=== PATIENT | female | born 1975 | race Caucasian/White ===

== ENCOUNTER 2017-11-05 18:01 | Emergency (ER) | payer MEDICAID, SELFPAY ==
[2017-11-05 18:02] VITALS: BP 150/97; PULSE 70; RESP 18; TEMP 36.5; O2SAT 97; BMI 28.7
--- NOTE | 2017-11-05 18:25 | ED.DCSUM_ITS ---
- ER Visit Summary Date of Service: 11/05/17 Chief Complaint: Postoperative infection History of Present Illness: The patient is a [address] Sheffield. She reports that she had a small cyst removed from her left upper eyelid [address] Leblanc. States that yesterday the area became red and painful. She describes a throbbing, tight pain that is 6 out of 10 in severity. Is relieved by ibuprofen and hot compresses. She has been placing Neosporin on the area. She reports that she has expressed a small amount of pus. She denies any change in her vision. No fever or chills. Physical Examination: Vitals: Stable. Afebrile. General: Well-nourished and well-developed. Head: Normocephalic atraumatic. Left eye: There is a 2 mm scab to the medial side of her upper eyelid with approximately 0.5 cm of surrounding erythema. There is no fluctuance or purulent drainage that I can express. She has no conjunctival injection. Extraocular motions are intact. Neck: Supple, no lymphadenopathy. No JVD. Nontender. Cardiovascular: Regular rate and rhythm. No murmurs. Respiratory: No respiratory distress. Clear to auscultation bilaterally. Abdominal: Soft, nontender, nondistended, normal bowel sounds. No guarding, rebound, or peritoneal signs. Back: Nontender. Extremities: Nontender, no edema. Skin: Normal color, no rash. Neurologic: Alert and oriented ?3. Cranial nerves II through XII are intact. Normal strength and sensation. Psych: Normal affect. Emergency Department Course and Treatment: Patient was given a dose of doxycycline and [place]. At this time I do not think me performing an I&D is in her best interest. Treatment Plan: She will be discharged on doxycycline and 12 [place]. Instructed to use warm compresses. Follow-up with Dr. Leblanc in 1-2 days for another exam. Disposition: To home in improved and stable condition. Impression: 1. 5 days status post left upper eyelid surgery. 2. Cellulitis left upper eyelid. This note was generated with [employer] dictation software. It may contain incorrect words, spelling, and punctuation that were not noted in review of the chart prior to signing ED Disposition - Plan for ED Patient: Disposition: Home or Assisted Living Chief Complaint: Eye Problem Instructions: ED Staph Infec Abx Tx Only Prescriptions: Hydrocodone Bitart/Apap 5-325 [[place] 5/325] 1 - 2 tablet PO Q4H PRN PRN 3 Days # 12 tablet PRN Reason: Pain Doxycycline Monohydrate 100 mg PO BID #20 capsule Additional Instructions: Follow-up with Dr. Leblanc as soon as possible for another exam.
[2017-11-05] MEDS: Doxycycline 100 MG CAPSULE PO (18:38)
[2017-11-05] MEDS: HYDROcodone Bitartrate/Apap 5/325 Tablet PO (18:38)
== END 2017-11-05 18:40 | disposition home or self-care (01) ==
LOC: ED 18:33
PROVIDERS: Emergency Provider Emergency Medicine; Family Provider Family Medicine; PCP Family Medicine
DX: T81.4XXA Infection following a procedure, initial encounter (principal); H00.034 Abscess of left upper eyelid; I10 Essential (primary) hypertension
CPT/HCPCS: 99283

== ENCOUNTER 2018-01-13 22:07 | Emergency (ER) | payer MEDICAID, SELFPAY ==
[2018-01-13 22:09] VITALS: BP 141/102; PULSE 72; RESP 19; TEMP 36.8; O2SAT 96; BMI 28.7
--- NOTE | 2018-01-13 22:13 | EKG12_ITS ---
Test Reason : CP Blood Pressure : / mmHG Vent. Rate : 072 BPM Atrial Rate : 072 BPM P-R Int : 186 ms QRS Dur : 078 ms QT Int : 380 ms P-R-T Axes : 041 006 028 degrees QTc Int : 416 ms Normal sinus rhythm Normal ECG Confirmed by SEAN EUBANKS, ARIANA ([id number]), supervising editor trailer REAGAN LENTZ ([id number]) on 01/15/2018 3:25:19 PM Referred By: MARILU SHER Confirmed By:ARIANA ESTRADA MD
--- NOTE | 2018-01-13 22:31 | ED.RN ---
PT'S BOYFRIEND ALERTED THIS NURSE THAT THE PT WANTED TO TALK.PT STATED THAT SHE WANTED TO LEAVE NOW.PT STATED THAT SINCE SHE HAS HAD THE EKG,SHE FEELS FINE AND DIDN'T WANT TO COME IN THE FIRST PLACE.PT ADAMANT THAT HER IV BE REMOVED AND SHE BE IS GOING HOME.IV DCD AND THEN PT GOT DRESSED AND LEFT WITH FAMILY.
== END 2018-01-13 22:34 | disposition left against medical advice (07) ==
LOC: ED 22:30
PROVIDERS: Emergency Provider Emergency Medicine; Family Provider Family Medicine; PCP Family Medicine
DX: R69 Illness, unspecified (principal)
CPT/HCPCS: 93005; 99283; J7030; A4216

== ENCOUNTER 2018-08-26 17:11 | Emergency (ER) | payer MEDICAID, SELFPAY ==
[2018-08-26 17:14] VITALS: BP 149/103; PULSE 72; RESP 16; TEMP 36.6; O2SAT 100; BMI 27.4
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
[2018-08-26 18:48] VITALS: BP 108/67; PULSE 52; RESP 16; O2SAT 99
[2018-08-26] MEDS: HYDROcodone Bitartrate/Apap 5/325 Tablet PO (18:49)
--- OUTSIDE RECORDS SUMMARY | 2018-10-08 16:37 | XMS RPT_ITS ---
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 BMI 28.17 kg/m? Last 4 Encounter Wt Readings: Date: Wt: 07/26/2018 72.1 kg (159 lb) 07/12/2018 70.9 kg (156 lb 3.2 oz) 04/23/2018 71.2 kg (157 lb) 01/29/2018 74.4 kg (164 lb) PHYSICAL EXAMINATION: General appearance: Well appearing, alert, in no acute distress, well-hydrated, well nourished. Skin: Skin color, texture, turgor normal, no suspicious rashes or lesions Head: Normocephalic, no masses, lesions, tenderness or abnormalities, scalp is tender Eyes: Anicteric sclera. Pupils are equally round and reactive to light. Extraocular movements are intact. Ears: External ears normal, canals clear Nose/Sinuses: Nares normal, septum midline, mucosa normal, no drainage or sinus tenderness Oropharynx: Lips, mucosa, and tongue normal, teeth and gums normal, oropharynx normal Neck: Supple, no adenopathy; thyroid symmetric, normal size, no bruits Back: Normal exam Lungs: Lungs clear to auscultation. No wheezing, rhonchi, rales Heart: RRR without murmur, gallop, or rubs. No ectopy Abdomen: Normal abdominal exam, Abdomen soft, non-tender. Bowel sounds normal. No masses, organomegaly Extremities: No deformities, edema, skin discoloration, clubbing or cyanosis. Good capillary refill. Musculoskeletal: No joint swelling, deformity, or tenderness Peripheral pulses: Normal Neuro: Gait normal. Reflexes normal and symmetric. Sensation grossly intact. PSYCH:Affect normal. Normal speech. Normal eye contact ASSESSMENT/PLAN: 1. Fibromyalgia - ICD9: 729.1, ICD10: M79.7 (primary diagnosis) - check labs. See pain management of her choosing. Avoid opiates. - SED RATE WESTERGREN - C-REACTIVE PROTEIN (CRP) - KELSY BY IFA SCREEN - RHEUMATOID FACTOR BL - CONSULT TO PAIN MGT ANESTHESIA 2. Convulsions, unspecified convulsion type (HCC) - ICD9: 780.39, ICD10: R56.9 - call if recurds. 3. Essential hypertension - ICD9: 401.9, ICD10: I10 - poor control - Recommended regular aerobic exercise. - Recommend home blood pressure monitoring, to bring results in on next visit - Goal of BP <130/80 - CBC + DIFF - BASIC METABOLIC PNL - HYDROCHLOROTHIAZIDE 12.5 MG CAPSULE 4. Hyperlipidemia with target LDL less than 130 - ICD9: 272.4, ICD10: E78.5 - stop statin. - CK CREATINE KINASE 5. Anxiety state - ICD9: 300.00, ICD10: F41.1 - follow progress. 6. Headache, unspecified headache type - ICD9: 784.0, ICD10: R51 - add hctz. Discussed risks and benefits of new medication with the patient. Advised them to call if any side effects or questions. - TIZANIDINE 4 MG TABLET - HYDROCHLOROTHIAZIDE 12.5 MG CAPSULE Guillermo Sheffield MD RTO in one month and prn. Referring Provider: GUILLERMO SHEFFIELD [[id number]] Allergies As of Date: 07/26/2018 (No Known Allergies) Date Reviewed: 07/26/2018 Reviewed by: Lilia Marrero Ma - Fully Assessed Reason for Visit: Headache [52] Primary Visit Diagnosis:Fibromyalgia [M79.7] Other Visit Diagnoses:Convulsions, unspecified convulsion type (HCC) [R56.9] Essential hypertension [I10] Hyperlipidemia with target LDL less than 130 [E78.5] Anxiety state [F41.1] Headache, unspecified headache type [R51] Order(s):CK CREATINE KINASE [SQCK] Order #: [id number] FUTURE SED RATE WESTERGREN [SQWSR] Order #: [id number] FUTURE C-REACTIVE PROTEIN (CRP) [SQCRP] Order #: [id number] FUTURE KELSY BY IFA SCREEN [SQANAIFS] Order #: [id number] FUTURE RHEUMATOID FACTOR BL [SQRF] Order #: [id number] FUTURE CONSULT TO PAIN MGT ANESTHESIA [20000106] Order #: [id number]: 1 CBC + DIFF [SQCBCDIF] Order #: [id number] FUTURE BASIC METABOLIC PNL [SQBMP] Order #: [id number] FUTURE tiZANidine (ZANAFLEX) 4 mg tabletTake 1 tablet by mouth every 8 hours as needed.Disp: 20 tabletRfl: 0 Hydrochlorothiazide 12.5 mg capsuleTake 1 capsule by mouth once daily.Disp: 30 capsuleRfl: 12 Prescriptions as of 07/26/2018 Sig: IBUPROFEN 600 MG TABLET Take 1 tablet by mouth every * METOPROLOL TARTRATE 50 MG TAB* Take 1 tablet by mouth twice * RANITIDINE 150 MG TABLET Take 150 mg by mouth as neede* CHOLECALCIFEROL (VITAMIN D3) * Take 1 capsule by mouth once * TIZANIDINE 4 MG TABLET Take 1 tablet by mouth every * HYDROCHLOROTHIAZIDE 12.5 MG C* Take 1 capsule by mouth once * Problem List As Of Date 07/26/2018 Noted Resolved Anxiety state [F41.1] INVALID FOR* Other acne [L70.8] INVALID FOR* Pain in joint, lower leg [M25.569] INVALID FOR* Backache, unspecified [M54.9] INVALID FOR* More... Hyperlipidemia with target LDL less than 130 [E*INVALID FOR* HTN (hypertension) [I10] INVALID FOR*04/04/2016 Marijuana use [F12.90] INVALID FOR* More... 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 Mostly on the right side. Patient c/o blurry vision, photosensitivity, nausea, vomiting. CHRONIC PAIN: Patient is currently taking: Ibuprofen 600 mg every 6 hours, Flexeril at night to help her sleep. Has previously seen specialist who concurs with diagnosis: Pain manaegment. Discussed abuse potential of medications: Yes. History of diversion or medications abuse: No. Have check oarrs report: Yes. Has signed a controlled substance agreement: No. Has done urine tox screens: No. Pain is rated (on scale of 1-10): off the scale, 15, I feel like I was hit by a truck. Alternatives to narcotic pain meds tried: pain block injections in the past for sciatica HTN: Patient is compliant with meds Yes Monitors bp at home: No. Denies side effects: Yes. Chest pain: No. Dyspnea: No. Edema: sometimes. Palpitations: On occasion. Syncope: No. Headache: Yes. Dizziness: No. BP KO READIN 158/112 54 2. 168/114 57 3. 154/93 54 4. 155/105 57 5. 140/97 66 6. ERROR/143 59 Prescriptions ordered this encounter Disp Refills Start End TIZANIDINE 4 MG TABLET 20 t* 0 07/26/2018 Route: ORAL Sig: Take 1 tablet by mouth every 8 hours as needed. HYDROCHLOROTHIAZIDE 12.5 MG CAPSULE 30 c* 12 07/26/2018 Route: ORAL Sig: Take 1 capsule by mouth once daily. Medications Discontinued During This Encounter COMPOUNDED PRESCRIPTION 1 Ea* 0 11/15/2017 07/26/2018 Class: Print RX Sig: Massage Therapy: Eval and Treat. Dx: Headaches (CT brain and xray cervical spine normal) Disc: Cost of medication escitalopram oxalate (LEXAPRO) 10 mg* 30 t* 2 02/01/2018 07/26/2018 Route: ORAL Sig: Take 1 tablet by mouth once daily. Disc: Side Effects simvastatin (ZOCOR) 10 mg tablet 90 t* 1 05/01/2018 07/26/2018 Cmt: Please consider 90 day supplies to promote better adherence Route: ORAL Sig: TAKE 1 TABLET BY MOUTH ONCE DAILY Disc: Reason for discontinue is not on file. cyclobenzaprine (FLEXERIL) 10 mg tab* 30 t* 0 07/25/2018 07/26/2018 Route: ORAL Sig: Take 1 tablet by mouth twice daily as needed. Disc: Reason for discontinue is not on file. Disposition: Return in about 2 weeks (around 08/09/2018). Follow-up and Disposition History Recorded Encounter Status:Closed by GUILLERMO SHEFFIELD MD on 07/26/18 [facility] Observed: 07/24/2018 Status: COMPLETED Source: [facility] 12:00 AM [facility] REPOSITORY Tele[facility] INDIGO MEIER ([id number]) 1975 F Date Time Provider Department 07/24/18 GUILLERMO SHEFFIELD [facility] During your visit today, we recorded the following information about you: Jeannie Plaza, RN, RN 07/24/2018 4:09 PM Signed Pt called to report that her daughter had head lice and was treated and now the pt has head lice. Pt wanting to know if pcp will call a Rx into [facility]. Guillermo Sheffield MD 07/24/2018 5:08 PM Signed rx called in Allergies As of Date: 07/24/2018 (No Known Allergies) Date Reviewed: 07/12/2018 Reviewed by: Moriah ([facility]) Kianna - Fully Assessed Reason for Visit: head lice [Other] Order(s):Malathion 0.5 % lotionApply 1 application to affected area one time only for 1 dose. As directedDisp: 59 mLRfl: 1 Prescriptions as of 07/24/2018 Sig: MALATHION 0.5 % LOTION Apply 1 application to affect* SIMVASTATIN 10 MG TABLET TAKE 1 TABLET BY MOUTH ONCE D* METOPROLOL TARTRATE 50 MG TAB* Take 1 tablet by mouth twice * ESCITALOPRAM 10 MG TABLET Take 1 tablet by mouth once d* RANITIDINE 150 MG TABLET Take 150 mg by mouth as neede* COMPOUNDED PRESCRIPTION Massage Therapy: Eval and Luis Felipe* CHOLECALCIFEROL (VITAMIN D3) * Take 1 capsule by mouth once * CYCLOBENZAPRINE 10 MG TABLET Take 1 tablet by mouth twice * Problem List As Of Date 07/24/2018 Noted Resolved Anxiety state [F41.1] INVALID FOR* Other acne [L70.8] INVALID FOR* Pain in joint, lower leg [M25.569] INVALID FOR* Backache, unspecified [M54.9] INVALID FOR* More... Hyperlipidemia with target LDL less than 130 [E*INVALID FOR* HTN (hypertension) [I10] INVALID FOR*04/04/2016 Marijuana use [F12.90] INVALID FOR* More... 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 As directed Encounter Status:Closed by GUILLERMO SHEFFIELD MD on 07/24/18 GROUP A STREP BY Collected: 07/12/2018 Status: F Source: PEN ARGYL PCR 4:14 PM [facility] REPOSITORY TYPE CODE TESTS RESULT OUT OF REFERENCE UNITS RANGE LAB GASSRC Throat Swab GAS Specimen Source LAB PCRGAS Negative for Group A Strep Group A PCR Streptococcus by PCR. Result Comment: This test was developed and its performance characteristics determined by [facility] [place] ([facility] It has not been cleared or approved by the FDA. [facility] is regulated under CLIA as qualified to perform high-complexity testing. This test is used for clinical purposes. It should not be regarded as inv estigational or for research. Performed By: #### GASPCR #### [facility] [address] [place], [place] [address] PROGRESS Observed: 07/12/2018 Status: COMPLETED Source: PEN [facility] 3:55 PM [facility] REPOSITORY HNO ID: [id number] Author: Moriah Jarrett) Kianna Service: (none) Author Type: Nurse Practitioner Type: Progress Notes Filed: 07/12/2018 4:16 PM Note Text: Subjective HPI Indigo Meier is a 42 year old female who presents with a sore throat for a week. Sick contacts include a daughter. She has not taken any medication. Review of Systems Constitutional: Negative. Negative for fever. HENT: Positive for sore throat. Negative for congestion. Respiratory: Positive for cough. Gastrointestinal: Positive for diarrhea. Negative for abdominal pain, nausea and vomiting. Skin: Negative for rash. BP 122/88 Pulse 67 Temp 36.8 ?C (98.3 ?F) (Left Tympanic) Resp 16 Wt 70.9 kg (156 lb 3.2 oz) SpO2 99% BMI 27.67 kg/m? PAST MEDICAL HISTORY Diagnosis Date - Anxiety generalized anxiety AND panic disorder (diagnosed by PCP) - Chronic back pain mild scolosis and sciatica AND SI joint locks up; was seeing pain management, now sees PCP - GERD (gastroesophageal reflux disease) - Hyperlipidemia 2011 - Hypertension - Marijuana use - Vertigo PAST SURGICAL HISTORY Procedure Laterality Date - LIGATE FALLOPIAN TUBE Tubal ligation - REMOVAL GALLBLADDER Cholecystectomy ALLERGIES Patient has no known allergies. MEDICATIONS simvastatin (ZOCOR) 10 mg tablet TAKE 1 TABLET BY MOUTH ONCE DAILY metoprolol tartrate, short acting, (LOPRESSOR) 50 mg tablet Take 1 tablet by mouth twice daily. escitalopram oxalate (LEXAPRO) 10 mg tablet Take 1 tablet by mouth once daily. ranitidine (ZANTAC) 150 mg tablet Take 150 mg by mouth as needed. COMPOUNDED PRESCRIPTION Massage Therapy: Eval and Treat. Dx: Headaches(CT brain and xray cervical spine normal) Cholecalciferol, Vitamin D3, 1,000 unit cap Take 1 capsule by mouth once daily. cyclobenzaprine (FLEXERIL) 10 mg tablet Take 1 tablet by mouth twice daily as needed. FAMILY HISTORY Problem Relation Age of Onset - Hypertension Mother - Hyperlipidemia Mother - None Father - Diabetes Brother - Hyperlipidemia Brother - Asthma Son - Allergies Son - Allergies Son - Cancer Sister 41 cervical, ?lymph - Diabetes Sister Social History Substance Use Topics - Smoking status: Never Smoker - Smokeless tobacco: Never Used - Alcohol use No Objective Physical Exam Constitutional: She is well-developed, well-nourished, and in no distress. HENT: Right Ear: Tympanic membrane, external ear and ear canal normal. Left Ear: Tympanic membrane, external ear and ear canal normal. Nose: Nose normal. No rhinorrhea. Mouth/Throat: Uvula is midline, oropharynx is clear and moist and mucous membranes are normal. Mucous membranes are not pale and not dry. No oropharyngeal exudate, posterior oropharyngeal edema or posterior oropharyngeal erythema. Eyes: Conjunctivae are normal. Right eye exhibits no discharge. Left eye exhibits no discharge. Cardiovascular: Normal rate, regular rhythm and normal heart sounds. Pulmonary/Chest: Effort normal and breath sounds normal. No respiratory distress. She has no wheezes. She has no rales. Neurological: She is alert. Skin: Skin is warm and dry. No rash noted. No erythema. Nursing note and vitals reviewed. ASSESSMENT/PLAN: 1. Sore throat - ICD9: 462, ICD10: J02.9 - suspect viral - Rapid Strep negative in the office today and Throat culture pending - Discussed supportive care treatment with fluids, rest and analgesia. - The patient may also use warm salt water gargles, throat lozenges and/or OTC throat spray as needed. - Call back if drooling, increased temperature, symptoms of dehydration and/or still sick in one week - RAPID STREP TEST B/O - GROUP A STREPTOCOCCUS BY PCR - Follow-up with your PCP in 3-5 days if symptoms have not improved or sooner if symptoms worsen - Discussed red flags and need for immediate medical evaluation if any occur. - Discussed supportive care treatment with fluids, rest and analgesia. - Discussed expected course of illness Moriah Hutchison APRN.[employer] OPERATOR CNOV Observed: 07/12/2018 Status: COMPLETED Source: PEN [facility]GYL 3:45 PM [facility] REPOSITORY Office Visit ([facility]) INDIGO MEIER ([id number]) 1975 F Date Time Provider Department 07/12/18 3:45 PM MORIAH HUTCHISON ([facility]) [facility] During your visit today, we recorded the following information about you: Temperature Pulse Respiration Blood pressure 98.3 degrees 67/minute 16/minute 122/88 Weight 70.9 kg Moriah Hutchison APRN.CNP 07/12/2018 4:16 PM Signed Subjective HPI Indigo Meier is a 42 year old female who presents with a sore throat for a week. Sick contacts include a daughter. She has not taken any medication. Review of Systems Constitutional: Negative. Negative for fever. HENT: Positive for sore throat. Negative for congestion. Respiratory: Positive for cough. Gastrointestinal: Positive for diarrhea. Negative for abdominal pain, nausea and vomiting. Skin: Negative for rash. BP 122/88 Pulse 67 Temp 36.8 ?C (98.3 ?F) (Left Tympanic) Resp 16 Wt 70.9 kg (156 lb 3.2 oz) SpO2 99% BMI 27.67 kg/m? PAST MEDICAL HISTORY Diagnosis Date - Anxiety generalized anxiety AND panic disorder (diagnosed by PCP) - Chronic back pain mild scolosis and sciatica AND SI joint locks up; was seeing pain management, now sees PCP - GERD (gastroesophageal reflux disease) - Hyperlipidemia 2011 - Hypertension - Marijuana use - Vertigo PAST SURGICAL HISTORY Procedure Laterality Date - LIGATE FALLOPIAN TUBE Tubal ligation - REMOVAL GALLBLADDER Cholecystectomy ALLERGIES Patient has no known allergies. MEDICATIONS simvastatin (ZOCOR) 10 mg tablet TAKE 1 TABLET BY MOUTH ONCE DAILY metoprolol tartrate, short acting, (LOPRESSOR) 50 mg tablet Take 1 tablet by mouth twice daily. escitalopram oxalate (LEXAPRO) 10 mg tablet Take 1 tablet by mouth once daily. ranitidine (ZANTAC) 150 mg tablet Take 150 mg by mouth as needed. COMPOUNDED PRESCRIPTION Massage Therapy: Eval and Treat. Dx: Headaches(CT brain and xray cervical spine normal) Cholecalciferol, Vitamin D3, 1,000 unit cap Take 1 capsule by mouth once daily. cyclobenzaprine (FLEXERIL) 10 mg tablet Take 1 tablet by mouth twice daily as needed. FAMILY HISTORY Problem Relation Age of Onset - Hypertension Mother - Hyperlipidemia Mother - None Father - Diabetes Brother - Hyperlipidemia Brother - Asthma Son - Allergies Son - Allergies Son - Cancer Sister 41 cervical, ?lymph - Diabetes Sister Social History Substance Use Topics - Smoking status: Never Smoker - Smokeless tobacco: Never Used - Alcohol use No Objective Physical Exam Constitutional: She is well-developed, well-nourished, and in no distress. HENT: Right Ear: Tympanic membrane, external ear and ear canal normal. Left Ear: Tympanic membrane, external ear and ear canal normal. Nose: Nose normal. No rhinorrhea. Mouth/Throat: Uvula is midline, oropharynx is clear and moist and mucous membranes are normal. Mucous membranes are not pale and not dry. No oropharyngeal exudate, posterior oropharyngeal edema or posterior oropharyngeal erythema. Eyes: Conjunctivae are normal. Right eye exhibits no discharge. Left eye exhibits no discharge. Cardiovascular: Normal rate, regular rhythm and normal heart sounds. Pulmonary/Chest: Effort normal and breath sounds normal. No respiratory distress. She has no wheezes. She has no rales. Neurological: She is alert. Skin: Skin is warm and dry. No rash noted. No erythema. Nursing note and vitals reviewed. ASSESSMENT/PLAN: 1. Sore throat - ICD9: 462, ICD10: J02.9 - suspect viral - Rapid Strep negative in the office today and Throat culture pending - Discussed supportive care treatment with fluids, rest and analgesia. - The patient may also use warm salt water gargles, throat lozenges and/or OTC throat spray as needed. - Call back if drooling, increased temperature, symptoms of dehydration and/or still sick in one week - RAPID STREP TEST B/O - GROUP A STREPTOCOCCUS BY PCR - Follow-up with your PCP in 3-5 days if symptoms have not improved or sooner if symptoms worsen - Discussed red flags and need for immediate medical evaluation if any occur. - Discussed supportive care treatment with fluids, rest and analgesia. - Discussed expected course of illness MIGUEL Haq APRN.CNP 07/12/2018 4:09 PM Signed ASSESSMENT/PLAN: 1. Sore throat - ICD9: 462, ICD10: J02.9 - suspect viral - Rapid Strep negative in the office today and Throat culture pending - Discussed supportive care treatment with fluids, rest and analgesia. - The patient may also use warm salt water gargles, throat lozenges and/or OTC throat spray as needed. - Call back if drooling, increased temperature, symptoms of dehydration and/or still sick in one week - RAPID STREP TEST B/O - GROUP A STREPTOCOCCUS BY PCR - Follow-up with your PCP in 3-5 days if symptoms have not improved or sooner if symptoms worsen - Discussed red flags and need for immediate medical evaluation if any occur. - Discussed supportive care treatment with fluids, rest and analgesia. - Discussed expected course of illness Moriah Hutchison APRN.CNP SORE THROAT INSTRUCTIONS SORE THROAT OVERVIEW - Sore throat is a common problem during childhood, and is usually the result of a bacterial or viral infection. Although sore throat usually resolves without complications, it sometimes requires treatment with an antibiotic. There are some less common causes of sore throat that are serious or even life-threatening. This topic will discuss the most common causes and treatments of sore throat in children, as well as the warning signs of more serious conditions. SORE THROAT CAUSES - The most likely cause of a child's sore throat depends upon the child's age, the season, and the geographic area. While viruses are the most common cause of sore throat, bacteria are another common cause. Bacteria and viruses are spread from one person to another through hand contact. Hands get contaminated when the sick individual touches their nose or mouth and then touches another person directly (mqwn-uv-esrd contact) or indirectly (pdda-kg-xvggug, such as doorknob, telephone, toys). It is difficult to determine the cause of sore throat based upon symptoms alone; an examination and laboratory test are recommended in most cases Viruses - There are many viruses that can cause pain and swelling of the throat. The most common include viruses that cause sore throat as part of an upper respiratory infection, such as the common cold. Other viruses that cause sore throat include influenza, adenovirus, and Stevo-Mckeon virus (the cause of mononucleosis). Symptoms - Symptoms that may occur with a viral infection can include a runny nose and congestion, irritation or redness of the eyes, cough, hoarseness, soreness in the roof of the mouth, a skin rash, or diarrhea. In addition, children with viral infections may have a fever and may feel miserable. A high fever does not necessarily mean that the child has a bacterial infection. Group A streptococcus - Group A streptococcus (GAS) is the name of the bacterium that causes strep throat. Although other bacteria can cause a sore throat, GAS is the most common bacterial cause; up to 30 percent of children with a sore throat will have GAS. Strep throat usually occurs during the winter and early spring, and is most common in school-age children and their younger siblings. Symptoms - Symptoms of strep throat in children older than 3 years often develop suddenly and include fever (temperature ?100.4?F or 38?C), headache, abdominal pain, nausea, and vomiting. Other symptoms can include swollen glands in the neck, white patches of pus in the back or sides of the throat, small red spots on the roof of the mouth, and swelling of the uvula. A cough and cold are not commonly seen in children with strep throat. Strep throat is uncommon in children younger than age 2 to 3 years. However, GAS infection can occur in younger children, and may cause a runny nose and congestion that is prolonged, low-grade fever (?101?F or 38.3?C), and tender glands in the neck. Infants younger than 1 year may be fussy and have a decreased appetite and low-grade fever. SORE THROAT TREATMENT - The treatment of sore throat depends upon the cause; strep throat is treated with an antibiotic while viral pharyngitis is treated with rest, pain relievers, and other measures to reduce symptoms. Strep throat - Strep throat is usually treated with an antibiotic, such as penicillin, or an antibiotic similar to penicillin (eg, amoxicillin). Children who are allergic to penicillin will be given an alternate antibiotic. The antibiotic is usually given in pill or liquid form two or three times per day. A one-time injection is also available, and may be recommended if a child is unwilling to take an oral medication. After completing 24 hours of antibiotics, the child is no longer contagious and may return to school. Symptoms usually improve within 1 to 2 days. However, it is important for the child to finish the entire course of treatment (usually 10 days). If a child does not begin to improve or worsens within 3 days, the child should be reevaluated. Throat pain can be treated with a non-prescription pain medication, if needed. (See 'Pain medications' below.) In addition, parents should monitor their child for dehydration, which can develop if the child is not willing to drink or eat due to a sore throat. (See 'Monitor for dehydration' below.) Viral throat pain - Sore throat caused by viral infections usually last 4 to 5 days. During this time, treatments to reduce pain may be helpful but will not help to eliminate the virus. Antibiotics do not improve throat pain caused by a virus and are not recommended. A child with a viral infection is usually allowed to return to school when there has been no fever for 24 hours and the child feels well enough to pay attention. Pain medications - Throat pain can be treated with a mild pain reliever such as acetaminophen (Tylenol?) or a non-steroidal anti-inflammatory agent such as ibuprofen (Motrin?). These medications should be dosed according to weight, not age. Aspirin is not recommended for children <18 years due to the risk of a potentially serious condition known as Christiano syndrome. Monitor for dehydration - Some children with a sore throat are reluctant to drink or eat due to pain. Drinking less fluid can lead to dehydration. To reduce the risk of dehydration, parents can offer warm or cold liquids. (See 'Other interventions' below.) Signs and symptoms of mild dehydration include a slightly dry mouth, increased thirst, and decreased urine output (one wet diaper or void in six hours). Signs of moderate or severe dehydration include decreased urine output (less than one wet diaper or void in six hours), lack of tears when crying, dry mouth, and sunken eyes. A child who is moderately or severely dehydrated should be evaluated by a healthcare provider as soon as possible to determine if treatment is needed. Oral rinses- Salt-water gargles are an old stand-by for relief of throat pain. It is not clear if this treatment is effective, but it is unlikely to be harmful. Most recipes suggest 1/4 to 1/2 teaspoon of salt per cup (8 ounces) of warm water. The water should be gargled and then spit out (not swallowed). Children younger than six to eight years are not able to gargle properly. An oral rinse composed of equal parts of diphenhydramine (Benadryl? liquid) and Maalox? (magnesium hydroxide, aluminum hydroxide, and simethicone) may be helpful for pain caused by a sore mouth or ulcers in the mouth. Children older than six to eight years may swish and spit (not swallow) the mixture. Sprays - Sprays containing topical anesthetics are available to treat sore throat. However, such sprays are no more effective than sucking on hard candy. In addition, a common anesthetic ingredient, benzocaine, can cause allergic reactions. We do not recommend throat sprays for children. Lozenges - A variety of medicated throat lozenges are available to relieve dryness or pain. However, it is not clear that lozenges work any better than hard candy. We do not recommend throat lozenges for children, especially children younger than 3 to 4 years, who can choke. Sucking on hard candy may provide some relief for children older than 3 to 4 years, who are not at risk for choking. Other interventions - Other interventions include sipping warm beverages (eg, honey or lemon tea, chicken soup), cold beverages, or eating cold or frozen desserts (eg, ice cream, popsicles). These treatments are safe for children. Honey should not be given to children younger than 12 months due to the potential risk of botulism poisoning. Alternative therapies - Health food stores, vitamin outlets, and Internet Web sites offer alternative treatments for relief of sore throat pain. We do not recommend these treatments due to the risks of contamination with pesticides/herbicides, inaccurate labeling and dosing information, and a lack of studies showing that these treatments are safe and effective. SORE THROAT PREVENTION - Hand washing is an essential and highly effective way to prevent the spread of infection. Hands should be wet with water and plain soap, and rubbed together for 15 to 30 seconds. Special attention should be paid to the fingernails, between the fingers, and the wrists. Hands should be rinsed thoroughly, and dried with a single use towel. Alcohol-based hand rubs are a good alternative for disinfecting hands if a sink is not available. Hand rubs should be spread over the entire surface of hands, fingers, and wrists until dry, and may be used several times. These rubs can be used repeatedly without skin irritation or loss of effectiveness. Hand rubs are available as a liquid or wipe in small, portable sizes that are easy to carry in a pocket or handbag. When a sink is available, visibly soiled hands should be washed with soap and water. Hands should be washed after coughing, blowing the nose or sneezing. While it is not always possible to limit contact with a person who is sick, avoiding touching the eyes, nose, or mouth after direct contact can help to prevent the spread of infection. In addition, tissues should be used to cover the mouth when sneezing or coughing. These used tissues should be disposed of promptly. Sneezing/coughing into the sleeve of one's clothing (at the inner elbow) is another means of containing sprays of saliva and secretions and has the advantage of not contaminating the hands. WHEN TO SEEK HELP - Parents of a child with throat pain and one or more of the following should contact their healthcare provider immediately: Difficulty swallowing or breathing Excessive drooling in an infant or young child Temperature ?101?F or 38.3?C Swelling of the neck Child is unable or unwilling to drink or eat Voice sounds muffled Child has a stiff neck or difficulty opening the mouth WHERE TO GET MORE INFORMATION - Your child's healthcare provider is the best source of information for questions and concerns related to your child's medical problem. This article will be updated as needed every four months on our web site ([email or web address]). Information below was obtained from Up to date Last literature review version 19.2: January 2011 This topic last updated: May 18, 2010 Referring Provider: SELF [200] Allergies As of Date: 07/12/2018 (No Known Allergies) Date Reviewed: 07/12/2018 Reviewed by: Moriah ([facility]) Kianna - Fully Assessed Reason for Visit: Sore Throat [200] Primary Visit Diagnosis:Sore throat [J02.9] Order(s):RAPID STREP TEST B/O [8763525] Order #: [id number] GROUP A STREPTOCOCCUS BY PCR [SQGASPCR] Order #: [id number] Prescriptions as of 07/12/2018 Sig: SIMVASTATIN 10 MG TABLET TAKE 1 TABLET BY MOUTH ONCE D* METOPROLOL TARTRATE 50 MG TAB* Take 1 tablet by mouth twice * ESCITALOPRAM 10 MG TABLET Take 1 tablet by mouth once d* RANITIDINE 150 MG TABLET Take 150 mg by mouth as neede* COMPOUNDED PRESCRIPTION Massage Therapy: Eval and Luis Felipe* CHOLECALCIFEROL (VITAMIN D3) * Take 1 capsule by mouth once * CYCLOBENZAPRINE 10 MG TABLET Take 1 tablet by mouth twice * Problem List As Of Date 07/12/2018 Noted Resolved Anxiety state [F41.1] INVALID FOR* Other acne [L70.8] INVALID FOR* Pain in joint, lower leg [M25.569] INVALID FOR* Backache, unspecified [M54.9] INVALID FOR* More... Hyperlipidemia with target LDL less than 130 [E*INVALID FOR* HTN (hypertension) [I10] INVALID FOR*04/04/2016 Marijuana use [F12.90] INVALID FOR* More... 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 Sore throat - ICD9: 462, ICD10: J02.9 - suspect viral - Rapid Strep negative in the office today and Throat culture pending - Discussed supportive care treatment with fluids, rest and analgesia. - The patient may also use warm salt water gargles, throat lozenges and/or OTC throat spray as needed. - Call back if drooling, increased temperature, symptoms of dehydration and/or still sick in one week - RAPID STREP TEST B/O - GROUP A STREPTOCOCCUS BY PCR - Follow-up with your PCP in 3-5 days if symptoms have not improved or sooner if symptoms worsen - Discussed red flags and need for immediate medical evaluation if any occur. - Discussed supportive care treatment with fluids, rest and analgesia. - Discussed expected course of illness Moriah Hutchison APRN.[employer] SORE THROAT INSTRUCTIONS SORE THROAT OVERVIEW - Sore throat is a common problem during childhood, and is usually the result of a bacterial or viral infection. Although sore throat usually resolves without complications, it sometimes requires treatment with an antibiotic. There are some less common causes of sore throat that are serious or even life-threatening. This topic will discuss the most common causes and treatments of sore throat in children, as well as the warning signs of more serious conditions. SORE THROAT CAUSES - The most likely cause of a child's sore throat depends upon the child's age, the season, and the geographic area. While viruses are the most common cause of sore throat, bacteria are another common cause. Bacteria and viruses are spread from one person to another through hand contact. Hands get contaminated when the sick individual touches their nose or mouth and then touches another person directly (xuxf-uq-fyuf contact) or indirectly (xskq-bp-vuxjev, such as doorknob, telephone, toys). It is difficult to determine the cause of sore throat based upon symptoms alone; an examination and laboratory test are recommended in most cases Viruses - There are many viruses that can cause pain and swelling of the throat. The most common include viruses that cause sore throat as part of an upper respiratory infection, such as the common cold. Other viruses that cause sore throat include influenza, adenovirus, and Stevo-Mckeon virus (the cause of mononucleosis). Symptoms - Symptoms that may occur with a viral infection can include a runny nose and congestion, irritation or redness of the eyes, cough, hoarseness, soreness in the roof of the mouth, a skin rash, or diarrhea. In addition, children with viral infections may have a fever and may feel miserable. A high fever does not necessarily mean that the child has a bacterial infection. Group A streptococcus - Group A streptococcus (GAS) is the name of the bacterium that causes strep throat. Although other bacteria can cause a sore throat, GAS is the most common bacterial cause; up to 30 percent of children with a sore throat will have GAS. Strep throat usually occurs during the winter and early spring, and is most common in school-age children and their younger siblings. Symptoms - Symptoms of strep throat in children older than 3 years often develop suddenly and include fever (temperature ?100.4?F or 38?C), headache, abdominal pain, nausea, and vomiting. Other symptoms can include swollen glands in the neck, white patches of pus in the back or sides of the throat, small red spots on the roof of the mouth, and swelling of the uvula. A cough and cold are not commonly seen in children with strep throat. Strep throat is uncommon in children younger than age 2 to 3 years. However, GAS infection can occur in younger children, and may cause a runny nose and congestion that is prolonged, low-grade fever (?101?F or 38.3?C), and tender glands in the neck. Infants younger than 1 year may be fussy and have a decreased appetite and low-grade fever. SORE THROAT TREATMENT - The treatment of sore throat depends upon the cause; strep throat is treated with an antibiotic while viral pharyngitis is treated with rest, pain relievers, and other measures to reduce symptoms. Strep throat - Strep throat is usually treated with an antibiotic, such as penicillin, or an antibiotic similar to penicillin (eg, amoxicillin). Children who are allergic to penicillin will be given an alternate antibiotic. The antibiotic is usually given in pill or liquid form two or three times per day. A one-time injection is also available, and may be recommended if a child is unwilling to take an oral medication. After completing 24 hours of antibiotics, the child is no longer contagious and may return to school. Symptoms usually improve within 1 to 2 days. However, it is important for the child to finish the entire course of treatment (usually 10 days). If a child does not begin to improve or worsens within 3 days, the child should be reevaluated. Throat pain can be treated with a non-prescription pain medication, if needed. (See 'Pain medications' below.) In addition, parents should monitor their child for dehydration, which can develop if the child is not willing to drink or eat due to a sore throat. (See 'Monitor for dehydration' below.) Viral throat pain - Sore throat caused by viral infections usually last 4 to 5 days. During this time, treatments to reduce pain may be helpful but will not help to eliminate the virus. Antibiotics do not improve throat pain caused by a virus and are not recommended. A child with a viral infection is usually allowed to return to school when there has been no fever for 24 hours and the child feels well enough to pay attention. Pain medications - Throat pain can be treated with a mild pain reliever such as acetaminophen (Tylenol?) or a non-steroidal anti-inflammatory agent such as ibuprofen (Motrin?). These medications should be dosed according to weight, not age. Aspirin is not recommended for children <18 years due to the risk of a potentially serious condition known as Christiano syndrome. Monitor for dehydration - Some children with a sore throat are reluctant to drink or eat due to pain. Drinking less fluid can lead to dehydration. To reduce the risk of dehydration, parents can offer warm or cold liquids. (See 'Other interventions' below.) Signs and symptoms of mild dehydration include a slightly dry mouth, increased thirst, and decreased urine output (one wet diaper or void in six hours). Signs of moderate or severe dehydration include decreased urine output (less than one wet diaper or void in six hours), lack of tears when crying, dry mouth, and sunken eyes. A child who is moderately or severely dehydrated should be evaluated by a healthcare provider as soon as possible to determine if treatment is needed. Oral rinses- Salt-water gargles are an old stand-by for relief of throat pain. It is not clear if this treatment is effective, but it is unlikely to be harmful. Most recipes suggest 1/4 to 1/2 teaspoon of salt per cup (8 ounces) of warm water. The water should be gargled and then spit out (not swallowed). Children younger than six to eight years are not able to gargle properly. An oral rinse composed of equal parts of diphenhydramine (Benadryl? liquid) and Maalox? (magnesium hydroxide, aluminum hydroxide, and simethicone) may be helpful for pain caused by a sore mouth or ulcers in the mouth. Children older than six to eight years may swish and spit (not swallow) the mixture. Sprays - Sprays containing topical anesthetics are available to treat sore throat. However, such sprays are no more effective than sucking on hard candy. In addition, a common anesthetic ingredient, benzocaine, can cause allergic reactions. We do not recommend throat sprays for children. Lozenges - A variety of medicated throat lozenges are available to relieve dryness or pain. However, it is not clear that lozenges work any better than hard candy. We do not recommend throat lozenges for children, especially children younger than 3 to 4 years, who can choke. Sucking on hard candy may provide some relief for children older than 3 to 4 years, who are not at risk for choking. Other interventions - Other interventions include sipping warm beverages (eg, honey or lemon tea, chicken soup), cold beverages, or eating cold or frozen desserts (eg, ice cream, popsicles). These treatments are safe for children. Honey should not be given to children younger than 12 months due to the potential risk of botulism poisoning. Alternative therapies - Sensor[employer] food stores, vitamin outlets, and Internet Web sites offer alternative treatments for relief of sore throat pain. We do not recommend these treatments due to the risks of contamination with pesticides/herbicides, inaccurate labeling and dosing information, and a lack of studies showing that these treatments are safe and effective. SORE THROAT PREVENTION - Hand washing is an essential and highly effective way to prevent the spread of infection. Hands should be wet with water and plain soap, and rubbed together for 15 to 30 seconds. Special attention should be paid to the fingernails, between the fingers, and the wrists. Hands should be rinsed thoroughly, and dried with a single use towel. Alcohol-based hand rubs are a good alternative for disinfecting hands if a sink is not available. Hand rubs should be spread over the entire surface of hands, fingers, and wrists until dry, and may be used several times. These rubs can be used repeatedly without skin irritation or loss of effectiveness. Hand rubs are available as a liquid or wipe in small, portable sizes that are easy to carry in a pocket or handbag. When a sink is available, visibly soiled hands should be washed with soap and water. Hands should be washed after coughing, blowing the nose or sneezing. While it is not always possible to limit contact with a person who is sick, avoiding touching the eyes, nose, or mouth after direct contact can help to prevent the spread of infection. In addition, tissues should be used to cover the mouth when sneezing or coughing. These used tissues should be disposed of promptly. Sneezing/coughing into the sleeve of one's clothing (at the inner elbow) is another means of containing sprays of saliva and secretions and has the advantage of not contaminating the hands. WHEN TO SEEK HELP - Parents of a child with throat pain and one or more of the following should contact their healthcare provider immediately: Difficulty swallowing or breathing Excessive drooling in an or young child Temperature ?101?F or 38.3?C Swelling of the neck Child is unable or unwilling to drink or eat Voice sounds muffled Child has a stiff neck or difficulty opening the mouth WHERE TO GET MORE INFORMATION - Your child's healthcare provider is the best source of information for questions and concerns related to your child's medical problem. This article will be updated as needed every four months on our web site ([email or web address]). Information below was obtained from Up to date Last literature review version 19.2: January 2011 This topic last updated: May 18, 2010 Encounter Status:Closed by MORIAH HUTCHISON on 07/12/18 PROGRESS Observed: 04/23/2018 Status: COMPLETED Source: PEN ARGYL 6:28 PM [facility] [place] REPOSITORY O ID: [id number] Author: Allie Santiago Service: (none) Author Type: Nurse Practitioner Type: Progress Notes Filed: 04/23/2018 6:53 PM Note Text: Subjective HPI HPI Indigo Meier is a 42 year old female who presents today for CC of sternum tenderness/pain, left clavicle plain/tenderness. This started 1 week ago, started gradually while exercising. Has tried ibuprofen 400 mg sporadically. Symptoms are worsened by rom of arms/chest. Risk factors recently returned to exercising. No direct injury to area. Denies Numbness/tingling of bilateral upper extremities. .Patient presents with: Musculoskeletal Problem: x 1 week sternum pain and possible swelling PAST MEDICAL HISTORY Diagnosis Date - Anxiety generalized anxiety AND panic disorder (diagnosed by PCP) - Chronic back pain mild scolosis and sciatica AND SI joint locks up; was seeing pain management, now sees PCP - GERD (gastroesophageal reflux disease) - Hyperlipidemia 2011 - Hypertension - Marijuana use - Vertigo PAST SURGICAL HISTORY Procedure Laterality Date - LIGATE FALLOPIAN TUBE Tubal ligation - REMOVAL GALLBLADDER Cholecystectomy ALLERGIES Patient has no known allergies. MEDICATIONS simvastatin (ZOCOR) 10 mg tablet Take 1 tablet by mouth once daily. ibuprofen (MOTRIN) 600 mg tablet Take 1 tablet by mouth every 6 hours as needed. escitalopram oxalate (LEXAPRO) 10 mg tablet Take 1 tablet by mouth once daily. ranitidine (ZANTAC) 150 mg tablet Take 150 mg by mouth as needed. COMPOUNDED PRESCRIPTION Massage Therapy: Eval and Treat. Dx: Headaches(CT brain and xray cervical spine normal) metoprolol tartrate, short acting, (LOPRESSOR) 50 mg tablet Take 1 tablet by mouth twice daily. Cholecalciferol, Vitamin D3, 1,000 unit cap Take 1 capsule by mouth once daily. cyclobenzaprine (FLEXERIL) 10 mg tablet Take 1 tablet by mouth twice daily as needed. FAMILY HISTORY Problem Relation Age of Onset - Hypertension Mother - Hyperlipidemia Mother - None Father - Diabetes Brother - Hyperlipidemia Brother - Asthma Son - Allergies Son - Allergies Son - Cancer Sister 41 cervical, ?lymph - Diabetes Sister Social History Substance Use Topics - Smoking status: Never Smoker - Smokeless tobacco: Never Used - Alcohol use No Review of Systems Constitutional: Negative for chills and fever. Respiratory: Negative for cough, shortness of breath and wheezing. Cardiovascular: Negative for chest pain. Skin: Negative for itching and rash. Objective Blood pressure 122/72, pulse 78, temperature 36.3 ?C (97.3 ?F), resp. rate 16, weight 71.2 kg (157 lb). Physical Exam Constitutional: She is oriented to person, place, and time and well-developed, well-nourished, and in no distress. Non-toxic appearance. She does not have a sickly appearance. No distress. HENT: Head: Normocephalic and atraumatic. Cardiovascular: Normal rate, regular rhythm, S1 normal, S2 normal and normal heart sounds. Pulmonary/Chest: Effort normal and breath sounds normal. Neurological: She is alert and oriented to person, place, and time. Gait normal. Skin: She is not diaphoretic. ASSESSMENT/PLAN: 1. Pain of sternum - ICD9: 786.50, ICD10: R07.89 (primary diagnosis) -use medication as prescribed -follow up if symptoms persist, worsen, change -will call results of xray -If you experience chest pain/shortness of breath go to ER - IBUPROFEN 600 MG TABLET - XR STERNUM 2V MARIN/LAT 2. Clavicle pain - ICD9: 733.90, ICD10: M89.8X1 -use medication as prescribed -follow up if symptoms persist, worsen, change -will call results of xray - IBUPROFEN 600 MG TABLET - XR CLAVICLE 2V LT Prescription instructions reviewed with patient as applicable. Patient advised if symptoms do not improve or if symptoms worsen sooner, to contact the office for further evaluation by their primary care physician. Potential red flag symptoms discussed with the patient. Reviewed appropriate action plan to take if red flag symptoms occur. Patient agreeable to treatment plan. Allie Santiago APRN.CNP CNOV Observed: 04/23/2018 Status: COMPLETED Source: PEN ARGYL 6:15 PM [facility] REPOSITORY Office Visit (WSTR) INDIGO MEIER ([id number]) 1975 F Date Time Provider Department 04/23/18 6:15 PM ALLIE SANTIAGO ([facility]) [facility] During your visit today, we recorded the following information about you: Temperature Pulse Respiration Blood pressure 97.3 degrees 78/minute 16/minute 122/72 Weight 71.2 kg Allie Santiago APRN.CNP 04/23/2018 6:53 PM Signed Subjective HPI HPI Indigo Meier is a 42 year old female who presents today for CC of sternum tenderness/pain, left clavicle plain/tenderness. This started 1 week ago, started gradually while exercising. Has tried ibuprofen 400 mg sporadically. Symptoms are worsened by rom of arms/chest. Risk factors recently returned to exercising. No direct injury to area. Denies Numbness/tingling of bilateral upper extremities. .Patient presents with: Musculoskeletal Problem: x 1 week sternum pain and possible swelling PAST MEDICAL HISTORY Diagnosis Date - Anxiety generalized anxiety AND panic disorder (diagnosed by PCP) - Chronic back pain mild scolosis and sciatica AND SI joint locks up; was seeing pain management, now sees PCP - GERD (gastroesophageal reflux disease) - Hyperlipidemia 2011 - Hypertension - Marijuana use - Vertigo PAST SURGICAL HISTORY Procedure Laterality Date - LIGATE FALLOPIAN TUBE Tubal ligation - REMOVAL GALLBLADDER Cholecystectomy ALLERGIES Patient has no known allergies. MEDICATIONS simvastatin (ZOCOR) 10 mg tablet Take 1 tablet by mouth once daily. ibuprofen (MOTRIN) 600 mg tablet Take 1 tablet by mouth every 6 hours as needed. escitalopram oxalate (LEXAPRO) 10 mg tablet Take 1 tablet by mouth once daily. ranitidine (ZANTAC) 150 mg tablet Take 150 mg by mouth as needed. COMPOUNDED PRESCRIPTION Massage Therapy: Eval and Treat. Dx: Headaches(CT brain and xray cervical spine normal) metoprolol tartrate, short acting, (LOPRESSOR) 50 mg tablet Take 1 tablet by mouth twice daily. Cholecalciferol, Vitamin D3, 1,000 unit cap Take 1 capsule by mouth once daily. cyclobenzaprine (FLEXERIL) 10 mg tablet Take 1 tablet by mouth twice daily as needed. FAMILY HISTORY Problem Relation Age of Onset - Hypertension Mother - Hyperlipidemia Mother - None Father - Diabetes Brother - Hyperlipidemia Brother - Asthma Son - Allergies Son - Allergies Son - Cancer Sister 41 cervical, ?lymph - Diabetes Sister Social History Substance Use Topics - Smoking status: Never Smoker - Smokeless tobacco: Never Used - Alcohol use No Review of Systems Constitutional: Negative for chills and fever. Respiratory: Negative for cough, shortness of breath and wheezing. Cardiovascular: Negative for chest pain. Skin: Negative for itching and rash. Objective Blood pressure 122/72, pulse 78, temperature 36.3 ?C (97.3 ?F), resp. rate 16, weight 71.2 kg (157 lb). Physical Exam Constitutional: She is oriented to person, place, and time and well-developed, well-nourished, and in no distress. Non-toxic appearance. She does not have a sickly appearance. No distress. HENT: Head: Normocephalic and atraumatic. Cardiovascular: Normal rate, regular rhythm, S1 normal, S2 normal and normal heart sounds. Pulmonary/Chest: Effort normal and breath sounds normal. Neurological: She is alert and oriented to person, place, and time. Gait normal. Skin: She is not diaphoretic. ASSESSMENT/PLAN: 1. Pain of sternum - ICD9: 786.50, ICD10: R07.89 (primary diagnosis) -use medication as prescribed -follow up if symptoms persist, worsen, change -will call results of xray -If you experience chest pain/shortness of breath go to ER - IBUPROFEN 600 MG TABLET - XR STERNUM 2V MARIN/LAT 2. Clavicle pain - ICD9: 733.90, ICD10: M89.8X1 -use medication as prescribed -follow up if symptoms persist, worsen, change -will call results of xray - IBUPROFEN 600 MG TABLET - XR CLAVICLE 2V LT Prescription instructions reviewed with patient as applicable. Patient advised if symptoms do not improve or if symptoms worsen sooner, to contact the office for further evaluation by their primary care physician. Potential red flag symptoms discussed with the patient. Reviewed appropriate action plan to take if red flag symptoms occur. Patient agreeable to treatment plan. Allie Santiago APRN.SUNSHINE Santiago APRN.CNP 04/23/2018 6:45 PM Addendum ASSESSMENT/PLAN: 1. Pain of sternum - ICD9: 786.50, ICD10: R07.89 (primary diagnosis) -use medication as prescribed -follow up if symptoms persist, worsen, change -will call results of xray - IBUPROFEN 600 MG TABLET - XR STERNUM 2V MARIN/LAT 2. Clavicle pain - ICD9: 733.90, ICD10: M89.8X1 -use medication as prescribed -follow up if symptoms persist, worsen, change -will call results of xray - IBUPROFEN 600 MG TABLET - XR CLAVICLE 2V LT Referring Provider: SELF [[id number]] Allergies As of Date: 04/23/2018 (No Known Allergies) Date Reviewed: 04/23/2018 Reviewed by: Allie (Sunshine) - Fully Assessed Reason for Visit: Musculoskeletal Problem [69] Cmt: x 1 week sternum pain and possible swelling Primary Visit Diagnosis:Pain of sternum [R07.89] Other Visit Diagnosis:Clavicle pain [M89.8X1] Order(s):ibuprofen (MOTRIN) 600 mg tabletTake 1 tablet by mouth every 6 hours as needed for Pain for up to 7 days.Disp: 21 tabletRfl: 0 XR STERNUM 2V MARIN/LAT [[id number]] Order #: [id number] XR CLAVICLE 2V LT [[id number]] Order #: [id number] Prescriptions as of 04/23/2018 Sig: SIMVASTATIN 10 MG TABLET Take 1 tablet by mouth once d* ESCITALOPRAM 10 MG TABLET Take 1 tablet by mouth once d* RANITIDINE 150 MG TABLET Take 150 mg by mouth as neede* COMPOUNDED PRESCRIPTION Massage Therapy: Eval and Luis Felipe* METOPROLOL TARTRATE 50 MG TAB* Take 1 tablet by mouth twice * CHOLECALCIFEROL (VITAMIN D3) * Take 1 capsule by mouth once * CYCLOBENZAPRINE 10 MG TABLET Take 1 tablet by mouth twice * IBUPROFEN 600 MG TABLET Take 1 tablet by mouth every * Problem List As Of Date 04/23/2018 Noted Resolved Anxiety state [F41.1] INVALID FOR* Other acne [L70.8] INVALID FOR* Pain in joint, lower leg [M25.569] INVALID FOR* Backache, unspecified [M54.9] INVALID FOR* More... Hyperlipidemia with target LDL less than 130 [E*INVALID FOR* HTN (hypertension) [I10] INVALID FOR*04/04/2016 Marijuana use [F12.90] INVALID FOR* More... 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 Pain of sternum - ICD9: 786.50, ICD10: R07.89 (primary diagnosis) -use medication as prescribed -follow up if symptoms persist, worsen, change -will call results of xray - IBUPROFEN 600 MG TABLET - XR STERNUM 2V MARIN/LAT 2. Clavicle pain - ICD9: 733.90, ICD10: M89.8X1 -use medication as prescribed -follow up if symptoms persist, worsen, change -will call results of xray - IBUPROFEN 600 MG TABLET - XR CLAVICLE 2V LT Prescriptions ordered this encounter Disp Refills Start End IBUPROFEN 600 MG TABLET 21 t* 0 04/23/2018 04/30/2018 Route: ORAL Sig: Take 1 tablet by mouth every 6 hours as needed for Pain for up to 7 days. Medications Discontinued During This Encounter ibuprofen (MOTRIN) 600 mg tablet 30 t* 5 02/08/2018 04/23/2018 Route: ORAL Sig: Take 1 tablet by mouth every 6 hours as needed. Disc: Discontinued by another Health Care Provider Encounter Status:Closed by ALLIE SANTIAGO CNP on 04/23/18 CNCO Observed: 04/23/2018 Status: COMPLETED Source: P[facility]GY[facility] 12:00 AM [facility] REPOSITORY Letter Text Maikol Cook PA-C [facility] Indigo Meier [address] [facility] [id number] 04/23/2018 Dear Ms. Meier, I have received the results of your recent tests. The results of your Lab tests were either normal or within the acceptable range. We can discuss this at your next visit. Please do not hesitate to contact me with any questions. Sincerely, Maikol Cook PA-C [facility] Medicine Department electronically signed to expedite mailing CBC AND DIFFERENTIAL Collected: 04/22/2018 Status: F Source: [facility]GY[facility] 10:15 AM [facility] REPOSITORY TYPE CODE TESTS RESULT OUT OF REFERENCE UNITS RANGE LAB WBC 3.70-11.00 k/uL WBC 8.84 LAB RBC 3.90-5.20 m/uL RBC 4.43 LAB HGB 11.5-15.5 g/dL Hemoglobin 13.3 LAB HCT 36.0-46.0 % Hematocrit 41.1 LAB MCV 80.0-100.0 fL MCV 92.8 LAB MCH 26.0-34.0 pG MCH 30.0 LAB MCHC 30.5-36.0 g/dL MCHC 32.4 LAB RDWCV 11.5-15.0 % RDW-CV 13.9 LAB PLTCT 150-400 k/uL Platelet Count 271 LAB MPV 9.0-12.7 fL MPV 10.9 LAB ANEUT % Neut% 72.4 LAB AANEUT 1.45-7.50 k/uL Abs Neut 6.40 LAB ALYMP % Lymph% 20.5 LAB AALYMP 1.00-4.00 k/uL Abs Lymph 1.81 LAB AMONO % [place]% 5.2 LAB AAMONO <0.87 k/uL Abs [place] 0.46 LAB AEOS % Eosin% 1.6 LAB AAEOS <0.46 k/uL Abs Eosin 0.14 LAB ABASO % Baso% 0.3 LAB AABASO <0.11 k/uL Abs Baso 0.03 LAB AUNRBC 0 /100 WBC NRBCs 0.0 LAB ABNRBC <0.01 k/uL Absolute nRBC <0.01 LAB DTYP DTYPE Auto Diff Performed By: #### CBCDIF, DHEAS, E2, CMP, LIPB, TSH #### [facility] [address], [place] [address] DHEA-S Collected: 04/22/2018 Status: F Source: [place] [place] 10:15 AM [facility] REPOSITORY TYPE CODE TESTS RESULT OUT OF REFERENCE UNITS RANGE LAB DHEAS 60.9-337.0 ug/dL DHEA-S 221.8 Result Comment: Reference ranges are age and gender specific. For additional information, reference range tables can be found in the laboratory test directory. The normal values are based on the following source: Dehydroepiandrosterone sulfate (DHEA S) [package insert V 17.0 Pan[place]ian]. [facility], [place], [place]: May 2013. Performed By: #### CBCDIF, DHEAS, E2, CMP, LIPB, TSH #### [facility] [address], [place] [address] ESTRADIOL-17B Collected: 04/22/2018 Status: F Source: P[facility]GY[place] 10:15 AM [facility] REPOSITORY TYPE CODE TESTS RESULT OUT OF RANGE REFERENCE UNITS LAB E2 pg/mL 91 Estradiol-17 B Result Comment: This test is not suitable for patients receiving treatment with the drug Fulvestrant (Faslodex). The drug causes an interference leading to falsely elevated estradiol results. Menstrual cycle Estradiol reference ranges: Follicular : < 234 pg/mL Ovulation : 41 to 398 pg/mL Luteal : < 342 pg/mL Estradiol reference ranges vary by gestational period: First trimester : 154 to 3243 pg/mL Second trimester : 1561 TO 64958 pg/mL Third trimester : 8285 to >35248 pg/mL Post-menopausal Estradiol reference range: < 41 pg/mL Reference: 1. Estradiol - E2 (Estradiol III) [package insert V 3.0 [place]ian]. [facility], [place], [place], March 2016. Performed By: #### CBCDIF, DHEAS, E2, CMP, LIPB, TSH #### [facility] [address] [place], [place] [address] COMP METABOLIC PANEL Collected: 04/22/2018 Status: F Source: [facility] 10:15 AM [facility] RE[facility] TYPE CODE TESTS RESULT OUT OF REFERENCE UNITS RANGE LAB TP 6.3-8.0 g/dL Protein, Total 7.0 LAB ALB 3.9-4.9 g/dL Albumin 4.3 LAB CA 8.5-10.2 mg/dL Calcium, Total 9.1 LAB TBIL 0.2-1.3 mg/dL Bilirubin, Total 0.3 LAB ALKP 32-117 U/L Alkaline Phosphatase 72 LAB AST 13-35 U/L AST 22 LAB GLU 74-99 mg/dL Glucose High 116 Result Comment: The [place] Diabetes Association (ADA) provides guidance for cutoff values for fasting glucose and random glucose. The ADA defines fasting as no caloric intake for at least 8 hours. Fas ting plasma glucose results between 100 to 125 mg/dL indicate increased risk for diabetes (prediabetes). Fasting plasma glucose results greater than or equal to 126 mg/dL meet the criteria for diagnosis of diabetes. In the absence of unequivocal hyperglycemia, results should be confirmed by repeat testing. In a patient with classic symptoms of hyperglycemia or hyperglycemic crisis, random plasma glucose results greater than or equal to 200 mg/dL meet the criteria for diagnosis of diabetes. Reference: Standards of Medical Care in Diabetes 2016, [place] Diabetes Association. Diabetes Care. 2016.39(Suppl 1). LAB BUN 7-21 mg/dL BUN 15 LAB CRET 0.58-0.96 mg/dL Creatinine 0.62 LAB NA 136-144 mmol/L Sodium 140 LAB K 3.7-5.1 mmol/L Potassium 4.3 LAB CL 97-105 mmol/L Chloride 104 LAB CO2 22-30 mmol/L CO2 Low 21 LAB AGAP 9-18 mmol/L Anion Gap 15 LAB ALT 7-38 U/L ALT 14 LAB GFRAA eGFR- Amer. >60 LAB GFRNAA . eGFR-All Other Races >60 Result Comment: eGFR (Estimated GFR) Units of measure: mL/min/1.73 meters squared eGFR is derived from the reexpressed MDRD Study equation using the following parameters: serum creatinine, age, gender and race. The creatinine assay has been calibrated to be traceable to IDMS. An eGFR <60 mL/min/1.73m2 for >3 months is consistent with chronic kidney disease. Refer to KDOQI guidelines for clinical interpretation. In patients with unstable renal function, e.g. those with acute kidney injury, the eGFR may not accurately reflect actual GFR. Performed By: #### CBCDIF, DHEAS, E2, CMP, LIPB, TSH #### [facility] [address] [place], [place] [address] LIPID PANEL, BASIC Collected: 04/22/2018 Status: F Source: PEN [facility]GY[facility] 10:15 AM [facility] [place] REPOSITORY TYPE CODE TESTS RESULT OUT OF REFERENCE UNITS RANGE LAB CHOL <200 mg/dL Cholesterol 199 Result Comment: <200 mg/dL, Desirable 200-239 mg/dL, Borderline high >239 mg/dL, High LAB TRIGLY <150 mg/dL Triglyceride High 206 Result Comment: <150 mg/dL, Normal 150-199 mg/dL, Borderline high 200-499 mg/dL, High >499 mg/dL, Very high LAB HDL >39 mg/dL HDL-Cholesterol 48 Result Comment: 40-59 mg/dL, Acceptable >59 mg/dL, High: Negative risk factor for coronary heart disease <40 mg/dL, Low: Positive risk factor for coronary heart disease LAB LDL <100 mg/dL LDL-Cholesterol High 110 Result Comment: <100 mg/dL, Optimal 100-129 mg/dL, Near optimal/above optimal 130-159 mg/dL, Borderline high 160-189 mg/dL, High >189 mg/dL, Very high Secondary prevention optimal LDL Cholesterol levels are recommended to be < 70 mg/dL LAB NONHDL <130 mg/dL Non HDL High Cholesterol 151 Result Comment: <130 mg/dL, Optimal 130-159 mg/dL, Near optimal/above optimal 160-189 mg/dL, Borderline high 190-219 mg/dL, High >219 mg/dL, Very high Secondary prevention optimal non HDL Cholesterol levels are recommended to be < 100 mg/dL LAB FT hrs Fasting Time 10 LAB VLDL <30 mg/dL High VLDL Cholesterol 41 LAB TCHDL <5.10 TC:HDL Ratio 4.15 LAB LDLHDL <2.54 LDL:HDL Ratio 2.29 Result Comment: Reference: 1. National Cholesterol Education Program ATP III Guideline At-A-Glance Quick Desk Reference: National Heart, Lung, and Blood [place]. National Institutes of Health. 2001: NIH Publication No. 01-3305. 2. An International Atherosclerosis Society position paper: global recommendations for the management of dyslipidemia: executive summary, Atherosclerosis. 2014: 232(2):410-413. Performed By: #### CBCDIF, DHEAS, E2, CMP, LIPB, TSH #### [facility] [address] [place], [place] [address] TSH Collected: 04/22/2018 Status: F Source: PEN ARGYL 10:15 AM [facility] REPOSITORY TYPE CODE TESTS RESULT OUT OF RANGE REFERENCE UNITS LAB TSH 0.400-5.500 uU/mL TSH 1.180 Result Comment: If the patient is , TSH reference range varies by gestational period: First Trimester 0.100-2.500 uU/mL Second Trimester 0.200-3.000 uU/mL Third Trimester 0.300-3.000 uU/mL References: 1. Odom L, Shirley M, [place] EK, et al. Management of Thyroid Dysfunction during and : An Endocrine Society Clinical Practice Guideline. J Clin Endocrinol Metab, 2012:97:6581-1651. 2. Sandeep GALDAMEZ. Overview of thyroid disease in . UpToDate. 2016. Accessed on March 17, 2016. Performed By: #### CBCDIF, DHEAS, E2, CMP, LIPB, TSH #### [facility] [address] [place], [place] [address] PROGRESS Observed: 03/27/2018 Status: COMPLETED Source: PEN ARGYL 8:00 AM [facility] REPOSITORY HNO ID: [id number] Author: Rodo Casiano Service: (none) Author Type: Physical Therapist Type: Progress Notes Filed: 03/27/2018 8:00 AM Note Text: [facility] PHYSICAL THERAPY DISCONTINUANCE OF CARE Plan of Care Period: Start of Care Date: 11/21/17 Last Visit Date: 11/21/2017 Therapy Program: Patient did not return for follow up care as planned. Please refer to last visit note for interventions provided for this episode of care. Assessment: Unable to formally assess goal achievement due to non-compliance with therapy plan of care. Reason for Discontinuation of Care: Patient has not returned to therapy or scheduled additional follow-up appointments. YOVANY Arias Observed: 02/11/2018 Status: COMPLETED Source: PEN [facility]GY[facility] 12:00 AM [facility] REPOSITORY Telephone (CDLBME) INDIGO MEIER ([id number]) 1975 F Date Time Provider Department 02/11/18 DEANDRA KAPOOR (RN) CDLE During your visit today, we recorded the following information about you: Deandra Kapoor (Rn), RN 02/11/2018 2:08 PM Signed Left message regarding reminder for stress echo test tomorrow and given instructions Allergies As of Date: 02/11/2018 (No Known Allergies) Date Reviewed: 02/01/2018 Reviewed by: Lilia Marrero Ma - Fully Assessed Reason for Visit: Reminder Call [[id number]] Prescriptions as of 02/11/2018 Sig: IBUPROFEN 600 MG TABLET Take 1 tablet by mouth every * ESCITALOPRAM 10 MG TABLET Take 1 tablet by mouth once d* RANITIDINE 150 MG TABLET Take 150 mg by mouth as neede* COMPOUNDED PRESCRIPTION Massage Therapy: Eval and Luis Felipe* METOPROLOL TARTRATE 50 MG TAB* Take 1 tablet by mouth twice * SIMVASTATIN 10 MG TABLET Take 1 tablet by mouth once d* CHOLECALCIFEROL (VITAMIN D3) * Take 1 capsule by mouth once * CYCLOBENZAPRINE 10 MG TABLET Take 1 tablet by mouth twice * Problem List As Of Date 02/11/2018 Noted Resolved Anxiety state [F41.1] INVALID FOR* Other acne [L70.8] INVALID FOR* Pain in joint, lower leg [M25.569] INVALID FOR* Backache, unspecified [M54.9] INVALID FOR* More... Hyperlipidemia with target LDL less than 130 [E*INVALID FOR* HTN (hypertension) [I10] INVALID FOR*04/04/2016 Marijuana use [F12.90] INVALID FOR* More... 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 Nursing Notes: Lliia Marrero Ma 02/01/2018 11:56 AM Signed CHEST PAIN: Pt c/o left sided chest pressure/pain that radiates into left shoulder and down her arm. It happens about once a week. Mostly when stressed, but can happen at other times. Father of heart attack at age 71 years. Positive for SOB, dizziness, headaches. FACIAL HAIR: Pt c/o hair on her chin for the past 15 years. She went to get it lasered off and was told to have her hormone levels checked. 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 She did not fill. She is not taking it. She had been seeing a family practioner in [place] due to an insurance change. Had to have a squad called. Could not move her arm due to pain. Thought she was having a heart attack. Feels is anxiety related. overthinks things. Sometimes is down. No suicidal ideation. Has had facial hair for years. Want basic hormones tested. MEDICATIONS: Current Outpatient Prescriptions: topiramate (TOPAMAX) 25 mg tablet Take 1 tablet by mouth at bedtime for 1 week. Then increase to 2 tablets by mouth at bedtime. ranitidine (ZANTAC) 150 mg tablet Take 150 mg by mouth as needed. COMPOUNDED PRESCRIPTION Massage Therapy: Eval and Treat. Dx: Headaches(CT brain and xray cervical spine normal) metoprolol tartrate, short acting, (LOPRESSOR) 50 mg tablet Take 1 tablet by mouth twice daily. ibuprofen (MOTRIN) 600 mg tablet Take 1 tablet by mouth every 6 hours as needed. simvastatin (ZOCOR) 10 mg tablet Take 1 tablet by mouth once daily. Cholecalciferol, Vitamin D3, 1,000 unit cap Take 1 capsule by mouth once daily. cyclobenzaprine (FLEXERIL) 10 mg tablet Take 1 tablet by mouth twice daily as needed. No current facility-administered medications for this visit. ALLERGIES: ALLERGIES No Known Allergies PAST MEDICAL HISTORY Diagnosis Date - Anxiety generalized anxiety AND panic disorder (diagnosed by PCP) - Chronic back pain mild scolosis and sciatica AND SI joint locks up; was seeing pain management, now sees PCP - GERD (gastroesophageal reflux disease) - Hyperlipidemia 2011 - Hypertension - Marijuana use - Vertigo PAST SURGICAL HISTORY Procedure Laterality Date - LIGATE FALLOPIAN TUBE Tubal ligation - REMOVAL GALLBLADDER Cholecystectomy FAMILY HISTORY Problem Relation Age of Onset - Hypertension Mother - Hyperlipidemia Mother - None Father - Diabetes Brother - Hyperlipidemia Brother - Asthma Son - Allergies Son - Allergies Son - Cancer Sister 41 cervical, ?lymph - Diabetes Sister Social History Marital status: Spouse name: Years of education: 14 Number of children: 3 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 REVIEW OF SYSTEMS All other reviewed and negative other than HPI. HEALTH MAINTENANCE: Reviewed health maintenance issues today and recommended the following in detail. DTAP,TDAP,TD(1 - Tdap) due on 1996 MAMMOGRAM due on 2017 VITALS: BP 122/74 Pulse 68 Resp 12 LMP 01/24/2018 SpO2 97% Last 4 Encounter Wt Readings: Date: Wt: 01/29/2018 74.4 kg (164 lb) 11/22/2017 78 kg (171 lb 15.3 oz) 10/24/2017 73.5 kg (162 lb) 10/17/2017 73.5 kg (162 lb) PHYSICAL EXAMINATION: General appearance: Well appearing, alert, in no acute distress, well-hydrated, well nourished. Skin: Skin color, texture, turgor normal, no suspicious rashes or lesions Head: Normocephalic, no masses, lesions, tenderness or abnormalities Neck: Supple, no adenopathy; thyroid symmetric, normal size, no bruits Lungs: Lungs clear to auscultation. No wheezing, rhonchi, rales Heart: RRR without murmur, gallop, or rubs. No ectopy Abdomen: Normal abdominal exam, Abdomen soft, non-tender. Bowel sounds normal. No masses, organomegaly Extremities: No deformities, edema, skin discoloration, clubbing or cyanosis. Good capillary refill. Neuro: Gait normal. Reflexes normal and symmetric. Sensation grossly intact. ASSESSMENT/PLAN: 1. Chest pain, unspecified type - ICD9: 786.50, ICD10: R07.9 (primary diagnosis) - to ER if any recurrent symptoms. Red flags for re-assessment reviewed with patient in detail. - ECG COMPLETE W INTERPRETATION - STRESS ECHO TREADMILL 2. Abnormal facial hair - ICD9: 704.1, ICD10: L67.8 - check labs. - CBC + DIFF - TSH BLD - COMP METABOLIC PANEL - TESTOSTERONE TOTAL - ESTRADIOL-17B BLD - DHEA-S BLD 3. Mixed hyperlipidemia - ICD9: 272.2, ICD10: E78.2 - to be determined upon return of lab results - Encouraged following a low fat, low cholesterol diet. - LIPID PANEL BASIC Guillermo Sheffield MD CNOV Observed: 02/01/2018 Status: COMPLETED Source: PEN ARGYL 12:00 PM [facility] REPOSITORY Office Visit (FAMPWS) RENEAINDIGO ([id number]) 1975 F Date Time Provider Department 02/01/18 12:00 PM GUILLERMO SHEFFIELD FAMPWS During your visit today, we recorded the following information about you: Pulse Respiration Blood pressure 68/minute 12/minute 122/74 Lilia Marrero Ma 02/01/2018 11:56 AM Signed CHEST PAIN: Pt c/o left sided chest pressure/pain that radiates into left shoulder and down her arm. It happens about once a week. Mostly when stressed, but can happen at other times. Father of heart attack at age 71 years. Positive for SOB, dizziness, headaches. FACIAL HAIR: Pt c/o hair on her chin for the past 15 years. She went to get it lasered off and was told to have her hormone levels checked. Guillermo Sheffield 02/01/2018 5:16 PM Signed Patient presents with: Facial Hair: wants hormon levels checked HPI: Patient presents today for office visit for follow up. Nursing Notes: Lilia Marrero Ma 02/01/2018 11:56 AM Signed CHEST PAIN: Pt c/o left sided chest pressure/pain that radiates into left shoulder and down her arm. It happens about once a week. Mostly when stressed, but can happen at other times. Father of heart attack at age 71 years. Positive for SOB, dizziness, headaches. FACIAL HAIR: Pt c/o hair on her chin for the past 15 years. She went to get it lasered off and was told to have her hormone levels checked. 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 She did not fill. She is not taking it. She had been seeing a family practioner in [place] due to an insurance change. Had to have a squad called. Could not move her arm due to pain. Thought she was having a heart attack. Feels is anxiety related. overthinks things. Sometimes is down. No suicidal ideation. Has had facial hair for years. Want basic hormones tested. MEDICATIONS: Current Outpatient Prescriptions: topiramate (TOPAMAX) 25 mg tablet Take 1 tablet by mouth at bedtime for 1 week. Then increase to 2 tablets by mouth at bedtime. ranitidine (ZANTAC) 150 mg tablet Take 150 mg by mouth as needed. COMPOUNDED PRESCRIPTION Massage Therapy: Eval and Treat. Dx: Headaches(CT brain and xray cervical spine normal) metoprolol tartrate, short acting, (LOPRESSOR) 50 mg tablet Take 1 tablet by mouth twice daily. ibuprofen (MOTRIN) 600 mg tablet Take 1 tablet by mouth every 6 hours as needed. simvastatin (ZOCOR) 10 mg tablet Take 1 tablet by mouth once daily. Cholecalciferol, Vitamin D3, 1,000 unit cap Take 1 capsule by mouth once daily. cyclobenzaprine (FLEXERIL) 10 mg tablet Take 1 tablet by mouth twice daily as needed. No current facility-administered medications for this visit. ALLERGIES: ALLERGIES No Known Allergies PAST MEDICAL HISTORY Diagnosis Date - Anxiety generalized anxiety AND panic disorder (diagnosed by PCP) - Chronic back pain mild scolosis and sciatica AND SI joint locks up; was seeing pain management, now sees PCP - GERD (gastroesophageal reflux disease) - Hyperlipidemia 2011 - Hypertension - Marijuana use - Vertigo PAST SURGICAL HISTORY Procedure Laterality Date - LIGATE FALLOPIAN TUBE Tubal ligation - REMOVAL GALLBLADDER Cholecystectomy FAMILY HISTORY Problem Relation Age of Onset - Hypertension Mother - Hyperlipidemia Mother - None Father - Diabetes Brother - Hyperlipidemia Brother - Asthma Son - Allergies Son - Allergies Son - Cancer Sister 41 cervical, ?lymph - Diabetes Sister Social History Marital status: Spouse name: Years of education: 14 Number of children: 3 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 REVIEW OF SYSTEMS All other reviewed and negative other than HPI. HEALTH MAINTENANCE: Reviewed health maintenance issues today and recommended the following in detail. DTAP,TDAP,TD(1 - Tdap) due on 1996 MAMMOGRAM due on 2017 VITALS: BP 122/74 Pulse 68 Resp 12 LMP 01/24/2018 SpO2 97% Last 4 Encounter Wt Readings: Date: Wt: 01/29/2018 74.4 kg (164 lb) 11/22/2017 78 kg (171 lb 15.3 oz) 10/24/2017 73.5 kg (162 lb) 10/17/2017 73.5 kg (162 lb) PHYSICAL EXAMINATION: General appearance: Well appearing, alert, in no acute distress, well-hydrated, well nourished. Skin: Skin color, texture, turgor normal, no suspicious rashes or lesions Head: Normocephalic, no masses, lesions, tenderness or abnormalities Neck: Supple, no adenopathy; thyroid symmetric, normal size, no bruits Lungs: Lungs clear to auscultation. No wheezing, rhonchi, rales Heart: RRR without murmur, gallop, or rubs. No ectopy Abdomen: Normal abdominal exam, Abdomen soft, non-tender. Bowel sounds normal. No masses, organomegaly Extremities: No deformities, edema, skin discoloration, clubbing or cyanosis. Good capillary refill. Neuro: Gait normal. Reflexes normal and symmetric. Sensation grossly intact. ASSESSMENT/PLAN: 1. Chest pain, unspecified type - ICD9: 786.50, ICD10: R07.9 (primary diagnosis) - to ER if any recurrent symptoms. Red flags for re-assessment reviewed with patient in detail. - ECG COMPLETE W INTERPRETATION - STRESS ECHO TREADMILL 2. Abnormal facial hair - ICD9: 704.1, ICD10: L67.8 - check labs. - CBC + DIFF - TSH BLD - COMP METABOLIC PANEL - TESTOSTERONE TOTAL - ESTRADIOL-17B BLD - DHEA-S BLD 3. Mixed hyperlipidemia - ICD9: 272.2, ICD10: E78.2 - to be determined upon return of lab results - Encouraged following a low fat, low cholesterol diet. - LIPID PANEL BASIC Guillermo Sheffield MD Referring Provider: SELF [[id number]] Allergies As of Date: 02/01/2018 (No Known Allergies) Date Reviewed: 02/01/2018 Reviewed by: Lilia Marrero Ma - Fully Assessed Reason for Visit: Facial Hair [Other] Cmt: wants hormon levels checked Primary Visit Diagnosis:Chest pain, unspecified type [R07.9] Other Visit Diagnoses:Abnormal facial hair [L67.8] Mixed hyperlipidemia [E78.2] Order(s):ECG COMPLETE W INTERPRETATION [ECG01] Order #: [id number] FUTURE STRESS ECHO TREADMILL [26302779] Order #: [id number]: 1 FUTURE CBC + DIFF [SQCBCDIF] Order #: [id number] FUTURE TSH BLD [SQTSH] Order #: [id number] FUTURE COMP METABOLIC PANEL [SQCMP] Order #: [id number] FUTURE TESTOSTERONE TOTAL [SQTESTO] Order #: [id number] ESTRADIOL-17B BLD [SQE2] Order #: [id number] FUTURE DHEA-S BLD [SQDHEAS] Order #: [id number] FUTURE escitalopram oxalate (LEXAPRO) 10 mg tabletTake 1 tablet by mouth once daily.Disp: 30 tabletRfl: 2 LIPID PANEL BASIC [SQLIPB] Order #: [id number] FUTURE Prescriptions as of 02/01/2018 Sig: RANITIDINE 150 MG TABLET Take 150 mg by mouth as neede* COMPOUNDED PRESCRIPTION Massage Therapy: Eval and Luis Felipe* METOPROLOL TARTRATE 50 MG TAB* Take 1 tablet by mouth twice * IBUPROFEN 600 MG TABLET Take 1 tablet by mouth every * SIMVASTATIN 10 MG TABLET Take 1 tablet by mouth once d* CHOLECALCIFEROL (VITAMIN D3) * Take 1 capsule by mouth once * CYCLOBENZAPRINE 10 MG TABLET Take 1 tablet by mouth twice * ESCITALOPRAM 10 MG TABLET Take 1 tablet by mouth once d* Problem List As Of Date 02/01/2018 Noted Resolved Anxiety state [F41.1] INVALID FOR* Other acne [L70.8] INVALID FOR* Pain in joint, lower leg [M25.569] INVALID FOR* Backache, unspecified [M54.9] INVALID FOR* More... Hyperlipidemia with target LDL less than 130 [E*INVALID FOR* HTN (hypertension) [I10] INVALID FOR*04/04/2016 Marijuana use [F12.90] INVALID FOR* More... 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 It happens about once a week. Mostly when stressed, but can happen at other times. Father of heart attack at age 71 years. Positive for SOB, dizziness, headaches. FACIAL HAIR: Pt c/o hair on her chin for the past 15 years. She went to get it lasered off and was told to have her hormone levels checked. Prescriptions ordered this encounter Disp Refills Start End ESCITALOPRAM 10 MG TABLET 30 t* 2 02/01/2018 Route: ORAL Sig: Take 1 tablet by mouth once daily. Medications Discontinued During This Encounter topiramate (TOPAMAX) 25 mg tablet 60 t* 5 11/23/2017 02/01/2018 Class: Print RX Sig: Take 1 tablet by mouth at bedtime for 1 week. Then increase to 2 tablets by mouth at bedtime. Disc: Reason for discontinue is not on file. Follow-up and Disposition History Recorded Encounter Status:Closed by GUILLERMO SHEFFIELD MD on 02/01/18 CNDERRICK Observed: 01/29/2018 Status: COMPLETED Source: [facility] 2:30 PM [facility] REPOSITORY Office Visit (WOOB) INDIGO MEIER ([id number]) 1975 F Date Time Provider Department 01/29/18 2:30 PM INDIGO MORA (SUNSHINE) WOOB During your visit today, we recorded the following information about you: Blood pressure Weight Last Period 100/60 74.4 kg 01/24/18 Indigo Mora APRN.SUNSHINE 01/29/2018 2:46 PM Signed Indigo Kaykay Meier is a 42 year old female who presents for problem visit Unable to find tampon that she inserted last night. HPI: Inserted tampon last night but has not been able to remove it today. Awoke and went to bathroom at 0500 but does not remember removing it. Denies pain or odor. PAST MEDICAL HISTORY Diagnosis Date - Anxiety generalized anxiety AND panic disorder (diagnosed by PCP) - Chronic back pain mild scolosis and sciatica AND SI joint locks up; was seeing pain management, now sees PCP - GERD (gastroesophageal reflux disease) - Hyperlipidemia 2011 - Hypertension - Marijuana use - Vertigo PAST SURGICAL HISTORY Procedure Laterality Date - LIGATE FALLOPIAN TUBE Tubal ligation - REMOVAL GALLBLADDER Cholecystectomy FAMILY HISTORY Problem Relation Age of Onset - Hypertension Mother - Hyperlipidemia Mother - None Father - Diabetes Brother - Hyperlipidemia Brother - Asthma Son - Allergies Son - Allergies Son - Cancer Sister 41 cervical, ?lymph - Diabetes Sister Social History Marital status: Spouse name: Years of education: 14 Number of children: 3 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 Then increase to 2 tablets by mouth at bedtime. ranitidine (ZANTAC) 150 mg tablet Take 150 mg by mouth as needed. metoprolol tartrate, short acting, (LOPRESSOR) 50 mg tablet Take 1 tablet by mouth twice daily. ibuprofen (MOTRIN) 600 mg tablet Take 1 tablet by mouth every 6 hours as needed. Cholecalciferol, Vitamin D3, 1,000 unit cap Take 1 capsule by mouth once daily. cyclobenzaprine (FLEXERIL) 10 mg tablet Take 1 tablet by mouth twice daily as needed. COMPOUNDED PRESCRIPTION Massage Therapy: Eval and Treat. Dx: Headaches(CT brain and xray cervical spine normal) simvastatin (ZOCOR) 10 mg tablet Take 1 tablet by mouth once daily. No current facility-administered medications for this visit. Allergies As of Date: 01/29/2018 (No Known Allergies) Fully Assessed 01/29/2018 REVIEW OF SYSTEMS Abdomen: No bloating, early satiety, indigestion, or increased flatulence. No abdominal pain, nausea, vomiting, diarrhea, or constipation. Bladder: No dysuria, gross hematuria, urinary frequency, urinary urgency, or incontinence. Allergies and current medication updated:Yes EXAM: BP 100/60 Wt 164 lb (74.4kg) LMP 01/24/2018 GENERAL: pleasant, female in no apparent distress CHEST: Normal inspiratory effort ABDOMEN: soft, non-tender and no masses PELVIC: external genitalia normal, good vaginal support, physiologic discharge present, normal appearing perineal body and perianal region, NO retained tampon BIMANUAL: non-tender ASSESSMENT/PLAN: 1. Retained tampon, initial encounter - ICD9: 939.2, ICD10: T19.2XXA - No retained tampon in vagina Follow-up as needed. Indigo Mora APRN.PELLET MILL OPERATOR Referring Provider: SELF [[id number]] Allergies As of Date: 01/29/2018 (No Known Allergies) Date Reviewed: 01/29/2018 Reviewed by: Indigo (Sunshine) Abby - Fully Assessed Reason for Visit: retained tampon [Other] Primary Visit Diagnosis:Retained tampon, initial encounter [T19.2XXA] Prescriptions as of 01/29/2018 Sig: TOPIRAMATE 25 MG TABLET Take 1 tablet by mouth at bed* RANITIDINE 150 MG TABLET Take 150 mg by mouth as neede* METOPROLOL TARTRATE 50 MG TAB* Take 1 tablet by mouth twice * IBUPROFEN 600 MG TABLET Take 1 tablet by mouth every * CHOLECALCIFEROL (VITAMIN D3) * Take 1 capsule by mouth once * CYCLOBENZAPRINE 10 MG TABLET Take 1 tablet by mouth twice * COMPOUNDED PRESCRIPTION Massage Therapy: Eval and Luis Felipe* SIMVASTATIN 10 MG TABLET Take 1 tablet by mouth once d* Problem List As Of Date 01/29/2018 Noted Resolved Anxiety state [F41.1] INVALID FOR* Other acne [L70.8] INVALID FOR* Pain in joint, lower leg [M25.569] INVALID FOR* Backache, unspecified [M54.9] INVALID FOR* More... Hyperlipidemia with target LDL less than 130 [E*INVALID FOR* HTN (hypertension) [I10] INVALID FOR*04/04/2016 Marijuana use [F12.90] INVALID FOR* More... 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 HPI: Inserted tampon last night but has not been able to remove it today. Awoke and went to bathroom at 0500 but does not remember removing it. Denies pain or odor. PAST MEDICAL HISTORY Diagnosis Date - Anxiety generalized anxiety AND panic disorder (diagnosed by PCP) - Chronic back pain mild scolosis and sciatica AND SI joint locks up; was seeing pain management, now sees PCP - GERD (gastroesophageal reflux disease) - Hyperlipidemia 2011 - Hypertension - Marijuana use - Vertigo PAST SURGICAL HISTORY Procedure Laterality Date - LIGATE FALLOPIAN TUBE Tubal ligation - REMOVAL GALLBLADDER Cholecystectomy FAMILY HISTORY Problem Relation Age of Onset - Hypertension Mother - Hyperlipidemia Mother - None Father - Diabetes Brother - Hyperlipidemia Brother - Asthma Son - Allergies Son - Allergies Son - Cancer Sister 41 cervical, ?lymph - Diabetes Sister Social History Marital status: Spouse name: Years of education: 14 Number of children: 3 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 Then increase to 2 tablets by mouth at bedtime. ranitidine (ZANTAC) 150 mg tablet Take 150 mg by mouth as needed. metoprolol tartrate, short acting, (LOPRESSOR) 50 mg tablet Take 1 tablet by mouth twice daily. ibuprofen (MOTRIN) 600 mg tablet Take 1 tablet by mouth every 6 hours as needed. Cholecalciferol, Vitamin D3, 1,000 unit cap Take 1 capsule by mouth once daily. cyclobenzaprine (FLEXERIL) 10 mg tablet Take 1 tablet by mouth twice daily as needed. COMPOUNDED PRESCRIPTION Massage Therapy: Eval and Treat. Dx: Headaches(CT brain and xray cervical spine normal) simvastatin (ZOCOR) 10 mg tablet Take 1 tablet by mouth once daily. No current facility-administered medications for this visit. Allergies As of Date: 01/29/2018 (No Known Allergies) Fully Assessed 01/29/2018 REVIEW OF SYSTEMS Abdomen: No bloating, early satiety, indigestion, or increased flatulence. No abdominal pain, nausea, vomiting, diarrhea, or constipation. Bladder: No dysuria, gross hematuria, urinary frequency, urinary urgency, or incontinence. Allergies and current medication updated:Yes EXAM: BP 100/60 Wt 164 lb (74.4kg) LMP 01/24/2018 GENERAL: pleasant, female in no apparent distress CHEST: Normal inspiratory effort ABDOMEN: soft, non-tender and no masses PELVIC: external genitalia normal, good vaginal support, physiologic discharge present, normal appearing perineal body and perianal region, NO retained tampon BIMANUAL: non-tender ASSESSMENT/PLAN: 1. Retained tampon, initial encounter - ICD9: 939.2, ICD10: T19.2XXA - No retained tampon in vagina Follow-up as needed. Indigo Mora APRN.PELLET MILL OPERATOR 12 LEAD ELECTROCARDIOGRAM Observed: 01/15/2018 Status: F Source: [facility] 3:25 PM [facility] REPOSITORY [facility] Cardiovascular Services [address] [place] [address] 12 Lead EKG 01/13/18 2213 MR#: [id number] Acct: [id number] Name: ADEMORIAHINDIGO Kaykay Rep #: [id number] : 1975 42 From: Diallo Estrada MD Attending Dr: Status: DEP ER Ordering Dr: Santhosh Gutierres MD Date: 01/13/18 Location: ED Sex: F C Admitted: Test Reason : CP Blood Pressure : / mmHG Vent. Rate : 072 BPM Atrial Rate : 072 BPM P-R Int : 186 ms QRS Dur : 078 ms QT Int : 380 ms P-R-T Axes : 041 006 028 degrees QTc Int : 416 ms Normal sinus rhythm Normal ECG Confirmed by SEAN EUBANKS, DIALLO ([id number]), video tape editor REAGAN LENTZ ([id number]) on 01/15/2018 3:25:19 PM Referred By: MARILU SHER Confirmed By:DIALLO ESTRADA MD 01/15/18 1525 Date Diallo Estrada MD CC: Santhosh Gutierres MD; Guillermo Sheffield MD Signed CR SPINE LUMBOSACRAL 4+ Observed: 12/13/2017 Status: F Source: [facility] 2:01 PM SYSTEM REPOSITORY Patient Name: INDIGO MEIER Diagnostic Radiology Exam Date/Time 12/13/2017 12:08:58 EDT Exam CR Spine Lumbosacral 4+ Views Ordering Physician MIKE LENTZ, ADRY Montesinos Accession Number [id number] CPT4 Codes 70399 () Reason For Exam LBP Report CLINICAL INFORMATION: Low back pain. Frontal, bilateral oblique , L5/S1 spot view and lateral views of the lumbar spine were obtained. There are 5 lumbar type vertebrae. Bone density appears normal. The vertebral heights are within normal limits. No spondylolisthesis or spondylolysis is noted. Disc spaces are maintained. AP view reveals mild curvature, convex to the left. No fracture is noted. IMPRESSION: Mild curvature. No acute bony abnormality or significant arthritic changes. Report Dictated on Final Dictated: 12/13/2017 2:01 pm Dictating Physician: MD THOMPSON LAURA Signed Date and Time: 12/13/2017 2:03 pm Signed by: MD THOMPSON LAURA Transcribed Date and Time: 12/13/2017 2:01 NURSING PROG Observed: 11/23/2017 Status: COMPLETED Source: [facility] 11:20 AM [facility] REPOSITORY HNO ID: [id number] Author: Nitza DejesusRn) JACKSON De Souza Service: Nursing Author Type: Registered Nurse Type: Nursing Progress Note Filed: 11/23/2017 11:33 AM Note Text: Nursing Progress Note Patient Name: Indigo Meier Patient [place] [address] [address] Daily Note:After both MIKE Marino and Dr. Burgos spoke to patient about the benefits of staying, the patient opted to be discharged. IV removed and intact, tele monitor cleaned and placed back. All discharge documents reviewed and time for questions was given. New medication, Topamax reviewed with patient. Nothing further at this time. This note was completed by: Nitza De Souza RN CNDS Observed: 11/23/2017 Status: COMPLETED Source: [facility] 11:04 AM [facility] REPOSITORY HNO ID: [id number] Author: Karina Burgos Service: Neurology Author Type: Physician Type: Discharge Summaries Filed: 11/23/2017 3:45 PM Note Text: DISCHARGE SUMMARY PATIENT NAME: Indigo Meier ADMISSION DATE: 11/22/2017 DISCHARGE DATE: 11/23/2017 DATE OF : 1975 Admitting Service: Epilepsy Attending Physician: Karina Burgos Referring/Secondary Physician: Kulwinder Summers Reason for Hospitalization: Active Problems: Anxiety state Convulsion, non-epileptic (HCC) Resolved Problems: * No resolved hospital problems. * Operations During Hospitalization: None Principal Procedures: EEG Imaging Studies: None Medication on Admission: COMPOUNDED PRESCRIPTION Massage Therapy: Eval and Treat. Dx: Headaches(CT brain and xray cervical spine normal) metoprolol tartrate, short acting, (LOPRESSOR) 50 mg tablet Take 1 tablet by mouth twice daily. ibuprofen (MOTRIN) 600 mg tablet Take 1 tablet by mouth every 6 hours as needed. simvastatin (ZOCOR) 10 mg tablet Take 1 tablet by mouth once daily. Cholecalciferol, Vitamin D3, 1,000 unit cap Take 1 capsule by mouth once daily. Ranitidine (ZANTAC) 150 mg tablet Take 1 tablet by mouth as needed. cyclobenzaprine (FLEXERIL) 10 mg tablet Take 1 tablet by mouth twice daily as needed. Allergies: Review of patient's allergies indicates no known allergies. Hospital Course: This is a 42 year old right-handed female with hypertension, dyslipidemia, chronic back pain, migraine, anxiety, marijuana use, AND vertigo who was admitted for diagnostic video EEG for episodes concerning for possible seizure. Prior EEG with rare left frontal sharp wave. MRI ordered and pending. Risk factors for epilepsy include mild concussions without loss of consciousness. Seizure types: Type A: ?big ones? dizzy feeling, blurred vision, lose control of her body, unresponsive but without clear loss of consciousness (can hear people), limp, twitching/shaking of the hands, feels ?numb all over? with headache, triggered by stress, lasting 5 minutes, occurring monthly Type B: ?anxiety? dizzy, light headed, heart racing, triggered by stressful situation, can last hours, near daily Type C C: Right head pain few minutes in clusters ? The patient was monitored with continuous video-EEG from 11/22/2017 to 11/23/2017. 3 typical events were recorded with no EEG change. 2 events were consistent with her anxiety. One event was a typical 'big one', no EEG or EKG change, suggestive of pseudo nonepileptic seizures (PNES). Please see separate video-EEG report for details. Patient was on no home AED's on admission. The patient requested to leave early on 11/23. The patient was discharged to home with instructions to start Topamax 25 mg qHS for migraines and increase the dose to 50 mg in 1 week and to follow up with Dr. Summers. 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 Miranda for cognitive behavioral therapy (see appointment below) and a PNES book was given to her. Labs and Procedures Pending at Discharge: No pending results. Consulting Teams During Hospitalization: None Patient Condition @ Discharge: Stable Discharge Disposition: Home/Self Care Discharge Physical Exam: VITAL SIGNS: BP 116/81 Pulse 66 Temp 36.6 ?C (97.9 ?F) (Oral) Resp 16 Ht 160 cm (5' 3) Wt 78 kg (171 lb 15.3 oz) SpO2 98% BMI 30.46 kg/m2 GENERAL: Alert, no distress, cooperative EYES: PERRLA, EOMI NEURO: Grossly normal cognition, motor function, and cranial nerves III-XII Information Provided to Patient: Hospital stay and summary Medication instructions Follow UP PNES book DISCHARGE INSTRUCTIONS: Pain Control: Adequate management. Diet: Normal Activity: No Driving. Discharge Medications: Current Discharge Medication List START taking these medications topiramate (TOPAMAX) 25 mg tablet Take 1 tablet by mouth at bedtime for 1 week. Then increase to 2 tablets by mouth at bedtime. Qty: 60 tablet Refills: 5 CONTINUE these medications which have NOT CHANGED ranitidine (ZANTAC) 150 mg Take 150 mg by mouth as needed. COMPOUNDED PRESCRIPTION Massage Therapy: Eval and Treat. Dx: Headaches (CT brain and xray cervical spine normal) Qty: 1 Each Refills: 0 Associated Diagnoses:Chronic nonintractable headache, unspecified headache type metoprolol tartrate (short acting) (LOPRESSOR) 50 mg Take 50 mg by mouth twice daily. Qty: 180 tablet Refills: 1 Comments: Sorry, please use this script Associated Diagnoses:Essential hypertension ibuprofen (MOTRIN) 600 mg Take 600 mg by mouth every 6 hours as needed. Qty: 30 tablet Refills: 0 simvastatin (ZOCOR) 10 mg Take 10 mg by mouth once daily. Qty: 30 tablet Refills: 5 Cholecalciferol (Vitamin D3) 1,000 Units Take 1,000 Units by mouth once daily. Refills: 0 cyclobenzaprine (FLEXERIL) 10 mg Take 10 mg by mouth twice daily as needed. Qty: 30 tablet Refills: 1 Future Appointments: Date Time Provider Department Center 11/26/2017 8:15 AM Rodo (Pt) Oh [facility] 11/30/2017 9:15 AM Sue [facility] 12/04/2017 11:00 AM Rodo (Pt) Oh [facility] 12/07/2017 11:15 AM Rodo (Pt) Oh [facility] 12/11/2017 11:00 AM Rodo (Pt) Oh [facility] MARIA FERNANDA 12/14/2017 11:15 AM Rodo (Pt) Oh [facility] MARIA FERNANDA 12/18/2017 11:00 AM Rodo (Pt) Oh [facility] MARIA FERNANDA 12/21/2017 11:15 AM Rodo (Pt) Oh [facility] FERNANDA 01/30/2018 9:00 AM Elizabeth ALVES [facility] 03/13/2018 1:20 PM Maria Luisa Jorgeesperanza [facility] TIME OF CARE: Discharge Management: I personally spent less than 30 minutes involved in the discharge management of this patient. SIGNATURE: Jamila Najera CNP PAGER: [phone] DATE: November 23, 2017 TIME: 11:23 AM EPILEPSY CENTER ATTENDING NOTE ? Date of Service: November 23, 2017 ? [facility] [place] STAFF PHYSICIAN NOTE OF PERSONAL INVOLVEMENT IN CARE Patient was?seen by me on separate attending?rounds on this date of discharge. I have reviewed the discharge note obtained and documented by the nurse practitioner as above. ? Data reviewed: Continuous video EEG recording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 time if there are questions regarding my patient. HEMOGRAM/DIFF Collected: 11/22/2017 Status: F Source: [facility] 9:45 AM HEALTH SYSTEM REPOSITORY TYPE CODE TESTS RESULT OUT OF REFERENCE UNITS RANGE LAB WBC(LOINC) 3.98-10.04 thou/cmm WBC 5.54 LAB RBC(LOINC) 3.93-5.22 mil/cmm Low RBC 3.51 LAB HGB(LOINC) 11.2-15.7 g/dL Low Hgb 10.5 LAB HCT(LOINC) 34.1-44.9 % Low Hct 32.3 LAB MCV(LOINC) 79.4-94.8 fl MCV 92.0 LAB MCH(LOINC) 25.6-32.2 pg MCH 29.9 LAB MCHC(LOINC 31.6-34.8 % ) MCHC 32.5 LAB RDW(LOINC) 11.7-14.4 % RDW 13.3 LAB RDWSD(LOIN 36.4-46.3 fl C) RDW SD 45.1 LAB PLT(LOINC) 182-369 thou/cmm Platelet 196 LAB MPV(LOINC) 9.4-12.3 fl MPV 10.4 LAB SEG(LOINC) % Seg Neutrophil 62.8 LAB IGRE(LOINC % ) Immature Grans 0.40 LAB LYMPH(LOIN % C) Lymphocyte 28.7 LAB MNO(LOINC) % Monocyte 5.8 LAB EOSIN(LOIN % C) Eosinophil 1.8 LAB BASO(LOINC % ) Basophil 0.5 LAB SEGN(LOINC 1.56-6.13 thou/cmm ) Abs. Neut 3.48 LAB IGAB(LOINC 0.00-0.05 thou/cmm ) Abs Immature Grans 0.02 LAB LYMN(LOINC 1.18-3.74 thou/cmm ) Abs. Lymph 1.59 LAB MONON(LOIN 0.27-0.70 thou/cmm C) Abs. [place] 0.32 LAB EOSN(LOINC 0.00-0.31 thou/cmm ) Abs. Eosin 0.10 LAB BASON(LOIN 0.01-0.08 thou/cmm C) Abs. Baso 0.03 Performed By: #### CBCD1 #### [place] [address] COMPREHENSIVE PANEL Collected: 11/22/2017 Status: F Source: [facility] 9:45 AM HEALTH SYSTEM REPOSITORY TYPE CODE TESTS RESULT OUT OF REFERENCE UNITS RANGE LAB NA(LOINC) 136-145 mEq/L Sodium Blood 137 LAB K(LOINC) 3.5-5.1 mEq/L Potassium Blood 3.9 LAB CL(LOINC) 98-107 mEq/L Chloride Blood 106 LAB CO2(LOINC) 21-32 mEq/L CO2 Blood 24 LAB GLU(LOINC) 70-99 mg/dL Glucose High Blood 108 LAB BUN(LOINC) 7-18 mg/dL BUN Blood 13 LAB CREA(LOINC 0.51-0.95 mg/dL ) Low Creatinine Blood 0.49 LAB CA(LOINC) 8.5-10.1 mg/dL Low Calcium Blood 8.3 LAB ALB(LOINC) 3.4-5.0 g/dL Albumin Blood 3.6 LAB TP(LOINC) 6.4-8.2 g/dL Total Protein 6.8 LAB AST(LOINC) 9-37 U/L AST-SGOT Blood 13 LAB ALT(LOINC) 12-78 U/L ALT-SGPT Blood 14 LAB ALKP(LOINC 46-116 U/L ) Alk Phosphatase 67 LAB BILIT(LOIN 0.2-1.0 mg/dL C) Total Bilirubin 0.3 LAB ANGAP(LOIN 8-16 C) Anion Gap 11 Performed By: #### P14 #### [facility] [address] [place] [address] MAGNESIUM BLOOD Collected: 11/22/2017 Status: F Source: [facility] 9:45 AM HEALTH SYSTEM REPOSITORY TYPE CODE TESTS RESULT OUT OF REFERENCE UNITS RANGE LAB MAG(LOINC) 1.6-2.6 mg/dL Magnesium Blood 2.0 Performed By: #### MAG #### [place] [address] PHOSPHORUS BLOOD Collected: 11/22/2017 Status: F Source: [facility] 9:45 AM HEALTH SYSTEM REPOSITORY TYPE CODE TESTS RESULT OUT OF REFERENCE UNITS RANGE LAB PHOS(LOINC 2.5-4.9 mg/dL ) Phosphorus Blood 2.7 Performed By: #### PHOS #### [place] [address] MDRD GFR Collected: 11/22/2017 Status: F Source: [facility] 9: AM HEALTH SYSTEM REPOSITORY TYPE CODE TESTS RESULT OUT OF RANGE REFERENCE UNITS LAB GFRFN(LOINC >60mL/min/1.73m ) 2 eGFR >60 Result Comment: If the patient is , multiply the result by 1.210. Performed By: #### GFR #### [place] [address] TSH, 3RD GENERATION Collected: 11/22/2017 Status: F Source: [facility] 9:45 AM HEALTH SYSTEM REPOSITORY TYPE CODE TESTS RESULT OUT OF REFERENCE UNITS RANGE LAB TSH3(LOINC 0.358-3.740 uIU/mL ) TSH, 3rd generation 0.476 Performed By: #### TSH3 #### [place] [address] PROTIME Collected: 11/22/2017 Status: F Source: [facility] 9:45 AM HEALTH SYSTEM REPOSITORY TYPE CODE TESTS RESULT OUT OF REFERENCE UNITS RANGE LAB PTI(LOINC) 9.3-11.9 sec Prothrombin Time 9.9 LAB INR(LOINC) INR 0.92 Result Comment: Standard Therapy 2.0-3.0 High Dose 2.5-3.5 Performed By: #### PT #### [facility] [address] [place], [place] [address] ACTIVATED PTT Collected: 11/22/2017 Status: F Source: [facility] 9:45 AM HEALTH SYSTEM REPOSITORY TYPE CODE TESTS RESULT OUT OF REFERENCE UNITS RANGE LAB APTT(LOINC 22.0-34.0 sec ) Activated PTT 24.1 Performed By: #### APTT #### [facility] [address] [place], [place] [address] PROGRESS Observed: 11/21/2017 Status: COMPLETED Source: [place] [place] 12:22 PM [facility] REPOSITORY O ID: [id number] Author: Rodo (Pt) Oh Service: (none) Author Type: Physical Therapist Type: Progress Notes Filed: 11/21/2017 12:37 PM Note Text: Episode Visit Count: 1 Therapist That Will Oversee The Plan Of Care: Rodo Casiano Start of Care Date: 11/21/17 Plan of Care Certification Date: 11/21/17 Patient Identified by Name and Date of : Yes REHABILITATION AND SPORTS THERAPY PHYSICAL THERAPY EVALUATION PLAN OF CARE: Assessment: Indigo Meier presents with the chief complaint of chronic right ankle pain. She presents with impairments of limited dorsiflexion, decreased foot and ankle strength, decreased tolerance for standing, walking, and ADLs. She may benefit from skilled therapy services to improve the above noted deficits to return to prior level of function and decrease pain. Goals for Episode of Care: created on 11/21/17 through 01/19/18 [place] in home exercise program. Patient will decrease pain rating by 2 points to meet minimal clinical important difference for numeric pain rating scale. Patient will decrease pain to 0/10 with functional activities to allow patient to improve ambulation and standing tolerance for ADLs. Patient will increase active ROM of right ankle dorsiflexion by 5 degrees to allow pt to improved performance of ADLs and to normalize gait mechanics / gait pattern . Patient will increase strength of right ankle in all motions to 5/5 to allow for return to prior functional status, normalized gait mechanics, perform ADLs and negotiate stairs. Perform walking and standing with decreased report of symptoms/pain in 4 weeks. Demonstrate improvement on functional score: Patient will increase his/her score on the Lower Extremity Functional Scale by at least 9 points to indicate a Minimal Clinical Important Difference. Planned Interventions, Frequency, and Duration: Current Frequency: 2x/week Duration: 4 weeks Total Number of Visits Planned: 8 Patient to be see for Planned Treatment Interventions: Therapeutic exercise;Neuromuscular re-education;Manual therapy;Self-assisted management;Patient/Family/Caregiver Education PLAN FOR NEXT VISIT: Add BAPS, prostretch, Band resisted strengthening Patient demonstrates good understanding of plan of care and treatment. The above goals and plan of care were discussed and agreed upon by patient/family. SUBJECTIVE: Indigo Meier is a 42 year old female seen today for Pt comes in today for chronic ankle sprains and an old avulsion fraction. Pt has sprained the ankle twince this past year with this second time being the most prominent and painful. Pain is on the inside of her ankle despite bone spur and fracture is on the outside. Pt has difficulty walking long distances, she uses an air cast and ices currently when it is hurting. Swelling is down currently, but it really ballooned up last time she sprained it. Standing on it too long can make it hurt as well. Pain Score: 6/10 Pain Location: Ankle - Right Description: Sharp Frequency: Intermittent OBJECTIVE MEASURES WITH LEVEL OF FUNCTION: Ankle Observations R Ankle Girth - Figure 8 (cm): 22.5 L Ankle Girth - Figure 8 (cm): 21 R Ankle Palpation Tenderness: Posterior tibialis;Anterior talofibular ligament LE AROM R Ankle Dorsiflexion: 7 Degrees R Ankle Plantar Flexion: 60 Degrees R Ankle Inversion: 40 R Ankle Eversion: 18 L Ankle Dorsiflexion: 10 Degrees L Ankle Plantar Flexion: 65 Degrees L Ankle Inversion: 50 L Ankle Eversion: 18 LE Strength R Ankle Dorsiflexion: 4+/5 R Ankle Plantar Flexion: 5/5 R Ankle Inversion: 4+/5 R Ankle Eversion: 4/5 R Great Toes Extension (L5, S1): 5/5 L Ankle Dorsiflexion: 5/5 L Ankle Plantar Flexion: 5/5 L Ankle Inversion: 5/5 L Ankle Eversion: 5/5 L Great Toes Extension (L5, S1): 5/5 Education: Education Learning Preferences: Demonstration;Explanation;Performance;Printed Materials Barriers: None Learning/educational needs: Home exercise program;Plan of Care Education Provided: Yes, see treatment interventions for education provided Education Provided To: Patient Education Mode/Type: Demonstration;Explanation/Discussion;Literature/Printed Materials;Performance;Teach Back Response to Education/Teach Back: States/Identifies;Return Demonstration TREATMENT: Evaluation Therapeutic Exercise: 1: Gastroc stretch 2x30 sec 2: Ankle alphabet 2x 3: Toe towel scrunch 3x fatigue Skilled Intervention: Patient was educated in proper exercise technique and purpose for exercises. Skilled judgment was provided in selection of appropriate interventions. Provided written instruction for home exercise program to facilitate proper performance and compliance. Correct performance of therapeutic exercises was facilitated with verbal, visual and tactile cuing. Manual Therapy: 1: STM to plantar fascia and post tib tendon with tennis ball x5 minutes 2: Active release with tennis ball to post tib tender spot, active dorsi/plantarflexion 3x until pain is gone in multiple spots Skilled Intervention: Manual skills to improve joint mobility, ROM, and decrease pain. Utilized anatomy knowledge of the therapist, and assessment of patient's response to intervention. Billing: [facility]: Evaluation - Low Complexity (43913) Therapeutic Exercise (17094): 1:1 time: 10 minutes (1 unit: 8-22 mins) Manual Therapy (52587): 1:1 time: 13 minutes (1 unit: 8-22 mins) Total time: 45 minutes Rodo Casiano PT CNTHERAPY Observed: 11/21/2017 Status: COMPLETED Source: [place] 11:15 AM [facility] REPOSITORY OT/PT/Speech Visit (PTWS) INDIGO MEIER ([id number]) 1975 F Date Time Provider Department 11/21/17 11:15 AM RODO CASIANOPT) PTWS Date Time Provider Department Center 11/21/2017 11:15 AM [id number], SEAN (PT)PTWS [facility] MARIA FERNANDA Reason for Visit: PT Eval [747] Physical Therapy [503] PT Discharge [752] Reason For Visit History Recorded Primary Visit Diagnosis:Peroneal tendonitis of right lower extremity [M76.71] Allergies As of Date: 11/21/2017 (No Known Allergies) Date Reviewed: 10/24/2017 Reviewed by: Dianne Victor Ma - Fully Assessed Prescriptions as of 11/21/2017 Sig: COMPOUNDED PRESCRIPTION Massage Therapy: Eval and Luis Felipe* METOPROLOL TARTRATE 50 MG TAB* Take 1 tablet by mouth twice * X IBUPROFEN 600 MG TABLET Take 1 tablet by mouth every * SIMVASTATIN 10 MG TABLET Take 1 tablet by mouth once d* CHOLECALCIFEROL (VITAMIN D3) * Take 1 capsule by mouth once * CYCLOBENZAPRINE 10 MG TABLET Take 1 tablet by mouth twice * Progress Notes: Rodo Casiano, PT 11/21/2017 12:37 PM Signed Episode Visit Count: 1 Therapist That Will Oversee The Plan Of Care: Rodo Casiano Start of Care Date: 11/21/17 Plan of Care Certification Date: 11/21/17 Patient Identified by Name and Date of : Yes REHABILITATION AND SPORTS THERAPY PHYSICAL THERAPY EVALUATION PLAN OF CARE: Assessment: Indigo Meier presents with the chief complaint of chronic right ankle pain. She presents with impairments of limited dorsiflexion, decreased foot and ankle strength, decreased tolerance for standing, walking, and ADLs. She may benefit from skilled therapy services to improve the above noted deficits to return to prior level of function and decrease pain. Goals for Episode of Care: created on 11/21/17 through 01/19/18 [place] in home exercise program. Patient will decrease pain rating by 2 points to meet minimal clinical important difference for numeric pain rating scale. Patient will decrease pain to 0/10 with functional activities to allow patient to improve ambulation and standing tolerance for ADLs. Patient will increase active ROM of right ankle dorsiflexion by 5 degrees to allow pt to improved performance of ADLs and to normalize gait mechanics / gait pattern . Patient will increase strength of right ankle in all motions to 5/5 to allow for return to prior functional status, normalized gait mechanics, perform ADLs and negotiate stairs. Perform walking and standing with decreased report of symptoms/pain in 4 weeks. Demonstrate improvement on functional score: Patient will increase his/her score on the Lower Extremity Functional Scale by at least 9 points to indicate a Minimal Clinical Important Difference. Planned Interventions, Frequency, and Duration: Current Frequency: 2x/week Duration: 4 weeks Total Number of Visits Planned: 8 Patient to be see for Planned Treatment Interventions: Therapeutic exercise;Neuromuscular re-education;Manual therapy;Self-assisted management;Patient/Family/Caregiver Education PLAN FOR NEXT VISIT: Add BAPS, prostretch, Band resisted strengthening Patient demonstrates good understanding of plan of care and treatment. The above goals and plan of care were discussed and agreed upon by patient/family. SUBJECTIVE: Indigo Meier is a 42 year old female seen today for Pt comes in today for chronic ankle sprains and an old avulsion fraction. Pt has sprained the ankle twince this past year with this second time being the most prominent and painful. Pain is on the inside of her ankle despite bone spur and fracture is on the outside. Pt has difficulty walking long distances, she uses an air cast and ices currently when it is hurting. Swelling is down currently, but it really ballooned up last time she sprained it. Standing on it too long can make it hurt as well. Pain Score: 6/10 Pain Location: Ankle - Right Description: Sharp Frequency: Intermittent OBJECTIVE MEASURES WITH LEVEL OF FUNCTION: Ankle Observations R Ankle Girth - Figure 8 (cm): 22.5 L Ankle Girth - Figure 8 (cm): 21 R Ankle Palpation Tenderness: Posterior tibialis;Anterior talofibular ligament LE AROM R Ankle Dorsiflexion: 7 Degrees R Ankle Plantar Flexion: 60 Degrees R Ankle Inversion: 40 R Ankle Eversion: 18 L Ankle Dorsiflexion: 10 Degrees L Ankle Plantar Flexion: 65 Degrees L Ankle Inversion: 50 L Ankle Eversion: 18 LE Strength R Ankle Dorsiflexion: 4+/5 R Ankle Plantar Flexion: 5/5 R Ankle Inversion: 4+/5 R Ankle Eversion: 4/5 R Great Toes Extension (L5, S1): 5/5 L Ankle Dorsiflexion: 5/5 L Ankle Plantar Flexion: 5/5 L Ankle Inversion: 5/5 L Ankle Eversion: 5/5 L Great Toes Extension (L5, S1): 5/5 Education: Education Learning Preferences: Demonstration;Explanation;Performance;Printed Materials Barriers: None Learning/educational needs: Home exercise program;Plan of Care Education Provided: Yes, see treatment interventions for education provided Education Provided To: Patient Education Mode/Type: Demonstration;Explanation/Discussion;Literature/Printed Materials;Performance;Teach Back Response to Education/Teach Back: States/Identifies;Return Demonstration TREATMENT: Evaluation Therapeutic Exercise: 1: Gastroc stretch 2x30 sec 2: Ankle alphabet 2x 3: Toe towel scrunch 3x fatigue Skilled Intervention: Patient was educated in proper exercise technique and purpose for exercises. Skilled judgment was provided in selection of appropriate interventions. Provided written instruction for home exercise program to facilitate proper performance and compliance. Correct performance of therapeutic exercises was facilitated with verbal, visual and tactile cuing. Manual Therapy: 1: STM to plantar fascia and post tib tendon with tennis ball x5 minutes 2: Active release with tennis ball to post tib tender spot, active dorsi/plantarflexion 3x until pain is gone in multiple spots Skilled Intervention: Manual skills to improve joint mobility, ROM, and decrease pain. Utilized anatomy knowledge of the therapist, and assessment of patient's response to intervention. Billing: [facility]: Evaluation - Low Complexity (41106) Therapeutic Exercise (16331): 1:1 time: 10 minutes (1 unit: 8-22 mins) Manual Therapy (30985): 1:1 time: 13 minutes (1 unit: 8-22 mins) Total time: 45 minutes YOVANY Arias PT 03/27/2018 8:00 AM Signed [facility] REHABILITATION AND SPORTS THERAPY PHYSICAL THERAPY DISCONTINUANCE OF CARE Plan of Care Period: Start of Care Date: 11/21/17 Last Visit Date: 11/21/2017 Therapy Program: Patient did not return for follow up care as planned. Please refer to last visit note for interventions provided for this episode of care. Assessment: Unable to formally assess goal achievement due to non-compliance with therapy plan of care. Reason for Discontinuation of Care: Patient has not returned to therapy or scheduled additional follow-up appointments. Rodo Casiano PT EMERGENCY DEPARTMENT Observed: 11/05/2017 Status: F Source: [facility] SUMMARY 9:04 PM [facility] REPOSITORY [facility] Medical Records Department [address] [place] [address] Emergency Department Summary 11/05/17 1823 MR#: [id number] Acct: [id number] Name: INDIGO MEIER Rep #: [id number] : 1975 41 From: Sander Rocha MD PCP: Guillermo Sheffield MD Status: DEP ER - ER Visit Summary Date of Service: 11/05/17 Chief Complaint: Postoperative infection History of Present Illness: The patient is a [address] Sheffield. She reports that she had a small cyst removed from her left upper eyelid [address] Leblanc. States that yesterday the area became red and painful. She describes a throbbing, tight pain that is 6 out of 10 in severity. Is relieved by ibuprofen and hot compresses. She has been placing Neosporin on the area. She reports that she has expressed a small amount of pus. She denies any change in her vision. No fever or chills. Physical Examination: Vitals: Stable. Afebrile. General: Well-nourished and well-developed. Head: Normocephalic atraumatic. Left eye: There is a 2 mm scab to the medial side of her upper eyelid with approximately 0.5 cm of surrounding erythema. There is no fluctuance or purulent drainage that I can express. She has no conjunctival injection. Extraocular motions are intact. Neck: Supple, no lymphadenopathy. No JVD. Nontender. Cardiovascular: Regular rate and rhythm. No murmurs. Respiratory: No respiratory distress. Clear to auscultation bilaterally. Abdominal: Soft, nontender, nondistended, normal bowel sounds. No guarding, rebound, or peritoneal signs. Back: Nontender. Extremities: Nontender, no edema. Skin: Normal color, no rash. Neurologic: Alert and oriented 3. Cranial nerves II through XII are intact. Normal strength and sensation. Psych: Normal affect. Emergency Department Course and Treatment: Patient was given a dose of doxycycline and [place]. At this time I do not think me performing an I AND D is in her best interest. Treatment Plan: She will be discharged on doxycycline and 12 [place]. Instructed to use warm compresses. Follow-up with Dr. Leblanc in 1-2 days for another exam. Disposition: To home in improved and stable condition. Impression: 1. 5 days status post left upper eyelid surgery. 2. Cellulitis left upper eyelid. This note was generated with [email or web address] dictation software. It may contain incorrect words, spelling, and punctuation that were not noted in review of the chart prior to signing ED Disposition - Plan for ED Patient: Disposition: Home or Assisted Living Chief Complaint: Eye Problem Instructions: ED Staph Infec Abx Tx Only Prescriptions: Hydrocodone Bitart/Apap 5-325 [Greenup 5/325] 1 - 2 tablet PO Q4H PRN PRN 3 Days #12 tablet PRN Reason: Pain Doxycycline Monohydrate 100 mg PO BID #20 capsule Additional Instructions: Follow-up with Dr. Leblanc as soon as possible for another exam. What to do if you have Problems For any increased pain, shortness of breath, bleeding, nausea or vomiting, chest pain, or any unexpected problems, contact your Primary Care Provider. Call [employer] [facility] ([phone]) or report to the closest Emergency Room. Call 911 if necessary. 11/05/172103 <Electronically signed by Sander Rocha MD> Date Sander Rocha MD Cosigner Signature (If Indicated): Date CC: Guillermo Sheffield MD PROGRESS Observed: 10/24/2017 Status: COMPLETED Source: [place] 8:23 AM [facility] REPOSITORY O ID: [id number] Author: Maria Luisa Summers Service: (none) Author Type: Physician Type: Progress Notes Filed: 10/24/2017 9:11 AM Note Text: [facility] Referral/Primary Care Physician: Guillermo Sheffield MD [address] [facility] [place] [address] CHIEF COMPLAINT: This is a 41 year old right-handed woman who is here for evaluation of seizures. PRESENT ILLNESS: Seizures began 1-2 year ago. 41 year old woman with spells. She thinks about 10 years ago she states she has had dizzy spells. She has now had spells that have evolved. She states she feels dizziness with blurred vision and does not feel stable. When this evolves she is out of it. Her friend, she seems to be hurting and her head hurts. She is then noted to not be able to talk. She herself reports she can hear people but she can not talk and he states she does not respond. She then gets shaking of hands. She also reports she numb all over. She can try to direct and point to what she is trying to communicate. Afterwards she may be tired, fall asleep, be confused. She has a headache afterwards. Duration of the symptoms can last several minutes. The episodes are triggered by stress. She admits to significant anxiety. She tries to control this. Frequency: 1. spells where she feels dizzy; happens every day 2. full blown; 1 per week to 1 per month. Psychiatric diagnosis: 1. anxiety (generalized) with panic disorder 2. conversion disorder? No diagnosis of PTSD, OCD or formal bipolar She previously saw neurologist. She was and Early Development: normal RISK FACTORS FOR SEIZURES: 1. Head Trauma (Yes, 2002, see below) 2. GUN STOCK [employer]ER Infections (No) 3. Family History of Seizures (No) 4. Developmental Delay (No) 5. Febrile Seizures (No) 6. GUN STOCK MAKER Tumors (No) 7. GUN STOCK MAKER Vascular Disease (No) 8. Significant Medical History (No) CURRENT ANTICONVULSANTS: None PAST MEDICAL HISTORY: Diagnosis Date - Chronic back pain - GERD (gastroesophageal reflux disease) - Hemorrhoids - Hyperlipidemia 2011 - Hyperlipidemia LDL goal < 130 05/03/2012 - Hypertension - Marijuana use 2002 She had a history of falling and hitting her head (laceration). She had headaches at that time. Right side top of the head and sometimes more full blown with sensitivity to light and sound. Headaches can be to varying degrees daily. Treated in the past with Midrin. 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 Additional review as follows: CONST: no change in weight; no lightheadedness; no fevers, chills, or night sweats. There have been no headaches. EYES: no double vision; no blurred vision ENT: no change in hearing; no trouble swallowing NEURO: see HPI CARD: no chest pain or palpitations, no leg edema RESP: no shortness of breath or cough : no urinary urgency, frequency, or hematuria GI: no abdominal pain or change in bowel habits MUSC: concern about fibromyalgia HEME: no bruising, bleeding, or swollen glands. PSYCHE: anxious all the time; hard to manage. No currently seeing a counselor. Depression: yes Ariane: no Irritability: no Change sleep patterns: no Anhedonia: no Guilt/Hopelessness: no Passive suicidal ideation: yes at times Active Suicidal Ideation: no KP screen: reviewed PHQ 6, TAMEKA 15 SLEEP: some nights sleeps well, other nights she has some insomnia (can go for a couple of days), she is always tired. All other organ systems are unremarkable. GENERAL EXAMINATION: BP 129/88 (BP Site: Left Arm, BP Position: Sitting, BP Cuff Size: Regular Adult) Pulse 73 Temp 36.7 ?C (98.1 ?F) Resp 20 Ht 157.5 cm (5' 2) Wt 73.5 kg (162 lb) LMP 10/05/2017 SpO2 97% BMI 29.63 kg/m2 Alert, in no acute distress. Skin is normal without neurocutaneous stigmata. HEENT examination is normal. Hair is normal. There is no trauma. Eyes are clear without icterus or injection. Mouth clear. There is no thyromegaly or adenopathy. Chest is clear to auscultation without wheezes rales or rhonchi. Cardiovascular examination is normal without carotid or ocular bruits. Heart is regular without murmur. Neurological: Mental Status: awake alert, no cortical deficits. Cranial Nerves: ? CN 2-12 intact ? UE and LE 5/5 reflexes 2+ no pathological reflexes ? LT, JPS, scratch ? gait is normal DATA: EEG History synopsis ? The patient is a 41 year old female who presents to the [facility] ? EEG Lab with a complaint of a new onset of an episodes of seizure like ? symptoms. She has experienced several over the past 8 months and ? describes a typical episode as occurring during times of stress becomes ? unresponsive and unable to speak but can hear, feels disoriented and ? confused, then has generalized shaking and her eyes roll backward. These ? last anywhere from 5-15 minutes with post-ictal fatigue. Classification ? Abnormal III (Awake, Drowsy, 10-20 Scalp Electrodes, Anterior temporal ? electrodes) ? 1 ? ?Sharp Wave, Regional Left Frontal Impression ? 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 No EEG seizures were ? seen during this recording. Personally reviewed IMPRESSION: 41 year old woman with history of spells. Clinically spells are not typical for a particular diagnosis. The differential considerations including focal seizures in light of recent EEG suggesting left frontal sharp waves, versus non epileptic events or atypical migraine episodes as headache is associated with these episodes. She is having daily episodes to varied intensity and given the history I do think the critical issue is to clarify diagnosis, assess any additional seizure burden given routine EEG findings in order to treat appropriately. PLAN: Specific tests order in the case include: 1. MRI brain 2. video EEG monitoring for diagnostic clarification of spells Following treatment in this case include: 1. defer AED treatment at this time 2. if + seizure; start topiramate with goal of 150 mg bid; if - for seizures, target lower dose of topiramata for migraine (50 mg at night, up to 50 mg bid) + CBT therapy with Dr Harris. 3. okay for her to start cymbalta (discussion she had with Dr Sheffield- no contraindication with our testing and treatment) The following instructions, counseling were provided to the patient: 1. Diagnosis of seizures versus non epileptic events, conversion disorder 2. goals of monitoring for diagnosis and optimization of management Return to clinic is planned for approximately 3 months All questions were answered to the best of my ability and patient verbalized understanding of the plan of care and agreed. Total time spent 45 minutes, >50% of the time spent on support and counseling. A copy of this note was electronically submitted to the referring physician/primary care physician by the same route: Guillermo Sheffield MD [address] [place] [address] Thank you for allowing me to participate in the neurologic care of this patient. Maria Luisa Summers MD, PhD Staff, [facility] and General Neurology Clinical [place] Workerautomobile radiator mechanic, [facility] Board Certified, Epilepsy and Neurology Please route this encounter to the EMU Scheduling Pool (P EMU) or PMU Scheduling Pool (P PMU) through LOS AND Follow up PHASE 1.0 AND 1.5 ORDER SYNOPSIS Patient: Indigo Meier ([id number]) (home) [phone] (cell) Insurance: Pay[facility]: [facility] [place] Plan: [facility] MEDICAID / Product Type: Medicaid / ----- Target Date: when able Number of days requested: 7 Admission Type: Regular Admission Location: > [place] Purpose: Diagnosis Sphenoidal monitoring: No Electrode placement: Standard Urgent admissions only Please answer the following: Diagnosis/Reason Pertinent medical history Mobility Status: ----- Appointments and tests: - non-invasive video-EEG monitoring (EMU/PMU) For Phase 1.0 orders, please answer the following questions: 1. Are seizures of unclear diagnosis and/or nonepileptic? Yes 2. Is epilepsy surgery being considered and requires video- EEG monitoring for the first phase of testing? No 3. Is this an ictal SPECT admission? No 4. Is the video-EEG recommended to assess daily EEG seizure burden, address new and concerning symptom-sign complex, and/or clarify syndromic epilepsy diagnosis? No 5. Is this patient on the ketogenic diet, modified Atkins' diet, or any other special diet for epilepsy? Is this admission to initiate the ketogenic diet? No (If YES to any diet questions, notify Neur Ep Keto Epilepsy Pool (P Neur Ep Keto) via [employer] staff message) Please route this encounter to the EMU Scheduling pool (P EMU) or PMU Scheduling pool (P PMU) through LOS AND Follow up Scheduling coordinators: For all VNS patients being scheduled for ELICIA, please schedule VNS off/on office visits. JODIE Observed: 10/24/2017 Status: COMPLETED Source: [place] 7:40 AM [facility] REPOSITORY Office Visit (NEEPFV) INDIGO MEIER ([id number]) 1975 F Date Time Provider Department 10/24/17 7:40 AM MARIA LUISA SUMMERS During your visit today, we recorded the following information about you: Temperature Pulse Respiration Blood pressure 98.1 degrees 73/minute 20/minute 129/88 Weight Height 73.5 kg 1.575 m Maria Luisa Summers MD PHD 10/24/2017 9:11 AM Signed [facility] Referral/Primary Care Physician: Guillermo Sheffield MD [address] [place] [address] CHIEF COMPLAINT: This is a 41 year old right-handed woman who is here for evaluation of seizures. PRESENT ILLNESS: Seizures began 1-2 year ago. 41 year old woman with spells. She thinks about 10 years ago she states she has had ANDquot;dizzy spellsANDquot;. She has now had spells that have evolved. She states she feels ANDquot;dizzinessANDquot; with blurred vision and does not feel stable. When this evolves she is ANDquot;out of itANDquot;. Her friend, she seems to be hurting and her head hurts. She is then noted to not be able to talk. She herself reports she can hear people but she can not talk and he states she does not respond. She then gets shaking of hands. She also reports she ANDquot;numb all overANDquot;. She can try to direct and point to what she is trying to communicate. Afterwards she may be tired, fall asleep, be confused. She has a headache afterwards. Duration of the symptoms can last several minutes. The episodes are triggered by stress. She admits to significant anxiety. She tries to control this. Frequency: 1. spells where she feels dizzy; happens every day 2. full blown; 1 per week to 1 per month. Psychiatric diagnosis: 1. anxiety (generalized) with panic disorder 2. conversion disorder? No diagnosis of PTSD, OCD or formal bipolar She previously saw neurologist. She was and Early Development: normal RISK FACTORS FOR SEIZURES: 1. Head Trauma (Yes, 2002, see below) 2. GUN STOCK MAKER Infections (No) 3. Family History of Seizures (No) 4. Developmental Delay (No) 5. Febrile Seizures (No) 6. GUN STOCK MAKER Tumors (No) 7. GUN STOCK MAKER Vascular Disease (No) 8. Significant Medical History (No) CURRENT ANTICONVULSANTS: None PAST MEDICAL HISTORY: Diagnosis Date - Chronic back pain - GERD (gastroesophageal reflux disease) - Hemorrhoids - Hyperlipidemia 2011 - Hyperlipidemia LDL goal ANDlt; 130 05/03/2012 - Hypertension - Marijuana use 2002 She had a history of falling and hitting her head (laceration). She had headaches at that time. Right side top of the head and sometimes more full blown with sensitivity to light and sound. Headaches can be to varying degrees daily. Treated in the past with Midrin. 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 Additional review as follows: CONST: no change in weight; no lightheadedness; no fevers, chills, or night sweats. There have been no headaches. EYES: no double vision; no blurred vision ENT: no change in hearing; no trouble swallowing NEURO: see HPI CARD: no chest pain or palpitations, no leg edema RESP: no shortness of breath or cough : no urinary urgency, frequency, or hematuria GI: no abdominal pain or change in bowel habits MUSC: concern about fibromyalgia HEME: no bruising, bleeding, or swollen glands. PSYCHE: anxious all the time; hard to manage. No currently seeing a counselor. Depression: yes Ariane: no Irritability: no Change sleep patterns: no Anhedonia: no Guilt/Hopelessness: no Passive suicidal ideation: yes at times Active Suicidal Ideation: no KP screen: reviewed PHQ 6, TAMEKA 15 SLEEP: some nights sleeps well, other nights she has some insomnia (can go for a couple of days), she is always tired. All other organ systems are unremarkable. GENERAL EXAMINATION: BP 129/88 (BP Site: Left Arm, BP Position: Sitting, BP Cuff Size: Regular Adult) Pulse 73 Temp 36.7 ?C (98.1 ?F) Resp 20 Ht 157.5 cm (5' 2ANDquot;) Wt 73.5 kg (162 lb) LMP 10/05/2017 SpO2 97% BMI 29.63 kg/m2 Alert, in no acute distress. Skin is normal without neurocutaneous stigmata. HEENT examination is normal. Hair is normal. There is no trauma. Eyes are clear without icterus or injection. Mouth clear. There is no thyromegaly or adenopathy. Chest is clear to auscultation without wheezes rales or rhonchi. Cardiovascular examination is normal without carotid or ocular bruits. Heart is regular without murmur. Neurological: Mental Status: awake alert, no cortical deficits. Cranial Nerves: ? CN 2-12 intact ? UE and LE 5/5 reflexes 2+ no pathological reflexes ? LT, JPS, scratch ? gait is normal DATA: EEG History synopsis ? The patient is a 41 year old female who presents to the [facility] ? EEG Lab with a complaint of a new onset of an episodes of seizure like ? symptoms. She has experienced several over the past 8 months and ? describes a typical episode as occurring during times of stress becomes ? unresponsive and unable to speak but can hear, feels disoriented and ? confused, then has generalized shaking and her eyes roll backward. These ? last anywhere from 5-15 minutes with post-ictal fatigue. Classification ? Abnormal III (Awake, Drowsy, 10-20 Scalp Electrodes, Anterior temporal ? electrodes) ? 1 ? ?Sharp Wave, Regional Left Frontal Impression ? 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 No EEG seizures were ? seen during this recording. Personally reviewed IMPRESSION: 41 year old woman with history of spells. Clinically spells are not typical for a particular diagnosis. The differential considerations including focal seizures in light of recent EEG suggesting left frontal sharp waves, versus non epileptic events or atypical migraine episodes as headache is associated with these episodes. She is having daily episodes to varied intensity and given the history I do think the critical issue is to clarify diagnosis, assess any additional seizure burden given routine EEG findings in order to treat appropriately. PLAN: Specific tests order in the case include: 1. MRI brain 2. video EEG monitoring for diagnostic clarification of spells Following treatment in this case include: 1. defer AED treatment at this time 2. if + seizure; start topiramate with goal of 150 mg bid; if - for seizures, target lower dose of topiramata for migraine (50 mg at night, up to 50 mg bid) + CBT therapy with Dr Harris. 3. okay for her to start cymbalta (discussion she had with Dr Sheffield- no contraindication with our testing and treatment) The following instructions, counseling were provided to the patient: 1. Diagnosis of seizures versus non epileptic events, conversion disorder 2. goals of monitoring for diagnosis and optimization of management Return to clinic is planned for approximately 3 months All questions were answered to the best of my ability and patient verbalized understanding of the plan of care and agreed. Total time spent 45 minutes, ANDgt;50% of the time spent on support and counseling. A copy of this note was electronically submitted to the referring physician/primary care physician by the same route: Guillermo Sheffield MD [address] [place] [address] Thank you for allowing me to participate in the neurologic care of this patient. Maria Luisa Summers MD, PhD Staff, [facility] General Neurology Clinical [place] Workerautomobile radiator mechanic, [facility] Board Certified, Epilepsy and Neurology Please route this encounter to the EMU Scheduling Pool (ANDquot;P EMUANDquot;) or PMU Scheduling Pool (ANDquot;P PMUANDquot;) through ANDquot;LOS ANDamp; Follow upANDquot; PHASE 1.0 AND 1.5 ORDER SYNOPSIS Patient: Indigo Meier ([id number]) (home) [phone] (cell) Insurance: Payor: [employer]ICA[employer] / Plan: [employer] / Product Type: Medicaid / Target Date: when able Number of days requested: 7 Admission Type: Regular Admission Location: [place]; [place] Purpose: Diagnosis Sphenoidal monitoring: No Electrode placement: Standard Urgent admissions only Please answer the following: Diagnosis/Reason Pertinent medical history Mobility Status: Appointments and tests: - non-invasive video-EEG monitoring (EMU/PMU) For Phase 1.0 orders, please answer the following questions: 1. Are seizures of unclear diagnosis and/or nonepileptic? Yes 2. Is epilepsy surgery being considered and requires video- EEG monitoring for the first phase of testing? No 3. Is this an ictal SPECT admission? No 4. Is the video-EEG recommended to assess daily EEG seizure burden, address new and concerning symptom-sign complex, and/or clarify syndromic epilepsy diagnosis? No 5. Is this patient on the ketogenic diet, modified Atkins' diet, or any other special diet for epilepsy? Is this admission to initiate the ketogenic diet? No (If YES to any diet questions, notify Neur Ep Keto Epilepsy Pool (ANDquot;P Neur Ep KetoANDquot;) via [employer] staff message) Please route this encounter to the EMU Scheduling pool (ANDquot;P EMUANDquot;) or PMU Scheduling pool (ANDquot;P PMUANDquot;) through ANDquot;LOS ANDamp; Follow upANDquot; Scheduling coordinators: For all VNS patients being scheduled for ELICIA, please schedule VNS off/on office visits. Referring Provider: GUILLERMO SHEFFIELD [[id number]] Allergies As of Date: 10/24/2017 (No Known Allergies) Date Reviewed: 10/24/2017 Reviewed by: Dianne Victor Ma - Fully Assessed Reason for Visit: New Patient [172] Primary Visit Diagnosis:Convulsions, unspecified convulsion type (HCC) [R56.9] Other Visit Diagnosis:Nonspecific abnormal electroencephalogram (EEG) [R94.01] Order(s):EEG MONITORING ADULT EMU (24 HOUR WITH VIDEO) [[id number]] Order #: [id number]: 1 MRI BRAIN WO IVCON [[id number]] Order #: [id number] FUTURE Prescriptions as of 10/24/2017 Sig: METOPROLOL TARTRATE 50 MG TAB* Take 1 tablet by mouth twice * IBUPROFEN 600 MG TABLET Take 1 tablet by mouth every * SIMVASTATIN 10 MG TABLET Take 1 tablet by mouth once d* CHOLECALCIFEROL (VITAMIN D3) * Take 1 capsule by mouth once * CYCLOBENZAPRINE 10 MG TABLET Take 1 tablet by mouth twice * Problem List As Of Date 10/24/2017 Noted Resolved Anxiety state [F41.1] INVALID FOR* Other acne [L70.8] INVALID FOR* Pain in joint, lower leg [M25.569] INVALID FOR* Backache, unspecified [M54.9] INVALID FOR* More... Hyperlipidemia with target LDL less than 130 [E*INVALID FOR* HTN (hypertension) [I10] INVALID FOR*04/04/2016 Marijuana use [F12.90] INVALID FOR* More... 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 Sacroiliac joint pain [M53.3] INVALID FOR* Fibromyalgia [M79.7] INVALID FOR* Disposition: Return in about 3 months (around 01/22/2018). Follow-up and Disposition History Recorded Encounter Status:Closed by THANIA EUBANKS, MARIA LUISA PHD on 10/24/17 CNCO Observed: 10/18/2017 Status: COMPLETED Source: [place] 12:00 AM [facility] [place] REPOSITORY Letter Text Guidelines for low cholesterol, low triglyceride diets FOODS TO USE MEATS/FISH - Choose lean meats (chicken, turkey, veal, and nonfatty cuts of beef with excess fat trimmed; one serving = 3 oz. of cooked meat). Also, fresh or frozen fish, canned fish packed in water, and shellfish (lobster, crab, shrimp, oysters). Limit use to no more than one serving of one of these per week. Shellfish are high in cholesterol but low in saturated fat and should be used sparingly. Meats and fish should be broiled (martin or oven) or baked on a rack. EGGS - Egg substitutes and egg whites (use freely). Egg yolks (limit two per week). FRUITS - Eat three servings of fresh fruit per day (1 serving = 1/2 cup). Be sure to have at least one citrus fruit daily. Frozen or canned fruit with no sugar or syrup added may be used. VEGETABLES - Most vegetables are not limited (see Foods to Avoid). One dark green (string beans, escarole) or one deep yellow (squash) vegetable is recommended daily. Cauliflower, broccoli, and celery, as well as potato skins, are recommended for their fiber content (fiber is associated with cholesterol reduction). It is preferable to steam vegetables, but they may be boiled, strained, or braised with polyunsaturated vegetable oil (see below). BEANS - Dried peas or beans (1 serving = 1/2 cup) may be used as a bread substitute. NUTS - Almonds, walnuts, and peanuts may be used sparingly (1 serving = 1 tablespoon). Use pumpkin, sesame, or sunflower seeds. BREADS/GRAINS - One roll or one slice of whole grain or enriched bread may be used, or three soda crackers or four pieces of wei toast as a substitute. Spaghetti, rice or noodles (1/2 cup) or 1/2 large ear of corn may be used as a bread substitute. In preparing these foods, do not use butter or shortening; use soft margarine. Also use egg and sugar substitutes. Choose high fiber grains, such as oats and whole wheat. CEREALS - Use 1/2 cup of hot cereal or 1/4 cup of cold cereal per day. Add a sugar substitute if desired, with 99% fat-free or skim milk. MILK PRODUCTS - Always use 99% fat-free or skim milk, dairy products such as low-fat cheeses (abdi's, uncreamed diet cottage), low-fat yogurt, and powdered skim milk. FATS/OILS - Use soft (not stick) margarine, vegetable oils that are high in polyunsaturated fats (such as safflower, sunflower, soybean, corn, and cottonseed). Always refrigerate meat drippings to harden the fat and remove it before preparing gravies. DESSERTS/SNACKS - Limit to two servings per day; substitute each serving for a bread/cereal serving; ice milk or water sherbet (1/4 cup); unflavored gelatin or gelatin flavored with sugar substitute (1/2 cup); pudding prepared with skim milk (1/2 cup); egg white souffles; unbuttered popcorn (1 1/2 cups). Substitute carob for chocolate. BEVERAGES - Fresh fruit juices (limit to 4 oz. per day); black coffee; plain or herbal teas; soft drinks with sugar substitutes; club soda, preferably salt-free; cocoa made with skim milk or nonfat dried milk and water (sugar substitute added, if desired); clear broth. Alcohol - limit to two servings per day (see Foods to Avoid). MISCELLANEOUS - You may use the following freely: vinegar; spices; herbs; nonfat bouillon; mustard; Worcestershire sauce; soy sauce; flavoring essence. FOODS TO AVOID MEATS/FISH - Marbled beef, pork, nino, sausage and other pork products; fatty fowl (duck, goose); skin and fat of turkey and chicken; processed meats; luncheon meats (salami, bologna); frankfurters and fast food hambergers (they are loaded with fat); organ meats (kidneys, liver); canned fish packed in oil. EGGS - Limit egg yolks to two per week. FRUITS - Coconuts (rich in saturated fat) VEGETABLES - Avoid avocados. Starchy vegetables (potatoes, corn rae beans, dried peas, beans) may be used only if they are substitutes for a serving of bread or cereal. (Baked potato skin, however, is desirable for its fiber content). BEANS - Commercial baked beans with sugar and/or pork added. NUTS - Avoid nuts. Limit peanuts and walnuts to one tablespoonful per day. BREADS/GRAINS - Any baked goods with shortening and/or sugar. Commercial mixes with dried eggs and whole milk. Avoid sweet rolls, doughnuts, breakfast pastries (Angolan), and sweetened packaged cereals (the added sugar converts readily to triglycerides). MILK PRODUCTS - Whole milk and whole-milk packaged goods; cream; ice cream; whole-milk puddings, yogurt, or cheeses; nondairy cream substitutes. FATS/OILS - Butter, lard, animal fats, nino drippings, gravies, cream sauces, as well as palm and coconut oils. All these are high in saturated fats. Examine labels on cholesterol free products for hydrogenated fats. (These are oils that have been hardened into solids and in the process have become saturated.) DESSERTS/SNACKS - Fried snack foods like potato chips; chocolate; candies in general; jams, jellies, syrups; whole-milk puddings; ice cream and milk sherberts; hydrogenatd peanut butter. BEVERAGES - Sugared fruit juices and soft drinks; cocoa made with whole milk and/or sugar. When using alcohol (1 oz. liquor, 5 oz. beer, or 2 1/2 oz. dry table wine per serving), one serving must be substituted for one bread or cereal serving (limit two servings of alcohol per day). SPECIAL NOTES 1. Remember that even nonlimited foods should be used in moderation. 2. While on a cholesterol-lowering diet, be sure to avoid animal fats and marbled meats. 3. While on a triglyceride-lowering diet, be sure to avoid sweets and to control the amount of carbohydrates you eat (starchy foods such as flower, bread, or potatoes). 4. Buy a good low-fat cookbook, such as the one published by the [place] [employer]. 5. Consult your physician if you have any questions. Letter Text Guillermo Sheffield MD [facility] Indigo Meier [address] [place] [address] Clinic #: [id number] 10/18/2017 Dear Ms. Meier, I have received the results of your recent tests. The results of your Lipids tests were elevated, cholesterol lowering diet attatched. We can discuss this at your next visit. Please do not hesitate to contact me with any questions. Sincerely, Guillermo Sheffield MD [facility] Department electronically signed to expedite mailing CNOV Observed: 10/17/2017 Status: COMPLETED Source: PEN ARGYL 4:30 PM [facility] REPOSITORY Office Visit ([facility]OO[facility]) INDIGO MEIER ([id number]) 1975 F Date Time Provider Department 10/17/17 4:30 PM NOHELIA TAYLOR ([facility]) [facility]OO[facility] During your visit today, we recorded the following information about you: Blood pressure Weight Last Period 128/80 75.1 kg 10/05/17 NOHELIA TAYLOR CNP 10/17/2017 4:46 PM Signed Indigo Meier is a 41 year old female who presents for problem visit Vaginal bump for 1 week(s). HPI: pt states that there is ANDquot;cystANDquot; on the inner right labia. She has one on her eyelid and was concerned that it was the same thing on her labia. Pt denies any pain, burning, itching, or discharge. PAST MEDICAL HISTORY Diagnosis Date - Chronic back pain - GERD (gastroesophageal reflux disease) - Hemorrhoids - Hyperlipidemia 2011 - Hyperlipidemia LDL goal ANDlt; 130 05/03/2012 - Hypertension - Marijuana use PAST SURGICAL HISTORY Procedure Laterality Date - LIGATE FALLOPIAN TUBE Tubal ligation - REMOVAL GALLBLADDER Cholecystectomy FAMILY HISTORY Problem Relation Age of Onset - Hypertension Mother - Hyperlipidemia Mother - None Father - Diabetes Brother - Hyperlipidemia Brother - Asthma Son - Allergies Son - Allergies Son - Cancer Sister 41 cervical, ?lymph - Diabetes Sister Social History Marital status: Spouse name: Years of education: 14 Number of children: 3 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 ibuprofen (MOTRIN) 600 mg tablet Take 1 tablet by mouth every 6 hours as needed. simvastatin (ZOCOR) 10 mg tablet Take 1 tablet by mouth once daily. Cholecalciferol, Vitamin D3, 1,000 unit cap Take 1 capsule by mouth once daily. cyclobenzaprine (FLEXERIL) 10 mg tablet Take 1 tablet by mouth twice daily as needed. No current facility-administered medications for this visit. Allergies As of Date: 10/17/2017 (No Known Allergies) Fully Assessed 09/14/2017 REVIEW OF SYSTEMS Bladder: No dysuria, gross hematuria, urinary frequency, urinary urgency, or incontinence. Expanded ROS: PAIN ASSESSMENT: Negative for pain, history of chronic pain, or current treatment for a chronic pain condition. Allergies and current medication updated:Yes EXAM: There were no vitals taken for this visit. GENERAL: pleasant, female in no apparent distress HEENT: Normocephalic, atraumatic, mucus membranes moist and no lesions CHEST: Normal inspiratory effort PELVIC: external genitalia normal, normal Bartholin's glands, urethra, Partridge's glands, physiologic discharge present, normal appearing perineal body and perianal region, cyst approximately 2mm noted on the right inner labia majora. NEURO: alert and oriented x3,exam grossly non-focal EXTREMITIES: normal ASSESSMENT AND PLAN: No diagnosis found. Labial cyst Recommended warm compresses to the area If any increase in size, pain, or any drainage follow up with the office. NOHELIA TAYLOR CNP Referring Provider: SELF [200] Allergies As of Date: 10/17/2017 (No Known Allergies) Date Reviewed: 10/17/2017 Reviewed by: Nohelia Jarrett) Brandon - Fully Assessed Reason for Visit: Vaginal Problem [117] Primary Visit Diagnosis:Labial cyst [N90.7] Prescriptions as of 10/17/2017 Sig: METOPROLOL TARTRATE 50 MG TAB* Take 1 tablet by mouth twice * IBUPROFEN 600 MG TABLET Take 1 tablet by mouth every * SIMVASTATIN 10 MG TABLET Take 1 tablet by mouth once d* CHOLECALCIFEROL (VITAMIN D3) * Take 1 capsule by mouth once * CYCLOBENZAPRINE 10 MG TABLET Take 1 tablet by mouth twice * Problem List As Of Date 10/17/2017 Noted Resolved Anxiety state [F41.1] INVALID FOR* Other acne [L70.8] INVALID FOR* Pain in joint, lower leg [M25.569] INVALID FOR* Backache, unspecified [M54.9] INVALID FOR* More... Hyperlipidemia with target LDL less than 130 [E*INVALID FOR* HTN (hypertension) [I10] INVALID FOR*04/04/2016 Marijuana use [F12.90] INVALID FOR* More... 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 Sacroiliac joint pain [M53.3] INVALID FOR* Fibromyalgia [M79.7] INVALID FOR* Encounter Status:Closed by NOHELIA TAYLOR on 10/17/17 PROGRESS Observed: 10/17/2017 Status: COMPLETED Source: P[facility]GY[facility] 4:20 PM [facility] [place] REPOSITORY HNO ID: [id number] Author: Nohelia Jarrett) Brandon Service: (none) Author Type: Nurse Practitioner Type: Progress Notes Filed: 10/17/2017 4:46 PM Note Text: Indigo Meier is a 41 year old female who presents for problem visit Vaginal bump for 1 week(s). HPI: pt states that there is cyst on the inner right labia. She has one on her eyelid and was concerned that it was the same thing on her labia. Pt denies any pain, burning, itching, or discharge. PAST MEDICAL HISTORY Diagnosis Date - Chronic back pain - GERD (gastroesophageal reflux disease) - Hemorrhoids - Hyperlipidemia 2011 - Hyperlipidemia LDL goal < 130 05/03/2012 - Hypertension - Marijuana use PAST SURGICAL HISTORY Procedure Laterality Date - LIGATE FALLOPIAN TUBE Tubal ligation - REMOVAL GALLBLADDER Cholecystectomy FAMILY HISTORY Problem Relation Age of Onset - Hypertension Mother - Hyperlipidemia Mother - None Father - Diabetes Brother - Hyperlipidemia Brother - Asthma Son - Allergies Son - Allergies Son - Cancer Sister 41 cervical, ?lymph - Diabetes Sister Social History Marital status: Spouse name: Years of education: 14 Number of children: 3 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 ibuprofen (MOTRIN) 600 mg tablet Take 1 tablet by mouth every 6 hours as needed. simvastatin (ZOCOR) 10 mg tablet Take 1 tablet by mouth once daily. Cholecalciferol, Vitamin D3, 1,000 unit cap Take 1 capsule by mouth once daily. cyclobenzaprine (FLEXERIL) 10 mg tablet Take 1 tablet by mouth twice daily as needed. No current facility-administered medications for this visit. Allergies As of Date: 10/17/2017 (No Known Allergies) Fully Assessed 09/14/2017 REVIEW OF SYSTEMS Bladder: No dysuria, gross hematuria, urinary frequency, urinary urgency, or incontinence. Expanded ROS: PAIN ASSESSMENT: Negative for pain, history of chronic pain, or current treatment for a chronic pain condition. Allergies and current medication updated:Yes EXAM: There were no vitals taken for this visit. GENERAL: pleasant, female in no apparent distress HEENT: Normocephalic, atraumatic, mucus membranes moist and no lesions CHEST: Normal inspiratory effort PELVIC: external genitalia normal, normal Bartholin's glands, urethra, Partridge's glands, physiologic discharge present, normal appearing perineal body and perianal region, cyst approximately 2mm noted on the right inner labia majora. NEURO: alert and oriented x3,exam grossly non-focal EXTREMITIES: normal ASSESSMENT AND PLAN: No diagnosis found. Labial cyst Recommended warm compresses to the area If any increase in size, pain, or any drainage follow up with the office. NOHELIA TAYLOR CNP PROGRESS Observed: 10/17/2017 Status: COMPLETED Source: PEN [facility]GYL 9:48 AM [facility] [place] REPOSITORY [facility] ID: [id number] Author: Guillermo Sheffield Service: (none) Author Type: Physician Type: Progress Notes Filed: 10/17/2017 10:01 AM Note Text: Patient presents with: Derm Problem Headache HPI: Patient presents today for office visit for follow up. DERM:1. Has a bump inside her umbilicus. Has enlarged. Looks like it is filled with blood. 2. Has a spot on her left upper lid. Has been enlarging. No pain. Is sensitive and uncomfortable. Not red or warm. MUSC: requests slade therapy for her chronic neck pain. NEURO:eeg ? Suggests focal seizures. Sees neurology next week. Discussed not driving. Never did start cymbalta because she is anxious about new meds. Advised to not take it. No changes with spells that have gone on for years. Has had a ct in the past. MEDICATIONS: Current Outpatient Prescriptions: metoprolol tartrate, short acting, (LOPRESSOR) 50 mg tablet Take 1 tablet by mouth twice daily. ibuprofen (MOTRIN) 600 mg tablet Take 1 tablet by mouth every 6 hours as needed. simvastatin (ZOCOR) 10 mg tablet Take 1 tablet by mouth once daily. Cholecalciferol, Vitamin D3, 1,000 unit cap Take 1 capsule by mouth once daily. cyclobenzaprine (FLEXERIL) 10 mg tablet Take 1 tablet by mouth twice daily as needed. No current facility-administered medications for this visit. ALLERGIES: ALLERGIES No Known Allergies PAST MEDICAL HISTORY Diagnosis Date - Chronic back pain - GERD (gastroesophageal reflux disease) - Hemorrhoids - Hyperlipidemia 2011 - Hyperlipidemia LDL goal < 130 05/03/2012 - Hypertension - Marijuana use PAST SURGICAL HISTORY Procedure Laterality Date - LIGATE FALLOPIAN TUBE Tubal ligation - REMOVAL GALLBLADDER Cholecystectomy FAMILY HISTORY Problem Relation Age of Onset - Hypertension Mother - Hyperlipidemia Mother - None Father - Diabetes Brother - Hyperlipidemia Brother - Asthma Son - Allergies Son - Allergies Son - Cancer Sister 41 cervical, ?lymph - Diabetes Sister Social History Marital status: Spouse name: Years of education: 14 Number of children: 3 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 REVIEW OF SYSTEMS All other reviewed and negative other than HPI. VITALS: BP 116/62 Pulse 68 Resp 12 Wt 73.5 kg (162 lb) BMI 29.44 kg/m2 Last 4 Encounter Wt Readings: Date: Wt: 10/17/2017 73.5 kg (162 lb) 09/14/2017 73.3 kg (161 lb 9.6 oz) 09/07/2017 73 kg (161 lb) 07/06/2017 71.2 kg (157 lb) PHYSICAL EXAMINATION: General appearance: Well appearing, alert, in no acute distress, well-hydrated, well nourished. Skin: cyst on inner canthus of left upper lid. No signs of infection. Lesion shows a benign lesion in umbilicus. Advised to watch for now. Red flags for re-assessment reviewed with patient in detail. ASSESSMENT/PLAN: 1. Neck pain - ICD9: 723.1, ICD10: M54.2 (primary diagnosis) - MASSAGE THERAPY 2. Headache, unspecified headache type - ICD9: 784.0, ICD10: R51 - MASSAGE THERAPY 3. Abnormal EEG - ICD9: 794.02, ICD10: R94.01 - see neuro 4. Lesion of eyelid - ICD9: 374.9, ICD10: H02.9 - CONSULT TO OPHTHALMOLOGY Guillermo Sheffield MD CNOV Observed: 10/17/2017 Status: COMPLETED Source: PEN ARGYL 9:20 AM [facility] REPOSITORY [facility] INDIGO MEIER ([id number]) 1975 F Date Time Provider Department 10/17/17 9:20 AM [facility]LLERMO SHEFFIELD [facility] During your visit today, we recorded the following information about you: Pulse Respiration Blood pressure Weight 68/minute 12/minute 116/62 73.5 kg Lilia Marrero Ma 10/17/2017 9:18 AM Signed DERM: Patient has a skin tag on her right eyelid that has been there for 2 years. In the last month and a half, it has been growing in size. She also has a skin tag in her belly button. HEADACHE: Patient complains of a knot on her neck that is giving her headaches. It has been there for years. She was seen by Keri Han and was given an order for a compound massage. Patient is wanting to try the massage now. Lilia Sheffield MD 10/17/2017 10:01 AM Signed Patient presents with: Derm Problem Headache HPI: Patient presents today for office visit for follow up. DERM:1. Has a bump inside her umbilicus. Has enlarged. Looks like it is filled with blood. 2. Has a spot on her left upper lid. Has been enlarging. No pain. Is sensitive and uncomfortable. Not red or warm. MUSC: requests slade therapy for her chronic neck pain. NEURO:eeg ? Suggests focal seizures. Sees neurology next week. Discussed not driving. Never did start cymbalta because she is anxious about new meds. Advised to not take it. No changes with spells that have gone on for years. Has had a ct in the past. MEDICATIONS: Current Outpatient Prescriptions: metoprolol tartrate, short acting, (LOPRESSOR) 50 mg tablet Take 1 tablet by mouth twice daily. ibuprofen (MOTRIN) 600 mg tablet Take 1 tablet by mouth every 6 hours as needed. simvastatin (ZOCOR) 10 mg tablet Take 1 tablet by mouth once daily. Cholecalciferol, Vitamin D3, 1,000 unit cap Take 1 capsule by mouth once daily. cyclobenzaprine (FLEXERIL) 10 mg tablet Take 1 tablet by mouth twice daily as needed. No current facility-administered medications for this visit. ALLERGIES: ALLERGIES No Known Allergies PAST MEDICAL HISTORY Diagnosis Date - Chronic back pain - GERD (gastroesophageal reflux disease) - Hemorrhoids - Hyperlipidemia 2011 - Hyperlipidemia LDL goal ANDlt; 130 05/03/2012 - Hypertension - Marijuana use PAST SURGICAL HISTORY Procedure Laterality Date - LIGATE FALLOPIAN TUBE Tubal ligation - REMOVAL GALLBLADDER Cholecystectomy FAMILY HISTORY Problem Relation Age of Onset - Hypertension Mother - Hyperlipidemia Mother - None Father - Diabetes Brother - Hyperlipidemia Brother - Asthma Son - Allergies Son - Allergies Son - Cancer Sister 41 cervical, ?lymph - Diabetes Sister Social History Marital status: Spouse name: Years of education: 14 Number of children: 3 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 REVIEW OF SYSTEMS All other reviewed and negative other than HPI. VITALS: BP 116/62 Pulse 68 Resp 12 Wt 73.5 kg (162 lb) BMI 29.44 kg/m2 Last 4 Encounter Wt Readings: Date: Wt: 10/17/2017 73.5 kg (162 lb) 09/14/2017 73.3 kg (161 lb 9.6 oz) 09/07/2017 73 kg (161 lb) 07/06/2017 71.2 kg (157 lb) PHYSICAL EXAMINATION: General appearance: Well appearing, alert, in no acute distress, well-hydrated, well nourished. Skin: cyst on inner canthus of left upper lid. No signs of infection. Lesion shows a benign lesion in umbilicus. Advised to watch for now. Red flags for re-assessment reviewed with patient in detail. ASSESSMENT/PLAN: 1. Neck pain - ICD9: 723.1, ICD10: M54.2 (primary diagnosis) - MASSAGE THERAPY 2. Headache, unspecified headache type - ICD9: 784.0, ICD10: R51 - MASSAGE THERAPY 3. Abnormal EEG - ICD9: 794.02, ICD10: R94.01 - see neuro 4. Lesion of eyelid - ICD9: 374.9, ICD10: H02.9 - CONSULT TO OPHTHALMOLOGY Guillermo Sheffield MD Referring Provider: SELF [200] Allergies As of Date: 10/17/2017 (No Known Allergies) Date Reviewed: 09/14/2017 Reviewed by: Indigo Mora - Fully Assessed Reason for Visit: Derm Problem [33] Headache [52] Primary Visit Diagnosis:Neck pain [M54.2] Other Visit Diagnoses:Headache, unspecified headache type [R51] Abnormal EEG [R94.01] Lesion of eyelid [H02.9] Order(s):MASSAGE THERAPY [[id number]] Order #: [id number] CONSULT TO OPHTHALMOLOGY [[id number]] Order #: [id number]: 1 Prescriptions as of 10/17/2017 Sig: METOPROLOL TARTRATE 50 MG TAB* Take 1 tablet by mouth twice * IBUPROFEN 600 MG TABLET Take 1 tablet by mouth every * SIMVASTATIN 10 MG TABLET Take 1 tablet by mouth once d* CHOLECALCIFEROL (VITAMIN D3) * Take 1 capsule by mouth once * CYCLOBENZAPRINE 10 MG TABLET Take 1 tablet by mouth twice * Problem List As Of Date 10/17/2017 Noted Resolved Anxiety state [F41.1] INVALID FOR* Other acne [L70.8] INVALID FOR* Pain in joint, lower leg [M25.569] INVALID FOR* Backache, unspecified [M54.9] INVALID FOR* More... Hyperlipidemia with target LDL less than 130 [E*INVALID FOR* HTN (hypertension) [I10] INVALID FOR*04/04/2016 Marijuana use [F12.90] INVALID FOR* More... 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 Sacroiliac joint pain [M53.3] INVALID FOR* Fibromyalgia [M79.7] INVALID FOR* Visit Notes: >> Lilia Marrero Ma SunOct 17, 2017 9:13 AM Status: Signed DERM: Patient has a skin tag on her right eyelid that has been there for 2 years. In the last month and a half, it has been growing in size. She also has a skin tag in her belly button. HEADACHE: Patient complains of a knot on her neck that is giving her headaches. It has been there for years. She was seen by Keri Han and was given an order for a compound massage. Patient is wanting to try the massage now. Lilia Marrero Ma Medications Discontinued During This Encounter DULoxetine (CYMBALTA) 30 mg capsule 30 c* 5 09/07/2017 10/17/2017 Route: ORAL Sig: Take 1 capsule by mouth once daily. Disc: Reason for discontinue is not on file. Encounter Status:Closed by GUILLERMO SHEFFIELD MD on 10/17/17 LIPID PANEL, BASIC Collected: 10/17/2017 Status: F Source: PEN ARGYL 8:23 AM [facility] REPOSITORY TYPE CODE TESTS RESULT OUT OF REFERENCE UNITS RANGE LAB CHOL <200 mg/dL Cholesterol 182 Result Comment: <200 mg/dL, Desirable 200-239 mg/dL, Borderline high >239 mg/dL, High LAB TRIGLY <150 mg/dL Triglyceride High 203 Result Comment: <150 mg/dL, Normal 150-199 mg/dL, Borderline high 200-499 mg/dL, High >499 mg/dL, Very high LAB HDL >39 mg/dL HDL-Cholesterol 46 Result Comment: 40-59 mg/dL, Acceptable >59 mg/dL, High: Negative risk factor for coronary heart disease <40 mg/dL, Low: Positive risk factor for coronary heart disease LAB LDL <100 mg/dL LDL-Cholesterol 95 Result Comment: <100 mg/dL, Optimal 100-129 mg/dL, Near optimal/above optimal 130-159 mg/dL, Borderline high 160-189 mg/dL, High >189 mg/dL, Very high Secondary prevention optimal LDL Cholesterol levels are recommended to be < 70 mg/dL LAB NONHDL <130 mg/dL Non HDL High Cholesterol 136 Result Comment: <130 mg/dL, Optimal 130-159 mg/dL, Near optimal/above optimal 160-189 mg/dL, Borderline high 190-219 mg/dL, High >219 mg/dL, Very high Secondary prevention optimal non HDL Cholesterol levels are recommended to be < 100 mg/dL LAB FT hrs Fasting Time 12 LAB VLDL <30 mg/dL High VLDL Cholesterol 41 LAB TCHDL <5.10 TC:HDL Ratio 3.96 LAB LDLHDL <2.54 LDL:HDL Ratio 2.07 Result Comment: Reference: 1. National Cholesterol Education Program ATP III Guideline At-A-Glance Quick Desk Reference: National Heart, Lung, and Blood [place]. National Institutes of Health. 2001: NIH Publication No. 01-3305. 2. An International Atherosclerosis Society position paper: global recommendations for the management of dyslipidemia: executive summary, Atherosclerosis. 2014: 232(2):410-413. Performed By: #### LIPB #### [facility] [address] [place] [address] OBSOLETE Observed: 10/09/2017 Status: COMPLETED Source: PEN ARGYL 12:00 AM [facility] REPOSITORY Refill ([facility]) INDIGO MEIER ([id number]) 1975 F Date Time Provider Department 10/09/17 GUILLERMO SHEFFIELD During your visit today, we recorded the following information about you: Essie Godwin Psr 10/09/2017 1:53 PM Signed Patient has been identified by name and date of : Yes Pending Prescriptions Disp Refills METOPROLOL TARTRATE 50 MG TABLET 60 tablet 0 Sig: Take 1 tablet by mouth twice daily. YIN: No RX INSTRUCTIONS: Patient aware RX will be sent to pharmacy. No need to notify patient. Patient asking if Dr. Sheffield would call in her Metoprolol Tartrate for a 90 day supply? Essie Landadelroy Psr Allergies As of Date: 10/09/2017 (No Known Allergies) Date Reviewed: 09/14/2017 Reviewed by: Indigo Mora - Fully Assessed Reason for Visit: Refill Request [94] Visit Diagnosis:Essential hypertension [I10] Order(s):metoprolol tartrate, short acting, (LOPRESSOR) 50 mg tabletTake 1 tablet by mouth twice daily.Disp: 60 tabletRfl: 0 Prescriptions as of 10/09/2017 Sig: METOPROLOL TARTRATE 50 MG TAB* Take 1 tablet by mouth twice * IBUPROFEN 600 MG TABLET Take 1 tablet by mouth every * SIMVASTATIN 10 MG TABLET Take 1 tablet by mouth once d* DULOXETINE 30 MG CAPSULE,MATEO* Take 1 capsule by mouth once * CHOLECALCIFEROL (VITAMIN D3) * Take 1 capsule by mouth once * CYCLOBENZAPRINE 10 MG TABLET Take 1 tablet by mouth twice * Problem List As Of Date 10/09/2017 Noted Resolved Anxiety state [F41.1] INVALID FOR* Other acne [L70.8] INVALID FOR* Pain in joint, lower leg [M25.569] INVALID FOR* Backache, unspecified [M54.9] INVALID FOR* More... Hyperlipidemia with target LDL less than 130 [E*INVALID FOR* HTN (hypertension) [I10] INVALID FOR*04/04/2016 Marijuana use [F12.90] INVALID FOR* More... 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 Sacroiliac joint pain [M53.3] INVALID FOR* Fibromyalgia [M79.7] INVALID FOR* Prescriptions ordered this encounter Disp Refills Start End METOPROLOL TARTRATE 50 MG TABLET 60 t* 0 10/09/2017 Cmt: Needs seen. Route: ORAL Sig: Take 1 tablet by mouth twice daily. Medications Discontinued During This Encounter metoprolol tartrate, short acting, (* 60 t* 0 09/07/2017 10/09/2017 Cmt: Needs seen. Route: ORAL Sig: Take 1 tablet by mouth twice daily. Disc: Reason for discontinue is not on file. Encounter Status:Closed by GUILLERMO SHEFFIELD MD on 10/09/17 RODDY Observed: 10/09/2017 Status: COMPLETED Source: PEN ARGYL 12:00 AM [facility] REPOSITORY Telephone (FAMDNA) INDIGO MEIER ([id number]) 1975 F Date Time Provider Department 10/09/17 GUILLERMO SHEFFIELD [facility] During your visit today, we recorded the following information about you: Essie Godwin Pssameera 10/09/2017 1:53 PM Signed Patient has been identified by name and date of : Yes Pending Prescriptions Disp Refills METOPROLOL TARTRATE 50 MG TABLET 60 tablet 0 Sig: Take 1 tablet by mouth twice daily. YIN: No RX INSTRUCTIONS: Patient aware RX will be sent to pharmacy. No need to notify patient. Patient asking if Dr. Sheffield would call in her Metoprolol Tartrate for a 90 day supply? Essie Godwin Psr Guillermo Sheffield MD 10/09/2017 2:21 PM Signed Addended by: GUILLERMO SHEFFIELD MD on: 10/09/2017 02:21 PM Modules accepted: Orders Allergies As of Date: 10/09/2017 (No Known Allergies) Date Reviewed: 09/14/2017 Reviewed by: Indigo Mora - Fully Assessed Reason for Visit: Refill Request [94] Visit Diagnosis:Essential hypertension [I10] Order(s):metoprolol tartrate, short acting, (LOPRESSOR) 50 mg tabletTake 1 tablet by mouth twice daily.Disp: 180 tabletRfl: 1 Prescriptions as of 10/09/2017 Sig: METOPROLOL TARTRATE 50 MG TAB* Take 1 tablet by mouth twice * IBUPROFEN 600 MG TABLET Take 1 tablet by mouth every * SIMVASTATIN 10 MG TABLET Take 1 tablet by mouth once d* DULOXETINE 30 MG CAPSULE,MATEO* Take 1 capsule by mouth once * CHOLECALCIFEROL (VITAMIN D3) * Take 1 capsule by mouth once * CYCLOBENZAPRINE 10 MG TABLET Take 1 tablet by mouth twice * Problem List As Of Date 10/09/2017 Noted Resolved Anxiety state [F41.1] INVALID FOR* Other acne [L70.8] INVALID FOR* Pain in joint, lower leg [M25.569] INVALID FOR* Backache, unspecified [M54.9] INVALID FOR* More... Hyperlipidemia with target LDL less than 130 [E*INVALID FOR* HTN (hypertension) [I10] INVALID FOR*04/04/2016 Marijuana use [F12.90] INVALID FOR* More... 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 Sacroiliac joint pain [M53.3] INVALID FOR* Fibromyalgia [M79.7] INVALID FOR* Prescriptions ordered this encounter Disp Refills Start End METOPROLOL TARTRATE 50 MG TABLET 60 t* 0 10/09/2017 10/09/2017 Cmt: Needs seen. Route: ORAL Sig: Take 1 tablet by mouth twice daily. METOPROLOL TARTRATE 50 MG TABLET 180 * 1 10/09/2017 Cmt: Sorry, please use this script Route: ORAL Sig: Take 1 tablet by mouth twice daily. Medications Discontinued During This Encounter metoprolol tartrate, short acting, (* 60 t* 0 09/07/2017 10/09/2017 Cmt: Needs seen. Route: ORAL Sig: Take 1 tablet by mouth twice daily. Disc: Reason for discontinue is not on file. metoprolol tartrate, short acting, (* 60 t* 0 10/09/2017 10/09/2017 Cmt: Needs seen. Route: ORAL Sig: Take 1 tablet by mouth twice daily. Disc: Reason for discontinue is not on file. Encounter Status:Closed by GUILLERMO SHEFFIELD MD on 10/09/17 OBSOLETE Observed: 09/26/2017 Status: COMPLETED Source: PEN ARGYL 12:00 AM [facility] REPOSITORY Refill (FAMPWS) INDIGO MEIER ([id number]) 1975 F Date Time Provider Department 09/26/17 [facility] During your visit today, we recorded the following information about you: Ana Yoo Psr 09/26/2017 2:11 PM Signed Patient has been identified by name and date of : Yes RX INSTRUCTIONS: Patient aware RX will be sent to pharmacy. No need to notify patient. Ana Yoo Psr Allergies As of Date: 09/26/2017 (No Known Allergies) Date Reviewed: 09/14/2017 Reviewed by: Indigo DejesusWilliams HospitalGarcia Mora - Fully Assessed Reason for Visit: Refill Request [94] Reason For Visit History Recorded Order(s):simvastatin (ZOCOR) 10 mg tabletTake 1 tablet by mouth once daily.Disp: 30 tabletRfl: 5 Prescriptions as of 09/26/2017 Sig: SIMVASTATIN 10 MG TABLET Take 1 tablet by mouth once d* METOPROLOL TARTRATE 50 MG TAB* Take 1 tablet by mouth twice * DULOXETINE 30 MG CAPSULE,MATEO* Take 1 capsule by mouth once * CHOLECALCIFEROL (VITAMIN D3) * Take 1 capsule by mouth once * CYCLOBENZAPRINE 10 MG TABLET Take 1 tablet by mouth twice * Problem List As Of Date 09/26/2017 Noted Resolved Anxiety state [F41.1] INVALID FOR* Other acne [L70.8] INVALID FOR* Pain in joint, lower leg [M25.569] INVALID FOR* Backache, unspecified [M54.9] INVALID FOR* More... Hyperlipidemia with target LDL less than 130 [E*INVALID FOR* HTN (hypertension) [I10] INVALID FOR*04/04/2016 Marijuana use [F12.90] INVALID FOR* More... 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 Sacroiliac joint pain [M53.3] INVALID FOR* Fibromyalgia [M79.7] INVALID FOR* Prescriptions ordered this encounter Disp Refills Start End SIMVASTATIN 10 MG TABLET 30 t* 5 09/26/2017 10/26/2017 Route: ORAL Sig: Take 1 tablet by mouth once daily. Medications Discontinued During This Encounter simvastatin (ZOCOR) 10 mg tablet 07/18/2017 09/26/2017 Class: Historical Med Route: ORAL Sig: Take 1 tablet by mouth once daily. Disc: Reason for discontinue is not on file. Encounter Status:Closed by GUILLERMO SHEFFIELD MD on 09/26/17 ALLERGIES ALLERGIES DATE TYPE / CODE NAME / CODE REACTION SEVERITY SOURCE 08/26/2018 Drug No Known Unknown [facility] Allergy/416 Allergies/E21863 [facility] 579038(SNOM 0388(RXNORM) Repository ED CT) /[id number] NO KNOWN [facility] 6(SNOMED ALLERGIES [facility]) Repository Drug NO KNOWN [facility] Class/53397 ALLERGIES Other [place] 1003(SNOMED Repository CT) ENCOUNTERS ENCOUNTERS ADMIT/DISCHARGE ACCOUNT NUMBER ADMITTING ENCOUNTER LOCATION SOURCE CLASS 08/26/2018/08/26/20 [id number] Emergency [address] ding:ED Repository 08/02/2018/08/02/20 [id number] Ambulatory [address] Repository 07/26/2018/07/29/20 [id number] Ambulatory [address] Repository 07/12/2018/07/15/20 [id number] Ambulatory [address] Repository 04/23/2018/04/24/20 [id number] Ambulatory [address] Repository 04/22/2018/04/22/20 [id number] Ambulatory [address] Repository 02/01/2018/02/02/20 [id number] Ambulatory [address] Repository 02/01/2018/02/05/20 [id number] Ambulatory [address] Repository 01/29/2018/02/01/20 [id number] Ambulatory [address] Repository 01/13/2018/01/14/20 [id number] Emergency [place] [address] ding:ED Repository 12/13/2017 [id number] [facility] Repository 11/22/2017/11/23/19 [id number] [facility], Inpatient [address] Repository 11/22/2017/11/23/19 [id number] [facility], Inpatient [address] MEDICAL Repository [facility] ng:EMURoom: [id number]: 11/21/2017/11/22/19 [id number] Ambulatory [address] Repository 11/05/2017/11/05/19 [id number] Emergency [place] [address] ding:ED Repository 10/24/2017/10/24/19 [id number] Ambulatory [address] Repository 10/17/2017/10/18/19 [id number] Ambulatory [address] Repository 10/17/2017/10/17/19 [id number] Ambulatory [address] Repository 10/17/2017/10/17/19 [id number] Ambulatory [address] Repository 09/18/2017 [id number] Ambulatory [facility] Repository PAYERS PAYERS ENCOUNTER GUARANTOR PAYER SUBSCRIBER SOURCE 08/26/2018 INDIGO [id number] Primary INDIGO HUMPHRIES: [place] Insurance[id number] Number: Hospital [id number]: [phone] [id number] Repository [phone] (HP) Date:2018-08-26[address]ATTN: [place] [address]LS: 08/26/2018 Secondary NOT GIVENUNK [place] Insurance:SELF PAY [facility] Number: Effective Repository Date:2018-08-26 01/13/2018 Indigo S [id number] Primary Indigo S LeesonDOB: [place] [facility] [id number] Number: Hospital [id number]: [id number] Repository [phone] (HP) Date:2018-01-13[address]ATTN: [place] [address]PP: 01/13/2018 Secondary NOT GIVENUNK [place] Insurance:SELF PAY [facility] Number: Effective Repository Date:2018-01-13 12/13/2017 Indigo S LeesonDOB: Primary Indigo S LeesonDOB: [id number] Number: Repository [place], [place] Effective Date: [address]Hrn: () 11/22/2017 INDIGO S LEESONDOB: Primary INDIGO S LEESONDOB: [place] [place] [facility] [id number] [place] [facility] Repository [place], [place] Number: [id number]: [phone] [id number] [phone] (HP) Date: 11/05/2017 Indigo S [id number] Primary Indigo S LeesonDOB: [place] [facility] Insurance[facility] [id number] Number: Hospital [id number]: [phone] [id number] Repository [phone] (HP) Date:2017-11-05[address]ATTN: [place] [address]QY: 11/05/2017 Secondary NOT GIVENUNK [place] Insurance:SELF PAY [facility] Number: Effective Repository Date:2017-11-05
== END 2018-08-26 18:50 | disposition home or self-care (01) ==
LOC: ED 18:15
PROVIDERS: Emergency Provider Emergency Medicine; Family Provider Family Medicine; PCP Family Medicine
DX: S80.01XA Contusion of right knee, initial encounter (principal); V43.52XA Car driver injured in collision with other type car in traffic accident, initial encounter; Y93.89 Activity, other specified; Y92.410 Unspecified street and highway as the place of occurrence of the external cause; I10 Essential (primary) hypertension
CPT/HCPCS: 73564; 99284

== ENCOUNTER 2019-01-21 13:57 | Emergency (ER) | payer MEDICAID, SELFPAY ==
[2019-01-21 14:00] VITALS: BP 132/90; PULSE 70; RESP 16; TEMP 36.6; O2SAT 99; BMI 28.4
[2019-01-21 16:11] VITALS: BP 123/95; PULSE 85; RESP 18; O2SAT 98
--- NOTE | 2019-01-21 16:12 | ED.DCSUM_ITS ---
History of Present Illness Chief Complaint: Head Injury Informant: Patient Onset: Today Context: Sudden Onset Timing: Continuous Quality: Headache status post blunt trauma Location: Global Current Severity: Mild Maximum Severity: Mild Worsened by: Activity Relieved by: Nothing Associated Symptoms: Headache, blurred vision, nausea and not self Narrative: Patient is a 43-year-old woman who presents with headache after blunt trauma. This occurred 2 hours prior to presentation. She had no loss of conscious. She was dazed. She does report headache, nausea, blurred vision and dizziness. Her definition of dizziness is she feels unsteady. She denies trouble with speech or swallowing. She denies paresthesia, anesthesia motor weakness upper or lower extremity presently time of the impact. She denies neck pain. She denies cardiac respiratory symptoms. She is on no anticoagulant. Prior similar symptoms: Yes - Many years ago Recent Illness/Hospitalization: No - Past Medical History (1) Panic attacks Status: Acute (2) Hypertension Status: Chronic Past Medical History - Allergies and Home Meds Allergies/Adverse Reactions: Allergies No Known Allergies Allergy (Verified 01/21/19 13:59) Primary Care Physician: Guillermo Sheffield MD [Primary Care Provider] - Prior records reviewed: Yes Surgical History: cholecystectomy, - - tubal ligation Lives: Spouse/ Significant Other Smoking Status: Never smoker Alcohol: Rare Drugs: None Review of Systems General: Denies: Chills, Fever, Malaise, Subjective, Sweats, Weight loss - Right Eyes: Reports: Visual changes - bilaterally. Denies: Blurred Vision - bilaterally, Diplopia Cardiovascular: Reports: Chest pain, Palpitations Gastrointestinal: Reports: Nausea - sore throat. Denies: Abdominal pain, Vomiting, Diarrhea, Constipation, Melena, Hematochezia, -, - Musculoskeletal: Denies: Myalgias, Arthralgias, Neck pain, Back pain, Swelling, Extremity Pain, -, - - Is Skin: Denies: Rash - Is is is is, Abscess, Abrasions, Wounds, -, - Neurological: Reports: Headache Psych: Reports: Anxiety Hematologic: Denies: Easy bruising, Easy bleeding, Lymphadenopathy, -, - Allergy: Denies: Uticaria Physical Exam Vital Signs/Narrative: Vital Signs Temp Pulse Resp BP Pulse Ox 01/21/19 14:00 97.8 F 70 16 132/90 H 99 Inital Vital Signs reviewed: Yes General: Well nourished, Well developed, No Acute Distress, - - Patient sitting on examination cannot talking to friend and smiling. Head: Normocephalic, Atraumatic Eyes: Perrl, EOMI. Negative for: Pale conjunctiva, Scleral icterus, - ENT: Moist mucous membranes, No rhinorrhea, TM's clear, - - There is no evidence of head trauma. Cardiovascular: Regular rate, Regular rhythm, No murmurs, Normal S1, Normal S2 Respiratory: No distress, CTA bilaterally, Chest nontender Back: Nontender, Normal Inspection Extremities: Nontender, No edema Skin: Normal color, No rash, No Trauma Neurological: Alert, Oriented x3, Cranial nerves II-XII grossly intact, Normal Strength, Normal Sensation, Normal DTR, Normal Gait, - Psychological: Normal affect, Normal Mood Diagnostic/Tx/Re-eval None were obtained nor were any indicated. - Medical Decision Making Patient with history and physical exam consistent with concussion. Since neurologic exam is normal imaging was not obtained. This was based on the [place] CT head rule and [place] role. Patient was informed that 90-95% of patients have resolution of symptoms within 4-6 weeks. She was instructed to avoid activity that causes her symptoms to worsen. ED Disposition - Plan for ED Patient: Disposition: Home or Assisted Living Diagnosis: Concussion without loss of consciousness, initial encounter Instructions: ED Concussion Referrals: Guillermo Sheffield MD [Primary Care Provider] - As Needed
[2019-01-21 16:17] VITALS: BP 113/67; PULSE 52; RESP 16; O2SAT 98
== END 2019-01-21 16:17 | disposition home or self-care (01) ==
PROVIDERS: Emergency Provider Emergency Medicine; Family Provider Family Medicine; PCP Family Medicine
DX: S06.0X0A Concussion without loss of consciousness, initial encounter (principal); X58.XXXA Exposure to other specified factors, initial encounter; Y93.9 Activity, unspecified; Y92.9 Unspecified place or not applicable; I10 Essential (primary) hypertension
CPT/HCPCS: 99282

== ENCOUNTER 2019-03-03 09:40 | Emergency (ER) | payer MEDICAID, SELFPAY ==
[2019-03-03 09:41] VITALS: BP 142/94; PULSE 90; RESP 16; TEMP 36.7; O2SAT 97; BMI 28.3
[2019-03-03] MEDS: 0.9% Normal Saline 1,000 ML 1000 ML IV (10:29)
[2019-03-03] MEDS: proMETHazine 25 MG/ML Syringe 12.5 MG IV (10:29)
[2019-03-03] MEDS: Dicyclomine 20 MG/2 ML Vial IM (10:30)
[2019-03-03 10:32] LABS: Mucous, Urine 0 SEEN /hpf (<or=2+)
[2019-03-03 10:42] LABS: Color, Urine Yellow (Yellow); Glucose, Dipstick Normal (Normal); Ketone-Dipstick 15 mg/dl (Negative); Leukocyte Esterase-Dipstick 25 /ul (Negative); Nitrite-Dipstick Negative (Negative); Occult Blood-Urine 25 /ul (Negative); Protein-Dipstick 100 mg/dl (Negative); Specific Gravity, Urine 1.025 (1.002-1.030); Urine Bilirubin Dipstick Negative (Negative); Urine Clarity Sl. Cloudy (Clear); Urine Urobilinogen Normal (Normal)
[2019-03-03 10:43] LABS: Absolute Lymphocyte Count 0.43 X10^3/ul (0.83-4.51); Absolute Neutrophil Count 11.4 X10^3/uL (2.0-7.7); Basophil# 0.01 X10^3/uL; Basophil% 0.1 % (0-1); Eosinophil# 0.01 X10^3/uL; Eosinophils% 0.1 % (0-5); Hematocrit 42.7 % (37-47); Hemoglobin 14.3 g/dl (12.0-15.0); Lymphocyte # 0.43 X10^3/ul (4.0); Lymphocyte % 3.5 % (19-41); Mean Corp Hgb Conc 33.5 g/gl (32-36); Mean Corpuscular Hgb 29.5 pg (27.0-32.0); Mean Corpuscular Volume 88.2 fL (81-99); Mean Platelet Vol. 10.3 fl (6.2-12.0); Monocyte# 0.43 X10^3/uL; Monocyte% 3.5 % (0-10); Neutrophil # 11.35 X10^3/uL (2.7-7.7); Neutrophil % 92.6 % (47-70); Platelet Count 215 K/mm3 (150-450); RBC Distribution Width CV 13.8 % (11.6-14.6); RBC Distribution Width SD 44.7 fl (35.1-43.9); Red Blood Count 4.84 M/mm3 (4.2-5.4); White Blood Count 12.3 K/mm3 (4.4-11.0)
[2019-03-03 10:45] LABS: Differential Indicated SCAN CRITERIA MET; Internal QC Validated? YES +Cl - CLEAR BKGD; POSITIVE COUNT NO; POSITIVE DIFFERENTIAL YES; POSITIVE MORPHOLOGY NO; Pregnancy, Serum, hCG Quali. NEGATIVE Negative
[2019-03-03 10:49] LABS: Anion Gap 12 (5-15); BUN 19 mg/dL (7-18); BUN/Creat Ratio 26.4 RATIO (10-20); Calcium,Total 8.7 mg/dL (8.5-10.1); Chloride 103 mmol/L (98-107); Creatinine, Serum 0.72 mg/dL (0.55-1.02); EST Glomerular Filtration Rate 95 mL/min (>60); Est Glom Filt Rate - Afr Amer 115 mL/min (>60); Estimated Creatinine Clearance 85.06 ml/min; Glucose 149 mg/dL (74-106); Potassium 3.9 mmol/L (3.5-5.1); Sodium Level 141 mmol/L (136-145)
[2019-03-03 10:50] LABS: Red Blood Cells-Urine 0-5 SEEN /hpf (0-5); White Blood Cells 0-5 SEEN /hpf (0-5)
[2019-03-03 10:51] LABS: Bacteria 4+ /hpf (None Seen); Squamous Epithelial Cells - UA 50-100 SEEN /hpf (5-10)
--- NOTE | 2019-03-03 12:04 | ED.VISSUMM ---
- ER Visit Summary Date of Service: 03/03/19 Chief Complaint: [Nausea, vomiting, diarrhea] History of Present Illness: The patient is a 43 F [Zentz to the emergency department with symptoms that started around 3 AM. Patient's had vomiting and diarrhea acute 10 minutes. She is complaining of watery stool. She denies any blood in her stool. Denies any fever but she is had some chills. She describes some diffuse abdominal cramping but no significant pain. Patient denies urinary symptoms. She does not believe that she is as she had a period last week. Patient has a history of hypertension and high cholesterol. Past surgical history includes cholecystectomy. Denies any sick contacts. She denies recent antibiotic usage.] Physical Examination: [HEENT-PERRLA, EOMI. Cranial nerves II through XII grossly intact. TMs clear. Mucous membranes moist. No adenopathy. Cardiovascular-regular rate and rhythm without murmur or ectopy Lungs-clear to auscultation, chest wall stable without crepitus or subcu emphysema Abdomen-normoactive bowel sounds, soft, nontender, no rebound or rigidity, no peritoneal signs. Extremities-intact ?4, normal range of motion, normal pulses, atraumatic] Test Results: [CBC with differential of a slightly elevated white count of 12.3, hemoglobin 14, hematocrit 43, placed 215. Chemistries unremarkable. Urinalysis unremarkable.] Emergency Department Course and Treatment: [She was given a liter normal same fluid bolus and was medicated with Phenergan 12.5 mg IV patient continued to complain of nausea and was given Reglan 10 mg IV patient also given Imodium 4 mg p.o.] Treatment Plan: [Patient will be discharged home once symptoms have improved. Patient will be given a prescription for Zofran as well as Bentyl.] Disposition: [Discharged home in stable condition] Impression: [Viral gastroenteritis] This note was generated with [employer] dictation software. It may contain incorrect words, spelling, and punctuation that were not noted in review of the chart prior to signing ED Disposition - Plan for ED Patient: Referrals: Guillermo Sheffield MD [Primary Care Provider] -
--- NOTE | 2019-03-03 12:07 | ED.DEP ---
ED Disposition - Plan for ED Patient: Instructions: ED Gastroenteritis Viral Prescriptions: Ondansetron [Zofran Odt] 4 mg PO Q8H PRN PRN #10 tab PRN Reason: Nausea Dicyclomine HCl [Bentyl] 20 mg PO TIDAC #20 cap Referrals: Guillermo Sheffield MD [Primary Care Provider] - 3-5 Days
[2019-03-03] MEDS: Loperamide 2 MG Capsule 4 MG PO (12:17)
[2019-03-03] MEDS: Metoclopramide 10 MG/2 ML Vial IV (12:17)
[2019-03-03 12:40] VITALS: BP 103/91; PULSE 82; RESP 12; O2SAT 96
== END 2019-03-03 12:45 | disposition home or self-care (01) ==
LOC: ED 10:35
PROVIDERS: Emergency Provider Emergency Medicine; Family Provider Family Medicine; PCP Family Medicine
DX: A08.4 Viral intestinal infection, unspecified (principal); I10 Essential (primary) hypertension; E78.00 Pure hypercholesterolemia, unspecified; F12.90 Cannabis use, unspecified, uncomplicated; Z79.899 Other long term (current) drug therapy
CPT/HCPCS: 80048; 81001; 84703; 85025; 96361; 96372; 96374; 96375; 99283; J7030; A4216

== ENCOUNTER 2019-08-20 22:24 | Emergency (ER) | payer MEDICAID, SELFPAY ==
[2019-08-20 22:25] VITALS: BP 128/90; PULSE 67; RESP 18; TEMP 36.7; O2SAT 100; BMI 27.6
[2019-08-20 22:30] VITALS: O2SAT 100
[2019-08-20] MEDS: Morphine 4 MG/ML Syringe IM (23:14)
--- NOTE | 2019-08-20 23:16 | RAD_ITS ---
STUDY: X-RAY - PELVIS AND LEFT HIP REASON FOR EXAM: Female, 43 years old. Fall TECHNIQUE: History views of the pelvis and hip. COMPARISON: None. FINDINGS: There is a non-specific bowel gas pattern. Normal visualized soft tissue structures. Normal bilateral iliac wings, sacroiliac joints and visualized sacrum. Normal bilateral superior and inferior pubic rami. Normal pubic symphysis. Normal bilateral ischial tuberosities. Normal visualized femoral head. Normal acetabulum. Normal hip joint. RAD/HIP, UNI W/ Pelvis 2-3 Views IMPRESSION: Normal x-ray examination of the pelvis and hip. Electronically Signed: Vasu Lugo DO at 23:29 EST Tel [phone], Service support ,
--- NOTE | 2019-08-20 23:46 | ED.DCSUM_ITS ---
History of Present Illness Chief Complaint: Fall Informant: Patient Onset: Today Mechanism/Context: Fall, Trip Quality of Pain: Sharp, Aching Associated Symptoms: Inability to ambulate. Negative for: Parasthesias, Weaknes s, Loss of function Narrative: Patient is a 43-year-old female with no significant past medical history presenting with left hip pain. Patient states she slipped on the bottom 2 steps at her house and her feet went out from under her. She landed on her left hip. She also hit her left elbow. Patient was unable to get up because of the pain. She states she did pass out for a couple seconds because the pain was so severe at one point. She notes she does have history of nonepileptic seizures but this felt different than that. Patient denies any numbness or tingling. She denies any incontinence. She denies any other complaints or concerns at this time. Past Medical History - Allergies and Home Meds Allergies/Adverse Reactions: Allergies No Known Allergies Allergy (Verified 08/20/19 22:25) Primary Care Physician: Guillermo Sheffiedl MD [Primary Care Provider] - Past Medical History: - - Nonepileptic seizures, hypertension, hyperlipidemia Surgical History: cholecystectomy, - - tubal ligation Smoking Status: Never smoker Review of Systems General: Denies: Chills, Fever, Sweats Eyes: Denies: Visual changes - bilaterally, Diplopia ENT: Denies: Rhinorrhea, Sore throat Cardiovascular: Denies: Chest pain, Palpitations Respiratory: Denies: Dyspnea, Cough, Dyspnea on exertion Gastrointestinal: Denies: Abdominal pain, Nausea, Vomiting, Diarrhea Genitourinary: Denies: Dysuria, Hematuria, Frequency Musculoskeletal: Reports: Arthralgias - Left hip pain. Denies: Back pain, Swelling Skin: Reports: Abrasions - Left elbow. Denies: Rash, Wounds Neurological: Denies: Headache, Weakness, Numbness Physical Exam Vital Signs/Narrative: Vital Signs Temp Pulse Resp BP Pulse Ox 08/20/19 22:30 100 08/20/19 22:25 98.0 F 67 18 128/90 H 100 Inital Vital Signs reviewed: Yes General: Well nourished, Well developed, - - Patient laying on her stomach during my initial evaluation Head: Normocephalic, Atraumatic Eyes: Perrl, EOMI ENT: No hemotympanum or drainage, No trauma. Negative for: Otorrhea, Nasal septal hematoma Neck: Nontender, Full ROM. Negative for: Spinal Tenderness, Paraspinal Tenderness Cardiovascular: Regular rate, Regular rhythm, No murmurs Respiratory: No distress, CTA bilaterally, Chest nontender Abdomen: Soft, Nontender, Nondistended, Normal bowel sounds Back: Nontender Extremeties: Equal length bilaterally, equal strength and sensation in all dermatomes. Normal range of motion however patient does have tenderness palpation of the greater trochanter on the left. No obvious deformity. Normal logroll and straight leg test bilaterally. Left upper extremity?normal range of motion, very small 1 mm abrasion over the left elbow but no associated tenderness to palpation Skin: Normal color, No rash Neurological: Alert, Oriented x3, Cranial nerves II-XII grossly intact, Normal Strength, Normal Sensation Psychological: Normal affect - Glascow Coma Scale Eye Opening: Spontaneous Motor: Obeys Commands Verbal: Oriented Coma Scale Total: 15 Diagnostic/Tx/Re-eval Diagnostic Data Hip/Pelvis X-Ray 08/20/19 23:16 IMPRESSION: Normal x-ray examination of the pelvis and hip. Electronically Signed: Vasu Lugo DO at 23:29 EST Tel [phone], Service support , - Medical Decision Making She was evaluated for mechanical fall. She landed on her left hip. She is having a lot of pain in her left hip and was unable to walk because of the pain. She is given a dose of IM morphine in the ER and an x-ray is obtained. It does not show an acute fracture. Patient is normal neurologic exams. She is not have any other significant injuries. She has no obvious deformities. Patient is then given a dose of Motrin for her pain. She is counseled that likely this is a contusion secondary to her fall. Patient did not hit her head and has no neck pain. She does not require head and neck imaging per [facility] and [place] C-spine. Patient is counseled on signs and symptoms requiring return to the emergency room. Patient verbalizes agreement and understand this plan. Patient discharged home in stable and improved condition. ED Disposition - Plan for ED Patient: Disposition: Home or Assisted Living Diagnosis: Fall, Contusion of right hip Instructions: FALL, Mechanical, Hip Contusion Prescriptions: Ibuprofen [Motrin] 600 mg PO Q6H PRN PRN #20 tab PRN Reason: Pain/Inflammation Prescription Printed Referrals: Guillermo Sheffield MD [Primary Care Provider] -
[2019-08-20] MEDS: Ondansetron ODT 4 MG Tablet PO (23:58)
[2019-08-20] MEDS: Ibuprofen 600 MG Tablet PO (23:58)
--- NOTE | 2019-08-21 01:02 | ED.RN ---
RN INTO ROOM TO D/C PATIENT. PATIENT LEFT WITHOUT RECEIVING PAPERWORK. NO IV WAS INSERTED.
== END 2019-08-21 01:03 | disposition home or self-care (01) ==
PROVIDERS: Emergency Provider Emergency Medicine; Family Provider Family Medicine; PCP Family Medicine
DX: S70.01XA Contusion of right hip, initial encounter (principal); W01.0XXA Fall on same level from slipping, tripping and stumbling without subsequent striking against object, initial encounter; Y93.9 Activity, unspecified; Y92.009 Unspecified place in unspecified non-institutional (private) residence as the place of occurrence of the external cause; I10 Essential (primary) hypertension; E78.5 Hyperlipidemia, unspecified; Z79.899 Other long term (current) drug therapy
CPT/HCPCS: 73502; 96372; 99283; A4216

== ENCOUNTER 2020-01-15 17:51 | Emergency (ER) | payer MEDICAID, SELFPAY ==
[2020-01-15 17:52] VITALS: BP 143/99; PULSE 75; RESP 17; TEMP 36.7; O2SAT 99; BMI 28.3
--- NOTE | 2020-01-15 18:09 | ED.VIS.LOWEX ---
History of Present Illness Chief Complaint: Lower Extremity Injury Informant: Patient Occurred: Today Mechanism/Context: Injury - States she stepped off of her bed and accidentally inverted her foot/ankle, injuring at the lateral malleolus of the left ankle. Context: Sudden Onset Timing: Continuous Quality of Pain: Aching Location: lateral left ankle Current Severity: Severe Maximum Severity: Severe Worsened by: movement, palpation, trying to WB LLE Relieved by: nothing Associated Symptoms: Negative for: Parasthesia, Weakness, Loss of Funtion Narrative: Denies any fall or injury anywhere else. No numbness. Patient is crying hysterically asking for something for pain. - Past Medical History (1) Panic attacks Status: Chronic (2) Anxiety Status: Chronic (3) Hypertension Status: Chronic Past Medical History - Allergies and Home Meds Allergies/Adverse Reactions: Allergies No Known Allergies Allergy (Verified 01/15/20 17:51) Primary Care Physician: Guillermo Sheffield MD [Primary Care Provider] - Surgical History: cholecystectomy, - - tubal ligation Smoking Status: Never smoker Review of Systems ROS: Unable to Obtain - except as below, due to crying hysterically Cardiovascular: Denies: Chest pain Respiratory: Denies: Dyspnea Gastrointestinal: Reports: Nausea, Vomiting. Denies: Abdominal pain, Diarrhea Musculoskeletal: Reports: Extremity Pain Skin: Denies: Rash, Wounds Neurological: Denies: Headache, Weakness, Numbness Psych: Reports: Anxiety Physical Exam Vital Signs/Narrative: Vital Signs Temp Pulse Resp BP Pulse Ox 01/15/20 17:52 98.1 F 75 17 143/99 H 99 Inital Vital Signs reviewed: Yes - Extremity Exam Left Ankle: Limited ROM - Due to pain but able to dorsiflex/plantarflex., - - Swelling and tenderness about the left lateral malleolus. Nontender at the medial malleolus, base of the fifth metatarsal, fibular head, and the rest of the fibula. No deformities. No tenderness in the midfoot or the rest of the foot. General: Well nourished, Well developed, Obese, - - Acute painful distress Back: - - FROM Skin: Normal color, No rash, - - Skin intact left lower extremity Neurological: Alert, Oriented x3, Cranial nerves II-XII grossly intact, Normal Strength, Normal Sensation Psychological: Tearful Diagnostic/Tx/Re-eval Clinical Impression(s) from Imaging Studies Ankle X-Ray 01/15/20 18:20 IMPRESSION: Anterior lateral soft tissue injury without underlying fracture or dislocation. Plantar spur of the calcaneus. Electronically Signed: Rosa Zuniga MD at 18:47 EDT , Service support , - Medical Decision Making X-rays are unremarkable. Consistent with a sprain. Patient remarks that the [place] that we immediately gave her did not do anything. She was advised that she has a sprain, I cannot take the pain away which is what she was requesting, happy to give her something additional for pain at a short prescription for analgesics. Her oars report is very benign, she has 1 prescription in the past 2 years and it was over a year ago from a dentist. ED Disposition - Plan for ED Patient: Disposition: Home or Assisted Living Diagnosis: Left ankle sprain Instructions: ED Sprain Ankle W X Ray Prescriptions: Oxycodone HCl/Acetaminophen [Percocet 5/325] 1 tablet PO Q4H PRN PRN 2 Days #10 tablet PRN Reason: Pain Transmission Status: Sent to [facility] Referrals: Guillermo Sheffield MD [Primary Care Provider] - 10-14 Days if not better
[2020-01-15] MEDS: Ondansetron ODT 4 MG Tablet 8 MG PO (18:16)
[2020-01-15] MEDS: HYDROcodone Bitartrate/Apap 5/325 Tablet PO (18:17)
--- NOTE | 2020-01-15 18:20 | RAD_ITS ---
STUDY: X-RAY - LEFT ANKLE REASON FOR EXAM: Female, 44 years old. PAIN LATERALLY WITH SWELLING AND BRUISING S/P TWISTING INJURY TODAY TECHNIQUE: 3 view(s) of the ankle. COMPARISON: None. FINDINGS: Normal visualized distal tibia and fibula. Normal medial and lateral malleoli. Normal tibiotalar articulation and ankle mortise. Normal visualized talus and calcaneus. Plantar spur of the calcaneus. The visualized subtalar, talonavicular, calcaneocuboid and tarsal articulations are normal. Anterior and lateral soft tissue swelling. RAD/Ankle min 3 Views IMPRESSION: Anterior lateral soft tissue injury without underlying fracture or dislocation. Plantar spur of the calcaneus. Electronically Signed: Rosa Zuniga MD at 18:47 EDT , Service support ,
[2020-01-15] MEDS: oxyCODONE 5 MG Tablet PO (19:23)
[2020-01-15 19:25] VITALS: BP 140/78; PULSE 78; RESP 16; O2SAT 98
== END 2020-01-15 19:27 | disposition home or self-care (01) ==
PROVIDERS: Emergency Provider Emergency Medicine; PCP Family Medicine
DX: S93.402A Sprain of unspecified ligament of left ankle, initial encounter (principal); X50.1XXA Overexertion from prolonged static or awkward postures, initial encounter; I10 Essential (primary) hypertension
CPT/HCPCS: 73610; 99285

== ENCOUNTER 2020-05-15 12:50 | Emergency (ER) | payer MEDICAID, SELFPAY ==
[2020-05-15 12:52] VITALS: BP 150/109; PULSE 66; RESP 16; TEMP 36.3; O2SAT 98; BMI 29.0
--- NOTE | 2020-05-15 13:17 | ED.DCSUM_ITS ---
- ER Visit Summary Date of Service: 05/15/20 Chief Complaint: Eye problems History of Present Illness: The patient is a 44 F who was referred to the ED for change in her vision. Over the past month, she has had blurriness in her left eye on and off. It last for minutes and seems to improve after she rubs her eye. Today she is reporting a wavy line to her left lateral visual field. Seems to only affect her left eye. Denies any curtains or black quadrants. She has a left side headache and has a history of headaches, but has not had visual changes with migraines. Denies contact lens use. Denies any trauma, but she does use tanning beds without the protective goggles. No systemic symptoms or other complaints. Physical Examination: Visual acuity documented per nursing. Her vitals were unremarkable. External exam appeared normal. Pupils normal, reactive. No pain with constriction. No consensual pain. Funduscopic exam was limited, but appeared unremarkable. No fluorescein uptake. No foreign bodies. No erythema or injection. No abnormal findings. Test Results: None performed Emergency Department Course and Treatment: Patient had some blurry vision that lasted momentarily and improved with rubbing her eyes over the past month. This sounds like dry eye. She has a history of dry eye. Today, she has a headache with a wavy line in her left visual field. I was concerned that her vision jonelle nges might be migraine related. Patient has to work today and declined migraine meds here. I was also concerned for a retinal pathology. I do not appreciate anything here, but will refer her for outpatient follow-up with ophthalmology. She was advised to return right away if she has any new or worsening issues and do not wait for outpatient evaluation. Treatment Plan: As above Disposition: Discharge Impression: Left eye visual changes This note was generated with [employer] dictation software. It may contain incorrect words, spelling, and punctuation that were not noted in review of the chart prior to signing ED Disposition - Plan for ED Patient: Referrals: Guillermo Sheffield MD [Primary Care Provider] -
--- NOTE | 2020-05-15 13:22 | ED.DEP ---
ED Disposition - Plan for ED Patient: Instructions: Understanding Vision Problems Referrals: Papa Fenton MD [STAFF PHYSICIAN] -
[2020-05-15] MEDS: Tetracaine 0.5% Ophthalmic Bottle 1 DRP LEFT EYE (13:29)
[2020-05-15] MEDS: Fluorescein 1 MG STRIP 1 STRIP LEFT EYE (13:29)
== END 2020-05-15 13:33 | disposition home or self-care (01) ==
LOC: ED 13:10
PROVIDERS: Emergency Provider Emergency Medicine; PCP Family Medicine
DX: H53.8 Other visual disturbances (principal); I10 Essential (primary) hypertension
CPT/HCPCS: 99283

== ENCOUNTER → 2020-11-03 10:31 | Outpatient (CLI) | payer MEDICAID, SELFPAY | PROVIDERS: PCP Physician Assistant; Referring Provider Physician Assistant; Visit Provider Physician Assistant | DX: R00.2 Palpitations (principal) | CPT/HCPCS: 93225; 93226 ==

== ENCOUNTER 2020-11-18 19:11 | Emergency (ER) | payer MEDICAID, SELFPAY ==
[2020-11-18 19:12] VITALS: BP 156/124; PULSE 68; RESP 16; TEMP 36.5; O2SAT 97; BMI 30.1
--- NOTE | 2020-11-18 19:53 | EKG12_ITS ---
Test Reason : CP Blood Pressure : / mmHG Vent. Rate : 063 BPM Atrial Rate : 063 BPM P-R Int : 184 ms QRS Dur : 082 ms QT Int : 412 ms P-R-T Axes : 012 004 026 degrees QTc Int : 421 ms Normal sinus rhythm Moderate voltage criteria for LVH, may be normal variant Borderline ECG Confirmed by SHERRIE EUBANKS, CHAN ([id number]), editor newspaper CRAIG VOGT ([id number]) on 11/22/2020 10:55:33 AM Referred By: NEIL Confirmed By:CHAN BALDERAS MD
--- NOTE | 2020-11-18 20:13 | ED.VIS.GEN ---
History of Present Illness Chief Complaint: Chest Pain Detail of Chief Complaint: Palpitations Informant: Patient Onset: Hours Context: Sudden Onset Timing: Continuous Quality: Palpitations Location: Central chest Current Severity: Mild Maximum Severity: Moderate Worsened by: Nothing Relieved by: Nothing Associated Symptoms: Lasted longer than normal Narrative: Patient is a 45-year-old woman who presents with palpitations. The reason she presents because it lasted for greater than 2 hours. She does complain of tingling perioral with the palpitations. She states she only has 2 caffeinated beverages a day. She is on no [id number] medication. She denies upper respiratory symptoms. Denies fever chills. She denies weight gain or weight loss. She denies symptoms of hyperthyroidism. She denies nausea, vomiting diarrhea. She denies urologic symptoms. She denies problems with balance or motor weakness. She felt her upper extremities were Jell-O when she had perioral numbness. She has seen physician entry level assistant manager Maikol Cook and had a Holter monitor per. She does not know the results. She states she has had no blood test. Prior similar symptoms: Yes Recent Illness/Hospitalization: Yes - Past Medical History (1) Anxiety Status: Chronic (2) Hypertension Status: Chronic (3) Panic attacks Status: Chronic (4) History of hypercholesterolemia Status: Acute Past Medical History - Allergies and Home Meds Allergies/Adverse Reactions: Allergies No Known Allergies Allergy (Verified 05/15/20 12:55) Primary Care Physician: Jaguar Cook PA [Primary Care Provider] - Prior records reviewed: Yes Surgical History: cholecystectomy, - - tubal ligation Lives: Alone Smoking Status: Never smoker Alcohol: None Drugs: Marijuana Review of Systems General: Denies: Chills, Fever, Malaise, Subjective, Sweats Eyes: Denies: Visual changes - bilaterally, Blurred Vision - bilaterally ENT: Denies: Bilateral ear pain, Rhinorrhea, Sore throat Cardiovascular: Reports: Palpitations. Denies: Chest pain, Heart racing, -, - Respiratory: Reports: Dyspnea. Denies: Cough, Sputum, Dyspnea on exertion, Orthopnea, Paroxysmal nocturnal dyspnea, -, - Gastrointestinal: Denies: Abdominal pain, Nausea, Vomiting, Diarrhea, Melena, Hematochezia Musculoskeletal: Denies: Myalgias, Arthralgias, Neck pain, Back pain, Swelling, Extremity Pain, -, - Neurological: Reports: Parasthesia - Oral. Denies: Headache, Weakness Endocrine: Denies: Polyuria, Polydipsia Hematologic: Denies: Easy bruising, Easy bleeding Physical Exam Vital Signs/Narrative: Vital Signs Temp Pulse Resp BP Pulse Ox 11/18/20 19:12 97.7 F L 68 16 156/124 H 97 Inital Vital Signs reviewed: Yes General: Well nourished, Well developed, No Acute Distress Head: Normocephalic, Atraumatic Eyes: Perrl, EOMI ENT: Moist mucous membranes, No rhinorrhea Neck: Supple, Nontender Cardiovascular: Regular rate, Regular rhythm, No murmurs, Normal S1, Normal S2 Respiratory: No distress, CTA bilaterally, Chest nontender Abdomen: Soft, Nontender, Nondistended, Normal bowel sounds Back: Nontender, Normal Inspection Extremities: Nontender, No edema, - - There is no asymmetry, swelling, discoloration, leg vein distention, palpable cords or tenderness along the distribution of the deep venous system. Skin: Normal color, No rash Neurological: Alert, Oriented x3, Cranial nerves II-XII grossly intact, Normal Strength, Normal Sensation Psychological: Normal affect, Normal Mood Diagnostic/Tx/Re-eval Laboratory Results 11/18/20 19:40 Sodium 137 Potassium 4.3 Chloride 106 Carbon Dioxide 25.0 Anion Gap 6 BUN 15 Creatinine 0.98 Estim Creat Clear Calc 61.23 Est GFR (MDRD) Af Amer 79 Est GFR (MDRD) Non-Af 66 BUN/Creatinine Ratio 15.2 Glucose 120 H Calcium 8.8 - EKG Follow-up EKG Interpretation: Sinus Rhythm - Normal sinus rhythm with ventricular rate of 63. NV interval 184 ms. Cures duration 82 ms. QT duration 4 to 12 ms. [place] is normal. EKG is unremarkable. - Medical Decision Making EKG was obtained per nurse protocol. Basic metabolic panel was obtained to assess for electrolyte abnormality as possible cause. No ectopy was noted. Plan is to discharge to home and follow-up with Maikol Cook ED Disposition - Plan for ED Patient: Disposition: Home or Assisted Living Diagnosis: Palpitations Instructions: ED Palpitations Referrals: Jaguar Cook PA [Primary Care Provider] - Keep Harjit appointment
[2020-11-18 20:15] LABS: Anion Gap 6 (5-15); BUN 15 mg/dL (7-18); BUN/Creat Ratio 15.2 RATIO (10-20); Calcium,Total 8.8 mg/dL (8.5-10.1); Chloride 106 mmol/L (98-107); Creatinine, Serum 0.98 mg/dL (0.55-1.02); EST Glomerular Filtration Rate 66 mL/min (>60); Est Glom Filt Rate - Afr Amer 79 mL/min (>60); Estimated Creatinine Clearance 61.23 ml/min; Glucose 120 mg/dL (74-106); Potassium 4.3 mmol/L (3.5-5.1); Sodium Level 137 mmol/L (136-145)
[2020-11-18 20:35] VITALS: PULSE 65; RESP 16
[2020-11-18 22:04] VITALS: PULSE 75; RESP 18; O2SAT 98
== END 2020-11-18 22:05 | disposition home or self-care (01) ==
PROVIDERS: Emergency Provider Emergency Medicine; PCP Physician Assistant
DX: R00.2 Palpitations (principal); E78.00 Pure hypercholesterolemia, unspecified; I10 Essential (primary) hypertension; Z90.49 Acquired absence of other specified parts of digestive tract
CPT/HCPCS: 80048; 93005; 99283; J7030; A4216

== ENCOUNTER 2021-11-25 11:54 | Emergency (ER) | payer MEDICAID, SELFPAY ==
[2021-11-25 11:55] VITALS: BP 209/119; PULSE 85; RESP 16; TEMP 35.7; O2SAT 96; BMI 30.1
--- NOTE | 2021-11-25 12:22 | ED.RN ---
pt decided to leave without being seen
== END 2021-11-25 12:13 | disposition left against medical advice (07) ==
LOC: ED 12:24
PROVIDERS: PCP Physician Assistant
DX: Z53.21 Procedure and treatment not carried out due to patient leaving prior to being seen by health care provider (principal)

== ENCOUNTER 2021-12-12 12:31 | Emergency (ER) | payer MEDICAID, SELFPAY ==
[2021-12-12 12:31] VITALS: BP 162/111; PULSE 72; RESP 17; TEMP 36.6; O2SAT 99; BMI 30.1
--- NOTE | 2021-12-12 12:35 | RAD_ITS ---
INDICATION: chest pain EXAMINATION/TECHNIQUE: X-RAY - XR Chest 1 View COMPARISON: Chest radiograph from 10/23/2014. FINDINGS: Support devices: None No focal consolidations, effusions, or sizable pneumothorax. Cardia mediastinal silhouette is within normal limits. No acute findings in the bones or soft tissues. RAD/Chest 1 View (Portable) IMPRESSION: No acute findings. Electronically Signed: Francesco Harper, at 13:41 EDT ,
--- NOTE | 2021-12-12 12:35 | EKG12_ITS ---
Test Reason : CP Blood Pressure : / mmHG Vent. Rate : 075 BPM Atrial Rate : 075 BPM P-R Int : 178 ms QRS Dur : 078 ms QT Int : 392 ms P-R-T Axes : 062 000 040 degrees QTc Int : 437 ms Normal sinus rhythm Normal ECG Confirmed by SEAN EUBANKS, ARIANA ([id number]), publishing editor CRAIG VOGT ([id number]) on 12/15/2021 9:44:46 AM Referred By: LIBBY/DARI Confirmed By:ARIANA ESTRADA MD
[2021-12-12 12:59] LABS: Absolute Lymphocyte Count 1.76 X10^3/uL (0.83-4.51); Basophil# 0.04 X10^3/uL; Basophil% 0.6 % (0-1); Eosinophil# 0.17 X10^3/uL; Eosinophils% 2.7 % (0-5); Hematocrit 41.9 % (37-47); Hemoglobin 14.3 g/dL (12.0-15.0); Lymphocyte # 1.76 X10^3/ul (0.83-4.51); Lymphocyte % 27.6 % (19-41); Mean Corp Hgb Conc 34.1 g/dL (32-36); Mean Corpuscular Hgb 30.4 pg (27.0-32.0); Mean Platelet Vol. 10.1 fl (6.2-12.0); Monocyte# 0.37 X10^3/uL; Monocyte% 5.8 % (0-10); NRBC Flagged by Analyzer 0 % (0-5); Neutrophil # 4.01 X10^3/uL (2.7-7.7); Neutrophil % 62.8 % (47-70); Platelet Count 265 K/mm3 (150-450); RBC Distribution Width CV 13.2 % (11.6-14.6); RBC Distribution Width SD 42.9 fl (35.1-43.9); Red Blood Count 4.71 M/mm3 (4.2-5.4); White Blood Count 6.4 K/mm3 (4.4-11.0)
[2021-12-12 13:17] VITALS: BP 128/76; PULSE 88; RESP 16; O2SAT 98
[2021-12-12 13:32] LABS: Anion Gap 7 (5-15); BUN 12 mg/dL (7-18); BUN/Creat Ratio 15.6 RATIO (10-20); Calcium,Total 8.5 mg/dL (8.5-10.1); Chloride 104 mmol/L (98-107); Creatinine, Serum 0.77 mg/dL (0.55-1.02); EST Glomerular Filtration Rate 87 mL/min (>60); Est Glom Filt Rate - Afr Amer 105 mL/min (>60); Estimated Creatinine Clearance 77.13 ml/min; Glucose 151 mg/dL (74-106); Potassium 3.7 mmol/L (3.5-5.1); Sodium Level 137 mmol/L (136-145); Troponin-I HS 4 pg/mL (3.0-54.0)
[2021-12-12 14:33] VITALS: BP 134/78; PULSE 78; RESP 16; TEMP 37.1; O2SAT 98
--- NOTE | 2021-12-12 14:37 | EDS_ITS ---
HPI History of Present Illness Chief Complaint: Chest Pain Informant: patient Onset/Context/Timing Onset: Yesterday Activity at onset: gradual Timing: Continuous Quality: Positive for Sharp and - (Squeezing) Location: Left Chest Worsened By: Movement of Torso Relieved By: Remaining Still Associated Symptoms: Positive for Lightheadedness; Negative for Nausea, Vomiting, Diaphoresis, Dyspnea, Cough, Fever, Acid Reflux and Palpitations Narrative Narrative: Patient presents with chest pain that began yesterday. Patient states it has been constant since yesterday evening. Patient states it began kind of gradually. Patient describes her pain as sharp and squeezing. Patient states the pain is over the left upper chest. Patient states it goes into her left shoulder. Patient states it is worse whenever she moves her chest. Patient states it is better with rest. Patient denies any nausea or vomiting. Patient denies any diaphoresis. Patient denies any shortness of breath or cough. Patient does admit to some lightheadedness. CVD Risk Factors: Positive for Hypertension, Hypercholesterolemia and Family History 1' </=55; Negative for Diabetes and Smoking PE Risk Factors: Negative for Recent Travel/Surgery, Recent Immobilization, Prior DVT or PE, Cancer and OCP + Smoking + >/=35 PFSH PFSH Medical History (Updated 12/12/21 @ 14:[address] Jimbo Whittaker DO) Encounter for screening for COVID-19 History of hypercholesterolemia Hypertension Home Medications metoprolol tartrate 50 mg PO BID 09/11/13 [History Last Taken 11/18/20] simvastatin 10 mg PO DAILY 01/21/19 [History Last Taken 11/18/20] albuterol sulfate 2 puff INHALATION Q6H PRN 11/18/20 [History Last Taken 11/18/20] citalopram 40 mg PO DAILY 11/18/20 [History Last Taken 11/18/20] fluticasone propionate 2 spray NASAL DAILY 11/18/20 [History Last Taken 11/18/20] omeprazole 20 mg PO DAILY 11/18/20 [History Last Taken 11/18/20] Allergy/AdvReac Type Severity Reaction Status Date / Time No Known Allergies Allergy Verified 12/12/21 12:31 Family History (Updated 12/12/21 @ 14:[address] Jimbo Whittaker DO) Other CAD (coronary artery disease) Surgical History (Updated 12/12/21 @ 14:[address] Jimbo Whittaker, DO) Hx of cholecystectomy Hx of tubal ligation Social History Smoking Status: Never smoker ROS ROS ED Constitutional Constitutional ED: Denies chills or fever(s) Eyes Eyes: Denies blurry vision or change in vision ENT ENT ED: Denies rhinorrhea or sore throat Cardiovascular Cardiovascular: Reports chest pain; Denies palpitations Respiratory/Chest Respiratory/Chest: Denies cough or dyspnea Gastrointestinal Gastrointestinal: Denies abdominal pain, nausea or vomiting Genitourinary Genitourinary ED: Denies dysuria or hematuria Musculoskeletal Musculoskeletal: Denies back pain or neck pain Integumentary Denies abscess or rash Neurologic Neurologic: Denies headache(s) or weakness Allergic/Immunologic Allergic/Immunologic ED: Denies mouth swelling or urticaria EXAM Physical Exam Const Vital Signs: 12/12/21 12:31 12/12/21 13:17 12/12/21 14:33 Temperature 97.8 F 98.7 F Temperature Source Temporal Temporal Pulse Rate 72 88 78 Respiratory Rate 17 16 16 Blood Pressure 162/111 H 128/76 H 134/78 H Blood Pressure Mean 128 93 96 Pulse Ox 99 98 98 Oxygen Delivery Method Room Air Room Air Room Air Positive well nourished and well developed General Appearance ED: well developed and NAD HEENT normocephalic and atraumatic Eyes PERRL and EOMs intact bilaterally Neck supple and no JVD Chest Wall palpation of chest normal Resp normal respiratory effort and clear to auscultation bilaterally Effort and Inspection: Negative for respiratory distress Cardio regular rate, regular rhythm and no murmurs GI normal to inspection, nondistended, normoactive bowel sounds, soft to palpation, non-tender and non-distended Extremity normal to inspection General Extremety ED: Negative for edema or tenderness General Extremity: Negative for edema Neuro oriented x3, CN's II-XII intact bilaterally and no sensory deficits noted Sensorium / Orientation: awake and alert Motor Exam: strength 5/5 throughout Psych mental status grossly normal Heart Score History: Slightly/Non-Suspicious ECG: Normal Age: </= 45 years Risk Factors: >/= 3 Risk Factors or History of CAD Troponin: </= Normal Limit Score: 2 MDM MDM MDM Narrative Medical decision making narrative: EKG was obtained. On my interpretation, it showed a normal sinus rhythm with a rate of 75. MI interval, QRS interval, and QTc intervals were all normal. [place] was normal. There are no acute ST or T wave changes. Portable 1 view chest x-ray was obtained. On my interpretation, lung [place] are clear. There is normal cardiac silhouette. Bony thorax is normal. There is no acute process noted. Radiologist also interpreted the x- ray and agrees. CBC and basic metabolic profile were obtained were within normal limits. High-sensitivity troponin was normal at 4. Patient has a HEART score of 2. Patient was advised that this is low risk for acute cardiac event. Patient was instructed to follow-up with her primary care physician in 5 to 7 days for further evaluation. Patient understood and was agreeable with the plan. All questions were answered. Lab Data Attestation: I reviewed the patient's lab results. Labs: Laboratory Results - last 24 hr 12/12/21 12/12/21 12:49 12:49 WBC 6.4 RBC 4.71 Hgb 14.3 Hct 41.9 MCV 89.0 MCH 30.4 MCHC 34.1 RDW Std Deviation 42.9 RDW Coeff of Shazia 13.2 Plt Count 265 MPV 10.1 Immature Gran % (Auto) 0.500 Neut % (Auto) 62.8 Lymph % (Auto) 27.6 [place] % (Auto) 5.8 Eos % (Auto) 2.7 Baso % (Auto) 0.6 Absolute Neuts (auto) 4.0 Absolute Lymphs (auto) 1.76 Nucleated RBC % 0 Sodium 137 Potassium 3.7 Chloride 104 Carbon Dioxide 26.0 Anion Gap 7 BUN 12 Creatinine 0.77 Estim Creat Clear Calc 77.13 Est GFR (MDRD) Af Amer 105 Est GFR (MDRD) Non-Af 87 BUN/Creatinine Ratio 15.6 Glucose 151 H Calcium 8.5 Troponin I High Sens 4 Radiography Chest X-Ray - ED: 1 View, Read by ED Physician, Read by Radiologist and Normal Diagnostic Testing: Clinical Impression(s) from Imaging Studies Chest X-Ray 12/12/21 12:35 IMPRESSION: No acute findings. Electronically Signed: Francesco Leroy, at 13:41 EDT , EKG Initial EKG: Attestation: I personally reviewed and interpreted this EKG as follows: Interpretation: Sinus Rhythm (75) and No Acute Injury Pattern Discharge Plan Triage Chief Complaint: Chest Pain ED Provider: Jimbo Whittaker Dx/Rx/DC Orders Clinical Impression: Chest pain Instructions: ED Chest Pain, Uncertain Cause Prescriptions: No Action metoprolol tartrate 50 MG tablet 50 mg PO BID RF: 0 simvastatin 10 tablet 10 mg PO DAILY RF: 0 citalopram 40 MG tablet 40 mg PO DAILY RF: 0 omeprazole 20 MG tablet,delayed release (DR/EC) 20 mg PO DAILY RF: 0 albuterol sulfate 1 PUFF inhaler 2 puff INHALATION Q6H PRN (Reason: Sob &/Or Wheezing) RF: 0 fluticasone propionate 1 SPRAY spray,suspension 2 spray NASAL DAILY RF: 0 Primary Care Provider: Jaguar Cook Referrals: Jaguar Cook, JOE [Primary Care Provider] - 5-7 Days Disposition Disposition: Home, Self Care Discharge Date/Time: 12/12/21 14:43
[2021-12-12 14:42] VITALS: BP 126/78; PULSE 72; RESP 14; TEMP 36.9; O2SAT 98
== END 2021-12-12 14:43 | disposition home or self-care (01) ==
PROVIDERS: Emergency Provider Emergency Medicine; PCP Physician Assistant; Visit Provider Emergency Medicine
DX: R07.9 Chest pain, unspecified (principal)
CPT/HCPCS: 71045; 80048; 84484; 85025; 93005; 99284; A4216

== ENCOUNTER 2022-03-01 11:08 | Emergency (ER) | payer MEDICAID, SELFPAY ==
[2022-03-01 11:09] VITALS: BP 112/99; PULSE 55; RESP 17; TEMP 36.4; O2SAT 100; BMI 31.8
--- NOTE | 2022-03-01 11:55 | ED.VIS.GI ---
HPI HPI - GI History of Present Illness Chief Complaint: Abd Pain Detail of Chief Complaint: Remittent sharp right upper quadrant abdominal pain Informant: patient Abdominal Pain/Flank Pain Onset: Month(s) Context: Sudden Onset Timing: Intermittent Quality: Sharp Location: RUQ Current Severity: Gone Maximum Severity: Severe Worsened by: Nothing Relieved by: Nothing Nausea/Vomiting/Emesis GI Symptom: Positive for Nausea; Negative for Vomiting Diarrhea/Melena/Hematochezia GI Symptom: Negative for Diarrhea, Melena and Hematochezia Associated Symptoms Associated Symptoms: Negative for Dysuria, Frequency and Hematuria Narrative Narrative: Patient is a 46-year-old woman status post cholecystectomy who was seen by Maikol Cook at the [facility]. She has had outpatient work-up which included blood work and ultrasound. Blood work reveals elevated liver enzymes and a liver nodule. She is scheduled for an MRI of her liver 07 March. She went to urgent care because she had 10 episodes of this pain since 2:00 in the morning. Pain woke her from sleep. Duration of the pain was 1 minute. There was associated nausea. There was no radiation or any other symptoms. Patient states she came to the emergency room because she was told to by the urgent care. They informed her that she would need a CAT scan. Prior similar symptoms: Yes Recent Illness/Hospitalization: Yes [facility] Medical History Encounter for screening for COVID-19 History of hypercholesterolemia Hypertension Home Medications metoprolol tartrate 50 mg PO BID 09/11/13 [History Last Taken 11/18/20] simvastatin 10 mg PO DAILY 01/21/19 [History Last Taken 11/18/20] albuterol sulfate 2 puff INHALATION Q6H PRN 11/18/20 [History Last Taken 11/18/20] citalopram 40 mg PO DAILY 11/18/20 [History Last Taken 11/18/20] fluticasone propionate 2 spray NASAL DAILY 11/18/20 [History Last Taken 11/18/20] omeprazole 20 mg PO DAILY 11/18/20 [History Last Taken 11/18/20] Allergy/AdvReac Type Severity Reaction Status Date / Time No Known Allergies Allergy Verified 03/01/22 11:08 Family History Other CAD (coronary artery disease) Surgical History Hx of cholecystectomy Hx of tubal ligation Social History (Updated 03/01/22 @ 11:[address] Zechariah Barrera MD) Smoking Status: Never smoker substance use type: does not use ROS ROS ED Constitutional Constitutional ED: Denies chills, fever(s), subjective, sweats or weight loss ENT ENT ED: Denies ear pain, rhinorrhea or sore throat Cardiovascular Cardiovascular: Denies chest pain or palpitations Respiratory/Chest Respiratory/Chest: Denies cough, dyspnea or dyspnea on exertion Gastrointestinal Gastrointestinal: Reports abdominal pain and nausea; Denies constipation, diarrhea, melena or vomiting Genitourinary Genitourinary ED: Denies dysuria, hematuria or urinary frequency Musculoskeletal Musculoskeletal: Denies arthralgias, back pain, myalgias or neck pain Neurologic Neurologic: Denies headache(s) Endocrine Endocrinology: Denies polydipsia, polyphagia or polyuria EXAM Physical Exam Const Vital Signs: 03/01/22 11:09 Temperature 97.6 F L Temperature Source Temporal Pulse Rate 55 L Respiratory Rate 17 Blood Pressure 112/99 H Blood Pressure Mean 103 Pulse Ox 100 Oxygen Delivery Method Room Air Positive well nourished, well developed and obese General Appearance ED: well developed, NAD and other I entered the room patient was texting on her phone. ; Negative for pallor Nutritional Appearance: obese HEENT Reports moist mucous membranes normocephalic and atraumatic; Negative for tenderness Eyes PERRL and EOMs intact bilaterally General Eye ED: Negative for pale conjunctiva or scleral icterus Neck no lymphadenopathy, supple and no JVD Resp normal respiratory effort and clear to auscultation bilaterally Cardio regular rate, regular rhythm, S1 normal heart sound, S2 normal heart sound and no murmurs GI non-distended and no masses; Negative for non-tender Inspection: Negative for abdominal distention Auscultation: normoactive bowel sounds and hypoactive bowel sounds Palpation: soft and tender RUQ, Reynaga's sign and Rovsing's sign; Negative for guarding or rigid Neuro CN's II-XII intact bilaterally Sensorium / Orientation: alert and oriented to person Psych mental status grossly normal and thought process normal Skin no wounds General Skin Exam: Negative for jaundice or pallor Lesions: no lesions Rashes: no rashes MDM MDM MDM Narrative Medical decision making narrative: Patient with right upper quadrant pain and no nodule. Plan was to obtain blood work to assess if any emergent imaging need to be determined. She states nurse attempted twice and would not allow anyone else to obtain blood. She informed me that if I am not going to order CAT scan that she would like to leave. Patient was informed there is no indication for CAT scan. Her exam is unremarkable and this is a chronic issue and she is scheduled for an outpatient MRI. She is not certain why an MRI was chosen over a CAT scan. Discharge Plan Triage Chief Complaint: Abd Pain ED Provider: Zechariah Barrera Dx/Rx/DC Orders Clinical Impression: Intermittent right upper quadrant abdominal pain, Elevated liver enzymes, Nodule on liver Instructions: ED Abdominal Pain Unkn Cause Fem Prescriptions: No Action metoprolol tartrate 50 MG tablet 50 mg PO BID RF: 0 simvastatin 10 tablet 10 mg PO DAILY RF: 0 citalopram 40 MG tablet 40 mg PO DAILY RF: 0 omeprazole 20 MG tablet,delayed release (DR/EC) 20 mg PO DAILY RF: 0 albuterol sulfate 1 PUFF inhaler 2 puff INHALATION Q6H PRN (Reason: Sob &/Or Wheezing) RF: 0 fluticasone propionate 1 SPRAY spray,suspension 2 spray NASAL DAILY RF: 0 Primary Care Provider: Jaguar Cook Referrals: Jaguar Cook PA [Primary Care Provider] - Keep Harjit appointment Disposition Disposition: Home, Self Care
== END 2022-03-01 12:11 | disposition home or self-care (01) ==
PROVIDERS: Emergency Provider Emergency Medicine; PCP Physician Assistant; Visit Provider Emergency Medicine
DX: R10.11 Right upper quadrant pain (principal); K76.89 Other specified diseases of liver; E66.9 Obesity, unspecified
CPT/HCPCS: 99282; A4216

== ENCOUNTER 2022-03-09 01:53 | Emergency (ER) | payer MEDICAID, SELFPAY ==
[2022-03-09 01:53] VITALS: BP 156/100; PULSE 66; RESP 18; TEMP 36.1; O2SAT 100; BMI 31.6
--- NOTE | 2022-03-09 02:05 | RAD_ITS ---
STUDY: X-RAY - RIGHT SHOULDER REASON FOR EXAM: Female, 46 years old. Injury/Pain TECHNIQUE: 3 view(s) of the shoulder. COMPARISON: None. FINDINGS: Normal glenohumeral articulation. Normal acromioclavicular joint. Normal acromion. Normal humeral head and visualized proximal humerus. The soft tissue structures are unremarkable. Normal visualized pulmonary apex. RAD/Shoulder min 2 Views IMPRESSION: Normal x-ray examination of the shoulder. Electronically Signed: Kyleigh Albarado MD at 2:46 EDT ,
--- NOTE | 2022-03-09 02:06 | EX.ED.UPPERE ---
HPI History of Present Illness Chief Complaint: Upper Extremity Injury Detail of Chief Complaint: Patient presents because of severe right shoulder pain that awoke her from Informant: patient Occured/Mechanism Mechanism/Context: Yes other see comment below Comment: Rolled over in bed onto her right shoulder and had severe pain. Onset/Context/Timing Onset: Hours Context: Sudden Onset Timing: Continuous Quality of Pain: Sharp and Dull Location: Right shoulder region Current Severity: Mild Maximum Severity: Severe Worsened by: Rolling onto it Relieved by: Nothing Associated Symptoms Associated Symptoms: Negative for Parasthesia, Weakness and Loss of Funtion Narrative Narrative: Patient is a 46-year-old [id number]-etjqkeib woman who was seen at urgent care and placed on prednisone for right shoulder pain. She is injured the shoulder in the past. There is no history of subluxation or dislocation. She presents because she developed severe pain when she rolled onto it and awoke her from sleep. She denies paresthesia, anesthesia or motor weakness. She is presently holding her right upper extremity a deducted and internally rotated against her torso. There is no history of gout or pseudogout. There is no history of trauma. Tetanus Immunization: Unknown Prior similar symptoms: No Recent Illness/Hospitalization: Yes [facility] Medical History Encounter for screening for COVID-19 History of hypercholesterolemia Hypertension Home Medications metoprolol tartrate 50 mg PO BID 09/11/13 [History Last Taken 11/18/20] simvastatin 10 mg PO DAILY 01/21/19 [History Last Taken 11/18/20] albuterol sulfate 2 puff INHALATION Q6H PRN 11/18/20 [History Last Taken 11/18/20] fluticasone propionate 2 spray NASAL DAILY 11/18/20 [History Last Taken 11/18/20] omeprazole 20 mg PO DAILY 11/18/20 [History Last Taken 11/18/20] naproxen 500 mg PO BID #14 tab 03/09/22 [Rx Last Taken Unknown] prednisone 40 mg PO 03/09/22 [History Last Taken Unknown] Allergy/AdvReac Type Severity Reaction Status Date / Time No Known Allergies Allergy Verified 03/09/22 01:56 Family History Other CAD (coronary artery disease) Surgical History Hx of cholecystectomy Hx of tubal ligation Social History (Updated 03/09/22 @ 02:[address] Zechariah Barrera MD) household members: none Smoking Status: Never smoker substance use type: does not use ROS ROS ED Constitutional Constitutional ED: Denies chills, fever(s), subjective or sweats Cardiovascular Cardiovascular: Denies chest pain or palpitations Respiratory/Chest Respiratory/Chest: Denies cough, dyspnea or dyspnea on exertion Gastrointestinal Gastrointestinal: Denies nausea or vomiting Musculoskeletal Musculoskeletal: Denies back pain, myalgias or neck pain Neurologic Neurologic: Denies paresthesias or weakness Hematologic/Lymphatic Hematologic/Lymphatic: Denies easy bleeding or easy bruising EXAM Physical Exam Const Vital Signs: 03/09/22 01:53 Temperature 96.9 F L Temperature Source Temporal Pulse Rate 66 Respiratory Rate 18 Blood Pressure 156/100 H Blood Pressure Mean 118 Pulse Ox 100 Oxygen Delivery Method Room Air Positive well nourished, well developed and obese General Appearance ED: well developed; Negative for cyanotic or NAD Nutritional Appearance: obese HEENT Reports moist mucous membranes normocephalic and atraumatic Eyes PERRL Neck full ROM and supple General: tenderness Chest Wall palpation of chest normal Resp normal respiratory effort and clear to auscultation bilaterally Cardio regular rate, regular rhythm, S1 normal heart sound, S2 normal heart sound and no murmurs Extremity normal to inspection; Negative for full ROM Extremity Narrative: Patient complains of pain with palpation of the clavicle, AC joint and proximal humerus. There is no pain the patient over the lateral or medial epicondyle. There is no pain the patient over the lateral process or the radial head. There is no pain ovation with distal radius or ulna. There is no pain ovation of the carpal bones, metacarpal bones or phalanges. Axillary, median, radial and ulnar function intact. Passive AB duction causes pain at 60 to 90 degrees and increased pain past 90 degrees. The glenoid fossa is not empty. Clinically patient does not have a subluxed or dislocated shoulder. Since she has history of prior injuries x-rays obtained to assess for calcification of the supraspinatus tendon. General Extremety ED: Negative for edema General Extremity: Negative for edema Neuro oriented x3, CN's II-XII intact bilaterally and no sensory deficits noted Sensorium / Orientation: alert Motor Exam: strength 5/5 throughout Psych mental status grossly normal Mood & Affect: tearful Skin Lesions: no lesions Rashes: no rashes Trauma: no lacerations or abrasions MDM MDM MDM Narrative Medical decision making narrative: X-ray was obtained to evaluate for arthritic changes, calcification of the supraspinatus tendon. Doubt subluxation or dislocation. Patient was treated with 500 mg of Naprosyn since she has no contraindication. Radiography Diagnostic Testin view x-ray of the right shoulder was independently reviewed and interpreted by me at 0221 as negative. There is no subluxation, dislocation or fracture. There is no calcification of the supraspinatus tendon. The AC joint appears normal. Discharge Plan Triage Chief Complaint: Upper Extremity Injury ED Provider: Zechariah Barrera Dx/Rx/DC Orders Clinical Impression: Acute pain of right shoulder Instructions: ED Shoulder Pain, Uncertain Cause Prescriptions: New naproxen 500 MG tablet 500 mg PO BID Qty: 14 RF: 0 No Action metoprolol tartrate 50 MG tablet 50 mg PO BID RF: 0 simvastatin 10 tablet 10 mg PO DAILY RF: 0 omeprazole 20 MG tablet,delayed release (DR/EC) 20 mg PO DAILY RF: 0 albuterol sulfate 1 PUFF inhaler 2 puff INHALATION Q6H PRN (Reason: Sob &/Or Wheezing) RF: 0 fluticasone propionate 1 SPRAY spray,suspension 2 spray NASAL DAILY RF: 0 prednisone 10 mg tablet 40 mg PO RF: 0 Primary Care Provider: Jaguar Cook Referrals: Jaguar Cook PA [Primary Care Provider] - 3-5 Days if not improving Activity Restrictions/Additional Instructions: 1. Stop taking prednisone 2. Take Naprosyn as directed 3. Apply ice to right shoulder 6-8 times a day 4. You need to move your shoulder otherwise you may develop what is known as a frozen shoulder joint Disposition Disposition: Home, Self Care
[2022-03-09] MEDS: Naproxen 500 MG Tablet PO (02:14)
== END 2022-03-09 02:30 | disposition home or self-care (01) ==
PROVIDERS: Emergency Provider Emergency Medicine; PCP Physician Assistant; Visit Provider Emergency Medicine
DX: M25.511 Pain in right shoulder (principal); E78.00 Pure hypercholesterolemia, unspecified; I10 Essential (primary) hypertension; E66.9 Obesity, unspecified; Z79.899 Other long term (current) drug therapy
CPT/HCPCS: 73030; 99283

== ENCOUNTER → 2022-04-24 | Outpatient (CLI) | payer MEDICAID, SELFPAY ==
--- NOTE | 2022-04-24 12:34 | STE_ITS ---
Reason For Study: Chest Pain; Palpitations; Dyspnea On Exertion Stress Results Protocol: Juan Carlos Protocol Maximum Predicted HR: 176 bpm Target HR: 150 bpm % Maximum Predicted HR: 83 % DurationHeart Rate Stage (mm:ss) (bpm) BP Comment Baseline 68 128/84No Chest Pain; Took Metoprolol Last HS Juan Carlos Protocol Stage I 3:00 103 134/78No Chest Pain Juan Carlos Protocol Stage II 3:00 129 140/86No Chest Pain; Mild Dyspnea Juan Carlos Protocol Stage III 2:11 146 150/90No Chest Pain; Moderate Dyspnea Recovery 83 126/78No Chest Pain Stress Duration: 8:11 mm:ss Maximum Stress HR: 146 bpm METS: 10 Baseline Echocardiogram Findings Stress Echo Wall motion Data Resting WM Intermediate WM Stress WM ECHO/Stress Test Echo w/o Contrast Interpretation Summary Exercise stress echo. 46-year-old male with a history of hypertension. Stress electrocardiogram. Resting EKG demonstrates normal sinus rhythm with a r ate of 68 bpm normal intervals are noted resting blood pressure is 128/84 mmHg. The patient exercise d according to regular Juan Carlos protocol for total duration of 8 minutes and 11 seconds. The maxi mum heart rate attained was 146 bpm which was 82% of max impacted heart rate the maximum workl oad was 10.1 metabolic equivalents. At rest there were no ST or T wave changes noted suggest ischemia and at peak exercise upsloping ST changes were noted with did not meet the criteria for isc hemia. No clinical angina was noted. The peak blood pressure is 150/90 mmHg which was a normal blo od pressure response to exercise. No chest pain was noted mild to moderate dyspnea was present. Stress echocardiogram. The resting echocardiographic evaluation demonstrated ej ection fraction of 55%. No wall motion abnormalities were noted. The patient exercised according t o regular Juan Carlos protocol and at peak exercise stress echocardiographic images were obtained. Th ere was thickening of all mckay and reduction of the ventricular cavity size and peaking of ejection fraction of 65% with no wall motion abnormalities noted. Conclusion: Exercise stress echocardiogram with no EKG criteria for ischemia at a high work load. Resting and stress echocardiographic evaluation demonstrated no evidence of isc hemia. Ordering Physician: LYLE SOMMER Referring Physician: Lyle Sommer Performed By: Ana Mason, ANTHONY, RVT
== END | disposition home or self-care (01) ==
PROVIDERS: PCP Physician Assistant
DX: I25.10 Atherosclerotic heart disease of native coronary artery without angina pectoris (principal); R00.2 Palpitations; E78.5 Hyperlipidemia, unspecified; I10 Essential (primary) hypertension; R07.9 Chest pain, unspecified; R94.31 Abnormal electrocardiogram [ECG] [EKG]
CPT/HCPCS: 93017; 93350

== ENCOUNTER 2022-08-23 12:05 | Emergency (ER) | payer MEDICAID, SELFPAY ==
[2022-08-23 12:05] VITALS: BP 167/125; PULSE 65; RESP 16; TEMP 36.6; O2SAT 99; BMI 31.1
--- NOTE | 2022-08-23 13:05 | CT_ITS ---
EXAM: CT HEAD WITHOUT INTRAVENOUS CONTRAST CLINICAL INDICATION: headache TECHNIQUE: Multiple axial images were obtained of the head without intravenous contrast. This CT exam was performed using one or more of the following dose reduction techniques: automated exposure control, adjustment of the mA and/or kV according to patient size, and/or use of iterative reconstruction technique. This report was created using [employer] report generation technology. COMPARISON: CT Head dated 06/03/2017 FINDINGS: BRAIN AND EXTRA-AXIAL SPACES: Normal. No intra- or extra-axial hemorrhage. No evidence of acute infarct. No intracranial mass or mass effect. There is preservation of the tipton/white matter interface. Posterior fossa structures are unremarkable. Ventricles are appropriate for age. No hydrocephalus. Basal cisterns are patent. BONES/JOINTS: Normal. No discrete lytic or blastic abnormalities. SINUSES: Mucosal thickening of the paranasal sinuses noted. MASTOID AIR CELLS: Normal. Clear. ORBITS: Visualized globes, extraocular muscles, optic nerves and retrobulbar fat appear unremarkable. CT/Brain/Head without Contrast IMPRESSION: No acute intracranial abnormality. Paranasal sinusitis. Electronically Signed: Marv Mcfadden MD at 15:55 EST ,
--- NOTE | 2022-08-23 13:06 | EX.ED.VIS.HA ---
HPI History of Present Illness Chief Complaint: Headache Narrative Narrative: 46-year-old female presenting with headache. She states she does not have a history of migraine headaches. She states that her headache started abruptly about 5 days ago and gradually worsened. She denies any head trauma. She does admit to light sensitivity and sound sensitivity. No nausea or vomiting. She does not have any neck pain. No fever or chills. [facility] Medical History Encounter for screening for COVID-19 History of hypercholesterolemia Hypertension Home Medications metoprolol tartrate 50 mg tablet 50 mg PO BID 09/11/13 [History Last Taken 11/18/20] simvastatin 10 mg tablet 10 mg PO DAILY 01/21/19 [History Last Taken 11/18/20] albuterol sulfate 90 mcg/actuation aerosol inhaler 2 puff inhalation Q6H PRN Sob &/Or Wheezing 11/18/20 [History Last Taken 11/18/20] fluticasone propionate 50 mcg/actuation nasal spray,suspension 2 spray NASAL DAILY ALLERGIES 11/18/20 [History Last Taken 11/18/20] omeprazole 20 mg tablet,delayed release 20 mg PO DAILY 11/18/20 [History Last Taken 11/18/20] Allergy/AdvReac Type Severity Reaction Status Date / Time No Known Allergies Allergy Verified 08/23/22 12:08 Family History Other CAD (coronary artery disease) Surgical History Hx of cholecystectomy Hx of tubal ligation Social History household members: none Smoking Status: Never smoker substance use type: does not use ROS ROS ED Constitutional Constitutional ED: Denies chills or fever(s) Eyes Eyes: Reports other Details: Photophobia ; Denies change in vision or diplopia ENT ENT ED: Reports other Details: Phonophobia ; Denies rhinorrhea or sore throat Cardiovascular Cardiovascular: Denies chest pain or palpitations Respiratory/Chest Respiratory/Chest: Denies cough or dyspnea Gastrointestinal Gastrointestinal: Reports nausea; Denies vomiting Genitourinary Genitourinary ED: Denies dysuria or hematuria Musculoskeletal Musculoskeletal: Denies arthralgias or back pain Integumentary Denies abscess Neurologic Neurologic: Reports headache(s); Denies paresthesias, weakness or other Psychiatric Psychiatric: Denies anxiety or depression EXAM Physical Exam Const Vital Signs: 08/23/22 12:05 08/23/22 13:45 Temperature 97.8 F Temperature Source Temporal Pulse Rate 65 87 Respiratory Rate 16 15 Blood Pressure 167/125 H 142/89 H Blood Pressure Mean 139 106 Pulse Ox 99 99 Oxygen Delivery Method Room Air Room Air Positive well nourished General Appearance ED: NAD HEENT Reports normocephalic atraumatic; Negative for temporal artery tenderness Eyes PERRL Neck no lymphadenopathy, supple and no meningeal signs Resp normal respiratory effort Cardio regular rate and regular rhythm Neuro oriented x3 and CN's II-XII intact bilaterally Sensorium / Orientation: awake and alert Speech: speech normal Motor Exam: strength 5/5 throughout Psych mental status grossly normal Appearance: grossly normal and well kempt Attitude: calm Activity / Motor Behavior: appropriate eye contact Speech: normal speech Mood & Affect: other Smiling and laughing Insight: insight good Judgement: judgement good MDM MDM MDM Narrative Medical decision making narrative: Patient presenting with headache. On examination she has no focal neurologic deficits or lateralizing signs or symptoms. She has appears to be in a good mood and is smiling and laughing. She states that her headache did start abruptly 5 days ago and is worsened slowly. She denies neck pain or stiffness. No fevers or chills. Denies any trauma. Will obtain head CT. Patient medicated with Reglan and Benadryl as well as a liter normal saline. Patient was signed out AMA because she had to leave due to a family emergency and she had head CT pending. She did report she is feeling better. Impression: 1. Headache Lab Data Attestation: I reviewed the patient's lab results. Discharge Plan Triage Chief Complaint: Headache ED Provider: Jose Manuel Mendoza Dx/Rx/DC Orders Prescriptions: No Action metoprolol tartrate 50 MG tablet 50 mg PO BID Label Comments: BP/HEART MEDICATION simvastatin 10 tablet 10 mg PO DAILY omeprazole 20 MG tablet,delayed release (DR/EC) 20 mg PO DAILY albuterol sulfate 1 PUFF inhaler 2 puff INHALATION Q6H PRN (Reason: Sob &/Or Wheezing) Label Comments: Inhale 2 Puffs as instructed every 6 hours as needed. fluticasone propionate 1 SPRAY spray,suspension 2 spray NASAL DAILY Primary Care Provider: Jaguar Cook Referrals: Jaguar Cook, PA [Primary Care Provider] -
[2022-08-23 13:45] VITALS: BP 142/89; PULSE 87; RESP 15; O2SAT 99
[2022-08-23] MEDS: DiphenhydrAMINE 50 MG/ML Syringe 25 MG IV (13:46)
[2022-08-23] MEDS: 0.9% Normal Saline 1,000 ML 999 ML IV (13:46)
[2022-08-23] MEDS: Metoclopramide 10 MG/2 ML Vial IV (13:46)
== END 2022-08-23 14:25 | disposition left against medical advice (07) ==
PROVIDERS: Emergency Provider Student in an Organized Health Care Education/Training Program; PCP Physician Assistant; Visit Provider Student in an Organized Health Care Education/Training Program
DX: R51.9 Headache, unspecified (principal); I10 Essential (primary) hypertension; E78.00 Pure hypercholesterolemia, unspecified; Z79.899 Other long term (current) drug therapy
CPT/HCPCS: 70450; 96374; 96375; J7030; A4216

== ENCOUNTER 2022-09-25 23:34 | Emergency (ER) | payer MEDICAID, SELFPAY ==
[2022-09-25 23:35] VITALS: BP 165/105; PULSE 81; RESP 20; TEMP 37.2; O2SAT 99; BMI 30.1
--- NOTE | 2022-09-26 | RAD_ITS ---
STUDY: X-RAY CHEST REASON FOR EXAM: Female, 46 years old. cough sob TECHNIQUE: Single AP portable view of the chest. COMPARISON: None. FINDINGS: Ill-defined groundglass opacities left lung base suggesting early pneumonia. There is no demonstrated pleural abnormality. Normal size heart. Normal mediastinum and suzan. Normal visualized pulmonary arteries. Normal visualized aortic arch and descending thoracic aorta. Normal visualized thoracic spine. Normal visualized ribs, clavicles, and shoulders. There is no demonstrated abnormality of the visualized soft tissue structures of the upper abdomen. RAD/Chest PA and Lateral IMPRESSION: Possible early left lower lobe pneumonia. Electronically Signed: Kyleigh Albarado MD at 1:15 EST ,
[2022-09-26] MEDS: Albuterol 2.5 MG/3 ML VIAL.NEB. INHALATION ×2 (00:03)
[2022-09-26] MEDS: Ipratropium/Albuterol Sulfate 3 ML AMPUL.NEB INHALATION (00:04)
--- NOTE | 2022-09-26 00:09 | EX.ED.DYSGE1 ---
HPI History of Present Illness Chief Complaint: Shortness of Breath Detail of Chief Complaint: Cough, shortness of breath, wheezing Informant: patient Onset/Context/Timing Onset: Weeks Current Severity: Moderate Maximum Severity: Moderate Narrative Narrative: Patient presents secondary to cough, shortness of breath, wheezing, chest heaviness. Patient states she has been sick since August 04. She has been on albuterol inhaler and reportedly had a round of prednisone without improvement. She had a fever on the and was seen and evaluated. COVID and influenza test on that date were negative. Patient states tonight she was having trouble sleeping because of some chest heaviness and wheezing so she presented for evaluation. [facility] Medical History Encounter for screening for COVID-19 History of hypercholesterolemia Hypertension Home Medications metoprolol tartrate 50 mg tablet 50 mg PO BID 09/11/13 [History Last Taken 11/18/20] simvastatin 10 mg tablet 10 mg PO DAILY 01/21/19 [History Last Taken 11/18/20] albuterol sulfate 90 mcg/actuation aerosol inhaler 2 puff inhalation Q6H PRN Sob &/Or Wheezing 11/18/20 [History Last Taken 11/18/20] fluticasone propionate 50 mcg/actuation nasal spray,suspension 2 spray NASAL DAILY ALLERGIES 11/18/20 [History Last Taken 11/18/20] omeprazole 20 mg tablet,delayed release 20 mg PO DAILY 11/18/20 [History Last Taken 11/18/20] albuterol sulfate 90 mcg/actuation aerosol inhaler (Ventolin HFA) 2 puff inhalation Q4H PRN PRN Wheezing ##1 09/26/22 [Rx Last Taken Unknown] doxycycline monohydrate 100 mg capsule 100 mg PO BID #20 caps 09/26/22 [Rx Last Taken Unknown] potassium chloride 20 mEq tablet,extended release 20 meq PO BID #6 tabs 09/26/22 [Rx Last Taken Unknown] Allergy/AdvReac Type Severity Reaction Status Date / Time No Known Allergies Allergy Verified 08/23/22 12:08 Family History Other CAD (coronary artery disease) Surgical History Hx of cholecystectomy Hx of tubal ligation Social History household members: none Smoking Status: Never smoker substance use type: does not use ROS ROS ED Constitutional Constitutional ED: Reports fever(s) and other Details: Fever on September 21, none since. ; Denies chills Eyes Eyes: Denies change in vision or discharge from eye(s) ENT ENT ED: Denies discharge from eye(s), rhinorrhea or sore throat Cardiovascular Cardiovascular: Reports chest pain; Denies palpitations Respiratory/Chest Respiratory/Chest: Reports cough and dyspnea; Denies sputum Gastrointestinal Gastrointestinal: Denies abdominal pain, diarrhea, nausea or vomiting Genitourinary Genitourinary ED: Denies dysuria Musculoskeletal Musculoskeletal: Denies back pain or extremity pain Integumentary Denies Abrasions or rash Neurologic Neurologic: Denies headache(s) or weakness Psychiatric Psychiatric: Denies anxiety or depression Allergic/Immunologic Allergic/Immunologic ED: Denies lip swelling or urticaria EXAM Physical Exam Const Vital Signs: 09/25/22 23:35 09/25/22 23:45 09/26/22 00:10 Temperature 98.9 F Temperature Source Temporal Pulse Rate 81 87 Respiratory Rate 20 H 18 Respiratory Effort Short of Breath Blood Pressure 165/105 H Blood Pressure Mean 125 Pulse Ox 99 Oxygen Delivery Method Room Air 09/26/22 01:10 09/26/22 02:20 Temperature Temperature Source Pulse Rate 113 H 95 Respiratory Rate 19 H 19 H Respiratory Effort Blood Pressure 142/96 H 151/96 H Blood Pressure Mean 111 114 Pulse Ox 92 93 Oxygen Delivery Method Room Air Room Air Positive well nourished and well developed General Appearance ED: well developed HEENT Reports normocephalic and head/scalp atraumatic Eyes PERRL and EOMs intact bilaterally Neck supple Chest Wall inspection of chest normal and palpation of chest normal Resp normal respiratory effort Resp Narrative: Expiratory wheezes bilaterally. Cardio regular rate and regular rhythm GI normal to inspection, nondistended, normoactive bowel sounds Palpation: soft Back/Spine no CVA tenderness Extremity normal to inspection Neuro oriented x3 and no sensory deficits noted Sensorium / Orientation: alert Motor Exam: strength 5/5 throughout Psych mental status grossly normal Skin no rashes or lesions noted MDM MDM MDM Narrative Medical decision making narrative: Patient was given DuoNeb treatment and 2 albuterol aerosols. She declined prednisone. Lab work obtained along with EKG and chest x-ray. Lab Data Attestation: I reviewed the patient's lab results. Labs: Laboratory Results - last 24 hr 09/26/22 09/26/22 09/26/22 01:47 01:47 01:47 WBC 4.0 L RBC 4.69 Hgb 13.7 Hct 41.3 MCV 88.1 MCH 29.2 MCHC 33.2 RDW Std Deviation 42.6 RDW Coeff of Shazia 13.2 Plt Count 144 L MPV 10.6 Immature Gran % (Auto) 0.800 Neut % (Auto) 75.8 H Lymph % (Auto) 15.3 L [place] % (Auto) 7.8 Eos % (Auto) 0.0 Baso % (Auto) 0.3 Absolute Neuts (auto) 3.0 Absolute Lymphs (auto) 0.61 L Nucleated RBC % 0 D-Dimer Quant (PE/DVT) 0.60 H* Sodium 135 L Potassium 3.0 L Chloride 101 Carbon Dioxide 28.0 Anion Gap 6 BUN 6 L Creatinine 0.61 Estim Creat Clear Calc 97.36 Est GFR (MDRD) Af Amer 136 Est GFR (MDRD) Non-Af 112 BUN/Creatinine Ratio 9.8 L Glucose 172 H Calcium 8.5 Radiography Chest X-Ray - ED: 2 View, Read by ED Physician, Normal, Heart, Lungs and Mediastinum Diagnostic Testing: Clinical Impression(s) from Imaging Studies Chest X-Ray 09/26/22 00:00 IMPRESSION: Possible early left lower lobe pneumonia. Electronically Signed: Kyleigh Albarado MD at 1:15 EST , Chest CTA 09/26/22 02:34 IMPRESSION: No demonstrated pulmonary embolism or arterial dissection. Ill-defined subpleural groundglass opacities are seen more prominent in the lung bases , may represent atypical pneumonia or viral pneumonia (COVID-19 ?). Electronically Signed: Kyleigh Albarado MD at 4:11 EST , EKG Initial EKG: Attestation: I personally reviewed and interpreted this EKG as follows: Interpretation: Sinus Rhythm (Sinus at 79 with no acute ischemia.) Treatment and Re-Evaluation Narrative: CBC reveals leukopenia with a white count of 4.0. Hemoglobin is 13.7. Chemistry studies reveal sodium slightly low at 135 and a potassium low at 3.0. Two-view chest x-ray per my interpretation shows no obvious infiltrate. Radiology has concern for possible early left lower lobe pneumonia. EKG reveals no ischemia. Following aerosol treatments lung sounds are clear with good air movement. Oral potassium was given. Patient sent for CTA of the chest. CTA of the chest reveals no evidence of PE or dissection. Ill-defined subpleural groundglass opacities are noted at the lung bases which may represent atypical pneumonia or viral pneumonia. Patient did have a recent test for COVID and influenza that was negative. She will be treated with doxycycline for atypical pneumonia. I will write her for 3 additional days of potassium replacement and also write for another albuterol inhaler. Return instructions have been given. Patient is comfortable with the plan. Discharge Plan Triage Chief Complaint: Shortness of Breath ED Provider: Monique Polanco Dx/Rx/DC Orders Clinical Impression: Bronchitis Instructions: ED Bronchitis with Wheezing (Adult) Prescriptions: New doxycycline monohydrate 100 mg capsule 100 mg PO BID Qty: 20 0RF albuterol sulfate [Ventolin HFA] 90 mcg/actuation HFA aerosol inhaler 2 puff inhalation Q4H PRN PRN (Reason: Wheezing) Qty: 1 0RF potassium chloride 20 mEq tablet extended release 20 meq PO BID Qty: 6 0RF No Action metoprolol tartrate 50 MG tablet 50 mg PO BID Label Comments: BP/HEART MEDICATION simvastatin 10 tablet 10 mg PO DAILY omeprazole 20 MG tablet,delayed release (DR/EC) 20 mg PO DAILY albuterol sulfate 1 PUFF inhaler 2 puff INHALATION Q6H PRN (Reason: Sob &/Or Wheezing) Label Comments: Inhale 2 Puffs as instructed every 6 hours as needed. fluticasone propionate 1 SPRAY spray,suspension 2 spray NASAL DAILY Primary Care Provider: Jaguar Cook Referrals: Jaguar Cook, PA [Primary Care Provider] - 1-2 Weeks Disposition Disposition: Home, Self Care
[2022-09-26 00:10] VITALS: PULSE 87; RESP 18
[2022-09-26 01:10] VITALS: BP 142/96; PULSE 113; RESP 19; O2SAT 92
[2022-09-26] MEDS: 0.9% Normal Saline 1,000 ML 999 ML IV (01:46)
[2022-09-26 01:59] LABS: Absolute Lymphocyte Count 0.61 X10^3/uL (0.83-4.51); Basophil# 0.01 X10^3/uL; Basophil% 0.3 % (0-1); Hematocrit 41.3 % (37-47); Hemoglobin 13.7 g/dL (12.0-15.0); Lymphocyte # 0.61 X10^3/ul (0.83-4.51); Lymphocyte % 15.3 % (19-41); Mean Corp Hgb Conc 33.2 g/dL (32-36); Mean Corpuscular Hgb 29.2 pg (27.0-32.0); Mean Corpuscular Volume 88.1 fL (81-99); Mean Platelet Vol. 10.6 fl (6.2-12.0); Monocyte# 0.31 X10^3/uL; Monocyte% 7.8 % (0-10); NRBC Flagged by Analyzer 0 % (0-5); Neutrophil # 3.03 X10^3/uL (2.7-7.7); Neutrophil % 75.8 % (47-70); Platelet Count 144 K/mm3 (150-450); RBC Distribution Width CV 13.2 % (11.6-14.6); RBC Distribution Width SD 42.6 fl (35.1-43.9); Red Blood Count 4.69 M/mm3 (4.2-5.4)
[2022-09-26 02:07] LABS: Anion Gap 6 (5-15); BUN 6 mg/dL (7-18); BUN/Creat Ratio 9.8 RATIO (10-20); Calcium,Total 8.5 mg/dL (8.5-10.1); Chloride 101 mmol/L (98-107); Creatinine, Serum 0.61 mg/dL (0.55-1.02); EST Glomerular Filtration Rate 112 mL/min (>60); Est Glom Filt Rate - Afr Amer 136 mL/min (>60); Estimated Creatinine Clearance 97.36 ml/min; Glucose 172 mg/dL (74-106); Sodium Level 135 mmol/L (136-145)
[2022-09-26 02:20] VITALS: BP 151/96; PULSE 95; RESP 19; O2SAT 93
--- NOTE | 2022-09-26 02:34 | CT_ITS ---
STUDY: CTA CHEST REASON FOR EXAM: Female, 46 years old. sob RADIATION DOSAGE (If Supplied By Facility): CTDIvol = ( 13.31 ) mGy, DLP = ( 481.69 ) mGycm TECHNIQUE: The examination was performed with the intravenous administration of IV 100mL Isovue-370. Post-processing of the angiographic images was performed, with multiplanar reformation and 3D reconstruction. Individualized dose optimization techniques were used for this CT. COMPARISON: None. FINDINGS: Normal enhancement of the main pulmonary artery and right and left pulmonary arteries. Normal enhancement of the bilateral peripheral pulmonary arteries. There is no demonstrated pulmonary embolism. Normal thoracic aorta and visualized great vessels. There is no demonstrated aortic dissection. Normal heart and pericardium. Normal mediastinum. Normal hilar regions. Normal visualized trachea and bronchi. The lungs are well expanded. Ill-defined subpleural groundglass opacities are seen more prominent in the lung bases , may represent atypical pneumonia or viral pneumonia (COVID-19 ?). Normal pleura. Normal chest wall structures. Normal osseous structures. Normal visualized upper abdomen. CT/CTA Chest W/WO Contrast IMPRESSION: No demonstrated pulmonary embolism or arterial dissection. Ill-defined subpleural groundglass opacities are seen more prominent in the lung bases , may represent atypical pneumonia or viral pneumonia (COVID-19 ?). Electronically Signed: Kyleigh Albarado MD at 4:11 [facility] ,
[2022-09-26] MEDS: Potassium Chloride Oral Tablet 20 MEQ 40 MEQ PO (02:40)
[2022-09-26] MEDS: Doxycycline 100 MG CAPSULE PO (04:23)
[2022-09-26 04:27] VITALS: BP 150/99; PULSE 112; RESP 19; O2SAT 98
== END 2022-09-26 04:30 | disposition home or self-care (01) ==
PROVIDERS: Emergency Provider Emergency Medicine; PCP Physician Assistant; Visit Provider Emergency Medicine
DX: J40 Bronchitis, not specified as acute or chronic (principal)
CPT/HCPCS: 71046; 71275; 80048; 85025; 85379; 93005; 94640; 99285; Q9967

== ENCOUNTER 2022-10-15 09:26 | Emergency (ER) | payer MEDICAID, SELFPAY ==
[2022-10-15 09:27] VITALS: BP 204/120; PULSE 86; RESP 16; TEMP 35.8; O2SAT 99; BMI 30.1
--- NOTE | 2022-10-15 09:34 | RAD_ITS ---
INDICATION: Injury/Pain EXAMINATION/TECHNIQUE: X-RAY - RIGHT XR Hip Unilateral with Pelvis when performed; 3 VIEWS COMPARISON: August 20, 2019 FINDINGS: SOFT TISSUES: There is an intrauterine device in place within the expected region of the uterus. There are tubal ligation clips. No radiopaque foreign body. BONES/JOINTS: No acute fracture or subluxation.. Normal alignment. Preservation of the joint space.. No sclerotic or destructive changes observed. RAD/HIP, UNI W/ Pelvis 2-3 Views IMPRESSION: Stable examination demonstrating no acute osseous injury. Electronically Signed: Tatiana Olson MD at 10:47 EST ,
--- NOTE | 2022-10-15 09:42 | ED.VIS.LOWEX ---
HPI History of Present Illness Chief Complaint: Other, Pain/Inj Detail of Chief Complaint: Atraumatic right hip pain. Informant: patient Occured/Mechanism Comment: Patient states she was getting ready for bed and developed acute right hip pain. She points to the right inguinal area and right greater trochanteric region. Onset/Context/Timing Onset: Yesterday (2299) Context: Sudden Onset Timing: Continuous Quality of Pain: - (Pain) Location: Right hip Current Severity: Mild Maximum Severity: Moderate Worsened by: Movement, weightbearing Relieved by: Nothing Associated Symptoms Associated Symptoms: Negative for Parasthesia, Weakness or Loss of Funtion Narrative Narrative: Patient is a 46-year-old woman with past medical history of hypertension, hyperlipidemia and pulmonary disease who presents with atraumatic right hip pain that started last evening while she was going to bed. Pain is been continuous. There is no radiation of the pain. She denies fever, chills night sweats. She denies history of gout or pseudogout. She denies past history of steroid use. There is no history of trauma recent or remote. Patient denies bowel bladder dysfunction. Patient denies saddle paresthesia or anesthesia. Patient denies pain in a radicular pattern. She did mention dropped right small toe pain. She denies symptoms of claudication. She denies history of DVT. She denies leg swelling or discoloration. Patient was asked if she has diabetes since multiple prior labs indicate elevated blood sugar. She states there is a family history. She does have symptoms. She specifically complains of polydipsia and polyuria. She states she always feels thirsty. Patient does have history of sciatica. Patient was informed her presentation is not consistent with sciatic pain. Patient was informed that her blood pressure is elevated. She states her pressure is not normally this high. Tetanus Immunization: >10 years Prior similar symptoms: No Recent Illness/Hospitalization: No [facility] Medical History Encounter for screening for COVID-19 History of hypercholesterolemia Hypertension Home Medications metoprolol tartrate 50 mg tablet 50 mg PO BID 09/11/13 [History Last Taken 11/18/20] simvastatin 10 mg tablet 10 mg PO DAILY 01/21/19 [History Last Taken 11/18/20] albuterol sulfate 90 mcg/actuation aerosol inhaler 2 puff inhalation Q6H PRN Sob &/Or Wheezing 11/18/20 [History Last Taken 11/18/20] fluticasone propionate 50 mcg/actuation nasal spray,suspension 2 spray NASAL DAILY ALLERGIES 11/18/20 [History Last Taken 11/18/20] omeprazole 20 mg tablet,delayed release 20 mg PO DAILY 11/18/20 [History Last Taken 11/18/20] albuterol sulfate 90 mcg/actuation aerosol inhaler (Ventolin HFA) 2 puff inhalation Q4H PRN PRN Wheezing ##1 09/26/22 [Rx Last Taken Unknown] doxycycline monohydrate 100 mg capsule 100 mg PO BID #20 caps 09/26/22 [Rx Last Taken Unknown] potassium chloride 20 mEq tablet,extended release 20 meq PO BID #6 tabs 09/26/22 [Rx Last Taken Unknown] naproxen 500 mg tablet 500 mg PO BID #14 tabs 10/15/22 [Rx Last Taken Unknown] Allergy/AdvReac Type Severity Reaction Status Date / Time No Known Allergies Allergy Verified 10/15/22 09:29 Family History Other CAD (coronary artery disease) Surgical History Hx of cholecystectomy Hx of tubal ligation Social History household members: none Smoking Status: Never smoker substance use type: does not use ROS ROS ED Constitutional Constitutional ED: Denies chills, fever(s), subjective, sweats or weight loss Eyes Eyes: Denies blurry vision or change in vision ENT ENT ED: Denies ear pain, rhinorrhea or sore throat Cardiovascular Cardiovascular: Denies chest pain, palpitations or racing heartbeat Respiratory/Chest Respiratory/Chest: Denies cough, dyspnea or dyspnea on exertion Gastrointestinal Gastrointestinal: Denies abdominal pain, nausea or vomiting Genitourinary Genitourinary ED: Denies dysuria, hematuria or urinary frequency Musculoskeletal Musculoskeletal: Reports other Details: Per HPI narrative ; Denies arthralgias, back pain, myalgias or neck pain Integumentary Denies rash Neurologic Neurologic: Denies paresthesias or weakness Psychiatric Psychiatric: Reports anxiety EXAM Physical Exam Const Vital Signs: 10/15/22 09:27 Temperature 96.5 F L Temperature Source Temporal Pulse Rate 86 Respiratory Rate 16 Blood Pressure 204/120 H Blood Pressure Mean 148 Pulse Ox 99 Oxygen Delivery Method Room Air Positive well nourished and well developed Constitutional Narrative: Patient does seem slightly anxious. General Appearance ED: well developed and NAD HEENT Reports moist mucous membranes HEENT Narrative: Ears normal. Nares patent. Posterior pharynx is normal. normocephalic and atraumatic Eyes Eyes Narrative: Pupils equal round reactive. Extract muscle intact. Sclera is anicteric. Neck full ROM Neck Narrative: There is no JVD. Trachea is midline. Resp normal respiratory effort, no retractions and clear to auscultation bilaterally Cardio regular rate, regular rhythm, S1 normal heart sound, S2 normal heart sound and no murmurs GI non-tender, non-distended and no masses GI Narrative: There is no evidence of inguinal hernia. There is no inguinal mass. Femoral pulses palpable. Auscultation: normoactive bowel sounds Palpation: soft Back/Spine no CVA tenderness Lumbar Spine / Lower Back: straight leg raise negative bilaterally; Negative for lumbar spinal tenderness Extremity normal to inspection and full ROM Extremity Narrative: Patient complains of pain in the right inguinal area with logrolling of the right lower extremity. Full flexion extension at the knee and ankle. Pain with flexion extension of the hip. There is also pain ovation over the right greater trochanteric region. There is minimal discomfort over the right ischial tuberosity. There is no pain ovation over the right iliac wing or lumbar sacral region. General Extremety ED: Yes weight-bearing difficulty General Extremity: weight-bearing difficulty Neuro oriented x3, CN's II-XII intact bilaterally, moves all extremities and no sensory deficits noted Neuro Narrative: EHLs intact bilaterally. 5/5 strength with plantar and dorsiflexion of the foot. Normal sensation over L4, L5, S1 dermatome. She reported diminished sensation L3 dermatome on the right. Sensorium / Orientation: alert Motor Exam: strength 5/5 throughout Deep Tendon Reflexes: Rt Patellar (L4): 2+, Lt Patellar (L4): 2+, Rt Ankle (S1): 2+ and Lt Ankle (S1): 2+ Deep Tendon Reflexes Back: Rt Patellar (L4): 2+, Lt Patellar (L4): 2+, Rt Ankle (S1): 2+ and Lt Ankle (S1): 2+ Plantar Reflex: Downgoing: bilateral (There is no clonus.) Psych mental status grossly normal Skin no wounds Lesions: no lesions Rashes: no rashes MDM MDM MDM Narrative Medical decision making narrative: With atraumatic right hip pain need to assess for possible crystal induced versus pyogenic arthritis, which is unlikely and doubtful. Concerned this may represent osteoarthritis. With no history of steroid use doubt avascular necrosis of the femoral head. Since patient does endorse symptoms consistent with diabetes will obtain BMP to assess glucose and CO2 anion gap. CBC was obtained as well as inflammatory markers to evaluate patient's atraumatic monoarticular arthritis. X-ray was obtained as well. Since patient has normal renal function she was treated with IV Toradol. Patient was informed that her presentation is not consistent with sciatica. Suspect patient's blood pressure is elevated due to pain. If her blood pressure does not improve with pain medicine will address. Patient was reassessed at 10/01/2000. She is asleep. She had to be awakened from sleep. Her pain is much improved. Blood pressure is improved. Patient was informed that her blood sugar is elevated and will need to follow-up with her PCP for further evaluation and possible treatment. She has seen Dr. Jonah Soriano in the past. She was referred to Dr. Jonah smith for her right hip pain. Since there is no evidence of renal dysfunction patient was treated with NSAIDs for her hip pain. Lab Data Attestation: I reviewed the patient's lab results. Lab results narrative: CBC and differential are unremarkable. Patient is not anemic. Basic metabolic panel does reveal elevated glucose of 171. CO2 and anion gap are normal. This would indicate patient has new onset diabetes. C-reactive protein is elevated 7.1. ESR is pending. ESR is normal. Labs: Laboratory Results - last 24 hr 10/15/22 10/15/22 10:05 10:05 WBC 7.0 RBC 4.51 Hgb 13.4 Hct 40.8 MCV 90.5 MCH 29.7 MCHC 32.8 RDW Std Deviation 45.0 H RDW Coeff of Shazia 13.6 Plt Count 244 MPV 9.8 Immature Gran % (Auto) 0.400 Neut % (Auto) 70.2 H Lymph % (Auto) 20.2 [place] % (Auto) 6.2 Eos % (Auto) 2.4 Baso % (Auto) 0.6 Absolute Neuts (auto) 4.9 Absolute Lymphs (auto) 1.41 Nucleated RBC % 0 ESR 18 Sodium 138 Potassium 3.7 Chloride 106 Carbon Dioxide 23.0 Anion Gap 9 BUN 14 Creatinine 0.70 Estim Creat Clear Calc 84.84 Est GFR (MDRD) Af Amer 117 Est GFR (MDRD) Non-Af 97 BUN/Creatinine Ratio 20.1 H Glucose 171 H Calcium 8.3 L C-React Prot Ext Range 7.11 H Radiography X-Ray: Read by ED Physician (The x-ray was independently reviewed and interpreted by wi at 1043.) and - (3 view x-ray of the right hip was obtained. There is no acute pathology. The pelvic portion was compared to prior x-ray for left hip in 2019. There is an IUD in place. There is metallic material noted consistent with tubal ligation.) Diagnostic Testing: Clinical Impression(s) from Imaging Studies Hip/Pelvis X-Ray 10/15/22 09:34 IMPRESSION: Stable examination demonstrating no acute osseous injury. Electronically Signed: Tatiana Olson MD at 10:47 EST , Discharge Plan Triage Chief Complaint: Other, Pain/Inj ED Provider: Zechariah Barrera Dx/Rx/DC Orders Clinical Impression: Acute pain of right hip, Hypertension, Anxiety, History of hypercholesterolemia, Hyperglycemia Instructions: OA Hip, ED Hypertension, Established, ED Hyperglycemia New Susp Diabetes Prescriptions: New naproxen 500 mg tablet 500 mg PO BID Qty: 14 0RF No Action metoprolol tartrate 50 MG tablet 50 mg PO BID Label Comments: BP/HEART MEDICATION simvastatin 10 tablet 10 mg PO DAILY omeprazole 20 MG tablet,delayed release (DR/EC) 20 mg PO DAILY albuterol sulfate 1 PUFF inhaler 2 puff INHALATION Q6H PRN (Reason: Sob &/Or Wheezing) Label Comments: Inhale 2 Puffs as instructed every 6 hours as needed. fluticasone propionate 1 SPRAY spray,suspension 2 spray NASAL DAILY doxycycline monohydrate 100 mg capsule 100 mg PO BID Qty: 20 0RF albuterol sulfate [Ventolin HFA] 90 mcg/actuation HFA aerosol inhaler 2 puff inhalation Q4H PRN PRN (Reason: Wheezing) Qty: 1 0RF potassium chloride 20 mEq tablet extended release 20 meq PO BID Qty: 6 0RF Primary Care Provider: Jaguar Cook Referrals: Jonah Soriano MD [Non-Staff] - 1 Week Jaguar Cook PA [Primary Care Provider] - 1-2 Weeks Disposition Disposition: Home, Self Care
[2022-10-15 10:13] LABS: Absolute Lymphocyte Count 1.41 X10^3/uL (0.83-4.51); Absolute Neutrophil Count 4.9 X10^3/uL (2.0-7.7); Basophil# 0.04 X10^3/uL; Basophil% 0.6 % (0-1); Eosinophil# 0.17 X10^3/uL; Eosinophils% 2.4 % (0-5); Hematocrit 40.8 % (37-47); Hemoglobin 13.4 g/dL (12.0-15.0); Lymphocyte # 1.41 X10^3/ul (0.83-4.51); Lymphocyte % 20.2 % (19-41); Mean Corp Hgb Conc 32.8 g/dL (32-36); Mean Corpuscular Hgb 29.7 pg (27.0-32.0); Mean Corpuscular Volume 90.5 fL (81-99); Mean Platelet Vol. 9.8 fl (6.2-12.0); Monocyte# 0.43 X10^3/uL; Monocyte% 6.2 % (0-10); NRBC Flagged by Analyzer 0 % (0-5); Neutrophil % 70.2 % (47-70); Platelet Count 244 K/mm3 (150-450); RBC Distribution Width CV 13.6 % (11.6-14.6); Red Blood Count 4.51 M/mm3 (4.2-5.4)
[2022-10-15 10:27] LABS: Anion Gap 9 (5-15); BUN 14 mg/dL (7-18); BUN/Creat Ratio 20.1 RATIO (10-20); CRP 7.11 mg/L (0.0-3.0); Calcium,Total 8.3 mg/dL (8.5-10.1); Chloride 106 mmol/L (98-107); EST Glomerular Filtration Rate 97 mL/min (>60); Est Glom Filt Rate - Afr Amer 117 mL/min (>60); Estimated Creatinine Clearance 84.84 ml/min; Glucose 171 mg/dL (74-106); Potassium 3.7 mmol/L (3.5-5.1); Sodium Level 138 mmol/L (136-145)
[2022-10-15] MEDS: Ketorolac 15 MG/ML Vial IV (10:29)
[2022-10-15 10:38] LABS: Erythrocyte Sedimentation Rate 18 mm/hr (0-30)
== END 2022-10-15 11:29 | disposition home or self-care (01) ==
PROVIDERS: Emergency Provider Emergency Medicine; PCP Physician Assistant; Visit Provider Emergency Medicine
DX: M25.551 Pain in right hip (principal); I10 Essential (primary) hypertension; F41.9 Anxiety disorder, unspecified; R73.9 Hyperglycemia, unspecified
CPT/HCPCS: 73502; 80048; 85025; 85652; 86140; 96374; 99283; A4216

== ENCOUNTER 2023-02-15 11:04 | Emergency (ER) | payer MEDICAID, SELFPAY ==
[2023-02-15 11:05] VITALS: BP 148/95; PULSE 63; RESP 16; TEMP 35.9; O2SAT 100
[2023-02-15 11:07] VITALS: BMI 30.9
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
[2023-02-15] MEDS: Ondansetron ODT 4 MG Tablet 8 MG PO (12:20)
[2023-02-15] MEDS: Naproxen 250 MG Tablet 500 MG PO (12:20)
== END 2023-02-15 12:22 | disposition home or self-care (01) ==
PROVIDERS: Emergency Provider Emergency Medicine; PCP Physician Assistant; Visit Provider Emergency Medicine
DX: S09.90XA Unspecified injury of head, initial encounter (principal); S16.1XXA Strain of muscle, fascia and tendon at neck level, initial encounter; S39.012A Strain of muscle, fascia and tendon of lower back, initial encounter; S20.20XA Contusion of thorax, unspecified, initial encounter; V49.40XA Driver injured in collision with unspecified motor vehicles in traffic accident, initial encounter
CPT/HCPCS: 70450; 71046; 72125; 99285

== ENCOUNTER 2023-03-05 06:31 | Emergency (ER) | payer MEDICAID, SELFPAY ==
[2023-03-05 06:33] VITALS: BP 181/126; PULSE 63; RESP 16; TEMP 36.1; O2SAT 97; BMI 30.6
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
[2023-03-05 07:07] VITALS: BP 181/97
== END 2023-03-05 07:07 | disposition home or self-care (01) ==
PROVIDERS: Emergency Provider Emergency Medicine; PCP Physician Assistant; Visit Provider Emergency Medicine
DX: H10.13 Acute atopic conjunctivitis, bilateral (principal); I10 Essential (primary) hypertension; E78.00 Pure hypercholesterolemia, unspecified; Z79.899 Other long term (current) drug therapy; Z90.49 Acquired absence of other specified parts of digestive tract
CPT/HCPCS: 99282

== ENCOUNTER 2023-03-17 12:19 | Emergency (ER) | payer MEDICAID, SELFPAY ==
[2023-03-17 12:20] VITALS: BP 165/105; PULSE 79; RESP 18; TEMP 35.8; O2SAT 99; BMI 30.1
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
== END 2023-03-17 13:48 | disposition home or self-care (01) ==
PROVIDERS: Emergency Provider Emergency Medicine; PCP Physician Assistant; Visit Provider Emergency Medicine
DX: S09.90XA Unspecified injury of head, initial encounter (principal); I10 Essential (primary) hypertension; E78.00 Pure hypercholesterolemia, unspecified; Z79.899 Other long term (current) drug therapy; Y04.8XXA Assault by other bodily force, initial encounter
CPT/HCPCS: 99282

== ENCOUNTER 2023-03-31 17:40 | Emergency (ER) | payer MEDICAID, SELFPAY ==
[2023-03-31 17:41] VITALS: BP 148/106; PULSE 77; RESP 16; TEMP 36.6; O2SAT 97; BMI 30.8
--- NOTE | 2023-03-31 18:10 | EDS_ITS ---
HPI History of Present Illness Chief Complaint: Wound Check Detail of Chief Complaint: Puncture wound right foot Informant: patient Onset/Context/Timing Onset: Today Narrative Narrative: Patient presents with a puncture wound to her right foot. She states she stepped on a navin nail that went through her shoe and into her foot. She is unsure of her last tetanus update and really does want a tetanus shot. [facility] Medical History Anxiety History of hypercholesterolemia Hypertension Panic attacks Home Medications metoprolol tartrate 50 mg tablet 50 mg PO BID 09/11/13 [History Last Taken 11/18/20] simvastatin 10 mg tablet 10 mg PO DAILY 01/21/19 [History Last Taken 11/18/20] albuterol sulfate 90 mcg/actuation aerosol inhaler 2 puff inhalation Q6H PRN Sob &/Or Wheezing 11/18/20 [History Last Taken 11/18/20] fluticasone propionate 50 mcg/actuation nasal spray,suspension 2 spray NASAL DAILY ALLERGIES 11/18/20 [History Last Taken 11/18/20] omeprazole 20 mg tablet,delayed release 20 mg PO DAILY 11/18/20 [History Last Taken 11/18/20] albuterol sulfate 90 mcg/actuation aerosol inhaler (Ventolin HFA) 2 puff inhalation Q4H PRN PRN Wheezing ##1 09/26/22 [Rx Last Taken Unknown] Prednisolone ophthalmic 1 drp EACH EYE 4XD #5 mL 03/05/23 [Rx Last Taken Unknown] ciprofloxacin HCl 500 mg tablet (Cipro) 500 mg PO BID #14 tabs 03/31/23 [Rx Last Taken Unknown] doxycycline monohydrate 100 mg capsule 100 mg PO BID #14 CAPSULES 03/31/23 [Rx Last Taken Unknown] Allergy/AdvReac Type Severity Reaction Status Date / Time No Known Allergies Allergy Verified 03/31/23 17:44 Family History Other CAD (coronary artery disease) Surgical History Hx of cholecystectomy Hx of tubal ligation Social History household members: none Smoking Status: Never smoker substance use type: does not use ROS ROS ED Constitutional Constitutional ED: Denies chills or fever(s) Eyes Eyes: Denies discharge from eye(s) ENT ENT ED: Denies discharge from eye(s) or sore throat Cardiovascular Cardiovascular: Denies chest pain Respiratory/Chest Respiratory/Chest: Denies cough or dyspnea Gastrointestinal Gastrointestinal: Denies abdominal pain, nausea or vomiting Musculoskeletal Musculoskeletal: Reports extremity pain; Denies back pain Integumentary Reports other Details: Puncture wound ; Denies Abrasions or rash Neurologic Neurologic: Denies headache(s) or weakness Psychiatric Psychiatric: Denies anxiety or depression Allergic/Immunologic Allergic/Immunologic ED: Denies lip swelling or urticaria EXAM Physical Exam Const Vital Signs: 03/31/23 17:41 Temperature 97.9 F Temperature Source Temporal Pulse Rate 77 Respiratory Rate 16 Blood Pressure 148/106 H Blood Pressure Mean 120 Pulse Ox 97 Oxygen Delivery Method Room Air Positive well nourished and well developed General Appearance ED: well developed HEENT Reports moist mucous membranes Eyes PERRL and EOMs intact bilaterally Chest Wall inspection of chest normal and palpation of chest normal Resp normal respiratory effort and clear to auscultation bilaterally Cardio regular rate and regular rhythm GI non-tender Palpation: soft Extremity Extremity Narrative: Single puncture wound to the plantar surface of the right foot just posterior to the space between the second and third metatarsal heads. Psych mental status grossly normal Skin Skin Narrative: Puncture wound as noted above. MDM MDM MDM Narrative Medical decision making narrative: Patient does have a puncture wound to the plantar surface of her right foot. Tetanus update will be provided. Given that she had a navin nail that went through her shoe and into her foot she will be covered with antibiotics. Discharge Plan Triage Chief Complaint: Wound Check ED Provider: Monique Polanco Dx/Rx/DC Orders Clinical Impression: Puncture wound of foot, right Instructions: ED Puncture Wound (Foot) Prescriptions: New ciprofloxacin HCl [Cipro] 500 mg tablet 500 mg PO BID Qty: 14 0RF doxycycline monohydrate 100 mg capsule 100 mg PO BID Qty: 14 0RF No Action metoprolol tartrate 50 MG tablet 50 mg PO BID Patient Comments: BP/HEART MEDICATION simvastatin 10 tablet 10 mg PO DAILY omeprazole 20 MG tablet,delayed release (DR/EC) 20 mg PO DAILY albuterol sulfate 1 PUFF inhaler 2 puff INHALATION Q6H PRN (Reason: Sob &/Or Wheezing) Patient Comments: Inhale 2 Puffs as instructed every 6 hours as needed. fluticasone propionate 1 SPRAY spray,suspension 2 spray NASAL DAILY albuterol sulfate [Ventolin HFA] 90 mcg/actuation HFA aerosol inhaler 2 puff inhalation Q4H PRN PRN (Reason: Wheezing) Qty: 1 0RF Prednisolone ophthalmic 1 drp EACH EYE 4XD Qty: 5 0RF Rx Instructions: 1% solution Primary Care Provider: Jaguar Cook Referrals: Jaguar Cook PA [Primary Care Provider] - As Needed Disposition Disposition: Home, Self Care
[2023-03-31] MEDS: Diphth,Pertuss(Acell),Tet Vac 0.5 ML Vial IM (18:22)
== END 2023-03-31 18:33 | disposition home or self-care (01) ==
LOC: ED 18:32
PROVIDERS: Emergency Provider Emergency Medicine; PCP Physician Assistant; Visit Provider Emergency Medicine
DX: S91.331A Puncture wound without foreign body, right foot, initial encounter (principal); E78.00 Pure hypercholesterolemia, unspecified; I10 Essential (primary) hypertension; Z79.899 Other long term (current) drug therapy; Z23 Encounter for immunization; X58.XXXA Exposure to other specified factors, initial encounter
CPT/HCPCS: 90471; 90715; 99282

== ENCOUNTER 2023-10-13 17:40 | Emergency (ER) | payer MEDICAID, SELFPAY ==
[2023-10-13 17:41] VITALS: BP 151/108; PULSE 68; RESP 15; TEMP 36.1; O2SAT 95; BMI 29.4
--- NOTE | 2023-10-13 17:57 | ED.VIS.FEGU ---
HPI HPI - Female History of Present Illness Chief Complaint: Female C/O Informant: patient Narrative Narrative: Patient states she started having sexual intercourse with someone new and developed vaginal discharge and itching. She was tested somewhere and diagnosed with both candidal infection and trichomoniasis. She was given a prescription for a pill of Diflucan and a week of twice daily Flagyl. She states she finished that about a week ago, and the discharge is resolved but she still has pruritus. She presents here Sunday evening requesting retesting. She is having some diarrhea as well but it is not aggressive. She denies any abdominal pain or fever/chills. [facility] Medical History Anxiety History of hypercholesterolemia Hypertension Panic attacks Home Medications metoprolol tartrate 50 mg tablet 50 mg PO BID 09/11/13 [History Last Taken 11/18/20] simvastatin 10 mg tablet 10 mg PO DAILY 01/21/19 [History Last Taken 11/18/20] albuterol sulfate 90 mcg/actuation aerosol inhaler 2 puff inhalation Q6H PRN Sob &/Or Wheezing 11/18/20 [History Last Taken 11/18/20] fluticasone propionate 50 mcg/actuation nasal spray,suspension 2 spray NASAL DAILY ALLERGIES 11/18/20 [History Last Taken 11/18/20] omeprazole 20 mg tablet,delayed release 20 mg PO DAILY 11/18/20 [History Last Taken 11/18/20] albuterol sulfate 90 mcg/actuation aerosol inhaler (Ventolin HFA) 2 puff inhalation Q4H PRN PRN Wheezing ##1 09/26/22 [Rx Last Taken Unknown] Prednisolone ophthalmic 1 drp EACH EYE 4XD #5 mL 03/05/23 [Rx Last Taken Unknown] ciprofloxacin HCl 500 mg tablet (Cipro) 500 mg PO BID #14 tabs 03/31/23 [Rx Last Taken Unknown] doxycycline monohydrate 100 mg capsule 100 mg PO BID #14 CAPSULES 03/31/23 [Rx Last Taken Unknown] Allergy/AdvReac Type Severity Reaction Status Date / Time No Known Allergies Allergy Verified 10/13/23 17:45 Family History Other CAD (coronary artery disease) Surgical History Hx of cholecystectomy Hx of tubal ligation Social History household members: none Smoking Status: Never smoker substance use type: does not use ROS ROS ED Constitutional Constitutional ED: Denies chills or fever(s) Cardiovascular Cardiovascular: Denies chest pain or palpitations Respiratory/Chest Respiratory/Chest: Denies cough or dyspnea Gastrointestinal Gastrointestinal: Reports diarrhea; Denies abdominal pain, nausea or vomiting Genitourinary Genitourinary ED: Reports as per HPI and itching; Denies dysuria or hematuria Integumentary Denies rash Neurologic Neurologic: Denies headache(s), paresthesias or weakness EXAM Physical Exam Const Vital Signs: 10/13/23 17:41 Temperature 97.0 F L Temperature Source Temporal Pulse Rate 68 Respiratory Rate 15 Blood Pressure 151/108 H Blood Pressure Mean 122 Pulse Ox 95 Oxygen Delivery Method Room Air Positive well nourished and well developed General Appearance ED: well developed and NAD HEENT Reports moist mucous membranes Resp normal respiratory effort GI normal to inspection, nondistended, normoactive bowel sounds, soft to palpation, non-tender and non-distended Extremity normal to inspection and full ROM Neuro oriented x3, CN's II-XII intact bilaterally and no sensory deficits noted Motor Exam: strength 5/5 throughout Psych mental status grossly normal Mood & Affect: anxious Skin no rashes or lesions noted and no wounds MDM MDM MDM Narrative Medical decision making narrative: Was going to do a pelvic exam simply for getting swabs as the patient is requesting, however we now have trichomonas PCR test as well as the GC and chlamydia, and it can all be obtained with a urine specimen in addition to yeast detection. Therefore this was all sent but the patient states she does not want to wait for the results and will follow-up with them with her doctor as an outpatient. Therefore she was given discharge instructions and given this without test results right now would not advise any other antibiotics or Diflucan again right now. She was advised that she can do vaginal topical treatment for her yeast if she wishes to try that. Discharge Plan Triage Chief Complaint: Female C/O ED Provider: Jonah Owens Dx/Rx/DC Orders Clinical Impression: Vaginal itching Instructions: ED TIFFANY VAGINITIS Prescriptions: No Action metoprolol tartrate 50 MG tablet 50 mg PO BID Patient Comments: BP/HEART MEDICATION simvastatin 10 tablet 10 mg PO DAILY omeprazole 20 MG tablet,delayed release (DR/EC) 20 mg PO DAILY albuterol sulfate 1 PUFF inhaler 2 puff INHALATION Q6H PRN (Reason: Sob &/Or Wheezing) Patient Comments: Inhale 2 Puffs as instructed every 6 hours as needed. fluticasone propionate 1 SPRAY spray,suspension 2 spray NASAL DAILY Hold Instructions: Order Completed albuterol sulfate [Ventolin HFA] 90 mcg/actuation HFA aerosol inhaler 2 puff inhalation Q4H PRN PRN (Reason: Wheezing) Qty: 1 0RF Prednisolone ophthalmic 1 drp EACH EYE 4XD Qty: 5 0RF Hold Instructions: Order Changed Rx Instructions: 1% solution ciprofloxacin HCl [Cipro] 500 mg tablet 500 mg PO BID Qty: 14 0RF doxycycline monohydrate 100 mg capsule 100 mg PO BID Qty: 14 0RF Primary Care Provider: Jaguar Cook Referrals: Jaguar Cook PA [Primary Care Provider] - As soon as possible (Follow-up as soon as possible to obtain and discuss lab results) Activity Restrictions/Additional Instructions: If you wish to try additional vaginal yeast infection treatment, you may use [id number] treatments such as Monistat. Disposition Disposition: Home, Self Care
--- OUTSIDE RECORDS SUMMARY | 2023-10-13 18:54 | XMS RPT_ITS | CCD ---
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 Name Role Phone Adry Uribe Unavailable Unavailable Opal Casiano Unavailable Unavailable Opal Casiano Unavailable Unavailable KARINA MEDINA Unavailable Unavailable ADAM KARINA Unavailable Unavailable KARINA MEDINA R Unavailable Unavailable KARINA MEDINA R Unavailable Unavailable Guillermo Lizama Unavailable Unavailable Jaguar Cook PA-C Primary Care Provider [phone] Jaguar Cook PA-C Primary Care Provider [phone] Jaguar Cook PA-C Primary Care Provider [phone] Jaguar Cook PA-C Primary Care Provider [phone] Jaguar COOK Primary Care Unavailable MORIAH HUTCHISON Referring Unavailable Jaguar COOK Primary Care Unavailable JONAH IBRAHIM Attending Unavailable Jaguar COOK Primary Care Unavailable [facility] Referring Unav ailable GUILLERMO LIZAMA Referring Unavailable Jaguar COOK Primary Care Unavailable GUILLERMO LIZAMA Referring Unavailable Jaguar COOK Primary Care Unavailable GUILLERMO LIZAMA Referring Unavailable Jaguar COOK Primary Care Unavailable Jaguar COOK Primary Care Unavailable Jaguar COOK Primary Care Unavailable Jaguar COOK Primary Care Unavailable Jaguar COOK Attending Unavailable Jaguar COOK Primary Care Unavailable MORIAH HUTCHISON Referring Unavailable Jaguar COOK Primary Care Unavailable Jaguar COOK Primary Care Unavailable JONAH IBRAHIM Attending Unavailable COOK, M NICOLETTE Primary Care Unavailable YEISON IGNACIO Referring Unavailable HAAGEN, JENNIFER Referring Unavailable COOK, M NICOLETTE Primary Care Unavailable O'JORDANKARINA AN Attending Unavailable HAAGEN, JENNIFER Referring Unavailable COOK, M NICOLETTE Primary Care Unavailable COOK, M NICOLETTE Referring Unavailable COOK, M NICOLETTE Primary Care Unavailable MURPHYLILIA Attending Unavailable COOK, M NICOLETTE Referring Unavailable COOK, M NICOLETTE Primary Care Unavailable MURPHYJANIAA Attending Unavailable COOK, M NICOLETTE Referring Unavailable COOK, M NICOLETTE Primary Care Unavailable LILIA MURPHY Attending Unavailable GUILLERMO LIZAMA Referring Unavailable COOK, M NICOLETTE Primary Care Unavailable BRANDONNOHELIA Attending Unavailable COOK, M NICOLETTE Primary Care Unavailable COOK, M NICOLETTE Primary Care Unavailable HAAGEN, JENNIFER Attending Unavailable COOK, M NICOLETTE Primary Care Unavailable GUILLERMO LIZAMA Attending Unavailable COOK, M NICOLETTE Primary Care Unavailable COOK, M NICOLETTE Attending Unavailable COOK, M NICOLETTE Primary Care Unavailable COOK, M NICOLETTE Referring Unavailable LILIA MURPHY Attending Unavailable COOK, M NICOLETTE Primary Care Unavailable YOHANNES MICHAEL Referring Unavailable COOK, M NICOLETTE Primary Care Unavailable COOK, M NICOLETTE Primary Care Unavailable NOHELIA TAYLOR Attending Unavailable COOK, M NICOLETTE Primary Care Unavailable HAAGEN, JENNIFER Referring Unavailable COOK, M NICOLETTE Primary Care Unavailable COOK, M NICOLETTE Referring Unavailable MURPHYLILIA MONTES Attending Unavailable COOK, M NICOLETTE Primary Care Unavailable HAAGENANGELINAY Referring Unavailable COOK, M NICOLETTE Primary Care Unavailable Bonnie'JORDANKARINA AN Attending Unavailable COOK, M NICOLETTE Referring Unavailable MURPHYJANIAA Attending Unavailable COOK, M NICOLETTE Primary Care Unavailable COOK, M NICOLETTE Attending Unavailable COOK, M NICOLETTE Primary Care Unavailable GUILLERMO LIZAMA Referring Unavailable COOK, M NICOLETTE Primary Care Unavailable NOHELIA TAYLOR Referring Unavailable COOK, M NICOLETTE Primary Care Unavailable NOHEMI KULKARNI Attending Unavailable COOK, M NICOLETTE Primary Care Unavailable JANAY LIN Attending Unavail able COOK, M NICOLETTE Primary Care Unavailable BRANDONNOHELIA Attending Unavailable COOK, M NICOLETTE Primary Care Unavailable ALLIE SANTIAGO Referring Unavailable COOK, M NICOLETTE Primary Care Unavailable BRANDON, NOHELIA Referring Unavailable COOK, M NICOLETTE Primary Care Unavailable COOK, M NICOLETTE Primary Care Unavailable BRANDON, NOHELIA Referring Unavailable COOK, M NICOLETTE Primary Care Unavailable BRANDON, NOHELIA Referring Unavailable COOK, M NICOLETTE Primary Care Unavailable COOK, M NICOLETTE Referring Unavailable COOK, M NICOLETTE Primary Care Unavailable JENNIFER WHITFIELD Referring Unavailable COOK, M NICOLETTE Primary Care Unavailable INDIGO CANDELARIO Attending Unavailable COOK, M NICOLETTE Primary Care Unavailable JENNIFER WHITFIELD Attending Unavailable COOK, M NICOLETTE Primary Care Unavailable INDIGO CANDELARIO Attending Unavailable COOK, M NICOLETTE Primary Care Unavailable COOK, M NICOLETTE Primary Care Unavailable CLARK ZALDIVAR Attending Unavailable COOK, M NICOLETTE Primary Care Unavailable INDIGO CANDELARIO Attending Unavailable COOK, M NICOLETTE Primary Care Unavailable COOK, M NICOLETTE Primary Care Unavailable COOK, M NICOLETTE Referring Unavailable COOK, M NICOLETTE Primary Care Unavailable Allergies Allergy Classification Reported Allergen(s) Allergy Type Date of Onset Reaction(s) Facility (20 sources) house dust allergenic extract; Translations: [HOUSE DUST] Drug Allergy 0 Cough [facility] (20 sources) Seasonal allergy; Translations: [SEASONAL ALLERGIES] Allergy to substance 9 Shortness of Breath [facility] (20 sources) Maple Flavor; Translations: [MAPLE FLAVOR] Drug Allergy 0 Swelling [facility] (20 sources) metroNIDAZOLE; Translations: [METRONIDAZOLE] Drug Allergy 2 GI Upset [facility] Medications Current Medications Medication Drug Class(es) Dates Sig (Normalized) Sig (Original) betamethasone 0.5 mg/ml / clotrimazole 10 mg/ml topical cream (18 sources) Azole Antifungal, Corticosteroid Start: 04-23-2023 End: 04-30-2023 clotrimazole-beta methasone (LOTRISONE) cream Apply 1 application to affected area twice daily for 7 days. 15 g 0 04/23/2023 04/30/2023 Active Completed/Discontinued Medications Medication Drug Class(es) Dates Sig (Normalized) Sig (Original) [id number] 200 actuat albuterol 0.09 mg/actuat metered dose inhaler (20 sources) beta2-Adrenergic Agonist Start: 08-16-2021 End: 08-30-2023 take 2 puff(s) by inhalation every six hours as needed for wheezing albuterol HFA (PROVENTIL HFA, VENTOLIN HFA) 90 mcg/actuation inhaler Indications: SOB (shortness of breath) Inhale 2 Puffs as instructed every 6 hours as needed for wheezing/shortness of breath. 6.7 g 5 02/16/2023 08/30/2023 Discontinued Problems Active Problems Problem Classification Problem Date Documented Da te Episodic/Chronic Anxiety disorders (20 sources) Generalized anxiety disorder; Translations: [Generalized anxiety disorder] Onset: 5 11-23-2017 Chronic Asthma (1 source) Mild intermittent asthma; Translations: [Mild intermittent asthma with (acute) exacerbation] Chronic Contraceptive and procreative management (1 source) Intrauterine contraceptive device in situ; Translations: [Encounter for routine checking of intrauterine contraceptive device] Episodic Disorders of lipid metabolism (20 sources) Hyperlipidemia; Translations: [Hyperlipidemia, unspecified] Onset: 2 11-21-2016 Chronic Esophageal disorders (20 sources) Gastroesophageal reflux disease; Translations: [Gastro-esophageal reflux disease without esophagitis] Onset: 2 Chronic Essential hypertension (20 sources) Essential hypertension; Translations: [Essential (primary) hypertension] Onset: 6 04-04-2016 Chronic Genitourinary symptoms and ill-defined conditions (4 sources) Genuine stress incontinence; Translations: [Stress incontinence (female) (male)] Onset: 3 Chronic Genitourinary symptoms and ill-defined conditions (10 sources) Increased frequency of urination; Translations: [Frequency of micturition] Episodic Headache, including migraine (1 source) Migraine with aura, intractable, without status migrainosus; Translations: [Migraine with aura, intractable, without status migrainosus] Onset: 8 Chronic Headache; including migraine (2 sources) Headache; Translations: [Headache, unspecified headache type] Episodic Immunizations and screening for infectious disease (5 sources) Patient encounter status; Translations: [Encounter for screening for human papillomavirus (HPV)] Onset: 3 Episodic Inflammatory diseases of female pelvic organs (2 sources) Acute vaginitis; Translations: [Acute vaginitis] Episodic Intracranial injury (2 sources) Concussion with no loss of consciousness; Translations: [Concussion without loss of consciousness, subsequent encounter] Episodic Malaise and fatigue (1 source) Fatigue; Translations: [Other fatigue] Episodic Menopausal disorders (1 source) Perimenopausal state; Translations: [Menopausal and female climacteric states] Chronic Nausea and vomiting (2 sources) Vomiting; Translations: [Vomiting, unspecified] Episodic Nonmalignant breast conditions (1 source) Fibrocystic disease of breast; Translations: [Diffuse cystic mastopathy of left breast] Chronic Osteoarthritis (1 source) Osteoarthrosis of the carpometacarpal joint of the thumb; Translations: [Unilateral primary osteoarthritis of first carpometacarpal joint, right hand] Chronic Other bone disease and musculoskeletal deformities (1 source) Clavicle pain; Translations: [Other specified disorders of bone, shoulder] Episodic Other circulatory disease (1 source) Respiratory symptom; Translations: [Other specified symptoms and signs involving the circulatory and respiratory systems] Episodic Other connective tissue disease (1 source) Pain in right hand; Translations: [Pain in right hand] Episodic Other connective tissue disease (20 sources) Lateral epicondylitis of right humerus; Translations: [Lateral epicondylitis, right elbow] Onset: 3 10-17-2022 Episodic Other connective tissue disease (1 source) Pain in right lower limb; Translations: [Pain in right leg] Episodic Other eye disorders (20 sources) Bilateral vitreous floaters; Translations: [Other vitreous opacities, bilateral] Onset: 6 10-07-2015 Chronic Other female genital disorders (1 source) Pruritus of vagina; Translations: [Other specified noninflammatory disorders of vagina] Episodic Other female genital disorders (4 sources) Vaginal discharge; Translations: [Other specified noninflammatory disorders of vagina] Episodic Other female genital disorders (2 sources) Vaginal hymen finding; Translations: [Other specified noninflammatory disorders of vagina] Episodic Other female genital disorders (2 sources) Vaginal odor; Translations: [Other specified noninflammatory disorders of vagina] Episodic Other female genital disorders (1 source) Cyst of vulva; Translations: [Vulvar cyst] Episodic Other gastrointestinal disorders (1 source) Abdominal bloating; Translations: [Abdominal distension (gaseous)] Episodic Other gastrointestinal disorders (3 sources) Heartburn; Translations: [Heartburn] Episodic Other gastrointestinal disorders (3 sources) Diarrhea; Translations: [Diarrhea, unspecified] Episodic Other gastrointestinal disorders (1 source) Stool finding; Translations: [Other fecal abnormalities] Episodic Other gastrointestinal disorders (2 sources) Constipation; Translations: [Constipation, unspecified] Episodic Other inflammatory condition of skin (1 source) Pruritus of vulva; Translations: [Pruritus vulvae] 05-18-2023 Episodic Other liver diseases (20 sources) Nodule of liver; Translations: [Other specified diseases of liver] Onset: 2 Chronic Other liver diseases (1 source) Other specified diseases of liver; Translations: [Liver nodule] Onset: 4 Chronic Other lower respiratory disease (3 sources) Dyspnea; Translations: [Shortness of breath] Episodic Other lower respiratory disease (1 source) Wheezing; Translations: [Wheezing] Episodic Other lower respiratory disease (1 source) Cough; Translations: [Acute cough] Episodic Other nervous system disorders (4 sources) Other chronic pain; Translations: [Chronic left shoulder pain] Onset: 3 Chronic Other non-traumatic joint disorders (1 source) Chronic pain of right upper limb; Translations: [Pain in right shoulder] Episodic Other non-traumatic joint disorders (1 source) Pain of right wrist; Translations: [Pain in right wrist] Episodic Other non-traumatic joint disorders (3 sources) Pain in left shoulder; Translations: [Pain in joint, shoulder region] Onset: 3 07-11-2023 Episodic Other non-traumatic joint disorders (2 sources) Chronic pain of left upper limb; Translations: [Pain in left shoulder] 07-26-2023 Episodic Other skin disorders (1 source) Skin lesion; Translations: [Disorder of the skin and subcutaneous tissue, unspecified] Episodic Other skin disorders (1 source) Skin tag; Translations: [Other hypertrophic disorders of the skin] Episodic Other upper respiratory infections (1 source) Chronic sinusitis; Translations: [Chronic sinusitis, unspecified] Chronic Other upper respiratory infections (3 sources) Sore throat symptom; Translations: [Acute pharyngitis, unspecified] Episodic Residual codes; unclassified (1 source) Influenza-like symptoms; Translations: [Other general symptoms and signs] Episodic Sprains and strains (1 source) Shoulder strain; Translations: [Strain of unspecified muscle, fascia and tendon at shoulder and upper arm level, left arm, initial encounter] 07-18-2023 Episodic Unclassified (20 sources) Conversion disorder with seizures or convulsions; Translations: [Non-organic sleep disorder] Onset: 6 09-27-2021 Chronic Unclassified (1 source) Unknown / UNK(Unknown) Onset: 8 Unclassified (1 source) NO SHOW Unclassified (1 source) OPENED IN ERROR Unclassified (1 source) Low back pain, unspecified back pain laterality, unspecified chronicity, unspecified whether sciatica present; Translations: [Low back pain, unspecified back pain laterality, unspecified chronicity, unspecified whether sciatica present] Onset: 3 Unclassified (1 source) Acute cough; Translations: [Acute cough] Onset: 3 Unclassified (1 source) Lumbar pain; Translations: [Lumbar pain] Onset: 3 Unclassified (1 source) Chronic midline low back pain without sciatica; Translations: [Chronic midline low back pain without sciatica] Onset: 3 Past or Other Problems Problem Classification Problem Date Documented Date Episodic/Chronic Abdominal pain (6 sources) Pain in female pelvis; Translations: [Pelvic and perineal pain] Onset: 3 Episodic Blindness and vision defects (20 sources) Visual disturbance; Translations: [Unspecified visual disturbance] Onset: 6 10-07-2015 Episodic Cardiac dysrhythmias (20 sources) Palpitations; Translations: [Palpitations] Onset: 2 Episodic Conditions associated with dizziness or vertigo (20 sources) Vertigo; Translations: [Dizziness and giddiness] Onset: 6 10-07-2015 Episodic Diabetes mellitus without complication (20 sources) Hyperglycemia; Translations: [Hyperglycemia, unspecified] Onset: 3 Episodic Epilepsy; convulsions (20 sources) Unspecified convulsions; Translations: [Seizure] Onset: 8 11-23-2017 Episodic Hemorrhoids (20 sources) Internal hemorrhoids; Translations: [Other hemorrhoids] Onset: 2 Episodic Nonspecific chest pain (20 sources) Chest pain; Translations: [Other chest pain] Onset: 2 12-15-2021 Episodic Other acquired deformities (2 sources) 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dorsopathies, lumbar region; Translations: [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dorsopathies, lumbar region] Onset: 8 Episodic Other and unspecified benign neoplasm (20 sources) Adenoma of liver; Translations: [Benign neoplasm of liver] Onset: 2 08-20-2022 Episodic Other and unspecified benign neoplasm (1 source) Benign neoplasm of liver; Translations: [Adenoma of liver] Onset: 2 Episodic Other connective tissue disease (20 sources) Enthesopathy of ankle AND/OR tarsus; Translations: [Other enthesopathy of unspecified foot and ankle] Onset: 5 02-10-2015 Episodic Other connective tissue disease (20 sources) Peroneal tendinitis of right lower limb; Translations: [Peroneal tendinitis, right leg] Onset: 5 02-24-2015 Episodic Other connective tissue disease (20 sources) Fibromyalgia; Translations: [Fibromyalgia] Onset: 7 09-07-2017 Episodic Other connective tissue disease (1 source) Fibromyalgia; Translations: [Fibromyalgia] Onset: 7 Episodic Other connective tissue disease (1 source) Lateral epicondylitis, right elbow; Translations: [Lateral epicondylitis, right elbow] Onset: 3 Episodic Other female genital disorders (1 source) Vulvar cyst; Translations: [Vulvar cyst] Onset: 3 Episodic Other female genital disorders (4 sources) Other specified noninflammatory disorders of vagina; Translations: [Vagina itching] Onset: 3 Episodic Other liver diseases (20 sources) Elevated liver enzymes level; Translations: [Abnormal levels of other serum enzymes] Onset: 2 Episodic Other liver diseases (1 source) Abnormal levels of other serum enzymes; Translations: [Elevated liver enzymes] Onset: 2 Episodic Other non-traumatic joint disorders (20 sources) Pain in lower limb; Translations: [Pain in unspecified knee] Onset: 2 02-21-2012 Episodic Other non-traumatic joint disorders (20 sources) Shoulder pain; Translations: [Pain in right shoulder] Onset: 0 11-28-2019 Episodic Other non-traumatic joint disorders (3 sources) Pain in right knee; Translations: [Pain in joint, lower leg] Onset: 3 Episodic Other non-traumatic joint disorders (20 sources) Pain in right shoulder; Translations: [Pain in joint, shoulder region] Onset: 0 11-28-2019 Episodic Other skin disorders (20 sources) Acne; Translations: [Other acne] Onset: 5 08-30-2011 Episodic Other skin disorders (1 source) Other hypertrophic disorders of the skin; Translations: [Skin tag] Onset: 3 Episodic Pneumonia (except that caused by tuberculosis or sexually transmitted disease) (5 sources) Bacterial pneumonia; Translations: [Unspecified bacterial pneumonia] Onset: 3 Episodic Spondylosis; intervertebral disc disorders; other back problems (20 sources) Low back pain; Translations: [Backache] Onset: 2 09-26-2021 Episodic Substance-related disorders (20 sources) Marijuana user; Translations: [Cannabis use, unspecified, uncomplicated] Onset: 3 09-26-2021 Episodic Unclassified (7 sources) Abnormal electroencephalogram [EEG]; Translations: [Cancer cervix screening status] Onset: 8 Episodic Results Test Name Value Interpretation Reference Range Facil ity Vital Signs Date Time Vital Sign Value Performing Clinician Sonu puckett 07-26-2023 13:29-0400 Body temperature 97.2 [degF] Yeison Ignacio PA-C Work Phone: [facility] 07-26-2023 13:29-0400 Body weight 75.75 kg Yeison Ignacio PA-C Work Phone: [facility] 07-26-2023 13:29-0400 Diastolic blood pressure 100 mm[Hg] Yeison Ignacio PA-C Work Phone: [facility] 07-26-2023 13:29-0400 Heart rate 65 /min Yeison Ignacio PA-C Work Phone: [facility] 07-26-2023 13:29-0400 Respiratory rate 22 /min Yeison Athy PA-C Work Phone: [facility] 07-26-2023 13:29-0400 SaO2% (BldA) [Mass fraction] 99 % Yeison Athy PA-C Work Phone: [facility] 07-26-2023 13:29-0400 Systolic blood pressure 160 mm[Hg] Yeison Athy PA-C Work Phone: [facility] 07-18-2023 17:55-0400 Body temperature 98.4 [degF] Yeison Athy PA-C Work Phone: [facility] 07-18-2023 17:55-0400 Body weight 75.57 kg Yeison Athy PA-C Work Phone: [facility] 07-18-2023 17:55-0400 Diastolic blood pressure 84 mm[Hg] Yeison Athy PA-C Work Phone: [facility] 07-18-2023 17:55-0400 Heart rate 85 /min Yeison Athy PA-C Work Phone: [facility] 07-18-2023 17:55-0400 Respiratory rate 18 /min Yeison Athy PA-C Work Phone: [facility] 07-18-2023 17:55-0400 SaO2% (BldA) [Mass fraction] 97 % Yeison Athy PA-C Work Phone: [facility] 07-18-2023 17:55-0400 Systolic blood pressure 138 mm[Hg] Yeison Athy PA-C Work Phone: [facility] 07-11-2023 12:14-0400 Body temperature 97.5 [degF] Moriah Hutchison [employer] Work Phone: [facility] 07-11-2023 12:14-0400 Body weight 75.66 kg Moriah Mckeonler-Pedro [employer] Work Phone: [facility] 07-11-2023 12:14-0400 Diastolic blood pressure 92 mm[Hg] Moriah Praisler-Wood [employer] ASSOC[employer] Work Phone: [facility] 07-11-2023 12:14-0400 Heart rate 69 /min Moriah Praisler-Wood [employer] ASSOCIATE Work Phone: [facility] 07-11-2023 12:14-0400 Respiratory rate 21 /min Moriah Praisler-Wood [employer] ASSOCIATE Work Phone: [facility] 07-11-2023 12:14-0400 SaO2% (BldA) [Mass fraction] 98 % Moriah Praisler-Wood [employer] ASSOCIATE Work Phone: [facility] 07-11-2023 12:14-0400 Systolic blood pressure 148 mm[Hg] Moriah Praisler-Wood [employer] ASSOC[employer] Work Phone: [facility] 05-29-2023 13:01-0400 Body weight 76.2 kg Jennifer Haagen [employer] Work Phone: [facility] 05-29-2023 13:01-0400 Diastolic blood pressure 104 mm[Hg] Jennifer Haagen [employer] ASSOC[employer] Work Phone: [facility] 05-29-2023 13:01-0400 Heart rate 74 /min Jennifer Haagen [employer] ASSOC[employer]ATE Work Phone: [facility] 05-29-2023 13:01-0400 Respiratory rate 16 /min Jennifer Haagen [employer] ASSOC[employer]ATE Work Phone: [facility] 05-29-2023 13:01-0400 Systolic blood pressure 160 mm[Hg] Jennifer Haagen [employer] ASSOC[employer] Work Phone: [facility] 05-18-2023 09:04-0400 Body weight 77.11 kg Indigo Candelario [employer] Work Phone: [facility] 05-18-2023 09:04-0400 Diastolic blood pressure 92 mm[Hg] Indigo Candelario [employer] Work Phone: [facility] 05-18-2023 09:04-0400 Systolic blood pressure 158 mm[Hg] Indigo Candelario [employer] Work Phone: [facility] 03-20-2023 13:24-0400 Body temperature 97.81 [degF] Allie Santiago [employer] ASS[employer] Work Phone: [facility] 03-20-2023 13:24-0400 Body weight 78.93 kg Allie Santiago [employer] ASS[employer] Work Phone: [facility] 03-20-2023 13:24-0400 Diastolic blood pressure 86 mm[Hg] Allie Santiago [employer] ASSOC[employer]ATE Work Phone: [facility] 03-20-2023 13:24-0400 Heart rate 71 /min Allie Santiago [employer] ASSOC[employer]ATE Work Phone: [facility] 03-20-2023 13:24-0400 Respiratory rate 18 /min Allie Santiago [employer] ASS[employer] Work Phone: [facility] 03-20-2023 13:24-0400 SaO2% (BldA) [Mass fraction] 99 % Allie Santiago [employer] Work Phone: [facility] 03-20-2023 13:24-0400 Systolic blood pressure 138 mm[Hg] Allie Santiago [employer] Work Phone: [facility] 03-20-2023 11:21-0400 Body weight 78.93 kg Nohelia Magalloncalf [employer] Work Phone: [facility] 03-20-2023 11:21-0400 Diastolic blood pressure 78 mm[Hg] Nohelia Brandon [employer] Work Phone: [facility] 03-20-2023 11:21-0400 Systolic blood pressure 122 mm[Hg] Nohelia [place] [employer].CLERICAL ASSOCIATE Work Phone: [facility] 03-15-2023 10:10-0400 Body temperature 97.39 [degF] Yohannes Michael [employer].CLERICAL ASSOCIATE Work Phone: [facility] 03-15-2023 10:10-0400 Body weight 77.75 kg [facility] [employer].CLERICAL ASSOCIATE Work Phone: [facility] 03-15-2023 10:10-0400 Diastolic blood pressure 100 mm[Hg] [facility] [employer].CLERICAL ASSOCIATE Work Phone: [facility] 03-15-2023 10:10-0400 Heart rate 80 /min Yohannes P[place] [employer].CLERICAL ASSOCIATE Work Phone: [facility] 03-15-2023 10:10-0400 Respiratory rate 21 /min [facility] [employer].CLERICAL ASSOCIATE Work Phone: [facility] 03-15-2023 10:10-0400 SaO2% (BldA) [Mass fraction] 98 % [facility] [employer].CLERICAL ASSOCIATE Work Phone: [facility] 03-15-2023 10:10-0400 Systolic blood pressure 130 mm[Hg] [facility]es [facility] [employer].CLERICAL ASSOCIATE Work Phone: [facility] 03-12-2023 18:14-0400 Body weight 78.02 kg Guillermo Lizama MD Work Phone: [facility] 03-12-2023 18:14-0400 Diastolic blood pressure 92 mm[Hg] Guillermo Lizama MD Work Phone: [facility] 03-12-2023 18:14-0400 Heart rate 79 /min Guillermo Lizama MD Work Phone: [facility] 03-12-2023 18:14-0400 SaO2% (BldA) [Mass fraction] 97 % Guillermo Lizama MD Work Phone: [facility] 03-12-2023 18:14-0400 Systolic blood pressure 152 mm[Hg] Guillermo Lizama MD Work Phone: [facility] 03-01-2023 09:43-0400 Body temperature 97.5 [degF] Jessica DIAZ Work Phone: [facility] 03-01-2023 09:43-0400 Body weight 79.74 kg Krislyn Aberegg PA Work Phone: [facility] 03-01-2023 09:43-0400 Diastolic blood pressure 100 mm[Hg] Krislyn Aberegg PA Work Phone: [facility] 03-01-2023 09:43-0400 Heart rate 70 /min Krislyn Aberegg PA Work Phone: [facility] 03-01-2023 09:43-0400 Respiratory rate 18 /min Krislyn Aberegg PA Work Phone: [facility] 03-01-2023 09:43-0400 SaO2% (BldA) [Mass fraction] 99 % Krislyn Aberegg PA Work Phone: [facility] 03-01-2023 09:43-0400 Systolic blood pressure 162 mm[Hg] Krislyn Aberegg PA Work Phone: [facility] 02-08-2023 08:41-0400 Body weight 78.02 kg Indigo Candelario APRN.CLERICAL ASSOCIATE Work Phone: [facility] 02-08-2023 08:41-0400 Diastolic blood pressure 72 mm[Hg] Indigo Candelario APRN.CLERICAL ASSOCIATE Work Phone: [facility] 02-08-2023 08:41-0400 Systolic blood pressure 128 mm[Hg] Indigo Candelario APRN.CLERICAL ASSOCIATE Work Phone: [facility] 01-24-2023 09:49-0400 Body temperature 97.9 [degF] Shawn Uribe MD Work Phone: [facility] 01-24-2023 09:49-0400 Body weight 79.38 kg Shawn Uribe MD Work Phone: [facility] 01-24-2023 09:49-0400 Diastolic blood pressure 84 mm[Hg] Shawn Uribe MD Work Phone: [facility] 01-24-2023 09:49-0400 Heart rate 84 /min Shawn Uribe MD Work Phone: [facility] 01-24-2023 09:49-0400 Respiratory rate 16 /min Shawn Uribe MD Work Phone: [facility] 01-24-2023 09:49-0400 Systolic blood pressure 130 mm[Hg] Shawn Uribe MD Work Phone: [facility] 01-09-2023 09:32-0400 Body weight 78.93 kg Indigo Candelario APRN.CLERICAL ASSOCIATE Work Phone: [facility] 01-09-2023 09:32-0400 Diastolic blood pressure 76 mm[Hg] Indigo Candelario APRN.CLERICAL ASSOCIATE Work Phone: [facility] 01-09-2023 09:32-0400 Systolic blood pressure 120 mm[Hg] Indigo Candelario APRN.CLERICAL ASSOCIATE Work Phone: [facility] 01-02-2023 09:00-0400 Body weight 79.7 kg Janay Heard MD Work Phone: [facility] 01-02-2023 09:00-0400 Diastolic blood pressure 70 mm[Hg] Janay Heard MD Work Phone: [facility] 01-02-2023 09:00-0400 Systolic blood pressure 116 mm[Hg] Janay Heard MD Work Phone: [facility] 12-14-2022 15:40-0400 Body temperature 98.2 [degF] Nohemi Kulkarni MD Work Phone: [facility] 12-14-2022 15:40-0400 Body weight 78.83 kg Nohemi Kulkarni MD Work Phone: [facility] 12-14-2022 15:40-0400 Diastolic blood pressure 80 mm[Hg] Nohemi Kulkarni MD Work Phone: [facility] 12-14-2022 15:40-0400 Heart rate 80 /min Nohemi Kulkarni MD Work Phone: [facility] 12-14-2022 15:40-0400 SaO2% (BldA) [Mass fraction] 100 % Nohemi uKlkarni MD Work Phone: [facility] 12-14-2022 15:40-0400 Systolic blood pressure 128 mm[Hg] Nohemi Kulkarni MD Work Phone: [facility] 09-14-2022 15:47-0500 Body temperature 97.9 [degF] Johnna Denbow PA-C Work Phone: [facility] 09-14-2022 15:47-0500 Body weight 79.83 kg Johnna Denbow PA-C Work Phone: [facility] 09-14-2022 15:47-0500 Diastolic blood pressure 82 mm[Hg] Johnna Denbow PA-C Work Phone: [facility] 09-14-2022 15:47-0500 Heart rate 93 /min Johnna Denbow PA-C Work Phone: [facility] 09-14-2022 15:47-0500 Respiratory rate 18 /min Johnna Denbow PA-C Work Phone: [facility] 09-14-2022 15:47-0500 SaO2% (BldA) [Mass fraction] 97 % Johnna Denbow PA-C Work Phone: [facility] 09-14-2022 15:47-0500 Systolic blood pressure 134 mm[Hg] Johnna Denbow PA-C Work Phone: [facility] 09-07-2022 08:55-0500 Body height 160 cm Nohemi Kulkarni MD Work Phone: [facility] 09-07-2022 08:55-0500 Body temperature 97.3 [degF] Nohemi Kulkarni MD Work Phone: [facility] 09-07-2022 08:55-0500 Body weight 78.93 kg Nohemi Kulkarni MD Work Phone: [facility] 09-07-2022 08:55-0500 Diastolic blood pressure 88 mm[Hg] Nohemi Kulkarni MD Work Phone: [facility] 09-07-2022 08:55-0500 Heart rate 109 /min Nohemi Kulkarni MD Work Phone: [facility] 09-07-2022 08:55-0500 SaO2% (BldA) [Mass fraction] 97 % Nohemi Kulkarni MD Work Phone: [facility] 09-07-2022 08:55-0500 Systolic blood pressure 130 mm[Hg] Nohemi Kulkarni MD Work Phone: [facility] 08-15-2022 16:21-0500 Body weight 79.38 kg NA Cook PA-C Work Phone: [facility] 08-15-2022 16:21-0500 Diastolic blood pressure 98 mm[Hg] NA Cook PA-C Work Phone: [facility] 08-15-2022 16:21-0500 Heart rate 71 /min NA Ocok PA-C Work Phone: [facility] 08-15-2022 16:21-0500 Respiratory rate 16 /min NA Cook PA-C Work Phone: [facility] 08-15-2022 16:21-0500 SaO2% (BldA) [Mass fraction] 98 % NA Cook PA-C Work Phone: [facility] 08-15-2022 16:21-0500 Systolic blood pressure 138 mm[Hg] NA Cook PA-C Work Phone: [facility] 08-11-2022 14:35-0500 Body height 160 cm Dee Dee Nava MD Work Phone: [facility] 08-11-2022 14:35-0500 Body temperature 97.81 [degF] Dee Dee Nava MD Work Phone: [facility] 08-11-2022 14:35-0500 Body weight 79.2 kg Dee Dee Nava MD Work Phone: [facility] 08-11-2022 14:35-0500 Diastolic blood pressure 93 mm[Hg] Dee Dee Nava MD Work Phone: [facility] 08-11-2022 14:35-0500 Heart rate 65 /min Dee Dee Nava MD Work Phone: [facility] 08-11-2022 14:35-0500 SaO2% (BldA) [Mass fraction] 97 % Dee Dee Nava MD Work Phone: [facility] 08-11-2022 14:35-0500 Systolic blood pressure 151 mm[Hg] Dee Dee Nava MD Work Phone: [facility] 08-09-2022 09:44-0500 Body weight 79.02 kg Karina Gold APRN.CNM Work Phone: [facility] 08-09-2022 09:44-0500 Diastolic blood pressure 76 mm[Hg] Karina Gold APRN.CNM Work Phone: [facility] 08-09-2022 09:44-0500 Systolic blood pressure 128 mm[Hg] Karina Gold APRN.CNM Work Phone: [facility] 05-30-2022 15:50-0400 Body height 157.5 cm Nohemi Kulkarni MD Work Phone: [facility] 05-30-2022 15:50-0400 Body temperature 98.1 [degF] Nohemi Kulkarni MD Work Phone: [facility] 05-30-2022 15:50-0400 Body weight 78.47 kg Nohemi Kulkarni MD Work Phone: [facility] 05-30-2022 15:50-0400 Diastolic blood pressure 92 mm[Hg] Nohemi Kulkarni MD Work Phone: [facility] 05-30-2022 15:50-0400 Heart rate 79 /min Nohemi Kulkarni MD Work Phone: [facility] 05-30-2022 15:50-0400 SaO2% (BldA) [Mass fraction] 97 % Nohemi Kulkarni MD Work Phone: [facility] 05-30-2022 15:50-0400 Systolic blood pressure 146 mm[Hg] Nohemi Kulkarni MD Work Phone: [facility] 05-19-2022 09:57-0400 Body weight 77.11 kg Indigo Candelario APRN.CLERICAL ASSOCIATE Work Phone: [facility] 05-19-2022 09:57-0400 Diastolic blood pressure 90 mm[Hg] Indigo Candelario APRN.CLERICAL ASSOCIATE Work Phone: [facility] 05-19-2022 09:57-0400 Systolic blood pressure 142 mm[Hg] Indigo Candelario APRN.CLERICAL ASSOCIATE Work Phone: [facility] 05-09-2022 11:06-0400 Body temperature 97.81 [degF] Betty Crane [employer].CLERICAL ASSOCIATE Work Phone: [facility] 05-09-2022 11:06-0400 Body weight 78.65 kg Betty Crane [employer].CLERICAL ASSOCIATE Work Phone: [facility] 05-09-2022 11:06-0400 Diastolic blood pressure 82 mm[Hg] Betty Crane [employer]PER [employer].CLERICAL ASSOCIATE Work Phone: [facility] 05-09-2022 11:06-0400 Heart rate 67 /min Betty Crane [employer].CLERICAL ASSOCIATE Work Phone: [facility] 05-09-2022 11:06-0400 Respiratory rate 16 /min Betty Crane APRN.CLERICAL ASSOCIATE Work Phone: [facility] 05-09-2022 11:06-0400 SaO2% (BldA) [Mass fraction] 96 % Betty Crane [employer].CLERICAL ASSOCIATE Work Phone: [facility] 05-09-2022 11:06-0400 Systolic blood pressure 136 mm[Hg] Betty Crane [employer]PER [employer].CLERICAL ASSOCIATE Work Phone: [facility] 05-07-2022 11:09-0400 Body temperature 97.81 [degF] Betty Royce [employer].CLERICAL ASSOCIATE Work Phone: [facility] 05-07-2022 11:09-0400 Body weight 78.02 kg Betty Royce [employer].CLERICAL ASSOCIATE Work Phone: [facility] 05-07-2022 11:09-0400 Diastolic blood pressure 102 mm[Hg] Betty Royce [employer].CLERICAL ASSOCIATE Work Phone: [facility] 05-07-2022 11:09-0400 Heart rate 72 /min Betty Royce [employer].CLERICAL ASSOCIATE Work Phone: [facility] 05-07-2022 11:09-0400 Respiratory rate 16 /min Betty Royce [employer].CLERICAL ASSOCIATE Work Phone: [facility] 05-07-2022 11:09-0400 SaO2% (BldA) [Mass fraction] 98 % Betty Royce [employer].CLERICAL ASSOCIATE Work Phone: [facility] 05-07-2022 11:09-0400 Systolic blood pressure 162 mm[Hg] Betty Royce [employer].CLERICAL ASSOCIATE Work Phone: [facility] 04-25-2022 10:40-0400 Diastolic blood pressure 88 mm[Hg] Nohemi Kulkarni MD Work Phone: [facility] 04-25-2022 10:40-0400 Heart rate 72 /min Nohemi Kulkarni MD Work Phone: [facility] 04-25-2022 10:40-0400 Respiratory rate 16 /min Nohemi Kulkarni MD Work Phone: [facility] 04-25-2022 10:40-0400 SaO2% (BldA) [Mass fraction] 95 % Nohemi Kulkarni MD Work Phone: [facility] 04-25-2022 10:40-0400 Systolic blood pressure 138 mm[Hg] Nohemi Kulkarni MD Work Phone: [facility] 04-25-2022 08:32-0400 Body temperature 97.3 [degF] Nohemi Kulkarni MD Work Phone: [facility] 04-25-2022 08:32-0400 Body weight 77.4 kg Nohemi Kulkarni MD Work Phone: [facility] 04-14-2022 09:08-0400 Body weight 77.38 kg Indigo Candelario APRN.CLERICAL ASSOCIATE Work Phone: [facility] 04-14-2022 09:08-0400 Diastolic blood pressure 82 mm[Hg] Indigo Candelario APRN.CLERICAL ASSOCIATE Work Phone: [facility] 04-14-2022 09:08-0400 Systolic blood pressure 134 mm[Hg] Indigo Candelario APRN.CLERICAL ASSOCIATE Work Phone: [facility] 04-10-2022 10:10-0400 Heart rate 60 /min [facility] 03-20-2022 14:21-0400 Body height 158 cm NA Cook PA-C Work Phone: [facility] 03-20-2022 14:21-0400 Body weight 78.47 kg NA Cook PA-C Work Phone: [facility] 03-20-2022 14:21-0400 Diastolic blood pressure 78 mm[Hg] NA Cook PA-C Work Phone: [facility] 03-20-2022 14:21-0400 Heart rate 68 /min NA Cook PA-C Work Phone: [facility] 03-20-2022 14:21-0400 Respiratory rate 18 /min NA Cook PA-C Work Phone: [facility] 03-20-2022 14:21-0400 SaO2% (BldA) [Mass fraction] 98 % NA Cook PA-C Work Phone: [facility] 03-20-2022 14:21-0400 Systolic blood pressure 118 mm[Hg] NA Cook PA-C Work Phone: [facility] 03-06-2022 14:07-0400 Body temperature 97 [degF] Shawn Uribe MD Work Phone: [facility] 03-06-2022 14:07-0400 Body weight 77.47 kg Shawn Uribe MD Work Phone: [facility] 03-06-2022 14:07-0400 Diastolic blood pressure 98 mm[Hg] Shawn Uribe MD Work Phone: [facility] 03-06-2022 14:07-0400 Heart rate 66 /min Shawn Uribe MD Work Phone: [facility] 03-06-2022 14:07-0400 Respiratory rate 21 /min Shawn Uribe MD Work Phone: [facility] 03-06-2022 14:07-0400 SaO2% (BldA) [Mass fraction] 96 % Shawn Uribe MD Work Phone: [facility] 03-06-2022 14:07-0400 Systolic blood pressure 140 mm[Hg] Shawn Uribe MD Work Phone: [facility] 03-01-2022 10:32-0400 Body temperature 97.39 [degF] Yohannes Pendlebury [employer].CLERICAL ASSOCIATE Work Phone: [facility] 03-01-2022 10:32-0400 Body weight 79.2 kg Yohannes [place] [employer].CLERICAL ASSOCIATE Work Phone: [facility] 03-01-2022 10:32-0400 Diastolic blood pressure 84 mm[Hg] Yohannes [place] [employer].CLERICAL ASSOCIATE Work Phone: [facility] 03-01-2022 10:32-0400 Heart rate 63 /min Yohannes P[place]bury HEL[employer].CLERICAL ASSOCIATE Work Phone: [facility] 03-01-2022 10:32-0400 Respiratory rate 18 /min Yohannes P[place]lebury [employer].CLERICAL ASSOCIATE Work Phone: [facility] 03-01-2022 10:32-0400 SaO2% (BldA) [Mass fraction] 98 % Yohannes Pendlebury [employer].CLERICAL ASSOCIATE Work Phone: [facility] 03-01-2022 10:32-0400 Systolic blood pressure 142 mm[Hg] Yohannes Michael [employer].CLERICAL ASSOCIATE Work Phone: [facility] 02-08-2022 11:31-0400 Body height 157.5 cm Pacc 1 Work Phone: [facility] 02-08-2022 11:31-0400 Body temperature 97.3 [degF] Pacc 1 Work Phone: [facility] 02-08-2022 11:31-0400 Body weight 78.47 kg Pacc 1 Work Phone: [facility] 02-08-2022 11:31-0400 Diastolic blood pressure 90 mm[Hg] Pacc 1 Work Phone: [facility] 02-08-2022 11:31-0400 Heart rate 70 /min Pacc 1 Work Phone: [facility] 02-08-2022 11:31-0400 Respiratory rate 14 /min Pacc 1 Work Phone: [facility] 02-08-2022 11:31-0400 SaO2% (BldA) [Mass fraction] 98 % Pacc 1 Work Phone: [facility] 02-08-2022 11:31-0400 Systolic blood pressure 138 mm[Hg] Pacc 1 Work Phone: [facility] 02-07-2022 07:01-0400 Body height 157.5 cm Nohelia [place] [employer].CLERICAL ASSOCIATE Work Phone: [facility] 02-07-2022 07:01-0400 Body weight 77.66 kg Nohelia Brandon [employer].CLERICAL ASSOCIATE Work Phone: [facility] 02-07-2022 07:01-0400 Diastolic blood pressure 60 mm[Hg] Nohelia Brandon [employer]PER [employer].CLERICAL ASSOCIATE Work Phone: [facility] 02-07-2022 07:01-0400 Systolic blood pressure 118 mm[Hg] Nohelia [place] [employer]PER [employer].CLERICAL ASSOCIATE Work Phone: [facility] 01-27-2022 09:57-0400 Body weight 77.56 kg NA Cook PA-C Work Phone: [facility] 01-27-2022 09:57-0400 Diastolic blood pressure 80 mm[Hg] NA Cook PA-C Work Phone: [facility] 01-27-2022 09:57-0400 Heart rate 80 /min NA Cook PA-C Work Phone: [facility] 01-27-2022 09:57-0400 Respiratory rate 16 /min NA Cook PA-C Work Phone: [facility] 01-27-2022 09:57-0400 Systolic blood pressure 126 mm[Hg] NA Cook PA-C Work Phone: [facility] 01-23-2022 16:07-0400 Body temperature 97.9 [degF] Betty Royce [employer].CLERICAL ASSOCIATE Work Phone: [facility] 01-23-2022 16:07-0400 Body weight 77.11 kg Betty Royce [employer].CLERICAL ASSOCIATE Work Phone: [facility] 01-23-2022 16:07-0400 Diastolic blood pressure 80 mm[Hg] Betty Royce [employer].CLERICAL ASSOCIATE Work Phone: [facility] 01-23-2022 16:07-0400 Heart rate 78 /min Betty Royce [employer].CLERICAL ASSOCIATE Work Phone: [facility] 01-23-2022 16:07-0400 Respiratory rate 16 /min Betty Royce [employer].CLERICAL ASSOCIATE Work Phone: [facility] 01-23-2022 16:07-0400 SaO2% (BldA) [Mass fraction] 98 % Betty Royce [employer].CLERICAL ASSOCIATE Work Phone: [facility] 01-23-2022 16:07-0400 Systolic blood pressure 124 mm[Hg] Betty Royce [employer].CLERICAL ASSOCIATE Work Phone: [facility] Encounters Encounter Date Encounter Type Care Provider Facility Start: 10-08-2023 End: 10-08-2023 ambulatory Jaguar COOK Facility:[facility] Start: 10-03-2023 End: 10-03-2023 ambulatory Jaguar COOK Facility:[facility] Start: 09-07-2023 ambulatory Indigo [place] RN.CLERICAL ASSOCIATE Work Phone: OB/Gynecology Procedures Date Procedure Procedure Detail Performing Clinician Start: 07-26-2023 Urnls dip stick/tablet rgnt auto w/o microscopy Allie Santiago [employer].CLERICAL ASSOCIATE Work Phone: Start: 07-11-2023 Urnls dip stick/tablet rgnt auto w/o microscopy Moriah Hutchison [employer].CLERICAL ASSOCIATE Work Phone: Start: 04-17-2023 Mri brain brain stem w/o contrast material Guillermo Lizama MD Work Phone: Start: 04-04-2023 Us breast uni real time with image limited Nohelia Taylor APRN.CLERICAL ASSOCIATE Work Phone: Start: 04-04-2023 Mammography Indiog Candelario [employer].CLERICAL ASSOCIATE Work Phone: Start: 03-01-2023 STREP A MOLECULAR (POC) Moriah olmstead [employer].CLERICAL ASSOCIATE Work Phone: Start: 01-24-2023 STREP A MOLECULAR (POC) Yeison Ignacio PA-C Work Phone: Start: 12-11-2022 RONDA SCREENING W CHRISBonnie Taylor [employer].CLERICAL ASSOCIATE Work Phone: Start: 12-11-2022 Mammography Mammography Coordinator Start: 05-19-2022 Urnls dip stick/tablet rgnt auto w/o microscopy Indigo Candelario APRN.CLERICAL ASSOCIATE Work Phone: Start: 05-07-2022 Urnls dip stick/tablet rgnt auto w/o microscopy Yeison Ignacio PA-C Work Phone: Start: 04-25-2022 Esophagogastroduodenoscopy transoral diagnostic Nohemi uKlkarni MD Work Phone: Start: 04-25-2022 Colonoscopy flx dx w/collj spec when pfrmd Nohemi Kulkarni MD Work Phone: Start: 04-25-2022 Colonoscopy Nohemi Kulkarni MD Work Phone: Start: 03-23-2022 Mri abdomen w/o & w/contrast material Jaguar Cook PA-C Work Phone: Start: 02-28-2022 Adult depression screening assessment Yohannes Michael [employer].CLERICAL ASSOCIATE Work Phone: Start: 01-30-2022 Us abdominal real time w/image limited M Nicolette Cook PA-C Work Phone: Start: 01-23-2022 Urnls dip stick/tablet rgnt auto w/o microscopy Betty Crane [employer].CLERICAL ASSOCIATE Work Phone: Start: 05-25-2021 Mammography Nohemi Kulkarni MD Work Phone: Start: 04-22-2020 Lipid 1996 panel - Serum or Plasma Lloyd Whitfield [employer].CLERICAL ASSOCIATE Work Phone: Start: 04-09-2019 Adult depression screening assessment Nohemi Kulkarni MD Work Phone: Plan of Treatment Date Care Activity Detail Author Start: 03-31-2033 Urine microalbumin profile DTa P,Tdap,Td Vaccine (2 - Td or Tdap) [facility] Start: 04-25-2032 Colonoscopy COLONOSCOPY [facility] Start: 04-25-2032 COLORECTAL CANCER SCREENING COLORECTAL CANCER SCREENING [facility] Start: 02-07-2027 HPV TESTING HPV TESTING [facility] Start: 02-07-2027 PAP TESTING PAP TESTING [facility] Start: 10-26-2025 [facility] Start: 10-26-2025 Diabetes Screening Diabetes Screenin g [facility] Start: 04-22-2025 Lipid 1996 panel - S addi or Plasma Lipid Screening [facility] Start: 04-22-2025 LIPID SCREEN LIPID SCREEN [facility] Start: 06-25-2024 BP Controlled (<130/80) BP Controlle d (<130/80) [facility] Start: 05-29-2024 ANNUAL PCP TEAM SALES SERVICE ASSISTANT ABELARDO DISEASE VISIT ANNUAL PCP TEAM CHRONIC DISEASE VISIT [facility] Start: 04-04-2024 Mammography [facility] Start: 03-12-2024 ANNUAL PCP TEAM SALES SERVICE ASSISTANT ABELARDO DISEASE VISIT ANNUAL PCP TEAM CHRONIC DISEASE VISIT [facility] Start: 03-05-2024 ANNUAL PCP TEAM SALES SERVICE ASSISTANT ABELARDO DISEASE VISIT ANNUAL PCP TEAM CHRONIC DISEASE VISIT [facility] Start: 02-09-2024 BP CONTROLLED (<130/80) BP CONTROLLE D (<130/80) [facility] Start: 01-10-2024 BP CONTROLLED (<130/80) BP CONTROLLE D (<130/80) [facility] Start: 01-03-2024 BP CONTROLLED (<130/80) BP CONTROLLE D (<130/80) [facility] Start: 12-12-2023 Mammography MAMMOGRAM [facility] Start: 11-06-2023 ANNUAL PCP TEAM SALES SERVICE ASSISTANT ABELARDO DISEASE VISIT ANNUAL PCP TEAM CHRONIC DISEASE VISIT [facility] Start: 10-17-2023 ANNUAL PCP TEAM SALES SERVICE ASSISTANT ABELARDO DISEASE VISIT ANNUAL PCP TEAM CHRONIC DISEASE VISIT [facility] Start: 09-21-2023 ANNUAL PCP TEAM SALES SERVICE ASSISTANT ABELARDO DISEASE VISIT ANNUAL PCP TEAM CHRONIC DISEASE VISIT [facility] Start: 08-15-2023 ANNUAL PCP TEAM SALES SERVICE ASSISTANT ABELARDO DISEASE VISIT ANNUAL PCP TEAM CHRONIC DISEASE VISIT [facility] Start: 08-15-2023 COVID-19 VACCINE (#1) COVID-19 VACCI NE (#1) [facility] Immunizations Immunization Date Immunization Notes Care Provider Fa nona 07-26-2018 influenza virus vacc ine, unspecified formulation Jennifer Whitfield [employer]ICAL [employer]OCI[employer] Work Phone: [facility] Payers Date Payer Category Payer Medicaid [id number] 2013 Medicaid [id number] 2013 Medicaid [employer] [id number] 2013-Present [phone] [address] [place] [address] Medicaid [id number] 2013 Medicaid [id number] Unknown Social History Date Type Detail Facility Start: 05-07-2022 Tobacco smoking stat us NHIS Never smoked tobacco [facility] Start: 10-19-2021 End: 08-20-2023 Alcohol intake Current non-drinker of alcohol (finding) [facility] Start: 08-03-2020 End: 01-24-2022 History SDOH Alcohol Std Drinks 98 [facility] Start: 08-03-2020 End: 09-14-2022 History SDOH Alcohol Binge 1 [facility] Start: 04-20-2020 End: 09-14-2022 History SDOH Social Connections Phone 3 [facility] Start: 04-20-2020 End: 09-14-2022 History SDOH Social Connections Get Together 2 [facility] Start: 04-20-2020 End: 09-14-2022 History SDOH Social Connections Living 5 [facility] Start: 04-20-2020 End: 09-14-2022 History SDOH Stress 4 [facility] Start: 04-20-2020 Education 14 [facility] Start: 1975 Sex Assigned At Not on file [facility] Start: 01-14-2022 End: 08-11-2022 Exposure to SARS-CoV-2 (event) Not sure [facility] Start: 05-07-2022 Tobacco use and exposure Smoke less tobacco non-user [facility] Work Phone: Start: 09-14-2022 End: 02-08-2023 History of Social function [facility] Start: 09-14-2022 End: 02-08-2023 Social connection and isolation panel [facility] Attends [employer] Not on file [facility] Do you belong to any clubs or organizations such as christianity groups, unions, fraternal or athletic groups, or school groups? No [facility] Are you now , , , , never or living with a partner? [facility] How often to you hav e a drink containing alcohol? Monthly or less [facility] How many standard dr inks containing alcohol do you have on a typical day? 3 or 4 [facility] How often do you hav e 6 or more drinks on 1 occasion? Never [facility] Do you feel stress - tense, restless, nervous, or anxious, or unable to sleep at night because your mind is troubled all the time - these days [OSQ] Rather much [facility] (I/We) worried wheth er (my/our) food would run out before (I/we) got money to buy more. Never true [facility] Clinical Notes 05-29-2012 to 10-08-2023 Telephone Encounter - Karla Verde RN - 09/07/2023 9:00 AM ESTTelephone Encounter - Larisa Sena - 08/30/2023 10:46 AM Jonah lAlred MD - 08/20/2023 2:06 PM ESTPatient Instructions Note Date & Type Note Facility 10-08-2023 Note [facility] 10-03-2023 Note [facility] 09-07-2023 Miscellaneous Notes Patient was last need in office 05/18/23 by AG. Karla Verde RN documented in this encounter [facility] 08-30-2023 Miscellaneous Notes Patient has been identified by name and date of : Yes Requested Prescriptions Pending Prescriptions Disp Refills albuterol HFA (PROVENTIL HFA, VENTOLIN HFA) 90 mcg/actuation inhaler 6.7 g 5 Sig: Inhale 2 Puffs as instructed every 6 hours as needed for wheezing/shortness of breath. GENARO:05-29-23 No known appointment made. RX INSTRUCTIONS: Patient aware RX will be sent to pharmacy. No need to notify patient. Larisa Sena documented in this encounter [facility] 08-20-2023 Note [facility] 08-20-2023 History of Presen t illness Narrative Jonah Ibrahim MD Department of Orthopaedics [facility] [address] [facility] [address] Dept: [phone] Dept August 20, 2023 CHIEF COMPLAINT: New and Pain of the Left Shoulder (Left shoulder pain/Referred by JOE Bender/Brittney 07/11/2023/Last seen 10/30/2022 right leg pain) HPI: Patient is here for left shoulder. About 3 weeks ago the patient states she was lifting an awkward sized box at work and was sore afterwards. Then helped a friend move and noticed her left shoulder was painful when lifting. Patient went to urgent care and was off of work for a bit which helped but the pain is still there. Patient states that at first the pain was in her shoulder and across into her clavicle and in her upper back but that pain has gotten partially back. Patient thinks the shoulder looks swollen compared to the right side. 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 ASSESSMENT: M25.512, G89.29 Chronic left shoulder pain PLAN: She's doing better overall. Thinking is was a bit of AC strain and some compensation with the scapular mm. NSAIDs, some PT if persists. FOLLOW UP INSTRUCTIONS: As needed. OBJECTIVE: Ms. Indigo Alves is a pleasant 47 year old in no apparent distress. Gen:LMP 05/17/2023 nl development, non obese, no deformities ENT: Normocephalic, normal hearing, moist mucosa CV: Pulses:Radial= 2+ and symmetric, capillary refill < 2 secs, no peripheral edema/varicosities Skin: no rash, bruising or lesions. Good turgor. Psych: cooperative and appropriate, alert and oriented x 3, good mood and affect. Musculoskeletal: Mild TTP at the AC joint. FUll ROM of the shoulder. Neg impingement signs. IMAGING: IMPRESSION: No radiographic evidence of acute osseous abnormality Director Strategic Account Management: EVELINE Transcribe Date/Time: Jul 11 2023 1:17P Dictated by : JOHNSON ONEAL MD This examination was interpreted and the report reviewed and electronically signed by: JOHNSON ONEAL MD on Jul 11 2023 1:17PM EST Results-Findings * * *Final Report* * * DATE OF EXAM: Jul 11 2023 1:12PM WOX [id number] - XR SHLDR >/=3V AP/KO AP/OTHR LT / PROCEDURE REASON: Acute pain of left shoulder * * * * Physician Interpretation * * * * TITLE: XR SHLDR >/=3V AP/KO AP/OTHR LT CLINICAL INDICATION: Shoulder pain TECHNIQUE: 3 view radiographic study of the left shoulder COMPARISON: None FINDINGS: No acute fracture or dislocation identified. Acromioclavicular joint intact. Supporting Subjective Information Below: Past Medical History: PAST MEDICAL HISTORY Diagnosis Date Anxiety generalized anxiety & panic disorder (diagnosed by PCP) Chronic back pain mild scolosis and sciatica & SI joint locks up; was seeing pain management, now sees PCP GERD (gastroesophageal reflux disease) Hemorrhoids Hyperlipidemia 2011 Hypertension Marijuana use Vertigo Past Surgical History: PAST SURGICAL HISTORY Procedure Laterality Date ABDOMINAL SURGERY HX BREAST REDUCTION 07/2020 BREAST SURGERY HX CHOLECYSTECTOMY 2009 Cholecystectomy COLONOSCOPY 04/25/2022 repeat in 10 years EGD W/O BRSH SPEC VARICIES INJ 04/25/2022 HEMORROIDECTOMY INTERNAL 04/26/2022 INSERTION OF IUD LIG/TRNSXJ FLP TUBE ABDL/VAG APPR UNI/BI Tubal ligation SHX COSMETIC SURGERY Family History: FAMILY HISTORY Problem Relation Age of Onset Hypertension Mother Hyperlipidemia Mother None Father other (Other) Father MVA - heart attack Diabetes Brother Hyperlipidemia Brother Heart Brother Asthma Son Allergies Son Allergies Son Cancer Sister 41 cervical, ?lymph Diabetes Sister Heart Brother CAD-quadruple bypass, age 46 Heart Brother CAD stent placement Social History: Social History Tobacco Use Smoking status: Never Smokeless tobacco: Never Vaping Use Vaping Use: Never used Substance Use Topics Alcohol use: No Drug use: Yes Types: Marijuana Comment: yolanda Medications: Current Outpatient Medications Medication Sig nystatin-triamcinolone (MYCOLOG) ointment Apply sparingly to perineum twice daily for irritation/infection. lisinopril (ZESTRIL) 10 mg tablet Take 1 tablet by mouth once daily. metoprolol tartrate, short acting, (LOPRESSOR) 50 mg tablet Take 1 tablet by mouth twice daily. Omeprazole Magnesium (PRILOSEC OTC) 20 mg tablet Take 1 tablet by mouth once daily. simvastatin (ZOCOR) 10 mg tablet Take 1 tablet by mouth once daily. cyclobenzaprine (FLEXERIL) 10 mg tablet Take 1 tablet by mouth three times daily as needed. albuterol HFA (PROVENTIL HFA, VENTOLIN HFA) 90 mcg/actuation inhaler Inhale 2 Puffs as instructed every 6 hours as needed for wheezing/shortness of breath. Lactobacillus acidophilus (FLORAJEN ACIDOPHILUS) 20 billion cell cap Take 1 capsule by mouth once daily. levonorgestrel (MIRENA) 20 mcg/24 hours (5 yrs) 52 mg IUD 1 Each by INTRAUTERINE route as directed. Cholecalciferol, Vitamin D3, 1,000 unit cap Take 1 capsule by mouth once daily. cyclobenzaprine (FLEXERIL) 10 mg tablet Take 1 tablet by mouth three times a day as needed for muscle spasm. oxybutynin XL (DITROPAN XL) 5 mg 24 hr tablet Take 1 tablet by mouth once daily. No current facility-administered medications for this visit. Allergies: House Dust, Maple Flavor, Metronidazole, and Seasonal Allergies ROS: General (negative for fatigue, malaise, weight loss/gain) HEENT (negative for headache, earache, recent vision changes, sinus pain, sore throat) Respiratory (no recent shortness of breath, hemoptysis) CV (negative for chest tightness, palpitations) Musculoskeletal (see HPI) Psych (no depression, anxiety) REFERRING PHYSICIAN: Consultation requested by Yeison Ignacio for an opinion regarding shoudler pain. My final recommendations will be communicated back to the requesting physician by way of shared Medical record or letter to requesting physician via US mail. Yeison Ignacio [address] [facility] [address] M Nicolette Cook PA-C [address] [facility] [address] Jonah Ibrahim MD documented in this encounter [facility] 08-05-2023 Note [facility] 07-27-2023 Miscellaneous Notes Patient returned call and went over results, notes from express care provider with understanding. Left VM instructing patient to return call to receive results. Elzbieta Recio MA Urine culture showed no infection. Please follow-up with your primary care provider or urology to evaluate blood in the urine. documented in this encounter [facility] 07-26-2023 Note [facility] 07-26-2023 History of Presen t illness Narrative This note was created using [employer]Cadbox[employer]. Subjective Indigo Alves is a 47 year old female. HPI Patient presents with urinary frequency for 2 weeks. She was seen on July 11 and had group B strep in her urine. She had taken Macrobid for this. She also was on MetroGel for BV. She had completed both of those. She states she still having urinary frequency. She is on oxybutynin for her overactive bladder. She denies any dysuria or blood in her urine. She would just like her urine rechecked. No fever. No abdominal pain or back pain. Patient also has been having left shoulder pain over the past several weeks. She has been seen here twice for it already. She did have x-rays completed. She is seeing her primary doctor on Sunday but needed a work note as she had missed a couple days due to the pain this week. No new injury or trauma. 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 Review of Systems Constitutional: Negative. HENT: Negative. Respiratory: Negative. Cardiovascular: Negative. Gastrointestinal: Negative. Genitourinary: Positive for frequency and urgency. Negative for dysuria, flank pain, pelvic pain, vaginal bleeding and vaginal discharge. Musculoskeletal: Shoulder pain, left All other systems reviewed and are negative. PAST MEDICAL HISTORY Diagnosis Date Anxiety generalized anxiety & panic disorder (diagnosed by PCP) Chronic back pain mild scolosis and sciatica & SI joint locks up; was seeing pain management, now sees PCP GERD (gastroesophageal reflux disease) Hemorrhoids Hyperlipidemia 2012 Hypertension Marijuana use Vertigo Current Outpatient Medications Medication Sig Dispense Refill cyclobenzaprine (FLEXERIL) 10 mg tablet Take 1 tablet by mouth three times a day as needed for muscle spasm. 15 tablet 0 lisinopril (ZESTRIL) 10 mg tablet Take 1 tablet by mouth once daily. 30 tablet 1 metoprolol tartrate, short acting, (LOPRESSOR) 50 mg tablet Take 1 tablet by mouth twice daily. 180 tablet 3 Omeprazole Magnesium (PRILOSEC OTC) 20 mg tablet Take 1 tablet by mouth once daily. 30 tablet 5 oxybutynin XL (DITROPAN XL) 5 mg 24 hr tablet Take 1 tablet by mouth once daily. 30 tablet 5 simvastatin (ZOCOR) 10 mg tablet Take 1 tablet by mouth once daily. 30 tablet 11 ondansetron orally disintegrating (ZOFRAN ODT) 4 mg disintegrating tablet Take 1 tablet by mouth every 6 hours as needed for nausea/vomiting. 10 tablet 1 cyclobenzaprine (FLEXERIL) 10 mg tablet Take 1 tablet by mouth three times daily as needed. 30 tablet 0 albuterol HFA (PROVENTIL HFA, VENTOLIN HFA) 90 mcg/actuation inhaler Inhale 2 Puffs as instructed every 6 hours as needed for wheezing/shortness of breath. 6.7 g 5 Lactobacillus acidophilus (FLORAJEN ACIDOPHILUS) 20 billion cell cap Take 1 capsule by mouth once daily. 30 capsule 11 levonorgestrel (MIRENA) 20 mcg/24 hours (5 yrs) 52 mg IUD 1 Each by INTRAUTERINE route as directed. 1 Each 0 Cholecalciferol, Vitamin D3, 1,000 unit cap Take 1 capsule by mouth once daily. 0 No current facility-administered medications for this visit. PAST SURGICAL HISTORY Procedure Laterality Date ABDOMINAL SURGERY HX BREAST REDUCTION 07/2020 BREAST SURGERY HX CHOLECYSTECTOMY 2009 Cholecystectomy COLONOSCOPY 04/25/2022 repeat in 10 years EGD W/O BRSH SPEC VARICIES INJ 04/25/2022 HEMORROIDECTOMY INTERNAL 04/26/2022 INSERTION OF IUD LIG/TRNSXJ FLP TUBE ABDL/VAG APPR UNI/BI Tubal ligation SHX COSMETIC SURGERY FAMILY HISTORY Problem Relation Age of Onset Hypertension Mother Hyperlipidemia Mother None Father other (Other) Father MVA - heart attack Diabetes Brother Hyperlipidemia Brother Heart Brother Asthma Son Allergies Son Allergies Son Cancer Sister 41 cervical, ?lymph Diabetes Sister Heart Brother CAD-quadruple bypass, age 46 Heart Brother CAD stent placement Social History Tobacco Use Smoking status: Never Smokeless tobacco: Never Vaping Use Vaping Use: Never used Substance Use Topics Alcohol use: No Drug use: Not Currently Types: Marijuana Objective BP 160/100 Pulse 65 Temp 36.2 C (97.2 F) Resp 22 Wt 75.8 kg (167 lb) LMP 05/17/2023 (Exact Date) SpO2 99% BMI 29.58 kg/m Physical Exam Vitals reviewed. Constitutional: Appearance: Normal appearance. HENT: Head: Normocephalic and atraumatic. Cardiovascular: Rate and Rhythm: Normal rate and regular rhythm. Heart sounds: Normal heart sounds. Pulmonary: Effort: Pulmonary effort is normal. Breath sounds: Normal breath sounds. Abdominal: General: Abdomen is flat. Palpations: Abdomen is soft. Tenderness: There is no abdominal tenderness. There is no right CVA tenderness, left CVA tenderness or guarding. Musculoskeletal: Comments: Patient has pain with lifting the left arm up above the head. Some pain with internal and external rotation. Normal strength and sensation in the left and right arm. Radial pulses 2+. Neurological: Mental Status: She is alert. Assessment and Plan ASSESSMENT/PLAN: 1. Urinary frequency - ICD9: 788.41, ICD10: R35.0 (primary diagnosis) UA just shows trace blood. Not currently on menstrual cycle. I did send for culture. If negative would recommend to follow-up for the blood in urine. She has had blood in her urine for about a year and a half on every dip. - UA DIP, URINE (POC) - URINE CULTURE 2. Microscopic hematuria - ICD9: 599.72, ICD10: R31.29 3. Chronic left shoulder pain - ICD9: 719.41, 338.29, ICD10: M25.512, G89.29 Recommend follow-up with orthopedics. - CONSULT TO ORTHOPAEDICS Yeison Ignacio PA-C documented in this encounter [facility] 07-18-2023 Note [facility] 07-18-2023 History of Presen t illness Narrative This note was created using TheLaddersriter. Subjective Indigo Alves is a 47 year old female. HPI Patient presents with a chief complaint of left shoulder pain. She was seen a week ago and had x-rays which were negative. She states she been doing a lot of lifting at work and repetitive motions and thinks she may have hurt it that way. Denies any falls or sudden trauma to it. She has had shoulder problems previously. She also is complaining of vomiting and diarrhea for 2 days. She states the vomiting really has improved today but is still having 5 or 6 bouts of diarrhea today. No blood in stool. No recent antibiotics. No recent travel. Did not eat out recently. She has been drinking fluids. She denies lightheadedness or dizziness. No abdominal pain. No urinary complaints. Review of Systems HENT: Negative for congestion, ear pain, rhinorrhea and sore throat. Respiratory: Negative for cough. Cardiovascular: Negative. Gastrointestinal: Positive for diarrhea, nausea and vomiting. Negative for abdominal pain and blood in stool. Genitourinary: Left shoulder pain Musculoskeletal: Negative. All other systems reviewed and are negative. PAST MEDICAL HISTORY Diagnosis Date Anxiety generalized anxiety & panic disorder (diagnosed by PCP) Chronic back pain mild scolosis and sciatica & SI joint locks up; was seeing pain management, now sees PCP GERD (gastroesophageal reflux disease) Hemorrhoids Hyperlipidemia 2011 Hypertension Marijuana use Vertigo Current Outpatient Medications Medication Sig Dispense Refill nitrofurantoin monohydrate and macrocrystal (MACROBID) 100 mg capsule Take 1 capsule by mouth two times a day for 7 days. 14 capsule 0 lisinopril (ZESTRIL) 10 mg tablet Take 1 tablet by mouth once daily. 30 tablet 1 metoprolol tartrate, short acting, (LOPRESSOR) 50 mg tablet Take 1 tablet by mouth twice daily. 180 tablet 3 Omeprazole Magnesium (PRILOSEC OTC) 20 mg tablet Take 1 tablet by mouth once daily. 30 tablet 5 simvastatin (ZOCOR) 10 mg tablet Take 1 tablet by mouth once daily. 30 tablet 11 ondansetron orally disintegrating (ZOFRAN ODT) 4 mg disintegrating tablet Take 1 tablet by mouth every 6 hours as needed for nausea/vomiting. 10 tablet 1 cyclobenzaprine (FLEXERIL) 10 mg tablet Take 1 tablet by mouth three times daily as needed. 30 tablet 0 albuterol HFA (PROVENTIL HFA, VENTOLIN HFA) 90 mcg/actuation inhaler Inhale 2 Puffs as instructed every 6 hours as needed for wheezing/shortness of breath. 6.7 g 5 Lactobacillus acidophilus (FLORAJEN ACIDOPHILUS) 20 billion cell cap Take 1 capsule by mouth once daily. 30 capsule 11 levonorgestrel (MIRENA) 20 mcg/24 hours (5 yrs) 52 mg IUD 1 Each by INTRAUTERINE route as directed. 1 Each 0 Cholecalciferol, Vitamin D3, 1,000 unit cap Take 1 capsule by mouth once daily. 0 cyclobenzaprine (FLEXERIL) 10 mg tablet Take 1 tablet by mouth three times a day as needed for muscle spasm. 15 tablet 0 oxybutynin XL (DITROPAN XL) 5 mg 24 hr tablet Take 1 tablet by mouth once daily. 30 tablet 5 No current facility-administered medications for this visit. PAST SURGICAL HISTORY Procedure Laterality Date ABDOMINAL SURGERY HX BREAST REDUCTION 07/2020 BREAST SURGERY HX CHOLECYSTECTOMY 2009 Cholecystectomy COLONOSCOPY 04/25/2022 repeat in 10 years EGD W/O BRSH SPEC VARICIES INJ 04/25/2022 HEMORROIDECTOMY INTERNAL 04/26/2022 INSERTION OF IUD LIG/TRNSXJ FLP TUBE ABDL/VAG APPR UNI/BI Tubal ligation SHX COSMETIC SURGERY FAMILY HISTORY Problem Relation Age of Onset Hypertension Mother Hyperlipidemia Mother None Father other (Other) Father MVA - heart attack Diabetes Brother Hyperlipidemia Brother Heart Brother Asthma Son Allergies Son Allergies Son Cancer Sister 41 cervical, ?lymph Diabetes Sister Heart Brother CAD-quadruple bypass, age 46 Heart Brother CAD stent placement Social History Tobacco Use Smoking status: Never Smokeless tobacco: Never Vaping Use Vaping Use: Never used Substance Use Topics Alcohol use: No Drug use: Not Currently Types: Marijuana Objective BP 138/84 Pulse 85 Temp 36.9 C (98.4 F) (Tympanic) Resp 18 Wt 75.6 kg (166 lb 9.6 oz) LMP 05/17/2023 (Exact Date) SpO2 97% BMI 29.51 kg/m Physical Exam Vitals reviewed. Constitutional: Appearance: Normal appearance. HENT: Head: Normocephalic and atraumatic. Mouth/Throat: Mouth: Mucous membranes are moist. Pharynx: Oropharynx is clear. Cardiovascular: Rate and Rhythm: Normal rate and regular rhythm. Heart sounds: Normal heart sounds. Pulmonary: Effort: Pulmonary effort is normal. Breath sounds: Normal breath sounds. Abdominal: General: Abdomen is flat. There is no distension. Palpations: Abdomen is soft. Tenderness: There is no abdominal tenderness. There is no right CVA tenderness, left CVA tenderness or guarding. Musculoskeletal: Comments: Exam of the left shoulder reveals mild tenderness to palpation over the AC joint and subacromial bursal area. She has pain when lifting the arm past 90 degrees. She does however have full range of motion. No pain on internal or external rotation. Normal strength and sensation in the upper extremities bilaterally. Radial pulse 2+. Normal hand grasp strength. Skin: General: Skin is warm and dry. Findings: No rash. Neurological: Mental Status: She is alert. Assessment and Plan ASSESSMENT/PLAN: 1. Vomiting and diarrhea - ICD9: 787.03, 787.91, ICD10: R11.10, R19.7 (primary diagnosis) Likely viral. Discussed supportive care, brat diet, increasing fluids. She has Zofran for nausea. Follow-up if diarrhea is not improved in a week or has worsening symptoms. Patient agreeable. 2. Strain of left shoulder, initial encounter - ICD9: 840.9, ICD10: S46.912A Patient had already taken prednisone for 5 days that she had leftover without relief. She had a muscle relaxer was seem to give her some relief so I will give her a short course of this. Discussed the sedation of this. Recommended rest, ice, naproxen. If not improving follow-up with PCP. Yeison Ignacio PA-C documented in this encounter [facility] 07-13-2023 Miscellaneous Notes Patient identified by name and date of . I called and discussed urine culture results with patient. She denies current UTI symptoms. Moriah Hutchison APRN.CNP documented in this encounter [facility] 07-11-2023 Note [facility] 07-11-2023 Note [facility] 07-11-2023 Instructions Moriah Hutchison APRN.CNP - 07/11/2023 1:39 PM EDT ASSESSMENT/PLAN: 1. Acute pain of left shoulder - ICD9: 719.41, ICD10: M25.512 (primary diagnosis) - XR SHOULDER GENERAL 3V OR MORE AP/TRUE AP/OTHER LEFT Radiologist IMPRESSION: No radiographic evidence of acute osseous abnormality. Director Strategic Account Management: EVELINE Transcribe Date/Time: Jul 11 2023 1:17P Dictated by : JOHNSON ONEAL MD 2. Urinary frequency - ICD9: 788.41, ICD10: R35.0 acute - UA positive for gayle esterase, hematuria, and proteinuria - Send urine for culture - Begin treatment with Macrobid 100 mg BID for 7 days - Patient education for prevention given - UA DIP, URINE (POC) - URINE CULTURE - NITROFURANTOIN MONOHYDRATE & MACROCRYSTAL 100 MG ORAL CAP 3. Vaginal odor - ICD9: 625.8, ICD10: N89.8 - TIFFANY/TRICHOMONAS NAAT - BACTERIAL VAGINOSIS NAAT - GONORRHEA/CHLAMYDIA NAAT 4. Screening for STD (sexually transmitted disease) - ICD9: V74.5, ICD10: Z11.3 - SYPHILIS TOTAL W/REFLEX - HIV 1 2 COMBO(AG/AB),WITH REFLEX TO DIFFERENTIATION - HEPATITIS C ANTIBODY IA WITH CONFIRMATION - HEP B SURF AG SCRN - HERPES SIMPLEX TYPE 1 AND 2 IG - Follow-up with your PCP in 3-5 days if symptoms have not improved or sooner if symptoms worsen - Discussed red flags and need for immediate medical evaluation if any occur. - Discussed supportive care treatment with fluids, rest and analgesia. - Discussed expected course of illness Moriah Hutchison APRN.CLERICAL ASSOCIATE documented in this encounter [facility] 07-11-2023 History of Presen t illness Narrative Subjective Trauma Pertinent negatives include no chills or fever. Indigo Alves is a 47 year old female who presents with urinary frequency, vaginal odor and discharge, and left shoulder pain. She has had complaints for one week. Denies new sexual partners. States it has been awhile since she had STD screening so would like to have this done today. She did have a pill of diflucan called in for her but this did not seem to help. Shoulder pain has been present for one week. 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 Then yesterday she was helping a friend move and lifted a mattress and pain got worse after that. She used ice and took ibuprofen for the pain. Review of Systems Constitutional: Negative for chills and fever. Respiratory: Negative. Cardiovascular: Negative. Genitourinary: Positive for frequency. See HPI Musculoskeletal: Positive for joint pain. Negative for falls. See HPI BP 148/92 Pulse 69 Temp 36.4 C (97.5 F) Resp 21 Wt 75.7 kg (166 lb 12.8 oz) LMP 05/17/2023 (Exact Date) SpO2 98% BMI 29.55 kg/m PAST MEDICAL HISTORY Diagnosis Date Anxiety generalized anxiety & panic disorder (diagnosed by PCP) Chronic back pain mild scolosis and sciatica & SI joint locks up; was seeing pain management, now sees PCP GERD (gastroesophageal reflux disease) Hemorrhoids Hyperlipidemia 2011 Hypertension Marijuana use Vertigo PAST SURGICAL HISTORY Procedure Laterality Date ABDOMINAL SURGERY HX BREAST REDUCTION 07/2020 BREAST SURGERY HX CHOLECYSTECTOMY 2009 Cholecystectomy COLONOSCOPY 04/25/2022 repeat in 10 years EGD W/O BRSH SPEC VARICIES INJ 04/25/2022 HEMORROIDECTOMY INTERNAL 04/26/2022 INSERTION OF IUD LIG/TRNSXJ FLP TUBE ABDL/VAG APPR UNI/BI Tubal ligation SHX COSMETIC SURGERY ALLERGIES House Dust, Maple Flavor, Metronidazole, and Seasonal Allergies MEDICATIONS albuterol HFA (PROVENTIL HFA, VENTOLIN HFA) 90 mcg/actuation inhaler Inhale 2 Puffs as instructed every 6 hours as needed for wheezing/shortness of breath. Cholecalciferol, Vitamin D3, 1,000 unit cap Take 1 capsule by mouth once daily. cyclobenzaprine (FLEXERIL) 10 mg tablet Take 1 tablet by mouth three times daily as needed. Lactobacillus acidophilus (FLORAJEN ACIDOPHILUS) 20 billion cell cap Take 1 capsule by mouth once daily. levonorgestrel (MIRENA) 20 mcg/24 hours (5 yrs) 52 mg IUD 1 Each by INTRAUTERINE route as directed. lisinopril (ZESTRIL) 10 mg tablet Take 1 tablet by mouth once daily. metoprolol tartrate, short acting, (LOPRESSOR) 50 mg tablet Take 1 tablet by mouth twice daily. nitrofurantoin monohydrate and macrocrystal (MACROBID) 100 mg capsule Take 1 capsule by mouth two times a day for 7 days. Omeprazole Magnesium (PRILOSEC OTC) 20 mg tablet Take 1 tablet by mouth once daily. ondansetron orally disintegrating (ZOFRAN ODT) 4 mg disintegrating tablet Take 1 tablet by mouth every 6 hours as needed for nausea/vomiting. oxybutynin XL (DITROPAN XL) 5 mg 24 hr tablet Take 1 tablet by mouth once daily. simvastatin (ZOCOR) 10 mg tablet Take 1 tablet by mouth once daily. FAMILY HISTORY Problem Relation Age of Onset Hypertension Mother Hyperlipidemia Mother None Father other (Other) Father MVA - heart attack Diabetes Brother Hyperlipidemia Brother Heart Brother Asthma Son Allergies Son Allergies Son Cancer Sister 41 cervical, ?lymph Diabetes Sister Heart Brother CAD-quadruple bypass, age 46 Heart Brother CAD stent placement Social History Tobacco Use Smoking status: Never Smokeless tobacco: Never Vaping Use Vaping Use: Never used Substance Use Topics Alcohol use: No Drug use: Not Currently Types: Marijuana Objective Physical Exam Vitals and nursing note reviewed. Exam conducted with a pot fluxer present. Constitutional: General: She is not in acute distress. Appearance: Normal appearance. She is not ill-appearing. Cardiovascular: Rate and Rhythm: Normal rate. Pulmonary: Effort: Pulmonary effort is normal. Genitourinary: General: Normal vulva. Exam position: Lithotomy position. Labia: Right: No rash, tenderness or lesion. Left: No rash, tenderness or lesion. Vagina: Vaginal discharge present. No erythema or tenderness. Cervix: Discharge present. No friability, lesion or erythema. Skin: General: Skin is warm and dry. Neurological: Mental Status: She is alert. ASSESSMENT/PLAN: 1. Acute pain of left shoulder - ICD9: 719.41, ICD10: M25.512 (primary diagnosis) - XR SHOULDER GENERAL 3V OR MORE AP/TRUE AP/OTHER LEFT Radiologist IMPRESSION: No radiographic evidence of acute osseous abnormality. Director Strategic Account Management: EVELINE Transcribe Date/Time: Jul 11 2023 1:17P Dictated by : JOHNSON ONEAL MD 2. Urinary frequency - ICD9: 788.41, ICD10: R35.0 acute - UA positive for gayle esterase, hematuria, and proteinuria - Send urine for culture - Begin treatment with Macrobid 100 mg BID for 7 days - Patient education for prevention given - UA DIP, URINE (POC) - URINE CULTURE - NITROFURANTOIN MONOHYDRATE & MACROCRYSTAL 100 MG ORAL CAP 3. Vaginal odor - ICD9: 625.8, ICD10: N89.8 - TIFFANY/TRICHOMONAS NAAT - BACTERIAL VAGINOSIS NAAT - GONORRHEA/CHLAMYDIA NAAT 4. Screening for STD (sexually transmitted disease) - ICD9: V74.5, ICD10: Z11.3 - SYPHILIS TOTAL W/REFLEX - HIV 1 2 COMBO(AG/AB),WITH REFLEX TO DIFFERENTIATION - HEPATITIS C ANTIBODY IA WITH CONFIRMATION - HEP B SURF AG SCRN - HERPES SIMPLEX TYPE 1 AND 2 IG - Follow-up with your PCP in 3-5 days if symptoms have not improved or sooner if symptoms worsen - Discussed red flags and need for immediate medical evaluation if any occur. - Discussed supportive care treatment with fluids, rest and analgesia. - Discussed expected course of illness Moriah Hutchison APRN.CNP documented in this encounter [facility] 07-06-2023 Miscellaneous Notes Patient notified and voiced understanding. The following approved medications have been transmitted electronically. Requested Prescriptions Signed Prescriptions Disp Refills fluconazole (DIFLUCAN) 150 mg tablet 1 tablet 0 Sig: Take 1 tablet by mouth one time only for 1 dose. Authorizing Provider: INDIGO CANDELARIO Pharmacy Information Pharmacy Address Telephone [facility] Time [facility] [id number] [place] [address] Lizeth Sanchez RN Fluconazole sent. Indigo Candelario APRN.CNP Patient requesting RX for Diflucan. Having vaginal irritation and itching. States she used a cucumber coolness mask on her vagina that is meant for the face. RX pending to be sent to [facility]. Patient can not afford to purchase OTC until payday. Monique Rosa RN documented in this encounter [facility] 06-25-2023 Note [facility] 06-25-2023 Note [facility] 06-19-2023 Miscellaneous Notes Patient has been identified by name and date of : Yes Patient phones for refill(s): Requested Prescriptions Pending Prescriptions Disp Refills lisinopril (ZESTRIL) 10 mg tablet 30 tablet 1 Sig: Take 1 tablet by mouth once daily. Date of last office visit in primary care: 05/29/2023 Please advise. Thank you. Mignon Aragon LPN documented in this encounter [facility] 05-29-2023 Note [facility] 05-29-2023 Instructions Jennifer Whitfield APRN.CLERICAL ASSOCIATE - 05/29/2023 1:16 PM EDT Start lisinopril daily. Recheck in a month. Plan for labs that day. documented in this encounter [facility] 05-29-2023 History of Presen t illness Narrative This is a 47 year old female who presents today with: Patient presents with: Blood Pressure HISTORY OF PRESENT ILLNESS: Indigo Alves is a 47 year old female. Patient presents with: Blood Pressure Pt presents today with elevated blood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 daily. pregabalin (LYRICA) 25 mg capsule Take 1 capsule by mouth twice daily for 10 days. (Patient not taking: Reported on 01/24/2023) Omeprazole Magnesium (PRILOSEC OTC) 20 mg tablet Take 1 tablet by mouth once daily. No current facility-administered medications for this visit. Allergies As of Date: 02/08/2023 Allergen Noted Reaction HOUSE DUST 08/12/2020 Cough MAPLE FLAVOR 08/12/2020 Swelling METRONIDAZOLE 09/14/2022 GI Upset SEASONAL ALLERGIES 04/09/2019 Shortness of Breath Fully Assessed 02/08/2023 REVIEW OF SYSTEMS Abdomen: No bloating, early satiety, indigestion, or increased flatulence. No abdominal pain, nausea, vomiting, diarrhea, or constipation. Bladder: No dysuria, gross hematuria, urinary frequency, urinary urgency, or incontinence. Allergies and current medication updated:Yes EXAM: BP 128/72 Wt 172 lb (78.0kg) LMP 04/25/2022 GENERAL: pleasant, female in no apparent distress CHEST: Normal inspiratory effort ABDOMEN: soft, non-tender, and no masses PELVIC: external genitalia normal, normal Bartholin's glands, urethra, [place]'s glands, no vulvar lesions, no cervical lesions, good vaginal support, pink discharge present, normal appearing perineal body and perianal region. IUD strings visualized. BIMANUAL: uterus normal size, shape and consistency, no adnexal masses, and non-tender NEURO: alert and oriented x3,exam grossly non-focal ASSESSMENT/PLAN: 1. Screen for STD (sexually transmitted disease) - ICD9: V74.5, ICD10: Z11.3 (primary diagnosis) - new partner 1 week ago, condom came off. Partner having STD testing today. Discussed STD testing accuracy is best 2 to 3 weeks after. She will notify me if partners STD testing is positive for treatment to be initiated. - GC/CHLAMYDIA DNA DET - TIFFANY / TRICHOMONAS AMPLIFICATION - BACTERIAL VAGINOSIS AMPLIFICATION 2. Vaginal discharge - ICD9: 623.5, ICD10: N89.8 - GC/CHLAMYDIA DNA DET - TIFFANY / TRICHOMONAS AMPLIFICATION - BACTERIAL VAGINOSIS AMPLIFICATION Will notify of results. Follow- up as needed. Indigo Candelario APRN.CNP I spent a total of 20 minutes on the date of the service which included preparing to see the patient, [id number] patient care, completing clinical documentation, obtaining and/or reviewing separately obtained history, performing a medically appropriate examination, counseling and educating the patient/family/caregiver, and ordering medications, tests, or procedures. documented in this encounter [facility] 01-29-2023 Note HNO ID: [id number] Author: Clark Zaldivar APRN.CNP Service: ? Author Type: Nurse Practitioner Type: Progress Notes Filed: 01/29/2023 8:46 AM Note Text: Pt unable to log in and does not have working camera. Will reschedule as in person OV. [facility] 01-29-2023 History of Presen t illness Narrative Pt unable to log in and does not have working camera. Will reschedule as in person OV. documented in this encounter [facility] 01-24-2023 Note [facility] 01-24-2023 History of Presen t illness Narrative Patient presents with: Sore Throat: low grade fever x last night HPI: Feeling sick overnight. Exposed to strep throat last week. Positive symptoms: Sore throat, Fever, Malaise, Negative symptoms: Cough, Nasal Congestion, Rhinorrhea, Vomiting, Diarrhea, OTC: MEDICATIONS: Current Outpatient Medications Medication Sig Lactobacillus acidophilus (FLORAJEN ACIDOPHILUS) 20 billion cell cap Take 1 capsule by mouth once daily. Omeprazole Magnesium (PRILOSEC OTC) 20 mg tablet Take 1 tablet by mouth once daily. albuterol HFA (PROVENTIL HFA, VENTOLIN HFA) 90 mcg/actuation inhaler Inhale 2 Puffs as instructed every 6 hours as needed for wheezing/shortness of breath. ondansetron orally disintegrating (ZOFRAN ODT) 4 mg disintegrating tablet Take 1 tablet by mouth every 6 hours as needed for nausea/vomiting. metoprolol tartrate, short acting, (LOPRESSOR) 50 mg tablet Take 1 tablet by mouth twice daily. simvastatin (ZOCOR) 10 mg tablet Take 1 tablet by mouth once daily. levonorgestrel (MIRENA) 20 mcg/24 hours (5 yrs) 52 mg IUD 1 Each by INTRAUTERINE route as directed. Cholecalciferol, Vitamin D3, 1,000 unit cap Take 1 capsule by mouth once daily. pregabalin (LYRICA) 25 mg capsule Take 1 capsule by mouth twice daily for 10 days. (Patient not taking: Reported on 01/24/2023) No current facility-administered medications for this visit. ALLERGIES: ALLERGIES Allergen Reactions House Dust Cough Maple Flavor Swelling Metronidazole GI Upset Seasonal Allergies Shortness of Breath VITALS: BP 130/84 Pulse 84 Temp 36.6 C (97.9 F) Resp 16 Wt 79.4 kg (175 lb) LMP 04/25/2022 BMI 31.00 kg/m PHYSICAL EXAM: GEN: mildly ill appearing HEENT: PERRL, EOMI, conjunctiva clear Ears: canals clear. TMs without erythema, bulge, or effusion Sinuses: non-tender frontal sinus, tender maxillary sinuses Throat: moist mucous membranes, mild erythema, no exudate Neck: supple, no thyromegaly, no lymphadenopathy HEART: regular rate and rhythm, no murmurs LUNGS: clear to auscultation, no wheezes or crackles, no increased WOB ASSESSMENT/PLAN: 1. Sore throat - ICD9: 462, ICD10: J02.9 - STREP A MOLECULAR (POC) - negative - suspect viral pharyngitis, differential includes COVID-19. - Discussed supportive care treatment with rest, cold medicine, and analgesia. - Red flags to seek further treatment include chest pain, shortness of breath, and lethargy; in the ER if severe. - 2019 CORONAVIRUS Shawn Uribe MD documented in this encounter [facility] 01-16-2023 Note [facility] 01-10-2023 Miscellaneous Notes Patient asking pcp to discontinue the paxil. Reports she never took it and is doing fine now, feeling much better without paxil. Reports she just picked up medications, which are med sync- from the pharmacy, and did not realized paxil was in the bag until she returned home. States she just does not want them to keep giving it to her. documented in this encounter [facility] 01-09-2023 Note [facility] 01-09-2023 History of Presen t illness Narrative Disaster Response Director offered: Patient declines. Indigo Alves is a 47 year old female who presents for problem visit vaginal discharge and odor. HPI: Yellow discharge and odd odor when patting dry after urinating for past 4 days. 4/4 - had hymenal remnant removed by Dr Heard. She does not know if it is normal healing or an infection. No itching. No recent antibiotic OB History T0 L3 SAB0 IAB0 Ectopic0 Multiple0 Live Births0 Therapy Technician History LMP: 04/25/2022, IUD Age at Menarche: Age at First : Age at Menopause: Therapy Technician History Comments: Sexual Activity: Yes; Male Contraception: Tubal Ligation PAST MEDICAL HISTORY Diagnosis Date Anxiety generalized anxiety & panic disorder (diagnosed by PCP) Chronic back pain mild scolosis and sciatica & SI joint locks up; was seeing pain management, now sees PCP GERD (gastroesophageal reflux disease) Hemorrhoids Hyperlipidemia 2012 Hypertension Marijuana use Vertigo PAST SURGICAL HISTORY Procedure Laterality Date ABDOMINAL SURGERY HX BREAST REDUCTION 07/2020 BREAST SURGERY HX CHOLECYSTECTOMY 2010 Cholecystectomy COLONOSCOPY 04/25/2022 repeat in 10 years EGD W/O [facility] SPEC VARICIES INJ 04/25/2022 HEMORROIDECTOMY INTERNAL 04/26/2022 LIG/TRNSXJ FLP TUBE ABDL/VAG APPR UNI/BI Tubal ligation SHX COSMETIC SURGERY FAMILY HISTORY Problem Relation Age of Onset Hypertension Mother Hyperlipidemia Mother None Father other (Other) Father MVA - heart attack Diabetes Brother Hyperlipidemia Brother Heart Brother Asthma Son Allergies Son Allergies Son Cancer Sister 41 cervical, ?lymph Diabetes Sister Heart Brother CAD-quadruple bypass, age 46 Heart Brother CAD stent placement Social History Tobacco Use Smoking status: Never Smokeless tobacco: Never Vaping Use Vaping Use: Never used Substance Use Topics Alcohol use: No Drug use: Yes Types: Marijuana Current Outpatient Medications Medication Sig PARoxetine ER (PAXIL CR) 12.5 mg 24 hr tablet Take 1 tablet by mouth once daily. Lactobacillus acidophilus (FLORAJEN ACIDOPHILUS) 20 billion cell cap Take 1 capsule by mouth once daily. Omeprazole Magnesium (PRILOSEC OTC) 20 mg tablet Take 1 tablet by mouth once daily. albuterol HFA (PROVENTIL HFA, VENTOLIN HFA) 90 mcg/actuation inhaler Inhale 2 Puffs as instructed every 6 hours as needed for wheezing/shortness of breath. ondansetron orally disintegrating (ZOFRAN ODT) 4 mg disintegrating tablet Take 1 tablet by mouth every 6 hours as needed for nausea/vomiting. metoprolol tartrate, short acting, (LOPRESSOR) 50 mg tablet Take 1 tablet by mouth twice daily. simvastatin (ZOCOR) 10 mg tablet Take 1 tablet by mouth once daily. levonorgestrel (MIRENA) 20 mcg/24 hours (5 yrs) 52 mg IUD 1 Each by INTRAUTERINE route as directed. Cholecalciferol, Vitamin D3, 1,000 unit cap Take 1 capsule by mouth once daily. pregabalin (LYRICA) 25 mg capsule Take 1 capsule by mouth twice daily for 10 days. No current facility-administered medications for this visit. Allergies As of Date: 01/09/2023 Allergen Noted Reaction HOUSE DUST 08/12/2020 Cough MAPLE FLAVOR 08/12/2020 Swelling METRONIDAZOLE 09/14/2022 GI Upset SEASONAL ALLERGIES 04/09/2019 Shortness of Breath Fully Assessed 01/09/2023 REVIEW OF SYSTEMS Abdomen: No bloating, early satiety, indigestion, or increased flatulence. No abdominal pain, nausea, vomiting, diarrhea, or constipation. Bladder: No dysuria, gross hematuria, urinary frequency, urinary urgency, or incontinence. Allergies and current medication updated:Yes EXAM: BP 120/76 Wt 174 lb (78.9kg) LMP 04/25/2022 GENERAL: pleasant, female in no apparent distress CHEST: Normal inspiratory effort ABDOMEN: soft, non-tender, and no masses PELVIC: external genitalia normal, normal Bartholin's glands, urethra, [place]'s glands, no cervical lesions, good vaginal support, physiologic discharge present, normal appearing perineal body and perianal region. Area of hymenal remnant removal almost completely healed with no erythema, induration or drainage. BIMANUAL: uterus normal size, shape and consistency, no adnexal masses, and non-tender NEURO: alert and oriented x3,exam grossly non-focal ASSESSMENT/PLAN: 1. Vaginal discharge - ICD9: 623.5, ICD10: N89.8 (primary diagnosis) - BACTERIAL VAGINOSIS AMPLIFICATION - TIFFANY / TRICHOMONAS AMPLIFICATION 2. Vaginal odor - ICD9: 625.8, ICD10: N89.8 - BACTERIAL VAGINOSIS AMPLIFICATION - TIFFANY / TRICHOMONAS AMPLIFICATION 3. 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 Heard -site almost completely healed with, induration or drainage. Reassurance given. Will notify of results. Follow- up as needed. Indigo Candelario APRN.CNP Medical Decision Making: Problems: Low: Acute, uncomplicated illness or injury Data: Unique test(s) ordered: 3+ Medical Decision Making Level: 3 - Low documented in this encounter [facility] 01-02-2023 Note [facility] 01-02-2023 History of Presen t illness Narrative Disaster Response Director offered: Patient declines. Indigo Alves presents for removal of a piece of tissue inside the vagina that is bothersome to her. She states that since delivery of her children she has noticed a piece of tissue that hangs down it seems to be more sensitive. She feels like she is more prone to vaginal infections because of it. She denies any odor or discharge or bleeding from the tissue.. UNIVERSAL PROTOCOL / SAFETY CHECKLIST Procedure to be Performed: removal of hymenal remnant Sign In: A Moment of CARE was completed. Personnel directly involved with the procedure wore the appropriate PPE (Personal Protective Equipment). Patient/Surrogate Stated/Verified: PATIENT VERIFIED(optional for EMERGENT procedures): Patient name, Date of , Relevant allergies, and The intended procedure Time Out Communication: Intended patient and procedure match the source documents. Consent documented and matches the intended procedure. Sign Out: SIGN OUT (optional for EMERGENT procedures): All specimen containers correctly labeled. PROCEDURE: EXTERNAL GENITALIA: Normal in appearance without lesions VAGINA: Normal in appearance without lesions Hymenal remnant was noted to be approximately 2 cm hanging down to the perineum. 3 cc of lidocaine with epinephrine was injected after the area was cleansed with Betadine. Was grasped with pickups and removed with sterile scissors cut at the base. Hemostasis at the base of the polyp was secured with silver nitrate and pressure. Specimen was labeled and sent to pathology. Patient tolerated procedure well. Plan: Specimens labeled and sent to Pathology. Will notify patient of results in 1-2 weeks. Postprocedure instructions were reviewed. Janay Majano MD documented in this encounter [facility] 01-01-2023 Note [facility] 12-15-2022 Note [facility] 12-15-2022 History of Presen t illness Narrative FOLLOW UP VISIT - SKIN LESION NAME: Indigo [facility] NO.: [id number] DATE OF SERVICE: 12/14/2022 : 1975 REFERRING PHYSICIAN: Jaguar Cook PA-C Indigo is a patient I am following for a skin tag on her inner left labia. Indigo returns today for the procedure. Indigo has not taken aspirin or aspirin products for the past 7 days. VITALS: Blood pressure 128/80, pulse 80, temperature 36.8 C (98.2 F), weight 78.8 kg (173 lb 12.8 oz), last menstrual period 04/25/2022, SpO2 100 %. On examination, is a solitary skin tag on her inner left labia which is mildly irritated PROCEDURE: EXCISION OF SKIN TAGS The risks, benefits and anticipated outcomes of the procedure, the risks and benefits of the alternatives to the procedure, and the roles and tasks of the personnel to be involved, were discussed with the patient, and the patient consents to the procedure and agrees to proceed. I verify that I personally obtained the patient's consent. The patient`s skin was prepped and draped in the usual fashion. A combination of Lidocaine and Marcaine was injected into the skin. Tags were removed via excision/fulgration. A total of 1 skin tag was removed. These were not sent to pathology. . The patient tolerated the procedure well. Assessment IMPRESSION: Status post excision fulguration of skin tag PLAN: If the patient notes any problems or signs of wound infections, the patient should contact me immediately. Diagnoses: (L91.8) Skin tag (primary encounter diagnosis) Return to Clinic: The patient is instructed to follow-up with me as needed. Nohemi Kulkarni MD UNIVERSAL PROTOCOL / SAFETY CHECKLIST Procedure to be Performed: Removal of perineal body tag Sign In: A Moment of CARE was completed. Personnel directly involved with the procedure wore the appropriate PPE (Personal Protective Equipment). No special equipment needed. Patient/Surrogate Stated/Verified: PATIENT VERIFIED(optional for EMERGENT procedures): Patient name, Date of , Relevant allergies, and The intended procedure Time Out Communication: Intended patient and procedure match the source documents. Consent documented and matches the intended procedure. No relevant labs, photos, and/or imaging studies were applicable for review. Correct side/site marked and visible. Medications required for procedure verified. No fire risk assessment and interventions applicable. No implant(s) inserted. Sign Out: SIGN OUT (optional for EMERGENT procedures): No specimen collected. No instruments, equipment or retained foreign bodies applicable. Post-procedure follow-up management communicated and Plan of Care Visit completed when applicable. Bettina Russo RN documented in this encounter [facility] 12-14-2022 Note [facility] 12-14-2022 Instructions Bettina Russo RN - 12/14/2022 4:29 PM EDT The following instructions are important for you related to your office visit today with the [facility]. Instructions After Skin Excison and Cautery If there is minor bleeding from this skin edge, you should hold pressure on the incision until the bleeding stops. If there is continued bleeding, you should contact our office immediately. If the wound shows signs of redness, inflammation, or purulent drainage, you should contact our office immediately. After that time, you may wash the wound with gentle soap and water. The wound should not be immersed in a pool, bathtub, or even hot tub. You may take Tylenol or Ibuprofen, as needed, for pain. If you note any additional difficulties, questions, or concerns, you should contact our office immediately @ [phone] and ask to be transferred to the General Surgery department. documented in this encounter [facility] 12-14-2022 Miscellaneous Notes Patient notified of provider's instructions. Patient verbalizes understanding. She declined letter for work, she states her last day at current job is tomorrow, 12/15. Akanksha Sena RN She does not have any specific restrictions. She can do whatever she is comfortable doing. Pt. calling in. 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 Ibrahim a couple months ago ) is flaring up today and really bothering her. States she called off work because of the pain. She uses her hands at work a lot. Pt employer is requesting a letter from Dr. Ibrahim stating work limitations due to arthritis. Pt. states she is using arthritis cream, ibuprofen and wearing brace and these seem to help most days. Pt needs written letter from doctor within 48 hours. 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 Thank you. Noemy Avina RN documented in this encounter [facility] 12-13-2022 Miscellaneous Notes Patient scheduled with DM. Anny Perez RN Left message for patient to call office. Monique Rosa RN I would suggest she make an appointment with one of physicians for evaluation. Indigo Candelario APRN.CNP Patient was seen by susan Candelario 04/14/2022 and discussed possible removal of Skin tag at base of introitus. Patient is wanting to have this removed as well as a mole on left inner thigh. Can both be removed? She has had other moles removed by Dr Kulkarni in the past. Please advise documented in this encounter [facility] 12-11-2022 Miscellaneous Notes December 12, 2022 PID: [id number] Indigo lAves [birth year][address] [address] Dear Susi Renea, Your recent breast imaging exam on 12/11/2022 showed a possible finding that requires additional imaging studies for a complete evaluation. Most such findings are probably benign (not cancer). Your mammogram demonstrates that you have dense breast tissue, which could hide abnormalities. Dense breast tissue, in and of itself, is a relatively common condition. Therefore, this information is not provided to cause undue concern; rather, it is to raise your awareness and promote discussion with your health care provider regarding the presence of dense breast tissue in addition to other risk factors. If you have a healthcare provider who ordered/prescribed your screening mammogram: Please call [phone] or EXT: [phone] to schedule an appointment for your additional imaging (if you have not already done so). If you DO NOT have a healthcare provider (ie you did not have an order/prescription for your screening mammogram): Please call to schedule an appointment for your additional imaging (if you have not already done so). You must have an order/prescription from your physician when calling to schedule your appointment. If your order/prescription is not electronic, you must bring the hard copy with you on the day of your exam to avoid delays. Your imaging studies and reports are kept on file at [facility] as part of your permanent medical record, and are available for your continuing care. Thank you for allowing us to help in meeting your health care needs. Sincerely, Dr. Cornell Interpreting Radiologist [facility] (Additional imaging) documented in this encounter [facility] 12-11-2022 Note [facility] 12-11-2022 History of Presen t illness Narrative Radiology Service Progress Note PATIENT NAME: Indigo Alves DATE OF SERVICE: December 11, 2022 TIME: 11:21 AM PATIENT IDENTITY VERIFICATION COMPLETED USING TWO (2) IDENTIFIERS: Name and Date of confirmed by patient verbally. FALL SCREENING: Has the patient had 2 falls in the last year or 1 fall with injury or currently using an Ambulatory Assistive Device (Walker, Cane, Wheelchair, Crutches, etc.)? No PATIENT GENDER DATA: Female. status: : No status: NO. PATIENT RELEVANT IMPLANT DATA REVIEWED: Not Applicable RADIOLOGY DEPARTMENT: Mammography PERIPHERAL IV DATA: Not applicable SIGNED BY: Luly Iyero Robert December 11, 2022 11:21 AM documented in this encounter [facility] 12-01-2022 Note [facility] 12-01-2022 History of Presen t illness Narrative POPULATION HEALTH NAVIGATION OUTREACH Action/FYI [place] Support: Called pt to schedule an appt in Pain Management. Lvm for pt to call [phone] for scheduling. Patient Identified by Name and : NO Outreach Outcome/Action Unable to reach patient: Left message Did you use a PCP flex slot to schedule this appointment? N/A Reason for Outreach Care Gap or Scheduling/Wellness visits Payer: Payor: [facility] MEDICAID / Plan: [facility] MEDICAID / Product Type: Medicaid / Care Gap Reviewed:: Specialty Scheduling Reminder: Reminder note to check Health Maintenance for items below Health Maintenance items due: HEPATITIS B(1 of 3 - 3-dose series) Never done BP CONTROLLED (<130/80) Never done DTAP,TDAP,TD(1 - Tdap) Never done MAMMOGRAM due on 05/25/2022 DEPRESSION ASSESSMENT due on 10/01/2022 Navigation Signature: Adeola Santos December 01, 2022 10:06 AM documented in this encounter [facility] 11-30-2022 Miscellaneous Notes Taken to med recs Letter printed. Thanks, Maikol Cook PA-C documented in this encounter [facility] 11-30-2022 Note [facility] 11-16-2022 Note [facility] 11-16-2022 History of Presen t illness Narrative Episode Visit Count: 6 Therapist That Will Accept/Oversee The Plan Of Care: Lilia Murphy PT Start of Care Date: 10/17/22 Onset Date: 04/16/22 Plan of Care Certification Date: 11/07/22 Next Certification Due Date: 12/19/22 Patient Identified by Name and Date of : Yes REHABILITATION AND SPORTS THERAPY PHYSICAL THERAPY TREATMENT NOTE ASSESSMENT: Indigo Alves tolerated the session with decreased symptoms. She demonstrated improvements in form with exs and able to advance . The patient will continue to benefit from ongoing skilled physical therapy to progress toward set goals. PLAN FOR NEXT VISIT: Will increase reps of exs SUBJECTIVE: Patient Reason for Visit: Pt notes that the adjustments of exs were better Pain: Pain Pain Level: 3 Pain Location: Low Back/Lumbar Spine - Left, Low Back/Lumbar Spine - Right Description: Aching, Tightness Frequency: Continuous Post Treatment Pain Post Treatment Pain Level: No Change Post Treatment Pain Location: Low Back/Lumbar Spine - Right, Low Back/Lumbar Spine - Left OBJECTIVE MEASURES WITH LEVEL OF FUNCTION: less antalgic with transfers and hooklying today TREATMENT: Therapeutic Exercise: 1: hooklying TA 1x10 2: bridges with TA 1x10 3: isometric right hip extension at 90 degrees hip flexion 8 sec hold x3 4: standing leg lifts 2x10 5: TA with arm lifts 1x10 6: TA hooklying bent knee fall outs 1x10 7: purple rep band trunk flexion seated 1x10 8: purple rep band trunk extension 1x10 Skilled Intervention: Patient was educated in proper exercise technique and purpose for exercises. Reviewed and educated patient on additions/changes for home exercise program . Skilled judgment was provided in selection of appropriate interventions. Provided written instruction for home exercise program to facilitate proper performance and compliance. Correct performance of therapeutic exercises was facilitated with verbal and visual cuing. Patient education as noted. Home Exercise Program Assigned: 1: purple rep band trunk flexion 2: purple rep band trunk extension seated Billing Therapeutic Exercise Treatment Minutes: 34 Total Treatment Time Minutes (timed/untimed): 34 Lilia Murphy PT documented in this encounter [facility] 11-14-2022 Note [facility] 11-14-2022 History of Presen t illness Narrative Episode Visit Count: 5 Therapist That Will Accept/Oversee The Plan Of Care: Lilia Murphy PT Start of Care Date: 10/17/22 Onset Date: 04/16/22 Plan of Care Certification Date: 11/07/22 Next Certification Due Date: 12/19/22 Patient Identified by Name and Date of : Yes REHABILITATION AND SPORTS THERAPY PHYSICAL THERAPY TREATMENT NOTE ASSESSMENT: Indigo Alves tolerated the session with expected muscle soreness. She demonstrated improvements in tolerance to modification of exs.. The patient will continue to benefit from ongoing skilled physical therapy to progress toward set goals. PLAN FOR NEXT VISIT: Will add seated rep band flexion and extension as tolerated SUBJECTIVE: Patient Reason for Visit: Pt reports that she is not having success with back exs, feels sore the rest of the day after doing them Pain: Pain Pain Level: 5 Pain Location: Low Back/Lumbar Spine - Left, Low Back/Lumbar Spine - Right Description: Aching, Tightness Frequency: Continuous Post Treatment Pain Post Treatment Pain Level: No Change Post Treatment Pain Location: Low Back/Lumbar Spine - Right, Low Back/Lumbar Spine - Left Post Treatment Pain Description: Sore OBJECTIVE MEASURES WITH LEVEL OF FUNCTION: Good TA engagement TREATMENT: Therapeutic Exercise: 1: hooklying TA 1x10 2: bridges with TA 1x10 3: isometric right hip extension at 90 degrees hip flexion 8 sec hold x3 4: standing leg lifts 1x10 5: TA with arm lifts 1x10 6: TA hooklying bent knee fall outs 1x10 Skilled Intervention: Patient was educated in proper exercise technique and purpose for exercises. Reviewed and educated patient on additions/changes for home exercise program . Skilled judgment was provided in selection of appropriate interventions. Provided written instruction for home exercise program to facilitate proper performance and compliance. Correct performance of therapeutic exercises was facilitated with verbal and visual cuing. Patient education as noted. Home Exercise Program Assigned: 1: standing leg lifts 1x10 2: TA with arm lifts 1x10 3: TA hooklying bent knee fall outs 1x10 Billing Therapeutic Exercise Treatment Minutes: 35 Total Treatment Time Minutes (timed/untimed): 35 Lilia Murphy PT documented in this encounter [facility] 11-07-2022 Note [facility] 11-07-2022 Note [facility] 11-07-2022 History of Presen t illness Narrative Episode Visit Count: 4 Therapist That Will Accept/Oversee The Plan Of Care: Lilia Murphy PT Start of Care Date: 10/17/22 Onset Date: 04/16/22 Plan of Care Certification Date: 11/07/22 Next Certification Due Date: 12/19/22 Patient Identified by Name and Date of : Yes REHABILITATION AND SPORTS THERAPY PHYSICAL THERAPY PROGRESS REPORT PLAN OF CARE UPDATE: Assessment: Indigo Alves demonstrates moderate improvement in neck and shoulder pain and today low back pain assessed and added to treatment plan . She hasprogressed toward goals. Patient continues to present with impairments in ADL's, independence in exercise, strength , and symptom management that interfere with . Current prognosis is . She will benefit from continued skilled therapy services to meet the updated goals for this plan of care as noted below. Goals for Episode of Care: created on 10/17/22 through 11/28/22 updated 11/07/22 Independent in a Home Exercise Program./ partially achieved Patient will decrease pain to 1-2/10 with functional activities to allow patient to improve quality of life. in neck and low back / partially achieved for neck Sleep throughout the night without pain/symptoms/ achieved Maintain proper sitting posture throughout the session to allow for decreased pain in cervica and lumbar l region partially achieved Knowledgeable RE: prophylaxis./ partially achieved Patient will increase strength of postural and cervical and core to allow for improve ability to maintain proper posture, improve mechanics, and decrease pain/ partially achieved . Patient Goals: decrease pain Planned Interventions, Frequency, and Duration: 2x/week, 4 weeks Total Number of Visits Planned: 8 Patient to be seen for Therapeutic exercise ([id number]), Neuromuscular re-education ([id number]), Manual therapy ([id number]), Self-usp management ([id number]), Patient/Family/Caregiver Education, Body Mechanics Training PLAN FOR NEXT VISIT: will progress core strengthening SUBJECTIVE: Patient Reason for Visit: Pt reports that she found out that she thinks her hip pain is related to her back. She notes that when she is stressed she has more tightness and has to massage her neck. Pt would like to work on back and knee today. States that has pain across lower back bilaterally. sometimes right S-I snaps and pain goes into thigh anteriorly at times.. Spine History Symptoms Location at Onset: Back Symptoms Since Onset: Unchanging Pain is Worse Always: Bending (lifting, more activifies) Pain is Better Sometimes: (shifts weight to left side when right hip bothers) Sleeping Position: Side lying right, Supine Pain: Pain Pain Level: 3 (8-9/10 on bad day) Pain Location: Low Back/Lumbar Spine - Left, Low Back/Lumbar Spine - Right Description: Aching, Tightness, Sharp Frequency: Continuous Post Treatment Pain Post Treatment Pain Level: No Change PROMIS Scales Higher is Better 11/06/2022 11/06/2022 11/06/2022 Phys Func - Score - - - Phys Func - Percentile - - - Social Roles - Score - - - Social Role - Percentile - - - GH Physical - Score - - 34.9 (Poor) GH Physical - Percentile 7 % 7 % 7 % GH Mental - Score - - 38.8 (Fair) GH Mental - Percentile 13 % 13 % 13 % Self-Eff Symptom - Score - - - Self-Eff Symptom - Percentile - - - T-scores: mean of general population = 50. 5 points is clinically meaningfully difference Percentiles provide an indication of how the patient's score ranks in relation to the general population. Higher percentile rankings indicate better function/quality of life. 50th percentile is the average of the general population and indicates half of respondents had a worse score. Lower is Better 11/18/2019 04/04/2022 Fatigue - Score 74 (severe) 66 (moderate) Fatigue - Percentile 1 % 5 % T-scores: mean of general population = 50. 5 points is clinically meaningfully difference Percentiles provide an indication of how the patient's score ranks in relation to the general population. Higher percentile rankings indicate better function/quality of life. 50th percentile is the average of the general population and indicates half of respondents had a worse score. OBJECTIVE MEASURES WITH LEVEL OF FUNCTION: Posture / Alignment Sitting Posture: Good Spine Observations R Lumbar Spine Palpation Tenderness: PSIS (posterior superior iliac spine) L Lumbar Spine Palpation Tenderness: Paraspinals (increased tightness compared to right) Lumbar Spine AROM Lumbar Flexion: Minimal limitation, End range pain Lumbar Extension: Minimal limitation, End range pain Lumbar R Side-Bend: Normal Lumbar L Side-Bend: Normal Repeated Test Movements - Lumbar RFIS - Symptoms During: increases RFIS - Symptoms After: no effect DON - Symptoms After: no effect REIL - Symptoms During: no effect REIL - Symptoms After: no effect LE Flexibility Flexibility: Hamstring Flexibility R Hamstring Flexibility: 80 L Hamstring Flexibility: 80 LE Strength Trunk Strength: 4/5 Gait Gait Observation: no deviations TREATMENT: Therapeutic Exercise: 1: hooklying TA 1x10 2: bridges with TA 1x10 3: isometric right hip extension at 90 degrees hip flexion 8 sec hold x3 4: prone leg lifts 1x10 Skilled Intervention: Patient was educated in proper exercise technique and purpose for exercises. Reviewed and educated patient on additions/changes for home exercise program . Skilled judgment was provided in selection of appropriate interventions. Provided written instruction for home exercise program to facilitate proper performance and compliance. Correct performance of therapeutic exercises was facilitated with verbal and visual cuing. Patient education as noted. Home Exercise Program Assigned: 1: as outlined above for back pain Billing Therapeutic Exercise Treatment Minutes: 40 Total Treatment Time Minutes (timed/untimed): 40 Lilia Murphy PT documented in this encounter [facility] 11-06-2022 Note [facility] 11-06-2022 History of Presen t illness Narrative MyChart video visit was used for evaluation of this patient. Location of patient: [place] Patient was offered a virtual/telemedicine appointment in lieu of an office visit due to recommendations to reduce patient exposure to COVID-19. Patient is aware of limitations of performing the visit without a face to face visit in the office setting and agrees. 3:55 PM 46 year old female with c/o A lot has changed since last conversation. First time living alone, Break up with senior living partner: felt he was too negative. Have been Feeling very anxious r/t circumstance. Feeling like on Adderall, hyped up. No trouble falling asleep at 11p but was at 3:30a and fully awake CXR RLL. Completing doxycycline Feeling better, no SOB, cough improving, little sputum. HISTORIES FAMILY HISTORY Problem Relation Age of Onset Hypertension Mother Hyperlipidemia Mother None Father other (Other) Father MVA - heart attack Diabetes Brother Hyperlipidemia Brother Heart Brother Asthma Son Allergies Son Allergies Son Cancer Sister 41 cervical, ?lymph Diabetes Sister Heart Brother CAD-quadruple bypass, age 46 Heart Brother CAD stent placement PAST MEDICAL HISTORY Diagnosis Date Anxiety generalized anxiety & panic disorder (diagnosed by PCP) Chronic back pain mild scolosis and sciatica & SI joint locks up; was seeing pain management, now sees PCP GERD (gastroesophageal reflux disease) Hemorrhoids Hyperlipidemia 2011 Hypertension Marijuana use Vertigo PAST SURGICAL HISTORY Procedure Laterality Date ABDOMINAL SURGERY HX BREAST REDUCTION 07/2020 BREAST SURGERY HX CHOLECYSTECTOMY 2010 Cholecystectomy COLONOSCOPY 04/25/2022 repeat in 10 years EGD W/O BRSH SPEC VARICIES INJ 04/25/2022 HEMORROIDECTOMY INTERNAL 04/26/2022 LIG/TRNSXJ FLP TUBE ABDL/VAG APPR UNI/BI Tubal ligation SHX COSMETIC SURGERY Social History Tobacco Use Smoking status: Never Smokeless tobacco: Never Vaping Use Vaping Use: Never used Substance Use Topics Alcohol use: No Drug use: Yes Types: Marijuana Comment: last use 2 days ago ACTIVE PROBLEM LIST Anxiety State Other Acne Pain in Joint, Lower Leg Backache, Unspecified Hyperlipidemia With Target Ldl Less Than 130 Marijuana Use Other Enthesopathy of Ankle and Tarsus Peroneal Tendonitis of Right Lower Extremity Vertigo 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 Hypertension Nonorganic Sleep Disorder Sacroiliac Joint Pain Fibromyalgia Convulsion, Non-Epileptic (Hcc) Neck Pain Upper Back Pain Bilateral Shoulder Pain Other Chest Pain Palpitations Gerd (Gastroesophageal Reflux Disease) Elevated Liver Enzymes Internal Hemorrhoid Liver Nodule Adenoma of Liver Chronic Midline Low Back Pain Without Sciatica Chronic Neck Pain Lateral Epicondylitis, Right Elbow Prediabetes Current Outpatient Medications Medication Sig Dispense Refill predniSONE (DELTASONE) 10 mg tablet Take 6 pills (all at once) on day 1, 5 pills on day 2, 4 pills on day 3, 3 pills on day 4, 2 pills on day 5, and 1 pill on day 6. 21 tablet 0 pregabalin (LYRICA) 25 mg capsule Take 1 capsule by mouth twice daily for 10 days. 20 capsule 0 doxycycline monohydrate 100 mg tablet Take 1 tablet by mouth twice daily for 7 days. 20 tablet 0 meloxicam (MOBIC) 15 mg tablet Take 1 tablet by mouth once daily. 30 tablet 1 Lactobacillus acidophilus (FLORAJEN ACIDOPHILUS) 20 billion cell cap Take 1 capsule by mouth once daily. 30 capsule 11 fluticasone (FLONASE) 50 mcg/actuation nasal spray Use 2 Sprays in each nostril once daily. Rinse mouth after use. 1 Each 11 Omeprazole Magnesium (PRILOSEC OTC) 20 mg tablet Take 1 tablet by mouth once daily. 30 tablet 5 albuterol HFA (PROVENTIL HFA, VENTOLIN HFA) 90 mcg/actuation inhaler Inhale 2 Puffs as instructed every 6 hours as needed for wheezing/shortness of breath. 6.7 g 5 ondansetron orally disintegrating (ZOFRAN ODT) 4 mg disintegrating tablet Take 1 tablet by mouth every 6 hours as needed for nausea/vomiting. 10 tablet 1 metoprolol tartrate, short acting, (LOPRESSOR) 50 mg tablet Take 1 tablet by mouth twice daily. 180 tablet 3 simvastatin (ZOCOR) 10 mg tablet Take 1 tablet by mouth once daily. 30 tablet 11 levonorgestrel (MIRENA) 20 mcg/24 hours (5 yrs) 52 mg IUD 1 Each by INTRAUTERINE route as directed. 1 Each 0 Cholecalciferol, Vitamin D3, 1,000 unit cap Take 1 capsule by mouth once daily. 0 No current facility-administered medications for this visit. HEPATITIS B(1 of 3 - 3-dose series) Never done BP CONTROLLED (<130/80) Never done DTAP,TDAP,TD(1 - Tdap) Never done MAMMOGRAM due on 05/25/2022 DEPRESSION ASSESSMENT due on 10/01/2022 EXAM: LMP 04/25/2022 Pleasant adult woman in no acute distress. Alert and oriented all spheres. Euthymic, normal speech and cognition. SGoal oriented. No deficits to learning or comprehension. Speaking in full sentences easily. Looks well nourished. Oral membranes moist and pink. No cough noted. Respiration regular and unlabored. ASSESSMENT/PLAN: 1. Pneumonia of right lower lobe due to infectious organism - ICD9: 486, ICD10: J18.9 (primary diagnosis) Recheck for clearance end of the month. Clinical improved. - XR CHEST 2V FRONTAL/LAT 2. Anxiety state - ICD9: 300.00, ICD10: F41.1 Situational adjustment. Encouraged strengthening friend and family relationships. Tiral paroxetine- has use din past but had withdrawal side effects. Try CR dosing. - PAROXETINE ER 12.5 MG TABLET,EXTENDED RELEASE 24 HR 3. Perimenopausal - ICD9: 627.2, ICD10: N95.1 Trial for hot flashes - PAROXETINE ER 12.5 MG TABLET,EXTENDED RELEASE 24 HR 4:14 PM 17 minute call Jaguar Cook PA-C documented in this encounter [facility] 10-30-2022 Miscellaneous Notes Patient informed and verbalized understanding. Lizeth Escobar Add doxycycline for one week. Call if worsens at all. Recheck xray in one month TC to pt, notified of results/provider response. Pt states she has slight wheezing and pain in R ribs. Rib pain is always there, worse when lying down. She denies cough, fever, SOB. Ruben Randolph LPN Looks like still showing some changes in the right lower lobe which is where her pneumonia was. Is she having any current cough, shortness of breath or fever. Does she feel better? Let me know documented in this encounter [facility] 10-30-2022 Note [facility] 10-30-2022 Note [facility] 10-30-2022 History of Presen t illness Narrative Patient presents with: Right Hip - Pain, Established Patient Jonah Ibrahim MD Department of Orthopaedics Orthopaedics [address] [facility] [address] Dept: [phone] Dept October 30, 2022 CHIEF COMPLAINT: Pain and Established Patient of the Right Hip HPI AMB ROOMING INTAKE FLOWSHEET DATA Pain Pain Level: 8 Pain Location: Hip-Right Description: Aching, Burning, Contraction, Cramping, Numbness, Sharp, Shooting, Sore, Throbbing, Tightness, Tingling Duration Amount of Time: 24 Duration Units: Hours Frequency: Continuous Intervention/Comfort measure: Relaxation, Positioning Pain started in August 2022. ASSESSMENT: M79.604 Right leg pain (primary encounter diagnosis) M54.16 Radiculopathy, lumbar region PLAN: Based on her symptoms and cellulitis, etc., this appears more like a radicular pattern to me. Her outside hip films look rather normal, certainly would not be causing burning or tingling down the leg. She has therapy scheduled for now and in the meantime we will try some Lyrica and prednisone taper. If symptoms persist, evaluation with pain management or nonoperative spine would be appropriate. Susi Indigo Alves was advised as to contrast therapies and/or to take analgesics/anti-inflammatories as needed and all contraindications were reviewed. OBJECTIVE: Ms. Indigo Alves is a pleasant 46 year old in no apparent distress. Gen:LMP 04/25/2022 nl development, non obese, no deformities ENT: Normocephalic, normal hearing, moist mucosa CV: Pulses:DP/PT= 2+ and symmetric, capillary refill < 2 secs, no peripheral edema/varicosities Skin: no rash, bruising or lesions. Good turgor. Psych: cooperative and appropriate, alert and oriented x 3, good mood and affect. Musculoskeletal: Patient walks without antalgia. Good range of motion of the right hip with flexion and no pain with internal rotation. She has positive straight leg raise on the right. Neurovascular exams intact in lower extremity. Imaging: AP pelvis and 2 views of the right hip show maintained joint space, mild and small marginal osteophyte. Supporting Subjective Information Below: Past Surgical History: PAST SURGICAL HISTORY Procedure Laterality Date ABDOMINAL SURGERY HX BREAST REDUCTION 07/2020 BREAST SURGERY HX CHOLECYSTECTOMY 2009 Cholecystectomy COLONOSCOPY 04/25/2022 repeat in 10 years EGD W/O BRSH SPEC VARICIES INJ 04/25/2022 HEMORROIDECTOMY INTERNAL 04/26/2022 LIG/TRNSXJ FLP TUBE ABDL/VAG APPR UNI/BI Tubal ligation SHX COSMETIC SURGERY Medications: Current Outpatient Medications Medication Sig meloxicam (MOBIC) 15 mg tablet Take 1 tablet by mouth once daily. Lactobacillus acidophilus (FLORAJEN ACIDOPHILUS) 20 billion cell cap Take 1 capsule by mouth once daily. fluticasone (FLONASE) 50 mcg/actuation nasal spray Use 2 Sprays in each nostril once daily. Rinse mouth after use. Omeprazole Magnesium (PRILOSEC OTC) 20 mg tablet Take 1 tablet by mouth once daily. albuterol HFA (PROVENTIL HFA, VENTOLIN HFA) 90 mcg/actuation inhaler Inhale 2 Puffs as instructed every 6 hours as needed for wheezing/shortness of breath. ondansetron orally disintegrating (ZOFRAN ODT) 4 mg disintegrating tablet Take 1 tablet by mouth every 6 hours as needed for nausea/vomiting. metoprolol tartrate, short acting, (LOPRESSOR) 50 mg tablet Take 1 tablet by mouth twice daily. simvastatin (ZOCOR) 10 mg tablet Take 1 tablet by mouth once daily. levonorgestrel (MIRENA) 20 mcg/24 hours (5 yrs) 52 mg IUD 1 Each by INTRAUTERINE route as directed. Cholecalciferol, Vitamin D3, 1,000 unit cap Take 1 capsule by mouth once daily. predniSONE (DELTASONE) 10 mg tablet Take 6 pills (all at once) on day 1, 5 pills on day 2, 4 pills on day 3, 3 pills on day 4, 2 pills on day 5, and 1 pill on day 6. pregabalin (LYRICA) 25 mg capsule Take 1 capsule by mouth twice daily for 10 days. No current facility-administered medications for this visit. Allergies: House Dust, Maple Flavor, Metronidazole, and Seasonal Allergies ROS: General (negative for fatigue, malaise, weight loss/gain) HEENT (negative for headache, earache, recent vision changes, sinus pain, sore throat) Respiratory (no recent shortness of breath, hemoptysis) CV (negative for chest tightness, palpitations) Musculoskeletal (see HPI) Psych (no depression, anxiety) Jonah Ibrahim MD documented in this encounter [facility] 10-26-2022 Note [facility] 10-26-2022 History of Presen t illness Narrative Episode Visit Count: 3 Therapist That Will Accept/Oversee The Plan Of Care: Lilia Murphy PT Start of Care Date: 10/17/22 Onset Date: 04/16/22 Plan of Care Certification Date: 10/17/22 Next Certification Due Date: 11/28/22 Patient Identified by Name and Date of : Yes REHABILITATION AND SPORTS THERAPY PHYSICAL THERAPY TREATMENT NOTE ASSESSMENT: Indigo Alves tolerated the session with no issues. She demonstrated improvements in tolerance to increased exs. . The patient will continue to benefit from ongoing skilled physical therapy to progress toward set goals. PLAN FOR NEXT VISIT: increase reps, change to orange band SUBJECTIVE: Patient Reason for Visit: Pt reports that she did well with new exs. Pain: Pain Pain Level: 1 Pain Location: Neck - Right Description: Aching Frequency: Intermittent Pain Location 2: Elbow - Right Post Treatment Pain Post Treatment Pain Level: No Change Post Treatment Pain Location: Neck - Right OBJECTIVE MEASURES WITH LEVEL OF FUNCTION: no guarding and good ROM with shoulder exs and wrist extensor stretch TREATMENT: Therapeutic Exercise: 1: gentle isometric cervical extension 5 sec hold x5with decreased sx. 2: isometric shld IR 5 sec hold x5 3: right shoulder IR isometric ER 5 reps 5 sec hold 4: right wrist extensor stretch 15 sec x3 5: right shoulder IR with yellow band 2x10 6: yellow rep band scapular retraction 2x10 standing 7: yellow rep band shoulder extension 2x10 8: alphabet on door x1 9: flex bar elbow flexed 90 side to side and front to back 15 sec each x3 10: wand shoulder extension 2x10 Skilled Intervention: Patient was educated in proper exercise technique and purpose for exercises. Reviewed and educated patient on additions/changes for home exercise program . Skilled judgment was provided in selection of appropriate interventions. Correct performance of therapeutic exercises was facilitated with verbal and visual cuing. Patient education as noted. Home Exercise Program Assigned: 1: increase isometric IR/ER to 10 2: add rep band IR, extension, and scapular retraction with orange band Billing Therapeutic Exercise Treatment Minutes: 30 Total Treatment Time Minutes (timed/untimed): 30 Lilia Murphy PT documented in this encounter [facility] 10-26-2022 Miscellaneous Notes done New order needs filed please due to current order being future. documented in this encounter [facility] 10-24-2022 Note [facility] 10-24-2022 History of Presen t illness Narrative Episode Visit Count: 2 Therapist That Will Accept/Oversee The Plan Of Care: Lilia Murphy PT Start of Care Date: 10/17/22 Onset Date: 04/16/22 Plan of Care Certification Date: 10/17/22 Next Certification Due Date: 11/28/22 Patient Identified by Name and Date of : Yes REHABILITATION AND SPORTS THERAPY PHYSICAL THERAPY TREATMENT NOTE ASSESSMENT: Nidigo S Leeson tolerated the session with no issues. She demonstrated improvements in pain in neck and arm area today and good tolerance to exs . The patient will continue to benefit from ongoing skilled physical therapy to progress toward set goals. PLAN FOR NEXT VISIT: add rep band scapular retraction and extension SUBJECTIVE: Patient Reason for Visit: Pt reports that she is feeling good. Has been using massager as well as doing exs. Pain: Pain Pain Level: 2 Pain Location: Neck - Right Description: Aching Frequency: Continuous Additional Pain Information : Location 2 Pain Level 2: 2 Pain Location 2: Elbow - Right (shoulder right) Post Treatment Pain Post Treatment Pain Level: No Change Post Treatment Pain Location: Neck - Right Post Treatment Symptoms: slight achey after testing, no increased pain with exs OBJECTIVE MEASURES WITH LEVEL OF FUNCTION: UE AROM R Shoulder Flex: 164 Degrees R Shoulder ABduction: 168 Degrees R Shoulder Internal Rotation (Functional): 2 less left R Shoulder External Rotation (Functional): 1 less left AROM - R Distal UE: yes R Wrist Extension: 90 Degrees R Wrist Flexion: 65 Degrees L Shoulder Flex: 167 Degrees L Shoulder ABduction: 170 Degrees L Shoulder Internal Rotation (Functional): T8 L Shoulder External Rotation (Functional): T4 AROM - L Distal UE: yes L Wrist Extension: 90 Degrees L Wrist Flexion: 65 Degrees UE and Cervical Strength R UE Strength: wrist extensor strength 5/5 TREATMENT: Therapeutic Exercise: 1: gentle isometric cervical extension 5 sec hold x5with decreased sx. 2: isometric shld IR 5 sec hold x5 3: right shoulder IR isometric ER 5 reps 5 sec hold 4: right wrist extensor stretch 15 sec x3 Skilled Intervention: Patient was educated in proper exercise technique and purpose for exercises. Reviewed and educated patient on additions/changes for home exercise program . Skilled judgment was provided in selection of appropriate interventions. Provided written instruction for home exercise program to facilitate proper performance and compliance. Correct performance of therapeutic exercises was facilitated with verbal and visual cuing. Patient education as noted. Home Exercise Program Assigned: 1: as outlined above Billing Therapeutic Exercise Treatment Minutes: 24 Total Treatment Time Minutes (timed/untimed): 24 Lilia Murphy PT documented in this encounter [facility] 10-17-2022 Note [facility] 10-17-2022 Miscellaneous Notes Detailed message left for pt to schedule appt Images from the original note were not included. Jaguar Cook PA-C P Wstr Aydee Peña Please schedule in office f/u on RLL pneumonia and right hip pain Thanks, Maikol Cook PA-C documented in this encounter [facility] 10-17-2022 History of Presen t illness Narrative Episode Visit Count: 1 Therapist That Will Accept/Oversee The Plan Of Care: Lilia Murphy PT Start of Care Date: 10/17/22 Onset Date: 04/16/22 Plan of Care Certification Date: 10/17/22 Next Certification Due Date: 11/28/22 Patient Identified by Name and Date of : Yes REHABILITATION AND SPORTS THERAPY PHYSICAL THERAPY EVALUATION PLAN OF CARE: Assessment: Indigo Alves presents with chief complaint of right cervical pain as well as shoulder and elbow pain that interferes with nothing (maybe sleeping) . she requested to have neck checked out today She presents with impairments in independence in exercise, posture, strength , and symptom management. . Prognosis for therapy is Good due to: current objective clinical presentation . She will benefit from skilled therapy services to meet the goals established for this plan of care as noted below. Goals for Episode of Care: created on 10/17/22 through 11/28/22 Independent in a Home Exercise Program. Patient will decrease pain to 1-2/10 with functional activities to allow patient to improve quality of life. Sleep throughout the night without pain/symptoms. Maintain proper sitting posture throughout the session to allow for decreased pain in cervical region Knowledgeable RE: prophylaxis. Patient will increase strength of postural and cervical mm to allow for improve ability to maintain proper posture, improve mechanics, and decrease pain. Patient Goals: decrease pain Planned Interventions, Frequency, and Duration: Current Frequency: 2x/week Duration: 4 weeks Total Number of Visits Planned: 8 Planned Treatment Interventions: Therapeutic exercise (55298);Neuromuscular re-education (60524);Manual therapy (25215);Self-usp management (63513);Patient/Family/Caregiver Education;Ultrasound (34975) PLAN FOR NEXT VISIT: Will assess right elbow and shoulder for ROm/ strength pain Patient demonstrates good understanding of plan of care and treatment. The above goals and plan of care were discussed and agreed upon by patient/family. SUBJECTIVE: Indigo Alvse is a 46 year old female seen today for Pt notes pain in right side of neck that has been there as long as she can remember. Has had therapy in past pain is sometimes in shoulder. Pt also reports pain in right elbow and also shoulder . Will address in future visits. Patient Goals: decrease pain Functional Limitations: nothing (maybe sleeping) Prior Level of Function: Independent without limitations Relevant History Right or Left Handed: Right Employment: [employer]: See Comment [employer] Occupation: [employer] Environment Patient Lives With: Self/Alone Intake Information: Prescription present Previous Treatment: Physical Therapy ;Heat ;Ice ;Muscle relaxer ;NSAIDs Spine History Symptoms Since Onset: Unchanging Pain is Worse Always: (sleeping) Pain is Better Sometimes: As the day progresses Sleeping Position: Side lying right Pain: Pain Pain Level: 4 Pain Location: Neck - Right Description: Aching Frequency: Continuous Post Treatment Pain Post Treatment Pain Level: Worse (more localized soreness, felt good during treatment) Post Treatment Pain Location: Neck - Right PROMIS Scales Higher is Better 01/24/2022 04/04/2022 08/09/2022 Phys Func - Score - 36 (moderate dysfunction) - Phys Func - Percentile - 8 % - Social Roles - Score - 35 (moderate dysfunction) - Social Role - Percentile - 7 % - GH Physical - Score 42.3 (Good) - 34.9 (Poor) GH Physical - Percentile 22 % - 7 % GH Mental - Score 38.8 (Fair) - 36.3 (Fair) GH Mental - Percentile 13 % - 9 % Self-Eff Symptom - Score - 37 (Low) - Self-Eff Symptom - Percentile - 10 % - T-scores: mean of general population = 50. 5 points is clinically meaningfully difference Percentiles provide an indication of how the patient's score ranks in relation to the general population. Higher percentile rankings indicate better function/quality of life. 50th percentile is the average of the general population and indicates half of respondents had a worse score. Lower is Better 11/18/2019 04/04/2022 Fatigue - Score 74 (severe) 66 (moderate) Fatigue - Percentile 1 % 5 % T-scores: mean of general population = 50. 5 points is clinically meaningfully difference Percentiles provide an indication of how the patient's score ranks in relation to the general population. Higher percentile rankings indicate better function/quality of life. 50th percentile is the average of the general population and indicates half of respondents had a worse score. OBJECTIVE MEASURES WITH LEVEL OF FUNCTION: Posture / Alignment Posture: Forward head;Rounded shoulders Sitting Posture: Fair Effects of Posture Correction: no change Spine Observations R Cervical Spine Palpation Tenderness: Suboccipitals;Paraspinals R Thoracic Spine Palpation Tenderness: Rhomboid Cervical Spine ROM Cervical ROM : Measurement AROM Cervical Retraction AROM (cm) : (WNL, pain at end range) Cervical Flexion AROM (degrees) : 50 Degrees Cervical Extension AROM (degrees) : 50 Degrees Cervical Side-Bend Right AROM (degrees): 35 Degrees Cervical Side-Bend Left AROM (degrees) : 40 Degrees Cervical Rotation Right AROM (degrees) : 74 Degrees Cervical Rotation Left AROM (degrees) : 65 Degrees Special Tests - Cervical Cervical Special Tests: Cervical Distraction Cervical Distraction: Positive (for relief) Education: Education Learning Preferences: Demonstration;Explanation;Perfor sangeetha;Printed Materials Barriers: None Learning/educational needs: Home exercise program;Plan of Care Education Provided: Yes, see treatment interventions for education provided Education Provided To: Patient Education Mode/Type: Demonstration;Explanation/Discus mahi;Literature/Printed Materials;Performance Response to Education/Teach Back: States/Identifies;Return Demonstration TREATMENT: PT Treatment Interventions: Therapeutic Exercise;Manual Therapy Evaluation Therapeutic Exercise: 1: gentle isometric cervical extension 5 sec hold x3 with decreased sx. Skilled Intervention: Patient was educated in proper exercise technique and purpose for exercises. Skilled judgment was provided in selection of appropriate interventions. Provided written instruction for home exercise program to facilitate proper performance and compliance. Correct performance of therapeutic exercises was facilitated with verbal and visual cuing. Patient education as noted. Manual Therapy: Manual Traction: cerivcal wtih pillow in supine gentle continuous for 1 min x5 with relief, manual usboccipital release x5 min. Skilled Intervention: Manual skills to improve joint mobility, ROM, and decrease pain. Utilized anatomy knowledge of the therapist, and assessment of patient's response to intervention. Home Exercise Program Assigned: as outlined above Billing * Evaluation Low Complexity: 1 Unit Therapeutic Exercise Treatment Minutes: 10 Manual TherapyTreatment Minutes: 10 Lilia Murphy PT documented in this encounter [facility] documented as of this encounter (statuses as of 01/02/2023) [facility] History of Past illness Narrative* Problem Noted Date Resolved Date Chronic midline low back pain without sciatica 0 10/17/2022 01/01/2023 Chronic neck pain 10/17/2022 01/01/2023 Lateral epicondylitis, right elbow 10/17/2022 01/01/2023 Acute pain of right shoulder 04/05/202211/2021 HTN (hypertension) 05/29/2012 04/04/2016 documented as of this encounter (statuses as of 01/09/2023) [facility] History of Past illness Narrative* Problem Noted Date Resolved Date Chronic midline low back pain without sciatica 0 10/17/2022 01/01/2023 Chronic neck pain 10/17/2022 01/01/2023 Lateral epicondylitis, right elbow 10/17/2022 01/01/2023 Acute pain of right shoulder 04/05/202211/2021 HTN (hypertension) 05/29/2012 04/04/2016 documented as of this encounter (statuses as of 01/11/2023) [facility] History of Past illness Narrative* Problem Noted Date Resolved Date Chronic midline low back pain without sciatica 0 10/17/2022 01/01/2023 Chronic neck pain 10/17/2022 01/01/2023 Lateral epicondylitis, right elbow 10/17/2022 01/01/2023 Acute pain of right shoulder 04/05/202211/2021 HTN (hypertension) 05/29/2012 04/04/2016 documented as of this encounter (statuses as of 01/24/2023) [facility] History of Past illness Narrative* Problem Noted Date Resolved Date Chronic midline low back pain without sciatica 0 10/17/2022 01/01/2023 Chronic neck pain 10/17/2022 01/01/2023 Lateral epicondylitis, right elbow 10/17/2022 01/01/2023 Acute pain of right shoulder 04/05/202211/2021 HTN (hypertension) 05/29/2012 04/04/2016 documented as of this encounter (statuses as of 01/29/2023) [facility] History of Past illness Narrative* Problem Noted Date Resolved Date Chronic midline low back pain without sciatica 0 10/17/2022 01/01/2023 Chronic neck pain 10/17/2022 01/01/2023 Lateral epicondylitis, right elbow 10/17/2022 01/01/2023 Acute pain of right shoulder 04/05/202211/2021 HTN (hypertension) 05/29/2012 04/04/2016 documented as of this encounter (statuses as of 02/08/2023) [facility] History of Past illness Narrative* Problem Noted Date Resolved Date Chronic midline low back pain without sciatica 0 10/17/2022 01/01/2023 Chronic neck pain 10/17/2022 01/01/2023 Lateral epicondylitis, right elbow 10/17/2022 01/01/2023 Acute pain of right shoulder 04/05/202211/2021 HTN (hypertension) 05/29/2012 04/04/2016 documented as of this encounter (statuses as of 03/01/2023) [facility] History of Past illness Narrative* Problem Noted Date Resolved Date Chronic midline low back pain without sciatica 0 10/17/2022 01/01/2023 Chronic neck pain 10/17/2022 01/01/2023 Lateral epicondylitis, right elbow 10/17/2022 01/01/2023 Acute pain of right shoulder 04/05/202211/2021 HTN (hypertension) 05/29/2012 04/04/2016 documented as of this encounter (statuses as of 03/06/2023) [facility] History of Past illness Narrative* Problem Noted Date Resolved Date Chronic midline low back pain without sciatica 0 10/17/2022 01/01/2023 Chronic neck pain 10/17/2022 01/01/2023 Lateral epicondylitis, right elbow 10/17/2022 01/01/2023 Acute pain of right shoulder 04/05/20222 HTN (hypertension) 05/29/2012 04/04/2016 documented as of this encounter (statuses as of 03/13/2023) [facility] History of Past illness Narrative* Problem Noted Date Resolved Date Chronic midline low back pain without sciatica 0 10/17/2022 01/01/2023 Chronic neck pain 10/17/2022 01/01/2023 Lateral epicondylitis, right elbow 10/17/2022 01/01/2023 Acute pain of right shoulder 04/05/202211/2021 HTN (hypertension) 05/29/2012 04/04/2016 documented as of this encounter (statuses as of 03/15/2023) [facility] History of Past illness Narrative* Problem Noted Date Resolved Date Chronic midline low back pain without sciatica 0 10/17/2022 01/01/2023 Chronic neck pain 10/17/2022 01/01/2023 Lateral epicondylitis, right elbow 10/17/2022 01/01/2023 Acute pain of right shoulder 04/05/202211/2021 HTN (hypertension) 05/29/2012 04/04/2016 documented as of this encounter (statuses as of 03/15/2023) [facility] History of Past illness Narrative* Problem Noted Date Resolved Date Chronic midline low back pain without sciatica 0 10/17/2022 01/01/2023 Chronic neck pain 10/17/2022 01/01/2023 Lateral epicondylitis, right elbow 10/17/2022 01/01/2023 Acute pain of right shoulder 04/05/202211/2021 HTN (hypertension) 05/29/2012 04/04/2016 documented as of this encounter (statuses as of 03/15/2023) [facility] History of Past illness Narrative* Problem Noted Date Resolved Date Chronic midline low back pain without sciatica 0 10/17/2022 01/01/2023 Chronic neck pain 10/17/2022 01/01/2023 Lateral epicondylitis, right elbow 10/17/2022 01/01/2023 Acute pain of right shoulder 04/05/202211/2021 HTN (hypertension) 05/29/2012 04/04/2016 documented as of this encounter (statuses as of 03/20/2023) [facility] History of Past illness Narrative* Problem Noted Date Resolved Date Chronic midline low back pain without sciatica 0 10/17/2022 01/01/2023 Chronic neck pain 10/17/2022 01/01/2023 Lateral epicondylitis, right elbow 10/17/2022 01/01/2023 Acute pain of right shoulder 04/05/202211/2021 HTN (hypertension) 05/29/2012 04/04/2016 documented as of this encounter (statuses as of 03/20/2023) [facility] History of Past illness Narrative* Problem Noted Date Resolved Date Chronic midline low back pain without sciatica 0 10/17/2022 01/01/2023 Chronic neck pain 10/17/2022 01/01/2023 Lateral epicondylitis, right elbow 10/17/2022 01/01/2023 Acute pain of right shoulder 04/05/202211/2021 HTN (hypertension) 05/29/2012 04/04/2016 documented as of this encounter (statuses as of 03/21/2023) [facility]01-17-2023 History of Past illness Narrative* Problem Noted Date Resolved Date Chronic midline low back pain without sciatica 0 10/17/2022 01/01/2023 Chronic neck pain 10/17/2022 01/01/2023 Lateral epicondylitis, right elbow 10/17/2022 01/01/2023 Acute pain of right shoulder 04/05/202211/2021 HTN (hypertension) 05/29/2012 04/04/2016 documented as of this encounter (statuses as of 03/21/2023) [facility]01[facility] History of Past illness Narrative* Problem Noted Date Diagnosed Date Resolved Date Chronic midline low back mikhail n without sciatica 10/17/2022 01/01/2023 Chronic neck pain 10/17/2022 01/01/2023 Lateral epicondylitis, right elbow 10/17/2022 01/01/2023 Acute pain of right shoulder 04/05/2022 07/03/2022 HTN (hypertension) 05/29/2012 6 documented as of this encounter (statuses as of 04/10/2023) [facility]01-17-2023 History of Past illness Narrative* Problem Noted Date Diagnosed Date Resolved Date Chronic midline low back mikhail n without sciatica 10/17/2022 01/01/2023 Chronic neck pain 10/17/2022 01/01/2023 Lateral epicondylitis, right elbow 10/17/2022 01/01/2023 Acute pain of right shoulder 04/05/2022 07/03/2022 HTN (hypertension) 05/29/2012 6 documented as of this encounter (statuses as of 04/16/2023) [facility]01-17-2023 History of Past illness Narrative* Problem Noted Date Diagnosed Date Resolved Date Chronic midline low back mikhail n without sciatica 10/17/2022 01/01/2023 Chronic neck pain 10/17/2022 01/01/2023 Lateral epicondylitis, right elbow 10/17/2022 01/01/2023 Acute pain of right shoulder 04/05/2022 07/03/2022 HTN (hypertension) 05/29/2012 6 documented as of this encounter (statuses as of 04/17/2023) [facility]01-17-2023 History of Past illness Narrative* Problem Noted Date Diagnosed Date Resolved Date Chronic midline low back mikhail n without sciatica 10/17/2022 01/01/2023 Chronic neck pain 10/17/2022 01/01/2023 Lateral epicondylitis, right elbow 10/17/2022 01/01/2023 Acute pain of right shoulder 04/05/2022 07/03/2022 HTN (hypertension) 05/29/2012 6 documented as of this encounter (statuses as of 04/19/2023) [facility]01-17-2023 History of Past illness Narrative* Problem Noted Date Diagnosed Date Resolved Date Chronic midline low back mikhail n without sciatica 10/17/2022 01/01/2023 Chronic neck pain 10/17/2022 01/01/2023 Lateral epicondylitis, right elbow 10/17/2022 01/01/2023 Acute pain of right shoulder 04/05/2022 07/03/2022 HTN (hypertension) 05/29/2012 6 documented as of this encounter (statuses as of 04/23/2023) [facility]01-17-2023 History of Past illness Narrative* Problem Noted Date Diagnosed Date Resolved Date Chronic midline low back mikhail n without sciatica 10/17/2022 01/01/2023 Chronic neck pain 10/17/2022 01/01/2023 Lateral epicondylitis, right elbow 10/17/2022 01/01/2023 Acute pain of right shoulder 04/05/2022 07/03/2022 HTN (hypertension) 05/29/2012 6 documented as of this encounter (statuses as of 05/17/2023) [facility]01[facility]17[facility]20[facility] History of Past illness Narrative* Problem Noted Date Diagnosed Date Resolved Date Chronic midline low back mikhail n without sciatica 10/17/2022 01/01/2023 Chronic neck pain 10/17/2022 01/01/2023 Lateral epicondylitis, right elbow 10/17/2022 01/01/2023 Acute pain of right shoulder 04/05/2022 07/03/2022 HTN (hypertension) 05/29/2012 6 documented as of this encounter (statuses as of 05/18/2023) [facility]01[facility]17[facility]20[facility] History of Past illness Narrative* Problem Noted Date Diagnosed Date Resolved Date Chronic midline low back mikhail n without sciatica 10/17/2022 01/01/2023 Chronic neck pain 10/17/2022 01/01/2023 Lateral epicondylitis, right elbow 10/17/2022 01/01/2023 Acute pain of right shoulder 04/05/2022 07/03/2022 HTN (hypertension) 05/29/2012 6 documented as of this encounter (statuses as of 05/23/2023) [facility]01-17-2023 History of Past illness Narrative* Problem Noted Date Diagnosed Date Resolved Date Chronic midline low back mikhail n without sciatica 10/17/2022 01/01/2023 Chronic neck pain 10/17/2022 01/01/2023 Lateral epicondylitis, right elbow 10/17/2022 01/01/2023 Acute pain of right shoulder 04/05/2022 07/03/2022 HTN (hypertension) 05/29/2012 6 documented as of this encounter (statuses as of 05/29/2023) [facility]01-17-2023 History of Past illness Narrative* Problem Noted Date Diagnosed Date Resolved Date Chronic midline low back mikhail n without sciatica 10/17/2022 01/01/2023 Chronic neck pain 10/17/2022 01/01/2023 Lateral epicondylitis, right elbow 10/17/2022 01/01/2023 Acute pain of right shoulder 04/05/2022 07/03/2022 HTN (hypertension) 05/29/2012 6 documented as of this encounter (statuses as of 06/19/2023) [facility]01[facility]20[facility] History of Past illness Narrative* Problem Noted Date Diagnosed Date Resolved Date Chronic midline low back mikhail n without sciatica 10/17/2022 01/01/2023 Chronic neck pain 10/17/2022 01/01/2023 Lateral epicondylitis, right elbow 10/17/2022 01/01/2023 Acute pain of right shoulder 04/05/2022 07/03/2022 HTN (hypertension) 05/29/2012 6 documented as of this encounter (statuses as of 07/07/2023) [facility]01-17-2023 History of Past illness Narrative* Problem Noted Date Diagnosed Date Resolved Date Chronic midline low back mikhail n without sciatica 10/17/2022 01/01/2023 Chronic neck pain 10/17/2022 01/01/2023 Lateral epicondylitis, right elbow 10/17/2022 01/01/2023 Acute pain of right shoulder 04/05/2022 07/03/2022 HTN (hypertension) 05/29/2012 6 documented as of this encounter (statuses as of 07/11/2023) [facility]01-17-2023 History of Past illness Narrative* Problem Noted Date Diagnosed Date Resolved Date Chronic midline low back mikhail n without sciatica 10/17/2022 01/01/2023 Chronic neck pain 10/17/2022 01/01/2023 Lateral epicondylitis, right elbow 10/17/2022 01/01/2023 Acute pain of right shoulder 04/05/2022 07/03/2022 HTN (hypertension) 05/29/2012 6 documented as of this encounter (statuses as of 07/13/2023) [facility]01-17-2023 History of Past illness Narrative* Problem Noted Date Diagnosed Date Resolved Date Chronic midline low back mikhail n without sciatica 10/17/2022 01/01/2023 Chronic neck pain 10/17/2022 01/01/2023 Lateral epicondylitis, right elbow 10/17/2022 01/01/2023 Acute pain of right shoulder 04/05/2022 07/03/2022 HTN (hypertension) 05/29/2012 6 documented as of this encounter (statuses as of 07/19/2023) [facility]01-17-2023 History of Past illness Narrative* Problem Noted Date Diagnosed Date Resolved Date Chronic midline low back mikhail n without sciatica 10/17/2022 01/01/2023 Chronic neck pain 10/17/2022 01/01/2023 Lateral epicondylitis, right elbow 10/17/2022 01/01/2023 Acute pain of right shoulder 04/05/2022 07/03/2022 HTN (hypertension) 05/29/2012 6 documented as of this encounter (statuses as of 07/25/2023) [facility]01[facility]17-20[facility] History of Past illness Narrative* Problem Noted Date Diagnosed Date Resolved Date Chronic midline low back mikhail n without sciatica 10/17/2022 01/01/2023 Chronic neck pain 10/17/2022 01/01/2023 Lateral epicondylitis, right elbow 10/17/2022 01/01/2023 Acute pain of right shoulder 04/05/2022 07/03/2022 HTN (hypertension) 05/29/2012 6 documented as of this encounter (statuses as of 07/26/2023) [facility]01-17-2023 History of Past illness Narrative* Problem Noted Date Diagnosed Date Resolved Date Chronic midline low back mikhail n without sciatica 10/17/2022 01/01/2023 Chronic neck pain 10/17/2022 01/01/2023 Lateral epicondylitis, right elbow 10/17/2022 01/01/2023 Acute pain of right shoulder 04/05/2022 07/03/2022 HTN (hypertension) 05/29/2012 6 documented as of this encounter (statuses as of 07/27/2023) [facility]01-17-2023 History of Past illness Narrative* Problem Noted Date Diagnosed Date Resolved Date Chronic midline low back mikhail n without sciatica 10/17/2022 01/01/2023 Chronic neck pain 10/17/2022 01/01/2023 Lateral epicondylitis, right elbow 10/17/2022 01/01/2023 Acute pain of right shoulder 04/05/2022 07/03/2022 HTN (hypertension) 05/29/2012 6 documented as of this encounter (statuses as of 08/05/2023) [facility]01-17-2023 History of Past illness Narrative* Problem Noted Date Diagnosed Date Resolved Date Chronic midline low back mikhail n without sciatica 10/17/2022 01/01/2023 Chronic neck pain 10/17/2022 01/01/2023 Lateral epicondylitis, right elbow 10/17/2022 01/01/2023 Acute pain of right shoulder 04/05/2022 07/03/2022 HTN (hypertension) 05/29/2012 6 documented as of this encounter (statuses as of 08/05/2023) [facility]01-17-2023 History of Past illness Narrative* Problem Noted Date Diagnosed Date Resolved Date Chronic midline low back mikhail n without sciatica 10/17/2022 01/01/2023 Chronic neck pain 10/17/2022 01/01/2023 Lateral epicondylitis, right elbow 10/17/2022 01/01/2023 Acute pain of right shoulder 04/05/2022 07/03/2022 HTN (hypertension) 05/29/2012 6 documented as of this encounter (statuses as of 08/05/2023) [facility]01-17-2023 History of Past illness Narrative* Problem Noted Date Diagnosed Date Resolved Date Chronic midline low back mikhail n without sciatica 10/17/2022 01/01/2023 Chronic neck pain 10/17/2022 01/01/2023 Lateral epicondylitis, right elbow 10/17/2022 01/01/2023 Acute pain of right shoulder 04/05/2022 07/03/2022 HTN (hypertension) 05/29/2012 6 documented as of this encounter (statuses as of 08/31/2023) [facility]01-17-2023 History of Past illness Narrative* Problem Noted Date Diagnosed Date Resolved Date Chronic midline low back mikhail n without sciatica 10/17/2022 01/01/2023 Chronic neck pain 10/17/2022 01/01/2023 Lateral epicondylitis, right elbow 10/17/2022 01/01/2023 Acute pain of right shoulder 04/05/2022 07/03/2022 HTN (hypertension) 05/29/2012 6 documented as of this encounter (statuses as of 09/07/2023) [facility]01-17-2023 History of Past illness Narrative* Problem Noted Date Diagnosed Date Resolved Date Chronic midline low back mikhail n without sciatica 10/17/2022 01/01/2023 Chronic neck pain 10/17/2022 01/01/2023 Lateral epicondylitis, right elbow 10/17/2022 01/01/2023 Acute pain of right shoulder 04/05/2022 07/03/2022 HTN (hypertension) 05/29/2012 6 documented as of this encounter (statuses as of 09/09/2023) [facility]01-17-2023 Miscellaneous Notes* Telephone Encounter - Indigo Hutchinson Ma - 10/17/2022 12:56 PM EST Patient added to appointment wait list. * Telephone Encounter - Emilia Lunsford LPN - 10/17/2022 12:46 PM EST Patient called states is having hip pain and would like to be put on the waiting list, has appointment for 10/30/22 and would like sooner if possible. Thank you. Indigo# [phone] documented in this encounterPrem[facility] History of Present illness Narrative* Jonah Ibrahim, MD - 10/09/2022 9:05 AM EST Patient presents with: Right Hand - New, Pain: CTS Jonah Ibrahim MD Department of Orthopaedics [facility] [address] [place] [address] Dept: [phone] Dept October 09, 2022 CHIEF COMPLAINT: New and Pain of the Right Hand (CTS) HPI Pt with right wrist/thumb pain, relieved with wrist splint. Pt is right hand dominant. AMB ROOMING INTAKE FLOWSHEET DATA Risk Screening Do you have concerns about personal safety or safety in the home?: No Pain Pain Level: 7 Pain Location: Wrist-Right Description: Sharp, Aching Duration Amount of Time: 1 Duration Units: Years Frequency: Intermittent Intervention/Comfort measure: Splinting Comments: wrist brace ASSESSMENT: M18.11 Primary osteoarthritis of first carpometacarpal joint of right hand (primary encounter diagnosis) PLAN: Her exam and now xrays are a bit more consistent with thumb pain from OA. We'll try an NSAID and some splinting. FOLLOW UP INSTRUCTIONS: As needed. Ms. Indigo Alves was advised as to contrast therapies and/or to take analgesics/anti-inflammatoriesas needed and all contraindications were reviewed. OBJECTIVE: Ms. Indigo Alves is a pleasant 46 year old in no apparent distress. Gen:LMP 04/25/2022 nl development, non obese, no deformities ENT: Normocephalic, normal hearing, moist mucosa CV: Pulses:Radial= 2+ and symmetric, capillary refill < 2 secs, no peripheral edema/varicosities Skin: no rash, bruising or lesions. Good turgor. Psych: cooperative and appropriate, alert and oriented x 3, good mood and affect. Musculoskeletal: Right hand with mild swelling at the basal joint. TTP at the dorsal capsule of the thumb as well. Pain with Grind, but not too much crepitus. NV exam intact. Neg. Tinel's, mildly positive MNCT. IMAGING: Supporting Subjective Information Below: Past Medical History: PAST MEDICAL HISTORY Diagnosis Date Anxiety generalized anxiety & panic disorder (diagnosed by PCP) Chronic back pain mild scolosis and sciatica & SI joint locks up; was seeing pain management, now sees PCP GERD (gastroesophageal reflux disease) Hemorrhoids Hyperlipidemia 2012 Hypertension Marijuana use Vertigo Past Surgical History: PAST SURGICAL HISTORY Procedure Laterality Date ABDOMINAL SURGERY HX BREAST REDUCTION 07/2020 BREAST SURGERY HX CHOLECYSTECTOMY 2010 Cholecystectomy COLONOSCOPY 04/25/2022 repeat in 10 years EGD W/O BRSH SPEC VARICIES INJ 04/25/2022 HEMORROIDECTOMY INTERNAL 04/26/2022 LIG/TRNSXJ FLP TUBE ABDL/VAG APPR UNI/BI Tubal ligation SHX COSMETIC SURGERY Family History: FAMILY HISTORY Problem Relation Age of Onset Hypertension Mother Hyperlipidemia Mother None Father other (Other) Father MVA - heart attack Diabetes Brother Hyperlipidemia Brother Heart Brother Asthma Son Allergies Son Allergies Son Cancer Sister 41 cervical, ?lymph Diabetes Sister Heart Brother CAD-quadruple bypass, age 46 Heart Brother CAD stent placement Social History: Social History Tobacco Use Smoking status: Never Smokeless tobacco: Never Vaping Use Vaping Use: Never used Substance Use Topics Alcohol use: No Drug use: Yes Types: Marijuana Comment: last use 2 days ago Medications: Current Outpatient Medications Medication Sig Lactobacillus acidophilus (FLORAJEN ACIDOPHILUS) 20 billion cell cap Take 1 capsule by mouth once daily. fluticasone (FLONASE) 50 mcg/actuation nasal spray Use 2 Sprays in each nostril once daily. Rinse mouth after use. Omeprazole Magnesium (PRILOSEC OTC) 20 mg tablet Take 1 tablet by mouth once daily. albuterol HFA (PROVENTIL HFA, VENTOLIN HFA) 90 mcg/actuation inhaler Inhale 2 Puffs as instructed every 6 hours as needed for wheezing/shortness of breath. ondansetron orally disintegrating (ZOFRAN ODT) 4 mg disintegrating tablet Take 1 tablet by mouth every 6 hours as needed for nausea/vomiting. metoprolol tartrate, short acting, (LOPRESSOR) 50 mg tablet Take 1 tablet by mouth twice daily. simvastatin (ZOCOR) 10 mg tablet Take 1 tablet by mouth once daily. levonorgestrel (MIRENA) 20 mcg/24 hours (5 yrs) 52 mg IUD 1 Each by INTRAUTERINE route as directed. Cholecalciferol, Vitamin D3, 1,000 unit cap Take 1 capsule by mouth once daily. meloxicam (MOBIC) 15 mg tablet Take 1 tablet by mouth once daily. No current facility-administered medications for this visit. Allergies: House Dust, Maple Flavor, Metronidazole, and Seasonal Allergies ROS: General (negative for fatigue, malaise, weight loss/gain) HEENT (negative for headache, earache, recent vision changes, sinus pain, sore throat) Respiratory (no recent shortness of breath, hemoptysis) CV (negative for chest tightness, palpitations) Musculoskeletal (see HPI) Psych (no depression, anxiety) REFERRING PHYSICIAN: Consultation requested by Johnna Martinez for an opinion regarding right hand/thumb pain. My final recommendations will be communicated back to the requesting physician by way of shared Medical record or letter to requesting physician via US mail. Johnna Martinez [address] [facility] [address] [address] Nicolette Cook PA-C [address] [facility] [id number] Jonah Ibrahim MD documented in this encounterPrem[facility]12-30-[facility]22 Miscellaneous Notes* Telephone Encounter - Lizeth Sanchez RN - 09/29/2022 9:06 AM EST Patient notified and voiced understanding. The following approved medications have been transmitted electronically. Requested Prescriptions Signed Prescriptions Disp Refills fluconazole (DIFLUCAN) 150 mg tablet 1 tablet 0 Sig: Take 1 tablet by mouth one time only for 1 dose. Authorizing Provider: KARINA GOLD Pharm[facility] Information [id number] [address] [place] [address] Lizeth Sanchez RN * Telephone Encounter - Karina Gold APRN.CNM - 09/29/2022 8:58 AM EST Order signed. Karina Gold APRN.CNM * Telephone Encounter - Mary Oliver LPN - 09/29/2022 8:55 AM EST Patient taking an antibiotic for respiratory infection and c/o vaginal itching w/ discharge. Statesthat she gets frequent yeast infections. Patient does not want to use monistat and requesting diflucan documented in this encounterPremier Health [facility]12-22-2022 History of Present illness Narrative* Jaguar Cook PA-C - 09/21/2022 3:58 PM EST MyChart video visit was used for evaluation of this patient. Location of patient: [place] Patient was offered a virtual/telemedicine appointment in lieu of an office visit due to recommendations to reduce patient exposure to COVID-19. Patient is aware of limitations of performing the visit without a face to face visit in the office setting and agrees. 3:58 PM 46 year old female with c/o Persistent sinus congestion Temp today 100.3F today. Persistent dry throat Cough with clear mucus now, was green. Some pressure above eyebrows, not too bad. Using Flonase 2-3 times a day. Hx allergy to dust. Some wheeze. Fiancee has URI. Some diarrhea x 5-6 today: fluffy pieces with some watery. Nausea, no vomiting. Wheezing if lays down any time during the day. No labored breathing. Daughter was tested + for flu-A also ill with URI. Was seen in [facility] for hand pain Given referral for ortho Right wrist: CTS on exam Sharp pain across base of thumb with movement. Not dropping anything, adequate strength. Trouble turning a allen, hurts in thumb over thenar eminence. Fingertips, whole hand , thumb white with spots on hand white like no circulation, then looks purple, thumb to wrist. HISTORIES FAMILY HISTORY Problem Relation Age of Onset Hypertension Mother Hyperlipidemia Mother None Father other (Other) Father MVA - heart attack Diabetes Brother Hyperlipidemia Brother Heart Brother Asthma Son Allergies Son Allergies Son Cancer Sister 41 cervical, ?lymph Diabetes Sister Heart Brother CAD-quadruple bypass, age 46 Heart Brother CAD stent placement PAST MEDICAL HISTORY Diagnosis Date Anxiety generalized anxiety & panic disorder (diagnosed by PCP) Chronic back pain mild scolosis and sciatica & SI joint locks up; was seeing pain management, now sees PCP GERD (gastroesophageal reflux disease) Hemorrhoids Hyperlipidemia 2011 Hypertension Marijuana use Vertigo PAST SURGICAL HISTORY Procedure Laterality Date ABDOMINAL SURGERY HX BREAST REDUCTION 07/2020 BREAST SURGERY HX CHOLECYSTECTOMY 2010 Cholecystectomy COLONOSCOPY 04/25/2022 repeat in 10 years EGD W/O BRSH SPEC VARICIES INJ 04/25/2022 HEMORROIDECTOMY INTERNAL 04/26/2022 LIG/TRNSXJ FLP TUBE ABDL/VAG APPR UNI/BI Tubal ligation SHX COSMETIC SURGERY Social History Tobacco Use Smoking status: Never Smokeless tobacco: Never Vaping Use Vaping Use: Never used Substance Use Topics Alcohol use: No Drug use: Yes Types: Marijuana Comment: last use 2 days ago ACTIVE PROBLEM LIST Anxiety State Other Acne Pain in Joint, Lower Leg Backache, Unspecified Hyperlipidemia With Target Ldl Less Than 130 Marijuana Use Other Enthesopathy of Ankle and Tarsus Peroneal Tendonitis of Right Lower Extremity Vertigo 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 Hypertension Nonorganic Sleep Disorder Sacroiliac Joint Pain Fibromyalgia Convulsion, Non-Epileptic (Hcc) Neck Pain Upper Back Pain Bilateral Shoulder Pain Other Chest Pain Palpitations Gerd (Gastroesophageal Reflux Disease) Elevated Liver Enzymes Internal Hemorrhoid Liver Nodule Adenoma of Liver Current Outpatient Medications Medication Sig Dispense Refill Lactobacillus acidophilus (FLORAJEN ACIDOPHILUS) 20 billion cell cap Take 1 capsule by mouth once daily. 30 capsule 11 fluticasone (FLONASE) 50 mcg/actuation nasal spray Use 2 Sprays in each nostril once daily. Rinse mouth after use. 1 Each 11 Omeprazole Magnesium (PRILOSEC OTC) 20 mg tablet Take 1 tablet by mouth once daily. 30 tablet 5 albuterol HFA (PROVENTIL HFA, VENTOLIN HFA) 90 mcg/actuation inhaler Inhale 2 Puffs as instructed every 6 hours as needed for wheezing/shortness of breath. 6.7 g 5 ondansetron orally disintegrating (ZOFRAN ODT) 4 mg disintegrating tablet Take 1 tablet by mouth every 6 hours as needed for nausea/vomiting. 10 tablet 1 metoprolol tartrate, short acting, (LOPRESSOR) 50 mg tablet Take 1 tablet by mouth twice daily. 180tablet 3 simvastatin (ZOCOR) 10 mg tablet Take 1 tablet by mouth once daily. 30 tablet 11 levonorgestrel (MIRENA) 20 mcg/24 hours (5 yrs) 52 mg IUD 1 Each by INTRAUTERINE route as directed.1 Each 0 Cholecalciferol, Vitamin D3, 1,000 unit cap Take 1 capsule by mouth once daily. 0 No current facility-administered medications for this visit. HEPATITIS B(1 of 3 - 3-dose series) Never done BP CONTROLLED (<130/80) Never done DTAP,TDAP,TD(1 - Tdap) Never done MAMMOGRAM due on 05/25/2022 EXAM: LMP 04/25/2022 Pleasant adult woman in no acute distress. Alert and oriented all spheres. Normal affect and cognition. Speech normal. No deficits to learning or comprehension. Speaking in full sentences easily. Color appears normal. Moist mucous membranes. Non-tender on self palpation sinus, cervical lymph node areas. No cough, wheezing,retractions noted. Moving easily. ASSESSMENT/PLAN: 1. Flu-like symptoms - ICD9: 780.99, ICD10: R68.89 Instructed on masking, distancing, pushing fluids, good nutrition. - COVID WITH FLUA+B, ROUTINE 2. Wheezing - ICD9: 786.07, ICD10: R06.2 Patient feels significant though description is minor. Proceed with prednisone- discussed cautions with this due to possible influenza and immune suppression. - PREDNISONE 20 MG TABLET 4:23 PM 25 minute call See orders and/or patient instructions. Patient ( or Guardian) expressed understanding of instructions on review. Jaguar Cook PA-C documented in this encounterPremier Health [facility]12-15-2022 Instructions* Patient Instructions* Johnna Martinez PA-C - 09/14/2022 4:38 PM EST CARPAL TUNNEL SYNDROME Excessive repetitive movements of the arms, wrists or hands can cause injuries that could become chronic conditions. When detected early enough, however, hand- wrist injuries can be treated, and recovery is possible in a few months. Severe hand injuries can also be treated, but recovery may take up to a year or longer. This handout summarizes one of the most common hand problems: carpal tunnel syndrome. It also includes a brief summary of some of the conditions often associated with carpal tunnel syndrome. What is carpal tunnel syndrome? The carpal tunnel is the passageway in the hand made up of the median nerve, tendons and the carpalbones (eight bones in the wrist). Carpal tunnel syndrome occurs when the nerve passing through the wrist (called the median nerve) becomes pinched by irritated, swollen tendons. The swollen tendons put pressure on the median nerve where it passes through the gap under a ligament in front of the wrist. This pressure causes numbness and pain in the middle fingers. What are the symptoms of carpal tunnel syndrome? Usually, people with carpal tunnel syndrome first notice that their fingers fall asleep and become numb at night -- they often wake up with numbness and tingling in their hands. Burning pain is frequently associated with this feeling of numbness, and it generally runs up the center of the person s forearm, sometimes as far as the shoulder. As carpal tunnel syndrome becomes more severe, symptoms are noticed during the day. What happens in severe cases of carpal tunnel syndrome? When chronic irritation occurs around the median nerve, it becomes constricted and is continually pushed against the ligament above it. When the median nerve in the hand is continually constricted, it can become compressed to the point that it begins to deteriorate. This results in a slowed transmittal of nerve impulses which may cause a loss of feeling in the fingers and a loss of muscle function at the base of the thumb. If the condition is not treated, it could result in a deterioration of muscle tissue. Do certain conditions make people more likely to develop carpal tunnel syndrome? Yes. People with diabetes or metabolic conditions may be more likely to develop carpal tunnel syndrome. These conditions affect the nerves directly, making the nerves more vulnerable to compression. How is carpal tunnel syndrome treated? Treatment first involves adjusting the way the person performs the repetitive motion by: * Changing the frequency with which the person performs the motion. * Changing the amount of time the person rests between periods of performing the motion. * Treatment also includes immobilizing the wrist in a splint to minimize or prevent pressure on thenerves. Splints which support the wrist in a comfortable neutral position can be of great value if worn at night to relieve painful numbness or tingling. Patients may be given short courses of anti-inflammatory drugs or injections of cortisone or steroids in their wrist to reduce swelling. Injections are usually temporary and are best reserved for people who have carpal tunnel syndrome as a result of an acute(sharp or severe) flare-up of tenosynovitis (an inflammation of the sheath around the tendon). Injections are also used to treat people who have an inflammatory disease, such as rheumatoid arthritis. If carpal tunnel syndrome does not respond to conservative treatment, then surgery is the next treatment option. During surgery, your doctor will open the carpal tunnel and cut the ligament at the bottom of the wrist, relieving the pressure. Carpal tunnel surgery is quite effective whenthe condition only involves nerve constriction. Relief of painful symptoms is excellent and nerve degeneration is almost always reversible. When carpal tunnel syndrome is just one manifestation of Cumulative Trauma Disorder, the results of surgery are not always so good. The difficulty is not in recovering from the operation, but in recovering the ability to return to work, especially to the samejob which caused the repetitive disorder to occur. Whether or not true carpal tunnel symptoms recurin these patients, many continue to have pain and are unable to use their hands to any great extent. What tests can help your doctor diagnose carpal tunnel syndrome? Often, an electromyogram which includes nerve conduction studies is done to document the extent of nerve damage. An electromyogram is a test that measures the electrical activity in your nerves and muscles. The nerve conduction studies measure the ability of specific nerves to transmit electrical impulses, or messages, to muscles. The nerve conduction studies, however, will not become positive until there is significant nerve damage (degeneration). In addition, the severity of a person s symptoms are often not correlated with the findings of a nerve conduction study. The best diagnostic test for carpal tunnel syndrome is the Phalen maneuver of wrist flexion, created by Dr. Tavares many yearsago when he was the hand surgeon at the [facility]. What are some conditions that are often associated with carpal tunnel syndrome? DE QUERVAIN'S DISEASE: One very frequent condition seen in clerical workers and in patients who continuously perform pinching maneuvers is De Quervain's disease. This is a stenosing tenosynovitis (aninflammation of the sheath around the tendon resulting from constriction of tendon motion) which occurs at the base of the thumb. If it is not possible to treat this condition by preventing the strain, it can usually be treated with splinting and anti-inflammatory medication. Usually, a splint is used which holds the base of the thumb but allows motion in the fingers. Persistent cases are treatedwith an injection of steroid medication into the compartment around the tendon. This is generally a very successful method of treatment, but there is a relatively high incidence of recurrence becauseof the persistent mechanical problem. Generally, surgery is reserved for patients who cannot function reasonably after they have received repeated conservative treatment. One complication of surgery is pain due to scar tissue that surrounds the branch of the radial nerve, which runs directly over the thumb tendon. TRIGGER FINGER: Another form of stenosing tenosynovitis is the trigger finger . This occurs around the flexor tendons, generally in the palm where the first jimenez exists. The patient develops a chronic thickening due to inflammation underneath this jimenez, and the tendon then becomes rough on the surface (forming a nodule). As this roughening develops, there is a disparity in the space which is present, and the tendon just can't get back and forth through this tight compartment. This results in snapping at first, with flexion (decreased movement of the finger). If the condition becomes severe enough, the finger can become locked . This occurs because the nodule which develops on the tendon passes through the jimenez with flexion, and then can't be passively stretched back out again with extension. If the condition is very mild, splinting and anti-inflammatory medications can be very effective. However, if enough thickening has developed, it is usually necessary to inject steroid medications to dissolve some of the thickened fluid which is deposited on the tendon. If the condition becomes significantly chronic to the point that thickening of the jimenez develops, then it will not respond to injection of laya roid medications. In this case, surgery must be performed to release the jimenez. CARPAL TUNNEL SYNDROME THE [place] [id number] [email or web address] . . . . . . . . . . DEPARTMENT OF PLASTIC AND RECONSTRUCTIVE SURGERY SECTION OF PLASTIC SURGERY [facility] INDEPENDENCE: [phone] [facility]: [place] [address] . . . . . . . . . . Hearing Impaired (TTY) Assistance The [facility] 2003 Rev. 01/2004 E A Shyam L Z . B R JUANA N Adebayo , Jaguar Workman N Bonnie Rodriguez E S documented in this encounterPrem[facility]12-15-[facility]22 History of Present illness Narrative* Johnna Martinez PA-C - 09/14/2022 4:05 PM EST Images from the original note were not included. Subjective HPI HPI Indigo Alves is a 46 year old female who presents today for CC of progressive right hand pain (pointing to base of right thumb) x 1-2 months, but has gotten much worse in the past week. Describedas a sharp pain that occurs with certain motions. Does note tingling in R hand as well. Notes that she has tendonitis and she's currently in therapy for right shoulder. that started Symptoms are worsened by trying to open a jar, also notes difficulty gripping silverware and writing, etc. Pt has tried bracing it, and using aleve and ibuprofen, with minimal relief in symptoms. BP 134/82 Pulse 93 Temp 36.6 C (97.9 F) (Tympanic) Resp 18 Wt 79.8 kg (176 lb) LMP 04/25/2022 SpO2 97% BMI 31.18 kg/m ALLERGIES Allergen Reactions House Dust Cough Maple Flavor Swelling Metronidazole GI Upset Seasonal Allergies Shortness of Breath ACTIVE PROBLEM LIST Anxiety State Other Acne Pain in Joint, Lower Leg Backache, Unspecified Hyperlipidemia With Target Ldl Less Than 130 Marijuana Use Other Enthesopathy of Ankle and Tarsus Peroneal Tendonitis of Right Lower Extremity Vertigo 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 Hypertension Nonorganic Sleep Disorder Sacroiliac Joint Pain Fibromyalgia Convulsion, Non-Epileptic (Hcc) Neck Pain Upper Back Pain Bilateral Shoulder Pain Other Chest Pain Palpitations Gerd (Gastroesophageal Reflux Disease) Elevated Liver Enzymes Internal Hemorrhoid Liver Nodule Adenoma of Liver Family History Problem Relation Age of Onset Hypertension Mother Hyperlipidemia Mother None Father other (Other) Father MVA - heart attack Diabetes Brother Hyperlipidemia Brother Heart Brother Asthma Son Allergies Son Allergies Son Cancer Sister 41 cervical, ?lymph Diabetes Sister Heart Brother CAD-quadruple bypass, age 46 Heart Brother CAD stent placement Social History Tobacco Use Smoking status: Never Smokeless tobacco: Never Vaping Use Vaping Use: Never used Substance Use Topics Alcohol use: No Drug use: Yes Types: Marijuana Comment: last use 2 days ago Review of Systems Constitutional: Negative for chills, fever and malaise/fatigue. Musculoskeletal: Positive for joint pain. Negative for falls. Skin: Negative for rash. Objective BP 134/82 Pulse 93 Temp 36.6 C (97.9 F) (Tympanic) Resp 18 Wt 79.8 kg (176 lb) LMP 04/25/2022 SpO2 97% BMI 31.18 kg/m Physical Exam Musculoskeletal: Right wrist: Tenderness present. Right hand: Swelling (Mild to moderate swelling overlying R thenar eminence) and tenderness present. Hands: Comments: +Tinel's R side - negative phalen's ASSESSMENT/PLAN: 1. Right hand pain - ICD9: 729.5, ICD10: M79.641 (primary diagnosis) PE findings and clinical history c/w carpal tunnel syndrome. Advised night splinting, avoiding exacerbating/repetitive activities, and continuing with NSAIDs PRN. Will give alternative cock up splintin office today (as hers does not immobilize the thumb well). Ortho consult placed for further evaluation and management. - CONSULT TO ORTHOPAEDICS 2. Right wrist pain - ICD9: 719.43, ICD10: M25.531 See above - CONSULT TO ORTHOPAEDICS Pt advised to see PCP if symptoms persist or progress. Reviewed red flags with patient and when to seek care sooner. The patient indicates understanding of these issues and agrees with the plan. Johnna Martinez PA-C documented in this encounterPremier Health [facility]12-14-2022 Miscellaneous Notes* Telephone Encounter - Anny Perez RN - 09/13/2022 10:18 AM EST Requested Prescriptions Pending Prescriptions Disp Refills Lactobacillus acidophilus (FLORAJEN ACIDOPHILUS) 20 billion cell cap 30 capsule 11 Sig: Take 1 capsule by mouth once daily. RX INSTRUCTIONS: Patient aware RX will be sent to pharmacy. No need to notify patient. Anny Perez RN documented in this encounterPremier Health [facility] Center12-09-2022 History of Present illness Narrative* Nohemi Kulkarni MD - 09/08/2022 10:00 AM EST FOLLOW UP VISIT - ENDOSCOPY NAME: Indigo [facility] NO.: [id number] DATE OF SERVICE: September 07, 2022 : 1975 REFERRING PHYSICIAN: Jaguar Cook PA-C Indigo is a patient I am following for symptomatic grade 3 hemorrhoids heartburn. I performed upper and lower endoscopy on April 25, 2022. The patient was found to have gastritis along with was felt to be distal esophagitis. There was a polyp in the rectum but otherwise colonoscopy was unremarkable. Pathology demonstrated: FINAL DIAGNOSIS A. Stomach, antrum, biopsy: - Gastric antral mucosa with no diagnostic abnormalities. B. Esophagus, distal, biopsy: - Reactive squamous and gastric cardiac-type mucosa, negative for intestinal metaplasia. C. Rectum, polyp, polypectomy: - Inflammatory-type polyp. The patient then underwent examination under anesthesia and hemorrhoidectomy on April 26, 2022. 3 quadrant hemorrhoidectomy was performed. Pathology demonstrated: FINAL DIAGNOSIS A. Hemorrhoid , right anterior, excision: -Anal mucosa and submucosa with hemorrhoidal varices. B. Hemorrhoid , right posterior, excision: -Anal mucosa and submucosa with hemorrhoidal varices. C. Hemorrhoid , left lateral, excision: -Anal mucosa and submucosa with hemorrhoidal varices. She initially noted pain as to be expected following the procedure. She initially thought she was having standard postsurgical pain but now notes on the left lateral complex a 1 cm tender nodule consistent external tag/hemorrhoid. She wishes to have this removed. Performed excision of that tag in later May. Since that time the patient still notes a degree of perianal nodularity although certainly no prolapsing tissue like before. She still however notes anal itching and anal discomfort. This is particularly problematic after bowel movements. She notes that she has to press on the area in order to get the pain to go away and the Dibucaine is not helping. She is wondering if there is any more surgicalprocedures to be performed currently VITALS: Blood pressure 130/88, pulse 109, temperature 36.3 C (97.3 F), height 160 cm (5' 3 ), weight 78.9 kg (174 lb), last menstrual period 04/25/2022, SpO2 97 %. On examination, there expected postoperative changes without additional prolapsing tissue. The analcanal is tight but otherwise healing well. Assessment IMPRESSION: Gastritis, reflux, status post hemorrhoidectomy, decision of residual nodule PLAN: I discussed continuing sitz baths and Dibucaine ointment. If there is itching I recommend keeping the area dry with either an antifungal powder or anti-itch type medications. You were found to have a hyperplastic colon polyp. I recommend you undergo repeat endoscopy in 10 years. If you note bleeding, change in bowel habits, or other suspicious colon related symptoms before that time, those symptoms should be evaluated as necessary. I nena with her that postsurgical remodeling occurs 4 months afterwards and given the fact that I performed excisions and the anal canal was somewhat tight I would do nothing different at this time. Diagnoses: (K64.2) Grade III hemorrhoids (primary encounter diagnosis) Return to Clinic: The patient is instructed to follow-up with me in one month. Nohemi Kulkarni MD documented in this encounterPremier Health [facility] Center12-07-2022 Miscellaneous Notes* Telephone Encounter - Jaguar Cook PA-C - 09/06/2022 2:16 PM EST See other orders/ TE. Maikol Cook PA-C documented in this encounterPremier Health [facility] Center12-07-2022 Miscellaneous Notes* Telephone Encounter - LAZARA Lira - 09/06/2022 11:04 AM EST 1st attempt: LVM for patient to call and schedule appointment. * Telephone Encounter - Jaguar Cook PA-C - 09/05/2022 5:32 PM EST Telephone on 09/05/22 CONSULT TO PHYSICAL THERAPY Chronic midline low back pain without sciatica (primary encounter diagnosis) Chronic neck pain Lateral epicondylitis, right elbow She has been seen by me and Jeimy for these issues. Thanks, Maikol Cook PA-C documented in this encounterPremier Health [facility] Center11-29-2022 Miscellaneous Notes* Telephone Encounter - Mignon Aragon LPN - 08/29/2022 2:18 PM EST Patient notified. Verbalized understanding. States [facility] likely [facility] to [facility]. * Telephone Encounter - Jaguar Cook PA-C - 08/29/2022 12:52 PM EST Schedule appointment or go to [facility]. Push fluids, avoid milk products. Maikol Love PA-C * Telephone Encounter - Denise Daley Pss - 08/28/2022 4:09 PM EST Patient is still waiting since this morning. Please call her as soon as sarahbile; call [phone]. * Telephone Encounter - Lana Comer RN - 08/28/2022 9:18 AM EST Pt called in and reports she still has the headache, but not as bad as when she went to the hospital. She states she is still having diarrhea about 6-8 times a day, and has gone twice this morning. She denies having a fever. She states today she did wake up with a sore throat. Please call and advise. documented in this encounterPremier Health [facility] Center11-29-2022 Miscellaneous Notes* Telephone Encounter - Jaguar Cook PA-C - 08/29/2022 12:51 PM EST The following approved medication requests have been transmitted electronically. Requested Prescriptions Signed Prescriptions Disp Refills fluticasone (FLONASE) 50 mcg/actuation nasal spray 1 Each 11 Sig: Use 2 Sprays in each nostril once daily. Rinse mouth after use. Authorizing Provider: Jaguar COOK PA-C * Telephone Encounter - Mae Pendleton RN - 08/29/2022 8:41 AM EST Patient calls to check on status of request. Patient reports that she continues to have a headache that OTC medications doesn't seem to being helping completely. She reports sinus pain/pressure as well as sore throat and diarrhea. Afebrile. Mae Pendleton RN * Telephone Encounter - Denise Daley Pss - 08/28/2022 4:11 PM EST Indigo Mccracken Bubbabelinda is calling Jaguar Cook PA-C today to request Medication, not on the current list: fluticasone (FLONASE) 50 mcg/actuation nasal spray. Please send to [facility] on file. Patient has been identified by name and birthdate. Person calling: self Call patient at: on cell [phone] (home) [phone] (cell) Was an appointment scheduled: No Closing statement: Results or non-symptom based questions: Thank you for calling [facility], your call will be returned within the next business day. Denise Daley Pss documented in this encounterPremier Health [facility] Valley [facility] Center11-25-2022 Miscellaneous Notes* Telephone Encounter - Lilia Marrero Ma - 08/25/2022 4:25 PM EST Took generic aleve today and that relieved her symptoms currently. Asking if you are going to call in rx? * Telephone Encounter - Jaguar Cook PA-C - 08/25/2022 4:[address] showed martin-sinusitis ( all sinuses both sides). This may have been from virus given hx with nausea and diarrhea. How is she doing today? Thanks, Maikol Cook PA-C * Telephone Encounter - Lo Sheppard LPN - 08/25/2022 12:27 PM EST Patient calling, asking if the results of the CT were sent to him and asking what they said. Statesthat she was not able to stay [facility] hospital and wait for the results. She is been having some vision disturbances in her right eye and then the headaches come. States that she had a family member tell her that was a sx of some other family that have been diagnosed withMS. Patient asking if she should be concerned about this and wondering if PCP would want to do any further testing to rule out MS. Please advise. documented in this encounterPremier Health [facility] Center11-23-2022 Miscellaneous Notes* Telephone Encounter - Mimi Moody RN - 08/23/2022 10:05 AM EST Triage protocol advised: ER now. Pt agreeable. Pt requested this nurse call her employer [employer] and speak to Chirsta and to inform Christa that pt has been advised to go to ER based on protocol and symptoms. This was completed. Will send message to Dr. Lizama due to Maikol Cook out of office today. Reason for Disposition [1] SEVERE headache (e.g., excruciating) AND [2] worst headache of life Answer Assessment - Initial Assessment Questions Pt calling to state she has had a migraine for 5 days. States this is the worst headache she has had in her life. Reports blurry vision in right eye. Has tried tylenol, 800 mg ibuprofen and muscle relaxer with no effect. Denies numbness or weakness in face or one part of body. Denies feeling confused, Walking without difficulty. 1. LOCATION: head top and back 2. ONSET: 5 days 3. PATTERN: constant 4. SEVERITY: 10 out of 10 5. RECURRENT SYMPTOM: Reports has had headaches before but not like this 6. CAUSE: pt not sure 7. MIGRAINE: has had before but not as severe 8. HEAD INJURY: no 9. OTHER SYMPTOMS: +nausea, +diarrhea today; 2-3 episodes, feels warm but has not checked temp, , +stiff neck, + mild bilateral eye pain, no sore throat, denies cold symptoms 10. : no Protocols used: [id number] documented in this encounterPremier Health [facility] Center11-15-2022 History of Present illness Narrative* JOE Rodriguez-Leni - 08/15/2022 4:58 PM EST 46 year old female with c/o right knee pain 08/09/2022 distance visit Jennifer Whitfield CNP A couple of months ago, she hit her knee hard. On and off problems with the knee. Ice/heat. Taking ibuprofen 800 mg. Will get some pain in the left outer knee, but most of the pain in the in the left behind the knee. No redness. Does not feel any lumps or bumps. Refers that she will kind of limp around at work. She can physically feel it swelling. Refers that if she has to bend/stand back up, will get stabbing in the posterior aspect and will get achy in the front of the knee. Occ will get popping if she stretches out. No recent giving out. Refers that previous problems with the knee. [place] better for some time, but then started having a lot of similar symptoms after hitting her knee. She has been having ongoing right shoulder pain. She had just started PT when she had surgery and then couldn't continue PT. She would like to return to PT. Concerned that she may end up needing an MRI to r/o more serious problems with the shoulder. US for DVT scheduled for Sunday: patient states being done for possible Merchant's cyst. Has no swelling or calf pain. icing Ibuprofen 800mg every 8h w food which helps Mostly here for work excuse. HISTORIES FAMILY HISTORY Problem Relation Age of Onset Hypertension Mother Hyperlipidemia Mother None Father other (Other) Father MVA - heart attack Diabetes Brother Hyperlipidemia Brother Heart Brother Asthma Son Allergies Son Allergies Son Cancer Sister 41 cervical, ?lymph Diabetes Sister Heart Brother CAD-quadruple bypass, age 46 Heart Brother CAD stent placement PAST MEDICAL HISTORY Diagnosis Date Anxiety generalized anxiety & panic disorder (diagnosed by PCP) Chronic back pain mild scolosis and sciatica & SI joint locks up; was seeing pain management, now sees PCP GERD (gastroesophageal reflux disease) Hemorrhoids Hyperlipidemia 2011 Hypertension Marijuana use Vertigo PAST SURGICAL HISTORY Procedure Laterality Date ABDOMINAL SURGERY HX BREAST REDUCTION 07/2020 BREAST SURGERY HX CHOLECYSTECTOMY 2009 Cholecystectomy COLONOSCOPY 04/25/2022 repeat in 10 years EGD W/O BRSH SPEC VARICIES INJ 04/25/2022 HEMORROIDECTOMY INTERNAL 04/26/2022 LIG/TRNSXJ FLP TUBE ABDL/VAG APPR UNI/BI Tubal ligation SHX COSMETIC SURGERY Social History Tobacco Use Smoking status: Never Smokeless tobacco: Never Vaping Use Vaping Use: Never used Substance Use Topics Alcohol use: No Drug use: Yes Types: Marijuana Comment: last use 2 days ago ACTIVE PROBLEM LIST Anxiety State Other Acne Pain in Joint, Lower Leg Backache, Unspecified Hyperlipidemia With Target Ldl Less Than 130 Marijuana Use Other Enthesopathy of Ankle and Tarsus Peroneal Tendonitis of Right Lower Extremity Vertigo 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 Hypertension Nonorganic Sleep Disorder Sacroiliac Joint Pain Fibromyalgia Convulsion, Non-Epileptic (Hcc) Neck Pain Upper Back Pain Bilateral Shoulder Pain Other Chest Pain Palpitations Gerd (Gastroesophageal Reflux Disease) Elevated Liver Enzymes Internal Hemorrhoid Liver Nodule Current Outpatient Medications Medication Sig Dispense Refill Lactobacillus acidophilus (FLORAJEN ACIDOPHILUS) 20 billion cell cap Take 1 capsule by mouth once daily. 30 capsule 0 Omeprazole Magnesium (PRILOSEC OTC) 20 mg tablet Take 1 tablet by mouth once daily. 30 tablet 5 albuterol HFA (PROVENTIL HFA, VENTOLIN HFA) 90 mcg/actuation inhaler Inhale 2 Puffs as instructed every 6 hours as needed for wheezing/shortness of breath. 6.7 g 5 ibuprofen (MOTRIN) 800 mg tablet Take 1 tablet by mouth every 8 hours as needed (FOR PAIN. TAKE WITH FOOD). 60 tablet 2 ondansetron orally disintegrating (ZOFRAN ODT) 4 mg disintegrating tablet Take 1 tablet by mouth every 6 hours as needed for nausea/vomiting. 10 tablet 1 metoprolol tartrate, short acting, (LOPRESSOR) 50 mg tablet Take 1 tablet by mouth twice daily. 180tablet 3 simvastatin (ZOCOR) 10 mg tablet Take 1 tablet by mouth once daily. 30 tablet 11 levonorgestrel (MIRENA) 20 mcg/24 hours (5 yrs) 52 mg IUD 1 Each by INTRAUTERINE route as directed.1 Each 0 Cholecalciferol, Vitamin D3, 1,000 unit cap Take 1 capsule by mouth once daily. 0 No current facility-administered medications for this visit. HEPATITIS B(1 of 3 - 3-dose series) Never done BP CONTROLLED (<130/80) Never done DTAP,TDAP,TD(1 - Tdap) Never done DEPRESSION ASSESSMENT Never done MAMMOGRAM due on 05/25/2022 EXAM: BP 138/98 Pulse 71 Resp 16 Wt 79.4 kg (175 lb) LMP 04/25/2022 SpO2 98% BMI 31.00 kg/m Pleasant overweight adult woman in no acute distress. Alert and oriented all spheres. Normal affectand cognition. Speech normal. No deficits to learning or comprehension. Skin warm, dry, pink to lips and nailbeds. Normal turgor. Respirations regular and unlabored. Chest is normal shape. Lungs are clear to all [place] with good air exchange through out. HRRR without murmur or gallop. No lifts, heaves, or rubs. Extrem: no clubbing or cyanosis. Edema: none. Extremities are warm and pink with prompt capillary refill. Bilateral knees without evidence of anterior swelling or popliteal swelling, no evidence of Merchant'scyst. Patient has relatively full range of motion to about 125 degrees of flexion with approximately 0 degrees of extension, does complain slightly of positive bounce test. No laxity to varus or valgus stress, anterior drawer, Garret, Rubia, Thessaly tests. Patient has no tenderness in posterior calves or medial thighs on either side. With full flexion of knees with leg lift patient does have marked difference in muscle bulk in the right lateral leg being less than the left lateral leg. She also exhibits laxity right knee With lateral pressure. ASSESSMENT/PLAN: 1. Patellofemoral arthralgia of right knee - ICD9: 719.46, ICD10: M25.561 At this point patient shows neither signs of DVT nor of Merchant's cyst. 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 I suggested that started problems with handout provided from [facility] PDF on I did place a consult for physical therapy to evaluate knees as well as shoulders. Her shoulders are actually doing better. At this point I would cancel ultrasound as I do not think it is necessary. Follow-up in office over the next 4 to 6 weeks as needed if not improving. - CONSULT TO PHYSICAL THERAPY Work slip was provided for today and tomorrow Some of this note may have been copied and pasted for the purpose of history context and comparison. Maikol Cook PA-C documented in this encounterPremier [facility]11-11-[facility]22 History of Present illness Narrative* Dee Dee Nava MD - 08/11/2022 3:29 PM EST DEPARTMENT OF GASTROENTEROLOGY - NEW PATIENT/CONSULT REASON FOR VISIT Indigo Alves is a 46 year old female who is scheduled for New Patient (Nodule on liver) HISTORY OF PRESENT ILLNESS Indigo Alves is a 46 year old female who presents today for an evaluation of liver nodule. This wasidentified in an ultrasound and then confirmed on a MRI liver. She was noted to have elevated LFT in 12/2021 when she had mono but her LFT had become normal in 03/2022. No abd or GI complaints now. Ultrasound 01/2022 1. Fatty infiltration of the liver 2. Hypoechoic nodule in the left lobe of the liver which could be further evaluated by MRI MRI 03/2022 IMPRESSION: UNIFORMLY ENHANCING NODULES IN THE RIGHT DOME OF THE LIVER AND INFERIOR LEFT LOBE OF THE LIVER WHICH ARE ISOINTENSE TO LIVER PARENCHYMA ON T2-WEIGHTED IMAGES. THESE MAY REPRESENT FOCAL NODULAR HYPERPLASIA OR HEPATIC ADENOMAS. A FOLLOW-UP LIVER MRI WITH EOVIST IS RECOMMENDED IN 3-6 MONTHS TO ASSESS STABILITY. PAST MEDICAL HISTORY Diagnosis Date Anxiety generalized anxiety & panic disorder (diagnosed by PCP) Chronic back pain mild scolosis and sciatica & SI joint locks up; was seeing pain management, now sees PCP GERD (gastroesophageal reflux disease) Hemorrhoids Hyperlipidemia 2011 Hypertension Marijuana use Vertigo PAST SURGICAL HISTORY Procedure Laterality Date ABDOMINAL SURGERY HX BREAST REDUCTION 07/2020 BREAST SURGERY HX CHOLECYSTECTOMY 2009 Cholecystectomy COLONOSCOPY 04/25/2022 repeat in 10 years EGD W/O BRSH SPEC VARICIES INJ 04/25/2022 HEMORROIDECTOMY INTERNAL 04/26/2022 LIG/TRNSXJ FLP TUBE ABDL/VAG APPR UNI/BI Tubal ligation SHX COSMETIC SURGERY Current Outpatient Medications Medication Sig Dispense Refill Lactobacillus acidophilus (FLORAJEN ACIDOPHILUS) 20 billion cell cap Take 1 capsule by mouth once daily. 30 capsule 0 Omeprazole Magnesium (PRILOSEC OTC) 20 mg tablet Take 1 tablet by mouth once daily. 30 tablet 5 albuterol HFA (PROVENTIL HFA, VENTOLIN HFA) 90 mcg/actuation inhaler Inhale 2 Puffs as instructed every 6 hours as needed for wheezing/shortness of breath. 6.7 g 5 ibuprofen (MOTRIN) 800 mg tablet Take 1 tablet by mouth every 8 hours as needed (FOR PAIN. TAKE WITH FOOD). 60 tablet 2 ondansetron orally disintegrating (ZOFRAN ODT) 4 mg disintegrating tablet Take 1 tablet by mouth every 6 hours as needed for nausea/vomiting. 10 tablet 1 metoprolol tartrate, short acting, (LOPRESSOR) 50 mg tablet Take 1 tablet by mouth twice daily. 180tablet 3 simvastatin (ZOCOR) 10 mg tablet Take 1 tablet by mouth once daily. 30 tablet 11 levonorgestrel (MIRENA) 20 mcg/24 hours (5 yrs) 52 mg IUD 1 Each by INTRAUTERINE route as directed.1 Each 0 Cholecalciferol, Vitamin D3, 1,000 unit cap Take 1 capsule by mouth once daily. 0 No current facility-administered medications for this visit. ALLERGIES Allergen Reactions House Dust Cough Maple Flavor Swelling Seasonal Allergies Shortness of Breath Social History Tobacco Use Smoking status: Never Smokeless tobacco: Never Vaping Use Vaping Use: Never used Substance Use Topics Alcohol use: No Drug use: Yes Types: Marijuana Comment: last use 2 days ago FAMILY HISTORY (grandparents, parents, brothers, sisters, aunts, or uncles) Liver Problems: No GI SPECIFIC REVIEW OF SYMPTOMS Difficulty swallowing / foods sticking in throat: no Heartburn: no Hoarseness: no Chronic cough: no Regurgitation: no Chest pain: no Filling up quickly at meals:no Loss of appetite: no Nausea: no Vomiting: no Abdominal pain: no Recent change in bowel movements: no Bloody or black, bowel movements: no Constipation: no Diarrhea: no Loss of control of bowel movements: no Night sweats: no Fever: no Chills: no Thought or memory problems: no Fluid in abdomen (ascites): no Prominent leg swelling: no Vomiting blood: no Recent change in weight: No PHYSICAL EXAMINATION BP 151/93 Pulse 65 Temp (Src) 97.8 (Temporal) Ht 5' 3 (1.60m) Wt 174 lb 9.6 oz (79.2kg) SpO2 97% LMP 04/25/2022 BMI 30.94 kg/(m^2). General Appearance: Well appearing, alert, in no acute distress, well-hydrated, well nourished. Eyes: PERRLA, conjunctiva and sclera normal Lungs:breath sounds clear to auscultation bilaterally, no crackles, rhonchi, or wheezes Heart: regular rate and rhythm, no murmurs or gallops. Abdomen: not distended, normal bowel sounds, soft and depressible, no guarding or rebound, no palpable mass, no organomegaly Rectal exam: Deferred. Extremities: no cyanosis or edema Skin: no jaundice, no spider angiomas, no palmar erythema Neuro:alert, oriented x 3, pleasant and in no acute distress RECENT LABS CBC: WBC (k/uL) Date Value 03/08/2022 11.34 (H) 04/22/2020 8.62 Hematocrit (%) Date Value 03/08/2022 42.7 MCV (fL) Date Value 03/08/2022 89.5 Platelet Count (k/uL) Date Value 03/08/2022 294 Lymph% (%) Date Value 03/08/2022 25.7 Comprehensive Metabolic Panel: Glucose (mg/dL) Date Value 03/08/2022 118 (H) BUN (mg/dL) Date Value 03/08/2022 13 Creatinine (mg/dL) Date Value 03/08/2022 0.52 (L) Sodium (mmol/L) Date Value 03/08/2022 137 Potassium (mmol/L) Date Value 03/08/2022 3.5 (L) Chloride (mmol/L) Date Value 03/08/2022 101 CO2 (mmol/L) Date Value 03/08/2022 22 Protein, Total (g/dL) Date Value 03/08/2022 7.1 Albumin (g/dL) Date Value 03/08/2022 4.2 Calcium, Total (mg/dL) Date Value 03/08/2022 9.8 Alkaline Phosphatase (U/L) Date Value 03/08/2022 76 Bilirubin, Total (mg/dL) Date Value 03/08/2022 0.3 AST (U/L) Date Value 03/08/2022 14 ALT (U/L) Date Value 03/08/2022 9 Assessment IMPRESSION Ms. 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 No signs of cirrhosis or portal HTN. PLAN Annual LFT to confirm continued normalization of LFT Discussed natural history of FNH vs adenoma and risk factors No indication for intervention at this point Repeat MRI liver in 08/2022 for follow up Plan is to follow up as needed (prn). Dee Dee Nava MD August 11, 2022 3:35 PM Medical Decision Making: Problems: Moderate: New problem with uncertain prognosis Data: Unique test result(s) reviewed: 3+ Risk: Low: Low risk from testing/treatment Medical Decision Making Level: 4 - Moderate documented in this encounterPremier [facility]11-09-2022 History of Present illness Narrative* Jennifer Whitfield APRN.CLERICAL ASSOCIATE - 08/09/2022 11:55 AM EST Chief Complaint Patient presents with: Telemedicine Patient was offered a virtual/telemedicine appointment in lieu of an office visit due to recommendations to reduce patient exposure to COVID-19. No video was used for evaluation of this patient. Patient is aware of limitations of performing thevisit without a face to face visit in the office setting and agrees. Patient agrees to the visit: Yes Patient Location: [facility] Indigo Alves is a 46 year old female who is contacted today for a phone visit This is an established patient of Dr. Jaguar Cook PA-C Reports: right knee pain and right shoulder pain. A couple of months ago, she hit her knee hard. On and off problems with the knee. Ice/heat. Taking ibuprofen 800 mg. Will get some pain in the left outer knee, but most of the pain in the in the left behind the knee. No redness. Does not feel any lumps or bumps. Refers that she will kind of limp around at work. She can physically feel it swelling. Refers that if she has to bend/stand back up, will get stabbing in the posterior aspect and will get achy in the front of the knee. Occ will get popping if she stretches out. No recent giving out. Refers that previous problems with the knee. [place] better for some time, but then started having a lot of similar symptoms after hitting her knee. She has been having ongoing right shoulder pain. She had just started PT when she had surgery and then couldn't continue PT. She would like to return to PT. Concerned that she may end up needing an MRI to r/o more serious problems with the shoulder. Past medical history, appointments, medications, allergies reviewed 08/09/2022 Previous Medical History PAST MEDICAL HISTORY Diagnosis Date Anxiety generalized anxiety & panic disorder (diagnosed by PCP) Chronic back pain mild scolosis and sciatica & SI joint locks up; was seeing pain management, now sees PCP GERD (gastroesophageal reflux disease) Hemorrhoids Hyperlipidemia 2011 Hypertension Marijuana use Vertigo Previous Surgical History PAST SURGICAL HISTORY Procedure Laterality Date ABDOMINAL SURGERY HX BREAST REDUCTION 07/2020 BREAST SURGERY HX CHOLECYSTECTOMY 2009 Cholecystectomy COLONOSCOPY 04/25/2022 repeat in 10 years EGD W/O BRSH SPEC VARICIES INJ 04/25/2022 HEMORROIDECTOMY INTERNAL 04/26/2022 LIG/TRNSXJ FLP TUBE ABDL/VAG APPR UNI/BI Tubal ligation SHX COSMETIC SURGERY Family History FAMILY HISTORY Problem Relation Age of Onset Hypertension Mother Hyperlipidemia Mother None Father other (Other) Father MVA - heart attack Diabetes Brother Hyperlipidemia Brother Heart Brother Asthma Son Allergies Son Allergies Son Cancer Sister 41 cervical, ?lymph Diabetes Sister Heart Brother CAD-quadruple bypass, age 46 Heart Brother CAD stent placement Patient Allergies ALLERGIES Allergen Reactions House Dust Cough Maple Flavor Swelling Seasonal Allergies Shortness of Breath Current Medications Current Outpatient Medications on File Prior to Visit Medication Sig fluconazole (DIFLUCAN) 150 mg tablet Take 1 tablet by mouth one time only for 1 dose. Lactobacillus acidophilus (FLORAJEN ACIDOPHILUS) 20 billion cell cap Take 1 capsule by mouth once daily. Omeprazole Magnesium (PRILOSEC OTC) 20 mg tablet Take 1 tablet by mouth once daily. albuterol HFA (PROVENTIL HFA, VENTOLIN HFA) 90 mcg/actuation inhaler Inhale 2 Puffs as instructed every 6 hours as needed for wheezing/shortness of breath. ibuprofen (MOTRIN) 800 mg tablet Take 1 tablet by mouth every 8 hours as needed (FOR PAIN. TAKE WITH FOOD). ondansetron orally disintegrating (ZOFRAN ODT) 4 mg disintegrating tablet Take 1 tablet by mouth every 6 hours as needed for nausea/vomiting. metoprolol tartrate, short acting, (LOPRESSOR) 50 mg tablet Take 1 tablet by mouth twice daily. simvastatin (ZOCOR) 10 mg tablet Take 1 tablet by mouth once daily. levonorgestrel (MIRENA) 20 mcg/24 hours (5 yrs) 52 mg IUD 1 Each by INTRAUTERINE route as directed. Cholecalciferol, Vitamin D3, 1,000 unit cap Take 1 capsule by mouth once daily. No current facility-administered medications on file prior to visit. Social History Social History Tobacco Use Smoking status: Never Smokeless tobacco: Never Vaping Use Vaping Use: Never used Substance Use Topics Alcohol use: No Drug use: Yes Types: Marijuana Comment: last use 2 days ago EXAM: LMP 04/25/2022 Limited exam as visit was completed over the phone platform. Patient sounds ill: No Patient is unable to speak in complete sentences: No Patient has labored breathing: No. Patient is audibly coughing: No Psych: Attitude - cooperative, easily engaged in conversation Health Maintenance List HEPATITIS B(1 of 3 - 3-dose series) Never done COVID-19 VACCINE(1) Never done DTAP,TDAP,TD(1 - Tdap) Never done DEPRESSION ASSESSMENT Never done MAMMOGRAM due on 05/25/2022 INFLUENZA(1) due on 06/01/2022 ANNUAL PCP TEAM CHRONIC DISEASE VISIT due on 08/08/2023 BP CONTROLLED (<130/80) due on 08/09/2023 PAP TESTING due on 02/07/2027 HPV TESTING due on 02/07/2027 COLORECTAL CANCER SCREENING due on 04/25/2032 HEPATITIS C SCREENING Completed HIV SCREENING Completed Data reviewed Last 5 Encounter BP Readings: Date: BP: 08/09/2022 128/76 05/30/2022 146/92 05/19/2022 142/90 05/09/2022 136/82 05/07/2022 162/102 BMI Readings from Last 5 Encounters: 08/09/22 : 31.86 kg/m 05/30/22 : 31.64 kg/m 05/19/22 : 30.89 kg/m 05/09/22 : 31.51 kg/m 05/07/22 : 31.25 kg/m Last 5 Encounter Wt Readings: Date: Wt: 08/09/2022 79 kg (174 lb 3.2 oz) 05/30/2022 78.5 kg (173 lb) 05/19/2022 77.1 kg (170 lb) 05/09/2022 78.7 kg (173 lb 6.4 oz) 05/07/2022 78 kg (172 lb) Medication and allergy list reviewed, reconciled and updated 08/09/2022 ASSESSMENT/PLAN: 1. Chronic right shoulder pain - ICD9: 719.41, 338.29, ICD10: M25.511, G89.29 (primary diagnosis) Will go ahead and refer back to physical therapy for additional treatment. - CONSULT TO PHYSICAL THERAPY 2. Chronic pain of right knee - ICD9: 719.46, 338.29, ICD10: M25.561, G89.29 Describes pain/swelling in the posterior knee after injury. Will get xray. Will get ultrasound to r/o DVT and bakers cyst. - XR KNEE GENERAL 4V AP BOTH/PA BOTH/LAT/MERC RIGHT - US LEG VEIN DVT UNL VAS LAB Discussed treatment plan and patient voices understanding. Patient's questions answered appropriately. Medications and potential side effects were discussed and patient voices understanding. Return to the office as scheduled or as needed for worsening/no improvement. Jennifer Whitfield APRN.CNP Total appointment time on phone with patient = 11-20 minutes documented in this encounterPrem[facility]11-09-2022 Instructions* Patient Instructions* Karina Gold APRN.CNM - 08/09/2022 10:10 AM EST Images from the original note were not included. VAGINAL YEAST INFECTION What causes a yeast infection? A yeast infection is caused by several different fungi that normally grow in the body. (Yeast is a kind of fungus). A change in the chemical balance in the vagina allows the fungus to grow too rapidly and cause symptoms. Yeast infections most often occur in a woman's vagina. Yeast infections can occur in other parts ofthe body and in men. Though uncomfortable, yeast infections are not serious and can be cured. What are the symptoms of a yeast infection? Common symptoms: Intense vaginal itching Thick, odorless discharge (might resemble cottage cheese) Less common symptoms: Sore vagina Lower abdominal pain Vaginal rash Burning during urination Painful sex Why do yeast infections occur? All of the reasons why yeast infections occur are not yet understood. What is known is that conditions that usually control fungus can change, allowing the fungus to grow rapidly. Some factors that might cause yeast infections include: control pills Poor nutrition Antibiotic treatment Lack of sleep Diabetes Stress HIV\AIDS Can yeast infections recur? Yes. Yeast infections often recur. Some women find that they get yeast infections frequently. Do I need to see a doctor if I think I have a yeast infection? Vaginal discharges have several different causes. If you are fairly certain that you have a yeast infection, you can treat yourself. See your health care provider promptly if the symptoms do not improve. Creams and suppositories can be purchased from a drugstore and used to treat the infection. It's important to follow all of the directions on the product label. Sometimes yeast infections are treated with medicines taken by the mouth. These must be ordered by your health care provider. How can I help prevent yeast infections? Wear loose clothing made from natural fibers (cotton, linen, silk). Avoid wearing pantyhose, tights, or leggings. Avoid wearing tight pants. Don't douche. (Douching can kill bacteria that control fungus.) Limit use of feminine deodorant. Limit use of deodorant tampons or pads. Change out of wet clothing, especially bathing suits, as soon as you can. Avoid frequent hot tub baths. Wash underwear in hot water. Eat a well-balanced diet. Eat yogurt. Use acidophilus tablets. If you have diabetes, keep your blood sugar level as close to normal as possible. What if I have frequent yeast infections? See your health care provider and: Get a blood sugar test for diabetes Get tested for HIV/AIDS Copyright 8238-2570 The [facility]. All rights reserved. This information is provided by the [facility] and is not intended to replace the medical advice of your doctor or health care provider. Please consult your health care provider for advice about a specific medical condition. For additional written health information, please contact the [facility] at the [facility] or toll-free extension [phone]. This document was last reviewed on: 2004 index#5019 *Clairvee is the only oral probiotic that has been proven to target the vagina's microbiome, restoring lactobacilli, and thus reducing the recurrence of BV and yeast. Rigorous clinical trials show that Clairvee significantly reduces these annoying recurrences while balancing the vagina's microbiomeand pH. Clairvee should be taken orally each day for 15 days of the month; 15 days off; then resumed for 15 days and so forth. Clairvee begins to balance the microbiome in as little as 15 days with best results at 6 months. Clairvee is professionally recommended, easily ordered by the patient, costs about $35 per month, and directly shipped to the patient's home. Clairvee is a great option for patients who struggle with recurring BV and yeast who have had no other prevention strategies in the past. It is also a great choice for women who have GSM symptoms of odor, itching, and discharge with an intermediate lyssa score, but have not had any other means to eliminate the embarrassing symptoms. documented in this encounterPremier [facility]11-09-2022 History of Present illness Narrative* Karina Gold APRN.CNM - 08/09/2022 9:43 AM EST Indigo Alves is a 46 year old female who presents for problem visit for vaginal irritation. HPI: Here today with complaint of vaginal itching and burning that started 2 nights ago, denies anyvaginal discharge. LLQ sharp stabbing pain coming and going for over an hour, took musle relaxer and resolved. Pain mild but present. History of ovarian cyst on left side in 2016 but resolved in 2019. Has felt this before but is usually quick and doesn't last as long. Diarrehea but not uncommon for her. No constipation. No nausea or vomiting. Mirena in place. Left breast mass, started a couple days ago, tender and would like evaluation. No redness or nipple discharge. OB History T0 L3 SAB0 IAB0 Ectopic0 Multiple0 Live Births0 Therapy Technician History LMP: 04/25/2022, IUD Age at Menarche: Age at First : Age at Menopause: Therapy Technician History Comments: Sexual Activity: Yes; Male Contraception: Tubal Ligation PAST MEDICAL HISTORY Diagnosis Date Anxiety generalized anxiety & panic disorder (diagnosed by PCP) Chronic back pain mild scolosis and sciatica & SI joint locks up; was seeing pain management, now sees PCP GERD (gastroesophageal reflux disease) Hemorrhoids Hyperlipidemia 2011 Hypertension Marijuana use Vertigo PAST SURGICAL HISTORY Procedure Laterality Date ABDOMINAL SURGERY HX BREAST REDUCTION 07/2020 BREAST SURGERY HX CHOLECYSTECTOMY 2009 Cholecystectomy COLONOSCOPY 04/25/2022 repeat in 10 years EGD W/O BRSH SPEC VARICIES INJ 04/25/2022 HEMORROIDECTOMY INTERNAL 04/26/2022 LIG/TRNSXJ FLP TUBE ABDL/VAG APPR UNI/BI Tubal ligation SHX COSMETIC SURGERY FAMILY HISTORY Problem Relation Age of Onset Hypertension Mother Hyperlipidemia Mother None Father other (Other) Father MVA - heart attack Diabetes Brother Hyperlipidemia Brother Heart Brother Asthma Son Allergies Son Allergies Son Cancer Sister 41 cervical, ?lymph Diabetes Sister Heart Brother CAD-quadruple bypass, age 46 Heart Brother CAD stent placement Social History Tobacco Use Smoking status: Never Smokeless tobacco: Never Vaping Use Vaping Use: Never used Substance Use Topics Alcohol use: No Drug use: Yes Types: Marijuana Comment: last use 2 days ago Current Outpatient Medications Medication Sig Omeprazole Magnesium (PRILOSEC OTC) 20 mg tablet Take 1 tablet by mouth once daily. albuterol HFA (PROVENTIL HFA, VENTOLIN HFA) 90 mcg/actuation inhaler Inhale 2 Puffs as instructed every 6 hours as needed for wheezing/shortness of breath. ibuprofen (MOTRIN) 800 mg tablet Take 1 tablet by mouth every 8 hours as needed (FOR PAIN. TAKE WITH FOOD). ondansetron orally disintegrating (ZOFRAN ODT) 4 mg disintegrating tablet Take 1 tablet by mouth every 6 hours as needed for nausea/vomiting. metoprolol tartrate, short acting, (LOPRESSOR) 50 mg tablet Take 1 tablet by mouth twice daily. simvastatin (ZOCOR) 10 mg tablet Take 1 tablet by mouth once daily. levonorgestrel (MIRENA) 20 mcg/24 hours (5 yrs) 52 mg IUD 1 Each by INTRAUTERINE route as directed. Cholecalciferol, Vitamin D3, 1,000 unit cap Take 1 capsule by mouth once daily. No current facility-administered medications for this visit. Allergies As of Date: 08/09/2022 Allergen Noted Reaction HOUSE DUST 08/12/2020 Cough MAPLE FLAVOR 08/12/2020 Swelling SEASONAL ALLERGIES 04/09/2019 Shortness of Breath Fully Assessed 08/09/2022 REVIEW OF SYSTEMS Abdomen: No bloating, early satiety, indigestion, or increased flatulence. No abdominal pain, nausea, vomiting, diarrhea, or constipation. Bladder: No dysuria, gross hematuria, urinary frequency, urinary urgency, or incontinence. Breast: See HPI Expanded ROS: N/A Allergies and current medication updated:Yes EXAM: BP 128/76 Wt 174 lb 3.2 oz (79.0kg) LMP 04/25/2022 GENERAL: pleasant, female in no apparent distress HEENT: Normocephalic and atraumatic NECK: Supple and full range of motion DERMATOLOGY: Normal and without lesions BREAST: soft, non-tender, symmetric, normal nipple-areolar complex, no lymphadenopathy, no nipple discharge. Left breast fibrocystic and previous breast reduction. Solitary cyst left upper outer breast quadrant, 1cm, round mobile, non tender. PELVIC: external genitalia normal, normal Bartholin's glands, urethra, [place]'s glands, no vulvar lesions, no cervical lesions, good vaginal support,normal appearing perineal body and perianal region.White thick vaginal discharge, adherent to vaginal side mckay. IUD strings present at cervical os. BIMANUAL: uterus normal size, shape and consistency, no adnexal masses, and non-tender NEURO: alert and oriented x3,exam grossly non-focal EXTREMITIES: normal ASSESSMENT AND PLAN: 1. Vaginal discharge - ICD9: 623.5, ICD10: N89.8 (primary diagnosis) - BACTERIAL VAGINOSIS AMPLIFICATION - TIFFANY / TRICHOMONAS AMPLIFICATION -Diflucan 150mg PO once and probiotic. 2. Diffuse cystic mastopathy of left breast - ICD9: 610.1, ICD10: N60.12 - US FEMALE PELVIS TRANSVAG - RONDA DIAGNOSTIC BILAT - US BREAST LTD LT 3. Pelvic pain in female - ICD9: 625.9, ICD10: R10.2 - pelvic US - Virtual visit in 2 weeks to discuss plan Karina Gold APRN.CNM documented in this encounterPrem[facility]2022 History of Present illness Narrative* Jaguar Cook PA-C - 08/08/2022 3:20 PM EST Buzzoekhart video visit was used for evaluation of this patient. Location of patient: [place] Patient was offered a virtual/telemedicine appointment in lieu of an office visit due to recommendations to reduce patient exposure to COVID-19. Patient is aware of limitations of performing the visit without a face to face visit in the office setting and agrees. 3:22 PM 3:41 PM No show Jaguar Cook PA-C documented in this encounterPremier Health [facility] Center11-03-2022 Miscellaneous Notes* Telephone Encounter - Mimi Lopez - 08/03/2022 11:01 AM EDT Patient has been identified by name and date of : Yes Last office visit in this department: Visit date not found RX INSTRUCTIONS: Patient aware RX will be sent to pharmacy. No need to notify patient. Patient phones requesting refills as follows: Requested Prescriptions Pending Prescriptions Disp Refills Omeprazole Magnesium (PRILOSEC OTC) 20 mg tablet 30 tablet 5 Sig: Take 1 tablet by mouth once daily. albuterol HFA (PROVENTIL HFA, VENTOLIN HFA) 90 mcg/actuation inhaler 6.7 g 5 Sig: Inhale 2 Puffs as instructed every 6 hours as needed. Please review and advise. Mimi Lopez documented in this encounterPremier Health [facility]09-21-2022 Miscellaneous Notes* Telephone Encounter - Lana Babulski, RN - 06/21/2022 11:13 AM EDT Patient has been identified by name and date of : Yes Patient phones for refill(s): Requested Prescriptions Pending Prescriptions Disp Refills ibuprofen (MOTRIN) 800 mg tablet 60 tablet 2 Sig: Take 1 tablet by mouth every 8 hours as needed (FOR PAIN. TAKE WITH FOOD). Date of last office visit in primary care: 03/20/22 Future visit: none Last 2 Encounter Wt Readings: Date: Wt: 05/30/2022 78.5 kg (173 lb) 05/19/2022 77.1 kg (170 lb) Previous labs/tests for medication: Blood Pressure: BUN (mg/dL) Date Value 03/08/2022 13 04/22/2020 15 Sodium (mmol/L) Date Value 03/08/2022 137 04/22/2020 138 Last 1 Encounter BP Readings: Date: BP: 05/30/2022 146/92 Liver Function: ALT (U/L) Date Value 03/08/2022 9 04/22/2020 8 AST (U/L) Date Value 03/08/2022 14 04/22/2020 16 Please advise. Thank you. Lana Comer RN documented in this encounterPremier Health [facility]09-15-2022 Miscellaneous Notes* Telephone Encounter - Blank Samson LPN - 06/15/2022 3:23 PM EDT Patient phones requesting refills as follows: Requested Prescriptions Pending Prescriptions Disp Refills ondansetron orally disintegrating (ZOFRAN ODT) 4 mg disintegrating tablet 10 tablet 1 Sig: Take 1 tablet by mouth every 6 hours as needed for nausea/vomiting. Refused Prescriptions Disp Refills ibuprofen (MOTRIN) 600 mg tablet 21 tablet 0 Sig: Take 1 tablet by mouth every 6 hours as needed for pain for up to 7 days. GENARO-03/20/22 Labs-03/08/22 NOV-none Please review and advise. Blank Samson LPN * Telephone Encounter - Elisa Trevino - 06/15/2022 2:33 PM EDT Patient has been identified by name and date of : Yes Requested Prescriptions Pending Prescriptions Disp Refills ondansetron orally disintegrating (ZOFRAN ODT) 4 mg disintegrating tablet 10 tablet 1 Sig: Take 1 tablet by mouth every 6 hours as needed for nausea/vomiting. ibuprofen (MOTRIN) 600 mg tablet 21 tablet 0 Sig: Take 1 tablet by mouth every 6 hours as needed for pain for up to 7 days. RX INSTRUCTIONS: Patient aware RX will be sent to pharmacy. No need to notify patient. Elisa Trevino documented in this encounterPremier Health [facility]08-30-2022 History of Present illness Narrative* Nohemi Kulkarni MD - 05/30/2022 5:24 PM EDT FOLLOW UP VISIT - ENDOSCOPY NAME: Indigo [facility] NO.: [id number] DATE OF SERVICE: May 30, 2022 : 1975 REFERRING PHYSICIAN: Jaguar Cook PA-C Indigo is a patient I am following for symptomatic grade 3 hemorrhoids heartburn. I performed upper and lower endoscopy on April 25, 2022. The patient was found to have gastritis along with was felt to be distal esophagitis. There was a polyp in the rectum but otherwise colonoscopy was unremarkable. Pathology demonstrated: FINAL DIAGNOSIS A. Stomach, antrum, biopsy: - Gastric antral mucosa with no diagnostic abnormalities. B. Esophagus, distal, biopsy: - Reactive squamous and gastric cardiac-type mucosa, negative for intestinal metaplasia. C. Rectum, polyp, polypectomy: - Inflammatory-type polyp. The patient then underwent examination under anesthesia and hemorrhoidectomy on April 26, 2022. 3 quadrant hemorrhoidectomy was performed. Pathology demonstrated: FINAL DIAGNOSIS A. Hemorrhoid , right anterior, excision: -Anal mucosa and submucosa with hemorrhoidal varices. B. Hemorrhoid , right posterior, excision: -Anal mucosa and submucosa with hemorrhoidal varices. C. Hemorrhoid , left lateral, excision: -Anal mucosa and submucosa with hemorrhoidal varices. She initially noted pain as to be expected following the procedure. She initially thought she was having standard postsurgical pain but now notes on the left lateral complex a 1 cm tender nodule consistent external tag/hemorrhoid. She wishes to have this removed. VITALS: Blood pressure 146/92, pulse 79, temperature 36.7 C (98.1 F), height 157.5 cm (5' 2 ), weight 78.5 kg (173 lb), last menstrual period 04/25/2022, SpO2 97 %. On examination, there is a 1.5 cm lateral tender nodule consistent with an external tag/possibly external hemorrhoidal tissue. The anal canal is tight but otherwise healing well. PROCEDURE: EXCISION OF ANAL TAG The risks, benefits and anticipated outcomes of the procedure, the risks and benefits of the alternatives to the procedure, and the roles and tasks of the personnel to be involved, were discussed with the patient, and the patient consents to the procedure and agrees to proceed. After consent was obtained and the site, person, and procedure verified, the patient`s skin was prepped and draped in the usual fashion. A combination of Lidocaine and Marcaine was injected into the skin. An elliptical incision was made around the lesion and was removed in its entirety. The specimen measured 2 by 1 cm. This was sent to pathology. The skin was then closed with interrupted 3-0 vicryl sutures. The patient tolerated the procedure well. Assessment IMPRESSION: Gastritis, reflux, status post hemorrhoidectomy, decision of residual nodule PLAN: I discussed continuing sitz baths and Dibucaine ointment to the area excised. Since she is not completely better I would like to see her back in the office in 1 month. You were found to have a hyperplastic colon polyp. I recommend you undergo repeat endoscopy in 10 years. If you note bleeding, change in bowel habits, or other suspicious colon related symptoms before that time, those symptoms should be evaluated as necessary. If you have any difficulties or concerns, you should contact our office immediately. He still notesswelling she should come in person for evaluation. Diagnoses: (L98.9) Skin lesion (primary encounter diagnosis) (K64.2) Grade III hemorrhoids Return to Clinic: The patient is instructed to follow-up with me in one month. Nohemi Kulkarni MD * Emilia Lunsford LPN - 05/30/2022 4:34 PM EDT UNIVERSAL PROTOCOL / SAFETY CHECKLIST Procedure to be Performed: excision of perianal tag Sign In: A Moment of CARE was completed. Personnel directly involved with the procedure wore the appropriate PPE (Personal Protective Equipment). No special equipment needed. Patient/Surrogate Stated/Verified: PATIENT VERIFIED(optional for EMERGENT procedures): Patient name, Date of , Relevant allergies, and The intended procedure Time Out Communication: Intended patient and procedure match the source documents. Consent documented and matches the intended procedure. No relevant labs, photos, and/or imaging studies were applicable for review. No fire risk assessment and interventions applicable. No implant(s) inserted. Sign Out: SIGN OUT (optional for EMERGENT procedures): No specimen collected. Post-procedure follow-up management communicated and Plan of Care Visit completed when applicable. Emilia Lunsford LPN documented in this encounterPremier Health [facility]08-30-2022 Miscellaneous Notes* Telephone Encounter - Saskia Cruz RN - 05/30/2022 10:24 AM EDT Pt called stating she has had increased constipation since hemorrhoid surgery on 04/26. She stated she is currently taking Ibuprofen for pain, no narcotics. She stated she is taking stool softeners and mirilax, which are not working. She has missed work from the pain and nausea. Was wanting to be seen by Dr. Kulkarni, her post op was virtual. Appointment was made for today at 15:[address] Kulkarni.Saskia Cruz RN documented in this encounterPremier Health [facility]08-19-2022 History of Present illness Narrative* Indigo Candelario APRN.CLERICAL ASSOCIATE - 05/19/2022 9:55 AM EDT patient declined pot fluxer Indigo Alves is a 46 year old female who presents for problem visit bladder pressure and vaginal itching HPI: Hemorrhoidectomy one month ago and had subsequent urinary symptoms. 2 urine cultures showed contamination. Finished 5 day course of Macrobid 4 days ago - did not decrease symptoms. Has bladder pressure, pain in lower pelvic area, vaginal itching. Flagyl in March and Macrobid 1 week ago. OB History T0 L3 SAB0 IAB0 Ectopic0 Multiple0 Live Births0 Therapy Technician History LMP: 04/25/2022, IUD Age at Menarche: Age at First : Age at Menopause: Therapy Technician History Comments: Sexual Activity: Yes; Male Contraception: Tubal Ligation PAST MEDICAL HISTORY Diagnosis Date Anxiety generalized anxiety & panic disorder (diagnosed by PCP) Chronic back pain mild scolosis and sciatica & SI joint locks up; was seeing pain management, now sees PCP GERD (gastroesophageal reflux disease) Hemorrhoids Hyperlipidemia 2011 Hypertension Marijuana use Vertigo PAST SURGICAL HISTORY Procedure Laterality Date ABDOMINAL SURGERY HX BREAST REDUCTION 07/2020 BREAST SURGERY HX CHOLECYSTECTOMY 2009 Cholecystectomy LIG/TRNSXJ FLP TUBE ABDL/VAG APPR UNI/BI Tubal ligation SHX COSMETIC SURGERY FAMILY HISTORY Problem Relation Age of Onset Hypertension Mother Hyperlipidemia Mother None Father other (Other) Father MVA - heart attack Diabetes Brother Hyperlipidemia Brother Heart Brother Asthma Son Allergies Son Allergies Son Cancer Sister 41 cervical, ?lymph Diabetes Sister Heart Brother CAD-quadruple bypass, age 46 Heart Brother CAD stent placement Social History Tobacco Use Smoking status: Never Smokeless tobacco: Never Vaping Use Vaping Use: Never used Substance Use Topics Alcohol use: No Drug use: Yes Types: Marijuana Comment: last use 2 days ago Current Outpatient Medications Medication Sig phenazopyridine (PYRIDIUM) 200 mg tablet Take 1 tablet by mouth three times daily as needed. dibucaine (NUPERCAINAL) 1 % oint by RECTAL route as needed (as directed). clotrimazole-betamethasone (LOTRISONE) cream Apply 1 application to affected area twice daily. metoprolol tartrate, short acting, (LOPRESSOR) 50 mg tablet Take 1 tablet by mouth twice daily. albuterol HFA (PROVENTIL HFA, VENTOLIN HFA) 90 mcg/actuation inhaler Inhale 2 Puffs as instructed every 6 hours as needed. simvastatin (ZOCOR) 10 mg tablet Take 1 tablet by mouth once daily. Omeprazole Magnesium (PRILOSEC OTC) 20 mg tablet Take 1 tablet by mouth once daily. ondansetron orally disintegrating (ZOFRAN ODT) 4 mg disintegrating tablet Take 1 tablet by mouth every 6 hours as needed for nausea/vomiting. ondansetron orally disintegrating (ZOFRAN ODT) 4 mg disintegrating tablet Take 1 tablet by mouth every 6 hours as needed for nausea/vomiting. peg 3350-Electrolytes (GOLYTELY) 236-22.74-6.74 -5.86 gram suspension Refer to printed prep instructions from your provider. levonorgestrel (MIRENA) 20 mcg/24 hours (5 yrs) 52 mg IUD 1 Each by INTRAUTERINE route as directed. Cholecalciferol, Vitamin D3, 1,000 unit cap Take 1 capsule by mouth once daily. Current Facility-Administered Medications Medication Dose Route Frequency perflutren lipid microspheres 1.3 mL in NaCl (PF) 0.9% 10 mL injection (DEFINITY) INTRAVENOUS DIRECTED PRN sodium chloride 0.9 % (flush) 10 mL (BD POSIFLUSH) 10 mL INTRAVENOUS DIRECTED PRN Allergies As of Date: 05/19/2022 Allergen Noted Reaction HOUSE DUST 08/12/2020 Cough MAPLE FLAVOR 08/12/2020 Swelling SEASONAL ALLERGIES 04/09/2019 Shortness of Breath Fully Assessed 05/19/2022 REVIEW OF SYSTEMS Abdomen: No bloating, early satiety, indigestion, or increased flatulence. No abdominal pain, nausea, vomiting, diarrhea, or constipation. Bladder: see HPI. Allergies and current medication updated:Yes EXAM: BP 142/90 Wt 170 lb (77.1kg) LMP 04/25/2022 GENERAL: pleasant, female in no apparent distress CHEST: Normal inspiratory effort ABDOMEN: soft, non-tender, and no masses PELVIC: external genitalia normal, normal [place]'s glands, urethra, [place]'s glands, no vulvar lesions, no cervical lesions, good vaginal support, normal appearing perineal body and perianal region, thick white vaginal discharge, inner vulva and vaginal mckay erythematous BIMANUAL: uterus normal size, shape and consistency, no adnexal masses, and non-tender NEURO: alert and oriented x3,exam grossly non-focal ASSESSMENT/PLAN: 1. Acute vaginitis - ICD9: 616.10, ICD10: N76.0 (primary diagnosis) - TIFFANY / TRICHOMONAS AMPLIFICATION - BACTERIAL VAGINOSIS AMPLIFICATION - MICONAZOLE NITRATE 2 % VAGINAL CREAM 2. Sensation of pressure in bladder area - ICD9: 596.89, ICD10: R39.89 - TIFFANY / TRICHOMONAS AMPLIFICATION - BACTERIAL VAGINOSIS AMPLIFICATION - MICONAZOLE NITRATE 2 % VAGINAL CREAM - URINE CULTURE 3. Pelvic pain in female - ICD9: 625.9, ICD10: R10.2 - TIFFANY / TRICHOMONAS AMPLIFICATION - BACTERIAL VAGINOSIS AMPLIFICATION - MICONAZOLE NITRATE 2 % VAGINAL CREAM Will notify of results. Follow- up as needed. Indigo Candelario APRN.RIZWAN Medical Decision Making: Problems: Low: Acute, uncomplicated illness or injury Data: Unique test(s) ordered: 3+ Risk: Moderate: Moderate risk from testing/treatment Medical Decision Making Level: 4 - Moderate documented in this encounterPremier Health [facility]08-11-2022 Miscellaneous Notes* Telephone Encounter - Gabi Wells LPN - 05/11/2022 7:02 PM EDT Patient notified and verbalized understanding of instructions given.Gabi Wells LPN * Telephone Encounter - Xochitl Duarte MA - 05/10/2022 4:52 PM EDT Left message for pt to call back for results. Xochitl Duarte MA * Telephone Encounter - Yeison Ignacio PA-C - 05/10/2022 3:07 PM EDT Please call and let patient know that her urine culture again showed it was contaminated likely by skin bacteria on collection again. Would recommend follow-up with PCP if symptoms persist. Can finish antibiotics if helping. documented in this encounterPremier Health [facility]08-11-2022 History of Present illness Narrative* Nohemi Kulkarni MD - 05/11/2022 6:25 PM EDT FOLLOW UP VISIT - ENDOSCOPY - VIRTUAL NAME: Indigo Alves CLINIC NO.: [id number] DATE OF SERVICE: 05/09/2022 : 1975 REFERRING PHYSICIAN: Jaguar Cook PA-C Indigo is a patient I am following for symptomatic grade 3 hemorrhoids heartburn. I performed upper and lower endoscopy on April 25, 2022. The patient was found to have gastritis along with was felt to be distal esophagitis. There was a polyp in the rectum but otherwise colonoscopy was unremarkable. Pathology demonstrated: FINAL DIAGNOSIS A. Stomach, antrum, biopsy: - Gastric antral mucosa with no diagnostic abnormalities. B. Esophagus, distal, biopsy: - Reactive squamous and gastric cardiac-type mucosa, negative for intestinal metaplasia. C. Rectum, polyp, polypectomy: - Inflammatory-type polyp. The patient then underwent examination under anesthesia and hemorrhoidectomy on April 26, 2022. 3 quadrant hemorrhoidectomy was performed. Pathology demonstrated: FINAL DIAGNOSIS A. Hemorrhoid , right anterior, excision: -Anal mucosa and submucosa with hemorrhoidal varices. B. Hemorrhoid , right posterior, excision: -Anal mucosa and submucosa with hemorrhoidal varices. C. Hemorrhoid , left lateral, excision: -Anal mucosa and submucosa with hemorrhoidal varices. The patient notes no current complaints since the procedure. She initially noted pain as to be expected following the procedure. The patient was to undergo virtual follow-up visit. She was not able to communicate/connect through [employer]. We were able to do a virtual visit through telephone. She is noting urinary complaints. Had a culture which demonstrated less than 50,000 mixed maria dolores. She is currently on Macrobid. While her anal pain is better she does note some swelling in the area. VITALS: Last menstrual period 04/25/2022. On examination, the patient is alert oriented and in no distress. Assessment IMPRESSION: Gastritis, reflux, status post hemorrhoidectomy PLAN: If the patient notes any problems or changes in bowel function, the patient should contact me immediately. Otherwise I recommend follow up endoscopy as needed. You were found to have a hyperplastic colon polyp. I recommend you undergo repeat endoscopy in 10 years. If you note bleeding, change in bowel habits, or other suspicious colon related symptoms before that time, those symptoms should be evaluated as necessary. If you have any difficulties or concerns, you should contact our office immediately. He still notesswelling she should come in person for evaluation. Diagnoses: (K64.2) Grade III hemorrhoids (primary encounter diagnosis) (R12) Heartburn (K59.00) Constipation, unspecified constipation type Return to Clinic: The patient is instructed to follow-up with me as needed. Nohemi Kulkarni MD documented in this encounterPremier Health [facility]08-09-2022 Miscellaneous Notes* Telephone Encounter - Bettina Russo RN - 05/09/2022 5:02 PM EDT Attempted to call patient ([phone]) no answer. Bettina Russo RN documented in this encounterPremier Health [facility]08-09-2022 Miscellaneous Notes* Telephone Encounter - Gabi Wells LPN - 05/09/2022 11:13 AM EDT Patient returned and urine collected for culture.Gabi Wells LPN * Telephone Encounter - Betty Crane APRN.CNP - 05/08/2022 7:02 PM EDT Please notify patient that urine culture showed mixture of bacteria which suggests possible contamination upon collection. Advise her if symptoms she will need to return to provide another specimen. Order placed can return to outpatient lab to provide specimen Thank you. Betty Crane APRN.RIZWAN documented in this encounterPremier Health [facility] Center08-09-2022 History of Present illness Narrative* Betty Crane APRN.CNP - 05/09/2022 11:11 AM EDT Subjective The history is provided by the patient. No language specialist was used. HPI Indigo Alves is a 46 year old female who presents today for CC of increased burning with urination and pressure. She was in on Sunday for uti symptoms with negative UA, placed on pyridium with no change until culture came back. Culture revealed contamination, needs repeat culture BP 136/82 Pulse 67 Temp 36.6 C (97.8 F) (Tympanic) Resp 16 Wt 78.7 kg (173 lb 6.4 oz) LMP04/25/2022 SpO2 96% BMI 31.51 kg/m Social History Tobacco Use Smoking status: Never Smokeless tobacco: Never Vaping Use Vaping Use: Never used Substance Use Topics Alcohol use: No Drug use: Yes Types: Marijuana Comment: last use 2 days ago PAST MEDICAL HISTORY Diagnosis Date Anxiety generalized anxiety & panic disorder (diagnosed by PCP) Chronic back pain mild scolosis and sciatica & SI joint locks up; was seeing pain management, now sees PCP GERD (gastroesophageal reflux disease) Hemorrhoids Hyperlipidemia 2012 Hypertension Marijuana use Vertigo I have confirmed and edited as necessary, the [facility] Review of Systems Constitutional: Negative for chills, fever and malaise/fatigue. Gastrointestinal: Negative for abdominal pain, nausea and vomiting. Genitourinary: Positive for dysuria. Negative for flank pain, frequency, hematuria and urgency. Objective Physical Exam Vitals and nursing note reviewed. Constitutional: Appearance: Normal appearance. Abdominal: General: Bowel sounds are normal. There is no abdominal bruit. Palpations: Abdomen is not rigid. There is no mass or pulsatile mass. Tenderness: There is abdominal tenderness in the suprapubic area. There is no guarding or rebound. Negative signs include Reynaga's sign and McBurney's sign. Neurological: Mental Status: She is alert and oriented to person, place, and time. Psychiatric: Mood and Affect: Affect normal. ASSESSMENT/PLAN: 1. Urinary frequency - ICD9: 788.41, ICD10: R35.0 Acute - unable to dip urine due to pyridium - Send urine for culture - Begin treatment with Macrobid 100 mg BID for 5 days - Patient education for prevention given - UA DIP, URINE (POC) - URINE CULTURE Diagnosis and treatment plan were discussed and questions were answered to the patient's satisfaction. Pt acknowledged understanding of concepts and follow up plan. Specific signs and symptoms that would indicate the need for higher level of care were discussed indetail warranting prompt ER evaluation. Betty Crane APRN.CNP documented in this encounterPremier Health [facility]08-07-2022 Instructions* Patient Instructions* Betty Crane APRN.CNP - 05/07/2022 11:30 AM EDT Will send urine for culture and treat as indicated Tylenol (generic acetaminophen) 500 mg-2 tabs every 8 hrs. as needed for fever and aches Ibuprofen 600 mg (3-200mg tablets) every 6 hours Pyridium as needed for discomfort -Follow up with PCP or return to clinic if symptoms not improving in 3 days or if you develop any new (or worsening) symptoms such as fever, chills or back pain go to ER. documented in this encounterPremier Health [facility]08-07-2022 History of Present illness Narrative* Betty Crane APRN.CNP - 05/07/2022 11:18 AM EDT Subjective The history is provided by the patient. No language specialist was used. HPI Indigo Alves is a 46 year old female who presents today for CC of incresed frequency of urination and burning. This started today Positive for Dysuria and Increase in frequency of urination, Negative for Dysuria and Increase in frequency of urination, no unusual vaginal discharge, itching or odor. Chance of : No Last intercourse: n/a Any self-treatment attempted: No Number of previous UTI's in last 6 months:1 Number of previous UTI's in last 12 months: 1 Aggravating Factors: voiding Alleviating Factors include Increasing fluids with no relief in symptoms. H/o of recent hemorrhoid surgery, still having occasional bleeding. BP 162/102 Pulse 72 Temp 36.6 C (97.8 F) Resp 16 Wt 78 kg (172 lb) LMP 04/25/2022 SpO2 98% BMI 31.25 kg/m Social History Tobacco Use Smoking status: Never Smokeless tobacco: Never Vaping Use Vaping Use: Never used Substance Use Topics Alcohol use: No Drug use: Yes Types: Marijuana Comment: last use 2 days ago PAST MEDICAL HISTORY Diagnosis Date Anxiety generalized anxiety & panic disorder (diagnosed by PCP) Chronic back pain mild scolosis and sciatica & SI joint locks up; was seeing pain management, now sees PCP GERD (gastroesophageal reflux disease) Hemorrhoids Hyperlipidemia 2011 Hypertension Marijuana use Vertigo I have confirmed and edited as necessary, the [facility] Review of Systems Constitutional: Negative for chills and fever. Gastrointestinal: Negative for abdominal pain, nausea and vomiting. Genitourinary: Positive for dysuria and urgency. Negative for flank pain, frequency and hematuria. Objective Physical Exam Vitals and nursing note reviewed. Constitutional: Appearance: Normal appearance. Abdominal: General: Bowel sounds are normal. There is no abdominal bruit. Palpations: Abdomen is not rigid. There is no mass or pulsatile mass. Tenderness: There is no abdominal tenderness. There is no guarding or rebound. Negative signs include Reynaga's sign and McBurney's sign. Neurological: Mental Status: She is alert and oriented to person, place, and time. Psychiatric: Mood and Affect: Affect normal. Component Latest Ref Rng & Units 05/07/2022 GLUCOSE UA (POCT) Negative mg/dL Negative BILIRUBIN UA (POCT) Negative Negative KETONE UA (POCT) Negative mg/dL Negative SPECIFIC GRAVITY UA (POCT) 1.005 - 1.030 1.020 HEMOGLOBIN/BLOOD UA (POCT) Negative Trace-lysed (A) PH UA (POCT) 4.5 - 8.0 6.5 PROTEIN UA (POCT) Negative mg/dL Negative UROBILINOGEN UA (POCT) Normal E.U./dL 0.2 NITRITE UA (POCT) Negative Negative LEUKOCYTES UA (POCT) Negative Negative COLOR UA (POCT) Yellow CLARITY UA (POCT) Clear ASSESSMENT/PLAN: 1. Urinary frequency - ICD9: 788.41, ICD10: R35.0 (primary diagnosis) - UA DIP, URINE (POC) - URINE CULTURE 2. Burning with urination - ICD9: 788.1, ICD10: R30.0 Does not appear to be uti, no signs of yeast infection Will send urine for culture and treat as indicated Tylenol (generic acetaminophen) 500 mg-2 tabs every 8 hrs. as needed for fever and aches Ibuprofen 600 mg (3-200mg tablets) every 6 hours Pyridium as needed for discomfort - UA DIP, URINE (POC) - URINE CULTURE Diagnosis and treatment plan were discussed and questions were answered to the patient's satisfaction. Pt acknowledged understanding of concepts and follow up plan. Specific signs and symptoms that would indicate the need for higher level of care were discussed indetail warranting prompt ER evaluation. Betty Crane APRN.RIZWAN documented in this encounterPremier Health [facility]08-03-2022 Miscellaneous Notes* Telephone Encounter - Bettina Russo RN - 05/03/2022 10:46 AM EDT Indigo called back. Reviewed Dr. Kulkarni's message with her, offered her an appointment for today, shewill check with her sister regarding transportation to our office as she is still not driving. Indigo asked about just getting the pain medication refilled instead of an office visit, I advised that if she was in that much pain, we really should see her in the office and evaluate the surgical site. She advised that she would check with her sister and call our office back to verify the appointment time for today. Bettina Russo RN * Telephone Encounter - Emilia Lunsford LPN - 05/03/2022 9:[address] Kulkarni: Patient underwent hemorrhoidectomy. Pain is typical during this postoperative process for 1 to 2 weeks. Patient should follow-up with me next week but if she is having considerable pain I can see her tomorrow. Called patient left message to call office back. * Telephone Encounter - Emilia Lunsford LPN - 05/02/2022 11:03 AM EDT Patient called with concerns of pain from hemorrhoids, had a colonoscopy on 04/25/22 and is still painful. Patient is alternating between taking ibuprofen, tylenol and muscle relaxant, states is make sleepy, this nurse advised patient to stop the muscle relaxant that is what maybe causing the drowsiness. States is still doing sitz baths and applying rectal ointment. Requesting pain medication [facility]. documented in this encounterPremier Health [facility]07-27-2022 NoteHNO ID: [id number] Author: Nasreen Adam MD Service: Anesthesiology Author Type: Anesthesiologist Type: Anesthesia Procedure Notes Filed: 04/26/2022 10:34 AM Note Text: ANESTHESIOLOGY PROCEDURE NOTE Airway General Information Procedure Start Time/Medication Administration: 04/26/2022 10:20 AM Patient location during procedure: OR Timeout Performed Pre-procedure: timeout performed Consent Obtained: Yes Patient identity confirmed: arm band and patient Staffing BOMB SQUAD OFFICER: Jemima Musa APRN.BOMB SQUAD OFFICER Performed by: BOMB SQUAD OFFICER Indications and Patient Condition Preoxygenated: yes Patient position: sniffing Manual In-Line Stabilization: No Difficult Mask: No Indications for airway management: anesthesia anesthesia circuit Method: asleep Cricoid Pressure: No Final Airway Details Final airway type: endotracheal airway Final Endotracheal Airway: ETT Cuffed: yes Successful intubation technique: direct laryngoscopy Blade: Uribe Blade size: #2 ETT size (mm): 7.0 Measured from: lips Measurement (cm): 22 Placement verified by: chest auscultation and capnometry Cormack-Lehane Classification: grade I - full view of glottis Number of attempts at approach: 1 Failed airway: no Unrecognized esophageal intubation: no Airway not difficult SIGNATURE: Nasreen Adam MD PATIENT NAME: Indigo Alves DATE: April 26, 2022 TIME: 10:32 AM CSN: [id number] Nurse Note* Blank Wiley RN - 04/25/2022 10:20 AM EDT Pt received in PACU. Pt moderately drowsy, but arouses easily. Denies pain or nausea. Abd soft and non distended. Blank Inez, RN documented in this encounterPremier Health [facility]07-26-2022 History and physical note * Nohemi Kulkarni MD - 04/25/2022 8:30 AM EDT UPDATED PROCEDURAL SEDATION HISTORY AND PHYSICAL EXAMINATION SERVICE DATE: 04/25/2022 SERVICE TIME: 9:06 AM PHYSICAL EXAM MUST BE COMPLETED ON ADMISSION PROCEDURE: Procedure Indications: The History and Physical (completed in the past 30 days) has been reviewed and the patient has beenexamined. The contents accurately reflect the patient's condition with the following additions or revisions since the H&P was completed. ASA Class: ASA Class:: Patient with severe systemic disease Examination indicates no changes. AIRWAY: Airway Visualization of Uvula: Yes Mouth opening greater than 2 fingerbreadths: Yes Neck Full Range of Motion: Yes LUNGS: Lungs clear to auscultation CARDIAC: Regular rhythm,Regular rate Provisional Diagnosis/Treatment Plan: GERD, presumed hemorrhoidal bleeding - egd and colonoscopy SEDATION GOAL: Moderate This H&P can be found in the attached. SIGNATURE: Nohemi Kulkarni MD PATIENT NAME: Indigo Alves DATE: April 25, 2022 TIME: 9:06 AM * Nohemi Kulkarni MD - 04/25/2022 8:30 AM EDT Images from the original note were not included. HISTORY AND PHYSICAL Indigo Alves 1975 REFERRING PHYSICIAN: Guillermo Lizama MD CHIEF COMPLAINT: Consult HPI: The patient is a 45 year old female with a complaint of symptomatic hemorrhoids. The patient notes she has had issues with hemorrhoids for 17 years since the of her child. She notes that she has tissue which prolapses with straining. She has difficulty keeping her perianal clean. She notes occasional seepage. She notes mucus on the toilet paper. With some bowel movements she notes bleeding and discomfort. She notes the symptoms of worsened over the last few years. She denies any issues with constipation or straining. She states her stools are soft and malleable as she has bowel movements. She has no family history of colon cancer. She has not undergone previous colonoscopy The patient is being seen by me today at the request of Dr. Guillermo Lizama MD for my opinion and advice regarding symptomatic mixed hemorrhoids. She is scheduled the surgery but then canceled on 3 occasions. One because her child was sick, one because she was worried about surgery and the third time because she could not get out of work. She cancelled surgery last year. She states she is now ready for surgery. SHe is also noting refluxand progressive constipation PAST MEDICAL HISTORY PAST MEDICAL HISTORY Diagnosis Date Anxiety generalized anxiety & panic disorder (diagnosed by PCP) Chronic back pain mild scolosis and sciatica & SI joint locks up; was seeing pain management, now sees PCP GERD (gastroesophageal reflux disease) Hemorrhoids Hyperlipidemia 2011 Hypertension Marijuana use Vertigo PAST SURGICAL HISTORY PAST SURGICAL HISTORY Procedure Laterality Date BREAST REDUCTION 07/2020 CHOLECYSTECTOMY 2009 Cholecystectomy LIG/TRNSXJ FLP TUBE ABDL/VAG APPR UNI/BI Tubal ligation CURRENT MEDICATIONS Current Outpatient Medications Medication Sig fluticasone (FLONASE) 50 mcg/actuation nasal spray Use 2 Sprays in each nostril once daily. Rinse mouth after use. simvastatin (ZOCOR) 10 mg tablet Take 1 tablet by mouth once daily. Omeprazole Magnesium (PRILOSEC OTC) 20 mg tablet Take 1 tablet by mouth once daily. albuterol HFA (PROVENTIL HFA, VENTOLIN HFA) 90 mcg/actuation inhaler Inhale 2 Puffs as instructed every 6 hours as needed. metoprolol tartrate, short acting, (LOPRESSOR) 50 mg tablet Take 1 tablet by mouth twice daily. levonorgestrel (MIRENA) 20 mcg/24 hours (5 yrs) 52 mg IUD 1 Each by INTRAUTERINE route as directed. Cholecalciferol, Vitamin D3, 1,000 unit cap Take 1 capsule by mouth once daily. peg 3350-Electrolytes (GOLYTELY) 236-22.74-6.74 -5.86 gram suspension Refer to printed prep instructions from your provider. Current Facility-Administered Medications Medication Dose Route Frequency perflutren lipid microspheres 1.3 mL in NaCl (PF) 0.9% 10 mL injection (DEFINITY) INTRAVENOUS DIRECTED PRN sodium chloride 0.9 % (flush) 10 mL (BD POSIFLUSH) 10 mL INTRAVENOUS DIRECTED PRN ALLERGIES: House Dust, Maple Flavor, and Seasonal Allergies PERSONAL HISTORY: SOCIAL HISTORY Social History Tobacco Use Smoking status: Never Smoker Smokeless tobacco: Never Used Vaping Use Vaping Use: Never used Substance Use Topics Alcohol use: No Drug use: No Comment: positive drug screen for marijuana - last use 2016 FAMILY HISTORY: FAMILY HISTORY FAMILY HISTORY Problem Relation Age of Onset Hypertension Mother Hyperlipidemia Mother None Father other (Other) Father MVA - heart attack Diabetes Brother Hyperlipidemia Brother Heart Brother Asthma Son Allergies Son Allergies Son Cancer Sister 41 cervical, ?lymph Diabetes Sister Heart Brother CAD-quadruple bypass, age 46 Heart Brother CAD stent placement REVIEW OF SYMPTOMS: The review of systems data was entered by the nurse and reviewed by me There are no exam notes on file for this visit. PHYSICAL EXAMINATION: General: The patient is 44 year old female, well nourished, well hydrated in no acute distress. Thepatient is oriented to time, place, and person. VITALS: Blood pressure 126/94, pulse 87, temperature 36.6 C (97.8 F), height 160 cm (5' 3 ), .3 kg (174 lb 12.8 oz), last menstrual period 10/17/2020, SpO2 96 %. HEENT: Normal cephalic, ataumatic, pupils are equally round, sclera are anicteric, mucous membranesare moist, oropharynx is clear. Neck has no masses, asymmetry or lymphadenopathy. Thyroid is unremarkable. Respiratory: Clear to auscultation and percussion. Normal respiratory excursion and pattern. Cardiac: Examination is regular rate and rhythm. Abdominal exam: Soft, nontender, with no palpable masses. No hepatosplenomegaly. No palpable hernias. Rectal exam: Significant hemorrhoids, grade 2-3 located in 3 quadrants, otherwise no additional abnormalities or masses. Digital rectal exam - normal tone, internal hemorrhoids without other abnormalities Extremities: no clubbing, cyanosis or edema. No adenopathy. Other: LABORATORY VALUES: As Noted RADIOLOGIC STUDIES: As Noted Assessment IMPRESSION: Symptomatic mixed hemorrhoids, reflux, constipation PLAN: I plan to perform upper and lower endoscopy in [place]. We discussed the risks and benefits of the planned endoscopy. I have informed the patient that complications can occur including failure to complete the endoscopy and perforation. The patient had the opportunity to ask questions concerning the planned endoscopy. My staff has also explained the procedure to the patient in understandable termsand has given the patient printed material concerning the procedure. The patient freely consents tosurgery. The following day, I plan to perform an examination under anesthesia and 3 quadrant hemorrhoidectomy. The planned surgical procedure was discussed extensively with the patient. The risks, benefits and anticipated outcomes of the procedure, the risks and benefits of the alternatives to the procedure, and the roles and tasks of the personnel to be involved, were discussed with the patient. My staffhas also explained the procedure in understandable terms and the patient was given the option to take printed material concerning the planned procedure. The patient had the opportunity to ask questions concerning the planned procedure. The patient freely consents to the planned procedure. The patient was offered a surgery/procedure at a [facility]. The surgeon/proceduralist and patient have discussed in detail the risk of exposure to and/or potential harm posed by the COVID-19 virus with having a surgery/procedure at this time versus the risk of delaying the surgery/pr ocedure. It is not possible to know either the risk of delaying the surgery or procedure or chance of getting an infection with perfect accuracy, but a joint decision was made between the patient andthe surgeon/proceduralist to proceed at this time with the scheduled surgery/procedure as indicatedon the consent form. Anticipated Surgical Procedure/ CPT Code: Examination Under Anesthesia, Hemorrhoidectomy - [id number] Anticipated Anesthetic: Choice Patient weight: Blood pressure 126/94, pulse 87, temperature 36.6 C (97.8 F), height 160 cm (5' 3 ), weight 79.3 kg (174 lb 12.8 oz), last menstrual period 10/17/2020, SpO2 96 %. BMI: Body mass indexis 30.96 kg/m . 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 Guillermo Lizama MD via shared medical record. This note will be forwarded to Dr. Guillermo Lizama MD. Return to Clinic: The patient is instructed to follow-up with me 1 week post operatively. This note was partially generated using [email or web address] voice recognition system, and there may be some incorrect words, spellings, and punctuation that were not noted in checking the note before saving. Nohemi Kulkarni MD documented in this encounterPremier Health [facility]07-25-2022 Miscellaneous Notes* Telephone Encounter - Emilia Lunsford LPN - 04/24/2022 10:34 AM EDT Patient updated * Telephone Encounter - Lana Miner PA-C - 04/24/2022 10:15 AM EDT Rx sent * Telephone Encounter - Emilia Lunsford LPN - 04/24/2022 10:06 AM EDT Patient called requesting a new script for Golytely to [facility] in [place], having colonoscopy on 04/26/[address] Kulkarni. Can you please send in a script? Thank you. documented in this encounterPremier Health [facility] Center07-15-2022 Instructions* Patient Instructions* Indigo Candelario APRN.CLERICAL ASSOCIATE - 04/14/2022 9:33 AM EDT If positive yeast, Monistat 7 or generic - a applicator full at bedtime every night for 7 nights. Lotrisone cream as needed. Minimizing irritation of the vulva (area around the vagina) Wear white cotton underwear. Avoid synthetic fabrics and tight clothing. Sleep wearing shorts or pajama bottoms without underwear. Shower as soon as possible after exercise. Avoid clothing detergents and soaps with perfumes or dyes. Use warm (not hot) water to wash the vulva and if you use soap use a product designed for sensitive skin (like Dove or Cetaphil). Do not douche or use creams/powders in the vulvar area unless instructed by your physician. If you must douche, use only plain warm water. Make sure the vulva is dry before dressing by patting dry with a towel. Avoid vigorous rubbing withthe towel. You may want to use the blow dryer (on the cool setting only!) on the vulva. The most important way to let your body heal is by avoiding scratching. Many patients find it difficult to avoid scratching at night when they are most aware of the itchiness. You can try taking Benadryl just before bedtime. Some women find it helpful to wear cotton gloves to bed to avoid scratching at night. documented in this encounterPremier Health [facility]07-15-2022 History of Present illness Narrative* Indigo Candelario APRN.CNP - 04/14/2022 9:02 AM EDT Indigo Alves is a 46 year old female who presents for vaginal pruritis for at least 1 month(s). Also has a little piece of skin at vulva that she feels when she wipes - would like to know if it couldbe removed. Longer spotting with Mirena 07/02/2020. Vaginal discharge: none. Itching: YES, intermittent Dyspareunia: YES, sometimes a little uncomfortable Fever/chills: No Abdominal pain: No Bladder: Negative for dysuria or frequency Bowel: No blood in stool, pain with BM, tarry stool, persistent diarrhea or constipation Any new sexual partners or concern for STD exposure: No, one male partner of 7 years Any history of STDs: None Does your partner have any new complaints: No Are you currently taking any medications to treat vaginitis: Yes, Monistat spray numbs it Do you use feminine sprays, douches or deodorants: No Menstrual cycle: spotting with Mirena Contraception: Mirena IUD Last pap: 2021, normal Past medical, surgical, social history, medications and allergies reviewed and updated. OBJECTIVE: BP 134/82 Wt 170 lb 9.6 oz (77.4kg) LMP 03/18/2022 GENERAL: Well developed, well nourished in no apparent distress ABDOMEN: soft, non-tender and no masses PELVIC: external genitalia normal, normal Bartholin's glands, urethra, [place]'s glands, no vulvar lesions, no cervical lesions, good vaginal support, small amount pale yellow discharge present, normalappearing perineal body and perianal region. Inner vulva with mild erythema. Skin tag at base of introitus BIMANUAL: uterus normal size, shape and consistency, no adnexal masses and non-tender. ASSESSMENT/PLAN: 1. Vaginal itching - ICD9: 698.1, ICD10: N89.8 (primary diagnosis) - BACT/TIFFANY VAG GRAM STAIN - CLOTRIMAZOLE-BETAMETHASONE 1 %-0.05 % TOPICAL CREAM - Declines STD testing - vulvar hygiene instructions 2. Vaginal discharge - ICD9: 623.5, ICD10: N89.8 - BACT/TIFFANY VAG GRAM STAIN 3. IUD check up - ICD9: V25.42, ICD10: Z30.431 - IUD stings teased through os, few mm visible Will notify of results. Follow- up as needed. Pt will make appointment with one of physicians if she would like to discuss removal of skin tag. Indigo Candelario APRN.RIZWAN I spent a total of 20 minutes on the date of the service which included preparing to see the patient, [id number] patient care, completing clinical documentation, obtaining and/or reviewing separately obtained history, performing a medically appropriate examination, counseling and educating the pat ient/family/caregiver and ordering medications, tests, or procedures. documented in this encounterPremier Health [facility] Center07-11-2022 Instructions* Patient Instructions* Crystal Rdz PA-C - 04/10/2022 10:33 AM EDT PATIENT PREOPERATIVE INSTRUCTIONS Nohemi Kulkarni MD has scheduled you for your procedure at this surgery center: [facility]: [phone] -- [address] [facility] [address]. Please read below carefully for your personalized instructions. Dietary Restrictions: - You may have 12 ounces of clear liquids (water, clear juices such as apple juice or gatorade, carbonated beverages, clear tea, black coffee, jello) until 2 hours before scheduled arrival at facility. - Follow bowel prep instructions: clear liquids need to be stopped 2 hours prior to schedule arrival at facility Medications: Unless instructed differently below, stay on all of your medications until your surgery. Approved medications to take the morning of surgery with a sip of water: Metoprolol, Prilosec, Zocor If you start any new medications after today's visit, please contact the surgeon's office. Blood Thinning Medications: - Stop NSAIDS (Ibuprofen, Advil, Aleve, Motrin, Celebrex, Mobic, etc.) 7 days before surgery, as directed by your surgeon. - Stop Aspirin 7 days before surgery, as directed by your surgeon. - Stop Vitamin E, ALL multi-vitamins, herbals and dietary supplements 7 days before surgery. - You may take Tylenol (Acetaminophen) or any of your pain medications that do not contain aspirin or NSAIDS as needed. Important Reminders: - If you are prescribed inhalers for breathing, continue using them. - Candy, mints, and tobacco products are NOT permitted the morning of surgery. - Hearing aids, dentures and glasses may be worn the morning of surgery. - NO jewelry, body piercings, makeup, hairpins or contacts are to be worn the day of surgery. If you develop symptoms such as a fever, cold, or flu, or have other changes to your health within TWO DAYS of scheduled surgery or the morning of surgery, please contact the surgery center above. Personal Belongings: -Please have photo ID and insurance cards. -If you do not have a copy of advance directives on file with us, please bring a copy with you on the day of surgery. - Leave ALL valuables and money at home or with family members. For Outpatient Procedures: - YOU MUST HAVE A RESPONSIBLE BIOMEDICAL MANAGER TAKE YOU HOME. A HAM TRIMMER OR ELECTRICAL ACCESSORIES I ASSEMBLER CANNOT BE MADE A RESPONSIBLE BIOMEDICAL MANAGER. - We recommend that a responsible person stays with you overnight to take care of you. - You cannot stay in a hotel alone after outpatient surgery. You will not be permitted to have yoursurgery, if you do not have someone to take care of you. Arrival Time for Surgery: - The Surgery Center or hospital where you are having surgery will call the afternoon before surgery (or Sunday for Sunday surgery) with a scheduled arrival time. - If you have not heard by 4 pm, please contact the surgery center above. Please be aware that emergency situations arise, which may delay or change your surgical time. If this happens, we will notify you as soon as possible and regret any inconvenience. If you already have an Advance Directive, please fax a copy to [phone] or email to for it to be added to your chart. If you do not have an Advance Directive, you can find the appropriate form and more information at [email or web address]. We recommend that youcomplete the Advance Directive form found on the website and bring it with you the day of your surgery. It can be witnessed and scanned into your chart that day. Crystal Rdz PA-C documented in this encounterPremier Health [facility] Center07-11-2022 History and physical note * Crystal Rdz PA-C - 04/10/2022 10:10 AM EDT PREANESTHESIA CONSULT CLINIC TELEHEALTH VISIT Patient has been identified by name and date of : Yes This is a virtual visit using IQMax video visit. It require patient-provider interaction for the medical decision making as documented below. Reason for contact: PACC visit Accompanied by: Self Scheduled Surgery: EUA Subjective CHIEF COMPLAINT: Patient presents with: Pre-Op Visit HPI: This is a 46 year old female who presents with external and internal hemorrhoids. She reports history of painful bowel movements and BRBPR. Denies any CP, SOB, fever, chills, n/v/d, CHRISTIANSON or dizziness. Recommended above procedure and elects to proceed. ACTIVE PROBLEM LIST Anxiety State Other Acne Pain in Joint, Lower Leg Backache, Unspecified Hyperlipidemia With Target Ldl Less Than 130 Marijuana Use Other Enthesopathy of Ankle and Tarsus Peroneal Tendonitis of Right Lower Extremity Vertigo 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 Hypertension Nonorganic Sleep Disorder Sacroiliac Joint Pain Fibromyalgia Convulsion, Non-Epileptic (Hcc) Neck Pain Upper Back Pain Bilateral Shoulder Pain Other Chest Pain Palpitations Gerd (Gastroesophageal Reflux Disease) Elevated Liver Enzymes Internal Hemorrhoid Liver Nodule Acute Pain of Right Shoulder PAST MEDICAL HISTORY Diagnosis Date Anxiety generalized anxiety & panic disorder (diagnosed by PCP) Chronic back pain mild scolosis and sciatica & SI joint locks up; was seeing pain management, now sees PCP GERD (gastroesophageal reflux disease) Hemorrhoids Hyperlipidemia 2011 Hypertension Marijuana use Vertigo PAST SURGICAL HISTORY Procedure Laterality Date BREAST REDUCTION 07/2020 CHOLECYSTECTOMY 2010 Cholecystectomy LIG/TRNSXJ FLP TUBE ABDL/VAG APPR UNI/BI Tubal ligation FAMILY HISTORY Problem Relation Age of Onset Hypertension Mother Hyperlipidemia Mother None Father other (Other) Father MVA - heart attack Diabetes Brother Hyperlipidemia Brother Heart Brother Asthma Son Allergies Son Allergies Son Cancer Sister 41 cervical, ?lymph Diabetes Sister Heart Brother CAD-quadruple bypass, age 46 Heart Brother CAD stent placement Social History Tobacco Use Smoking status: Never Smoker Smokeless tobacco: Never Used Vaping Use Vaping Use: Never used Substance Use Topics Alcohol use: No Drug use: No Comment: positive drug screen for marijuana - last use 2015 ALLERGIES Allergen Reactions House Dust Cough Maple Flavor Swelling Seasonal Allergies Shortness of Breath MEDICATIONS: Current Outpatient Medications Medication Sig metoprolol tartrate, short acting, (LOPRESSOR) 50 mg tablet Take 1 tablet by mouth twice daily. ibuprofen (MOTRIN) 800 mg tablet Take 1 tablet by mouth every 8 hours as needed (FOR PAIN. TAKE WITH FOOD). cyclobenzaprine (FLEXERIL) 10 mg tablet Take 1 tablet by mouth three times daily as needed for muscle spasm. albuterol HFA (PROVENTIL HFA, VENTOLIN HFA) 90 mcg/actuation inhaler Inhale 2 Puffs as instructed every 6 hours as needed. simvastatin (ZOCOR) 10 mg tablet Take 1 tablet by mouth once daily. Omeprazole Magnesium (PRILOSEC OTC) 20 mg tablet Take 1 tablet by mouth once daily. ondansetron orally disintegrating (ZOFRAN ODT) 4 mg disintegrating tablet Take 1 tablet by mouth every 6 hours as needed for nausea/vomiting. levonorgestrel (MIRENA) 20 mcg/24 hours (5 yrs) 52 mg IUD 1 Each by INTRAUTERINE route as directed. Cholecalciferol, Vitamin D3, 1,000 unit cap Take 1 capsule by mouth once daily. ondansetron orally disintegrating (ZOFRAN ODT) 4 mg disintegrating tablet Take 1 tablet by mouth every 6 hours as needed for nausea/vomiting. peg 3350-Electrolytes (GOLYTELY) 236-22.74-6.74 -5.86 gram suspension Refer to printed prep instructions from your provider. Current Facility-Administered Medications Medication Dose Route Frequency perflutren lipid microspheres 1.3 mL in NaCl (PF) 0.9% 10 mL injection (DEFINITY) INTRAVENOUS DIRECTED PRN sodium chloride 0.9 % (flush) 10 mL (BD POSIFLUSH) 10 mL INTRAVENOUS DIRECTED PRN COVID VACCINATION STATUS: Not vaccinated REVIEW OF SYSTEMS: Pain Assessment: General: No weight loss, malaise or fevers.+fatigue Neuro: +non-epileptic convulsions, conversion disorder Respiratory: Positive for Dyspnea, +chronic, ORELLANA Cardiovascular: Positive for: HLD, Hypertension+palpitations GI: See HPI : No history of dysuria, frequency or incontinence,, stones or chronic kidney disease SPECIALIST FIELD ENGINEER: Negative for abnormal vaginal bleeding, abnormal vaginal discharge. : Denies, Patient's last menstrual period was 10/17/2020. Endocrine: No history of diabetes. Has not taken steroids within the past 30 days. No history of endocrinological symptoms or problems. Hematology: No history of bleeding or clotting disorder. Pt is not taking anti- coagulation or platelet medications. No history of hematological symptoms or problems. Oncology: No history of CA metastasis, chemo within 30 days, or radiotherapy within 90 days. Has not lost 10% of body wt in 6 months. No history of oncological symptoms or problems. Psych: Anxiety Musculoskeletal: Joint pain Skin: Negative for lesions, rash and itching. Objective PHYSICAL EXAM: Pulse 60[pt reports[ LMP 10/17/2020 VIDEO EXAM: (if completed, performed via video enabled technology) GENERAL: alert and appropriate, in no distress, well-hydrated, well nourished and happy, smiling, interactive SKIN: no rash noted HEAD: normocephalic, no abnormality or lesion noted EYES: no injection and visual acuity is grossly normal OROPHARYNX: moist mucus membranes NECK: full ROM, no cervical LNs noted RESPIRATORY: breathing non-labored CHEST: equal chest rise with normal respiratory effort HEART: RRR Diagnostic tests reviewed for today's visit: Lab Value Units Date High Low HB 13.8 g/dL 03/08/2022 15.5 11.5 HCT 42.7 % 03/08/2022 46.0 36.0 WBC 11.34 k/uL 03/08/2022 11.00 3.70 PLT 294 k/uL 03/08/2022 400 150 NA 137 mmol/L 03/08/2022 144 136 K 3.5 mmol/L 03/08/2022 5.1 3.7 GLUC 118 mg/dL 03/08/2022 99 74 BUN 13 mg/dL 03/08/2022 21 7 CREAT 0.52 mg/dL 03/08/2022 0.96 0.58 PTSEC No results within date range. INR No results within date range. APTT No results within date range. ALT 9 U/L 03/08/2022 38 7 AST 14 U/L 03/08/2022 35 13 TBILI 0.3 mg/dL 03/08/2022 1.3 0.2 TSH 1.090 mIU/L 03/08/2022 4.200 0.270 Lab Value Units Date High Low HCGQT No results within date range. UHCG No results within date range. HCG, BODY* No results within date range. Lab Value Units Date High Low ABORHD No results within date range. ABSCREEN No results within date range. Hemoglobin A1C (%) Date Value 06/10/2015 5.4 EKG 10/29/2020 Diagnosis: NORMAL SINUS RHYTHM MINIMAL VOLTAGE CRITERIA FOR LVH, MAY BE NORMAL VARIANT BORDERLINE ECG Impression/Recommendations ASSESSMENT: Essential hypertension Assessment: stable on Metoprolol Hyperlipidemia with target LDL less than 130 Assessment: stable on Zocor Palpitations Assessment: history of heart palpitations, seen by [facility] cardiology 03/2021. Patient ordered stress echo at that time, ECHO scheduled for 04/24/2022 -Holter Monitor 11/2020: 2 SVT runs, 1.2 second pause, no A Fib detected -Denies any CP or SOB, reports chronic ORELLANA with activity -States heart palpitations are much better controlled, denies any new or worsening palpitations. States she feels these were triggered by increased stress GERD (gastroesophageal reflux disease) Assessment: stable on Prilosec Liver nodule Assessment: 03/23/2022 MRI Liver: 1.2 cm x 1 cm nodule in left lobe, 6 month f/u for stability Elevated liver enzymes Assessment: scheduled to see hepatology in future -MRI Liver 03/2022: enhancing nodule on right dome and left inferior lobe of liver, f/u in 6 months -CMP 03/08/2022: LFTs WNL Convulsion, non-epileptic (HCC) Assessment: history of non-epileptic convulsions, has been seen by neurology in past -states she was diagnosed with conversion disorder -denies any of these episodes in past 3 years Marijuana use Assessment: every day marijuana smoker Internal hemorrhoid Assessment: scheduled for EUA on 04/26 Fibromyalgia Assessment: currently on Flexeril and Ibuprofen -follows with PT/OT Anxiety state Assessment: not currently on Rx, smokes marijuana daily. Discussed abstaining from marijuana use prior to surgery METS: Do light work around the house, such as dusting or washing dishes (2.70 METs) Patient denies any chest pain or undue shortness of breath with the above physical activity. ASA Class: 3 ANESTHESIA FINDINGS: Intubation History: No history of difficult intubation Significant Anesthesia Considerations: None and Difficult IV/Vein Access: denies any US guidance inpast, though endorses difficult IV access Airway Exam: General: Normal appearance Mallampati Score is CLASS III ULBT: Class II - Lower incisors can bite the upper lip below the jai line Neck: Normal appearance and function, Distance from hyoid to mentum during neck extension is at least 3 finger breaths Mouth: Large tongue size and Mouth opening greater than 2 finger breaths Dentition: Intact Airway History: No abnormal airway history STOP BANG Score: Criteria: Tired Score = 1 PLAN: This patient is optimally prepared for surgery pending stress ECHO results. Patient with history ofheart palpitations and ordered stress ECHO by cardiology last year. Patient states she is scheduledfor ECHO on 04/24. Will review results when available. CONSULTS: Patient does not require consults for optimization at this time. The Following Tests/Procedures Have Been Initiated: No orders of the defined types were placed in this encounter. Planned Anesthetic: Per anesthesia choice Instructions Given to Patient: Patient given verbal instructions and voices comprehension and compliance. Copy sent electronically via My Chart, email, or mobile device. I spent more than 21-40 minutes [id number] with the patient and over half the time was devoted tocounseling and/or coordination of care. This is a virtual visit. It required patient-provider interaction for the medical decision making as documented above. SIGNATURE: Crystal Rdz PA-C PATIENT NAME: Indigo Alves DATE: April 10, 2022 TIME: 10:43 AM PAGER/CONTACT #[facility] History of Past illness Narrative* Problem Noted Date Resolved Date Acute pain of right shoulder 04/05/202211/2021 HTN (hypertension) 05/29/2012 04/04/2016 documented as of this encounter (statuses as of 08/04/2022) [address]22 History of Past illness Narrative* Problem Noted Date Resolved Date Acute pain of right shoulder 04/05/202211/2021 HTN (hypertension) 05/29/2012 04/04/2016 documented as of this encounter (statuses as of 08/09/2022) [facility] History of Past illness Narrative* Problem Noted Date Resolved Date Acute pain of right shoulder 04/05/202211/2021 HTN (hypertension) 05/29/2012 04/04/2016 documented as of this encounter (statuses as of 08/09/2022) [address]22 History of Past illness Narrative* Problem Noted Date Resolved Date Acute pain of right shoulder 04/05/202211/2021 HTN (hypertension) 05/29/2012 04/04/2016 documented as of this encounter (statuses as of 08/09/2022) [facility] History of Past illness Narrative* Problem Noted Date Resolved Date Acute pain of right shoulder 04/05/202211/2021 HTN (hypertension) 05/29/2012 04/04/2016 documented as of this encounter (statuses as of 08/11/2022) [address]22 History of Past illness Narrative* Problem Noted Date Resolved Date Acute pain of right shoulder 04/05/202211/2021 HTN (hypertension) 05/29/2012 04/04/2016 documented as of this encounter (statuses as of 08/16/2022) [address]22 History of Past illness Narrative* Problem Noted Date Resolved Date Acute pain of right shoulder 04/05/202211/2021 HTN (hypertension) 05/29/2012 04/04/2016 documented as of this encounter (statuses as of 08/25/2022) [address]22 History of Past illness Narrative* Problem Noted Date Resolved Date Acute pain of right shoulder 04/05/202211/2021 HTN (hypertension) 05/29/2012 04/04/2016 documented as of this encounter (statuses as of 08/29/2022) [address]22 History of Past illness Narrative* Problem Noted Date Resolved Date Acute pain of right shoulder 04/05/202211/2021 HTN (hypertension) 05/29/2012 04/04/2016 documented as of this encounter (statuses as of 08/29/2022) [address]22 History of Past illness Narrative* Problem Noted Date Resolved Date Acute pain of right shoulder 04/05/202211/2021 HTN (hypertension) 05/29/2012 04/04/2016 documented as of this encounter (statuses as of 08/31/2022) [address]22 History of Past illness Narrative* Problem Noted Date Resolved Date Acute pain of right shoulder 04/05/202211/2021 HTN (hypertension) 05/29/2012 04/04/2016 documented as of this encounter (statuses as of 09/06/2022) [address] History of Past illness Narrative* Problem Noted Date Resolved Date Acute pain of right shoulder 04/05/202211/2021 HTN (hypertension) 05/29/2012 04/04/2016 documented as of this encounter (statuses as of 09/08/2022) [address]22 History of Past illness Narrative* Problem Noted Date Resolved Date Acute pain of right shoulder 04/05/202211/2021 HTN (hypertension) 05/29/2012 04/04/2016 documented as of this encounter (statuses as of 09/14/2022) [address] History of Past illness Narrative* Problem Noted Date Resolved Date Acute pain of right shoulder 04/05/202211/2021 HTN (hypertension) 05/29/2012 04/04/2016 documented as of this encounter (statuses as of 09/14/2022) [address] History of Past illness Narrative* Problem Noted Date Resolved Date Acute pain of right shoulder 04/05/202211/2021 HTN (hypertension) 05/29/2012 04/04/2016 documented as of this encounter (statuses as of 09/22/2022) [facility] Narrative* Problem Noted Date Resolved Date Acute pain of right shoulder 04/05/202211/2021 HTN (hypertension) 05/29/2012 04/04/2016 documented as of this encounter (statuses as of 10/04/2022) [facility] of [facility] illness Narrative* Problem Noted Date Resolved Date Acute pain of right shoulder 04/05/202211/2021 HTN (hypertension) 05/29/2012 04/04/2016 documented as of this encounter (statuses as of 10/17/2022) [facility] of Past illness Narrative* Problem Noted Date Resolved Date Acute pain of right shoulder 04/05/202211/2021 HTN (hypertension) 05/29/2012 04/04/2016 documented as of this encounter (statuses as of 10/17/2022) [facility] Narrative* Problem Noted Date Resolved Date Acute pain of right shoulder 04/05/202211/2021 HTN (hypertension) 05/29/2012 04/04/2016 documented as of this encounter (statuses as of 10/18/2022) [facility] Past [facility] Narrative* Problem Noted Date Resolved Date Acute pain of right shoulder 04/05/202211/2021 HTN (hypertension) 05/29/2012 04/04/2016 documented as of this encounter (statuses as of 10/23/2022) [facility] Narrative* Problem Noted Date Resolved Date Acute pain of right shoulder 04/05/202211/2021 HTN (hypertension) 05/29/2012 04/04/2016 documented as of this encounter (statuses as of 10/24/2022) [facility] of [facility] Narrative* Problem Noted Date Resolved Date Acute pain of right shoulder 04/05/202211/2021 HTN (hypertension) 05/29/2012 04/04/2016 documented as of this encounter (statuses as of 10/26/2022) [address] History of Past illness Narrative* Problem Noted Date Resolved Date Acute pain of right shoulder 04/05/202211/2021 HTN (hypertension) 05/29/2012 04/04/2016 documented as of this encounter (statuses as of 10/26/2022) [address] History of Past illness Narrative* Problem Noted Date Resolved Date Acute pain of right shoulder 04/05/202211/2021 HTN (hypertension) 05/29/2012 04/04/2016 documented as of this encounter (statuses as of 10/26/2022) [address] History of Past illness Narrative* Problem Noted Date Resolved Date Acute pain of right shoulder 04/05/202211/2021 HTN (hypertension) 05/29/2012 04/04/2016 documented as of this encounter (statuses as of 10/31/2022) [address]22 History of Past illness Narrative* Problem Noted Date Resolved Date Acute pain of right shoulder 04/05/202211/2021 HTN (hypertension) 05/29/2012 04/04/2016 documented as of this encounter (statuses as of 11/07/2022) [address]22 History of Past illness Narrative* Problem Noted Date Resolved Date Acute pain of right shoulder 04/05/202211/2021 HTN (hypertension) 05/29/2012 04/04/2016 documented as of this encounter (statuses as of 11/07/2022) [address]22 History of Past illness Narrative* Problem Noted Date Resolved Date Acute pain of right shoulder 04/05/202211/2021 HTN (hypertension) 05/29/2012 04/04/2016 documented as of this encounter (statuses as of 11/10/2022) [address]22 History of Past illness Narrative* Problem Noted Date Resolved Date Acute pain of right shoulder 04/05/202211/2021 HTN (hypertension) 05/29/2012 04/04/2016 documented as of this encounter (statuses as of 11/14/2022) [address] History of Past illness Narrative* Problem Noted Date Resolved Date Acute pain of right shoulder 04/05/202211/2021 HTN (hypertension) 05/29/2012 04/04/2016 documented as of this encounter (statuses as of 11/16/2022) [facility] Narrative* Problem Noted Date Resolved Date Acute pain of right shoulder 04/05/202211/2021 HTN (hypertension) 05/29/2012 04/04/2016 documented as of this encounter (statuses as of 11/17/2022) [address] History of Past illness Narrative* Problem Noted Date Resolved Date Acute pain of right shoulder 04/05/202211/2021 HTN (hypertension) 05/29/2012 04/04/2016 documented as of this encounter (statuses as of 11/20/2022) [address] History of Past illness Narrative* Problem Noted Date Resolved Date Acute pain of right shoulder 04/05/202211/2021 HTN (hypertension) 05/29/2012 04/04/2016 documented as of this encounter (statuses as of 11/30/2022) [address] History of Past illness Narrative* Problem Noted Date Resolved Date Acute pain of right shoulder 04/05/202211/2021 HTN (hypertension) 05/29/2012 04/04/2016 documented as of this encounter (statuses as of 12/01/2022) [address] History of Past illness Narrative* Problem Noted Date Resolved Date Acute pain of right shoulder 04/05/202211/2021 HTN (hypertension) 05/29/2012 04/04/2016 documented as of this encounter (statuses as of 12/01/2022) [address] History of Past illness Narrative* Problem Noted Date Resolved Date Acute pain of right shoulder 04/05/202211/2021 HTN (hypertension) 05/29/2012 04/04/2016 documented as of this encounter (statuses as of 12/13/2022) [address] History of Past illness Narrative* Problem Noted Date Resolved Date Acute pain of right shoulder 04/05/202211/2021 HTN (hypertension) 05/29/2012 04/04/2016 documented as of this encounter (statuses as of 12/13/2022) [facility] Narrative* Problem Noted Date Resolved Date Acute pain of right shoulder 04/05/202211/2021 HTN (hypertension) 05/29/2012 04/04/2016 documented as of this encounter (statuses as of 12/14/2022) [facility] Narrative* Problem Noted Date Resolved Date Acute pain of right shoulder 04/05/202211/2021 HTN (hypertension) 05/29/2012 04/04/2016 documented as of this encounter (statuses as of 12/15/2022) [facility] of Past illness Narrative* Problem Noted Date Diagnosed Date Resolved Date Acute pain of right shoulder 04/05/2022 07/03/2022 HTN (hypertension) 05/29/2012 6 documented as of this encounter (statuses as of 08/06/2023) [facility] History of Present illness Narrative* Lilia Murphy, PT - 04/05/2022 9:42 AM EDT Episode Visit Count: 1 Therapist That Will Oversee The Plan Of Care: Lilia Murphy PT Start of Care Date: 04/05/22 Onset Date: 03/06/22 Plan of Care Certification Date: 04/05/22 Next Certification Due Date: 06/14/22 Patient Identified by Name and Date of : Yes REHABILITATION AND SPORTS THERAPY PHYSICAL THERAPY EVALUATION PLAN OF CARE: Assessment: Indigo Alves presents with diagnosis of acute right shoulder pain that interferes with reaching behind back;reaching overhead;use hand with arm at shoulder level (repetitive motions) . She presents with impairments in ADL's, independence in exercise, overall function, posture, strength and symptom management. PROMIS (Patient-Reported Outcomes Measurement Information System) scores were reviewed and all domains identified as a rehabilitation concern. Prognosis for therapy is Good dueto: current objective clinical presentation . She will benefit from skilled therapy services to meet the goals established for this plan of care as noted below. Goals for Episode of Care: created on 04/05/22 through 06/14/22 [place] in home exercise program. Patient will decrease pain to 2/10 with functional activities to allow patient to improve toleranceto work and ADL's. Patient will increase active ROM of right shoulder to equal left to allow pt to to improve performance of ADLs. Patient will demonstrate increase in right shoulder strength for IR, flexion and abduction strengthto 5/5 during manual muscle testing in order to improve function for prior functional tasks. Perform movements of shoulder with decreased report of symptoms/pain in 8 weeks. Patient Goals: decrease pain , be able to use arm better Planned Interventions, Frequency, and Duration: Current Frequency: 1x/week Duration: 8 weeks Total Number of Visits Planned: 8 Planned Treatment Interventions: Therapeutic exercise (06486);Neuromuscular re- education (04603);Manual therapy (05337);Therapeutic activities (97794);Self- usp management (96094);Patient/Family/Caregiver Education;Body Mechanics Training;Ultrasound (44980) PLAN FOR NEXT VISIT: Will upgrade to rep band scapular retraction and alphabet on wall . Patient demonstrates good understanding of plan of care and treatment. The above goals and plan of care were discussed and agreed upon by patient/family. SUBJECTIVE: Indigo Alves is a 46 year old female seen today for Pt notes that she has had more acute pain in shoulder in the last month, has had trouble with shoulder for some time but more acute nature of pain. Has gone to ER and urgent care with steroid and used sling for awhile Patient Goals: decrease pain , be able to use arm better Functional Limitations: reaching behind back;reaching overhead;use hand with arm at shoulder level (repetitive motions) Prior Level of Function: Independent without limitations Relevant History Right or Left Handed: Right Employment: [employer]ual [employer]: See Comment [employer] Occupation: [employer] 5 hour shifts Recreation / Current Exercise: gym 3x/week Intake Information: Prescription present Previous Treatment: Steroids ;Ice ;NSAIDs ;Muscle relaxer Pain: Pain Pain Level: 1 (worst in last week 10) Pain Location: Shoulder - Right Description: Aching (pinching, burning) Frequency: Continuous Post Treatment Pain Post Treatment Pain Level: Worse Post Treatment Pain Location: Shoulder - Right Post Treatment Pain Description: Sore;Aching PROMIS Scales Higher is Better 11/10/2020 01/24/2022 04/04/2022 Phys Func - Score - - 36 (moderate dysfunction) Phys Func - Percentile - - 8 % Social Roles - Score - - 35 (moderate dysfunction) Social Role - Percentile - - 7 % GH Physical - Score 42.3 42.3 (Good) - GH Physical - Percentile 22 % 22 % - GH Mental - Score 45.8 38.8 (Fair) - GH Mental - Percentile 34 % 13 % - Self-Eff Symptom - Score - - 37 (Low) Self-Eff Symptom - Percentile - - 10 % T-scores: mean of general population = 50. 5 points is clinically meaningfully difference Percentiles provide an indication of how the patient's score ranks in relation to the general population. Higher percentile rankings indicate better function/quality of life. 50th percentile is the average of the general population and indicates half of respondents had a worse score. Lower is Better 11/18/2019 04/04/2022 Fatigue - Score 74 (severe) 66 (moderate) Fatigue - Percentile 1 % 5 % T-scores: mean of general population = 50. 5 points is clinically meaningfully difference Percentiles provide an indication of how the patient's score ranks in relation to the general population. Higher percentile rankings indicate better function/quality of life. 50th percentile is the average of the general population and indicates half of respondents had a worse score. OBJECTIVE MEASURES WITH LEVEL OF FUNCTION: Posture / Alignment Posture: Rounded shoulders UE AROM R Shoulder Flex: 153 Degrees R Shoulder ABduction: 165 Degrees R Shoulder Internal Rotation (Functional): 3 less R Shoulder External Rotation (Functional): T4 L Shoulder Flex: 164 Degrees L Shoulder ABduction: 165 Degrees L Shoulder Internal Rotation (Functional): T8 L Shoulder External Rotation (Functional): T4 UE and Cervical Strength Strength Tested: Shoulder Functional Strength R Shoulder Flexion: 4+/5 R Shoulder Abduction (C5): 4+/5 R Shoulder Internal Rotation: 4/5 R Shoulder External Rotation: 5/5 R Elbow Flexion (C6): 5/5 Functional Strength Functional Strength: Pt notes difficulty with reaching and lifting Special Tests - Shoulder Shoulder Special Tests: Peggy [place]: Right Positive Education: Education Learning Preferences: Demonstration;Explanation;Performance;Printed Materials Barriers: None Learning/educational needs: Home exercise program;Plan of Care TREATMENT: PT Treatment Interventions: Therapeutic Exercise Evaluation Therapeutic Exercise: 1: education on anatomy and biomechanics of the shoulder as it relates to her sx 2: isometric IR 5 sec hold 1x10 3: trial of orange rep band IR isometric but painful 4: orange rep band shoulder extension 1x10 5: orange rep band should ER with towel roll at elbow 1x10 6: active scapular retraction Skilled Intervention: Patient was educated in proper exercise technique and purpose for exercises. Skilled judgment was provided in selection of appropriate interventions. Provided written instruction for home exercise program to facilitate proper performance and compliance. Correct performance of therapeutic exercises was facilitated with verbal and visual cuing. Educated patient on rationale for performing exercises in regards to ROM and function . Patient education as noted. Home Exercise Program Assigned: 1: as outlined above Billing * Evaluation Low Complexity: 1 Unit Therapeutic Exercise Treatment Minutes: 25 Total Treatment Time Minutes (timed/untimed): 45 Lilia Murphy PT documented in this [facility]07-05-2022 Miscellaneous Notes* Telephone Encounter - Mignon Aragon LPN - 04/04/2022 11:34 AM EDT Patient has been identified by name and date of : Yes Patient phones for refill(s): Pending Prescriptions Disp Refills METOPROLOL TARTRATE 50 MG TABLET 180 tablet 3 Sig: Take 1 tablet by mouth twice daily. YIN: No Date of last office visit in primary care: 03/20/22 Please advise. Thank you. Mignon Aragon LPN documented in this [facility]06-27-2022 Miscellaneous Notes* Telephone Encounter - Ruben Randolph LPN - 03/27/2022 5:50 PM EDT Please assist pt with scheduling MRI in 6 months. Ruben aRndolph LPN * Telephone Encounter - Jaguar Cook PA-C - 03/27/2022 5:01 PM EDT Notified through [email or web address]. Please schedule 6mo Telephone on 03/27/22 MRI LIVER WO/W IVCON Liver nodule Maikol Love PA-C documented in this [facility] Miscellaneous Notes* Telephone Encounter - Jaguar Cook PA-C - 03/23/2022 12:45 PM EDT Please set up consult with PT to formulate plan. Get Medical Advice on 03/23/22 CONSULT TO PHYSICAL THERAPY Acute pain of right shoulder (primary encounter diagnosis) Maikol Love PA-C documented in this encounterPrem[facility]06-[facility]22 History of Present illness Narrative* RT Car(Shyam) - 03/23/2022 10:40 AM EDT Radiology Service Progress Note DATE OF SERVICE: March 23, 2022 TIME: 11:16 AM PATIENT IDENTITY VERIFICATION COMPLETED USING TWO (2) STANDARD IDENTIFIERS: Name and Date of confirmed by patient verbally. FALL SCREENING: Has the patient had 2 falls in the last year or 1 fall with injury or currently using an Ambulatory Assistive Device (Walker, Cane, Wheelchair, Crutches, etc.)? No PATIENT GENDER DATA: Female. status: : No status: NO. PATIENT RELEVANT IMPLANT DATA REVIEWED: Yes ALLERGIES: Reviewed and unchanged CONTRAST ALLERGY: NO. EXAM: MRI - CONTRAST TYPE: GROUP II PERIPHERAL IV DATA: Ambulatory: A peripheral IV was started in the Left forearm with a Angio cath: 22 gauge. RADIOLOGY DEPARTMENT: MR; Exam(s) Completed: Body: Liver (routine) SIGNATURE: RT Car(Shyam) PATIENT NAME: Indigo Alves DATE: March 23, 2022 TIME: 11:16 AM documented in this encounterPrem[facility]06-20-2022 Instructions* Patient Instructions* Jaguar Cook PA-C - 03/20/2022 2:57 PM EDT Rest in a comfortable position. Avoid activities or positions which increase pain. Please review the sheet of exercises provided for stretching. No over head lifting, or extended arm pushing or pulling over the next few days. Moist heat generally also helps muscles to relax, You may apply it for 10-15 minutes every few hours if needed. Ice may also help similarly to block pain Call with a progress report over the next few days. documented in this encounterPrem[facility]06-20-2022 History of Present illness Narrative* Jaguar Cook PA-C - 03/20/2022 2:00 PM EDT 46 year old female with c/o here to review need for TRIN[employer] from work. Right shoulder pain is most bothersome currently. Pain over anterior shoulder. No known over use or injury. Was at work when pain started but states nothing occurred to Nausea. Was standing and talking to boss, and sudden pain. UC 03/06/2022 Biggest concern is pain in right arm 03/06/2022 Dr. Uribe: prednisone taper 40-10 #15- No significant benefit. XR was negative. Icing, using naproxen. Pain MRI moved to 03/23/22 for liver nodule, she accidentally cancelled the wrong appointment. Has a lot bowel movements: not as much diarrhea. Has some feeling of bloating lower abdomen, pelvis. Has Mirena: no period. Has had some spotting and cramping over las three weeks. From last visit: Low energy which is unusual Chronic pain Trouble keeping eyes open during shift, falling asleep. Usually tired but has all the energy she needs to push through and do extra things as well, not now. Has taken leave from work until she feels better. Yesterday had shoulder pain on right right: went to urgent care: given prednisone taper 50mg to 0 over 5 days - hasn't made much difference. Greatest pain: all over from fibromyalgia Issues with epicondylitis in elbow click in right hip without pain Nothing seems to help. Frequent urinaton without pain, small to moderate amounts, normal color: no pain or other UTI sx.. No vaginal discusarge. Still clotting, mild bleeding since January which is unusual for her, on Mirena No unusual discharge, no dyspareunia. Stools mostly diarrhea, cramping, some bloating. BM 2 days with constipation with one little hard pebble Today 3 watery, brown, no mucus, blood. Occasional feels need and then can't. GERD controlled on omeprazole. Skin, hair; no changes Notes left side of throat feels like sticking to larynx, feels on swallowing Mild sore throat all the time ENT told her it was allergies, no scope done. No weight changes. Appetite is starving but feels forcing herself to eat enough at the same time. No heartburn, acid reflux, vomiting. Patient had to terminate call due to bathroom needs. HISTORIES FAMILY HISTORY Problem Relation Age of Onset Hypertension Mother Hyperlipidemia Mother None Father other (Other) Father MVA - heart attack Diabetes Brother Hyperlipidemia Brother Heart Brother Asthma Son Allergies Son Allergies Son Cancer Sister 41 cervical, ?lymph Diabetes Sister Heart Brother CAD-quadruple bypass, age 46 Heart Brother CAD stent placement PAST MEDICAL HISTORY Diagnosis Date Anxiety generalized anxiety & panic disorder (diagnosed by PCP) Chronic back pain mild scolosis and sciatica & SI joint locks up; was seeing pain management, now sees PCP GERD (gastroesophageal reflux disease) Hemorrhoids Hyperlipidemia 2011 Hypertension Marijuana use Vertigo PAST SURGICAL HISTORY Procedure Laterality Date BREAST REDUCTION 07/2020 CHOLECYSTECTOMY 2009 Cholecystectomy LIG/TRNSXJ FLP TUBE ABDL/VAG APPR UNI/BI Tubal ligation Social History Tobacco Use Smoking status: Never Smoker Smokeless tobacco: Never Used Vaping Use Vaping Use: Never used Substance Use Topics Alcohol use: No Drug use: No Comment: positive drug screen for marijuana - last use 2015 ACTIVE PROBLEM LIST Anxiety State Other Acne Pain in Joint, Lower Leg Backache, Unspecified Hyperlipidemia With Target Ldl Less Than 130 Marijuana Use Other Enthesopathy of Ankle and Tarsus Peroneal Tendonitis of Right Lower Extremity Vertigo 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 Hypertension Nonorganic Sleep Disorder Sacroiliac Joint Pain Fibromyalgia Convulsion, Non-Epileptic (Hcc) Neck Pain Upper Back Pain Bilateral Shoulder Pain Other Chest Pain Palpitations Gerd (Gastroesophageal Reflux Disease) Elevated Liver Enzymes Internal Hemorrhoid Current Outpatient Medications Medication Sig Dispense Refill ibuprofen (MOTRIN) 800 mg tablet Take 1 tablet by mouth every 8 hours as needed (FOR PAIN. TAKE WITH FOOD). 60 tablet 2 cyclobenzaprine (FLEXERIL) 10 mg tablet Take 1 tablet by mouth three times daily as needed for muscle spasm. 30 tablet 2 albuterol HFA (PROVENTIL HFA, VENTOLIN HFA) 90 mcg/actuation inhaler Inhale 2 Puffs as instructed every 6 hours as needed. 6.7 g 5 simvastatin (ZOCOR) 10 mg tablet Take 1 tablet by mouth once daily. 30 tablet 11 Omeprazole Magnesium (PRILOSEC OTC) 20 mg tablet Take 1 tablet by mouth once daily. 30 tablet 5 ondansetron orally disintegrating (ZOFRAN ODT) 4 mg disintegrating tablet Take 1 tablet by mouth every 6 hours as needed for nausea/vomiting. 10 tablet 2 ondansetron orally disintegrating (ZOFRAN ODT) 4 mg disintegrating tablet Take 1 tablet by mouth every 6 hours as needed for nausea/vomiting. 10 tablet 1 peg 3350-Electrolytes (GOLYTELY) 236-22.74-6.74 -5.86 gram suspension Refer to printed prep instructions from your provider. 4000 mL 0 metoprolol tartrate, short acting, (LOPRESSOR) 50 mg tablet Take 1 tablet by mouth twice daily. 180tablet 3 levonorgestrel (MIRENA) 20 mcg/24 hours (5 yrs) 52 mg IUD 1 Each by INTRAUTERINE route as directed.1 Each 0 Cholecalciferol, Vitamin D3, 1,000 unit cap Take 1 capsule by mouth once daily. 0 Current Facility-Administered Medications Medication Dose Route Frequency Provider Last Rate Last Admin perflutren lipid microspheres 1.3 mL in NaCl (PF) 0.9% 10 mL injection (DEFINITY) INTRAVENOUS DIRECTED PRN Lyle Mccauley DO sodium chloride 0.9 % (flush) 10 mL (BD POSIFLUSH) 10 mL INTRAVENOUS DIRECTED PRN Lyle Mccauley DO COVID-19 VACCINE(1) Never done BP CONTROLLED (<130/80) Never done DTAP,TDAP,TD(1 - Tdap) Never done MAMMOGRAM due on 05/25/2022 EXAM: BP 118/78 (BP Site: Left Arm, BP Position: Sitting, BP Cuff Size: Regular Adult) Pulse 68 Resp 18 Ht 158 cm (5' 2.21 ) Wt 78.5 kg (173 lb) LMP 10/17/2020 SpO2 98% BMI 31.43 kg/m Pleasant overweight adult woman in no acute distress. Alert and oriented all spheres. Normal affectand cognition. Speech normal. No deficits to learning or comprehension. Skin warm, dry, pink to lips and nailbeds. Normal turgor. Respirations regular and unlabored. HEENT: NCAT. No scleral icterus or conjunctival injection. TM's clear. Nose and oropharynx free from injection or lesion. Oral membranes moist and pink. No cervical lymph nodes. Thyroid non-tender, no masses, or enlargement. Carotids pulses 2+/4+ without bruits. No JVD with HOB at 30 degrees. Chest is normal shape. Lungs are clear to all [place] with good air exchange through out. HRRR without murmur or gallop. No lifts, heaves, or rubs. Abdomen: active bowel sounds throughout, soft, nontender, no masses or organomegaly. No CVAT. Extrem: no clubbing or cyanosis. Edema: none. Extremities are warm and pink with prompt capillary refill. 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 Patient has full range of motion, negative Atlantic's, negative Horne, negative lift off, negative speeds. No pain with rotation through multiple higginbotham. ASSESSMENT/PLAN: 1. Acute pain of right shoulder - ICD9: 719.41, ICD10: M25.511 (primary diagnosis) No clear evidence of tendinitis, dysfunction to indicate tear. AA OS shoulder rehab sheet provided with instructions for exercise, discussed physical therapy if not improving. 2. Fibromyalgia - ICD9: 729.1, ICD10: M79.7 Persistent chronic pain, no different than previous. Patient is under evaluation for possible hepatitis and high blood colored nodule left lobe of the liver, pending MRI. 3. Elevated liver enzymes - ICD9: 790.5, ICD10: R74.8 Resolved 4. Diarrhea, unspecified type - ICD9: 787.91, ICD10: R19.7 Improved Follow-up after MRI Jaguar Cook PA-C documented in this encounterCleveland [id number] Miscellaneous Notes* Telephone Encounter - Lilia Marrero Ma - 03/09/2022 1:46 PM EDT Pt notified that letter is at med recs * Telephone Encounter - Jaguar Cook PA-C - 03/09/2022 1:23 PM EDT Letter written and printed, to nursing desk. Thanks, Maikol Cook PA-C * Telephone Encounter - Jie Armijo LPN - 03/07/2022 2:34 PM EDT Indigo had VV this AM allie/Maikol. Employer is wanting a letter from Maikol DIAZ, stating he is seeing/tx her. Employer is wanting Indigo to be off until the end of March, so that she can get things figured out. 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 documented in this [facility]Prem[facility]06[facility] History of Present illness Narrative* Jaguar Cook PA-C - 03/07/2022 10:13 AM EDT [facility] was used for evaluation of this patient. Location of patient: [place] Patient was offered a virtual/telemedicine appointment in lieu of an office visit due to recommendations to reduce patient exposure to COVID-19. Patient is aware of limitations of performing the visit without a face to face visit in the office setting and agrees. 10:13 AM 46 year old female with c/o Feels there is definitely something going on with her. MRI on for liver nodule Low energy which is unusual Chronic pain Trouble keeping eyes open during shift, falling asleep. Usually tired but has all the energy she needs to push through and do extra things as well, not now. Has taken leave from work until she feels better. Yesterday had shoulder pain on right right: went to urgent care: given prednisone taper 50mg to 0 over 5 days - hasn't made much difference. Greatest pain: all over from fibromyalgia Issues with epicondylitis in elbow click in right hip without pain Nothing seems to help. Frequent urinaton without pain, small to moderate amounts, normal color: no pain or other UTI sx.. No vaginal discusarge. Still clotting, mild bleeding since January which is unusual for her, on Mirena No unusual discharge, no dyspareunia. Stools mostly diarrhea, cramping, some bloating. BM 2 days with constipation with one little hard pebble Today 3 watery, brown, no mucus, blood. Occasional feels need and then can't. GERD controlled on omeprazole. Skin, hair; no changes Notes left side of throat feels like sticking to larynx, feels on swallowing Mild sore throat all the time ENT told her it was allergies, no scope done. No weight changes. Appetite is starving but feels forcing herself to eat enough at the same time. No heartburn, acid reflux, vomiting. Patient had to terminate call due to bathroom needs. Component Latest Ref Rng & Units 01/27/2022 Protein, Total 6.3 - 8.0 g/dL 7.7 Albumin 3.9 - 4.9 g/dL 4.4 Calcium 8.5 - 10.2 mg/dL Bilirubin, Total 0.2 - 1.3 mg/dL 0.2 Alkaline Phosphatase 34 - 123 U/L 187 (H) AST 13 - 35 U/L 161 (H) ALT 7 - 38 U/L 132 (H) Glucose 74 - 99 mg/dL BUN 7 - 21 mg/dL Creatinine 0.58 - 0.96 mg/dL Sodium 136 - 144 mmol/L Potassium 3.7 - 5.1 mmol/L Chloride 97 - 105 mmol/L CO2 22 - 30 mmol/L Anion Gap 9 - 18 mmol/L eGFR >=60 mL/min/1.73m Bilirubin, Conjug <0.2 mg/dL <0.2 EBV VCA IgG, Qual Negative Positive (A) EBV VCA IgM, Qual Negative Negative EBV EA Ab, Qual Negative Negative EBV NA Ab, Qual Negative Positive (A) Interpretation (EBVPNL) Past Infection Transglutaminase Ab, IgA <20 Units Transglutaminase IgA Qualitative Negative, Test not Indicated Interpretation (Celiac Screen) HIV 12 Combo (Ag/Ab) Nonreactive Nonreactive HIV 1/2 Ab HIV Interpretation Gliadin Ab, IgA <20 Units Gliad Deamidated IgA Qual Negative, Test not Indicated CMV IgG Qualitative Negative Positive (A) CMV Antibody, IgG U/mL >10.00 Hep C Antibody IA Negative Negative IgA 70 - 400 mg/dL Endomysial Ab, IgA <1:10, Test Not Indicated CMV IgM, Qual Negative Negative Hep A Ab, IgM Negative Negative Hep B Core Ab, IgM Negative Negative Hep B Surface Ag Negative Negative Component Latest Ref Rng & Units 01/23/2022 GLUCOSE UA (POCT) Negative mg/dL Negative BILIRUBIN UA (POCT) Negative Small (A) KETONE UA (POCT) Negative mg/dL Negative SPECIFIC GRAVITY UA (POCT) 1.005 - 1.030 1.020 HEMOGLOBIN/BLOOD UA (POCT) Negative Small (A) PH UA (POCT) 4.5 - 8.0 5.5 PROTEIN UA (POCT) Negative mg/dL Negative UROBILINOGEN UA (POCT) Normal E.U./dL 2.0 (A) NITRITE UA (POCT) Negative Negative LEUKOCYTES UA (POCT) Negative Trace (A) COLOR UA (POCT) Yellow CLARITY UA (POCT) Clear Culture <10,000 CFU/ml Mixed microbiota (A) HISTORIES FAMILY HISTORY Problem Relation Age of Onset Hypertension Mother Hyperlipidemia Mother None Father other (Other) Father MVA - heart attack Diabetes Brother Hyperlipidemia Brother Heart Brother Asthma Son Allergies Son Allergies Son Cancer Sister 41 cervical, ?lymph Diabetes Sister Heart Brother CAD-quadruple bypass, age 46 Heart Brother CAD stent placement PAST MEDICAL HISTORY Diagnosis Date Anxiety generalized anxiety & panic disorder (diagnosed by PCP) Chronic back pain mild scolosis and sciatica & SI joint locks up; was seeing pain management, now sees PCP GERD (gastroesophageal reflux disease) Hemorrhoids Hyperlipidemia 2012 Hypertension Marijuana use Vertigo PAST SURGICAL HISTORY Procedure Laterality Date BREAST REDUCTION 07/2020 CHOLECYSTECTOMY 2010 Cholecystectomy LIG/TRNSXJ FLP TUBE ABDL/VAG APPR UNI/BI Tubal ligation Social History Tobacco Use Smoking status: Never Smoker Smokeless tobacco: Never Used Vaping Use Vaping Use: Never used Substance Use Topics Alcohol use: No Drug use: No Comment: positive drug screen for marijuana - last use 2015 ACTIVE PROBLEM LIST Anxiety State Other Acne Pain in Joint, Lower Leg Backache, Unspecified Hyperlipidemia With Target Ldl Less Than 130 Marijuana Use Other Enthesopathy of Ankle and Tarsus Peroneal Tendonitis of Right Lower Extremity Vertigo 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 Hypertension Nonorganic Sleep Disorder Sacroiliac Joint Pain Fibromyalgia Convulsion, Non-Epileptic (Hcc) Neck Pain Upper Back Pain Bilateral Shoulder Pain Other Chest Pain Palpitations Gerd (Gastroesophageal Reflux Disease) Elevated Liver Enzymes Internal Hemorrhoid Current Outpatient Medications Medication Sig Dispense Refill predniSONE (DELTASONE) 10 mg tablet Take 5 tablets by mouth once daily for 1 day, THEN 4 tablets once daily for 1 day, THEN 3 tablets once daily for 1 day, THEN 2 tablets once daily for 1 day, THEN 1tablet once daily for 1 day. 15 tablet 0 ibuprofen (MOTRIN) 800 mg tablet Take 1 tablet by mouth every 8 hours as needed (FOR PAIN. TAKE WITH FOOD). 60 tablet 2 cyclobenzaprine (FLEXERIL) 10 mg tablet Take 1 tablet by mouth three times daily as needed for muscle spasm. 30 tablet 2 albuterol HFA (PROVENTIL HFA, VENTOLIN HFA) 90 mcg/actuation inhaler Inhale 2 Puffs as instructed every 6 hours as needed. 6.7 g 5 simvastatin (ZOCOR) 10 mg tablet Take 1 tablet by mouth once daily. 30 tablet 11 Omeprazole Magnesium (PRILOSEC OTC) 20 mg tablet Take 1 tablet by mouth once daily. 30 tablet 5 ondansetron orally disintegrating (ZOFRAN ODT) 4 mg disintegrating tablet Take 1 tablet by mouth every 6 hours as needed for nausea/vomiting. 10 tablet 2 ondansetron orally disintegrating (ZOFRAN ODT) 4 mg disintegrating tablet Take 1 tablet by mouth every 6 hours as needed for nausea/vomiting. 10 tablet 1 peg 3350-Electrolytes (GOLYTELY) 236-22.74-6.74 -5.86 gram suspension Refer to printed prep instructions from your provider. 4000 mL 0 metoprolol tartrate, short acting, (LOPRESSOR) 50 mg tablet Take 1 tablet by mouth twice daily. 180tablet 3 levonorgestrel (MIRENA) 20 mcg/24 hours (5 yrs) 52 mg IUD 1 Each by INTRAUTERINE route as directed.1 Each 0 Cholecalciferol, Vitamin D3, 1,000 unit cap Take 1 capsule by mouth once daily. 0 Current Facility-Administered Medications Medication Dose Route Frequency Provider Last Rate Last Admin perflutren lipid microspheres 1.3 mL in NaCl (PF) 0.9% 10 mL injection (DEFINITY) INTRAVENOUS DIRECTED PRN Lyle Mccauley, sodium chloride 0.9 % (flush) 10 mL (BD POSIFLUSH) 10 mL INTRAVENOUS DIRECTED PRN Lyle Mccauley, COVID-19 VACCINE(1) Never done BP CONTROLLED (<130/80) Never done DTAP,TDAP,TD(1 - Tdap) Never done MAMMOGRAM due on 05/25/2022 EXAM: LMP 10/17/2020 Pleasant overweight young woman in no acute distress. Alert and oriented all spheres. Normal affectand cognition. Speech normal. No deficits to learning or comprehension. Speaking in full sentences easily. Appears well hydrated in oral membranes, pink lips No scleral icterus or conjunctival injection, Respirations regular unlabored ASSESSMENT/PLAN: 1. Fibromyalgia - ICD9: 729.1, ICD10: M79.7 (primary diagnosis) Will proceed with additional lab. As discussed will need to examine in office. - CBC + DIFF - COMP METABOLIC PANEL - TSH BLD - SED RATE WESTERGREN - LIPASE BLD 2. Elevated liver enzymes - ICD9: 790.5, ICD10: R74.8 - CBC + DIFF - COMP METABOLIC PANEL - TSH BLD - SED RATE WESTERGREN - LIPASE BLD 3. Change in stool - ICD9: 792.1, ICD10: R19.5 - CBC + DIFF - COMP METABOLIC PANEL - TSH BLD - SED RATE WESTERGREN - LIPASE BLD 4. Diarrhea, unspecified type - ICD9: 787.91, ICD10: R19.7 Seeing gastro - CBC + DIFF - COMP METABOLIC PANEL - TSH BLD - SED RATE WESTERGREN - LIPASE BLD 5. Fatigue, unspecified type - ICD9: 780.79, ICD10: R53.83 - CBC + DIFF - COMP METABOLIC PANEL - TSH BLD - SED RATE WESTERGREN - LIPASE BLD Will notify when results are available 17 minute call Jaguar Cook PA-C documented in this encounterPremier [facility]06-[facility] History of Present illness Narrative* Shawn Uribe MD - 03/06/2022 2:36 PM EDT Patient presents with: Pain: right shoulder pain x 1 week HPI: Right shoulder pain: Duration: 1 week Location: Top of the right shoulder Character: Throbbing, pulling/pinching/buring with use Radiation: Sometimes down to the elbow Aggravating: Moving the shoulder - even texting Relieving: Sling, heat, ice, muscle rub Pain relievers: Motrin Associated: Resolved initial right neck pain. Pertinent negatives: Denies numbness, weakness, PAST MEDICAL HISTORY Diagnosis Date Anxiety generalized anxiety & panic disorder (diagnosed by PCP) Chronic back pain mild scolosis and sciatica & SI joint locks up; was seeing pain management, now sees PCP GERD (gastroesophageal reflux disease) Hemorrhoids Hyperlipidemia 2011 Hypertension Marijuana use Vertigo MEDICATIONS: ibuprofen (MOTRIN) 800 mg tablet Take 1 tablet by mouth every 8 hours as needed (FOR PAIN. TAKE WITH FOOD). cyclobenzaprine (FLEXERIL) 10 mg tablet Take 1 tablet by mouth three times daily as needed for muscle spasm. albuterol HFA (PROVENTIL HFA, VENTOLIN HFA) 90 mcg/actuation inhaler Inhale 2 Puffs as instructed every 6 hours as needed. simvastatin (ZOCOR) 10 mg tablet Take 1 tablet by mouth once daily. Omeprazole Magnesium (PRILOSEC OTC) 20 mg tablet Take 1 tablet by mouth once daily. ondansetron orally disintegrating (ZOFRAN ODT) 4 mg disintegrating tablet Take 1 tablet by mouth every 6 hours as needed for nausea/vomiting. ondansetron orally disintegrating (ZOFRAN ODT) 4 mg disintegrating tablet Take 1 tablet by mouth every 6 hours as needed for nausea/vomiting. peg 3350-Electrolytes (GOLYTELY) 236-22.74-6.74 -5.86 gram suspension Refer to printed prep instructions from your provider. metoprolol tartrate, short acting, (LOPRESSOR) 50 mg tablet Take 1 tablet by mouth twice daily. levonorgestrel (MIRENA) 20 mcg/24 hours (5 yrs) 52 mg IUD 1 Each by INTRAUTERINE route as directed. Cholecalciferol, Vitamin D3, 1,000 unit cap Take 1 capsule by mouth once daily. ALLERGIES: ALLERGIES Allergen Reactions House Dust Cough Maple Flavor Swelling Seasonal Allergies Shortness of Breath VITALS: BP 140/98 Pulse 66 Temp 36.1 C (97 F) Resp 21 Wt 77.5 kg (170 lb 12.8 oz) LMP 10/17/2020 SpO2 96% BMI 31.24 kg/m PHYSICAL EXAM: GEN: pleasant, no acute distress, alert HEENT: PERRL, EOMI, MMM NECK: supple, no lymphadenopathy, no thyromegaly, FROM without pain HEART: regular rate, regular rhythm, no murmurs LUNGS: clear to auscultation, no wheezes or crackles, no increased WOB EXT: no clubbing, no cyanosis, no edema SHOULDER: right compared to left. No deformity or swelling. Palpation of clavicle tender, AC joint tender, glenohumeral joint tender anteriorly. ROM: pain with abduction beyond 90 degrees. Impingement test: Positive Right. Cross arm test: Positive Right. ASSESSMENT/PLAN: 1. Acute pain of right shoulder - ICD9: 719.41, ICD10: M25.511 Multiple positive tests. Suspect bursitis, tendonitis, or AC joint arthralgia. - PREDNISONE 10 MG TABLET - taper. Do not take ibuprofen at least the first 3 days while taking steroid. Follow up with - CONSULT TO ORTHOPAEDICS if not improving. Shawn Uribe MD documented in this encounterPremier [facility] History of Present illness Narrative* Yohannes Michael APRN.[facility] - 03/01/2022 10:39 AM EDT Subjective HPI Nontoxic or female presents urgent care chief plaint abdominal pain. Duration of symptom last night. Associated symptoms right-sided abdominal pain. Patient states pain woke her up out of her sleep last night. Rates pain 8 out of 10. States at times is 9 out of 10. Describes pain as sharp. No OTC medications. Denies any other concerns. History of elevated liver enzymes. Denies any fevers nausea vomiting abdominal pain change in bowel or bladder habits. Past medical history prescription medication use allergies reviewed. .Patient presents with: Abdominal Pain: sharp abdominal pain right side last night PAST MEDICAL HISTORY Diagnosis Date Anxiety generalized anxiety & panic disorder (diagnosed by PCP) Chronic back pain mild scolosis and sciatica & SI joint locks up; was seeing pain management, now sees PCP GERD (gastroesophageal reflux disease) Hemorrhoids Hyperlipidemia 2011 Hypertension Marijuana use Vertigo PAST SURGICAL HISTORY Procedure Laterality Date BREAST REDUCTION 07/2020 CHOLECYSTECTOMY 2010 Cholecystectomy LIG/TRNSXJ FLP TUBE ABDL/VAG APPR UNI/BI Tubal ligation ALLERGIES House Dust, Maple Flavor, and Seasonal Allergies MEDICATIONS ibuprofen (MOTRIN) 800 mg tablet Take 1 tablet by mouth every 8 hours as needed (FOR PAIN. TAKE WITH FOOD). cyclobenzaprine (FLEXERIL) 10 mg tablet Take 1 tablet by mouth three times daily as needed for muscle spasm. albuterol HFA (PROVENTIL HFA, VENTOLIN HFA) 90 mcg/actuation inhaler Inhale 2 Puffs as instructed every 6 hours as needed. simvastatin (ZOCOR) 10 mg tablet Take 1 tablet by mouth once daily. Omeprazole Magnesium (PRILOSEC OTC) 20 mg tablet Take 1 tablet by mouth once daily. ondansetron orally disintegrating (ZOFRAN ODT) 4 mg disintegrating tablet Take 1 tablet by mouth every 6 hours as needed for nausea/vomiting. ondansetron orally disintegrating (ZOFRAN ODT) 4 mg disintegrating tablet Take 1 tablet by mouth every 6 hours as needed for nausea/vomiting. metoprolol tartrate, short acting, (LOPRESSOR) 50 mg tablet Take 1 tablet by mouth twice daily. levonorgestrel (MIRENA) 20 mcg/24 hours (5 yrs) 52 mg IUD 1 Each by INTRAUTERINE route as directed. Cholecalciferol, Vitamin D3, 1,000 unit cap Take 1 capsule by mouth once daily. peg 3350-Electrolytes (GOLYTELY) 236-22.74-6.74 -5.86 gram suspension Refer to printed prep instructions from your provider. FAMILY HISTORY Problem Relation Age of Onset Hypertension Mother Hyperlipidemia Mother None Father other (Other) Father MVA - heart attack Diabetes Brother Hyperlipidemia Brother Heart Brother Asthma Son Allergies Son Allergies Son Cancer Sister 41 cervical, ?lymph Diabetes Sister Heart Brother CAD-quadruple bypass, age 46 Heart Brother CAD stent placement Social History Tobacco Use Smoking status: Never Smoker Smokeless tobacco: Never Used Vaping Use Vaping Use: Never used Substance Use Topics Alcohol use: No Drug use: No Comment: positive drug screen for marijuana - last use 2015 BP 142/84 Pulse 63 Temp 36.3 C (97.4 F) (Tympanic) Resp 18 Wt 79.2 kg (174 lb 9.6 oz) LMP10/17/2020 SpO2 98% BMI 31.93 kg/m \ Review of Systems Constitutional: Negative for chills, fever and malaise/fatigue. HENT: Negative for congestion, ear discharge, ear pain, sinus pain and sore throat. Eyes: Negative for blurred vision, pain, discharge and redness. Respiratory: Negative for cough, hemoptysis, sputum production, shortness of breath, wheezing and stridor. Cardiovascular: Negative for chest pain. Gastrointestinal: Positive for abdominal pain. Negative for diarrhea, nausea and vomiting. Musculoskeletal: Negative for myalgias. Skin: Negative for itching and rash. Neurological: Negative for dizziness and headaches. Objective Physical Exam Constitutional: General: She is not in acute distress. Appearance: She is not diaphoretic. HENT: Head: Normocephalic. Mouth/Throat: Mouth: Mucous membranes are moist. Pharynx: Oropharynx is clear. No oropharyngeal exudate or posterior oropharyngeal erythema. Eyes: Conjunctiva/sclera: Conjunctivae normal. Pupils: Pupils are equal, round, and reactive to light. Cardiovascular: Rate and Rhythm: Normal rate and regular rhythm. Heart sounds: Normal heart sounds. Pulmonary: Effort: Pulmonary effort is normal. No tachypnea, accessory muscle usage or respiratory distress. Breath sounds: Normal breath sounds. No stridor. Abdominal: Palpations: Abdomen is soft. Tenderness: There is abdominal tenderness in the right upper quadrant and right lower quadrant. Musculoskeletal: Cervical back: Normal range of motion and neck supple. No rigidity or tenderness. Lymphadenopathy: Cervical: No cervical adenopathy. Skin: General: Skin is warm and dry. Neurological: Mental Status: She is alert and oriented to person, place, and time. ASSESSMENT/PLAN: 1. Abdominal pain, acute, right upper quadrant - ICD9: 789.01, 338.19, ICD10: R10.11 Patient diagnosed with right acute upper abdominal pain. With palpation patient rated pain 9-10 outof 10. With significant abdominal pain with palpation I recommended patient be seen in ED for further evaluation care. Patient states will be seen at [facility]. Patient verbalized understand agrees with plan of care. Yohannes Michael APRN.[facility] documented in this encounterPremier Health [facility]05-16-2022 Miscellaneous Notes* Telephone Encounter - Vibha Zaman - 02/13/2022 8:13 AM EDT Called patient to inform that [facility] and [facility] will not proceed with upper and lower scoped with Shad until such further testing is completed. LV of message and to give me a call directly at [phone] if any questions. Vibha Zaman * Telephone Encounter - Vibha Zaman - 02/09/2022 1:24 PM EDT Called and spoke to patient in regards to message to be sure she wanted to still proceed with upperand lower scopes here at the [facility]. Per patient is going to still come 02/21 for those procedures. Per patient states she reached out to every [facility] and they are booked out. Patient stated [facility] could do 02/28. Patient stated she might go ahead and do that date with them then will have records faxed over to gain clearance to reschedule. Vibha Zaman * Telephone Encounter - Emilia Lunsford LPN - 02/09/2022 12:01 PM EDT Patient called states need to cancel appointment for hemorrhoid surgery on February 22, with Dr Kulkarni, needs to have an Echo done before can have anesthesia. Emilia Lunsford LPN documented in this encounterPremier Health [facility]05-11-2022 Miscellaneous Notes* Telephone Encounter - Ifrah Llanes LPN - 02/08/2022 2:32 PM EDT Called patient and made aware of message from Lo Castellanos CNP. Verbalizes understanding. Ifrah Llanes LPN * Telephone Encounter - Lo Castellanos APRN.[facility] - 02/08/2022 1:37 PM EDT No she has to have the echo-stress completed prior to surgery, EKG and CXR is not enough. Can she complete in [place] or [place] to keep her surgery on track that would be better. Please let her know this. * Telephone Encounter - Ifrah Llanes LPN - 02/08/2022 1:16 PM EDT Patient called to get fax number so [facility] can send over tests that was done there November 2021. Ifrah Llanes LPN * Telephone Encounter - Radha Santos LPN - 02/08/2022 1:03 PM EDT Patient reports the earliest she can schedule her echo at [facility] is 02/28. She did schedule if she needs to proceed with this, but would need to reschedule her surgery with Shad on the . She had an EKG and CXR completed recently at [facility], and states [facility] was going to see if this would be sufficient for pre op? Please advise. Radha Santos LPN documented in this encounterPremier Health [facility]05-11-2022 Instructions* Patient Instructions* Lo Castellanos APRN.[facility] - 02/08/2022 11:35 AM EDT PATIENT PREOPERATIVE INSTRUCTIONS No ref. provider found has scheduled you for your procedure at this surgery center: [facility]: [phone] -- [address] [address]. Please read below carefully for your personalized instructions. Dietary Restrictions: - No solid food after midnight. - You may have 12 ounces of clear liquids (water, clear juices such as apple juice or gatorade, carbonated beverages, clear tea, black coffee, jello) until 2 hours before scheduled arrival at facility. No red/purple coloring and no creamer/sugar Medications: Unless instructed differently below, stay on all of your medications until your surgery. Approved medications to take the morning of surgery with a sip of water: Albuterol, Metoprolol, Omeprazole, Simvastatin If you start any new medications after today's visit, please contact the surgeon's office. Blood Thinning Medications: - Stop NSAIDS (Ibuprofen, Advil, Aleve, Motrin, Celebrex, Mobic, etc.) 7 days before surgery, as directed by your surgeon. - Stop Aspirin 7 days before surgery, as directed by your surgeon. - Stop Vitamin E, ALL multi-vitamins, herbals and dietary supplements 7 days before surgery. - You may take Tylenol (Acetaminophen) or any of your pain medications that do not contain aspirin or NSAIDS as needed. Important Reminders: - If you use CPAP/BIPAP, bring the machine with you to the surgery center. - If you are prescribed inhalers for breathing, continue using them. - Candy, mints, and tobacco products are NOT permitted the morning of surgery. - Hearing aids, dentures and glasses may be worn the morning of surgery. - NO jewelry, body piercings, makeup, hairpins or contacts are to be worn the day of surgery. If you develop symptoms such as a fever, cold, or flu, or have other changes to your health within TWO DAYS of scheduled surgery or the morning of surgery, please contact the surgery center above. Personal Belongings: -Please have photo ID and insurance cards. -If you do not have a copy of advance directives on file with us, please bring a copy with you on the day of surgery. - Leave ALL valuables and money at home or with family members. For Outpatient Procedures: - YOU MUST HAVE A RESPONSIBLE BIOMEDICAL MANAGER TAKE YOU HOME. A HAM TRIMMER OR ELECTRICAL ACCESSORIES I ASSEMBLER CANNOT BE MADE A RESPONSIBLE BIOMEDICAL MANAGER. - We recommend that a responsible person stays with you overnight to take care of you. - You cannot stay in a hotel alone after outpatient surgery. You will not be permitted to have yoursurgery, if you do not have someone to take care of you. Arrival Time for Surgery: - The Surgery Center or hospital where you are having surgery will call the afternoon before surgery (or Sunday for Sunday surgery) with a scheduled arrival time. - If you have not heard by 4 pm, please contact the surgery center above. Please be aware that emergency situations arise, which may delay or change your surgical time. If this happens, we will notify you as soon as possible and regret any inconvenience. If you already have an Advance Directive, please fax a copy to [phone] or email to for it to be added to your chart. If you do not have an Advance Directive, you can find the appropriate form and more information at [email or web address]. We recommend that youcomplete the Advance Directive form found on the website and bring it with you the day of your surgery. It can be witnessed and scanned into your chart that day. Lo Castellanos APRN.[facility] documented in this encounterPremier Health [facility]05-11-2022 History and physical note * Lo Castellanos APRN.CNP - 02/08/2022 11:30 AM EDT HISTORY AND PHYSICAL EXAMINATION SERVICE DATE: 02/08/2022 SERVICE TIME: 11:30 AM PRIMARY CARE PHYSICIAN: Jaguar Cook PA-C REASON FOR VISIT: Indigo Alves is a 46 year old female who is scheduled for Procedure(s): EXAM UNDER ANESTHESIA RECTAL (N/A) HEMORRHOIDECTOMY, INTERNAL AND EXTERNAL SINGLE COLUMN/GROUP (N/A) at the request of @[email or web address]@ for consultation. My final recommendation will be communicated back to the requesting physician by way of shared medical record or letter. Subjective The patient has the following: ACTIVE PROBLEM LIST Anxiety State Other Acne Pain in Joint, Lower Leg Backache, Unspecified Hyperlipidemia With Target Ldl Less Than 130 Marijuana Use Other Enthesopathy of Ankle and Tarsus Peroneal Tendonitis of Right Lower Extremity Vertigo 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 Hypertension Nonorganic Sleep Disorder Sacroiliac Joint Pain Fibromyalgia Convulsion, Non-Epileptic (Hcc) Neck Pain Upper Back Pain Bilateral Shoulder Pain Other Chest Pain Palpitations Gerd (Gastroesophageal Reflux Disease) Elevated Liver Enzymes COVID-19 Immunization Status Overdue - COVID-19 VACCINE (1) Overdue - never done No completion, postpone, frequency change, or communication history exists for this topic. CHIEF COMPLAINT: Pre-op exam HPI: JUVE is a 46 yo seen for PAC due to scheduled above surgery because of constipation/hemorrhoids. 10/18/2021 Dr. Kulkarni The patient is a 45 year old female with a complaint of symptomatic hemorrhoids. The patient notes she has had issues with hemorrhoids for 17 years since the of her child. She notes that she has tissue which prolapses with straining. She has difficulty keeping her perianal clean. She notes occasional seepage. She notes mucus on the toilet paper. With some bowel movements she notes bleeding and discomfort. She notes the symptoms of worsened over the last few years. She denies any issues with constipation or straining. She states her stools are soft and malleable as she has bowel movements. She has no family history of colon cancer. She has not undergone previous colonoscopy The patient is being seen by me today at the request of Dr. Guillermo Lizama MD for my opinion and advice regarding symptomatic mixed hemorrhoids. She is scheduled the surgery but then canceled on 3 occasions. One because her child was sick, one because she was worried about surgery and the third time because she could not get out of work. She cancelled surgery last year. She states she is now ready for surgery. SHe is also noting refluxand progressive constipation REVIEW OF SYSTEMS: General: No weight loss, malaise or fevers. Neurological: No history of TIA's, stroke, BIOLOGICAL INSPECTOR tumor, impaired sensorium, hemiplegia, paraplegia orquadraplegia. No neurological symptoms or problems. Respiratory: No history of current cough or dyspnea, or pneumonia in the past 6 weeks. No history of respiratory/pulmonary symptoms or problems. Cardiovascular: 03/21/2021 Dr. Mccauley ASSESSMENT/PLAN: Chest pain Atypical but with risk factors will do a stress echo If negative no further work up or treatment from a cardiac standpoint at this time. ORELLANA Possible deconditioning and over weight component Check stress echo Palpitations (primary encounter diagnosis) No symptom rhythm correlation on 24-hour Holter 11/03/2020. Hyperlipidemia, mixed On simvastatin 10 mg daily (x 1 year) Last lipid level available 04/22/2020 with triglyceride elevated at 327 otherwise at goal 10-year cardiovascular risk approximately 1% or low risk. Continue aggressive lifestyle modification and may need pharmacologic intervention for triglycerides in the future (increase statin dose and or fenofibrate / omega-3) Essential hypertension Controlled on Metroprolol tartrate 50 mg twice daily Family history of premature CAD We reviewed her history of palpitations which now sounds to actually be more atypical chest pain. She did not have significant rhythm abnormalities on recent Holter monitor in November 2020. She did have some dizziness and chest tightness without symptom rhythm correlation. Her lipid profile shows that her LDL is at a reasonable range however triglycerides remain elevated 327 and although she is in a lower risk category for 10-year cardiovascular events it may be reasonable to increase her statin or consider a medication specifically target the triglycerides. She does have risk factors for CAD and given her CP and ORELLANA will therefore check a stress echo. If this is normal then her symtpoms are noncardiac and she would require no further work up or treatment from a cardiac standpoint. Her blood pressure control is excellent today and would make no changes. Thank you for allowing me the privilege of participating in the care of your patient. Please do nothesitate to contact me if there are any questions. Lyle Mccauley, DO, FACC, FCCP, FACOI Positive for: arrhythmia (h/o palpitations), hyperlipidemia (on rx) and hypertension (on rx) Negative for: anticoagulation therapy, atrial fibrillation, CAD, chest pain, CHF, congenital heart defect, DVT/PE, recent HI, murmur/valvular heart disease, PVD, open heart surgery and valve surgery. GI: SEE HPI Positive for: dysphagia (intermittently with solids and pills), GERD (on rx) and liver disease (fatty liver, liver nodule, pending MRI) Negative for: abdominal pain, hepatitis, irritable bowel syndrome, inflammatory bowel disease, nausea, pancreatitis, vomiting and ETOH >2 drinks/day. : No history of dysuria, frequency or incontinence, stones or chronic kidney disease. No difficulty urinating, nocturia > 1 time per night or hematuria. 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 Endocrine: No history of diabetes. Has not taken steroids within the past 30 days. No history of endocrinological symptoms or problems. Hematology: No history of bleeding or clotting disorder. Patient is not taking anti-coagulation or platelet medications. No history of hematological symptoms or problems. Oncology: No history of CA metastasis, chemo within 30 days, or radiotherapy within 90 days. No history of oncological symptoms or problems. Psych: Positive for: anxiety. Musculoskeletal: Positive for: back pain and joint pain. Skin: Negative for lesions, rash and itching. PAST MEDICAL HISTORY Diagnosis Date Anxiety generalized anxiety & panic disorder (diagnosed by PCP) Chronic back pain mild scolosis and sciatica & SI joint locks up; was seeing pain management, now sees PCP GERD (gastroesophageal reflux disease) Hemorrhoids Hyperlipidemia 2011 Hypertension Marijuana use Vertigo PAST SURGICAL HISTORY Procedure Laterality Date BREAST REDUCTION 07/2020 CHOLECYSTECTOMY 2009 Cholecystectomy LIG/TRNSXJ FLP TUBE ABDL/VAG APPR UNI/BI Tubal ligation FAMILY HISTORY Problem Relation Age of Onset Hypertension Mother Hyperlipidemia Mother None Father other (Other) Father MVA - heart attack Diabetes Brother Hyperlipidemia Brother Heart Brother Asthma Son Allergies Son Allergies Son Cancer Sister 41 cervical, ?lymph Diabetes Sister Heart Brother CAD-quadruple bypass, age 46 Heart Brother CAD stent placement Social History Tobacco Use Smoking status: Never Smoker Smokeless tobacco: Never Used Vaping Use Vaping Use: Never used Substance Use Topics Alcohol use: No Drug use: No Comment: positive drug screen for marijuana - last use 2016 Prior to Admission medications as of 02/07/22 0703 Medication Sig Last Dose Taking ibuprofen (MOTRIN) 800 mg tablet Take 1 tablet by mouth every 8 hours as needed (FOR PAIN. TAKE WITH FOOD). cyclobenzaprine (FLEXERIL) 10 mg tablet Take 1 tablet by mouth three times daily as needed for muscle spasm. albuterol HFA (PROVENTIL HFA, VENTOLIN HFA) 90 mcg/actuation inhaler Inhale 2 Puffs as instructed every 6 hours as needed. simvastatin (ZOCOR) 10 mg tablet Take 1 tablet by mouth once daily. Omeprazole Magnesium (PRILOSEC OTC) 20 mg tablet Take 1 tablet by mouth once daily. ondansetron orally disintegrating (ZOFRAN ODT) 4 mg disintegrating tablet Take 1 tablet by mouth every 6 hours as needed for nausea/vomiting. ondansetron orally disintegrating (ZOFRAN ODT) 4 mg disintegrating tablet Take 1 tablet by mouth every 6 hours as needed for nausea/vomiting. peg 3350-Electrolytes (GOLYTELY) 236-22.74-6.74 -5.86 gram suspension Refer to printed prep instructions from your provider. metoprolol tartrate, short acting, (LOPRESSOR) 50 mg tablet Take 1 tablet by mouth twice daily. levonorgestrel (MIRENA) 20 mcg/24 hours (5 yrs) 52 mg IUD 1 Each by INTRAUTERINE route as directed. Cholecalciferol, Vitamin D3, 1,000 unit cap Take 1 capsule by mouth once daily. No medication comments found. ALLERGIES Allergen Reactions House Dust Cough Maple Flavor Swelling Seasonal Allergies Shortness of Breath Objective PHYSICAL EXAM: General: alert and oriented (x3), healthy appearance and obese. Pertinent negatives noted - not distressed. Skin: normal color, no rash or lesions. HEENT: EOM intact and pupils equal round. Pertinent negatives noted - no carotid bruit. Cardiovascular: regular rate and rhythm, normal S1 and S2, no rub, murmurs, or gallop. Respiratory: normal breath sounds, no wheezes or crackles. No chest wall deformity or tenderness. Abdomen: soft. Pertinent negatives noted - not tender. Extremities: no deformity, no edema or tenderness, no joint swelling or clubbing. Neurological: normal cognition and motor skills. Gait normal. No weakness or sensory deficit. PAIN ASSESSMENT: VITALS: BP 138/90 Pulse 70 Temp (Src) 97.3 (Temporal) Resp 14 Ht 5' 2 (1.58m) Wt 173 lb (78.5kg) SpO2 98% LMP 10/17/2020 BMI 31.63 kg/(m^2). Diagnostic tests reviewed for today's visit: Lab Value Units Date High Low HB No results within date range. HCT No results within date range. WBC No results within date range. PLT No results within date range. NA 137 mmol/L 01/23/2022 144 136 K 3.8 mmol/L 01/23/2022 5.1 3.7 GLUC 110 mg/dL 01/23/2022 99 74 BUN 7 mg/dL 01/23/2022 21 7 CREAT 0.57 mg/dL 01/23/2022 0.96 0.58 PTSEC No results within date range. INR No results within date range. APTT No results within date range. ALT 132 U/L 01/27/2022 38 7 AST 161 U/L 01/27/2022 35 13 TBILI 0.2 mg/dL 01/27/2022 1.3 0.2 TSH No results within date range. Lab Value Units Date High Low HCGQT No results within date range. UHCG No results within date range. HCG, BODY* No results within date range. Lab Value Units Date High Low ABORHD No results within date range. ABSCREEN No results within date range. Hemoglobin A1C (%) Date Value 06/10/2015 5.4 No results found for this or any previous visit (from the past 8760 hour(s)). No results found for this or any previous visit (from the past 04547 hour(s)). Assessment Anxiety state Assessment: marijuana daily, encouraged to withhold week prior to procedure Essential hypertension Assessment: controlled on rx Last 14 BP Last 14 Encounter BP Readings: Date: BP: 02/08/2022 138/90 02/07/2022 118/60 01/27/2022 126/80 01/23/2022 124/80 10/18/2021 126/94 10/04/2021 138/84 05/31/2021 122/72 03/28/2021 126/82 11/04/2020 142/106 10/29/2020 124/80 10/19/2020 138/76 08/12/2020 144/81 07/02/2020 120/76 06/24/2020 133/87 Hyperlipidemia with target LDL less than 130 Assessment: c/w statin Palpitations Assessment: following [facility] cardiology, pt was ordered a stress/echo last year by cardiology that wasnever completed, informed pt this must be completed prior to surgery, SEE ROS GERD (gastroesophageal reflux disease) Assessment: controlled on rx Elevated liver enzymes Assessment: recently prompted a RUQ US, revealing a fatty liver and liver nodule, pt now pending MRI, PCP doing the work up currently Albumin (g/dL) Date Value 01/27/2022 4.4 Bilirubin, Total (mg/dL) Date Value 01/27/2022 0.2 Bilirubin, Conjugated (mg/dL) Date Value 01/27/2022 <0.2 Alkaline Phosphatase (U/L) Date Value 01/27/2022 187 (H) AST (U/L) Date Value 01/27/2022 161 (H) ALT (U/L) Date Value 01/27/2022 132 (H) Protein, Total (g/dL) Date Value 01/27/2022 7.7 METS: Climb a flight of stairs or walk up a hill (5.50 METs) DASI Score: 5.5; Patient denies any chest pain or undue shortness of breath with the above physicalactivity. Clinical Frailty Scale: 3. Well, with treated comorbid disease ASA Class: 3 ANESTHESIA FINDINGS: Intubation History: No history of difficult intubation Significant Anesthesia Considerations: none Airway History: No history of difficult airway [id number] Score: Age: <65 Sex: Female CHF history: No Hypertension history: Yes Stroke/TIA/thromboembolism history: No Vascular disease history: No Diabetes history: No Score: 2 I - PHYSICAL EVALUATION AIRWAY Tracheostomy tube not present Mallampati: II. TM distance: >3 FB. Neck ROM: full ROM without neurological symptoms. Mouth opening: adequate. Short neck: no. Thick neck: no DENTAL Dental findings: teeth intact. II - ANESTHESIA PLAN ASA Score: 3 Anesthetic Plan: other Anesthetic plan additional comments: *PACC/TCI - anesthesia choice. Informed Consent Anesthetic risks, benefits, alternatives, personnel and consent discussed: yes. Patient / Responsible Constitution Party agrees to proceed: yes Patient / Surrogate agrees to blood products: blood products not planned Prepared for Surgery: optimally prepared for surgery, pending (see comment). Pending stress/echo ordered by cardiology 03/2021 for clearance CONSULTS: Patient does not require consults for optimization at this time The Following Tests/Procedures Have Been Initiated: No orders of the defined types were placed in this encounter. Planned Anesthetic: other anesthesia choice Instructions Given to Patient: Instructions located in the after visit summary. Patient given verbal and written preop instructions and voices comprehension and compliance. SIGNATURE: Lo Castellanos APRN.CNP PATIENT NAME: Indigo Alves DATE: February 08, 2022 TIME: 11:30 AM PAGER/CONTACT #: documented in this encounterPremier [facility]05-11-[facility] Miscellaneous Notes* Telephone Encounter - M Nicolette Cook PA-C - 02/08/2022 9:56 AM EDT The following approved medication requests have been transmitted electronically. Signed Prescriptions Disp Refills ibuprofen (MOTRIN) 800 mg tablet 60 tablet 2 Sig: Take 1 tablet by mouth every 8 hours as needed (FOR PAIN. TAKE WITH FOOD). cyclobenzaprine (FLEXERIL) 10 mg tablet 30 tablet 2 Sig: Take 1 tablet by mouth three times daily as needed for muscle spasm. Jaguar Cook PA-C documented in this encounterPremier Health [facility]05-10-2022 History of Present illness Narrative* Nohelia Taylor APRN.CLERICAL ASSOCIATE - 02/07/2022 7:01 AM EDT Indigo is a 46 year old who presents for an annual gynecologic exam with complaints, pelvic pain. Menses: no menses - Mirena IUD. Just spotting Contraception: IUD HPV vaccine: No Last Pap: 07/12/2017 normal HPV: 07/10/2017 negative History of abnormal pap: Yes many yrs ago Last mammogram: 2020normal Sexually active: Yes Patient concerns for STD exposure: No. Pain with intercourse: No Postcoital bleeding: No OB History T0 L3 SAB0 IAB0 Ectopic0 Multiple0 Live Births0 Therapy Technician History LMP: 10/17/2020, IUD Age at Menarche: Age at First : Age at Menopause: Therapy Technician History Comments: Sexual Activity: Yes; Male Contraception: Tubal Ligation PAST MEDICAL HISTORY Diagnosis Date Anxiety generalized anxiety & panic disorder (diagnosed by PCP) Chronic back pain mild scolosis and sciatica & SI joint locks up; was seeing pain management, now sees PCP GERD (gastroesophageal reflux disease) Hemorrhoids Hyperlipidemia 2011 Hypertension Marijuana use Vertigo PAST SURGICAL HISTORY Procedure Laterality Date BREAST REDUCTION 07/2020 CHOLECYSTECTOMY 2010 Cholecystectomy LIG/TRNSXJ FLP TUBE ABDL/VAG APPR UNI/BI Tubal ligation FAMILY HISTORY Problem Relation Age of Onset Hypertension Mother Hyperlipidemia Mother None Father other (Other) Father MVA - heart attack Diabetes Brother Hyperlipidemia Brother Heart Brother Asthma Son Allergies Son Allergies Son Cancer Sister 41 cervical, ?lymph Diabetes Sister Heart Brother CAD-quadruple bypass, age 46 Heart Brother CAD stent placement SOCIAL HISTORY Social History Tobacco Use Smoking status: Never Smoker Smokeless tobacco: Never Used Vaping Use Vaping Use: Never used Substance Use Topics Alcohol use: No Drug use: No Comment: positive drug screen for marijuana - last use 2016 REVIEW OF SYSTEMS Abdomen: No abdominal pain, nausea, vomiting, diarrhea, or constipation. No bloating, early satiety, indigestion, or increased flatulence. Bladder: No dysuria, gross hematuria, urinary frequency, urinary urgency, or incontinence. Breast: No breast lumps, nipple d/c, overlying skin changes, redness or skin retraction. Allergies and current medication updated:Yes EXAM: Ht 5' 2 (1.58m) Wt 171 lb 3.2 oz (77.7kg) LMP 10/17/2020 BMI 31.31 kg/(m^2). GENERAL: pleasant, female in no apparent distress HEENT: Normocephalic, atraumatic, mucus membranes moist and no lesions NECK: Supple, full range of motion, no adenopathy and thyroid normal DERMATOLOGY: Normal, without lesions, non-icteric and non-hirsute BREAST: soft, non-tender, symmetric, no dominant mass, normal nipple-areolar complex, no lymphadenopathy and no nipple discharge CHEST: Normal inspiratory effort ABDOMEN: soft, non-tender and no masses PELVIC: external genitalia normal, normal Bartholin's glands, urethra, [place]'s glands, no vulvar lesions, no cervical lesions, good vaginal support, physiologic discharge present, normal appearing perineal body and perianal region, IUD string visualized BIMANUAL: uterus normal size, shape and consistency, no adnexal masses, non- tender and no cervical motion tenderness RECTOVAGINAL: deferred. NEURO: alert and oriented x3,exam grossly non-focal EXTREMITIES: normal ASSESSMENT/PLAN: 1) Health maintenance: Pap done with HPV. Mammogram ordered. 2) Contraception: IUD and tubal sterilization. Contraceptive options reviewed and information provided. 3) STD screening: Declined STD check. 4) Follow up one year or sooner as needed Nohelia Taylor APRN.RIZWAN documented in this encounterPrem[facility]05-09-2022 Miscellaneous Notes* Telephone Encounter - Kellee Blum MA - 02/06/2022 9:37 AM EDT Patient has been identified by name and date of : Yes Pending Prescriptions Disp Refills ALBUTEROL SULFATE HFA 90 MCG/ACTUATION AEROSOL INHALER 6.7 g 5 Sig: Inhale 2 Puffs as instructed every 6 hours as needed. YIN: No SIMVASTATIN 10 MG TABLET 30 tablet 11 Sig: Take 1 tablet by mouth once daily. YIN: No OMEPRAZOLE MAGNESIUM 20 MG TABLET,DELAYED RELEASE 30 tablet 5 Sig: Take 1 tablet by mouth once daily. YIN: No RX INSTRUCTIONS: Patient requesting a call when RX is approved and sent to the pharmacy. Please call patient at: [phone]. Kellee Blum MA Genaro: 12/2021 Nov: No appointment scheduled Last refill; 08/2021 * Telephone Encounter - Nithya Lopez - 02/06/2022 9:15 AM EDT Patient has been identified by name and date of : Yes Pending Prescriptions Disp Refills ALBUTEROL SULFATE HFA 90 MCG/ACTUATION AEROSOL INHALER 6.7 g 5 Sig: Inhale 2 Puffs as instructed every 6 hours as needed. YIN: No SIMVASTATIN 10 MG TABLET 30 tablet 11 Sig: Take 1 tablet by mouth once daily. YIN: No OMEPRAZOLE MAGNESIUM 20 MG TABLET,DELAYED RELEASE 30 tablet 5 Sig: Take 1 tablet by mouth once daily. YIN: No RX INSTRUCTIONS: Patient requesting a call when RX is approved and sent to the pharmacy. Please call patient at: [phone]. Nithya Lopez documented in this encounterPremier Health [facility]05-04-2022 Miscellaneous Notes* Telephone Encounter - Yessenia Vickers Ma - 02/01/2022 2:27 PM EDT In other TE message has been routed to Schedulers to contact pt to help assist in scheduling an MRI. Closing this encounter. Yessenia Vickers Ma * Telephone Encounter - Guillermo Lizama MD - 02/01/2022 12:34 PM EDT Maikol already sent her an email with her instructions. See below: Hi Indigo, Your US shows a hypoechoic nodule in the liver. Hypoechoic means it is more dense than the surrounding tissue. I will order an MRI to assess. Jaguar Vogel PA-C * Telephone Encounter - Lana Comer RN - 02/01/2022 9:19 AM EDT Pt called in asking if provider could look at her US results. Please call and advise. Pt reports she is at work and will not be off until 100 pm, can call after 1 or leave a voice mail. Lana Comer RN documented in this encounterPremier [facility]05-04-2022 Miscellaneous Notes* Telephone Encounter - Yessenia Vickers Ma - 02/01/2022 11:28 AM EDT Can you please call pt and help her get requested imaging setup. Yessenia Vickers Ma * Telephone Encounter - Jaguar Cook PA-C - 02/01/2022 9:43 AM EDT Please advise scheduled MRI w/wo contrast to evaluate liver nodule on US. Result note sent through [employer]. Telephone on 02/01/22 MRI LIVER WO/W IVCON Maikol Love PA-C documented in this encounterPremier [facility]05-02-2022 History of Present illness Narrative* Karina Villalba RDMS - 01/30/2022 1:45 PM EDT Radiology Service Progress Note PATIENT NAME: Indigo Alves DATE OF SERVICE: January 30, 2022 TIME: 2:12 PM PATIENT IDENTITY VERIFICATION COMPLETED USING TWO (2) IDENTIFIERS: Name and Date of confirmedby patient verbally. FALL SCREENING: Has the patient had 2 falls in the last year or 1 fall with injury or currently using an Ambulatory Assistive Device (Walker, Cane, Wheelchair, Crutches, etc.)? No PATIENT GENDER DATA: Female. status: : No status: N/A PATIENT RELEVANT IMPLANT DATA REVIEWED: Not Applicable RADIOLOGY DEPARTMENT: Ultrasound PERIPHERAL IV DATA: Not applicable SIGNED BY: Karina Villalba RDMS RVT January 30, 2022 2:12 PM documented in this encounterPremier Health [facility]04-29-2022 History of Present illness Narrative* Jaguar Cook PA-C - 01/27/2022 9:40 AM EDT 46 year old female with c/o here for f/u from labs in 01/23/22 visit for urinary frequency, exam + abdominal tenderness. Started on Bactrim DS BID x 3 days Sick on and off since August x 4: vomiting, diarrhea, no fever, no URI sx. Takes prilosec everyday Without Prilosec vomits if eats fried. Last emesis Sunday 4 days ago, after eating pizza. New tattoos both arms 4 months ago 2 sexual partners in last 13 years, ex- and current boyfriend. No fever. ETOH: once every few months Tobacco: none Illicit drug use: marijuana once a day Component Latest Ref Rng & Units 01/23/2022 GLUCOSE UA (POCT) Negative mg/dL Negative BILIRUBIN UA (POCT) Negative Small (A) KETONE UA (POCT) Negative mg/dL Negative SPECIFIC GRAVITY UA (POCT) 1.005 - 1.030 1.020 HEMOGLOBIN/BLOOD UA (POCT) Negative Small (A) PH UA (POCT) 4.5 - 8.0 5.5 PROTEIN UA (POCT) Negative mg/dL Negative UROBILINOGEN UA (POCT) Normal E.U./dL 2.0 (A) NITRITE UA (POCT) Negative Negative LEUKOCYTES UA (POCT) Negative Trace (A) COLOR UA (POCT) Yellow CLARITY UA (POCT) Clear Culture <10,000 CFU/ml Mixed microbiota (A) Reflux, hemorrhoids, constipation with straining. Some rectal bleeding Scheduled hemorrhoidectomy, colonoscopy and EGD Dr. Kulkarni. Cancelled hemorrhoid surgery x 3 09/27/21 distance visit with gastro Alessia Parker CNP Nausea, bloating, some lactose intolerance. Rec EGD and celiac screen: Component Latest Ref Rng & Units 01/23/2022 Transglutaminase Ab, IgA <20 Units 6 Transglutaminase IgA Qualitative Negative, Test not Indicated Negative Interpretation (Celiac Screen) No serological evidence of celiac disease, however, if celiac disease is clinically suspected and patient is not on gluten- free diet, histological diagnosis may be considered. HLA testing may help with risk assessment. Gliadin Ab, IgA <20 Units 8 Gliad Deamidated IgA Qual Negative, Test not Indicated Negative Hep C Antibody IA Negative Negative IgA 70 - 400 mg/dL 205 Endomysial Ab, IgA <1:10, Test Not Indicated <1:10 Lipid: Component Latest Ref Rng & Units 05/07/2019 04/22/2020 Cholesterol, Total <200 mg/dL 187 Triglyceride <150 mg/dL 252 (H) HDL Cholesterol >39 mg/dL 41 LDL Cholesterol <100 mg/dL 96 Non HDL Cholesterol <130 mg/dL 146 (H) Fasting Time hrs 12 VLDL Cholesterol <30 mg/dL 50 (H) TC:HDL Ratio <5.10 4.56 LDL:HDL Ratio <2.54 2.34 Total Cholesterol, Nonfasting <200 mg/dL 197 Triglycerides, Nonfasting <150 mg/dL 327 (H) HDL Cholesterol, Nonfasting >39 mg/dL 42 LDL Cholesterol, Nonfasting <100 mg/dL 90 Non HDL Cholesterol, Nonfasting <130 mg/dL 155 (H) VLDL Cholesterol, Nonfasting <30 mg/dL 65 (H) Total Chol/HDL Ratio, Nonfasting <5.10 mg/dL 4.69 LDL/HDL Ratio, Nonfasting <2.54 mg/dL 2.14 HISTORIES FAMILY HISTORY Problem Relation Age of Onset Hypertension Mother Hyperlipidemia Mother None Father other (Other) Father MVA - heart attack Diabetes Brother Hyperlipidemia Brother Heart Brother Asthma Son Allergies Son Allergies Son Cancer Sister 41 cervical, ?lymph Diabetes Sister Heart Brother CAD-quadruple bypass, age 46 Heart Brother CAD stent placement PAST MEDICAL HISTORY Diagnosis Date Anxiety generalized anxiety & panic disorder (diagnosed by PCP) Chronic back pain mild scolosis and sciatica & SI joint locks up; was seeing pain management, now sees PCP GERD (gastroesophageal reflux disease) Hemorrhoids Hyperlipidemia 2012 Hypertension Marijuana use Vertigo PAST SURGICAL HISTORY Procedure Laterality Date BREAST REDUCTION 07/2020 CHOLECYSTECTOMY 2010 Cholecystectomy LIG/TRNSXJ FLP TUBE ABDL/VAG APPR UNI/BI Tubal ligation Social History Tobacco Use Smoking status: Never Smoker Smokeless tobacco: Never Used Vaping Use Vaping Use: Never used Substance Use Topics Alcohol use: No Drug use: No Comment: positive drug screen for marijuana - last use 2015 ACTIVE PROBLEM LIST Anxiety State Other Acne Pain in Joint, Lower Leg Backache, Unspecified Hyperlipidemia With Target Ldl Less Than 130 Marijuana Use Other Enthesopathy of Ankle and Tarsus Peroneal Tendonitis of Right Lower Extremity Vertigo 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 Hypertension Nonorganic Sleep Disorder Sacroiliac Joint Pain Fibromyalgia Convulsion, Non-Epileptic (Hcc) Neck Pain Upper Back Pain Bilateral Shoulder Pain Other Chest Pain Current Outpatient Medications Medication Sig Dispense Refill ondansetron orally disintegrating (ZOFRAN ODT) 4 mg disintegrating tablet Take 1 tablet by mouth every 6 hours as needed for nausea/vomiting. 10 tablet 1 peg 3350-Electrolytes (GOLYTELY) 236-22.74-6.74 -5.86 gram suspension Refer to printed prep instructions from your provider. 4000 mL 0 simvastatin (ZOCOR) 10 mg tablet Take 1 tablet by mouth once daily. 30 tablet 11 Omeprazole Magnesium (PRILOSEC OTC) 20 mg tablet Take 1 tablet by mouth once daily. 30 tablet 5 albuterol HFA (PROVENTIL HFA, VENTOLIN HFA) 90 mcg/actuation inhaler Inhale 2 Puffs as instructed every 6 hours as needed. 6.7 g 5 metoprolol tartrate, short acting, (LOPRESSOR) 50 mg tablet Take 1 tablet by mouth twice daily. 180tablet 3 levonorgestrel (MIRENA) 20 mcg/24 hours (5 yrs) 52 mg IUD 1 Each by INTRAUTERINE route as directed.1 Each 0 Cholecalciferol, Vitamin D3, 1,000 unit cap Take 1 capsule by mouth once daily. 0 Current Facility-Administered Medications Medication Dose Route Frequency Provider Last Rate Last Admin perflutren lipid microspheres 1.3 mL in NaCl (PF) 0.9% 10 mL injection (DEFINITY) INTRAVENOUS DIRECTED PRN Lyle Mccauley, sodium chloride 0.9 % (flush) 10 mL (BD POSIFLUSH) 10 mL INTRAVENOUS DIRECTED PRN Lyle Mccauley DO COVID-19 VACCINE(1) Never done BP CONTROLLED (<130/80) Never done DTAP,TDAP,TD(1 - Tdap) Never done DEPRESSION SCREENING due on 04/09/2020 PAP TESTING due on 07/06/2022 HPV TESTING due on 07/06/2022 EXAM: BP 126/80 Pulse 80 Resp 16 Wt 77.6 kg (171 lb) LMP 10/17/2020 BMI 30.29 kg/m Pleasant overweight adult woman in no acute distress. Alert and oriented all spheres. Normal affectand cognition. Speech normal. No deficits to learning or comprehension. Skin warm, dry, pink to lips and nailbeds. Normal turgor. Respirations regular and unlabored. HEENT: NCAT. No scleral icterus or conjunctival injection. TM's clear. Nose and oropharynx free from injection or lesion. Oral membranes moist and pink. No cervical lymph nodes. Thyroid non-tender, no masses, or enlargement. Carotids pulses 2+/4+ without bruits. No JVD with HOB at 30 degrees. Chest is normal shape. Lungs are clear to all [place] with good air exchange through out. HRRR without murmur or gallop. No lifts, heaves, or rubs. Abdomen: active bowel sounds throughout, soft, nontender, no masses or organomegaly. No CVAT. Extrem: no clubbing or cyanosis. Edema: none. Extremities are warm and pink with prompt capillary refill. ASSESSMENT/PLAN: 1. Urinary frequency - ICD9: 788.41, ICD10: R35.0 (primary diagnosis) Resolved. UC was negative 2. Essential hypertension - ICD9: 401.9, ICD10: I10 - good control - Continue current medication(s) - Recommended regular aerobic exercise. - Recommend home blood pressure monitoring, to bring results in on next visit - Goal of BP <130/80 3. Hyperlipidemia with target LDL less than 130 - ICD9: 272.4, ICD10: E78.5 - suboptimal control - Encouraged following a low fat, low cholesterol diet. - Discussed the benefits of regular aerobic exercise and weight loss. 4. 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 Fibromyalgia - ICD9: 729.1, ICD10: M79.7 Stable 6. Marijuana use - ICD9: 305.20, ICD10: F12.90 7. Anxiety state - ICD9: 300.00, ICD10: F41.1 stable 8. Elevated liver enzymes - ICD9: 790.5, ICD10: R74.8 - HEP ACUTE PANEL BL - US ABD RT UPPER QUADRANT - ADINA SUAZO PANEL - CMV IGM AB - CMV IGG ANTIBODY BL - HEPATIC FUNCTION PNL - HIV 1 2 COMBO(AG/AB),WITH REFLEX TO DIFFERENTIATION 9. Recurrent vomiting - ICD9: 787.03, ICD10: R11.10 - HIV 1 2 COMBO(AG/AB),WITH REFLEX TO DIFFERENTIATION 10. Diarrhea, unspecified type - ICD9: 787.91, ICD10: R19.7 - HIV 1 2 COMBO(AG/AB),WITH REFLEX TO DIFFERENTIATION Will contact with results and instructions for follow up. Jaguar Cook PA-C documented in this encounterPremier Health [facility]04-26-2022 Miscellaneous Notes* Telephone Encounter - Jasmin Uribe - 01/24/2022 12:11 PM EDT notified pt. 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 * Telephone Encounter - Gillian Graff LPN - 01/24/2022 11:53 AM EDT Pt returned the call & was notified of results & instructions. FU appt was scheduled with pcp 01/27/22. Pt asking if she can get a note to be off work tomorrow? States she is already off today but wants to take an extra day to feel better. Pt states if note is written she will provide a fax # when office calls her back. Gillian Graff LPN * Telephone Encounter - Jasmin Uribe - 01/24/2022 11:38 AM EDT Left message for patient to return call. Jasmin Uribe * Telephone Encounter - Betty Crane APRN.CNP - 01/24/2022 8:26 AM EDT Patient does have elevated liver enzymes, not all labs are back from Maikol's orders, but please schedule follow up this week, early next week with Maikol. Betty Crane APRN.CNP documented in this encounterPremier Health [facility]04-26-2022 Miscellaneous Notes* Telephone Encounter - Mimi Moody RN - 01/24/2022 8:08 AM EDT Patient calling about recent lab results. Informed patient that not all lab results have returned and provider will advise once those results return. Patient verbalized understanding. Mimi Moody RN documented in this encounterPremier Health [facility] Center04-25-2022 Instructions* Patient Instructions* Betty Crane APRN.CNP - 01/23/2022 4:24 PM EDT bactrim for 3 days Tylenol/ibuprofen as needed for discomfort Bloodwork Take medication as directed unless you hear differently from us Increase hydration -Follow up with PCP or return to clinic if symptoms not improving in 3 days or if you develop any new (or worsening) symptoms such as fever, chills or back pain go to ER. documented in this encounterPremier Health [facility] Center04-25-2022 History of Present illness Narrative* Betty Crane APRN.CLERICAL ASSOCIATE - 01/23/2022 4:14 PM EDT Subjective The history is provided by the patient. No language specialist was used. HPI Indigo Alves is a 46 year old female who presents today for CC of frequency for a couple weeks with an increase in the past 24 hours. She denies any fever chills or body aches. She has noted a lower dull back ache the last couple days. She has not used any medications or treatment. BP 124/80 Pulse 78 Temp 36.6 C (97.9 F) Resp 16 Wt 77.1 kg (170 lb) LMP 10/17/2020 RyB702% BMI 30.11 kg/m Social History Tobacco Use Smoking status: Never Smoker Smokeless tobacco: Never Used Vaping Use Vaping Use: Never used Substance Use Topics Alcohol use: No Drug use: No Comment: positive drug screen for marijuana - last use 2016 PAST MEDICAL HISTORY Diagnosis Date Anxiety generalized anxiety & panic disorder (diagnosed by PCP) Chronic back pain mild scolosis and sciatica & SI joint locks up; was seeing pain management, now sees PCP GERD (gastroesophageal reflux disease) Hemorrhoids Hyperlipidemia 2012 Hypertension Marijuana use Vertigo I have confirmed and edited as necessary, the [facility] Review of Systems Constitutional: Negative for chills and fever. HENT: Negative for congestion. Gastrointestinal: Negative for abdominal pain. Genitourinary: Positive for dysuria, flank pain and frequency. Negative for hematuria and urgency. Objective Physical Exam Vitals and nursing note reviewed. Constitutional: Appearance: Normal appearance. Abdominal: General: Bowel sounds are normal. There is no abdominal bruit. Palpations: Abdomen is not rigid. There is no mass or pulsatile mass. Tenderness: There is abdominal tenderness (mild) in the suprapubic area. There is no guarding or rebound. Negative signs include Reynaga's sign and McBurney's sign. Neurological: Mental Status: She is alert and oriented to person, place, and time. Psychiatric: Mood and Affect: Affect normal. ASSESSMENT/PLAN: 1. Urinary frequency - ICD9: 788.41, ICD10: R35.0 (primary diagnosis) acute - UA positive for gayle esterase, hematuria and proteinuria - Send urine for culture - Begin treatment with Bactrim DS BID for 3 days - Patient education for prevention given - UA DIP, URINE (POC) - URINE CULTURE 2. Bilirubin in urine - ICD9: 791.4, ICD10: R82.2 Will check cmp and follow up with PCP based on findings. - COMP METABOLIC PANEL Diagnosis and treatment plan were discussed and questions were answered to the patient's satisfaction. Pt acknowledged understanding of concepts and follow up plan. Specific signs and symptoms that would indicate the need for higher level of care were discussed indetail warranting prompt ER evaluation. Betty Crane APRN.RIZWAN documented in this encounterPremier Health [facility]03-02-2022 Miscellaneous Notes* Telephone Encounter - Ruben Temple - 11/30/2021 5:32 PM EST 02-21-2022 Colon EGD, 02-22-2022 UEA and hemorrhoidectomy Patrick until I hear otherwise. * Telephone Encounter - Mimi Erickson Pss - 11/28/2021 9:58 AM EST Patient returned call to schedule upper and lower procedure please call patient to schedule documented in this encounterPremier Health [facility] Center08-29-2012 History of Past illness Narrative* Problem Noted Date Resolved Date HTN (hypertension) 05/29/2012 04/04/2016 documented as of this encounter (statuses as of 12/23/2021) [facility] History of Past illness Narrative* Problem Noted Date Resolved Date HTN (hypertension) 05/29/2012 04/04/2016 documented as of this encounter (statuses as of 01/23/2022) [facility]08-29-2012 History of Past illness Narrative* Problem Noted Date Resolved Date HTN (hypertension) 05/29/2012 04/04/2016 documented as of this encounter (statuses as of 01/24/2022) [facility]08-29-2012 History of Past illness Narrative* Problem Noted Date Resolved Date HTN (hypertension) 05/29/2012 04/04/2016 documented as of this encounter (statuses as of 01/24/2022) [address]-2012 History of Past illness Narrative* Problem Noted Date Resolved Date HTN (hypertension) 05/29/2012 04/04/2016 documented as of this encounter (statuses as of 01/25/2022) [address]2012 History of Past illness Narrative* Problem Noted Date Resolved Date HTN (hypertension) 05/29/2012 04/04/2016 documented as of this encounter (statuses as of 01/27/2022) [address]2012 History of Past illness Narrative* Problem Noted Date Resolved Date HTN (hypertension) 05/29/2012 04/04/2016 documented as of this encounter (statuses as of 01/31/2022) [address]2012 History of Past illness Narrative* Problem Noted Date Resolved Date HTN (hypertension) 05/29/2012 04/04/2016 documented as of this encounter (statuses as of 02/01/2022) [address]-2012 History of Past illness Narrative* Problem Noted Date Resolved Date HTN (hypertension) 05/29/2012 04/04/2016 documented as of this encounter (statuses as of 02/01/2022) [address]2012 History of Past illness Narrative* Problem Noted Date Resolved Date HTN (hypertension) 05/29/2012 04/04/2016 documented as of this encounter (statuses as of 02/06/2022) [address]29-2012 History of Past illness Narrative* Problem Noted Date Resolved Date HTN (hypertension) 05/29/2012 04/04/2016 documented as of this encounter (statuses as of 02/07/2022) [address]-2012 History of Past illness Narrative* Problem Noted Date Resolved Date HTN (hypertension) 05/29/2012 04/04/2016 documented as of this encounter (statuses as of 02/08/2022) [address]-2012 History of Past illness Narrative* Problem Noted Date Resolved Date HTN (hypertension) 05/29/2012 04/04/2016 documented as of this encounter (statuses as of 02/08/2022) [address]-2012 History of Past illness Narrative* Problem Noted Date Resolved Date HTN (hypertension) 05/29/2012 04/04/2016 documented as of this encounter (statuses as of 02/21/2022) [address]29-2012 History of Past illness Narrative* Problem Noted Date Resolved Date HTN (hypertension) 05/29/2012 04/04/2016 documented as of this encounter (statuses as of 03/01/2022) [address]29-2012 History of Past illness Narrative* Problem Noted Date Resolved Date HTN (hypertension) 05/29/2012 04/04/2016 documented as of this encounter (statuses as of 03/06/2022) [address]2012 History of Past illness Narrative* Problem Noted Date Resolved Date HTN (hypertension) 05/29/2012 04/04/2016 documented as of this encounter (statuses as of 03/08/2022) [address]2012 History of Past illness Narrative* Problem Noted Date Resolved Date HTN (hypertension) 05/29/2012 04/04/2016 documented as of this encounter (statuses as of 03/09/2022) [address]2012 History of Past illness Narrative* Problem Noted Date Resolved Date HTN (hypertension) 05/29/2012 04/04/2016 documented as of this encounter (statuses as of 03/20/2022) [address]2012 History of Past illness Narrative* Problem Noted Date Resolved Date HTN (hypertension) 05/29/2012 04/04/2016 documented as of this encounter (statuses as of 03/23/2022) [address]29[address]2012 History of Past illness Narrative* Problem Noted Date Resolved Date HTN (hypertension) 05/29/2012 04/04/2016 documented as of this encounter (statuses as of 03/24/2022) [address]29[address]2012 History of Past illness Narrative* Problem Noted Date Resolved Date HTN (hypertension) 05/29/2012 04/04/2016 documented as of this encounter (statuses as of 03/28/2022) [address]29-2012 History of Past illness Narrative* Problem Noted Date Resolved Date HTN (hypertension) 05/29/2012 04/04/2016 documented as of this encounter (statuses as of 04/04/2022) [address]29-2012 History of Past illness Narrative* Problem Noted Date Resolved Date HTN (hypertension) 05/29/2012 04/04/2016 documented as of this encounter (statuses as of 04/05/2022) [address]29-2012 History of Past illness Narrative* Problem Noted Date Resolved Date HTN (hypertension) 05/29/2012 04/04/2016 documented as of this encounter (statuses as of 04/08/2022) [address]29-2012 History of Past illness Narrative* Problem Noted Date Resolved Date HTN (hypertension) 05/29/2012 04/04/2016 documented as of this encounter (statuses as of 04/10/2022) [address]29-2012 History of Past illness Narrative* Problem Noted Date Resolved Date HTN (hypertension) 05/29/2012 04/04/2016 documented as of this encounter (statuses as of 04/14/2022) [address]29-2012 History of Past illness Narrative* Problem Noted Date Resolved Date HTN (hypertension) 05/29/2012 04/04/2016 documented as of this encounter (statuses as of 04/24/2022) [address]29-2012 History of Past illness Narrative* Problem Noted Date Resolved Date HTN (hypertension) 05/29/2012 04/04/2016 documented as of this encounter (statuses as of 04/26/2022) [address]29-2012 History of Past illness Narrative* Problem Noted Date Resolved Date HTN (hypertension) 05/29/2012 04/04/2016 documented as of this encounter (statuses as of 05/07/2022) [address]29-2012 History of Past illness Narrative* Problem Noted Date Resolved Date HTN (hypertension) 05/29/2012 04/04/2016 documented as of this encounter (statuses as of 05/09/2022) [address]29[address]2012 History of Past illness Narrative* Problem Noted Date Resolved Date HTN (hypertension) 05/29/2012 04/04/2016 documented as of this encounter (statuses as of 05/09/2022) [address]29[address]2012 History of Past illness Narrative* Problem Noted Date Resolved Date HTN (hypertension) 05/29/2012 04/04/2016 documented as of this encounter (statuses as of 05/09/2022) [address]29[address]2012 History of Past illness Narrative* Problem Noted Date Resolved Date HTN (hypertension) 05/29/2012 04/04/2016 documented as of this encounter (statuses as of 05/11/2022) [address]29[address]2012 History of Past illness Narrative* Problem Noted Date Resolved Date HTN (hypertension) 05/29/2012 04/04/2016 documented as of this encounter (statuses as of 05/11/2022) [address]29-2012 History of Past illness Narrative* Problem Noted Date Resolved Date HTN (hypertension) 05/29/2012 04/04/2016 documented as of this encounter (statuses as of 05/19/2022) [address]29[address]2012 History of Past illness Narrative* Problem Noted Date Resolved Date HTN (hypertension) 05/29/2012 04/04/2016 documented as of this encounter (statuses as of 05/24/2022) [address]29-2012 History of Past illness Narrative* Problem Noted Date Resolved Date HTN (hypertension) 05/29/2012 04/04/2016 documented as of this encounter (statuses as of 05/30/2022) [address]29[address]2012 History of Past illness Narrative* Problem Noted Date Resolved Date HTN (hypertension) 05/29/2012 04/04/2016 documented as of this encounter (statuses as of 05/30/2022) [address]29-2012 History of Past illness Narrative* Problem Noted Date Resolved Date HTN (hypertension) 05/29/2012 04/04/2016 documented as of this encounter (statuses as of 06/06/2022) [address]29-2012 History of Past illness Narrative* Problem Noted Date Resolved Date HTN (hypertension) 05/29/2012 04/04/2016 documented as of this encounter (statuses as of 06/15/2022) [address]29[address]2012 History of Past illness Narrative* Problem Noted Date Resolved Date HTN (hypertension) 05/29/2012 04/04/2016 documented as of this encounter (statuses as of 06/21/2022) [facility] Urinary frequency- Primary Bilirubin in urine Biliuria Abdominal bloating Flatulence, eructation, and gas pain Heartburn Internal hemorrhoid Internal hemorrhoids without mention of complication [facility] Urinary frequency- Primary Essential hypertension Unspecified essential hypertension Hyperlipidemia with target LDL less than 130 Other and unspecified hyperlipidemia Nonorganic sleep disorder Nonorganic sleep disorder, unspecified Fibromyalgia Mylagia and myositis, unspecified Marijuana use Cannabis abuse, unspecified Anxiety state Anxiety state, unspecified Elevated liver enzymes Other nonspecific abnormal serum enzyme levels Recurrent vomiting Vomiting alone Diarrhea, unspecified type Internal hemorrhoid Internal hemorrhoids without mention of complication [facility] Elevated liver enzymes Other nonspecific abnormal serum enzyme levels Internal hemorrhoid Internal hemorrhoids without mention of complication [facility] Diagnosis Liver nodule- Primary Other specified disorders of liver Internal hemorrhoid Internal hemorrhoids without mention of complication [facility] Diagnosis SOB (shortness of breath) Shortness of breath Internal hemorrhoid Internal hemorrhoids without mention of complication [facility] Diagnosis Encounter for gynecological examination (general) (routine) without abnormal findings- Primary Screening for cervical cancer Screening for malignant neoplasm of the cervix Encounter for screening for human papillomavirus (HPV) Special screening examination for human papillomavirus (HPV) Encounter for screening mammogram for breast cancer Pelvic pain in female Unspecified symptom associated with female genital organs Internal hemorrhoid Internal hemorrhoids without mention of complication [facility] Diagnosis Pre-operative examination- Primary Preoperative examination, unspecified Internal hemorrhoid Internal hemorrhoids without mention of complication Anxiety state Anxiety state, unspecified Essential hypertension Unspecified essential hypertension Hyperlipidemia with target LDL less than 130 Other and unspecified hyperlipidemia Palpitations Gastroesophageal reflux disease, unspecified whether esophagitis present Elevated liver enzymes Other nonspecific abnormal serum enzyme levels Internal hemorrhoid Internal hemorrhoids without mention of complication [facility] Diagnosis Abdominal pain, acute, right upper quadrant- Primary Abdominal pain, right upper quadrant Internal hemorrhoid Internal hemorrhoids without mention of complication [facility] Diagnosis Acute pain of right shoulder- Primary Internal hemorrhoid Internal hemorrhoids without mention of complication [facility] Diagnosis Fibromyalgia- Primary Mylagia and myositis, unspecified Elevated liver enzymes Other nonspecific abnormal serum enzyme levels Change in stool Nonspecific abnormal finding in stool contents Diarrhea, unspecified type Fatigue, unspecified type Internal hemorrhoid Internal hemorrhoids without mention of complication [facility] Diagnosis Acute pain of right shoulder- Primary Fibromyalgia Mylagia and myositis, unspecified Elevated liver enzymes Other nonspecific abnormal serum enzyme levels Diarrhea, unspecified type Internal hemorrhoid Internal hemorrhoids without mention of complication [facility] Acute pain of right shoulder- Primary Internal hemorrhoid Internal hemorrhoids without mention of complication [facility] Diagnosis Liver nodule Other specified disorders of liver Internal hemorrhoid Internal hemorrhoids without mention of complication [facility] Diagnosis Essential hypertension Unspecified essential hypertension Internal hemorrhoid Internal hemorrhoids without mention of complication [facility] Diagnosis Acute pain of right shoulder Internal hemorrhoid Internal hemorrhoids without mention of complication [facility] Diagnosis Liver nodule Other specified disorders of liver Internal hemorrhoid Internal hemorrhoids without mention of complication [facility] Diagnosis Pre-op evaluation- Primary Preoperative examination, unspecified Internal hemorrhoid Internal hemorrhoids without mention of complication Essential hypertension Unspecified essential hypertension Hyperlipidemia with target LDL less than 130 Other and unspecified hyperlipidemia Palpitations Gastroesophageal reflux disease without esophagitis Esophageal reflux Liver nodule Other specified disorders of liver Elevated liver enzymes Other nonspecific abnormal serum enzyme levels Convulsions, unspecified convulsion type (HCC) Marijuana use Cannabis abuse, unspecified Fibromyalgia Mylagia and myositis, unspecified Anxiety state Anxiety state, unspecified Internal hemorrhoid Internal hemorrhoids without mention of complication [facility] Diagnosis Vaginal itching- Primary Pruritus of genital organs Vaginal discharge Leukorrhea, not specified as infective IUD check up Surveillance of previously prescribed intrauterine contraceptive device Internal hemorrhoid Internal hemorrhoids without mention of complication [facility] Diagnosis Constipation, unspecified constipation type Grade III hemorrhoids Unspecified hemorrhoids with other complication Heartburn [facility] Diagnosis Urinary frequency- Primary Burning with urination Dysuria [facility] Diagnosis Urinary frequency- Primary [facility] Diagnosis Grade III hemorrhoids- Primary Unspecified hemorrhoids with other complication Heartburn Constipation, unspecified constipation type [facility] Diagnosis Acute vaginitis- Primary Vaginitis and vulvovaginitis, unspecified Sensation of pressure in bladder area Other specified disorders of bladder Pelvic pain in female Unspecified symptom associated with female genital organs [facility] Diagnosis Skin lesion- Primary Unspecified disorder of skin and subcutaneous tissue Grade III hemorrhoids Unspecified hemorrhoids with other complication [facility] Diagnosis Pain of sternum Chest pain, unspecified Clavicle pain Disorder of bone and cartilage, unspecified [facility] Diagnosis SOB (shortness of breath) Shortness of breath [facility] Diagnosis NO SHOW- Primary [facility] Diagnosis Vaginal discharge- Primary Leukorrhea, not specified as infective Diffuse cystic mastopathy of left breast Diffuse cystic mastopathy Pelvic pain in female Unspecified symptom associated with female genital organs [facility] Diagnosis Chronic right shoulder pain- Primary Pain in joint, shoulder region Chronic pain of right knee [facility] Diagnosis Nodule on liver Other specified disorders of liver [facility] Diagnosis Patellofemoral arthralgia of right knee- Primary Unspecified disorder of lower leg joint [facility] Diagnosis Grade III hemorrhoids- Primary Unspecified hemorrhoids with other complication [facility] Diagnosis Right hand pain- Primary Pain in limb Right wrist pain Pain in joint, forearm [facility] Diagnosis Flu-like symptoms- Primary Other general symptoms Wheezing [facility] Diagnosis Neck pain- Primary Cervicalgia Chronic midline low back pain without sciatica Chronic neck pain Cervicalgia Lateral epicondylitis, right elbow [facility] Diagnosis Chronic midline low back pain without sciatica- Primary Chronic neck pain Cervicalgia Lateral epicondylitis, right elbow [facility] Diagnosis Primary osteoarthritis of first carpometacarpal joint of right hand- Primary Primary localized osteoarthrosis, hand [facility]* Diagnosis Neck pain- Primary Cervicalgia Chronic midline low back pain without sciatica Lateral epicondylitis, right elbow [facility] Diagnosis Hyperglycemia- Primary Other abnormal glucose documented in this encounter [facility] note* Diagnosis Bacterial pneumonia- Primary Bacterial pneumonia, unspecified documented in this encounter [facility] note* Diagnosis Bacterial pneumonia- Primary Bacterial pneumonia, unspecified documented in this encounter [facility] note* Diagnosis Pneumonia of right lower lobe due to infectious organism- Primary Anxiety state Anxiety state, unspecified Perimenopausal Symptomatic menopausal or female climacteric states documented in this encounter [facility] note* Diagnosis Neck pain- Primary Cervicalgia Chronic midline low back pain without sciatica Lateral epicondylitis, right elbow documented in this encounter [facility] note* Diagnosis Neck pain- Primary Cervicalgia Chronic midline low back pain without sciatica Lateral epicondylitis, right elbow documented in this encounter [facility] note* Diagnosis Neck pain- Primary Cervicalgia Chronic midline low back pain without sciatica Lateral epicondylitis, right elbow documented in this encounter [facility] note* Diagnosis Right leg pain- Primary Pain in limb Radiculopathy, lumbar region Thoracic or lumbosacral neuritis or radiculitis, unspecified documented in this encounter [facility] note* Diagnosis Radiculopathy, lumbar region- Primary Thoracic or lumbosacral neuritis or radiculitis, unspecified documented in this encounter [facility] note* Diagnosis Skin tag- Primary Unspecified hypertrophic and atrophic condition of skin documented in this encounter [facility] note* Diagnosis Hymenal remnant- Primary Other specified noninflammatory disorder of vagina documented in this encounter [facility] note* Diagnosis Vaginal discharge- Primary Leukorrhea, not specified as infective Vaginal odor Unspecified symptom associated with female genital organs Hymenal remnant Other specified noninflammatory disorder of vagina documented in this encounter [facility] note* Diagnosis Sore throat- Primary Acute pharyngitis documented in this encounter [facility] note* Diagnosis OPENED IN ERROR- Primary To allow closing an encounter opened in error (used in SmartSet) documented in this encounter [facility] note* Diagnosis Screen for STD (sexually transmitted disease)- Primary Screening examination for venereal disease Vaginal discharge Leukorrhea, not specified as infective documented in this encounter [facility] note* Diagnosis Sore throat- Primary Acute pharyngitis Hypertension, essential Unspecified essential hypertension URI, acute Acute upper respiratory infections of unspecified site [facility] Diagnosis Low back pain, unspecified back pain laterality, unspecified chronicity, unspecified whether sciatica present- Primary Acute pain of left shoulder Symptoms of upper respiratory infection (URI) documented in this encounter [facility] note* Diagnosis Headache, unspecified headache type- Primary Lumbar pain Lumbago Neck pain Cervicalgia Acute pain of left shoulder Concussion without loss of consciousness, subsequent encounter documented in this encounter [facility] note* Diagnosis Acute cough- Primary Sinobronchitis Unspecified sinusitis (chronic) documented in this encounter [facility] note* Diagnosis Vulvar cyst- Primary Other specified noninflammatory disorder of vulva and perineum Stress incontinence Female stress incontinence Urge incontinence Pelvic pain in female Unspecified symptom associated with female genital organs documented in this encounter [facility] note* Diagnosis Neck pain- Primary Cervicalgia Low back pain, unspecified back pain laterality, unspecified chronicity, unspecified whether sciatica present documented in this encounter [facility] note* Diagnosis Mild intermittent asthma with acute exacerbation- Primary Unspecified asthma, with exacerbation documented in this encounter [facility] note* Diagnosis Essential hypertension Unspecified essential hypertension [facility]* Diagnosis Vulvar itching- Primary Pruritus of genital organs [facility]* Diagnosis Low back pain, unspecified back pain laterality, unspecified chronicity, unspecified whether sciatica present- Primary [facility]* Diagnosis Essential hypertension- Primary Unspecified essential hypertension documented in this encounter [facility] note* Diagnosis Essential hypertension Unspecified essential hypertension documented in this encounter [facility] note* Diagnosis Acute pain of left shoulder- Primary Urinary frequency Vaginal odor Unspecified symptom associated with female genital organs Screening for STD (sexually transmitted disease) Screening examination for venereal disease [facility] Diagnosis Vomiting and diarrhea- Primary Vomiting alone Strain of left shoulder, initial encounter [facility]* Diagnosis Urinary frequency- Primary Microscopic hematuria Chronic left shoulder pain Pain in joint, shoulder region [facility]* Diagnosis Headache, unspecified headache type Concussion without loss of consciousness, subsequent encounter documented in this encounter [facility] note* Diagnosis Encounter for screening mammogram for breast cancer documented in this encounter [facility] note* Diagnosis Abnormal mammogram Abnormal mammogram, unspecified documented in this encounter [facility] note* Diagnosis SOB (shortness of breath) Shortness of breath documented in this encounter [facility] note* Diagnosis BV (bacterial vaginosis)- Primary Vaginitis and vulvovaginitis, unspecified documented in this encounter [facility] note* Diagnosis Chronic left shoulder pain Pain in joint, shoulder region documented in this encounter [facility] for referral (narrative)* Diagnostic Procedure Only (Routine) - Authorized Specialty Diagnoses / Procedures Referred By Contac t Referred To Contact US IMAGING Diagnoses Elevated liver enzymes Procedures US ABD RT UPPER QUADRANT US ABDOMINAL REAL TIME W/IMAGE LIMITED Jaguar Cook PA-C [address] [place] [address] Us Imaging Referral ID Status Reason Start Date Expiration Date Visits Requested Visits Authorized [id number] Authorized Auto-Generat ed Referral 01/27/2022 02/26/2023 1 1 [facility] for referral (narrative)* Diagnostic Procedure Only (Routine) - Closed Specialty Diagnoses / Procedures Referred By Contac t Referred To Contact US IMAGING Diagnoses Elevated liver enzymes Procedures US ABD RT UPPER QUADRANT US ABDOMINAL REAL TIME W/IMAGE LIMITED Jaguar Cook PA-C [address] [place] [address] Us Imaging Referral ID Status Reason Start Date Expiration Date V isits Requested Visits Authorized [id number] Closed Auto-Generate d Referral 01/27/2022 02/26/2023 1 1 [facility] for referral (narrative)* Diagnostic Procedure Only (Routine) - Pending Review Specialty Diagnoses / Procedures Referred By Contac t Referred To Contact US IMAGING Diagnoses Pelvic pain in female Procedures US FEMALE PELVIS TRANSVAG US TRANSVAGINAL Nohelia Taylor APRN.CLERICAL ASSOCIATE [address] [place] [address] Us Imaging Referral ID Status Reason Start Date Expiration Date Visits Requested Visits Authorized [id number] Pending Review Auto-Generat ed Referral 02/07/2022 03/09/2023 1 1 * Diagnostic Procedure Only (Routine) - Pending Review Specialty Diagnoses / Procedures Referred By Karen rodriguez Referred To Contact BR IMAGING Diagnoses Encounter for screening mammogram for breast cancer Procedures RONDA SCREENING W CHRIS SCREENING DIGITAL BREAST TOMOSYNTHESIS BI SCREENING MAMMOGRAPHY BI 2-VIEW BREAST INC Nohelia Schneider APRN.CLERICAL ASSOCIATE [address] [place] [address] [facility] [address] [place] [address] Referral ID Status Reason Start Date Expiration Date Visits Requested Visits Authorized [id number] Pending Review Auto-Generat ed Referral 02/07/2022 03/09/2023 1 1 [facility] for referral (narrative)* Outpatient Procedure (Routine) - Closed Specialty Diagnoses / Procedures Referred By Karen rodriguez Referred To Contact [facility] Diagnoses Constipation, unspecified constipation type Grade III hemorrhoids Heartburn Procedures EGD DIAGNOSTIC EGD W/O OR W/BRUSH/WASH Nohemi Kulkarni MD [address] [place] [address] [facility] [address] [place] [address] Referral ID Status Reason Start Date Expiration Date V isits Requested Visits Authorized [id number] Closed Auto-Generate d Referral 10/18/2021 10/18/2022 1 1 * Outpatient Procedure (Routine) - Closed Specialty Diagnoses / Procedures Referred By Karen rodriguez Referred To Contact [facility] Diagnoses Constipation, unspecified constipation type Grade III hemorrhoids Procedures COLONOSCOPY DIAGNOSTIC COLONOSCOP W/ OR W/O [facility] SPEC Nohemi Kulkarni MD [address] [address] [facility] [address] [place] [address] Referral ID Status Reason Start Date Expiration Date V isits Requested Visits Authorized [id number] Closed Auto-Generate d Referral 10/18/2021 10/18/2022 1 1 [facility] for referral (narrative)* Diagnostic Procedure Only (Routine) - Pending Review Specialty Diagnoses / Procedures Referred By Karen rodriguez Referred To Contact BR IMAGING Diagnoses Diffuse cystic mastopathy of left breast Procedures US BREAST LTD LT US BREAST UNI REAL TIME WITH IMAGE LIMITED Karina Gold APRN.CN [address] [place] [address] [facility] Imaging [address] [place] [address] Referral ID Status Reason Start Date Expiration Date Visits Requested Visits Authorized [id number] Pending Review Auto-Generat ed Referral 08/09/2022 09/08/2023 1 1 * Diagnostic Procedure Only (Routine) - Pending Review Specialty Diagnoses / Procedures Referred By Karen rodriguez Referred To Contact BR IMAGING Diagnoses Diffuse cystic mastopathy of left breast Procedures RONDA DIAGNOSTIC BILAT DIAGNOSTIC MAMMOGRAPHY COMPUTER-AIDED DETCJ BI Karina Gold APRN.CNM [address] [place] [address] Br Imaging [address] [place] [phone] Referral ID Status Reason Start Date Expiration Date Visits Requested Visits Authorized [id number] Pending Review Auto-Generat ed Referral 08/09/2022 09/08/2023 1 1 * Diagnostic Procedure Only (Routine) - Pending Review Specialty Diagnoses / Procedures Referred By Contac t Referred To Contact US IMAGING Diagnoses Diffuse cystic mastopathy of left breast Procedures US FEMALE PELVIS TRANSVAG US TRANSVAGINAL Karina Gold APRN.CNM [address] [place] [address] Us Imaging Referral ID Status Reason Start Date Expiration Date Visits Requested Visits Authorized [id number] Pending Review Auto-Generat ed Referral 08/09/2022 09/08/2023 1 1 [facility] Outpatient Procedure (Routine) - Pending Review Specialty Diagnoses / Procedures Referred By Contac t Referred To Contact [facility] Diagnoses Chronic pain of right knee Procedures US LEG VEIN DVT UNL VAS LAB DUP-SCAN XTR VEINS UNILATERAL/LIMITED STUDY Jennifer Whitfield APRN.CLERICAL ASSOCIATE [address] [place] [address] [facility] [address] [address] Referral ID Status Reason Start Date Expiration Date Visits Requested Visits Authorized [id number] Pending Review Auto-Generat ed Referral 08/09/2022 08/09/2023 1 1 * Physical Therapy (Routine) - Pending Review Specialty Diagnoses / Procedures Referred By Contac t Referred To Contact [facility] Diagnoses Chronic right shoulder pain Procedures CONSULT TO PHYSICAL THERAPY PHYSICAL THERAPY EVALUATION HIGH COMPLEX 45 MINS Jennifer Whitfield APRN.CLERICAL ASSOCIATE [address] [place] [address] [facility] [place] [address] [place] [address] Referral ID Status Reason Start Date Expiration Date Visits Requested Visits Authorized [id number] Pending Review Auto-Generat ed Referral 08/09/2022 08/09/2023 1 1 * Diagnostic Procedure Only (Routine) - Pending Review Specialty Diagnoses / Procedures Referred By Contac t Referred To Contact XR IMAGING Diagnoses Chronic pain of right knee Procedures XR KNEE GENERAL 4V AP BOTH/PA BOTH/LAT/MERC RIGHT RADIOLOGIC EXAM KNEE COMPLETE 4/MORE VIEWS Jennifer Whitfield APRN.CLERICAL ASSOCIATE [address] [place] [address] Xr Imaging Referral ID Status Reason Start Date Expiration Date Visits Requested Visits Authorized [id number] Pending Review Auto-Generat ed Referral 08/09/2022 09/08/2023 1 1 [facility] for referral (narrative)* Diagnostic Procedure Only (Routine) - Closed Specialty Diagnoses / Procedures Referred By Contac t Referred To Contact XR IMAGING Diagnoses Primary osteoarthritis of first carpometacarpal joint of right hand Procedures XR HAND GENERAL 3V PA/LAT/OBL RIGHT RADEX HAND MINIMUM 3 VIEWS Jonah Ibrahim MD [address] [place] [address] Xr Imaging Referral ID Status Reason Start Date Expiration Date V isits Requested Visits Authorized [id number] Closed Auto-Generate d Referral 10/09/2022 2023 1 1 [facility] for referral (narrative)* Diagnostic Procedure Only (Urgent) - Closed Specialty Diagnoses / Procedures Referred By Contac t Referred To Contact XR IMAGING Diagnoses Acute pain of left shoulder Procedures XR SHOULDER GENERAL 3V OR MORE AP/TRUE AP/OTHER LEFT RADEX SHOULDER COMPLETE MINIMUM 2 VIEWS Moriah Hutchison APRN.CLERICAL ASSOCIATE [address] [place] [address] [place] [address] Referral ID Status Reason Start Date Expiration Date V isits Requested Visits Authorized [id number] Closed Auto-Generate d Referral 07/11/2023 08/09/2024 1 1 [facility] for referral (narrative)* Diagnostic Procedure Only (Routine) - Closed Specialty Diagnoses / Procedures Referred By Karen rodriguez Referred To Contact BR IMAGING Diagnoses Encounter for screening mammogram for breast cancer Procedures RONDA SCREENING W CHRIS SCREENING DIGITAL BREAST TOMOSYNTHESIS BI SCREENING MAMMOGRAPHY BI 2-VIEW BREAST INC CAD Nohelia Taylor APRN.CNP [address] [place] [address] [facility] [address] [place] [address] Referral ID Status Reason Start Date Expiration Date V isits Requested Visits Authorized [id number] Closed Auto-Generate d Referral 02/07/2022 03/09/2023 1 1 [facility] for referral (narrative)* Diagnostic Procedure Only (Routine) - Closed Specialty Diagnoses / Procedures Referred By Karen rodriguez Referred To Contact [facility] IMAG[facility] Diagnoses Abnormal mammogram Procedures US BREAST LTD LT US BREAST UNI REAL TIME WITH IMAGE LIMITED Nohelia Taylor APRN.CLERICAL ASSOCIATE [address] [place] [address] [facility] Imaging [address] [place] [address] Referral ID Status Reason Start Date Expiration Date V isits Requested Visits Authorized [id number] Closed Auto-Generate d Referral 12/11/2022 01/10/2024 1 1 * Diagnostic Procedure Only (Routine) - Closed Specialty Diagnoses / Procedures Referred By Karen rodriguez Referred To Contact BR IMAG[facility] Diagnoses Abnormal mammogram Procedures US BREAST LTD RT US BREAST UNI REAL TIME WITH IMAGE LIMITED Nohelia Taylor APRN.CLERICAL ASSOCIATE [address] [place] [address] [facility] [address] [place] [address] Referral ID Status Reason Start Date Expiration Date V isits Requested Visits Authorized [id number] Closed Auto-Generate d Referral 12/11/2022 01/10/2024 1 1 [facility] for visit Narrative* Outpatient Procedure (Routine) - Closed Specialty Diagnoses / Procedures Referred By Karen rodriguez Referred To Contact [facility] Diagnoses Constipation, unspecified constipation type Grade III hemorrhoids Heartburn Procedures EGD DIAGNOSTIC EGD W/O OR W/BRUSH/WASH Nohemi Kulkarni MD [address] [place] [address] [facility] [address] [place] [address] Referral ID Status Reason Start Date Expiration Date V isits Requested Visits Authorized [id number] Closed Auto-Generate d Referral 10/18/2021 10/18/2022 1 1 [facility] for visit Narrative* Diagnostic Procedure Only (Routine) - Closed Specialty Diagnoses / Procedures Referred By Karen rodriguez Referred To Contact BR IMAGING Diagnoses Encounter for screening mammogram for breast cancer Procedures RONDA SCREENING W CHRIS SCREENING DIGITAL BREAST TOMOSYNTHESIS BI SCREENING MAMMOGRAPHY BI 2-VIEW BREAST INC Nohelia Schneider APRN.RIZWAN [address] [place] [address] [facility] [address] [place] [address] Referral ID Status Reason Start Date Expiration Date V isits Requested Visits Authorized [id number] Closed Auto-Generate d Referral 02/07/2022 03/09/2023 1 1 [facility] Summary Purpose Family History No Family History Records FoundNo Family History Records FoundNo Family History Records FoundNo Family History Records FoundNo Family History Records Found Advance Directives No Advanced Directives Records FoundDocuments on File Type Date Recorded Patient Machine Filler Expl anation Advance Directive(s) 11/09/2020 11:18 AM Advance Directive(s) 06/28/2020 12:46 PM Advance Directive(s) 11/22/2017 8:54 AM Documents on File Type Date Recorded Patient Machine Filler Expl anation Advance Directive(s) 01/26/2022 1:39 PM Advance Directive(s) 11/09/2020 11:18 AM Advance Directive(s) 06/28/2020 12:46 PM Advance Directive(s) 11/22/2017 8:54 AM Documents on File Type Date Recorded Patient Machine Filler Expl anation Advance Directive(s) 01/26/2022 1:39 PM Advance Directive(s) 11/09/2020 11:18 AM Advance Directive(s) 06/28/2020 12:46 PM Advance Directive(s) 11/22/2017 8:54 AM Documents on File Type Date Recorded Patient Machine Filler Expl anation Advance Directive(s) 04/13/2022 9:39 AM Advance Directive(s) 01/26/2022 1:39 PM Advance Directive(s) 11/09/2020 11:18 AM Advance Directive(s) 06/28/2020 12:46 PM Advance Directive(s) 11/22/2017 8:54 AM Documents on File Type Date Recorded Patient Machine Filler Expl anation Advance Directive(s) 04/13/2022 9:39 AM Advance Directive(s) 01/26/2022 1:39 PM Advance Directive(s) 11/09/2020 11:18 AM Advance Directive(s) 06/28/2020 12:46 PM Advance Directive(s) 11/22/2017 8:54 AM Reason for Referral Specialty Diagnoses / Procedures Referred By Karen rodriguez Referred To Contact MR IMAGING Diagnoses Liver nodule Procedures MRI LIVER WO/W IVCON MRI ABDOMEN W/O & W/CONTRAST MATERIAL Jaguar Cook PA-C [address] [place] [address] Mr Imaging Referral ID Status Reason Start Date Expiration Date Visits Requested Visits Authorized [id number] Pending Review Auto-Generat ed Referral 02/01/2022 03/03/2023 1 1 Specialty Diagnoses / Procedures Referred By Karen rodriguez Referred To Contact Diagnoses SOB (shortness of breath) Jaguar Cook PA-C [address] [place] [address] Referral ID Status Reason Start Date Expiration Date Visits Re quested Visits Authorized [id number] Closed 1 1 Specialty Diagnoses / Procedures Referred By Karen rodriguez Referred To Contact Orthopedics Diagnoses Acute pain of right shoulder Procedures CONSULT TO ORTHOPAEDICS OFFICE/OUTPATIENT NEW HIGH MDM 60-74 MINUTES Shawn Uribe MD [address] [place] [address] Referral ID Status Reason Start Date Expiration Date Visits Requested Visits Authorized [id number] Authorized PCP Requested Referral 03/06/2022 03/06/2023 1 1 Specialty Diagnoses / Procedures Referred By Karen t Referred To Contact [facility] Diagnoses Acute pain of right shoulder Procedures CONSULT TO PHYSICAL THERAPY PHYSICAL THERAPY EVALUATION HIGH COMPLEX 45 MINS Jaguar Cook PA-C [address] [place] [address] [facility] [address] [address] Referral ID Status Reason Start Date Expiration Date Visits Requested Visits Authorized [id number] Pending Review Auto-Generat ed Referral 03/23/2022 03/23/2023 1 1 Specialty Diagnoses / Procedures Referred By Brianajuanita michael Referred To Contact MR IMAGING Diagnoses Liver nodule K76.89 (ICD-10-CM) - Liver nodule Procedures MRI LIVER WO/W IVCON MRI ABDOMEN W/O & W/CONTRAST MATERIAL MRI LIVER WO/W IVCON Jaguar Cook PA-C [address] [place] [address] Mr Imaging Referral ID Status Reason Start Date Expiration Date V isits Requested Visits Authorized [id number] Closed Auto-Generate d Referral 03/01/2022 04/30/2022 1 1 Specialty Diagnoses / Procedures Referred By Karen t Referred To Contact [facility] Diagnoses Acute pain of right shoulder Procedures PT REHAB FOLLOW UP ORDER THERAPEUTIC EXERCISES RE, EA 15 MIN. Pt [facility] [address] [place] [address] [facility] [address] [address] Referral ID Status Reason Start Date Expiration Date Visits Requested Visits Authorized [id number] Pending Review PCP Requested Referral Auto-Generate d Referral 04/05/2022 07/04/2022 1 1 Referral ID Status Reason Start Date Expiration Date Visits Requested Visits Authorized [id number] Pending Review Auto-Generat ed Referral 03/27/2022 04/26/2023 1 1 Referral ID Status Reason Start Date Expiration Date Visits Re quested Visits Authorized [id number] Closed 1 1 Specialty Diagnoses / Procedures Referred By Contac t Referred To Contact [facility] Diagnoses Patellofemoral arthralgia of right knee Procedures CONSULT TO PHYSICAL THERAPY PHYSICAL THERAPY EVALUATION HIGH COMPLEX 45 MINS Jaguar Cook PA-C [address] [place] [address] [facility] [place] [address] [place] [address] Referral ID Status Reason Start Date Expiration Date Visits Requested Visits Authorized [id number] Pending Review Auto-Generat ed Referral 2 08/15/2023 1 1 Specialty Diagnoses / Procedures Referred By Contac t Referred To Contact Orthopedics Diagnoses Right hand pain Right wrist pain Procedures CONSULT TO ORTHOPAEDICS OFFICE/OUTPATIENT [facility] 60-74 MINUTES Johnna Martinez PA-C [address] [place] [address] Referral ID Status Reason Start Date Expiration Date Visits Requested Visits Authorized [id number] Authorized PCP Requested Referral 2 09/14/2023 1 1 Specialty Diagnoses / Procedures Referred By Contac t Referred To Contact [facility] Diagnoses Chronic midline low back pain without sciatica Chronic neck pain Lateral epicondylitis, right elbow Neck pain Procedures PT REHAB FOLLOW UP ORDER THERAPEUTIC EXERCISES RE, EA 15 MIN. Pt [facility] [address] [place] [address] [facility] [address] [address] Referral ID Status Reason Start Date Expiration Date Visits Requested Visits Authorized [id number] Pending Review PCP Requested Referral Auto-Generate d Referral 10/17/2022 01/15/2023 1 1 Specialty Diagnoses / Procedures Referred By Contac t Referred To Contact [facility] Diagnoses Chronic midline low back pain without sciatica Chronic neck pain Lateral epicondylitis, right elbow Procedures CONSULT TO PHYSICAL THERAPY PHYSICAL THERAPY EVALUATION HIGH COMPLEX 45 MINS Jaguar Cook PA-C [address] [place] [address] [facility] [address] [place] [address] Referral ID Status Reason Start Date Expiration Date Visits Requested Visits Authorized [id number] Authorized Auto-Generat ed Referral 09/05/2022 09/05/2023 1 1 Specialty Diagnoses / Procedures Referred By Contac t Referred To Contact Diagnoses Anxiety state Perimenopausal Jaguar Cook PA-C [address] [place] [address] Referral ID Status Reason Start Date Expiration Date Visits Re quested Visits Authorized [id number] Closed 1 1 Specialty Diagnoses / Procedures Referred By Contact Referred To Contact [facility] Diagnoses Radiculopathy, lumbar region Procedures CONSULT TO PAIN MGT OFFICE/OUTPATIENT [facility] MDM 60-74 MINUTES Agnieszka Villagomez PA-C [address] [place] [address] Lona Stewart, [employer].CLERICAL ASSOCIATE [address] [place] [address] Referral ID Status Reason Start Date Expiration Date V isits Requested Visits Authorized [id number] Closed PCP Requested Referral 12/01/2022 12/01/2023 1 1 Specialty Diagnoses / Procedures Referred By Contac t Referred To Contact [facility] Diagnoses Low back pain, unspecified back pain laterality, unspecified chronicity, unspecified whether sciatica present Acute pain of left shoulder Procedures CONSULT TO PHYSICAL THERAPY PHYSICAL THERAPY EVALUATION HIGH COMPLEX 45 MINS Jennifer Whitfield, [employer].CLERICAL ASSOCIATE [address] [place] [address] [facility] [address] [place] [address] Referral ID Status Reason Start Date Expiration Date Visits Requested Visits Authorized [id number] Pending Review Auto-Generat ed Referral 03/05/2023 03/04/2024 1 1 Specialty Diagnoses / Procedures Referred By Contac t Referred To Contact Neurology Diagnoses Headache, unspecified headache type Concussion without loss of consciousness, subsequent encounter Procedures CONSULT TO NEUROLOGY OFFICE/OUTPATIENT [facility] MDM 60-74 MINUTES Guillermo Lizama MD [address] [place] [address] Referral ID Status Reason Start Date Expiration Date Visits Requested Visits Authorized [id number] Authorized PCP Requested Referral 03/12/2023 03/11/2024 1 1 Specialty Diagnoses / Procedures Referred By Contac t Referred To Contact MR IMAGING Diagnoses Headache, unspecified headache type Concussion without loss of consciousness, subsequent encounter Procedures MRI BRAIN WO IVCON MRI BRAIN BRAIN STEM W/O CONTRAST MATERIAL Guillermo Lizama MD [address] [place] [address] Mr Imaging Referral ID Status Reason Start Date Expiration Date Visits Requested Visits Authorized [id number] Pending Review Auto-Generat ed Referral 03/12/2023 04/10/2024 1 1 Specialty Diagnoses / Procedures Referred By Contac t Referred To Contact [facility] Diagnoses Neck pain Procedures CONSULT TO PHYSICAL THERAPY PHYSICAL THERAPY EVALUATION HIGH COMPLEX 45 MINS Guillermo Lizama MD [address] [place] [address] [facility] [place] [address] [place] [address] Referral ID Status Reason Start Date Expiration Date Visits Requested Visits Authorized [id number] Pending Review Auto-Generat ed Referral 03/12/2023 03/11/2024 1 1 Specialty Diagnoses / Procedures Referred By Contac t Referred To Contact XR IMAGING Diagnoses Lumbar pain Procedures XR LUMBAR GENERAL 3V AP/LAT/L5-S1 RADEX SPINE LUMBOSACRAL 2/3 VIEWS Guillermo Lizama MD [address] [place] [address] Xr Imaging Referral ID Status Reason Start Date Expiration Date Visits Requested Visits Authorized [id number] Authorized Auto-Generat ed Referral 03/12/2023 04/10/2024 1 1 Specialty Diagnoses / Procedures Referred By Contac t Referred To Contact [facility] Diagnoses Stress incontinence Urge incontinence Procedures CONSULT TO PHYSICAL THERAPY PHYSICAL THERAPY EVALUATION HIGH COMPLEX 45 MINS Nohelia Taylor, [employer].CLERICAL ASSOCIATE [address] [place] [address] [facility] [address] [place] [address] Referral ID Status Reason Start Date Expiration Date Visits Requested Visits Authorized [id number] Pending Review Auto-Generat ed Referral 03/20/2023 03/19/2024 1 1 Specialty Diagnoses / Procedures Referred By Contac t Referred To Contact XR IMAGING Diagnoses Pelvic pain in female Procedures XR PELVIS 2V INLET/OUTLET RADIOLOGIC EXAMINATION PELVIS 1/2 VIEWS Nohelia Taylor, ROSARIO.CLERICAL ASSOCIATE [address] [place] [address] Xr Imaging Referral ID Status Reason Start Date Expiration Date V isits Requested Visits Authorized [id number] Closed Auto-Generate d Referral 03/20/2023 04/18/2024 1 1 Specialty Diagnoses / Procedures Referred By Contac t Referred To Contact [facility] Diagnoses Low back pain, unspecified back pain laterality, unspecified chronicity, unspecified whether sciatica present Neck pain Procedures PT REHAB FOLLOW UP ORDER THERAPEUTIC EXERCISES RE, EA 15 MIN. Karina Rankin, PT [facility] [address] [place] [address] Referral ID Status Reason Start Date Expiration Date Visits Requested Visits Authorized [id number] Pending Review PCP Requested Referral Auto-Generate d Referral 03/20/2023 06/18/2023 1 1 Specialty Diagnoses / Procedures Referred By Contac t Referred To Contact Orthopedics Diagnoses Chronic left shoulder pain Procedures CONSULT TO ORTHOPAEDICS OFFICE/OUTPATIENT [facility] 60-74 MINUTES Yeison Ignacio, CONSUELO [address] [place] [address] Referral ID Status Reason Start Date Expiration Date Visits Requested Visits Authorized [id number] Authorized PCP Requested Referral 07/25/2024 1 1 Specialty Diagnoses / Procedures Referred By Contac t Referred To Contact MR IMAGING Diagnoses Headache, unspecified headache type Concussion without loss of consciousness, subsequent encounter Procedures MRI BRAIN WO IVCON MRI BRAIN BRAIN STEM W/O CONTRAST MATERIAL Guillermo Lizama MD [address] [place] [address] Mr Imaging [facility] Referral ID Status Reason Start Date Expiration Date V isits Requested Visits Authorized [id number] Closed Auto-Generate d Referral 04/04/2023 06/03/2023 1 1 Medications Administered Section Inactive Administered Medications - up to 3 most recent administrations Medication Order MAR Action Action Date Dose Rate Site benzocaine 20% 1 Farnam (TOPEX) 1 Farnam, TOPICAL, DIRECTED, Starting on Sun04/25/22 at 1000, Until Sun04/25/22 at 1359, DOSING DIRECTED BY PHYSICIAN FOR PROCEDURAL SEDATION ONLY - Pharmaceutical Waste: Aerosol -, Intraprocedure Given 04/25/2022 9:28 AM EDT 5 Sprays diphenhydrAMINE 12.5-50 mg injection (BENADRYL) 12.5-50 mg, INTRAVENOUS, DIRECTED, Starting on Sun04/25/22 at 1000, Until Sun04/25/22 at 1359, DOSING DIRECTED BY PHYSICIAN FOR PROCEDURAL SEDATION ONLY, Intraprocedure Given 04/25/2022 9:33 AM EDT 50 mg fentaNYL 50 mcg/mL 25-100 mcg injection (SUBLIMAZE) 25-100 mcg, INTRAVENOUS, DIRECTED, Starting on Sun04/25/22 at 1000, Until Sun04/25/22 at 1359, DOSING DIRECTED BY PHYSICIAN FOR PROCEDURAL SEDATION ONLY, Intraprocedure Given 04/25/2022 9:36 AM EDT 25 mcg Health Concerns Infection Onset Date Last Indicated Resolved Time COVID-19 Rule-Out 09/21/2022 09/21/2022 09/22/2022 6:38 AM EST Infection Onset Date Last Indicated Resolved Time COVID-19 Confirmed 01/24/2023 01/24/2023 Infection Onset Date Last Indicated Resolved Time COVID-19 Rule-Out 03/01/2023 03/01/2023 Additional Source Comments INFORMATION SOURCE (unrecogn ized section and content) DATE CREATED AUTHOR AUTHOR'S ORGANIZ ATION 03/22/2018 [facility] DATE CREATED AUTHOR AUTHOR'S ORGANIZ ATION 03/22/2018 [facility] DATE CREATED AUTHOR AUTHOR'S ORGANIZ ATION 04/27/2022 [facility] DATE CREATED AUTHOR AUTHOR'S ORGANIZ ATION 10/11/2023 [facility] Source Comments (unrecognize d section and content) In the event this informatio n is protected by the Federal Confidentiality of Alcohol and Drug Abuse Patient Records regulations: The Federal rules restrict any use of the information to criminally investigate or prosecute any alcohol or drug abuse patient.[facility] the event this information is protected by the Federal Confidentiality of Alcohol and Drug Abuse Patient Records regulations: The Federal rules restrict any use of the information to criminally investigate or prosecute any alcohol or drug abuse patient.[facility] CenterIn the event this information is protected by the Federal Confidentiality of Alcohol and Drug Abuse Patient Records regulations: The Federal rules restrict any use of the information to criminally investigate or prosecute any alcohol or drug abuse patient.[facility] CenterIn the event this information is protected by the Federal Confidentiality of Alcohol and Drug Abuse Patient Records regulations: The Federal rules restrict any use of the information to criminally investigate or prosecute any alcohol or drug abuse patient.[facility] CenterIn the event this information is protected by the Federal Confidentiality of Alcohol and Drug Abuse Patient Records regulations: The Federal rules restrict any use of the information to criminally investigate or prosecute any alcohol or drug abuse patient.[facility] CenterIn the event this information is protected by the Federal Confidentiality of Alcohol and Drug Abuse Patient Records regulations: The Federal rules restrict any use of the information to criminally investigate or prosecute any alcohol or drug abuse patient.[facility] CenterIn the event this information is protected by the Federal Confidentiality of Alcohol and Drug Abuse Patient Records regulations: The Federal rules restrict any use of the information to criminally investigate or prosecute any alcohol or drug abuse patient.[facility] CenterIn the event this information is protected by the Federal Confidentiality of Alcohol and Drug Abuse Patient Records regulations: The Federal rules restrict any use of the information to criminally investigate or prosecute any alcohol or drug abuse patient.[facility] CenterIn the event this information is protected by the Federal Confidentiality of Alcohol and Drug Abuse Patient Records regulations: The Federal rules restrict any use of the information to criminally investigate or prosecute any alcohol or drug abuse patient.[facility] CenterIn the event this information is protected by the Federal Confidentiality of Alcohol and Drug Abuse Patient Records regulations: The Federal rules restrict any use of the information to criminally investigate or prosecute any alcohol or drug abuse patient.[facility] CenterIn the event this information is protected by the Federal Confidentiality of Alcohol and Drug Abuse Patient Records regulations: The Federal rules restrict any use of the information to criminally investigate or prosecute any alcohol or drug abuse patient.[facility] CenterIn the event this information is protected by the Federal Confidentiality of Alcohol and Drug Abuse Patient Records regulations: The Federal rules restrict any use of the information to criminally investigate or prosecute any alcohol or drug abuse patient.[facility] CenterIn the event this information is protected by the Federal Confidentiality of Alcohol and Drug Abuse Patient Records regulations: The Federal rules restrict any use of the information to criminally investigate or prosecute any alcohol or drug abuse patient.[facility] CenterIn the event this information is protected by the Federal Confidentiality of Alcohol and Drug Abuse Patient Records regulations: The Federal rules restrict any use of the information to criminally investigate or prosecute any alcohol or drug abuse patient.[facility] CenterIn the event this information is protected by the Federal Confidentiality of Alcohol and Drug Abuse Patient Records regulations: The Federal rules restrict any use of the information to criminally investigate or prosecute any alcohol or drug abuse patient.[facility] CenterIn the event this information is protected by the Federal Confidentiality of Alcohol and Drug Abuse Patient Records regulations: The Federal rules restrict any use of the information to criminally investigate or prosecute any alcohol or drug abuse patient.[facility] CenterIn the event this information is protected by the Federal Confidentiality of Alcohol and Drug Abuse Patient Records regulations: The Federal rules restrict any use of the information to criminally investigate or prosecute any alcohol or drug abuse patient.[facility] CenterIn the event this information is protected by the Federal Confidentiality of Alcohol and Drug Abuse Patient Records regulations: The Federal rules restrict any use of the information to criminally investigate or prosecute any alcohol or drug abuse patient.[facility] CenterIn the event this information is protected by the Federal Confidentiality of Alcohol and Drug Abuse Patient Records regulations: The Federal rules restrict any use of the information to criminally investigate or prosecute any alcohol or drug abuse patient.[facility] CenterIn the event this information is protected by the Federal Confidentiality of Alcohol and Drug Abuse Patient Records regulations: The Federal rules restrict any use of the information to criminally investigate or prosecute any alcohol or drug abuse patient.[facility] CenterIn the event this information is protected by the Federal Confidentiality of Alcohol and Drug Abuse Patient Records regulations: The Federal rules restrict any use of the information to criminally investigate or prosecute any alcohol or drug abuse patient.[facility] CenterIn the event this information is protected by the Federal Confidentiality of Alcohol and Drug Abuse Patient Records regulations: The Federal rules restrict any use of the information to criminally investigate or prosecute any alcohol or drug abuse patient.[facility] CenterIn the event this information is protected by the Federal Confidentiality of Alcohol and Drug Abuse Patient Records regulations: The Federal rules restrict any use of the information to criminally investigate or prosecute any alcohol or drug abuse patient.[facility] CenterIn the event this information is protected by the Federal Confidentiality of Alcohol and Drug Abuse Patient Records regulations: The Federal rules restrict any use of the information to criminally investigate or prosecute any alcohol or drug abuse patient.[facility] CenterIn the event this information is protected by the Federal Confidentiality of Alcohol and Drug Abuse Patient Records regulations: The Federal rules restrict any use of the information to criminally investigate or prosecute any alcohol or drug abuse patient.[facility] CenterIn the event this information is protected by the Federal Confidentiality of Alcohol and Drug Abuse Patient Records regulations: The Federal rules restrict any use of the information to criminally investigate or prosecute any alcohol or drug abuse patient.[facility] CenterIn the event this information is protected by the Federal Confidentiality of Alcohol and Drug Abuse Patient Records regulations: The Federal rules restrict any use of the information to criminally investigate or prosecute any alcohol or drug abuse patient.[facility] CenterIn the event this information is protected by the Federal Confidentiality of Alcohol and Drug Abuse Patient Records regulations: The Federal rules restrict any use of the information to criminally investigate or prosecute any alcohol or drug abuse patient.[facility] CenterIn the event this information is protected by the Federal Confidentiality of Alcohol and Drug Abuse Patient Records regulations: The Federal rules restrict any use of the information to criminally investigate or prosecute any alcohol or drug abuse patient.[facility] CenterIn the event this information is protected by the Federal Confidentiality of Alcohol and Drug Abuse Patient Records regulations: The Federal rules restrict any use of the information to criminally investigate or prosecute any alcohol or drug abuse patient.[facility] CenterIn the event this information is protected by the Federal Confidentiality of Alcohol and Drug Abuse Patient Records regulations: The Federal rules restrict any use of the information to criminally investigate or prosecute any alcohol or drug abuse patient.[facility] CenterIn the event this information is protected by the Federal Confidentiality of Alcohol and Drug Abuse Patient Records regulations: The Federal rules restrict any use of the information to criminally investigate or prosecute any alcohol or drug abuse patient.[facility] CenterIn the event this information is protected by the Federal Confidentiality of Alcohol and Drug Abuse Patient Records regulations: The Federal rules restrict any use of the information to criminally investigate or prosecute any alcohol or drug abuse patient.[facility] CenterIn the event this information is protected by the Federal Confidentiality of Alcohol and Drug Abuse Patient Records regulations: The Federal rules restrict any use of the information to criminally investigate or prosecute any alcohol or drug abuse patient.[facility] CenterIn the event this information is protected by the Federal Confidentiality of Alcohol and Drug Abuse Patient Records regulations: The Federal rules restrict any use of the information to criminally investigate or prosecute any alcohol or drug abuse patient.[facility] CenterIn the event this information is protected by the Federal Confidentiality of Alcohol and Drug Abuse Patient Records regulations: The Federal rules restrict any use of the information to criminally investigate or prosecute any alcohol or drug abuse patient.[facility] CenterIn the event this information is protected by the Federal Confidentiality of Alcohol and Drug Abuse Patient Records regulations: The Federal rules restrict any use of the information to criminally investigate or prosecute any alcohol or drug abuse patient.[facility] CenterIn the event this information is protected by the Federal Confidentiality of Alcohol and Drug Abuse Patient Records regulations: The Federal rules restrict any use of the information to criminally investigate or prosecute any alcohol or drug abuse patient.[facility] CenterIn the event this information is protected by the Federal Confidentiality of Alcohol and Drug Abuse Patient Records regulations: The Federal rules restrict any use of the information to criminally investigate or prosecute any alcohol or drug abuse patient.[facility] CenterIn the event this information is protected by the Federal Confidentiality of Alcohol and Drug Abuse Patient Records regulations: The Federal rules restrict any use of the information to criminally investigate or prosecute any alcohol or drug abuse patient.[facility] CenterIn the event this information is protected by the Federal Confidentiality of Alcohol and Drug Abuse Patient Records regulations: The Federal rules restrict any use of the information to criminally investigate or prosecute any alcohol or drug abuse patient.[facility] CenterIn the event this information is protected by the Federal Confidentiality of Alcohol and Drug Abuse Patient Records regulations: The Federal rules restrict any use of the information to criminally investigate or prosecute any alcohol or drug abuse patient.[facility] CenterIn the event this information is protected by the Federal Confidentiality of Alcohol and Drug Abuse Patient Records regulations: The Federal rules restrict any use of the information to criminally investigate or prosecute any alcohol or drug abuse patient.[facility] CenterIn the event this information is protected by the Federal Confidentiality of Alcohol and Drug Abuse Patient Records regulations: The Federal rules restrict any use of the information to criminally investigate or prosecute any alcohol or drug abuse patient.[facility] CenterIn the event this information is protected by the Federal Confidentiality of Alcohol and Drug Abuse Patient Records regulations: The Federal rules restrict any use of the information to criminally investigate or prosecute any alcohol or drug abuse patient.[facility] CenterIn the event this information is protected by the Federal Confidentiality of Alcohol and Drug Abuse Patient Records regulations: The Federal rules restrict any use of the information to criminally investigate or prosecute any alcohol or drug abuse patient.[facility] CenterIn the event this information is protected by the Federal Confidentiality of Alcohol and Drug Abuse Patient Records regulations: The Federal rules restrict any use of the information to criminally investigate or prosecute any alcohol or drug abuse patient.[facility] CenterIn the event this information is protected by the Federal Confidentiality of Alcohol and Drug Abuse Patient Records regulations: The Federal rules restrict any use of the information to criminally investigate or prosecute any alcohol or drug abuse patient.[facility] CenterIn the event this information is protected by the Federal Confidentiality of Alcohol and Drug Abuse Patient Records regulations: The Federal rules restrict any use of the information to criminally investigate or prosecute any alcohol or drug abuse patient.[facility] CenterIn the event this information is protected by the Federal Confidentiality of Alcohol and Drug Abuse Patient Records regulations: The Federal rules restrict any use of the information to criminally investigate or prosecute any alcohol or drug abuse patient.[facility] CenterIn the event this information is protected by the Federal Confidentiality of Alcohol and Drug Abuse Patient Records regulations: The Federal rules restrict any use of the information to criminally investigate or prosecute any alcohol or drug abuse patient.[facility] CenterIn the event this information is protected by the Federal Confidentiality of Alcohol and Drug Abuse Patient Records regulations: The Federal rules restrict any use of the information to criminally investigate or prosecute any alcohol or drug abuse patient.[facility] CenterIn the event this information is protected by the Federal Confidentiality of Alcohol and Drug Abuse Patient Records regulations: The Federal rules restrict any use of the information to criminally investigate or prosecute any alcohol or drug abuse patient.[facility] CenterIn the event this information is protected by the Federal Confidentiality of Alcohol and Drug Abuse Patient Records regulations: The Federal rules restrict any use of the information to criminally investigate or prosecute any alcohol or drug abuse patient.[facility] CenterIn the event this information is protected by the Federal Confidentiality of Alcohol and Drug Abuse Patient Records regulations: The Federal rules restrict any use of the information to criminally investigate or prosecute any alcohol or drug abuse patient.[facility] CenterIn the event this information is protected by the Federal Confidentiality of Alcohol and Drug Abuse Patient Records regulations: The Federal rules restrict any use of the information to criminally investigate or prosecute any alcohol or drug abuse patient.[facility] CenterIn the event this information is protected by the Federal Confidentiality of Alcohol and Drug Abuse Patient Records regulations: The Federal rules restrict any use of the information to criminally investigate or prosecute any alcohol or drug abuse patient.[facility] CenterIn the event this information is protected by the Federal Confidentiality of Alcohol and Drug Abuse Patient Records regulations: The Federal rules restrict any use of the information to criminally investigate or prosecute any alcohol or drug abuse patient.[facility] CenterIn the event this information is protected by the Federal Confidentiality of Alcohol and Drug Abuse Patient Records regulations: The Federal rules restrict any use of the information to criminally investigate or prosecute any alcohol or drug abuse patient.[facility] CenterIn the event this information is protected by the Federal Confidentiality of Alcohol and Drug Abuse Patient Records regulations: The Federal rules restrict any use of the information to criminally investigate or prosecute any alcohol or drug abuse patient.[facility] CenterIn the event this information is protected by the Federal Confidentiality of Alcohol and Drug Abuse Patient Records regulations: The Federal rules restrict any use of the information to criminally investigate or prosecute any alcohol or drug abuse patient.[facility] CenterIn the event this information is protected by the Federal Confidentiality of Alcohol and Drug Abuse Patient Records regulations: The Federal rules restrict any use of the information to criminally investigate or prosecute any alcohol or drug abuse patient.[facility] CenterIn the event this information is protected by the Federal Confidentiality of Alcohol and Drug Abuse Patient Records regulations: The Federal rules restrict any use of the information to criminally investigate or prosecute any alcohol or drug abuse patient.[facility] CenterIn the event this information is protected by the Federal Confidentiality of Alcohol and Drug Abuse Patient Records regulations: The Federal rules restrict any use of the information to criminally investigate or prosecute any alcohol or drug abuse patient.[facility] CenterIn the event this information is protected by the Federal Confidentiality of Alcohol and Drug Abuse Patient Records regulations: The Federal rules restrict any use of the information to criminally investigate or prosecute any alcohol or drug abuse patient.[facility] CenterIn the event this information is protected by the Federal Confidentiality of Alcohol and Drug Abuse Patient Records regulations: The Federal rules restrict any use of the information to criminally investigate or prosecute any alcohol or drug abuse patient.[facility] CenterIn the event this information is protected by the Federal Confidentiality of Alcohol and Drug Abuse Patient Records regulations: The Federal rules restrict any use of the information to criminally investigate or prosecute any alcohol or drug abuse patient.[facility] CenterIn the event this information is protected by the Federal Confidentiality of Alcohol and Drug Abuse Patient Records regulations: The Federal rules restrict any use of the information to criminally investigate or prosecute any alcohol or drug abuse patient.[facility] CenterIn the event this information is protected by the Federal Confidentiality of Alcohol and Drug Abuse Patient Records regulations: The Federal rules restrict any use of the information to criminally investigate or prosecute any alcohol or drug abuse patient.[facility] CenterIn the event this information is protected by the Federal Confidentiality of Alcohol and Drug Abuse Patient Records regulations: The Federal rules restrict any use of the information to criminally investigate or prosecute any alcohol or drug abuse patient.[facility] CenterIn the event this information is protected by the Federal Confidentiality of Alcohol and Drug Abuse Patient Records regulations: The Federal rules restrict any use of the information to criminally investigate or prosecute any alcohol or drug abuse patient.[facility] CenterIn the event this information is protected by the Federal Confidentiality of Alcohol and Drug Abuse Patient Records regulations: The Federal rules restrict any use of the information to criminally investigate or prosecute any alcohol or drug abuse patient.[facility] CenterIn the event this information is protected by the Federal Confidentiality of Alcohol and Drug Abuse Patient Records regulations: The Federal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 Specialty Start Date End Date Jaguar Cook PA-C [address] [place] [address] PCP - General Family Practice 10/21/20 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 Specialty Start Date End Date Jaguar Cook PA-C [address] [place] [address] PCP - General Family Practice 10/21/20 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 Specialty Start Date End Date Jaguar Cook PA-C [address] [place] [address] PCP - General Family Practice 10/21/20 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 Specialty Start Date End Date Jaguar Cook PA-C [address] [place] [address] PCP - General Family Practice 10/21/20 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 Specialty Start Date End Date Jaguar Cook PA-C [address] [place] [address] PCP - General Family Practice 10/21/20 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 Specialty Start Date End Date Jaguar Cook PA-C [address] [place] [address] PCP - General Family Practice 10/21/20 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 Specialty Start Date End Date Jaguar Cook PA-C [address] [place] [address] PCP - General Family Practice 10/21/20 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 Specialty Start Date End Date Jaguar Cook PA-C [address] [facility] [place] [address] PCP - General Family Practice 10/21/20 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 Specialty Start Date End Date Jaguar Cook PA-C [address] [facility] [place] [address] PCP - General Family Practice 10/21/20 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 Specialty Start Date End Date Jaguar Cook PA-C [address] [facility] [place] [address] PCP - General Family Practice 10/21/20 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 Specialty Start Date End Date Jaguar Cook PA-C [address] [facility] [place] [address] PCP - General Family Practice 10/21/20 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 Specialty Start Date End Date Jaguar Cook PA-C [address] [facility] [place] [address] PCP - General Family Practice 10/21/20 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 Specialty Start Date End Date Jaguar Cook PA-C [address] [facility] [place] [address] PCP - General Family Practice 10/21/20 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 Specialty Start Date End Date Jaguar Cook PA-C [address] [facility] [place] [address] PCP - General Family Practice 10/21/20 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 Specialty Start Date End Date Jaguar Cook PA-C [address] [facility] [place] [address] PCP - General Family Practice 10/21/20 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 Specialty Start Date End Date Jaguar Cook PA-C [address] [place] [address] PCP - General Family Practice 10/21/20 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 Specialty Start Date End Date Jaguar Cook PA-C [address] [place] [address] PCP - General Family Practice 10/21/20 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 Specialty Start Date End Date Jaguar Cook PA-C [address] [place] [address] PCP - General Family Practice 10/21/20 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 Specialty Start Date End Date Jaguar Cook PA-C [address] [place] [address] PCP - General Family Practice 10/21/20 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 Specialty Start Date End Date Jaguar Cook PA-C [address] [place] [address] PCP - General Family Practice 10/21/20 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 Specialty Start Date End Date Jaguar Cook PA-C [address] [place] [address] PCP - General Family Practice 10/21/20 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 Specialty Start Date End Date Jaguar Cook PA-C [address] [place] [address] PCP - General Family Practice 10/21/20 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 Specialty Start Date End Date Jaguar Cook PA-C [address] [place] [address] PCP - General Family Practice 10/21/20 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 Specialty Start Date End Date Jaguar Cook PA-C [address] [place] [address] PCP - General Family Practice 10/21/20 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 Specialty Start Date End Date Jaguar Cook PA-C [address] [facility] [place] [address] PCP - General Family Practice 10/21/20 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 Specialty Start Date End Date Jaguar Cook PA-C [address] [facility] [place] [address] PCP - General Family Medicine 10/21/20 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 Specialty Start Date End Date Jaguar Cook PA-C [address] [facility] [place] [address] PCP - General Family Medicine 10/21/20 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 Specialty Start Date End Date Jaguar Cook PA-C [address] [facility] [place] [address] PCP - General Family Medicine 10/21/20 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 Specialty Start Date End Date Jaguar Cook PA-C [address] [facility] [place] [address] PCP - General Family Medicine 10/21/20 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 Specialty Start Date End Date Jaguar Cook PA-C [address] [facility] [place] [address] PCP - General Family Medicine 10/21/20 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 Specialty Start Date End Date Jaguar Cook PA-C [address] [facility] [place] [address] PCP - General Family Medicine 10/21/20 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 Specialty Start Date End Date Jaguar Cook PA-C [address] [facility] [place] [address] PCP - General Family Medicine 10/21/20 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 Specialty Start Date End Date Jaguar Cook PA-C [address] [place] [address] PCP - General Family Medicine 10/21/20 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 Specialty Start Date End Date Jaguar Cook PA-C [address] [place] [address] PCP - General Family Medicine 10/21/20 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 Specialty Start Date End Date Jaguar Cook PA-C [address] [place] [address] PCP - General Family Medicine 10/21/20 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 Specialty Start Date End Date Jaguar Cook PA-C [address] [place] [address] PCP - General Family Medicine 10/21/20 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 Specialty Start Date End Date Jaguar Cook PA-C [address] [place] [address] PCP - General Family Medicine 10/21/20 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 Specialty Start Date End Date Jaguar Cook PA-C [address] [place] [address] PCP - General Family Medicine 10/21/20 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 Specialty Start Date End Date Jaguar Cook PA-C [address] [place] [address] PCP - General Family Medicine 10/21/20 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 Specialty Start Date End Date Jaguar Cook PA-C [address] [place] [address] PCP - General Family Medicine 10/21/20 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 Specialty Start Date End Date Jaguar Cook PA-C [address] [place] [address] PCP - General Family Medicine 10/21/20 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 Specialty Start Date End Date Jaguar Cook PA-C [address] [place] [address] PCP - General Family Medicine 10/21/20 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 Specialty Start Date End Date Jaguar Cook PA-C [address] [place] [address] PCP - General Family Medicine 10/21/20 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 Specialty Start Date End Date Jaguar Cook PA-C [address] [place] [address] PCP - General Family Medicine 10/21/20 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 Specialty Start Date End Date Jaguar Cook PA-C [address] [place] [address] PCP - General Family Medicine 10/21/20 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 Specialty Start Date End Date Jaguar Cook PA-C [address] [place] [address] PCP - General Family Medicine 10/21/20 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 Specialty Start Date End Date Jaguar Cook PA-C [address] [place] [address] PCP - General Family Medicine 10/21/20 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 Specialty Start Date End Date Jaguar Cook PA-C [address] [place] [address] PCP - General Family Medicine 10/21/20 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 Specialty Start Date End Date Jaguar Cook PA-C [address] [place] [address] PCP - General Family Medicine 10/21/20 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 Specialty Start Date End Date Jaguar Cook PA-C [address] [place] [address] PCP - General Family Medicine 10/21/20 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 Specialty Start Date End Date Jaguar Cook PA-C [address] [place] [address] PCP - General Family Medicine 10/21/20 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 Specialty Start Date End Date Jaguar Cook PA-C [address] [place] [address] PCP - General Family Medicine 10/21/20 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 Specialty Start Date End Date Jaguar Cook PA-C [address] [place] [address] PCP - General Family Medicine 10/21/20 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 Specialty Start Date End Date Jaguar Cook PA-C [address] [place] [address] PCP - General Family Medicine 10/21/20 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 Specialty Start Date End Date Jaguar Cook PA-C [address] [place] [address] PCP - General Family Medicine 10/21/20 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 Specialty Start Date End Date Jaguar Cook PA-C [address] [place] [address] PCP - General Family Medicine 10/21/20 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 Specialty Start Date End Date Jaguar Cook PA-C [address] [place] [address] PCP - General Family Medicine 10/21/20 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 Specialty Start Date End Date Jaguar Cook PA-C [address] [place] [address] PCP - General Family Medicine 10/21/20 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 Specialty Start Date End Date Jaguar Cook PA-C [address] [place] [address] PCP - General Family Medicine 10/21/20 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 Specialty Start Date End Date Jaguar Cook PA-C [address] [place] [address] PCP - General Family Medicine 10/21/20 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 Specialty Start Date End Date Jaguar Cook PA-C [address] [place] [address] PCP - General Family Medicine 10/21/20 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 Specialty Start Date End Date Jaguar Cook PA-C [address] [place] [address] PCP - General Family Medicine 10/21/20 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 Specialty Start Date End Date Jaguar Cook PA-C [address] [place] [address] PCP - General Family Medicine 10/21/20 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 Specialty Start Date End Date Jaguar Cook PA-C [address] [place] [address] PCP - General Family Medicine 10/21/20 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 Specialty Start Date End Date Jaguar Cook PA-C [address] [place] [address] PCP - General Family Medicine 10/21/20 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 Specialty Start Date End Date Jaguar Cook PA-C [address] [place], [place] [address] PCP - [facility] 10/21/20 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 Specialty Start Date End Date Jaguar Cook PA-C [address] [place], [place] [address] PCP - [facility] 10/21/20 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 Specialty Start Date End Date Jaguar Cook PA-C [address] [place], [place] [address] PCP - [facility] 10/21/20 FOR RECORDS PERTAINING TO PATIENTS WHO ARE OR HAVE BEEN ENROLLED IN A CHEMICAL DEPENDENCY/SUBSTANCEABUSE PROGRAM, SOME INFORMATION MAY BE OMITTED. This clinical summary was aggregated from multiple sources. Caution should be exercised in using it in the provision of clinical care. This summary normalizes information from multiple sources, and as a consequence, information in this document may materially change the coding, format and clinical context of patient data. In addition, data may be omitted in some cases. CLINICAL DECISIONS SHOULD BE BASED ON THE PRIMARY CLINICAL RECORDS. [facility] [employer] [facility]. provides no warranty or guarantee of the accuracy or completeness of information in this document.
[2023-10-13 19:17] LABS: Bacteria 0 SEEN /hpf (None Seen)
[2023-10-13 19:18] LABS: Color, Urine Yellow (Yellow); Glucose, Dipstick Normal (Normal); Ketone-Dipstick 5 mg/dl (Negative); Leukocyte Esterase-Dipstick 100 /ul (Negative); Nitrite-Dipstick Negative (Negative); Occult Blood-Urine 250 /ul (Negative); Protein-Dipstick 30 mg/dl (Negative); Urine Bilirubin Dipstick Negative (Negative); Urine Clarity Clear (Clear); Urine Urobilinogen 1 mg/dl (Normal); Urine pH 6.5 (5.0 - 8.0)
[2023-10-13 19:23] LABS: Red Blood Cells-Urine 0-5 SEEN /hpf (0-5); Squamous Epithelial Cells - UA 5-10 SEEN /hpf (5-10); White Blood Cells 0-5 SEEN /hpf (0-5)
[2023-10-13 19:24] LABS: Mucous, Urine RARE /hpf (<or=2+)
== END 2023-10-13 19:24 | disposition home or self-care (01) ==
PROVIDERS: Emergency Provider Emergency Medicine; PCP Physician Assistant; Visit Provider Emergency Medicine
DX: N89.8 Other specified noninflammatory disorders of vagina (principal)
CPT/HCPCS: 81001; 87491; 87591; 87661; 99282

== ENCOUNTER 2023-12-10 23:36 | Emergency (ER) | payer MEDICAID, SELFPAY ==
[2023-12-10 23:37] VITALS: BP 150/114; PULSE 74; RESP 14; TEMP 36.4; O2SAT 95; BMI 30.9
[2023-12-10 23:46] VITALS: BP 137/96
--- NOTE | 2023-12-10 23:53 | RAD_ITS ---
EXAM: XR ABDOMEN, 1 VIEW CLINICAL INDICATION: constipation TECHNIQUE: Frontal supine view of the abdomen/pelvis. COMPARISON: Right hip radiograph report of 10/15/2022. FINDINGS: LOWER THORAX: No acute pathology. GASTROINTESTINAL TRACT: Unremarkable. Non-obstructive. No bowel or stomach distention. Gas is scattered within the colon and nondistended small bowel loops. No findings of constipation. ORGANS: IUD is again projected over the central pelvis in the expected region of the uterus. Tubal ligation clip again noted on the left. No organomegaly. No abnormal calcifications. BONES/JOINTS: No acute pathology. SOFT TISSUES: Unremarkable. RAD/Abdomen Single View IMPRESSION: No acute findings. No findings of constipation are identified. Electronically Signed: Cleveland Balderas MD at 1:18 EDT ,
--- NOTE | 2023-12-10 23:54 | EX.ED.DYSGE1 ---
HPI History of Present Illness Chief Complaint: Constipation Informant: patient Narrative Narrative: 48-year-old female presenting to the emergency room with constipation. Patient states that about 2 weeks ago she was diagnosed with a UTI and started on Macrobid and began to have constipation. She went to urgent care had abdominal x-ray that showed a normal amount of stool . She states that she has tried MiraLAX magnesium citrate a enema and stool softeners. She states she has not had any stool for 3 days now. She feels pressure in the rectum. She denies any bleeding. No vomiting or fevers. [facility] Medical History Anxiety History of hypercholesterolemia Hypertension Panic attacks Home Medications metoprolol tartrate 50 mg tablet 50 mg PO BID 09/11/13 [History Last Taken 11/18/20] simvastatin 10 mg tablet 10 mg PO DAILY 01/21/19 [History Last Taken 11/18/20] albuterol sulfate 90 mcg/actuation aerosol inhaler 2 puff inhalation Q6H PRN Sob &/Or Wheezing 11/18/20 [History Last Taken 11/18/20] fluticasone propionate 50 mcg/actuation nasal spray,suspension 2 spray NASAL DAILY ALLERGIES 11/18/20 [History Last Taken 11/18/20] omeprazole 20 mg tablet,delayed release 20 mg PO DAILY 11/18/20 [History Last Taken 11/18/20] albuterol sulfate 90 mcg/actuation aerosol inhaler (Ventolin HFA) 2 puff inhalation Q4H PRN PRN Wheezing ##1 09/26/22 [Rx Last Taken Unknown] cyclobenzaprine 10 mg tablet 10 mg PO TID PRN PRN muscle spasm 12/10/23 [History Last Taken Unknown] ibuprofen 800 mg tablet 800 mg PO Q8H PRN PRN pain 12/10/23 [History Last Taken Unknown] ondansetron 4 mg disintegrating tablet 4 mg PO Q6H PRN PRN nausea/vomiting 12/10/23 [History Last Taken Unknown] oxybutynin chloride 5 mg tablet,extended release 24 hr 5 mg PO DAILY 12/10/23 [History Last Taken Unknown] polyethylene glycol 3350 17 gram/dose oral powder 17 g PO DAILY 12/10/23 [History Last Taken Unknown] Allergy/AdvReac Type Severity Reaction Status Date / Time No Known Allergies Allergy Verified 12/10/23 23:43 Family History Other CAD (coronary artery disease) Surgical History Hx of cholecystectomy Hx of tubal ligation Social History household members: none Smoking Status: Never smoker substance use type: does not use ROS ROS ED Constitutional Constitutional ED: Denies chills, fever(s) or weight loss Eyes Eyes: Denies change in vision or diplopia ENT ENT ED: Denies ear pain, rhinorrhea or sore throat Cardiovascular Cardiovascular: Denies chest pain, orthopnea, palpitations or racing heartbeat Respiratory/Chest Respiratory/Chest: Denies cough, dyspnea or orthopnea Gastrointestinal Gastrointestinal: Reports constipation and other Details: Rectal pressure ; Denies abdominal pain, diarrhea, melena, nausea or vomiting Genitourinary Genitourinary ED: Denies dysuria, hematuria or urinary frequency Musculoskeletal Musculoskeletal: Denies arthralgias or myalgias Integumentary Denies abscess or rash Neurologic Neurologic: Denies headache(s) or weakness Psychiatric Psychiatric: Denies anxiety, depression, suicidal ideation or suicidal thoughts Endocrine Endocrinology: Denies polydipsia, polyphagia or polyuria Allergic/Immunologic Allergic/Immunologic ED: Denies mouth swelling, tongue swelling or urticaria EXAM Physical Exam Const Vital Signs: 12/10/23 23:37 12/10/23 23:46 12/11/23 01:21 Temperature 97.5 F L 97.5 F L Temperature Source Oral Pulse Rate 74 72 Respiratory Rate 14 16 Blood Pressure 150/114 H 137/96 H 132/71 H Blood Pressure Mean 126 109 91 Pulse Ox 95 99 Oxygen Delivery Method Room Air Positive well nourished and well developed General Appearance ED: well developed HEENT Reports normocephalic, head/scalp atraumatic and moist mucous membranes Eyes PERRL and EOMs intact bilaterally Neck no lymphadenopathy, supple and no JVD Resp normal respiratory effort and clear to auscultation bilaterally Cardio regular rate, regular rhythm and no murmurs GI normal to inspection, nondistended, normoactive bowel sounds and non-tender Palpation: soft Back/Spine no CVA tenderness and normal ROM Extremity normal to inspection General Extremety ED: Negative for edema General Extremity: Negative for edema Neuro oriented x3 and CN's II-XII intact bilaterally Sensorium / Orientation: alert Motor Exam: strength 5/5 throughout Psych mental status grossly normal Mood & Affect: Negative for depressed or tearful Skin no rashes or lesions noted and no wounds MDM MDM MDM Narrative Medical decision making narrative: My independent interpretation of the plain films of the abdomen is a nonobstructive pattern. Patient was given an enema and had large results. She feels significantly better. At this point think the patient can be discharged home. I do not see volvulus or obstruction. I do not see any perforation/free air. Her symptoms are resolved. Radiography Diagnostic Testing: Clinical Impression(s) from Imaging Studies KUB X-Ray 12/10/23 23:53 IMPRESSION: No acute findings. No findings of constipation are identified. Electronically Signed: Cleveland Balderas MD at 1:18 EDT , Discharge Plan Triage Chief Complaint: Constipation ED Provider: Edenilson Mortensen Dx/Rx/DC Orders Clinical Impression: Constipation, Pain in rectum Instructions: ED Constipation (Adult) Prescriptions: No Action metoprolol tartrate 50 MG tablet 50 mg PO BID Patient Comments: BP/HEART MEDICATION simvastatin 10 tablet 10 mg PO DAILY omeprazole 20 MG tablet,delayed release (DR/EC) 20 mg PO DAILY albuterol sulfate 1 PUFF inhaler 2 puff INHALATION Q6H PRN (Reason: Sob &/Or Wheezing) Patient Comments: Inhale 2 Puffs as instructed every 6 hours as needed. fluticasone propionate 1 SPRAY spray,suspension 2 spray NASAL DAILY Hold Instructions: Order Completed albuterol sulfate [Ventolin HFA] 90 mcg/actuation HFA aerosol inhaler 2 puff inhalation Q4H PRN PRN (Reason: Wheezing) Qty: 1 0RF cyclobenzaprine 10 mg tablet 10 mg PO TID PRN PRN (Reason: muscle spasm) ibuprofen 800 mg tablet 800 mg PO Q8H PRN PRN (Reason: pain) oxybutynin chloride 5 mg tablet extended release 24hr 5 mg PO DAILY polyethylene glycol 3350 17 gram/dose powder 17 g PO DAILY ondansetron 4 mg tablet,disintegrating 4 mg PO Q6H PRN PRN (Reason: nausea/vomiting) Primary Care Provider: Jaguar Cook Referrals: Jaguar Cook, PA [Primary Care Provider] - As Needed Disposition Disposition: Home, Self Care Discharge Date/Time: 12/11/23 01:22
--- OUTSIDE RECORDS SUMMARY | 2023-12-11 01:11 | XMS RPT_ITS | CCD ---
Author Name Unknown Address [email or web address] [place] [address] Organization [facility] Care Team Providers Care Hadoop Developer Name Role Phone Rony Adry Unavailable Unavailable Opal Casiano Unavailable Unavailable Opal Casiano Unavailable Unavailable KARINA MEDINA Unavailable Unavailable AARTI MEDINASSICA Unavailable Unavailable KARINA MEDINA R Unavailable Unavailable KARINA MEDINA R Unavailable Unavailable Guillermo Lizama Unavailable Unavailable Jaguar Cook PA-C Primary Care Provider [phone] Jaguar Cook PA-C Primary Care Provider [phone] Jaguar Cook PA-C Primary Care Provider [phone] Jaguar Cook PA-C Primary Care Provider [phone] JONAH IBRAHIM Attending Unavailable SELF Referring Unavailable Jaguar COOK Primary Care Unavailable Jaguar COOK Attending Unavailable Jaguar COOK Primary Care Unavailable Jaguar COOK Primary Care Unavailable YOHANNES MICHAEL Referring Unavailable Jaguar COOK Primary Care Unavailable Jaguar COOK Referring Unavailable Jaguar COOK Primary Care Unavailable Jaguar COOK Primary Care Unavailable JONAH IBRAHIM Attending Unavailable YEISON IGNACIO Referring Unavailable Jaguar COOK Primary Care Unavailable Jaguar COOK Primary Care Unavailable MORIAH HUTCHISON Referring Unavailable COOKJaguar ORDONEZ Primary Care Unavailable Jaguar COOK Primary Care Unavailable ALLIE SANTIAGO Referring Unavailable Jaguar COOK Primary Care Unavailable COOK, M NICOLETTE Primary Care Unavailable HAAGEN, JENNIFER Attending Unavailable COOK, M NICOLETTE Primary Care Unavailable HAAGEN, JENNIFER Referring Unavailable COOK, M NICOLETTE Primary Care Unavailable HAAGEN, JENNIFER Referring Unavailable O'MALIKKARINA AN Attending Unavailable COOK, M NICOLETTE Primary Care Unavailable HAAGEN, JENNIFER Referring Unavailable O'MALIKKARINA Attending Unavailable COOK, M NICOLETTE Primary Care Unavailable INDIGO CANDELARIO Attending Unavailable COOK, M NICOLETTE Primary Care Unavailable CLARK ZALDIVAR Attending Unavailable COOK, M NICOLETTE Primary Care Unavailable INDIGO CANDELARIO Attending Unavailable COOK, M NICOLETTE Primary Care Unavailable JANAY LIN Attending Unavail able COOK, M NICOLETTE Primary Care Unavailable NOHEMI KULKARNI Attending Unavailable COOK, M NICOLETTE Primary Care Unavailable BRANDON, NOHELIA Referring Unavailable COOK, M NICOLETTE Primary Care Unavailable COOK, M NICOLETTE Primary Care Unavailable BRANDON, NOHELIA Referring Unavailable BRANDON, NOHELIA Attending Unavailable COOK, M NICOLETTE Primary Care Unavailable INDIGO CANDELARIO Attending Unavailable COOK, M NICOLETTE Primary Care Unavailable BRANDON, NOHELIA Attending Unavailable COOK, M NICOLETTE Primary Care Unavailable COOK, M NICOLETTE Primary Care Unavailable COOK, M NICOLETTE Primary Care Unavailable BRANDON, NOHELAI Attending Unavailable COOK, M NICOLETTE Primary Care Unavailable GUILLERMO LIZAMA Referring Unavailable COOK, M NICOLETTE Primary Care Unavailable COOK, M NICOLETTE Primary Care Unavailable COOK, M NICOLETTE Primary Care Unavailable BRANDON, NOHELIA Referring Unavailable COOK, M NICOLETTE Primary Care Unavailable GUILLERMO LIZAMA Referring Unavailable COOK, M NICOLETTE Primary Care Unavailable COOK, M NICOLETTE Primary Care Unavailable PRAISLER-WOOD, MORIAH Referring Unavailable COOK, M NICOLETTE Primary Care Unavailable PRAISLER-WOOD, MORIAH Referring Unavailable COOK, M NICOLETTE Primary Care [...] Translations: [HOUSE DUST] Drug Allergy 0 Cough [facility] (20 sources) Seasonal allergy; Translations: [SEASONAL ALLERGIES] Allergy to substance 9 Shortness of Breath [facility] (20 sources) Maple Flavor; Translations: [MAPLE FLAVOR] Drug Allergy 0 Swelling [facility] (20 sources) metroNIDAZOLE; Translations: [METRONIDAZOLE] Drug Allergy 2 GI Upset [facility] Medications Current Medications Medication Drug Class(es) Dates Sig (Normalized) Sig (Original) betamethasone 0.5 mg/ml / clotrimazole 10 mg/ml topical cream (18 sources) Azole Antifungal, Corticosteroid Start: 04-23-2023 End: 04-30-2023 clotrimazole-beta methasone (LOTRISONE) cream Apply 1 application to affected area twice daily for 7 days. 15 g 0 04/23/2023 04/30/2023 Active Completed/Discontinued Medications Medication Drug Class(es) Dates Sig (Normalized) Sig (Original) [id number] 200 actuat albuterol 0.09 mg/actuat metered dose inhaler (20 sources) beta2-Adrenergic Agonist Start: 08-16-2021 End: 08-30-2023 take 2 puff(s) by inhalation every six hours as needed for wheezing albuterol HFA (PROVENTIL HFA, VENTOLIN HFA) 90 mcg/actuation inhaler Indications: SOB (shortness of breath) Inhale 2 Puffs as instructed every 6 hours as needed for wheezing/shortnes s of breath. 6.7 g 5 08/30/2023 Active Problems Active Problems Problem Classification Problem Date [...] 3 Chronic Genitourinary symptoms and ill-defined conditions (12 sources) Increased frequency of urination; Translations: [Frequency of micturition] Onset: 4 Episodic Headache, including migraine (1 source) Migraine with aura, intractable, without status migrainosus; Translations: [Migraine with aura, intractable, without status migrainosus] Onset: 8 Chronic Headache; including migraine (2 sources) Headache; Translations: [Headache, unspecified headache type] Episodic Inflammatory diseases of female pelvic organs [...] of vagina] Episodic Other female genital disorders (5 sources) Vaginal discharge; Translations: [Other specified noninflammatory [...] sources) Constipation; Translations: [Constipation, unspecified] Episodic Other gastrointestinal disorders (1 source) Acute constipation; Translations: [Constipation, unspecified] 12-07-2023 Episodic Other gastrointestinal disorders (1 source) Constipation, unspecified; Translations: [Acute constipation] Onset: 4 Episodic Other inflammatory condition of skin (1 [...] [Acute cough] Episodic Other nervous system disorders (1 source) Other chronic pain; Translations: [Chronic left shoulder pain] Onset: 3 Chronic Other non-traumatic joint disorders (1 source) Chronic pain of right upper limb; Translations: [Pain in right shoulder] Episodic Other non-traumatic joint disorders (2 sources) Pain in right knee; Translations: [Pain in joint, lower leg] Episodic Other non-traumatic joint disorders (1 source) Pain of right wrist; Translations: [Pain in right wrist] Episodic Other non-traumatic joint disorders (2 sources) [...] throat symptom; Translations: [Acute pharyngitis, unspecified] Episodic Pneumonia (except that caused by tuberculosis or sexually transmitted disease) (3 sources) Bacterial pneumonia; Translations: [Unspecified bacterial pneumonia] Episodic Residual codes; unclassified (1 source) Influenza-like [...] Lumbar pain; Translations: [Lumbar pain] Onset: 3 Past or Other Problems Problem [...] hemorrhoids; Translations: [Other hemorrhoids] Onset: 2 Episodic Immunizations and screening for infectious disease (5 sources) Patient encounter status; Translations: [Encounter for screening for human papillomavirus (HPV)] Onset: 3 Episodic Nonspecific chest pain (20 sources) Chest [...] Fibromyalgia; Translations: [Fibromyalgia] Onset: 7 Episodic Other female genital disorders (1 source) [...] 0 11-28-2019 Episodic Other non-traumatic joint disorders (20 sources) Pain in right shoulder; Translations: [Pain in joint, shoulder region] Onset: 0 11-28-2019 Episodic Other non-traumatic joint disorders (3 sources) Pain in left shoulder; Translations: [Pain in joint, shoulder region] Onset: 3 07-11-2023 Episodic Other skin disorders (20 sources) Acne; Translations: [Other acne] Onset: 5 08-30-2011 Episodic Other skin disorders (1 source) Other hypertrophic disorders of the skin; Translations: [Skin tag] Onset: 3 Episodic Spondylosis; intervertebral disc disorders; [...] Vital Sign Value Performing Clinician Sonu puckett 12-07-2023 09:03-0500 Body temperature 97.3 [degF] Moriah Praisler-Wood RO[address] DESIGN DRAFTSPERSON.CERTIFIED WELLNESS PROGRAM MANAGER Work Phone: [facility] 12-07-2023 09:03-0500 Body weight 76 kg Moriah Praisler-[address] DESIGN DRAFTSPERSON.[facility] Work Phone: [facility] 12-07-2023 09:03-0500 Diastolic blood pressure 90 mm[Hg] Moriah Praisler-[address] DESIGN DRAFTSPERSON.CERTIFIED WELLNESS PROGRAM MANAGER Work Phone: [facility] 12-07-2023 09:03-0500 Heart rate 62 /min Moriah Praisler-[address] DESIGN DRAFTSPERSON.CERTIFIED WELLNESS PROGRAM MANAGER Work Phone: [facility] 12-07-2023 09:03-0500 Respiratory rate 18 /min Moriah Praisler-[address] DESIGN DRAFTSPERSON.CERTIFIED WELLNESS PROGRAM MANAGER Work Phone: [facility] 12-07-2023 09:03-0500 SaO2% (BldA) [Mass fraction] 99 % Moriah Praisler-[address] DESIGN DRAFTSPERSON.CERTIFIED WELLNESS PROGRAM MANAGER Work Phone: [facility] 12-07-2023 09:03-0500 Systolic blood pressure 134 mm[Hg] Moriah Praisler-[address] DESIGN DRAFTSPERSON.CERTIFIED WELLNESS PROGRAM MANAGER Work Phone: [facility] 11-28-2023 09:07-0500 Body temperature 98.1 [degF] Krislyn Aberegg PA Work Phone: [facility] 11-28-2023 09:07-0500 Body weight 77.11 kg Krislyn Aberegg PA Work Phone: [facility] 11-28-2023 09:07-0500 Diastolic blood pressure 114 mm[Hg] Krislyn Aberegg PA Work Phone: [facility] 11-28-2023 09:07-0500 Heart rate 72 /min Krislyn Aberegg PA Work Phone: [facility] 11-28-2023 09:07-0500 SaO2% (BldA) [Mass fraction] 95 % Krislyn Aberegg PA Work Phone: [facility] 11-28-2023 09:07-0500 Systolic blood pressure 157 mm[Hg] Krislyn Aberegg PA Work Phone: [facility] 07-26-2023 13:29-0400 Body temperature 97.2 [degF] Yeison Athy PA-C Work Phone: [facility] 07-26-2023 13:29-0400 Body weight 75.75 kg Yeison Athy PA-C Work Phone: [facility] 07-26-2023 13:29-0400 Diastolic blood pressure 100 mm[Hg] Yeison Athy PA-C Work Phone: [facility] 07-26-2023 13:29-0400 Heart rate 65 /min Yeison Athy PA-C Work Phone: [facility] 07-26-2023 13:29-0400 Respiratory rate 22 /min Yeison Athy PA-C Work Phone: [facility] 07-26-2023 13:29-0400 SaO2% (BldA) [Mass fraction] 99 % Yeison Athy PA-C Work Phone: [facility] 07-26-2023 13:29-0400 Systolic blood pressure 160 mm[Hg] Yeison Athy PA-C Work Phone: [facility] 07-18-2023 17:55-0400 Body temperature 98.4 [degF] Yeison Athy PA-C Work Phone: [facility] 07-18-2023 17:55-0400 Body weight 75.57 kg Yeison Athy PA-C Work Phone: [facility] 07-18-2023 17:55-0400 Diastolic blood pressure 84 mm[Hg] Yeison Athy PA-C Work Phone: [facility] 07-18-2023 17:55-0400 Heart rate 85 /min Yeison Athy PA-C Work Phone: [facility] 07-18-2023 17:55-0400 Respiratory rate 18 /min Yeison Athy PA-C Work Phone: [facility] 07-18-2023 17:55-0400 SaO2% (BldA) [Mass fraction] 97 % Yeison Athy PA-C Work Phone: [facility] 07-18-2023 17:55-0400 Systolic blood pressure 138 mm[Hg] Yeison Athy PA-C Work Phone: [facility] 07-11-2023 12:14-0400 Body temperature 97.5 [degF] Moriah Praisler-[address] DESIGN DRAFTSPERSON.CERTIFIED WELLNESS PROGRAM MANAGER Work Phone: [facility] 07-11-2023 12:14-0400 Body weight 75.66 kg Moriah Praisler-[address] DESIGN DRAFTSPERSON.CERTIFIED WELLNESS PROGRAM MANAGER Work Phone: [facility] 07-11-2023 12:14-0400 Diastolic blood pressure 92 mm[Hg] Moriah Praisler-[address] DESIGN DRAFTSPERSON.CERTIFIED WELLNESS PROGRAM MANAGER Work Phone: [facility] 07-11-2023 12:14-0400 Heart rate 69 /min Moriah Praisler-[address] DESIGN DRAFTSPERSON.CERTIFIED WELLNESS PROGRAM MANAGER Work Phone: [facility] 07-11-2023 12:14-0400 Respiratory rate 21 /min Moriah Praisler-[address] DESIGN DRAFTSPERSON.CERTIFIED WELLNESS PROGRAM MANAGER Work Phone: [facility] 07-11-2023 12:14-0400 SaO2% (BldA) [Mass fraction] 98 % Moriah Praisler-[address] DESIGN DRAFTSPERSON.CERTIFIED WELLNESS PROGRAM MANAGER Work Phone: [facility] 07-11-2023 12:14-0400 Systolic blood pressure 148 mm[Hg] Moriah Praisler-[address] DESIGN DRAFTSPERSON.CERTIFIED WELLNESS PROGRAM MANAGER Work Phone: [facility] 05-29-2023 13:01-0400 Body weight 76.[address] DESIGN DRAFTSPERSON.CERTIFIED WELLNESS PROGRAM MANAGER Work Phone: [facility] 05-29-2023 13:01-0400 Diastolic blood pressure 104 mm[Hg] Jennifer Haagen RO[address] DESIGN DRAFTSPERSON.CERTIFIED WELLNESS PROGRAM MANAGER Work Phone: [facility] 05-29-2023 13:01-0400 Heart rate 74 /min Jennifer Haagen [address] DESIGN DRAFTSPERSON.CERTIFIED WELLNESS PROGRAM MANAGER Work Phone: [facility] 05-29-2023 13:01-0400 Respiratory rate 16 /min Jennifer Whit[address] DESIGN DRAFTSPERSON.CERTIFIED WELLNESS PROGRAM MANAGER Work Phone: [facility] 05-29-2023 13:01-0400 Systolic blood pressure 160 mm[Hg] Jennifer Whitfield [address] DESIGN DRAFTSPERSON.CERTIFIED WELLNESS PROGRAM MANAGER Work Phone: [facility] 05-18-2023 09:04-0400 Body weight 77.[address] DESIGN DRAFTSPERSON.CERTIFIED WELLNESS PROGRAM MANAGER Work Phone: [facility] 05-18-2023 09:04-0400 Diastolic blood pressure 92 mm[Hg] Indigo Candelario [address] DESIGN DRAFTSPERSON.CERTIFIED WELLNESS PROGRAM MANAGER Work Phone: [facility] 05-18-2023 09:04-0400 Systolic blood pressure 158 mm[Hg] Indigo Candelario [address] DESIGN DRAFTSPERSON.CERTIFIED WELLNESS PROGRAM MANAGER Work Phone: [facility] 03-20-2023 13:24-0400 Body temperature 97.81 [degF] Allie Santiago ROAD DESIGN DRAFTSPERSON.CERTIFIED WELLNESS PROGRAM MANAGER Work Phone: [facility] 03-20-2023 13:24-0400 Body weight 78.[address] DESIGN DRAFTSPERSON.CERTIFIED WELLNESS PROGRAM MANAGER Work Phone: [facility] 03-20-2023 13:24-0400 Diastolic blood pressure 86 mm[Hg] Allie Santiago RO[address] DESIGN DRAFTSPERSON.CERTIFIED WELLNESS PROGRAM MANAGER Work Phone: [facility] 03-20-2023 13:24-0400 Heart rate 71 /min Allie Santiago [address] DESIGN DRAFTSPERSON.CERTIFIED WELLNESS PROGRAM MANAGER Work Phone: [facility] 03-20-2023 13:24-0400 Respiratory rate 18 /min Allie Santiago [address] DESIGN DRAFTSPERSON.CERTIFIED WELLNESS PROGRAM MANAGER Work Phone: [facility] 03-20-2023 13:24-0400 SaO2% (BldA) [Mass fraction] 99 % Allie Santiago RO[address] DESIGN DRAFTSPERSON.CERTIFIED WELLNESS PROGRAM MANAGER Work Phone: [facility] 03-20-2023 13:24-0400 Systolic blood pressure 138 mm[Hg] Allie Jack RO[address] DESIGN DRAFTSPERSON.CERTIFIED WELLNESS PROGRAM MANAGER Work Phone: [facility] 03-20-2023 11:21-0400 Body weight 78.[address] DESIGN DRAFTSPERSON.CERTIFIED WELLNESS PROGRAM MANAGER Work Phone: [facility] 03-20-2023 11:21-0400 Diastolic blood pressure 78 mm[Hg] Nohelia [address] DESIGN DRAFTSPERSON.CERTIFIED WELLNESS PROGRAM MANAGER Work Phone: [facility] 03-20-2023 11:21-0400 Systolic blood pressure 122 mm[Hg] Nohelia Brandon [address] DESIGN DRAFTSPERSON.CERTIFIED WELLNESS PROGRAM MANAGER Work Phone: [facility] 03-15-2023 10:10-0400 Body temperature 97.39 [degF] [facility] DRAFTSPERSON.CERTIFIED WELLNESS PROGRAM MANAGER Work Phone: [facility] 03-15-2023 10:10-0400 Body weight 77.75 [facility] DRAFTSPERSON.CERTIFIED WELLNESS PROGRAM MANAGER Work Phone: [facility] 03-15-2023 10:10-0400 Diastolic blood pressure 100 mm[Hg] Yohannes Pendlebury [address] DESIGN DRAFTSPERSON.CERTIFIED WELLNESS PROGRAM MANAGER Work Phone: [facility] 03-15-2023 10:10-0400 Heart rate 80 /min Yohannes Pend[address] DESIGN DRAFTSPERSON.CERTIFIED WELLNESS PROGRAM MANAGER Work Phone: [facility] 03-15-2023 10:10-0400 Respiratory rate 21 /min Yohannes P[address] DESIGN DRAFTSPERSON.CERTIFIED WELLNESS PROGRAM MANAGER Work Phone: [facility] 03-15-2023 10:10-0400 SaO2% (BldA) [Mass fraction] 98 % Yohannes Michael APRN.CERTIFIED WELLNESS PROGRAM MANAGER Work Phone: [facility] 03-15-2023 10:10-0400 Systolic blood pressure 130 mm[Hg] Yohannes Michael APRN.CERTIFIED WELLNESS PROGRAM MANAGER Work Phone: [facility] 03-12-2023 18:14-0400 Body weight 78.02 kg Guillermo Lizama MD Work Phone: [facility] 03-12-2023 18:14-0400 Diastolic blood pressure 92 mm[Hg] Guillermo Lizama MD Work Phone: [facility] 03-12-2023 18:14-0400 Heart rate 79 /min Guillermo Lizama MD Work Phone: [facility] 03-12-2023 18:14-0400 SaO2% (BldA) [Mass fraction] 97 % Guillermo Lizama MD Work Phone: [facility] 03-12-2023 18:14-0400 Systolic blood pressure 152 mm[Hg] Guillermo Lizama MD Work Phone: [facility] 03-01-2023 09:43-0400 Body temperature 97.5 [degF] Krislyn Aberegg PA Work Phone: [facility] 03-01-2023 09:43-0400 Body weight 79.74 kg Krislyn Aberegg PA Work Phone: [facility] 03-01-2023 09:43-0400 Diastolic blood pressure 100 mm[Hg] Krislyn Aberegg PA Work Phone: [facility] 03-01-2023 09:43-0400 Heart rate 70 /min Krislyn Aberegg PA Work Phone: [facility] 03-01-2023 09:43-0400 Respiratory rate 18 /min Krislyn Aberegg PA Work Phone: [facility] 03-01-2023 09:43-0400 SaO2% (BldA) [Mass fraction] 99 % Krislyn Aberegg PA Work Phone: [facility] 03-01-2023 09:43-0400 Systolic blood pressure 162 mm[Hg] Jessica Fernandezantoni PA Work Phone: [facility] 02-08-2023 08:41-0400 Body weight 78.02 kg Indigo Candelario APRN.CERTIFIED WELLNESS PROGRAM MANAGER Work Phone: [facility] 02-08-2023 08:41-0400 Diastolic blood pressure 72 mm[Hg] Indigo Candelario APRN.CERTIFIED WELLNESS PROGRAM MANAGER Work Phone: [facility] 02-08-2023 08:41-0400 Systolic blood pressure 128 mm[Hg] Indigo Candelario APRN.CERTIFIED WELLNESS PROGRAM MANAGER Work Phone: [facility] 01-24-2023 09:49-0400 Body temperature 97.9 [degF] Shawn Uribe MD Work Phone: [facility] 01-24-2023 09:49-0400 Body weight 79.38 kg Shawn Uribe MD Work Phone: [facility] 01-24-2023 09:49-0400 Diastolic blood pressure 84 mm[Hg] Shawn Uribe MD Work Phone: [facility] 01-24-2023 09:49-0400 Heart rate 84 /min Shawn Uribe MD Work Phone: [facility] 01-24-2023 09:49-0400 Respiratory rate 16 /min Shawn Uribe MD Work Phone: [facility] 01-24-2023 09:49-0400 Systolic blood pressure 130 mm[Hg] Shawn Uribe MD Work Phone: [facility] 01-09-2023 09:32-0400 Body weight 78.93 kg Indigo Candelario APRN.CERTIFIED WELLNESS PROGRAM MANAGER Work Phone: [facility] 01-09-2023 09:32-0400 Diastolic blood pressure 76 mm[Hg] Indigo Candelario APRN.CERTIFIED WELLNESS PROGRAM MANAGER Work Phone: [facility] 01-09-2023 09:32-0400 Systolic blood pressure 120 mm[Hg] Indigo Candelario APRN.CNP Work Phone: [facility] 01-02-2023 09:00-0400 Body weight 79.7 kg Janay Heard MD Work Phone: [facility] 01-02-2023 09:00-0400 Diastolic blood pressure 70 mm[Hg] Janay Heard MD Work Phone: [facility] 01-02-2023 09:00-0400 Systolic blood pressure 116 mm[Hg] Janay Heard MD Work Phone: [facility] 12-14-2022 15:40-0400 Body temperature 98.2 [degF] Nohemi Kulkarni MD Work Phone: [facility] 12-14-2022 15:40-0400 Body weight 78.83 kg Nohemi Kulkarni MD Work Phone: [facility] 12-14-2022 15:40-0400 Diastolic blood pressure 80 mm[Hg] Nohemi Kulkarni MD Work Phone: [facility] 12-14-2022 15:40-0400 Heart rate 80 /min Nohemi Kulkarni MD Work Phone: [facility] 12-14-2022 15:40-0400 SaO2% (BldA) [Mass fraction] 100 % Nohemi Kulkarni MD Work Phone: [facility] 12-14-2022 15:40-0400 Systolic blood pressure 128 mm[Hg] Nohemi Kulkarni MD Work Phone: [facility] 09-14-2022 15:47-0500 Body temperature 97.9 [degF] Johnna Martinez PA-C Work Phone: [facility] 09-14-2022 15:47-0500 Body weight 79.83 kg Johnna DIAZ-Leni Work Phone: [facility] 09-14-2022 15:47-0500 Diastolic blood pressure 82 mm[Hg] Johnna Denbow PA-C Work Phone: [facility] 09-14-2022 15:47-0500 Heart rate 93 /min Johnna Denbow PA-C Work Phone: [facility] 09-14-2022 15:47-0500 Respiratory rate 18 /min Johnna Denbow PA-C Work Phone: [facility] 09-14-2022 15:47-0500 SaO2% (BldA) [Mass fraction] 97 % Johnna Denbow PA-C Work Phone: [facility] 09-14-2022 15:47-0500 Systolic blood pressure 134 mm[Hg] Johnna Denbow PA-C Work Phone: [facility] 09-07-2022 08:55-0500 Body height 160 cm Nohemi Kulkarni MD Work Phone: [facility] 09-07-2022 08:55-0500 Body temperature 97.3 [degF] Nohemi Kulkarni MD Work Phone: [facility] 09-07-2022 08:55-0500 Body weight 78.93 kg Nohemi Kulkarni MD Work Phone: [facility] 09-07-2022 08:55-0500 Diastolic blood pressure 88 mm[Hg] Nohemi Kulkarni MD Work Phone: [facility] 09-07-2022 08:55-0500 Heart rate 109 /min Nohemi Kulkarni MD Work Phone: [facility] 09-07-2022 08:55-0500 SaO2% (BldA) [Mass fraction] 97 % Nohemi Kulkarni MD Work Phone: [facility] 09-07-2022 08:55-0500 Systolic blood pressure 130 mm[Hg] Nohemi Kulkarni MD Work Phone: [facility] 08-15-2022 16:21-0500 Body weight 79.38 kg NA Cook PA-C Work Phone: [facility] 08-15-2022 16:21-0500 Diastolic blood pressure 98 mm[Hg] NA Cook PA-C Work Phone: [facility] 08-15-2022 16:21-0500 Heart rate 71 /min NA Cook PA-C Work Phone: [facility] 08-15-2022 16:21-0500 Respiratory rate 16 /min NA Cook PA-C Work Phone: [facility] 08-15-2022 16:21-0500 SaO2% (BldA) [Mass fraction] 98 % NA Cook PA-C Work Phone: [facility] 08-15-2022 16:21-0500 Systolic blood pressure 138 mm[Hg] NA Cook PA-C Work Phone: [facility] 08-11-2022 14:35-0500 Body height 160 cm Dee Dee Nava MD Work Phone: [facility] 08-11-2022 14:35-0500 Body temperature 97.81 [degF] Dee Dee Nava MD Work Phone: [facility] 08-11-2022 14:35-0500 Body weight 79.2 kg Dee Dee Nava MD Work Phone: [facility] 08-11-2022 14:35-0500 Diastolic blood pressure 93 mm[Hg] Dee Dee Nava MD Work Phone: [facility] 08-11-2022 14:35-0500 Heart rate 65 /min Dee Dee Nava MD Work Phone: [facility] 08-11-2022 14:35-0500 SaO2% (BldA) [Mass fraction] 97 % Dee Dee Nava MD Work Phone: [facility] 08-11-2022 14:35-0500 Systolic blood pressure 151 mm[Hg] Dee Dee Nava MD Work Phone: [facility] 08-09-2022 09:44-0500 Body weight 79.02 kg Karina Gold APRN.CNM Work Phone: [facility] 08-09-2022 09:44-0500 Diastolic blood pressure 76 mm[Hg] Karina Gold APRN.CNM Work Phone: [facility] 08-09-2022 09:44-0500 Systolic blood pressure 128 mm[Hg] Karina Gold APRN.CNM Work Phone: [facility] 05-30-2022 15:50-0400 Body height 157.5 cm Nohemi Kulkarni MD Work Phone: [facility] 05-30-2022 15:50-0400 Body temperature 98.1 [degF] Nohemi Kulkarni MD Work Phone: [facility] 05-30-2022 15:50-0400 Body weight 78.47 kg Nohemi Kulkarni MD Work Phone: [facility] 05-30-2022 15:50-0400 Diastolic blood pressure 92 mm[Hg] Nohemi Kulkarni MD Work Phone: [facility] 05-30-2022 15:50-0400 Heart rate 79 /min Nohemi Kulkarni MD Work Phone: [facility] 05-30-2022 15:50-0400 SaO2% (BldA) [Mass fraction] 97 % Nohemi Kulkarni MD Work Phone: [facility] 05-30-2022 15:50-0400 Systolic blood pressure 146 mm[Hg] Nohemi Kulkarni MD Work Phone: [facility] 05-19-2022 09:57-0400 Body weight 77.11 kg Indigo Candelario APRN.CERTIFIED WELLNESS PROGRAM MANAGER Work Phone: [facility] 05-19-2022 09:57-0400 Diastolic blood pressure 90 mm[Hg] Indigo Candelario APRN.CERTIFIED WELLNESS PROGRAM MANAGER Work Phone: [facility] 05-19-2022 09:57-0400 Systolic blood pressure 142 mm[Hg] Indigo Candelario APRN.CERTIFIED WELLNESS PROGRAM MANAGER Work Phone: [facility] 05-09-2022 11:06-0400 Body temperature 97.81 [degF] Betty Royce RO[address] DESIGN DRAFTSPERSON.CERTIFIED WELLNESS PROGRAM MANAGER Work Phone: [facility] 05-09-2022 11:06-0400 Body weight 78.[address] DESIGN DRAFTSPERSON.CERTIFIED WELLNESS PROGRAM MANAGER Work Phone: [facility] 05-09-2022 11:06-0400 Diastolic blood pressure 82 mm[Hg] Betty Royce [address] DESIGN DRAFTSPERSON.CERTIFIED WELLNESS PROGRAM MANAGER Work Phone: [facility] 05-09-2022 11:06-0400 Heart rate 67 /min Betty Royce [address] DESIGN DRAFTSPERSON.CERTIFIED WELLNESS PROGRAM MANAGER Work Phone: [facility] 05-09-2022 11:06-0400 Respiratory rate 16 /min Betty Royce [address] DESIGN DRAFTSPERSON.CERTIFIED WELLNESS PROGRAM MANAGER Work Phone: [facility] 05-09-2022 11:06-0400 SaO2% (BldA) [Mass fraction] 96 % Betty Royce [address] DESIGN DRAFTSPERSON.CERTIFIED WELLNESS PROGRAM MANAGER Work Phone: [facility] 05-09-2022 11:06-0400 Systolic blood pressure 136 mm[Hg] Betty Royce [address] DESIGN DRAFTSPERSON.CERTIFIED WELLNESS PROGRAM MANAGER Work Phone: [facility] 05-07-2022 11:09-0400 Body temperature 97.81 [degF] Betty Royce [address] DESIGN DRAFTSPERSON.CERTIFIED WELLNESS PROGRAM MANAGER Work Phone: [facility] 05-07-2022 11:09-0400 Body weight 78.[address] DESIGN DRAFTSPERSON.CERTIFIED WELLNESS PROGRAM MANAGER Work Phone: [facility] 05-07-2022 11:09-0400 Diastolic blood pressure 102 mm[Hg] Betty Royce [address] DESIGN DRAFTSPERSON.CERTIFIED WELLNESS PROGRAM MANAGER Work Phone: [facility] 05-07-2022 11:09-0400 Heart rate 72 /min Betty Royce [address] DESIGN DRAFTSPERSON.CERTIFIED WELLNESS PROGRAM MANAGER Work Phone: [facility] 05-07-2022 11:09-0400 Respiratory rate 16 /min Betty Royce [address] DESIGN DRAFTSPERSON.CERTIFIED WELLNESS PROGRAM MANAGER Work Phone: [facility] 05-07-2022 11:09-0400 SaO2% (BldA) [Mass fraction] 98 % Betty Crane APRN.CERTIFIED WELLNESS PROGRAM MANAGER Work Phone: [facility] 05-07-2022 11:09-0400 Systolic blood pressure 162 mm[Hg] Betty Crane APRN.CERTIFIED WELLNESS PROGRAM MANAGER Work Phone: [facility] 04-25-2022 10:40-0400 Diastolic blood pressure 88 mm[Hg] Nohemi Kulkarni MD Work Phone: [facility] 04-25-2022 10:40-0400 Heart rate 72 /min Nohemi Kulkarni MD Work Phone: [facility] 04-25-2022 10:40-0400 Respiratory rate 16 /min Nohemi Kulkarni MD Work Phone: [facility] 04-25-2022 10:40-0400 SaO2% (BldA) [Mass fraction] 95 % Nohemi Kulkarni MD Work Phone: [facility] 04-25-2022 10:40-0400 Systolic blood pressure 138 mm[Hg] Nohemi Kulkarni MD Work Phone: [facility] 04-25-2022 08:32-0400 Body temperature 97.3 [degF] Nohemi Kulkarni MD Work Phone: [facility] 04-25-2022 08:32-0400 Body weight 77.4 kg Nohemi Kulkarni MD Work Phone: [facility] 04-14-2022 09:08-0400 Body weight 77.38 kg Indigo Candelario APRN.CERTIFIED WELLNESS PROGRAM MANAGER Work Phone: [facility] 04-14-2022 09:08-0400 Diastolic blood pressure 82 mm[Hg] Indigo Candelario APRN.CERTIFIED WELLNESS PROGRAM MANAGER Work Phone: [facility] 04-14-2022 09:08-0400 Systolic blood pressure 134 mm[Hg] Indigo Candelario APRN.CERTIFIED WELLNESS PROGRAM MANAGER Work Phone: [facility] 04-10-2022 10:10-0400 Heart rate 60 /min [facility] 03-20-2022 14:21-0400 Body height 158 cm NA Cook PA-C Work Phone: [facility] 03-20-2022 14:21-0400 Body weight 78.47 kg NA Cook PA-C Work Phone: [facility] 03-20-2022 14:21-0400 Diastolic blood pressure 78 mm[Hg] NA Cook PA-C Work Phone: [facility] 03-20-2022 14:21-0400 Heart rate 68 /min NA Cook PA-C Work Phone: [facility] 03-20-2022 14:21-0400 Respiratory rate 18 /min NA Cook PA-C Work Phone: [facility] 03-20-2022 14:21-0400 SaO2% (BldA) [Mass fraction] 98 % NA Cook PA-C Work Phone: [facility] 03-20-2022 14:21-0400 Systolic blood pressure 118 mm[Hg] NA Cook PA-C Work Phone: [facility] 03-06-2022 14:07-0400 Body temperature 97 [degF] Shawn Uribe MD Work Phone: [facility] 03-06-2022 14:07-0400 Body weight 77.47 kg Shawn Uribe MD Work Phone: [facility] 03-06-2022 14:07-0400 Diastolic blood pressure 98 mm[Hg] Shawn Uribe MD Work Phone: [facility] 03-06-2022 14:07-0400 Heart rate 66 /min Shawn Uribe MD Work Phone: [facility] 03-06-2022 14:07-0400 Respiratory rate 21 /min Shawn Uribe MD Work Phone: [facility] 03-06-2022 14:07-0400 SaO2% (BldA) [Mass fraction] 96 % Shawn Uribe MD Work Phone: [facility] 03-06-2022 14:07-0400 Systolic blood pressure 140 mm[Hg] Shawn Uribe MD Work Phone: [facility] 03-01-2022 10:32-0400 Body temperature 97.39 [degF] Yohannes Fernanda RO[address] DESIGN DRAFTSPERSON.CERTIFIED WELLNESS PROGRAM MANAGER Work Phone: [facility] 03-01-2022 10:32-0400 Body weight 79.[address] DESIGN DRAFTSPERSON.CERTIFIED WELLNESS PROGRAM MANAGER Work Phone: [facility] 03-01-2022 10:32-0400 Diastolic blood pressure 84 mm[Hg] Yohannes Pendlesly [address] DESIGN DRAFTSPERSON.CERTIFIED WELLNESS PROGRAM MANAGER Work Phone: [facility] 03-01-2022 10:32-0400 Heart rate 63 /min Yohannes Michael [address] DESIGN DRAFTSPERSON.CERTIFIED WELLNESS PROGRAM MANAGER Work Phone: [facility] 03-01-2022 10:32-0400 Respiratory rate 18 /min Yohannesford Michael [address] DESIGN DRAFTSPERSON.CERTIFIED WELLNESS PROGRAM MANAGER Work Phone: [facility] 03-01-2022 10:32-0400 SaO2% (BldA) [Mass fraction] 98 % Yohannes Michael [address] DESIGN DRAFTSPERSON.CERTIFIED WELLNESS PROGRAM MANAGER Work Phone: [facility] 03-01-2022 10:32-0400 Systolic blood pressure 142 mm[Hg] Yohannes Michael [address] DESIGN DRAFTSPERSON.CERTIFIED WELLNESS PROGRAM MANAGER Work Phone: [facility] 02-08-2022 11:31-0400 Body height 157.5 cm Pacc 1 Work Phone: [facility] 02-08-2022 11:31-0400 Body temperature 97.3 [degF] Pacc 1 Work Phone: [facility] 02-08-2022 11:31-0400 Body weight 78.47 kg Pacc 1 Work Phone: [facility] 02-08-2022 11:31-0400 Diastolic blood pressure 90 mm[Hg] Pacc 1 Work Phone: [facility] 02-08-2022 11:31-0400 Heart rate 70 /min Pacc 1 Work Phone: [facility] 02-08-2022 11:31-0400 Respiratory rate 14 /min Pacc 1 Work Phone: [facility] 02-08-2022 11:31-0400 SaO2% (BldA) [Mass fraction] 98 % Pacc 1 Work Phone: [facility] 02-08-2022 11:31-0400 Systolic blood pressure 138 mm[Hg] Pacc 1 Work Phone: [facility] 02-07-2022 07:01-0400 Body height 157.[address] DESIGN DRAFTSPERSON.CERTIFIED WELLNESS PROGRAM MANAGER Work Phone: [facility] 02-07-2022 07:01-0400 Body weight 77.[address] DESIGN DRAFTSPERSON.CERTIFIED WELLNESS PROGRAM MANAGER Work Phone: [facility] 02-07-2022 07:01-0400 Diastolic blood pressure 60 mm[Hg] Nohelia Brandon [address] DESIGN DRAFTSPERSON.CERTIFIED WELLNESS PROGRAM MANAGER Work Phone: [facility] 02-07-2022 07:01-0400 Systolic blood pressure 118 mm[Hg] Nohelia Brandon [address] DESIGN DRAFTSPERSON.CERTIFIED WELLNESS PROGRAM MANAGER Work Phone: [facility] 01-27-2022 09:57-0400 Body weight 77.56 kg NA Cook PA-C Work Phone: [facility] 01-27-2022 09:57-0400 Diastolic blood pressure 80 mm[Hg] NA Cook PA-C Work Phone: [facility] 01-27-2022 09:57-0400 Heart rate 80 /min NA Cook PA-C Work Phone: [facility] 01-27-2022 09:57-0400 Respiratory rate 16 /min NA Cook PA-C Work Phone: [facility] 01-27-2022 09:57-0400 Systolic blood pressure 126 mm[Hg] NA Cook PA-C Work Phone: [facility] 01-23-2022 16:07-0400 Body temperature 97.9 [degF] Betty Crane RO[address] DESIGN DRAFTSPERSON.CERTIFIED WELLNESS PROGRAM MANAGER Work Phone: [facility] 01-23-2022 16:07-0400 Body weight 77.[address] DESIGN DRAFTSPERSON.CERTIFIED WELLNESS PROGRAM MANAGER Work Phone: [facility] 01-23-2022 16:07-0400 Diastolic blood pressure 80 mm[Hg] Betty Crane RO[address] DESIGN DRAFTSPERSON.CERTIFIED WELLNESS PROGRAM MANAGER Work Phone: [facility] 01-23-2022 16:07-0400 Heart rate 78 /min Betty Crane [address] DESIGN DRAFTSPERSON.CERTIFIED WELLNESS PROGRAM MANAGER Work Phone: [facility] 01-23-2022 16:07-0400 Respiratory rate 16 /min Betty Crane [address] DESIGN DRAFTSPERSON.CERTIFIED WELLNESS PROGRAM MANAGER Work Phone: [facility] 01-23-2022 16:07-0400 SaO2% (BldA) [Mass fraction] 98 % Betty Crane RO[address] DESIGN DRAFTSPERSON.CERTIFIED WELLNESS PROGRAM MANAGER Work Phone: [facility] 01-23-2022 16:07-0400 Systolic blood pressure 124 mm[Hg] Betty Crane RO[address] DESIGN DRAFTSPERSON.CERTIFIED WELLNESS PROGRAM MANAGER Work Phone: [facility] Encounters Encounter Date Encounter Type Care Provider Facility Start: 12-07-2023 End: 12-07-2023 ambulatory M NICOLETTE COOK Facility:[facility] Start: 12-07-2023 End: 12-07-2023 Patient encounter procedure Moriah Hutchison ROAD DESIGN DRAFTSPERSON.CERTIFIED WELLNESS PROGRAM MANAGER Work Phone: [facility] Procedures Date Procedure Procedure Detail Performing Clinician Start: 11-28-2023 Urnls dip stick/tablet rgnt auto w/o microscopy Karina Dooley RO[address] DESIGN DRAFTSPERSON.CERTIFIED WELLNESS PROGRAM MANAGER Work Phone: Start: 07-26-2023 Urnls dip stick/tablet rgnt auto w/o microscopy Allie Santiago RO[address] DESIGN DRAFTSPERSON.CERTIFIED WELLNESS PROGRAM MANAGER Work Phone: Start: 07-11-2023 Urnls dip stick/tablet rgnt auto w/o microscopy Moriah Hutchison RO[address] DESIGN DRAFTSPERSON.CERTIFIED WELLNESS PROGRAM MANAGER Work Phone: Start: 04-17-2023 Mri brain brain stem w/o contrast material Guillermo Lizama MD Work Phone: Start: 04-04-2023 Us breast uni real time with image limited Nohelia Taylor RO[address] DESIGN DRAFTSPERSON.CERTIFIED WELLNESS PROGRAM MANAGER Work Phone: Start: 04-04-[address] DESIGN DRAFTSPERSON.CERTIFIED WELLNESS PROGRAM MANAGER Work Phone: Start: 03-01-2023 STREP A MOLECULAR (POC) Moriah Painter-W ood RO[address] DESIGN DRAFTSPERSON.CERTIFIED WELLNESS PROGRAM MANAGER Work Phone: Start: 01-24-2023 STREP A MOLECULAR (POC) Yeison Ignacio PA-C Work Phone: Start: 12-11-2022 RONDA [address] W CHRIS [address] DESIGN DRAFTSPERSON.[facility] Work Phone: Start: 12-11-2022 Mammography Mammography Coordinator Start: 05-19-2022 Urnls dip stick/tablet rgnt auto w/o microscopy Indigo Candelario RO[address] DESIGN DRAFTSPERSON.CERTIFIED WELLNESS PROGRAM MANAGER Work Phone: Start: 05-07-2022 Urnls dip stick/tablet rgnt auto w/o microscopy Yeison Ignacio PA-C Work Phone: Start: 04-25-2022 Esophagogastroduodenoscopy transoral diagnostic Nohemi Kulkarni MD Work Phone: Start: 04-25-2022 Colonoscopy flx dx w/collj spec when pfrmd Nohemi Kulkarni MD Work Phone: Start: 04-25-2022 Colonoscopy Nohemi Kulkarni MD Work Phone: Start: 03-23-2022 Mri abdomen w/o & w/contrast material Jaguar Cook PA-C Work Phone: Start: 02-28-2022 Adult depression screening assessment Yohannes Michael RO[address] DESIGN DRAFTSPERSON.CERTIFIED WELLNESS PROGRAM MANAGER Work Phone: Start: 01-30-2022 Us abdominal real time w/image limited Jaguar Cook PA-C Work Phone: Start: 01-23-2022 Urnls dip stick/tablet rgnt auto w/o microscopy Betty Crane RO[address] DESIGN DRAFTSPERSON.CERTIFIED WELLNESS PROGRAM MANAGER Work Phone: Start: 05-25-2021 Mammography Nohemi Kulkarni MD Work Phone: Start: 04-22-2020 Lipid 1996 panel - Serum or Plasma Lloyd austin Whitfield [address] DESIGN DRAFTSPERSON.CERTIFIED WELLNESS PROGRAM MANAGER Work Phone: Start: 04-09-2019 Adult depression screening assessment Nohemi Kulkarni MD Work Phone: Plan of Treatment Date Care Activity Detail Author Start: 03-31-2033 Urine microalbumin profile DTa P,Tdap,Td Vaccine (2 - Td or Tdap) [facility] Start: 04-25-2032 Colonoscopy COLONOSCOPY [facility] Start: 04-25-2032 COLORECTAL CANCER SCREENING COLORECTAL CANCER SCREENING [facility] Start: 04-25-2032 Screening for malign ant neoplasm of colon [facility] Start: 02-07-2027 HPV TESTING HPV TESTING [facility] Start: 02-07-2027 PAP TESTING PAP TESTING [facility] Start: 02-07-2027 Screening for malign ant neoplasm of cervix [facility] Start: 10-26-2025 DIABETES SCREEN DIABETES SCREEN [facility] Start: 10-26-2025 Diabetes Screening Diabetes Screenin g [facility] Start: 04-22-2025 Lipid 1996 panel - S addi or Plasma Lipid Screening [facility] Start: 04-22-2025 Lipid panel Lipid Screening [facility] Start: 04-22-2025 LIPID SCREEN LIPID SCREEN [facility] Start: 10-08-2024 Annual PCP Team Cma Or Lpn abelardo Disease Visit Annual PCP Team Chronic Disease Visit [facility] Start: 06-25-2024 BP Controlled (<130/80) BP Controlle d (<130/80) [facility] Start: 05-29-2024 ANNUAL PCP TEAM CONTRACT PARALEGAL ABELARDO DISEASE VISIT ANNUAL PCP TEAM CHRONIC DISEASE VISIT [facility] Start: 04-04-2024 Mammography [facility] Start: 04-04-2024 Screening for malign ant neoplasm of breast Mammogram Screening [facility] Start: 03-12-2024 ANNUAL PCP TEAM CONTRACT PARALEGAL ABELARDO DISEASE VISIT ANNUAL PCP TEAM CHRONIC DISEASE VISIT [facility] Start: 03-05-2024 ANNUAL PCP TEAM CONTRACT PARALEGAL ABELARDO DISEASE VISIT ANNUAL PCP TEAM CHRONIC DISEASE VISIT [facility] Start: 02-09-2024 BP CONTROLLED (<130/80) BP CONTROLLE D (<130/80) [facility] Start: 01-10-2024 BP CONTROLLED (<130/80) BP CONTROLLE D (<130/80) [facility] Start: 01-03-2024 BP CONTROLLED (<130/80) BP CONTROLLE D (<130/80) [facility] Start: 12-12-2023 Mammography MAMMOGRAM [facility] Start: 11-06-2023 ANNUAL PCP TEAM CONTRACT PARALEGAL ABELARDO DISEASE VISIT ANNUAL PCP TEAM CHRONIC DISEASE VISIT [facility] Start: 10-17-2023 ANNUAL PCP TEAM CONTRACT PARALEGAL ABELARDO DISEASE VISIT ANNUAL PCP TEAM CHRONIC DISEASE VISIT [facility] Start: 10-01-2023 Depression Assessment Depression Ass essment [facility] Start: 09-21-2023 ANNUAL PCP TEAM CONTRACT PARALEGAL ABELARDO DISEASE VISIT ANNUAL PCP TEAM CHRONIC DISEASE VISIT [facility] Start: 08-15-2023 ANNUAL PCP TEAM CONTRACT PARALEGAL ABELARDO DISEASE VISIT ANNUAL PCP TEAM CHRONIC DISEASE VISIT [facility] Start: 08-15-2023 COVID-19 VACCINE (#1) COVID-19 VACCI NE (#1) [facility] Immunizations Immunization Date Immunization Notes Care Provider Koki castellano 07-26-2018 influenza virus vacc ine, unspecified formulation Jennifer Whitfield APRN.CERTIFIED WELLNESS PROGRAM MANAGER Work Phone: [facility] Payers Date Payer Category Payer Medicaid [id number] 2022 Medicaid [id number] 2013 Medicaid [employer] [id number] 2013-Present [phone] [address] [place] [address] Medicaid [id number] 2013 Medicaid [id number] Unknown Social History Date Type Detail Facility Start: [facility]07[facility] Start: 10-19-2021 End: 12-07-2023 Alcohol intake Current non-drinker of alcohol (finding) [facility] Start: 08-03-2020 End: 01-24-2022 History SDOH Alcohol Std Drinks 98 [facility] Start: 08-03-2020 End: 09-14-2022 History SDOH Alcohol Binge 1 [facility] Start: 04-20-2020 End: 09-14-2022 History SDOH Social Connections Phone 3 [facility] Start: 04-20-2020 End: 09-14-2022 History SDOH Social Connections Get Together 2 [facility] Start: 04-20-2020 End: 09-14-2022 History SDOH Social Connections Living 5 [facility] Start: 04-20-2020 End: 09-14-2022 History SDOH Stress 4 [facility] Start: 04-20-2020 Education 14 [facility] Start: 1975 Sex Assigned At Not on file C [facility] Start: 01-14-2022 End: 08-11-2022 Exposure to SARS-CoV-2 (event) Not sure [facility] Start: 05-07-2022 Tobacco use and exposure Smoke less tobacco non-user [facility] Work Phone: Start: 09-14-2022 End: 02-08-2023 [facility] Start: 09-14-2022 End: 02-08-2023 Social connection and isolation panel [facility] Attends [employer] Not on file C [facility] Do you belong to any clubs or organizations such as alevism groups, unions, fraternal or athletic groups, or school groups? No [facility] Are you now , , , , never or living with a partner? [facility] How often to you hav e a drink containing alcohol? Monthly or less [facility] How many standard dr inks containing alcohol do you have on a typical day? 3 or 4 [facility] How often do you hav e 6 or more drinks on 1 occasion? Never [facility] Do you feel stress - tense, restless, nervous, or anxious, or unable to sleep at night because your mind is troubled all the time - these days [OSQ] Rather much [facility] (I/We) worried wheth er (my/our) food would run out before (I/we) got money to buy more. Never true [facility] Do you feel stress - tense, restless, nervous, or anxious, or unable to sleep at night because your mind is troubled all the time - these days [OSQ] To some extent [facility] (I/We) worried wheth er (my/our) food would run out before (I/we) got money to buy more. DK or Refused [facility] Clinical Notes 05-29-2012 to 12-07-2023 Patient InstructionsMoriah Hutchison APRN.CNP - 12/07/2023 9:15 AM ESTTelephone Encounter - Alessia Anderson RN - 11/30/2023 3:12 PM Jessica Martinez PA - 11/28/2023 9:24 AM EST Note Date & Type Note Facility 12-07-2023 Note [facility] 12-07-2023 Note [facility] 12-07-2023 Instructions Moriah Hutchison APRN.CERTIFIED WELLNESS PROGRAM MANAGER - 12/07/2023 9:38 AM EST ASSESSMENT/PLAN: 1. Acute constipation - ICD9: 564.00, ICD10: K59.00 - XR ABDOMEN 1V SUPINE 3 x-rays of the abdomen are obtained. There is a non-obstructed bowel gas pattern. Moderate fecal material in the colon. There is no hepatomegaly or splenomegaly. No abnormal calcifications are visualized. There are no acute osseous abnormalities. IUD in the pelvis. IMPRESSION: NO ACUTE ABDOMINAL PATHOLOGY VISUALIZED Leathersmith: EVELINE Transcribe Date/Time: Dec 07 2023 9:29A Dictated by : ADRY CROWLEY MD - POLYETHYLENE GLYCOL [id number] GRAM/DOSE ORAL POWDER - Follow-up with your PCP in 3-5 days if symptoms have not improved or sooner if symptoms worsen - Discussed red flags and need for immediate medical evaluation if any occur. - Discussed supportive care treatment with fluids, rest and analgesia. - Discussed expected course of illness Moriah Hutchison APRN.CERTIFIED WELLNESS PROGRAM MANAGER Constipation What is constipation? Constipation is infrequent or uncomfortable bowel movements. Often the bowel movements are small, hard, or dry. How does it occur? You may have constipation because: You wait too long to have bowel movements. You do not drink enough fluids. You overuse laxatives. You do not eat enough fiber. You don't have enough physical activity. You are taking a medicine that has a side effect of constipation. Some medical conditions and diseases can also cause constipation. What are the symptoms? Symptoms may include having: small bowel movements hard, dry bowel movements uncomfortable or painful bowel movements that are hard to pass a longer time than usual between bowel movements. Normal frequencies for bowel movements may vary from 3 times a day to once every 3 days, depending on the person. What's important is whether there is a change in what has been normal for you. How is it treated? To ease your constipation: Do not delay bowel movements. Make sure that you go to the bathroom whenever you feel that you need to go. Drink more fluids. Increase the amount of fiber in your diet. Increase your physical activity. Ask your health care provider if any medicines you are taking may be causing constipation. Tell your health care provider if: You start having constipation after years of normal bowel movements. You have bouts of constipation alternating with bouts of diarrhea. You have pain during bowel movements or for some time afterward. Your bowel movements are tarry or have blood in them. You lose weight unexpectedly. How can I take care of myself? To help take care of yourself: Eat fresh vegetables and fruit every day. Exercise regularly. For example, walk for 20 minutes every day. Drink prune juice or eat stewed fruits at breakfast. Drink plenty of fluids. Increase the whole-grain fiber in your diet by eating cereals with 5 or more grams of fiber per bowl (for example, shredded wheat or bran flakes). Take a fiber product like Metamucil or Citrucel once or twice a day for several days if you are constipated. If the problem continues, check with your health care provider, but generally you can take 1 to 3 doses of these products a day regularly. Avoid using laxatives. Avoid using cathartics, which are products that will cause a fluid bowel movement. Cathartics irritate the lining of the intestines. documented in this encounter [facility] 12-07-2023 History of Presen t illness Narrative Subjective Constipation Associated symptoms include abdominal pain. Indigo Alves is a 48 year old female who presents with constipation for the past 10 days. States she took macrobid for a UTI and constipation started while on that medication. Denies fever or chills. She has had abdominal pain (cramping) when trying to have BM. Describes stool as hard round balls. She has tried taking a laxative, a stool softener and yesterday used a fleets enema. She has had a small amount of rectal bleeding-states she has had hemorrhoids in the past. Review of Systems Constitutional: Negative for chills and fever. Cardiovascular: Negative. Gastrointestinal: Positive for abdominal pain, blood in stool and constipation. Negative for diarrhea, melena, nausea and vomiting. Musculoskeletal: Negative for back pain. BP 134/90 Pulse 62 Temp 36.3 C (97.3 F) Resp 18 Wt 76 kg (167 lb 8.8 oz) LMP 05/17/2023 (Exact Date) SpO2 99% BMI 29.68 kg/m PAST MEDICAL HISTORY Diagnosis Date Anxiety [...] Maple Flavor, Metronidazole, and Seasonal Allergies MEDICATIONS ondansetron orally disintegrating (ZOFRAN ODT) 4 mg disintegrating tablet Take 1 tablet by mouth every 6 hours as needed for nausea/vomiting. Omeprazole Magnesium (PRILOSEC OTC) 20 mg tablet Take 1 tablet by mouth once daily. fluticasone (FLONASE) 50 mcg/actuation nasal spray Use 2 Sprays in each nostril once daily. Rinse mouth after use. lisinopril (ZESTRIL) 10 mg tablet Take 1 tablet by mouth once daily. albuterol HFA (PROVENTIL HFA, VENTOLIN HFA) 90 mcg/actuation inhaler Inhale 2 Puffs as instructed every 6 hours as needed for wheezing/shortness of breath. cyclobenzaprine (FLEXERIL) 10 mg tablet Take 1 tablet by mouth three times a day as needed for muscle spasm. metoprolol tartrate, short acting, (LOPRESSOR) 50 mg [...] Drug use: Yes Types: Marijuana Comment: yolanda Objective Physical Exam Vitals and nursing note reviewed. Constitutional: General: She is not in acute distress. Appearance: Normal appearance. She is not ill-appearing. Cardiovascular: Rate and Rhythm: Normal rate and regular rhythm. Heart sounds: Normal heart sounds. Pulmonary: Effort: Pulmonary effort is normal. No respiratory distress. Breath sounds: Normal breath sounds. No wheezing or rales. Abdominal: General: Bowel sounds are normal. There is no distension. Palpations: Abdomen is soft. There is no mass. Tenderness: There is no abdominal tenderness. There is no guarding. Skin: General: Skin is warm and dry. Findings: No erythema or rash. Neurological: Mental Status: She is alert. ASSESSMENT/PLAN: 1. Acute constipation - ICD9: 564.00, ICD10: K59.00 - XR ABDOMEN 1V SUPINE 3 x-rays of the abdomen are obtained. There is a non-obstructed bowel gas pattern. Moderate fecal material in the colon. There is no hepatomegaly or splenomegaly. No abnormal calcifications are visualized. There are no acute osseous abnormalities. IUD in the pelvis. IMPRESSION: NO ACUTE ABDOMINAL PATHOLOGY VISUALIZED Leathersmith: EVELINE Transcribe Date/Time: Dec 07 2023 9:29A Dictated by : ADRY CROWLEY MD - POLYETHYLENE GLYCOL [id number] GRAM/DOSE ORAL POWDER - Follow-up with your PCP in 3-5 days if symptoms have not improved or sooner if symptoms worsen - Discussed red flags and need for immediate medical evaluation if any occur. - Discussed supportive care treatment with fluids, rest and analgesia. - Discussed expected course of illness Moriah Hutchison APRN.CERTIFIED WELLNESS PROGRAM MANAGER documented in this encounter [facility] 11-30-2023 Miscellaneous Notes Patient calls and states that she was diagnosed with UTI in [facility] on 11/28/2023. Patient reports that today she had to leave work due to UTI symptoms. Patient asking if a letter can be written for work to say that she was diagnosed with UTI and that is the reason why she had to leave work? Please review and advise, Alessia Anderson RN documented in this encounter [facility] 11-28-2023 Note [facility] 11-28-2023 History of Presen t illness Narrative This note was created using Rising[employer]. Subjective Indigo Alves is a 48 year old female. HPI 48-year-old female presents for dysuria, vaginal discharge, vaginal irritation. Patient states about a week ago she thought she had a yeast infection. She had vaginal discharge and itching. She states that she did not get treated for this. She states that the discharge and itching improved, but this week she has some dysuria, urgency and frequency. No blood in the urine. She states that she has been told in the past on her urine dip she has had blood in the urine. She has been worked up for this and nothing has ever been found. She denies any abdominal pain, back pain, pelvic pain. No fevers. No vomiting. Patient would also like tested for STDs. No concern for . PAST MEDICAL HISTORY Diagnosis Date Anxiety generalized [...] Maple Flavor, Metronidazole, and Seasonal Allergies MEDICATIONS ondansetron orally disintegrating (ZOFRAN ODT) 4 mg disintegrating tablet Take 1 tablet by mouth every 6 hours as needed for nausea/vomiting. Omeprazole Magnesium (PRILOSEC OTC) 20 mg tablet Take 1 tablet by mouth once daily. fluticasone (FLONASE) 50 mcg/actuation nasal spray Use 2 Sprays in each nostril once daily. Rinse mouth after use. lisinopril (ZESTRIL) 10 mg tablet Take 1 tablet by mouth once daily. albuterol HFA (PROVENTIL HFA, VENTOLIN HFA) 90 mcg/actuation inhaler Inhale 2 Puffs as instructed every 6 hours as needed for wheezing/shortness of breath. cyclobenzaprine (FLEXERIL) 10 mg tablet Take 1 tablet by mouth three times a day as needed for muscle spasm. metoprolol tartrate, short acting, (LOPRESSOR) 50 mg [...] Take 1 capsule by mouth once daily. nitrofurantoin monohydrate and macrocrystal (MACROBID) 100 mg capsule Take 1 capsule by mouth two times a day for 5 days. FAMILY HISTORY Problem Relation Age of Onset [...] Drug use: Yes Types: Marijuana Comment: yolanda Review of Systems Constitutional: Negative for chills and fever. HENT: Negative for congestion, ear pain and sore throat. Respiratory: Negative for cough and shortness of breath. Cardiovascular: Negative for chest pain. Gastrointestinal: Negative for diarrhea and vomiting. Genitourinary: Positive for dysuria, frequency, hematuria, urgency and vaginal discharge. Negative for flank pain, vaginal bleeding and vaginal pain. Objective BP 157/114 Pulse 72 Temp 36.7 C (98.1 F) Wt 77.1 kg (170 lb) LMP 05/17/2023 (Exact Date) SpO2 95% BMI 30.11 kg/m Physical Exam Vitals and nursing note reviewed. Exam conducted with a patient financial representative present. Constitutional: General: She is not in acute distress. Appearance: Normal appearance. She is not toxic-appearing. Cardiovascular: Rate and Rhythm: Normal rate and regular rhythm. Pulmonary: Effort: Pulmonary effort is normal. Breath sounds: Normal breath sounds. Abdominal: General: Abdomen is flat. Palpations: Abdomen is soft. Tenderness: There is no abdominal tenderness. There is no right CVA tenderness or left CVA tenderness. Genitourinary: Labia: Right: No tenderness. Left: No tenderness. Vagina: Vaginal discharge present. No erythema or bleeding. Cervix: Discharge present. No erythema. Adnexa: Right adnexa normal and left adnexa normal. Comments: Patient has some white discharge from cervix and in vaginal vault. No erythema. No swelling. No tenderness. No CMT. Neurological: Mental Status: She is alert. Assessment and Plan ASSESSMENT/PLAN: 1. Dysuria - ICD9: 788.1, ICD10: R30.0 (primary diagnosis) acute - UA positive for gayle esterase, hematuria, and proteinuria - Send urine for culture - Begin treatment with Macrobid 100 mg BID for 5 days - Patient education for prevention given - UA DIP, URINE (POC) - URINE CULTURE 2. Vaginal discharge - ICD9: 623.5, ICD10: N89.8 - GONORRHEA/CHLAMYDIA NAAT - TFIFANY/TRICHOMONAS NAAT - BACTERIAL VAGINOSIS NAAT -Please treat based on results. 3. Hypertension, essential - ICD9: 401.9, ICD10: I10 -Patient states she has not had her blood pressure medication yesterday or today. Will take her blood pressure medication when she gets home. She has no chest pain, dizziness, lightheadedness or headache. - Recommend home blood pressure monitoring, to bring results to next visit - Recommend regular aerobic exercise Diagnosis and treatment plan were discussed and questions were answered to the patient's satisfaction. Pt acknowledged understanding of concepts and follow up plan. Specific signs and symptoms that would indicate the need for higher level of care were discussed in detail warranting prompt ER evaluation. JOE Cortes documented in this encounter [facility] 11-22-2023 Miscellaneous Notes The following approved medication requests have been transmitted electronically. Requested Prescriptions Signed Prescriptions Disp Refills ondansetron orally disintegrating (ZOFRAN ODT) 4 mg disintegrating tablet 10 tablet 1 Sig: Take 1 tablet by mouth every 6 hours as needed for nausea/vomiting. Authorizing Provider: Jaguar COOK PA-C Patient reports she is resolving a Flu B infection. Reports her nausea is still lingering. Asking if Maikol would send in script for Zofran to [facility]? Has taken this medication before with effectiveness. Script pended. Patient has Physical with Maikol Cook on 11/26 as well. Please call patient once script has been sent, or for any updates. [phone]. documented in this encounter [facility] 11-20-2023 Miscellaneous Notes Letter completed and sent in MyChart as requested. Ok for letter. Patient called in asking for a letter for [employer] stating that she is under this office's care for left shoulder pain, has difficulty doing most activities and has been receiving cortisone injections. Per patient we can put letter in MyChart. Ok for letter? documented in this encounter [facility] 11-05-2023 Note [facility] 10-25-2023 Note [facility] 10-08-2023 Note [facility] 10-03-2023 Note [facility] 09-07-2023 Miscellaneous Notes Patient was last need in office 05/18/23 by AG. Karla Verde RN documented in this encounter [facility] 08-30-2023 Miscellaneous Notes Patient has been identified [...] patient. Larisa Sena documented in this encounter [facility] 08-20-2023 Note [facility] 08-20-2023 History of Presen t illness Narrative Jonah Ibrahim MD Department of Orthopaedics Orthopaedics [address] [facility] [address] Dept: [phone] Dept August 20, 2023 CHIEF COMPLAINT: New [...] No radiographic evidence of acute osseous abnormality Leathersmith: EVELINE Transcribe Date/Time: Jul 11 2023 1:17P [...] physician via US mail. Yeison Ignacio [address] [facility] [address] M Nicolette Cook PA-C [address] [facility] [address] Jonah Ibrahim MD documented in this encounter [facility] 08-05-2023 Note [facility] 07-27-2023 Miscellaneous Notes Patient returned call and went over results, notes from express care provider with understanding. Left VM instructing patient to return call to receive results. Elzbieta Recio MA Urine culture showed no infection. Please follow-up with your primary care provider or urology to evaluate blood in the urine. documented in this encounter [facility] 07-26-2023 Note [facility] 07-26-2023 History of Presen t illness Narrative This note was created using [employer]. Subjective Indigo Alves is a 47 year [...] Yeison Ignacio PA-C documented in this encounter [facility] 07-18-2023 Note [facility] 07-18-2023 History of Presen t illness Narrative This note was created using [employer]. Subjective Indigo Alves is a 47 year [...] Yeison Ignacio PA-C documented in this encounter [facility] 07-13-2023 Miscellaneous Notes Patient identified by name and date of . I called and discussed urine culture results with patient. She denies current UTI symptoms. Moriah Hutchison APRN.CNP documented in this encounter [facility] 07-11-2023 Note [facility] 07-11-2023 Note [facility] 07-11-2023 Instructions Moriah Hutchison APRN.CNP - 07/11/2023 1:39 PM EDT ASSESSMENT/PLAN: 1. Acute pain of left shoulder - ICD9: 719.41, ICD10: M25.512 (primary diagnosis) - XR SHOULDER GENERAL 3V OR MORE AP/TRUE AP/OTHER LEFT Radiologist IMPRESSION: No radiographic evidence of acute osseous abnormality. Leathersmith: EVELINE Transcribe Date/Time: Jul 11 2023 1:17P [...] Discussed expected course of illness Moriah Hutchison APRN.CERTIFIED WELLNESS PROGRAM MANAGER documented in this encounter [facility] 07-11-2023 History of Presen t illness Narrative [...] nursing note reviewed. Exam conducted with a patient financial representative present. Constitutional: General: She is not in [...] No radiographic evidence of acute osseous abnormality. Leathersmith: EVELINE Transcribe Date/Time: Jul 11 2023 1:17P [...] Moriah Hutchison APRN.CNP documented in this encounter [facility] 07-06-2023 Miscellaneous Notes Patient notified and voiced understanding. The following approved medications have been transmitted electronically. Requested Prescriptions Signed Prescriptions Disp Refills fluconazole (DIFLUCAN) 150 mg tablet 1 tablet 0 Sig: Take 1 tablet by mouth one time only for 1 dose. Authorizing Provider: INDIGO CANDELARIO Pharmacy Information Pharmacy Address Telephone [facility] [id number] [place] [address] Lizeth Sanchez RN Fluconazole sent. Indigo Candelario APRN.CNP Patient requesting RX for Diflucan. Having vaginal irritation and itching. States she used a cucumber coolness mask on her vagina that is meant for the face. RX pending to be sent to [facility]. Patient can not afford to purchase OTC until payday. Monique Rosa RN documented in this encounter [facility] 06-25-2023 Note [facility] 06-25-2023 Note [facility] 06-19-2023 Miscellaneous Notes Patient has been identified by name and date of : Yes Patient phones for refill(s): Requested Prescriptions Pending Prescriptions Disp Refills lisinopril (ZESTRIL) 10 mg tablet 30 tablet 1 Sig: Take 1 tablet by mouth once daily. Date of last office visit in primary care: 05/29/2023 Please advise. Thank you. Mignon Aragon LPN documented in this encounter [facility] 05-29-2023 Note [facility] 05-29-2023 Instructions Jennifer Whitfield APRN.CERTIFIED WELLNESS PROGRAM MANAGER - 05/29/2023 1:16 PM EDT Start lisinopril daily. Recheck in a month. Plan for labs that day. documented in this encounter [facility] 05-29-2023 History of Presen t illness Narrative [...] as needed for worsening/no improvement. Jennifer Whitfield APRN.RIZWAN documented in this encounter [facility] 05-23-2023 Note [facility] 05-23-2023 History of Presen t illness Narrative [...] 05/23/2023 and treatment included: Therapeutic exercise and Self-penitentiary management. Goals for Episode of Care: created [...] of March 2023. Last seen 04/04/23 by RN BABY. She presents today asking if reasons she [...] performance and compliance. Patient education as noted. Self-Custodial Management: 1: *discussed self management of LBP [...] Total Treatment Time Minutes (timed/untimed): 25 Karina O'Malik, PT documented in this encounter [facility] 05-18-2023 Note [facility] 05-18-2023 Instructions Indigo Candelario APRN.RIZWAN - 05/18/2023 [...] scratching at night. documented in this encounter [facility] 05-18-2023 History of Presen t illness Narrative Building Code Administrator offered: Patient declines. Indigo Alves is a 47 year old female who presents for problem visit recurrent vaginal itching. HPI: Menses are monthly spotting with Mirena IUD. Has external vulvar and vaginal opening itching starting day before menses. Usually treats with fluconazole and symptoms resolve. Laundry Pods from [employer], Gain laundry beads, Bath and Body body [...] L3 SAB0 IAB0 Ectopic0 Multiple0 Live Births0 Tire Tester History LMP: 05/17/2023 (Exact Date), IUD Age at Menarche: Age at First : Age at Menopause: Tire Tester History Comments: Sexual Activity: Yes; Male Contraception: [...] external genitalia normal, normal Bartholin's glands, urethra, [employer]'s glands, no vulvar lesions, no cervical lesions, [...] 3 - Low documented in this encounter [facility] 05-17-2023 Miscellaneous Notes Spoke with pt and [...] WALDEMAR Rosa RN documented in this encounter [facility] 04-23-2023 Miscellaneous Notes Patient notified. The following approved medication requests have been transmitted electronically. Requested Prescriptions Signed Prescriptions Disp Refills clotrimazole-betamethasone (LOTRISONE) cream 15 g 0 Sig: Apply 1 application to affected area twice daily for 7 days. Authorizing Provider: NOHELIA TAYLOR Pharmacy Information Pharmacy Address Telephone [facility] [phone] [place] [address] Left message to call office Please let the pt know that her vaginal cultures are all negative. I will send in some cream for her to use external to see if that will help with the irritation. She can also try the boric acid suppositories or a vaginal pH vegetable farming supervisor. Nohelia Taylor APRN.CERTIFIED WELLNESS PROGRAM MANAGER documented in this encounter [facility] 04-20-2023 Note [facility] 04-19-2023 Miscellaneous Notes Noted. If pain becomes [...] and lower back discomfort and stiffness. Mimi Moody, JACKSON Message left for patient to return call for results. Lizeth Escobar Mri shows no acute issues related to her head injury. Some mild nonspecific changes-they can occur with things like migraines etc. See neurology as we discussed. documented in this encounter [facility] 04-17-2023 Note [facility] 04-17-2023 History of Presen t illness Narrative [...] 2023 12:01 PM documented in this encounter [facility] 04-16-2023 Miscellaneous Notes Last Office Visit: 03/12/2023 Future Office Visit: None Requested Prescriptions Pending Prescriptions Disp Refills metoprolol tartrate, short acting, (LOPRESSOR) 50 mg tablet 180 tablet 3 Sig: Take 1 tablet by mouth twice daily. Omeprazole Magnesium (PRILOSEC OTC) 20 mg tablet 30 tablet 5 Sig: Take 1 tablet by mouth once daily. Date of Last Labs: 03/08/2022 documented in this encounter [facility] 04-09-2023 Miscellaneous Notes Contacted pt and she does not need prescription renewed. Ifrah Carmichael LPN Received refill request from pt's pharmacy. Shopsyt message to pt inquiring if she is having sxs. Will await further response. Ifrah Carmichael LPN' documented in this encounter [facility] 04-04-2023 Note [facility] 04-04-2023 Note [facility] 04-04-2023 Note [facility] 04-04-2023 History of Presen t illness Narrative [...] 2023 11:11 AM documented in this encounter [facility] 03-30-2023 Miscellaneous Notes Letter taken to med [...] when completed. Please call patient back at [phone]. Mae Pendleton RN documented in this encounter [facility] 03-20-2023 Miscellaneous Notes Scheduled ER follow up [...] agrees. 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 Mae Pendleton RN documented in this encounter [facility] 03-20-2023 Note [facility] 03-20-2023 Note [facility] 03-20-2023 Note [facility] 03-20-2023 History of Presen t illness Narrative Subjective HPI HPI Indigo S Leeson is a 47 year old female who [...] - PREDNISONE 10 MG TABLET Allie Santiago APRN.CERTIFIED WELLNESS PROGRAM MANAGER documented in this encounter [facility] 03-20-2023 Note [facility] 03-20-2023 History of Presen t [...] Planned: 6 Planned Treatment Interventions: Therapeutic exercise (14251), Neuromuscular re-education (03709), Manual therapy (78780), Therapeutic activities (76289), Self-penitentiary management (62032), Gait Training (47234), Patient/Family/Caregiver Education PLAN FOR NEXT VISIT: Assess [...] Demonstration TREATMENT: PT Treatment Interventions: Therapeutic Exercise, Self-Custodial Management Evaluation Therapeutic Exercise: 1: *seated cervical [...] and function . Patient education as noted. Self-Custodial Management: 1: *postural educatoin 2: *discussed VOR, [...] Karina Rankin PT documented in this encounter [facility] 03-20-2023 History of Presen t illness Narrative Indigo [...] L3 SAB0 IAB0 Ectopic0 Multiple0 Live Births0 Tire Tester History LMP: 02/22/2023 (Exact Date), IUD Age at Menarche: Age at First : Age at Menopause: Tire Tester History Comments: Sexual Activity: Yes; Male Contraception: [...] external genitalia normal, normal Bartholin's glands, urethra, [employer]'s glands, physiologic discharge present, normal appearing perineal body and perianal region, 2 small occlusion cyst- pt would like them removed NEURO: alert and oriented x3,exam grossly non-focal EXTREMITIES: normal ASSESSMENT/PLAN: 1. Vulvar cyst - ICD9: 624.8, ICD10: N90.7 (primary diagnosis) - I&D performed 2. Stress incontinence - ICD9: [id number], ICD10: N39.3 - CONSULT TO PHYSICAL THERAPY - Oxybutynin 5 mg daily 3. Urge incontinence - ICD9: 788.31, ICD10: N39.41 - CONSULT TO PHYSICAL THERAPY 4. Pelvic pain in female - ICD9: 625.9, ICD10: R10.2 - XR PELVIS 2V INLET/OUTLET Nohelia Taylor APRN.RIZWAN Medical Decision Making: Problems: Low: Acute, uncomplicated illness or injury Data: Unique test(s) ordered: 1 Risk: Low: Low risk from testing/treatment Moderate: Drug management Medical Decision Making Level: 3 - Low INFORMED CONSENT Indigo Alves Medical Record: [id number] Procedure:incision and drainage of occlusion cyst x 2 The risks, benefits and anticipated outcomes of the procedure, the risks and benefits of the alternatives to the procedure and the roles and tasks of the personnel to be involved were discussed with the patient and the patient consents to the procedure and agrees to proceed. I verify that I personally obtained Indigo Macbelinda's consent. Nohelia Taylor APRN.CNP March 20, 2023 [...] pain, increased swelling, or fever. Nohelia Taylor APRN.CNP documented in this encounter [facility] 03-15-2023 Note [facility] 03-15-2023 Miscellaneous Notes Pt was notified of the results. Pt verbalized understanding. Xochitl Duarte MA No abnormal findings noted on x-ray. Continue supportive therapies as discussed. Yohannes Michael APRN.CNP documented in this encounter [facility] 03-15-2023 Note [facility] 03-15-2023 History of Presen t illness Narrative [...] Sinus: Maxillary sinus tenderness present. Mouth/Throat: Lips: [place]. Mouth: Mucous membranes are moist. Pharynx: Oropharynx [...] of care. This note was generated using [employer] software. It may contain errors in wording, punctuation, or spelling. Yohannes Michael APRN.RIZWAN documented in this encounter [facility] 03-14-2023 Miscellaneous Notes Patient having external vaginal itching. Has not tried OTC Monistat. Does not get paid until Sunday and would like RX for Diflucan sent in. No need to call patient back. RX pending. Monique Rosa RN documented in this encounter [facility] [facility] 03-14-2023 Note [facility] 03-14-2023 Miscellaneous Notes Patient has been identified [...] patient. Pari Perry documented in this encounter [facility] 03-12-2023 Note [facility] 03-12-2023 History of Presen t illness Narrative [...] did have CT scan following accident at [facility]. Denies nausea or vomiting with headaches currently. Still mildly foggy at times. No issues with memory. No speech issues. No issues with focal numbness or weakness. Her neck is stiff. No recent neck issues. Reviewed [facility] ER note. Ct of head and c [...] Guillermo Lizama MD documented in this encounter [facility] 03-05-2023 Note [facility] 03-05-2023 History of Presen t illness Narrative Chief Complaint Patient presents with: Telemedicine I have communicated my name and active licensure. The patient's identity and physical location were verified at the time of this visit. Either the patient or their legal residential sales representative has been informed of the risks and [...] agrees to the visit: Yes Patient Location: [facility] Indigo Alves is a 47 year old [...] at the scene. She was evaluated in [place] [facility]. Refers that she had imaging of [...] as needed for worsening/no improvement. Jennifer Whitfield APRN.CERTIFIED WELLNESS PROGRAM MANAGER documented in this encounter [facility] 03-01-2023 Note [facility] 03-01-2023 History of Presen t illness Narrative This note was created using [employer]. Subjective Indigo Alves is a 47 year [...] vomiting or diarrhea. She has been taking [id number] antihistamines and ibuprofen. She has taken her [...] evaluation. JOE Cortes documented in this encounter [facility] 02-22-2023 Note [facility] 02-08-2023 Note [facility] 02-08-2023 History of Presen t illness Narrative [...] L3 SAB0 IAB0 Ectopic0 Multiple0 Live Births0 Tire Tester History LMP: 04/25/2022, IUD Age at Menarche: Age at First : Age at Menopause: Tire Tester History Comments: Sexual Activity: Yes; Male Contraception: [...] external genitalia normal, normal Bartholin's glands, urethra, [place]'s glands, no vulvar lesions, no cervical lesions, [...] which included preparing to see the patient, [id number] patient care, completing clinical documentation, obtaining and/or reviewing separately obtained history, performing a medically appropriate examination, counseling and educating the patient/family/caregiver, and ordering medications, tests, or procedures. documented in this encounter [facility] 01-29-2023 Note HNO ID: [id number] Author: Clark Zaldivar APRN.CNP Service: ? Author Type: Nurse Practitioner Type: Progress Notes Filed: 01/29/2023 8:46 AM Note Text: Pt unable to log in and does not have working camera. Will reschedule as in person OV. [facility] 01-29-2023 History of Presen t illness Narrative Pt unable to log in and does not have working camera. Will reschedule as in person OV. documented in this encounter [facility] 01-24-2023 Note [facility] 01-24-2023 History of Presen t illness Narrative [...] Shawn Uribe MD documented in this encounter [facility] 01-16-2023 Note [facility] 01-10-2023 Miscellaneous Notes Patient asking pcp to [...] it to her. documented in this encounter [facility] 01-09-2023 Note [facility] 01-09-2023 History of Presen t illness Narrative Building Code Administrator offered: Patient declines. Indigo Alves is a 47 year old female who presents for problem visit vaginal discharge and odor. HPI: Yellow discharge and odd odor when patting dry after urinating for past 4 days. 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 She does not know if it is normal healing or an infection. No itching. No recent antibiotic OB History T0 L3 SAB0 IAB0 Ectopic0 Multiple0 Live Births0 Tire Tester History LMP: 04/25/2022, IUD Age at Menarche: Age at First : Age at Menopause: Tire Tester History Comments: Sexual Activity: Yes; Male Contraception: [...] external genitalia normal, normal Bartholin's glands, urethra, [place]'s glands, no cervical lesions, good vaginal support, [...] remnant - ICD9: 623.8, ICD10: N89.8 -Removal /[address] Heard -site almost completely healed with, induration or drainage. Reassurance given. Will notify of results. Follow- up as needed. Indigo Candelario APRN.CNP Medical Decision Making: Problems: Low: Acute, uncomplicated illness or injury Data: Unique test(s) ordered: 3+ Medical Decision Making Level: 3 - Low documented in this encounter [facility] 01-02-2023 Note [facility] 01-02-2023 History of Presen t illness Narrative Building Code Administrator offered: Patient declines. Indigo Alves presents for [...] Janay Majano MD documented in this encounter [facility] 01-01-2023 Note [facility] 12-15-2022 Note [facility] 12-15-2022 History of Presen t illness Narrative FOLLOW UP VISIT - SKIN LESION NAME: Indigo Mccracken [facility] NO.: [id number] DATE OF SERVICE: 12/14/2022 : 1975 REFERRING [...] Bettina Russo RN documented in this encounter [facility] 12-14-2022 Note [facility] 12-14-2022 Instructions Bettina Russo RN - 12/14/2022 4:29 PM EDT The following instructions are important for you related to your office visit today with the [facility]. Instructions After Skin Excison and [...] you should contact our office immediately @ [phone] and ask to be transferred to the General Surgery department. documented in this encounter [facility] 12-14-2022 Miscellaneous Notes Patient notified of provider's [...] letter from doctor within 48 hours. Can welding supervisor from office. Thank you. Noemy Avina RN documented in this encounter [facility] 12-13-2022 Miscellaneous Notes Patient scheduled with DM. Anny Perez RN Left message for patient to call office. Monique Rosa RN I would suggest she make an appointment with one of physicians for evaluation. Indigo Candelario APRN.RIZWAN Patient was seen by susan Candelario 04/14/2022 and discussed possible removal of Skin tag at base of introitus. Patient is wanting to have this removed as well as a mole on left inner thigh. Can both be removed? She has had other moles removed by Dr Kulkarni in the past. Please advise documented in this encounter [facility] 12-11-2022 Miscellaneous Notes December 12, 2022 PID: [id number] Indigo Alves [birth year][address] [address] Dear Ms. Alves, Your recent breast imaging exam on 12/11/2022 [...] who ordered/prescribed your screening mammogram: Please call [phone] or EXT: [phone] to schedule an appointment for your additional [...] and reports are kept on file at [facility] as part of your permanent medical record, and are available for your continuing care. Thank you for allowing us to help in meeting your health care needs. Sincerely, Dr. Cornell Interpreting Radiologist [facility] (Additional imaging) documented in this encounter [facility] 12-11-2022 Note [facility] 12-11-2022 History of Presen t illness Narrative [...] PERIPHERAL IV DATA: Not applicable SIGNED BY: Vinod Iyer December 11, 2022 11:21 AM documented in this encounter [facility] 12-01-2022 History of Presen t illness Narrative POPULATION HEALTH NAVIGATION OUTREACH Action/FYI [place] Support: Called pt to schedule an appt in Pain Management. Lvm for pt to call [phone] for scheduling. Patient Identified by Name and : NO Outreach Outcome/Action Unable to reach patient: Left message Did you use a PCP flex slot to schedule this appointment? N/A Reason for Outreach Care Gap or Scheduling/Wellness visits Payer: Payor: [facility] MEDICAID / Plan: [facility] MEDICAID / Product Type: Medicaid / Care [...] 2022 10:06 AM documented in this encounter [facility] 11-30-2022 Miscellaneous Notes Taken to med recs Letter printed. 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 Have [...] Jaguar Cook PA-C documented in this encounter [facility] 10-30-2022 Miscellaneous Notes Patient informed and verbalized [...] Let me know documented in this encounter [facility] 10-30-2022 History of Presen t illness Narrative Patient presents with: Right Hip - Pain, Established Patient Jonah Ibrahim MD Department of Orthopaedics Orthopaedics [address] [facility] [address] Dept: [phone] Dept October 30, 2022 CHIEF COMPLAINT: Pain [...] management or nonoperative spine would be appropriate. Ms. Indigo Alves was advised as to [...] Jonah Ibrahim MD documented in this encounter [facility] 10-26-2022 History of Presen t illness Narrative [...] Lilia Murphy PT documented in this encounter [facility] 10-26-2022 Miscellaneous Notes done New order needs filed please due to current order being future. documented in this encounter [facility] 10-24-2022 History of Presen t illness Narrative [...] Lilia Murphy PT documented in this encounter [facility] 10-17-2022 Miscellaneous Notes Detailed message left for pt to schedule appt Images from the original note were not included. 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: [employer] Patient Lives With: [...] Lilia Murphy PT documented in this encounter [facility] documented as of this encounter (statuses as of 01/02/2023) [facility] History of Past illness Narrative* Problem Noted Date Resolved Date Chronic midline low back pain without sciatica 0 10/17/2022 01/01/2023 Chronic neck pain 10/17/2022 01/01/2023 Lateral epicondylitis, right elbow 10/17/2022 01/01/2023 Acute pain of right shoulder 04/05/202211/2021 HTN (hypertension) 05/29/2012 04/04/2016 documented as of this encounter (statuses as of 01/09/2023) [facility] History of Past illness Narrative* Problem Noted Date Resolved Date Chronic midline low back pain without sciatica 0 10/17/2022 01/01/2023 Chronic neck pain 10/17/2022 01/01/2023 Lateral epicondylitis, right elbow 10/17/2022 01/01/2023 Acute pain of right shoulder 04/05/202211/2021 HTN (hypertension) 05/29/2012 04/04/2016 documented as of this encounter (statuses as of 01/11/2023) [facility] of Past illness Narrative* Problem Noted Date Resolved Date Chronic midline low back pain without sciatica 0 10/17/2022 01/01/2023 Chronic neck pain 10/17/2022 01/01/2023 Lateral epicondylitis, right elbow 10/17/2022 01/01/2023 Acute pain of right shoulder 04/05/202211/2021 HTN (hypertension) 05/29/2012 04/04/2016 documented as of this encounter (statuses as of 01/24/2023) [facility] of Past illness Narrative* Problem Noted Date Resolved Date Chronic midline low back pain without sciatica 0 10/17/2022 01/01/2023 Chronic neck pain 10/17/2022 01/01/2023 Lateral epicondylitis, right elbow 10/17/2022 01/01/2023 Acute pain of right shoulder 04/05/202211/2021 HTN (hypertension) 05/29/2012 04/04/2016 documented as of this encounter (statuses as of 01/29/2023) [facility] of Past illness Narrative* Problem Noted Date Resolved Date Chronic midline low back pain without sciatica 0 10/17/2022 01/01/2023 Chronic neck pain 10/17/2022 01/01/2023 Lateral epicondylitis, right elbow 10/17/2022 01/01/2023 Acute pain of right shoulder 04/05/202211/2021 HTN (hypertension) 05/29/2012 04/04/2016 documented as of this encounter (statuses as of 02/08/2023) [facility] of Past illness Narrative* Problem Noted Date Resolved Date Chronic midline low back pain without sciatica 0 10/17/2022 01/01/2023 Chronic neck pain 10/17/2022 01/01/2023 Lateral epicondylitis, right elbow 10/17/2022 01/01/2023 Acute pain of right shoulder 04/05/202211/2021 HTN (hypertension) 05/29/2012 04/04/2016 documented as of this encounter (statuses as of 03/01/2023) [facility] of Past illness Narrative* Problem Noted Date Resolved Date Chronic midline low back pain without sciatica 0 10/17/2022 01/01/2023 Chronic neck pain 10/17/2022 01/01/2023 Lateral epicondylitis, right elbow 10/17/2022 01/01/2023 Acute pain of right shoulder 04/05/202211/2021 HTN (hypertension) 05/29/2012 04/04/2016 documented as of this encounter (statuses as of 03/06/2023) [facility] of Past illness Narrative* Problem Noted Date Resolved Date Chronic midline low back pain without sciatica 0 10/17/2022 01/01/2023 Chronic neck pain 10/17/2022 01/01/2023 Lateral epicondylitis, right elbow 10/17/2022 01/01/2023 Acute pain of right shoulder 04/05/202211/2021 HTN (hypertension) 05/29/2012 04/04/2016 documented as of this encounter (statuses as of 03/13/2023) [facility] of Past illness Narrative* Problem Noted Date Resolved Date Chronic midline low back pain without sciatica 0 10/17/2022 01/01/2023 Chronic neck pain 10/17/2022 01/01/2023 Lateral epicondylitis, right elbow 10/17/2022 01/01/2023 Acute pain of right shoulder 04/05/202211/2021 HTN (hypertension) 05/29/2012 04/04/2016 documented as of this encounter (statuses as of 03/15/2023) [facility] of Past illness Narrative* Problem Noted Date Resolved Date Chronic midline low back pain without sciatica 0 10/17/2022 01/01/2023 Chronic neck pain 10/17/2022 01/01/2023 Lateral epicondylitis, right elbow 10/17/2022 01/01/2023 Acute pain of right shoulder 04/05/202211/2021 HTN (hypertension) 05/29/2012 04/04/2016 documented as of this encounter (statuses as of 03/15/2023) [facility] of Past illness Narrative* Problem Noted Date Resolved Date Chronic midline low back pain without sciatica 0 10/17/2022 01/01/2023 Chronic neck pain 10/17/2022 01/01/2023 Lateral epicondylitis, right elbow 10/17/2022 01/01/2023 Acute pain of right shoulder 04/05/202211/2021 HTN (hypertension) 05/29/2012 04/04/2016 documented as of this encounter (statuses as of 03/15/2023) [facility] of Past illness Narrative* Problem Noted Date Resolved Date Chronic midline low back pain without sciatica 0 10/17/2022 01/01/2023 Chronic neck pain 10/17/2022 01/01/2023 Lateral epicondylitis, right elbow 10/17/2022 01/01/2023 Acute pain of right shoulder 04/05/202211/2021 HTN (hypertension) 05/29/2012 04/04/2016 documented as of this encounter (statuses as of 03/20/2023) [facility] of Past illness Narrative* Problem Noted Date Resolved Date Chronic midline low back pain without sciatica 0 10/17/2022 01/01/2023 Chronic neck pain 10/17/2022 01/01/2023 Lateral epicondylitis, right elbow 10/17/2022 01/01/2023 Acute pain of right shoulder 04/05/202211/2021 HTN (hypertension) 05/29/2012 04/04/2016 documented as of this encounter (statuses as of 03/20/2023) [facility] of Past illness Narrative* Problem Noted Date Resolved Date Chronic midline low back pain without sciatica 0 10/17/2022 01/01/2023 Chronic neck pain 10/17/2022 01/01/2023 Lateral epicondylitis, right elbow 10/17/2022 01/01/2023 Acute pain of right shoulder 04/05/202211/2021 HTN (hypertension) 05/29/2012 04/04/2016 documented as of this encounter (statuses as of 03/21/2023) [facility] of Past [facility] Narrative* Problem Noted Date Resolved Date Chronic midline low back pain without sciatica 0 10/17/2022 01/01/2023 Chronic neck pain 10/17/2022 01/01/2023 Lateral epicondylitis, right elbow 10/17/2022 01/01/2023 Acute pain of right shoulder 04/05/202211/2021 HTN (hypertension) 05/29/2012 04/04/2016 documented as of this encounter (statuses as of 03/21/2023) [facility] of Past [facility] Narrative* Problem Noted Date Diagnosed Date Resolved Date Chronic midline low back mikhail n without sciatica 10/17/2022 01/01/2023 Chronic neck pain 10/17/2022 01/01/2023 Lateral epicondylitis, right elbow 10/17/2022 01/01/2023 Acute pain of right shoulder 04/05/2022 07/03/2022 HTN (hypertension) 05/29/2012 6 documented as of this encounter (statuses as of 04/10/2023) [facility] Narrative* Problem Noted Date Diagnosed Date Resolved Date Chronic midline low back mikhail n without sciatica 10/17/2022 01/01/2023 Chronic neck pain 10/17/2022 01/01/2023 Lateral epicondylitis, right elbow 10/17/2022 01/01/2023 Acute pain of right shoulder 04/05/2022 07/03/2022 HTN (hypertension) 05/29/2012 6 documented as of this encounter (statuses as of 04/16/2023) [facility] Past [facility] Narrative* Problem Noted Date Diagnosed Date Resolved Date Chronic midline low back mikhail n without sciatica 10/17/2022 01/01/2023 Chronic neck pain 10/17/2022 01/01/2023 Lateral epicondylitis, right elbow 10/17/2022 01/01/2023 Acute pain of right shoulder 04/05/2022 07/03/2022 HTN (hypertension) 05/29/2012 6 documented as of this encounter (statuses as of 04/17/2023) [facility] Narrative* Problem Noted Date Diagnosed Date Resolved Date Chronic midline low back mikhail n without sciatica 10/17/2022 01/01/2023 Chronic neck pain 10/17/2022 01/01/2023 Lateral epicondylitis, right elbow 10/17/2022 01/01/2023 Acute pain of right shoulder 04/05/2022 07/03/2022 HTN (hypertension) 05/29/2012 6 documented as of this encounter (statuses as of 04/19/2023) [facility] of Past [facility] Narrative* Problem Noted Date Diagnosed Date Resolved Date Chronic midline low back mikhail n without sciatica 10/17/2022 01/01/2023 Chronic neck pain 10/17/2022 01/01/2023 Lateral epicondylitis, right elbow 10/17/2022 01/01/2023 Acute pain of right shoulder 04/05/2022 07/03/2022 HTN (hypertension) 05/29/2012 6 documented as of this encounter (statuses as of 04/23/2023) [facility] Past [facility] Narrative* Problem Noted Date Diagnosed Date Resolved Date Chronic midline low back mikhail n without sciatica 10/17/2022 01/01/2023 Chronic neck pain 10/17/2022 01/01/2023 Lateral epicondylitis, right elbow 10/17/2022 01/01/2023 Acute pain of right shoulder 04/05/2022 07/03/2022 HTN (hypertension) 05/29/2012 6 documented as of this encounter (statuses as of 05/17/2023) [facility] Narrative* Problem Noted Date Diagnosed Date Resolved Date Chronic midline low back mikhail n without sciatica 10/17/2022 01/01/2023 Chronic neck pain 10/17/2022 01/01/2023 Lateral epicondylitis, right elbow 10/17/2022 01/01/2023 Acute pain of right shoulder 04/05/2022 07/03/2022 HTN (hypertension) 05/29/2012 6 documented as of this encounter (statuses as of 05/18/2023) [facility] Narrative* Problem Noted Date Diagnosed Date Resolved Date Chronic midline low back mikhail n without sciatica 10/17/2022 01/01/2023 Chronic neck pain 10/17/2022 01/01/2023 Lateral epicondylitis, right elbow 10/17/2022 01/01/2023 Acute pain of right shoulder 04/05/2022 07/03/2022 HTN (hypertension) 05/29/2012 6 documented as of this encounter (statuses as of 05/23/2023) [facility] Narrative* Problem Noted Date Diagnosed Date Resolved Date Chronic midline low back mikhail n without sciatica 10/17/2022 01/01/2023 Chronic neck pain 10/17/2022 01/01/2023 Lateral epicondylitis, right elbow 10/17/2022 01/01/2023 Acute pain of right shoulder 04/05/2022 07/03/2022 HTN (hypertension) 05/29/2012 6 documented as of this encounter (statuses as of 05/29/2023) [facility] Narrative* Problem Noted Date Diagnosed Date Resolved Date Chronic midline low back mikhail n without sciatica 10/17/2022 01/01/2023 Chronic neck pain 10/17/2022 01/01/2023 Lateral epicondylitis, right elbow 10/17/2022 01/01/2023 Acute pain of right shoulder 04/05/2022 07/03/2022 HTN (hypertension) 05/29/2012 6 documented as of this encounter (statuses as of 06/19/2023) [facility] Narrative* Problem Noted Date Diagnosed Date Resolved Date Chronic midline low back mikhail n without sciatica 10/17/2022 01/01/2023 Chronic neck pain 10/17/2022 01/01/2023 Lateral epicondylitis, right elbow 10/17/2022 01/01/2023 Acute pain of right shoulder 04/05/2022 07/03/2022 HTN (hypertension) 05/29/2012 6 documented as of this encounter (statuses as of 07/07/2023) [facility] Narrative* Problem Noted Date Diagnosed Date Resolved Date Chronic midline low back mikhail n without sciatica 10/17/2022 01/01/2023 Chronic neck pain 10/17/2022 01/01/2023 Lateral epicondylitis, right elbow 10/17/2022 01/01/2023 Acute pain of right shoulder 04/05/2022 07/03/2022 HTN (hypertension) 05/29/2012 6 documented as of this encounter (statuses as of 07/11/2023) [facility] Narrative* Problem Noted Date Diagnosed Date Resolved Date Chronic midline low back mikhail n without sciatica 10/17/2022 01/01/2023 Chronic neck pain 10/17/2022 01/01/2023 Lateral epicondylitis, right elbow 10/17/2022 01/01/2023 Acute pain of right shoulder 04/05/2022 07/03/2022 HTN (hypertension) 05/29/2012 6 documented as of this encounter (statuses as of 07/13/2023) [facility] Narrative* Problem Noted Date Diagnosed Date Resolved Date Chronic midline low back mikhail n without sciatica 10/17/2022 01/01/2023 Chronic neck pain 10/17/2022 01/01/2023 Lateral epicondylitis, right elbow 10/17/2022 01/01/2023 Acute pain of right shoulder 04/05/2022 07/03/2022 HTN (hypertension) 05/29/2012 6 documented as of this encounter (statuses as of 07/19/2023) [facility] History of Past illness Narrative* Problem Noted Date Diagnosed Date Resolved Date Chronic midline low back mikhail n without sciatica 10/17/2022 01/01/2023 Chronic neck pain 10/17/2022 01/01/2023 Lateral epicondylitis, right elbow 10/17/2022 01/01/2023 Acute pain of right shoulder 04/05/2022 07/03/2022 HTN (hypertension) 05/29/2012 6 documented as of this encounter (statuses as of 07/25/2023) [facility] History of Past illness Narrative* Problem Noted Date Diagnosed Date Resolved Date Chronic midline low back mikhail n without sciatica 10/17/2022 01/01/2023 Chronic neck pain 10/17/2022 01/01/2023 Lateral epicondylitis, right elbow 10/17/2022 01/01/2023 Acute pain of right shoulder 04/05/2022 07/03/2022 HTN (hypertension) 05/29/2012 6 documented as of this encounter (statuses as of 07/26/2023) [facility] History of Past illness Narrative* Problem Noted Date Diagnosed Date Resolved Date Chronic midline low back mikhail n without sciatica 10/17/2022 01/01/2023 Chronic neck pain 10/17/2022 01/01/2023 Lateral epicondylitis, right elbow 10/17/2022 01/01/2023 Acute pain of right shoulder 04/05/2022 07/03/2022 HTN (hypertension) 05/29/2012 6 documented as of this encounter (statuses as of 07/27/2023) [facility] History of Past illness Narrative* Problem Noted Date Diagnosed Date Resolved Date Chronic midline low back mikhail n without sciatica 10/17/2022 01/01/2023 Chronic neck pain 10/17/2022 01/01/2023 Lateral epicondylitis, right elbow 10/17/2022 01/01/2023 Acute pain of right shoulder 04/05/2022 07/03/2022 HTN (hypertension) 05/29/2012 6 documented as of this encounter (statuses as of 08/05/2023) [facility] History of Past illness Narrative* Problem Noted Date Diagnosed Date Resolved Date Chronic midline low back mikhail n without sciatica 10/17/2022 01/01/2023 Chronic neck pain 10/17/2022 01/01/2023 Lateral epicondylitis, right elbow 10/17/2022 01/01/2023 Acute pain of right shoulder 04/05/2022 07/03/2022 HTN (hypertension) 05/29/2012 6 documented as of this encounter (statuses as of 08/05/2023) [facility] History of Past illness Narrative* Problem Noted Date Diagnosed Date Resolved Date Chronic midline low back mikhail n without sciatica 10/17/2022 01/01/2023 Chronic neck pain 10/17/2022 01/01/2023 Lateral epicondylitis, right elbow 10/17/2022 01/01/2023 Acute pain of right shoulder 04/05/2022 07/03/2022 HTN (hypertension) 05/29/2012 6 documented as of this encounter (statuses as of 08/05/2023) [facility] of Past illness Narrative* Problem Noted Date Diagnosed Date Resolved Date Chronic midline low back mikhail n without sciatica 10/17/2022 01/01/2023 Chronic neck pain 10/17/2022 01/01/2023 Lateral epicondylitis, right elbow 10/17/2022 01/01/2023 Acute pain of right shoulder 04/05/2022 07/03/2022 HTN (hypertension) 05/29/2012 6 documented as of this encounter (statuses as of 08/31/2023) [facility] of Past illness Narrative* Problem Noted Date Diagnosed Date Resolved Date Chronic midline low back mikhail n without sciatica 10/17/2022 01/01/2023 Chronic neck pain 10/17/2022 01/01/2023 Lateral epicondylitis, right elbow 10/17/2022 01/01/2023 Acute pain of right shoulder 04/05/2022 07/03/2022 HTN (hypertension) 05/29/2012 6 documented as of this encounter (statuses as of 09/07/2023) [facility] of Past illness Narrative* Problem Noted Date Diagnosed Date Resolved Date Chronic midline low back mikhail n without sciatica 10/17/2022 01/01/2023 Chronic neck pain 10/17/2022 01/01/2023 Lateral epicondylitis, right elbow 10/17/2022 01/01/2023 Acute pain of right shoulder 04/05/2022 07/03/2022 HTN (hypertension) 05/29/2012 6 documented as of this encounter (statuses as of 09/09/2023) [facility] History of Past illness Narrative* Problem Noted Date Diagnosed Date Resolved Date Chronic midline low back mikhail n without sciatica 10/17/2022 01/01/2023 Chronic neck pain 10/17/2022 01/01/2023 Lateral epicondylitis, right elbow 10/17/2022 01/01/2023 Acute pain of right shoulder 04/05/2022 07/03/2022 HTN (hypertension) 05/29/2012 6 documented as of this encounter (statuses as of 11/20/2023) [facility] History of Past illness Narrative* Problem Noted Date Diagnosed Date Resolved Date Chronic midline low back mikhail n without sciatica 10/17/2022 01/01/2023 Chronic neck pain 10/17/2022 01/01/2023 Lateral epicondylitis, right elbow 10/17/2022 01/01/2023 Acute pain of right shoulder 04/05/2022 07/03/2022 HTN (hypertension) 05/29/2012 6 documented as of this encounter (statuses as of 11/22/2023) [facility] History of Past illness Narrative* Problem Noted Date Diagnosed Date Resolved Date Chronic midline low back mikhail n without sciatica 10/17/2022 01/01/2023 Chronic neck pain 10/17/2022 01/01/2023 Lateral epicondylitis, right elbow 10/17/2022 01/01/2023 Acute pain of right shoulder 04/05/2022 07/03/2022 HTN (hypertension) 05/29/2012 6 documented as of this encounter (statuses as of 11/28/2023) [facility] History of Past illness Narrative* Problem Noted Date Diagnosed Date Resolved Date Chronic midline low back mikhail n without sciatica 10/17/2022 01/01/2023 Chronic neck pain 10/17/2022 01/01/2023 Lateral epicondylitis, right elbow 10/17/2022 01/01/2023 Acute pain of right shoulder 04/05/2022 07/03/2022 HTN (hypertension) 05/29/2012 6 documented as of this encounter (statuses as of 12/07/2023) [facility] History of Past illness Narrative* Problem Noted Date Diagnosed Date Resolved Date Chronic midline low back mikhail n without sciatica 10/17/2022 01/01/2023 Chronic neck pain 10/17/2022 01/01/2023 Lateral epicondylitis, right elbow 10/17/2022 01/01/2023 Acute pain of right shoulder 04/05/2022 07/03/2022 HTN (hypertension) 05/29/2012 6 documented as of this encounter (statuses as of 12/07/2023) [facility]01[facility]17-[facility]23 Miscellaneous Notes* Telephone Encounter - Indigo Hutchinson Ma - 10/17/2022 12:56 PM EST Patient added to appointment wait list. * Telephone Encounter - Emilia Lunsford LPN - 10/17/2022 12:46 PM EST Patient called states is having hip pain and would like to be put on the waiting list, has appointment for 10/30/22 and would like sooner if possible. Thank you. Indigo# [phone] documented in this encounterC[facility] History of Present illness Narrative* Jonah Ibrahim MD - 10/09/2022 9:05 AM EST Patient presents with: Right Hand - New, Pain: CTS Jonah Ibrahim MD Department of Orthopaedics [facility] [address] [facility] [address] Dept: [phone] Dept October 09, 2022 CHIEF COMPLAINT: New [...] physician via US mail. Johnna Martinez [address] [facility] [address] M Nicolette Cook PA-C [address] [facility] [address] Jonah Ibrahim MD documented in this encounterC[facility]12-[facility]-2022 Miscellaneous Notes* Telephone Encounter - Lizeth Sanchez RN - 09/29/2022 9:06 AM EST Patient notified and voiced understanding. The following approved medications have been transmitted electronically. Requested Prescriptions Signed Prescriptions Disp Refills fluconazole (DIFLUCAN) 150 mg tablet 1 tablet 0 Sig: Take 1 tablet by mouth one time only for 1 dose. Authorizing Provider: KARINA GOLD Pharmacy Information Pharmacy Address Telephone [facility] [phone] [place] [address] Lizeth Sanchez RN * Telephone Encounter - [...] monistat and requesting diflucan documented in this encounterC[facility]12[facility]22 History of Present illness Narrative* Jaguar Cook PA-C - 09/21/2022 3:58 PM EST MyChart video visit was used for evaluation of this patient. Location of patient: [place] Patient was offered a virtual/telemedicine appointment in [...] review. 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 What are some conditions that are often [...] release the jimenez. CARPAL TUNNEL SYNDROME THE [place] [address] [email or web address] . . . . . . . . . . DEPARTMENT OF PLASTIC AND RECONSTRUCTIVE SURGERY SECTION OF PLASTIC SURGERY [facility]: [phone] MAIN CAMPUS: [place] [address] . . . . . . . . . . Hearing Impaired (TTY) Assistance [facility] 2003 Rev. 01/2004 Kyara JONES M . D. N Bonnie Fiore S documented in this encounterC[facility]12-15-2022 History of Present illness Narrative* Johnna Martinez [...] plan. Johnna Martinez PA-C documented in this encounterC[facility]12-14-2022 Miscellaneous Notes* Telephone Encounter - Anny Perez RN - 09/13/2022 10:18 AM EST Requested Prescriptions Pending Prescriptions Disp Refills Lactobacillus acidophilus (FLORAJEN ACIDOPHILUS) 20 billion cell cap 30 capsule 11 Sig: Take 1 capsule by mouth once daily. RX INSTRUCTIONS: Patient aware RX will be sent to pharmacy. No need to notify patient. Anny Perez RN documented in this encounterC[facility]12-[facility]-2022 History of Present illness Narrative* Nohemi Kulkarni MD - 09/08/2022 10:00 AM EST FOLLOW UP VISIT - ENDOSCOPY NAME: [facility] NO.: [id number] DATE OF SERVICE: September 07, 2022 : [...] month. Nohemi Kulkarni MD documented in this encounterC[facility]12-07-2022 Miscellaneous Notes* Telephone Encounter - Jaguar Cook PA-C - 09/06/2022 2:16 PM EST See other orders/ TE. Maikol Cook PA-C documented in this encounterCleveland Clinic [facility]12-07-2022 Miscellaneous Notes* Telephone Encounter - LAZARA Lira [...] [facility]. Thanks, Maikol Cook PA-C documented in this [facility]11-29-2022 Miscellaneous Notes* Telephone Encounter - Mignon Aragon LPN - 08/29/2022 2:18 PM EST Patient notified. Verbalized understanding. States [facility] to [facility]. * Telephone Encounter - Jaguar Cook PA-C - 08/29/2022 12:52 PM EST Schedule appointment or go to [facility]. Push fluids, avoid milk products. Thanks, Maikol Cook PA-C * Telephone Encounter - Denise Daley Pss - 08/28/2022 4:09 PM EST Patient is still waiting since this morning. Please call her as soon as sarahbile; call [phone]. * Telephone Encounter - Lana Comer RN [...] Please call and advise. documented in this encounterCleveland Clinic [facility] Hospital11-29-2022 Miscellaneous Notes* Telephone Encounter - Jaguar Cook [...] Pss - 08/28/2022 4:11 PM EST Indigo Alves is calling Jaguar Cook PA-C today to request Medication, not on the current list: fluticasone (FLONASE) 50 mcg/actuation nasal spray. Please send to [facility] on file. Patient has been identified by name and birthdate. Person calling: self Call patient at: on cell [phone] (home) [phone] (cell) Was an appointment scheduled: No Closing statement: Results or non-symptom based questions: Thank you for calling [facility], your call will be returned within the next business day. Denise Daley Pss documented in this encounterC[facility] Clinic [facility]11-25-2022 Miscellaneous Notes* Telephone Encounter - Lilia Marrero [...] Statesthat she was not able to stay [facility] hospital and wait for the results. She [...] out MS. Please advise. documented in this encounterCleveland Clinic [facility] Hospital11-23-2022 Miscellaneous Notes* Telephone Encounter - Mimi Moody RN - 08/23/2022 10:05 AM EST Triage protocol advised: ER now. Pt agreeable. Pt requested this nurse call her employer [employer] and speak to Christa and to inform Christa that pt has [...] cold symptoms 10. : no Protocols used: [id number] documented in this encounterCleveland Clinic [facility]11-15-2022 History of Present illness Narrative* M Nicolette Cook PA-C - 08/15/2022 4:58 PM EST 46 year [...] Refers that previous problems with the knee. [place] better for some time, but then started [...] comparison. Maikol Cook PA-C documented in this encounterCleveland Clinic [facility]11-11-2022 History of Present illness Narrative* Dee Dee [...] Level: 4 - Moderate documented in this encounterC[facility] Clinic [facility]11-09-2022 History of Present illness Narrative* Jennifer Whitfield APRN.CERTIFIED WELLNESS PROGRAM MANAGER - 08/09/2022 11:55 AM EST Chief Complaint [...] agrees to the visit: Yes Patient Location: [facility] Indigo Alves is a 46 year old [...] Refers that previous problems with the knee. [place] better for some time, but then started [...] patient = 11-20 minutes documented in this encounterCleveland Clinic [facility] Hospital11-09-2022 Instructions* Patient Instructions* Karina Gold APRN.CNM - [...] for diabetes Get tested for HIV/AIDS Copyright 7793-8756 [facility]. All rights reserved. This information is provided by the [facility] and is not intended to replace the medical advice of your doctor or health care provider. Please consult your health care provider for advice about a specific medical condition. For additional written health information, please contact the [facility] Center at the [facility] or toll-free extension [phone]. This document was last reviewed on: 2004 index#[id number] *Clairvee is the only oral probiotic that [...] eliminate the embarrassing symptoms. documented in this encounterCleveland Clinic [facility] Hospital11-09-2022 History of Present illness Narrative* Karina Gold [...] L3 SAB0 IAB0 Ectopic0 Multiple0 Live Births0 Tire Tester History LMP: 04/25/2022, IUD Age at Menarche: Age at First : Age at Menopause: Tire Tester History Comments: Sexual Activity: Yes; Male Contraception: [...] external genitalia normal, normal Bartholin's glands, urethra, [place] [employer] [place]'s glands, no vulvar lesions, no cervical lesions, [...] plan Karina Gold APRN.CNM documented in this [facility]2022 History of Present illness Narrative* Jaguar Cook PA-C - 08/08/2022 3:20 PM EST [employer] video visit was used for evaluation of this patient. Location of patient: [place] Patient was offered a virtual/telemedicine appointment in lieu of an office visit due to recommendations to reduce patient exposure to COVID-19. Patient is aware of limitations of performing the visit without a face to face visit in the office setting and agrees. 3:22 PM 3:41 PM No show Jaguar Cook PA-C documented in this [facility]11-03-2022 Miscellaneous Notes* Telephone Encounter - Mimi Lopez [...] and advise. Mimi Lopez documented in this encounterCleveland Clinic [facility] Hospital09-21-2022 Miscellaneous Notes* Telephone Encounter - Lana Comer RN - 06/21/2022 11:13 AM EDT Patient [...] you. Lana Comer RN documented in this encounterCleveland Clinic [facility] Hospital09-15-2022 Miscellaneous Notes* Telephone Encounter - Blank Samson [...] notify patient. Elisa Trevino documented in this encounterCleveland Clinic [facility] Hospital08-30-2022 History of Present illness Narrative* Nohemi Kulkarni MD - 05/30/2022 5:24 PM EDT FOLLOW UP VISIT - ENDOSCOPY NAME: Indigo Mccracken [facility] NO.: [id number] DATE OF SERVICE: May 30, 2022 : [...] applicable. Emilia Lunsford LPN documented in this encounterCleveland Clinic [facility] Hospital08-30-2022 Miscellaneous Notes* Telephone Encounter - Saskia Cruz [...] Dr. 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 documented in this encounterCleveland Clinic [facility] Hospital08-11-2022 History of Present illness Narrative* Nohemi Kulkarni MD - 05/11/2022 6:25 PM EDT FOLLOW UP VISIT - ENDOSCOPY - VIRTUAL NAME: Indigo Mccracken [facility] NO.: [id number] DATE OF SERVICE: 05/09/2022 : 1975 REFERRING [...] She was not able to communicate/connect through [employer]. We were able to do a virtual [...] needed. Nohemi Kulkarni MD documented in this encounterCleveland Clinic [facility] Hospital08-09-2022 Miscellaneous Notes* Telephone Encounter - Bettina Russo RN - 05/09/2022 5:02 PM EDT Attempted to call patient ([phone]) no answer. Bettina Russo RN documented in this encounterCleveland Clinic [facility] Hospital08-09-2022 Miscellaneous Notes* Telephone Encounter - Gabi Wells [...] you. Betty Crane APRN.RIZWAN documented in this encounterCleveland Clinic [facility] Hospital08-09-2022 History of Present illness Narrative* Betty CraneROSARIO.CERTIFIED WELLNESS PROGRAM MANAGER - 05/09/2022 11:11 AM EDT Subjective The history is provided by the patient. No director market research was used. HPI Indigo Alves is a [...] have confirmed and edited as necessary, the [facility] Review of Systems Constitutional: Negative for [...] evaluation. Betty Crane APRN.CNP documented in this encounterCleveland Clinic [facility] Hospital08-07-2022 Instructions* Patient Instructions* Betty Crane APRN.CNP - [...] pain go to ER. documented in this encounterCleveland Clinic [facility] Hospital08-07-2022 History of Present illness Narrative* Betty Crane APRN.CNP - 05/07/2022 11:18 AM EDT Subjective The history is provided by the patient. No director market research was used. HPI Indigo Alves is a [...] have confirmed and edited as necessary, the [facility] Review of Systems Constitutional: Negative for [...] evaluation. Betty Crane APRN.RIZWAN documented in this encounterCleveland Clinic [facility] Hospital08-03-2022 Miscellaneous Notes* Telephone Encounter - Bettina Russo RN - 05/03/2022 10:46 AM EDT Indigo called back. Reviewed Dr. Kulkarni's message with her, offered her an appointment for today, sheyonill check with her sister regarding transportation to [...] rectal ointment. Requesting pain medication [facility]acy [facility]. documented in this encounterCleveland Clinic [facility] Hospital07-27-2022 NoteHNO ID: [id number] Author: Nasreen Adam MD Service: Anesthesiology Author Type: Anesthesiologist Type: Anesthesia Procedure Notes Filed: 04/26/2022 10:34 AM Note Text: ANESTHESIOLOGY PROCEDURE NOTE Airway General Information Procedure Start Time/Medication Administration: 04/26/2022 10:20 AM Patient location during procedure: OR Timeout Performed Pre-procedure: timeout performed Consent Obtained: Yes Patient identity confirmed: arm band and patient Staffing NET SOFTWARE ENGINEER: Jemima Musa APRN.NET SOFTWARE ENGINEER Performed by: DALLIN Indications and Patient Condition Preoxygenated: yes Patient [...] April 26, 2022 TIME: 10:32 AM CSN: [id number] Nurse Note* Blank Wiley RN - 04/25/2022 10:20 AM EDT Pt received in PACU. Pt moderately drowsy, but arouses easily. Denies pain or nausea. Abd soft and non distended. Blank Wiley RN documented in this encounterCleveland Clinic [facility] Hospital07-26-2022 History and physical note * Nohemi Kulkarni [...] screen for marijuana - last use 2015 FAMILY HISTORY: FAMILY HISTORY FAMILY HISTORY Problem [...] F), height 160 cm (5' 3 ), rimubs42.3 kg (174 lb 12.8 oz), last menstrual [...] to perform upper and lower endoscopy in [place]. We discussed the risks and benefits of [...] patient was offered a surgery/procedure at a [facility]. The surgeon/proceduralist and patient have discussed [...] CPT Code: Examination Under Anesthesia, Hemorrhoidectomy - 76317-147 Anticipated Anesthetic: Choice Patient weight: Blood pressure 126/94, pulse 87, temperature 36.6 C (97.8 F), height 160 cm (5' 3 ), weight 79.3 kg (174 lb 12.8 oz), last menstrual period 10/17/2020, SpO2 96 %. BMI: Body mass indexis 30.96 kg/m . Planned antibiotic: clindamycin 900mg IVPB power house control room operator to OR SCDs needed - Yes Easement Man Needed - Yes Diagnoses: (K59.00) Constipation, unspecified constipation type (primary encounter diagnosis) (K64.2) Grade III hemorrhoids (R12) Heartburn My findings have been communicated to Dr. Guillermo Lizama MD via shared medical record. This note will be forwarded to Dr. Guillermo Lizama MD. Return to Clinic: The patient is instructed to follow-up with me 1 week post operatively. This note was partially generated using [employer] voice recognition system, and there may be some incorrect words, spellings, and punctuation that were not noted in checking the note before saving. Nohemi Kulkarni MD documented in this encounterCleveland Clinic [facility] Hospital07-25-2022 Miscellaneous Notes* Telephone Encounter - Emilia Lunsford LPN - 04/24/2022 10:34 AM EDT Patient updated * Telephone Encounter - Lana Miner PA-C - 04/24/2022 10:15 AM EDT Rx sent * Telephone Encounter - Emilia Lunsford LPN - 04/24/2022 10:06 AM EDT Patient called requesting a new script for Gol[facility] to [facility] in [place], having colonoscopy on 04/26/[address] Kulkarni. Can you please send in a script? Thank you. documented in this encounterCleveland Clinic [facility] Hospital07-15-2022 Instructions* Patient Instructions* Indigo Candelario APRN.CERTIFIED WELLNESS PROGRAM MANAGER - 04/14/2022 9:33 AM EDT If positive [...] avoid scratching at night. documented in this encounterCleveland Clinic [facility] Hospital07-15-2022 History of Present illness Narrative* Indigo Candelario [...] external genitalia normal, normal Bartholin's glands, urethra, [place] [employer] [place]'s glands, no vulvar lesions, no cervical lesions, [...] which included preparing to see the patient, [id number] patient care, completing clinical documentation, obtaining and/or reviewing separately obtained history, performing a medically appropriate examination, counseling and educating the pat ient/family/caregiver and ordering medications, tests, or procedures. documented in this encounterCleveland Clinic [facility] Hospital07-11-2022 Instructions* Patient Instructions* Crystal Rdz PA-C - 04/10/2022 10:33 AM EDT PATIENT PREOPERATIVE INSTRUCTIONS Nohemi Kulkarni MD has scheduled you for your procedure at this surgery center: [facility]: [phone] -- [address] [facility] [address]. Please read below carefully for your personalized [...] Procedures: - YOU MUST HAVE A RESPONSIBLE CERTIFIED PROCEDURAL CODER TAKE YOU HOME. A SCALLOP RAKER OR PC ANALYST CANNOT BE MADE A RESPONSIBLE CERTIFIED PROCEDURAL CODER. - We recommend that a responsible person [...] Advance Directive, please fax a copy to [phone] or email to for it to be [...] day. Crystal Rdz PA-C documented in this encounterCleveland Clinic [facility] Hospital07-11-2022 History and physical note * Crystal Rdz PA-C - 04/10/2022 10:10 AM EDT PREANESTHESIA CONSULT CLINIC TELEHEALTH VISIT Patient has been identified by name and date of : Yes This is a virtual visit using [employer] video visit. It require patient-provider interaction for [...] or incontinence,, stones or chronic kidney disease GOLF STUD RIVETER: Negative for abnormal vaginal bleeding, abnormal vaginal [...] Assessment: history of heart palpitations, seen by [facility] cardiology 03/2021. Patient ordered stress echo at [...] device. I spent more than 21-40 minutes [id number] with the patient and over half the time was devoted tocounseling and/or coordination of care. This is a virtual visit. It required patient-provider interaction for the medical decision making as documented above. SIGNATURE: Crystal Rdz PA-C PATIENT NAME: Indigo Alves DATE: April 10, 2022 TIME: 10:43 AM PAGER/CONTACT #: documented [facility] History of Past illness Narrative* Problem Noted Date Resolved Date Acute pain of right shoulder 04/05/202211/2021 HTN (hypertension) 05/29/2012 04/04/2016 documented as of this encounter (statuses as of 08/04/2022) [facility] of Past illness Narrative* Problem Noted Date Resolved Date Acute pain of right shoulder 04/05/202211/2021 HTN (hypertension) 05/29/2012 04/04/2016 documented as of this encounter (statuses as of 08/09/2022) [facility] of Past illness Narrative* Problem Noted Date Resolved Date Acute pain of right shoulder 04/05/202211/2021 HTN (hypertension) 05/29/2012 04/04/2016 documented as of this encounter (statuses as of 08/09/2022) [facility] of Past illness Narrative* Problem Noted Date Resolved Date Acute pain of right shoulder 04/05/202211/2021 HTN (hypertension) 05/29/2012 04/04/2016 documented as of this encounter (statuses as of 08/09/2022) [facility] of [facility] illness Narrative* Problem Noted Date Resolved Date Acute pain of right shoulder 04/05/202211/2021 HTN (hypertension) 05/29/2012 04/04/2016 documented as of this encounter (statuses as of 08/11/2022) [facility] Narrative* Problem Noted Date Resolved Date Acute pain of right shoulder 04/05/202211/2021 HTN (hypertension) 05/29/2012 04/04/2016 documented as of this encounter (statuses as of 08/16/2022) [facility] of [facility] Narrative* Problem Noted Date Resolved Date Acute pain of right shoulder 04/05/202211/2021 HTN (hypertension) 05/29/2012 04/04/2016 documented as of this encounter (statuses as of 08/25/2022) [address]06-2022 History of Past illness Narrative* Problem Noted Date Resolved Date Acute pain of right shoulder 04/05/202211/2021 HTN (hypertension) 05/29/2012 04/04/2016 documented as of this encounter (statuses as of 08/29/2022) [address]06-2022 History of Past illness Narrative* Problem Noted Date Resolved Date Acute pain of right shoulder 04/05/202211/2021 HTN (hypertension) 05/29/2012 04/04/2016 documented as of this encounter (statuses as of 08/29/2022) [address]06-2022 History of Past illness Narrative* Problem Noted Date Resolved Date Acute pain of right shoulder 04/05/202211/2021 HTN (hypertension) 05/29/2012 04/04/2016 documented as of this encounter (statuses as of 08/31/2022) [address]06-[address]22 History of Past illness Narrative* Problem Noted Date Resolved Date Acute pain of right shoulder 04/05/202211/2021 HTN (hypertension) 05/29/2012 04/04/2016 documented as of this encounter (statuses as of 09/06/2022) [address]22 History of Past illness Narrative* Problem Noted Date Resolved Date Acute pain of right shoulder 04/05/202211/2021 HTN (hypertension) 05/29/2012 04/04/2016 documented as of this encounter (statuses as of 09/08/2022) [address]06-[address]22 History of Past illness Narrative* Problem Noted Date Resolved Date Acute pain of right shoulder 04/05/202211/2021 HTN (hypertension) 05/29/2012 04/04/2016 documented as of this encounter (statuses as of 09/14/2022) [address]22 History of Past illness Narrative* Problem Noted Date Resolved Date Acute pain of right shoulder 04/05/202211/2021 HTN (hypertension) 05/29/2012 04/04/2016 documented as of this encounter (statuses as of 09/14/2022) [facility] Narrative* Problem Noted Date Resolved Date Acute pain of right shoulder 04/05/202211/2021 HTN (hypertension) 05/29/2012 04/04/2016 documented as of this encounter (statuses as of 09/22/2022) [facility] Narrative* Problem Noted Date Resolved Date Acute pain of right shoulder 04/05/202211/2021 HTN (hypertension) 05/29/2012 04/04/2016 documented as of this encounter (statuses as of 10/04/2022) [facility] Narrative* Problem Noted Date Resolved Date Acute pain of right shoulder 04/05/202211/2021 HTN (hypertension) 05/29/2012 04/04/2016 documented as of this encounter (statuses as of 10/17/2022) [facility] Narrative* Problem Noted Date Resolved Date Acute pain of right shoulder 04/05/202211/2021 HTN (hypertension) 05/29/2012 04/04/2016 documented as of this encounter (statuses as of 10/17/2022) [facility] Narrative* Problem Noted Date Resolved Date Acute pain of right shoulder 04/05/202211/2021 HTN (hypertension) 05/29/2012 04/04/2016 documented as of this encounter (statuses as of 10/18/2022) [address]22 History of Past illness Narrative* Problem Noted Date Resolved Date Acute pain of right shoulder 04/05/202211/2021 HTN (hypertension) 05/29/2012 04/04/2016 documented as of this encounter (statuses as of 10/23/2022) [facility] Narrative* Problem Noted Date Resolved Date Acute pain of right shoulder 04/05/202211/2021 HTN (hypertension) 05/29/2012 04/04/2016 documented as of this encounter (statuses as of 10/24/2022) [address]22 History of Past illness Narrative* Problem Noted Date Resolved Date Acute pain of right shoulder 04/05/202211/2021 HTN (hypertension) 05/29/2012 04/04/2016 documented as of this encounter (statuses as of 10/26/2022) [address] History of Past illness Narrative* Problem Noted Date Resolved Date Acute pain of right shoulder 04/05/202211/2021 HTN (hypertension) 05/29/2012 04/04/2016 documented as of this encounter (statuses as of 10/26/2022) [address]22 History of Past illness Narrative* Problem Noted Date Resolved Date Acute pain of right shoulder 04/05/202211/2021 HTN (hypertension) 05/29/2012 04/04/2016 documented as of this encounter (statuses as of 10/26/2022) [address]22 History of Past illness Narrative* Problem Noted Date Resolved Date Acute pain of right shoulder 04/05/202211/2021 HTN (hypertension) 05/29/2012 04/04/2016 documented as of this encounter (statuses as of 10/31/2022) [address]22 History of Past illness Narrative* Problem Noted Date Resolved Date Acute pain of right shoulder 04/05/202211/2021 HTN (hypertension) 05/29/2012 04/04/2016 documented as of this encounter (statuses as of 11/07/2022) [address]22 History of Past illness Narrative* Problem Noted Date Resolved Date Acute pain of right shoulder 04/05/202211/2021 HTN (hypertension) 05/29/2012 04/04/2016 documented as of this encounter (statuses as of 11/07/2022) [address]22 History of Past illness Narrative* Problem Noted Date Resolved Date Acute pain of right shoulder 04/05/202211/2021 HTN (hypertension) 05/29/2012 04/04/2016 documented as of this encounter (statuses as of 11/10/2022) [address]22 History of Past illness Narrative* Problem Noted Date Resolved Date Acute pain of right shoulder 04/05/202211/2021 HTN (hypertension) 05/29/2012 04/04/2016 documented as of this encounter (statuses as of 11/14/2022) [address]22 History of Past illness Narrative* Problem Noted Date Resolved Date Acute pain of right shoulder 04/05/202211/2021 HTN (hypertension) 05/29/2012 04/04/2016 documented as of this encounter (statuses as of 11/16/2022) [address] History of Past illness Narrative* Problem Noted Date Resolved Date Acute pain of right shoulder 04/05/202211/2021 HTN (hypertension) 05/29/2012 04/04/2016 documented as of this encounter (statuses as of 11/17/2022) [address]22 History of Past illness Narrative* Problem Noted Date Resolved Date Acute pain of right shoulder 04/05/202211/2021 HTN (hypertension) 05/29/2012 04/04/2016 documented as of this encounter (statuses as of 11/20/2022) [address]22 History of Past illness Narrative* Problem Noted Date Resolved Date Acute pain of right shoulder 04/05/202211/2021 HTN (hypertension) 05/29/2012 04/04/2016 documented as of this encounter (statuses as of 11/30/2022) [address]22 History of Past illness Narrative* Problem Noted Date Resolved Date Acute pain of right shoulder 04/05/202211/2021 HTN (hypertension) 05/29/2012 04/04/2016 documented as of this encounter (statuses as of 12/01/2022) [address]22 History of Past illness Narrative* Problem Noted Date Resolved Date Acute pain of right shoulder 04/05/202211/2021 HTN (hypertension) 05/29/2012 04/04/2016 documented as of this encounter (statuses as of 12/01/2022) [address]22 History of Past illness Narrative* Problem Noted Date Resolved Date Acute pain of right shoulder 04/05/202211/2021 HTN (hypertension) 05/29/2012 04/04/2016 documented as of this encounter (statuses as of 12/13/2022) [facility] Narrative* Problem Noted Date Resolved Date Acute pain of right shoulder 04/05/202211/2021 HTN (hypertension) 05/29/2012 04/04/2016 documented as of this encounter (statuses as of 12/13/2022) [facility] of [facility] Narrative* Problem Noted Date Resolved Date Acute pain of right shoulder 04/05/202211/2021 HTN (hypertension) 05/29/2012 04/04/2016 documented as of this encounter (statuses as of 12/14/2022) [facility] of [facility] Narrative* Problem Noted Date Resolved Date Acute pain of right shoulder 04/05/202211/2021 HTN (hypertension) 05/29/2012 04/04/2016 documented as of this encounter (statuses as of 12/15/2022) [facility] of [facility] Narrative* Problem Noted Date Diagnosed Date Resolved Date Acute pain of right shoulder 04/05/2022 07/03/2022 HTN (hypertension) 05/29/2012 6 documented as of this encounter (statuses as of 08/06/2023) [facility] History of Present illness Narrative* Lilia Murphy, [...] of Care: created on 04/05/22 through 06/14/22 Scott in home exercise program. 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 Mignon Aragon LPN documented in this encounterC[facility]06[facility]-2022 Miscellaneous Notes* Telephone Encounter - Ruben Randolph LPN - 03/27/2022 5:50 PM EDT Please assist pt with scheduling MRI in 6 months. Ruben Randolph LPN * Telephone Encounter - Jaguar Cook PA-C - 03/27/2022 5:01 PM EDT Notified through [employer]. Please schedule 6mo Telephone on 03/27/22 MRI LIVER WO/W IVCON Liver nodule Maikol Love PA-C documented in this encounterC[facility]06-[facility]-2022 Miscellaneous Notes* Telephone Encounter - Jaguar Cook PA-C - 03/23/2022 12:45 PM EDT Please set up consult with PT to formulate plan. Get Medical Advice on 03/23/22 CONSULT TO PHYSICAL THERAPY Acute pain of right shoulder (primary encounter diagnosis) Maikol Love PA-C documented in this encounterCleveland Clinic [facility]06-23-[facility]22 History of Present illness Narrative* RT Car(Shyam) [...] Exam(s) Completed: Body: Liver (routine) SIGNATURE: RT Car(R) PATIENT NAME: Indigo Alves DATE: March 23, 2022 TIME: 11:16 AM documented in this encounterC[facility]06[facility]-2022 Instructions* Patient Instructions* Jaguar Cook PA-C - [...] the next few days. documented in this encounterC[facility]06-20-2022 History of Present illness Narrative* Jaguar Cook [...] Patient has full range of motion, negative [place]'s, negative [place], negative lift off, negative speeds. [...] Jaguar Cook PA-C documented in this encounterC[facility]06-09-2022 Miscellaneous Notes* Telephone Encounter - Lilia Marrero [...] things figured out. 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 documented in this encounterC[facility]06-[facility]-2022 History of Present illness Narrative* Jaguar Cook PA-C - 03/07/2022 10:13 AM EDT [employer] [facility] video visit was used for evaluation of this patient. Location of patient: [place] Patient was offered a virtual/telemedicine appointment in [...] call Jaguar Cook PA-C documented in this encounterC[facility]06-[facility]-2022 History of Present illness Narrative* Shawn Uribe [...] improving. Shawn Uribe MD documented in this encounterC[facility]06-01-2022 History of Present illness Narrative* Yohannes Michael APRN.[facility] - 03/01/2022 10:39 AM EDT Subjective HPI [...] screen for marijuana - last use 2016 BP 142/84 Pulse 63 Temp 36.3 C (97.4 F) (Tympanic) Resp 18 Wt 79.2 kg (174 lb 9.6 oz) [facility] SpO2 98% BMI 31.93 kg/m \ Review [...] care. Patient states will be seen at [facility]. Patient verbalized understand agrees with plan of care. Yohannes Michael APRN.RIZWAN documented in this encounterC[facility]05-16-2022 Miscellaneous Notes* Telephone Encounter - Vibha Zaman - 02/13/2022 8:13 AM EDT Called patient to inform that ASC and PACC will not proceed with upper and lower scoped with Shad until such further testing is completed. LV of message and to give me a call directly at [phone] if any questions. Vibha Zaman * Telephone [...] and they are booked out. Patient stated [facility] could do 02/28. Patient stated she might [...] anesthesia. Emilia Lunsford LPN documented in this encounterC[facility]05-11-2022 Miscellaneous Notes* Telephone Encounter - Ifrah Llanes LPN - 02/08/2022 2:32 PM EDT Called patient and made aware of message from Lo Castellanos CNP. Verbalizes understanding. Ifrah Llanes LPN * Telephone Encounter - Lo Castellanos APRN.CNP - 02/08/2022 1:37 PM EDT No she has to have the echo-stress completed prior to surgery, EKG and CXR is not enough. Can she complete in [place] or [place] to keep her surgery on track that would be better. Please let her know this. * Telephone Encounter - Ifrah Llanes LPN - 02/08/2022 1:16 PM EDT Patient called to get fax number so [facility] can send over tests that was done there November 2021. Ifrah Llanes LPN * Telephone Encounter - Radha Santos LPN - 02/08/2022 1:03 PM EDT Patient reports the earliest she can schedule her echo at [facility] is 02/28. She did schedule if she needs to proceed with this, but would need to reschedule her surgery with Shad on the . She had an EKG and CXR completed recently at 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 Please advise. Radha Santos LPN documented in this encounterC[facility]05-11-2022 Instructions* Patient Instructions* Lo Castellanos APRN.CNP - 02/08/2022 11:35 AM EDT PATIENT PREOPERATIVE INSTRUCTIONS No ref. provider found has scheduled you for your procedure at this surgery center: [facility]: [phone] -- [address] [address]. Please read below carefully for your personalized [...] Procedures: - YOU MUST HAVE A RESPONSIBLE CERTIFIED PROCEDURAL CODER TAKE YOU HOME. A SCALLOP RAKER OR PC ANALYST CANNOT BE MADE A RESPONSIBLE CERTIFIED PROCEDURAL CODER. - We recommend that a responsible person [...] Advance Directive, please fax a copy to [phone] or email to for it to be [...] day. Lo Castellanos APRN.RIZWAN documented in this encounterCleveland Clinic [facility]05-11-2022 History and physical note * Lo Castellanos APRN.RIZWAN - 02/08/2022 11:30 AM EDT HISTORY AND [...] fevers. Neurological: No history of TIA's, stroke, WOODS LABORER tumor, impaired sensorium, hemiplegia, paraplegia orquadraplegia. No [...] pain, CHF, congenital heart defect, DVT/PE, recent AK, murmur/valvular heart disease, PVD, open heart surgery [...] > 1 time per night or hematuria. GOLF STUD RIVETER: Negative for abnormal vaginal bleeding, abnormal vaginal [...] or any previous visit (from the past 26036 hour(s)). Assessment Anxiety state Assessment: marijuana daily, [...] Airway History: No history of difficult airway [id number] Score: Age: <65 Sex: Female CHF history: [...] and consent discussed: yes. Patient / Responsible Alliance Party agrees to proceed: yes Patient / [...] 11:30 AM PAGER/CONTACT #: documented in this encounterCleveland Clinic [facility]05-11-2022 Miscellaneous Notes* Telephone Encounter - Jaguar Cook PA-C - 02/08/2022 9:56 AM EDT [...] spasm. Jaguar Cook PA-C documented in this encounterCleveland Clinic [facility] Hospital05-10-2022 History of Present illness Narrative* Nohelia Taylor APRN.CERTIFIED WELLNESS PROGRAM MANAGER - 02/07/2022 7:01 AM EDT Indigo is [...] L3 SAB0 IAB0 Ectopic0 Multiple0 Live Births0 Tire Tester History LMP: 10/17/2020, IUD Age at Menarche: Age at First : Age at Menopause: Tire Tester History Comments: Sexual Activity: Yes; Male Contraception: [...] external genitalia normal, normal Bartholin's glands, urethra, [place] [employer] [place]'s glands, no vulvar lesions, no cervical lesions, [...] needed Nohelia Taylor APRN.RIZWAN documented in this encounterCleveland Clinic [facility]05-09-2022 Miscellaneous Notes* Telephone Encounter - Kellee Blum [...] to the pharmacy. Please call patient at: [phone]. Kellee Blum MA Gen[place]: 12/2021 Nov: No [...] to the pharmacy. Please call patient at: [phone]. Nithya Lopez documented in this encounterCleveland Clinic [facility]05-04-2022 Miscellaneous Notes* Telephone Encounter - Yessenia Vickers [...] I will order an MRI to assess. Jaspreet, Jaguar Cook PA-C * Telephone Encounter - Lana Comer RN - 02/01/2022 9:19 AM EDT Pt called in asking if provider could look at her US results. Please call and advise. Pt reports she is at work and will not be off until 100 pm, can call after 1 or leave a voice mail. Lana Comer RN documented in this encounterCleveland Clinic [facility]05-04-2022 Miscellaneous Notes* Telephone Encounter - Yessenia Vickers Ma - 02/01/2022 11:28 AM EDT Can you please call pt and help her get requested imaging setup. Yessenia Vickers Ma * Telephone Encounter - Jaguar Cook PA-C - 02/01/2022 9:43 AM EDT Please advise scheduled MRI w/wo contrast to evaluate liver nodule on US. Result note sent through [facility]. Telephone on 02/01/22 MRI LIVER WO/W IVCON Maikol Love PA-C documented in this encounterCleveland Clinic [facility]05-02-2022 History of Present illness Narrative* Karina Villalba [...] 30, 2022 2:12 PM documented in this encounterC[facility] Clinic [facility]04-29-2022 History of Present illness Narrative* Jaguar Cook [...] 10 mL INTRAVENOUS DIRECTED PRN Lyle Mccauley, DO COVID-19 VACCINE(1) Never done BP CONTROLLED [...] up. Jaguar Cook PA-C documented in this encounterCleveland Clinic [facility]04-26-2022 Miscellaneous Notes* Telephone Encounter - Jasmin Uribe - 01/24/2022 12:11 PM EDT notified pt. 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 * Telephone Encounter - Gillian Graff LPN [...] Maikol. Betty Crane APRN.CNP documented in this encounterCleveland Clinic [facility] Hospital04-26-2022 Miscellaneous Notes* Telephone Encounter - Mimi Moody RN - 01/24/2022 8:08 AM EDT Patient calling about recent lab results. Informed patient that not all lab results have returned and provider will advise once those results return. Patient verbalized understanding. Mimi Moody RN documented in this encounterCleveland Clinic [facility]04-25-2022 Instructions* Patient Instructions* Betty Crane APRN.CNP - [...] pain go to ER. documented in this encounterCleveland Clinic [facility] Hospital04-25-2022 History of Present illness Narrative* Betty Crane APRN.CNP - 01/23/2022 4:14 PM EDT Subjective The history is provided by the patient. No director market research was used. HPI Indigo Alves is a [...] Wt 77.1 kg (170 lb) LMP 10/17/2020 IjU502% BMI 30.11 kg/m Social History Tobacco Use [...] have confirmed and edited as necessary, the [facility] Review of Systems Constitutional: Negative for [...] indetail warranting prompt ER evaluation. Betty Crane APRN.CERTIFIED WELLNESS PROGRAM MANAGER documented in this encounterCleveland Clinic [facility] Hospital03-02-2022 Miscellaneous Notes* Telephone Encounter - Ruben Temple - 11/30/2021 5:32 PM EST 02-21-2022 Colon EGD, 02-22-2022 UEA and hemorrhoidectomy Patrick until I hear otherwise. * Telephone Encounter - Mimi Lopez - 11/28/2021 9:58 AM EST Patient returned call to schedule upper and lower procedure please call patient to schedule documented in this encounterCleveland Clinic [facility] Hospital08-29-2012 History of Past illness Narrative* Problem Noted Date Resolved Date HTN (hypertension) 05/29/2012 04/04/2016 documented as of this encounter (statuses as of 12/23/2021) [facility] of Past illness Narrative* Problem Noted Date Resolved Date HTN (hypertension) 05/29/2012 04/04/2016 documented as of this encounter (statuses as of 01/23/2022) [facility] of Past illness Narrative* Problem Noted Date Resolved Date HTN (hypertension) 05/29/2012 04/04/2016 documented as of this encounter (statuses as of 01/24/2022) [address] History of Past illness Narrative* Problem Noted Date Resolved Date HTN (hypertension) 05/29/2012 04/04/2016 documented as of this encounter (statuses as of 01/24/2022) [address]29[address]2012 History of Past illness Narrative* Problem Noted Date Resolved Date HTN (hypertension) 05/29/2012 04/04/2016 documented as of this encounter (statuses as of 01/25/2022) [place] [address] History of Past illness Narrative* Problem Noted Date Resolved Date HTN (hypertension) 05/29/2012 04/04/2016 documented as of this encounter (statuses as of 01/27/2022) [address]2012 History of Past illness Narrative* Problem Noted Date Resolved Date HTN (hypertension) 05/29/2012 04/04/2016 documented as of this encounter (statuses as of 01/31/2022) [address]29[address]2012 History of Past illness Narrative* Problem Noted Date Resolved Date HTN (hypertension) 05/29/2012 04/04/2016 documented as of this encounter (statuses as of 02/01/2022) [address]29[address]2012 History of Past illness Narrative* Problem Noted Date Resolved Date HTN (hypertension) 05/29/2012 04/04/2016 documented as of this encounter (statuses as of 02/01/2022) [address]2012 History of Past illness Narrative* Problem Noted Date Resolved Date HTN (hypertension) 05/29/2012 04/04/2016 documented as of this encounter (statuses as of 02/06/2022) [place] [id number] History of Past illness Narrative* Problem Noted Date Resolved Date HTN (hypertension) 05/29/2012 04/04/2016 documented as of this encounter (statuses as of 02/07/2022) [address]2012 History of Past illness Narrative* Problem Noted Date Resolved Date HTN (hypertension) 05/29/2012 04/04/2016 documented as of this encounter (statuses as of 02/08/2022) [address]2012 History of Past illness Narrative* Problem Noted Date Resolved Date HTN (hypertension) 05/29/2012 04/04/2016 documented as of this encounter (statuses as of 02/08/2022) [address]2012 History of Past illness Narrative* Problem Noted Date Resolved Date HTN (hypertension) 05/29/2012 04/04/2016 documented as of this encounter (statuses as of 02/21/2022) [address]2012 History of Past illness Narrative* Problem Noted Date Resolved Date HTN (hypertension) 05/29/2012 04/04/2016 documented as of this encounter (statuses as of 03/01/2022) [place] [id number] History of Past illness Narrative* Problem Noted Date Resolved Date HTN (hypertension) 05/29/2012 04/04/2016 documented as of this encounter (statuses as of 03/06/2022) [place] [address] History of Past illness Narrative* Problem Noted Date Resolved Date HTN (hypertension) 05/29/2012 04/04/2016 documented as of this encounter (statuses as of 03/08/2022) [address]2012 History of Past illness Narrative* Problem Noted Date Resolved Date HTN (hypertension) 05/29/2012 04/04/2016 documented as of this encounter (statuses as of 03/09/2022) [address]2012 History of Past illness Narrative* Problem Noted Date Resolved Date HTN (hypertension) 05/29/2012 04/04/2016 documented as of this encounter (statuses as of 03/20/2022) [address]2012 History of Past illness Narrative* Problem Noted Date Resolved Date HTN (hypertension) 05/29/2012 04/04/2016 documented as of this encounter (statuses as of 03/23/2022) [address]2012 History of Past illness Narrative* Problem Noted Date Resolved Date HTN (hypertension) 05/29/2012 04/04/2016 documented as of this encounter (statuses as of 03/24/2022) [address]2012 History of Past illness Narrative* Problem Noted Date Resolved Date HTN (hypertension) 05/29/2012 04/04/2016 documented as of this encounter (statuses as of 03/28/2022) [address]2012 History of Past illness Narrative* Problem Noted Date Resolved Date HTN (hypertension) 05/29/2012 04/04/2016 documented as of this encounter (statuses as of 04/04/2022) [address]2012 History of Past illness Narrative* Problem Noted Date Resolved Date HTN (hypertension) 05/29/2012 04/04/2016 documented as of this encounter (statuses as of 04/05/2022) [address]2012 History of Past illness Narrative* Problem Noted Date Resolved Date HTN (hypertension) 05/29/2012 04/04/2016 documented as of this encounter (statuses as of 04/08/2022) [address]2012 History of Past illness Narrative* Problem Noted Date Resolved Date HTN (hypertension) 05/29/2012 04/04/2016 documented as of this encounter (statuses as of 04/10/2022) [address]2012 History of Past illness Narrative* Problem Noted Date Resolved Date HTN (hypertension) 05/29/2012 04/04/2016 documented as of this encounter (statuses as of 04/14/2022) [address]2012 History of Past illness Narrative* Problem Noted Date Resolved Date HTN (hypertension) 05/29/2012 04/04/2016 documented as of this encounter (statuses as of 04/24/2022) [address]2012 History of Past illness Narrative* Problem Noted Date Resolved Date HTN (hypertension) 05/29/2012 04/04/2016 documented as of this encounter (statuses as of 04/26/2022) [address]2012 History of Past illness Narrative* Problem Noted Date Resolved Date HTN (hypertension) 05/29/2012 04/04/2016 documented as of this encounter (statuses as of 05/07/2022) [address]2012 History of Past illness Narrative* Problem Noted Date Resolved Date HTN (hypertension) 05/29/2012 04/04/2016 documented as of this encounter (statuses as of 05/09/2022) [address]2012 History of Past illness Narrative* Problem Noted Date Resolved Date HTN (hypertension) 05/29/2012 04/04/2016 documented as of this encounter (statuses as of 05/09/2022) [address]2012 History of Past illness Narrative* Problem Noted Date Resolved Date HTN (hypertension) 05/29/2012 04/04/2016 documented as of this encounter (statuses as of 05/09/2022) [place] [address] History of Past illness Narrative* Problem Noted Date Resolved Date HTN (hypertension) 05/29/2012 04/04/2016 documented as of this encounter (statuses as of 05/11/2022) [address]2012 History of Past illness Narrative* Problem Noted Date Resolved Date HTN (hypertension) 05/29/2012 04/04/2016 documented as of this encounter (statuses as of 05/11/2022) [address]2012 History of Past illness Narrative* Problem Noted Date Resolved Date HTN (hypertension) 05/29/2012 04/04/2016 documented as of this encounter (statuses as of 05/19/2022) [address]2012 History of Past illness Narrative* Problem Noted Date Resolved Date HTN (hypertension) 05/29/2012 04/04/2016 documented as of this encounter (statuses as of 05/24/2022) [address]2012 History of Past illness Narrative* Problem Noted Date Resolved Date HTN (hypertension) 05/29/2012 04/04/2016 documented as of this encounter (statuses as of 05/30/2022) [address]2012 History of Past illness Narrative* Problem Noted Date Resolved Date HTN (hypertension) 05/29/2012 04/04/2016 documented as of this encounter (statuses as of 05/30/2022) [address]2012 History of Past illness Narrative* Problem Noted Date Resolved Date HTN (hypertension) 05/29/2012 04/04/2016 documented as of this encounter (statuses as of 06/06/2022) [address]2012 History of Past illness Narrative* Problem Noted Date Resolved Date HTN (hypertension) 05/29/2012 04/04/2016 documented as of this encounter (statuses as of 06/15/2022) [address]2012 History of Past illness Narrative* Problem Noted Date Resolved Date HTN (hypertension) 05/29/2012 04/04/2016 documented as of this encounter (statuses as of 06/21/2022) [facility] Urinary frequency- Primary Bilirubin in urine Biliuria Abdominal bloating Flatulence, eructation, and gas pain Heartburn Internal hemorrhoid Internal hemorrhoids without mention of complication [facility] Diagnosis Urinary frequency- Primary Essential [...] mention of complication [facility] Diagnosis Acute pain of right shoulder- Primary Fibromyalgia Mylagia and myositis, unspecified Elevated liver enzymes Other nonspecific abnormal serum enzyme levels Diarrhea, unspecified type Internal hemorrhoid Internal hemorrhoids without mention of complication [facility] Diagnosis Acute pain of right shoulder- Primary Internal hemorrhoid Internal hemorrhoids without mention of complication [facility] Diagnosis Liver nodule Other specified disorders of liver Internal hemorrhoid Internal hemorrhoids without mention of complication [facility] Diagnosis Essential hypertension Unspecified essential hypertension Internal hemorrhoid Internal hemorrhoids without mention of complication [facility] Diagnosis Acute pain of right shoulder Internal hemorrhoid Internal hemorrhoids without mention of complication [facility] Diagnosis Liver nodule Other specified disorders of liver Internal hemorrhoid Internal hemorrhoids without mention of complication [facility] Diagnosis Pre-op evaluation- Primary Preoperative examination, [...] mention of complication [facility] Diagnosis Vaginal itching- Primary Pruritus of genital organs Vaginal discharge Leukorrhea, not specified as infective IUD check up Surveillance of previously prescribed intrauterine contraceptive device Internal hemorrhoid Internal hemorrhoids without mention of complication [facility] Diagnosis Constipation, unspecified constipation type Grade III hemorrhoids Unspecified hemorrhoids with other complication Heartburn [facility] Diagnosis Urinary frequency- Primary Burning with urination Dysuria [facility] Diagnosis Urinary frequency- Primary [facility] Diagnosis Grade III hemorrhoids- Primary Unspecified hemorrhoids with other complication Heartburn Constipation, unspecified constipation type [facility] Diagnosis Acute vaginitis- Primary Vaginitis and vulvovaginitis, unspecified Sensation of pressure in bladder area Other specified disorders of bladder Pelvic pain in female Unspecified symptom associated with female genital organs [facility] Diagnosis Skin lesion- Primary Unspecified disorder of skin and subcutaneous tissue Grade III hemorrhoids Unspecified hemorrhoids with other complication [facility] Diagnosis Pain of sternum Chest pain, unspecified Clavicle pain Disorder of bone and cartilage, unspecified [facility] Diagnosis SOB (shortness of breath) Shortness of breath [facility] Diagnosis NO SHOW- Primary [facility] Diagnosis Vaginal discharge- Primary Leukorrhea, not specified as infective Diffuse cystic mastopathy of left breast Diffuse cystic mastopathy Pelvic pain in female Unspecified symptom associated with female genital organs [facility] Diagnosis Chronic right shoulder pain- Primary Pain in joint, shoulder region Chronic pain of right knee [facility] Diagnosis Nodule on liver Other specified disorders of liver [facility] Diagnosis Patellofemoral arthralgia of right knee- Primary Unspecified disorder of lower leg joint [facility] Diagnosis Grade III hemorrhoids- Primary Unspecified hemorrhoids with other complication [facility] Diagnosis Right hand pain- Primary Pain in limb Right wrist pain Pain in joint, forearm [facility] Diagnosis Flu-like symptoms- Primary Other general symptoms Wheezing [facility]* Diagnosis Neck pain- Primary Cervicalgia Chronic midline low back pain without sciatica Chronic neck pain Cervicalgia Lateral epicondylitis, right elbow [facility] Diagnosis Chronic midline low back pain without sciatica- Primary Chronic neck pain Cervicalgia Lateral epicondylitis, right elbow [facility] Diagnosis Primary osteoarthritis of first carpometacarpal joint of right hand- Primary Primary localized osteoarthrosis, hand [facility] Diagnosis Neck pain- Primary Cervicalgia Chronic midline low back pain without sciatica Lateral epicondylitis, right elbow documented in this encounter [facility]* Diagnosis Hyperglycemia- Primary Other abnormal glucose documented in this encounter [facility] note* Diagnosis Bacterial pneumonia- Primary Bacterial pneumonia, unspecified documented in this encounter [facility]* Diagnosis Bacterial pneumonia- Primary Bacterial pneumonia, unspecified documented in this encounter [facility]* Diagnosis Pneumonia of right lower lobe due to infectious organism- Primary Anxiety state Anxiety state, unspecified Perimenopausal Symptomatic menopausal or female climacteric states documented in this encounter [facility] note* Diagnosis Neck pain- Primary Cervicalgia Chronic midline low back pain without sciatica Lateral epicondylitis, right elbow documented in this encounter [facility] note* Diagnosis Neck pain- Primary Cervicalgia Chronic midline low back pain without sciatica Lateral epicondylitis, right elbow documented in this encounter [facility] note* Diagnosis Neck pain- Primary Cervicalgia Chronic midline low back pain without sciatica Lateral epicondylitis, right elbow documented in this encounter [facility] note* Diagnosis Right leg pain- Primary Pain in limb Radiculopathy, lumbar region Thoracic or lumbosacral neuritis or radiculitis, unspecified documented in this encounter [facility]* Diagnosis Radiculopathy, lumbar region- Primary Thoracic or lumbosacral neuritis or radiculitis, unspecified documented in this encounter [facility]* Diagnosis Skin tag- Primary Unspecified hypertrophic and atrophic condition of skin documented in this encounter [facility]* Diagnosis Hymenal remnant- Primary Other specified noninflammatory disorder of vagina documented in this encounter [facility]* Diagnosis Vaginal discharge- Primary Leukorrhea, not specified as infective Vaginal odor Unspecified symptom associated with female genital organs Hymenal remnant Other specified noninflammatory disorder of vagina documented in this encounter [facility] note* Diagnosis Sore throat- Primary Acute pharyngitis documented in this encounter [facility]* Diagnosis OPENED IN ERROR- Primary To allow closing an encounter opened in error (used in SmartSet) documented in this encounter [facility]* Diagnosis Screen for STD (sexually transmitted disease)- Primary Screening examination for venereal disease Vaginal discharge Leukorrhea, not specified as infective documented in this encounter [facility]* Diagnosis Sore throat- Primary Acute pharyngitis Hypertension, essential Unspecified essential hypertension URI, acute Acute upper respiratory infections of unspecified site documented in this encounter [facility]* Diagnosis Low back pain, unspecified back pain laterality, unspecified chronicity, unspecified whether sciatica present- Primary Acute pain of left shoulder Symptoms of upper respiratory infection (URI) documented in this encounter [facility]* Diagnosis Headache, unspecified headache type- Primary Lumbar pain Lumbago Neck pain Cervicalgia Acute pain of left shoulder Concussion without loss of consciousness, subsequent encounter [facility] Diagnosis Acute cough- Primary Sinobronchitis Unspecified sinusitis (chronic) documented in this encounter [facility]* Diagnosis Vulvar cyst- Primary Other specified noninflammatory disorder of vulva and perineum Stress incontinence Female stress incontinence Urge incontinence Pelvic pain in female Unspecified symptom associated with female genital organs documented in this encounter [facility]* Diagnosis Neck pain- Primary Cervicalgia Low back pain, unspecified back pain laterality, unspecified chronicity, unspecified whether sciatica present documented in this encounter [facility]* Diagnosis Mild intermittent asthma with acute exacerbation- Primary Unspecified asthma, with exacerbation documented in this encounter [facility]* Diagnosis Essential hypertension Unspecified essential hypertension documented in this encounter [facility]* Diagnosis Vulvar itching- Primary Pruritus of genital organs [facility]* Diagnosis Low back pain, unspecified back pain laterality, unspecified chronicity, unspecified whether sciatica present- Primary documented in this encounter [facility]* Diagnosis Essential hypertension- Primary Unspecified essential hypertension documented in this encounter [facility]* Diagnosis Essential hypertension Unspecified essential hypertension documented in this encounter [facility]* Diagnosis Acute pain of left shoulder- Primary Urinary frequency Vaginal odor Unspecified symptom associated with female genital organs Screening for STD (sexually transmitted disease) Screening examination for venereal disease [facility]* Diagnosis Vomiting and diarrhea- Primary Vomiting alone Strain of left shoulder, initial encounter documented in this encounter [facility]* Diagnosis Urinary frequency- Primary Microscopic hematuria Chronic left shoulder pain Pain in joint, shoulder region [facility] Diagnosis Headache, unspecified headache type Concussion without loss of consciousness, subsequent encounter documented in this encounter [facility]* Diagnosis Encounter for screening mammogram for breast cancer documented in this encounter [facility]* Diagnosis Abnormal mammogram Abnormal mammogram, unspecified documented in this encounter [facility]* Diagnosis SOB (shortness of breath) Shortness of breath documented in this encounter [facility]* Diagnosis BV (bacterial vaginosis)- Primary Vaginitis and vulvovaginitis, unspecified documented in this encounter [facility] note* Diagnosis Chronic left shoulder pain Pain in joint, shoulder region documented in this encounter [facility]* Diagnosis Dysuria- Primary Vaginal discharge Leukorrhea, not specified as infective Hypertension, essential Unspecified essential hypertension documented in this encounter [facility]* Diagnosis Acute constipation- Primary Unspecified constipation documented in this encounter [facility] for [facility] (narrative)* Diagnostic Procedure Only (Routine) - Authorized Specialty Diagnoses / Procedures Referred By Contac t Referred To Contact US IMAGING Diagnoses Elevated liver enzymes Procedures US ABD RT UPPER QUADRANT US ABDOMINAL REAL TIME W/IMAGE LIMITED Jaguar Cook PA-C [id number] [place] [address] Us Imaging Referral ID Status Reason Start Date Expiration Date Visits Requested Visits Authorized [id number] Authorized Auto-Generat ed Referral 01/27/2022 02/26/2023 1 1 [facility] for referral (narrative)* Diagnostic Procedure Only (Routine) - Closed Specialty Diagnoses / Procedures Referred By Contac t Referred To Contact US IMAGING Diagnoses Elevated liver enzymes Procedures US ABD RT UPPER QUADRANT US ABDOMINAL REAL TIME W/IMAGE LIMITED Jaguar Cook PA-C [address] [place] [address] Us Imaging Referral ID Status Reason Start Date Expiration Date V isits Requested Visits Authorized [id number] Closed Auto-Generate d Referral 01/27/2022 02/26/2023 1 1 [facility] for referral (narrative)* Diagnostic Procedure Only (Routine) - Pending Review Specialty Diagnoses / Procedures Referred By Karen rodriguez Referred To Contact US IMAGING Diagnoses Pelvic pain in female Procedures US FEMALE PELVIS TRANSVAG US TRANSVAGINAL Nohelia Taylor APRN.CERTIFIED WELLNESS PROGRAM MANAGER [address] [place] [address] Us Imaging Referral ID Status Reason Start Date Expiration Date Visits Requested Visits Authorized [id number] Pending Review Auto-Generat ed Referral 02/07/2022 03/09/2023 1 1 * Diagnostic Procedure Only (Routine) - Pending Review Specialty Diagnoses / Procedures Referred By Karen rodriguez Referred To Contact [facility] Diagnoses Encounter for screening mammogram for breast cancer Procedures RONDA SCREENING W CHRIS SCREENING DIGITAL BREAST TOMOSYNTHESIS BI SCREENING MAMMOGRAPHY BI 2-VIEW BREAST INC CAD Nohelia Taylor APRN.CERTIFIED WELLNESS PROGRAM MANAGER [address] [address] [facility] [address] [place] [address] Referral ID Status Reason Start Date Expiration Date Visits Requested Visits Authorized [id number] Pending Review Auto-Generat ed Referral 02/07/2022 03/09/2023 1 1 [facility] for referral (narrative)* Outpatient Procedure (Routine) - Closed Specialty Diagnoses / Procedures Referred By Karen rodriguez Referred To Contact [facility] Diagnoses Constipation, unspecified constipation type Grade III hemorrhoids Heartburn Procedures EGD DIAGNOSTIC EGD W/O OR W/BRUSH/WASH Nohemi Kulkarni MD [address] [place] [address] [facility] [address] [place] [address] Referral ID Status Reason Start Date Expiration Date V isits Requested Visits Authorized [id number] Closed Auto-Generate d Referral 10/18/2021 10/18/2022 1 1 * Outpatient Procedure (Routine) - Closed Specialty Diagnoses / Procedures Referred By Karen rodriguez Referred To Contact [facility] Diagnoses Constipation, unspecified constipation type Grade III hemorrhoids Procedures COLONOSCOPY DIAGNOSTIC COLONOSCOP W/ OR W/O [facility] SPEC Nohemi Kulkarni MD [address] [place] [address] [facility] [address] [place] [address] Referral ID Status Reason Start Date Expiration Date V isits Requested Visits Authorized [id number] Closed Auto-Generate d Referral 10/18/2021 10/18/2022 1 1 [facility] for referral (narrative)* Diagnostic Procedure Only (Routine) - Pending Review Specialty Diagnoses / Procedures Referred By Karen rodriguez Referred To Contact [facility] Diagnoses Diffuse cystic mastopathy of left breast Procedures US BREAST LTD LT US BREAST UNI REAL TIME WITH IMAGE LIMITED Karina Glod APRN.CNM [address] [place] [address] [facility] [address] [place] [address] Referral ID Status Reason Start Date Expiration Date Visits Requested Visits Authorized [id number] Pending Review Auto-Generat ed Referral 08/09/2022 09/08/2023 1 1 * Diagnostic Procedure Only (Routine) - Pending Review Specialty Diagnoses / Procedures Referred By Karen rodriguez Referred To Contact [facility] Diagnoses Diffuse cystic mastopathy of left breast Procedures RONDA DIAGNOSTIC BILAT DIAGNOSTIC MAMMOGRAPHY COMPUTER-AIDED DETCJ BI Karina Gold APRN.CNM [address] [place] [address] [facility] [address] [place] [address] Referral ID Status Reason Start Date Expiration Date Visits Requested Visits Authorized [id number] Pending Review Auto-Generat ed Referral 08/09/2022 09/08/2023 1 1 * Diagnostic Procedure Only (Routine) - Pending Review Specialty Diagnoses / Procedures Referred By Contac t Referred To Contact US IMAGING Diagnoses Diffuse cystic mastopathy of left breast Procedures US FEMALE PELVIS TRANSVAG US TRANSVAGINAL Karina Gold APRN.CNM [address] [place] [address] Us Imaging Referral ID Status Reason Start Date Expiration Date Visits Requested Visits Authorized [id number] Pending Review Auto-Generat ed Referral 08/09/2022 09/08/2023 1 1 [facility] for referral (narrative)* Outpatient Procedure (Routine) - Pending Review Specialty Diagnoses / Procedures Referred By Contac t Referred To Contact [facility] Diagnoses Chronic pain of right knee Procedures US LEG VEIN DVT UNL VAS LAB DUP-SCAN XTR VEINS UNILATERAL/LIMITED STUDY Jennifer Whitfield APRN.CERTIFIED WELLNESS PROGRAM MANAGER [address] [place] [address] [facility] [address] [place] [address] Referral ID Status Reason Start Date Expiration Date Visits Requested Visits Authorized [id number] Pending Review Auto-Generat ed Referral 08/09/2022 08/09/2023 1 1 * Physical Therapy (Routine) - Pending Review Specialty Diagnoses / Procedures Referred By Contac t Referred To Contact [facility] Diagnoses Chronic right shoulder pain Procedures CONSULT TO PHYSICAL THERAPY PHYSICAL THERAPY EVALUATION HIGH COMPLEX 45 MINS Jennifer Whitfield APRN.CERTIFIED WELLNESS PROGRAM MANAGER [address] [place] [address] [facility] [address] [place] [address] Referral ID Status Reason Start Date Expiration Date Visits Requested Visits Authorized [id number] Pending Review Auto-Generat ed Referral 08/09/2022 08/09/2023 1 1 * Diagnostic Procedure Only (Routine) - Pending Review Specialty Diagnoses / Procedures Referred By Contac t Referred To Contact XR IMAGING Diagnoses Chronic pain of right knee Procedures XR KNEE GENERAL 4V AP BOTH/PA BOTH/LAT/MERC RIGHT RADIOLOGIC EXAM KNEE COMPLETE 4/MORE VIEWS Jennifer Whitfield ROAD DESIGN DRAFTSPERSON.CERTIFIED WELLNESS PROGRAM MANAGER [address] [place] [address] Xr Imaging Referral ID Status Reason Start Date Expiration Date Visits Requested Visits Authorized [id number] Pending Review Auto-Generat ed Referral 08/09/2022 09/08/2023 1 1 [facility] for referral (narrative)* Diagnostic Procedure Only (Routine) - Closed Specialty Diagnoses / Procedures Referred By Contac t Referred To Contact XR IMAGING Diagnoses Primary osteoarthritis of first carpometacarpal joint of right hand Procedures XR HAND GENERAL 3V PA/LAT/OBL RIGHT RADEX HAND MINIMUM 3 VIEWS Jonah Ibrahim MD [address] [place] [address] Xr Imaging Referral ID Status Reason Start Date Expiration Date V isits Requested Visits Authorized [id number] Closed Auto-Generate d Referral 10/09/2022 2023 1 1 [facility] for referral (narrative)* Diagnostic Procedure Only (Urgent) - Closed Specialty Diagnoses / Procedures Referred By Contac t Referred To Contact XR IMAGING Diagnoses Acute pain of left shoulder Procedures XR SHOULDER GENERAL 3V OR MORE AP/TRUE AP/OTHER LEFT RADEX SHOULDER COMPLETE MINIMUM 2 VIEWS Moriah Hutchison APRN.CERTIFIED WELLNESS PROGRAM MANAGER [address] [place] [address] [place] [address] Referral ID Status Reason Start Date Expiration Date V isits Requested Visits Authorized [id number] Closed Auto-Generate d Referral 07/11/2023 08/09/2024 1 1 [facility] for referral (narrative)* Diagnostic Procedure Only (Routine) - Closed Specialty Diagnoses / Procedures Referred By Karen t Referred To Contact BR IMAGING Diagnoses Encounter for screening mammogram for breast cancer Procedures RONDA SCREENING W CHRIS SCREENING DIGITAL BREAST TOMOSYNTHESIS BI SCREENING MAMMOGRAPHY BI 2-VIEW BREAST INC CAD Nohelia Taylor APRN.CERTIFIED WELLNESS PROGRAM MANAGER [address] [place] [address] [facility] [address] [place] [address] Referral ID Status Reason Start Date Expiration Date V isits Requested Visits Authorized [id number] Closed Auto-Generate d Referral 02/07/2022 03/09/2023 1 1 [facility] for referral (narrative)* Diagnostic Procedure Only (Routine) - Closed Specialty Diagnoses / Procedures Referred By Karen rodriguez Referred To Contact [facility] Diagnoses Abnormal mammogram Procedures US BREAST LTD LT US BREAST UNI REAL TIME WITH IMAGE LIMITED Nohelia Taylor APRN.CERTIFIED WELLNESS PROGRAM MANAGER [address] [place] [address] [facility] [address] [place] [address] Referral ID Status Reason Start Date Expiration Date V isits Requested Visits Authorized [id number] Closed Auto-Generate d Referral 12/11/2022 01/10/2024 1 1 * Diagnostic Procedure Only (Routine) - Closed Specialty Diagnoses / Procedures Referred By Karen t Referred To Contact BR IMAGING Diagnoses Abnormal mammogram Procedures US BREAST LTD RT US BREAST UNI REAL TIME WITH IMAGE LIMITED Nohelia Taylor APRN.CERTIFIED WELLNESS PROGRAM MANAGER [address] [place] [address] [facility] [address] [place] [address] Referral ID Status Reason Start Date Expiration Date V isits Requested Visits Authorized [id number] Closed Auto-Generate d Referral 12/11/2022 01/10/2024 1 1 [facility] for referral (narrative)* Diagnostic Procedure Only (Urgent) - Closed Specialty Diagnoses / Procedures Referred By Karen rodriguez Referred To Contact XR IMAGING Diagnoses Acute constipation Procedures XR ABDOMEN 1V SUPINE RADIOLOGIC EXAM ABDOMEN 1 VIEW Moriah Hutchison APRN.CNP [address] [place] [address] [place] [address] Referral ID Status Reason Start Date Expiration Date V isits Requested Visits Authorized [id number] Closed Auto-Generate d Referral 12/07/2023 01/05/2025 1 1 [facility] for visit Narrative* Outpatient Procedure (Routine) - Closed Specialty Diagnoses / Procedures Referred By Karen rodriguez Referred To Contact [facility] Diagnoses Constipation, unspecified constipation type Grade III hemorrhoids Heartburn Procedures EGD DIAGNOSTIC EGD W/O OR W/BRUSH/WASH Nohemi Kulkarni MD [address] [place] [address] [facility] [address] [place] [address] Referral ID Status Reason Start Date Expiration Date V isits Requested Visits Authorized [id number] Closed Auto-Generate d Referral 10/18/2021 10/18/2022 1 1 [facility] for visit Narrative* Diagnostic Procedure Only (Routine) - Closed Specialty Diagnoses / Procedures Referred By Karen rodriguez Referred To Contact BR IM[facility] Diagnoses Encounter for screening mammogram for breast cancer Procedures RONDA SCREENING W CHRIS SCREENING DIGITAL BREAST TOMOSYNTHESIS BI SCREENING MAMMOGRAPHY BI 2-VIEW BREAST INC Nohelia Schneider APRN.CNP [address] [place] [address] [facility] [address] [place] [address] Referral ID Status Reason Start Date Expiration Date V isits Requested Visits Authorized [id number] Closed Auto-Generate d Referral 02/07/2022 03/09/2023 1 1 [facility] Summary Purpose Family History No Family History Records FoundNo Family History Records FoundNo Family History Records FoundNo Family History Records FoundNo Family History Records Found Advance Directives No Advanced Directives Records FoundDocuments on File Type Date Recorded 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 Advance Directive(s) 11/09/2020 11:18 AM Advance Directive(s) 06/28/2020 12:46 PM Advance Directive(s) 11/22/2017 8:54 AM Documents on File Type Date Recorded 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 Advance Directive(s) 01/26/2022 1:39 PM Advance Directive(s) 11/09/2020 11:18 AM Advance Directive(s) 06/28/2020 12:46 PM Advance Directive(s) 11/22/2017 8:54 AM Documents on File Type Date Recorded 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 Advance Directive(s) 01/26/2022 1:39 PM Advance Directive(s) 11/09/2020 11:18 AM Advance Directive(s) 06/28/2020 12:46 PM Advance Directive(s) 11/22/2017 8:54 AM Documents on File Type Date Recorded 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 Advance Directive(s) 04/13/2022 9:39 AM Advance Directive(s) 01/26/2022 1:39 PM Advance Directive(s) 11/09/2020 11:18 AM Advance Directive(s) 06/28/2020 12:46 PM Advance Directive(s) 11/22/2017 8:54 AM Documents on File Type Date Recorded 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 Advance Directive(s) 04/13/2022 9:39 AM Advance Directive(s) 01/26/2022 1:39 PM Advance Directive(s) 11/09/2020 11:18 AM Advance Directive(s) 06/28/2020 12:46 PM Advance Directive(s) 11/22/2017 8:54 AM Reason for Referral Specialty Diagnoses / Procedures Referred By Contac t Referred To Contact MR IMAGING Diagnoses Liver nodule Procedures MRI LIVER WO/W IVCON MRI ABDOMEN W/O & W/CONTRAST MATERIAL Jaguar Cook PA-C [address] [place] [address] Mr Imaging Referral ID Status Reason Start Date Expiration Date Visits Requested Visits Authorized [id number] Pending Review Auto-Generat ed Referral 02/01/2022 03/03/2023 1 1 Specialty Diagnoses / Procedures Referred By Contac t Referred To Contact Diagnoses SOB (shortness of breath) Jaguar Cook PA-C [address] [place] [address] Referral ID Status Reason Start Date Expiration Date Visits Re quested Visits Authorized [id number] Closed 1 1 Specialty Diagnoses / Procedures Referred By Contac t Referred To Contact Orthopedics Diagnoses Acute pain of right shoulder Procedures CONSULT TO ORTHOPAEDICS OFFICE/OUTPATIENT [facility] MDM 60-74 MINUTES Shawn Uribe MD [address] [place] [address] Referral ID Status Reason Start Date Expiration Date Visits Requested Visits Authorized [id number] Authorized PCP Requested Referral 03/06/2022 03/06/2023 1 1 Specialty Diagnoses / Procedures Referred By Contac t Referred To Contact [facility] Diagnoses Acute pain of right shoulder Procedures CONSULT TO PHYSICAL THERAPY PHYSICAL THERAPY EVALUATION HIGH COMPLEX 45 MINS Jaguar Cook PA-C [address] [place] [address] [facility] [address] [place] [address] Referral ID Status Reason Start Date Expiration Date Visits Requested Visits Authorized [id number] Pending Review Auto-Generat ed Referral 03/23/2022 03/23/2023 1 1 Specialty Diagnoses / Procedures Referred By Contac t Referred To Contact MR IMAGING Diagnoses Liver nodule K76.89 (ICD-10-CM) - Liver nodule Procedures MRI LIVER WO/W IVCON MRI ABDOMEN W/O & W/CONTRAST MATERIAL MRI LIVER WO/W IVCON Jaguar Cook PA-C [address] [place] [address] Mr Imaging Referral ID Status Reason Start Date Expiration Date V isits Requested Visits Authorized [id number] Closed Auto-Generate d Referral 03/01/2022 04/30/2022 1 1 Specialty Diagnoses / Procedures Referred By Contac t Referred To Contact [facility] Diagnoses Acute pain of right shoulder Procedures PT REHAB FOLLOW UP ORDER THERAPEUTIC EXERCISES RE, EA 15 MIN. Pt [facility] [address] [place] [address] [facility] [address] [address] Referral ID Status Reason Start Date Expiration Date Visits Requested Visits Authorized [id number] Pending Review PCP Requested Referral Auto-Generate d Referral 04/05/2022 07/04/2022 1 1 Referral ID Status Reason Start Date Expiration Date Visits Requested Visits Authorized [id number] Pending Review Auto-Generat ed Referral 03/27/2022 04/26/2023 1 1 Referral ID Status Reason Start Date Expiration Date Visits Re quested Visits Authorized [id number] Closed 1 1 Specialty Diagnoses / Procedures Referred By Contac t Referred To Contact [facility] Diagnoses Patellofemoral arthralgia of right knee Procedures CONSULT TO PHYSICAL THERAPY PHYSICAL THERAPY EVALUATION HIGH COMPLEX 45 MINS Jaguar Cook PA-C [address] [place] [address] [facility] [address] [address] Referral ID Status Reason Start Date Expiration Date Visits Requested Visits Authorized [id number] Pending Review Auto-Generat ed Referral 2 08/15/2023 1 1 Specialty Diagnoses / Procedures Referred By Contac t Referred To Contact Orthopedics Diagnoses Right hand pain Right wrist pain Procedures CONSULT TO ORTHOPAEDICS OFFICE/OUTPATIENT [facility] MDM 60-74 MINUTES Johnna Martinez PA-C [address] [place] [address] Referral ID Status Reason Start Date Expiration Date Visits Requested Visits Authorized [id number] Authorized PCP Requested Referral 2 09/14/2023 1 1 Specialty Diagnoses / Procedures Referred By Contac t Referred To Contact [facility] Diagnoses Chronic midline low back pain without sciatica Chronic neck pain Lateral epicondylitis, right elbow Neck pain Procedures PT REHAB FOLLOW UP ORDER THERAPEUTIC EXERCISES RE, EA 15 MIN. Pt [facility] [address] [place] [address] [facility] [address] [address] Referral ID Status Reason Start Date Expiration Date Visits Requested Visits Authorized [id number] Pending Review PCP Requested Referral Auto-Generate d Referral 10/17/2022 01/15/2023 1 1 Specialty Diagnoses / Procedures Referred By Contac t Referred To Contact [facility] Diagnoses Chronic midline low back pain without sciatica Chronic neck pain Lateral epicondylitis, right elbow Procedures CONSULT TO PHYSICAL THERAPY PHYSICAL THERAPY EVALUATION HIGH COMPLEX 45 MINS Jaguar Cook PA-C [address] [place] [address] [facility] [address] [address] Referral ID Status Reason Start Date Expiration Date Visits Requested Visits Authorized [id number] Authorized Auto-Generat ed Referral 09/05/2022 09/05/2023 1 1 Specialty Diagnoses / Procedures Referred By Contac t Referred To Contact Diagnoses Anxiety state Perimenopausal Jaguar Cook PA-C [address] [place] [address] Referral ID Status Reason Start Date Expiration Date Visits Re quested Visits Authorized [id number] Closed 1 1 Specialty Diagnoses / Procedures Referred By Contact Referred To Contact [facility] Diagnoses Radiculopathy, lumbar region Procedures CONSULT TO PAIN MGT OFFICE/OUTPATIENT [facility] MDM 60-74 MINUTES Agnieszka Villagomez PA-C [address] [place] [address] Lona Stewart, ROAD DESIGN DRAFTSPERSON.CERTIFIED WELLNESS PROGRAM MANAGER [address] [place] [address] Referral ID Status Reason Start Date Expiration Date V isits Requested Visits Authorized [id number] Closed PCP Requested Referral 12/01/2022 12/01/2023 1 1 Specialty Diagnoses / Procedures Referred By Contac t Referred To Contact [facility] Diagnoses Low back pain, unspecified back pain laterality, unspecified chronicity, unspecified whether sciatica present Acute pain of left shoulder Procedures CONSULT TO PHYSICAL THERAPY PHYSICAL THERAPY EVALUATION HIGH COMPLEX 45 MINS Jennifer Whitfield APRN.CERTIFIED WELLNESS PROGRAM MANAGER [address] [place] [address] [facility] [address] [place] [address] Referral ID Status Reason Start Date Expiration Date Visits Requested Visits Authorized [id number] Pending Review Auto-Generat ed Referral 03/05/2023 03/04/2024 1 1 Specialty Diagnoses / Procedures Referred By Contac t Referred To Contact Neurology Diagnoses Headache, unspecified headache type Concussion without loss of consciousness, subsequent encounter Procedures CONSULT TO NEUROLOGY OFFICE/OUTPATIENT [facility] 60-74 MINUTES Guillermo Lizama MD [address] [place] [address] Referral ID Status Reason Start Date Expiration Date Visits Requested Visits Authorized [id number] Authorized PCP Requested Referral 03/12/2023 03/11/2024 1 1 Specialty Diagnoses / Procedures Referred By Contac t Referred To Contact MR IMAGING Diagnoses Headache, unspecified headache type Concussion without loss of consciousness, subsequent encounter Procedures MRI BRAIN WO IVCON MRI BRAIN BRAIN STEM W/O CONTRAST MATERIAL Guillermo Lizama MD [address] [place] [address] Mr Imaging Referral ID Status Reason Start Date Expiration Date Visits Requested Visits Authorized [id number] Pending Review Auto-Generat ed Referral 03/12/2023 04/10/2024 1 1 Specialty Diagnoses / Procedures Referred By Contac t Referred To Contact [facility] Diagnoses Neck pain Procedures CONSULT TO PHYSICAL THERAPY PHYSICAL THERAPY EVALUATION HIGH COMPLEX [place] [address] [place] [address] [facility] [address] [place] [address] Referral ID Status Reason Start Date Expiration Date Visits Requested Visits Authorized [id number] Pending Review Auto-Generat ed Referral 03/12/2023 03/11/2024 1 1 Specialty Diagnoses / Procedures Referred By Contac t Referred To Contact XR IMAGING Diagnoses Lumbar pain Procedures XR LUMBAR GENERAL 3V AP/LAT/L5-S1 RADEX SPINE LUMBOSACRAL 2/3 VIEWS Guillermo Lizama MD [address] [place] [address] Xr Imaging Referral ID Status Reason Start Date Expiration Date Visits Requested Visits Authorized [id number] Authorized Auto-Generat ed Referral 03/12/2023 04/10/2024 1 1 Specialty Diagnoses / Procedures Referred By Contac t Referred To Contact [facility] Diagnoses Stress incontinence Urge incontinence Procedures CONSULT TO PHYSICAL THERAPY PHYSICAL THERAPY EVALUATION HIGH COMPLEX 45 MINS Nohelia Taylor, ROAD DESIGN DRAFTSPERSON.CERTIFIED WELLNESS PROGRAM MANAGER [address] [facility] [place] [address] [facility] [address] [place] [address] Referral ID Status Reason Start Date Expiration Date Visits Requested Visits Authorized [id number] Pending Review Auto-Generat ed Referral 03/20/2023 03/19/2024 1 1 Specialty Diagnoses / Procedures Referred By Contac t Referred To Contact XR IMAGING Diagnoses Pelvic pain in female Procedures XR PELVIS 2V INLET/OUTLET RADIOLOGIC EXAMINATION PELVIS 1/2 VIEWS Nohelia Taylor, ROAD DESIGN DRAFTSPERSON.CERTIFIED WELLNESS PROGRAM MANAGER [address] [place] [address] Xr Imaging Referral ID Status Reason Start Date Expiration Date V isits Requested Visits Authorized [id number] Closed Auto-Generate d Referral 03/20/2023 04/18/2024 1 1 Specialty Diagnoses / Procedures Referred By Contac t Referred To Contact [facility] Diagnoses Low back pain, unspecified back pain laterality, unspecified chronicity, unspecified whether sciatica present Neck pain Procedures PT REHAB FOLLOW UP ORDER THERAPEUTIC EXERCISES RE, EA 15 MIN. Karina Rankin, PT [facility] [address] [place] [address] Referral ID Status Reason Start Date Expiration Date Visits Requested Visits Authorized [id number] Pending Review PCP Requested Referral Auto-Generate d Referral 03/20/2023 06/18/2023 1 1 Specialty Diagnoses / Procedures Referred By Contac t Referred To Contact Orthopedics Diagnoses Chronic left shoulder pain Procedures CONSULT TO ORTHOPAEDICS OFFICE/OUTPATIENT [facility] MDM 60-74 MINUTES Yeison Ignacio PA-C [address] [place] [address] Referral ID Status Reason Start Date Expiration Date Visits Requested Visits Authorized [id number] Authorized PCP Requested Referral 07/25/2024 1 1 Specialty Diagnoses / Procedures Referred By Brianaac t Referred To Contact MR IMAGING Diagnoses Headache, unspecified headache type Concussion without loss of consciousness, subsequent encounter Procedures MRI BRAIN WO IVCON MRI BRAIN BRAIN STEM W/O CONTRAST MATERIAL Guillermo Lizama MD [address] [place] [address] [place] [address] Referral ID Status Reason Start Date Expiration Date V isits Requested Visits Authorized [id number] Closed Auto-Generate d Referral 04/04/2023 06/03/2023 1 1 Medications Administered Section Inactive Administered Medications - up to 3 most recent administrations Medication Order MAR Action Action Date Dose Rate Site benzocaine 20% 1 [place] (TOPEX) 1 [place], TOPICAL, DIRECTED, Starting on Sun04/25/22 at 1000, [...] DATE CREATED AUTHOR AUTHOR'S ORGANIZ ATION 03/22/2018 [facility] DATE CREATED AUTHOR AUTHOR'S ORGANIZ ATION 03/22/2018 [facility] DATE CREATED AUTHOR AUTHOR'S ORGANIZ ATION 04/27/2022 [facility] DATE CREATED AUTHOR AUTHOR'S ORGANIZ ATION 12/08/2023 [facility] Source Comments (unrecognize d section and content) In the event this informatio n is protected by the Federal Confidentiality of Alcohol and Drug Abuse Patient Records regulations: The Federal rules restrict any use of the information to criminally investigate or prosecute any alcohol or drug abuse patient.[facility] the event this information is protected by the Federal Confidentiality of Alcohol and Drug Abuse Patient Records regulations: The Federal rules restrict any use of the information to criminally investigate or prosecute any alcohol or drug abuse patient.[facility] the event this information is protected by the Federal Confidentiality of Alcohol and Drug Abuse Patient Records regulations: The Federal rules restrict any use of the information to criminally investigate or prosecute any alcohol or drug abuse patient.[facility] Hospital[facility] the event this information is protected by the Federal Confidentiality of Alcohol and Drug Abuse Patient Records regulations: The Federal rules restrict any use of the information to criminally investigate or prosecute any alcohol or drug abuse patient.[facility] the event this information is protected by the Federal Confidentiality of Alcohol and Drug Abuse Patient Records regulations: The Federal rules restrict any use of the information to criminally investigate or prosecute any alcohol or drug abuse patient.[facility] Hospital[facility] the event this information is protected by the Federal Confidentiality of Alcohol and Drug Abuse Patient Records regulations: The Federal rules restrict any use of the information to criminally investigate or prosecute any alcohol or drug abuse patient.[facility] Hospital[facility] the event this information is protected by the Federal Confidentiality of Alcohol and Drug Abuse Patient Records regulations: The Federal rules restrict any use of the information to criminally investigate or prosecute any alcohol or drug abuse patient.[facility] the event this information is protected by the Federal Confidentiality of Alcohol and Drug Abuse Patient Records regulations: The Federal rules restrict any use of the information to criminally investigate or prosecute any alcohol or drug abuse patient.[facility] the event this information is protected by the Federal Confidentiality of Alcohol and Drug Abuse Patient Records regulations: The Federal rules restrict any use of the information to criminally investigate or prosecute any alcohol or drug abuse patient.[facility] Hospital[facility] the event this information is protected by the Federal Confidentiality of Alcohol and Drug Abuse Patient Records regulations: The Federal rules restrict any use of the information to criminally investigate or prosecute any alcohol or drug abuse patient.[facility] Hospital[facility] the event this information is protected by the Federal Confidentiality of Alcohol and Drug Abuse Patient Records regulations: The Federal rules restrict any use of the information to criminally investigate or prosecute any alcohol or drug abuse patient.[facility] Hospital[facility] the event this information is protected by the Federal Confidentiality of Alcohol and Drug Abuse Patient Records regulations: The Federal rules restrict any use of the information to criminally investigate or prosecute any alcohol or drug abuse patient.[facility] Hospital[facility] the event this information is protected by the Federal Confidentiality of Alcohol and Drug Abuse Patient Records regulations: The Federal rules restrict any use of the information to criminally investigate or prosecute any alcohol or drug abuse patient.[facility] Hospital[facility] the event this information is protected by the Federal Confidentiality of Alcohol and Drug Abuse Patient Records regulations: The Federal rules restrict any use of the information to criminally investigate or prosecute any alcohol or drug abuse patient.[facility] the event this information is protected by the Federal Confidentiality of Alcohol and Drug Abuse Patient Records regulations: The Federal rules restrict any use of the information to criminally investigate or prosecute any alcohol or drug abuse patient.[facility]In the event this information is protected by the Federal Confidentiality of Alcohol and Drug Abuse Patient Records regulations: The Federal rules restrict any use of the information to criminally investigate or prosecute any alcohol or drug abuse patient.[facility]In the event this information is protected by the Federal Confidentiality of Alcohol and Drug Abuse Patient Records regulations: The Federal rules restrict any use of the information to criminally investigate or prosecute any alcohol or drug abuse patient.[facility] HospitalIn the event this information is protected by the Federal Confidentiality of Alcohol and Drug Abuse Patient Records regulations: The Federal rules restrict any use of the information to criminally investigate or prosecute any alcohol or drug abuse patient.[facility] HospitalIn the event this information is protected by the Federal Confidentiality of Alcohol and Drug Abuse Patient Records regulations: The Federal rules restrict any use of the information to criminally investigate or prosecute any alcohol or drug abuse patient.[facility] HospitalIn the event this information is protected by the Federal Confidentiality of Alcohol and Drug Abuse Patient Records regulations: The Federal rules restrict any use of the information to criminally investigate or prosecute any alcohol or drug abuse patient.[facility]In the event this information is protected by the Federal Confidentiality of Alcohol and Drug Abuse Patient Records regulations: The Federal rules restrict any use of the information to criminally investigate or prosecute any alcohol or drug abuse patient.[facility] HospitalIn the event this information is protected by the Federal Confidentiality of Alcohol and Drug Abuse Patient Records regulations: The Federal rules restrict any use of the information to criminally investigate or prosecute any alcohol or drug abuse patient.[facility] HospitalIn the event this information is protected by the Federal Confidentiality of Alcohol and Drug Abuse Patient Records regulations: The Federal rules restrict any use of the information to criminally investigate or prosecute any alcohol or drug abuse patient.[facility] HospitalIn the event this information is protected by the Federal Confidentiality of Alcohol and Drug Abuse Patient Records regulations: The Federal rules restrict any use of the information to criminally investigate or prosecute any alcohol or drug abuse patient.[facility] HospitalIn the event this information is protected by the Federal Confidentiality of Alcohol and Drug Abuse Patient Records regulations: The Federal rules restrict any use of the information to criminally investigate or prosecute any alcohol or drug abuse patient.[facility] HospitalIn the event this information is protected by the Federal Confidentiality of Alcohol and Drug Abuse Patient Records regulations: The Federal rules restrict any use of the information to criminally investigate or prosecute any alcohol or drug abuse patient.[facility]In the event this information is protected by the Federal Confidentiality of Alcohol and Drug Abuse Patient Records regulations: The Federal rules restrict any use of the information to criminally investigate or prosecute any alcohol or drug abuse patient.[facility] HospitalIn the event this information is protected by the Federal Confidentiality of Alcohol and Drug Abuse Patient Records regulations: The Federal rules restrict any use of the information to criminally investigate or prosecute any alcohol or drug abuse patient.[facility] HospitalIn the event this information is protected by the Federal Confidentiality of Alcohol and Drug Abuse Patient Records regulations: The Federal rules restrict any use of the information to criminally investigate or prosecute any alcohol or drug abuse patient.[facility] HospitalIn the event this information is protected by the Federal Confidentiality of Alcohol and Drug Abuse Patient Records regulations: The Federal rules restrict any use of the information to criminally investigate or prosecute any alcohol or drug abuse patient.[facility] HospitalIn the event this information is protected by the Federal Confidentiality of Alcohol and Drug Abuse Patient Records regulations: The Federal rules restrict any use of the information to criminally investigate or prosecute any alcohol or drug abuse patient.[facility] HospitalIn the event this information is protected by the Federal Confidentiality of Alcohol and Drug Abuse Patient Records regulations: The Federal rules restrict any use of the information to criminally investigate or prosecute any alcohol or drug abuse patient.[facility] HospitalIn the event this information is protected by the Federal Confidentiality of Alcohol and Drug Abuse Patient Records regulations: The Federal rules restrict any use of the information to criminally investigate or prosecute any alcohol or drug abuse patient.[facility] HospitalIn the event this information is protected by the Federal Confidentiality of Alcohol and Drug Abuse Patient Records regulations: The Federal rules restrict any use of the information to criminally investigate or prosecute any alcohol or drug abuse patient.[facility] HospitalIn the event this information is protected by the Federal Confidentiality of Alcohol and Drug Abuse Patient Records regulations: The Federal rules restrict any use of the information to criminally investigate or prosecute any alcohol or drug abuse patient.[facility] HospitalIn the event this information is protected by the Federal Confidentiality of Alcohol and Drug Abuse Patient Records regulations: The Federal rules restrict any use of the information to criminally investigate or prosecute any alcohol or drug abuse patient.[facility] HospitalIn the event this information is protected by the Federal Confidentiality of Alcohol and Drug Abuse Patient Records regulations: The Federal rules restrict any use of the information to criminally investigate or prosecute any alcohol or drug abuse patient.[facility] HospitalIn the event this information is protected by the Federal Confidentiality of Alcohol and Drug Abuse Patient Records regulations: The Federal rules restrict any use of the information to criminally investigate or prosecute any alcohol or drug abuse patient.[facility] HospitalIn the event this information is protected by the Federal Confidentiality of Alcohol and Drug Abuse Patient Records regulations: The Federal rules restrict any use of the information to criminally investigate or prosecute any alcohol or drug abuse patient.[facility] HospitalIn the event this information is protected by the Federal Confidentiality of Alcohol and Drug Abuse Patient Records regulations: The Federal rules restrict any use of the information to criminally investigate or prosecute any alcohol or drug abuse patient.[facility] HospitalIn the event this information is protected by the Federal Confidentiality of Alcohol and Drug Abuse Patient Records regulations: The Federal rules restrict any use of the information to criminally investigate or prosecute any alcohol or drug abuse patient.[facility] HospitalIn the event this information is protected by the Federal Confidentiality of Alcohol and Drug Abuse Patient Records regulations: The Federal rules restrict any use of the information to criminally investigate or prosecute any alcohol or drug abuse patient.[facility] HospitalIn the event this information is protected by the Federal Confidentiality of Alcohol and Drug Abuse Patient Records regulations: The Federal rules restrict any use of the information to criminally investigate or prosecute any alcohol or drug abuse patient.[facility] HospitalIn the event this information is protected by the Federal Confidentiality of Alcohol and Drug Abuse Patient Records regulations: The Federal rules restrict any use of the information to criminally investigate or prosecute any alcohol or drug abuse patient.[facility] HospitalIn the event this information is protected by the Federal Confidentiality of Alcohol and Drug Abuse Patient Records regulations: The Federal rules restrict any use of the information to criminally investigate or prosecute any alcohol or drug abuse patient.[facility] HospitalIn the event this information is protected by the Federal Confidentiality of Alcohol and Drug Abuse Patient Records regulations: The Federal rules restrict any use of the information to criminally investigate or prosecute any alcohol or drug abuse patient.[facility] HospitalIn the event this information is protected by the Federal Confidentiality of Alcohol and Drug Abuse Patient Records regulations: The Federal rules restrict any use of the information to criminally investigate or prosecute any alcohol or drug abuse patient.[facility] HospitalIn the event this information is protected by the Federal Confidentiality of Alcohol and Drug Abuse Patient Records regulations: The Federal rules restrict any use of the information to criminally investigate or prosecute any alcohol or drug abuse patient.[facility] HospitalIn the event this information is protected by the Federal Confidentiality of Alcohol and Drug Abuse Patient Records regulations: The Federal rules restrict any use of the information to criminally investigate or prosecute any alcohol or drug abuse patient.[facility]In the event this information is protected by the Federal Confidentiality of Alcohol and Drug Abuse Patient Records regulations: The Federal rules restrict any use of the information to criminally investigate or prosecute any alcohol or drug abuse patient.[facility]In the event this information is protected by the Federal Confidentiality of Alcohol and Drug Abuse Patient Records regulations: The Federal rules restrict any use of the information to criminally investigate or prosecute any alcohol or drug abuse patient.[facility] HospitalIn the event this information is protected by the Federal Confidentiality of Alcohol and Drug Abuse Patient Records regulations: The Federal rules restrict any use of the information to criminally investigate or prosecute any alcohol or drug abuse patient.[facility] HospitalIn the event this information is protected by the Federal Confidentiality of Alcohol and Drug Abuse Patient Records regulations: The Federal rules restrict any use of the information to criminally investigate or prosecute any alcohol or drug abuse patient.[facility] HospitalIn the event this information is protected by the Federal Confidentiality of Alcohol and Drug Abuse Patient Records regulations: The Federal rules restrict any use of the information to criminally investigate or prosecute any alcohol or drug abuse patient.[facility] HospitalIn the event this information is protected by the Federal Confidentiality of Alcohol and Drug Abuse Patient Records regulations: The Federal rules restrict any use of the information to criminally investigate or prosecute any alcohol or drug abuse patient.[facility] HospitalIn the event this information is protected by the Federal Confidentiality of Alcohol and Drug Abuse Patient Records regulations: The Federal rules restrict any use of the information to criminally investigate or prosecute any alcohol or drug abuse patient.[facility] HospitalIn the event this information is protected by the Federal Confidentiality of Alcohol and Drug Abuse Patient Records regulations: The Federal rules restrict any use of the information to criminally investigate or prosecute any alcohol or drug abuse patient.[facility] HospitalIn the event this information is protected by the Federal Confidentiality of Alcohol and Drug Abuse Patient Records regulations: The Federal rules restrict any use of the information to criminally investigate or prosecute any alcohol or drug abuse patient.[facility] HospitalIn the event this information is protected by the Federal Confidentiality of Alcohol and Drug Abuse Patient Records regulations: The Federal rules restrict any use of the information to criminally investigate or prosecute any alcohol or drug abuse patient.[facility] HospitalIn the event this information is protected by the Federal Confidentiality of Alcohol and Drug Abuse Patient Records regulations: The Federal rules restrict any use of the information to criminally investigate or prosecute any alcohol or drug abuse patient.[facility] HospitalIn the event this information is protected by the Federal Confidentiality of Alcohol and Drug Abuse Patient Records regulations: The Federal rules restrict any use of the information to criminally investigate or prosecute any alcohol or drug abuse patient.[facility] HospitalIn the event this information is protected by the Federal Confidentiality of Alcohol and Drug Abuse Patient Records regulations: The Federal rules restrict any use of the information to criminally investigate or prosecute any alcohol or drug abuse patient.[facility] HospitalIn the event this information is protected by the Federal Confidentiality of Alcohol and Drug Abuse Patient Records regulations: The Federal rules restrict any use of the information to criminally investigate or prosecute any alcohol or drug abuse patient.[facility] HospitalIn the event this information is protected by the Federal Confidentiality of Alcohol and Drug Abuse Patient Records regulations: The Federal rules restrict any use of the information to criminally investigate or prosecute any alcohol or drug abuse patient.[facility] HospitalIn the event this information is protected by the Federal Confidentiality of Alcohol and Drug Abuse Patient Records regulations: The Federal rules restrict any use of the information to criminally investigate or prosecute any alcohol or drug abuse patient.[facility] HospitalIn the event this information is protected by the Federal Confidentiality of Alcohol and Drug Abuse Patient Records regulations: The Federal rules restrict any use of the information to criminally investigate or prosecute any alcohol or drug abuse patient.[facility] HospitalIn the event this information is protected by the Federal Confidentiality of Alcohol and Drug Abuse Patient Records regulations: The Federal rules restrict any use of the information to criminally investigate or prosecute any alcohol or drug abuse patient.[facility] HospitalIn the event this information is protected by the Federal Confidentiality of Alcohol and Drug Abuse Patient Records regulations: The Federal rules restrict any use of the information to criminally investigate or prosecute any alcohol or drug abuse patient.[facility]In the event this information is protected by the Federal Confidentiality of Alcohol and Drug Abuse Patient Records regulations: The Federal rules restrict any use of the information to criminally investigate or prosecute any alcohol or drug abuse patient.[facility] HospitalIn the event this information is protected by the Federal Confidentiality of Alcohol and Drug Abuse Patient Records regulations: The Federal rules restrict any use of the information to criminally investigate or prosecute any alcohol or drug abuse patient.[facility]In the event this information is protected by the Federal Confidentiality of Alcohol and Drug Abuse Patient Records regulations: The Federal rules restrict any use of the information to criminally investigate or prosecute any alcohol or drug abuse patient.[facility] HospitalIn the event this information is protected by the Federal Confidentiality of Alcohol and Drug Abuse Patient Records regulations: The Federal rules restrict any use of the information to criminally investigate or prosecute any alcohol or drug abuse patient.[facility] HospitalIn the event this information is protected by the Federal Confidentiality of Alcohol and Drug Abuse Patient Records regulations: The Federal rules restrict any use of the information to criminally investigate or prosecute any alcohol or drug abuse patient.[facility]In the event this information is protected by the Federal Confidentiality of Alcohol and Drug Abuse Patient Records regulations: The Federal rules restrict any use of the information to criminally investigate or prosecute any alcohol or drug abuse patient.[facility]In the event this information is protected by the Federal Confidentiality of Alcohol and Drug Abuse Patient Records regulations: The Federal rules restrict any use of the information to criminally investigate or prosecute any alcohol or drug abuse patient.[facility] HospitalIn the event this information is protected by the Federal Confidentiality of Alcohol and Drug Abuse Patient Records regulations: The Federal rules restrict any use of the information to criminally investigate or prosecute any alcohol or drug abuse patient.[facility] HospitalIn the event this information is protected by the Federal Confidentiality of Alcohol and Drug Abuse Patient Records regulations: The Federal rules restrict any use of the information to criminally investigate or prosecute any alcohol or drug abuse patient.[facility]In the event this information is protected by the Federal Confidentiality of Alcohol and Drug Abuse Patient Records regulations: The Federal rules restrict any use of the information to criminally investigate or prosecute any alcohol or drug abuse patient.[facility]In the event this information is protected by the Federal Confidentiality of Alcohol and Drug Abuse Patient Records regulations: The Federal rules restrict any use of the information to criminally investigate or prosecute any alcohol or drug abuse patient.[facility]In the event this information is protected by the Federal Confidentiality of Alcohol and Drug Abuse Patient Records regulations: The Federal rules restrict any use of the information to criminally investigate or prosecute any alcohol or drug abuse patient.[facility]In the event this information is protected by the Federal Confidentiality of Alcohol and Drug Abuse Patient Records regulations: The Federal rules restrict any use of the information to criminally investigate or prosecute any alcohol or drug abuse patient.[facility]In the event this information is protected by the Federal Confidentiality of Alcohol and Drug Abuse Patient Records regulations: The Federal rules restrict any use of the information to criminally investigate or prosecute any alcohol or drug abuse patient.[facility]In the event this information is protected by the Federal Confidentiality of Alcohol and Drug Abuse Patient Records regulations: The Federal rules restrict any use of the information to criminally investigate or prosecute any alcohol or drug abuse patient.[facility]In the event this information is protected by the Federal Confidentiality of Alcohol and Drug Abuse Patient Records regulations: The Federal rules restrict any use of the information to criminally investigate or prosecute any alcohol or drug abuse patient.[facility]In the event this information is protected by the Federal Confidentiality of Alcohol and Drug Abuse Patient Records regulations: The Federal rules restrict any use of the information to criminally investigate or prosecute any alcohol or drug abuse patient.[facility]In the event this information is protected by the Federal Confidentiality of Alcohol and Drug Abuse Patient Records regulations: The Federal rules restrict any use of the information to criminally investigate or prosecute any alcohol or drug abuse patient.[facility]In the event this information is protected by the Federal Confidentiality of Alcohol and Drug Abuse Patient Records regulations: The Federal rules restrict any use of the information to criminally investigate or prosecute any alcohol or drug abuse patient.[facility]In the event this information is protected by the Federal Confidentiality of Alcohol and Drug Abuse Patient Records regulations: The Federal rules restrict any use of the information to criminally investigate or prosecute any alcohol or drug abuse patient.[facility]In the event this information is protected by the Federal Confidentiality of Alcohol and Drug Abuse Patient Records regulations: The Federal rules restrict any use of the information to criminally investigate or prosecute any alcohol or drug abuse patient.[facility]In the event this information is protected by the Federal Confidentiality of Alcohol and Drug Abuse Patient Records regulations: The Federal rules restrict any use of the information to criminally investigate or prosecute any alcohol or drug abuse patient.[facility]In the event this information is protected by the Federal Confidentiality of Alcohol and Drug Abuse Patient Records regulations: The Federal rules restrict any use of the information to criminally investigate or prosecute any alcohol or drug abuse patient.[facility]In the event this information is protected by the Federal Confidentiality of Alcohol and Drug Abuse Patient Records regulations: The Federal rules restrict any use of the information to criminally investigate or prosecute any alcohol or drug abuse patient.[facility]In the event this information is protected by the Federal Confidentiality of Alcohol and Drug Abuse Patient Records regulations: The Federal rules restrict any use of the information to criminally investigate or prosecute any alcohol or drug abuse patient.[facility]In the event this information is protected by the Federal Confidentiality of Alcohol and Drug Abuse Patient Records regulations: The Federal rules restrict any use of the information to criminally investigate or prosecute any alcohol or drug abuse patient.[facility]In the event this information is protected by the Federal Confidentiality of Alcohol and Drug Abuse Patient Records regulations: The Federal rules restrict any use of the information to criminally investigate or prosecute any alcohol or drug abuse patient.[facility]In the event this information is protected by the Federal Confidentiality of Alcohol and Drug Abuse Patient Records regulations: The Federal rules restrict any use of the information to criminally investigate or prosecute any alcohol or drug abuse patient.[facility] HospitalIn the event this information is protected by the Federal Confidentiality of Alcohol and Drug Abuse Patient Records regulations: The Federal rules restrict any use of the information to criminally investigate or prosecute any alcohol or drug abuse patient.[facility] HospitalIn the event this information is protected by the Federal Confidentiality of Alcohol and Drug Abuse Patient Records regulations: The Federal rules restrict any use of the information to criminally investigate or prosecute any alcohol or drug abuse patient.[facility] HospitalIn the event this information is protected by the Federal Confidentiality of Alcohol and Drug Abuse Patient Records regulations: The Federal rules restrict any use of the information to criminally investigate or prosecute any alcohol or drug abuse patient.[facility] HospitalIn the event this information is protected by the Federal Confidentiality of Alcohol and Drug Abuse Patient Records regulations: The Federal rules restrict any use of the information to criminally investigate or prosecute any alcohol or drug abuse patient.[facility] HospitalIn the event this information is protected by the Federal Confidentiality of Alcohol and Drug Abuse Patient Records regulations: The Federal rules restrict any use of the information to criminally investigate or prosecute any alcohol or drug abuse patient.[facility] HospitalIn the event this information is protected by the Federal Confidentiality of Alcohol and Drug Abuse Patient Records regulations: The Federal rules restrict any use of the information to criminally investigate or prosecute any alcohol or drug abuse patient.[facility] HospitalIn the event this information is protected by the Federal Confidentiality of Alcohol and Drug Abuse Patient Records regulations: The Federal rules restrict any use of the information to criminally investigate or prosecute any alcohol or drug abuse patient.[facility] HospitalIn the event this information is protected by the Federal Confidentiality of Alcohol and Drug Abuse Patient Records regulations: The Federal rules restrict any use of the information to criminally investigate or prosecute any alcohol or drug abuse patient.[facility] HospitalIn the event this information is protected by the Federal Confidentiality of Alcohol and Drug Abuse Patient Records regulations: The Federal rules restrict any use of the information to criminally investigate or prosecute any alcohol or drug abuse patient.[facility] HospitalIn the event this information is protected by the Federal Confidentiality of Alcohol and Drug Abuse Patient Records regulations: The Federal rules restrict any use of the information to criminally investigate or prosecute any alcohol or drug abuse patient.[facility] HospitalIn the event this information is protected by the Federal Confidentiality of Alcohol and Drug Abuse Patient Records regulations: The Federal rules restrict any use of the information to criminally investigate or prosecute any alcohol or drug abuse patient.[facility] HospitalIn the event this information is protected by the Federal Confidentiality of Alcohol and Drug Abuse Patient Records regulations: The Federal rules restrict any use of the information to criminally investigate or prosecute any alcohol or drug abuse patient.[facility] HospitalIn the event this information is protected by the Federal Confidentiality of Alcohol and Drug Abuse Patient Records regulations: The Federal rules restrict any use of the information to criminally investigate or prosecute any alcohol or drug abuse patient.[facility] HospitalIn the event this information is protected by the Federal Confidentiality of Alcohol and Drug Abuse Patient Records regulations: The Federal rules restrict any use of the information to criminally investigate or prosecute any alcohol or drug abuse patient.[facility] HospitalIn the event this information is protected by the Federal Confidentiality of Alcohol and Drug Abuse Patient Records regulations: The Federal rules restrict any use of the information to criminally investigate or prosecute any alcohol or drug abuse patient.[facility] HospitalIn the event this information is protected by the Federal Confidentiality of Alcohol and Drug Abuse Patient Records regulations: The Federal rules restrict any use of the information to criminally investigate or prosecute any alcohol or drug abuse patient.[facility] HospitalIn the event this information is protected by the Federal Confidentiality of Alcohol and Drug Abuse Patient Records regulations: The Federal rules restrict any use of the information to criminally investigate or prosecute any alcohol or drug abuse patient.[facility] HospitalIn the event this information is protected by the Federal Confidentiality of Alcohol and Drug Abuse Patient Records regulations: The Federal rules restrict any use of the information to criminally investigate or prosecute any alcohol or drug abuse patient.[facility] HospitalIn the event this information is protected by the Federal Confidentiality of Alcohol and Drug Abuse Patient Records regulations: The Federal rules restrict any use of the information to criminally investigate or prosecute any alcohol or drug abuse patient.[facility] HospitalIn the event this information is protected by the Federal Confidentiality of Alcohol and Drug Abuse Patient Records regulations: The Federal rules restrict any use of the information to criminally investigate or prosecute any alcohol or drug abuse patient.[facility] HospitalIn the event this information is protected by the Federal Confidentiality of Alcohol and Drug Abuse Patient Records regulations: The Federal rules restrict any use of the information to criminally investigate or prosecute any alcohol or drug abuse patient.[facility] HospitalIn the event this information is protected by the Federal Confidentiality of Alcohol and Drug Abuse Patient Records regulations: The Federal rules restrict any use of the information to criminally investigate or prosecute any alcohol or drug abuse patient.[facility] HospitalIn the event this information is protected by the Federal Confidentiality of Alcohol and Drug Abuse Patient Records regulations: The Federal rules restrict any use of the information to criminally investigate or prosecute any alcohol or drug abuse patient.[facility] HospitalIn the event this information is protected by the Federal Confidentiality of Alcohol and Drug Abuse Patient Records regulations: The Federal rules restrict any use of the information to criminally investigate or prosecute any alcohol or drug abuse patient.[facility] HospitalIn the event this information is protected by the Federal Confidentiality of Alcohol and Drug Abuse Patient Records regulations: The Federal rules restrict any use of the information to criminally investigate or prosecute any alcohol or drug abuse patient.[facility] HospitalIn the event this information is protected by the Federal Confidentiality of Alcohol and Drug Abuse Patient Records regulations: The Federal rules restrict any use of the information to criminally investigate or prosecute any alcohol or drug abuse patient.[facility] HospitalIn the event this information is protected by the Federal Confidentiality of Alcohol and Drug Abuse Patient Records regulations: The Federal rules restrict any use of the information to criminally investigate or prosecute any alcohol or drug abuse patient.[facility] HospitalIn the event this information is protected by the Federal Confidentiality of Alcohol and Drug Abuse Patient Records regulations: The Federal rules restrict any use of the information to criminally investigate or prosecute any alcohol or drug abuse patient.[facility] HospitalIn the event this information is protected by the Federal Confidentiality of Alcohol and Drug Abuse Patient Records regulations: The Federal rules restrict any use of the information to criminally investigate or prosecute any alcohol or drug abuse patient.[facility] HospitalIn the event this information is protected by the Federal Confidentiality of Alcohol and Drug Abuse Patient Records regulations: The Federal rules restrict any use of the information to criminally investigate or prosecute any alcohol or drug abuse patient.[facility] HospitalIn the event this information is protected by the Federal Confidentiality of Alcohol and Drug Abuse Patient Records regulations: The Federal rules restrict any use of the information to criminally investigate or prosecute any alcohol or drug abuse patient.[facility] HospitalIn the event this information is protected by the Federal Confidentiality of Alcohol and Drug Abuse Patient Records regulations: The Federal rules restrict any use of the information to criminally investigate or prosecute any alcohol or drug abuse patient.[facility] HospitalIn the event this information is protected by the Federal Confidentiality of Alcohol and Drug Abuse Patient Records regulations: The Federal rules restrict any use of the information to criminally investigate or prosecute any alcohol or drug abuse patient.[facility] HospitalIn the event this information is protected by the Federal Confidentiality of Alcohol and Drug Abuse Patient Records regulations: The Federal rules restrict any use of the information to criminally investigate or prosecute any alcohol or drug abuse patient.[facility] Reason for Visit (unrecogniz ed section and content) Specialty Diagnoses / Procedures Referred By Contac t Referred To Contact [facility] Diagnoses Low back pain, unspecified back pain laterality, unspecified chronicity, unspecified whether sciatica present Acute pain of left shoulder Procedures CONSULT TO PHYSICAL THERAPY PHYSICAL THERAPY EVALUATION HIGH COMPLEX 45 MINS Jennifer Whitfield, ROSARIO.CERTIFIED WELLNESS PROGRAM MANAGER [address] [place] [address] [facility] [address] [place], [place] [id number] Referral ID Status Reason Start Date Expiration Date V isits Requested Visits Authorized [id number] Closed Auto-Generate d Referral 03/05/2023 06/30/2023 1 1 Reason Comments Physical Therapy Specialty Diagnoses / Procedures Referred By Brianaac michael Referred To Contact [facility] Diagnoses Chronic midline low back pain without sciatica Chronic neck pain Lateral epicondylitis, right elbow Neck pain Procedures PT REHAB FOLLOW UP ORDER THERAPEUTIC EXERCISES RE, EA 15 MIN. Jaguar Cook PA-C [address] [place] [address] [facility] [address] [address] Referral ID Status Reason Start Date Expiration Date Visits Requested Visits Authorized [id number] Authorized PCP Requested Referral Auto-Generate d Referral [...] REAL TIME W/IMAGE LIMITED Jaguar Cook PA-C [address] [place] [address] [facility] Referral ID Status Reason Start Date Expiration Date V isits Requested Visits Authorized [id number] Closed Auto-Generate d Referral 01/27/2022 02/26/2023 1 1 Reason Comments Results - Mri Reason Comments Results Reason Comments Prescription Refills Reason Comments Yearly Exam Reason Comments 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 Abdominal Pain sharp [...] MRI LIVER WO/W IVCON Jaguar Cook PA-C [address] [place] [address] [facility] Referral ID Status Reason Start Date Expiration Date V isits Requested Visits Authorized [id number] Closed Auto-Generate d Referral 03/01/2022 04/30/2022 1 1 Reason Comments Appointment cancel appointment or February 22 Reason Onset Date Comments Refill Request 04/04/2022 Reason Comments PT Eval Patient Education Specialty Diagnoses / Procedures Referred By Contac t Referred To Contact PHYSICAL THERAPY Diagnoses Acute pain of right shoulder Procedures CONSULT TO PHYSICAL THERAPY PHYSICAL THERAPY EVALUATION HIGH COMPLEX 45 MINS Jaguar Cook PA-C [address] [place] [address] [facility] [address] [place] [address] Referral ID Status Reason Start Date Expiration Date V isits Requested Visits Authorized [id number] Closed Auto-Generate d Referral 03/23/2022 07/31/2022 1 [...] liver Specialty Diagnoses / Procedures Referred By Contac t Referred To Contact Diagnoses Nodule on liver Procedures CONSULT TO HEPATOLOGY OFFICE/OUTPATIENT NEW HIGH MDM 60-74 MINUTES Jaguar Cook PA-C [address] [place] [address] Referral ID Status Reason Start Date Expiration Date V isits Requested Visits Authorized [id number] Closed PCP Requested Referral 03/28/2022 03/28/2023 1 [...] list Specialty Diagnoses / Procedures Referred By Contac t Referred To Contact Physical Therapy / PHYSICAL THERAPY Diagnoses Chronic midline low back pain without sciatica [M54.50, G89.29] Chronic neck pain [M54.2, G89.29] Lateral epicondylitis, right elbow [M77.11] Procedures NEW RS PT SPINE Jaguar Cook PA-C [address] [place] [address] Lilia Murphy, PT [address] [place] [address] Referral ID Status Reason Start Date Expiration Date V isits Requested Visits Authorized [id number] Pending Review 10/17/2022 01/15/2023 1 1 Reason Comments Appointment Reason Comments Information Reason Comments New CTS Pain CTS Specialty Diagnoses / Procedures Referred By Contjuanita t Referred To Contact Orthopedics Diagnoses Right hand pain Right wrist pain Procedures CONSULT TO ORTHOPAEDICS OFFICE/OUTPATIENT NEW HIGH MDM 60-74 MINUTES Johnna Martinez PA-C [address] [place] [address] Referral ID Status Reason Start Date Expiration Date V isits Requested Visits Authorized [id number] Closed PCP Requested Referral 09/14/2022 09/14/2023 1 [...] Discharge Specialty Diagnoses / Procedures Referred By Karen rodriguez Referred To Contact [facility] Diagnoses Low back pain, unspecified back pain laterality, unspecified chronicity, unspecified whether sciatica present Neck pain Procedures PT REHAB FOLLOW UP ORDER THERAPEUTIC EXERCISES RE, EA 15 MIN. Jennifer Whitfield APRN.CERTIFIED WELLNESS PROGRAM MANAGER [address] [place] [address] [facility] [address] [place] [address] Referral ID Status Reason Start Date Expiration Date Visits Requested Visits Authorized [id number] Authorized PCP Requested Referral Auto-Generate d Referral 03/22/2023 06/22/2023 12 12 Reason Comments Blood Pressure Reason Onset Date Comments Refill Request 06/19/2023 Reason Comments Trauma Left shoulder pain x 1 weekStd testing, itching, some discharge Reason Comments Pain (Shoulder Pain) Shoulder pain x 1 w taz[place] and vomiting and diarrhea x 2 days [...] W/O CONTRAST MATERIAL Guillermo Lizama MD [address] [place] [address] [place] [address] Referral ID Status Reason Start Date Expiration Date V isits Requested Visits Authorized [id number] Closed Auto-Generate d Referral 04/04/2023 06/03/2023 1 1 Reason Comments Radiology US Specialty Diagnoses / Procedures Referred By Contac t Referred To Contact [facility] Diagnoses Abnormal mammogram Procedures US BREAST LTD RT US BREAST UNI REAL TIME WITH IMAGE LIMITED Nohelia Taylor APRN.CERTIFIED WELLNESS PROGRAM MANAGER [address] [place] [address] [facility] [address] [place] [address] Referral ID Status Reason Start Date Expiration Date V isits Requested Visits Authorized [id number] Closed Auto-Generate d Referral 12/11/2022 01/10/2024 1 1 Reason Onset Date Comments Refill Request 08/30/2023 Reason Comments New Left shoulder painRe ferred by Tristin Bender 07/11/2023Last seen 10/30/2022 right leg pain Pain Left shoulder painRe ferred by Tristin Bender 07/11/2023Last seen 10/30/2022 right leg pain Specialty Diagnoses / Procedures Referred By Contac t Referred To Contact Orthopedics Diagnoses Chronic left shoulder pain Procedures CONSULT TO ORTHOPAEDICS OFFICE/OUTPATIENT NEW HIGH MDM 60-74 MINUTES Yeison Ignacio PARajeev [address] [place] [address] Referral ID Status Reason Start Date Expiration Date V isits Requested Visits Authorized [id number] Closed PCP Requested Referral 07/26/2023 07/25/2024 1 1 Reason Comments Medication Request Reason Comments UTI Vaginal irritation 1 weekUrinary sx x 2 daysWants STD check Reason Comments Constipation X 1.5 wks states she is also having rectal bleeding Care Teams (unrecognized sec tion and content) Hadoop Developer Relationship Specialty Start Date End Date Jaguar Cook PA-C [address] [place] [address] PCP - General Family Practice 10/21/20 Hadoop Developer Relationship Specialty Start Date End Date Jaguar Cook PA-C [address] [place] [address] PCP - General Family Practice 10/21/20 Hadoop Developer Relationship Specialty Start Date End Date Jaguar Cook PA-C [address] [place] [address] PCP - General Family Practice 10/21/20 Hadoop Developer Relationship Specialty Start Date End Date Jaguar Cook PA-C [address] [place] [address] PCP - General Family Practice 10/21/20 Hadoop Developer Relationship Specialty Start Date End Date Jaguar Cook PA-C [address] [place] [address] PCP - General Family Practice 10/21/20 Hadoop Developer Relationship Specialty Start Date End Date Jaguar Cook PA-C [address] [place] [address] PCP - General Family Practice 10/21/20 Hadoop Developer Relationship Specialty Start Date End Date Jaguar Cook PA-C [address] [place] [address] PCP - General Family Practice 10/21/20 Hadoop Developer Relationship Specialty Start Date End Date Jaguar Cook PA-C [address] [place] [address] PCP - General Family Practice 10/21/20 Hadoop Developer Relationship Specialty Start Date End Date Jaguar Cook PA-C [address] [place] [address] PCP - General Family Practice 10/21/20 Hadoop Developer Relationship Specialty Start Date End Date Jaguar Cook PA-C [address] [place] [address] PCP - General Family Practice 10/21/20 Hadoop Developer Relationship Specialty Start Date End Date Jaguar Cook PA-C [address] [place] [address] PCP - General Family Practice 10/21/20 Hadoop Developer Relationship Specialty Start Date End Date Jaguar Cook PA-C [address] [place] [address] PCP - General Family Practice 10/21/20 Hadoop Developer Relationship Specialty Start Date End Date Jaguar Cook PA-C [address] [place] [address] PCP - General Family Practice 10/21/20 Hadoop Developer Relationship Specialty Start Date End Date Jaguar Cook PA-C [address] [place] [address] PCP - General Family Practice 10/21/20 Hadoop Developer Relationship Specialty Start Date End Date Jaguar Cook PA-C [address] [place] [address] PCP - General Family Practice 10/21/20 Hadoop Developer Relationship Specialty Start Date End Date Jaguar Cook PA-C [address] [place] [address] PCP - General Family Practice 10/21/20 Hadoop Developer Relationship Specialty Start Date End Date Jaguar Cook PA-C [address] [place] [address] PCP - General Family Practice 10/21/20 Hadoop Developer Relationship Specialty Start Date End Date Jaguar Cook PA-C [address] [place] [address] PCP - General Family Practice 10/21/20 Hadoop Developer Relationship Specialty Start Date End Date Jaguar Cook PA-C [address] [place] [address] PCP - General Family Practice 10/21/20 Hadoop Developer Relationship Specialty Start Date End Date Jaguar Cook PA-C [address] [place] [address] PCP - General Family Practice 10/21/20 Hadoop Developer Relationship Specialty Start Date End Date Jaguar Cook PA-C [address] [place] [address] PCP - General Family Practice 10/21/20 Hadoop Developer Relationship Specialty Start Date End Date Jaguar Cook PA-C [address] [place] [address] PCP - General Family Practice 10/21/20 Hadoop Developer Relationship Specialty Start Date End Date Jaguar Cook PA-C [address] [place] [address] PCP - General Family Practice 10/21/20 Hadoop Developer Relationship Specialty Start Date End Date Jaguar Cook PA-C [address] [place] [address] PCP - General Family Practice 10/21/20 Hadoop Developer Relationship Specialty Start Date End Date Jaguar Cook PA-C [address] [place] [address] PCP - General Family Practice 10/21/20 Hadoop Developer Relationship Specialty Start Date End Date Jaguar Cook PA-C [address] [place] [address] PCP - General Family Medicine 10/21/20 Hadoop Developer Relationship Specialty Start Date End Date Jaguar Cook PA-C [address] [place] [address] PCP - General Family Medicine 10/21/20 Hadoop Developer Relationship Specialty Start Date End Date Jaguar Cook PA-C [address] [place] [address] PCP - General Family Medicine 10/21/20 Hadoop Developer Relationship Specialty Start Date End Date Jaguar Cook PA-C [address] [place] [address] PCP - General Family Medicine 10/21/20 Hadoop Developer Relationship Specialty Start Date End Date Jaguar Cook PA-C [address] [place] [address] PCP - General Family Medicine 10/21/20 Hadoop Developer Relationship Specialty Start Date End Date Jaguar Cook PA-C [address] [place] [address] PCP - General Family Medicine 10/21/20 Hadoop Developer Relationship Specialty Start Date End Date Jaguar Cook PA-C [address] [place] [address] PCP - General Family Medicine 10/21/20 Hadoop Developer Relationship Specialty Start Date End Date Jaguar Cook PA-C [address] [place] [address] PCP - General Family Medicine 10/21/20 Hadoop Developer Relationship Specialty Start Date End Date Jaguar Cook PA-C [address] [place] [address] PCP - General Family Medicine 10/21/20 Hadoop Developer Relationship Specialty Start Date End Date Jaguar Cook PA-C [address] [place] [address] PCP - General Family Medicine 10/21/20 Hadoop Developer Relationship Specialty Start Date End Date Jaguar Cook PA-C [address] [place] [address] PCP - General Family Medicine 10/21/20 Hadoop Developer Relationship Specialty Start Date End Date Jaguar Cook PA-C [address] [place] [address] PCP - General Family Medicine 10/21/20 Hadoop Developer Relationship Specialty Start Date End Date Jaguar Cook PA-C [address] [place] [address] PCP - General Family Medicine 10/21/20 Hadoop Developer Relationship Specialty Start Date End Date Jaguar Cook PA-C [address] [place] [address] PCP - General Family Medicine 10/21/20 Hadoop Developer Relationship Specialty Start Date End Date Jaguar Cook PA-C [address] [place] [address] PCP - General Family Medicine 10/21/20 Hadoop Developer Relationship Specialty Start Date End Date Jaguar Cook PA-C [address] [place] [address] PCP - General Family Medicine 10/21/20 Hadoop Developer Relationship Specialty Start Date End Date Jaguar Cook PA-C [address] [place] [address] PCP - General Family Medicine 10/21/20 Hadoop Developer Relationship Specialty Start Date End Date Jaguar Cook PA-C [address] [place] [address] PCP - General Family Medicine 10/21/20 Hadoop Developer Relationship Specialty Start Date End Date Jaguar Cook PA-C [address] [place] [address] PCP - General Family Medicine 10/21/20 Hadoop Developer Relationship Specialty Start Date End Date Jaguar Cook PA-C [address] [place] [address] PCP - General Family Medicine 10/21/20 Hadoop Developer Relationship Specialty Start Date End Date Jaguar Cook PA-C [address] [place] [address] PCP - General Family Medicine 10/21/20 Hadoop Developer Relationship Specialty Start Date End Date Jaguar Cook PA-C [address] [place] [address] PCP - General Family Medicine 10/21/20 Hadoop Developer Relationship Specialty Start Date End Date Jaguar Cook PA-C [address] [place] [address] PCP - General Family Medicine 10/21/20 Hadoop Developer Relationship Specialty Start Date End Date Jaguar Cook PA-C [address] [place] [address] PCP - General Family Medicine 10/21/20 Hadoop Developer Relationship Specialty Start Date End Date Jaguar Cook PA-C [address] [place] [place] [address] PCP - General Family Medicine 10/21/20 Hadoop Developer Relationship Specialty Start Date End Date Jaguar Cook PA-C [address] [place] [address] PCP - General Family Medicine 10/21/20 Hadoop Developer Relationship Specialty Start Date End Date Jaguar Cook PA-C [address] [place] [address] PCP - General Family Medicine 10/21/20 Hadoop Developer Relationship Specialty Start Date End Date Jaguar Cook PA-C [address] [place] [address] PCP - General Family Medicine 10/21/20 Hadoop Developer Relationship Specialty Start Date End Date Jaguar Cook PA-C [address] [place] [address] PCP - General Family Medicine 10/21/20 Hadoop Developer Relationship Specialty Start Date End Date Jaguar Cook PA-C [address] [place] [address] PCP - General Family Medicine 10/21/20 Hadoop Developer Relationship Specialty Start Date End Date Jaguar Cook PA-C [address] [place] [address] PCP - General Family Medicine 10/21/20 Hadoop Developer Relationship Specialty Start Date End Date Jaguar Cook PA-C [address] [place] [address] PCP - General Family Medicine 10/21/20 Hadoop Developer Relationship Specialty Start Date End Date Jaguar Cook PA-C [address] [place] [address] PCP - General Family Medicine 10/21/20 Hadoop Developer Relationship Specialty Start Date End Date Jaguar Cook PA-C [address] [place] [address] PCP - General Family Medicine 10/21/20 Hadoop Developer Relationship Specialty Start Date End Date Jaguar Cook PA-C [address] [place] [address] PCP - General Family Medicine 10/21/20 Hadoop Developer Relationship Specialty Start Date End Date Jaguar Cook PA-C [address] [place] [address] PCP - General Family Medicine 10/21/20 Hadoop Developer Relationship Specialty Start Date End Date Jaguar Cook PA-C [address] [place] [address] PCP - General Family Medicine 10/21/20 Hadoop Developer Relationship Specialty Start Date End Date Jaguar Cook PA-C [address] [place] [address] PCP - General Family Medicine 10/21/20 Hadoop Developer Relationship Specialty Start Date End Date Jaguar Cook PA-C [address] [place] [address] PCP - General Family Medicine 10/21/20 Hadoop Developer Relationship Specialty Start Date End Date Jaguar Cook PA-C [address] [place] [address] PCP - General Family Medicine 10/21/20 Hadoop Developer Relationship Specialty Start Date End Date Jaguar Cook PA-C [address] [place] [address] PCP - General Family Medicine 10/21/20 Hadoop Developer Relationship Specialty Start Date End Date Jaguar Cook PA-C [address] [facility], [place] [address] PCP - [facility] 10/21/20 Hadoop Developer Relationship Specialty Start Date End Date Jaguar Cook PA-C [address] [facility], [place] [address] PCP - [facility] 10/21/20 Hadoop Developer Relationship Specialty Start Date End Date Jaguar Cook PA-C [address] [facility], [place] [id number] PCP - [facility] 10/21/20 Hadoop Developer Relationship Specialty Start Date End Date Jaguar Cook PA-C [address] [facility], [place] [address] PCP - [facility] 10/21/20 Hadoop Developer Relationship Specialty Start Date End Date Jaguar Cook PA-C [address] [facility], [place] [id number] PCP - [facility] 10/21/20 FOR RECORDS PERTAINING TO PATIENTS WHO [...] BE BASED ON THE PRIMARY CLINICAL RECORDS. [facility]. provides no warranty or guarantee of the accuracy or completeness of information in this document.
[2023-12-11 01:21] VITALS: BP 132/71; PULSE 72; RESP 16; TEMP 36.4; O2SAT 99
== END 2023-12-11 01:22 | disposition home or self-care (01) ==
LOC: ED 12-11 01:06
PROVIDERS: Emergency Provider Emergency Medicine; PCP Physician Assistant; Visit Provider Emergency Medicine
DX: K59.00 Constipation, unspecified (principal); K62.89 Other specified diseases of anus and rectum; F41.9 Anxiety disorder, unspecified; I10 Essential (primary) hypertension; Z79.51 Long term (current) use of inhaled steroids; Z79.899 Other long term (current) drug therapy
CPT/HCPCS: 74018; 99284

== ENCOUNTER 2024-01-04 13:49 | Emergency (ER) | payer MEDICAID, SELFPAY ==
[2024-01-04 13:50] VITALS: BP 193/99; PULSE 58; RESP 14; TEMP 36.3; O2SAT 100; BMI 30.5
--- NOTE | 2024-01-04 14:04 | EX.ED.DYSGE1 ---
HPI History of Present Illness Chief Complaint: Headache Informant: patient Onset/Context/Timing Onset: Days Context: Gradual Onset Narrative Narrative: Patient presents with a 4-day history of mild headache with dizziness. She describes the dizziness as both lightheaded as well as spinning sensation. She states on arrival here she noted her blood pressure was significantly elevated above baseline. She is currently on metoprolol as well as lisinopril for blood pressure control. She states usually it is in the 120s to 130s systolic. She denies any recent head injury or URI symptoms. She was recently on doxycycline for infection. She was not on prednisone. She states overall she just feels jittery. She has been taking Tylenol at home without improvement. [facility] Medical History Anxiety History of hypercholesterolemia Hypertension Panic attacks Home Medications metoprolol tartrate 50 mg tablet 50 mg PO BID 09/11/13 [History Last Taken 11/18/20] simvastatin 10 mg tablet 10 mg PO DAILY 01/21/19 [History Last Taken 11/18/20] albuterol sulfate 90 mcg/actuation aerosol inhaler 2 puff inhalation Q6H PRN Sob &/Or Wheezing 11/18/20 [History Last Taken 11/18/20] fluticasone propionate 50 mcg/actuation nasal spray,suspension 2 spray NASAL DAILY ALLERGIES 11/18/20 [History Last Taken 11/18/20] omeprazole 20 mg tablet,delayed release 20 mg PO DAILY 11/18/20 [History Last Taken 11/18/20] albuterol sulfate 90 mcg/actuation aerosol inhaler (Ventolin HFA) 2 puff inhalation Q4H PRN PRN Wheezing ##1 09/26/22 [Rx Last Taken Unknown] cyclobenzaprine 10 mg tablet 10 mg PO TID PRN PRN muscle spasm 12/10/23 [History Last Taken Unknown] ibuprofen 800 mg tablet 800 mg PO Q8H PRN PRN pain 12/10/23 [History Last Taken Unknown] ondansetron 4 mg disintegrating tablet 4 mg PO Q6H PRN PRN nausea/vomiting 12/10/23 [History Last Taken Unknown] oxybutynin chloride 5 mg tablet,extended release 24 hr 5 mg PO DAILY 12/10/23 [History Last Taken Unknown] polyethylene glycol 3350 17 gram/dose oral powder 17 g PO DAILY 12/10/23 [History Last Taken Unknown] amoxicillin 875 mg-potassium clavulanate 125 mg tablet 1 tab PO BID #20 tabs 01/04/24 [Rx Last Taken Unknown] Allergy/AdvReac Type Severity Reaction Status Date / Time No Known Allergies Allergy Verified 01/04/24 13:50 Family History Other CAD (coronary artery disease) Surgical History Hx of cholecystectomy Hx of tubal ligation Social History household members: none Smoking Status: Never smoker substance use type: does not use ROS ROS ED Constitutional Constitutional ED: Denies chills or fever(s) Eyes Eyes: Denies change in vision ENT ENT ED: Denies rhinorrhea or sore throat Cardiovascular Cardiovascular: Denies chest pain or palpitations Respiratory/Chest Respiratory/Chest: Denies cough or dyspnea Gastrointestinal Gastrointestinal: Denies abdominal pain, nausea or vomiting Genitourinary Genitourinary ED: Denies dysuria Musculoskeletal Musculoskeletal: Denies back pain or extremity pain Integumentary Denies Abrasions or rash Neurologic Neurologic: Reports headache(s); Denies weakness Psychiatric Psychiatric: Denies anxiety or depression Allergic/Immunologic Allergic/Immunologic ED: Denies lip swelling or urticaria EXAM Physical Exam Const Vital Signs: 01/04/24 13:50 01/04/24 15:00 01/04/24 15:16 Temperature 97.3 F L Temperature Source Temporal Pulse Rate 58 L 65 Respiratory Rate 14 16 Blood Pressure 193/99 H 176/98 H 151/85 H Blood Pressure Mean 130 124 107 Pulse Ox 100 99 Oxygen Delivery Method Room Air Room Air Positive well nourished and well developed General Appearance ED: well developed HEENT Reports moist mucous membranes Eyes EOMs intact bilaterally Chest Wall inspection of chest normal and palpation of chest normal Resp normal respiratory effort and clear to auscultation bilaterally Cardio regular rate and regular rhythm GI non-tender Palpation: soft Extremity normal to inspection Neuro oriented x3 and no sensory deficits noted Motor Exam: strength 5/5 throughout Psych mental status grossly normal Skin no rashes or lesions noted MDM MDM MDM Narrative Medical decision making narrative: IV line established. Patient given a dose of Toradol along with a dose of Antivert. Labwork obtained to evaluate for leukocytosis, anemia, and electrolyte derangement. EKG obtained to evaluate for cardiac arrhythmia/ischemia. Given her hypertension, headache, dizziness a head CT will be obtained to evaluate for any intracranial abnormality including bleed, mass, edema. History & Record Review Discussion w/independent historian: Patient Lab Data Attestation: I reviewed the patient's lab results. Labs: Laboratory Results - last 24 hr 01/04/24 14:15 WBC 7.1 RBC 4.51 Hgb 13.6 Hct 40.5 MCV 89.8 MCH 30.2 MCHC 33.6 RDW Std Deviation 43.5 RDW Coeff of Shazia 13.2 Plt Count 260 MPV 10.3 Immature Gran % (Auto) 0.400 Neut % (Auto) 60.0 Lymph % (Auto) 31.7 [place] % (Auto) 5.8 Eos % (Auto) 1.7 Baso % (Auto) 0.4 Absolute Neuts (auto) 4.3 Absolute Lymphs (auto) 2.26 Nucleated RBC % 0 Sodium 138 Potassium 3.6 Chloride 107 Carbon Dioxide 25.0 Anion Gap 6 BUN 14 Creatinine 0.70 Estim Creat Clear Calc 99.43 Est GFR (MDRD) Af Amer 115 Est GFR (MDRD) Non-Af 95 BUN/Creatinine Ratio 19.9 Glucose 108 H Calcium 9.1 Radiography Diagnostic Testing: Clinical Impression(s) from Imaging Studies Brain CT 01/04/24 14:30 IMPRESSION: Normal unenhanced CT scan of the brain. Partial opacification of the ethmoid sinuses more prominent on the left side. Electronically Signed: Jose Ochoa MD at 14:46 EDT , EKG Initial EKG: Attestation: I personally reviewed and interpreted this EKG as follows: Interpretation: Sinus Rhythm (Sinus at 79 with no acute ischemia.) Treatment and Re-Evaluation :: CBC was normal white count 7.1 and normal differential. Hemoglobin 13.6. Chemistry studies unremarkable. CT scan of the head reveals normal brain. Partial opacification of the ethmoid sinuses more prominent on the left. Swab for COVID, influenza, and RSV is negative. After Toradol and Antivert, patient's blood pressure remained elevated. She was given 10 mg of IV labetalol. Most recent blood pressure is 126 systolic. She states she feels much improved. I will write her a course of Augmentin for her sinusitis. Discharge Plan Triage Chief Complaint: Headache ED Provider: Monique Polanco Dx/Rx/DC Orders Clinical Impression: Sinusitis, Hypertension Instructions: ED Sinusitis (Antibiotic Treatment) Prescriptions: New amoxicillin-pot clavulanate 875-125 mg tablet 1 tab PO BID Qty: 20 0RF No Action metoprolol tartrate 50 MG tablet 50 mg PO BID Patient Comments: BP/HEART MEDICATION simvastatin 10 tablet 10 mg PO DAILY omeprazole 20 MG tablet,delayed release (DR/EC) 20 mg PO DAILY albuterol sulfate 1 PUFF inhaler 2 puff INHALATION Q6H PRN (Reason: Sob &/Or Wheezing) Patient Comments: Inhale 2 Puffs as instructed every 6 hours as needed. fluticasone propionate 1 SPRAY spray,suspension 2 spray NASAL DAILY Hold Instructions: Order Completed albuterol sulfate [Ventolin HFA] 90 mcg/actuation HFA aerosol inhaler 2 puff inhalation Q4H PRN PRN (Reason: Wheezing) Qty: 1 0RF cyclobenzaprine 10 mg tablet 10 mg PO TID PRN PRN (Reason: muscle spasm) ibuprofen 800 mg tablet 800 mg PO Q8H PRN PRN (Reason: pain) oxybutynin chloride 5 mg tablet extended release 24hr 5 mg PO DAILY polyethylene glycol 3350 17 gram/dose powder 17 g PO DAILY ondansetron 4 mg tablet,disintegrating 4 mg PO Q6H PRN PRN (Reason: nausea/vomiting) Stand Alone Forms: ED Work / School Excuse Primary Care Provider: Jaguar Cook Referrals: Jaguar Cook PA [Primary Care Provider] - 1-2 Weeks Disposition Disposition: Home, Self Care
[2024-01-04] MEDS: Ketorolac 30 MG/ML Syringe IV (14:18)
[2024-01-04] MEDS: 0.9% Normal Saline (500mL Bag) 500 ML 1000 ML IV (14:18)
[2024-01-04] MEDS: Meclizine HCl 25 MG Tablet PO (14:19)
[2024-01-04 14:23] LABS: Absolute Lymphocyte Count 2.26 X10^3/uL (0.83-4.51); Absolute Neutrophil Count 4.3 X10^3/uL (2.0-7.7); Basophil# 0.03 X10^3/uL; Basophil% 0.4 % (0-1); Eosinophil# 0.12 X10^3/uL; Eosinophils% 1.7 % (0-5); Hematocrit 40.5 % (37-47); Hemoglobin 13.6 g/dL (12.0-15.0); Lymphocyte # 2.26 X10^3/ul (0.83-4.51); Lymphocyte % 31.7 % (19-41); Mean Corp Hgb Conc 33.6 g/dL (32-36); Mean Corpuscular Hgb 30.2 pg (27.0-32.0); Mean Corpuscular Volume 89.8 fL (81-99); Mean Platelet Vol. 10.3 fl (6.2-12.0); Monocyte# 0.41 X10^3/uL; Monocyte% 5.8 % (0-10); NRBC Flagged by Analyzer 0 % (0-5); Neutrophil # 4.28 X10^3/uL (2.7-7.7); Platelet Count 260 K/mm3 (150-450); RBC Distribution Width CV 13.2 % (11.6-14.6); RBC Distribution Width SD 43.5 fl (35.1-43.9); Red Blood Count 4.51 M/mm3 (4.2-5.4); White Blood Count 7.1 K/mm3 (4.4-11.0)
--- NOTE | 2024-01-04 14:30 | CT_ITS ---
STUDY: CT BRAIN WITHOUT CONTRAST REASON FOR EXAM: Female, 48 years old. Headache, HTN, dizzy RADIATION DOSAGE (If Supplied By Facility): CTDIvol = ( 44.99 ) mGy, DLP = ( 745.49 ) mGycm TECHNIQUE: Transaxial CT imaging of the brain was performed without administration of intravenous contrast material. Individualized dose optimization techniques were used for this CT. COMPARISON: Comparison is made with prior study February 15, 2023. FINDINGS: Normal soft tissue structures. Normal calvarium. Normal size ventricles and extra-axial spaces for the patient''s age. Normal white matter tracts of the cerebral hemispheres. Normal basal ganglia and thalami. Normal brainstem. Normal cerebellum. There is no intracranial hemorrhage. There are no findings of an acute ischemic infarction. Partial opacification of the ethmoid sinuses worse on the left side. CT/Brain/Head without Contrast IMPRESSION: Normal unenhanced CT scan of the brain. Partial opacification of the ethmoid sinuses more prominent on the left side. Electronically Signed: Jose Ochoa MD at 14:46 EDT ,
[2024-01-04 14:37] LABS: Anion Gap 6 (5-15); BUN 14 mg/dL (7-18); BUN/Creat Ratio 19.9 RATIO (10-20); Calcium,Total 9.1 mg/dL (8.5-10.1); Chloride 107 mmol/L (98-107); EST Glomerular Filtration Rate 95 mL/min (>60); Est Glom Filt Rate - Afr Amer 115 mL/min (>60); Estimated Creatinine Clearance 99.43 ml/min; Glucose 108 mg/dL (74-106); Potassium 3.6 mmol/L (3.5-5.1); Sodium Level 138 mmol/L (136-145)
[2024-01-04 15:00] VITALS: BP 176/98
[2024-01-04] MEDS: Labetalol (Prefilled) 20 MG/4 ML 10 MG IV (15:03)
[2024-01-04 15:16] VITALS: BP 151/85; PULSE 65; RESP 16; O2SAT 99
[2024-01-04 16:00] VITALS: BP 171/95; PULSE 62; RESP 16; TEMP 36.3; O2SAT 98
== END 2024-01-04 16:02 | disposition home or self-care (01) ==
PROVIDERS: Emergency Provider Emergency Medicine; PCP Physician Assistant; Visit Provider Emergency Medicine
DX: J32.9 Chronic sinusitis, unspecified (principal); I10 Essential (primary) hypertension
CPT/HCPCS: 70450; 80048; 85025; 87631; 93005; 96361; 96374; 96375; 99283; J7030

== ENCOUNTER 2024-07-21 23:11 | Emergency (ER) | payer MEDICAID, SELFPAY ==
[2024-07-21 23:12] VITALS: BP 146/70; PULSE 61; RESP 18; TEMP 36.4; O2SAT 98; BMI 31.1
--- NOTE | 2024-07-21 23:21 | EX.ED.DYSGE1 ---
HPI History of Present Illness Chief Complaint: Ear Problem [facility] Medical History Anxiety History of hypercholesterolemia Hypertension Panic attacks Home Medications ?Medication ?Instructions ?Recorded ?Last Taken ?Type metoprolol tartrate 50 mg tablet 50 mg PO BID 09/11/13 11/18/20 History simvastatin 10 mg tablet 10 mg PO DAILY 01/21/19 11/18/20 History albuterol sulfate 90 mcg/actuation 2 puff inhalation Q6H PRN Sob &/Or 11/18/20 11/18/20 History aerosol inhaler Wheezing fluticasone propionate 50 2 spray NASAL DAILY ALLERGIES 11/18/20 11/18/20 History mcg/actuation nasal spray,suspension omeprazole 20 mg tablet,delayed 20 mg PO DAILY 11/18/20 11/18/20 History release albuterol sulfate 90 mcg/actuation 2 puff inhalation Q4H PRN PRN 09/26/22 Unknown Rx aerosol inhaler (Ventolin HFA) Wheezing ##1 cyclobenzaprine 10 mg tablet 10 mg PO TID PRN PRN muscle spasm 12/10/23 Unknown History ibuprofen 800 mg tablet 800 mg PO Q8H PRN PRN pain 12/10/23 Unknown History ondansetron 4 mg disintegrating 4 mg PO Q6H PRN PRN nausea/vomiting 12/10/23 Unknown History tablet oxybutynin chloride 5 mg 5 mg PO DAILY 12/10/23 Unknown History tablet,extended release 24 hr polyethylene glycol 3350 17 17 g PO DAILY 12/10/23 Unknown History gram/dose oral powder amoxicillin 875 mg-potassium 1 tab PO BID #20 tabs 01/04/24 Unknown Rx clavulanate 125 mg tablet Allergy/AdvReac Type Severity Reaction Status Date / Time No Known Allergies Allergy Verified 07/21/24 23:12 Family History Other CAD (coronary artery disease) Surgical History Hx of cholecystectomy Hx of tubal ligation Social History household members: none Smoking Status: Never smoker substance use type: does not use EXAM Physical Exam Const Vital Signs: 07/21/24 23:12 Temperature 97.5 F L Temperature Source Temporal Pulse Rate 61 Respiratory Rate 18 Blood Pressure 146/70 H Blood Pressure Mean 95 Pulse Ox 98 Oxygen Delivery Method Room Air [facility] [place] Narrative Medical decision making narrative: HISTORY OF PRESENT ILLNESS: 48-year female presents concern for cotton stuck in her ear. REVIEW OF SYSTEMS: Pertinent positives: Ear foreign body Pertinent negatives: Fever PHYSICAL EXAM: Nursing triage notes reviewed, Vital signs reviewed Constitutional: please see mdm HENT: MMM, no mastoid tenderness, left ear with cotton ball noted. Irrigated with approximate 60 cc of normal saline with removal of cotton ball. Post irrigation exam showed no evidence of foreign body MEDICAL DECISION MAKING: Chief Complaint: Foreign body in ear External records reviewed: Reviewed problems, vital signs Factors affecting care: Hypertension, hyperlipidemia [facility] Narrative: The patient was hemodynamically stable, afebrile and nontoxic-appearing. Involved ear was irrigated with copious normal saline with presentation of said cotton ball. Exam after, was removed showed clear external auditory meatus and a nonperforated eardrum. The patient and/or family, caregivers express understanding. The patient and/or family, caregivers agrees with the plan. Shared decision making: I will have a discussion with the patient and or visitors regarding risk/benefits of further testing or admission. They will be made aware of of the risk/benefits inherent in this decision they will be given the opportunity to voice understanding. Total critical care time today provided was at least 0 minutes. This excludes separately billable procedures. Critical care time (if documented) is secondary to the patient having high probability of clinically significant/life threatening deterioration in the patient's condition which required my urgent intervention. Impression: 1. Ear foreign body 2. History of hyperlipidemia Dispo: Discharge home This note was generated with [employer] dictation software. It may contain incorrect words, spelling, and punctuation that were not noted in review of the chart prior to signing. Discharge Plan Triage Chief Complaint: Ear Problem ED Provider: Beto Adan Dx/Rx/DC Orders Clinical Impression: Ear foreign body Instructions: ED Foreign Body, Ear Canal (Removed) Prescriptions: No Action metoprolol tartrate 50 MG tablet 50 mg PO BID Patient Comments: BP/HEART MEDICATION simvastatin 10 tablet 10 mg PO DAILY omeprazole 20 MG tablet,delayed release (DR/EC) 20 mg PO DAILY albuterol sulfate 1 PUFF inhaler 2 puff INHALATION Q6H PRN (Reason: Sob &/Or Wheezing) Patient Comments: Inhale 2 Puffs as instructed every 6 hours as needed. fluticasone propionate 1 SPRAY spray,suspension 2 spray NASAL DAILY albuterol sulfate [Ventolin HFA] 90 mcg/actuation HFA aerosol inhaler 2 puff inhalation Q4H PRN PRN (Reason: Wheezing) Qty: 1 0RF cyclobenzaprine 10 mg tablet 10 mg PO TID PRN PRN (Reason: muscle spasm) ibuprofen 800 mg tablet 800 mg PO Q8H PRN PRN (Reason: pain) oxybutynin chloride 5 mg tablet extended release 24hr 5 mg PO DAILY polyethylene glycol 3350 17 gram/dose powder 17 g PO DAILY ondansetron 4 mg tablet,disintegrating 4 mg PO Q6H PRN PRN (Reason: nausea/vomiting) amoxicillin-pot clavulanate 875-125 mg tablet 1 tab PO BID Qty: 20 0RF Primary Care Provider: Jaguar Cook Referrals: Jaguar Cook PA [Primary Care Provider] - Activity Restrictions/Additional Instructions: Thank you for trusting us with your care today! Please take Tylenol (2 pills, 650 mg), ibuprofen (2 pills, 400 mg) every 6 hours as needed for pain and fever control. Please return to the emergency department if your symptoms change or worsen. Please follow with your primary care physician for further outpatient evaluation and management. Print Language: Nigerien Disposition Disposition: Home, Self Care
== END 2024-07-21 23:46 | disposition home or self-care (01) ==
LOC: ED 23:33
PROVIDERS: Emergency Provider Emergency Medicine; PCP Physician Assistant; Visit Provider Emergency Medicine
DX: T16.2XXA Foreign body in left ear, initial encounter (principal); X58.XXXA Exposure to other specified factors, initial encounter
CPT/HCPCS: 99282; A4216

== ENCOUNTER 2024-07-26 19:18 | Emergency (ER) | payer MEDICAID, SELFPAY ==
[2024-07-26 19:18] VITALS: BP 152/100; PULSE 81; RESP 16; TEMP 36.6; O2SAT 98; BMI 30.6
--- OUTSIDE RECORDS SUMMARY | 2024-07-26 19:39 | XMS RPT_ITS | CCD ---
Author Organization [facility] CliniSyde Care Team Providers Care Anthropometrist Name Role Phone Adry Uribe Unavailable Unavailable Opal Casiano Unavailable Unavailable Oh, Opal Unavailable Unavailable FESLER, KARINA Unavailable Unavailable FESLER, KARINA Unavailable Unavailable FESLER, KARINA R Unavailable Unavailable FESELENO, KARINA R Unavailable Unavailable Guillermo Sheffield Unavailable Unavailable Cook Jaguar CORDERO Primary Care Provider [phone] Cook PA-CJaguar Primary Care Provider [phone] Cook PA-CJaguar Nicolette Primary Care Provider [phone] Cook PA-C, Jaguar Nicolette Primary Care Provider [phone] Cook PA-C, M Nicolette Primary Care Provider [phone] COOK M NICOLETTE Primary Care Unavailable COOK, M NICOLETTE Primary Care Unavailable MIGNON OROZCO Attending Unavailable COOK, M NICOLETTE Primary Care Unavailable COOK, M NICOLETTE Primary Care Unavailable COOK, M NICOLETTE Attending Unavailable COOK, M NICOLETTE Primary Care Unavailable PRASEVERIANO-GISSEL JESSICA Referring Unavailable COOK, M NICOLETTE Primary Care Unavailable PRAISLER-WOOD JESSICA Referring Unavailable COOK, M NICOLETTE Primary Care Unavailable COOK, M NICOLETTE Primary Care Unavailable COOK, M NICOLETTE Primary Care Unavailable COOK, M NICOLETTE Primary Care Unavailable ANIYA RAMÍREZ Attending Unavailable COOK, M NICOLETTE Primary Care Unavailable ANIYA RAMÍREZ Referring Unavailable COOK, M NICOLETTE Primary Care Unavailable COOK, M NICOLETTE Primary Care Unavailable CLARK ZALDIVAR Attending Unavailable COOK, M NICOLETTE Primary Care Unavailable COOK, M NICOLETTE Primary Care Unavailable ANIYA RAMÍREZ Attending Unavailable INDIGO CANDELARIO Referring Unavailable COOK, M NICOLETTE Primary Care Unavailable ANIAY RAMÍREZ Referring Unavailable COOK, Jaguar NICOLETTE Primary Care Unavailable JONAH IBRAHIM Attending Unavailable SELF Referring Unavailable COOK, M NICOLETTE Primary Care Unavailable COOK, M NICOLETTE Primary Care Unavailable MIGNON OROZCO Referring Unavailable COOK, M NICOLETTE Primary Care Unavailable COOK, M NICOLETTE Primary Care Unavailable JOHN ZARAGOZA Referring Unavailable COOK, M NICOLETTE Referring Unavailable COOK, M NICOLETTE Primary Care Unavailable COOK, M NICOLETTE Primary Care Unavailable COOK, M NICOLETTE Primary Care Unavailable COOK, M NICOLETTE Primary Care Unavailable MIGNON OROZCO Attending Unavailable DARRELL, ANIYA Attending Unavailable COOK, M NICOLETTE Primary Care Unavailable COOK, M NICOLETTE Primary Care Unavailable COOK, M NICOLETTE Primary Care Unavailable COOK, M NICOLETTE Primary Care Unavailable JONAH IBRAHIM Attending Unavailable YEISON IGNACIO Referring Unavailable Suppan GAME PROGRAMMER.NEWSPAPER OR PERIODICAL EDITOR, Mignon Garcia Primary Care Provi zoe Allergies Allergy Classification Reported Allergen(s) Allergy Type Date of Onset Reaction(s) Facility house dust allergenic extract (3 sources) house dust allergenic extract Drug Allergy 0 Cough [facility] Nitroimidazoles (antibiotic) (2 sources) metroNIDAZOLE Drug Allergy 2 GI Upset [facility] (20 sources) house dust allergenic extract; Translations: [HOUSE DUST] Drug Allergy 0 [facility] (20 sources) Seasonal allergy; Translations: [SEASONAL ALLERGIES] Allergy to substance 9 Shortness of Breath [facility] (20 sources) Maple Flavor; Translations: [MAPLE FLAVOR] Drug Allergy 0 Swelling [facility] (20 sources) metroNIDAZOLE; Translations: [METRONIDAZOLE] Drug Allergy 2 GI Upset [facility] Medications Current Medications Medication Drug Class(es) Dates Sig (Normalized) Sig (Original) [id number] 200 actuat albuterol 0.09 mg/actuat metered dose inhaler (20 sources) beta2-Adrenergic Agonist Start: 08-16-2021 End: 03-28-2024 take 2 puff(s) by inhalation every six hours as needed for wheezing albuterol HFA (PROVENTIL HFA, VENTOLIN HFA) 90 mcg/actuation inhaler Indications: SOB (shortness of breath) Inhale 2 Puffs as instructed every 6 hours as needed for wheezing/shortnes s of breath. 6.7 g 5 03/28/2024 Active Start: 07-13-2020 End: 02-21-2021 take 2 puff(s) by inhalation every six hours as needed albuterol HFA (PROVENTIL HFA, VENTOLIN HFA) 90 mcg/actuation inhaler Indications: SOB (shortness of breath) Inhale 2 Puffs as instructed every 6 hours as needed. 6.7 g 5 07/13/2020 02/21/2021 Discontinued Comment on above: Inhale 2 Puffs as in structed every 6 hours as needed. Inhale 2 Puffs as in structed every 6 hours as needed for wheezing/shortness of breath. betamethasone 0.5 mg/ml / clotrimazole 10 mg/ml topical cream (19 sources) Azole Antifungal, Corticosteroid Start: 04-23-2023 End: 04-30-2023 clotrimazole-betametha sone (LOTRISONE) cream Apply 1 application to affected area twice daily for 7 days. 15 g 0 04/23/2023 04/30/2023 Active Start: 04-14-2022 End: 08-04-2022 clotrimazole-betamethasone ( LOTRISONE) cream Indications: Vaginal itching Apply 1 application to affected area twice daily. 15 g 2 04/14/2022 08/04/2022 Discontinued Start: 10-29-2020 End: 11-05-2020 clotrimazole-betamethasone ( LOTRISONE) cream Indications: Tinea corporis Apply 1 application to affected area twice daily for 7 days. UNTIL CLEAR FOR UP TO 2-3 WEEKS 15 g 10/29/2020 11/05/2020 Comment on above: Apply 1 application to affected area twice daily. Apply 1 application to affected area twice daily for 7 days. cholecalciferol 0.025 mg oral capsule (20 sources) Vitamin D Start: 017 take 1 capsule by mouth once daily Cholecalciferol, Vitamin D3, 1,000 unit cap Take 1 capsule by mouth once daily. 0 08/20/2017 Active Comment on above: Take 1 capsule by [facility] once daily. clindamycin 300 mg oral capsule (1 source) Lincosamide Antibacterial Start: End: take 1 capsule by mouth twice daily clindamycin (CLEOCIN) 300 mg capsule Indications: BV (bacterial vaginosis) Take 1 capsule by mouth twice daily for 7 days. 14 capsule 0 01/10/2023 01/17/2023 Active Comment on above: Take 1 capsule by [facility] twice daily for 7 days. colestipol hydrochloride 1000 mg oral tablet (10 sources) Bile Acid Sequestrant Start: take 1 tablet by mouth once daily at bedtime, then take 2 tablets by mouth once daily at bedtime colestipol (COLESTID) 1 gram tablet Start with 1 tablet PO QHS. Increase to 2 tabs QHS as directed. Reduce dose if constipation occurs. 120 tablet 5 05/20/2024 Active cyclobenzaprine hydrochloride 10 mg oral tablet (20 sources) Muscle Relaxant Start: End: take 1 tablet by mouth every eight hours as needed cyclobenzaprine (FLEXERIL) 10 mg tablet Take 1 tablet by mouth three times a day as needed for muscle spasm. 15 tablet 05/29/2024 Active Start: 02-08-2022 End: 05-09-2022 take 1 tablet by mouth every eight hours as needed cyclobenzaprine (FLEXERIL) 10 mg tablet Take 1 tablet by mouth three times daily as needed for muscle spasm. 30 tablet 2 02/08/2022 05/09/2022 Active Comment on above: Take 1 tablet by jv three times daily as needed for muscle spasm. Take 1 tablet by jv three times daily as needed. Take 1 tablet by jv th three times a day as needed for muscle spasm. dibucaine 0.01 mg/mg rectal ointment (8 sources) Standardized Chemical Allergen Start: 2 End: dibucaine (NUPERCAINAL) 1 % oint by RECTAL route as needed (as directed). 57 g 3 04/26/2022 05/26/2022 Active Comment on above: by RECTAL route as n eeded (as directed). doxycycline hyclate 100 mg oral tablet (14 sources) Tetracycline-class Drug Start: End: take 1 tablet by mouth twice daily doxycycline (VIBRA-TABS) 100 mg tablet Indications: Mycoplasma infection Take 1 tablet by mouth two times a day for 7 days. 14 tablet 07/23/2024 07/30/2024 Active Start: 05-02-2024 End: 05-09-2024 take 1 tablet by mouth twice daily doxycycline (VIBRA-TABS) 100 mg tablet Take 1 tablet by mouth two times a day for 7 days. 14 tablet 0 05/02/2024 05/09/2024 Active Start: 12-21-2023 End: 12-28-2023 take 1 tablet by mouth twice daily doxycycline (VIBRA-TABS) 100 mg tablet Take 1 tablet by mouth two times a day for 7 days. 14 tablet 0 12/21/2023 12/28/2023 Active Start: 03-15-2023 End: 03-20-2023 take 1 tablet by mouth twice daily doxycycline (VIBRA-TABS) 100 mg tablet Take 1 tablet by mouth twice daily for 5 days. 10 tablet 0 03/15/2023 03/20/2023 Start: 10-30-2022 End: 11-06-2022 take 1 tablet by mouth twice daily doxycycline monohydrate 100 mg tablet Indications: Bacterial pneumonia Take 1 tablet by mouth twice daily for 7 days. 20 tablet 0 10/30/2022 11/06/2022 Comment on above: Take 1 tablet by jv twice daily for 7 days. Take 1 tablet by jv twice daily for 5 days. Take 1 tablet by jv th two times a day for 7 days. fluticasone propionate 0.05 mg/actuat metered dose nasal spray (20 sources) Corticosteroid Start: End: take 2 spray(s) by mouth once daily fluticasone (FLONASE) 50 mcg/actuation nasal spray Indications: Other allergic rhinitis Use 2 Sprays in each nostril once daily. Rinse mouth after use. 1 Each 5 05/29/2024 Active Start: 08-29-2022 End: 11-06-2022 take 2 spray(s) by mouth once daily fluticasone (FLONASE) 50 mcg/actuation nasal spray Use 2 Sprays in each nostril once daily. Rinse mouth after use. 1 Each 11 08/29/2022 11/06/2022 Discontinued Start: 08-09-2020 End: 08-31-2021 take 2 spray(s) by mouth once daily fluticasone (FLONASE) 50 mcg/actuation nasal spray Use 2 Sprays in each nostril once daily. Rinse mouth after use. 1 Bottle 11 08/09/2020 08/31/2021 Discontinued Comment on above: Use 2 Sprays in each nostril once daily. Rinse mouth after use. hyoscyamine sulfate 0.125 mg sublingual tablet (18 sources) Start: 4 take 0.125 mg under the tongue every four hours as needed hyoscyamine sublingual (LEVSIN/SL) 0.125 mg Dissolve 1 tablet under the tongue every 4 hours as needed (abdominal pain). 60 tablet 3 05/20/2024 Active iv contrast (will be provided with radiology test) (7 sources) Start: 4 End: 4 iv contrast (will be provided with radiology test) Indications: Hepatic lesion MRI LIVER (EOVIST) Inject, intravenously, once for 1 dose. No IV access, insert saline lock prior to the beginning of sedation, infusion, injection of imaging exam. Discontinue saline lock post exam. If Pt. has a central line or IVAD, may access for administration according to line specific nursing protocol. Once exam is complete flush line and de-access according to line specific nursing protocol in the MR contrast administration guidelines link. 1 Each 05/20/2024 05/21/2024 Active Start: 03-27-2022 End: 03-28-2022 iv contrast (will be provide d with radiology test) MRI Liver Inject, intravenously, once for 1 dose. No IV access, insert saline lock prior to the beginning of sedation, infusion, injection of imaging exam. Discontinue saline lock post exam. If Pt. has a central line or IVAD, may access for administration according to line specific nursing protocol. Once exam is complete flush line and de-access according to line specific nursing protocol in the MR contrast administration guidelines link. 1 Each 0 03/27/2022 03/28/2022 Start: 02-01-2022 End: 02-02-2022 iv contrast (will be provide d with radiology test) MRI Liver Inject, intravenously, once for 1 dose. No IV access, insert saline lock prior to the beginning of sedation, infusion, injection of imaging exam. Discontinue saline lock post exam. If Pt. has a central line or IVAD, may access for administration according to line specific nursing protocol. Once exam is complete flush line and de-access according to line specific nursing protocol in the MR contrast administration guidelines link. 1 Each 0 02/01/2022 02/02/2022 Active Comment on above: MRI Liver Inject, in travenously, once for 1 dose. No IV access, insert saline lock prior to the beginning of sedation, infusion, injection of imaging exam. Discontinue saline lock post exam. If Pt. has a central line or IVAD, may access for administration according to line specific nursing protocol. Once exam is complete flush line and de-access according to line specific nursing protocol in the MR contrast administration guidelines link. lactobacillus acidophilus 460 mg oral capsule (20 sources) Start: End: take 1 capsule by mouth once daily Lactobacillus acidophilus (FLORAJEN ACIDOPHILUS) 20 billion cell capsule Take 1 capsule by mouth once daily. 30 capsule 11 04/30/2024 Active Comment on above: Take 1 capsule by [facility] once daily. levonorgestrel 0.515933 mg/hr intrauterine system (20 sources) Progestin, Progestin-containing Intrauterine Device Start: End: levonorgestrel (MIRENA) 20 mcg/24 hours (5 yrs) 52 mg IUD Indications: Encounter for IUD insertion 1 Each by INTRAUTERINE route as directed. 1 Each 07/02/2020 07/01/2025 Active Comment on above: 1 Each by INTRAUTERI NE route as directed. lisinopril 20 mg oral tablet (20 sources) Angiotensin Converting Enzyme Inhibitor Start: End: take 1 tablet by mouth twice daily lisinopril (ZESTRIL) 20 mg tablet Indications: Essential hypertension Take 1 tablet by mouth two times a day. 60 tablet 5 03/13/2024 09/09/2024 Active Start: 01-07-2024 End: 01-06-2025 take 1 tablet by mouth once daily lisinopril (ZESTRIL) 30 mg tablet Indications: Essential hypertension Take 1 tablet by mouth once daily. 90 tablet 3 01/07/2024 03/13/2024 Discontinued (Clinical Decision) Start: 01-07-2024 End: 01-07-2024 take 3 tablets by mouth once daily lisinopril (ZESTRIL) 10 mg tablet Indications: Essential hypertension Take 3 tablets by mouth once daily. 30 tablet 2 01/07/2024 01/07/2024 Discontinued (Duplicate Entry) Start: 05-29-2023 End: 01-07-2024 take 1 tablet by mouth once daily lisinopril (ZESTRIL) 10 mg tablet Indications: Essential hypertension Take 1 tablet by mouth once daily. 30 tablet 0 12/24/2023 Active Comment on above: Take 1 tablet by jv th once daily. Take 3 tablets by mo [facility] once daily. metoprolol tartrate 50 mg oral tablet (20 sources) beta-Adrenergic [place]akia Start: 04-16-20 End: 04-29-20 take 1 tablet by mouth twice daily metoprolol tartrate, short acting, (LOPRESSOR) 50 mg tablet Indications: Essential hypertension Take 1 tablet by mouth two times a day. 180 tablet 3 04/30/2024 Active Comment on above: Take 1 tablet by jv th twice daily. metroNIDAZOLE 500 mg oral tablet (9 sources) Nitroimidazole Antimicrobial Start: 07-17-20 End: 07-24-20 take 1 tablet by mouth twice daily metroNIDAZOLE (FLAGYL) 500 mg tablet Take 1 tablet by mouth two times a day for 7 days. 14 tablet 07/17/2024 07/24/2024 Active Start: 03-06-2024 End: 03-11-2024 metroNIDAZOLE (METROGEL) 0.7 5 % (37.5mg/5 gram) Vaginal Gel Use 1 Applicatorful vaginally daily at bedtime for 5 days. 70 g 0 03/06/2024 03/11/2024 Active Start: 09-07-2023 End: 09-12-2023 metroNIDAZOLE (METROGEL) 0.7 5 % (37.5mg/5 gram) Vaginal Gel Use 1 Applicatorful vaginally daily at bedtime for 5 days. 70 g 0 09/07/2023 09/12/2023 Active Start: 07-12-2023 End: 07-17-2023 metroNIDAZOLE (METROGEL) 0.7 5 % (37.5mg/5 gram) Vaginal Gel Use 1 Applicatorful vaginally daily at bedtime for 5 days. 70 g 0 07/12/2023 07/17/2023 Active Start: 04-17-2022 End: 04-24-2022 take 1 tablet by mouth twice daily metroNIDAZOLE (FLAGYL) 500 mg tablet Take 1 tablet by mouth twice daily for 7 days. 14 tablet 0 04/17/2022 04/24/2022 Active Comment on above: Take 1 tablet by jv th twice daily for 7 days. Use 1 Applicatorful vaginally daily at bedtime for 5 days. miconazole nitrate 20 mg/ml vaginal cream (1 source) Azole Antifungal Start: 05-19-20 End: 05-26-20 miconazole (MONISTAT 7) 2 % vaginal cream Indications: Acute vaginitis , Sensation of pressure in bladder area , Pelvic pain in female Use 1 Applicator vaginally daily at bedtime for 7 days. 45 g 2 05/19/2022 05/26/2022 Active Comment on above: Use 1 Applicator vag inally daily at bedtime for 7 days. moxifloxacin 400 mg oral tablet (3 sources) Quinolone Antimicrobial Start: 07-23-20 End: 07-30-20 take 1 tablet by mouth once daily moxifloxacin (AVELOX) 400 mg tablet Indications: Mycoplasma infection Take 1 tablet by mouth once daily for 7 days. 7 tablet 07/23/2024 07/30/2024 Active Start: 05-02-2024 End: 05-09-2024 take 1 tablet by mouth once daily moxifloxacin (AVELOX) 400 mg tablet Take 1 tablet by mouth once daily for 7 days. 7 tablet 0 05/02/2024 05/09/2024 Active nitrofurantoin, macrocrystals 25 mg / nitrofurantoin, monohydrate 75 mg oral capsule (8 sources) Nitrofuran Antibacterial Start: 11-28-2023 End: 12-03-2023 take 1 capsule by mouth twice daily nitrofurantoin monohydrate and macrocrystal (MACROBID) 100 mg capsule Take 1 capsule by mouth two times a day for 5 days. 10 capsule 0 11/28/2023 12/03/2023 Active Start: 07-11-2023 End: 07-18-2023 take 1 capsule by mouth twice daily nitrofurantoin monohydrate and macrocrystal (MACROBID) 100 mg capsule Indications: Urinary frequency Take 1 capsule by mouth two times a day for 7 days. 14 capsule 0 07/11/2023 07/18/2023 Start: 05-09-2022 End: 05-14-2022 take 1 capsule by mouth twice daily nitrofurantoin monohydrate and macrocrystal (MACROBID) 100 mg capsule Take 1 capsule by mouth twice daily for 5 days. 10 capsule 0 05/09/2022 05/14/2022 Active Comment on above: Take 1 capsule by mo [facility] twice daily for 5 days. Take 1 capsule by mo [facility] two times a day for 7 days. Take 1 capsule by mo ut two times a day for 5 days. omeprazole 20 mg delayed release oral tablet (20 sources) Proton Pump Inhibitor Start: 08-16-2021 End: 10-27-2024 take 1 tablet by mouth once daily Omeprazole Magnesium (PRILOSEC OTC) 20 mg tablet Take 1 tablet by mouth once daily. 30 tablet 5 04/30/2024 10/27/2024 Active Start: 07-13-2020 End: 02-21-2021 take 1 tablet by mouth once daily Omeprazole Magnesium (PRILOSEC OTC) 20 mg tablet Take 1 tablet by mouth once daily. 30 tablet 5 07/13/2020 02/21/2021 Discontinued Comment on above: Take 1 tablet by [facility] once daily. ondansetron 4 mg disintegrating oral tablet (20 sources) Serotonin-3 Receptor Antagonist Start: 11-22-19 End: 04-29-20 take 1 tablet by mouth every six hours as needed ondansetron orally disintegrating (ZOFRAN ODT) 4 mg disintegrating tablet Take 1 tablet by mouth every 6 hours as needed for nausea/vomiting. 10 tablet 1 04/30/2024 Active Start: 11-25-2021 End: 08-06-2023 take 1 tablet by mouth every six hours as needed ondansetron orally disintegrating (ZOFRAN ODT) 4 mg disintegrating tablet Take 1 tablet by mouth every 6 hours as needed for nausea/vomiting. 10 tablet 1 06/15/2022 03/14/2023 Discontinued Comment on above: Take 1 tablet by jv th every 6 hours as needed for nausea/vomiting. 24 hr oxybutynin chloride 5 mg extended release oral tablet (20 sources) Cholinergic Muscarinic Antagonist Start: End: take 1 tablet by mouth once daily oxybutynin XL (DITROPAN XL) 5 mg 24 hr tablet Take 1 tablet by mouth once daily. 30 tablet 5 06/09/2024 12/06/2024 Active Start: 03-20-2023 End: 04-05-2024 take 1 tablet by mouth once daily oxybutynin XL (DITROPAN XL) 5 mg 24 hr tablet Indications: OAB (overactive bladder) Take 1 tablet by mouth once daily. 90 tablet 1 10/08/2023 11/22/2023 Discontinued Comment on above: Take 1 tablet by jv once daily. perflutren lipid microspheres 1.3 mL in NaCl (PF) 0.9% 10 mL injection (DEFINITY) (20 sources) Start: 03-28-2021 End: 06-27-2022 perflutren lipid microspheres 1.3 mL in NaCl (PF) 0.9% 10 mL injection (DEFINITY) polyethylene glycol 3350 [id number] mg / potassium chloride 2970 mg / sodium bicarbonate 6740 mg / sodium chloride 5860 mg / sodium sulfate 86491 mg powder for oral solution (20 sources) Osmotic Laxative Start: 04-24-2022 End: 04-24-2022 peg 3350-Electrolytes (GOLYTELY) 236-22.74-6.74 -5.86 gram suspension Take 4,000 mL by mouth one time only for 1 dose. 1 Each 0 04/24/2022 04/24/2022 Active Start: 10-18-2021 End: 08-08-2022 peg 3350-Electrolytes (GOLYT VIKASH) 236-22.74-6.74 -5.86 gram suspension Refer to printed prep instructions from your provider. 4000 mL 0 10/18/2021 08/08/2022 Discontinued Comment on above: Refer to printed pre p instructions from your provider. Take 4,000 mL by jv th one time only for 1 dose. simvastatin 10 mg oral tablet (20 sources) HMG-CoA Reductase Inhibitor Start: 08-13-20 End: 03-28-20 take 1 tablet by mouth once daily simvastatin (ZOCOR) 10 mg tablet Take 1 tablet by mouth once daily. 30 tablet 11 03/28/2024 Active Comment on above: Take 1 tablet by jv th once daily. 125 ml sodium chloride 9 mg/ml prefilled syringe (20 sources) Start: 03-28-20 End: 06-27-20 sodium chloride 0.9 % (flush) 10 mL (BD POSIFLUSH) sulfamethoxazole 800 mg / trimethoprim 160 mg oral tablet (4 sources) Dihydrofolate Reductase Inhibitor Antibacterial, Sulfonamide Antimicrobial Start: 01-24-20 End: 01-27-20 take 1 tablet by mouth twice daily sulfamethoxazole-t rimethoprim (BACTRIM DS) 800-160 mg per tablet Take 1 tablet by mouth twice daily for 3 days. 6 tablet 0 01/23/2022 01/26/2022 Active Comment on above: Take 1 tablet by jv twice daily for 3 days. Completed/Discontinued Medications Medication Drug Class(es) Dates Sig (Normalized) Sig (Original) cefTRIAXone 500 mg injection (2 sources) Cephalosporin Antibacterial Start: 02-27-2024 End: 02-27-2024 cefTRIAXone 500 mg intramuscular injection (ROCEPHIN) citalopram 40 mg oral tablet (1 source) Serotonin Reuptake Inhibitor Start: 08-09-2020 End: 02-21-2021 take 1 tablet by mouth once daily citalopram (CELEXA) 40 mg tablet Take 1 tablet by mouth once daily. 90 tablet 1 08/09/2020 02/21/2021 Discontinued fluconazole 150 mg oral tablet (12 sources) Azole Antifungal Start: 07-23-2024 End: 07-23-2024 take 1 tablet by mouth once fluconazole (DIFLUCAN) 150 mg tablet Take 1 tablet by mouth one time only for 1 dose. 1 tablet 07/23/2024 07/23/2024 Start: 06-05-2024 End: 06-05-2024 take 1 tablet by mouth once fluconazole (DIFLUCAN) 150 mg tablet Indications: Vaginal itching Take 1 tablet by mouth one time only for 1 dose. 1 tablet 06/05/2024 06/05/2024 Active Start: 02-27-2024 End: 02-27-2024 fluconazole (DIFLUCAN) 150 m g tablet Take 1 tablet by mouth one time only for 1 dose. Repeat in 3 days as needed. 2 tablet 0 02/27/2024 02/27/2024 Start: 09-07-2023 End: 09-07-2023 take 1 tablet by mouth once fluconazole (DIFLUCAN) 150 mg tablet Take 1 tablet by mouth one time only for 1 dose. 1 tablet 0 09/07/2023 09/07/2023 Active Start: 07-06-2023 End: 07-06-2023 take 1 tablet by mouth once fluconazole (DIFLUCAN) 150 mg tablet Take 1 tablet by mouth one time only for 1 dose. 1 tablet 0 07/06/2023 07/06/2023 Start: 04-16-2023 End: 04-16-2023 take 1 tablet by mouth once fluconazole (DIFLUCAN) 150 mg tablet Take 1 tablet by mouth one time only for 1 dose. 1 tablet 0 04/16/2023 04/16/2023 Start: 03-14-2023 End: 03-14-2023 take 1 tablet by mouth once fluconazole (DIFLUCAN) 150 mg tablet Take 1 tablet by mouth one time only for 1 dose. 1 tablet 0 03/14/2023 03/14/2023 Start: 09-29-2022 End: 09-29-2022 take 1 tablet by mouth once fluconazole (DIFLUCAN) 150 mg tablet Take 1 tablet by mouth one time only for 1 dose. 1 tablet 0 09/29/2022 09/29/2022 Start: 08-09-2022 End: 08-09-2022 take 1 tablet by mouth once fluconazole (DIFLUCAN) 150 mg tablet Take 1 tablet by mouth one time only for 1 dose. 1 tablet 0 08/09/2022 08/09/2022 Active Comment on above: Take 1 tablet by jv th one time only for 1 dose. ibuprofen 800 mg oral tablet (20 sources) Nonsteroidal Anti-inflammatory Drug Start: End: take 1 tablet by mouth every eight hours as needed for pain ibuprofen (MOTRIN) 800 mg tablet Indications: Fibromyalgia Take 1 tablet by mouth every 8 hours as needed (FOR PAIN. TAKE WITH FOOD). 60 tablet 2 01/07/2024 04/06/2024 Start: 06-21-2022 End: 09-19-2022 take 1 tablet by mouth every eight hours as needed ibuprofen (MOTRIN) 800 mg tablet Take 1 tablet by mouth every 8 hours as needed (FOR PAIN. TAKE WITH FOOD). 60 tablet 2 06/21/2022 09/19/2022 Start: 02-08-2022 End: 05-09-2022 take 1 tablet by mouth every eight hours as needed ibuprofen (MOTRIN) 800 mg tablet Take 1 tablet by mouth every 8 hours as needed (FOR PAIN. TAKE WITH FOOD). 60 tablet 2 02/08/2022 05/09/2022 Active Comment on above: Take 1 tablet by jv th every 8 hours as needed (FOR PAIN. TAKE WITH FOOD). 24 hr loratadine 10 mg / pseudoephedrine sulfate 240 mg extended release oral tablet (1 source) alpha-Adrenergic Agonist Start: End: take 1 tablet by mouth once daily loratadine-pseudoephed rine ER (CLARITIN-D 24) 10-240 mg Tb24 Indications: Chronic congestion of paranasal sinus Take 1 tablet by mouth once daily. 30 tablet 1 05/14/2020 09/27/2021 Discontinued (Discontinued by Patient) meloxicam 15 mg oral tablet (14 sources) Nonsteroidal Anti-inflammatory Drug Start: 023 End: 023 take 1 tablet by mouth once daily meloxicam (MOBIC) 15 mg tablet Take 1 tablet by mouth once daily. 30 tablet 1 10/09/2022 11/06/2022 Discontinued Comment on above: Take 1 tablet by jv th once daily. miSOPROStol 0.2 mg oral tablet (1 source) Prostaglandin E1 Analog Start: End: miSOPROStol (CYTOTEC) 200 mcg tablet Indications: Menorrhagia with regular cycle Insert 2 tablets vaginally night prior to procedure and 2 tablets morning of procedure. 4 tablet 12/05/2019 09/27/2021 Discontinued (Discontinued by Patient) nystatin 100 unt/mg / triamcinolone acetonide 0.001 mg/mg topical ointment (5 sources) Polyene Antifungal, Corticosteroid Start: End: nystatin-triamcinolone (MYCOLOG) ointment Apply sparingly to perineum twice daily for irritation/infection. 30 g 0 08/05/2023 11/22/2023 Discontinued Comment on above: Apply sparingly to p erineum twice daily for irritation/infection. 24 hr PARoxetine hydrochloride 12.5 mg extended release oral tablet (17 sources) Serotonin Reuptake Inhibitor Start: End: take 1 tablet by mouth once daily PARoxetine ER (PAXIL CR) 12.5 mg 24 hr tablet Indications: Anxiety state , Perimenopausal Take 1 tablet by mouth once daily. 30 tablet 2 11/06/2022 01/11/2023 Discontinued Comment on above: Take 1 tablet by jv once daily. phenazopyridine hydrochloride 200 mg oral tablet (13 sources) Start: End: take 1 tablet by mouth every eight hours as needed phenazopyridine (PYRIDIUM) 200 mg tablet Take 1 tablet by mouth three times daily as needed. 6 tablet 0 05/07/2022 08/08/2022 Discontinued Comment on above: Take 1 tablet by jv three times daily as needed. polyethylene glycol 3350 98501 mg powder for oral solution (10 sources) Osmotic Laxative Start: End: polyethylene glycol 3350 (MIRALAX) 17 gram/dose powder Indications: Acute constipation 17 g (~1 heaping tablespoon) dissolved in 120 to 240 mL (4 to 8 ounces) of beverage, once daily. 116 g 0 12/07/2023 01/07/2024 Discontinued (Discontinued by Patient) Start: 10-26-2020 End: 09-27-2021 polyethylene glycol 3350 (UT RALAX) 17 gram/dose powder Take 17 g by mouth once daily. 510 g 5 10/26/2020 09/27/2021 Discontinued (Discontinued by Patient) Comment on above: 17 g (~1 heaping tab lespoon) dissolved in 120 to 240 mL (4 to 8 ounces) of beverage, once daily. predniSONE 10 mg oral tablet (12 sources) Start: 03-20-2023 End: 03-29-2023 predniSONE (DELTASONE) 10 mg tablet Indications: Mild intermittent asthma with acute exacerbation Take 4 tabs daily for 3 days, then 2 tabs daily for 3 days, then 1 tab daily for 3 days with food. 21 tablet 0 03/20/2023 03/29/2023 Start: 10-30-2022 End: 11-06-2022 predniSONE (DELTASONE) 10 mg tablet Indications: Right leg pain , Radiculopathy, lumbar region Take 6 pills (all at once) on day 1, 5 pills on day 2, 4 pills on day 3, 3 pills on day 4, 2 pills on day 5, and 1 pill on day 6. 21 tablet 10/30/2022 11/06/2022 Discontinued Start: 09-21-2022 End: 09-26-2022 take 2 tablets by mouth once daily predniSONE (DELTASONE) 20 mg tablet Indications: Wheezing Take 2 tablets by mouth once daily for 5 days. 10 tablet 0 09/21/2022 09/26/2022 Active Start: 03-06-2022 End: 03-11-2022 take 5 tablets by mouth once daily, then take 4 tablets by mouth once daily, then take 3 tablets by mouth once daily, then take 2 tablets by mouth once daily, then take 1 tablet by mouth once daily predniSONE (DELTASONE) 10 mg tablet Indications: Acute pain of right shoulder Take 5 tablets by mouth once daily for 1 day, THEN 4 tablets once daily for 1 day, THEN 3 tablets once daily for 1 day, THEN 2 tablets once daily for 1 day, THEN 1 tablet once daily for 1 day. 15 tablet 0 03/06/2022 03/11/2022 Active Comment on above: Take 5 tablets by [facility] once daily for 1 day, THEN 4 tablets once daily for 1 day, THEN 3 tablets once daily for 1 day, THEN 2 tablets once daily for 1 day, THEN 1 tablet once daily for 1 day. Take 2 tablets by mo [facility] once daily for 5 days. Take 6 pills (all at once) on day 1, 5 pills on day 2, 4 pills on day 3, 3 pills on day 4, 2 pills on day 5, and 1 pill on day 6. Take 4 tabs daily fo r 3 days, then 2 tabs daily for 3 days, then 1 tab daily for 3 days with food. pregabalin 25 mg oral capsule (20 sources) Start: 10-30-2022 End: 02-22-2023 take 1 capsule by mouth twice daily pregabalin (LYRICA) 25 mg capsule Indications: Right leg pain , Radiculopathy, lumbar region Take 1 capsule by mouth twice daily for 10 days. 20 capsule 10/30/2022 02/22/2023 Discontinued Comment on above: Take 1 capsule by mo [facility] twice daily for 10 days. Problems Active Problems Problem Classification Problem Date Documented Da te Episodic/Chronic Abdominal pain (7 sources) Pain in female pelvis; Translations: [Pelvic and perineal pain] Onset: 4 Episodic Administrative/social admission (1 source) First encounter by subject; Translations: [Persons encountering health services in other specified circumstances] 07-22-2024 Episodic Anxiety disorders (20 sources) Generalized anxiety disorder; Translations: [Generalized anxiety disorder] Onset: 5 11-23-2017 Chronic Asthma (1 source) Mild intermittent asthma; Translations: [Mild intermittent asthma with (acute) exacerbation] Chronic Bacterial infection; unspecified site (1 source) Mycoplasma infection; Translations: [Mycoplasma infection, unspecified site] 07-23-2024 Episodic Contraceptive and procreative management (1 source) Intrauterine contraceptive device in situ; Translations: [Encounter for routine checking of intrauterine contraceptive device] Episodic Disorders of lipid metabolism (20 sources) Hyperlipidemia; Translations: [Hyperlipidemia, unspecified] Onset: 2 11-21-2016 Chronic Esophageal disorders (20 sources) Gastroesophageal reflux disease; Translations: [Gastro-esophageal reflux disease without esophagitis] Onset: 2 Chronic Essential hypertension (20 sources) Essential hypertension; Translations: [Essential (primary) hypertension] Onset: 2 Resolved: 6 04-04-2016 Chronic Genitourinary symptoms and ill-defined conditions (2 sources) Genuine stress incontinence; Translations: [Stress incontinence (female) (male)] Chronic Headache, including migraine (1 source) Migraine with aura, intractable, without status migrainosus; Translations: [Migraine with aura, intractable, without status migrainosus] Onset: 8 Chronic Headache; including migraine (3 sources) Headache; Translations: [Headache, unspecified headache type] Episodic Headache; including migraine (1 source) Headache; including migraine; Translations: [Headache, unspecified headache type] Onset: 4 Hypertension with complications and secondary hypertension (1 source) Secondary hypertension; Translations: [Secondary hypertension, unspecified] 01-04-2024 Chronic Immunizations and screening for infectious disease (10 sources) Patient encounter status; Translations: [Encounter for [...] right hand] Episodic Other connective tissue disease (1 source) Pain in right lower limb; Translations: [Pain in right leg] Episodic Other eye disorders (20 sources) Bilateral vitreous floaters; Translations: [Other vitreous opacities, bilateral] Onset: 6 10-07-2015 Chronic Other eye disorders (1 source) Pain of left eye; Translations: [Ocular pain, left eye] 06-09-2024 Episodic Other female genital disorders (1 source) Vaginal bleeding; Translations: [Abnormal uterine and vaginal bleeding, unspecified] 07-16-2024 Chronic Other female genital disorders (5 sources) Pruritus of vagina; Translations: [Other specified noninflammatory disorders of vagina] Episodic Other female genital disorders (7 sources) Vaginal discharge; Translations: [Other specified noninflammatory disorders of vagina] Episodic Other female genital disorders (2 sources) Vaginal hymen finding; Translations: [Other specified noninflammatory disorders of vagina] Episodic Other female genital disorders (3 sources) Vaginal odor; Translations: [Other specified noninflammatory disorders of vagina] Episodic Other female genital disorders (1 source) Cyst of vulva; Translations: [Vulvar cyst] Episodic Other gastrointestinal disorders (1 source) Irritable bowel syndrome with diarrhea; Translations: [Irritable bowel syndrome with diarrhea] 05-20-2024 Chronic Other gastrointestinal disorders (1 source) Abdominal bloating; Translations: [Abdominal distension (gaseous)] Episodic Other gastrointestinal disorders (3 sources) Heartburn; Translations: [Heartburn] Episodic Other gastrointestinal disorders (3 sources) Diarrhea; Translations: [Diarrhea, unspecified] Episodic Other gastrointestinal disorders (1 source) Stool finding; Translations: [Other fecal abnormalities] Episodic Other gastrointestinal disorders (2 sources) Constipation; Translations: [Constipation, unspecified] Episodic Other gastrointestinal disorders (2 sources) Acute constipation; Translations: [Constipation, unspecified] 12-07-2023 Episodic Other inflammatory condition of skin (1 source) Pruritus of vulva; Translations: [Pruritus vulvae] 05-18-2023 Episodic Other liver diseases (20 sources) Nodule of liver; Translations: [Other specified diseases of liver] Onset: 2 Chronic Other liver diseases (1 source) Lesion of liver; Translations: [Liver disease, unspecified] 05-20-2024 Chronic Other liver diseases (1 source) Other specified diseases of liver; Translations: [Liver nodule] Onset: 4 Chronic Other lower respiratory disease (4 sources) Dyspnea; Translations: [Shortness of breath] Episodic Other lower respiratory disease (1 source) Wheezing; Translations: [Wheezing] Episodic Other lower respiratory disease (2 sources) Cough; Translations: [Acute cough] Episodic Other nervous system disorders (1 source) Other chronic pain; Translations: [Chronic left shoulder pain] Onset: 3 Chronic Other non-traumatic joint disorders (1 source) Chronic pain of right upper limb; Translations: [Pain in right shoulder] Episodic Other non-traumatic joint disorders (1 source) Pain of right wrist; Translations: [Pain in right wrist] Episodic Other non-traumatic joint disorders (3 sources) Chronic pain of left upper limb; Translations: [Pain in left shoulder] 07-26-2023 Episodic Other non-traumatic joint disorders (1 source) Pain in elbow; Translations: [Pain in right elbow] 11-04-2020 Episodic Other skin disorders (2 sources) Skin lesion; Translations: [Disorder of the skin and subcutaneous tissue, unspecified] Episodic Other skin disorders (1 source) Skin tag; Translations: [Other hypertrophic disorders of the skin] Episodic Other upper respiratory disease (1 source) Allergic rhinitis; Translations: [Other allergic rhinitis] 05-29-2024 Chronic Other upper respiratory infections (1 source) Chronic sinusitis; Translations: [Chronic sinusitis, unspecified] Chronic Other upper respiratory infections (3 sources) Sore throat symptom; Translations: [Acute pharyngitis, unspecified] Episodic Pneumonia (except that caused by tuberculosis or sexually transmitted disease) (4 sources) Bacterial pneumonia; Translations: [Unspecified bacterial pneumonia] Episodic Residual codes; unclassified (1 source) Influenza-like symptoms; Translations: [Other general symptoms and signs] Episodic Sexually transmitted infections (not HIV or hepatitis) (2 sources) Gonorrhea; Translations: [Gonococcal infection, unspecified] 02-27-2024 Episodic Sprains and strains (1 source) Shoulder [...] SHOW Unclassified (1 source) OPENED IN ERROR Past or Other Problems Problem Classification Problem Date Documented Date Episodic/Chronic Blindness and vision defects (20 sources) Visual disturbance; Translations: [Unspecified visual disturbance] Onset: 10-07-19 16 10-07-2015 Episodic Cardiac dysrhythmias (20 sources) Palpitations; Translations: [Palpitations] Onset: 02-09-20 22 Episodic Conditions associated with dizziness or vertigo (20 sources) Vertigo; Translations: [Dizziness and giddiness] Onset: 10-07-19 16 10-07-2015 Episodic Diabetes mellitus without complication (20 sources) Hyperglycemia; Translations: [Hyperglycemia, unspecified] Onset: 10-27-19 Episodic Epilepsy; convulsions (20 sources) Unspecified convulsions; Translations: [Seizure] Onset: 11-22-19 18 11-23-2017 Episodic Genitourinary symptoms and ill-defined conditions (16 sources) Increased frequency of urination; Translations: [Frequency of micturition] Onset: 10-25-19 24 Episodic Hemorrhoids (20 sources) Internal hemorrhoids; Translations: [Other hemorrhoids] Onset: 02-09-20 Episodic Nonspecific chest pain (20 sources) Chest pain; Translations: [Other chest pain] Onset: 12-16-19 22 12-15-2021 Episodic Other acquired deformities (2 sources) 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dorsopathies, lumbar region; Translations: [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dorsopathies, lumbar region] Onset: 12-14-19 18 Episodic Other aftercare (1 source) Other [facility] (current) drug therapy; Translations: [Current use of proton pump inhibitor] Onset: 01-15-20 Episodic Other and unspecified benign neoplasm (20 sources) Adenoma of liver; Translations: [Benign neoplasm of liver] Onset: 08-20-20 22 08-20-2022 Episodic Other and unspecified benign neoplasm (1 source) Benign neoplasm of liver; Translations: [Adenoma of liver] Onset: 08-20-20 Episodic Other connective tissue disease (20 sources) Enthesopathy of ankle AND/OR tarsus; Translations: [Other enthesopathy of unspecified foot and ankle] Onset: 02-11-20 15 02-10-2015 Episodic Other connective tissue disease (20 sources) Peroneal tendinitis of right lower limb; Translations: [Peroneal tendinitis, right leg] Onset: 02-25-20 15 02-24-2015 Episodic Other connective tissue disease (20 sources) Fibromyalgia; Translations: [Fibromyalgia] Onset: 09-07-20 17 09-07-2017 Episodic Other connective tissue disease (20 sources) Lateral epicondylitis of right humerus; Translations: [Lateral epicondylitis, right elbow] Onset: 10-17-19 Resolved : 01-02-20 23 10-17-2022 Episodic Other connective tissue disease (1 source) Fibromyalgia; Translations: [Fibromyalgia] Onset: 09-07-20 Episodic Other female genital disorders (2 sources) Other specified noninflammatory disorders of vagina; Translations: [Vaginal odor] Onset: 12-17-19 Episodic Other gastrointestinal disorders (1 source) Constipation, unspecified; Translations: [Acute constipation] Onset: 12-07-19 Episodic Other liver diseases (20 sources) Elevated liver enzymes level; Translations: [Abnormal levels of other serum enzymes] Onset: 02-09-20 Episodic Other liver diseases (1 source) Abnormal levels of other serum enzymes; Translations: [Elevated liver enzymes] Onset: 02-09-20 Episodic Other non-traumatic joint disorders (20 sources) Pain in lower limb; Translations: [Pain in unspecified knee] Onset: 02-21-20 12 02-21-2012 Episodic Other non-traumatic joint disorders (20 sources) Shoulder pain; Translations: [Pain in right shoulder] Onset: 11-28-19 20 11-28-2019 Episodic Other non-traumatic joint disorders (6 sources) Pain in right knee; Translations: [Pain in joint, lower leg] Onset: 01-30-20 Episodic Other non-traumatic joint disorders (20 sources) Pain in right shoulder; Translations: [Pain in joint, shoulder region] Onset: 11-28-19 Resolved : 07-03-2011-28-2019 Episodic Other non-traumatic joint disorders (3 sources) Pain in left shoulder; Translations: [Pain in joint, shoulder region] Onset: 08-20-20 23 07-11-2023 Episodic Other skin disorders (20 sources) Acne; Translations: [Other acne] Onset: 07-25-20 05 08-30-2011 Episodic Spondylosis; intervertebral disc disorders; other back problems (20 sources) Low back pain; Translations: [Backache] Onset: 04-26-20 12 Resolved : 01-02-20 23 09-26-2021 Episodic Substance-related disorders (20 sources) Marijuana user; Translations: [Cannabis use, unspecified, uncomplicated] Onset: 12-31-19 13 09-26-2021 Episodic Unclassified (9 sources) Abnormal electroencephalogram [EEG]; Translations: [Cancer cervix screening status] Onset: 11-22-19 18 Episodic Results Test Name Value Interpretation Reference Range Miladis Burciaga 07-19-2024 [facility] INDIGO MEIER ([id number]) 1975 [address] [place]* Date Time Provider Department 07/19/24 JOHN ZARAGOZA [facility] During your visit today, we recorded the following information about you: John Zaragoza MD 07/19/2024 4:25 PM Signed Her test was positive for mycoplasma hominis. This is often considered normal maria dolores and relevance of this test is uncertain. Follow-up with your welder gun or primary care physician if you would like to discuss this further. Waylon Eckert MA 07/20/2024 9:31 AM Signed Patient notified of results, verbalized understanding. Informed patient recommend f/u with MANAGER ARCHITECT[facility] after completion of Flagyl if still having persistent symptoms based off of additional testing that was positive. Waylon Eckert MA Allergies As of Date: 07/19/2024 Noted Allergy Reaction HOUSE DUST 08/12/2020 3 - Cough MAPLE FLAVOR 08/12/2020 7 - Swelling SEASONAL ALLERGIES 04/09/2019 12 - Shortness of Breath Date Reviewed: 07/16/2024 Reviewed by: Xochitl Duarte MA - Fully Assessed Reason for Visit: Results [95] Cmt: Mycoplasma hominis+ Prescriptions as of 07/20/2024 - metroNIDAZOLE (FLAGYL) 500 mg tablet Take 1 tablet by mouth two times a day for 7 days. - oxybutynin XL (DITROPAN XL) 5 mg 24 hr tablet Take 1 tablet by mouth once daily. - fluticasone (FLONASE) 50 mcg/actuation nasal spray Use 2 Sprays in each nostril once daily. Rinse mouth after use. - cyclobenzaprine (FLEXERIL) 10 mg tablet Take 1 tablet by mouth three times a day as needed for muscle spasm. - hyoscyamine sublingual (LEVSIN/SL) 0.125 mg Dissolve 1 tablet under the tongue every 4 hours as needed (abdominal pain). - metoprolol tartrate, short acting, (LOPRESSOR) 50 mg tablet Take 1 tablet by mouth two times a day. - ondansetron orally disintegrating (ZOFRAN ODT) 4 mg disintegrating tablet Take 1 tablet by mouth every 6 hours as needed for nausea/vomiting. - Lactobacillus acidophilus (FLORAJEN ACIDOPHILUS) 20 billion cell capsule Take 1 capsule by mouth once daily. - Omeprazole Magnesium (PRILOSEC OTC) 20 mg tablet Take 1 tablet by mouth once daily. - albuterol HFA (PROVENTIL HFA, VENTOLIN HFA) 90 mcg/actuation inhaler Inhale 2 Puffs as instructed every 6 hours as needed for wheezing/shortness of breath. - simvastatin (ZOCOR) 10 mg tablet Take 1 tablet by mouth once daily. - lisinopril (ZESTRIL) 20 mg tablet Take 1 tablet by mouth two times a day. - levonorgestrel (MIRENA) 20 mcg/24 hours (5 yrs) 52 mg IUD 1 Each by INTRAUTERINE route as directed. - Cholecalciferol, Vitamin D3, 1,000 unit cap Take 1 capsule by mouth once daily. Problem List As Of Date 07/19/2024 Noted Resolved Anxiety state [F41.1] 07/25/2005 Other acne [L70.8] 07/25/2005 Pain in joint, lower leg [M25.569] 02/21/2012 Backache, unspecified [M54.9] 04/26/2012 Hyperlipidemia with target LDL less than 130 [E*05/03/2012 HTN (hypertension) [I10] 05/29/2012 04/04/2016 Marijuana use [F12.90] 12/30/2012 Other enthesopathy of ankle and tarsus [M77.50] 02/10/2015 Peroneal tendonitis of right lower extremity [M*02/24/2015 Vertigo [R42] 10/07/2015 Visual disturbances [H53.9] 10/07/2015 Vitreous floaters of both eyes [H43.393] 10/07/2015 Essential hypertension [I10] 04/04/2016 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] 05/15/2016 Sacroiliac joint pain [M53.3] 07/13/2016 Fibromyalgia [M79.7] 09/07/2017 Convulsion, 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 Neck pain [M54.2] 11/28/2019 Upper back pain [M54.9] 11/28/2019 Bilateral shoulder pain [M25.511, M25.512] 11/28/2019 Other chest pain [R07.89] 12/15/2021 Palpitations [R00.2] 02/08/2022 GERD (gastroesophageal reflux disease) [K21.9] 02/08/2022 Elevated liver enzymes [R74.8] 02/08/2022 Internal hemorrhoid [K64.8] 02/08/2022 Liver nodule [K76.89] 03/27/2022 Acute pain of right shoulder [M25.511] 04/05/2022 07/03/2022 Adenoma of liver [D13.4] 08/20/2022 Chronic midline low back pain without sciatica *10/17/2022 01/01/2023 Chronic neck pain [M54.2, G89.29] 10/17/2022 01/01/2023 Lateral epicondylitis, right elbow [M77.11] 10/17/2022 01/01/2023 Prediabetes [R73.03] 10/27/2022 Low back pain [M54.50] 03/20/2023 Encounter Status:Closed by WAYLON ECKERT on 07/20/24 [facility] 07-17-2024 [facility] Tele[facility] ([facility]) INDIGO MEIER ([id number]) 1975 [place] Co* Date Time Provider Department 07/17/24 JESSICA DEAN [facility] During your visit today, we recorded the following information about you: Jessica Dean PA 07/17/2024 7:13 AM Signed Please let patient know she is positive for BV. Flagyl sent to pharmacy Ghislaine Blanchard LPN 07/17/2024 7:51 AM Signed Left message for patient to return call. TISH Goldstein Krislyn P, PA 07/17/2024 7:55 AM Signed If patient returns call, please also let her know she was negative, for gonorrhea, chlamydia, trichomonas and yeast. Mango Laurent RN 07/17/2024 9:31 AM Signed Patient notified. Mango Laurent RN Allergies As of Date: 07/17/2024 Noted Allergy Reaction HOUSE DUST 08/12/2020 3 - Cough MAPLE FLAVOR 08/12/2020 7 - Swelling SEASONAL ALLERGIES 04/09/2019 12 - Shortness of Breath Date Reviewed: 07/16/2024 Reviewed by: Xochitl Duarte MA - Fully Assessed Reason for Visit: Results [95] Order(s):metroNIDAZOLE (FLAGYL) 500 mg tabletTake 1 tablet by mouth two times a day for 7 days.Disp: 14 tabletRfl: 0 Prescriptions as of 07/17/2024 - metroNIDAZOLE (FLAGYL) 500 mg tablet Take 1 tablet by mouth two times a day for 7 days. - oxybutynin XL (DITROPAN XL) 5 mg 24 hr tablet Take 1 tablet by mouth once daily. - fluticasone (FLONASE) 50 mcg/actuation nasal spray Use 2 Sprays in each nostril once daily. Rinse mouth after use. - cyclobenzaprine (FLEXERIL) 10 mg tablet Take 1 tablet by mouth three times a day as needed for muscle spasm. - hyoscyamine sublingual (LEVSIN/SL) 0.125 mg Dissolve 1 tablet under the tongue every 4 hours as needed (abdominal pain). - metoprolol tartrate, short acting, (LOPRESSOR) 50 mg tablet Take 1 tablet by mouth two times a day. - ondansetron orally disintegrating (ZOFRAN ODT) 4 mg disintegrating tablet Take 1 tablet by mouth every 6 hours as needed for nausea/vomiting. - Lactobacillus acidophilus (FLORAJEN ACIDOPHILUS) 20 billion cell capsule Take 1 capsule by mouth once daily. - Omeprazole Magnesium (PRILOSEC OTC) 20 mg tablet Take 1 tablet by mouth once daily. - albuterol HFA (PROVENTIL HFA, VENTOLIN HFA) 90 mcg/actuation inhaler Inhale 2 Puffs as instructed every 6 hours as needed for wheezing/shortness of breath. - simvastatin (ZOCOR) 10 mg tablet Take 1 tablet by mouth once daily. - lisinopril (ZESTRIL) 20 mg tablet Take 1 tablet by mouth two times a day. - levonorgestrel (MIRENA) 20 mcg/24 hours (5 yrs) 52 mg IUD 1 Each by INTRAUTERINE route as directed. - Cholecalciferol, Vitamin D3, 1,000 unit cap Take 1 capsule by mouth once daily. Problem List As Of Date 07/17/2024 Noted Resolved Anxiety state [F41.1] 07/25/2005 Other acne [L70.8] 07/25/2005 Pain in joint, lower leg [M25.569] 02/21/2012 Backache, unspecified [M54.9] 04/26/2012 Hyperlipidemia with target LDL less than 130 [E*05/03/2012 HTN (hypertension) [I10] 05/29/2012 04/04/2016 Marijuana use [F12.90] 12/30/2012 Other enthesopathy of ankle and tarsus [M77.50] 02/10/2015 Peroneal tendonitis of right lower extremity [M*02/24/2015 Vertigo [R42] 10/07/2015 Visual disturbances [H53.9] 10/07/2015 Vitreous floaters of both eyes [H43.393] 10/07/2015 Essential hypertension [I10] 04/04/2016 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] 05/15/2016 Sacroiliac joint pain [M53.3] 07/13/2016 Fibromyalgia [M79.7] 09/07/2017 Convulsion, 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 Neck pain [M54.2] 11/28/2019 Upper back pain [M54.9] 11/28/2019 Bilateral shoulder pain [M25.511, M25.512] 11/28/2019 Other chest pain [R07.89] 12/15/2021 Palpitations [R00.2] 02/08/2022 GERD (gastroesophageal reflux disease) [K21.9] 02/08/2022 Elevated liver enzymes [R74.8] 02/08/2022 Internal hemorrhoid [K64.8] 02/08/2022 Liver nodule [K76.89] 03/27/2022 Acute pain of right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 [id number] [place] [address] [place] HIV immunoassay testing algorithm interpretation (S/P/Bld) [Interp] Normal [facility] Comment on above: Order Comment: Speci men Type: BLOOD SPECIMENOrdering Facility: [facility] Address: [address] [place] [address] Result Comment: No e vidence of HIV-1 or HIV-2 infection. Should recent infection be suspected, repeat testing may be considered 2-3 weeks after this draw. [place] Rev. Code 3701.243(E): This information has been disclosed to you from confidential records protected from disclosure by state law. ???You shall make no further disclosure of this information without the specific, written, and informed release of the individual to whom it pertains or as otherwise permitted by state law. A general authorization for the release of medical or other information is not sufficient for the purpose of the release of HIV test results or diagnoses. Performed By: #### 5 195-3, 07969-1, 84356-8 ####[facility] LABCLIA [id number] [place] [address] [place] Reagin and Treponema pallidu m IgG and IgM [Interp]on 05-26-2024 T. pallidum IgG+IgM IA Ql (S) Non-Reactive Normal Nonreactive [facility] Comment on above: Order Comment: Speci men Type: BLOOD SPECIMENOrdering Facility: [facility] Address: [address] [place] [address] Performed By: #### 5 195-3, 54982-4, 83289-6 ####[facility] LABCLIA [id number] [place] [address] [place] Reagin+T pallidum IgG+IgM Se rPl-Impon 05-26-2024 Reagin and Treponema pallidum IgG and IgM [Interp] Cannot exclude recent Treponemal infection if specimen collected within 7-10 days after appearance of suspect lesions or 2-3 weeks after an exposure. Clinical correlation is required. Normal [facility] Comment on above: Order Comment: Speci men Type: BLOOD SPECIMENOrdering Facility: [facility] Address: [address] [place] [address] [place] [address] Performed By: #### 5 195-3, 10427-9, 80516-5 ####[facility] LABCLIA [id number] [address] [place] Gualberto 05-23-2024 RODDY Telephone (JAKUB) INDIGO MEIER ([id number]) 1975 [employer] Date Time Provider Department 05/23/24 CLARK ZALDIVAR During your visit today, we recorded the following information about you: Karla Em LPN 05/23/2024 2:42 PM Signed Call received from patient stating she is having worsening symptoms since starting the Colestipol on 05/20/24. Reports Increased bowel movements, bleeding and pressure from rectum. Patient asking next steps. Thanks! TISH Maguire Tracey, RN 05/23/2024 3:21 PM Signed Call to patient. Reports Increased bowel movements, bleeding and pressure from rectum after starting colestipol. Hard to go, but soft bowel movements. Advised to stop medication, proceed to ER for worsening bleeding and pressure. States understanding. JACKSON Tan Tracey, RN 05/26/2024 8:38 AM Signed Clark Zaldivar APRN.NEWSPAPER OR PERIODICAL EDITOR You13 minutes ago (8:22 AM) Got it. Stop colestipol and try 1 tbsp Metamucil instead with at least 64 oz water daily. Thanks Brianne! Call to patient, no more blood per rectum. Some cramping, but overall improving. Recommended starting 1 tbsp metamucil with at least 64 oz water daily. If any further issues, advised to call or send a Qstreamt message. Brianne Briseno RN Allergies As of Date: 05/23/2024 Noted Allergy Reaction HOUSE DUST 08/12/2020 3 - Cough MAPLE FLAVOR 08/12/2020 7 - Swelling SEASONAL ALLERGIES 04/09/2019 12 - Shortness of Breath Date Reviewed: 05/21/2024 Reviewed by: Aniya Ramírez APRN.RIZWAN - Fully Assessed Reason for Visit: Patient Update [1234] Prescriptions as of 05/26/2024 - colestipol (COLESTID) 1 gram tablet Start with 1 tablet PO QHS. Increase to 2 tabs QHS as directed. Reduce dose if constipation occurs. - hyoscyamine sublingual (LEVSIN/SL) 0.125 mg Dissolve 1 tablet under the tongue every 4 hours as needed (abdominal pain). - metoprolol tartrate, short acting, (LOPRESSOR) 50 mg tablet Take 1 tablet by mouth two times a day. - ondansetron orally disintegrating (ZOFRAN ODT) 4 mg disintegrating tablet Take 1 tablet by mouth every 6 hours as needed for nausea/vomiting. - Lactobacillus acidophilus (FLORAJEN ACIDOPHILUS) 20 billion cell capsule Take 1 capsule by mouth once daily. - Omeprazole Magnesium (PRILOSEC OTC) 20 mg tablet Take 1 tablet by mouth once daily. - albuterol HFA (PROVENTIL HFA, VENTOLIN HFA) 90 mcg/actuation inhaler Inhale 2 Puffs as instructed every 6 hours as needed for wheezing/shortness of breath. - simvastatin (ZOCOR) 10 mg tablet Take 1 tablet by mouth once daily. - lisinopril (ZESTRIL) 20 mg tablet Take 1 tablet by mouth two times a day. - fluticasone (FLONASE) 50 mcg/actuation nasal spray Use 2 Sprays in each nostril once daily. Rinse mouth after use. - cyclobenzaprine (FLEXERIL) 10 mg tablet Take 1 tablet by mouth three times a day as needed for muscle spasm. - levonorgestrel (MIRENA) 20 mcg/24 hours (5 yrs) 52 mg IUD 1 Each by INTRAUTERINE route as directed. - Cholecalciferol, Vitamin D3, 1,000 unit cap Take 1 capsule by mouth once daily. Problem List As Of Date 05/23/2024 Noted Resolved Anxiety state [F41.1] 07/25/2005 Other acne [L70.8] 07/25/2005 Pain in joint, lower leg [M25.569] 02/21/2012 Backache, unspecified [M54.9] 04/26/2012 Hyperlipidemia with target LDL less than 130 [E*05/03/2012 HTN (hypertension) [I10] 05/29/2012 04/04/2016 Marijuana use [F12.90] 12/30/2012 Other enthesopathy of ankle and tarsus [M77.50] 02/10/2015 Peroneal tendonitis of right lower extremity [M*02/24/2015 Vertigo [R42] 10/07/2015 Visual disturbances [H53.9] 10/07/2015 Vitreous floaters of both eyes [H43.393] 10/07/2015 Essential hypertension [I10] 04/04/2016 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] 05/15/2016 Sacroiliac joint pain [M53.3] 07/13/2016 Fibromyalgia [M79.7] 09/07/2017 Convulsion, 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 Neck pain [M54.2] 11/28/2019 Upper back pain [M54.9] 11/28/2019 Bilateral shoulder pain [M25.511, M25.512] 11/28/2019 Other chest pain [R07.89] 12/15/2021 Palpitations [R00.2] 02/08/2022 GERD (gastroesophageal reflux disease) [K21.9] 02/08/2022 Elevated liver enzymes [R74.8] 02/08/2022 Internal hemorrhoid [K64.8] 02/08/2022 Liver nodule [K76.89] 03/27/2022 Acute pain of right shoulder [M25.511] 04/05/2022 07/03/2022 Adenoma of liver [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.4] 08/20/2022 Chronic midline low back pain without sciatica *10/17/2022 01/01/2023 Chronic neck pain [M54.2, G89.29] 10/17/2022 01/01/2023 Lateral epicondylitis, right elbow [M77.11] 10/17/2022 01/01/2023 Prediabetes [R73.03] 10/27/2022 Low back pain [M54.50] 03/20/2023 Encounter Status:Closed by BRIANNE BRISENO on 05/26/24 Normal [facility] BACTERIAL VAGINOSIS NAATon 0 05-21-2024 Lactobacillus crispatus+gasseri+ jensenii + Gardnerella vaginalis + Atopobium vaginae rRNA DANA+probe Ql (Vag fld) Negative Normal Negative for bacterial vaginosis [facility] Comment on above: Order Comment: Speci men Type: SWABOrdering Facility: [facility] Address: [address] [place] [address] Performed By: #### B VAMP, CVTV ####[facility] LABCLIA [id number] [place] [address] [place] C. trachomatis+N. gonorrhoea e DNA DANA+probe Ql (Unsp spec)on 05-21-2024 C. trachomatis rRNA DANA+probe Ql (Unsp spec) Negative Normal Negative for Chlamydia trachomatis by amplificaton [facility] Comment on above: Order Comment: Speci men Type: SWABOrdering Facility: [facility] Address: [address] [place] [address] Performed By: #### 3 6902-5 ####[facility] LABIA [id number] [place] [address] [place] N. gonorrhoeae rRNA DANA+probe Ql (Unsp spec) Negative Normal Negative for Neisseria gonorrhoeae by amplification [facility] Comment on above: Order Comment: Speci men Type: SWABOrdering Facility: [facility] Address: [address] [place] [address] Performed By: #### 3 6902-5 ####[facility] LABCLIA [id number] [place] [address] [place] TIFFANY/TRICHOMONAS NAATon 0 05-21-2024 C. glabrata RNA DANA+probe Ql (Vag fld) Negative Normal Negative for Tiffany glabrata [facility] Comment on above: Order Comment: Speci men Type: SWABOrdering Facility: [facility] Address: [address] [place] [address] Performed By: #### Joey VAMP, CVTV ####[facility] LABIA [id number] [address] [place] Tiffany sp DNA DANA+probe Ql (Vag fld) Negative Normal Negative for Tiffany species [facility] Comment on above: Order Comment: Speci men Type: SWABOrdering Facility: [facility] Address: [address] [place] [address] Performed By: #### Joey VAMP, CVTV ####[facility] LABCLIA [id number] [place] [address] [facility] [place] T. vaginalis DNA DANA+probe Ql (Unsp spec) Negative Normal Negative for Trichomonas vaginalis by amplification [facility] Comment on above: Order Comment: Speci men Type: SWABOrdering Facility: [facility] Address: [address] [place] [address] Performed By: #### Joey VAMP, CVTV ####[facility] LABCLIA [id number] [place] [address] [place] CNOVon 05-21-2024 CNOV Office Visit (OBGYWM ) INDIGO MEIER ([id number]) 1975 [employer] Date Time Provider Department 05/21/24 3:00 PM ANIYA RAMÍREZ During your visit today, we recorded the following information about you: Pulse Respiration Blood pressure Weight 82/minute 14/minute 114/80 76.7 kg Aniya Ramírez APRN.NEWSPAPER OR PERIODICAL EDITOR 05/21/2024 3:12 PM Signed [employer] Applier offered: Patient declines. Indigo Meier is a 48 year old female who presents for problem visit of vagina itching. HPI: Indigo has had vaginal itching since completing Doxycyline. She also notes frequency of urination and pelvic pressure, but does not think she has a UTI. She is concerned about a return of parvum. She is also concerned that she may have been exposed to HIV as she thinks a sexual partner she was with had intercourse with someone who has HIV. OB History T0 L3 SAB0 IAB0 Ectopic0 Multiple0 Live Births0 Genetic Supervisor History LMP: 03/20/2024 (Exact Date), IUD Age at Menarche: Age at First : Age at Menopause: Genetic Supervisor History Comments: Sexual Activity: Yes; Male Contraception: Tubal Ligation, I.U.D. PAST MEDICAL HISTORY No date: Anxiety Comment: generalized anxiety AND panic disorder (diagnosed by PCP) No date: Chronic back pain Comment: mild scolosis and sciatica AND SI joint locks up; was seeing pain management, now sees PCP No date: GERD (gastroesophageal reflux disease) No date: Hemorrhoids 2011: Hyperlipidemia No date: Hypertension No date: Marijuana use No date: Vertigo PAST SURGICAL HISTORY No date: ABDOMINAL SURGERY HX 07/2020: BREAST REDUCTION No date: BREAST SURGERY HX 2010: CHOLECYSTECTOMY Comment: Cholecystectomy 04/25/2022: COLONOSCOPY Comment: repeat in 10 years 04/25/2022: EGD W/O BRSH SPEC VARICIES INJ 04/26/2022: HEMORROIDECTOMY INTERNAL No date: INSERTION OF IUD No date: LIG/TRNSXJ FLP TUBE ABDL/VAG APPR UNI/BI Comment: Tubal ligation No date: SHX COSMETIC SURGERY FAMILY HISTORY Problem Relation Age of Onset Hypertension Mother Hyperlipidemia Mother None Father other (Other) Father MVA - heart attack Cancer Sister 41 cervical, ?lymph Diabetes Sister Diabetes Brother Hyperlipidemia Brother Heart Brother Heart Brother CAD-quadruple bypass, age 46 Heart Brother CAD stent placement Asthma Son Allergies Son Allergies Son Colon Cancer No Family History Social History Tobacco Use Smoking status: Never Smokeless tobacco: Never Vaping Use Vaping status: Never Used Substance Use Topics Alcohol use: Not Currently Drug use: Yes Frequency: 7.0 times per week Types: Marijuana Comment: yolanda Current Outpatient Medications Medication Sig iv contrast (will be provided with radiology test) MRI LIVER (EOVIST) Inject, intravenously, once for 1 dose. No IV access, insert saline lock prior to the beginning of sedation, infusion, injection of imaging exam. Discontinue saline lock post exam. If Pt. has a central line or IVAD, may access for administration according to line specific nursing protocol. Once exam is complete flush line and de-access according to line specific nursing protocol in the MR contrast administration guidelines link. colestipol (COLESTID) 1 gram tablet Start with 1 tablet PO QHS. Increase to 2 tabs QHS as directed. Reduce dose if constipation occurs. hyoscyamine sublingual (LEVSIN/SL) 0.125 mg Dissolve 1 tablet under the tongue every 4 hours as needed (abdominal pain). metoprolol tartrate, short acting, (LOPRESSOR) 50 mg tablet Take 1 tablet by mouth two times a day. ondansetron orally disintegrating (ZOFRAN ODT) 4 mg disintegrating tablet Take 1 tablet by mouth every 6 hours as needed for nausea/vomiting. Lactobacillus acidophilus (FLORAJEN ACIDOPHILUS) 20 billion cell capsule Take 1 capsule by mouth once daily. Omeprazole Magnesium (PRILOSEC OTC) 20 mg tablet Take 1 tablet by mouth once daily. albuterol HFA (PROVENTIL HFA, VENTOLIN HFA) 90 mcg/actuation inhaler Inhale 2 Puffs as instructed every 6 hours as needed for wheezing/shortness of breath. simvastatin (ZOCOR) 10 mg tablet Take 1 tablet by mouth once daily. lisinopril (ZESTRIL) 20 mg tablet Take 1 tablet by mouth two times a day. fluticasone (FLONASE) 50 mcg/actuation nasal spray Use 2 Sprays in each nostril once daily. Rinse mouth after use. cyclobenzaprine (FLEXERIL) 10 mg tablet Take 1 tablet by mouth three times a day as needed for muscle spasm. levonorgestrel (MIRENA) 20 mcg/24 hours (5 yrs) 52 mg IUD 1 Each by INTRAUTERINE route as directed. Cholecalciferol, Vitamin D3, 1,000 unit cap Take 1 capsule by mouth once daily. No current facility-administered medications for this visit. Allergies As of Date: 05/21/2024 Allergen Noted Reaction HOUSE DUST 08/12/2020 Cough MAPLE FLAVOR 08/12/2020 Swelling SEASONAL ALLERGIES 04/09/2019 Shortness of Breath Full (more content not included)... Normal [facility] UROGENITAL UREAPLASMA AND MY COPLASMA SPECIES BY PCR, FOR GENITAL, RECTAL, URINE SAMPLESon 05-21-2024 M GENITALIUM PCR Not detected Normal [facility] Comment on above: Order Comment: Speci men Type: SWABOrdering Facility: [facility] Address: [address] [place] [address] Result Comment: INTE RPRETIVE INFORMATION: Urogenital Ureaplasma and Mycoplasma Species by PCR A negative result does not rule out the presence of PCR inhibitors in the patient specimen or test-specific nucleic acid in concentrations below the level of detection by this test. This test was developed and its performance characteristics determined by [facility]. It has not been cleared or approved by the [place] Food and Drug Administration. This test was performed in a CLIA certified laboratory and is intended for clinical purposes. Performed By: [facility] [address] [place] [address] Beam Builder: Davide Montenegro MD, PhD [place] Number: [id number] Performed By: #### U RMPCR ####[facility] BoomrCLIA [id number] [place] [address] MYCOPLAS HOMINIS PCR Not detected Normal [facility] Comment on above: Order Comment: Speci men Type: SWABOrdering Facility: [facility] Address: [address] [place] [address] Performed By: #### U RMPCR ####[facility] BoomrCLIA [id number] [place] [address] UR PARVUM PCR Not detected Normal [facility] Comment on above: Order Comment: Speci men Type: SWABOrdering Facility: [facility] Address: [address] [place] [id number] Performed By: #### U RMPCR ####[facility] [id number] [place] [address] UR UREALYTICUM PCR Not detected Normal [facility] Comment on above: Order Comment: Speci men Type: SWABOrdering Facility: [facility] Address: [address] [place] [address] Performed By: #### U RMPCR ####[facility] [id number] [place] [address] UR/MYCO SOURCE Genital Normal [facility] Comment on above: Order Comment: Speci men Type: SWABOrdering Facility: [facility] Address: [facility] [place] [address] Performed By: #### U RMPCR ####[facility] [id number] [place] [address] CNOVon 05-20-2024 CNOV Office Visit (GASTNO ) INDIGO MEIER ([id number]) 1975 [employer] Date Time Provider Department 05/20/24 1:30 PM CLARK ZALDIVAR During your visit today, we recorded the following information about you: Pulse Blood pressure Weight Height 62/minute 126/77 76.5 kg 1.6 m Clark Zaldivar, GAME PROGRAMMER.NEWSPAPER OR PERIODICAL EDITOR 05/20/2024 2:20 PM Signed DEPARTMENT OF GASTROENTEROLOGY - FOLLOW UP REASON FOR VISIT Indigo Meier is a 48 year old female who is scheduled for follow up of IBS. HISTORY OF PRESENT ILLNESS Indigo Meier is a 48 year old female who presents today for follow up of IBS. Pertinent Workup to Date: LS 08/2022 Dr. Nava- ALIDA vs hepatic adenoma and transient LFTs elevation. KUB 12/2023 constipation MRI liver 03/2022: IMPRESSION: UNIFORMLY ENHANCING NODULES IN THE RIGHT DOME OF THE LIVER AND INFERIOR LEFT LOBE OF THE LIVER WHICH ARE ISOINTENSE TO LIVER PARENCHYMA ON T2-WEIGHTED IMAGES. THESE MAY REPRESENT FOCAL NODULAR HYPERPLASIA OR HEPATIC ADENOMAS. A FOLLOW-UP LIVER MRI WITH EOVIST IS RECOMMENDED IN 3-6 MONTHS TO ASSESS STABILITY. 01/15/24: LFTs WNL EGD/colon 03/2022: - Normal examined jejunum. - Normal examined duodenum. - Gastritis. Biopsied. - Mildly severe reflux esophagitis. Biopsied. - Hemorrhoids found on perianal exam. - The examined portion of the ileum was normal. - One 6 mm polyp in the rectum, removed with a cold snare. Resected and retrieved. Clip (MR conditional) was placed. - The examination was otherwise normal on direct and retroflexion views. FINAL DIAGNOSIS A. Stomach, antrum, biopsy: - Gastric antral mucosa with no diagnostic abnormalities. B. Esophagus, distal, biopsy: - Reactive squamous and gastric cardiac-type mucosa, negative for intestinal metaplasia. C. Rectum, polyp, polypectomy: - Inflammatory-type polyp. Symptoms: 4-6 bms in the AM with lots of diarrhea. Lots of bloating. A little better after bms. Soft formed bms. Rarely loose. Very rarely misses days without bms. No bleeding. S/p hemorrhoidectomy. Some lower abdominal cramping, bloating. Nausea, no vomiting. No heartburn on 20mg omeprazole. Lots of heartburn if she doesn't take it. S/p guanako for stones 2009. Diarrhea is postprandial. Wt is stable. No NSAIDs. 12/2021: tTG WNL PAST MEDICAL HISTORY No date: Anxiety Comment: generalized anxiety AND panic disorder (diagnosed by PCP) No date: Chronic back pain Comment: mild scolosis and sciatica AND SI joint locks up; was seeing pain management, now sees PCP No date: GERD (gastroesophageal reflux disease) No date: Hemorrhoids 2011: Hyperlipidemia No date: Hypertension No date: Marijuana use No date: Vertigo PAST SURGICAL HISTORY No date: ABDOMINAL SURGERY HX 07/2020: BREAST REDUCTION No date: BREAST SURGERY HX 2009: CHOLECYSTECTOMY Comment: Cholecystectomy 04/25/2022: COLONOSCOPY Comment: repeat in 10 years 04/25/2022: EGD W/O BRSH SPEC VARICIES INJ 04/26/2022: HEMORROIDECTOMY INTERNAL No date: INSERTION OF IUD No date: LIG/TRNSXJ FLP TUBE ABDL/VAG APPR UNI/BI Comment: Tubal ligation No date: SHX COSMETIC SURGERY Allergies: House Dust Cough Maple Flavor Swelling Seasonal Allergies Shortness of Breath Current Outpatient Medications Medication Sig Dispense Refill metoprolol tartrate, short acting, (LOPRESSOR) 50 mg tablet Take 1 tablet by mouth two times a day. 180 tablet 3 ondansetron orally disintegrating (ZOFRAN ODT) 4 mg disintegrating tablet Take 1 tablet by mouth every 6 hours as needed for nausea/vomiting. 10 tablet 1 Lactobacillus acidophilus (FLORAJEN ACIDOPHILUS) 20 billion cell capsule Take 1 capsule by mouth once daily. 30 capsule 11 Omeprazole Magnesium (PRILOSEC OTC) 20 mg tablet Take 1 tablet by mouth once daily. 30 tablet 5 albuterol HFA (PROVENTIL HFA, VENTOLIN HFA) 90 mcg/actuation inhaler Inhale 2 Puffs as instructed every 6 hours as needed for wheezing/shortness of breath. 6.7 g 5 simvastatin (ZOCOR) 10 mg tablet Take 1 tablet by mouth once daily. 30 tablet 11 lisinopril (ZESTRIL) 20 mg tablet Take 1 tablet by mouth two times a day. 60 tablet 5 fluticasone (FLONASE) 50 mcg/actuation nasal spray Use 2 Sprays in each nostril once daily. Rinse mouth after use. 1 Each 5 cyclobenzaprine (FLEXERIL) 10 mg tablet Take 1 tablet by mouth three times a day as needed for muscle spasm. 15 tablet 0 levonorgestrel (MIRENA) 20 mcg/24 hours (5 yrs) 52 mg IUD 1 Each by INTRAUTERINE route as directed. 1 Each 0 Cholecalciferol, Vitamin D3, 1,000 unit cap Take 1 capsule by mouth once daily. 0 No current facility-administered medications for this visit. Social History Tobacco Use Smoking status: Never Smokeless tobacco: Never Vaping Use Vaping status: Never Used Substance Use Topics Alcohol use: Not Currently Drug use: Yes Frequency: 7.0 times per week Types: Marijuana Comment: frank (more content not included)... Normal [facility] CNCOon 05-14-2024 CNCO Letter Text Normal [facility] HBV surface Ag Ser Qlon 05-01 HBV surface Ag Ql (S) Negative Normal Negative [facility] Comment on above: Order Comment: Speci men Type: BLOOD SPECIMENOrdering Facility: [facility] Address: [address] [place], [place] [address] Performed By: #### 5 195-3, 25902-0, 01788-3 ####[facility] LABCLIA [id number] [place] [address] [place] HCV Ab Ser Qlon 05-12-2024 HCV Ab Ql (S) Negative Normal Negative [facility] Comment on above: Order Comment: Speci men Type: BLOOD SPECIMENOrdering Facility: [facility] Address: [address] [place] [address] Result Comment: The result suggests no evidence of active infection with Hepatitis C virus. Should recent infection be suspected, repeat testing may be considered 4-6 weeks after this draw. Performed By: #### 1 6128-1 ####[facility] LABCLIA [id number] [place] [address] [place] HIV 1+2 Ab IA Qlon HIV 1 and 2 Ab IA.rapid Nom (S/P/Bld) Normal [facility] Comment on above: Order Comment: Speci men Type: BLOOD SPECIMENOrdering Facility: [facility] Address: [address] [place] [address] Result Comment: Test not indicated. Performed By: #### 5 195-3, 10743-6, 90032-1 ####[facility] LABCLIA [id number] [address] [place] HIV 1+2 Ab+HIV1 p24 Ag IA Ql Non-Reactive Normal Nonreactive [facility] Comment on above: Order Comment: Speci men Type: BLOOD SPECIMENOrdering Facility: [facility] Address: [address] [place] [address] Performed By: #### 5 195-3, 35252-6, 50105-3 ####[facility] LABCLIA [id number] [place] [id number] [place] HIV immunoassay testing algorithm interpretation (S/P/Bld) [Interp] Normal [facility] Comment on above: Order Comment: Speci men Type: BLOOD SPECIMENOrdering Facility: [facility] Address: [address] [place] [address] Result Comment: No e vidence of HIV-1 or HIV-2 infection. Should recent infection be suspected, repeat testing may be considered 2-3 weeks after this draw. [place] Rev. Code 3701.243(E): This information has been disclosed to you from confidential records protected from disclosure by state law. ???You shall make no further disclosure of this information without the specific, written, and informed release of the individual to whom it pertains or as otherwise permitted by state law. A general authorization for the release of medical or other information is not sufficient for the purpose of the release of HIV test results or diagnoses. Performed By: #### 5 195-3, 53074-4, 66677-8 ####[facility] LABIA [id number] [place] [address] [place] Reagin and Treponema pallidu m IgG and IgM [Interp]on 05-12-2024 T. pallidum IgG+IgM IA Ql (S) Non-Reactive Normal Nonreactive [facility] Comment on above: Order Comment: Speci men Type: BLOOD SPECIMENOrdering Facility: [facility] Address: [address] [place] [address] Performed By: #### 5 195-3, 05039-1, 96370-7 ####[facility] [id number] [place] [address] [place] Reagin+T pallidum IgG+IgM Se rPl-Impon 05-12-2024 Reagin and Treponema pallidum IgG and IgM [Interp] Cannot exclude recent Treponemal infection if specimen collected within 7-10 days after appearance of suspect lesions or 2-3 weeks after an exposure. Clinical correlation is required. Normal [facility] Comment on above: Order Comment: Speci men Type: BLOOD SPECIMENOrdering Facility: [facility] Address: [facility] [place] [address] Performed By: #### 5 195-3, 57526-5, 56248-5 ####[facility] LABCLIA [id number] [place] [address] [id number] [place] Gualberto 05-02-2024 CNPN Telephone (OBGYWM) INDIGO MEIER ([id number]) 1975 [employer]ank[employer]* Date Time Provider Department 05/02/24 ANIYA RAMÍREZ During your visit today, we recorded the following information about you: Luci Frey RN 05/05/2024 9:12 AM Signed Pt notified and states she does not have a partner at this time. Denies questions/concerns. Luci Frey RN Allergies As of Date: 05/02/2024 Noted Allergy Reaction HOUSE DUST 08/12/2020 3 - Cough MAPLE FLAVOR 08/12/2020 7 - Swelling SEASONAL ALLERGIES 04/09/2019 12 - Shortness of Breath Date Reviewed: 04/28/2024 Reviewed by: nAiya Ramírez APRN.NEWSPAPER OR PERIODICAL EDITOR - Fully Assessed Reason for Visit: Results [95] Order(s):doxycycline (VIBRA-TABS) 100 mg tabletTake 1 tablet by mouth two times a day for 7 days.Disp: 14 tabletRfl: 0 moxifloxacin (AVELOX) 400 mg tabletTake 1 tablet by mouth once daily for 7 days.Disp: 7 tabletRfl: 0 Prescriptions as of 05/05/2024 - doxycycline (VIBRA-TABS) 100 mg tablet Take 1 tablet by mouth two times a day for 7 days. - moxifloxacin (AVELOX) 400 mg tablet Take 1 tablet by mouth once daily for 7 days. - metoprolol tartrate, short acting, (LOPRESSOR) 50 mg tablet Take 1 tablet by mouth two times a day. - ondansetron orally disintegrating (ZOFRAN ODT) 4 mg disintegrating tablet Take 1 tablet by mouth every 6 hours as needed for nausea/vomiting. - Lactobacillus acidophilus (FLORAJEN ACIDOPHILUS) 20 billion cell capsule Take 1 capsule by mouth once daily. - Omeprazole Magnesium (PRILOSEC OTC) 20 mg tablet Take 1 tablet by mouth once daily. - albuterol HFA (PROVENTIL HFA, VENTOLIN HFA) 90 mcg/actuation inhaler Inhale 2 Puffs as instructed every 6 hours as needed for wheezing/shortness of breath. - simvastatin (ZOCOR) 10 mg tablet Take 1 tablet by mouth once daily. - lisinopril (ZESTRIL) 20 mg tablet Take 1 tablet by mouth two times a day. - fluticasone (FLONASE) 50 mcg/actuation nasal spray Use 2 Sprays in each nostril once daily. Rinse mouth after use. - cyclobenzaprine (FLEXERIL) 10 mg tablet Take 1 tablet by mouth three times a day as needed for muscle spasm. - levonorgestrel (MIRENA) 20 mcg/24 hours (5 yrs) 52 mg IUD 1 Each by INTRAUTERINE route as directed. - Cholecalciferol, Vitamin D3, 1,000 unit cap Take 1 capsule by mouth once daily. Problem List As Of Date 05/02/2024 Noted Resolved Anxiety state [F41.1] 07/25/2005 Other acne [L70.8] 07/25/2005 Pain in joint, lower leg [M25.569] 02/21/2012 Backache, unspecified [M54.9] 04/26/2012 Hyperlipidemia with target LDL less than 130 [E*05/03/2012 HTN (hypertension) [I10] 05/29/2012 04/04/2016 Marijuana use [F12.90] 12/30/2012 Other enthesopathy of ankle and tarsus [M77.50] 02/10/2015 Peroneal tendonitis of right lower extremity [M*02/24/2015 Vertigo [R42] 10/07/2015 Visual disturbances [H53.9] 10/07/2015 Vitreous floaters of both eyes [H43.393] 10/07/2015 Essential hypertension [I10] 04/04/2016 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] 05/15/2016 Sacroiliac joint pain [M53.3] 07/13/2016 Fibromyalgia [M79.7] 09/07/2017 Convulsion, 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 Neck pain [M54.2] 11/28/2019 Upper back pain [M54.9] 11/28/2019 Bilateral shoulder pain [M25.511, M25.512] 11/28/2019 Other chest pain [R07.89] 12/15/2021 Palpitations [R00.2] 02/08/2022 GERD (gastroesophageal reflux disease) [K21.9] 02/08/2022 Elevated liver enzymes [R74.8] 02/08/2022 Internal hemorrhoid [K64.8] 02/08/2022 Liver nodule [K76.89] 03/27/2022 Acute pain of right shoulder [M25.511] 04/05/2022 07/03/2022 Adenoma of liver [D13.4] 08/20/2022 Chronic midline low back pain without sciatica *10/17/2022 01/01/2023 Chronic neck pain [M54.2, G89.29] 10/17/2022 01/01/2023 Lateral epicondylitis, right elbow [M77.11] 10/17/2022 01/01/2023 Prediabetes [R73.03] 10/27/2022 Low back pain [M54.50] 03/20/2023 Prescriptions ordered this encounter Disp Refills Start End DOXYCYCLINE HYCLATE 100 MG TABLET 14 t* 0 05/02/2024 05/09/2024 Route: ORAL Sig: Take 1 tablet by mouth two times a day for 7 days. MOXIFLOXACIN 400 MG TABLET 7 ta* 0 05/02/2024 05/09/2024 Route: ORAL Sig: Take 1 tablet by mouth once daily for 7 days. Encounter Status:Closed by ANIYA RAMÍREZ on 05/02/24 [facility] Gualberto 05-01-2024 CNPN Telephone (OBGYWM) INDIGO MEIER ([id number]) 1975 [employer]ank[employer]* Date Time Provider Department 05/01/24 ANIYA RAMÍREZ During your visit today, we recorded the following information about you: Brianne Garcia MA 05/01/2024 3:53 PM Signed Received a prior authorization for patient for the probiotic that you prescribed on 04/28/2024. Would you like me to complete the prior authorization? Or just have patient get a probiotic over the counter? LUIS FELIPE Reyna Emily, APRN.RIZWAN 05/01/2024 4:28 PM Signed Please let patient know prior auth may delay obtaining medication. Can purchase over the counter or wait for prior auth Aniya Ramírez APRN.Monique Cedillo RN 05/01/2024 4:59 PM Signed Left message for patient to call office. JACKSON Burrell Jennifer, RN 05/06/2024 10:27 AM Signed Patient read [employer] message, but hasn't responded with her preference. Monique Rosa RN Allergies As of Date: 05/01/2024 Noted Allergy Reaction HOUSE DUST 08/12/2020 3 - Cough MAPLE FLAVOR 08/12/2020 7 - Swelling SEASONAL ALLERGIES 04/09/2019 12 - Shortness of Breath Date Reviewed: 04/28/2024 Reviewed by: Aniya Ramírez APRN.NEWSPAPER OR PERIODICAL EDITOR - Fully Assessed Reason for Visit: Insurance Authorization [[id number]] Prescriptions as of 06/11/2024 - oxybutynin XL (DITROPAN XL) 5 mg 24 hr tablet Take 1 tablet by mouth once daily. - fluticasone (FLONASE) 50 mcg/actuation nasal spray Use 2 Sprays in each nostril once daily. Rinse mouth after use. - cyclobenzaprine (FLEXERIL) 10 mg tablet Take 1 tablet by mouth three times a day as needed for muscle spasm. - hyoscyamine sublingual (LEVSIN/SL) 0.125 mg Dissolve 1 tablet under the tongue every 4 hours as needed (abdominal pain). - metoprolol tartrate, short acting, (LOPRESSOR) 50 mg tablet Take 1 tablet by mouth two times a day. - ondansetron orally disintegrating (ZOFRAN ODT) 4 mg disintegrating tablet Take 1 tablet by mouth every 6 hours as needed for nausea/vomiting. - Lactobacillus acidophilus (FLORAJEN ACIDOPHILUS) 20 billion cell capsule Take 1 capsule by mouth once daily. - Omeprazole Magnesium (PRILOSEC OTC) 20 mg tablet Take 1 tablet by mouth once daily. - albuterol HFA (PROVENTIL HFA, VENTOLIN HFA) 90 mcg/actuation inhaler Inhale 2 Puffs as instructed every 6 hours as needed for wheezing/shortness of breath. - simvastatin (ZOCOR) 10 mg tablet Take 1 tablet by mouth once daily. - lisinopril (ZESTRIL) 20 mg tablet Take 1 tablet by mouth two times a day. - levonorgestrel (MIRENA) 20 mcg/24 hours (5 yrs) 52 mg IUD 1 Each by INTRAUTERINE route as directed. - Cholecalciferol, Vitamin D3, 1,000 unit cap Take 1 capsule by mouth once daily. Problem List As Of Date 05/01/2024 Noted Resolved Anxiety state [F41.1] 07/25/2005 Other acne [L70.8] 07/25/2005 Pain in joint, lower leg [M25.569] 02/21/2012 Backache, unspecified [M54.9] 04/26/2012 Hyperlipidemia with target LDL less than 130 [E*05/03/2012 HTN (hypertension) [I10] 05/29/2012 04/04/2016 Marijuana use [F12.90] 12/30/2012 Other enthesopathy of ankle and tarsus [M77.50] 02/10/2015 Peroneal tendonitis of right lower extremity [M*02/24/2015 Vertigo [R42] 10/07/2015 Visual disturbances [H53.9] 10/07/2015 Vitreous floaters of both eyes [H43.393] 10/07/2015 Essential hypertension [I10] 04/04/2016 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] 05/15/2016 Sacroiliac joint pain [M53.3] 07/13/2016 Fibromyalgia [M79.7] 09/07/2017 Convulsion, 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 Neck pain [M54.2] 11/28/2019 Upper back pain [M54.9] 11/28/2019 Bilateral shoulder pain [M25.511, M25.512] 11/28/2019 Other chest pain [R07.89] 12/15/2021 Palpitations [R00.2] 02/08/2022 GERD (gastroesophageal reflux disease) [K21.9] 02/08/2022 Elevated liver enzymes [R74.8] 02/08/2022 Internal hemorrhoid [K64.8] 02/08/2022 Liver nodule [K76.89] 03/27/2022 Acute pain of right shoulder [M25.511] 04/05/2022 07/03/2022 Adenoma of liver [D13.4] 08/20/2022 Chronic midline low back pain without sciatica *10/17/2022 01/01/2023 Chronic neck pain [M54.2, G89.29] 10/17/2022 01/01/2023 Lateral epicondylitis, right elbow [M77.11] 10/17/2022 01/01/2023 Prediabetes [R73.03] 10/27/2022 Low back pain [M54.50] 03/20/2023 Encounter Status:Closed by BRIANNE GARCIA on 06/11/24 Normal [facility] BACTERIAL VAGINOSIS NAATon 0 04-28-2024 Lactobacillus crispatus+gasseri+ jensenii + Gardnerella vaginalis + Atopobium vaginae rRNA DANA+probe Ql (Vag fld) Negative Normal Negative for bacterial vaginosis [facility] Comment on above: Order Comment: Speci men Type: SWABOrdering Facility: [facility] Address: [address] [place] [address] [place] [address] Performed By: #### Joey CORTES, 07173-4 ####[facility] LABCLIA [id number] [place] [address] [place] C. trachomatis+N. gonorrhoea e DNA DANA+probe Ql (Unsp spec)on 04-28-2024 C. trachomatis rRNA DANA+probe Ql (Unsp spec) Negative Normal Negative for Chlamydia trachomatis by amplificaton [facility] Comment on above: Order Comment: Speci men Type: SWABOrdering Facility: [facility] Address: [address] [place] [address] Performed By: #### B VAMP, 28642-7 ####[facility] LABCLIA [id number] [place] [address] [place] N. gonorrhoeae rRNA DANA+probe Ql (Unsp spec) Negative Normal Negative for Neisseria gonorrhoeae by amplification [facility] Comment on above: Order Comment: Speci men Type: SWABOrdering Facility: [facility] Address: [address] [place] [address] Performed By: #### B VAMP, 35799-8 ####[facility] LABCLIA [id number] [place] [address] [place] TIFFANY/TRICHOMONAS NAATon 0 04-28-2024 C. glabrata RNA DANA+probe Ql (Vag fld) Negative Normal Negative for Tiffany glabrata [facility] Comment on above: Order Comment: Speci men Type: SWABOrdering Facility: [facility] Address: [address] [place] [address] Performed By: #### C VTV ####[facility] LABCLIA [id number] [place] [address] [place] Tiffany sp DNA DANA+probe Ql (Vag fld) Negative Normal Negative for Tiffany species [facility] Comment on above: Order Comment: Speci men Type: SWABOrdering Facility: [facility] Address: [address] [place] [address] Performed By: #### C VTV ####[facility] LABCLIA [id number] [place] [address] [place] T. vaginalis DNA DANA+probe Ql (Unsp spec) Negative Normal Negative for Trichomonas vaginalis by amplification [facility] Comment on above: Order Comment: Speci men Type: SWABOrdering Facility: [facility] Address: [address] [place] [address] Performed By: #### C VTV ####[facility] LABCLIA [id number] [id number] [id number] [place] CNOVon 04-28-2024 CNOV Office Visit (OBGYWM ) INDIGO MEIER ([id number]) 1975 Sandra [employer]ank[employer]* Date Time Provider Department 04/28/24 10:45 AM ANIYA RAMÍREZ OBGYWM During your visit today, we recorded the following information about you: Pulse Respiration Blood pressure Weight 72/minute 16/minute 124/84 78 kg Last Period 03/20/24 Aniya Ramírez APRN.NEWSPAPER OR PERIODICAL EDITOR 04/28/2024 11:02 AM Signed [employer] Applier offered: Patient declines. Indigo Meier is a 48 year old female who presents for problem visit for STD screening. HPI: Indigo has concerns about partner's faithfulness and would like screened for STDs. The only symptom she is experiencing is vaginal discharge. OB History T0 L3 SAB0 IAB0 Ectopic0 Multiple0 Live Births0 Genetic Supervisor History LMP: 05/17/2023 (Exact Date), IUD Age at Menarche: Age at First : Age at Menopause: Genetic Supervisor History Comments: Sexual Activity: Yes; Male Contraception: Tubal Ligation, I.U.D. PAST MEDICAL HISTORY Diagnosis Date Anxiety generalized anxiety AND panic disorder (diagnosed by PCP) Chronic back [...] Drug use: Yes Types: Marijuana Comment: yolanda Current Outpatient Medications Medication Sig albuterol HFA (PROVENTIL HFA, VENTOLIN HFA) 90 mcg/actuation inhaler Inhale 2 Puffs as instructed every 6 hours as needed for wheezing/shortness of breath. simvastatin (ZOCOR) 10 mg tablet Take 1 tablet by mouth once daily. lisinopril (ZESTRIL) 20 mg tablet Take 1 tablet by mouth two times a day. ondansetron orally disintegrating (ZOFRAN ODT) 4 mg disintegrating tablet Take 1 tablet by mouth every 6 hours as needed for nausea/vomiting. Omeprazole Magnesium (PRILOSEC OTC) 20 mg tablet Take 1 tablet by mouth once daily. fluticasone (FLONASE) 50 mcg/actuation nasal spray Use 2 Sprays in each nostril once daily. Rinse mouth after use. cyclobenzaprine (FLEXERIL) 10 mg tablet Take 1 tablet by mouth three times a day as needed for muscle spasm. metoprolol tartrate, short acting, (LOPRESSOR) 50 mg tablet Take 1 tablet by mouth twice daily. Lactobacillus acidophilus (FLORAJEN ACIDOPHILUS) 20 billion cell cap Take 1 capsule by mouth once daily. levonorgestrel (MIRENA) 20 mcg/24 hours (5 yrs) 52 mg IUD 1 Each by INTRAUTERINE route as directed. Cholecalciferol, Vitamin D3, 1,000 unit cap Take 1 capsule by mouth once daily. No current facility-administered medications for this visit. 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: Positive for vaginal discharge Allergies and current medication updated:Yes EXAM: BP 124/84 Pulse 72 Resp 16 Wt 172 lb (78.0kg) SpO2 97% LMP 03/20/2024 GENERAL: pleasant, female in no apparent distress HEENT: Normocephalic, atraumatic, mucus membranes moist, and no lesions CHEST: Normal inspiratory effort PELVIC: external genitalia normal, normal Bartholin's glands, urethra, [place]'s glands, no vulvar lesions, no cervical lesions, good vaginal support, physiologic discharge present, normal appearing perineal body and perianal region, IUD strings not visualized BIMANUAL: uterus normal size, shape and consistency, no adnexal masses, and non-tender NEURO: alert and oriented x3,exam grossly non-focal EXTREMITIES: normal ASSESSMENT AND PLAN: 1. Screening examination for STD (sexually transmitted disease) - ICD9: V74.5, ICD10: Z11.3 (primary diagnosis) - Labs and cultures ordered - Will treat accordingly Aniya Ramírez APRN.NEWSPAPER OR PERIODICAL EDITOR Medical Decision Making: Problems: Minimal: Self-limited or minor problem Data: Unique test(s) ord (more content not included)... Normal [facility] HIGH RISK HUMAN PAPILLOMA NEHA (HPV), PCR FOR DETECTION AND GENOTYPINGon 04-28-2024 HPV 16 Ag Ql (Unsp spec) Not detected Normal Not detected [facility] Comment on above: Order Comment: Speci men Type: FLUID SPECIMENOrdering Facility: [facility] Address: [address] [place] [address] Performed By: #### L [id number], HPVHRT ####[facility] LABCLIA [id number] [facility] [place] [address] [place] HPV 18 Ag Ql (Unsp spec) Not detected Normal Not detected [facility] Comment on above: Order Comment: Speci men Type: FLUID SPECIMENOrdering Facility: [facility] Address: [address] [place] [address] Performed By: #### L [id number], HPVHRT ####[facility] LABCLIA [id number] [place] [address] [place] HPV 31+33+35+39+45+51+ 52+56+58+59+66+68 DNA DANA+probe Ql (Cvx) Not detected Normal Not detected [facility] Comment on above: Order Comment: Speci men Type: FLUID SPECIMENOrdering Facility: [facility] Address: [address] [place] [address] Result Comment: High Risk HPV Other Type includes HPV types 31, 33, 35, 39, 45, 51, 52, 56, 58, 59, 66 and 68. Performed By: #### L [id number], HPVHRT ####[facility] LABCLIA [id number] [place] [address] [place] PAP TESTon 04-28-2024 ADEQUACY Satisfactory for interpretation. Normal [facility] Comment on above: Order Comment: Speci men Type: FLUID SPECIMENOrdering Facility: [facility] Address: [address] [place] [address] Performed By: #### L [id number], HPVHRT ####[facility] LABCLIA [id number] [place] [address] [place] CASE REPORT Normal [facility] Comment on above: Order Comment: Speci men Type: FLUID SPECIMENOrdering Facility: [facility] Address: [address] [place] [address] Result Comment: Gyne cologic Cytology Report Case: [id number] Authorizing Provider: Aniya Ramírez APRN.NEWSPAPER OR PERIODICAL EDITOR Collected: 04/28/2024 11:01 AM Ordering Location: OB/Gynecology Received: 04/28/2024 11:26 AM First Screen: Edward, Karina, CT, ASCP Specimen: Pap Test, ThinPrep, Cervix Performed By: #### L [id number], HPVHRT ####[facility] LABCLIA [id number] [place] [address] [place] CLINICAL HISTORY, CYTOLOGY, MANAGER ARCHITECTURAL Vaginal Discharge Normal [facility] Comment on above: Order Comment: Speci men Type: FLUID SPECIMENOrdering Facility: [facility] Address: [address] [place] [address] Performed By: #### L [id number], HPVHRT ####[facility] LABCLIA [id number] [place] [address] [place] FINAL PERFORMING LAB Normal [facility] Comment on above: Order Comment: Speci men Type: FLUID SPECIMENOrdering Facility: [facility] Address: [address] [place] [address] Result Comment: Tech nical component, seo manager screening performed at [facility], [address] [place], [place] [id number] CLIA# [id number] Diagnostic interpretation performed at [facility], [address] [place], [place] [id number] CLIA# [id number] Beam Builder: Merrill Avendano M.D. Performed By: #### L [id number], HPVHRT ####[facility] LABCLIA [id number] [place] [address] [place] HPV REFLEX Yes HPV Normal [facility] Comment on above: Order Comment: Speci men Type: FLUID SPECIMENOrdering Facility: [facility] Address: [address] [place] [address] Performed By: #### L [id number], HPVHRT ####[facility] LABCLIA [id number] [place] [address] [place] INTERPRETATION, CYTOLOGY, MANAGER ARCHITECTURAL Normal [facility] Comment on above: Order Comment: Speci men Type: FLUID SPECIMENOrdering Facility: [facility] Address: [address] [place] [address] Result Comment: Nega tive for intraepithelial lesion or malignancy. Performed By: #### L [id number], HPVHRT ####[facility] LABCLIA [id number] [place] [address] [place] LMP 03/20/2024 Normal [facility] Comment on above: Order Comment: Speci men Type: FLUID SPECIMENOrdering Facility: [facility] Address: [address] [place] [address] Performed By: #### L [id number], HPVHRT ####[facility] LABCLIA [id number] [place] [address] [place] PAP DISCLAIMER COMMENT The Pap Smear is a screening test for cervical cancer. False negative results occur with all screening tests, emphasizing the need for rescreening at recommended intervals, and clinical correlation. Normal [facility] Comment on above: Order Comment: Speci men Type: FLUID SPECIMENOrdering Facility: [facility] Address: [address] [place] [address] Performed By: #### L [id number], HPVHRT ####[facility] LABCLIA [id number] [place] [address] [place] PAP ACCOUNTING ASSISTANT COMMENT This specimen has be en analyzed by the ThinPrep Imaging System, an automated imaging and review system, which assists the laboratory in evaluating cells on ThinPrep Pap tests. Following automated imaging, selected higginbotham from every slide are reviewed by a seo manager. Normal [facility] Comment on above: Order Comment: Speci men Type: FLUID SPECIMENOrdering Facility: [facility] Address: [address] [place] [address] Performed By: #### L [id number], HPVHRT ####[facility] LABCLIA [id number] [place] [address] [place] UROGENITAL UREAPLASMA AND MY COPLASMA SPECIES BY PCR, FOR GENITAL, RECTAL, URINE SAMPLESon 04-28-2024 M GENITALIUM PCR Not detected Normal [facility] Comment on above: Order Comment: Speci men Type: SWABOrdering Facility: [facility] Address: [address] [place] [address] Result Comment: INTE RPRETIVE INFORMATION: Urogenital Ureaplasma and Mycoplasma Species by PCR A negative result does not rule out the presence of PCR inhibitors in the patient specimen or test-specific nucleic acid in concentrations below the level of detection by this test. This test was developed and its performance characteristics determined by [employer]. It has not been cleared or approved by the US Food and Drug Administration. This test was performed in a CLIA certified laboratory and is intended for clinical purposes. Performed By: [facility] [address] [place] [address] Beam Builder: Davide Montenegro MD, PhD [place] Number: [id number] Performed By: #### U RMPCR ####[facility]IES[facility]IA [id number] [place] [address] MYCOPLAS HOMINIS PCR Not detected Normal [facility] Comment on above: Order Comment: Speci men Type: SWABOrdering Facility: [facility] Address: [address] [place] [address] Performed By: #### U RMPCR ####[facility]IESCLIA [id number] [place] [address] UR PARVUM PCR Detected Abnormal [facility] Comment on above: Order Comment: Speci men Type: SWABOrdering Facility: [facility] Address: [address] [place] [address] Performed By: #### U RMPCR ####[facility]IA [id number] [place] [address] UR UREALYTICUM PCR Not detected Normal [facility] Comment on above: Order Comment: Speci men Type: SWABOrdering Facility: [facility] Address: [address] [place] [address] Performed By: #### U RMPCR ####[facility]IESCLIA [id number] [place] [address] UR/MYCO SOURCE Genital Normal [facility] Comment on above: Order Comment: Speci men Type: SWABOrdering Facility: [facility] Address: [address] [place] [address] Performed By: #### U RMPCR ####[facility]IESCLIA [id number] [place] [address] CNCOon 04-14-2024 CNCO Letter Text Normal [facility] CNPNon 03-18-2024 CNPN Telephone ([place]) INDIGO MEIER Kaykay ([id number]) 1975 F [employer]* Date Time Provider Department 03/18/24 [facility] During your visit today, we recorded the following information about you: Ayanna Pradhan MA 03/18/2024 10:36 AM Signed Patient dropped off [facility] action form for air conditioner for asthma. Please review and after completion requested to fax to [place] and let patient know by phone. Placed on pcp desk LUIS FELIPE Can Lisa, MA 03/18/2024 4:28 PM Signed Form faxed to number on form and message left for pt. Fernanda Jameson MA March 18, 2024 4:22 PM Allergies As of Date: 03/18/2024 Noted Allergy Reaction HOUSE DUST 08/12/2020 3 - Cough MAPLE FLAVOR 08/12/2020 7 - Swelling SEASONAL ALLERGIES 04/09/2019 12 - Shortness of Breath Date Reviewed: 03/13/2024 Reviewed by: Mignon Orozco APRN.DIRECTOR TARGETED MARKETING - Fully Assessed Reason for Visit: Forms [913] Cmt: Form for ai conditioner Prescriptions as of 03/18/2024 - lisinopril (ZESTRIL) 20 mg tablet Take 1 tablet by mouth two times a day. - ibuprofen (MOTRIN) 800 mg tablet Take 1 tablet by mouth every 8 hours as needed (FOR PAIN. TAKE WITH FOOD). - ondansetron orally disintegrating (ZOFRAN ODT) 4 mg disintegrating tablet Take 1 tablet by mouth every 6 hours as needed for nausea/vomiting. - Omeprazole Magnesium (PRILOSEC OTC) 20 mg tablet Take 1 tablet by mouth once daily. - fluticasone (FLONASE) 50 mcg/actuation nasal spray Use 2 Sprays in each nostril once daily. Rinse mouth after use. - albuterol HFA (PROVENTIL HFA, VENTOLIN HFA) 90 mcg/actuation inhaler Inhale 2 Puffs as instructed every 6 hours as needed for wheezing/shortness of breath. - cyclobenzaprine (FLEXERIL) 10 mg tablet Take 1 tablet by mouth three times a day as needed for muscle spasm. - metoprolol tartrate, short acting, (LOPRESSOR) 50 mg tablet Take 1 tablet by mouth twice daily. - simvastatin (ZOCOR) 10 mg tablet Take 1 tablet by mouth once daily. - Lactobacillus acidophilus (FLORAJEN ACIDOPHILUS) 20 billion cell cap Take 1 capsule by mouth once daily. - levonorgestrel (MIRENA) 20 mcg/24 hours (5 yrs) 52 mg IUD 1 Each by INTRAUTERINE route as directed. - Cholecalciferol, Vitamin D3, 1,000 unit cap Take 1 capsule by mouth once daily. Problem List As Of Date 03/18/2024 Noted Resolved Anxiety state [F41.1] 07/25/2005 Other acne [L70.8] 07/25/2005 Pain in joint, lower leg [M25.569] 02/21/2012 Backache, unspecified [M54.9] 04/26/2012 Hyperlipidemia with target LDL less than 130 [E*05/03/2012 HTN (hypertension) [I10] 05/29/2012 04/04/2016 Marijuana use [F12.90] 12/30/2012 Other enthesopathy of ankle and tarsus [M77.50] 02/10/2015 Peroneal tendonitis of right lower extremity [M*02/24/2015 Vertigo [R42] 10/07/2015 Visual disturbances [H53.9] 10/07/2015 Vitreous floaters of both eyes [H43.393] 10/07/2015 Essential hypertension [I10] 04/04/2016 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] 05/15/2016 Sacroiliac joint pain [M53.3] 07/13/2016 Fibromyalgia [M79.7] 09/07/2017 Convulsion, 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 Neck pain [M54.2] 11/28/2019 Upper back pain [M54.9] 11/28/2019 Bilateral shoulder pain [M25.511, M25.512] 11/28/2019 Other chest pain [R07.89] 12/15/2021 Palpitations [R00.2] 02/08/2022 GERD (gastroesophageal reflux disease) [K21.9] 02/08/2022 Elevated liver enzymes [R74.8] 02/08/2022 Internal hemorrhoid [K64.8] 02/08/2022 Liver nodule [K76.89] 03/27/2022 Acute pain of right shoulder [M25.511] 04/05/2022 07/03/2022 Adenoma of liver [D13.4] 08/20/2022 Chronic midline low back pain without sciatica *10/17/2022 01/01/2023 Chronic neck pain [M54.2, G89.29] 10/17/2022 01/01/2023 Lateral epicondylitis, right elbow [M77.11] 10/17/2022 01/01/2023 Prediabetes [R73.03] 10/27/2022 Low back pain [M54.50] 03/20/2023 Encounter Status:Closed by FERNANDA JAMESON on 03/18/24 [facility] Sulma 03-13-2024 CNOV Office Visit (FAMPWS ) INDIGO MEIER ([id number]) 1975 F [employer]* Date Time Provider Department 03/13/24 11:00 AM [facility] During your visit today, we recorded the following information about you: Pulse Respiration Blood pressure Weight 71/minute 16/minute 140/84 76.2 kg Mignon Orozco APRN.DIRECTOR TARGETED MARKETING 03/13/2024 11:11 AM Signed This is a 48 year old female who presents today with: Patient presents with: Hypertension: Follow up HISTORY OF PRESENT ILLNESS: Indigo Meier is a 48 year old female. Patient presents with: Hypertension: Follow up HTN: Patient is compliant with meds No Monitors bp at home: Yes. Denies side effects: No. Chest pain: No. Dyspnea: No. Edema: No. Palpitations: No. Syncope: No. Headache: No. Dizziness: No. Needs a letter stating we are managing and adjusting medications. PAST MEDICAL HISTORY: PAST MEDICAL HISTORY Diagnosis Date Anxiety generalized anxiety AND panic disorder (diagnosed by PCP) Chronic back [...] COSMETIC SURGERY ALLERGIES House Dust, Maple Flavor, and Seasonal Allergies MEDICATIONS Current Outpatient Medications Medication Sig ibuprofen (MOTRIN) 800 mg tablet Take 1 tablet by mouth every 8 hours as needed (FOR PAIN. TAKE WITH FOOD). lisinopril (ZESTRIL) 30 mg tablet Take 1 tablet by mouth once daily. ondansetron orally disintegrating (ZOFRAN ODT) 4 mg disintegrating tablet Take 1 tablet by mouth every 6 hours as needed for nausea/vomiting. Omeprazole Magnesium (PRILOSEC OTC) 20 mg tablet Take 1 tablet by mouth once daily. fluticasone (FLONASE) 50 mcg/actuation nasal spray Use 2 Sprays in each nostril once daily. Rinse mouth after use. albuterol HFA (PROVENTIL HFA, VENTOLIN HFA) 90 [...] Drug use: Yes Types: Marijuana Comment: yolanda EXAM: BP 140/84 Pulse 71 Resp 16 Wt 76.2 kg (168 lb) LMP 05/17/2023 (Exact Date) SpO2 97% BMI 30.33 kg/m? PHYSICAL EXAM: Physical Exam Vitals reviewed. Constitutional: Appearance: Normal appearance. Cardiovascular: Rate and Rhythm: Normal rate and regular rhythm. Pulses: Normal pulses. Heart sounds: Normal heart sounds. Pulmonary: Effort: Pulmonary effort is normal. Breath sounds: Normal breath sounds. Neurological: Mental Status: She is alert. LABS: ASSESSMENT/PLAN: 1. Essential hypertension - ICD9: 401.9, ICD10: I10 - Uncontrolled - Recommend home blood pressure monitoring, to bring results to next visit - Encouraged sodium restriction, DASH or Mediterranean diet - Recommend regular aerobic exercise - LISINOPRIL 20 MG TABLET day - Continue metoprolol 2 x day Discussed treatment plan and patient voices understanding. Patient's questions answered appropriately. Medications and potential side effects were discussed and patient voices understanding. Return to the office as scheduled or as needed for worsening/no improvement. VIET Jiménez Jacqueline A, APRN.CNS 03/13/2024 11:11 AM Signed 1) (more content not included)... Normal [facility] Gualberto 03-06-2024 [facility] INDIGO MEIER ([id number]) 1975 F [place] [employer]* Date Time Provider Department 03/06/24 JESSICA DEAN [facility] During your visit today, we recorded the following information about you: Jessica Dean, JOE 03/06/2024 7:15 AM Signed Please contact patient let her know she tested positive for bacterial vaginosis. This is not an STD, it is an overgrowth of vaginal bacteria. Per chart review, it states metronidazole causes GI upset, I have sent in MetroGel vaginal treatment for her to her [facility]. gonorrhea, chlamydia, yeast, trichomonas testing were negative. Xochitl Duarte MA 03/06/2024 8:34 AM Signed Left message for pt to call back. LUIS FELIPE León Barbara, JACKSON 03/06/2024 1:19 PM Signed Pt returned the call and notified of results. Pt states she feels she only had GI upset with the metronidazole because she drank alcohol when she took it and it was a long time ago. States she has had it since then and had no issues at all. Requests removal from intolerance/allergy list. Allergies As of Date: 03/06/2024 Noted Allergy Reaction HOUSE DUST 08/12/2020 3 - Cough MAPLE FLAVOR 08/12/2020 7 - Swelling SEASONAL ALLERGIES 04/09/2019 12 - Shortness of Breath Date Reviewed: 03/05/2024 Reviewed by: Xochitl Duarte MA - Fully Assessed Reason for Visit: Results [95] Order(s):metroNIDAZOLE (METROGEL) 0.75 % (37.5mg/5 gram) Vaginal GelUse 1 Applicatorful vaginally daily at bedtime for 5 days.Disp: 70 gRfl: 0 Prescriptions as of 03/06/2024 - metroNIDAZOLE (METROGEL) 0.75 % (37.5mg/5 gram) Vaginal Gel Use 1 Applicatorful vaginally daily at bedtime for 5 days. - ibuprofen (MOTRIN) 800 mg tablet Take 1 tablet by mouth every 8 hours as needed (FOR PAIN. TAKE WITH FOOD). - lisinopril (ZESTRIL) 30 mg tablet Take 1 tablet by mouth once daily. - ondansetron orally disintegrating (ZOFRAN ODT) 4 mg disintegrating tablet Take 1 tablet by mouth every 6 hours as needed for nausea/vomiting. - Omeprazole Magnesium (PRILOSEC OTC) 20 mg tablet Take 1 tablet by mouth once daily. - fluticasone (FLONASE) 50 mcg/actuation nasal spray Use 2 Sprays in each nostril once daily. Rinse mouth after use. - albuterol HFA (PROVENTIL HFA, VENTOLIN HFA) 90 mcg/actuation inhaler Inhale 2 Puffs as instructed every 6 hours as needed for wheezing/shortness of breath. - cyclobenzaprine (FLEXERIL) 10 mg tablet Take 1 tablet by mouth three times a day as needed for muscle spasm. - metoprolol tartrate, short acting, (LOPRESSOR) 50 mg tablet Take 1 tablet by mouth twice daily. - simvastatin (ZOCOR) 10 mg tablet Take 1 tablet by mouth once daily. - Lactobacillus acidophilus (FLORAJEN ACIDOPHILUS) 20 billion cell cap Take 1 capsule by mouth once daily. - levonorgestrel (MIRENA) 20 mcg/24 hours (5 yrs) 52 mg IUD 1 Each by INTRAUTERINE route as directed. - Cholecalciferol, Vitamin D3, 1,000 unit cap Take 1 capsule by mouth once daily. Problem List As Of Date 03/06/2024 Noted Resolved Anxiety state [F41.1] 07/25/2005 Other acne [L70.8] 07/25/2005 Pain in joint, lower leg [M25.569] 02/21/2012 Backache, unspecified [M54.9] 04/26/2012 Hyperlipidemia with target LDL less than 130 [E*05/03/2012 HTN (hypertension) [I10] 05/29/2012 04/04/2016 Marijuana use [F12.90] 12/30/2012 Other enthesopathy of ankle and tarsus [M77.50] 02/10/2015 Peroneal tendonitis of right lower extremity [M*02/24/2015 Vertigo [R42] 10/07/2015 Visual disturbances [H53.9] 10/07/2015 Vitreous floaters of both eyes [H43.393] 10/07/2015 Essential hypertension [I10] 04/04/2016 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] 05/15/2016 Sacroiliac joint pain [M53.3] 07/13/2016 Fibromyalgia [M79.7] 09/07/2017 Convulsion, 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 Neck pain [M54.2] 11/28/2019 Upper back pain [M54.9] 11/28/2019 Bilateral shoulder pain [M25.511, M25.512] 11/28/2019 Other chest pain [R07.89] 12/15/2021 Palpitations [R00.2] 02/08/2022 GERD (gastroesophageal reflux disease) [K21.9] 02/08/2022 Elevated liver enzymes [R74.8] 02/08/2022 Internal hemorrhoid [K64.8] 02/08/2022 Liver nodule [K76.89] 03/27/2022 Acute pain of right shoulder [M25.511] 04/05/2022 07/03/2022 Adenoma of liver [D13.4] 08/20/2022 Chronic midline low back pain without sciatica *10/17/2022 01/01/2023 Chronic neck pain [M54.2, G89.29] 10/17/2022 01/01/2023 Lateral epicondylitis, right elbow [M77.11] 10/17/2022 01/01/2023 Prediabetes [R73.03] 10/27/2022 Low back pain [M54.50] 03/20/2023 Prescriptions ordered this encounter Disp Refills Start End METRONIDAZOLE 0.75 % (37.5 MG/5 GRAM* 70 g 0 03/06/2024 03/11/2024 Route: VAGINAL Sig: Use 1 Applicatorful vaginally daily at bedtime for 5 days. Encounter Status:Closed by MU URBAN on 03/06/24 Normal [facility] BACTERIAL VAGINOSIS NAATon 0 03-05-2024 Lactobacillus crispatus+gasseri+ jensenii + Gardnerella vaginalis + Atopobium vaginae rRNA DANA+probe Ql (Vag fld) Positive Abnormal Negative for bacterial vaginosis [facility] Comment on above: Order Comment: Speci men Type: SWABOrdering Facility: [facility] Address: [address] [place] [address] Performed By: #### Joey VAMP, [id number] ####[facility] LABCLIA [id number] [place] [address] [place] Bacteria Ur Culton Bacteria identified Cx Nom (U) ORGANISM ID: 1 10,000 -<50,000 CFU/ml Normal urogenital maria dolores Normal [facility] Comment on above: Performed By: #### 6 30-4 ####[facility] LABCLIA [id number] [place] [address] [place] C. trachomatis+N. gonorrhoea e DNA DANA+probe Ql (Unsp spec)on 03-05-2024 C. trachomatis rRNA DANA+probe Ql (Unsp spec) Negative Normal Negative for Chlamydia trachomatis by amplificaton [facility] Comment on above: Order Comment: Speci men Type: SWABOrdering Facility: [facility] Address: [address] [place] [address] Performed By: #### Joey VAMP, [id number] ####[facility] LABCLIA [id number] [place] [address] [place] N. gonorrhoeae rRNA DANA+probe Ql (Unsp spec) Negative Normal Negative for Neisseria gonorrhoeae by amplification [facility] Comment on above: Order Comment: Speci men Type: SWABOrdering Facility: [facility] Address: [address] [place] [address] Performed By: #### Joey VAMP, [id number] ####[facility] LABCLIA [id number] [place] [address] [place] TIFFANY/TRICHOMONAS NAATon 0 03-05-2024 C. glabrata RNA DANA+probe Ql (Vag fld) Negative Normal Negative for Tiffany glabrata [facility] Comment on above: Order Comment: Speci men Type: SWABOrdering Facility: [facility] Address: [address] [place] [address] Performed By: #### C VTV ####[facility] LABCLIA [id number] [place] Tiffany sp DNA DANA+probe Ql (Vag fld) Negative Normal Negative for Tiffany species [facility] Comment on above: Order Comment: Speci men Type: SWABOrdering Facility: [facility] Address: [address] [place] [address] Performed By: #### C VTV ####[facility] LABCLIA [id number] [address] [place] T. vaginalis DNA DANA+probe Ql (Unsp spec) Negative Normal Negative for Trichomonas vaginalis by amplification [facility] Comment on above: Order Comment: Speci men Type: SWABOrdering Facility: [facility] Address: [address] [place] [address] Performed By: #### C VTV ####[facility] LABIA [id number] [address] [place] CNOVon 03-05-2024 CNOV Office Visit (UCWSTR ) INDIGO MEIER ([id number]) 1975 Sandra Byrd* Date Time Provider Department 03/05/24 12:45 PM [facility] During your visit today, we recorded the following information about you: Temperature Pulse Respiration Blood pressure 97.2 degrees 89/minute 21/minute 148/98 Weight 76.5 kg Karina Chandler APRN.NEWSPAPER OR PERIODICAL EDITOR 03/05/2024 2:26 PM Signed This note was created using [employer]. Subjective Indigo Meier is a 48 year old female. Indigo Meier is a 48 year old female with a PMH of HTN, gonorrhea, yeast infection, presenting today with complaints of persistent vaginal itching and burning with urination for 2 weeks. She states that on 02/25 she tested positive for a yeast infection and gonorrhea to which she was given Diflucan and Rocephin. (After having sex with ex partner, and prior to testing on 02/25 she was notified of possible STI) She states that her associated symptoms have not resolved and are getting worse. She endorses itching, cramping, white vaginal discharge, nausea, urinary urgency. Denies fever, fatigue, chills, diaphoresis. Initially patient declined in engaging in recent sex after treatment, but later in discussions she endorses she did have sex with condom with Partner that tested positive for gonorrhea as well. States that she has tried ibuprofen for urinary pain to no relief. She has the Mirena IUD in place. Pertinent negatives: -rash -v/d -chest pain -shortness of breath -fever -fatigue -chills -diaphoresis Pertinent positives: +vaginal itching +cramping +vaginal discharge +nausea +urinary burning +urinary urgency The history is provided by the patient. Female Gu Problem This is a new problem. The current episode started 1 to 2 weeks ago. The problem has been gradually worsening. The pain is moderate. The symptoms are relieved by ibuprofen (mild relief). Nothing aggravates the symptoms. Associated symptoms include nausea, dysuria, urgency and vaginal discharge. Pertinent negatives include no chest pain, no anorexia, no chills, no fever, no abdominal pain, no constipation, no diarrhea, no vomiting, no frequency, no hematuria, no pelvic pain, no vaginal bleeding, no vaginal pain, no headaches, no sore throat, no back pain, no flank pain, no joint pain, no cough, no shortness of breath, no rash and no dyspareunia. There has been no history of trauma. Urine output has been normal. She is currently Sexually active. Contraceptives used include an IUD. She is not . She has had prior pregnancies. Her past medical history is significant for STD. Her past medical history does not include PID, ectopic , ovarian cysts, ovarian torsion, endometriosis, kidney stones, UTI, gallstones, terminated , gynecological surgery, miscarriage or appendectomy. There were sick contacts at home. Recently, medical care has been given at this facility. Services received include tests performed. PAST MEDICAL HISTORY Diagnosis Date Anxiety generalized anxiety AND panic disorder (diagnosed by PCP) Chronic back [...] Maple Flavor, Metronidazole, and Seasonal Allergies MEDICATIONS ibuprofen (MOTRIN) 800 mg tablet Take 1 tablet by mouth every 8 hours as needed (FOR PAIN. TAKE WITH FOOD). lisinopril (ZESTRIL) 30 mg tablet Take 1 tablet by mouth once daily. ondansetron orally disintegrating (ZOFRAN ODT) 4 mg disintegrating tablet Take 1 tablet by mouth every 6 hours as needed for nausea/vomiting. Omeprazole Magnesium (PRILOSEC OTC) 20 mg tablet Take 1 tablet by mouth once daily. fluticasone (FLONASE) 50 mcg/actuation nasal spray Use 2 Sprays in each nostril once daily. Rinse mouth after use. albuterol HFA (PROVENTIL HFA, VENTOLIN HFA) 90 [...] Take 1 capsule by mouth once daily. levonor (more content not included)... Normal [facility] UA DIP, URINE (POC)on 2023 BILIRUBIN UA (POCT) Negative Negative [facility] CLARITY UA (POCT) Clear [facility] COLOR UA (POCT) Yellow [facility] GLUCOSE UA (POCT) Negative Negative mg/dL [facility] Hemoglobin Ql (U) Negative Negative [facility] KETONE UA (POCT) Negative Negative mg/dL [facility] LEUKOCYTES UA (POCT) Negative Negative [facility] NITRITE UA (POCT) Negative Negative [facility] PH UA (POCT) 5.5 4.5 - 8.0 [facility] Protein Ql (U) Negative Negative mg/dL [facility] SPECIFIC GRAVITY UA (POCT) 1.015 1.005 - 1.030 [facility] UROBILINOGEN UA (POCT) 0.2 Normal E.U./dL [facility] Location:[address], [place], [place], [address] [place] [place] [address] POINT OF CARE [facility] CNOVon 02-27-2024 CNOV Office Visit (UCWSTR ) INDIGO MEIER ([id number]) 1975 F [address] [employer]* Date Time Provider Department 02/27/24 2:15 PM [facility] UCWSTR During your visit today, we recorded the following information about you: Gabi Wells LPN 02/27/2024 2:32 PM Signed Rocephin given per provider order.Gabi Wells LPN Allergies As of Date: 02/27/2024 Noted Allergy Reaction HOUSE DUST 08/12/2020 3 - Cough MAPLE FLAVOR 08/12/2020 7 - Swelling METRONIDAZOLE 09/14/2022 8 - GI Upset SEASONAL ALLERGIES 04/09/2019 12 - Shortness of Breath Date Reviewed: 02/26/2024 Reviewed by: Waylon Eckert MA - Fully Assessed Reason for Visit: injection for STD [Other] Cmt: Injection for STD Primary Visit Diagnosis:Gonorrhea [A54.9] Prescriptions as of 02/27/2024 - fluconazole (DIFLUCAN) 150 mg tablet Take 1 tablet by mouth one time only for 1 dose. Repeat in 3 days as needed. - ibuprofen (MOTRIN) 800 mg tablet Take 1 tablet by mouth every 8 hours as needed (FOR PAIN. TAKE WITH FOOD). - lisinopril (ZESTRIL) 30 mg tablet Take 1 tablet by mouth once daily. - ondansetron orally disintegrating (ZOFRAN ODT) 4 mg disintegrating tablet Take 1 tablet by mouth every 6 hours as needed for nausea/vomiting. - Omeprazole Magnesium (PRILOSEC OTC) 20 mg tablet Take 1 tablet by mouth once daily. - fluticasone (FLONASE) 50 mcg/actuation nasal spray Use 2 Sprays in each nostril once daily. Rinse mouth after use. - albuterol HFA (PROVENTIL HFA, VENTOLIN HFA) 90 mcg/actuation inhaler Inhale 2 Puffs as instructed every 6 hours as needed for wheezing/shortness of breath. - cyclobenzaprine (FLEXERIL) 10 mg tablet Take 1 tablet by mouth three times a day as needed for muscle spasm. - metoprolol tartrate, short acting, (LOPRESSOR) 50 mg tablet Take 1 tablet by mouth twice daily. - simvastatin (ZOCOR) 10 mg tablet Take 1 tablet by mouth once daily. - Lactobacillus acidophilus (FLORAJEN ACIDOPHILUS) 20 billion cell cap Take 1 capsule by mouth once daily. - levonorgestrel (MIRENA) 20 mcg/24 hours (5 yrs) 52 mg IUD 1 Each by INTRAUTERINE route as directed. - Cholecalciferol, Vitamin D3, 1,000 unit cap Take 1 capsule by mouth once daily. Problem List As Of Date 02/27/2024 Noted Resolved Anxiety state [F41.1] 07/25/2005 Other acne [L70.8] 07/25/2005 Pain in joint, lower leg [M25.569] 02/21/2012 Backache, unspecified [M54.9] 04/26/2012 Hyperlipidemia with target LDL less than 130 [E*05/03/2012 HTN (hypertension) [I10] 05/29/2012 04/04/2016 Marijuana use [F12.90] 12/30/2012 Other enthesopathy of ankle and tarsus [M77.50] 02/10/2015 Peroneal tendonitis of right lower extremity [M*02/24/2015 Vertigo [R42] 10/07/2015 Visual disturbances [H53.9] 10/07/2015 Vitreous floaters of both eyes [H43.393] 10/07/2015 Essential hypertension [I10] 04/04/2016 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] 05/15/2016 Sacroiliac joint pain [M53.3] 07/13/2016 Fibromyalgia [M79.7] 09/07/2017 Convulsion, 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 Neck pain [M54.2] 11/28/2019 Upper back pain [M54.9] 11/28/2019 Bilateral shoulder pain [M25.511, M25.512] 11/28/2019 Other chest pain [R07.89] 12/15/2021 Palpitations [R00.2] 02/08/2022 GERD (gastroesophageal reflux disease) [K21.9] 02/08/2022 Elevated liver enzymes [R74.8] 02/08/2022 Internal hemorrhoid [K64.8] 02/08/2022 Liver nodule [K76.89] 03/27/2022 Acute pain of right shoulder [M25.511] 04/05/2022 07/03/2022 Adenoma of liver [D13.4] 08/20/2022 Chronic midline low back pain without sciatica *10/17/2022 01/01/2023 Chronic neck pain [M54.2, G89.29] 10/17/2022 01/01/2023 Lateral epicondylitis, right elbow [M77.11] 10/17/2022 01/01/2023 Prediabetes [R73.03] 10/27/2022 Low back pain [M54.50] 03/20/2023 Visit Notes: >> Gabi Wells LPN SunFebruary 27, 2024 2:29 PM Status: Signed Rocephin given per provider order.Gabi Wells LPN Encounter Status:Closed by GABI WELLS on 02/27/24 Normal [facility] Gualberto 02-27-2024 CNPN Telephone (UCWSTR) INDIGO MEIER Kaykay ([id number]) 1975 F [place]* Date Time Provider Department 02/27/24 YEISON IGNACIO [facility] During your visit today, we recorded the following information about you: Yeison Ignacio, CONSUELO 02/27/2024 7:10 AM Signed Please call and let patient know she did test positive for gonorrhea as well as yeast. Medication for the yeast was sent in however she will need to come in for an injection of Rocephin to treat the gonorrhea. All partners need notified. Refrain from sexual intercourse for 2 weeks after treatment. Jasmin Uribe MA 02/27/2024 7:17 AM Signed Left message for patient to return call. LUIS FELIPE Carrero Stephanie, RN 02/27/2024 10:36 AM Signed Patient notified of results and provider's instructions. Patient verbalizes understanding. Alessia Miguel RN Allergies As of Date: 02/27/2024 Noted Allergy Reaction HOUSE DUST 08/12/2020 3 - Cough MAPLE FLAVOR 08/12/2020 7 - Swelling METRONIDAZOLE 09/14/2022 8 - GI Upset SEASONAL ALLERGIES 04/09/2019 12 - Shortness of Breath Date Reviewed: 02/26/2024 Reviewed by: Waylon Eckert MA - Fully Assessed Reason for Visit: Results [95] Primary Visit Diagnosis:Gonorrhea [A54.9] Order(s):cefTRIAXone 500 mg intramuscular injection (ROCEPHIN)Disp: Rfl: fluconazole (DIFLUCAN) 150 mg tabletTake 1 tablet by mouth one time only for 1 dose. Repeat in 3 days as needed.Disp: 2 tabletRfl: 0 Prescriptions as of 02/27/2024 - fluconazole (DIFLUCAN) 150 mg tablet Take 1 tablet by mouth one time only for 1 dose. Repeat in 3 days as needed. - ibuprofen (MOTRIN) 800 mg tablet Take 1 tablet by mouth every 8 hours as needed (FOR PAIN. TAKE WITH FOOD). - lisinopril (ZESTRIL) 30 mg tablet Take 1 tablet by mouth once daily. - ondansetron orally disintegrating (ZOFRAN ODT) 4 mg disintegrating tablet Take 1 tablet by mouth every 6 hours as needed for nausea/vomiting. - Omeprazole Magnesium (PRILOSEC OTC) 20 mg tablet Take 1 tablet by mouth once daily. - fluticasone (FLONASE) 50 mcg/actuation nasal spray Use 2 Sprays in each nostril once daily. Rinse mouth after use. - albuterol HFA (PROVENTIL HFA, VENTOLIN HFA) 90 mcg/actuation inhaler Inhale 2 Puffs as instructed every 6 hours as needed for wheezing/shortness of breath. - cyclobenzaprine (FLEXERIL) 10 mg tablet Take 1 tablet by mouth three times a day as needed for muscle spasm. - metoprolol tartrate, short acting, (LOPRESSOR) 50 mg tablet Take 1 tablet by mouth twice daily. - simvastatin (ZOCOR) 10 mg tablet Take 1 tablet by mouth once daily. - Lactobacillus acidophilus (FLORAJEN ACIDOPHILUS) 20 billion cell cap Take 1 capsule by mouth once daily. - levonorgestrel (MIRENA) 20 mcg/24 hours (5 yrs) 52 mg IUD 1 Each by INTRAUTERINE route as directed. - Cholecalciferol, Vitamin D3, 1,000 unit cap Take 1 capsule by mouth once daily. Facility-Administered Medications as of 02/27/2024 - cefTRIAXone 500 mg intramuscular injection (ROCEPHIN) Problem List As Of Date 02/27/2024 Noted Resolved Anxiety state [F41.1] 07/25/2005 Other acne [L70.8] 07/25/2005 Pain in joint, lower leg [M25.569] 02/21/2012 Backache, unspecified [M54.9] 04/26/2012 Hyperlipidemia with target LDL less than 130 [E*05/03/2012 HTN (hypertension) [I10] 05/29/2012 04/04/2016 Marijuana use [F12.90] 12/30/2012 Other enthesopathy of ankle and tarsus [M77.50] 02/10/2015 Peroneal tendonitis of right lower extremity [M*02/24/2015 Vertigo [R42] 10/07/2015 Visual disturbances [H53.9] 10/07/2015 Vitreous floaters of both eyes [H43.393] 10/07/2015 Essential hypertension [I10] 04/04/2016 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] 05/15/2016 Sacroiliac joint pain [M53.3] 07/13/2016 Fibromyalgia [M79.7] 09/07/2017 Convulsion, 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 Neck pain [M54.2] 11/28/2019 Upper back pain [M54.9] 11/28/2019 Bilateral shoulder pain [M25.511, M25.512] 11/28/2019 Other chest pain [R07.89] 12/15/2021 Palpitations [R00.2] 02/08/2022 GERD (gastroesophageal reflux disease) [K21.9] 02/08/2022 Elevated liver enzymes [R74.8] 02/08/2022 Internal hemorrhoid [K64.8] 02/08/2022 Liver nodule [K76.89] 03/27/2022 Acute pain of right shoulder [M25.511] 04/05/2022 07/03/2022 Adenoma of liver [D13.4] 08/20/2022 Chronic midline low back pain without sciatica *10/17/2022 01/01/2023 Chronic neck pain [M54.2, G89.29] 10/17/2022 01/01/2023 Lateral epicondylitis, right elbow [M77.11] 10/17/2022 01/01/2023 Prediabetes [R73.03] 10/27/2022 Low back pain [M54.50] 03/20/2023 Prescriptions ordered this encounter Disp Refills Start End CEFTRIAXONE 500 MG SOLUTION FOR INJE* 02/27/2024 02/27/2024 Route: INTRAMUSCULA FLUCONAZOLE 150 MG TABLET 2 ta* 0 02/27/2024 02/27/2024 Route: ORAL Sig: Take 1 tablet by mouth one time only for 1 dose. Repeat in 3 days as needed. Encounter (more content not included)... Normal [facility] BACTERIAL VAGINOSIS NAATon 0 02-26-2024 Interpretation and review of laboratory results Normal [facility] Lactobacillus crispatus+gasseri+ jensenii + Gardnerella vaginalis + Atopobium vaginae rRNA DANA+probe Ql (Vag fld) Negative Negative for bacterial vaginosis [facility] Lactobacillus crispatus+gasseri+ jensenii + Gardnerella vaginalis + Atopobium vaginae rRNA DANA+probe Ql (Vag fld) Negative Normal Negative for bacterial vaginosis [facility] Comment on above: Order Comment: Speci men Type: SWABOrdering Facility: [facility] Address: [address] [place] [address] Performed By: #### 3 6902-5, BVAMP ####[facility] LABCLIA [id number] [place] [address] [place] Bacteria Ur Culton Bacteria identified Cx Nom (U) CULTURE, URINE: No growth (<1,000 CFU/ml) Normal [facility] Comment on above: Performed By: #### 6 30-4 ####[facility] LABCLIA [id number] [place] [address] [place] C. trachomatis+N. gonorrhoea e DNA DANA+probe Ql (Unsp spec)Ordered By: Jak Toscano on 02-26-2024 C. trachomatis rRNA DANA+probe Ql (Unsp spec) Negative Negative for Chlamydia trachomatis by amplificaton [facility] Interpretation and review of laboratory results Abnormal [facility] N. gonorrhoeae rRNA DANA+probe Ql (Unsp spec) Positive Abnormal Negative for Neisseria gonorrhoeae by amplification [facility] In low prevalence populations, the likelihood of a false positive may be higher than a true positive. Retesting by another method may be appropriate for patients who lack risk factors or clinical signs and symptoms consistent with infection. [facility] C. trachomatis+N. gonorrhoea e DNA DANA+probe Ql (Unsp spec)on 02-26-2024 C. trachomatis rRNA DANA+probe Ql (Unsp spec) Negative Normal Negative for Chlamydia trachomatis by amplificaton [facility] Comment on above: Order Comment: Speci men Type: SWABOrdering Facility: [facility] Address: [address] [place] [address] Performed By: #### 3 6902-5, BVAMP ####[facility] LABCLIA [id number] [place] [address] [place] N. gonorrhoeae rRNA DANA+probe Ql (Unsp spec) Positive Abnormal Negative for Neisseria gonorrhoeae by amplification [facility] Comment on above: Order Comment: Speci men Type: SWABOrdering Facility: [facility] Address: [address] [place] [address] Performed By: #### 3 6902-5, BVAMP ####[facility] LABCLIA [id number] [place] [address] [place] TIFFANY/TRICHOMONAS NAATon 0 02-26-2024 C. glabrata RNA DANA+probe Ql (Vag fld) Negative Negative for Tiffany glabrata [facility] Tiffany sp DNA DANA+probe Ql (Vag fld) Positive Abnormal Negative for Tiffany species [facility] Interpretation and review of laboratory results Abnormal [facility] T. vaginalis DNA DANA+probe Ql (Unsp spec) Negative Negative for Trichomonas vaginalis by amplification [facility] C. glabrata RNA DANA+probe Ql (Vag fld) Negative Normal Negative for Tiffany glabrata [facility] Comment on above: Order Comment: Speci men Type: SWABOrdering Facility: [facility] Address: [address] [place] [address] Performed By: #### C VTV ####[facility] LABCLIA [id number] [place] [address] [place] Tiffany sp DNA DANA+probe Ql (Vag fld) Positive Abnormal Negative for Tiffany species [facility] Comment on above: Order Comment: Speci men Type: SWABOrdering Facility: [facility] Address: [address] [place] [address] Performed By: #### C VTV ####[facility] LABCLIA [id number] [address] [place] T. vaginalis DNA DANA+probe Ql (Unsp spec) Negative Normal Negative for Trichomonas vaginalis by amplification [facility] Comment on above: Order Comment: Speci men Type: SWABOrdering Facility: [facility] Address: [address] [place] [address] Performed By: #### C VTV ####[facility] LABCLIA [id number] [address] [place] CNOVon 02-26-2024 CNOV Office Visit (UCWSTR ) INDIGO MEIER ([id number]) 1975 [place]* Date Time Provider Department 02/26/24 10:15 AM DWAIN HAWKINS [facility] During your visit today, we recorded the following information about you: Temperature Pulse Respiration Blood pressure 97 degrees 66/minute 18/minute 195/119 Weight 78.3 kg Dwain Hawkins APRN.NEWSPAPER OR PERIODICAL EDITOR 02/26/2024 12:16 PM Signed CC: Patient presents with: STD: Itching, discharge x today HPI Indigo Meier is a 48 year old female who presents with complaint of possible UTI. These symptoms have been present for 1 days. Associated symptoms: burning, abnormal vaginal discharge, and vaginal itching Denies: pressure, fever, chills, sweats, abdominal pain, and flank pain Treatments: nothing The ROS was otherwise negative. PMH, Medications, labs, allergies, and recent past visits with PCP were reviewed and updated as able. PHYSICAL EXAM: BP 195/119 Pulse 66 Temp 36.1 ?C (97 ?F) Resp 18 Wt 78.3 kg (172 lb 9.9 oz) LMP 05/17/2023 (Exact Date) SpO2 98% BMI 31.17 kg/m? General: Well appearing and alert CV: Regular rate and rhythm without obvious murmur Lungs: clear to auscultation bilaterally Back: straight and symmetric Abdomen: soft, nontender, nondistended PAST MEDICAL HISTORY Diagnosis Date Anxiety generalized anxiety AND panic disorder (diagnosed by PCP) Chronic back [...] Maple Flavor, Metronidazole, and Seasonal Allergies MEDICATIONS ibuprofen (MOTRIN) 800 mg tablet Take 1 tablet by mouth every 8 hours as needed (FOR PAIN. TAKE WITH FOOD). lisinopril (ZESTRIL) 30 mg tablet Take 1 tablet by mouth once daily. ondansetron orally disintegrating (ZOFRAN ODT) 4 mg disintegrating tablet Take 1 tablet by mouth every 6 hours as needed for nausea/vomiting. Omeprazole Magnesium (PRILOSEC OTC) 20 mg tablet Take 1 tablet by mouth once daily. fluticasone (FLONASE) 50 mcg/actuation nasal spray Use 2 Sprays in each nostril once daily. Rinse mouth after use. albuterol HFA (PROVENTIL HFA, VENTOLIN HFA) 90 [...] Drug use: Yes Types: Marijuana Comment: yolanda ASSESSMENT/PLAN: 1. Burning with urination - ICD9: 788.1, ICD10: R30.0 (primary diagnosis) - UA DIP, URINE (POC) 2. Vaginal itching - ICD9: 698.1, ICD10: N89.8 - BACTERIAL VAGINOSIS NAAT - GONORRHEA/CHLAMYDIA NAAT - TIFFANY/TRICHOMONAS NAAT Urine culture sent No treatment at this time. Self swabed. Potential red flag symptoms discussed with the patient. Reviewed appropriate action plan to take if red flag symptoms occur. Patient agreeable to treatment plan. Dwain Hawkins APRN.NEWSPAPER OR PERIODICAL EDITOR Allergies As of Date: 02/26/2024 Noted Allergy Reaction HOUSE DUST 08/12/2020 3 - Cough MAPLE FLAVOR 08/12/2020 7 - Swelling METRONIDAZOLE 09/14/2022 8 - GI Upset SEASONAL ALLERGIES 04/09/2019 12 - Shortness of Breath Date Reviewed: 02/26/2024 Reviewed by: Waylon Eckert MA - Fully Assessed Reason for Visit: STD [102] Cmt: Itching, discharge x today Primary Visit Diagnosis:Burning with uri (more content not included)... Normal [facility] UA DIP, URINE (POC)on 2023 BILIRUBIN UA (POCT) Negative Negative [facility] CLARITY UA (POCT) Clear [facility] COLOR UA (POCT) Yellow [facility] GLUCOSE UA (POCT) Negative Negative mg/dL [facility] Hemoglobin Ql (U) Small Abnormal Negative [facility] Interpretation and review of laboratory results Abnormal [facility] KETONE UA (POCT) Negative Negative mg/dL [facility] LEUKOCYTES UA (POCT) Negative Negative [facility] NITRITE UA (POCT) Negative Negative [facility] PH UA (POCT) 7.0 4.5 - 8.0 [facility] Protein Ql (U) Negative Negative mg/dL [facility] SPECIFIC GRAVITY UA (POCT) 1.020 1.005 - 1.030 [facility] UROBILINOGEN UA (POCT) 0.2 Normal E.U./dL [facility] Location:[address], [place], [place], [id number] [place] [address] POINT OF CARE [facility] CNOVon 01-30-2024 CNOV Office Visit (UCWSTR ) INDIGO MEIER ([id number]) 1975 F [place]* Date Time Provider Department 01/30/24 1:45 PM JOHN ZARAGOZA [facility] During your visit today, we recorded the following information about you: Temperature Pulse Respiration Blood pressure 98.1 degrees 67/minute 20/minute 160/100 Weight 77.6 kg John Zaragoza MD 01/30/2024 3:32 PM Signed Patient presents with: Trauma: Right knee and left calf pain x 1 day HPI: Right knee pain: Duration: walking yesterday and felt a pop in the right knee Location: media right knee Character: sharp and throbbing. Tightness in left calf, tingling in left thigh. Radiation: No. Aggravating: bending, standing, and walking; ice, wrap Relieving: heat Pain relievers: 800mg Motrin Associated: swelling, clicking, walking favoring left calf the last 1 1/2 weeks, chronic back pain Pertinent negatives: chest pain, shortness of breath, palpitations MEDICATIONS: ibuprofen (MOTRIN) 800 mg tablet Take 1 tablet by mouth every 8 hours as needed (FOR PAIN. TAKE WITH FOOD). lisinopril (ZESTRIL) 30 mg tablet Take 1 tablet by mouth once daily. ondansetron orally disintegrating (ZOFRAN ODT) 4 mg disintegrating tablet Take 1 tablet by mouth every 6 hours as needed for nausea/vomiting. Omeprazole Magnesium (PRILOSEC OTC) 20 mg tablet Take 1 tablet by mouth once daily. fluticasone (FLONASE) 50 mcg/actuation nasal spray Use 2 Sprays in each nostril once daily. Rinse mouth after use. albuterol HFA (PROVENTIL HFA, VENTOLIN HFA) 90 [...] Seasonal Allergies Shortness of Breath VITALS: BP 160/100 Pulse 67 Temp 36.7 ?C (98.1 ?F) Resp 20 Wt 77.6 kg (171 lb 1.2 oz) LMP 05/17/2023 (Exact Date) SpO2 100% BMI 30.89 kg/m? PHYSICAL EXAM: GEN: pleasant, no acute distress, alert HEENT: PERRL, EOMI, MMM NECK: supple, no lymphadenopathy, no thyromegaly HEART: regular rate, regular rhythm, no murmurs LUNGS: clear to auscultation, no wheezes or crackles, no increased WOB BACK: Normal curvature of spine. L>R lumbar tenderness. Straight leg test negative. EXT: no clubbing, no cyanosis, no edema KNEE: right compared to left. No effusion or deformity. Slight decrease in extension and flexion secondary to pain. Patellar crepitus. Medial joint line tenderness. Stable to varus strain, painflu valgus strain. Negative anterior drawer test. Negative posterior drawer test. Limping gait. Left lower leg: no heel, achilles, or calf tenderness. No pain with dorsi/plantar flexion against resistance. ASSESSMENT/PLAN: 1. Acute pain of right knee - ICD9: 719.46, ICD10: M25.561 - XR KNEE GENERAL 4V AP BOTH/PA BOTH/LAT/MERC RIGHT IMPRESSION: Small joint effusion in the right knee. Patient had to leave before xray was read. She was notified of result by telephone. Plan to follow up with orthopedics for medial knee/meniscus injury. Continue ibuprofen and rest. John Zaragoza MD Allergies As of Date: 01/30/2024 Noted Allergy Reaction HOUSE DUST 08/12/2020 3 - Cough MAPLE FLAVOR 08/12/2020 7 - Swelling METRONIDAZOLE 09/14/2022 8 - GI Upset SEASONAL ALLERGIES 04/09/2019 12 - Shortness of Breath Date Reviewed: 01/30/2024 Reviewed by: Xochitl Duarte MA - Fully Assessed Reason for Visit: Trauma [112] Cmt: Right knee and left calf pain x 1 day Primary Visit Diagnosis:Acute pain of right knee [M25.561] Order(s):XR KNEE GENERAL 4V AP BOTH/PA BOTH/LAT/MERC RIGHT [[id number]] Order #: [id number] FUTURE Prescriptions as of 01/30/2024 - ibuprofen (MOTRIN) 800 mg tablet Take 1 tablet by mouth every 8 hours as needed (FOR PAIN. TAKE WITH FOOD). - lisinopril (ZESTRIL) 30 mg tablet Take 1 tablet by mouth once daily. - ondansetron orally disintegrating (ZOFRAN ODT) 4 mg disintegrating tablet Take 1 tablet by mouth every 6 hours as needed for nausea/vomiting. - Omeprazole Magnesium (PRILOSEC OTC) 20 mg tablet Take 1 tablet by mouth once daily. - fluticasone (FLONASE) 50 mcg/actuation nasal spray Use 2 Sprays in each nostril once daily. Rinse mouth after use. - albuterol HFA (PROVENTIL HFA, V (more content not included)... Normal [facility] [place] 01-30-2024 [facility] Telephone (FAMPWS) INDIGO MEIER ([id number]) 1975 [place]* Date Time Provider Department 01/30/24 [facility] During your visit today, we recorded the following information about you: Lo Sheppard LPN 01/30/2024 8:22 AM Signed Patient calling, states that she is having right knee pain. Started yesterday but got worse during the night. Offered appointment today, patient states she cannot miss anymore work. Asking if a consult for ortho could be placed. Patient does have an appt on 02/04. Please advise. Mer Valdovinos LPN 01/30/2024 8:36 AM Signed Patient calling back since Maikol Cook is not in the office today, she is going to go to express care to be seen. Patient said her right knee is very painful, difficult to walk down her stairs. Allergies As of Date: 01/30/2024 Noted Allergy Reaction HOUSE DUST 08/12/2020 3 - Cough MAPLE FLAVOR 08/12/2020 7 - Swelling METRONIDAZOLE 09/14/2022 8 - GI Upset SEASONAL ALLERGIES 04/09/2019 12 - Shortness of Breath Date Reviewed: 01/30/2024 Reviewed by: Xochitl Duarte MA - Fully Assessed Reason for Visit: Consult [502] Prescriptions as of 02/27/2024 - ibuprofen (MOTRIN) 800 mg tablet Take 1 tablet by mouth every 8 hours as needed (FOR PAIN. TAKE WITH FOOD). - lisinopril (ZESTRIL) 30 mg tablet Take 1 tablet by mouth once daily. - ondansetron orally disintegrating (ZOFRAN ODT) 4 mg disintegrating tablet Take 1 tablet by mouth every 6 hours as needed for nausea/vomiting. - Omeprazole Magnesium (PRILOSEC OTC) 20 mg tablet Take 1 tablet by mouth once daily. - fluticasone (FLONASE) 50 mcg/actuation nasal spray Use 2 Sprays in each nostril once daily. Rinse mouth after use. - albuterol HFA (PROVENTIL HFA, VENTOLIN HFA) 90 mcg/actuation inhaler Inhale 2 Puffs as instructed every 6 hours as needed for wheezing/shortness of breath. - cyclobenzaprine (FLEXERIL) 10 mg tablet Take 1 tablet by mouth three times a day as needed for muscle spasm. - metoprolol tartrate, short acting, (LOPRESSOR) 50 mg tablet Take 1 tablet by mouth twice daily. - simvastatin (ZOCOR) 10 mg tablet Take 1 tablet by mouth once daily. - Lactobacillus acidophilus (FLORAJEN ACIDOPHILUS) 20 billion cell cap Take 1 capsule by mouth once daily. - levonorgestrel (MIRENA) 20 mcg/24 hours (5 yrs) 52 mg IUD 1 Each by INTRAUTERINE route as directed. - Cholecalciferol, Vitamin D3, 1,000 unit cap Take 1 capsule by mouth once daily. Problem List As Of Date 01/30/2024 Noted Resolved Anxiety state [F41.1] 07/25/2005 Other acne [L70.8] 07/25/2005 Pain in joint, lower leg [M25.569] 02/21/2012 Backache, unspecified [M54.9] 04/26/2012 Hyperlipidemia with target LDL less than 130 [E*05/03/2012 HTN (hypertension) [I10] 05/29/2012 04/04/2016 Marijuana use [F12.90] 12/30/2012 Other enthesopathy of ankle and tarsus [M77.50] 02/10/2015 Peroneal tendonitis of right lower extremity [M*02/24/2015 Vertigo [R42] 10/07/2015 Visual disturbances [H53.9] 10/07/2015 Vitreous floaters of both eyes [H43.393] 10/07/2015 Essential hypertension [I10] 04/04/2016 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] 05/15/2016 Sacroiliac joint pain [M53.3] 07/13/2016 Fibromyalgia [M79.7] 09/07/2017 Convulsion, 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 Neck pain [M54.2] 11/28/2019 Upper back pain [M54.9] 11/28/2019 Bilateral shoulder pain [M25.511, M25.512] 11/28/2019 Other chest pain [R07.89] 12/15/2021 Palpitations [R00.2] 02/08/2022 GERD (gastroesophageal reflux disease) [K21.9] 02/08/2022 Elevated liver enzymes [R74.8] 02/08/2022 Internal hemorrhoid [K64.8] 02/08/2022 Liver nodule [K76.89] 03/27/2022 Acute pain of right shoulder [M25.511] 04/05/2022 07/03/2022 Adenoma of liver [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.4] 08/20/2022 Chronic midline low back pain without sciatica *10/17/2022 01/01/2023 Chronic neck pain [M54.2, G89.29] 10/17/2022 01/01/2023 Lateral epicondylitis, right elbow [M77.11] 10/17/2022 01/01/2023 Prediabetes [R73.03] 10/27/2022 Low back pain [M54.50] 03/20/2023 Encounter Status:Closed by YEISON IGNACIO on 02/27/24 Normal [facility] XR KNEE 4V AP/PA BOTH+LAT/ME R RTon 01-30-2024 XR KNEE 4V AP/PA BOTH+LAT/MARRY RT * * *Final Report* * * DATE OF EXAM: Jan 30 2024 2:27PM WOX 5203 - XR KNEE 4V AP/PA BOTH+LAT/MARRY RT / PROCEDURE REASON: Acute pain of right knee * * * * Physician Interpretation * * * * EXAM TITLE: XR KNEE 4V AP/PA BOTH+LAT/MARRY RT EXAM DATE/TIME: 01/30/2024 2:27 PM COMPARISON: None. CLINICAL INDICATION/HISTORY: Acute right knee pain. TECHNIQUE: AP/PA, lateral and sunrise views of the right knee are presented. FINDINGS: No fractures or subluxations are noted. No obvious osteophyte formation. The joint spaces are well preserved. There is small joint effusion. The mineralization of the bones is normal. There is no significant soft tissue swelling. IMPRESSION: Small joint effusion in the right knee. Linen Room Supervisor: EVELINE Transcribe Date/Time: Jan 30 2024 2:36P Dictated by : JESSIE BARTHOLOMEW MD This examination was interpreted and the report reviewed and electronically signed by: JESSIE BARTHOLOMEW MD on Jan 30 2024 2:37PM EST [id number] Normal [facility] XR Knee - right 4 Viewson IMPRESSION: Small yadira int effusion in the right knee. Linen Room Supervisor: EVELINE Transcribe Date/Time: Jan 30 2024 2:36P Dictated by : JESSIE BARTHOLOMEW MD This examination was interpreted and the report reviewed and electronically signed by: JESSIE BARTHOLOMEW MD on Jan 30 2024 2:37PM EST DIVISION OF RADIOLOGY * * *Final Report* * * DATE OF EXAM: Jan 30 2024 2:27PM WOX 5203 - XR KNEE 4V AP/PA BOTH+LAT/MARRY RT / PROCEDURE REASON: Acute pain of right knee * * * * Physician Interpretation * * * * EXAM TITLE: XR KNEE 4V AP/PA BOTH+LAT/MARRY RT EXAM DATE/TIME: 01/30/2024 2:27 PM COMPARISON: None. CLINICAL INDICATION/HISTORY: Acute right knee pain. TECHNIQUE: AP/PA, lateral and sunrise views of the right knee are presented. FINDINGS: No fractures or subluxations are noted. No obvious osteophyte formation. The joint spaces are well preserved. There is small joint effusion. The mineralization of the bones is normal. There is no significant soft tissue swelling. DIVISION OF RADIOLOGY Provider, [facility] - 01/30/2024 * * *Final Report* * * DATE OF EXAM: Jan 30 2024 2:27PM WOX 5203 - XR KNEE 4V AP/PA BOTH+LAT/MARRY RT / PROCEDURE REASON: Acute pain of right knee * * * * Physician Interpretation * * * * EXAM TITLE: XR KNEE 4V AP/PA BOTH+LAT/MARRY RT EXAM DATE/TIME: 01/30/2024 2:27 PM COMPARISON: None. CLINICAL INDICATION/HISTORY: Acute right knee pain. TECHNIQUE: AP/PA, lateral and sunrise views of the right knee are presented. FINDINGS: No fractures or subluxations are noted. No obvious osteophyte formation. The joint spaces are well preserved. There is small joint effusion. The mineralization of the bones is normal. There is no significant soft tissue swelling. IMPRESSION IMPRESSION: Small joint effusion in the right knee. Linen Room Supervisor: PSCJoey Transcribe Date/Time: Jan 30 2024 2:36P Dictated by : JESSIE BARTHOLOMEW MD This examination was interpreted and the report reviewed and electronically signed by: JESSIE BARTHOLOMEW MD on Jan 30 2024 2:37PM EST [facility] Radiology Study observation (narrative) [facility] XR Knee - right 4 ViewsOrder ed By: [facility] Provider on 01-30-2024 [facility] 25(OH)D3 SerPl-mCncon 2023 25-hydroxyvitamin D3 [Mass/Vol] 44.7 ng/mL Normal 31.0-80.0 [facility] Comment on above: Order Comment: Jenni ball Type: BLOOD SPECIMENOrdering Facility: [facility] Address: [address] [place] [address] Result Comment: Clas sification of 25 [place] Vitamin D status: Deficiency/Insufficiency: < or = 30 ng/ml. Sufficiency/Optimal Levels: 31-80 ng/mL Toxicity: > 100 ng/mL. Test performed by chemiluminescent immunoassay. Performed By: #### 1 989-3 ####[facility] LABIA [id number] [place] [address] [place] CBC W Auto Differential pane l (Bld)on 01-15-2024 Basophils (Bld) [#/Vol] 10*3/uL Normal <0.11 [facility] Comment on above: Order Comment: Jenni ball Type: BLOOD SPECIMENOrdering Facility: [facility] Address: [address] [place] [address] Performed By: #### 5 7021-8 ####[facility] LABIA [id number] [place] [address] [place] Basophils/100 WBC (Bld) 0.3 % Normal [facility] Comment on above: Order Comment: Jenni ball Type: BLOOD SPECIMENOrdering Facility: [facility] Address: [address] [place] [address] Performed By: #### 5 7021-8 ####[facility] LABCLIA [id number] [place] [address] [place] Differential cell count method Nom (Bld) Auto Normal [facility] Comment on above: Order Comment: Speci men Type: BLOOD SPECIMENOrdering Facility: [facility] Address: [address] [place] [address] Performed By: #### 5 7021-8 ####[facility] LABCLIA [id number] [place] [address] [place] Eosinophils (Bld) [#/Vol] 0.15 10*3/uL Normal <0.46 [facility] Comment on above: Order Comment: Speci men Type: BLOOD SPECIMENOrdering Facility: [facility] Address: [address] [place] [address] Performed By: #### 5 7021-8 ####[facility] LABCLIA [id number] [place] [address] [place] Eosinophils/100 WBC (Bld) 2.1 % Normal [facility] Comment on above: Order Comment: Speci men Type: BLOOD SPECIMENOrdering Facility: [facility] Address: [address] [place] [address] Performed By: #### 5 7021-8 ####[facility] LABCLIA [id number] [place] [address] [place] Erythrocyte distribution width (RBC) [Ratio] 13.4 % Normal 11.5-15.0 [facility] Comment on above: Order Comment: Speci men Type: BLOOD SPECIMENOrdering Facility: [facility] Address: [address] [place] [address] Performed By: #### 5 7021-8 ####[facility] LABCLIA [id number] [place] [address] [place] Hematocrit (Bld) [Volume fraction] 42.1 % Normal 36.0-46.0 [facility] Comment on above: Order Comment: Speci men Type: BLOOD SPECIMENOrdering Facility: [facility] Address: [address] [place] [address] Performed By: #### 5 7021-8 ####[facility] LABCLIA [id number] [place] [address] [place] Hemoglobin (Bld) [Mass/Vol] 13.8 g/dL Normal 11.5-15.5 [facility] Comment on above: Order Comment: Speci men Type: BLOOD SPECIMENOrdering Facility: [facility] Address: [address] [place] [address] Performed By: #### 5 7021-8 ####[facility] LABCLIA [id number] [place] [address] [place] Immature granulocytes (Bld) [#/Vol] 10*3/uL Normal <0.10 [facility] Comment on above: Order Comment: Speci men Type: BLOOD SPECIMENOrdering Facility: [facility] Address: [address] [place] [address] Performed By: #### 5 7021-8 ####[facility] LABIA [id number] [place] [address] [place] Immature granulocytes/100 WBC (Bld) 0.3 % Normal [facility] Comment on above: Order Comment: Speci men Type: BLOOD SPECIMENOrdering Facility: [facility] Address: [address] [place] [address] Performed By: #### 5 7021-8 ####[facility] LABCLIA [id number] [place] [address] [place] Lymphocytes (Bld) [#/Vol] 1.92 10*3/uL Normal 1.00-4.00 [facility] Comment on above: Order Comment: Speci men Type: BLOOD SPECIMENOrdering Facility: [facility] Address: [address] [place] [address] Performed By: #### 5 7021-8 ####[facility] LABIA [id number] [place] [address] [place] Lymphocytes/100 WBC (Bld) 27.5 % Normal [facility] Comment on above: Order Comment: Speci men Type: BLOOD SPECIMENOrdering Facility: [facility] Address: [address] [place] [address] Performed By: #### 5 7021-8 ####[facility] LABIA [id number] [place] [address] [place] MCH (RBC) [Entitic mass] 30.2 pg Normal 26.0-34.0 [facility] Comment on above: Order Comment: Speci men Type: BLOOD SPECIMENOrdering Facility: [facility] Address: [address] [place] [address] Performed By: #### 5 7021-8 ####[facility] LABIA [id number] [place] [address] [place] MCHC (RBC) [Mass/Vol] 32.8 g/dL Normal 30.5-36.0 [facility] Comment on above: Order Comment: Speci men Type: BLOOD SPECIMENOrdering Facility: [facility] Address: [address] [place] [address] Performed By: #### 5 7021-8 ####[facility] LABIA [id number] [place] [address] [place] MCV (RBC) [Entitic vol] 92.1 fL Normal 80.0-100.0 [facility] Comment on above: Order Comment: Speci men Type: BLOOD SPECIMENOrdering Facility: [facility] Address: [address] [place] [address] Performed By: #### 5 7021-8 ####[facility] LABIA [id number] [place] [address] [place] Monocytes (Bld) [#/Vol] 0.35 10*3/uL Normal <0.87 [facility] Comment on above: Order Comment: Speci men Type: BLOOD SPECIMENOrdering Facility: [facility] Address: [address] [place] [address] Performed By: #### 5 7021-8 ####[facility] LABCLIA [id number] [place] [address] [place] Monocytes/100 WBC (Bld) 5.0 % Normal [facility] Comment on above: Order Comment: Speci men Type: BLOOD SPECIMENOrdering Facility: [facility] Address: [address] [place] [address] Performed By: #### 5 7021-8 ####[facility] LABCLIA [id number] [place] [address] [place] Neutrophils (Bld) [#/Vol] 4.53 10*3/uL Normal 1.45-7.50 [facility] Comment on above: Order Comment: Speci men Type: BLOOD SPECIMENOrdering Facility: [facility] Address: [address] [place] [address] Performed By: #### 5 7021-8 ####[facility] LABCLIA [id number] [place] [address] [place] Neutrophils/100 WBC (Bld) 64.8 % Normal [facility] Comment on above: Order Comment: Speci men Type: BLOOD SPECIMENOrdering Facility: [facility] Address: [address] [place] [address] Performed By: #### 5 7021-8 ####[facility] LABCLIA [id number] [place] [address] [place] Nucleated RBC (Bld) [#/Vol] 10*3/uL Normal <0.01 [facility] Comment on above: Order Comment: Speci men Type: BLOOD SPECIMENOrdering Facility: [facility] Address: [address] [place] [address] Performed By: #### 5 7021-8 ####[facility] LABCLIA [id number] [place] [address] [place] Nucleated RBC/100 WBC (Bld) [Ratio] 0.0 /100 WBC Normal [facility] Comment on above: Order Comment: Speci men Type: BLOOD SPECIMENOrdering Facility: [facility] Address: [address] [place] [address] Performed By: #### 5 7021-8 ####[facility] LABIA [id number] [place] [address] [place] Platelet mean volume (Bld) [Entitic vol] 10.8 fL Normal 9.0-12.7 [facility] Comment on above: Order Comment: Speci men Type: BLOOD SPECIMENOrdering Facility: [facility] Address: [address] [place] [address] Performed By: #### 5 7021-8 ####[facility] LABIA [id number] [place] [address] [place] Platelets (Bld) [#/Vol] 276 10*3/uL Normal 150-400 [facility] Comment on above: Order Comment: Speci men Type: BLOOD SPECIMENOrdering Facility: [facility] Address: [address] [place] [address] Performed By: #### 5 7021-8 ####[facility] LABIA [id number] [place] [address] [place] RBC (Bld) [#/Vol] 4.57 10*6/uL Normal 3.90-5.20 [facility] Comment on above: Order Comment: Speci men Type: BLOOD SPECIMENOrdering Facility: [facility] Address: [address] [place] [address] Performed By: #### 5 7021-8 ####[facility] LABIA [id number] [place] [address] [place] WBC (Bld) [#/Vol] 6.99 10*3/uL Normal 3.70-11.00 [facility] Comment on above: Order Comment: Speci men Type: BLOOD SPECIMENOrdering Facility: [facility] Address: [address] [place] [address] Performed By: #### 5 7021-8 ####[facility] LABCLIA [id number] [place] [address] [place] Comprehensive metabolic 2000 panelon 01-15-2024 Albumin [Mass/Vol] 4.3 g/dL Normal 3.9-4.9 [facility] Comment on above: Order Comment: Speci men Type: BLOOD SPECIMENOrdering Facility: [facility] Address: [address] [place] [address] Performed By: #### 2 4331-1, 6-3, 77191-0, 41854-8 ####[facility] LABCLIA [id number] [place] [address] [place] ALP [Catalytic activity/Vol] 76 U/L Normal 34-123 [facility] Comment on above: Order Comment: Speci men Type: BLOOD SPECIMENOrdering Facility: [facility] Address: [address] [place] [address] Performed By: #### 2 4331-1, 6-3, 40494-9, 39512-9 ####[facility] LABCLIA [id number] [place] [address] [place] ALT [Catalytic activity/Vol] 10 U/L Normal 7-38 [facility] Comment on above: Order Comment: Speci men Type: BLOOD SPECIMENOrdering Facility: [facility] Address: [address] [place] [address] Performed By: #### 2 4331-1, 3016-3, 18709-6, 30022-2 ####[facility] LABCLIA [id number] [id number] [address] [place] Anion gap [Moles/Vol] 13 mmol/L Normal 9-18 [facility] Comment on above: Order Comment: Speci men Type: BLOOD SPECIMENOrdering Facility: [facility] Address: [address] [place] [address] Performed By: #### 2 4331-1, 3016-3, 88219-3, 50084-2 ####[facility] LABCLIA [id number] [place] [address] [place] AST [Catalytic activity/Vol] 15 U/L Normal 13-35 [facility] Comment on above: Order Comment: Speci men Type: BLOOD SPECIMENOrdering Facility: [facility] Address: [address] [place] [address] Performed By: #### 2 4331-1, 3016-3, 10513-2, 04666-0 ####[facility] LABCLIA [id number] [place] [address] [place] Bilirubin [Mass/Vol] 0.5 mg/dL Normal 0.2-1.3 [facility] Comment on above: Order Comment: Speci men Type: BLOOD SPECIMENOrdering Facility: [facility] Address: [address] [place] [address] Performed By: #### 2 4331-1, 3016-3, 03510-1, 11328-2 ####[facility] LABCLIA [id number] [place] [address] [place] Calcium [Mass/Vol] 9.4 mg/dL Normal 8.5-10.2 [facility] Comment on above: Order Comment: Speci men Type: BLOOD SPECIMENOrdering Facility: [facility] Address: [address] [place] [address] Performed By: #### 2 4331-1, 3016-3, 84170-2, 22293-9 ####[facility] LABCLIA [id number] [place] [address] [place] Chloride [Moles/Vol] 102 mmol/L Normal 97-105 [facility] Comment on above: Order Comment: Speci men Type: BLOOD SPECIMENOrdering Facility: [facility] Address: [address] [place] [address] Performed By: #### 2 4331-1, 3016-3, 62802-7, 91982-6 ####[facility] LABCLIA [id number] [place] [address] [place] CO2 [Moles/Vol] 23 mmol/L Normal 22-30 [facility] Comment on above: Order Comment: Speci men Type: BLOOD SPECIMENOrdering Facility: [facility] Address: [address] [place] [address] Performed By: #### 2 4331-1, 3016-3, 34356-5, 75321-2 ####[facility] LABIA [id number] [place] [address] [place] Creatinine [Mass/Vol] 0.53 mg/dL Low 0.58-0.96 [facility] Comment on above: Order Comment: Speci men Type: BLOOD SPECIMENOrdering Facility: [facility] Address: [address] [place] [address] Performed By: #### 2 4331-1, 3016-3, 39255-7, 25948-4 ####[facility] LABIA [id number] [place] [address] [place] Creatinine and Glomerular filtration rate.predicted panel (S/P/Bld) 116 mL/min/1.73m??? Normal >=60 [facility] Comment on above: Order Comment: Speci men Type: BLOOD SPECIMENOrdering Facility: [facility] Address: [address] [place] [address] Result Comment: Suzy mated Glomerular Filtration Rate (eGFR) is calculated using the 2020 CKD-EPI creatinine equation. This equation utilizes serum creatinine, sex, and age as parameters. The creatinine assay has traceable calibration to isotope dilution-mass spectrometry. Refer to KDIGO guidelines for clinical interpretation. In patients with unstable renal function, e.g. those with acute kidney injury, the eGFR may not accurately reflect actual GFR. Performed By: #### 2 4331-1, 6-3, , ####[facility] LABCLIA [id number] [address] [address] [place] Glucose [Mass/Vol] 104 mg/dL High 74-99 [facility] Comment on above: Order Comment: Jenni ball Type: BLOOD SPECIMENOrdering Facility: [facility] Address: [address] [place] [address] Result Comment: The [place] Diabetes Association (ADA) provides guidance for cutoff values for fasting glucose and random glucose. The ADA defines fasting as no caloric intake for at least 8 hours. Fasting plasma glucose results between 100 to 125 [...] Standards of Medical Care in Diabetes 2016, [place] [employer]. Diabetes Care. 2016.39(Suppl 1). Performed By: #### 2 4331-1, 6-3, , ####[facility] LABCLIA [id number] [facility] [address] [address] [place] Potassium [Moles/Vol] 4.2 mmol/L Normal 3.7-5.1 [facility] Comment on above: Order Comment: Jenni ball Type: BLOOD SPECIMENOrdering Facility: [facility] Address: [address] [place] [address] Performed By: #### 2 4331-1, 6-3, , ####[facility] LABCLIA [id number] [facility] [id number] [place] [address] [place] Protein [Mass/Vol] 7.1 g/dL Normal 6.3-8.0 [facility] Comment on above: Order Comment: Speci men Type: BLOOD SPECIMENOrdering Facility: [facility] Address: [address] [place] [address] Performed By: #### 2 4331-1, 3016-3, 72182-4, 97794-8 ####[facility] LABCLIA [id number] [place] [address] [place] Sodium [Moles/Vol] 138 mmol/L Normal 136-144 [facility] Comment on above: Order Comment: Speci men Type: BLOOD SPECIMENOrdering Facility: [facility] Address: [address] [place] [address] Performed By: #### 2 4331-1, 6-3, 51204-0, 16193-5 ####[facility] LABCLIA [id number] [place] [address] [place] Urea nitrogen [Mass/Vol] 10 mg/dL Normal 7-21 [facility] Comment on above: Order Comment: Speci men Type: BLOOD SPECIMENOrdering Facility: [facility] Address: [address] [place] [address] Performed By: #### 2 4331-1, 3015-3, 70365-1, 33112-4 ####[facility] LABIA [id number] [place] [address] [place] HbA1c (Bld)on 01-15-2024 Average glucose Estimated from glycated hemoglobin (Bld) [Mass/Vol] 108 mg/dL Normal [facility] Comment on above: Order Comment: Speci men Type: BLOOD SPECIMENOrdering Facility: [facility] Address: [address] [place] [address] Result Comment: eAG: (Estimated average glucose) is a calculated value from HgbA1c and is event marketing representative of the average blood glucose level in the last 2-3 month period. Performed By: #### 5 5454-3 ####[facility] LABCLIA [id number] [place] [address] [place] HbA1c (Bld) [Mass fraction] 5.4 % Normal 4.3-5.6 [facility] Comment on above: Order Comment: Jenni ball Type: BLOOD SPECIMENOrdering Facility: [facility] Address: [address] [place] [address] Result Comment: [place] Diabetes Association guidelines indicate that patients with HgbA1c in the range 5.7-6.4% are at increased risk for development of diabetes, and intervention by lifestyle modification may be beneficial. HgbA1c greater or equal to 6.5% is considered diagnostic of diabetes. Performed By: #### 5 5454-3 ####[facility] LABCLIA [id number] [place] [address] [place] Lipid 1996 panelon 4 Cholesterol [Mass/Vol] 167 mg/dL Normal <200 [facility] Comment on above: Order Comment: Jenni ball Type: BLOOD SPECIMENOrdering Facility: [facility] Address: [address] [place] [address] Result Comment: <200 mg/dL, Desirable 200-239 mg/dL, Borderline high >239 mg/dL, High Performed By: #### 2 4331-1, 3016-3, , 15274-9 ####[facility] LABCLIA [id number] [address] [place] Cholesterol in HDL [Mass/Vol] 40 mg/dL Normal >39 [facility] Comment on above: Order Comment: Guerreroi men Type: BLOOD SPECIMENOrdering Facility: [facility] Address: [address] [place] [address] Result Comment: 40-5 9 mg/dL, Acceptable >59 mg/dL, High: Negative risk factor for coronary heart disease <40 mg/dL, Low: Positive risk factor for coronary heart disease Performed By: #### 2 4331-1, 3016-3, , 13021-8 ####[facility] LABCLIA [id number] [address] [address] [place] Cholesterol in LDL [Mass/Vol] 88 mg/dL Normal <100 [facility] Comment on above: Order Comment: Speci men Type: BLOOD SPECIMENOrdering Facility: [facility] Address: [address] [place] [address] Result Comment: <100 mg/dL, Optimal 100-129 mg/dL, Near optimal/above optimal 130-159 mg/dL, Borderline high 160-189 mg/dL, High >189 mg/dL, Very high Secondary prevention optimal LDL Cholesterol levels are recommended to be < 70 mg/dL Performed By: #### 2 4331-1, 3015-3, , ####[facility] [facility] LABCLIA [id number] [address] [address] [place] Cholesterol in LDL/Cholesterol in HDL [Mass ratio] 2.20 {ratio} Normal <2.54 [facility] Comment on above: Order Comment: Speci men Type: BLOOD SPECIMENOrdering Facility: [facility] Address: [address] [place] [address] Result Comment: Elisabet wade: 1. National Cholesterol Education Program ATP III Guideline At-A-Glance Quick Desk Reference: National Heart, Lung, and Blood [place]. National Institutes of Health. 2001: NIH Publication No. 01-3305. 2. An International Atherosclerosis Society position paper: global recommendations for the management of dyslipidemia: executive summary, Atherosclerosis. 2014: 232(2):410-413. Performed By: #### 2 4331-1, 3015-3, , ####[facility] LABCLIA [id number] [address] [address] [place] Cholesterol in VLDL [Mass/Vol] 39 mg/dL High <30 [facility] Comment on above: Order Comment: Speci men Type: BLOOD SPECIMENOrdering Facility: [facility] Address: [address] [place] [address] Performed By: #### 2 4331-1, 3015-3, , ####[facility] LABCLIA [id number] [address] [address] [place] Cholesterol non HDL [Mass/Vol] 127 mg/dL Normal <130 [facility] Comment on above: Order Comment: Speci men Type: BLOOD SPECIMENOrdering Facility: [facility] Address: [address] [place] [address] Result Comment: <130 mg/dL, Optimal 130-159 mg/dL, Near optimal/above optimal 160-189 mg/dL, Borderline high 190-219 mg/dL, High >219 mg/dL, Very high Secondary prevention optimal non HDL Cholesterol levels are recommended to be <100 mg/dL Performed By: #### 2 4331-1, 3015-3, , ####[facility] LABCLIA [id number] [address] [address] [place] Cholesterol.total/ Cholesterol in HDL [Mass ratio] 4.18 {ratio} Normal <5.10 [facility] Comment on above: Order Comment: Speci men Type: BLOOD SPECIMENOrdering Facility: [facility] Address: [address] [place] [address] Performed By: #### 2 4331-1, 3, , ####[facility] LABCLIA [id number] [address] [address] [place] FASTING TIME 13 hrs Normal [facility] Comment on above: Order Comment: Speci men Type: BLOOD SPECIMENOrdering Facility: [facility] Address: [address] [place] [address] Performed By: #### 2 4331-1, 3015-3, , ####[facility] LABCLIA [id number] [address] [address] [place] Triglyceride [Mass/Vol] 196 mg/dL High <150 [facility] Comment on above: Order Comment: Jenni ball Type: BLOOD SPECIMENOrdering Facility: [facility] Address: [address] [place] [address] Result Comment: <150 mg/dL, Normal 150-199 mg/dL, Borderline high 200-499 mg/dL, High >499 mg/dL, Very high Performed By: #### 2 4331-1, 3016-3, 88174-3, 89772-7 ####[facility] LABCLIA [id number] [place] [address] [place] Magnesium SerPl-mCncon 01-14 Magnesium [Mass/Vol] 1.9 mg/dL Normal 1.7-2.3 [facility] Comment on above: Order Comment: Jenni ball Type: BLOOD SPECIMENOrdering Facility: [facility] Address: [address] [place] [address] Performed By: #### 2 4331-1, 3016-3, , ####[facility] LABCLIA [id number] [place] [address] [place] TSH SerPl-aCncon 01-15-2024 TSH Qn 0.615 m[IU]/L Normal 0.270-4.200 [facility] Comment on above: Order Comment: Jenni ball Type: BLOOD SPECIMENOrdering Facility: [facility] Address: [address] [place] [address] Result Comment: If t he patient is , TSH reference range varies by gestational period: First Trimester (weeks 9-12): 0.180-2.990 mIU/L Second Trimester: 0.110-3.980 mIU/L Third Trimester: 0.480-4.710 mIU/L Marco Rodarte et al. A Practical Approach for the Verifications and Determination of Site- and Trimester-Specific Reference Intervals for Thyroid Function tests in . Thyroid, 2019:29:3:412-420. [place] E, et al. 2017 Guidelines of the [place] Thyroid [employer] for the Diagnosis and Management of Thyroid Disease during and the . Thyroid, 2017:27:3:315-389. Performed By: #### 2 4331-1, 3016-3, 73361-5, 14627-9 ####[facility] LABCLIA [id number] [place] [address] [place] Vit B12 SerPl-mCncon 16-2 024 Cobalamin (Vitamin B12) [Mass/Vol] 251 pg/mL Normal 232-1245 [facility] Comment on above: Order Comment: Speci men Type: BLOOD SPECIMENOrdering Facility: [facility] Address: [address] [place] [address] Performed By: #### 2 132-9 ####[facility] LABCLIA [id number] [place] [address] [place] CNOVon 01-07-2024 CNOV Office Visit (FAMPWS ) INDIGO MEIER ([id number]) 1975 Sandra Shankar Ma* Date Time Provider Department 01/07/24 8:40 AM [facility] During your visit today, we recorded the following information about you: Pulse Respiration Blood pressure Weight 72/minute 16/minute 146/98 78.1 kg Height 1.585 m Mignon Orozco, GAME PROGRAMMER.DIRECTOR TARGETED MARKETING 01/07/2024 9:17 AM Signed Chief Reason For Appointment Patient presents with: Wellness Also, BP has been high Indigo Kaykay Meier is a 48 year old female who presents for annual exam. Last office visit date: 05/29/2023 Accompanied By self only Have you had any critical events, hospital stays, ER visits, surgeries or procedures since your last visit here in our office: No Specialists/Other Healthcare Providers Seen: Patient Care Team: Jaguar Cook PA-C as PCP - General (Family Medicine) Concerns today: BP has been running high Sinus trouble Headache HPI Was in ER for dizziness and headache. Had constipation. Active Problems ACTIVE PROBLEM LIST Low Back Pain - 03/20/2023 Prediabetes - 10/27/2022 Adenoma of Liver - 08/20/2022 Liver Nodule - 03/27/2022 Comment: 08/11/2022 consult hepatology Dee Dee Nava MD: Annual LFT to confirm continued normalization of LFT, no intervention indicated 03/23/2022 MRI Liver w/wo IVCon: 1.2 x 1 cm nodule in the inferior left lobe of the liver; 8 mm focus of arterial phase enhancement in the right dome of isointense to liver parenchyma on other sequences. Normal hepatic morphology: liver hyperplasia vs hepatic adenoma. Portal vein and branches, splenic vein, superior mesenteric vein and hepatic veins are patent. Biliary: No duct dilation or filling defect. Gallbladder is absent. Spleen, pancreas, kidneys WNL. 6 month f/u for stability Palpitations - 02/08/2022 Gerd (Gastroesophageal Reflux Disease) - 02/08/2022 Elevated Liver Enzymes - 02/08/2022 Internal Hemorrhoid - 02/08/2022 Other Chest Pain - 12/15/2021 Comment: 04/24/2022 stress echo without contrast W Dr. Mccauley: Juan Carlos protocol for total of 8 minutes and 11 seconds, MHR 1 4682% of maximum, MDQ 10.1. No ST or T wave changes to suggest ischemia, no clinical angina. Echo demonstrated ejection fraction of 55%, no regional wall motion abnormalities, positive for thickening of all mckay with reduction in ventricular cavity size with peak ejection fraction 65%. Negative for ischemia at a high workload. 12/12/2021 presented to emergency department [facility] with complaint of chest pain, gradual onset, continuous with both positive and sharp, squeezing pain left chest aggravated by movement of torso relieved by remaining still. Positive associated symptoms of lightheadedness. Negative for nausea, vomiting, diaphoresis, dyspnea, cough, fever, acid reflux and palpitations. Vital signs: 97.8 F-72-17-162/111--99% RA. Exam essentially within normal limits. CBC with differential WNL. CMP WNL except glucose 151. Chest x-ray no acute findings. 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 Needs PSG to determine if she has narcolepsy or if this is conversion disorder. 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 See 05/20 te. Pain in Joint, Lower Leg - 02/21/2012 Anxiety State - 07/25/2005 Other Acne - 07/25/2005 ROS: GENERAL: No weight loss, malaise or fevers/chills HEENT: Negative for frequent or significant headaches, No changes in hearing or vision. NECK: Negative for lumps, goiter, pain and significant neck swelling RESPIRATORY: Negative for cough, hemoptysis, wheezing, dyspnea or shortness of breath CARDIOVASCULAR: Negative for chest pain, leg swelling, orthopnea, or palpitations GI: No nausea, vomiting, or diarrhea/constipation. No hematochezia/melena. No heartburn or reflux symptoms. : No history of dysuria, frequency or incontinence MUSCULOSKELETAL: Negative for joint pain or swelling. Fibromyalgia- widespread SKIN: Negative for lesions, rash, and itching ENDOCRINE: Negative for cold or heat intolerance, polyuria, polydipsia and goiter NEURO: No history of headaches, syncope, paralysis, seizures or tremors MOOD: Negative for depression, anxiety, (more content not included)... Normal [facility] CNPNon 01-07-2024 CNPN Telephone (FAMPWS) INDIGO MEIER ([id number]) 1975 F [employer]* Date Time Provider Department 01/07/24 MIGNON OROZCO During your visit today, we recorded the following information about you: Florence Brantley LPN 01/07/2024 10:45 AM Signed [facility] Pharmacist is calling in regards to lisinopril 10 mg -take 3 tabs daily #30. Pharmacist is asking provider to verify rx. [facility]arma[facility] states that is a 10 day supply. Asking if provider wants to change rx. TISH Zuluaga Jacqueline A, APRN.DIRECTOR TARGETED MARKETING 01/07/2024 11:05 AM Signed Rewrote order. D/c lisinopril 10mg tab and switched to 30mg tablets. Allergies As of Date: 01/07/2024 Noted Allergy Reaction HOUSE DUST 08/12/2020 3 - Cough MAPLE FLAVOR 08/12/2020 7 - Swelling METRONIDAZOLE 09/14/2022 8 - GI Upset SEASONAL ALLERGIES 04/09/2019 12 - Shortness of Breath Date Reviewed: 01/07/2024 Reviewed by: Mignon Orozco APRN.DIRECTOR TARGETED MARKETING - Fully Assessed Reason for Visit: Medication Question [7408] Primary Visit Diagnosis:Essential hypertension [I10] Order(s):lisinopril (ZESTRIL) 30 mg tabletTake 1 tablet by mouth once daily.Disp: 90 tabletRfl: 3 Prescriptions as of 01/07/2024 - ibuprofen (MOTRIN) 800 mg tablet Take 1 tablet by mouth every 8 hours as needed (FOR PAIN. TAKE WITH FOOD). - lisinopril (ZESTRIL) 30 mg tablet Take 1 tablet by mouth once daily. - ondansetron orally disintegrating (ZOFRAN ODT) 4 mg disintegrating tablet Take 1 tablet by mouth every 6 hours as needed for nausea/vomiting. - Omeprazole Magnesium (PRILOSEC OTC) 20 mg tablet Take 1 tablet by mouth once daily. - fluticasone (FLONASE) 50 mcg/actuation nasal spray Use 2 Sprays in each nostril once daily. Rinse mouth after use. - albuterol HFA (PROVENTIL HFA, VENTOLIN HFA) 90 mcg/actuation inhaler Inhale 2 Puffs as instructed every 6 hours as needed for wheezing/shortness of breath. - cyclobenzaprine (FLEXERIL) 10 mg tablet Take 1 tablet by mouth three times a day as needed for muscle spasm. - metoprolol tartrate, short acting, (LOPRESSOR) 50 mg tablet Take 1 tablet by mouth twice daily. - simvastatin (ZOCOR) 10 mg tablet Take 1 tablet by mouth once daily. - Lactobacillus acidophilus (FLORAJEN ACIDOPHILUS) 20 billion cell cap Take 1 capsule by mouth once daily. - levonorgestrel (MIRENA) 20 mcg/24 hours (5 yrs) 52 mg IUD 1 Each by INTRAUTERINE route as directed. - Cholecalciferol, Vitamin D3, 1,000 unit cap Take 1 capsule by mouth once daily. Meds Comments as of 01/07/2024: Given Augmentin 875-125 mg 1 tab po BID for 10 day at [facility] on 01/04/24. Problem List As Of Date 01/07/2024 Noted Resolved Anxiety state [F41.1] 07/25/2005 Other acne [L70.8] 07/25/2005 Pain in joint, lower leg [M25.569] 02/21/2012 Backache, unspecified [M54.9] 04/26/2012 Hyperlipidemia with target LDL less than 130 [E*05/03/2012 HTN (hypertension) [I10] 05/29/2012 04/04/2016 Marijuana use [F12.90] 12/30/2012 Other enthesopathy of ankle and tarsus [M77.50] 02/10/2015 Peroneal tendonitis of right lower extremity [M*02/24/2015 Vertigo [R42] 10/07/2015 Visual disturbances [H53.9] 10/07/2015 Vitreous floaters of both eyes [H43.393] 10/07/2015 Essential hypertension [I10] 04/04/2016 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] 05/15/2016 Sacroiliac joint pain [M53.3] 07/13/2016 Fibromyalgia [M79.7] 09/07/2017 Convulsion, 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 Neck pain [M54.2] 11/28/2019 Upper back pain [M54.9] 11/28/2019 Bilateral shoulder pain [M25.511, M25.512] 11/28/2019 Other chest pain [R07.89] 12/15/2021 Palpitations [R00.2] 02/08/2022 GERD (gastroesophageal reflux disease) [K21.9] 02/08/2022 Elevated liver enzymes [R74.8] 02/08/2022 Internal hemorrhoid [K64.8] 02/08/2022 Liver nodule [K76.89] 03/27/2022 Acute pain of right shoulder [M25.511] 04/05/2022 07/03/2022 Adenoma of liver [D13.4] 08/20/2022 Chronic midline low back pain without sciatica *10/17/2022 01/01/2023 Chronic neck pain [M54.2, G89.29] 10/17/2022 01/01/2023 Lateral epicondylitis, right elbow [M77.11] 10/17/2022 01/01/2023 Prediabetes [R73.03] 10/27/2022 Low back pain [M54.50] 03/20/2023 Prescriptions ordered this encounter Disp Refills Start End LISINOPRIL 30 MG TABLET 90 t* 3 01/07/2024 01/06/2025 Cmt: Increased dose- 30mg daily Route: ORAL Sig: Take 1 tablet by mouth once daily. Medications Discontinued During This Encounter Prescriptions - lisinopril (ZESTRIL) 10 mg tablet (Discontinued) Take 3 tablets by mouth once daily. Encounter Status:Closed by MIGNON OROZCO on 01/07/24 [facility] 01-04-2024 CNOV Office Visit (UCWSTR ) INDIGO MEIER ([id number]) 1975 [employer]* Date Time Provider Department 01/04/24 1:15 PM JESSICA HUTCHISON UCWSTR During your visit today, we recorded the following information about you: Temperature Pulse Respiration Blood pressure 98.6 degrees 59/minute 18/minute 195/126 Weight 75.8 kg Jessica Hutchison, GAME PROGRAMMER.NEWSPAPER OR PERIODICAL EDITOR 01/04/2024 2:02 PM Signed Subjective Dizziness The patient's pertinent negatives include no focal weakness or weakness. Associated symptoms include dizziness and headaches. Pertinent negatives include no chest pain, fever, nausea, shortness of breath or vomiting. Indigo Meier is a 48 year old female who presents with dizziness of sudden onset at work today. She had bent over to get something out of a filing cabinet and when she sat up felt dizzy. She has had vertigo in the past and figured it was d/t that but it did not get better after resting. She also noticed her hands were shaking and she was seeing some spots in her vision. Review of Systems Constitutional: Negative for chills and fever. Respiratory: Negative for shortness of breath. Cardiovascular: Negative for chest pain. Gastrointestinal: Negative for nausea and vomiting. Neurological: Positive for dizziness and headaches. Negative for sensory change, speech change, focal weakness, seizures, loss of consciousness and weakness. BP (!) 195/126 Pulse (!) 59 Temp 37 ?C (98.6 ?F) Resp 18 Wt 75.8 kg (167 lb) LMP 05/17/2023 (Exact Date) SpO2 99% BMI 29.58 kg/m? PAST MEDICAL HISTORY Diagnosis Date Anxiety generalized anxiety AND panic disorder (diagnosed by PCP) Chronic back [...] Maple Flavor, Metronidazole, and Seasonal Allergies MEDICATIONS lisinopril (ZESTRIL) 10 mg tablet Take 1 tablet by mouth once daily. polyethylene glycol 3350 (MIRALAX) 17 gram/dose powder 17 g (~1 heaping tablespoon) dissolved in 120 to 240 mL (4 to 8 ounces) of beverage, once daily. ondansetron orally disintegrating (ZOFRAN ODT) 4 mg disintegrating tablet Take 1 tablet by mouth every 6 hours as needed for nausea/vomiting. Omeprazole Magnesium (PRILOSEC OTC) 20 mg tablet Take 1 tablet by mouth once daily. fluticasone (FLONASE) 50 mcg/actuation nasal spray Use 2 Sprays in each nostril once daily. Rinse mouth after use. albuterol HFA (PROVENTIL HFA, VENTOLIN HFA) 90 [...] nursing note reviewed. Constitutional: Appearance: Normal appearance. HENT: Right Ear: Tympanic membrane, ear canal and external ear normal. Left Ear: Tympanic membrane, ear canal and external ear normal. Eyes: Extraocular Movements: Right eye: Normal extraocular motion and no nystagmus. Left eye: Normal extraocular motion and no nystagmus. Pupils: Pupils are equal, round, and reactive to light. Cardiovascular: Rate and Rhythm: Normal rate and regular rhythm. Heart sounds: Normal heart sounds. Pulmonary: Effort: Pulmonary (more content not included)... [facility] INDIGO MEIER ([id number]) 1975 F [employer]* Date Time Provider Department 12/26/23 INDIGO CANDELARIO During your visit today, we recorded the following information about you: Mary Oliver LPN 12/26/2023 2:31 PM Signed Patient called stating that she had a positive urogenital ureaplasma culture 12/16 and that she has 4 tablets of doxycycline left and is still c/o urinary pressure and frequency. Patient asking if another antibiotic is needed? UROGENITAL UREAPLASMA AND MYCOPLASMA SPECIES BY PCR, FOR GENITAL, RECTAL, URINE SAMPLES Order: [id number] Status: Final result Visible to patient: Yes (seen) Dx: Vaginal odor; Urinary frequency; Vagi... 0 Result Notes 1 Follow-up Encounter Component 9 d ago UR/MYCO Source Genital UR Parvum PCR Detected Abnormal UR Urealyticum PCR Detected Abnormal Mycoplas Hominis PCR Not Detected M genitalium PCR Not Detected Comment: INTERPRETIVE INFORMATION: Urogenital Ureaplasma and Mycoplasma Species by PCR Indigo Candelario APRN.RIZWAN 12/27/2023 6:57 AM Signed Moxifloxacin sent to pharmacy for her to take for one week following the doxycycline. She should not take her Zofran while taking this antibiotic. If she is sexually active, I can send expedited partner treatment of doxycycline if she would like. If so, please obtain partner information. Indigo Candelario APRN.Ifrah Casper LPN 12/27/2023 9:52 AM Signed Pt notified and stated that she is not sexually active.pt voiced understanding with no further questions. Ifrah Carmichael LPN Allergies As of Date: 12/26/2023 Noted Allergy Reaction HOUSE DUST 08/12/2020 3 - Cough MAPLE FLAVOR 08/12/2020 7 - Swelling METRONIDAZOLE 09/14/2022 8 - GI Upset SEASONAL ALLERGIES 04/09/2019 12 - Shortness of Breath Date Reviewed: 12/17/2023 Reviewed by: Aniya Ramírez APRN.NEWSPAPER OR PERIODICAL EDITOR - Fully Assessed Reason for Visit: Patient Update [1234] Order(s):moxifloxacin (AVELOX) 400 mg tabletTake 1 tablet by mouth once daily for 7 days. Start day after last dose of doxycycline is taken.Disp: 7 tabletRfl: 0 Prescriptions as of 12/27/2023 - moxifloxacin (AVELOX) 400 mg tablet Take 1 tablet by mouth once daily for 7 days. Start day after last dose of doxycycline is taken. - lisinopril (ZESTRIL) 10 mg tablet Take 1 tablet by mouth once daily. - doxycycline (VIBRA-TABS) 100 mg tablet Take 1 tablet by mouth two times a day for 7 days. - polyethylene glycol 3350 (MIRALAX) 17 gram/dose powder 17 g (~1 heaping tablespoon) dissolved in 120 to 240 mL (4 to 8 ounces) of beverage, once daily. - ondansetron orally disintegrating (ZOFRAN ODT) 4 mg disintegrating tablet Take 1 tablet by mouth every 6 hours as needed for nausea/vomiting. - Omeprazole Magnesium (PRILOSEC OTC) 20 mg tablet Take 1 tablet by mouth once daily. - fluticasone (FLONASE) 50 mcg/actuation nasal spray Use 2 Sprays in each nostril once daily. Rinse mouth after use. - albuterol HFA (PROVENTIL HFA, VENTOLIN HFA) 90 mcg/actuation inhaler Inhale 2 Puffs as instructed every 6 hours as needed for wheezing/shortness of breath. - cyclobenzaprine (FLEXERIL) 10 mg tablet Take 1 tablet by mouth three times a day as needed for muscle spasm. - metoprolol tartrate, short acting, (LOPRESSOR) 50 mg tablet Take 1 tablet by mouth twice daily. - simvastatin (ZOCOR) 10 mg tablet Take 1 tablet by mouth once daily. - Lactobacillus acidophilus (FLORAJEN ACIDOPHILUS) 20 billion cell cap Take 1 capsule by mouth once daily. - levonorgestrel (MIRENA) 20 mcg/24 hours (5 yrs) 52 mg IUD 1 Each by INTRAUTERINE route as directed. - Cholecalciferol, Vitamin D3, 1,000 unit cap Take 1 capsule by mouth once daily. Problem List As Of Date 12/26/2023 Noted Resolved Anxiety state [F41.1] 07/25/2005 Other acne [L70.8] 07/25/2005 Pain in joint, lower leg [M25.569] 02/21/2012 Backache, unspecified [M54.9] 04/26/2012 Hyperlipidemia with target LDL less than 130 [E*05/03/2012 HTN (hypertension) [I10] 05/29/2012 04/04/2016 Marijuana use [F12.90] 12/30/2012 Other enthesopathy of ankle and tarsus [M77.50] 02/10/2015 Peroneal tendonitis of right lower extremity [M*02/24/2015 Vertigo [R42] 10/07/2015 Visual disturbances [H53.9] 10/07/2015 Vitreous floaters of both eyes [H43.393] 10/07/2015 Essential hypertension [I10] 04/04/2016 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 [facility] (OBGYWM[facility] INDIGO MEIER ([id number]) 1975 [employer]* Date Time Provider Department 12/21/23 ANIYA RAMÍREZ During your visit today, we recorded the following information about you: Allergies As of Date: 12/21/2023 Noted Allergy Reaction HOUSE DUST 08/12/2020 3 - Cough MAPLE FLAVOR 08/12/2020 7 - Swelling METRONIDAZOLE 09/14/2022 8 - GI Upset SEASONAL ALLERGIES 04/09/2019 12 - Shortness of Breath Date Reviewed: 12/17/2023 Reviewed by: Aniya Ramírez APRN.NEWSPAPER OR PERIODICAL EDITOR - Fully Assessed Reason for Visit: Results [95] Order(s):doxycycline (VIBRA-TABS) 100 mg tabletTake 1 tablet by mouth two times a day for 7 days.Disp: 14 tabletRfl: 0 Prescriptions as of 12/21/2023 - doxycycline (VIBRA-TABS) 100 mg tablet Take 1 tablet by mouth two times a day for 7 days. - polyethylene glycol 3350 (MIRALAX) 17 gram/dose powder 17 g (~1 heaping tablespoon) dissolved in 120 to 240 mL (4 to 8 ounces) of beverage, once daily. - ondansetron orally disintegrating (ZOFRAN ODT) 4 mg disintegrating tablet Take 1 tablet by mouth every 6 hours as needed for nausea/vomiting. - Omeprazole Magnesium (PRILOSEC OTC) 20 mg tablet Take 1 tablet by mouth once daily. - fluticasone (FLONASE) 50 mcg/actuation nasal spray Use 2 Sprays in each nostril once daily. Rinse mouth after use. - lisinopril (ZESTRIL) 10 mg tablet Take 1 tablet by mouth once daily. - albuterol HFA (PROVENTIL HFA, VENTOLIN HFA) 90 mcg/actuation inhaler Inhale 2 Puffs as instructed every 6 hours as needed for wheezing/shortness of breath. - cyclobenzaprine (FLEXERIL) 10 mg tablet Take 1 tablet by mouth three times a day as needed for muscle spasm. - metoprolol tartrate, short acting, (LOPRESSOR) 50 mg tablet Take 1 tablet by mouth twice daily. - simvastatin (ZOCOR) 10 mg tablet Take 1 tablet by mouth once daily. - Lactobacillus acidophilus (FLORAJEN ACIDOPHILUS) 20 billion cell cap Take 1 capsule by mouth once daily. - levonorgestrel (MIRENA) 20 mcg/24 hours (5 yrs) 52 mg IUD 1 Each by INTRAUTERINE route as directed. - Cholecalciferol, Vitamin D3, 1,000 unit cap Take 1 capsule by mouth once daily. Problem List As Of Date 12/21/2023 Noted Resolved Anxiety state [F41.1] 07/25/2005 Other acne [L70.8] 07/25/2005 Pain in joint, lower leg [M25.569] 02/21/2012 Backache, unspecified [M54.9] 04/26/2012 Hyperlipidemia with target LDL less than 130 [E*05/03/2012 HTN (hypertension) [I10] 05/29/2012 04/04/2016 Marijuana use [F12.90] 12/30/2012 Other enthesopathy of ankle and tarsus [M77.50] 02/10/2015 Peroneal tendonitis of right lower extremity [M*02/24/2015 Vertigo [R42] 10/07/2015 Visual disturbances [H53.9] 10/07/2015 Vitreous floaters of both eyes [H43.393] 10/07/2015 Essential hypertension [I10] 04/04/2016 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] 05/15/2016 Sacroiliac joint pain [M53.3] 07/13/2016 Fibromyalgia [M79.7] 09/07/2017 Convulsion, 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 Neck pain [M54.2] 11/28/2019 Upper back pain [M54.9] 11/28/2019 Bilateral shoulder pain [M25.511, M25.512] 11/28/2019 Other chest pain [R07.89] 12/15/2021 Palpitations [R00.2] 02/08/2022 GERD (gastroesophageal reflux disease) [K21.9] 02/08/2022 Elevated liver enzymes [R74.8] 02/08/2022 Internal hemorrhoid [K64.8] 02/08/2022 Liver nodule [K76.89] 03/27/2022 Acute pain of right shoulder [M25.511] 04/05/2022 07/03/2022 Adenoma of liver [D13.4] 08/20/2022 Chronic midline low back pain without sciatica *10/17/2022 01/01/2023 Chronic neck pain [M54.2, G89.29] 10/17/2022 01/01/2023 Lateral epicondylitis, right elbow [M77.11] 10/17/2022 01/01/2023 Prediabetes [R73.03] 10/27/2022 Low back pain [M54.50] 03/20/2023 Prescriptions ordered this encounter Disp Refills Start End DOXYCYCLINE HYCLATE 100 MG TABLET 14 t* 0 12/21/2023 12/28/2023 Route: ORAL Sig: Take 1 tablet by mouth two times a day for 7 days. Encounter Status:Closed by ANIYA RAMÍREZ on 12/21/23 Normal [facility] BACTERIAL VAGINOSIS NAATon 0 12-17-2023 Lactobacillus crispatus+gasseri+ jensenii + Gardnerella vaginalis + Atopobium vaginae rRNA DANA+probe Ql (Vag fld) Negative Normal Negative for bacterial vaginosis [facility] Comment on above: Order Comment: Speci men Type: SWABOrdering Facility: [facility] Address: [address] [place] [address] Performed By: #### Joey CORTES, [id number] ####[facility] LABCLIA [id number] [place] [address] [place] Bacteria Ur Culton Bacteria identified Cx Nom (U) ORGANISM ID: 1 50,000-<100,000 CFU/ml Normal urogenital maria dolores Normal [facility] Comment on above: Performed By: #### 6 30-4 ####[facility] LABCLIA [id number] [place] [address] [place] C. trachomatis+N. gonorrhoea e DNA DANA+probe Ql (Unsp spec)on 12-17-2023 C. trachomatis rRNA DANA+probe Ql (Unsp spec) Negative Normal Negative for Chlamydia trachomatis by amplificaton [facility] Comment on above: Order Comment: Speci men Type: SWABOrdering Facility: [facility] Address: [address] [place] [address] Performed By: #### B VAMP, [id number] ####[facility] LABCLIA [id number] [place] [address] [place] N. gonorrhoeae rRNA DANA+probe Ql (Unsp spec) Negative Normal Negative for Neisseria gonorrhoeae by amplification [facility] Comment on above: Order Comment: Speci men Type: SWABOrdering Facility: [facility] Address: [address] [place] [address] Performed By: #### B VAMP, 97960-3 ####[facility] LABCLIA [id number] [place] [address] [place] TIFFANY/TRICHOMONAS NAATon 0 12-17-2023 C. glabrata RNA DANA+probe Ql (Vag fld) Negative Normal Negative for Tiffany glabrata [facility] Comment on above: Order Comment: Speci men Type: SWABOrdering Facility: [facility] Address: [address] [place] [address] Performed By: #### C VTV ####[facility] LABCLIA [id number] [place] [address] [place] Tiffany sp DNA DANA+probe Ql (Vag fld) Negative Normal Negative for Tiffany species [facility] Comment on above: Order Comment: Speci men Type: SWABOrdering Facility: [facility] Address: [address] [place] [address] Performed By: #### C VTV ####[facility] LABIA [id number] [address] [place] T. vaginalis DNA DANA+probe Ql (Unsp spec) Negative Normal Negative for Trichomonas vaginalis by amplification [facility] Comment on above: Order Comment: Speci men Type: SWABOrdering Facility: [facility] Address: [address] [place] [address] Performed By: #### C VTV ####[facility] LABCLIA [id number] [address] [place] CNOVon 12-17-2023 CNOV Office Visit (OBGYWM ) INDIGO MEIER ([id number]) 1975 [address] [employer] Date Time Provider Department 12/17/23 11:15 AM ANIYA RAMÍREZ OBCONG During your visit today, we recorded the following information about you: Blood pressure Weight 110/80 75.8 kg Aniya Ramírez APRN.NEWSPAPER OR PERIODICAL EDITOR 12/17/2023 12:06 PM Signed Indigo Meier is a 48 year old female who presents for problem visit of urinary frequency, vaginal itching, and vaginal odor. HPI: Indigo was treated for a UTI at the end of November and continues to have urinary frequency. She is also experiencing itching and odor. She notices some bumps to the mons. She would like to be rescreened for STIs. OB History T0 L3 SAB0 IAB0 Ectopic0 Multiple0 Live Births0 Genetic Supervisor History LMP: 05/17/2023 (Exact Date), IUD Age at Menarche: Age at First : Age at Menopause: Genetic Supervisor History Comments: Sexual Activity: Yes; Male Contraception: Tubal Ligation, I.U.D. PAST MEDICAL HISTORY Diagnosis Date - Anxiety generalized anxiety AND panic disorder (diagnosed by PCP) - Chronic back pain mild scolosis and sciatica AND SI joint locks up; was seeing pain management, now sees PCP - GERD (gastroesophageal reflux disease) - Hemorrhoids - Hyperlipidemia 2011 - Hypertension - Marijuana use - Vertigo PAST SURGICAL HISTORY Procedure Laterality Date - ABDOMINAL SURGERY HX - BREAST REDUCTION 07/2020 - BREAST SURGERY HX - CHOLECYSTECTOMY 2009 Cholecystectomy - COLONOSCOPY 04/25/2022 repeat in 10 years - EGD W/O BRSH SPEC VARICIES INJ 04/25/2022 - HEMORROIDECTOMY INTERNAL 04/26/2022 - INSERTION OF IUD - LIG/TRNSXJ FLP TUBE ABDL/VAG APPR UNI/BI Tubal ligation - SHX COSMETIC SURGERY FAMILY HISTORY Problem Relation Age of Onset - Hypertension Mother - Hyperlipidemia Mother - None Father - other (Other) Father MVA - heart attack - Diabetes Brother - Hyperlipidemia Brother - Heart Brother - Asthma Son - Allergies Son - Allergies Son - Cancer Sister 41 cervical, ?lymph - Diabetes Sister - Heart Brother CAD-quadruple bypass, age 46 - Heart Brother CAD stent placement Social History Tobacco Use - Smoking status: Never - Smokeless tobacco: Never Vaping Use - Vaping Use: Never used Substance Use Topics - Alcohol use: No - Drug use: Yes Types: Marijuana Comment: yolanda Current Outpatient Medications Medication Sig - polyethylene glycol 3350 (MIRALAX) 17 gram/dose powder 17 g (~1 heaping tablespoon) dissolved in 120 to 240 mL (4 to 8 ounces) of beverage, once daily. - ondansetron orally disintegrating (ZOFRAN ODT) 4 mg disintegrating tablet Take 1 tablet by mouth every 6 hours as needed for nausea/vomiting. - Omeprazole Magnesium (PRILOSEC OTC) 20 mg tablet Take 1 tablet by mouth once daily. - fluticasone (FLONASE) 50 mcg/actuation nasal spray Use 2 Sprays in each nostril once daily. Rinse mouth after use. - lisinopril (ZESTRIL) 10 mg tablet Take 1 tablet by mouth once daily. - albuterol HFA (PROVENTIL HFA, VENTOLIN HFA) 90 mcg/actuation inhaler Inhale 2 Puffs as instructed every 6 hours as needed for wheezing/shortness of breath. - cyclobenzaprine (FLEXERIL) 10 mg tablet Take 1 tablet by mouth three times a day as needed for muscle spasm. - metoprolol tartrate, short acting, (LOPRESSOR) 50 mg tablet Take 1 tablet by mouth twice daily. - simvastatin (ZOCOR) 10 mg tablet Take 1 tablet by mouth once daily. - Lactobacillus acidophilus (FLORAJEN ACIDOPHILUS) 20 billion cell cap Take 1 capsule by mouth once daily. - levonorgestrel (MIRENA) 20 mcg/24 hours (5 yrs) 52 mg IUD 1 Each by INTRAUTERINE route as directed. - Cholecalciferol, Vitamin D3, 1,000 unit cap Take 1 capsule by mouth once daily. No current facility-administered medications for this visit. Allergies As of Date: 12/17/2023 Allergen Noted Reaction HOUSE DUST 08/12/2020 Cough MAPLE FLAVOR 08/12/2020 Swelling METRONIDAZOLE 09/14/2022 GI Upset SEASONAL ALLERGIES 04/09/2019 Shortness of Breath Fully Assessed 12/10/2023 REVIEW OF SYSTEMS Bladder: No dysuria, gross hematuria, urinary urgency, or incontinence. 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 ARCHITECTURAL: + vaginal odor, vaginal itching Allergies and current medication updated:Yes EXAM: BP 110/80 Wt 167 lb (75.8kg) LMP 05/17/2023 GENERAL: pleasant, female in no apparent distress CHEST: Normal inspiratory effort PELVIC: external genitalia normal, normal Bartholin's glands, urethra, [place]'s glands, no vulvar lesions, no cervical lesions, good vaginal support, physiologic discharge present, normal appearing perineal body and perianal region + folliculitis to mons pubis BIMANUAL: uterus normal size, shape and consistency, no adnexal masses, and non-tender NEURO: alert and oriented x3,exam grossly non-focal EXTREMITIES: normal ASSESSMENT AND PLAN: 1. Vaginal odor (more content not included)... Normal [facility] UROGENITAL UREAPLASMA AND MY COPLASMA SPECIES BY PCR, FOR GENITAL, RECTAL, URINE SAMPLESon 12-17-2023 M GENITALIUM PCR Not detected Normal [facility] Comment on above: Order Comment: Speci men Type: SWABOrdering Facility: [facility] Address: [address] [place] [address] Result Comment: INTE RPRETIVE INFORMATION: Urogenital Ureaplasma and Mycoplasma Species by PCR A negative result does not rule out the presence of PCR inhibitors in the patient specimen or test-specific nucleic acid in concentrations below the level of detection by this test. This test was developed and its performance characteristics determined by [employer]. It has not been cleared or approved by the [place] Food and Drug Administration. This test was performed in a CLIA certified laboratory and is intended for clinical purposes. Performed By: [facility] [address] [place] [address] Beam Builder: Davide Montenegro MD, PhD IA Number: [id number] Performed By: #### U RMPCR ####[facility] [id number] [place] [address] MYCOPLAS HOMINIS PCR Not detected Normal [facility] Comment on above: Order Comment: Speci men Type: SWABOrdering Facility: [facility] Address: [address] [place] [address] Performed By: #### U RMPCR ####[facility] [id number] [place] [address] UR PARVUM PCR Detected Abnormal [facility] Comment on above: Order Comment: Speci men Type: SWABOrdering Facility: [facility] Address: [address] [place] [address] Performed By: #### U RMPCR ####[facility] [id number] [place] [address] UR UREALYTICUM PCR Detected Abnormal [facility] Comment on above: Order Comment: Speci men Type: SWABOrdering Facility: [facility] Address: [address] [place] [address] Performed By: #### U RMPCR ####[facility] [id number] [place] [address] UR/MYCO SOURCE Genital Normal [facility] Comment on above: Order Comment: Speci men Type: SWABOrdering Facility: [facility] Address: [address] [place] [address] Performed By: #### U RMPCR ####[facility] [id number] [place] [address] CNOVon 03-08-2024 CNOV Office Visit (UCWSTR ) INDIGO MEIER ([id number]) 1975 F [facility]* Date Time Provider Department 12/07/23 9:00 AM JESSICA HUTCHISON WSTR During your visit today, we recorded the following information about you: Temperature Pulse Respiration Blood pressure 97.3 degrees 62/minute 18/minute 134/90 Weight 76 kg Jessica Hutchison APRN.NEWSPAPER OR PERIODICAL EDITOR 12/07/2023 10:06 AM Signed Subjective Constipation Associated symptoms include abdominal pain. Indigo Meier is a 48 year old female who [...] pain. BP 134/90 Pulse 62 Temp 36.3 ?C (97.3 ?F) Resp 18 Wt 76 kg (167 lb 8.8 oz) LMP 05/17/2023 (Exact Date) SpO2 99% BMI 29.68 kg/m? PAST MEDICAL HISTORY Diagnosis Date Anxiety generalized anxiety AND panic disorder (diagnosed by PCP) Chronic back [...] There is a non-obstructed bowel gas pattern. Moderat (more content not included)... Normal [facility] XR ABDOMEN 1V SUPINEon 12-06 XR ABDOMEN 1V SUPINE * * *Final Report* * * DATE OF EXAM: Dec 07 2023 9:24AM WOX [id number] - XR ABDOMEN 1V SUPINE / PROCEDURE REASON: Acute constipation * * * * Physician Interpretation * * * * Indication: Constipation Comparison: None 3 x-rays of the abdomen are obtained. There is a non-obstructed bowel gas pattern. Moderate fecal material in the colon. There is no hepatomegaly or splenomegaly. No abnormal calcifications are visualized. There are no acute osseous abnormalities. IUD in the pelvis. IMPRESSION: NO ACUTE ABDOMINAL PATHOLOGY VISUALIZED Linen Room Supervisor: EVELINE Transcribe Date/Time: Dec 07 2023 9:29A Dictated by : ADRY CROWLEY MD This examination was interpreted and the report reviewed and electronically signed by: ADRY CROWLEY MD on Dec 07 2023 9:32AM EST [id number] Normal [facility] XR Abdomen Supine and Uprigh ton 12-07-2023 IMPRESSION: NO ACUTE ABDOMINAL PATHOLOGY VISUALIZED Linen Room Supervisor: EVELINE Transcribe Date/Time: Dec 07 2023 9:29A Dictated by : ADRY CROWLEY MD This examination was interpreted and the report reviewed and electronically signed by: ADRY CROWLEY MD on Dec 07 2023 9:32AM EST DIVISION OF RADIOLOGY * * *Final Report* * * DATE OF EXAM: Dec 07 2023 9:24AM WOX [id number] - XR ABDOMEN 1V SUPINE / PROCEDURE REASON: Acute constipation * * * * Physician Interpretation * * * * Indication: Constipation Comparison: None 3 x-rays of the abdomen are obtained. There is a non-obstructed bowel gas pattern. Moderate fecal material in the colon. There is no hepatomegaly or splenomegaly. No abnormal calcifications are visualized. There are no acute osseous abnormalities. IUD in the pelvis. DIVISION OF RADIOLOGY Provider, [facility] Katty Bronson [facility] - 12/07/2023 * * *Final Report* * * DATE OF EXAM: Dec 07 2023 9:24AM WOX [id number] - XR ABDOMEN 1V SUPINE / PROCEDURE REASON: Acute constipation * * * * Physician Interpretation * * * * Indication: Constipation Comparison: None 3 x-rays of the abdomen are obtained. There is a non-obstructed bowel gas pattern. Moderate fecal material in the colon. There is no hepatomegaly or splenomegaly. No abnormal calcifications are visualized. There are no acute osseous abnormalities. IUD in the pelvis. IMPRESSION IMPRESSION: NO ACUTE ABDOMINAL PATHOLOGY VISUALIZED Linen Room Supervisor: [facility] Transcribe Date/Time: Dec 07 2023 9:29A Dictated by : ADRY CROWLEY MD This examination was interpreted and the report reviewed and electronically signed by: ADRY CROWLEY MD on Dec 07 2023 9:32AM EST [facility] Radiology Study observation (narrative) [facility] XR Abdomen Supine and Uprigh tOrdered By: [facility] Provider on 12-07-2023 [facility] CNCOon 11-30-2023 CNCO Letter Text Normal [facility] CNPNon 11-30-2023 [facility] IN[facility]O [facility]IER ([id number]) 1975 [employer]* Date Time Provider Department 11/30/23 [facility] During your visit today, we recorded the following information about you: Alessia Miguel RN 11/30/2023 3:15 PM Signed Patient calls and states that she was diagnosed with UTI in [facility] care on 11/28/2023. Patient reports that today she had to leave work due to UTI symptoms. Patient asking if a letter can be written for work to say that she was diagnosed with UTI and that is the reason why she had to leave work? Please review and advise, Alessia Miguel RN Allergies As of Date: 11/30/2023 Noted Allergy Reaction HOUSE DUST 08/12/2020 3 - Cough MAPLE FLAVOR 08/12/2020 7 - Swelling METRONIDAZOLE 09/14/2022 8 - GI Upset SEASONAL ALLERGIES 04/09/2019 12 - Shortness of Breath Date Reviewed: 11/28/2023 Reviewed by: Emily Castellanos MA - Fully Assessed Reason for Visit: Patient Question [2267] Prescriptions as of 12/07/2023 - ondansetron orally disintegrating (ZOFRAN ODT) 4 mg disintegrating tablet Take 1 tablet by mouth every 6 hours as needed for nausea/vomiting. - Omeprazole Magnesium (PRILOSEC OTC) 20 mg tablet Take 1 tablet by mouth once daily. - fluticasone (FLONASE) 50 mcg/actuation nasal spray Use 2 Sprays in each nostril once daily. Rinse mouth after use. - lisinopril (ZESTRIL) 10 mg tablet Take 1 tablet by mouth once daily. - albuterol HFA (PROVENTIL HFA, VENTOLIN HFA) 90 mcg/actuation inhaler Inhale 2 Puffs as instructed every 6 hours as needed for wheezing/shortness of breath. - cyclobenzaprine (FLEXERIL) 10 mg tablet Take 1 tablet by mouth three times a day as needed for muscle spasm. - metoprolol tartrate, short acting, (LOPRESSOR) 50 mg tablet Take 1 tablet by mouth twice daily. - simvastatin (ZOCOR) 10 mg tablet Take 1 tablet by mouth once daily. - Lactobacillus acidophilus (FLORAJEN ACIDOPHILUS) 20 billion cell cap Take 1 capsule by mouth once daily. - levonorgestrel (MIRENA) 20 mcg/24 hours (5 yrs) 52 mg IUD 1 Each by INTRAUTERINE route as directed. - Cholecalciferol, Vitamin D3, 1,000 unit cap Take 1 capsule by mouth once daily. Problem List As Of Date 11/30/2023 Noted Resolved Anxiety state [F41.1] 07/25/2005 Other acne [L70.8] 07/25/2005 Pain in joint, lower leg [M25.569] 02/21/2012 Backache, unspecified [M54.9] 04/26/2012 Hyperlipidemia with target LDL less than 130 [E*05/03/2012 HTN (hypertension) [I10] 05/29/2012 04/04/2016 Marijuana use [F12.90] 12/30/2012 Other enthesopathy of ankle and tarsus [M77.50] 02/10/2015 Peroneal tendonitis of right lower extremity [M*02/24/2015 Vertigo [R42] 10/07/2015 Visual disturbances [H53.9] 10/07/2015 Vitreous floaters of both eyes [H43.393] 10/07/2015 Essential hypertension [I10] 04/04/2016 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] 05/15/2016 Sacroiliac joint pain [M53.3] 07/13/2016 Fibromyalgia [M79.7] 09/07/2017 Convulsion, 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 Neck pain [M54.2] 11/28/2019 Upper back pain [M54.9] 11/28/2019 Bilateral shoulder pain [M25.511, M25.512] 11/28/2019 Other chest pain [R07.89] 12/15/2021 Palpitations [R00.2] 02/08/2022 GERD (gastroesophageal reflux disease) [K21.9] 02/08/2022 Elevated liver enzymes [R74.8] 02/08/2022 Internal hemorrhoid [K64.8] 02/08/2022 Liver nodule [K76.89] 03/27/2022 Acute pain of right shoulder [M25.511] 04/05/2022 07/03/2022 Adenoma of liver [D13.4] 08/20/2022 Chronic midline low back pain without sciatica *10/17/2022 01/01/2023 Chronic neck pain [M54.2, G89.29] 10/17/2022 01/01/2023 Lateral epicondylitis, right elbow [M77.11] 10/17/2022 01/01/2023 Prediabetes [R73.03] 10/27/2022 Low back pain [M54.50] 03/20/2023 Encounter Status:Closed by ALESSIA MIGUEL on 12/07/23 Normal [facility] BACTERIAL VAGINOSIS NAATon 0 11-28-2023 Lactobacillus crispatus+gasseri+ jensenii + Gardnerella vaginalis + Atopobium vaginae rRNA DANA+probe Ql (Vag fld) Negative Normal Negative for bacterial vaginosis [facility] Comment on above: Order Comment: Speci men Type: SWABOrdering Facility: [facility] Address: [address] [place] [address] Performed By: #### Joey CORTES, 92512-3 ####[facility] LABCLIA [id number] [place] [address] [place] Bacteria Ur Culton Bacteria identified Cx Nom (U) ORGANISM ID: 1 50,000-<100,000 CFU/ml Escherichia coli ORGANISM ID: 1 (ESCHERICHIA COLI) --------- ANTIBIOTIC INTERPRETATION MUNIRA STATUS REFERENCE RANGE --------- Ampicillin S <=2 F Susceptible <=8 , Intermediate >8 , Resistant >16 Cefazolin S <=4 F Susceptible 0-16 , Intermediate <0 or >16 , Resistant >16 For uncomplicated urinary tract infections, cefazolin results can be used to predict susceptibility or resistance to cephalexin. Ceftriaxone S <=1 F Susceptible <=1 , Intermediate >1 , Resistant >=4 Cefepime S <=1 F Susceptible <=2 , Susceptible-Dose Dependent >2 , Resistant >=16 Ertapenem S <=0.5 F Susceptible <=0.5 , Intermediate >.5 , Resistant >1 Meropenem S <=0.25 F Susceptible <=1 , Intermediate >1 , Resistant >2 Ampicillin/Sulbact S <=2 F Susceptible <=8 , Intermediate >8 , Resistant >16 Piperacillin/Tazobac S <=4 F Susceptible <=16 , Intermediate >16 , Resistant >64 Gentamicin S <=1 F Susceptible <=4 , Intermediate >4 , Resistant >8 Tobramycin S <=1 F Susceptible <=4 , Intermediate >4 , Resistant >8 Trimeth sulfameth S <=20 F Susceptible <=40 , Resistant >40 Ciprofloxacin S <=0.25 F Susceptible <0.5 , Intermediate >=.5 , Resistant >=1 Nitrofurantoin S <=16 F Susceptible <=32 , Intermediate >32 , Resistant >64 Abnormal [facility] Comment on above: Performed By: #### 6 30-4 ####[facility] [id number] [place] [address] [place] C. trachomatis+N. gonorrhoea e DNA DANA+probe Ql (Unsp spec)on 11-28-2023 C. trachomatis rRNA DANA+probe Ql (Unsp spec) Negative Normal Negative for Chlamydia trachomatis by amplificaton [facility] Comment on above: Order Comment: Speci men Type: SWABOrdering Facility: [facility] Address: [address] [place] [address] Performed By: #### B VAMP, 77824-6 ####[facility] LABIA [id number] [place] [address] [place] N. gonorrhoeae rRNA DANA+probe Ql (Unsp spec) Negative Normal Negative for Neisseria gonorrhoeae by amplification [facility] Comment on above: Order Comment: Speci men Type: SWABOrdering Facility: [facility] Address: [address] [place] [address] Performed By: #### Joey CORTES, [id number] ####[facility] LABCLIA [id number] [place] [address] [place] TIFFANY/TRICHOMONAS NAATon 0 11-28-2023 C. glabrata RNA DANA+probe Ql (Vag fld) Negative Normal Negative for Tiffany glabrata [facility] Comment on above: Order Comment: Speci men Type: SWABOrdering Facility: [facility] Address: [address] [place] [address] Performed By: #### C VTV ####[facility] LABIA [id number] [address] [place] Tiffany sp DNA DANA+probe Ql (Vag fld) Negative Normal Negative for Tiffany species [facility] Comment on above: Order Comment: Speci men Type: SWABOrdering Facility: [facility] Address: [address] [place] [address] Performed By: #### C VTV ####[facility] LABCLIA [id number] [address] [place] T. vaginalis DNA DANA+probe Ql (Unsp spec) Negative Normal Negative for Trichomonas vaginalis by amplification [facility] Comment on above: Order Comment: Speci men Type: SWABOrdering Facility: [facility] Address: [address] [place] [address] Performed By: #### C VTV ####[facility] LABIA [id number] [place] [address] [place] CNOVon 11-28-2023 CNOV Office Visit (UCWSTR ) INDIGO MEIER ([id number]) 1975 [address] [employer]* Date Time Provider Department 11/28/23 9:15 AM JESSICA DEAN [facility] During your visit today, we recorded the following information about you: Temperature Pulse Blood pressure Weight 98.1 degrees 72/minute 157/114 77.1 kg Jessica Dean PA 11/28/2023 9:29 AM Signed This note was created using Browsterriter. Subjective Indigo Meier is a 48 year old female. HPI [...] MEDICAL HISTORY Diagnosis Date Anxiety generalized anxiety AND panic disorder (diagnosed by PCP) Chronic back [...] Objective BP 157/114 Pulse 72 Temp 36.7 ?C (98.1 ?F) Wt 77.1 kg (170 lb) LMP 05/17/2023 (Exact Date) SpO2 95% BMI 30.11 kg/m? Physical Exam Vitals and nursing note reviewed. Exam conducted with a fan mail clerk present. Constitutional: General: She is not in acute distress. Appearance: Normal appearance. She is not toxic-appearing. Cardiovascular: Rate and Rhythm: Normal rate and regular rhythm. Pulmonary: Effort: Pulmonary effort is normal. Breath sounds: Normal breath sounds. Abdominal: General: Abdomen is flat. Palpations: Abdomen is soft. T (more content not included)... Normal [facility] UA DIP, URINE (POC)on 2023 BILIRUBIN UA (POCT) Negative Negative [facility] CLARITY UA (POCT) Cloudy [facility] COLOR UA (POCT) Yellow [facility] GLUCOSE UA (POCT) Negative Negative mg/dL [facility] Hemoglobin Ql (U) Large Abnormal Negative [facility] KETONE UA (POCT) Negative Negative mg/dL [facility] LEUKOCYTES UA (POCT) Moderate Abnormal Negative [facility] NITRITE UA (POCT) Negative Negative [facility] PH UA (POCT) 5.5 4.5 - 8.0 [facility] Protein Ql (U) 100 mg/dL Abnormal Negative mg/dL [facility] SPECIFIC GRAVITY UA (POCT) >=1.030 1.005 - 1.030 [facility] UROBILINOGEN UA (POCT) 0.2 E.U./dL Normal E.U./dL [facility] CNPNon 11-22-2023 [facility] INDIGO MEIER ([id number]) 1975 [employer]* Date Time Provider Department 11/22/23 Jaguar COOK [facility] During your visit today, we recorded the following information about you: Mimi Moody, JACKSON 11/22/2023 2:24 PM Signed Patient reports she is resolving a Flu B infection. Reports her nausea is still lingering. Asking if Maikol would send in script for Zofran to [facility]? Has taken this medication before with effectiveness. Script pended. Patient has Physical with Maikol Cook on 11/26 as well. Please call patient once script has been sent, or for any updates. [phone]. Jaguar Cook PA-C 11/22/2023 5:48 PM Signed The following approved medication requests have been transmitted electronically. Requested Prescriptions Signed Prescriptions Disp Refills ondansetron orally disintegrating (ZOFRAN ODT) 4 mg disintegrating tablet 10 tablet 1 Sig: Take 1 tablet by mouth every 6 hours as needed for nausea/vomiting. Authorizing Provider: Jaguar COOK PA-C Allergies As of Date: 11/22/2023 Noted Allergy Reaction HOUSE DUST 08/12/2020 3 - Cough MAPLE FLAVOR 08/12/2020 7 - Swelling METRONIDAZOLE 09/14/2022 8 - GI Upset SEASONAL ALLERGIES 04/09/2019 12 - Shortness of Breath Date Reviewed: 11/05/2023 Reviewed by: Jonah Ibrahim MD - Fully Assessed Reason for Visit: Medication Request [138] Order(s):ondansetron orally disintegrating (ZOFRAN ODT) 4 mg disintegrating tabletTake 1 tablet by mouth every 6 hours as needed for nausea/vomiting.Disp: 10 tabletRfl: 1 Prescriptions as of 11/22/2023 - ondansetron orally disintegrating (ZOFRAN ODT) 4 mg disintegrating tablet Take 1 tablet by mouth every 6 hours as needed for nausea/vomiting. - Omeprazole Magnesium (PRILOSEC OTC) 20 mg tablet Take 1 tablet by mouth once daily. - fluticasone (FLONASE) 50 mcg/actuation nasal spray Use 2 Sprays in each nostril once daily. Rinse mouth after use. - lisinopril (ZESTRIL) 10 mg tablet Take 1 tablet by mouth once daily. - albuterol HFA (PROVENTIL HFA, VENTOLIN HFA) 90 mcg/actuation inhaler Inhale 2 Puffs as instructed every 6 hours as needed for wheezing/shortness of breath. - cyclobenzaprine (FLEXERIL) 10 mg tablet Take 1 tablet by mouth three times a day as needed for muscle spasm. - metoprolol tartrate, short acting, (LOPRESSOR) 50 mg tablet Take 1 tablet by mouth twice daily. - simvastatin (ZOCOR) 10 mg tablet Take 1 tablet by mouth once daily. - Lactobacillus acidophilus (FLORAJEN ACIDOPHILUS) 20 billion cell cap Take 1 capsule by mouth once daily. - levonorgestrel (MIRENA) 20 mcg/24 hours (5 yrs) 52 mg IUD 1 Each by INTRAUTERINE route as directed. - Cholecalciferol, Vitamin D3, 1,000 unit cap Take 1 capsule by mouth once daily. Problem List As Of Date 11/22/2023 Noted Resolved Anxiety state [F41.1] 07/25/2005 Other acne [L70.8] 07/25/2005 Pain in joint, lower leg [M25.569] 02/21/2012 Backache, unspecified [M54.9] 04/26/2012 Hyperlipidemia with target LDL less than 130 [E*05/03/2012 HTN (hypertension) [I10] 05/29/2012 04/04/2016 Marijuana use [F12.90] 12/30/2012 Other enthesopathy of ankle and tarsus [M77.50] 02/10/2015 Peroneal tendonitis of right lower extremity [M*02/24/2015 Vertigo [R42] 10/07/2015 Visual disturbances [H53.9] 10/07/2015 Vitreous floaters of both eyes [H43.393] 10/07/2015 Essential hypertension [I10] 04/04/2016 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] 05/15/2016 Sacroiliac joint pain [M53.3] 07/13/2016 Fibromyalgia [M79.7] 09/07/2017 Convulsion, 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 Neck pain [M54.2] 11/28/2019 Upper back pain [M54.9] 11/28/2019 Bilateral shoulder pain [M25.511, M25.512] 11/28/2019 Other chest pain [R07.89] 12/15/2021 Palpitations [R00.2] 02/08/2022 GERD (gastroesophageal reflux disease) [K21.9] 02/08/2022 Elevated liver enzymes [R74.8] 02/08/2022 Internal hemorrhoid [K64.8] 02/08/2022 Liver nodule [K76.89] 03/27/2022 Acute pain of right shoulder [M25.511] 04/05/2022 07/03/2022 Adenoma of liver [D13.4] 08/20/2022 Chronic midline low back pain without sciatica *10/17/2022 01/01/2023 Chronic neck pain [M54.2, G89.29] 10/17/2022 01/01/2023 Lateral epicondylitis, right elbow [M77.11] 10/17/2022 01/01/2023 Prediabetes [R73.03] 10/27/2022 Low back pain [M54.50] 03/20/2023 Prescriptions ordered this encounter Disp Refills Start End ONDANSETRON 4 MG DISINTEGRATING TABL* 10 t* 1 11/22/2023 Route: ORAL Sig: Take 1 tablet by mouth every 6 hours as needed for nausea/vomiting. Medications Discontinued During This Encounter Prescriptions - oxybutynin XL (DITROPAN XL) 5 mg 24 hr tablet (Discontinued) Take 1 tablet by mouth once daily. - nystatin-triamcinolone (MYCOLOG) ointment (Discontinued) Apply sparingly to perineum twice daily for irritation/infection. (more content not included)... Normal [facility] CNCMarci 11-20-2023 CNCO Letter Text Normal [facility] CNPCharlotte 11-16-2023 [facility] Telephone ([facility]) INDIGO MEIER ([id number]) 1975 [employer]* Date Time Provider Department 11/16/23 JONAH IBRAHIM During your visit today, we recorded the following information about you: Indigo Hutchinson Ma 11/16/2023 1:24 PM Signed Patient called in asking for a letter for [employer] stating that she is under this office's care for left shoulder pain, has difficulty doing most activities and has been receiving cortisone injections. Per patient we can put letter in [employer]. Ok for letter? Agnieszka Villagomez PA-C 11/20/2023 8:33 AM Signed Ok for letter. Jasper Luis Felipe Indigo Montesinos 11/20/2023 9:15 AM Signed Letter completed and sent in [employer] as requested. Allergies As of Date: 11/16/2023 Noted Allergy Reaction HOUSE DUST 08/12/2020 3 - Cough MAPLE FLAVOR 08/12/2020 7 - Swelling METRONIDAZOLE 09/14/2022 8 - GI Upset SEASONAL ALLERGIES 04/09/2019 12 - Shortness of Breath Date Reviewed: 11/05/2023 Reviewed by: Jonah Ibrahim MD - Fully Assessed Reason for Visit: Patient Question [4107] Prescriptions as of 11/20/2023 - Omeprazole Magnesium (PRILOSEC OTC) 20 mg tablet Take 1 tablet by mouth once daily. - oxybutynin XL (DITROPAN XL) 5 mg 24 hr tablet Take 1 tablet by mouth once daily. - fluticasone (FLONASE) 50 mcg/actuation nasal spray Use 2 Sprays in each nostril once daily. Rinse mouth after use. - lisinopril (ZESTRIL) 10 mg tablet Take 1 tablet by mouth once daily. - albuterol HFA (PROVENTIL HFA, VENTOLIN HFA) 90 mcg/actuation inhaler Inhale 2 Puffs as instructed every 6 hours as needed for wheezing/shortness of breath. - nystatin-triamcinolone (MYCOLOG) ointment Apply sparingly to perineum twice daily for irritation/infection. - cyclobenzaprine (FLEXERIL) 10 mg tablet Take 1 tablet by mouth three times a day as needed for muscle spasm. - metoprolol tartrate, short acting, (LOPRESSOR) 50 mg tablet Take 1 tablet by mouth twice daily. - simvastatin (ZOCOR) 10 mg tablet Take 1 tablet by mouth once daily. - Lactobacillus acidophilus (FLORAJEN ACIDOPHILUS) 20 billion cell cap Take 1 capsule by mouth once daily. - levonorgestrel (MIRENA) 20 mcg/24 hours (5 yrs) 52 mg IUD 1 Each by INTRAUTERINE route as directed. - Cholecalciferol, Vitamin D3, 1,000 unit cap Take 1 capsule by mouth once daily. Problem List As Of Date 11/16/2023 Noted Resolved Anxiety state [F41.1] 07/25/2005 Other acne [L70.8] 07/25/2005 Pain in joint, lower leg [M25.569] 02/21/2012 Backache, unspecified [M54.9] 04/26/2012 Hyperlipidemia with target LDL less than 130 [E*05/03/2012 HTN (hypertension) [I10] 05/29/2012 04/04/2016 Marijuana use [F12.90] 12/30/2012 Other enthesopathy of ankle and tarsus [M77.50] 02/10/2015 Peroneal tendonitis of right lower extremity [M*02/24/2015 Vertigo [R42] 10/07/2015 Visual disturbances [H53.9] 10/07/2015 Vitreous floaters of both eyes [H43.393] 10/07/2015 Essential hypertension [I10] 04/04/2016 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] 05/15/2016 Sacroiliac joint pain [M53.3] 07/13/2016 Fibromyalgia [M79.7] 09/07/2017 Convulsion, 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 Neck pain [M54.2] 11/28/2019 Upper back pain [M54.9] 11/28/2019 Bilateral shoulder pain [M25.511, M25.512] 11/28/2019 Other chest pain [R07.89] 12/15/2021 Palpitations [R00.2] 02/08/2022 GERD (gastroesophageal reflux disease) [K21.9] 02/08/2022 Elevated liver enzymes [R74.8] 02/08/2022 Internal hemorrhoid [K64.8] 02/08/2022 Liver nodule [K76.89] 03/27/2022 Acute pain of right shoulder [M25.511] 04/05/2022 07/03/2022 Adenoma of liver [D13.4] 08/20/2022 Chronic midline low back pain without sciatica *10/17/2022 01/01/2023 Chronic neck pain [M54.2, G89.29] 10/17/2022 01/01/2023 Lateral epicondylitis, right elbow [M77.11] 10/17/2022 01/01/2023 Prediabetes [R73.03] 10/27/2022 Low back pain [M54.50] 03/20/2023 Encounter Status:Closed by INDIGO HUTCHINSON MA on 11/20/23 [facility] CNOVon 11-05-2023 CNOV Office Visit (ORTHWS ) INDIGO MEIER ([id number]) 1975 F [facility]* Date Time Provider Department 11/05/23 1:45 PM JONAH IBRAHIM During your visit today, we recorded the following information about you: Jonah Ibrahim MD 11/05/2023 2:00 PM Signed Jonah Ibrahim MD Department of Orthopaedics Orthopaedics [address] [facility] [address] Dept: [phone] Dept November 05, 2023 CHIEF COMPLAINT: Follow Up and Pain of the Left Shoulder HPI AMB ROOMING INTAKE FLOWSHEET DATA Pain Pain Level: 7 Pain Location: Shoulder-Right Description: Tightness Duration Amount of Time: 9 Duration Units: Months Frequency: Intermittent Intervention/Comfort measure: Medication, Relaxation, Reposition Patient presents with: Left Shoulder - Follow Up, Pain Patient presents for follow up of L shoulder pain. Was given Voltaren gel and it did not offer much relief. Would like to try a cortisone injection today. ASSESSMENT: M25.512, G89.29 Chronic left shoulder pain (primary encounter diagnosis) M25.819 Shoulder impingement PLAN: She is still describing some pain across the front of the clavicle, however her focal exam today is suggestive of some impingement. Will try cortisone injection and see how things go. I may consider an MRI if symptoms do not improve. Ms. Indigo Meier was advised as to contrast therapies and/or to take analgesics/anti-inflammator ies as needed and all contraindications were reviewed. OBJECTIVE: Ms. Indigo Meier is a pleasant 47 year old in no apparent distress. Gen:LMP 05/17/2023 nl development, non obese, no deformities ENT: Normocephalic, normal hearing, moist mucosa CV: Pulses:Radial= 2+ and symmetric, capillary refill < 2 secs, no peripheral edema/varicosities Skin: no rash, bruising or lesions. Good turgor. Psych: cooperative and appropriate, alert and oriented x 3, good mood and affect. Musculoskeletal: Tender to palpation over the greater. Positive impingement signs. Large Joint Arthro/Inj: L subacromial bursa Informed Consent Consent Obtained: Verbal [place] Protocol A moment to CARE was completed. SIGN IN Sign in communication not applicable due to emergent procedure. Personnel directly involved with the procedure wore the appropriate PPE. Special Equipment: N/A Patient/Surrogate Stated/Verified: Patient name, Date of , Relevant allergies and Intended procedure TIME OUT Intended patient and procedure match the source document(s). Consent documented and matches the intended procedure. Relevant labs, photos, and/or imaging studies have been reviewed. Correct side/site marked and visible. Medications required for procedure verified. No fire risk assessment and interventions applicable. No implant(s) inserted. 11/05/2023 1:59 PM The procedure site was prepped in the usual sterile fashion. Site: L subacromial bursa Medications: 6 mg betamethasone acetate-betamethasone sodium phosphate 6 mg/mL Anesthetics: 4 mL lidocaine (PF) 10 mg/mL (1 %) Outcome: Tolerated well, no immediate complications Post-injection instructions were reviewed with the patient and the patient voiced understanding of these instructions. SIGN OUT No instruments, equipment or retained foreign bodies applicable. Supporting Subjective Information Below: Past Surgical History: PAST SURGICAL HISTORY Procedure Laterality Date ABDOMINAL SURGERY HX BREAST REDUCTION 07/2020 BREAST SURGERY HX CHOLECYSTECTOMY 2009 Cholecystectomy COLONOSCOPY 04/25/2022 repeat in 10 years EGD W/O [facility] SPEC VARICIES INJ 04/25/2022 HEMORROIDECTOMY INTERNAL 04/26/2022 INSERTION OF IUD LIG/TRNSXJ FLP TUBE ABDL/VAG APPR UNI/BI Tubal ligation SHX COSMETIC SURGERY Medications: Current Outpatient Medications Medication Sig Omeprazole Magnesium [...] XL (DITROPAN XL) 5 mg 24 hr tabl (more content not included)... Normal [facility] 10-26-2023 [facility] Telephone ([facility]) INDIGO MEIER ([id number]) 1975 [address] [employer]* Date Time Provider Department 10/26/23 JESSICA DEAN [facility] During your visit today, we recorded the following information about you: Jessica Dean PA 10/26/2023 4:53 PM Signed Please call patient and let her know she is negative for Tiffany, GC/chlamydia, bacterial vaginosis. Waylon Eckert MA 10/26/2023 5:19 PM Signed Patient notified of results, verbalized understanding of instructions given to follow up with OBGYN for persistent symptoms. Waylon Eckert MA Allergies As of Date: 10/26/2023 Noted Allergy Reaction HOUSE DUST 08/12/2020 3 - Cough MAPLE FLAVOR 08/12/2020 7 - Swelling METRONIDAZOLE 09/14/2022 8 - GI Upset SEASONAL ALLERGIES 04/09/2019 12 - Shortness of Breath Date Reviewed: 10/25/2023 Reviewed by: Waylon Eckert MA - Fully Assessed Reason for Visit: Results [95] Prescriptions as of 10/26/2023 - triamcinolone (KENALOG) 0.025 % cream Apply to affected area two times a day for 7 days. - oxybutynin XL (DITROPAN XL) 5 mg 24 hr tablet Take 1 tablet by mouth once daily. - fluticasone (FLONASE) 50 mcg/actuation nasal spray Use 2 Sprays in each nostril once daily. Rinse mouth after use. - lisinopril (ZESTRIL) 10 mg tablet Take 1 tablet by mouth once daily. - albuterol HFA (PROVENTIL HFA, VENTOLIN HFA) 90 mcg/actuation inhaler Inhale 2 Puffs as instructed every 6 hours as needed for wheezing/shortness of breath. - nystatin-triamcinolone (MYCOLOG) ointment Apply sparingly to perineum twice daily for irritation/infection. - cyclobenzaprine (FLEXERIL) 10 mg tablet Take 1 tablet by mouth three times a day as needed for muscle spasm. - metoprolol tartrate, short acting, (LOPRESSOR) 50 mg tablet Take 1 tablet by mouth twice daily. - Omeprazole Magnesium (PRILOSEC OTC) 20 mg tablet Take 1 tablet by mouth once daily. - simvastatin (ZOCOR) 10 mg tablet Take 1 tablet by mouth once daily. - Lactobacillus acidophilus (FLORAJEN ACIDOPHILUS) 20 billion cell cap Take 1 capsule by mouth once daily. - levonorgestrel (MIRENA) 20 mcg/24 hours (5 yrs) 52 mg IUD 1 Each by INTRAUTERINE route as directed. - Cholecalciferol, Vitamin D3, 1,000 unit cap Take 1 capsule by mouth once daily. Problem List As Of Date 10/26/2023 Noted Resolved Anxiety state [F41.1] 07/25/2005 Other acne [L70.8] 07/25/2005 Pain in joint, lower leg [M25.569] 02/21/2012 Backache, unspecified [M54.9] 04/26/2012 Hyperlipidemia with target LDL less than 130 [E*05/03/2012 HTN (hypertension) [I10] 05/29/2012 04/04/2016 Marijuana use [F12.90] 12/30/2012 Other enthesopathy of ankle and tarsus [M77.50] 02/10/2015 Peroneal tendonitis of right lower extremity [M*02/24/2015 Vertigo [R42] 10/07/2015 Visual disturbances [H53.9] 10/07/2015 Vitreous floaters of both eyes [H43.393] 10/07/2015 Essential hypertension [I10] 04/04/2016 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] 05/15/2016 Sacroiliac joint pain [M53.3] 07/13/2016 Fibromyalgia [M79.7] 09/07/2017 Convulsion, 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 Neck pain [M54.2] 11/28/2019 Upper back pain [M54.9] 11/28/2019 Bilateral shoulder pain [M25.511, M25.512] 11/28/2019 Other chest pain [R07.89] 12/15/2021 Palpitations [R00.2] 02/08/2022 GERD (gastroesophageal reflux disease) [K21.9] 02/08/2022 Elevated liver enzymes [R74.8] 02/08/2022 Internal hemorrhoid [K64.8] 02/08/2022 Liver nodule [K76.89] 03/27/2022 Acute pain of right shoulder [M25.511] 04/05/2022 07/03/2022 Adenoma of liver [D13.4] 08/20/2022 Chronic midline low back pain without sciatica *10/17/2022 01/01/2023 Chronic neck pain [M54.2, G89.29] 10/17/2022 01/01/2023 Lateral epicondylitis, right elbow [M77.11] 10/17/2022 01/01/2023 Prediabetes [R73.03] 10/27/2022 Low back pain [M54.50] 03/20/2023 Encounter Status:Closed by WAYLON ECKERT on 10/26/23 Normal [facility] BACTERIAL VAGINOSIS NAATon 0 10-25-2023 Lactobacillus crispatus+gasseri+ jensenii + Gardnerella vaginalis + Atopobium vaginae rRNA DANA+probe Ql (Vag fld) Negative Normal Negative for bacterial vaginosis [facility] Comment on above: Order Comment: Speci men Type: SWABOrdering Facility: [facility] Address: [address] [place] [address] Performed By: #### 3 6902-5, BVAMP ####[facility] LABCLIA [id number] [place] [address] [place] Bacteria Ur Culton Bacteria identified Cx Nom (U) ORGANISM ID: 1 <10,000 CFU/ml Normal urogenital maria dolores Normal [facility] Comment on above: Performed By: #### 6 30-4 ####[facility] LABCLIA [id number] [place] [address] [place] C. trachomatis+N. gonorrhoea e DNA DANA+probe Ql (Unsp spec)on 10-25-2023 C. trachomatis rRNA DANA+probe Ql (Unsp spec) Negative Normal Negative for Chlamydia trachomatis by amplificaton [facility] Comment on above: Order Comment: Speci men Type: SWABOrdering Facility: [facility] Address: [address] [place] [address] Performed By: #### 3 6902-5, BVAMP ####[facility] LABCLIA [id number] [place] [address] [place] N. gonorrhoeae rRNA DANA+probe Ql (Unsp spec) Negative Normal Negative for Neisseria gonorrhoeae by amplification [facility] Comment on above: Order Comment: Speci men Type: SWABOrdering Facility: [facility] Address: [address] [place] [address] Performed By: #### 3 6902-5, BVAMP ####[facility] LABCLIA [id number] [place] [address] [place] TIFFANY/TRICHOMONAS NAATon 0 10-25-2023 C. glabrata RNA DANA+probe Ql (Vag fld) Negative Normal Negative for Tiffany glabrata [facility] Comment on above: Order Comment: Speci men Type: SWABOrdering Facility: [facility] Address: [address] [place] [address] Performed By: #### C VTV ####[facility] LABIA [id number] [place] [address] [place] Tiffany sp DNA DANA+probe Ql (Vag fld) Negative Normal Negative for Tiffany species [facility] Comment on above: Order Comment: Speci men Type: SWABOrdering Facility: [facility] Address: [address] [place] [address] Performed By: #### C VTV ####[facility] LABCLIA [id number] [address] [place] T. vaginalis DNA DANA+probe Ql (Unsp spec) Negative Normal Negative for Trichomonas vaginalis by amplification [facility] Comment on above: Order Comment: Speci men Type: SWABOrdering Facility: [facility] Address: [address] [place] [address] Performed By: #### C VTV ####[facility] LABCLIA [id number] [place] [address] [place] CNOVon 10-25-2023 CNOV Office Visit (UCWSTR ) INDIGO MEIER ([id number]) 1975 [address] [employer]* Date Time Provider Department 10/25/23 10:15 AM DWAIN HAWKINS During your visit today, we recorded the following information about you: Temperature Pulse Respiration Blood pressure 97.1 degrees 62/minute 18/minute 162/101 Weight 77.1 kg Dwain Hawkins APRN.NEWSPAPER OR PERIODICAL EDITOR 10/25/2023 10:51 AM Signed Subjective Patient came in with complaints of upper middle back rash that she has had for about a year. Patient says he cannot really see it but it just itches. Patient also said she is having some frequency and burning when she urinates. Patient is also worried about being exposed to an STD. Patient denies any other symptoms. The history is provided by the patient. No chinese language professor was used. Rash UTI Review of Systems Constitutional: Negative. Genitourinary: Positive for dysuria. Skin: Positive for itching and rash. Objective Physical Exam Exam conducted with a fan mail clerk present. Constitutional: Appearance: Normal appearance. Pulmonary: Effort: Pulmonary effort is normal. Genitourinary: Comments: Redness of cervix noted as well as milk discharge Skin: Comments: Non visible itching rash noted. Neurological: Mental Status: She is alert. PAST MEDICAL HISTORY Diagnosis Date Anxiety generalized anxiety AND panic disorder (diagnosed by PCP) Chronic back pain mild scolosis and sciatica AND SI joint locks up; was seeing pain management, now sees PCP GERD (gastroesophageal reflux disease) Hemorrhoids Hyperlipidemia 2011 Hypertension Marijuana use Vertigo PAST SURGICAL HISTORY Procedure Laterality Date ABDOMINAL SURGERY HX BREAST REDUCTION 07/2020 BREAST SURGERY HX CHOLECYSTECTOMY 2009 Cholecystectomy COLONOSCOPY 04/25/2022 repeat in 10 years EGD W/O [facility] SPEC VARICIES INJ 04/25/2022 HEMORROIDECTOMY INTERNAL 04/26/2022 INSERTION OF IUD LIG/TRNSXJ FLP TUBE ABDL/VAG APPR UNI/BI Tubal ligation SHX COSMETIC SURGERY ALLERGIES House Dust, Maple Flavor, Metronidazole, and Seasonal Allergies MEDICATIONS oxybutynin XL (DITROPAN XL) 5 mg 24 [...] hours as needed for wheezing/shortness of breath. nystatin-triamcinolone (MYCOLOG) ointment Apply sparingly to perineum twice daily for irritation/infection. cyclobenzaprine (FLEXERIL) 10 mg tablet Take 1 [...] Take 1 capsule by mouth once daily. triamcinolone (KENALOG) 0.025 % cream Apply to affected area two times a day for 7 days. [...] Drug use: Yes Types: Marijuana Comment: yolanda ASSESSMENT/PLAN: 1. Urinary frequency - ICD9: 788.41, ICD10: R35.0 (primary diagnosis) - UA DIP, URINE (POC) - URINE CULTURE - BACTERIAL VAGINOSIS NAAT - TIFFANY/TRICHOMONAS NAAT - GONORRHEA/CHLAMYDIA NAAT 2. Rash - ICD9: 782.1, ICD10: R21 - TRIAMCINOLONE ACETONIDE 0.025 % TOPICAL CREAM Was educated about proper use of medication and supportive therapies. If anything comes back positive please treat patient accordingly. Patient was okay with this care plan and will follow-up for dermatology. Dwain Hawkins APRN.NEWSPAPER OR PERIODICAL EDITOR Allergies As of Date: 10/25/2023 Noted Allergy Reaction HOUSE DUST 08/12/2020 3 - Cough MAPLE FLAVOR 08/12/2020 7 - Swelling METRONIDAZOLE 09/14/2022 8 - GI Upset SEASONAL ALLERGIES 04/09/2019 12 - Shortness of Breath Date Reviewed: 10/25/2023 Reviewed by: Waylon Eckert MA - Fully Assessed Reason for V (more content not included)... Normal [facility] Urinalysis complete panel (U )on 10-25-2023 BACTERIA UL 2283.5 uL High Negative [facility] Comment on above: Order Comment: Speci men Type: URINE SPECIMENOrdering Facility: [facility] Address: [address] [place] [address] Performed By: #### 2 4356-8 ####[facility] LABCLIA [id number] [place] [address] [place] Bilirubin Ql (U) Negative Normal Negative [facility] Comment on above: Order Comment: Speci men Type: URINE SPECIMENOrdering Facility: [facility] Address: [address] [place] [address] Performed By: #### 2 4356-8 ####[facility] LABCLIA [id number] [place] [address] [place] Clarity (Unsp spec) Clear Normal Clear [facility] Comment on above: Order Comment: Speci men Type: URINE SPECIMENOrdering Facility: [facility] Address: [address] [place] [address] Performed By: #### 2 4356-8 ####[facility] LABCLIA [id number] [place] [address] [place] Color (U) Yellow Normal Yellow [facility] Comment on above: Order Comment: Speci men Type: URINE SPECIMENOrdering Facility: [facility] Address: [address] [place] [address] Performed By: #### 2 4356-8 ####[facility] LABCLIA [id number] [place] [address] [place] Epithelial cells LM.HPF (Urine sed) [#/Area] Many Normal [facility] Comment on above: Order Comment: Speci men Type: URINE SPECIMENOrdering Facility: [facility] Address: [address] [place] [address] Performed By: #### 2 4356-8 ####[facility] LABCLIA [id number] [place] [address] [place] Glucose Test strip (U) [Mass/Vol] Negative Normal Negative [facility] Comment on above: Order Comment: Speci men Type: URINE SPECIMENOrdering Facility: [facility] Address: [address] [place] [address] Performed By: #### 2 4356-8 ####[facility] LABCLIA [id number] [place] [address] [place] Hemoglobin Ql (U) Negative Normal Negative [facility] Comment on above: Order Comment: Speci men Type: URINE SPECIMENOrdering Facility: [facility] Address: [address] [place] [address] Performed By: #### 2 4356-8 ####[facility] LABCLIA [id number] [place] [address] [place] Hyaline casts (Urine sed) [#/Area] 0 /[LPF] Normal 0 /LPF [facility] Comment on above: Order Comment: Speci men Type: URINE SPECIMENOrdering Facility: [facility] Address: [address] [place] [address] Performed By: #### 2 4356-8 ####[facility] LABCLIA [id number] [place] [address] [place] Ketones Ql (U) Negative Normal Negative [facility] Comment on above: Order Comment: Speci men Type: URINE SPECIMENOrdering Facility: [facility] Address: [address] [place] [address] Performed By: #### 2 4356-8 ####[facility] LABCLIA [id number] [place] [address] [place] Leukocyte esterase Test strip Ql (U) Negative Normal Negative [facility] Comment on above: Order Comment: Speci men Type: URINE SPECIMENOrdering Facility: [facility] Address: [address] [place] [address] Performed By: #### 2 4356-8 ####[facility] LABCLIA [id number] [place] [address] [place] Nitrite Ql (U) Negative Normal Negative [facility] Comment on above: Order Comment: Speci men Type: URINE SPECIMENOrdering Facility: [facility] Address: [address] [place] [address] Performed By: #### 2 4356-8 ####[facility] LABCLIA [id number] [place] [address] [place] pH (U) 6.0 [pH] Normal <8.5 [facility] Comment on above: Order Comment: Speci men Type: URINE SPECIMENOrdering Facility: [facility] Address: [address] [place] [address] Performed By: #### 2 4356-8 ####[facility] LABCLIA [id number] [place] [address] [place] Protein (U) [Mass/Vol] Negative Normal Negative [facility] Comment on above: Order Comment: Speci men Type: URINE SPECIMENOrdering Facility: [facility] Address: [address] [place] [address] Performed By: #### 2 4356-8 ####[facility] LABCLIA [id number] [place] [address] [place] RBC LM.HPF (Urine sed) [#/Area] 0-2 /HPF Normal 0-2 /HPF [facility] Comment on above: Order Comment: Speci men Type: URINE SPECIMENOrdering Facility: [facility] Address: [address] [place] [address] Performed By: #### 2 4356-8 ####[facility] [id number] [place] [address] [place] Specific gravity (U) [Rel density] 1.026 Normal 1.005-1.030 [facility] Comment on above: Order Comment: Speci men Type: URINE SPECIMENOrdering Facility: [facility] Address: [address] [place] [address] Performed By: #### 2 4356-8 ####[facility] [id number] [address] [place] [facility] Urobilinogen Ql (U) 1.0 EU/dL Normal 0.2-1.0 EU/dL [facility] Comment on above: Order Comment: Speci men Type: URINE SPECIMENOrdering Facility: [facility] Address: [address] [place] [address] Performed By: #### 2 4356-8 ####[facility] [id number] [place] [address] [place] WBC LM.HPF (Urine sed) [#/Area] 0-5 /HPF Normal 0-5 /HPF [facility] Comment on above: Order Comment: Speci men Type: URINE SPECIMENOrdering Facility: [facility] Address: [address] [place] [address] Performed By: #### 2 4356-8 ####[facility] [id number] [address] [place] Gualberto 10-10-2023 ROD[facility] Telephone (OBGYWM) INDIGO MEIER ([id number]) 1975 Sandra Shank[facility] Co* Date Time Provider Department 10/10/23 NOHELIA TAYLOR During your visit today, we recorded the following information about you: Monique Rosa RN 10/10/2023 11:27 AM Signed Patient takes her last dose of Flagyl for +Trichomonas. Patient is wanting an appointment for ROSEMARIE. What is the time frame for patient to be scheduled? Thank you. JACKSON Burrell Renee, APRN.RIZWAN 10/10/2023 11:57 AM Signed At least 8 wks. Nohelia Taylor APRN.Lizeth Byrd RN 10/10/2023 12:06 PM Signed Left message to call office. JACKSON Kimball Jennifer, RN 10/10/2023 12:12 PM Signed Patient notified. Monique Rosa RN Allergies As of Date: 10/10/2023 Noted Allergy Reaction HOUSE DUST 08/12/2020 3 - Cough MAPLE FLAVOR 08/12/2020 7 - Swelling METRONIDAZOLE 09/14/2022 8 - GI Upset SEASONAL ALLERGIES 04/09/2019 12 - Shortness of Breath Date Reviewed: 10/03/2023 Reviewed by: Jasmin Uribe - Fully Assessed Reason for Visit: Patient Question [8977] Prescriptions as of 10/10/2023 - oxybutynin XL (DITROPAN XL) 5 mg 24 hr tablet Take 1 tablet by mouth once daily. - fluticasone (FLONASE) 50 mcg/actuation nasal spray Use 2 Sprays in each nostril once daily. Rinse mouth after use. - metroNIDAZOLE (FLAGYL) 500 mg tablet Take 1 tablet by mouth two times a day for 7 days. - lisinopril (ZESTRIL) 10 mg tablet Take 1 tablet by mouth once daily. - albuterol HFA (PROVENTIL HFA, VENTOLIN HFA) 90 mcg/actuation inhaler Inhale 2 Puffs as instructed every 6 hours as needed for wheezing/shortness of breath. - nystatin-triamcinolone (MYCOLOG) ointment Apply sparingly to perineum twice daily for irritation/infection. - cyclobenzaprine (FLEXERIL) 10 mg tablet Take 1 tablet by mouth three times a day as needed for muscle spasm. - metoprolol tartrate, short acting, (LOPRESSOR) 50 mg tablet Take 1 tablet by mouth twice daily. - Omeprazole Magnesium (PRILOSEC OTC) 20 mg tablet Take 1 tablet by mouth once daily. - simvastatin (ZOCOR) 10 mg tablet Take 1 tablet by mouth once daily. - cyclobenzaprine (FLEXERIL) 10 mg tablet Take 1 tablet by mouth three times daily as needed. - Lactobacillus acidophilus (FLORAJEN ACIDOPHILUS) 20 billion cell cap Take 1 capsule by mouth once daily. - levonorgestrel (MIRENA) 20 mcg/24 hours (5 yrs) 52 mg IUD 1 Each by INTRAUTERINE route as directed. - Cholecalciferol, Vitamin D3, 1,000 unit cap Take 1 capsule by mouth once daily. Meds Comments as of 03/18/2023: 03/18/23 Started Doxycycline on 03/15/23 for 5 days. Maddie James RN Problem List As Of Date 10/10/2023 Noted Resolved Anxiety state [F41.1] 07/25/2005 Other acne [L70.8] 07/25/2005 Pain in joint, lower leg [M25.569] 02/21/2012 Backache, unspecified [M54.9] 04/26/2012 Hyperlipidemia with target LDL less than 130 [E*05/03/2012 HTN (hypertension) [I10] 05/29/2012 04/04/2016 Marijuana use [F12.90] 12/30/2012 Other enthesopathy of ankle and tarsus [M77.50] 02/10/2015 Peroneal tendonitis of right lower extremity [M*02/24/2015 Vertigo [R42] 10/07/2015 Visual disturbances [H53.9] 10/07/2015 Vitreous floaters of both eyes [H43.393] 10/07/2015 Essential hypertension [I10] 04/04/2016 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] 05/15/2016 Sacroiliac joint pain [M53.3] 07/13/2016 Fibromyalgia [M79.7] 09/07/2017 Convulsion, 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 Neck pain [M54.2] 11/28/2019 Upper back pain [M54.9] 11/28/2019 Bilateral shoulder pain [M25.511, M25.512] 11/28/2019 Other chest pain [R07.89] 12/15/2021 Palpitations [R00.2] 02/08/2022 GERD (gastroesophageal reflux disease) [K21.9] 02/08/2022 Elevated liver enzymes [R74.8] 02/08/2022 Internal hemorrhoid [K64.8] 02/08/2022 Liver nodule [K76.89] 03/27/2022 Acute pain of right shoulder [M25.511] 04/05/2022 07/03/2022 Adenoma of liver [D13.4] 08/20/2022 Chronic midline low back pain without sciatica *10/17/2022 01/01/2023 Chronic neck pain [M54.2, G89.29] 10/17/2022 01/01/2023 Lateral epicondylitis, right elbow [M77.11] 10/17/2022 01/01/2023 Prediabetes [R73.03] 10/27/2022 Low back pain [M54.50] 03/20/2023 Encounter Status:Closed by MONIQUE ROSA on 10/10/23 [facility] 10-04-2023 [facility] Telephone (UCTR) INDIGO MEIER ([id number]) 1975 Sandra Shankar Co* Date Time Provider Department 10/04/23 JOHN ZARAGOZA [facility] During your visit today, we recorded the following information about you: John Zaragoza MD 10/04/2023 7:26 AM Signed Vaginal testing was positive for yeast and trichomonas. I have sent 2 prescriptions in to treat these. (Tinidazole sent instead of flagyl since flagyl has GI upset as a side effect). Trichomonas is a sexually transmitted infection. Partners may need to be treated to avoid re-infection and should follow-up for evaluation. Gabi Wells LPN 10/04/2023 7:30 AM Signed Left message for patient to return call for results and recommendations.TISH Selby Brandi, LPN 10/04/2023 11:13 AM Signed Attempted to call pt again to review results, Pt reviewed results at 5:30 am on mychart. Left message to call back if she has any questions. TISH Goldstein Sherrie, RN 10/04/2023 11:25 AM Signed Patient returned call and given provider's message below and patient verbalized understanding. Inocente Moody RN Allergies As of Date: 10/04/2023 Noted Allergy Reaction HOUSE DUST 08/12/2020 3 - Cough MAPLE FLAVOR 08/12/2020 7 - Swelling METRONIDAZOLE 09/14/2022 8 - GI Upset SEASONAL ALLERGIES 04/09/2019 12 - Shortness of Breath Date Reviewed: 10/03/2023 Reviewed by: Jasmin Uribe - Fully Assessed Reason for Visit: Results [95] Cmt: Tiffany+, Trich+ Primary Visit Diagnosis:Trichomoniasis [A59.9] Other Visit Diagnosis:Vaginal candidiasis [B37.31] Order(s):tinidazole (TINDAMAX) 500 mg tabletTake 4 tablets by mouth one time only for 1 dose.Disp: 4 tabletRfl: 0 fluconazole (DIFLUCAN) 150 mg tabletTake 1 tablet by mouth once daily for 1 day.Disp: 1 tabletRfl: 0 Prescriptions as of 10/04/2023 - tinidazole (TINDAMAX) 500 mg tablet Take 4 tablets by mouth one time only for 1 dose. - fluconazole (DIFLUCAN) 150 mg tablet Take 1 tablet by mouth once daily for 1 day. - lisinopril (ZESTRIL) 10 mg tablet Take 1 tablet by mouth once daily. - albuterol HFA (PROVENTIL HFA, VENTOLIN HFA) 90 mcg/actuation inhaler Inhale 2 Puffs as instructed every 6 hours as needed for wheezing/shortness of breath. - nystatin-triamcinolone (MYCOLOG) ointment Apply sparingly to perineum twice daily for irritation/infection. - cyclobenzaprine (FLEXERIL) 10 mg tablet Take 1 tablet by mouth three times a day as needed for muscle spasm. - metoprolol tartrate, short acting, (LOPRESSOR) 50 mg tablet Take 1 tablet by mouth twice daily. - Omeprazole Magnesium (PRILOSEC OTC) 20 mg tablet Take 1 tablet by mouth once daily. - oxybutynin XL (DITROPAN XL) 5 mg 24 hr tablet Take 1 tablet by mouth once daily. - simvastatin (ZOCOR) 10 mg tablet Take 1 tablet by mouth once daily. - cyclobenzaprine (FLEXERIL) 10 mg tablet Take 1 tablet by mouth three times daily as needed. - Lactobacillus acidophilus (FLORAJEN ACIDOPHILUS) 20 billion cell cap Take 1 capsule by mouth once daily. - levonorgestrel (MIRENA) 20 mcg/24 hours (5 yrs) 52 mg IUD 1 Each by INTRAUTERINE route as directed. - Cholecalciferol, Vitamin D3, 1,000 unit cap Take 1 capsule by mouth once daily. Meds Comments as of 03/18/2023: 03/18/23 Started Doxycycline on 03/15/23 for 5 days. Maddie James RN Problem List As Of Date 10/04/2023 Noted Resolved Anxiety state [F41.1] 07/25/2005 Other acne [L70.8] 07/25/2005 Pain in joint, lower leg [M25.569] 02/21/2012 Backache, unspecified [M54.9] 04/26/2012 Hyperlipidemia with target LDL less than 130 [E*05/03/2012 HTN (hypertension) [I10] 05/29/2012 04/04/2016 Marijuana use [F12.90] 12/30/2012 Other enthesopathy of ankle and tarsus [M77.50] 02/10/2015 Peroneal tendonitis of right lower extremity [M*02/24/2015 Vertigo [R42] 10/07/2015 Visual disturbances [H53.9] 10/07/2015 Vitreous floaters of both eyes [H43.393] 10/07/2015 Essential hypertension [I10] 04/04/2016 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] 05/15/2016 Sacroiliac joint pain [M53.3] 07/13/2016 Fibromyalgia [M79.7] 09/07/2017 Convulsion, 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 Neck pain [M54.2] 11/28/2019 Upper back pain [M54.9] 11/28/2019 Bilateral shoulder pain [M25.511, M25.512] 11/28/2019 Other chest pain [R07.89] 12/15/2021 Palpitations [R00.2] 02/08/2022 GERD (gastroesophageal reflux disease) [K21.9] 02/08/2022 Elevated liver enzymes [R74.8] 02/08/2022 Internal hemorrhoid [K64.8] 02/08/2022 Liver nodule [K76.89] 03/27/2022 Acute pain of right shoulder [M25.511] 04/05/2022 07/03/2022 Adenoma of liver [D13.4] 08/20/2022 Chronic midline low back pain without sciatica *10/17/2022 01/01/2023 Chronic neck pain [M54.2, G89.29] 10/17/2022 01/01/2023 Lateral epicondylitis, right elbow [M77.11] 10/17/2022 01/01/2023 Prediabetes [R73.03] 10/27/2022 Low back pain [M54.50] 03/20/2023 Prescriptions ordered t (more content not included)... [facility][id number]) 1975 F Raad Co* Date Time Provider Department 10/04/23 KARINA CHANDLER [facility] During your visit today, we recorded the following information about you: Karina Chandler APRN.NEWSPAPER OR PERIODICAL EDITOR 10/04/2023 6:44 PM Signed Patient calls in with concerns over needing prior auth for treatment of trichomonas. Endorses she does not have true allergy to Flagyl I drank while taking it She states she will not drink this time and requesting to have Flagyl called in citing she does not want to wait for prior auth of alternative Flagyl sent in. Follow up with PCP Allergies As of Date: 10/04/2023 Noted Allergy Reaction HOUSE DUST 08/12/2020 3 - Cough MAPLE FLAVOR 08/12/2020 7 - Swelling METRONIDAZOLE 09/14/2022 8 - GI Upset SEASONAL ALLERGIES 04/09/2019 12 - Shortness of Breath Date Reviewed: 10/03/2023 Reviewed by: Jasmin Uribe - Fully Assessed Reason for Visit: Medication Problem [65] Order(s):metroNIDAZOLE (FLAGYL) 500 mg tabletTake 1 tablet by mouth two times a day for 7 days.Disp: 14 tabletRfl: 0 Prescriptions as of 10/04/2023 - tinidazole (TINDAMAX) 500 mg tablet Take 4 tablets by mouth one time only for 1 dose. - fluconazole (DIFLUCAN) 150 mg tablet Take 1 tablet by mouth once daily for 1 day. - metroNIDAZOLE (FLAGYL) 500 mg tablet Take 1 tablet by mouth two times a day for 7 days. - lisinopril (ZESTRIL) 10 mg tablet Take 1 tablet by mouth once daily. - albuterol HFA (PROVENTIL HFA, VENTOLIN HFA) 90 mcg/actuation inhaler Inhale 2 Puffs as instructed every 6 hours as needed for wheezing/shortness of breath. - nystatin-triamcinolone (MYCOLOG) ointment Apply sparingly to perineum twice daily for irritation/infection. - cyclobenzaprine (FLEXERIL) 10 mg tablet Take 1 tablet by mouth three times a day as needed for muscle spasm. - metoprolol tartrate, short acting, (LOPRESSOR) 50 mg tablet Take 1 tablet by mouth twice daily. - Omeprazole Magnesium (PRILOSEC OTC) 20 mg tablet Take 1 tablet by mouth once daily. - oxybutynin XL (DITROPAN XL) 5 mg 24 hr tablet Take 1 tablet by mouth once daily. - simvastatin (ZOCOR) 10 mg tablet Take 1 tablet by mouth once daily. - cyclobenzaprine (FLEXERIL) 10 mg tablet Take 1 tablet by mouth three times daily as needed. - Lactobacillus acidophilus (FLORAJEN ACIDOPHILUS) 20 billion cell cap Take 1 capsule by mouth once daily. - levonorgestrel (MIRENA) 20 mcg/24 hours (5 yrs) 52 mg IUD 1 Each by INTRAUTERINE route as directed. - Cholecalciferol, Vitamin D3, 1,000 unit cap Take 1 capsule by mouth once daily. Meds Comments as of 03/18/2023: 03/18/23 Started Doxycycline on 03/15/23 for 5 days. Maddie James RN Problem List As Of Date 10/04/2023 Noted Resolved Anxiety state [F41.1] 07/25/2005 Other acne [L70.8] 07/25/2005 Pain in joint, lower leg [M25.569] 02/21/2012 Backache, unspecified [M54.9] 04/26/2012 Hyperlipidemia with target LDL less than 130 [E*05/03/2012 HTN (hypertension) [I10] 05/29/2012 04/04/2016 Marijuana use [F12.90] 12/30/2012 Other enthesopathy of ankle and tarsus [M77.50] 02/10/2015 Peroneal tendonitis of right lower extremity [M*02/24/2015 Vertigo [R42] 10/07/2015 Visual disturbances [H53.9] 10/07/2015 Vitreous floaters of both eyes [H43.393] 10/07/2015 Essential hypertension [I10] 04/04/2016 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] 05/15/2016 Sacroiliac joint pain [M53.3] 07/13/2016 Fibromyalgia [M79.7] 09/07/2017 Convulsion, 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 Neck pain [M54.2] 11/28/2019 Upper back pain [M54.9] 11/28/2019 Bilateral shoulder pain [M25.511, M25.512] 11/28/2019 Other chest pain [R07.89] 12/15/2021 Palpitations [R00.2] 02/08/2022 GERD (gastroesophageal reflux disease) [K21.9] 02/08/2022 Elevated liver enzymes [R74.8] 02/08/2022 Internal hemorrhoid [K64.8] 02/08/2022 Liver nodule [K76.89] 03/27/2022 Acute pain of right shoulder [M25.511] 04/05/2022 07/03/2022 Adenoma of liver [D13.4] 08/20/2022 Chronic midline low back pain without sciatica *10/17/2022 01/01/2023 Chronic neck pain [M54.2, G89.29] 10/17/2022 01/01/2023 Lateral epicondylitis, right elbow [M77.11] 10/17/2022 01/01/2023 Prediabetes [R73.03] 10/27/2022 Low back pain [M54.50] 03/20/2023 Prescriptions ordered this encounter Disp Refills Start End METRONIDAZOLE 500 MG TABLET 14 t* 0 10/04/2023 10/11/2023 Route: ORAL Sig: Take 1 tablet by mouth two times a day for 7 days. Encounter Status:Closed by KARINA CHANDLER on 10/04/23 Normal [facility] BACTERIAL VAGINOSIS NAATon 0 10-03-2023 Lactobacillus crispatus+gasseri+ jensenii + Gardnerella vaginalis + Atopobium vaginae rRNA DANA+probe Ql (Vag fld) Negative Normal Negative for bacterial vaginosis [facility] Comment on above: Order Comment: Speci men Type: SWABOrdering Facility: [facility] Address: [address] [place] [address] Performed By: #### 3 6902-5, BVAMP ####[facility] LABCLIA [id number] [place] [address] [place] Bacteria Ur Culton Bacteria identified Cx Nom (U) ORGANISM ID: 1 10,000 -<50,000 CFU/ml Normal urogenital maria dolores Normal [facility] Comment on above: Performed By: #### 6 30-4 ####[facility] LABCLIA [id number] [place] [address] [place] C. trachomatis+N. gonorrhoea e DNA DANA+probe Ql (Unsp spec)on 10-03-2023 C. trachomatis rRNA DANA+probe Ql (Unsp spec) Negative Normal Negative for Chlamydia trachomatis by amplificaton [facility] Comment on above: Order Comment: Speci men Type: SWABOrdering Facility: [facility] Address: [address] [place] [address] Performed By: #### 3 6902-5, BVAMP ####[facility] LABCLIA [id number] [place] [address] [place] N. gonorrhoeae rRNA DANA+probe Ql (Unsp spec) Negative Normal Negative for Neisseria gonorrhoeae by amplification [facility] Comment on above: Order Comment: Speci men Type: SWABOrdering Facility: [facility] Address: [address] [place] [address] Performed By: #### 3 6902-5, BVAMP ####[facility] LABCLIA [id number] [place] [address] [place] TIFFANY/TRICHOMONAS NAATon 0 10-03-2023 C. glabrata RNA DANA+probe Ql (Vag fld) Negative Normal Negative for Tiffany glabrata [facility] Comment on above: Order Comment: Speci men Type: SWABOrdering Facility: [facility] Address: [address] [place] [address] Performed By: #### C VTV ####[facility] LABCLIA [id number] [place] [address] [place] Tiffany sp DNA DANA+probe Ql (Vag fld) Positive Abnormal Negative for Tiffany species [facility] Comment on above: Order Comment: Speci men Type: SWABOrdering Facility: [facility] Address: [address] [place] [address] Performed By: #### C VTV ####[facility] LABIA [id number] [place] [address] [place] T. vaginalis DNA DANA+probe Ql (Unsp spec) Positive Abnormal Negative for Trichomonas vaginalis by amplification [facility] Comment on above: Order Comment: Speci men Type: SWABOrdering Facility: [facility] Address: [address] [place] [address] Performed By: #### C VTV ####[facility] LABCLIA [id number] [id number] CNOVon 10-03-2023 CNOV Office Visit (UCWSTR ) INDIGO MEIER ([id number]) 1975 Sandra Shankar Ma* Date Time Provider Department 10/03/23 10:30 AM DWAIN HAWKINS WSTR During your visit today, we recorded the following information about you: Temperature Pulse Respiration Blood pressure 96.9 degrees 68/minute 16/minute 124/80 Weight 77.1 kg Dwain Hawkins APRN.NEWSPAPER OR PERIODICAL EDITOR 10/03/2023 11:16 AM Signed CC: Patient presents with: Vaginal Problem: itching, std check HPI Indigo Meier is a 47 year old female who presents with complaint of possible UTI. These symptoms have been present for few days. Associated symptoms: abnormal vaginal discharge and vaginal itching Denies: fever, chills, sweats, abdominal pain, and flank pain Treatments: nothing The ROS was otherwise negative. PMH, Medications, labs, allergies, and recent past visits with PCP were reviewed and updated as able. PHYSICAL EXAM: BP 124/80 Pulse 68 Temp 36.1 ?C (96.9 ?F) Resp 16 Wt 77.1 kg (170 lb) LMP 05/17/2023 (Exact Date) BMI 30.11 kg/m? General: Well appearing and alert Abdomen: nontender per patient Vaginal exam: significant thick white vaginal discahrge noted. Sheet [place] Applier present. No other significant findings. PAST MEDICAL HISTORY Diagnosis Date Anxiety generalized anxiety AND panic disorder (diagnosed by PCP) Chronic back [...] Maple Flavor, Metronidazole, and Seasonal Allergies MEDICATIONS lisinopril (ZESTRIL) 10 mg tablet Take 1 tablet by mouth once daily. albuterol HFA (PROVENTIL HFA, VENTOLIN HFA) 90 mcg/actuation inhaler Inhale 2 Puffs as instructed every 6 hours as needed for wheezing/shortness of breath. nystatin-triamcinolone (MYCOLOG) ointment Apply sparingly to perineum twice daily for irritation/infection. cyclobenzaprine (FLEXERIL) 10 mg tablet Take 1 [...] Drug use: Yes Types: Marijuana Comment: yolanda ASSESSMENT/PLAN: 1. Vaginal itching - ICD9: 698.1, ICD10: N89.8 - UA DIP, URINE (POC) - URINE CULTURE - BACTERIAL VAGINOSIS NAAT - TIFFANY/TRICHOMONAS NAAT - GONORRHEA/CHLAMYDIA NAAT Prescription instructions reviewed with patient as applicable. Potential red flag symptoms discussed with the patient. Reviewed appropriate action plan to take if red flag symptoms occur. Patient agreeable to treatment plan. Dwain Hawkins APRN.NEWSPAPER OR PERIODICAL EDITOR Allergies As of Date: 10/03/2023 Noted Allergy Reaction HOUSE DUST 08/12/2020 3 - Cough MAPLE FLAVOR 08/12/2020 7 - Swelling METRONIDAZOLE 09/14/2022 8 - GI Upset SEASONAL ALLERGIES 04/09/2019 12 - Shortness of Breath Date Reviewed: 10/03/2023 Reviewed by: Jasmin Uribe - Fully Assessed Reason for Visit: Vaginal Problem [117] Cmt: itching, std check Primary Visit Diagnosis:Vaginal itching [N89.8] Order(s):UA DIP, URINE (POC) [3373532] Order #: [id number]. #:[id number] -LAB URINE CULTURE [SQURCUL] Order #: [id number]. #:[id number] BACTERIAL VAGIN (more content not included)... [facility]OBGYWM) INDIGO MEIER ([id number]) 1975 [address] [place] [employer]* Date Time Provider Department 09/26/23 MARIA PETERSON During your visit today, we recorded the following information about you: Monique Rosa RN 09/26/2023 11:54 AM Signed Patient has recurrent yeast infections. Asking for RX for Diflucan. External and internal itching. Denies discharge or odor. RX pending. No need to call patient back. JACKSON Burrell Courtney, APRN.CNM 09/26/2023 12:36 PM Signed RX sent. Maria Peterson APRN.CNM Allergies As of Date: 09/26/2023 Noted Allergy Reaction HOUSE DUST 08/12/2020 3 - Cough MAPLE FLAVOR 08/12/2020 7 - Swelling METRONIDAZOLE 09/14/2022 8 - GI Upset SEASONAL ALLERGIES 04/09/2019 12 - Shortness of Breath Date Reviewed: 08/27/2023 Reviewed by: Sophia Reed RN - Fully Assessed Reason for Visit: Vaginal Problem [117] Order(s):fluconazole (DIFLUCAN) 150 mg tabletTake 1 tablet by mouth one time only for 1 dose.Disp: 1 tabletRfl: 0 Prescriptions as of 09/26/2023 - fluconazole (DIFLUCAN) 150 mg tablet Take 1 tablet by mouth one time only for 1 dose. - albuterol HFA (PROVENTIL HFA, VENTOLIN HFA) 90 mcg/actuation inhaler Inhale 2 Puffs as instructed every 6 hours as needed for wheezing/shortness of breath. - nystatin-triamcinolone (MYCOLOG) ointment Apply sparingly to perineum twice daily for irritation/infection. - cyclobenzaprine (FLEXERIL) 10 mg tablet Take 1 tablet by mouth three times a day as needed for muscle spasm. - lisinopril (ZESTRIL) 10 mg tablet Take 1 tablet by mouth once daily. - metoprolol tartrate, short acting, (LOPRESSOR) 50 mg tablet Take 1 tablet by mouth twice daily. - Omeprazole Magnesium (PRILOSEC OTC) 20 mg tablet Take 1 tablet by mouth once daily. - oxybutynin XL (DITROPAN XL) 5 mg 24 hr tablet Take 1 tablet by mouth once daily. - simvastatin (ZOCOR) 10 mg tablet Take 1 tablet by mouth once daily. - cyclobenzaprine (FLEXERIL) 10 mg tablet Take 1 tablet by mouth three times daily as needed. - Lactobacillus acidophilus (FLORAJEN ACIDOPHILUS) 20 billion cell cap Take 1 capsule by mouth once daily. - levonorgestrel (MIRENA) 20 mcg/24 hours (5 yrs) 52 mg IUD 1 Each by INTRAUTERINE route as directed. - Cholecalciferol, Vitamin D3, 1,000 unit cap Take 1 capsule by mouth once daily. Meds Comments as of 03/18/2023: 03/18/23 Started Doxycycline on 03/15/23 for 5 days. Maddie James RN Problem List As Of Date 09/26/2023 Noted Resolved Anxiety state [F41.1] 07/25/2005 Other acne [L70.8] 07/25/2005 Pain in joint, lower leg [M25.569] 02/21/2012 Backache, unspecified [M54.9] 04/26/2012 Hyperlipidemia with target LDL less than 130 [E*05/03/2012 HTN (hypertension) [I10] 05/29/2012 04/04/2016 Marijuana use [F12.90] 12/30/2012 Other enthesopathy of ankle and tarsus [M77.50] 02/10/2015 Peroneal tendonitis of right lower extremity [M*02/24/2015 Vertigo [R42] 10/07/2015 Visual disturbances [H53.9] 10/07/2015 Vitreous floaters of both eyes [H43.393] 10/07/2015 Essential hypertension [I10] 04/04/2016 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] 05/15/2016 Sacroiliac joint pain [M53.3] 07/13/2016 Fibromyalgia [M79.7] 09/07/2017 Convulsion, 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 Neck pain [M54.2] 11/28/2019 Upper back pain [M54.9] 11/28/2019 Bilateral shoulder pain [M25.511, M25.512] 11/28/2019 Other chest pain [R07.89] 12/15/2021 Palpitations [R00.2] 02/08/2022 GERD (gastroesophageal reflux disease) [K21.9] 02/08/2022 Elevated liver enzymes [R74.8] 02/08/2022 Internal hemorrhoid [K64.8] 02/08/2022 Liver nodule [K76.89] 03/27/2022 Acute pain of right shoulder [M25.511] 04/05/2022 07/03/2022 Adenoma of liver [D13.4] 08/20/2022 Chronic midline low back pain without sciatica *10/17/2022 01/01/2023 Chronic neck pain [M54.2, G89.29] 10/17/2022 01/01/2023 Lateral epicondylitis, right elbow [M77.11] 10/17/2022 01/01/2023 Prediabetes [R73.03] 10/27/2022 Low back pain [M54.50] 03/20/2023 Prescriptions ordered this encounter Disp Refills Start End FLUCONAZOLE 150 MG TABLET 1 ta* 0 09/26/2023 09/26/2023 Route: ORAL Sig: Take 1 tablet by mouth one time only for 1 dose. Encounter Status:Closed by MARIA PETERSON on 09/26/23 [facility] CNCOon 08-20-2023 CNCO Letter Text [facility] CNOVon 08-20-2023 CNOV Office Visit (ORTHWS ) INDIGO MEIER ([id number]) 1975 Sandra Shankar Co* Date Time Provider Department 08/20/23 2:00 PM JONAH IBRAHIM During your visit today, we recorded the following information about you: Jonah Ibrahim MD 09/09/2023 7:21 PM Signed Jonah Ibrahim MD Department of Orthopaedics Orthopaedics [address] [facility] [address] Dept: [phone] Dept August 20, 2023 CHIEF COMPLAINT: New and Pain of the Left Shoulder (Left shoulder pain/Referred by JOE Bender/Xray 07/11/2023/Last seen 10/30/2022 right leg pain) HPI: [...] UP INSTRUCTIONS: As needed. OBJECTIVE: Ms. Indigo Meier is a pleasant 47 year old in [...] No radiographic evidence of acute osseous abnormality Linen Room Supervisor: EVELINE Transcribe Date/Time: Jul 11 2023 1:17P [...] MEDICAL HISTORY Diagnosis Date Anxiety generalized anxiety AND panic disorder (diagnosed by PCP) Chronic back [...] by mouth three times daily as needed. albutero (more content not included)... Normal [facility] [place] 08-06-2023 [facility] Telephone (UCWSTR) INDIGO MEIER ([id number]) 1975 Sandra Shank[address] Co* Date Time Provider Department 08/06/23 DWAIN HAWKINS WSTR During your visit today, we recorded the following information about you: Dwain Hawkins APRN.NEWSPAPER OR PERIODICAL EDITOR 08/06/2023 7:11 AM Signed Patient was negative for bacterial vaginosis, trichomonas, chlamydia, gonorrhea. Patient was positive for a yeast infection. Diflucan was called in. The HSV swabs are not back we will call with those results. Jasmin Uribe 08/06/2023 8:03 AM Signed Left message for patient to return call. Renata Gutiérrez RN 08/06/2023 1:31 PM Signed Spoke with patient. Given message from provider's office. Patient verbalizes understanding. Renata Guy RN Allergies As of Date: 08/06/2023 Noted Allergy Reaction HOUSE DUST 08/12/2020 3 - Cough MAPLE FLAVOR 08/12/2020 7 - Swelling METRONIDAZOLE 09/14/2022 8 - GI Upset SEASONAL ALLERGIES 04/09/2019 12 - Shortness of Breath Date Reviewed: 08/05/2023 Reviewed by: Ghislaine Blanchard LPN - Fully Assessed Reason for Visit: Results [95] Orders [681] Order(s):fluconazole (DIFLUCAN) 150 mg tabletTake 1 tablet by mouth one time only for 1 dose.Disp: 1 tabletRfl: 0 Prescriptions as of 08/06/2023 - fluconazole (DIFLUCAN) 150 mg tablet Take 1 tablet by mouth one time only for 1 dose. - nystatin-triamcinolone (MYCOLOG) ointment Apply sparingly to perineum twice daily for irritation/infection. - cyclobenzaprine (FLEXERIL) 10 mg tablet Take 1 tablet by mouth three times a day as needed for muscle spasm. - lisinopril (ZESTRIL) 10 mg tablet Take 1 tablet by mouth once daily. - metoprolol tartrate, short acting, (LOPRESSOR) 50 mg tablet Take 1 tablet by mouth twice daily. - Omeprazole Magnesium (PRILOSEC OTC) 20 mg tablet Take 1 tablet by mouth once daily. - oxybutynin XL (DITROPAN XL) 5 mg 24 hr tablet Take 1 tablet by mouth once daily. - simvastatin (ZOCOR) 10 mg tablet Take 1 tablet by mouth once daily. - cyclobenzaprine (FLEXERIL) 10 mg tablet Take 1 tablet by mouth three times daily as needed. - albuterol HFA (PROVENTIL HFA, VENTOLIN HFA) 90 mcg/actuation inhaler Inhale 2 Puffs as instructed every 6 hours as needed for wheezing/shortness of breath. - Lactobacillus acidophilus (FLORAJEN ACIDOPHILUS) 20 billion cell cap Take 1 capsule by mouth once daily. - levonorgestrel (MIRENA) 20 mcg/24 hours (5 yrs) 52 mg IUD 1 Each by INTRAUTERINE route as directed. - Cholecalciferol, Vitamin D3, 1,000 unit cap Take 1 capsule by mouth once daily. Meds Comments as of 03/18/2023: 03/18/23 Started Doxycycline on 03/15/23 for 5 days. Maddie James RN Problem List As Of Date 08/06/2023 Noted Resolved Anxiety state [F41.1] 07/25/2005 Other acne [L70.8] 07/25/2005 Pain in joint, lower leg [M25.569] 02/21/2012 Backache, unspecified [M54.9] 04/26/2012 Hyperlipidemia with target LDL less than 130 [E*05/03/2012 HTN (hypertension) [I10] 05/29/2012 04/04/2016 Marijuana use [F12.90] 12/30/2012 Other enthesopathy of ankle and tarsus [M77.50] 02/10/2015 Peroneal tendonitis of right lower extremity [M*02/24/2015 Vertigo [R42] 10/07/2015 Visual disturbances [H53.9] 10/07/2015 Vitreous floaters of both eyes [H43.393] 10/07/2015 Essential hypertension [I10] 04/04/2016 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] 05/15/2016 Sacroiliac joint pain [M53.3] 07/13/2016 Fibromyalgia [M79.7] 09/07/2017 Convulsion, 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 Neck pain [M54.2] 11/28/2019 Upper back pain [M54.9] 11/28/2019 Bilateral shoulder pain [M25.511, M25.512] 11/28/2019 Other chest pain [R07.89] 12/15/2021 Palpitations [R00.2] 02/08/2022 GERD (gastroesophageal reflux disease) [K21.9] 02/08/2022 Elevated liver enzymes [R74.8] 02/08/2022 Internal hemorrhoid [K64.8] 02/08/2022 Liver nodule [K76.89] 03/27/2022 Acute pain of right shoulder [M25.511] 04/05/2022 07/03/2022 Adenoma of liver [D13.4] 08/20/2022 Chronic midline low back pain without sciatica *10/17/2022 01/01/2023 Chronic neck pain [M54.2, G89.29] 10/17/2022 01/01/2023 Lateral epicondylitis, right elbow [M77.11] 10/17/2022 01/01/2023 Prediabetes [R73.03] 10/27/2022 Low back pain [M54.50] 03/20/2023 Prescriptions ordered this encounter Disp Refills Start End FLUCONAZOLE 150 MG TABLET 1 ta* 0 08/06/2023 08/06/2023 Route: ORAL Sig: Take 1 tablet by mouth one time only for 1 dose. Medications Discontinued During This Encounter Prescriptions - ondansetron orally disintegrating (ZOFRAN ODT) 4 mg disintegrating tablet (Discontinued) Take 1 tablet by mouth every 6 hours as needed for nausea/vomiting. Encounter Status:Closed by RENATA GUY on 08/06/23 Normal [facility] BACTERIAL VAGINOSIS NAATon 1 10-05-2022 Lactobacillus crispatus+gasseri+ jensenii + Gardnerella vaginalis + Atopobium vaginae rRNA DANA+probe Ql (Vag fld) Negative Normal Negative for bacterial vaginosis [facility] Comment on above: Order Comment: Speci men Type: SWABOrdering Facility: [facility] Address: [address] [place] [address] [place], [place] [address] Performed By: #### B VAMP, 65239-8 ####[facility] LABCLIA [id number] [place] [address] [place] C. trachomatis+N. gonorrhoea e DNA DANA+probe Ql (Unsp spec)on 08-05-2023 C. trachomatis rRNA DANA+probe Ql (Unsp spec) Negative Normal Negative for Chlamydia trachomatis by amplificaton [facility] Comment on above: Order Comment: Speci men Type: SWABOrdering Facility: [facility] Address: [address] [place] [address] Performed By: #### B VAMP, 95214-3 ####[facility] LABCLIA [id number] [place] [address] [place] N. gonorrhoeae rRNA DANA+probe Ql (Unsp spec) Negative Normal Negative for Neisseria gonorrhoeae by amplification [facility] Comment on above: Order Comment: Speci men Type: SWABOrdering Facility: [facility] Address: [address] [place] [address] Performed By: #### B VAMP, 64985-1 ####[facility] LABCLIA [id number] [place] [address] [place] TIFFANY/TRICHOMONAS NAATon 1 10-05-2022 C. glabrata RNA DANA+probe Ql (Vag fld) Negative Normal Negative for Tiffany glabrata [facility] Comment on above: Order Comment: Speci men Type: SWABOrdering Facility: [facility] Address: [address] [place] [address] Performed By: #### C VTV ####[facility] LABCLIA [id number] [place] [address] [place] Tiffany sp DNA DANA+probe Ql (Vag fld) Positive Abnormal Negative for Tiffany species [facility] Comment on above: Order Comment: Speci men Type: SWABOrdering Facility: [facility] Address: [address] [place] [address] Performed By: #### C VTV ####[facility] LABCLIA [id number] [address] [place] T. vaginalis DNA DANA+probe Ql (Unsp spec) Negative Normal Negative for Trichomonas vaginalis by amplification [facility] Comment on above: Order Comment: Speci men Type: SWABOrdering Facility: [facility] Address: [address] [place] [address] Performed By: #### C VTV ####[facility] LABCLIA [id number] [address] OF [facility] CNOVon 08-05-2023 CNOV Office Visit (UCWSTR ) INDIGO MEIER ([id number]) 1975 [address]* Date Time Provider Department 08/05/23 2:15 PM YEISON IGNACIO WSTR During your visit today, we recorded the following information about you: Temperature Pulse Respiration Blood pressure 98.2 degrees 79/minute 18/minute 142/100 Weight 74.8 kg Yeison Ignacio PA-C 08/05/2023 2:53 PM Signed This note was created using Browsterriter. Subjective Indigo Meier is a 47 year old female. HPI Presents with a chief complaint of vaginal burning and itching and pain with intercourse. She had BV July 11 and was treated at that time. She had some MetroGel leftover and had used at the past few days for the burning and had intercourse while she was using this. She thinks maybe that is what was causing the burning. Denies any known rash. She has had some white discharge. Denies any new sexual partner. Denies diarrhea or vomiting. No dysuria, frequency, urgency or hematuria. Denies chance of . Review of Systems Respiratory: Negative. Cardiovascular: Negative. Gastrointestinal: Negative. Genitourinary: Positive for dyspareunia, vaginal discharge and vaginal pain. Negative for dysuria, flank pain, genital sores, urgency and vaginal bleeding. Musculoskeletal: Negative. All other systems reviewed and are negative. PAST MEDICAL HISTORY Diagnosis Date Anxiety generalized anxiety AND panic disorder (diagnosed by PCP) Chronic back [...] 1 capsule by mouth once daily. 0 nystatin-triamcinolone (MYCOLOG) ointment Apply sparingly to perineum twice daily for irritation/infection. 30 g 0 oxybutynin XL (DITROPAN XL) 5 mg [...] use: Not Currently Types: Marijuana Objective BP 142/100 Pulse 79 Temp 36.8 ?C (98.2 ?F) Resp 18 Wt 74.8 kg (165 lb) LMP 05/17/2023 (Exact Date) SpO2 97% BMI 29.23 kg/m? Physical Exam Vitals reviewed. Constitutional: Appearance: Normal appearance. HENT: Head: Normocephalic and atraumatic. Genitourinary: Comments: Patient has erythema and swelling of the right labia. Some yellow-white discharge in the vaginal canal on speculum exam. No cervical motion tenderness. No bleeding. No other lesions noted internally. Skin: General: Skin is warm and dry. Neurological: Mental Status: She is alert. Assessment and P (more content not included)... Normal [facility] HSV+VZV DNA DANA+probe Ql (Un sp spec)on 08-05-2023 HSV 1 DNA DANA+probe Ql (Unsp spec) Not detected Normal Not Detected [facility] Comment on above: Order Comment: Speci men Type: MICROBIAL ISOLATEOrdering Facility: [facility] Address: [address] [place] [address] Performed By: #### 3 3027-4 ####[facility] LABCLIA [id number] [place] [address] [place] HSV 2 DNA DANA+probe Ql (Unsp spec) Not detected Normal Not Detected [facility] Comment on above: Order Comment: Speci men Type: MICROBIAL ISOLATEOrdering Facility: [facility] Address: [address] [place] [address] Performed By: #### 3 3027-4 ####[facility] [id number] [address] [place] VZV DNA DANA+probe Ql (Unsp spec) Not detected Normal Not Detected [facility] Comment on above: Order Comment: Speci men Type: MICROBIAL ISOLATEOrdering Facility: [facility] Address: [address] [place] [address] Performed By: #### 3 3027-4 ####[facility] LABIA [id number] [address] [facility] CNPNon 07-27-2023 CNPN Telephone (UCTR) INDIGO MEIER ([id number]) 1975 Sandra Shankar Ma* Date Time Provider Department 07/27/23 JOHN ZARAGOZA [facility] During your visit today, we recorded the following information about you: John Zaragoza MD 07/27/2023 2:36 PM Signed Urine culture showed no infection. Please follow-up with your primary care provider or urology to evaluate blood in the urine. Waylon Eckert MA 07/27/2023 3:01 PM Signed Left VM instructing patient to return call to receive results. LUIS FELIPE Horton Beth LPN 07/27/2023 4:00 PM Signed Patient returned call and went over results, notes from express care provider with understanding. Allergies As of Date: 07/27/2023 Noted Allergy Reaction HOUSE DUST 08/12/2020 3 - Cough MAPLE FLAVOR 08/12/2020 7 - Swelling METRONIDAZOLE 09/14/2022 8 - GI Upset SEASONAL ALLERGIES 04/09/2019 12 - Shortness of Breath Date Reviewed: 07/26/2023 Reviewed by: Xochitl Duarte MA - Fully Assessed Reason for Visit: Results [95] Cmt: hematuria Prescriptions as of 07/27/2023 - cyclobenzaprine (FLEXERIL) 10 mg tablet Take 1 tablet by mouth three times a day as needed for muscle spasm. - lisinopril (ZESTRIL) 10 mg tablet Take 1 tablet by mouth once daily. - metoprolol tartrate, short acting, (LOPRESSOR) 50 mg tablet Take 1 tablet by mouth twice daily. - Omeprazole Magnesium (PRILOSEC OTC) 20 mg tablet Take 1 tablet by mouth once daily. - oxybutynin XL (DITROPAN XL) 5 mg 24 hr tablet Take 1 tablet by mouth once daily. - simvastatin (ZOCOR) 10 mg tablet Take 1 tablet by mouth once daily. - ondansetron orally disintegrating (ZOFRAN ODT) 4 mg disintegrating tablet Take 1 tablet by mouth every 6 hours as needed for nausea/vomiting. - cyclobenzaprine (FLEXERIL) 10 mg tablet Take 1 tablet by mouth three times daily as needed. - albuterol HFA (PROVENTIL HFA, VENTOLIN HFA) 90 mcg/actuation inhaler Inhale 2 Puffs as instructed every 6 hours as needed for wheezing/shortness of breath. - Lactobacillus acidophilus (FLORAJEN ACIDOPHILUS) 20 billion cell cap Take 1 capsule by mouth once daily. - levonorgestrel (MIRENA) 20 mcg/24 hours (5 yrs) 52 mg IUD 1 Each by INTRAUTERINE route as directed. - Cholecalciferol, Vitamin D3, 1,000 unit cap Take 1 capsule by mouth once daily. Meds Comments as of 03/18/2023: 03/18/23 Started Doxycycline on 03/15/23 for 5 days. Maddie James RN Problem List As Of Date 07/27/2023 Noted Resolved Anxiety state [F41.1] 07/25/2005 Other acne [L70.8] 07/25/2005 Pain in joint, lower leg [M25.569] 02/21/2012 Backache, unspecified [M54.9] 04/26/2012 Hyperlipidemia with target LDL less than 130 [E*05/03/2012 HTN (hypertension) [I10] 05/29/2012 04/04/2016 Marijuana use [F12.90] 12/30/2012 Other enthesopathy of ankle and tarsus [M77.50] 02/10/2015 Peroneal tendonitis of right lower extremity [M*02/24/2015 Vertigo [R42] 10/07/2015 Visual disturbances [H53.9] 10/07/2015 Vitreous floaters of both eyes [H43.393] 10/07/2015 Essential hypertension [I10] 04/04/2016 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] 05/15/2016 Sacroiliac joint pain [M53.3] 07/13/2016 Fibromyalgia [M79.7] 09/07/2017 Convulsion, 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 Neck pain [M54.2] 11/28/2019 Upper back pain [M54.9] 11/28/2019 Bilateral shoulder pain [M25.511, M25.512] 11/28/2019 Other chest pain [R07.89] 12/15/2021 Palpitations [R00.2] 02/08/2022 GERD (gastroesophageal reflux disease) [K21.9] 02/08/2022 Elevated liver enzymes [R74.8] 02/08/2022 Internal hemorrhoid [K64.8] 02/08/2022 Liver nodule [K76.89] 03/27/2022 Acute pain of right shoulder [M25.511] 04/05/2022 07/03/2022 Adenoma of liver [D13.4] 08/20/2022 Chronic midline low back pain without sciatica *10/17/2022 01/01/2023 Chronic neck pain [M54.2, G89.29] 10/17/2022 01/01/2023 Lateral epicondylitis, right elbow [M77.11] 10/17/2022 01/01/2023 Prediabetes [R73.03] 10/27/2022 Low back pain [M54.50] 03/20/2023 Encounter Status:Closed by MER VALDOVINOS LPN on 07/27/23 Normal [facility] Bacteria Ur Culton 3 Bacteria identified Cx Nom (U) CULTURE, URINE: No growth (<1,000 CFU/ml) Normal [facility] Comment on above: Performed By: #### 6 30-4 ####[facility] LABCLIA [id number] [address] [facility]etha [id number] [id number] [place] CNOVon 07-26-2023 CNOV Office Visit (UCWSTR ) INDIGO MEIER ([id number]) 1975 [address]* Date Time Provider Department 07/26/23 1:30 PM YEISON IGNACIO WSTR During your visit today, we recorded the following information about you: Temperature Pulse Respiration Blood pressure 97.2 degrees 65/minute 22/minute 160/100 Weight 75.8 kg Yeison Ignacio PA-C 07/26/2023 1:54 PM Signed This note was created using mobile melting gmbhter. Subjective Indigo Meier is a 47 year old female. HPI [...] MEDICAL HISTORY Diagnosis Date Anxiety generalized anxiety AND panic disorder (diagnosed by PCP) Chronic back [...] Objective BP 160/100 Pulse 65 Temp 36.2 ?C (97.2 ?F) Resp 22 Wt 75.8 kg (167 lb) LMP 05/17/2023 (Exact Date) SpO2 99% BMI 29.58 kg/m? Physical Exam Vitals reviewed. Constitutional: Appearance: Normal appearance. HENT: Head: Normocephalic and atraumatic. Cardiovascular: Rate and Rhythm: (more content not included)... Normal [facility] HBV surface Ag Ser Qlon 07-02 HBV surface Ag Ql (S) Negative Normal Negative [facility] Comment on above: Order Comment: Speci men Type: BLOOD SPECIMENOrdering Facility: [facility] Address: [address] [place] [address] Performed By: #### 5 195-3, 75941-5, 80621-1 ####[facility] LABCLIA [id number] [place] [address] [place] HCV Ab Ser Qlon 07-26-2023 HCV Ab Ql (S) Negative Normal Negative [facility] Comment on above: Order Comment: Speci men Type: BLOOD SPECIMENOrdering Facility: [facility] Address: [address] [place] [address] Result Comment: The result suggests no evidence of active infection with Hepatitis C virus. Should recent infection be suspected, repeat testing may be considered 4-6 weeks after this draw. Performed By: #### 1 6128-1 ####[facility] LABCLIA [id number] [place] [address] [place] HERPES SIMPLEX TYPE 1 AND 2 IGon 07-26-2023 HSV IGG 1 QUALITATIVE Positive Abnormal Negative [facility] Comment on above: Order Comment: Speci men Type: BLOOD SPECIMENOrdering Facility: [facility] Address: [address] [place] [address] Result Comment: The result suggests recent or past infection with HSV-1. Performed By: #### H SVG12 ####[facility] LABCLIA [id number] [address] [place] HSV IGG 2 QUALITATIVE Negative Normal Negative [facility] Comment on above: Order Comment: Speci men Type: BLOOD SPECIMENOrdering Facility: [facility] Address: [address] [place] [address] Result Comment: No e vidence of past history of HSV-2 infection. Negative result cannot exclude HSV-2 infection if the specimen collected 4-6 weeks after a primary episode of HSV-2 infection. Early institution of antiviral agents may delay or abrogate specific humoral response. Performed By: #### H SVG12 ####[facility] LABCLIA [id number] [place] [address] [place] HIV 1+2 Ab IA Qlon HIV 1 and 2 Ab IA.rapid Nom Normal [facility] Comment on above: Order Comment: Speci men Type: BLOOD SPECIMENOrdering Facility: [facility] Address: [address] [place] [address] Result Comment: Test not indicated. Performed By: #### 5 195-3, 10173-5, 92042-9 ####[facility] LABCLIA [id number] [place] [address] [place] HIV 1+2 Ab+HIV1 p24 Ag IA Ql Non-Reactive Normal Nonreactive [facility] Comment on above: Order Comment: Speci men Type: BLOOD SPECIMENOrdering Facility: [facility] Address: [address] [place] [address] Performed By: #### 5 195-3, 13212-3, 23918-0 ####[facility] LABIA [id number] [place] [address] [place] HIV immunoassay testing algorithm interpretation (S/P/Bld) [Interp] Normal [facility] Comment on above: Order Comment: Speci men Type: BLOOD SPECIMENOrdering Facility: [facility] Address: [address] [place] [address] Result Comment: No e vidence of HIV-1 or HIV-2 infection. Should recent infection be suspected, repeat testing may be considered 2-3 weeks after this draw. [place] Rev. Code 3701.243(E): This information has been disclosed to you from confidential records protected from disclosure by state law. ???You shall make no further disclosure of this information without the specific, written, and informed release of the individual to whom it pertains or as otherwise permitted by state law. A general authorization for the release of medical or other information is not sufficient for the purpose of the release of HIV test results or diagnoses. Performed By: #### 5 195-3, 21477-4, 95894-8 ####[facility] [id number] [place] [address] [place] Reagin and Treponema pallidu m IgG and IgM [Interp]on 07-26-2023 T. pallidum IgG+IgM IA Ql (S) Non-Reactive Normal Nonreactive [facility] Comment on above: Order Comment: Speci men Type: BLOOD SPECIMENOrdering Facility: [facility] Address: [address] [place] [address] Performed By: #### 5 195-3, 74176-4, 08680-4 ####[facility] [id number] [place] [address] [place] Reagin+T pallidum IgG+IgM Se rPl-Impon 07-26-2023 Reagin and Treponema pallidum IgG and IgM [Interp] Cannot exclude recent Treponemal infection if specimen collected within 7-10 days after appearance of suspect lesions or 2-3 weeks after an exposure. Clinical correlation is required. Normal [facility] Comment on above: Order Comment: Speci men Type: BLOOD SPECIMENOrdering Facility: [facility] Address: [address] [place] [address] Performed By: #### 5 195-3, 84424-7, 49266-0 ####[facility] LABCLIA [id number] [facility] [id number] [address] [place] UA DIP, URINE (POC)on 2022 BILIRUBIN UA (POCT) Negative Negative [facility] CLARITY UA (POCT) Clear [facility] COLOR UA (POCT) Yellow [facility] GLUCOSE UA (POCT) Negative Negative mg/dL [facility] Hemoglobin Ql (U) Trace-intact Abnormal Negative [facility] KETONE UA (POCT) Negative Negative mg/dL [facility] LEUKOCYTES UA (POCT) Negative Negative [facility] NITRITE UA (POCT) Negative Negative [facility] PH UA (POCT) 6.0 4.5 - 8.0 [facility] Protein Ql (U) Negative Negative mg/dL [facility] SPECIFIC GRAVITY UA (POCT) 1.020 1.005 - 1.030 [facility] UROBILINOGEN UA (POCT) 0.2 E.U./dL Normal E.U./dL [facility] CNPCharlotte 07-25-2023 [facility] INDIGO MEIER ([id number]) 1975 Sandra Byrd* Date Time Provider Department 07/25/23 JESSICA HUTCHISON [facility] During your visit today, we recorded the following information about you: Mer Valdovinos LPN 07/25/2023 2:12 PM Signed Patient calling she was in express care for UTI on 07/11/2023. She completed her Macrobid rx and says she still has all of the UTI symptoms, strong smell to urine, burning, frequency. Patient is asking for another antibiotic rx? Advised patient that she needs to come in and have urine checked again. Patient still wanted note sent to provider to review. Patient uses [facility] for her pharmacy. Please advise Yeison Ignacio PA-C 07/25/2023 3:07 PM Signed She needs seen again. Waylon Eckert MA 07/25/2023 4:00 PM Signed Left VM informing patient that she needs reevaluated for her symptoms. Waylon Eckert MA Allergies As of Date: 07/25/2023 Noted Allergy Reaction HOUSE DUST 08/12/2020 3 - Cough MAPLE FLAVOR 08/12/2020 7 - Swelling METRONIDAZOLE 09/14/2022 8 - GI Upset SEASONAL ALLERGIES 04/09/2019 12 - Shortness of Breath Date Reviewed: 07/18/2023 Reviewed by: Gabi Wells LPN - Fully Assessed Reason for Visit: Patient Question [7157] Prescriptions as of 07/25/2023 - cyclobenzaprine (FLEXERIL) 10 mg tablet Take 1 tablet by mouth three times a day as needed for muscle spasm. - lisinopril (ZESTRIL) 10 mg tablet Take 1 tablet by mouth once daily. - metoprolol tartrate, short acting, (LOPRESSOR) 50 mg tablet Take 1 tablet by mouth twice daily. - Omeprazole Magnesium (PRILOSEC OTC) 20 mg tablet Take 1 tablet by mouth once daily. - oxybutynin XL (DITROPAN XL) 5 mg 24 hr tablet Take 1 tablet by mouth once daily. - simvastatin (ZOCOR) 10 mg tablet Take 1 tablet by mouth once daily. - ondansetron orally disintegrating (ZOFRAN ODT) 4 mg disintegrating tablet Take 1 tablet by mouth every 6 hours as needed for nausea/vomiting. - cyclobenzaprine (FLEXERIL) 10 mg tablet Take 1 tablet by mouth three times daily as needed. - albuterol HFA (PROVENTIL HFA, VENTOLIN HFA) 90 mcg/actuation inhaler Inhale 2 Puffs as instructed every 6 hours as needed for wheezing/shortness of breath. - Lactobacillus acidophilus (FLORAJEN ACIDOPHILUS) 20 billion cell cap Take 1 capsule by mouth once daily. - levonorgestrel (MIRENA) 20 mcg/24 hours (5 yrs) 52 mg IUD 1 Each by INTRAUTERINE route as directed. - Cholecalciferol, Vitamin D3, 1,000 unit cap Take 1 capsule by mouth once daily. Meds Comments as of 03/18/2023: 03/18/23 Started Doxycycline on 03/15/23 for 5 days. Maddie James RN Problem List As Of Date 07/25/2023 Noted Resolved Anxiety state [F41.1] 07/25/2005 Other acne [L70.8] 07/25/2005 Pain in joint, lower leg [M25.569] 02/21/2012 Backache, unspecified [M54.9] 04/26/2012 Hyperlipidemia with target LDL less than 130 [E*05/03/2012 HTN (hypertension) [I10] 05/29/2012 04/04/2016 Marijuana use [F12.90] 12/30/2012 Other enthesopathy of ankle and tarsus [M77.50] 02/10/2015 Peroneal tendonitis of right lower extremity [M*02/24/2015 Vertigo [R42] 10/07/2015 Visual disturbances [H53.9] 10/07/2015 Vitreous floaters of both eyes [H43.393] 10/07/2015 Essential hypertension [I10] 04/04/2016 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] 05/15/2016 Sacroiliac joint pain [M53.3] 07/13/2016 Fibromyalgia [M79.7] 09/07/2017 Convulsion, 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 Neck pain [M54.2] 11/28/2019 Upper back pain [M54.9] 11/28/2019 Bilateral shoulder pain [M25.511, M25.512] 11/28/2019 Other chest pain [R07.89] 12/15/2021 Palpitations [R00.2] 02/08/2022 GERD (gastroesophageal reflux disease) [K21.9] 02/08/2022 Elevated liver enzymes [R74.8] 02/08/2022 Internal hemorrhoid [K64.8] 02/08/2022 Liver nodule [K76.89] 03/27/2022 Acute pain of right shoulder [M25.511] 04/05/2022 07/03/2022 Adenoma of liver [D13.4] 08/20/2022 Chronic midline low back pain without sciatica *10/17/2022 01/01/2023 Chronic neck pain [M54.2, G89.29] 10/17/2022 01/01/2023 Lateral epicondylitis, right elbow [M77.11] 10/17/2022 01/01/2023 Prediabetes [R73.03] 10/27/2022 Low back pain [M54.50] 03/20/2023 Encounter Status:Closed by WAYLON ECKERT on 07/25/23 Normal [facility] UA DIP, URINE (POC)on 2022 BILIRUBIN UA (POCT) Negative Negative [facility] CLARITY UA (POCT) Cloudy [facility] COLOR UA (POCT) [place] [facility] GLUCOSE UA (POCT) Negative Negative mg/dL [facility] Hemoglobin Ql (U) Large Abnormal Negative [facility] KETONE UA (POCT) Negative Negative mg/dL [facility] LEUKOCYTES UA (POCT) Small Abnormal Negative [facility] NITRITE UA (POCT) Negative Negative [facility] PH UA (POCT) 5.5 4.5 - 8.0 [facility] Protein Ql (U) 100 mg/dL Abnormal Negative mg/dL [facility] SPECIFIC GRAVITY UA (POCT) 1.020 1.005 - 1.030 [facility] UROBILINOGEN UA (POCT) 0.2 E.U./dL Normal E.U./dL [facility] XR SHOULDER GENERAL 3V OR MO RE AP/TRUE AP/OTHER LEFTon 07-11-2023 [facility] XR Shoulder - left 3 Viewson 07-11-2023 IMPRESSION: No radiographic evidence of acute osseous abnormality Linen Room Supervisor: EVELINE Transcribe Date/Time: Jul 11 2023 1:17P Dictated by : JOHNSON ONEAL MD This examination was interpreted and the report reviewed and electronically signed by: JOHNSON ONEAL MD on Jul 11 2023 1:17PM EST DIVISION OF RADIOLOGY * * *Final Report* * * DATE [...] fracture or dislocation identified. Acromioclavicular joint intact. DIVISION OF RADIOLOGY Provider, [facility] - 07/11/2023 * * *Final Report* * * DATE [...] fracture or dislocation identified. Acromioclavicular joint intact. IMPRESSION IMPRESSION: No radiographic evidence of acute osseous abnormality Linen Room Supervisor: [facility] Transcribe Date/Time: Jul 11 2023 1:17P Dictated by : JOHNSON ONEAL MD This examination was interpreted and the report reviewed and electronically signed by: JOHNSON ONEAL MD on Jul 11 2023 1:17PM EST [facility] Radiology [facility]narrative) [facility] - left 3 ViewsOr dered By: Ccf Provider on 07-11-2023 [facility] XR Knee - right 4 Viewson IMPRESSION: Unremark able right knee x-ray. Linen Room Supervisor: [facility] Transcribe Date/Time: Jun 25 2023 2:41P Dictated by : JSESIE BARTHOLOMEW MD This examination was interpreted and the report reviewed and electronically signed by: JESSIE BARTHOLOMEW MD on Jun 25 2023 2:42PM EST DIVISION OF RADIOLOGY * * *Final Report* * * DATE OF EXAM: Jun 25 2023 2:38PM WOX 5203 - XR KNEE 4V AP/PA BOTH+LAT/MARRY RT / PROCEDURE REASON: Acute pain of right knee * * * * Physician Interpretation * * * * EXAM TITLE: XR KNEE 4V AP/PA BOTH+LAT/MARRY RT EXAM DATE/TIME: 06/25/2023 2:38 PM COMPARISON: None. CLINICAL INDICATION/HISTORY: Acute knee pain TECHNIQUE: AP/PA, lateral and sunrise views of the right knee are presented. FINDINGS: No acute fractures or subluxations are noted. No obvious osteophyte formation. The joint spaces are well preserved. There is no evidence of joint effusion. The mineralization of the bones is normal. There is no significant soft tissue swelling. DIVISION OF RADIOLOGY Provider, Alden [facility] - 06/25/2023 * * *Final Report* * * DATE OF EXAM: Jun 25 2023 2:38PM WOX 5203 - XR KNEE 4V AP/PA BOTH+LAT/MARRY RT / PROCEDURE REASON: Acute pain of right knee * * * * Physician Interpretation * * * * EXAM TITLE: XR KNEE 4V AP/PA BOTH+LAT/MARRY RT EXAM DATE/TIME: 06/25/2023 2:38 PM COMPARISON: None. CLINICAL INDICATION/HISTORY: Acute knee pain TECHNIQUE: AP/PA, lateral and sunrise views of the right knee are presented. FINDINGS: No acute fractures or subluxations are noted. No obvious osteophyte formation. The joint spaces are well preserved. There is no evidence of joint effusion. The mineralization of the bones is normal. There is no significant soft tissue swelling. IMPRESSION IMPRESSION: Unremarkable right knee x-ray. Linen Room Supervisor: [facility] Transcribe Date/Time: Jun 25 2023 2:41P Dictated by : JESSIE BARTHOLOMEW MD This examination was interpreted and the report reviewed and electronically signed by: JESSIE BARTHOLOMEW MD on Jun 25 2023 2:42PM EST [facility] Radiology Study observation (narrative) [facility] XR Knee - right 4 ViewsOrder ed By: Ccf Provider on 06-25-2023 [facility] MRI BRAIN WO IVCONon 023 [facility] No Panel Informationon 04-04 [facility] XR CHEST 2V FRONTAL/LATon [facility] XR Chest PA and Lateralon IMPRESSION: No acute radiographic abnormality. Linen Room Supervisor: EVELINE Transcribe Date/Time: Mar 15 2023 10:32A Dictated by : ADRY CROWLEY MD This examination was interpreted and the report reviewed and electronically signed by: ADRY CROWLEY MD on Mar 15 2023 10:34AM [facility] DIVISION OF RADIOLOGY * * *Final Report* * * DATE OF EXAM: Mar 15 2023 10:28AM WOX 5291 - XR CHEST 2V FRONTAL/LAT / PROCEDURE REASON: Acute cough * * * * Physician Interpretation * * * * EXAMINATION: CHEST RADIOGRAPH (2 VIEW FRONTAL & LATERAL) CLINICAL HISTORY: Acute cough MQ: XC2_6 EXAM DATE/TIME: 03/15/2023 10:28 AM COMPARISON: Chest x-ray 11/30/2022 RESULT: Lines, tubes, and devices: None. Lungs and pleura: No consolidation. No lung mass. No pleural effusion. No pneumothorax. Cardiomediastinal silhouette: Normal cardiomediastinal silhouette. Bones and soft tissues: Unremarkable. DIVISION OF RADIOLOGY Provider, [facility] - 03/15/2023 * * *Final Report* * * DATE OF EXAM: Mar 15 2023 10:28AM WOX 5291 - XR CHEST 2V FRONTAL/LAT / PROCEDURE REASON: Acute cough * * * * Physician Interpretation * * * * EXAMINATION: CHEST RADIOGRAPH (2 VIEW FRONTAL & LATERAL) CLINICAL HISTORY: Acute cough MQ: XC2_6 EXAM DATE/TIME: 03/15/2023 10:28 AM COMPARISON: Chest x-ray 11/30/2022 RESULT: Lines, tubes, and devices: None. Lungs and pleura: No consolidation. No lung mass. No pleural effusion. No pneumothorax. Cardiomediastinal silhouette: Normal cardiomediastinal silhouette. Bones and soft tissues: Unremarkable. IMPRESSION IMPRESSION: No acute radiographic abnormality. Linen Room Supervisor: EVELINE Transcribe Date/Time: Mar 15 2023 10:32A Dictated by : ADRY CROWLEY MD This examination was interpreted and the report reviewed and electronically signed by: ADRY CROWLEY MD on Mar 15 2023 10:34AM EST [facility] Radiology Study observation (narrative) [facility] XR Chest PA and LateralOrder ed By: Ccf Provider on 03-15-2023 [facility] XR Lumbar spine 3 Viewson IMPRESSION: Unremark able lumbar spine X-ray. Linen Room Supervisor: EVELINE Transcribe Date/Time: Mar 14 2023 3:32P Dictated by : JESSIE BARTHOLOMEW MD This examination was interpreted and the report reviewed and electronically signed by: JESSIE BARTHOLOMEW MD on Mar 14 2023 3:34PM [facility] DIVISION OF RADIOLOGY * * *Final Report* * * DATE OF EXAM: Mar 14 2023 12:09PM WOX 5228 - XR LUMBAR 3V AP/LAT/L5-S1 / PROCEDURE REASON: Lumbar pain * * * * Physician Interpretation * * * * EXAM TITLE: XR LUMBAR 3V AP/LAT/L5-S1 EXAM DATE/TIME: 03/14/2023 12:09 PM COMPARISON: None. CLINICAL INDICATION/HISTORY: Pain. TECHNIQUE: AP, lateral and cone down lateral views of the lumbar spine are presented. FINDINGS: There are five [id number]-[id number] lumbar vertebrae. No fracture or subluxations are noted. The disc spaces are well preserved. There is minimal osteophyte formation. Others: A surgical tube ligation clip noted in the pelvis. DIVISION OF RADIOLOGY Provider, [facility] - 03/14/2023 * * *Final Report* * * DATE OF EXAM: Mar 14 2023 12:09PM WOX 5228 - XR LUMBAR 3V AP/LAT/L5-S1 / PROCEDURE REASON: Lumbar pain * * * * Physician Interpretation * * * * EXAM TITLE: XR LUMBAR 3V AP/LAT/L5-S1 EXAM DATE/TIME: 03/14/2023 12:09 PM COMPARISON: None. CLINICAL INDICATION/HISTORY: Pain. TECHNIQUE: AP, lateral and cone down lateral views of the lumbar spine are presented. FINDINGS: There are five dwv-tzx-[id number] lumbar vertebrae. No fracture or subluxations are noted. The disc spaces are well preserved. There is minimal osteophyte formation. Others: A surgical tube ligation clip noted in the pelvis. IMPRESSION IMPRESSION: Unremarkable lumbar spine X-ray. Linen Room Supervisor: EVELINE Transcribe Date/Time: Mar 14 2023 3:32P Dictated by : JESSIE BARTHOLOMEW MD This examination was interpreted and the report reviewed and electronically signed by: JESSIE BARTHOLOMEW MD on Mar 14 2023 3:34PM EST [facility] Radiology Study observation (narrative) [facility] XR Lumbar spine 3 ViewsOrder ed By: Ccf Provider on 03-14-2023 [facility] STREP A MOLECULAR (POC)on Procedural Control Valid [facility] Strep A (POCT) Negative Negative [facility] STREP A MOLECULAR (POC)on Procedural Control Valid [facility] Strep A (POCT) Negative Negative [facility] RONDA SCREENING W TOMOon 12-11 [facility] XR Chest PA and Lateralon IMPRESSION: Interval improvement of small hazy opacities in the bilateral lungs. Linen Room Supervisor: EVELINE Transcribe Date/Time: Nov 30 2022 3:20P Dictated by : JESSIE BARTHOLOMEW MD This examination was interpreted and the report reviewed and electronically signed by: JESSIE BARTHOLOMEW MD on Nov 30 2022 3:21PM [facility] DIVISION OF RADIOLOGY * * *Final Report* * * DATE OF EXAM: Nov 30 2022 11:48AM WOX 5291 - XR CHEST 2V FRONTAL/LAT / PROCEDURE REASON: Pneumonia of right lower lobe due to infectious organism * * * * Physician Interpretation * * * * EXAMINATION: CHEST RADIOGRAPH (2 VIEW FRONTAL & LATERAL) CLINICAL HISTORY: Pneumonia of right lower lobe due to infectious organism MQ: XC2_6 EXAM DATE/TIME: 11/30/2022 11:48 AM COMPARISON: Chest x-ray on 10/30/2022 RESULT: Lines, tubes, and devices: None. Lungs and pleura: Interval improvement of vague small hazy opacities in the bilateral lower lungs. No new consolidations seen. No masses. No pleural effusions or pneumothorax. Cardiomediastinal silhouette: Stable cardiomediastinal silhouette. Bones and soft tissues: Unremarkable. DIVISION OF RADIOLOGY Provider, Alden [facility] - 11/30/2022 * * *Final Report* * * DATE OF EXAM: Nov 30 2022 11:48AM WOX 5291 - XR CHEST 2V FRONTAL/LAT / PROCEDURE REASON: Pneumonia of right lower lobe due to infectious organism * * * * Physician Interpretation * * * * EXAMINATION: CHEST RADIOGRAPH (2 VIEW FRONTAL & LATERAL) CLINICAL HISTORY: Pneumonia of right lower lobe due to infectious organism MQ: XC2_6 EXAM DATE/TIME: 11/30/2022 11:48 AM COMPARISON: Chest x-ray on 10/30/2022 RESULT: Lines, tubes, and devices: None. Lungs and pleura: Interval improvement of vague small hazy opacities in the bilateral lower lungs. No new consolidations seen. No masses. No pleural effusions or pneumothorax. Cardiomediastinal silhouette: Stable cardiomediastinal silhouette. Bones and soft tissues: Unremarkable. IMPRESSION IMPRESSION: Interval improvement of small hazy opacities in the bilateral lungs. Linen Room Supervisor: EVELINE Transcribe Date/Time: Nov 30 2022 3:20P Dictated by : JESSIE BARTHOLOMEW MD This examination was interpreted and the report reviewed and electronically signed by: JESSIE BARTHOLOMEW MD on Nov 30 2022 3:21PM EST [facility] Radiology Study observation (narrative) [facility] XR Chest PA and LateralOrder ed By: Ccf Provider on 11-30-2022 [facility] XR Knee - right 4 Viewson IMPRESSION: No acute osseous abnormality Linen Room Supervisor: [facility] Transcribe Date/Time: Nov 10 2022 7:54A Dictated by : ADRY CROWLEY MD This examination was interpreted and the report reviewed and electronically signed by: ADRY CROWLEY MD on Nov 10 2022 7:56AM [facility] DIVISION OF RADIOLOGY * * *Final Report* * * DATE OF EXAM: Nov 07 2022 9:42AM WOX 5203 - XR KNEE 4V AP/PA BOTH+LAT/MARRY RT / PROCEDURE REASON: multiple diagnoses * * * * Physician Interpretation * * * * EXAMINATION: XR KNEE 4V AP/PA BOTH+LAT/MARRY RT CLINICAL HISTORY: Chronic pain of right knee Technique: XR KNEE 4V AP/PA BOTH+LAT/MARRY RT -- RIGHT with 4 views on 4 images Comparison: None RESULT: No acute fracture or dislocation. Joint spaces are maintained. DIVISION OF RADIOLOGY Provider, Alden [facility] - 11/10/2022 * * *Final Report* * * DATE OF EXAM: Nov 07 2022 9:42AM WOX 5203 - XR KNEE 4V AP/PA BOTH+LAT/MARRY RT / PROCEDURE REASON: multiple diagnoses * * * * Physician Interpretation * * * * EXAMINATION: XR KNEE 4V AP/PA BOTH+LAT/MARRY RT CLINICAL HISTORY: Chronic pain of right knee Technique: XR KNEE 4V AP/PA BOTH+LAT/MARRY RT -- RIGHT with 4 views on 4 images Comparison: None RESULT: No acute fracture or dislocation. Joint spaces are maintained. IMPRESSION IMPRESSION: No acute osseous abnormality Linen Room Supervisor: [facility] Transcribe Date/Time: Nov 10 2022 7:54A Dictated by : ADRY CROWLEY MD This examination was interpreted and the report reviewed and electronically signed by: ADRY CROWLEY MD on Nov 10 2022 7:56AM EST [facility] XR Knee - right 4 ViewsOrder ed By: Ccf Provider on 11-10-2022 [facility] XR Knee - right 4 Viewson Radiology Study observation (narrative) [facility] XR Chest PA and Lateralon IMPRESSION: Mild right lower lobe airspace opacity may represent developing pneumonia Linen Room Supervisor: [facility] Transcribe Date/Time: Oct 30 2022 1:39P Dictated by : SUDHEER SOTO MD This examination was interpreted and the report reviewed and electronically signed by: SUDHEER SOTO MD on Oct 30 2022 1:40PM [facility] DIVISION OF RADIOLOGY * * *Final Report* * * DATE OF EXAM: Oct 30 2022 1:14PM WOX 5291 - XR CHEST 2V FRONTAL/LAT / PROCEDURE REASON: Bacterial pneumonia * * * * Physician Interpretation * * * * EXAMINATION: CHEST RADIOGRAPH (2 VIEW FRONTAL & LATERAL) CLINICAL HISTORY: Bacterial pneumonia MQ: XC2_6 EXAM DATE/TIME: 10/30/2022 1:14 PM COMPARISON: 05/04/2015 RESULT: Lines, tubes, and devices: None. Lungs and pleura: No consolidation. No lung mass. No pleural effusion. No pneumothorax. Mild right lower lobe airspace opacity may represent developing pneumonia Cardiomediastinal silhouette: Normal cardiomediastinal silhouette. Bones and soft tissues: Unremarkable. DIVISION OF RADIOLOGY Provider, Alden Alaniz [place] - 10/30/2022 * * *Final Report* * * DATE OF EXAM: Oct 30 2022 1:14PM WOX 5291 - XR CHEST 2V FRONTAL/LAT / PROCEDURE REASON: Bacterial pneumonia * * * * Physician Interpretation * * * * EXAMINATION: CHEST RADIOGRAPH (2 VIEW FRONTAL & LATERAL) CLINICAL HISTORY: Bacterial pneumonia MQ: XC2_6 EXAM DATE/TIME: 10/30/2022 1:14 PM COMPARISON: 05/04/2015 RESULT: Lines, tubes, and devices: None. Lungs and pleura: No consolidation. No lung mass. No pleural effusion. No pneumothorax. Mild right lower lobe airspace opacity may represent developing pneumonia Cardiomediastinal silhouette: Normal cardiomediastinal silhouette. Bones and soft tissues: Unremarkable. IMPRESSION IMPRESSION: Mild right lower lobe airspace opacity may represent developing pneumonia Linen Room Supervisor: [facility] Transcribe Date/Time: Oct 30 2022 1:39P Dictated by : SUDHEER SOTO MD This examination was interpreted and the report reviewed and electronically signed by: SUDHEER SOTO MD on Oct 30 2022 1:40PM EST [facility] Radiology Study observation (narrative) [facility] XR Chest PA and LateralOrder ed By: [facility] Provider on 10-30-2022 [facility] XR HAND GENERAL 3V PA/LAT/OB L RIGHTon 10-09-2022 [facility] Influenza virus A and B RNA and SARS-CoV-2 (COVID-19) N gene panel DANA+probe (Resp)on 09-22-2022 FLUAV RNA DANA+probe Ql (Unsp spec) Negative Negative for Influenza A by RT-PCR [facility] FLUBV RNA DANA+probe Ql (Unsp spec) Negative Negative for Influenza B by RT-PCR [facility] SARS-CoV-2 (COVID-19) RNA DANA+probe Ql (Resp) SARS-CoV-2 (Agent of COVID-19) Not Detected by RT-PCR or equivalent method. Not Detected [facility] UA DIP, URINE (POC)on 2021 BILIRUBIN UA (POCT) Negative Negative [facility] CLARITY UA (POCT) Clear [facility] COLOR UA (POCT) Yellow [facility] GLUCOSE UA (POCT) Negative Negative mg/dL [facility] HEMOGLOBIN/BLOOD UA (POCT) Trace-intact Abnormal Negative [facility] KETONE UA (POCT) Negative Negative mg/dL [facility] LEUKOCYTES UA (POCT) Small Abnormal Negative [facility] NITRITE UA (POCT) Negative Negative [facility] PH UA (POCT) 5.0 4.5 - 8.0 [facility] Protein Ql (U) Negative Negative mg/dL [facility] SPECIFIC GRAVITY UA (POCT) 1.025 1.005 - 1.030 [facility] UROBILINOGEN UA (POCT) 0.2 E.U./dL Normal E.U./dL [facility] UA DIP, URINE (POC)on 2021 BILIRUBIN UA (POCT) Negative Negative [facility] CLARITY UA (POCT) Clear [facility] COLOR UA (POCT) Yellow [facility] GLUCOSE UA (POCT) Negative Negative mg/dL [facility] HEMOGLOBIN/BLOOD UA (POCT) Trace-lysed Abnormal Negative [facility] KETONE UA (POCT) Negative Negative mg/dL [facility] LEUKOCYTES UA (POCT) Negative Negative [facility] NITRITE UA (POCT) Negative Negative [facility] PH UA (POCT) 6.5 4.5 - 8.0 [facility] Protein Ql (U) Negative Negative mg/dL [facility] SPECIFIC GRAVITY UA (POCT) 1.020 1.005 - 1.030 [facility] UROBILINOGEN UA (POCT) 0.2 E.U./dL Normal E.U./dL [facility] ANES POSTPROC EVALon 022 ANES POSTPROC EVAL HNO ID: [id number] Author: Nasreen Adam MD Service: Anesthesiology Author Type: Anesthesiologist Type: Anesthesia Postprocedure Evaluation Filed: 04/26/2022 12:25 PM Note Text: POST ANESTHESIA EVALUATION NOTE : 1975 Procedure Summary Date: 04/26/22 Room / Location: [facility] OR / [facility] OR Anesthesia Start: 1011 Anesthesia Stop: 1135 Procedures: EXAM UNDER ANESTHESIA RECTAL (N/A Anus) HEMORRHOIDECTOMY, INTERNAL AND EXTERNAL SINGLE COLUMN/GROUP (N/A Anus) Diagnosis: Internal hemorrhoid Surgeons: José Kulkarni MD Responsible Provider: Nasreen Adam MD Anesthesia Type: general ASA Status: 3 Anesthesia Type: general Airway Type: ETT Last Vitals Vitals Value Taken Time BP 153/100 04/26/22 1200 Temp 36.4 ?C (97.5 ?F) 04/26/22 1130 Pulse 65 04/26/22 1203 Resp 54 04/26/22 1203 SpO2 93 % 04/26/22 1202 Vitals shown include unvalidated device data. Post Anesthesia Patient Status Patient Evaluation: PACU. PACU/ICU Patient Condition: stable. Anticipated Disposition: phase 2 then home. Neurological Status: aware and responsive. Pulmonary Status: breathing comfortably on room air Airway Control: returned to baseline unsupported. Cardiovascular Status: stable. Pain Management: clinically adequate - multimodal analgesia pain management approach Postoperative Hydration: acceptable. Intraoperative Events: no significant anesthesia events Post Operative Nausea/Vomiting Status: no significant post operative nausea or vomiting Anesthetic Observations: Recommendation: continue current plan of care. Other Remarks: Very sedated post-op. Anesthesia Observations No Documentation SIGNATURE: Nasreen Adam MD PATIENT NAME: Indigo Meier DATE: April 26, 2022 TIME: 12:25 PM CSN: [id number] [facility] ANES PRE-OPon 04-26-2022 ANES PRE-OP HNO ID: [id number] Author: Nasreen Adam MD Service: Anesthesiology Author Type: Anesthesiologist Type: Anesthesia Preprocedure Evaluation Filed: 04/26/2022 9:01 AM Note Text: ANESTHESIOLOGY DAY OF SURGERY NOTE : 1975 Procedure Information Date/Time: 04/26/22925 Procedures: EXAM UNDER ANESTHESIA RECTAL (N/A Anus) HEMORRHOIDECTOMY, INTERNAL AND EXTERNAL SINGLE COLUMN/GROUP (N/A Anus) Location: [facility] OR / [facility] OR Surgeons: José Kulkarni MD Estimated body mass index is 31 kg/m? as calculated from the following: Height as of 03/20/22: 158 cm (5' 2.21 ). Weight as of 04/25/22: 77.4 kg (170 lb 10.2 oz). Most recent hematocrit and potassium results: Hematocrit 42.7 03/08/2022 Potassium 3.5 03/08/2022 Relevant Problems CARDIO (+) Essential hypertension (+) Internal hemorrhoid GI (+) GERD (gastroesophageal reflux disease) NEURO-PSYCH (+) Convulsion, non-epileptic (HCC) I - PHYSICAL EVALUATION AIRWAY Patient intubated: No. Tracheostomy tube not present Mallampati: II. TM distance: >3 FB. Neck ROM: full ROM without neurological symptoms. Mouth opening: adequate. Short neck: no. Thick neck: no DENTAL Dental findings: teeth intact. Additional exam findings: yes. CARDIOVASCULAR Rhythm: regular PULMONARY Breath sounds clear to auscultation. II - ANESTHESIA PLAN ASA Score: 3 Anesthetic Plan: general Airway type: ETT NPO Status: adequate Monitoring plan: Standard ASA. Postoperative analgesic plan: parenteral or oral opioids and multimodal analgesia. Patient / Surrogate agrees to blood products: yes DNR status not reviewed with patient and/or family prior to surgery. Significant changes in the patient condition since the History and Physical, not otherwise documented in primary service progress note: no. Potential Anesthesia issues that may suggest increased risk of complications or contraindication to planned procedure: none. Vitals Value Taken Time BP 162/101 04/26/22 0834 Pulse Resp 16 04/26/22 0834 Temp 36.2 ?C (97.2 ?F) 04/26/22 0834 SpO2 100 % 04/26/22 0834 Facility-Administered Medications as of 04/26/2022 Medication Dose Route Frequency - [COMPLETED] promethazine 12.5 mg tab(s) (PHENERGAN) 12.5 mg ORAL Pre-Op Once - lactated ringers iv infusion 30 mL/hr INTRAVENOUS CONTINUOUS - [COMPLETED] acetaminophen 1,000 mg tab(s) (TYLENOL) 1,000 mg ORAL Pre-Op Once - lactated ringers iv infusion 5-30 mL/hr INTRAVENOUS CONTINUOUS - clindamycin iv piggyback 900 mg in D5W 50 mL (CLEOCIN) 900 mg INTRAVENOUS Pre-Op Once Outpatient Medications as of 04/26/2022 Medication Sig - simvastatin (ZOCOR) 10 mg tablet Take 1 tablet by mouth once daily. - Omeprazole Magnesium (PRILOSEC OTC) 20 mg tablet Take 1 tablet by mouth once daily. - levonorgestrel (MIRENA) 20 mcg/24 hours (5 yrs) 52 mg IUD 1 Each by INTRAUTERINE route as directed. - ibuprofen (MOTRIN) 800 mg tablet Take 1 tablet by mouth every 8 hours as needed (FOR PAIN. TAKE WITH FOOD). - cyclobenzaprine (FLEXERIL) 10 mg tablet Take 1 tablet by mouth three times daily as needed for muscle spasm. - albuterol HFA (PROVENTIL HFA, VENTOLIN HFA) 90 mcg/actuation inhaler Inhale 2 Puffs as instructed every 6 hours as needed. - ondansetron orally disintegrating (ZOFRAN ODT) 4 mg disintegrating tablet Take 1 tablet by mouth every 6 hours as needed for nausea/vomiting. - ondansetron orally disintegrating (ZOFRAN ODT) 4 mg disintegrating tablet Take 1 tablet by mouth every 6 hours as needed for nausea/vomiting. - peg 3350-Electrolytes (GOLYTELY) 236-22.74-6.74 -5.86 gram suspension Refer to printed prep instructions from your provider. - Cholecalciferol, Vitamin D3, 1,000 unit cap Take 1 capsule by mouth once daily. I have interviewed and examined the patient. I have reviewed the medical record and/or the pre-anesthesia evaluation, pertinent labs, and test results. This contains updated information obtained within 48 hours of Surgery/Procedure. SIGNATURE: Nasreen Adam MD PATIENT NAME: Indigo Meier DATE: April 26, 2022 TIME: 9:00 AM CSN: [id number] [facility] BRIEF OP NOTon 04-26-2022 BRIEF OP NOT HNO ID: [id number] Author: José Kulkarni MD Service: General Surgery Author Type: Physician Type: Brief Op Note Filed: 04/26/2022 11:18 AM Note Text: BRIEF OPERATIVE NOTATION FOR SURGICAL PROCEDURE. Indigo Meier 1975 [id number] female LOG ID: [id number] Surgery/Procedure Date: 04/26/2022 Incision/Procedure Start Time: 10:34 AM Incision Close/Procedure End Time: 11:08 AM Surgeon(s)/Proceduralist(s) and Cotton Weigher(s): Surgeon(s) and Role: * José Kulkarni MD - Primary Nurse Practitioner: Adry De La Vega APRN.NEWSPAPER OR PERIODICAL EDITOR REFERRING PHYSICIAN: Outpatient DEPT: [facility] PROVIDER: Taisha POS: [id number] ANESTHESIA: General ASA CLASS: 2 - mild DIAGNOSIS: symptomatic mixed hemorrhoids PROCEDURE: Examination Under Anesthesia, Hemorrhoidectomy - [id number] IVF: 800 EBL: 50 Specimens: right anterior, Right posterior, left lateral hemorrhoidal complexes ADDITIONAL DIAGNOSES: FINDINGS: 3 quadrants COMPLICATIONS: None PMHx - PAST MEDICAL HISTORY Diagnosis Date - Anxiety generalized anxiety AND panic disorder (diagnosed by PCP) - Chronic back pain mild scolosis and sciatica AND SI joint locks up; was seeing pain management, now sees PCP - GERD (gastroesophageal reflux disease) - Hemorrhoids - Hyperlipidemia 2011 - Hypertension - Marijuana use - Vertigo COMORBIDITIES - Psychiatric Post Op Occurrences - None Wound Classification - Clean Contaminated Operative note dictated in the dictation system. - [id number] José Kulkarni MD [facility] HISTORY PHYSICALon HISTORY PHYSICAL HNO ID: [id number] Author: José Kulkarni MD Service: General Surgery Author Type: Physician Type: HANDP Filed: 04/26/2022 8:53 AM Note Text: HISTORY AND PHYSICAL ? Indigo Meier 1975 ? ? REFERRING PHYSICIAN: Guillermo Sheffield MD ? CHIEF COMPLAINT: Consult ? HPI: The patient is a 45 year [...] and malleable as she has bowel movements. ? She has no family history of colon cancer. She has not undergone previous colonoscopy ? The patient is being seen by me today at the request of Dr. Guillermo Sheffield MD for my opinion and advice regarding symptomatic mixed hemorrhoids. ? She is scheduled the surgery but then canceled on 3 occasions. One because her child was sick, one because she was worried about surgery and the third time because she could not get out of work. ? She cancelled surgery last year. She states she is now ready for surgery. SHe is also noting reflux and progressive constipation ? PAST MEDICAL HISTORY PAST MEDICAL HISTORY Diagnosis Date - Anxiety ? ? generalized anxiety AND panic disorder (diagnosed by PCP) - Chronic back pain ? ? mild scolosis and sciatica AND SI joint locks up; was seeing pain management, now sees PCP - GERD (gastroesophageal reflux disease) ? - Hemorrhoids ? - Hyperlipidemia 2011 - Hypertension ? - Marijuana use ? - Vertigo ? ? ? PAST SURGICAL HISTORY PAST SURGICAL HISTORY Procedure Laterality Date - BREAST REDUCTION ? 07/2020 - CHOLECYSTECTOMY ? 2010 ? Cholecystectomy - LIG/TRNSXJ FLP TUBE ABDL/VAG APPR UNI/BI ? ? ? Tubal ligation ? ? ? CURRENT MEDICATIONS Current Outpatient Medications Medication Sig - fluticasone (FLONASE) 50 mcg/actuation nasal spray Use 2 Sprays in each nostril once daily. Rinse mouth after use. - simvastatin (ZOCOR) 10 mg tablet Take 1 tablet by mouth once daily. - Omeprazole Magnesium (PRILOSEC OTC) 20 mg tablet Take 1 tablet by mouth once daily. - albuterol HFA (PROVENTIL HFA, VENTOLIN HFA) 90 mcg/actuation inhaler Inhale 2 Puffs as instructed every 6 hours as needed. - metoprolol tartrate, short acting, (LOPRESSOR) 50 mg tablet Take 1 tablet by mouth twice daily. - levonorgestrel (MIRENA) 20 mcg/24 hours (5 yrs) 52 mg IUD 1 Each by INTRAUTERINE route as directed. - Cholecalciferol, Vitamin D3, 1,000 unit cap Take 1 capsule by mouth once daily. - peg 3350-Electrolytes (GOLYTELY) 236-22.74-6.74 -5.86 gram suspension Refer to printed prep instructions from your provider. ? Current Facility-Administered Medications Medication Dose Route Frequency - perflutren lipid microspheres 1.3 mL in NaCl (PF) 0.9% 10 mL injection (DEFINITY) INTRAVENOUS DIRECTED PRN - sodium chloride 0.9 % (flush) 10 mL (BD POSIFLUSH) 10 mL INTRAVENOUS DIRECTED PRN ? ? ALLERGIES: House Dust, Maple Flavor, and Seasonal Allergies ? PERSONAL HISTORY: SOCIAL HISTORY Social History ? Tobacco Use - Smoking status: Never Smoker - Smokeless tobacco: Never Used Vaping Use - Vaping Use: Never used Substance Use Topics - Alcohol use: No - Drug use: No ? ? Comment: positive drug screen for marijuana - last use 2015 ? FAMILY HISTORY: FAMILY HISTORY FAMILY HISTORY Problem Relation Age of Onset - Hypertension Mother ? - Hyperlipidemia Mother ? - None Father ? - other (Other) Father ? ? MVA - heart attack - Diabetes Brother ? - Hyperlipidemia Brother ? - Heart Brother ? - Asthma Son ? - Allergies Son ? - Allergies Son ? - Cancer Sister 41 ? cervical, ?lymph - Diabetes Sister ? - Heart Brother ? ? CAD-quadruple bypass, age 46 - Heart Brother ? ? CAD stent placement ? ? REVIEW OF SYMPTOMS: The review of systems data was entered by the nurse and reviewed by me ? There are no exam notes on file for this visit. PHYSICAL EXAMINATION: ? General: The patient is 44 year old female, well nourished, well hydrated in no acute distress. The patient is oriented to time, place, and person. ? VITALS: Blood pressure 126/94, pulse 87, temperature 36.6 ?C (97.8 ?F), height 160 cm (5' 3 ), weight 79.3 kg (174 lb 12.8 oz), last menstrual period 10/17/2020, SpO2 96 %. ? HEENT: Normal cephalic, ataumatic, pupils are equally round, sclera are anicteric, mucous membranes are moist, oropharynx is clear. Neck has no masses, asymmetry or lymphadenopathy. Thyroid is unremarkable. ? Respiratory: Clear to (more content not included)... Normal [facility] OPERATIVE NOon 04-26-2022 OPERATIVE NO HNO ID: [id number] Author: José Kulkarni MD Service: General Surgery Author Type: Physician Type: Operative Report Filed: 04/26/2022 3:43 PM Note Text: [place] - Operative Report INDIGO MEIER : 1975 AGE: 46. SEX: F PATIENT TYPE: A HOSP [facility] [place]: [facility] LOCATION: [facility] ATTENDING PHYSICIAN: José Kulkarni M.D. CSN NUMBER: [id number] DATE OF SURGERY/PROCEDURE: 04/26/2022 INCISION/PROCEDURE START TIME: 10:34 a.m. INCISION CLOSE/PROCEDURE END TIME: 11:08 a.m. PREOPERATIVE DIAGNOSIS: Symptomatic mixed hemorrhoids. POSTOPERATIVE DIAGNOSIS: Symptomatic hemorrhoids in the right anterior, right posterior, and left lateral hemorrhoidal complexes. SURGEON: José Kulkarni M.D. PARTS EXPEDITER: Adry De La Vega CMP. SURGERY/PROCEDURE: Examination under anesthesia and hemorrhoidectomy. ANESTHESIA: General endotracheal. LOG ID: [id number]. ANESTHESIOLOGIST: Dr. Nasreen Adam. ASA: 2. INTRAVENOUS FLUIDS: 800 mL. ESTIMATED BLOOD LOSS: 50. URINE OUTPUT: No catheter. FINDINGS: As described above. SPECIMENS: Right anterior, right posterior, and left lateral hemorrhoidal complex separately. Dibucaine-impregnated Gelfoam was left in the anal canal at the conclusion of the case. COMPLICATIONS: There were no complications. DESCRIPTION OF PROCEDURE: Sign-in was performed verifying patient, site, procedure, position, critical nursing information, and VTE and antibiotic prophylaxis. The patient had undergone colonoscopy a day before, so had undergone bowel prep, so there was no significant stool in the vault. She received 900 mg of clindamycin for antibiotic prophylaxis. Sequential pressure devices were placed. She was brought to the operative suite. Following induction of general anesthetic, she was transferred to the supine to the prone gracy-knife position with care being taken to avoid pressure on the pressure points. Following this, the perianal area was prepped and draped in usual fashion. Time-out was performed verifying patient, site, procedure, and position. Bidigital examination revealed a retroflex cervix. Palpation demonstrated the clip based on the clip placed the day before for a rectal polyp removed via snare and a 3 quadrant mixed hemorrhoids is noted. No other palpable abnormalities. The sphincter complex was felt to be intact. Following this, a single quadrant hemorrhoidectomy was performed marking the external anal and internal anal canal apices with a hemostat and grabbing the hemorrhoidal complex with a small Oliver. The outside anoderm was excised with a scalpel. A window was made between the hemorrhoidal complex and the sphincter complex with care being taken to avoid injury to the sphincter complex and then cautery was used to divide the anoderm up to the apex of the planned resection. The hemorrhoid was amputated and sat separately. A 2-0 chromic guazfb-ai-hzupi suture was placed below the apex and a running locking converted to simple suture was used to close the mucosal defect. This was performed for all 3 hemorrhoidal complexes. There was slight bleeding from the right procedure complex secured with a [id number] 2-0 chromic suture with good hemostasis, 1% lidocaine, 0.5% Marcaine was injected into the external anoderm at the sites of the incisions. Dibucaine impregnated Gelfoam was placed in the anal canal. A dressing was placed, held in place with mesh pants. The patient was returned to supine position with plans to extubate and bring the patient to recovery in stable condition. ATTESTATION: Adry De La Vega was my 1st custody assistant. She assisted in prepping, positioning, and was present if needed during the case. There were no surgeons or qualified residents available. José Kulkarni M.D. CECILIA:[id number] /[id number] Normal [facility] COLONOSCOPY DIAGNOSTICon [facility] EGD DIAGNOSTICon 04-25-2022 [facility] CBC W Auto Differential pane l (Bld)on 03-08-2022 Abs Immature Gran 0.03 k/uL <0.10 k/uL [facility] Basophils (Bld) [#/Vol] 10*3/uL <0.11 k/uL [facility] Basophils/100 WBC (Bld) 0.2 % [facility] Differential cell count method Nom (Bld) Auto [facility] Eosinophils (Bld) [#/Vol] 0.04 10*3/uL <0.46 k/uL [facility] Eosinophils/100 WBC (Bld) 0.4 % [facility] Erythrocyte distribution width (RBC) [Ratio] 13.3 % 11.5 - 15.0 % [facility] Hematocrit (Bld) [Volume fraction] 42.7 % 36.0 - 46.0 % [facility] Hemoglobin (Bld) [Mass/Vol] 13.8 g/dL 11.5 - 15.5 g/dL [facility] Immature Gran % 0.3 % [facility] Lymphocytes (Bld) [#/Vol] 2.91 10*3/uL 1.00 - 4.00 k/uL [facility] Lymphocytes/100 WBC (Bld) 25.7 % [facility] MCH (RBC) [Entitic mass] 28.9 pg 26.0 - 34.0 pg [facility] MCHC (RBC) [Mass/Vol] 32.3 g/dL 30.5 - 36.0 g/dL [facility] MCV (RBC) [Entitic vol] 89.5 fL 80.0 - 100.0 fL [facility] Monocytes (Bld) [#/Vol] 0.60 10*3/uL <0.87 k/uL [facility] Monocytes/100 WBC (Bld) 5.3 % [facility] Neutrophils (Bld) [#/Vol] 7.74 10*3/uL High 1.45 - 7.50 k/uL [facility] Neutrophils/100 WBC (Bld) 68.1 % [facility] Nucleated RBC (Bld) [#/Vol] 10*3/uL <0.01 k/uL [facility] Nucleated RBC/100 WBC (Bld) [Ratio] 0.0 /100 WBC [facility] Platelet mean volume (Bld) [Entitic vol] 10.8 fL 9.0 - 12.7 fL [facility] Platelets (Bld) [#/Vol] 294 10*3/uL 150 - 400 k/uL [facility] RBC (Bld) [#/Vol] 4.77 10*6/uL 3.90 - 5.2 0 m/uL [facility] WBC (Bld) [#/Vol] 11.34 10*3/uL High 3.70 - 11 .00 k/uL [facility] Comprehensive metabolic 2000 panelon 03-08-2022 Albumin [Mass/Vol] 4.2 g/dL 3.9 - 4.9 g/dL [facility] ALP [Catalytic activity/Vol] 76 U/L 34 - 123 U/L [facility] ALT [Catalytic activity/Vol] 9 U/L 7 - 38 U/L [facility] Anion gap [Moles/Vol] 14 mmol/L 9 - 18 mmol/L [facility] AST [Catalytic activity/Vol] 14 U/L 13 - 35 U/L [facility] Bilirubin [Mass/Vol] 0.3 mg/dL 0.2 - 1.3 mg/dL [facility] Calcium [Mass/Vol] 9.8 mg/dL 8.5 - 10. 2 mg/dL [facility] Chloride [Moles/Vol] 101 mmol/L 97 - 105 mmol/L [facility] CO2 [Moles/Vol] 22 mmol/L 22 - 30 mmol/L [facility] Creatinine [Mass/Vol] 0.52 mg/dL Low 0.58 - 0.96 mg/dL [facility] Estimated Glomerular Filtration Rate 118 mL/min/1.73m >=60 mL/min/1.73m [facility] Glucose [Mass/Vol] 118 mg/dL High 74 - 99 mg/dL [facility] Potassium [Moles/Vol] 3.5 mmol/L Low 3.7 - 5.1 mmol/L [facility] Protein [Mass/Vol] 7.1 g/dL 6.3 - 8.0 g/dL [facility] Sodium [Moles/Vol] 137 mmol/L 136 - 144 mmol/L [facility] Urea nitrogen [Mass/Vol] 13 mg/dL 7 - 21 mg/dL [facility] ESR Westergren method (Bld) [Velocity]on 03-08-2022 ESR (Bld) [Velocity] 8 mm/h 0 - 20 mm/hr [facility] LIPASE [facility] 03-08-2022 Lipase [Catalytic activity/Vol] 28 U/L 16 - 61 U/L [facility] TSH [facility] 03-08-2022 TSH Qn 1.090 m[IU]/L 0.270 - 4.200 mIU/L [facility] CMV IgM Qnon 01-27-2022 CMV IgM, Qual Negative Negative [facility] HEPATIC FUNCTION PNLon 01-27 Albumin [Mass/Vol] 4.4 g/dL 3.9 - 4.9 g/dL [facility] ALP [Catalytic activity/Vol] 187 U/L High 34 - 123 U/L [facility] ALT [Catalytic activity/Vol] 132 U/L High 7 - 38 U/L [facility] AST [Catalytic activity/Vol] 161 U/L High 13 - 35 U/L [facility] Bilirubin [Mass/Vol] 0.2 mg/dL 0.2 - 1.3 mg/dL [facility] Bilirubin.conjugat ed [Mass/Vol] mg/dL <0.2 mg/dL [facility] Protein [Mass/Vol] 7.7 g/dL 6.3 - 8.0 g/dL [facility] UA DIP, URINE (POC)on 2021 BILIRUBIN UA (POCT) Small Abnormal Negative [facility] CLARITY UA (POCT) Clear [facility] COLOR UA (POCT) Yellow [facility] GLUCOSE UA (POCT) Negative Negative mg/dL [facility] HEMOGLOBIN/BLOOD UA (POCT) Small Abnormal Negative [facility] KETONE UA (POCT) Negative Negative mg/dL [facility] LE[facility]A (POCT) Trace Abnormal Negative [facility] NITRITE UA (POCT) Negative Negative [facility] PH UA (POCT) 5.5 4.5 - 8.0 [facility] Protein Ql (U) Negative Negative mg/dL [facility] SPECIFIC GRAVITY UA (POCT) 1.020 1.005 - 1.030 [facility] UROBILINOGEN UA (POCT) 2.0 E.U./dL Abnormal Normal E.U./dL [facility] XR Elbow - right AP and Late ral and obliqueon 11-04-2020 IMPRESSION: Mild hypertrophic change along the lateral humeral condyle. Otherwise no radiographic evidence of acute abnormality. Linen Room Supervisor: [facility] MADISONVILLEJoey Transcribe Date/Time: Nov 04 2020 2:17P Dictated by : JOHNSON ONEAL MD This examination was interpreted and the report reviewed and electronically signed by: JOHNSON ONEAL MD on Nov 04 2020 2:19PM [facility] DIVISION OF RADIOLOGY * * *Final Report* * * DATE OF EXAM: Nov 04 2020 2:15PM WOX 5325 - XR ELBOW 3V AP/LAT/OTHER RT / PROCEDURE REASON: Elbow pain, right * * * * Physician Interpretation * * * * CLINICAL INDICATION: Elbow pain TECHNIQUE: 3 view radiographic study of the right elbow COMPARISON: Radiograph dated February 02, 2017 FINDINGS: No abnormal elevation of the anterior or posterior fat pad to suggest elbow joint effusion. No acute fracture or dislocation. Joint spaces preserved. Mild hypertrophic change along the lateral humeral condyle. DIVISION OF RADIOLOGY Provider, [facility] - 11/04/2020 * * *Final Report* * * DATE OF EXAM: Nov 04 2020 2:15PM WOX 5325 - XR ELBOW 3V AP/LAT/OTHER RT / PROCEDURE REASON: Elbow pain, right * * * * Physician Interpretation * * * * CLINICAL INDICATION: Elbow pain TECHNIQUE: 3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 ?Muscle strength testing revealed 5/5 BilaterallyThere was evidence for postural or action?Tremor. ?There was no??dysmetriaseen on the right?found on ywbqtr-atvu-mmhvex testing. ?Rapid alternatingmovements were normal bilaterally.??There was no evidence for sensory deficits. ?There was no?extinction onthe Right?with bilateral simultaneous stimuli.?OTHER RELEVANT LABS AND TESTS:Admission labs in process?Assessment/Plan42 year old woman with HTN, HPL, headaches, anxiety, vertigo, and chronicback pain with multiple spells in setting of recent EEG suggesting leftfrontal sharp waves. 3 types of spells; big ones that begin withdizziness that progress to staring, twitching, and unresponsiveness.Anxiety spells causing the pt to feel dizzi, light headed, andtachycardic, and spells with clusters of piercing R sided head pain.Admitted for diagnosis.?1. Admit for video-EEG monitoring for diagnosis to capture spells inquestion.2. On no home AED's; continue to keep pt off anti-seizure medications3. Seizure precautions4. DVT prophylaxis: SCD's?bilaterally AND Lovenox SQ daily5. 2 mg of Ativan for rescueSIGNATURE: Jamila Najera CNP PATIENT NAME: Indigo MeierDATE: November 22, 2017 : 1:11 PM PAGER/CONTACT #: [phone] [facility] ProgressNoteDate of Service: November 23, 2017[facility] NOTE OF PERSONAL INVOLVEMENT IN CAREPatient was?interviewed and examined by me on separate attending?roundsthis?pauline mccann with nurse practitioner, Jamila. I have reviewed the history,exam, diagnosis, and plan obtained and documented by the nursepractitioner as above. I performed my own eivn-yz-toaw assessment andpersonally participated in the allen components. The following commentsrevise or confirm these. I have discussed the case and management of thepatient's care with the care team.Clinical overnight update: Reports typical episode of dizziness and 'bigone' with confusion overnight. [facility] No other concerns or complaints. No headpains captured but reports these do not occur frequently?Pertinent exam: Normal neurological examinationData reviewed:Continuous video EEG recording was personally reviewed by myself and theresults of the evaluation to date are summarized below. Interictal findings: ?(pending review) non seen in preliminary review Ictal findings: 1E: 11/22 @ 1159, patient pushes button and continues texting on phone,reports she is anxious and 'feels like crap' answers questions and followscommands; no EEG or EKG change 2E: 11/22 @ 1549, patient presses button and reports being lightheadedand feeling 'weird', has headache, dry mouth, sits with eyes closed andhas apparent unresponsiveness, then answers slowly and follows commandsslowly, taking deep breaths, reports feeling confused and typical 'bigone'; no EEG or EKG change 3E: 11/22 @ 1642, patient on phone pressed button and reports feelingdizzy, interacts normally, presses button again at 1652 and holding headreports she is 'burning up' no EEG or EKG change??IMPRESSION:Patient is a 42-year-old right-handed woman with hypertension,dyslipidemia, chronic back pain, migraine, anxiety, marijuana use,vertigo, and history of tubal ligation who is admitted for diagnosticvideo EEG for episodes concerning for possible seizure. Prior EEG withrare left frontal sharp wave. MRI ordered and pending. Risk factors forepilepsy include mild concussions without loss of consciousness.Primary epileptologist: Dr. Benton Date: 11/22/2017?Seizure types: Type A: ?big ones? dizzy feeling, blurred vision, lose control of herbody, unresponsive but without clear loss of consciousness (can hearpeople), limp, twitching/shaking of the hands, feels ?numb all over? withheadache, triggered by stress, lasting 5 minutes, occurring monthly Type B: ?anxiety? dizzy, light headed, heart racing, triggered bystressful situation, can last hours, near daily Typce C: Right head pain few minutes in clustersAEDs Home none Here none Prior nonePLAN:? Continuous video-EEG monitoring continues to capture episodes of concern? no home anti-epileptic medications, plan to start topiramate ondischarge, unless evidence of epilepsy will utilize migraine dosage 25 mgdaily for 2 weeks then increase to 50 mg daily.? Based on episode captured to date consistent with diagnosis of PNES willoffer cogntive behavioral therapy with Dr. Miranda on discharge.? Activation procedures: hyperventilation, photic stimulation? Seizure precautions? Rescue plan in place: 1-2mg of lorazepam (Ativan) IV as needed forprolonged motor epileptic seizure greater than 3 minutes and or 3rd motorepileptic seizure within 8 hours.? Discharge planning pending capturing episodes of concern? Follow-up after discharge with Dr. Summers as scheduled? MRI ordered but not yet performed? The treatment plan was discussed in detail with the patient. Time forquestions was given and answers were discussed. The patient agreed withthe treatment plan.?Care Coordination: The majority of the visit was spent counseling and/orcoordinating care for the patient. Awde-wm-blxk time was 25 minutes. Anadditional 20 mins spent in reviewing EMR, imaging, video EEG recording.Kennedy Craig Staff PhysicianWhite Hospital Epilepsy CenterPersonal Pager and Cell akrneda Office Office: [phone] urgent EEG review, call the Epilepsy Continuous Monitoring Unit (ECMU)at [facility] [phone].For overnight issues, 7pm to 7am Sun [place] [phone]; Sunday please page epilepsy staffon call.For night coverage of emergencies, call [facility] pager [phone].However, please feel free to contact me personally at any time if thereare questions regarding my patient. Normal [facility] Hemogram/Diffon 11-22-2017 Abs Immature Grans 0.02 thou/cmm Normal 0.00-0.05 [facility] Comment on above: Performed By: #### C BCD1 ####[place] [address] Abs. Baso 0.03 thou/cmm Normal 0.01-0.08 [facility] Comment on above: Performed By: #### C BCD1 ####[place] [address] Abs. Garza 0.32 thou/cmm Normal 0.27-0.70 [facility] Comment on above: Performed By: #### C BCD1 ####[place] [address] Abs. Neut 3.48 thou/cmm Normal 1.56-6.13 [facility] Comment on above: Performed By: #### C BCD1 ####[place] [address] Basophils/100 WBC Auto (Bld) 0.5 % Normal [facility] Comment on above: Performed By: #### C BCD1 ####[place] [address] Eosinophils 0.10 thou/cmm Normal 0.00-0.31 [facility] Comment on above: Performed By: #### C BCD1 ####[place] [address] Eosinophils/100 leukocytes 1.8 % Normal [facility] Comment on above: Performed By: #### C BCD1 ####[place] [address] Erythrocyte distribution width Auto Ratio (RBC) 13.3 % Normal 11.7-14.4 [facility] Comment on above: Performed By: #### C BCD1 ####[place] [address] Erythrocytes (RBC) 3.51 mil/cmm Low 3.93-5.22 [facility] Comment on above: Performed By: #### C BCD1 ####[place] [address] Hematocrit (HCT) 32.3 % Low 34.1-44.9 [facility] Comment on above: Performed By: #### C BCD1 ####[place] [address] Hemoglobin mass conc (Bld) 10.5 g/dL Low 11.2-15.7 [facility] Comment on above: Performed By: #### C BCD1 ####[place] [address] Immature Grans 0.40 % Normal [facility] Comment on above: Performed By: #### C BCD1 ####[place] [address] Lymphocytes 1.59 thou/cmm Normal 1.18-3.74 [facility] Comment on above: Performed By: #### C BCD1 ####[place] [address] Lymphocytes/100 leukocytes 28.7 % Normal [facility] Comment on above: Performed By: #### C BCD1 ####[place] [address] MCH 29.9 pg Normal 25.6-32.2 [facility] Comment on above: Performed By: #### C BCD1 ####[place] [id number] MCHC mass conc (RBC) 32.5 % Normal 31.6-34.8 [facility] Comment on above: Performed By: #### C BCD1 ####[address] [address] MCV 92.0 fL Normal 79.4-94.8 [facility] Comment on above: Performed By: #### C BCD1 ####[address] [address] Monocytes/100 leukocytes 5.8 % Normal [facility] Comment on above: Performed By: #### C BCD1 ####[place] [address] Platelet mean volume (PMV) 10.4 fL Normal 9.4-12.3 [facility] Comment on above: Performed By: #### C BCD1 ####[place] [address] Platelets 196 thou/cmm Normal 182-369 [facility] Comment on above: Performed By: #### C BCD1 ####[place] [address] RDW SD 45.1 fl Normal 36.4-46.3 [facility] Comment on above: Performed By: #### C BCD1 ####[address] [address] Seg Neutrophil 62.8 % Normal [facility] Comment on above: Performed By: #### C BCD1 ####[place] [address] WBC (Leukocytes) 5.54 thou/cmm Normal 3.98-10.04 [facility] Comment on above: Performed By: #### C BCD1 ####[place] [id number] MDRD GFRon 11-22-2017 eGFR (non-black) mL/min/{1.73_m2} Normal >60mL/m in/1.73m 2 [facility] Comment on above: Result Comment: If t he patient is , multiply the result by 1.210. Performed By: #### G FR ####[address] [address] Magnesium Bloodon 11-22-2017 Magnesium 2.0 mg/dL Normal 1.6-2.6 [facility] Comment on above: Performed By: #### M AG ####[place] [id number] NURSING PROGon 11-22-2017 NURSING PROG HNO ID: [id number] thor: Nitza DejesusRn) ABIMAEL De Souzaervice: NursingAuthor Type: Registered NurseType: Nursing Progress NoteFiled: 11/22/2017 5:21 PMNote Text: Nursing Progress NotePatient Name: Indigo MeierMRN: [id number] Location: [place] [address]-*__ Daily Note:Patient hit seizure button again for the same feeling ofdizziness and feeling flushed. No change other than feeling of dizzy. Thisevent was clustered with the previous button push of 16:42. These eventsare both being considered as '3e'. Will continue to monitor and assess.This note was completed by: Nitza De Souza RN Normal [facility] NURSING PROG HNO ID: [id number] thor: Davin Elliottervice: NursingAuthor Type: Registered NurseType: Nursing Progress NoteFiled: 11/22/2017 5:02 PMNote Text: Seizure NotePatient Name: Indigo MeierMRN: [id number] Location: [place] [address]-*__ Time seizure started: approx 1650Length of seizure: approx 1 minuteIf there was an aura then describe: Pt stated at approx 1630 that she wasdizzyIf motor activity was present then describe: appeared confused. ScanningroomDid the seizure evolve to generalized tonic-conic: noIf the patient bit their tongue indicate location: noIf postictal behavior was present describe: confusion.Patient description of event: stated felt loopy See tapeInterventions taken: interview, safetyThis note was completed by: Davin Rea RN [facility] NURSING PROG HNO ID: [id number] thor: ABIMAEL Núñez Rnervice: NursingAuthor Type: Registered NurseType: Nursing Progress NoteFiled: 11/22/2017 4:06 PMNote Text: Seizure NotePatient Name: Indigo MeierMRN: [id number] Location: [place] [address] [address]__ Time seizure started: 1549Length of seizure: n/aIf there was an aura then describe: feeling anxious. And restlessIf motor activity was present then describe: patient shaking, turnedherself on right side.Did the seizure evolve to generalized tonic-conic: n/aIf the patient bit their tongue indicate location:n/aIf postictal behavior was present describe: patient confused, was not ableto open eyes or point to door. Patient said she felt dizzy and lightheaded, RN helped her lie down in bed. Patient was able to followcommands.Patient description of event: Patient does not remember eventInterventions taken: continue to monitor and assess.This note was completed by: Nitza De Souza RN [facility] NURSING PROG HNO ID: [id number] thor: ABIMAEL Núñez Rnervice: NursingAuthor Type: Registered NurseType: Nursing Progress NoteFiled: 11/22/2017 12:54 PMNote Text: Seizure NotePatient Name: Indigo MeierMRN: [id number] Location: [place] [address] [address]-*__ Time seizure started: 11:59Length of seizure: n/aIf there was an aura then describe: n/aIf motor activity was present then describe: n/aDid the seizure evolve to generalized tonic-conic: n/aIf the patient bit their tongue indicate location: n/aIf postictal behavior was present describe: n/aPatient description of event: Patient started feeling anxious and felttrapped in the bed.Interventions taken:Continue to monitor and assessThis note was completed by: Nitza De Souza RN Normal [facility] Phosphorus Bloodon 8 Phosphate 2.7 mg/dL Normal 2.5-4.9 [facility] Comment on above: Performed By: #### P HOS ####[place] [address] Protimeon 11-22-2017 INR Coag RelTime (PPP) 0.92 {INR} Normal [facility] Comment on above: Result Comment: Dick dard Therapy 2.0-3.0High Dose 2.5-3.5 Performed By: #### P T ####[place] [address] Prothrombin time (PT) Coag time (PPP) 9.9 s Normal 9.3-11.9 [facility] Comment on above: Performed By: #### P T ####[place] [address] TSH, 3rd generationon 2017 TSH, 3rd generation 0.476 uIU/mL Normal 0.358-3.740 [facility] Comment on above: Performed By: #### T SH3 ####[place] [address] Vital Signs Date Time Vital Sign Value Performing Clinician Sonu puckett 07-16-2024 13:11-0400 Body mass index (BMI) [Ratio] 30.5 kg/m2 Karina Chandler GAME PROGRAMMER.NEWSPAPER OR PERIODICAL EDITOR Work Phone: [facility] 07-16-2024 13:11-0400 Body temperature 97.59 [degF] Karina Chandler GAME PROGRAMMER.NEWSPAPER OR PERIODICAL EDITOR Work Phone: [facility] 07-16-2024 13:11-0400 Body weight 78.1 kg Karina Chandler GAME PROGRAMMER.NEWSPAPER OR PERIODICAL EDITOR Work Phone: [facility] 07-16-2024 13:11-0400 Diastolic blood pressure 98 mm[Hg] Karina Chandler GAME PROGRAMMER.NEWSPAPER OR PERIODICAL EDITOR Work Phone: [facility] 07-16-2024 13:11-0400 Heart rate 80 /min Karina Chandler GAME PROGRAMMER.NEWSPAPER OR PERIODICAL EDITOR Work Phone: [facility] 07-16-2024 13:11-0400 Respiratory rate 18 /min Karina Chandler GAME PROGRAMMER.NEWSPAPER OR PERIODICAL EDITOR Work Phone: [facility] 07-16-2024 13:11-0400 SaO2% (BldA) [Mass fraction] 96 % Karina Chandler GAME PROGRAMMER.NEWSPAPER OR PERIODICAL EDITOR Work Phone: [facility] 07-16-2024 13:11-0400 Systolic blood pressure 140 mm[Hg] Karina Chandler GAME PROGRAMMER.NEWSPAPER OR PERIODICAL EDITOR Work Phone: [facility] 06-09-2024 13:45-0400 Body mass index (BMI) [Ratio] 30.23 kg/m2 Yohannes Michael GAME PROGRAMMER.NEWSPAPER OR PERIODICAL EDITOR Work Phone: [facility] 06-09-2024 13:45-0400 Body temperature 97.59 [degF] Yohannes Michael GAME PROGRAMMER.NEWSPAPER OR PERIODICAL EDITOR Work Phone: [facility] 06-09-2024 13:45-0400 Body weight 77.4 kg Yohannes Michael GAME PROGRAMMER.NEWSPAPER OR PERIODICAL EDITOR Work Phone: [facility] 06-09-2024 13:45-0400 Diastolic blood pressure 94 mm[Hg] Yohannes Pendlebury GAME PROGRAMMER.NEWSPAPER OR PERIODICAL EDITOR Work Phone: [facility] 06-09-2024 13:45-0400 Heart rate 103 /min Yohannes Pendlebury GAME PROGRAMMER.NEWSPAPER OR PERIODICAL EDITOR Work Phone: [facility] 06-09-2024 13:45-0400 Respiratory rate 21 /min Yohannes Pendlebury GAME PROGRAMMER.NEWSPAPER OR PERIODICAL EDITOR Work Phone: [facility] 06-09-2024 13:45-0400 SaO2% (BldA) [Mass fraction] 96 % Yohannes Pendlebury GAME PROGRAMMER.NEWSPAPER OR PERIODICAL EDITOR Work Phone: [facility] 06-09-2024 13:45-0400 Systolic blood pressure 130 mm[Hg] Yohannes Pendlebury GAME PROGRAMMER.NEWSPAPER OR PERIODICAL EDITOR Work Phone: [facility] 05-21-2024 14:52-0400 Body mass index (BMI) [Ratio] 29.94 kg/m2 Aniya Haury GAME PROGRAMMER.NEWSPAPER OR PERIODICAL EDITOR Work Phone: [facility] 05-21-2024 14:52-0400 Body weight 76.66 kg Aniya Haury GAME PROGRAMMER.NEWSPAPER OR PERIODICAL EDITOR Work Phone: [facility] 05-21-2024 14:52-0400 Diastolic blood pressure 80 mm[Hg] Aniya Haury GAME PROGRAMMER.NEWSPAPER OR PERIODICAL EDITOR Work Phone: [facility] 05-21-2024 14:52-0400 Heart rate 82 /min Aniya Haury GAME PROGRAMMER.NEWSPAPER OR PERIODICAL EDITOR Work Phone: [facility] 05-21-2024 14:52-0400 Respiratory rate 14 /min Aniya Haury GAME PROGRAMMER.NEWSPAPER OR PERIODICAL EDITOR Work Phone: [facility] 05-21-2024 14:52-0400 SaO2% (BldA) [Mass fraction] 97 % Aniya Haury GAME PROGRAMMER.NEWSPAPER OR PERIODICAL EDITOR Work Phone: [facility] 05-21-2024 14:52-0400 Systolic blood pressure 114 mm[Hg] Aniya Haury GAME PROGRAMMER.NEWSPAPER OR PERIODICAL EDITOR Work Phone: [facility] 05-20-2024 13:39-0400 Body height 160 cm Clark Nadira GAME PROGRAMMER.NEWSPAPER OR PERIODICAL EDITOR Work Phone: [facility] 05-20-2024 13:39-0400 Body mass index (BMI) [Ratio] 29.88 kg/m2 Clark Nadira GAME PROGRAMMER.NEWSPAPER OR PERIODICAL EDITOR Work Phone: [facility] 05-20-2024 13:39-0400 Body weight 76.5 kg Clark Nadira GAME PROGRAMMER.NEWSPAPER OR PERIODICAL EDITOR Work Phone: [facility] 05-20-2024 13:39-0400 Diastolic blood pressure 77 mm[Hg] Clark Nadira GAME PROGRAMMER.NEWSPAPER OR PERIODICAL EDITOR Work Phone: [facility] 05-20-2024 13:39-0400 Heart rate 62 /min Clark Nadira GAME PROGRAMMER.NEWSPAPER OR PERIODICAL EDITOR Work Phone: [facility] 05-20-2024 13:39-0400 Systolic blood pressure 126 mm[Hg] Clrak Nadira GAME PROGRAMMER.NEWSPAPER OR PERIODICAL EDITOR Work Phone: [facility] 04-28-2024 10:44-0400 Body mass index (BMI) [Ratio] 31.06 kg/m2 Aniya Haury GAME PROGRAMMER.NEWSPAPER OR PERIODICAL EDITOR Work Phone: [facility] 04-28-2024 10:44-0400 Body weight 78.02 kg Aniya Haury GAME PROGRAMMER.NEWSPAPER OR PERIODICAL EDITOR Work Phone: [facility] 04-28-2024 10:44-0400 Diastolic blood pressure 84 mm[Hg] Aniya Haury GAME PROGRAMMER.NEWSPAPER OR PERIODICAL EDITOR Work Phone: [facility] 04-28-2024 10:44-0400 Heart rate 72 /min Aniya Haury GAME PROGRAMMER.NEWSPAPER OR PERIODICAL EDITOR Work Phone: [facility] 04-28-2024 10:44-0400 Respiratory rate 16 /min Aniya Haury GAME PROGRAMMER.NEWSPAPER OR PERIODICAL EDITOR Work Phone: [facility] 04-28-2024 10:44-0400 SaO2% (BldA) [Mass fraction] 97 % Aniya Haury GAME PROGRAMMER.NEWSPAPER OR PERIODICAL EDITOR Work Phone: [facility] 04-28-2024 10:44-0400 Systolic blood pressure 124 mm[Hg] Aniya Ramírez GAME PROGRAMMER.NEWSPAPER OR PERIODICAL EDITOR Work Phone: [facility] 03-13-2024 10:49-0400 Body mass index (BMI) [Ratio] 30.33 kg/m2 Mignon Suppan GAME PROGRAMMER.DIRECTOR TARGETED MARKETING Work Phone: [facility] 03-13-2024 10:49-0400 Body weight 76.2 kg Mignon Suppan GAME PROGRAMMER.DIRECTOR TARGETED MARKETING Work Phone: [facility] 03-13-2024 10:49-0400 Diastolic blood pressure 84 mm[Hg] Mignon Suppan GAME PROGRAMMER.DIRECTOR TARGETED MARKETING Work Phone: [facility] 03-13-2024 10:49-0400 Heart rate 71 /min Mignon Suppan GAME PROGRAMMER.DIRECTOR TARGETED MARKETING Work Phone: [facility] 03-13-2024 10:49-0400 Respiratory rate 16 /min Mignon Suppan GAME PROGRAMMER.DIRECTOR TARGETED MARKETING Work Phone: [facility] 03-13-2024 10:49-0400 SaO2% (BldA) [Mass fraction] 97 % Mignon Suppan GAME PROGRAMMER.DIRECTOR TARGETED MARKETING Work Phone: [facility] 03-13-2024 10:49-0400 Systolic blood pressure 140 mm[Hg] Mignon Suppan GAME PROGRAMMER.DIRECTOR TARGETED MARKETING Work Phone: [facility] 03-05-2024 12:47-0400 Body mass index (BMI) [Ratio] 30.45 kg/m2 Karina Chandler GAME PROGRAMMER.NEWSPAPER OR PERIODICAL EDITOR Work Phone: [facility] 03-05-2024 12:47-0400 Body temperature 97.2 [degF] Karina Chandler GAME PROGRAMMER.NEWSPAPER OR PERIODICAL EDITOR Work Phone: [facility] 03-05-2024 12:47-0400 Body weight 76.5 kg Karina Chandler GAME PROGRAMMER.NEWSPAPER OR PERIODICAL EDITOR Work Phone: [facility] 03-05-2024 12:47-0400 Diastolic blood pressure 98 mm[Hg] Karina Chandler GAME PROGRAMMER.NEWSPAPER OR PERIODICAL EDITOR Work Phone: [facility] 03-05-2024 12:47-0400 Heart rate 89 /min Karina Chandler GAME PROGRAMMER.NEWSPAPER OR PERIODICAL EDITOR Work Phone: [facility] 03-05-2024 12:47-0400 Respiratory rate 21 /min Karina Chandler GAME PROGRAMMER.NEWSPAPER OR PERIODICAL EDITOR Work Phone: [facility] 03-05-2024 12:47-0400 SaO2% (BldA) [Mass fraction] 98 % Karina Chandler GAME PROGRAMMER.NEWSPAPER OR PERIODICAL EDITOR Work Phone: [facility] 03-05-2024 12:47-0400 Systolic blood pressure 148 mm[Hg] Karina Chandler GAME PROGRAMMER.NEWSPAPER OR PERIODICAL EDITOR Work Phone: [facility] 02-26-2024 10:15-0400 Body mass index (BMI) [Ratio] 31.17 kg/m2 Dwain Hawkins APRN.NEWSPAPER OR PERIODICAL EDITOR Work Phone: [facility] 02-26-2024 10:15-0400 Body temperature 97 [degF] Dwain Hawkins APRN.NEWSPAPER OR PERIODICAL EDITOR Work Phone: [facility] 02-26-2024 10:15-0400 Body weight 78.3 kg Dwain Hawkins APRN.NEWSPAPER OR PERIODICAL EDITOR Work Phone: [facility] 02-26-2024 10:15-0400 Diastolic blood pressure 119 mm[Hg] Dwain Hawkins APRN.NEWSPAPER OR PERIODICAL EDITOR Work Phone: [facility] 02-26-2024 10:15-0400 Heart rate 66 /min Dwain Hawkins APRN.NEWSPAPER OR PERIODICAL EDITOR Work Phone: [facility] 02-26-2024 10:15-0400 Respiratory rate 18 /min Dwain Hawkins APRN.NEWSPAPER OR PERIODICAL EDITOR Work Phone: [facility] 02-26-2024 10:15-0400 SaO2% (BldA) [Mass fraction] 98 % Dwain Hawkins APRN.NEWSPAPER OR PERIODICAL EDITOR Work Phone: [facility] 02-26-2024 10:15-0400 Systolic blood pressure 195 mm[Hg] Dwain Hawkins APRN.NEWSPAPER OR PERIODICAL EDITOR Work Phone: [facility] 01-30-2024 13:54-0400 Body mass index (BMI) [Ratio] 30.89 kg/m2 John Zaragoza MD Work Phone: [facility] 01-30-2024 13:54-0400 Body temperature 98.1 [degF] John Zaragoza MD Work Phone: [facility] 01-30-2024 13:54-0400 Body weight 77.6 kg John Zaragoza MD Work Phone: [facility] 01-30-2024 13:54-0400 Diastolic blood pressure 100 mm[Hg] John Zaragoza MD Work Phone: [facility] 01-30-2024 13:54-0400 Heart rate 67 /min John Zaragoza MD Work Phone: [facility] 01-30-2024 13:54-0400 Respiratory rate 20 /min John Zaragoza MD Work Phone: [facility] 01-30-2024 13:54-0400 SaO2% (BldA) [Mass fraction] 100 % John Zaragoza MD Work Phone: [facility] 01-30-2024 13:54-0400 Systolic blood pressure 160 mm[Hg] John Zaragoza MD Work Phone: [facility] 01-07-2024 08:46-0400 Diastolic blood pressure 98 mm[Hg] Mignon Orozco GAME PROGRAMMER.DIRECTOR TARGETED MARKETING Work Phone: [facility] 01-07-2024 08:46-0400 Systolic blood pressure 146 mm[Hg] Mignon Suppan GAME PROGRAMMER.DIRECTOR TARGETED MARKETING Work Phone: [facility] 01-07-2024 08:42-0400 Body height 158.5 cm Mignon Orozco GAME PROGRAMMER.DIRECTOR TARGETED MARKETING Work Phone: [facility] 01-07-2024 08:42-0400 Body weight 78.11 kg Mignon Suppan GAME PROGRAMMER.DIRECTOR TARGETED MARKETING Work Phone: [facility] 01-07-2024 08:42-0400 Heart rate 72 /min Mignon Suppan GAME PROGRAMMER.DIRECTOR TARGETED MARKETING Work Phone: [facility] 01-07-2024 08:42-0400 Respiratory rate 16 /min Mignon Suppan GAME PROGRAMMER.DIRECTOR TARGETED MARKETING Work Phone: [facility] 01-04-2024 13:27-0400 Body temperature 98.6 [degF] Jessica Praisler-Wood GAME PROGRAMMER.NEWSPAPER OR PERIODICAL EDITOR Work Phone: [facility] 01-04-2024 13:27-0400 Body weight 75.75 kg Jessica Praisler-Wood GAME PROGRAMMER.NEWSPAPER OR PERIODICAL EDITOR Work Phone: [facility] 01-04-2024 13:27-0400 Diastolic blood pressure 126 mm[Hg] Jessica Praisler-Wood GAME PROGRAMMER.NEWSPAPER OR PERIODICAL EDITOR Work Phone: [facility] 01-04-2024 13:27-0400 Heart rate 59 /min Jessica Praisler-Wood GAME PROGRAMMER.NEWSPAPER OR PERIODICAL EDITOR Work Phone: [facility] 01-04-2024 13:27-0400 Respiratory rate 18 /min Jessica Praisler-Wood GAME PROGRAMMER.NEWSPAPER OR PERIODICAL EDITOR Work Phone: [facility] 01-04-2024 13:27-0400 SaO2% (BldA) [Mass fraction] 99 % Jessica Praisler-Wood GAME PROGRAMMER.NEWSPAPER OR PERIODICAL EDITOR Work Phone: [facility] 01-04-2024 13:27-0400 Systolic blood pressure 195 mm[Hg] Jessica Praisler-Wood GAME PROGRAMMER.NEWSPAPER OR PERIODICAL EDITOR Work Phone: [facility] 12-17-2023 11:36-0400 Body weight 75.75 kg Aniya Ramírez GAME PROGRAMMER.NEWSPAPER OR PERIODICAL EDITOR Work Phone: [facility] 12-17-2023 11:36-0400 Diastolic blood pressure 80 mm[Hg] Aniya Ramírez GAME PROGRAMMER.NEWSPAPER OR PERIODICAL EDITOR Work Phone: [facility] 12-17-2023 11:36-0400 Systolic blood pressure 110 mm[Hg] Aniya Strongury GAME PROGRAMMER.NEWSPAPER OR PERIODICAL EDITOR Work Phone: [facility] 12-07-2023 09:03-0500 Body temperature 97.3 [degF] Jessica Praisler-Wood GAME PROGRAMMER.NEWSPAPER OR PERIODICAL EDITOR Work Phone: [facility] 12-07-2023 09:03-0500 Body weight 76 kg Jessica Praisler-Wood GAME PROGRAMMER.NEWSPAPER OR PERIODICAL EDITOR Work Phone: [facility] 12-07-2023 09:03-0500 Diastolic blood pressure 90 mm[Hg] Jessica Praisler-Wood GAME PROGRAMMER.NEWSPAPER OR PERIODICAL EDITOR Work Phone: [facility] 12-07-2023 09:03-0500 Heart rate 62 /min Jessica Praisler-Wood GAME PROGRAMMER.NEWSPAPER OR PERIODICAL EDITOR Work Phone: [facility] 12-07-2023 09:03-0500 Respiratory rate 18 /min Jessica Praisler-Wood GAME PROGRAMMER.NEWSPAPER OR PERIODICAL EDITOR Work Phone: [facility] 12-07-2023 09:03-0500 SaO2% (BldA) [Mass fraction] 99 % Jessica Praisler-Wood GAME PROGRAMMER.NEWSPAPER OR PERIODICAL EDITOR Work Phone: [facility] 12-07-2023 09:03-0500 Systolic blood pressure 134 mm[Hg] Jessica Praisler-Wood GAME PROGRAMMER.NEWSPAPER OR PERIODICAL EDITOR Work Phone: [facility] 11-28-2023 09:07-0500 Body temperature 98.1 [degF] Krislyn Aberegg PA Work Phone: [facility] 11-28-2023 09:07-0500 Body weight 77.11 kg Krislyn Aberegg PA Work Phone: [facility] 11-28-2023 09:07-0500 Diastolic blood pressure 114 mm[Hg] Krislyn Aberegg PA Work Phone: [facility] 11-28-2023 09:07-0500 Heart rate 72 /min Krislyn Aberegg PA Work Phone: [facility] 11-28-2023 09:07-0500 SaO2% (BldA) [Mass fraction] 95 % Krislyn Aberegg PA Work Phone: [facility] 11-28-2023 09:07-0500 Systolic blood pressure 157 mm[Hg] Krislyn Aberegg PA Work Phone: [facility] 07-26-2023 13:29-0400 Body temperature 97.2 [degF] Yeison Athy PA-C Work Phone: [facility] 07-26-2023 13:29-0400 Body weight 75.75 kg Yeison Athy PA-C Work Phone: [facility] 07-26-2023 13:29-0400 Diastolic blood pressure 100 mm[Hg] Yeison Athy PA-C Work Phone: [facility] 07-26-2023 13:29-0400 Heart rate 65 /min Yeison Athy PA-C Work Phone: [facility] 07-26-2023 13:29-0400 Respiratory rate 22 /min Yeison Athy PA-C Work Phone: [facility] 07-26-2023 13:29-0400 SaO2% (BldA) [Mass fraction] 99 % Yeison Athy PA-C Work Phone: [facility] 07-26-2023 13:29-0400 Systolic blood pressure 160 mm[Hg] Yeison Athy PA-C Work Phone: [facility] 07-18-2023 17:55-0400 Body temperature 98.4 [degF] Yeison Athy PA-C Work Phone: [facility] 07-18-2023 17:55-0400 Body weight 75.57 kg Yeison Athy PA-C Work Phone: [facility] 07-18-2023 17:55-0400 Diastolic blood pressure 84 mm[Hg] Yeison Athy PA-C Work Phone: [facility] 07-18-2023 17:55-0400 Heart rate 85 /min Yeison Athy PA-C Work Phone: [facility] 07-18-2023 17:55-0400 Respiratory rate 18 /min Yeison Athy PA-C Work Phone: [facility] 07-18-2023 17:55-0400 SaO2% (BldA) [Mass fraction] 97 % Yeison Athy PA-C Work Phone: [facility] 07-18-2023 17:55-0400 Systolic blood pressure 138 mm[Hg] Yeison Athy PA-C Work Phone: [facility] 07-11-2023 12:14-0400 Body temperature 97.5 [degF] Jessica Praisler-Wood GAME PROGRAMMER.NEWSPAPER OR PERIODICAL EDITOR Work Phone: [facility] 07-11-2023 12:14-0400 Body weight 75.66 kg Jessica Praisler-Wood GAME PROGRAMMER.NEWSPAPER OR PERIODICAL EDITOR Work Phone: [facility] 07-11-2023 12:14-0400 Diastolic blood pressure 92 mm[Hg] Jessica Praisler-Wood GAME PROGRAMMER.NEWSPAPER OR PERIODICAL EDITOR Work Phone: [facility] 07-11-2023 12:14-0400 Heart rate 69 /min Jessica Praisler-Wood GAME PROGRAMMER.NEWSPAPER OR PERIODICAL EDITOR Work Phone: [facility] 07-11-2023 12:14-0400 Respiratory rate 21 /min Jessica Praisler-Wood GAME PROGRAMMER.NEWSPAPER OR PERIODICAL EDITOR Work Phone: [facility] 07-11-2023 12:14-0400 SaO2% (BldA) [Mass fraction] 98 % Jessica Praisler-Wood GAME PROGRAMMER.NEWSPAPER OR PERIODICAL EDITOR Work Phone: [facility] 07-11-2023 12:14-0400 Systolic blood pressure 148 mm[Hg] Jessica Praisler-Wood GAME PROGRAMMER.NEWSPAPER OR PERIODICAL EDITOR Work Phone: [facility] 05-29-2023 13:01-0400 Body weight 76.2 kg Jennifer Haagen GAME PROGRAMMER.NEWSPAPER OR PERIODICAL EDITOR Work Phone: [facility] 05-29-2023 13:01-0400 Diastolic blood pressure 104 mm[Hg] Jennifer Haagen GAME PROGRAMMER.NEWSPAPER OR PERIODICAL EDITOR Work Phone: [facility] 05-29-2023 13:01-0400 Heart rate 74 /min Jennifer Haagen GAME PROGRAMMER.NEWSPAPER OR PERIODICAL EDITOR Work Phone: [facility] 05-29-2023 13:01-0400 Respiratory rate 16 /min Jennifer Haagen GAME PROGRAMMER.NEWSPAPER OR PERIODICAL EDITOR Work Phone: [facility] 05-29-2023 13:01-0400 Systolic blood pressure 160 mm[Hg] Jennifer Haagen GAME PROGRAMMER.NEWSPAPER OR PERIODICAL EDITOR Work Phone: [facility] 05-18-2023 09:04-0400 Body weight 77.11 kg Indigo Candelario GAME PROGRAMMER.NEWSPAPER OR PERIODICAL EDITOR Work Phone: [facility] 05-18-2023 09:04-0400 Diastolic blood pressure 92 mm[Hg] Indigo Candelario GAME PROGRAMMER.NEWSPAPER OR PERIODICAL EDITOR Work Phone: [facility] 05-18-2023 09:04-0400 Systolic blood pressure 158 mm[Hg] Indigo Candelario GAME PROGRAMMER.NEWSPAPER OR PERIODICAL EDITOR Work Phone: [facility] 03-20-2023 13:24-0400 Body temperature 97.81 [degF] Davide Santiago GAME PROGRAMMER.NEWSPAPER OR PERIODICAL EDITOR Work Phone: [facility] 03-20-2023 13:24-0400 Body weight 78.93 kg Davide Santiago GAME PROGRAMMER.NEWSPAPER OR PERIODICAL EDITOR Work Phone: [facility] 03-20-2023 13:24-0400 Diastolic blood pressure 86 mm[Hg] Davide Santiago GAME PROGRAMMER.NEWSPAPER OR PERIODICAL EDITOR Work Phone: [facility] 03-20-2023 13:24-0400 Heart rate 71 /min Davide Santiago GAME PROGRAMMER.NEWSPAPER OR PERIODICAL EDITOR Work Phone: [facility] 03-20-2023 13:24-0400 Respiratory rate 18 /min Davide Jack GAME PROGRAMMER.NEWSPAPER OR PERIODICAL EDITOR Work Phone: [facility] 03-20-2023 13:24-0400 SaO2% (BldA) [Mass fraction] 99 % Davide Santiago GAME PROGRAMMER.NEWSPAPER OR PERIODICAL EDITOR Work Phone: [facility] 03-20-2023 13:24-0400 Systolic blood pressure 138 mm[Hg] Davide Jack GAME PROGRAMMER.NEWSPAPER OR PERIODICAL EDITOR Work Phone: [facility] 03-20-2023 11:21-0400 Body weight 78.93 kg Nohelia Ottosen GAME PROGRAMMER.NEWSPAPER OR PERIODICAL EDITOR Work Phone: [facility] 03-20-2023 11:21-0400 Diastolic blood pressure 78 mm[Hg] Nohelia Daisy GAME PROGRAMMER.NEWSPAPER OR PERIODICAL EDITOR Work Phone: [facility] 03-20-2023 11:21-0400 Systolic blood pressure 122 mm[Hg] Nohelia Daisy GAME PROGRAMMER.NEWSPAPER OR PERIODICAL EDITOR Work Phone: [facility] 03-15-2023 10:10-0400 Body temperature 97.39 [degF] Yohannes Pendlebury GAME PROGRAMMER.NEWSPAPER OR PERIODICAL EDITOR Work Phone: [facility] 03-15-2023 10:10-0400 Body weight 77.75 kg Yohannes Pendlebury GAME PROGRAMMER.NEWSPAPER OR PERIODICAL EDITOR Work Phone: [facility] 03-15-2023 10:10-0400 Diastolic blood pressure 100 mm[Hg] Yohannes Pendlebury GAME PROGRAMMER.NEWSPAPER OR PERIODICAL EDITOR Work Phone: [facility] 03-15-2023 10:10-0400 Heart rate 80 /min Yohannes Pendlebury GAME PROGRAMMER.NEWSPAPER OR PERIODICAL EDITOR Work Phone: [facility] 03-15-2023 10:10-0400 Respiratory rate 21 /min Yohannes Pendlebury GAME PROGRAMMER.NEWSPAPER OR PERIODICAL EDITOR Work Phone: [facility] 03-15-2023 10:10-0400 SaO2% (BldA) [Mass fraction] 98 % Yohannes Pendlebury GAME PROGRAMMER.NEWSPAPER OR PERIODICAL EDITOR Work Phone: [facility] 03-15-2023 10:10-0400 Systolic blood pressure 130 mm[Hg] Yohannes Fernanda PONCE.NEWSPAPER OR PERIODICAL EDITOR Work Phone: [facility] 03-12-2023 18:14-0400 Body weight 78.02 kg Guillermo Sheffield MD Work Phone: [facility] 03-12-2023 18:14-0400 Diastolic blood pressure 92 mm[Hg] Guillermo Sheffield MD Work Phone: [facility] 03-12-2023 18:14-0400 Heart rate 79 /min Guillermo Sheffield MD Work Phone: [facility] 03-12-2023 18:14-0400 SaO2% (BldA) [Mass fraction] 97 % Guillermo Sheffield MD Work Phone: [facility] 03-12-2023 18:14-0400 Systolic blood pressure 152 mm[Hg] Guillermo Sheffield MD Work Phone: [facility] 03-01-2023 09:43-0400 Body temperature 97.5 [degF] Krislyn Aberegg PA Work Phone: [facility] 03-01-2023 09:43-0400 Body weight 79.74 kg Krislyn Aberegg PA Work Phone: [facility] 03-01-2023 09:43-0400 Diastolic blood pressure 100 mm[Hg] Krislyn Aberegg PA Work Phone: [facility] 03-01-2023 09:43-0400 Heart rate 70 /min Krislyn Aberegg PA Work Phone: [facility] 03-01-2023 09:43-0400 Respiratory rate 18 /min Krislyn Aberegg PA Work Phone: [facility] 03-01-2023 09:43-0400 SaO2% (BldA) [Mass fraction] 99 % Krislyn Aberegg PA Work Phone: [facility] 03-01-2023 09:43-0400 Systolic blood pressure 162 mm[Hg] Jessica DIAZ Work Phone: [facility] 02-08-2023 08:41-0400 Body weight 78.02 kg Indigo Candelario APRN.NEWSPAPER OR PERIODICAL EDITOR Work Phone: [facility] 02-08-2023 08:41-0400 Diastolic blood pressure 72 mm[Hg] Indigo Candelario APRN.NEWSPAPER OR PERIODICAL EDITOR Work Phone: [facility] 02-08-2023 08:41-0400 Systolic blood pressure 128 mm[Hg] Indigo Candelario APRN.NEWSPAPER OR PERIODICAL EDITOR Work Phone: [facility] 01-24-2023 09:49-0400 Body temperature 97.9 [degF] John Zaragoza MD Work Phone: [facility] 01-24-2023 09:49-0400 Body weight 79.38 kg John Zaragoza MD Work Phone: [facility] 01-24-2023 09:49-0400 Diastolic blood pressure 84 mm[Hg] John Zaragoza MD Work Phone: [facility] 01-24-2023 09:49-0400 Heart rate 84 /min John Zaragoza MD Work Phone: [facility] 01-24-2023 09:49-0400 Respiratory rate 16 /min John Zaragoza MD Work Phone: [facility] 01-24-2023 09:49-0400 Systolic blood pressure 130 mm[Hg] John Zaragoza MD Work Phone: [facility] 01-09-2023 09:32-0400 Body weight 78.93 kg Indigo Candelario APRN.NEWSPAPER OR PERIODICAL EDITOR Work Phone: [facility] 01-09-2023 09:32-0400 Diastolic blood pressure 76 mm[Hg] Indigo Candelario APRN.NEWSPAPER OR PERIODICAL EDITOR Work Phone: [facility] 01-09-2023 09:32-0400 Systolic blood pressure 120 mm[Hg] Indigo Candelario APRN.CNP Work Phone: [facility] 01-02-2023 09:00-0400 Body weight 79.7 kg Janay Heard MD Work Phone: [facility] 01-02-2023 09:00-0400 Diastolic blood pressure 70 mm[Hg] Janay Heard MD Work Phone: [facility] 01-02-2023 09:00-0400 Systolic blood pressure 116 mm[Hg] Janay Heard MD Work Phone: [facility] 12-14-2022 15:40-0400 Body temperature 98.2 [degF] José Kulkarni MD Work Phone: [facility] 12-14-2022 15:40-0400 Body weight 78.83 kg José Kulkarni MD Work Phone: [facility] 12-14-2022 15:40-0400 Diastolic blood pressure 80 mm[Hg] José Kulkarni MD Work Phone: [facility] 12-14-2022 15:40-0400 Heart rate 80 /min José Kulkarni MD Work Phone: [facility] 12-14-2022 15:40-0400 SaO2% (BldA) [Mass fraction] 100 % José Kulkarni MD Work Phone: [facility] 12-14-2022 15:40-0400 Systolic blood pressure 128 mm[Hg] José Kulkarni MD Work Phone: [facility] 09-14-2022 15:47-0500 Body temperature 97.9 [degF] Johnna Martinez PA-C Work Phone: [facility] 09-14-2022 15:47-0500 Body weight 79.83 kg Johnnacelso Martinez PA-C Work Phone: [facility] 09-14-2022 15:47-0500 Diastolic blood pressure 82 mm[Hg] Johnna Martienz PA-C Work Phone: [facility] 09-14-2022 15:47-0500 Heart rate 93 /min Ojhnna Denbow PA-C Work Phone: [facility] 09-14-2022 15:47-0500 Respiratory rate 18 /min Johnna Denbow PA-C Work Phone: [facility] 09-14-2022 15:47-0500 SaO2% (BldA) [Mass fraction] 97 % Johnna Denbow PA-C Work Phone: [facility] 09-14-2022 15:47-0500 Systolic blood pressure 134 mm[Hg] Johnna Denbow PA-C Work Phone: [facility] 09-07-2022 08:55-0500 Body height 160 cm José Kulkarni MD Work Phone: [facility] 09-07-2022 08:55-0500 Body temperature 97.3 [degF] José Kulkarni MD Work Phone: [facility] 09-07-2022 08:55-0500 Body weight 78.93 kg José Kulkarni MD Work Phone: [facility] 09-07-2022 08:55-0500 Diastolic blood pressure 88 mm[Hg] José Kulkarni MD Work Phone: [facility] 09-07-2022 08:55-0500 Heart rate 109 /min José Kulkarni MD Work Phone: [facility] 09-07-2022 08:55-0500 SaO2% (BldA) [Mass fraction] 97 % José Kulkarni MD Work Phone: [facility] 09-07-2022 08:55-0500 Systolic blood pressure 130 mm[Hg] José Kulkarni MD Work Phone: [facility] 08-15-2022 16:21-0500 Body weight 79.38 kg NA Cook PA-C Work Phone: [facility] 08-15-2022 16:21-0500 Diastolic blood pressure 98 mm[Hg] NA Cook PA-C Work Phone: [facility] 08-15-2022 16:21-0500 Heart rate 71 /min NA Cook PA-C Work Phone: [facility] 08-15-2022 16:21-0500 Respiratory rate 16 /min NA Cook PA-C Work Phone: [facility] 08-15-2022 16:21-0500 SaO2% (BldA) [Mass fraction] 98 % NA Cook PA-C Work Phone: [facility] 08-15-2022 16:21-0500 Systolic blood pressure 138 mm[Hg] NA Cook PA-C Work Phone: [facility] 08-11-2022 14:35-0500 Body height 160 cm Dee Dee Nava MD Work Phone: [facility] 08-11-2022 14:35-0500 Body temperature 97.81 [degF] Dee Dee Nava MD Work Phone: [facility] 08-11-2022 14:35-0500 Body weight 79.2 kg Dee Dee Nava MD Work Phone: [facility] 08-11-2022 14:35-0500 Diastolic blood pressure 93 mm[Hg] Dee Dee Nava MD Work Phone: [facility] 08-11-2022 14:35-0500 Heart rate 65 /min Dee Dee Nava MD Work Phone: [facility] 08-11-2022 14:35-0500 SaO2% (BldA) [Mass fraction] 97 % Dee Dee Nava MD Work Phone: [facility] 08-11-2022 14:35-0500 Systolic blood pressure 151 mm[Hg] Dee Dee Nava MD Work Phone: [facility] 08-09-2022 09:44-0500 Body weight 79.02 kg Karina Gold APRN.CNM Work Phone: [facility] 08-09-2022 09:44-0500 Diastolic blood pressure 76 mm[Hg] Karina Gold APRN.CNM Work Phone: [facility] 08-09-2022 09:44-0500 Systolic blood pressure 128 mm[Hg] Karina Gold APRN.CNM Work Phone: [facility] 05-30-2022 15:50-0400 Body height 157.5 cm José Kulkarni MD Work Phone: [facility] 05-30-2022 15:50-0400 Body temperature 98.1 [degF] José Kulkarni MD Work Phone: [facility] 05-30-2022 15:50-0400 Body weight 78.47 kg José Kulkarni MD Work Phone: [facility] 05-30-2022 15:50-0400 Diastolic blood pressure 92 mm[Hg] José Kulkarni MD Work Phone: [facility] 05-30-2022 15:50-0400 Heart rate 79 /min José Kulkarni MD Work Phone: [facility] 05-30-2022 15:50-0400 SaO2% (BldA) [Mass fraction] 97 % José Kulkarni MD Work Phone: [facility] 05-30-2022 15:50-0400 Systolic blood pressure 146 mm[Hg] José Kulkarni MD Work Phone: [facility] 05-19-2022 09:57-0400 Body weight 77.11 kg Indigo Candelario APRN.NEWSPAPER OR PERIODICAL EDITOR Work Phone: [facility] 05-19-2022 09:57-0400 Diastolic blood pressure 90 mm[Hg] Indigo Candelario APRN.NEWSPAPER OR PERIODICAL EDITOR Work Phone: [facility] 05-19-2022 09:57-0400 Systolic blood pressure 142 mm[Hg] Indigo Candelario APRN.NEWSPAPER OR PERIODICAL EDITOR Work Phone: [facility] 05-09-2022 11:06-0400 Body temperature 97.81 [degF] Betty Royce GAME PROGRAMMER.NEWSPAPER OR PERIODICAL EDITOR Work Phone: [facility] 05-09-2022 11:06-0400 Body weight 78.65 kg Betty Royce GAME PROGRAMMER.NEWSPAPER OR PERIODICAL EDITOR Work Phone: [facility] 05-09-2022 11:06-0400 Diastolic blood pressure 82 mm[Hg] Betty Royce GAME PROGRAMMER.NEWSPAPER OR PERIODICAL EDITOR Work Phone: [facility] 05-09-2022 11:06-0400 Heart rate 67 /min Betty Royce GAME PROGRAMMER.NEWSPAPER OR PERIODICAL EDITOR Work Phone: [facility] 05-09-2022 11:06-0400 Respiratory rate 16 /min Betty Royce GAME PROGRAMMER.NEWSPAPER OR PERIODICAL EDITOR Work Phone: [facility] 05-09-2022 11:06-0400 SaO2% (BldA) [Mass fraction] 96 % Betty Royce GAME PROGRAMMER.NEWSPAPER OR PERIODICAL EDITOR Work Phone: [facility] 05-09-2022 11:06-0400 Systolic blood pressure 136 mm[Hg] Betty Royce GAME PROGRAMMER.NEWSPAPER OR PERIODICAL EDITOR Work Phone: [facility] 05-07-2022 11:09-0400 Body temperature 97.81 [degF] Betty Royce GAME PROGRAMMER.NEWSPAPER OR PERIODICAL EDITOR Work Phone: [facility] 05-07-2022 11:09-0400 Body weight 78.02 kg Betty Royce GAME PROGRAMMER.NEWSPAPER OR PERIODICAL EDITOR Work Phone: [facility] 05-07-2022 11:09-0400 Diastolic blood pressure 102 mm[Hg] Betty Royce GAME PROGRAMMER.NEWSPAPER OR PERIODICAL EDITOR Work Phone: [facility] 05-07-2022 11:09-0400 Heart rate 72 /min Betty Royce GAME PROGRAMMER.NEWSPAPER OR PERIODICAL EDITOR Work Phone: [facility] 05-07-2022 11:09-0400 Respiratory rate 16 /min Betty Royce GAME PROGRAMMER.NEWSPAPER OR PERIODICAL EDITOR Work Phone: [facility] 05-07-2022 11:09-0400 SaO2% (BldA) [Mass fraction] 98 % Betty Royce GAME PROGRAMMER.NEWSPAPER OR PERIODICAL EDITOR Work Phone: [facility] 05-07-2022 11:09-0400 Systolic blood pressure 162 mm[Hg] Betty Crane APRN.NEWSPAPER OR PERIODICAL EDITOR Work Phone: [facility] 04-25-2022 10:40-0400 Diastolic blood pressure 88 mm[Hg] José Kulkarni MD Work Phone: [facility] 04-25-2022 10:40-0400 Heart rate 72 /min José Kulkarni MD Work Phone: [facility] 04-25-2022 10:40-0400 Respiratory rate 16 /min José Kulkarni MD Work Phone: [facility] 04-25-2022 10:40-0400 SaO2% (BldA) [Mass fraction] 95 % José Kulkarni MD Work Phone: [facility] 04-25-2022 10:40-0400 Systolic blood pressure 138 mm[Hg] José Kulkarni MD Work Phone: [facility] 04-25-2022 08:32-0400 Body temperature 97.3 [degF] José Kulkarni MD Work Phone: [facility] 04-25-2022 08:32-0400 Body weight 77.4 kg José Kulkarni MD Work Phone: [facility] 04-14-2022 09:08-0400 Body weight 77.38 kg Indigo Candelario APRN.NEWSPAPER OR PERIODICAL EDITOR Work Phone: [facility] 04-14-2022 09:08-0400 Diastolic blood pressure 82 mm[Hg] Indigo Candelario APRN.NEWSPAPER OR PERIODICAL EDITOR Work Phone: [facility] 04-14-2022 09:08-0400 Systolic blood pressure 134 mm[Hg] Indigo Candelario APRN.NEWSPAPER OR PERIODICAL EDITOR Work Phone: [facility] 04-10-2022 10:10-0400 [facility] 60 [facility] 14:21-0400 Body height 158 cm NA Cook PA-C Work Phone: [facility] 03-20-2022 14:21-0400 Body weight 78.47 kg NA Cook PA-C Work Phone: [facility] 03-20-2022 14:21-0400 Diastolic blood pressure 78 mm[Hg] NA Cook PA-C Work Phone: [facility] 03-20-2022 14:21-0400 Heart rate 68 /min NA Cook PA-C Work Phone: [facility] 03-20-2022 14:21-0400 Respiratory rate 18 /min NA Cook PA-C Work Phone: [facility] 03-20-2022 14:21-0400 SaO2% (BldA) [Mass fraction] 98 % NA Cook PA-C Work Phone: [facility] 03-20-2022 14:21-0400 Systolic blood pressure 118 mm[Hg] NA Cook PA-C Work Phone: [facility] 03-06-2022 14:07-0400 Body temperature 97 [degF] John Zaragoza MD Work Phone: [facility] 03-06-2022 14:07-0400 Body weight 77.47 kg John Zaragoza MD Work Phone: [facility] 03-06-2022 14:07-0400 Diastolic blood pressure 98 mm[Hg] John Zaragoza MD Work Phone: [facility] 03-06-2022 14:07-0400 Heart rate 66 /min John Zaragoza MD Work Phone: [facility] 03-06-2022 14:07-0400 Respiratory rate 21 /min John Zaragoza MD Work Phone: [facility] 03-06-2022 14:07-0400 SaO2% (BldA) [Mass fraction] 96 % John Zaragoza MD Work Phone: [facility] 03-06-2022 14:07-0400 Systolic blood pressure 140 mm[Hg] John Zaragoza MD Work Phone: [facility] 03-01-2022 10:32-0400 Body temperature 97.39 [degF] Yohannes Michael GAME PROGRAMMER.NEWSPAPER OR PERIODICAL EDITOR Work Phone: [facility] 03-01-2022 10:32-0400 Body weight 79.2 kg Yohannesford Michael GAME PROGRAMMER.NEWSPAPER OR PERIODICAL EDITOR Work Phone: [facility] 03-01-2022 10:32-0400 Diastolic blood pressure 84 mm[Hg] Yohannes Michael GAME PROGRAMMER.NEWSPAPER OR PERIODICAL EDITOR Work Phone: [facility] 03-01-2022 10:32-0400 Heart rate 63 /min Yohannes Michael GAME PROGRAMMER.NEWSPAPER OR PERIODICAL EDITOR Work Phone: [facility] 03-01-2022 10:32-0400 Respiratory rate 18 /min Yohannes Michael GAME PROGRAMMER.NEWSPAPER OR PERIODICAL EDITOR Work Phone: [facility] 03-01-2022 10:32-0400 SaO2% (BldA) [Mass fraction] 98 % Yohannes Michael GAME PROGRAMMER.NEWSPAPER OR PERIODICAL EDITOR Work Phone: [facility] 03-01-2022 10:32-0400 Systolic blood pressure 142 mm[Hg] Yohannes Michael GAME PROGRAMMER.NEWSPAPER OR PERIODICAL EDITOR Work Phone: [facility] 02-08-2022 11:31-0400 Body height 157.5 cm Pacc 1 Work Phone: [facility] 02-08-2022 11:31-0400 Body temperature 97.3 [degF] Pacc 1 Work Phone: [facility] 02-08-2022 11:31-0400 Body weight 78.47 kg Pacc 1 Work Phone: [facility] 02-08-2022 11:31-0400 Diastolic blood pressure 90 mm[Hg] Pacc 1 Work Phone: [facility] 02-08-2022 11:31-0400 Heart rate 70 /min Pacc 1 Work Phone: [facility] 02-08-2022 11:31-0400 Respiratory rate 14 /min Pacc 1 Work Phone: [facility] 02-08-2022 11:31-0400 SaO2% (BldA) [Mass fraction] 98 % Pacc 1 Work Phone: [facility] 02-08-2022 11:31-0400 Systolic blood pressure 138 mm[Hg] Pacc 1 Work Phone: [facility] 02-07-2022 07:01-0400 Body height 157.5 cm Nohelia Ottosen GAME PROGRAMMER.NEWSPAPER OR PERIODICAL EDITOR Work Phone: [facility] 02-07-2022 07:01-0400 Body weight 77.66 kg Nohelia Daisy GAME PROGRAMMER.NEWSPAPER OR PERIODICAL EDITOR Work Phone: [facility] 02-07-2022 07:01-0400 Diastolic blood pressure 60 mm[Hg] Nohelia Ottosen GAME PROGRAMMER.NEWSPAPER OR PERIODICAL EDITOR Work Phone: [facility] 02-07-2022 07:01-0400 Systolic blood pressure 118 mm[Hg] Nohelia Ottosen GAME PROGRAMMER.NEWSPAPER OR PERIODICAL EDITOR Work Phone: [facility] 01-27-2022 09:57-0400 Body weight 77.56 kg NA Cook PA-C Work Phone: [facility] 01-27-2022 09:57-0400 Diastolic blood pressure 80 mm[Hg] NA Cook PA-C Work Phone: [facility] 01-27-2022 09:57-0400 Heart rate 80 /min NA Cook PA-C Work Phone: [facility] 01-27-2022 09:57-0400 Respiratory rate 16 /min NA Cook PA-C Work Phone: [facility] 01-27-2022 09:57-0400 Systolic blood pressure 126 mm[Hg] NA Cook PA-C Work Phone: [facility] 04-25-2022 16:07-0400 Body temperature 97.9 [degF] Betty Crane GAME PROGRAMMER.NEWSPAPER OR PERIODICAL EDITOR Work Phone: [facility] 01-23-2022 16:07-0400 Body weight 77.11 kg Betty Crane GAME PROGRAMMER.NEWSPAPER OR PERIODICAL EDITOR Work Phone: [facility] 01-23-2022 16:07-0400 Diastolic blood pressure 80 mm[Hg] Betty Royce GAME PROGRAMMER.NEWSPAPER OR PERIODICAL EDITOR Work Phone: [facility] 01-23-2022 16:07-0400 Heart rate 78 /min Betty Crane GAME PROGRAMMER.NEWSPAPER OR PERIODICAL EDITOR Work Phone: [facility] 01-23-2022 16:07-0400 Respiratory rate 16 /min Betty Crane GAME PROGRAMMER.NEWSPAPER OR PERIODICAL EDITOR Work Phone: [facility] 01-23-2022 16:07-0400 SaO2% (BldA) [Mass fraction] 98 % Betty Crane GAME PROGRAMMER.NEWSPAPER OR PERIODICAL EDITOR Work Phone: [facility] 01-23-2022 16:07-0400 Systolic blood pressure 124 mm[Hg] Betty Sarabiak GAME PROGRAMMER.NEWSPAPER OR PERIODICAL EDITOR Work Phone: [facility] Encounters Encounter Date Encounter Type Care Provider Facility Start: 07-23-2024 End: 07-23-2024 Patient encounter procedure José Kulkarni MD Work Phone: General Surgery Comment on above: Skin lesion (Primary Dx) Start: 07-23-2024 End: 07-23-2024 Telephone encounter Aniya Ramírez APRN.NEWSPAPER OR PERIODICAL EDITOR Work Phone: OB/Gynecology Comment on above: Patient Update Start: 07-22-2024 End: 07-22-2024 ambulatory Mignon Orozco APRN.NEWSPAPER OR PERIODICAL EDITOR Work Phone: [facility] Comment on above: Encounter to [facility] (Primary Dx) Start: 07-22-2024 End: 07-22-2024 Telemedicine consultation with patient Mignon rOozco APRN.NEWSPAPER OR PERIODICAL EDITOR Work Phone: [facility] Start: 07-19-2024 End: 07-20-2024 Telephone encounter John Zaragoza MD Work Phone: [facility] Comment on above: Results (Mycoplasma hominis+) Start: 07-17-2024 End: 07-17-2024 Telephone encounter Jessica DIAZ Work Phone: [facility] Comment on above: Results Start: 07-16-2024 End: 07-16-2024 ambulatory Jaguar COOK Facility:[facility] Start: 07-16-2024 End: 07-16-2024 Patient encounter procedure Karina Chandler APRN.NEWSPAPER OR PERIODICAL EDITOR Work Phone: [facility] Comment on above: Vaginal discharge (P rimary Dx); Vaginal bleeding; Encounter for screening examination for sexually transmitted disease Start: 07-05-2024 End: 07-07-2024 ambulatory Jaguar Nicolette Cook PA-C Work Phone: [facility] Start: 07-05-2024 End: 07-07-2024 Patient encounter procedure Jaguar Nicolette Cook PA-C Work Phone: [facility] Comment on above: Appointment Start: 06-12-2024 End: 07-17-2024 Telephone encounter Aniya Ramírez APRN.NEWSPAPER OR PERIODICAL EDITOR Work Phone: OB/Gynecology Comment on above: Insurance Authorizat ion (/) Start: 06-09-2024 End: 06-09-2024 Office outpatient visit 15 minutes Yohannes Michael APRN.NEWSPAPER OR PERIODICAL EDITOR Work Phone: [facility] Comment on above: Pain of left eye (Pr imary Dx) Start: 06-09-2024 End: 06-09-2024 Refill Guillermo Sheffield MD Work Phone: [facility] Comment on above: Refill Request Start: 06-05-2024 End: 06-05-2024 Telephone encounter Mary Oliver LPN OB/Gynecology Comment on above: Patient Update Start: 05-29-2024 End: 05-29-2024 Refill Jaguar Cook PA-C Work Phone: [facility] [place] Comment on above: Refill Request Start: 05-26-2024 End: 05-26-2024 ambulatory ANIYA RAMÍREZ Facility:[facility] Start: 05-23-2024 End: 05-26-2024 Telephone encounter Clark Zaldivar APRN.CNP Work Phone: Gastroenterology Comment on above: Patient Update Start: 05-22-2024 End: 05-22-2024 ambulatory Aniya Ramírez APRN.NEWSPAPER OR PERIODICAL EDITOR Work Phone: OB/Gynecology Comment on above: HIV SCreening Start: 05-22-2024 End: 05-22-2024 E-mail encounter from caregiver Aniya Darrell MELGOZANEWSPAPER OR PERIODICAL EDITOR Work Phone: OB/Gynecology Start: 05-21-2024 End: 05-21-2024 ambulatory ANIYA STRONGDREW Facility:[facility] Start: 05-21-2024 End: 05-21-2024 Patient encounter procedure Aniya Ramírez APRN.NEWSPAPER OR PERIODICAL EDITOR Work Phone: OB/Gynecology Comment on above: Screening examinatio n for STD (sexually transmitted disease) (Primary Dx); Pelvic pressure in female; Urinary frequency Start: 05-20-2024 End: 05-21-2024 ambulatory Mignon Orozco APRN.NEWSPAPER OR PERIODICAL EDITOR Work Phone: [facility] Comment on above: Blood type Start: 05-20-2024 End: 05-20-2024 Patient encounter procedure Clark Zaldivar APRN.NEWSPAPER OR PERIODICAL EDITOR Work Phone: Gastroenterology Comment on above: Irritable bowel synd ingrid with diarrhea (Primary Dx); Hepatic lesion Start: 05-16-2024 End: 05-19-2024 ambulatory Jaguar Cook PA-C Work Phone: [facility] Comment on above: COPD Start: 05-12-2024 End: 05-12-2024 ambulatory ANIYA STRONGDREW Facility:[facility] Start: 05-11-2024 Refill Aniya Ramírez APRN.NEWSPAPER OR PERIODICAL EDITOR Work Phone: OB/Gynecology Comment on above: Refill Request Start: 05-02-2024 Telephone encounter Aniya Haur y GAME PROGRAMMER.NEWSPAPER OR PERIODICAL EDITOR Work Phone: OB/Gynecology Comment on above: Results Start: 05-01-2024 End: 06-11-2024 Telephone encounter Aniya Ramírez GAME PROGRAMMER.NEWSPAPER OR PERIODICAL EDITOR Work Phone: OB/Gynecology Comment on above: Insurance Authorizat ion Start: 04-29-2024 Refill Maria johnston GAME PROGRAMMER.CNM Work Phone: OB/Gynecology Comment on above: Refill Request Start: 04-28-2024 End: 04-28-2024 ambulatory ANIYA RAMÍREZ Facility:[facility] Start: 04-28-2024 End: 04-28-2024 Patient encounter procedure Aniya Ramírez GAME PROGRAMMER.NEWSPAPER OR PERIODICAL EDITOR Work Phone: OB/Gynecology Comment on above: Screening examinatio n for STD (sexually transmitted disease) (Primary Dx); Vaginal discharge; Cervical cancer screening Start: 03-28-2024 Refill Jaguar red PA-C Work Phone: [facility] [place] Comment on above: Refill Request Start: 03-18-2024 Telephone encounter Jaguar Cook PA-C Work Phone: [facility] Comment on above: Forms (Form for michael mata onditiontim ) Start: 03-13-2024 End: 03-13-2024 ambulatory MIGNON A SUPPSIDNEY Facility:[facility] Start: 03-13-2024 End: 03-13-2024 Office outpatient visit 15 minutes Mignon Orozco GAME PROGRAMMER.DIRECTOR TARGETED MARKETING Work Phone: [facility] [place] Comment on above: Essential hypertensi on (Primary Dx) Start: 03-06-2024 Telephone encounter Jessica Dean PA Work Phone: [facility] Comment on above: Results Start: 03-05-2024 End: 03-05-2024 ambulatory Jaguar COOK Facility:[facility] Start: 03-05-2024 End: 03-05-2024 Patient encounter procedure Karina Chandler GAME PROGRAMMER.NEWSPAPER OR PERIODICAL EDITOR Work Phone: [facility] Comment on above: Vaginal itching (Marquita igor Dx); Encounter for screening examination for sexually transmitted disease Start: 02-27-2024 End: 02-27-2024 ambulatory Jaguar COOK Facility:[facility] Start: 02-27-2024 End: 02-27-2024 Patient encounter procedure Nurse [facility] Work Phone: [facility] Comment on above: Gonorrhea (Primary D x) Start: 02-27-2024 Telephone encounter Yeison vizcaino PA-C Work Phone: [facility] Comment on above: Results Start: 02-26-2024 End: 02-26-2024 ambulatory Jaguar COOK Facility:[facility] Start: 02-26-2024 End: 02-26-2024 Patient encounter procedure Dwain Hawkins APRN.NEWSPAPER OR PERIODICAL EDITOR Work Phone: [facility] Comment on above: Burning with urinati on (Primary Dx); Vaginal itching Start: 01-30-2024 End: 01-30-2024 Subsequent hospital visit by physician Xr [facility] Work Phone: Radiology Comment on above: Acute pain of right knee [M25.561] Start: 01-30-2024 Telephone encounter Jaguar Cook PA-C Work Phone: [facility] Comment on above: Consult Start: 01-30-2024 End: 01-30-2024 ambulatory Jaguar COOK Facility:[facility] Start: 01-30-2024 End: 01-30-2024 Patient encounter procedure John Zaragoza MD Work Phone: [facility] Comment on above: Acute pain of right knee (Primary Dx) Start: 01-17-2024 ambulatory Mignon jimenez GAME PROGRAMMER.DIRECTOR TARGETED MARKETING Work Phone: Family [facility] [place] Start: 01-17-2024 E-mail encounter fro m caregiver Mignon Orozco GAME PROGRAMMER.DIRECTOR TARGETED MARKETING Work Phone: [facility] Start: 01-15-2024 End: 01-15-2024 ambulatory Jagura COOK Facility:[facility] Start: 01-07-2024 Telephone encounter Mignon Orozco APRN.DIRECTOR TARGETED MARKETING Work Phone: [facility] Comment on above: Medication Question Start: 01-07-2024 End: 01-07-2024 [facility] Start: 01-07-2024 End: 01-07-2024 Initial preventive medicine new patient 40-64yrs Mignon Orozco APRN.DIRECTOR TARGETED MARKETING Work Phone: [facility] Comment on above: Encounter for screen ing mammogram for malignant neoplasm of breast (Primary Dx); Essential hypertension; Hyperlipidemia with target LDL less than 130; Prediabetes; Gastroesophageal reflux disease without esophagitis; Fibromyalgia; Headache, unspecified headache type; Screening for hyperlipidemia Start: 01-04-2024 End: 01-04-2024 ambulatory [facility] Facility:[facility] Start: 01-04-2024 End: 01-04-2024 Patient encounter procedure Jessica Hutchison APRN.NEWSPAPER OR PERIODICAL EDITOR Work Phone: [facility] Comment on above: Secondary hypertensi on (Primary Dx); Dizziness Start: 12-24-2023 Refill Guillermo Sheffield MD Work Phone: [facility] [place] Comment on above: Refill Request Start: 12-21-2023 Telephone encounter Aniya vizcaino APRN.NEWSPAPER OR PERIODICAL EDITOR Work Phone: OB/Gynecology Comment on above: Results Start: 12-17-2023 End: 12-17-2023 ambulatory Indigo Candelario APRN.NEWSPAPER OR PERIODICAL EDITOR Work Phone: OB/Gynecology Comment on above: UTI AND OTHER Shoulder and hip Start: 12-17-2023 End: 12-17-2023 Patient encounter procedure Aniya Ramírez APRN.NEWSPAPER OR PERIODICAL EDITOR Work Phone: OB/Gynecology Comment on above: Vaginal odor (Primar y Dx); Vaginal itching; Urinary frequency Start: 12-10-2023 ambulatory Ifrah bautista RN NURSE [employer] INTELLIGENCE OFFICER Comment on above: Constipation Start: 12-07-2023 End: 12-07-2023 Subsequent hospital visit by physician Florina [facility] [place] Work Phone: Radiology Comment on above: Acute constipation [ K59.00] Start: 12-07-2023 End: 12-07-2023 ambulatory Jaguar CASTELLANOON Facility:[facility] Start: 12-07-2023 End: 12-07-2023 Patient encounter procedure Jessica Hutchison APRN.NEWSPAPER OR PERIODICAL EDITOR Work Phone: [facility] Comment on above: Acute constipation ( Primary Dx) Start: 11-30-2023 Telephone encounter Jaguar Cook PA-C Work Phone: [facility] Comment on above: Patient Question Start: 11-28-2023 End: 11-28-2023 ambulatory Jaguar COOK Facility:[facility] Start: 11-28-2023 End: 11-28-2023 Patient encounter procedure Jessica Dean PA Work Phone: [facility] Comment on above: Dysuria (Primary Dx) ; Vaginal discharge; Hypertension, essential Start: 11-22-2023 Telephone encounter Jaguar Cook PA-C Work Phone: [facility] [place] Comment on above: Medication Request Start: 11-16-2023 Telephone encounter Jonah shay MD Work Phone: Orthopaedics Comment on above: Patient Question Start: 11-05-2023 End: 11-05-2023 ambulatory JONAH IBRAHIM Facility:[facility] Start: 10-25-2023 End: 10-25-2023 ambulatory Jaguar COOK Facility:[facility] Start: 10-08-2023 End: 10-08-2023 ambulatory Jaguar COOK Facility:[facility] Start: 10-03-2023 End: 10-03-2023 ambulatory Jaguar COOK Facility:[facility] Start: 09-07-2023 ambulatory Indigo Candelario APRN.NEWSPAPER OR PERIODICAL EDITOR Work Phone: OB/Gynecology Comment on above: BV symptoms Start: 08-30-2023 Refill Jaguar red PA-C Work Phone: [facility] Comment on above: Refill Request Start: 08-20-2023 End: 08-20-2023 [facility] Start: 08-20-2023 End: 08-20-2023 Patient encounter procedure Jonah Ibrahim MD Work Phone: Orthopaedics Comment on above: Chronic left shoulde r pain Start: 08-05-2023 End: 08-05-2023 [facility] Facility:[facility] Start: 07-27-2023 Telephone encounter John Muñoz MD Work Phone: [facility] Comment on above: Results (hematuria) Start: 07-26-2023 End: 07-26-2023 ambulatory [facility] Facility:[facility] Start: 07-26-2023 End: 07-26-2023 Patient encounter procedure Yeison Ignacio PA-C Work Phone: [facility] Comment on above: Urinary frequency (P rimary Dx); Microscopic hematuria; Chronic left shoulder pain Start: 07-26-2023 End: 07-26-2023 [facility] Start: 07-25-2023 ambulatory [facility] PA-C Work Phone: [facility] [place] Comment on above: Shoulder and UTI Start: 07-18-2023 End: 07-18-2023 Patient encounter procedure Yeison Ignacio PA-C Work Phone: [facility] Comment on above: Vomiting and diarrhe a (Primary Dx); Strain of left shoulder, initial encounter Start: 07-13-2023 Telephone encounter Jessica Marie APRN.NEWSPAPER OR PERIODICAL EDITOR Work Phone: [facility] Comment on above: Results Start: 07-11-2023 End: 07-11-2023 Subsequent hospital visit by physician Florina [facility] [place] Work Phone: Radiology Comment on above: Acute pain of left s houlder [M25.512] Start: 07-11-2023 End: 07-11-2023 Patient encounter procedure Jessica Hutchison APRN.NEWSPAPER OR PERIODICAL EDITOR Work Phone: [facility] Comment on above: Acute pain of left s houlder (Primary Dx); Urinary frequency; Vaginal odor; Screening for STD (sexually transmitted disease) Start: 07-06-2023 Telephone encounter Indigo celeste APRN.NEWSPAPER OR PERIODICAL EDITOR Work Phone: OB/Gynecology Comment on above: Vaginal Problem Start: 06-25-2023 End: 06-25-2023 Subsequent hospital visit by physician Xr [facility] Work Phone: Radiology Comment on above: Acute pain of right knee [M25.561] Start: 06-19-2023 Refill Jennifer Whitfield APRN.CNP Work Phone: [facility] Comment on above: Refill Request Start: 05-29-2023 End: 05-29-2023 Office outpatient visit 25 minutes Jennifer Whitfield APRN.NEWSPAPER OR PERIODICAL EDITOR Work Phone: [facility] Comment on above: Essential hypertensi on (Primary Dx) Start: 05-23-2023 End: 05-23-2023 ambulatory Karina Rankin PT [facility] Comment on above: Low back pain, unspe cified back pain laterality, unspecified chronicity, unspecified whether sciatica present (Primary Dx) Start: 05-18-2023 End: 05-18-2023 Patient encounter procedure Indigo Candelario APRN.NEWSPAPER OR PERIODICAL EDITOR Work Phone: OB/Gynecology Comment on above: Vulvar itching (Prim jaime Dx) Start: 05-17-2023 Telephone encounter Jenny waters MD Work Phone: OB/Gynecology Comment on above: Patient Question Start: 04-23-2023 Telephone encounter Nohelia Magallon chip PONCE.NEWSPAPER OR PERIODICAL EDITOR Work Phone: OB/Gynecology Comment on above: Results Start: 04-18-2023 Telephone encounter Guillermo Sheffield MD Work Phone: [facility] Comment on above: Results Start: 04-17-2023 End: 04-17-2023 Subsequent hospital visit by physician [facility] (I-Stat/1.5t) Work Phone: Radiology Comment on above: Headache, unspecifie d headache type [R51.9] Start: 04-16-2023 Refill Jaguar Nicolette red PA-C Work Phone: [facility] Comment on above: Refill Request Start: 04-09-2023 Patient Msg Indigo Candelario GAME PROGRAMMER.NEWSPAPER OR PERIODICAL EDITOR Work Phone: OB/Gynecology Comment on above: Diflucan refill Start: 04-04-2023 End: 04-04-2023 Subsequent hospital visit by physician [facility] Work Phone: Radiology Comment on above: Abnormal mammogram [ R92.8] Start: 03-28-2023 Telephone encounter Jaguar Nicolette DIAZ-C Work Phone: [facility] Comment on above: Letter Start: 03-20-2023 Telephone encounter Jennifer gallagher GAME PROGRAMMER.NEWSPAPER OR PERIODICAL EDITOR Work Phone: [facility] Comment on above: Letter Start: 03-20-2023 End: 03-20-2023 Patient encounter procedure Davdie Santiago GAME PROGRAMMER.NEWSPAPER OR PERIODICAL EDITOR Work Phone: [facility] Comment on above: Mild intermittent as thma with acute exacerbation (Primary Dx) Start: 03-20-2023 End: 03-20-2023 ambulatory Karina Rankin PT [facility] Comment on above: Neck pain (Primary D x); Low back pain, unspecified back pain laterality, unspecified chronicity, unspecified whether sciatica present Start: 03-20-2023 End: 03-20-2023 Patient encounter procedure Nohelia Taylor GAME PROGRAMMER.NEWSPAPER OR PERIODICAL EDITOR Work Phone: OB/Gynecology Comment on above: Vulvar cyst (Primary Dx); Stress incontinence; Urge incontinence; Pelvic pain in female Start: 03-15-2023 Telephone encounter Yohannes garcia GAME PROGRAMMER.NEWSPAPER OR PERIODICAL EDITOR Work Phone: [facility] Comment on above: Results Start: 03-15-2023 End: 03-15-2023 Subsequent hospital visit by physician [facility] Work Phone: Radiology Comment on above: Acute cough [R05.1] Start: 03-15-2023 End: 03-15-2023 Office outpatient visit 25 minutes Yohannes Michael APRN.NEWSPAPER OR PERIODICAL EDITOR Work Phone: [facility] Comment on above: Acute cough (Primary Dx); Sinobronchitis Start: 03-14-2023 End: 03-14-2023 Refill M Nicolette Cook PA-C Work Phone: [facility] [place] Comment on above: Refill Request Vaginal Problem Lumbar pain [M54.50] Start: 03-12-2023 End: 03-12-2023 Patient encounter procedure Guillermo Sheffield MD Work Phone: [facility] Comment on above: Headache, unspecifie d headache type (Primary Dx); Lumbar pain; Neck pain; Acute pain of left shoulder; Concussion without loss of consciousness, subsequent encounter Start: 03-05-2023 End: 03-05-2023 ambulatory Jennifer [facility] APRN.NEWSPAPER OR PERIODICAL EDITOR Work Phone: [facility] Comment on above: Low back pain, unspe cified back pain laterality, unspecified chronicity, unspecified whether sciatica present (Primary Dx); Acute pain of left shoulder; Symptoms of upper respiratory infection (URI) Start: 03-05-2023 End: 03-05-2023 Telemedicine consultation with patient Jennifer [facility]field NEWSPAPER OR PERIODICAL EDITOR Work Phone: [facility] Start: 03-01-2023 End: 03-01-2023 Office outpatient visit 25 minutes Jessica DIAZ Work Phone: [facility] Comment on above: Sore throat (Primary Dx); Hypertension, essential; URI, acute Start: 02-08-2023 End: 02-08-2023 Patient encounter procedure Indigo Candelario APRN.NEWSPAPER OR PERIODICAL EDITOR Work Phone: OB/Gynecology Comment on above: Screen for STD (sexu ally transmitted disease) (Primary Dx); Vaginal discharge Start: 01-29-2023 End: 01-29-2023 ambulatory Clark Zaldivar APRN.NEWSPAPER OR PERIODICAL EDITOR Work Phone: Gastroenterology Comment on above: OPENED IN ERROR (Maruqita igor Dx) Start: 01-29-2023 End: 01-29-2023 Telemedicine consultation with patient Clark Hamiltonkaykay MELGOZANEWSPAPER OR PERIODICAL EDITOR Work Phone: [facility] Start: 01-24-2023 End: 01-24-2023 Patient encounter procedure John Zaragoza MD Work Phone: [facility] Comment on above: Sore throat (Primary Dx) Start: 01-10-2023 Telephone encounter Jaguar Cook PA-C Work Phone: [facility] Comment on above: Medication Problem Start: 01-09-2023 End: 01-09-2023 Patient encounter procedure Indigo Candelario APRN.NEWSPAPER OR PERIODICAL EDITOR Work Phone: OB/Gynecology Comment on above: Vaginal discharge (P rimary Dx); Vaginal odor; Hymenal remnant Start: 01-02-2023 End: 01-02-2023 Patient encounter procedure Janay Heard MD Work Phone: OB/Gynecology Comment on above: Hymenal remnant (Marquita igor Dx) Start: 12-14-2022 End: 12-14-2022 Patient encounter procedure José Kulkarni MD Work Phone: General Surgery Comment on above: Skin tag (Primary Dx ) Start: 12-13-2022 Telephone encounter Indigo celeste APRN.NEWSPAPER OR PERIODICAL EDITOR Work Phone: OB/Gynecology Comment on above: skin tag removal Start: 12-11-2022 Documentation procedure Mammog aspen Coordinator [facility] Start: 12-11-2022 Letter encounter Mammography Coordinator [facility] Department Start: 12-11-2022 End: 12-11-2022 Subsequent hospital visit by physician Screen Mammo [facility] Comment on above: Encounter for screen ing mammogram for breast cancer [Z12.31] Start: 12-05-2022 Telephone encounter Jonah DIAZ Work Phone: Orthopaedics Comment on above: Patient Question Start: 12-01-2022 Orders Only Agnieszka prieto PA-C Work Phone: Orthopaedics Comment on above: Radiculopathy, lumba r region (Primary Dx) Start: 11-30-2022 End: 11-30-2022 Subsequent hospital visit by physician Xr [facility] Work Phone: Radiology Comment on above: Pneumonia of right l ower lobe due to infectious organism [J18.9] Start: 11-29-2022 ambulatory Jaguar red PA-C Work Phone: [facility] Comment on above: note for Child Ontiveros pport Hip Start: 11-16-2022 End: 11-16-2022 ambulatory Fernanda Murphy PT Work Phone: [facility] Comment on above: Neck pain (Primary D x); Chronic midline low back pain without sciatica; Lateral epicondylitis, right elbow Start: 11-15-2022 ambulatory Jonah Ibrahim MD Work Phone: Orthopaedics Comment on above: Hip Start: 11-14-2022 End: 11-14-2022 ambulatory Fernanda Murphy PT Work Phone: [facility] Comment on above: Neck pain (Primary D x); Chronic midline low back pain without sciatica; Lateral epicondylitis, right elbow Start: 11-07-2022 End: 11-07-2022 ambulatory Fernanda Murphy PT Work Phone: [facility] Comment on above: Neck pain (Primary D x); Chronic midline low back pain without sciatica; Lateral epicondylitis, right elbow Start: 11-07-2022 End: 11-07-2022 Subsequent hospital visit by physician Xr [facility] [place] Work Phone: Radiology Comment on above: Chronic pain of righ t knee [M25.561, G89.29] Start: 11-06-2022 End: 11-06-2022 ambulatory Jaguar Cook PA-C Work Phone: [facility] Comment on above: Pneumonia of right l ower lobe due to infectious organism (Primary Dx); Anxiety state; Perimenopausal Start: 11-06-2022 End: 11-06-2022 Telemedicine consultation with patient Jaguar Cook PA-C Work Phone: [facility] Start: 10-31-2022 ambulatory Guillermo Sheffield MD Work Phone: [facility] Comment on above: The vascular ultraso und Start: 10-30-2022 Telephone encounter Guillermo Sheffield MD Work Phone: [facility] Comment on above: Results Start: 10-30-2022 End: 10-30-2022 Subsequent hospital visit by physician Xr [facility] [place] Work Phone: Radiology Comment on above: Bacterial pneumonia [J15.9] Start: 10-30-2022 End: 10-30-2022 Patient encounter procedure Jonah Ibrahim MD Work Phone: Orthopaedics Comment on above: Right leg pain (Prim jaime Dx); Radiculopathy, lumbar region Start: 10-26-2022 End: 10-26-2022 ambulatory Fernanda Murphy PT Work Phone: [facility] Comment on above: Neck pain (Primary D x); Chronic midline low back pain without sciatica; Lateral epicondylitis, right elbow Start: 10-26-2022 Follow-up encounter Jaguar Cook PA-C Work Phone: [facility] Comment on above: Follow up Start: 10-26-2022 Telephone encounter Guillermo Sheffield MD Work Phone: [facility] Comment on above: Orders Start: 10-24-2022 End: 10-24-2022 ambulatory Fernanda Murphy PT Work Phone: [facility] Comment on above: Neck pain (Primary D x); Chronic midline low back pain without sciatica; Lateral epicondylitis, right elbow Start: 10-17-2022 End: 10-17-2022 ambulatory Fernanda Murphy PT Work Phone: [facility] Comment on above: Neck pain (Primary D x); Chronic midline low back pain without sciatica; Chronic neck pain; Lateral epicondylitis, right elbow pneumonia question Start: 10-17-2022 E-mail encounter fro m caregiver M Nicolettegwendolyn Cook PA-C Work Phone: [facility] Start: 10-17-2022 Telephone encounter Jonah shay MD Work Phone: Orthopaedics Comment on above: Appointment (Wait [address]) Appointment Start: 10-09-2022 End: 10-09-2022 Patient encounter procedure Jonah Ibrahim MD Work Phone: Orthopaedics Comment on above: Primary osteoarthrit is of first carpometacarpal joint of right hand (Primary Dx) Start: 09-29-2022 Telephone encounter Karina lea APRN.CNM Work Phone: OB/Gynecology Comment on above: Vaginal Problem Start: 09-21-2022 End: 09-21-2022 ambulatory Jaguar Nunez Joey CORDERO Work Phone: Family [facility] Comment on above: Flu-like symptoms (P rimary Dx); Wheezing Start: 09-21-2022 End: 09-21-2022 Telemedicine consultation with patient Jaguar Castellanoneda CORDERO Work Phone: [facility] Start: 09-20-2022 End: 09-20-2022 Subsequent hospital visit by physician Mri Radio [facility] (I-Stat/1.5t) Work Phone: Radiology Comment on above: No Show Start: 09-14-2022 End: 09-14-2022 Patient encounter procedure Johnna Martinez PA-C Work Phone: [facility] Comment on above: Right hand pain (Marquita igor Dx); Right wrist pain Start: 09-13-2022 Refill Karina Gold APRN.CNM Work Phone: OB/Gynecology Comment on above: Refill Request Start: 09-07-2022 End: 09-07-2022 Patient encounter procedure José Kulkarni MD Work Phone: General Surgery Comment on above: Grade III hemorrhoid s (Primary Dx) Start: 09-05-2022 Telephone encounter Jaguar Nunez Joey CORDERO Work Phone: [facility] Comment on above: Information Start: 09-04-2022 ambulatory Jaguar red PA-C Work Phone: Family [facility] Comment on above: Physical therapy Start: 08-28-2022 Telephone encounter Jaguar Cook PA-C Work Phone: Family [facility] [place] Comment on above: Medication Request ( Flonase, not on current list) Patient Update Start: 08-25-2022 Telephone encounter Jaguar Cook PA-C Work Phone: [facility] Comment on above: Question Start: 08-23-2022 ambulatory Jaguar red PA-C Work Phone: [facility] Comment on above: Headache Start: 08-15-2022 End: 08-15-2022 Patient encounter procedure Jaguar Cook PA-C Work Phone: [facility] Comment on above: Patellofemoral arthr algia of right knee (Primary Dx) Start: 08-11-2022 End: 08-11-2022 Patient encounter procedure Dee Dee Nava MD Work Phone: Gastroenterology Comment on above: Nodule on liver Start: 08-09-2022 End: 08-09-2022 ambulatory Jennifer Whitfield APRN.CNP Work Phone: [facility] Comment on above: Chronic right should er pain (Primary Dx); Chronic pain of right knee Start: 08-09-2022 End: 08-09-2022 Telemedicine consultation with patient Jennifer Nahid MELGOZANEWSPAPER OR PERIODICAL EDITOR Work Phone: [facility] Start: 08-09-2022 End: 08-09-2022 Patient encounter procedure Karina Gold APRN.CNM Work Phone: OB/Gynecology Comment on above: Vaginal discharge (P rimary Dx); Diffuse cystic mastopathy of left breast; Pelvic pain in female Start: 08-08-2022 End: 08-08-2022 ambulatory Jaguar Cook PA-C Work Phone: [facility] Comment on above: NO SHOW (Primary Dx) Start: 08-08-2022 End: 08-08-2022 Telemedicine consultation with patient Jaguar Cook PA-C Work Phone: [facility] Start: 08-03-2022 Refill Jaguar Castellano on PA-C Work Phone: [address] [place] [address] Comment on above: Refill Request Start: 06-21-2022 Refill Jaguar Castellano on PA-C Work Phone: [facility] Comment on above: Refill Request Start: 06-15-2022 Refill Jaguar Castellano on PA-C Work Phone: [facility] Comment on above: Refill Request Start: 05-30-2022 End: 05-30-2022 Patient encounter procedure José Kulkarni MD Work Phone: General Surgery Comment on above: Skin lesion (Primary Dx); Grade III hemorrhoids Start: 05-30-2022 Telephone encounter José Kulkarni MD Work Phone: General Surgery Comment on above: Patient Question Start: 05-19-2022 End: 05-19-2022 Patient encounter procedure Indigo Candelario APRN.NEWSPAPER OR PERIODICAL EDITOR Work Phone: OB/Gynecology Comment on above: Acute vaginitis (Marquita igor Dx); Sensation of pressure in bladder area; Pelvic pain in female Start: 05-10-2022 Telephone encounter Yeison Bello charis PA-C Work Phone: [facility] Comment on above: Results Start: 05-09-2022 End: 05-09-2022 Telemedicine consultation with patient José [facility]arni MD [facility] Phone[facility] Start: 05-09-2022 End: 05-09-2022 ambulatory José Kulkarni MD Work Phone: General Surgery Comment on above: Re: Dr. Kulkarni [facility] visit Grade III hemorrhoid s (Primary Dx); Heartburn; Constipation, unspecified constipation type Start: 05-09-2022 End: 05-09-2022 Patient encounter procedure Betty Crane APRN.NEWSPAPER OR PERIODICAL EDITOR Work Phone: [facility] Comment on above: Urinary frequency (P rimary Dx) Start: 05-08-2022 Telephone encounter Betty Crane ROSARIO.NEWSPAPER OR PERIODICAL EDITOR Work Phone: [facility] Comment on above: Results Start: 05-07-2022 End: 05-07-2022 Patient encounter procedure Betty Crane APRN.NEWSPAPER OR PERIODICAL EDITOR Work Phone: [facility] Comment on above: Urinary frequency (P rimary Dx); Burning with urination Start: 05-02-2022 Telephone encounter José Kulkarni MD Work Phone: General Surgery Comment on above: Patient Question (pa in med) Start: 04-25-2022 End: 04-25-2022 Subsequent hospital visit by physician José Kulkarni MD Work Phone: Ambulatory Surgery Comment on above: Constipation, unspec ified constipation type [K59.00] Start: 04-24-2022 Telephone encounter José Kulkarni MD Work Phone: General Surgery Comment on above: Patient Question (raghu wel prep) Start: 04-22-2022 Refill José wilson MD Work Phone: General Surgery Comment on above: Refill Request Start: 04-14-2022 End: 04-14-2022 Patient encounter procedure Indigo Candelario APRN.NEWSPAPER OR PERIODICAL EDITOR Work Phone: OB/Gynecology Comment on above: Vaginal itching (Marquita igor Dx); Vaginal discharge; IUD check up Start: 04-10-2022 End: 04-10-2022 Admission to establishment Pacc Main Virtual [facility] Start: 04-10-2022 End: 04-10-2022 ambulatory Pac Virtual Pre Anesthesia Comment on above: Pre-op evaluation (P rimary Dx); Internal hemorrhoid; Essential hypertension; Hyperlipidemia with target LDL less than 130; Palpitations; Gastroesophageal reflux disease without esophagitis; Liver nodule; Elevated liver enzymes; Convulsions, unspecified convulsion type (HCC); Marijuana use; Fibromyalgia; Anxiety state Start: 04-10-2022 End: 04-10-2022 Preprocedural examination done Pacc Virtual Pre Anesthesia Start: 04-05-2022 End: 04-05-2022 ambulatory Fernanda Murphy PT Work Phone: [facility] Comment on above: Acute pain of right shoulder Start: 04-04-2022 Refill Jaguar Castellano on PA-C Work Phone: Hematology/Oncology Comment on above: Refill Request Start: 03-27-2022 Telephone encounter Jaguar Cook PA-C Work Phone: [facility] Comment on above: Results Start: 03-23-2022 ambulatory Jaguar Castellano on PA-C Work Phone: [facility] Comment on above: Shoulder Start: 03-23-2022 End: 03-23-2022 Subsequent hospital visit by physician Mri Radio [facility] (I-Stat/1.5t) Work Phone: Radiology Comment on above: Liver nodule [K76.89 ] Start: 03-20-2022 End: 03-20-2022 Patient encounter procedure Jaguar Cook PA-C Work Phone: [facility] Comment on above: Acute pain of right shoulder (Primary Dx); Fibromyalgia; Elevated liver enzymes; Diarrhea, unspecified type Start: 03-07-2022 Telephone encounter Jaguar DIAZ-C Work Phone: [facility] Comment on above: Letter Start: 03-07-2022 End: 03-07-2022 ambulatory Jaguar Cook PA-C Work Phone: [facility] Comment on above: Fibromyalgia (Primar y Dx); Elevated liver enzymes; Change in stool; Diarrhea, unspecified type; Fatigue, unspecified type Start: 03-07-2022 End: 03-07-2022 Telemedicine consultation with patient Jaguar Cook PA-C Work Phone: [facility] Start: 03-06-2022 End: 03-06-2022 Patient encounter procedure John Zaragoza MD Work Phone: [facility] Comment on above: Acute pain of right shoulder (Primary Dx) Start: 03-01-2022 End: 03-01-2022 Patient encounter procedure Yohannes Michael APRN.CNP Work Phone: [facility] Comment on above: Abdominal pain, acut e, right upper quadrant (Primary Dx) Start: 02-09-2022 Telephone encounter José Kulkarni MD Work Phone: General Surgery Comment on above: Appointment (cancel appointment for February 22) Start: 02-08-2022 Telephone encounter Lo Castellanos APRN.NEWSPAPER OR PERIODICAL EDITOR Work Phone: Pre Anesthesia Comment on above: Mobile Marketing Manager - O ther Start: 02-08-2022 End: 02-08-2022 Admission to establishment Pac [facility] Work Phone: [facility] Start: 02-08-2022 End: 02-08-2022 ambulatory Pac [facility] 1 Work Phone: Pre Anesthesia Comment on above: Pre-operative examin ation (Primary Dx); Internal hemorrhoid; Anxiety state; Essential hypertension; Hyperlipidemia with target LDL less than 130; Palpitations; Gastroesophageal reflux disease, unspecified whether esophagitis present; Elevated liver enzymes Start: 02-08-2022 End: 02-08-2022 Preprocedural examination done [facility] 1 Work Phone: Pre Anesthesia Start: 02-07-2022 End: 02-07-2022 Patient encounter procedure Nohelia Taylor APRN.NEWSPAPER OR PERIODICAL EDITOR Work Phone: OB/Gynecology Comment on above: Encounter for gyneco logical examination (general) (routine) without abnormal findings (Primary Dx); Screening for cervical cancer; Encounter for screening for human papillomavirus (HPV); Encounter for screening mammogram for breast cancer; Pelvic pain in female Start: 02-07-2022 End: 02-07-2022 Patient encounter status Nohelia Taylor APRN.CNP Work Phone: OB/Gynecology Start: 02-06-2022 Refill Jaguar red PA-C Work Phone: [facility] Comment on above: Prescription Refills My joint pain Start: 02-01-2022 Telephone encounter Jaguar Cook PA-C Work Phone: [facility] Comment on above: Results - Mri Results Start: 01-30-2022 End: 01-30-2022 Subsequent hospital visit by physician [facility] 1 Work Phone: Radiology Comment on above: Elevated liver enzym es [R74.8] Start: 01-27-2022 End: 01-27-2022 Patient encounter procedure Jaguar Nicolette Cook PA-C Work Phone: [facility] Comment on above: Urinary frequency (P rimary Dx); Essential hypertension; Hyperlipidemia with target LDL less than 130; Nonorganic sleep disorder; Fibromyalgia; Marijuana use; Anxiety state; Elevated liver enzymes; Recurrent vomiting; Diarrhea, unspecified type Start: 01-24-2022 ambulatory Jaguar Nicolette DIASC Work Phone: [facility] Start: 01-24-2022 Letter encounter Jaguar Nicolette Krishnan PA-C Work Phone: [facility] Comment on above: Letter for work Start: 01-24-2022 Telephone encounter Jaguar Nicolette Cook PA-C Work Phone: [facility] Comment on above: Patient Question Results; Letter (To be off work) Start: 01-23-2022 End: 01-23-2022 Patient encounter procedure Betty Crane ROSARIO.NEWSPAPER OR PERIODICAL EDITOR Work Phone: [facility] Comment on above: Urinary frequency (P rimary Dx); Bilirubin in urine; Abdominal bloating; Heartburn Start: 11-28-2021 Telephone encounter José Kulkarni MD Work Phone: General Surgery Comment on above: 02-21-2022 Colon EGD , 02-22-2022 UEA and hemorrhoidectomy M Start: 11-04-2020 End: 11-04-2020 Subsequent hospital visit by physician Florina [facility] Work Phone: Radiology Comment on above: Elbow pain, right [M 25.521] Start: 12-13-2017 [facility] Start: 11-22-2017 End: 11-23-2017 Evaluation and management of inpatient KARINA MEDINA [facility] Procedures Date Procedure Procedure Detail Performing Clinician Start: 03-05-2024 Urnls dip stick/tablet rgnt auto w/o microscopy [facility] Provider Start: 02-26-2024 BACTERIAL VAGINOSIS NAAT Dwain Hawkins APRN.NEWSPAPER OR PERIODICAL EDITOR Work Phone: Start: 02-26-2024 Iadna chlamydia trachomatis amplified probe tq Dwain Hawkins APRN.NEWSPAPER OR PERIODICAL EDITOR Work Phone: Start: 02-26-2024 Urnls dip stick/tablet rgnt auto w/o microscopy Dwain Hawkins APRN.NEWSPAPER OR PERIODICAL EDITOR Work Phone: Start: 01-30-2024 Radiologic exam knee complete 4/more views John Zaragoza MD Work Phone: Start: 01-15-2024 Lipid 1996 panel - Serum or Plasma Lamine Orozco GAME PROGRAMMER.DIRECTOR T[employer] MARK[employer]ING Work Phone: Start: 01-07-2024 Adult depression screening assessment Aniya Ramírez APRN.NEWSPAPER OR PERIODICAL EDITOR Work Phone: Start: 12-07-2023 Radiologic exam abdomen 1 view Jessica Pryor APRN.NEWSPAPER OR PERIODICAL EDITOR Work Phone: Start: 11-28-2023 Urnls dip stick/tablet rgnt auto w/o microscopy Karina Chandler GAME PROGRAMMER.NEWSPAPER OR PERIODICAL EDITOR Work Phone: Start: 07-26-2023 Urnls dip stick/tablet rgnt auto w/o microscopy Davide Santiago APRN.NEWSPAPER OR PERIODICAL EDITOR Work Phone: Start: 07-11-2023 Radex shoulder complete minimum 2 views Jessica Hutchison APRN.NEWSPAPER OR PERIODICAL EDITOR Work Phone: Start: 07-11-2023 Urnls dip stick/tablet rgnt auto w/o microscopy Jessica Hutchison APRN.NEWSPAPER OR PERIODICAL EDITOR Work Phone: Start: 06-25-2023 Radiologic exam knee complete 4/more views Davide Santiago APRN.NEWSPAPER OR PERIODICAL EDITOR Work Phone: Start: 04-17-2023 Mri brain brain stem w/o contrast material Guillermo Sheffield MD Work Phone: Start: 04-04-2023 Us breast uni real time with image limited Nohelia Taylor GAME PROGRAMMER.NEWSPAPER OR PERIODICAL EDITOR Work Phone: Start: 04-04-2023 Mammography Indigo Candelario GAME PROGRAMMER.NEWSPAPER OR PERIODICAL EDITOR Work Phone: Start: 03-15-2023 Radiologic exam chest 2 views Yohannes garcia GAME PROGRAMMER.NEWSPAPER OR PERIODICAL EDITOR Work Phone: Start: 03-14-2023 Radex spine lumbosacral 2/3 views Elizabeth Sheffield MD Work Phone: Start: 03-01-2023 STREP A MOLECULAR (POC) Jessica olmstead GAME PROGRAMMER.NEWSPAPER OR PERIODICAL EDITOR Work Phone: Start: 01-24-2023 STREP A MOLECULAR (POC) Yeison Ignacio PA-C Work Phone: Start: 12-11-2022 RONDA SCREENING W CHRIS Nohelia Taylor GAME PROGRAMMER.NEWSPAPER OR PERIODICAL EDITOR Work Phone: Start: 12-11-2022 Mammography Mammography Coordinator Start: 11-30-2022 Radiologic exam chest 2 views Jaguar Cook PA-C Work Phone: Start: 11-07-2022 Radiologic exam knee complete 4/more views Jennifer Whitfield GAME PROGRAMMER.NEWSPAPER OR PERIODICAL EDITOR Work Phone: Start: 10-30-2022 Radiologic exam chest 2 views Guillermo Sheffield MD Work Phone: Start: 05-19-2022 Urnls dip stick/tablet rgnt auto w/o microscopy Indigo Candelario GAME PROGRAMMER.NEWSPAPER OR PERIODICAL EDITOR Work Phone: Start: 05-07-2022 Urnls dip stick/tablet rgnt auto w/o microscopy Yeison Ignacio PA-C Work Phone: Start: 04-25-2022 Esophagogastroduodenoscopy transoral diagnostic José Kulkarni MD Work Phone: Start: 04-25-2022 Colonoscopy flx dx w/collj spec when pfrmd José Kulkarni MD Work Phone: Start: 04-25-2022 Colonoscopy José Kulkarni MD Work Phone: Start: 03-23-2022 Mri abdomen w/o & w/contrast material Jaguar Cook PA-C Work Phone: Start: 02-28-2022 Adult depression screening assessment Yohannes Michael GAME PROGRAMMER.NEWSPAPER OR PERIODICAL EDITOR Work Phone: Start: 01-30-2022 Us abdominal real time w/image limited M Nicolette Cook PA-C Work Phone: Start: 01-23-2022 Urnls dip stick/tablet rgnt auto w/o microscopy Betty Crane GAME PROGRAMMER.NEWSPAPER OR PERIODICAL EDITOR Work Phone: Start: 05-25-2021 Mammography José Kulkarni MD Work Phone: Start: 11-04-2020 Radex elbow complete minimum 3 views John Zaragoza MD Work Phone: Start: 04-22-2020 Lipid 1996 panel - Serum or Plasma Lloyd Whitfield GAME PROGRAMMER.NEWSPAPER OR PERIODICAL EDITOR Work Phone: Start: 04-09-2019 Adult depression screening assessment José Kulkarni MD Work Phone: Plan of Treatment Date Care Activity Detail Author Start: 03-31-2033 Urine microalbumin profile DTaP,Tdap,Td Vaccine (2 - Td or Tdap) [facility] Start: 04-25-2032 Colonoscopy COLONOSCOPY [facility] Start: 04-25-2032 COLORECTAL CANCER SCREENING COLORECTAL CANCER SCREENING [facility] Start: 04-25-2032 Screening for malignant neoplasm of colon [facility] Start: 04-28-2029 Screening for malignant neoplasm of cervix Cervical Cancer Screening [facility] Start: 01-14-2029 Lipid panel Lipid Screening [facility] Start: 02-07-2027 HPV TESTING HPV TESTING [facility] Start: 02-07-2027 PAP TESTING PAP TESTING [facility] Start: 02-07-2027 Screening for malignant neoplasm of cervix [facility] Start: 01-14-2027 Diabetes Screening Diabetes Screening [facility] Start: 10-26-2025 DIABETES SCREEN DIABETES SCREEN [facility] Start: 10-26-2025 Diabetes Screening Diabetes Screening [facility] Start: 05-20-2025 BP Controlled (<130/80) BP Controlled (<130/80) [facility] Start: 04-22-2025 Lipid 1996 panel - Serum or Plasma Lipid Screening [facility] Start: 04-22-2025 Lipid panel Lipid Screening [facility] Start: 04-22-2025 LIPID SCREEN LIPID SCREEN [facility] Start: 01-06-2025 Covid-19 Vaccine () Covid-19 Vaccine () [facility] Comment on above: Postponed from 06/01/2023 (Declined at t his time) Start: 01-06-2025 Depression Screening Depression Screening [facility] Start: 10-08-2024 Annual PCP Team Chronic Disease Visit Annual PCP Team Chronic Disease Visit [facility] Start: 07-30-2024 End: 07-30-2024 Patient encounter procedure 07/30/2024 10:45 AM EDT Office Visit OB/Gynecology [address] [place] [address] Aniya Ramírez APRN.NEWSPAPER OR PERIODICAL EDITOR [address] [place] [address] Recheck for BV and other STD etc OB/Gynecology Comment on above: Recheck for BV and other STD etc Start: 07-30-2024 End: 07-30-2024 Nursing evaluation of patient and report 07/30/2024 10:15 AM EDT Nurse Visit General Surgery [address] [place] [address] Wstr, Nurse Gens [facility] [address] [place] [address] 1 WK STITCHES REMOVAL General Surgery Comment on above: 1 WK STITCHES REMOVAL Start: 07-25-2024 End: 07-25-2024 Patient encounter procedure 07/25/2024 3:20 PM EDT Office Visit [facility] [address] [place] [address] Mignon Orozco GAME PROGRAMMER.NEWSPAPER OR PERIODICAL EDITOR [address] [place] [address] [facility] Comment on above: transfer to Kyara Orozco Start: 07-23-2024 End: 07-23-2024 Patient encounter procedure General Surgery Comment on above: MYCHART REQUEST REMOVE SKIN TAGS MYCHART REQUEST DELFINA VE SKIN TAGS, right butt cheek, right thigh and left thigh ra Start: 07-16-2024 End: 10-15-2024 UROGENITAL UREAPLASMA AND MYCOPLASMA SPECIES BY PCR, FOR GENITAL, RECTAL, URINE SAMPLES UROGENITAL UREAPLASMA AND MYCOPLASMA SPECIES BY PCR, FOR GENITAL, RECTAL, URINE SAMPLES Lab Routine Vaginal discharge Expected: 07/16/2024, Expires: 10/15/2024 [facility] Comment on above: Expected: 07/16/2024, Expires: Start: 07-07-2024 End: 07-07-2024 Patient encounter procedure 07/07/2024 2:20 PM EDT Office Visit Dermatology [address] [id number] Margarette Simpson APRN.NEWSPAPER OR PERIODICAL EDITOR [address] [place] [address] upper back has bumps, itches. has been there for a couple years Dermatology Comment on above: upper back has bumps, itches. has been t here for a couple years Start: 06-25-2024 BP Controlled (<130/80) BP Controlled (<130/80) [facility] in Start: 06-19-2024 End: 06-19-2024 Patient encounter procedure 06/19/2024 11:20 AM EDT Appointment Radiology [address] [place], [place] [id number] Hepatic lesion [K76.9] Radiology Comment on above: Hepatic lesion [K76.9] Start: 06-11-2024 End: 06-11-2024 Patient encounter procedure General Surgery Comment on above: several skin tags - growing on my right butt cheek. I have one on my right thigh and one on left thigh there are a few on my feet but those ones I don t know if they can be removed, but I would like them looked at to see what he recommends. several skin tags - growing on my right butt cheek, Start: 06-01-2024 Covid-19 Vaccine ( season) Covid-19 Vaccine ( season) [facility] Start: 06-01-2024 Covid-19 Vaccine () Covid-19 Vaccine () [facility] Start: 06-01-2024 Influenza vaccination [facility] Start: 05-29-2024 ANNUAL PCP TEAM CHRONIC DISEASE VISIT ANNUAL PCP TEAM CHRONIC DISEASE VISIT [facility] Start: 05-21-2024 End: 05-21-2024 Patient encounter procedure 05/21/2024 3:00 PM EDT Office Visit OB/Gynecology [address] [place] [address] Aniya Ramírez APRN.NEWSPAPER OR PERIODICAL EDITOR [address] [place] [address] Possible yeast from the most recent antibiotic I was on and would like to make sure that the micro plasma infection went away OB/Gynecology Comment on above: Possible yeast from the most recent anti biotic I was on and would like to make sure that the micro plasma infection went away Start: 05-21-2024 End: 08-20-2024 Bacteria identified in Urine by Culture URINE CULTURE Microbiology Routine Pelvic pressure in female Expected: 05/21/2024, Expires: 08/20/2024 [facility] Comment on above: Expected: 05/21/2024, Expires: Start: 05-21-2024 End: 08-20-2024 Hepatitis B virus surface Ag [Presence] in Serum HEPATITIS B SURFACE ANTIGEN Lab Routine Screening examination for STD (sexually transmitted disease) Expected: 05/21/2024, Expires: 08/20/2024 [facility] Comment on above: Expected: 05/21/2024, Expires: Start: 05-21-2024 End: 08-20-2024 Hepatitis C virus Ab [Presence] in Serum HEPATITIS C ANTIBODY IA WITH CONFIRMATION Lab Routine Screening examination for STD (sexually transmitted disease) Expected: 05/21/2024, Expires: 08/20/2024 [facility] Comment on above: Expected: 05/21/2024, Expires: Start: 05-21-2024 End: 08-20-2024 HIV 1+2 Ab [Presence] in Serum or Plasma by Immunoassay HIV 1/2 COMBO WITH REFLEX TO DIFFERENTIATION Lab Routine Screening examination for STD (sexually transmitted disease) Expected: 05/21/2024, Expires: 08/20/2024 [facility] Comment on above: Expected: 05/21/2024, Expires: Start: 05-21-2024 End: 08-20-2024 SYPHILIS TOTAL W/REFLEX SYPHILIS TOTAL W/REFLEX Lab Routine Screening examination for STD (sexually transmitted disease) Expected: 05/21/2024, Expires: 08/20/2024 [facility] Work Phone: Comment on above: Expected: 05/21/2024, Expires: Start: 05-20-2024 End: 05-20-2024 Patient encounter procedure 05/20/2024 1:30 PM EDT Office Visit Gastroenterology [address] [place] [address] Clark Zaldivar, GAME PROGRAMMER.NEWSPAPER OR PERIODICAL EDITOR [address] [place] [address] IBS Symptoms, per my chart request Gastroenterology Comment on above: IBS Symptoms, per my chart request Start: 05-19-2024 End: 05-19-2024 Patient encounter procedure 05/19/2024 3:40 PM EDT Office Visit [facility] [address] [place], [place] [id number] Mignon Orozco GAME PROGRAMMER.NEWSPAPER OR PERIODICAL EDITOR [address] [place], [place] [id number] Test for COPD [facility] [place] Comment on above: Test for COPD Start: 05-12-2024 End: 05-12-2024 Patient encounter procedure 05/12/2024 11:00 AM EDT Office Visit Gastroenterology [id number] [place] [address] Clark Zaldivar, GAME PROGRAMMER.NEWSPAPER OR PERIODICAL EDITOR [address] [place] [address] IBS Symptoms, per my chart request Gastroenterology Comment on above: IBS Symptoms, per my chart request Start: 04-28-2024 End: 07-28-2024 Hepatitis B virus surface Ag [Presence] in Serum HEPATITIS B SURFACE ANTIGEN Lab Routine Screening examination for STD (sexually transmitted disease) Expected: 04/28/2024, Expires: 07/28/2024 [facility] Comment on above: Expected: 04/28/2024, Expires: Start: 04-28-2024 End: 07-28-2024 Hepatitis C virus Ab [Presence] in Serum HEPATITIS C ANTIBODY IA WITH CONFIRMATION Lab Routine Screening examination for STD (sexually transmitted disease) Expected: 04/28/2024, Expires: 07/28/2024 [facility] Comment on above: Expected: 04/28/2024, Expires: Start: 04-28-2024 End: 07-28-2024 HIV 1+2 Ab [Presence] in Serum or Plasma by Immunoassay HIV 1/2 COMBO WITH REFLEX TO DIFFERENTIATION Lab Routine Screening examination for STD (sexually transmitted disease) Expected: 04/28/2024, Expires: 07/28/2024 [facility] Comment on above: Expected: 04/28/2024, Expires: Start: 04-28-2024 End: 07-28-2024 SYPHILIS TOTAL W/REFLEX SYPHILIS TOTAL W/REFLEX Lab Routine Screening examination for STD (sexually transmitted disease) Expected: 04/28/2024, Expires: 07/28/2024 [facility] Work Phone: Comment on above: Expected: 04/28/2024, Expires: Start: 04-14-2024 End: 04-14-2024 Patient encounter procedure 04/14/2024 4:00 PM EDT Office Visit Family [facility] [place] [address] [place] [address] Mignon Orozco APRN.DIRECTOR TARGETED MARKETING [address] [place] [address] HTN Follow up Family [facility] [place] Comment on above: HTN Follow up Start: 04-04-2024 Mammography [facility] Start: 04-04-2024 Screening for malignant neoplasm of breast Mammogram Screening [facility] Start: 03-17-2024 End: 03-17-2024 Patient encounter procedure 03/17/2024 4:00 PM EDT Office Visit Orthopaedics [address] [place] [address] Jonah Ibrahim MD [address] [place] [address] Knee pain I guess I had Fluid on it Orthopaedics Comment on above: Knee pain I guess I had Fluid on it Start: 03-12-2024 ANNUAL PCP TEAM CHRONIC DISEASE VISIT ANNUAL PCP TEAM CHRONIC DISEASE VISIT [facility] Start: 03-10-2024 End: 03-10-2024 Patient encounter procedure 03/10/2024 10:45 AM EDT Office Visit OB/Gynecology [address] [place] [address] Aniya Ramírez APRN.NEWSPAPER OR PERIODICAL EDITOR [address] [place] [address] Vaginal itching [N89.8] OB/Gynecology Comment on above: Vaginal itching [N89.8] Start: 03-05-2024 ANNUAL PCP TEAM CHRONIC DISEASE VISIT ANNUAL PCP TEAM CHRONIC DISEASE VISIT [facility] Start: 02-28-2024 End: 02-28-2024 ambulatory 02/28/2024 9:40 AM EDT [facility] [place] [address] [place] [address] iMgnon Orozco APRN.DIRECTOR TARGETED MARKETING [address] [place] [address] Blood pressure Family [facility] [place] Comment on above: Blood pressure Start: 02-09-2024 BP CONTROLLED (<130/80) BP CONTROLLED (<130/80) [facility] Start: 02-05-2024 End: 02-05-2024 Patient encounter procedure 02/05/2024 10:20 AM EDT Office Visit Family [facility] [address] [place] [address] Mignon Orozco APRN.DIRECTOR TARGETED MARKETING [address] [place] [address] 1 mo BP check [facility] Comment on above: 1 mo BP check Start: 01-10-2024 BP CONTROLLED (<130/80) BP CONTROLLED (<130/80) [facility] in Start: 01-07-2024 End: 04-07-2024 25-hydroxyvitamin D3 [Mass/volume] in Serum or Plasma VITAMIN D 25 HYDROXY Lab Routine Fibromyalgia Expected: 01/07/2024, Expires: 04/07/2024 [facility] Work Phone: Comment on above: Expected: 01/07/2024, Expires: Start: 01-07-2024 End: 04-07-2024 CBC W Auto Differential panel - Blood CBC + DIFF Lab Routine Essential hypertension Gastroesophageal reflux disease without esophagitis Expected: 01/07/2024, Expires: 04/07/2024 [facility] Work Phone: Comment on above: Expected: 01/07/2024, Expires: Start: 01-07-2024 End: 04-07-2024 Cobalamin (Vitamin B12) [Mass/volume] in Serum or Plasma VITAMIN B12 BLOOD Lab Routine Fibromyalgia Headache, unspecified headache type Expected: 01/07/2024, Expires: 04/07/2024 [facility] Work Phone: Comment on above: Expected: 01/07/2024, Expires: Start: 01-07-2024 End: 04-07-2024 Comprehensive metabolic 2000 panel - Serum or Plasma COMP METABOLIC PANEL Lab Routine Prediabetes Expected: 01/07/2024, Expires: 04/07/2024 [facility] Work Phone: Comment on above: Expected: 01/07/2024, Expires: Start: 01-07-2024 End: 04-07-2024 Hemoglobin A1c in Blood HGB A1C Lab Routine Prediabetes Expected: 01/07/2024, Expires: 04/07/2024 [facility] Work Phone: Comment on above: Expected: 01/07/2024, Expires: 4 Start: 01-07-2024 End: 04-07-2024 Lipid 1996 panel - Serum or Plasma LIPID PANEL BASIC Lab Routine Screening for hyperlipidemia Expected: 01/07/2024, Expires: 04/07/2024 [facility] Work Phone: Comment on above: Expected: 01/07/2024, Expires: Start: 01-07-2024 End: 04-07-2024 Magnesium [Mass/volume] in Serum or Plasma MAGNESIUM BLD Lab Routine Essential hypertension Fibromyalgia Headache, unspecified headache type Expected: 01/07/2024, Expires: 04/07/2024 [facility] Work Phone: Comment on above: Expected: 01/07/2024, Expires: Start: 01-07-2024 End: 04-07-2024 Thyrotropin [Units/volume] in Serum or Plasma TSH BLD Lab Routine Essential hypertension Prediabetes Expected: 01/07/2024, Expires: 04/07/2024 [facility] Work Phone: Comment on above: Expected: 01/07/2024, Expires: 4 Start: 01-03-2024 BP CONTROLLED (<130/80) BP CONTROLLED (<130/80) [facility] Start: 12-12-2023 Mammography MAMMOGRAM [facility] Start: 11-06-2023 ANNUAL PCP TEAM CHRONIC DISEASE VISIT ANNUAL PCP TEAM CHRONIC DISEASE VISIT [facility] Start: 10-17-2023 ANNUAL PCP TEAM CHRONIC DISEASE VISIT ANNUAL PCP TEAM CHRONIC DISEASE VISIT [facility] Start: 10-01-2023 Behavioral Health Screening Behavioral Health Screening [facility] Start: 10-01-2023 Depression Assessment Depression Assessment [facility] Start: 09-21-2023 ANNUAL PCP TEAM CHRONIC DISEASE VISIT ANNUAL PCP TEAM CHRONIC DISEASE VISIT [facility] Start: 08-15-2023 ANNUAL PCP TEAM CHRONIC DISEASE VISIT ANNUAL PCP TEAM CHRONIC DISEASE VISIT [facility] Start: 08-15-2023 COVID-19 VACCINE (#1) COVID-19 VACCINE (#1) [facility] Comment on above: Postponed from 05/08/1978 (Declined at t his time) Start: 08-09-2023 ANNUAL PCP TEAM CHRONIC DISEASE VISIT ANNUAL PCP TEAM CHRONIC DISEASE VISIT [facility] Start: 08-09-2023 BP CONTROLLED (<130/80) BP CONTROLLED (<130/80) [facility] Start: 08-08-2023 ANNUAL PCP TEAM CHRONIC DISEASE VISIT ANNUAL PCP TEAM CHRONIC DISEASE VISIT [facility] Start: 07-11-2023 End: 09-10-2023 Hepatitis B virus surface Ag [Presence] in Serum HEP B SURF AG SCRN Lab Routine Screening for STD (sexually transmitted disease) Expected: 07/11/2023, Expires: 09/10/2023 [facility] Work Phone: Comment on above: Expected: 07/11/2023, Expires: 3 Start: 07-11-2023 End: 09-10-2023 Hepatitis C virus Ab [Presence] in Serum HEPATITIS C ANTIBODY IA WITH CONFIRMATION Lab Routine Screening for STD (sexually transmitted disease) Expected: 07/11/2023, Expires: 09/10/2023 [facility] Work Phone: Comment on above: Expected: 07/11/2023, Expires: 3 Start: 07-11-2023 End: 09-10-2023 HERPES SIMPLEX TYPE 1 AND 2 IG HERPES SIMPLEX TYPE 1 AND 2 IG Lab Routine Screening for STD (sexually transmitted disease) Expected: 07/11/2023, Expires: 09/10/2023 [facility] Work Phone: Comment on above: Expected: 07/11/2023, Expires: 3 Start: 07-11-2023 End: 09-10-2023 HIV 1+2 Ab [Presence] in Serum or Plasma by Immunoassay HIV 1 2 COMBO(AG/AB),WITH REFLEX TO DIFFERENTIATION Lab Routine Screening for STD (sexually transmitted disease) Expected: 07/11/2023, Expires: 09/10/2023 [facility] Work Phone: Comment on above: Expected: 07/11/2023, Expires: 3 Start: 07-11-2023 End: 09-10-2023 SYPHILIS TOTAL W/REFLEX SYPHILIS TOTAL W/REFLEX Lab Routine Screening for STD (sexually transmitted disease) Expected: 07/11/2023, Expires: 09/10/2023 [facility] Work Phone: Comment on above: Expected: 07/11/2023, Expires: 3 Start: 06-01-2023 Covid-19 Vaccine () Covid-19 Vaccine () [facility] Start: 06-01-2023 Influenza vaccination [facility] Start: 03-30-2023 Influenza vaccination INFLUENZA (#1) [facility] Comment on above: Postponed from 06/01/2022 (Declined at t his time) Start: 03-20-2023 ANNUAL PCP TEAM CHRONIC DISEASE VISIT ANNUAL PCP TEAM CHRONIC DISEASE VISIT [facility] Start: 03-20-2023 BP CONTROLLED (<130/80) BP CONTROLLED (<130/80) [facility] Start: 03-07-2023 ANNUAL PCP TEAM CHRONIC DISEASE VISIT ANNUAL PCP TEAM CHRONIC DISEASE VISIT [facility] Start: 03-01-2023 End: 03-15-2023 Influenza virus A and B RNA and SARS-CoV-2 (COVID-19) N gene panel - Respiratory specimen by DANA with probe detection [facility] Work Phone: Comment on above: Expected: 03/01/2023, Expires: 3 Start: 02-28-2023 Adult depression screening assessment DEPRESSION SCREENING [facility] Start: 02-07-2023 BP CONTROLLED (<130/80) BP CONTROLLED (<130/80) [facility] in Start: 01-27-2023 ANNUAL PCP TEAM CHRONIC DISEASE VISIT ANNUAL PCP TEAM CHRONIC DISEASE VISIT [facility] Start: 2022 COLOGUARD (FIT-DNA) COLOGUARD (FIT-DNA) [facility] Start: [address] COLONOGRAPHY [facility] Start: 2022 FECAL OCCULT BLOOD FECAL OCCULT BLOOD [facility] Start: 2022 Screening for malignant neoplasm of colon [facility] Start: 2022 SIGMOIDOSCOPY SIGMOIDOSCOPY [facility] Start: 10-26-2022 End: 12-26-2022 Hemoglobin A1c in Blood [facility] Work Phone: Comment on above: Expected: 10/26/2022, Expires: 3 Start: 10-10-2022 ANNUAL PCP TEAM CHRONIC DISEASE VISIT ANNUAL PCP TEAM CHRONIC DISEASE VISIT [facility] Start: 10-01-2022 DEPRESSION ASSESSMENT DEPRESSION ASSESSMENT [facility] Start: 07-06-2022 HPV TESTING HPV TESTING [facility] Start: 07-06-2022 PAP TESTING PAP TESTING [facility] Start: 06-01-2022 Influenza vaccination [facility] Start: 05-25-2022 Mammography MAMMOGRAM [facility] Start: 01-27-2022 End: 03-29-2022 Acute hepatitis 2000 panel - Serum [facility] Work Phone: Comment on above: Expected: 01/27/2022, Expires: 2 Start: 01-27-2022 End: 03-29-2022 Cytomegalovirus IgG Ab [Units/volume] in Serum or Plasma [facility] Work Phone: Comment on above: Expected: 01/27/2022, Expires: 2 Start: 01-27-2022 End: 03-29-2022 ADINA SUAZO PANEL [facility] Work Phone: Comment on above: Expected: 01/27/2022, Expires: 2 Start: 01-27-2022 End: 03-29-2022 HIV 1+2 Ab [Presence] in Serum or Plasma by Immunoassay [facility] Work Phone: Comment on above: Expected: 01/27/2022, Expires: 2 Start: 01-23-2022 End: 03-25-2022 CELIAC SCREEN WITH REFLEX [facility] Work Phone: Comment on above: Expected: 01/23/2022, Expires: 2 Start: 01-23-2022 End: 03-25-2022 Comprehensive metabolic 2000 panel - Serum or Plasma [facility] Work Phone: Comment on above: Expected: 01/23/2022, Expires: 2 Start: 10-01-2021 DEPRESSION ASSESSMENT DEPRESSION ASSESSMENT [facility] Start: 06-01-2021 Influenza vaccination INFLUENZA (#1) [facility] Start: 04-09-2020 Adult depression screening assessment DEPRESSION SCREENING [facility] Start: 1996 Hepatitis B Vaccine (1 of 3 - 19+ 3-dose series) Hepatitis B Vaccine (1 of 3 - 19+ 3-dose series) [facility] Start: 1996 Urine microalbumin profile [facility] Start: 1995 BP CONTROLLED (<130/80) BP CONTROLLED (<130/80) [facility] Start: 1982 COVID-19 VACCINE (#1) COVID-19 VACCINE (#1) [facility] Start: 1982 COVID-19 VACCINE (1) COVID-19 VACCINE (1) [facility] Start: 05-08-1978 COVID-19 VACCINE (#1) COVID-19 VACCINE (#1) [facility] Start: 1977 HEPATITIS B (1 of 3 - 3-dose series) HEPATITIS B (1 of 3 - 3-dose series) [facility] Start: 1977 Hepatitis B Vaccine (1 of 3 - 3-dose series) Hepatitis B Vaccine (1 of 3 - 3-dose series) [facility] Bacteria identified in Urine by Culture URINE CULTURE Microbiology Routine Urinary frequency Ordered: 01/23/2022 [facility] Work Phone: Comment on above: Ordered: 01/23/2022 Bacteria identified in Urine by Culture URINE CULTURE Microbiology Routine Urinary frequency Burning with urination Ordered: 05/07/2022 [facility] Work Phone: Comment on above: Ordered: 05/07/2022 Bacteria identified in Urine by Culture URINE CULTURE Microbiology Routine Urinary frequency 05/09/2022 11:[address] [facility] Work Phone: Bacteria identified in Urine by Culture URINE CULTURE Microbiology Routine Sensation of pressure in bladder area 05/19/2022 10:[address] [facility] Work Phone: Bacteria identified in Urine by Culture URINE CULTURE Microbiology Routine Urinary frequency 07/11/2023 12:[address] [facility] Work Phone: Bacteria identified in Urine by Culture URINE CULTURE Microbiology Routine Urinary frequency 07/26/2023 2:[address] [facility] Work Phone: Bacteria identified in Urine by Culture URINE CULTURE Microbiology Routine Dysuria 11/28/2023 9:24 AM [facility] Work Phone: Bacteria identified in Urine by Culture URINE CULTURE Microbiology Routine Urinary frequency 12/17/2023 2:[address] [facility] Work Phone: Bacteria identified in Urine by Culture URINE CULTURE Microbiology Routine Burning with urination 02/26/2024 11:[address] [facility] Work Phone: Bacteria identified in Urine by Culture URINE CULTURE Microbiology Routine Vaginal itching Encounter for screening examination for sexually transmitted disease 03/05/2024 1:18 PM [facility] BACTERIAL VAGINOSIS AMPLIFICATION BACTERIAL VAGINOSIS AMPLIFICATION Lab Routine Acute vaginitis Sensation of pressure in bladder area Pelvic pain in female 05/19/2022 10:[address] [facility] Work Phone: BACTERIAL VAGINOSIS AMPLIFICATION BACTERIAL VAGINOSIS AMPLIFICATION Lab Routine Vaginal discharge Ordered: 08/09/2022 [facility] Work Phone: Comment on above: Ordered: 08/09/2022 BACTERIAL VAGINOSIS AMPLIFICATION BACTERIAL VAGINOSIS AMPLIFICATION Lab Routine Vaginal discharge Vaginal odor 01/09/2023 10:[address] [facility] Work Phone: BACTERIAL VAGINOSIS AMPLIFICATION BACTERIAL VAGINOSIS AMPLIFICATION Lab Routine Screen for STD (sexually transmitted disease) Vaginal discharge 02/08/2023 9:[address] [facility] Work Phone: BACTERIAL VAGINOSIS NAAT BACTERIAL VAGINOSIS NAAT Lab Routine Vulvar itching 05/18/2023 9:41 AM T [facility] Work Phone: BACTERIAL VAGINOSIS NAAT BACTERIAL VAGINOSIS NAAT Lab Routine Vaginal odor 07/11/2023 12:57 PM T [facility] Work Phone: BACTERIAL VAGINOSIS NAAT BACTERIAL VAGINOSIS NAAT Lab Routine Vaginal discharge 11/28/2023 9:24 AM [facility] Work Phone: BACTERIAL VAGINOSIS NAAT BACTERIAL VAGINOSIS NAAT Lab Routine Vaginal odor Urinary frequency 12/17/2023 2:50 PM T [facility] Work Phone: BACTERIAL VAGINOSIS NAAT BACTERIAL VAGINOSIS NAAT Lab Routine Vaginal itching Encounter for screening examination for sexually transmitted disease 03/05/2024 1:23 PM T [facility] BACTERIAL VAGINOSIS NAAT BACTERIAL VAGINOSIS NAAT Lab Routine Vaginal discharge 04/28/2024 11:01 AM T [facility] BACTERIAL VAGINOSIS NAAT BACTERIAL VAGINOSIS NAAT Lab Routine Screening examination for STD (sexually transmitted disease) 05/21/2024 3:12 PM T [facility] BACTERIAL VAGINOSIS NAAT BACTERIAL VAGINOSIS NAAT Lab Routine Vaginal discharge Ordered: 07/16/2024 [facility] Comment on above: Ordered: 07/16/2024 TIFFANY / TRICHOMONA S AMPLIFICATION TIFFANY / TRICHOMONAS AMPLIFICATION Lab Routine Acute vaginitis Sensation of pressure in bladder area Pelvic pain in female 05/19/2022 10:[address] [facility] Work Phone: TIFFANY / TRICHOMONA S AMPLIFICATION TIFFANY / TRICHOMONAS AMPLIFICATION Microbiology Routine Vaginal discharge Ordered: 08/09/2022 [facility] Work Phone: Comment on above: Ordered: 08/09/2022 TIFFANY / TRICHOMONA S AMPLIFICATION TIFFANY / TRICHOMONAS AMPLIFICATION Microbiology Routine Vaginal discharge Vaginal odor 01/09/2023 10:[address] [facility] Work Phone: TIFFANY / TRICHOMONA S AMPLIFICATION TIFFANY / TRICHOMONAS AMPLIFICATION Microbiology Routine Screen for STD (sexually transmitted disease) Vaginal discharge 02/08/2023 9:02 AM T [facility] Work Phone: TIFFANY/TRICHOMONAS NAAT TIFFANY/TRICHOMONAS NAAT Lab Routine Vulvar itching 05/18/2023 9:[address] [facility] Work Phone: TIFFANY/TRICHOMONAS NAAT TIFFANY/TRICHOMONAS NAAT Lab Routine Vaginal odor 07/11/2023 12:[address] [facility] Work Phone: TIFFANY/TRICHOMONAS NAAT TIFFANY/TRICHOMONAS NAAT Lab Routine Vaginal discharge 11/28/2023 9:24 AM [facility] Work Phone: TIFFANY/TRICHOMONAS NAAT TIFFANY/TRICHOMONAS NAAT Lab Routine Urinary frequency 12/17/2023 2:[address] [facility] Work Phone: TIFFANY/TRICHOMONAS NAAT TIFFANY/TRICHOMONAS NAAT Lab Routine Vaginal itching Encounter for screening examination for sexually transmitted disease 03/05/2024 1:23 PM [facility] TIFFANY/TRICHOMONAS NAAT TIFFANY/TRICHOMONAS NAAT Lab Routine Vaginal discharge 04/28/2024 11:01 AM [facility] TIFFANY/TRICHOMONAS NAAT TIFFANY/TRICHOMONAS NAAT Lab Routine Screening examination for STD (sexually transmitted disease) 05/21/2024 3:12 PM [facility] TIFFANY/TRICHOMONAS NAAT TIFFANY/TRICHOMONAS NAAT Lab Routine Vaginal discharge Ordered: 07/16/2024 [facility] Comment on above: Ordered: 07/16/2024 Chlamydia trachomatis+Neisseria gonorrhoeae DNA [Presence] in Unspecified specimen by DANA with probe detection GC/CHLAMYDIA DNA DET Lab Routine Screen for STD (sexually transmitted disease) Vaginal discharge 02/08/2023 9:[address] [facility] Work Phone: Chlamydia trachomatis+Neisseria gonorrhoeae DNA [Presence] in Unspecified specimen by DANA with probe detection GONORRHEA/CHLAMYDIA NAAT Lab Routine Vaginal odor 07/11/2023 12:[address] [facility] Work Phone: Chlamydia trachomatis+Neisseria gonorrhoeae DNA [Presence] in Unspecified specimen by DANA with probe detection GONORRHEA/CHLAMYDIA NAAT Lab Routine Vaginal discharge 11/28/2023 9:24 AM [facility] Work Phone: Chlamydia trachomatis+Neisseria gonorrhoeae DNA [Presence] in Unspecified specimen by DANA with probe detection GONORRHEA/CHLAMYDIA NAAT Lab Routine Vaginal odor Vaginal itching Urinary frequency 12/17/2023 2:50 PM T [facility] Work Phone: Chlamydia trachomatis+Neisseria gonorrhoeae DNA [Presence] in Unspecified specimen by DANA with probe detection GONORRHEA/CHLAMYDIA NAAT Lab Routine Vaginal itching Encounter for screening examination for sexually transmitted disease 03/05/2024 1:23 PM EDT [facility] Chlamydia trachomatis+Neisseria gonorrhoeae DNA [Presence] in Unspecified specimen by DANA with probe detection GONORRHEA/CHLAMYDIA NAAT Lab Routine Screening examination for STD (sexually transmitted disease) 04/28/2024 11:01 AM EDT [facility] Chlamydia trachomatis+Neisseria gonorrhoeae DNA [Presence] in Unspecified specimen by DANA with probe detection GONORRHEA/CHLAMYDIA NAAT Lab Routine Screening examination for STD (sexually transmitted disease) 05/21/2024 3:12 PM EDT [facility] Chlamydia trachomatis+Neisseria gonorrhoeae DNA [Presence] in Unspecified specimen by DANA with probe detection GONORRHEA/CHLAMYDIA NAAT Lab Routine Vaginal discharge Ordered: 07/16/2024 [facility] Work Phone: Comment on above: Ordered: 07/16/2024 End: 02-05-2025 DBT Breast - bilateral screening RONDA SCREENING W CHRIS Radiology Routine Encounter for screening mammogram for malignant neoplasm of breast 1 Occurrences starting 01/07/2024 until 02/05/2025 [facility] Work Phone: Comment on above: 1 Occurrences starting 01/07/2024 until 02/05/2025 End: 09-08-2023 Diagnostic mammography computer-aided detcj bi RONDA DIAGNOSTIC BILAT Radiology Routine Diffuse cystic mastopathy of left breast 1 Occurrences starting 08/09/2022 until 09/08/2023 [facility] Work Phone: Comment on above: 1 Occurrences starting 08/09/2022 until 09/08/2023 HIGH RISK HUMAN PAPILLOMA VIRUS (HPV), PCR FOR DETECTION AND GENOTYPING HIGH RISK HUMAN PAPILLOMA VIRUS (HPV), PCR FOR DETECTION AND GENOTYPING Lab Routine Vaginal discharge Cervical cancer screening 04/28/2024 11:01 AM EDT [facility] End: 03-09-2023 RONDA SCREENING W CHRIS RONDA SCREENING W CHRIS Radiology Routine Encounter for screening mammogram for breast cancer 1 Occurrences starting 02/07/2022 until 03/09/2023 [facility] Work Phone: Comment on above: 1 Occurrences starting 02/07/2022 until 03/09/2023 Microscopic observat ion [Identifier] in Vaginal fluid by Gram stain BACT/TIFFANY VAG GRAM STAIN Microbiology Routine Vaginal itching Vaginal discharge Ordered: 04/14/2022 [facility] Work Phone: Comment on above: Ordered: 04/14/2022 End: 06-19-2025 MR Liver WO and W contrast IV MRI LIVER (EOVIST) WO/W IVCON Radiology Routine Hepatic lesion 1 Occurrences starting 05/20/2024 until 06/19/2025 [facility] Work Phone: Comment on above: 1 Occurrences starting 05/20/2024 until 06/19/2025 End: 03-03-2023 Mri abdomen w/o & w/contrast material MRI LIVER WO/W IVCON Radiology Routine Liver nodule 1 Occurrences starting 02/01/2022 until 03/03/2023 [facility] Work Phone: Comment on above: 1 Occurrences starting 02/01/2022 until 03/03/2023 Mri abdomen w/o & w/contrast material MRI LIVER WO/W IVCON Radiology Routine Liver nodule 03/23/2022 11:42 AM EDT [facility] Work Phone: End: 04-26-2023 Mri abdomen w/o & w/contrast material MRI LIVER WO/W IVCON Radiology Routine Liver nodule 1 Occurrences starting 03/27/2022 until 04/26/2023 [facility] Work Phone: Comment on above: 1 Occurrences starting 03/27/2022 until 04/26/2023 End: 04-10-2024 Mri brain brain stem w/o contrast material MRI BRAIN WO IVCON Radiology Routine Headache, unspecified headache type Concussion without loss of consciousness, subsequent encounter 1 Occurrences starting 03/12/2023 until 04/10/2024 [facility] Work Phone: Comment on above: 1 Occurrences starting 03/12/2023 until 04/10/2024 PAP FLUID CERVICAL SCREENING PAP FLUID CERVICAL SCREENING Lab Routine Screening for cervical cancer Encounter for screening for human papillomavirus (HPV) Ordered: 02/07/2022 [facility] Work Phone: Comment on above: Ordered: 02/07/2022 PAP TEST PAP TEST Lab Rou dalila Vaginal discharge Cervical cancer screening 04/28/2024 11:01 AM EDT [facility] PT PLAN OF CARE CERTIFICATION PT PLAN OF CARE CERTIFICATION Procedures Routine Acute pain of right shoulder Ordered: 04/05/2022 [facility] Work Phone: Comment on above: Ordered: 04/05/2022 PT PLAN OF CARE CERTIFICATION PT PLAN OF CARE CERTIFICATION Procedures Routine Chronic midline low back pain without sciatica Chronic neck pain Lateral epicondylitis, right elbow Neck pain Ordered: 10/17/2022 [facility] Work Phone: Comment on above: Ordered: 10/17/2022 PT PLAN OF CARE CERTIFICATION PT PLAN OF CARE CERTIFICATION Procedures Routine Neck pain Chronic midline low back pain without sciatica Lateral epicondylitis, right elbow Ordered: 11/07/2022 [facility] Work Phone: Comment on above: Ordered: 11/07/2022 PT PLAN OF CARE CERTIFICATION PT PLAN OF CARE CERTIFICATION Procedures Routine Low back pain, unspecified back pain laterality, unspecified chronicity, unspecified whether sciatica present Neck pain Ordered: 03/20/2023 [facility] Comment on above: Ordered: 03/20/2023 PT PLAN OF CARE CERTIFICATION PT PLAN OF CARE CERTIFICATION Procedures Routine Low back pain, unspecified back pain laterality, unspecified chronicity, unspecified whether sciatica present Ordered: 05/23/2023 [facility] Comment on above: Ordered: 05/23/2023 End: 04-10-2024 [facility] spine lumbosacral 2/3 views XR LUMBAR GENERAL 3V AP/LAT/L5-S1 Radiology Routine Lumbar pain 1 Occurrences starting 03/12/2023 until 04/10/2024 [facility] Work Phone: Comment on above: 1 Occurrences starting 03/12/2023 until 04/10/2024 End: 11-25-2023 Radiologic exam chest 2 views XR CHEST 2V FRONTAL/LAT Radiology Routine Bacterial pneumonia 1 Occurrences starting 10/26/2022 until 11/25/2023 [facility] Work Phone: Comment on above: 1 Occurrences starting 10/26/2022 until 11/25/2023 End: 11-29-2023 Radiologic exam chest 2 views XR CHEST 2V FRONTAL/LAT Radiology Routine Bacterial pneumonia 1 Occurrences starting 10/30/2022 until 11/29/2023 [facility] Work Phone: Comment on above: 1 Occurrences starting 10/30/2022 until 11/29/2023 End: 12-06-2023 Radiologic exam chest 2 views XR CHEST 2V FRONTAL/LAT Radiology Routine Pneumonia of right lower lobe due to infectious organism 1 Occurrences starting 11/06/2022 until 12/06/2023 [facility] Work Phone: Comment on above: 1 Occurrences starting 11/06/2022 until 12/06/2023 End: 04-18-2024 Radiologic examination pelvis 1/2 views XR PELVIS 2V INLET/OUTLET Radiology Routine Pelvic pain in female 1 Occurrences starting 03/20/2023 until 04/18/2024 [facility] Work Phone: Comment on above: 1 Occurrences starting 03/20/2023 until 04/18/2024 Radiologic examinati on pelvis 1/2 views XR PELVIS 2V INLET/OUTLET Radiology Routine Pelvic pain in female 03/20/2023 12:53 PM EDT [facility] Work Phone: SARS-CoV-2 (COVID-19 ) RNA [Presence] in Respiratory specimen by DANA with probe detection 2019 CORONAVIRUS Microbiology Routine Sore throat 01/24/2023 10:36 AM EDT [facility] Work Phone: SURGICAL PATHOLOGY [facility] Work Phone: Comment on above: Release Upon Ordering for 1 Occurrences starting 04/25/2022, 1 completed SURGICAL PATHOLOGY SURGICAL PATH OLOGY Lab Routine Skin lesion 05/30/2022 5:03 PM EDT [facility] Work Phone: SURGICAL PATHOLOGY SURGICAL PATH OLOGY Lab Routine Hymenal remnant 01/02/2023 9:49 AM T [facility] Work Phone: SURGICAL PATHOLOGY SURGICAL PATH OLOGY Lab Routine Skin lesion 07/23/2024 4:[address] [facility] Work Phone: UA DIP B/O UA DIP B/O Lab R outine Vaginal itching Encounter for screening examination for sexually transmitted disease Ordered: 03/05/2024 [facility] Work Phone: Comment on above: Ordered: 03/05/2024 UA DIP, URINE (POC) UA DIP, URIN E (POC) Lab Routine Urinary frequency Ordered: 05/09/2022 [facility] Work Phone: Comment on above: Ordered: 05/09/2022 UROGENITAL UREAPLASM A AND MYCOPLASMA SPECIES BY PCR, FOR GENITAL, RECTAL, URINE SAMPLES UROGENITAL UREAPLASMA AND MYCOPLASMA SPECIES BY PCR, FOR GENITAL, RECTAL, URINE SAMPLES Lab Routine Vaginal odor Vaginal itching Urinary frequency 12/17/2023 2:[address] [facility] Work Phone: UROGENITAL UREAPLASM A AND MYCOPLASMA SPECIES BY PCR, FOR GENITAL, RECTAL, URINE SAMPLES UROGENITAL UREAPLASMA AND MYCOPLASMA SPECIES BY PCR, FOR GENITAL, RECTAL, URINE SAMPLES Lab Routine Screening examination for STD (sexually transmitted disease) 04/28/2024 11:03 AM [facility] UROGENITAL UREAPLASM A AND MYCOPLASMA SPECIES BY PCR, FOR GENITAL, RECTAL, URINE SAMPLES UROGENITAL UREAPLASMA AND MYCOPLASMA SPECIES BY PCR, FOR GENITAL, RECTAL, URINE SAMPLES Lab Routine Screening examination for STD (sexually transmitted disease) 05/21/2024 3:12 PM [facility] End: 02-26-2023 Us abdominal real time w/image limited US ABD RT UPPER QUADRANT Radiology Routine Elevated liver enzymes 1 Occurrences starting 01/27/2022 until 02/26/2023 [facility] Work Phone: Comment on above: 1 Occurrences starting 01/27/2022 until 02/26/2023 Us abdominal real ti me w/image limited US ABD RT UPPER QUADRANT Radiology Routine Elevated liver enzymes 01/30/2022 2:11 PM EDT [facility] Work Phone: End: 09-08-2023 Us breast uni real time with image limited US BREAST LTD LT Radiology Routine Diffuse cystic mastopathy of left breast 1 Occurrences starting 08/09/2022 until 09/08/2023 [facility] Work Phone: Comment on above: 1 Occurrences starting 08/09/2022 until 09/08/2023 End: 08-09-2023 US LEG VEIN DVT UNL VAS LAB US LEG VEIN DVT UNL VAS LAB Vascular Lab Routine Chronic pain of right knee 1 Occurrences starting 08/09/2022 until 08/09/2023 [facility] Work Phone: Comment on above: 1 Occurrences starting 08/09/2022 until 08/09/2023 End: 03-09-2023 Us transvaginal US FEMALE PELVIS TRANSVAG Radiology Routine Pelvic pain in female 1 Occurrences starting 02/07/2022 until 03/09/2023 [facility] Work Phone: Comment on above: 1 Occurrences starting 02/07/2022 until 03/09/2023 End: 09-08-2023 Us transvaginal US FEMALE PELVIS TRANSVAG Radiology Routine Diffuse cystic mastopathy of left breast 1 Occurrences starting 08/09/2022 until 09/08/2023 [facility] Work Phone: Comment on above: 1 Occurrences starting 08/09/2022 until 09/08/2023 End: 09-08-2023 XR KNEE GENERAL 4V AP BOTH/PA BOTH/LAT/MERC RIGHT XR KNEE GENERAL 4V AP BOTH/PA BOTH/LAT/MERC RIGHT Radiology Routine Chronic pain of right knee 1 Occurrences starting 08/09/2022 until 09/08/2023 [facility] Work Phone: Comment on above: 1 Occurrences starting 08/09/2022 until 09/08/2023 [facility] Immunizations Immunization Date Immunization Notes Care Provider Koki castellano 07-26-2018 influenza virus vacc ine, unspecified formulation Jennifer Whitfield APRN.CNP Work Phone: [facility] Payers Date Payer Category Payer Medicaid [id number] 2013 Medicaid [employer] [id number] 2013-Present [phone] [address] [place] [address] Medicaid [id number] 2013 Medicaid [id number] Medicaid [id number] Unknown Social History Date Type Detail Facility Start: 05-07-2022 [facility] Start: 11-04-2020 End: 10-19-2021 Alcohol intake Current non-drinker of alcohol (finding) [facility] Start: 08-03-2020 End: 01-24-2022 History SDOH Alcohol Std Drinks 98 [facility] Start: 08-03-2020 End: 09-14-2022 History SDOH Alcohol Binge 1 [facility] Start: 04-20-2020 End: 09-14-2022 History SDOH Social Connections Phone 3 [facility] Start: 04-20-2020 End: 09-14-2022 History SDOH Social Connections Get Together 2 [facility] Start: 04-20-2020 End: 09-14-2022 History SDOH Social Connections Living 5 [facility] Start: 04-20-2020 End: 09-14-2022 History SDOH Stress 4 [facility] Start: 04-20-2020 Education 14 [facility] Start: 1975 Sex Assigned At Not on file [facility] Start: 10-05-2020 End: 08-11-2022 Exposure to SARS-CoV-2 (event) Not sure [facility] Start: 05-07-2022 Tobacco use and exposure Smoke less tobacco non-user [facility] Work Phone: Start: 09-14-2022 End: 02-08-[address] [facility] Start: 09-14-2022 End: 02-08-2023 Social connection and isolation panel [facility] Attends [employer] Not on file [facility] Do you belong to any clubs or organizations such as restorationism groups, unions, fraternal or athletic groups, or school groups? No [facility] Are you now , , , , never or living with a partner? [facility] How often to you hav e a drink containing alcohol? Monthly or less [facility] How many standard dr inks containing alcohol do you have on a typical day? 3 or 4 [facility] How often do you hav e 6 or more drinks on 1 occasion? Never [facility] Do you feel stress - tense, restless, nervous, or anxious, or unable to sleep at night because your mind is troubled all the time - these days [OSQ] Rather much [facility] (I/We) worried wheth er (my/our) food would run out before (I/we) got money to buy more. Never true [facility] Do you feel stress - tense, restless, nervous, or anxious, or unable to sleep at night because your mind is troubled all the time - these days [OSQ] To some extent [facility] (I/We) worried wheth er (my/our) food would run out before (I/we) got money to buy more. DK or Refused [facility] Start: 04-28-2024 End: 07-23-2024 Alcohol intake Ex-drinker (finding) [facility] How hard is it for y ou to pay for the very basics like food,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 access, insert saline lock prior to the beginning of sedation, infusion, injection of imaging exam. Discontinue saline lock post exam. If Pt. has a central line or IVAD, may access for administration according to line specific nursing protocol. Once exam is complete flush line and de-access according to line specific nursing protocol in the MR contrast administration guidelines link. colestipol (COLESTID) 1 gram tablet Start with 1 tablet PO QHS. Increase to 2 tabs QHS as directed. Reduce dose if constipation occurs. hyoscyamine sublingual (LEVSIN/SL) 0.125 mg Dissolve 1 tablet under the tongue every 4 hours as needed (abdominal pain). metoprolol tartrate, short acting, (LOPRESSOR) 50 mg tablet Take 1 tablet by mouth two times a day. ondansetron orally disintegrating (ZOFRAN ODT) 4 mg disintegrating tablet Take 1 tablet by mouth every 6 hours as needed for nausea/vomiting. Lactobacillus acidophilus (FLORAJEN ACIDOPHILUS) 20 billion cell capsule Take 1 capsule by mouth once daily. Omeprazole Magnesium (PRILOSEC OTC) 20 mg tablet Take 1 tablet by mouth once daily. albuterol HFA (PROVENTIL HFA, VENTOLIN HFA) 90 mcg/actuation inhaler Inhale 2 Puffs as instructed every 6 hours as needed for wheezing/shortness of breath. simvastatin (ZOCOR) 10 mg tablet Take 1 tablet by mouth once daily. lisinopril (ZESTRIL) 20 mg tablet Take 1 tablet by mouth two times a day. fluticasone (FLONASE) 50 mcg/actuation nasal spray Use 2 Sprays in each nostril once daily. Rinse mouth after use. cyclobenzaprine (FLEXERIL) 10 mg tablet Take 1 tablet by mouth three times a day as needed for muscle spasm. levonorgestrel (MIRENA) 20 mcg/24 hours (5 yrs) 52 mg IUD 1 Each by INTRAUTERINE route as directed. Cholecalciferol, Vitamin D3, 1,000 unit cap Take 1 capsule by mouth once daily. No current facility-administered medications for this visit. Allergies As of Date: 05/21/2024 Allergen Noted Reaction HOUSE DUST 08/12/2020 Cough MAPLE FLAVOR 08/12/2020 Swelling SEASONAL ALLERGIES 04/09/2019 Shortness of Breath Fully Assessed 05/20/2024 REVIEW OF SYSTEMS Bladder: No dysuria, gross hematuria, urinary urgency, or incontinence. + frequency and pelvic pressure Expanded ROS: MANAGER ARCHITECTURAL: + vagina itching Allergies and current medication updated:Yes EXAM: BP 114/80 Pulse 82 Resp 14 Wt 169 lb (76.7kg) SpO2 97% LMP 03/20/2024 GENERAL: pleasant, female in no apparent distress HEENT: Normocephalic, atraumatic, mucus membranes moist, and no lesions CHEST: Normal inspiratory effort PELVIC: external genitalia normal, normal Bartholin's glands, urethra, [place]'s glands, no vulvar lesions, no cervical lesions, good vaginal support, + brown discharge, normal appearing perineal body and perianal region, IUD strings not visualized BIMANUAL: uterus normal size, shape and consistency, no adnexal masses, and non-tender NEURO: alert and oriented x3,exam grossly non-focal EXTREMITIES: normal ASSESSMENT AND PLAN: 1. Screening examination for STD (sexually transmitted disease) - ICD9: V74.5, ICD10: Z11.3 (primary diagnosis) - Full panel ordered - Negative for HIV 05/12, repeat labs next week - Will consult with ID about concern for exposure to HIV 2. Pelvic pressure in female - ICD9: 625.8, ICD10: R10.2 - URINE CULTURE 3. Urinary frequency - ICD9: 788.41, ICD10: R35.0 - Urine culture ordered Will treat accordingly and communicate ID recommendations to Amy. Aniya Ramírez APRN.CNP Medical Decision Making: Problems: Low: Acute, uncomplicated illness or injury Data: Unique test(s) ordered: 3+ Risk: Minimal: Minimal risk from testing/treatment Medical Decision Making Level: 3 - Low documented in this encounter [facility] 05-20-2024 Telephone encounter Note I would if I could. There is no medical reason for me to site that insurance would cover blood type. [facility] 05-20-2024 Miscellaneous Notes I would if I could. There is no medical reason for me to site that insurance would cover blood type. See pt message and advise. Unable to locate any Type & Screen labs in [employer]. Yessenia Vickers MA documented in this encounter [facility] 05-20-2024 Note HNO ID: [id number] Author: CLARK ZALDIVAR APRN.CNP Service: ? Author Type: Nurse Practitioner Type: Progress Notes Filed: 05/20/2024 14:20 Note Text: DEPARTMENT OF GASTROENTEROLOGY - FOLLOW UP REASON FOR VISIT Indigo Meier is a 48 year old female who is scheduled for follow up of IBS. HISTORY OF PRESENT ILLNESS Indigo Meier is a 48 year old female who presents today for follow up of IBS. Pertinent Workup to Date: LS 08/2022 Dr. Nava- ALIDA vs hepatic adenoma and transient LFTs elevation. KUB 12/2023 constipation MRI liver 03/2022: IMPRESSION: UNIFORMLY ENHANCING NODULES IN THE RIGHT DOME OF THE LIVER AND INFERIOR LEFT LOBE OF THE LIVER WHICH ARE ISOINTENSE TO LIVER PARENCHYMA ON T2-WEIGHTED IMAGES. THESE MAY REPRESENT FOCAL NODULAR HYPERPLASIA OR HEPATIC ADENOMAS. A FOLLOW-UP LIVER MRI WITH EOVIST IS RECOMMENDED IN 3-6 MONTHS TO ASSESS STABILITY. 01/15/24: LFTs WNL EGD/colon 03/2022: - Normal examined jejunum. - Normal examined duodenum. - Gastritis. Biopsied. - Mildly severe reflux esophagitis. Biopsied. - Hemorrhoids found on perianal exam. - The examined portion of the ileum was normal. - One 6 mm polyp in the rectum, removed with a cold snare. Resected and retrieved. Clip (MR conditional) was placed. - The examination was otherwise normal on direct and retroflexion views. FINAL DIAGNOSIS A. Stomach, antrum, biopsy: - Gastric antral mucosa with no diagnostic abnormalities. B. Esophagus, distal, biopsy: - Reactive squamous and gastric cardiac-type mucosa, negative for intestinal metaplasia. C. Rectum, polyp, polypectomy: - Inflammatory-type polyp. Symptoms: 4-6 bms in the AM with lots of diarrhea. Lots of bloating. A little better after bms. Soft formed bms. Rarely loose. Very rarely misses days without bms. No bleeding. S/p hemorrhoidectomy. Some lower abdominal cramping, bloating. Nausea, no vomiting. No heartburn on 20mg omeprazole. Lots of heartburn if she doesn't take it. S/p guanako for stones 2009. Diarrhea is postprandial. Wt is stable. No NSAIDs. 12/2021: tTG WNL PAST MEDICAL HISTORY No date: Anxiety Comment: generalized anxiety AND panic disorder (diagnosed by PCP) No date: Chronic back pain Comment: mild scolosis and sciatica AND SI joint locks up; was seeing pain management, now sees PCP No date: GERD (gastroesophageal reflux disease) No date: Hemorrhoids 2011: Hyperlipidemia No date: Hypertension No date: Marijuana use No date: Vertigo PAST SURGICAL HISTORY No date: ABDOMINAL SURGERY HX 07/2020: BREAST REDUCTION No date: BREAST SURGERY HX 2009: CHOLECYSTECTOMY Comment: Cholecystectomy 04/25/2022: COLONOSCOPY Comment: repeat in 10 years 04/25/2022: EGD W/O BRSH SPEC VARICIES INJ 04/26/2022: HEMORROIDECTOMY INTERNAL No date: INSERTION OF IUD No date: LIG/TRNSXJ FLP TUBE ABDL/VAG APPR UNI/BI Comment: Tubal ligation No date: SHX COSMETIC SURGERY Allergies: House Dust Cough Maple Flavor Swelling Seasonal Allergies Shortness of Breath Current Outpatient Medications Medication Sig Dispense Refill metoprolol tartrate, short acting, (LOPRESSOR) 50 mg tablet Take 1 tablet by mouth two times a day. 180 tablet 3 ondansetron orally disintegrating (ZOFRAN ODT) 4 mg disintegrating tablet Take 1 tablet by mouth every 6 hours as needed for nausea/vomiting. 10 tablet 1 Lactobacillus acidophilus (FLORAJEN ACIDOPHILUS) 20 billion cell capsule Take 1 capsule by mouth once daily. 30 capsule 11 Omeprazole Magnesium (PRILOSEC OTC) 20 mg tablet Take 1 tablet by mouth once daily. 30 tablet 5 albuterol HFA (PROVENTIL HFA, VENTOLIN HFA) 90 mcg/actuation inhaler Inhale 2 Puffs as instructed every 6 hours as needed for wheezing/shortness of breath. 6.7 g 5 simvastatin (ZOCOR) 10 mg tablet Take 1 tablet by mouth once daily. 30 tablet 11 lisinopril (ZESTRIL) 20 mg tablet Take 1 tablet by mouth two times a day. 60 tablet 5 fluticasone (FLONASE) 50 mcg/actuation nasal spray Use 2 Sprays in each nostril once daily. Rinse mouth after use. 1 Each 5 cyclobenzaprine (FLEXERIL) 10 mg tablet Take 1 tablet by mouth three times a day as needed for muscle spasm. 15 tablet 0 levonorgestrel (MIRENA) 20 mcg/24 hours (5 yrs) 52 mg IUD 1 Each by INTRAUTERINE route as directed. 1 Each 0 Cholecalciferol, Vitamin D3, 1,000 unit cap Take 1 capsule by mouth once daily. 0 No current facility-administered medications for this visit. Social History Tobacco Use Smoking status: Never Smokeless tobacco: Never Vaping Use Vaping status: Never Used Substance Use Topics Alcohol use: Not Currently Drug use: Yes Frequency: 7.0 times per week Types: Marijuana Comment: yolanda FAMILY HISTORY Problem Relation Age of Onset Hypertension Mother Hyperlipidemia Mother None Father other (Other) Father MVA - heart attack Cancer Sister 41 cervical, ?lymph Diabetes Sister Diabetes Brother Hyperlipidemia Brother Hear (more content not included)... [facility] 05-20-2024 History of Presen t illness Narrative DEPARTMENT OF GASTROENTEROLOGY - FOLLOW UP REASON FOR VISIT Indigo Meier is a 48 year old female who is scheduled for follow up of IBS. HISTORY OF PRESENT ILLNESS Indigo Meier is a 48 year old female who presents today for follow up of IBS. Pertinent Workup to Date: LS 08/2022 Dr. Nava- ALIDA vs hepatic adenoma and transient LFTs elevation. KUB 12/2023 constipation MRI liver 03/2022: IMPRESSION: UNIFORMLY ENHANCING NODULES IN THE RIGHT DOME OF THE LIVER AND INFERIOR LEFT LOBE OF THE LIVER WHICH ARE ISOINTENSE TO LIVER PARENCHYMA ON T2-WEIGHTED IMAGES. THESE MAY REPRESENT FOCAL NODULAR HYPERPLASIA OR HEPATIC ADENOMAS. A FOLLOW-UP LIVER MRI WITH EOVIST IS RECOMMENDED IN 3-6 MONTHS TO ASSESS STABILITY. 01/15/24: LFTs WNL EGD/colon 03/2022: - Normal examined jejunum. - Normal examined duodenum. - Gastritis. Biopsied. - Mildly severe reflux esophagitis. Biopsied. - Hemorrhoids found on perianal exam. - The examined portion of the ileum was normal. - One 6 mm polyp in the rectum, removed with a cold snare. Resected and retrieved. Clip (MR conditional) was placed. - The examination was otherwise normal on direct and retroflexion views. FINAL DIAGNOSIS A. Stomach, antrum, biopsy: - Gastric antral mucosa with no diagnostic abnormalities. B. Esophagus, distal, biopsy: - Reactive squamous and gastric cardiac-type mucosa, negative for intestinal metaplasia. C. Rectum, polyp, polypectomy: - Inflammatory-type polyp. Symptoms: 4-6 bms in the AM with lots of diarrhea. Lots of bloating. A little better after bms. Soft formed bms. Rarely loose. Very rarely misses days without bms. No bleeding. S/p hemorrhoidectomy. Some lower abdominal cramping, bloating. Nausea, no vomiting. No heartburn on 20mg omeprazole. Lots of heartburn if she doesn't take it. S/p guanako for stones 2009. Diarrhea is postprandial. Wt is stable. No NSAIDs. 12/2021: tTG WNL PAST MEDICAL HISTORY No date: Anxiety Comment: generalized anxiety & panic disorder (diagnosed by PCP) No date: Chronic back pain Comment: mild scolosis and sciatica & SI joint locks up; was seeing pain management, now sees PCP No date: GERD (gastroesophageal reflux disease) No date: Hemorrhoids 2012: Hyperlipidemia No date: Hypertension No date: Marijuana use No date: Vertigo PAST SURGICAL HISTORY No date: ABDOMINAL SURGERY HX 07/2020: BREAST REDUCTION No date: BREAST SURGERY HX 2009: CHOLECYSTECTOMY Comment: Cholecystectomy 04/25/2022: COLONOSCOPY Comment: repeat in 10 years 04/25/2022: EGD W/O BRSH SPEC VARICIES INJ 04/26/2022: HEMORROIDECTOMY INTERNAL No date: INSERTION OF IUD No date: LIG/TRNSXJ FLP TUBE ABDL/VAG APPR UNI/BI Comment: Tubal ligation No date: SHX COSMETIC SURGERY Allergies: House Dust Cough Maple Flavor Swelling Seasonal Allergies Shortness of Breath Current Outpatient Medications Medication Sig Dispense Refill metoprolol tartrate, short acting, (LOPRESSOR) 50 mg tablet Take 1 tablet by mouth two times a day. 180 tablet 3 ondansetron orally disintegrating (ZOFRAN ODT) 4 mg disintegrating tablet Take 1 tablet by mouth every 6 hours as needed for nausea/vomiting. 10 tablet 1 Lactobacillus acidophilus (FLORAJEN ACIDOPHILUS) 20 billion cell capsule Take 1 capsule by mouth once daily. 30 capsule 11 Omeprazole Magnesium (PRILOSEC OTC) 20 mg tablet Take 1 tablet by mouth once daily. 30 tablet 5 albuterol HFA (PROVENTIL HFA, VENTOLIN HFA) 90 mcg/actuation inhaler Inhale 2 Puffs as instructed every 6 hours as needed for wheezing/shortness of breath. 6.7 g 5 simvastatin (ZOCOR) 10 mg tablet Take 1 tablet by mouth once daily. 30 tablet 11 lisinopril (ZESTRIL) 20 mg tablet Take 1 tablet by mouth two times a day. 60 tablet 5 fluticasone (FLONASE) 50 mcg/actuation nasal spray Use 2 Sprays in each nostril once daily. Rinse mouth after use. 1 Each 5 cyclobenzaprine (FLEXERIL) 10 mg tablet Take 1 tablet by mouth three times a day as needed for muscle spasm. 15 tablet 0 levonorgestrel (MIRENA) 20 mcg/24 hours (5 yrs) 52 mg IUD 1 Each by INTRAUTERINE route as directed. 1 Each 0 Cholecalciferol, Vitamin D3, 1,000 unit cap Take 1 capsule by mouth once daily. 0 No current facility-administered medications for this visit. Social History Tobacco Use Smoking status: Never Smokeless tobacco: Never Vaping Use Vaping status: Never Used Substance Use Topics Alcohol use: Not Currently Drug use: Yes Frequency: 7.0 times per week Types: Marijuana Comment: yolanda FAMILY HISTORY Problem Relation Age of Onset Hypertension Mother Hyperlipidemia Mother None Father other (Other) Father MVA - heart attack Cancer Sister 41 cervical, ?lymph Diabetes Sister Diabetes Brother Hyperlipidemia Brother Heart Brother Heart Brother CAD-quadruple bypass, age 46 Heart Brother CAD stent placement Asthma Son Allergies Son Allergies Son Colon Cancer No Family History REVIEW OF SYSTEMS Cardiovascular: No chest pain Respiratory: Negative for cough, wheezing and shortness of breath Gastrointestinal : See above Psychiatric: No problems PHYSICAL EXAMINATION BP 126/77 (BP Site: Left Arm) Pulse 62 Ht 160 cm (5' 3 ) Wt 76.5 kg (168 lb 10.4 oz) LMP 03/20/2024 (Exact Date) BMI 29.88 kg/m General Appearance: Well appearing, alert, in no acute distress, gait steady. Eyes: Pupils equal, no scleral icterus Lungs: breath sounds clear to auscultation bilaterally Heart: regular rate and rhythm, no murmurs Abdomen: not distended, normal bowel sounds, soft and depressible, no guarding or rebound, non TTP Neuro: alert, oriented x 3, pleasant and in no acute distress Psych: pleasant affect, calm Assessment IMPRESSION Ms. Meier is a 48 year old female who presents for follow up. 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 She will arrange the follow up MRI. She presents today with suspected IBS. Colon/EGD unremarkable in 2021. She has daily postprandial diarrhea with frequency, urgency. S/p guanako with stones in 2009. She also notes cramping, bloating, and nausea. No GERD symptoms on 20mg omeprazole. Suspect bile acid diarrhea vs IBS-D. Will try colestipol, Levsin. Consider Xifaxan if no better. PLAN Trial of low dose colestipol Levsin prn MRI liver Consider Xifaxan if symptoms persist Continue 20mg omeprazole daily Clark Zaldivar APRN.RIZWAN 05/20/2024 1:52 PM documented in this encounter [facility] 05-20-2024 Telephone encounter Note See pt message and advise. Unable to locate any Type & Screen labs in [employer]. Yessenia Vickers MA [facility] 05-06-2024 Telephone encounter Note Patient read mobile mumhart message, but hasn't responded with her preference. Monique Rosa RN [facility] 05-06-2024 Miscellaneous Notes Patient read mobile mumhart message, but hasn't responded with her preference. Monique Rosa RN Left message for patient to call office. Monique Rosa RN Please let patient know prior auth may delay obtaining medication. Can purchase over the counter or wait for prior auth Aniya Ramírez APRN.NEWSPAPER OR PERIODICAL EDITOR Received a prior authorization for patient for the probiotic that you prescribed on 04/28/2024. Would you like me to complete the prior authorization? Or just have patient get a probiotic over the counter? Brianne Garcia MA documented in this encounter [facility] 05-01-2024 Telephone encounter Note Left message for patient to call office. Monique Rosa RN [facility] 05-01-2024 Telephone encounter Note Please let patient know prior auth may delay obtaining medication. Can purchase over the counter or wait for prior auth Aniya Ramírez APRN.NEWSPAPER OR PERIODICAL EDITOR [facility] 05-01-2024 Telephone encounter Note Received a prior authorization for patient for the probiotic that you prescribed on 04/28/2024. Would you like me to complete the prior authorization? Or just have patient get a probiotic over the counter? Brianne Garcia MA [facility] 04-30-2024 Telephone encounter Note Prescription Refill Information The patient has been identified by name and date of : Yes Caregiver verified no other encounters exist for this prescription request: Yes Caregiver confirmed with patient/requestor that no other refills are due, in the near future, with this provider at this time: Yes The last office visit in the department: 03/13/24 Does the patient have a future office visit with this provider/department: No Requested Prescriptions Pending Prescriptions Disp Refills Omeprazole Magnesium (PRILOSEC OTC) 20 mg tablet 30 tablet 5 Sig: Take 1 tablet by mouth once daily. Ruben Randolph LPN April 30, 2024 10:23 AM [facility] 04-30-2024 Miscellaneous Notes Prescription Refill Information The patient has been identified by name and date of : Yes Caregiver verified no other encounters exist for this prescription request: Yes Caregiver confirmed with patient/requestor that no other refills are due, in the near future, with this provider at this time: Yes The last office visit in the department: 03/13/24 Does the patient have a future office visit with this provider/department: No Requested Prescriptions Pending Prescriptions Disp Refills Omeprazole Magnesium (PRILOSEC OTC) 20 mg tablet 30 tablet 5 Sig: Take 1 tablet by mouth once daily. Ruben Randolph LPN April 30, 2024 10:23 AM documented in this encounter [facility] 04-30-2024 Telephone encounter Note Prescription Refill Information The patient has been identified by name and date of : Yes Caregiver verified no other encounters exist for this prescription request: Yes Caregiver confirmed with patient/requestor that no other refills are due, in the near future, with this provider at this time: Yes The last office visit in the department: 03/13/24 Does the patient have a future office visit with this provider/department: No Requested Prescriptions Pending Prescriptions Disp Refills metoprolol tartrate, short acting, (LOPRESSOR) 50 mg tablet 180 tablet 3 Sig: Take 1 tablet by mouth two times a day. ondansetron orally disintegrating (ZOFRAN ODT) 4 mg disintegrating tablet 10 tablet 1 Sig: Take 1 tablet by mouth every 6 hours as needed for nausea/vomiting. Ruben Randolph LPN April 30, 2024 10:22 AM [facility] 04-30-2024 Miscellaneous Notes Prescription Refill Information The patient has been identified by name and date of : Yes Caregiver verified no other encounters exist for this prescription request: Yes Caregiver confirmed with patient/requestor that no other refills are due, in the near future, with this provider at this time: Yes The last office visit in the department: 03/13/24 Does the patient have a future office visit with this provider/department: No Requested Prescriptions Pending Prescriptions Disp Refills metoprolol tartrate, short acting, (LOPRESSOR) 50 mg tablet 180 tablet 3 Sig: Take 1 tablet by mouth two times a day. ondansetron orally disintegrating (ZOFRAN ODT) 4 mg disintegrating tablet 10 tablet 1 Sig: Take 1 tablet by mouth every 6 hours as needed for nausea/vomiting. Ruben Randolph LPN April 30, 2024 10:22 AM documented in this encounter [facility] 04-30-2024 Telephone encounter Note Last problem visit 04/28/24. Requested Prescriptions Pending Prescriptions Disp Refills Lactobacillus acidophilus (FLORAJEN ACIDOPHILUS) 20 billion cell capsule 30 capsule 11 Sig: Take 1 capsule by mouth once daily. Luci Frey RN [facility] 04-30-2024 Miscellaneous Notes Last problem visit 04/28/24. Requested Prescriptions Pending Prescriptions Disp Refills Lactobacillus acidophilus (FLORAJEN ACIDOPHILUS) 20 billion cell capsule 30 capsule 11 Sig: Take 1 capsule by mouth once daily. Luci Frey RN documented in this encounter [facility] 04-28-2024 Note Addended by: ANIYA RAMÍREZ on: 04/28/2024 11:02 AM Modules accepted: Orders [facility] 04-28-2024 Miscellaneous Notes Addended by: ANIYA RAMÍREZ on: 04/28/2024 11:02 AM Modules accepted: Orders documented in this encounter [facility] 04-28-2024 Note HNO ID: [id number] Author: ANIYA RAMÍREZ APRN.CNP Service: ? Author Type: Nurse Practitioner Type: Progress Notes Filed: 04/28/2024 11:02 Note Text: [employer] [place] Applier offered: Patient declines. Indigo Meier is a 48 year old female who presents for problem visit for STD screening. HPI: Indigo has concerns about partner's faithfulness and would like screened for STDs. The only symptom she is experiencing is vaginal discharge. OB History T0 L3 SAB0 IAB0 Ectopic0 Multiple0 Live Births0 Genetic Supervisor History LMP: 05/17/2023 (Exact Date), IUD Age at Menarche: Age at First : Age at Menopause: Genetic Supervisor History Comments: Sexual Activity: Yes; Male Contraception: Tubal Ligation, I.U.D. PAST MEDICAL HISTORY Diagnosis Date Anxiety generalized anxiety AND panic disorder (diagnosed by PCP) Chronic back [...] Drug use: Yes Types: Marijuana Comment: yolanda Current Outpatient Medications Medication Sig albuterol HFA (PROVENTIL HFA, VENTOLIN HFA) 90 mcg/actuation inhaler Inhale 2 Puffs as instructed every 6 hours as needed for wheezing/shortness of breath. simvastatin (ZOCOR) 10 mg tablet Take 1 tablet by mouth once daily. lisinopril (ZESTRIL) 20 mg tablet Take 1 tablet by mouth two times a day. ondansetron orally disintegrating (ZOFRAN ODT) 4 mg disintegrating tablet Take 1 tablet by mouth every 6 hours as needed for nausea/vomiting. Omeprazole Magnesium (PRILOSEC OTC) 20 mg tablet Take 1 tablet by mouth once daily. fluticasone (FLONASE) 50 mcg/actuation nasal spray Use 2 Sprays in each nostril once daily. Rinse mouth after use. cyclobenzaprine (FLEXERIL) 10 mg tablet Take 1 tablet by mouth three times a day as needed for muscle spasm. metoprolol tartrate, short acting, (LOPRESSOR) 50 mg tablet Take 1 tablet by mouth twice daily. Lactobacillus acidophilus (FLORAJEN ACIDOPHILUS) 20 billion cell cap Take 1 capsule by mouth once daily. levonorgestrel (MIRENA) 20 mcg/24 hours (5 yrs) 52 mg IUD 1 Each by INTRAUTERINE route as directed. Cholecalciferol, Vitamin D3, 1,000 unit cap Take 1 capsule by mouth once daily. No current facility-administered medications for this visit. 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: Positive for vaginal discharge Allergies and current medication updated:Yes EXAM: BP 124/84 Pulse 72 Resp 16 Wt 172 lb (78.0kg) SpO2 97% LMP 03/20/2024 GENERAL: pleasant, female in no apparent distress HEENT: Normocephalic, atraumatic, mucus membranes moist, and no lesions CHEST: Normal inspiratory effort PELVIC: external genitalia normal, normal Bartholin's glands, urethra, [place]'s glands, no vulvar lesions, no cervical lesions, good vaginal support, physiologic discharge present, normal appearing perineal body and perianal region, IUD strings not visualized BIMANUAL: uterus normal size, shape and consistency, no adnexal masses, and non-tender NEURO: alert and oriented x3,exam grossly non-focal EXTREMITIES: normal ASSESSMENT AND PLAN: 1. Screening examination for STD (sexually transmitted disease) - ICD9: V74.5, ICD10: Z11.3 (primary diagnosis) - Labs and cultures ordered - Will treat accordingly Aniya Ramírez APRN.RIZWAN Medical Decision Making: Problems: Minimal: Self-limited or minor problem Data: Unique test(s) ordered: 3+ Risk: Minimal: Minimal risk from testing/treatment Medical Decision Making Level: 2 - Straightforward [facility] 04-28-2024 History of Presen t illness Narrative [place] Applier offered: Patient declines. Indigo Meier is a 48 year old female who presents for problem visit for STD screening. HPI: Indigo has concerns about partner's faithfulness and would like screened for STDs. The only symptom she is experiencing is vaginal discharge. OB History T0 L3 SAB0 IAB0 Ectopic0 Multiple0 Live Births0 Genetic Supervisor History LMP: 05/17/2023 (Exact Date), IUD Age at Menarche: Age at First : Age at Menopause: Genetic Supervisor History Comments: Sexual Activity: Yes; Male Contraception: [...] Drug use: Yes Types: Marijuana Comment: yolanda Current Outpatient Medications Medication Sig albuterol HFA (PROVENTIL HFA, VENTOLIN HFA) 90 mcg/actuation inhaler Inhale 2 Puffs as instructed every 6 hours as needed for wheezing/shortness of breath. simvastatin (ZOCOR) 10 mg tablet Take 1 tablet by mouth once daily. lisinopril (ZESTRIL) 20 mg tablet Take 1 tablet by mouth two times a day. ondansetron orally disintegrating (ZOFRAN ODT) 4 mg disintegrating tablet Take 1 tablet by mouth every 6 hours as needed for nausea/vomiting. Omeprazole Magnesium (PRILOSEC OTC) 20 mg tablet Take 1 tablet by mouth once daily. fluticasone (FLONASE) 50 mcg/actuation nasal spray Use 2 Sprays in each nostril once daily. Rinse mouth after use. cyclobenzaprine (FLEXERIL) 10 mg tablet Take 1 tablet by mouth three times a day as needed for muscle spasm. metoprolol tartrate, short acting, (LOPRESSOR) 50 mg tablet Take 1 tablet by mouth twice daily. Lactobacillus acidophilus (FLORAJEN ACIDOPHILUS) 20 billion cell cap Take 1 capsule by mouth once daily. levonorgestrel (MIRENA) 20 mcg/24 hours (5 yrs) 52 mg IUD 1 Each by INTRAUTERINE route as directed. Cholecalciferol, Vitamin D3, 1,000 unit cap Take 1 capsule by mouth once daily. No current facility-administered medications for this visit. 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: Positive for vaginal discharge Allergies and current medication updated:Yes EXAM: BP 124/84 Pulse 72 Resp 16 Wt 172 lb (78.0kg) SpO2 97% LMP 03/20/2024 GENERAL: pleasant, female in no apparent distress HEENT: Normocephalic, atraumatic, mucus membranes moist, and no lesions CHEST: Normal inspiratory effort PELVIC: external genitalia normal, normal Bartholin's glands, urethra, [place]'s glands, no vulvar lesions, no cervical lesions, good vaginal support, physiologic discharge present, normal appearing perineal body and perianal region, IUD strings not visualized BIMANUAL: uterus normal size, shape and consistency, no adnexal masses, and non-tender NEURO: alert and oriented x3,exam grossly non-focal EXTREMITIES: normal ASSESSMENT AND PLAN: 1. Screening examination for STD (sexually transmitted disease) - ICD9: V74.5, ICD10: Z11.3 (primary diagnosis) - Labs and cultures ordered - Will treat accordingly Aniya Ramírez APRN.CNP Medical Decision Making: Problems: Minimal: Self-limited or minor problem Data: Unique test(s) ordered: 3+ Risk: Minimal: Minimal risk from testing/treatment Medical Decision Making Level: 2 - Straightforward documented in this encounter [facility] 03-28-2024 Telephone encounter Note The following approved medication requests have been transmitted electronically. Requested Prescriptions Pending Prescriptions Disp Refills albuterol HFA (PROVENTIL HFA, VENTOLIN HFA) 90 mcg/actuation inhaler 6.7 g 5 Sig: Inhale 2 Puffs as instructed every 6 hours as needed for wheezing/shortness of breath. simvastatin (ZOCOR) 10 mg tablet 30 tablet 11 Sig: Take 1 tablet by mouth once daily. Mignon Orozco APRN.CNS [facility] 03-28-2024 Miscellaneous Notes The following approved medication requests have been transmitted electronically. Requested Prescriptions Pending Prescriptions Disp Refills albuterol HFA (PROVENTIL HFA, VENTOLIN HFA) 90 mcg/actuation inhaler 6.7 g 5 Sig: Inhale 2 Puffs as instructed every 6 hours as needed for wheezing/shortness of breath. simvastatin (ZOCOR) 10 mg tablet 30 tablet 11 Sig: Take 1 tablet by mouth once daily. Mignon Orozco APRN.CNS Prescription Refill Information The patient has been identified by name and date of : Yes Caregiver verified no other encounters exist for this prescription request: Yes Caregiver confirmed with patient/requestor that no other refills are due, in the near future, with this provider at this time: Yes The last office visit in the department: 03/13/24 Does the patient have a future office visit with this provider/department: Yes Requested Prescriptions Pending Prescriptions Disp Refills albuterol HFA (PROVENTIL HFA, VENTOLIN HFA) 90 mcg/actuation inhaler 6.7 g 5 Sig: Inhale 2 Puffs as instructed every 6 hours as needed for wheezing/shortness of breath. simvastatin (ZOCOR) 10 mg tablet 30 tablet 11 Sig: Take 1 tablet by mouth once daily. Dianne Bhandari LPN March 28, 2024 10:00 AM documented in this encounter [facility] 03-28-2024 Telephone encounter Note Prescription Refill Information The patient has been identified by name and date of : Yes Caregiver verified no other encounters exist for this prescription request: Yes Caregiver confirmed with patient/requestor that no other refills are due, in the near future, with this provider at this time: Yes The last office visit in the department: 03/13/24 Does the patient have a future office visit with this provider/department: Yes Requested Prescriptions Pending Prescriptions Disp Refills albuterol HFA (PROVENTIL HFA, VENTOLIN HFA) 90 mcg/actuation inhaler 6.7 g 5 Sig: Inhale 2 Puffs as instructed every 6 hours as needed for wheezing/shortness of breath. simvastatin (ZOCOR) 10 mg tablet 30 tablet 11 Sig: Take 1 tablet by mouth once daily. Dianne Bhandari LPN March 28, 2024 10:00 AM [facility] 03-18-2024 Telephone encounter Note Form faxed to number on form and message left for pt. Fernanda Jameson MA March 18, 2024 4:22 PM [facility] 03-18-2024 Miscellaneous Notes Form faxed to number on form and message left for pt. Fernanda Jameson MA March 18, 2024 4:22 PM Patient dropped off community action form for air conditioner for asthma. Please review and after completion requested to fax to [place] office and let patient know by phone. Placed on pcp desk Ayanna Pradhan MA documented in this encounter [facility] 03-18-2024 Telephone encounter Note Patient dropped off community action form for air conditioner for asthma. Please review and after completion requested to fax to [place] office and let patient know by phone. Placed on pcp desk Ayanna Pradhan MA [facility] 03-13-2024 Instructions Mignon Orozco APRN.CNS - 03/13/2024 11:11 AM EDT 1) Start lisinopril 20mg 2 x day once 30mg tablets are used up 2) Continue lopressor 50mg 2 x day 3) Letter for blood pressure 4) Follow up in a month documented in this encounter [facility] 03-13-2024 Note HNO ID: [id number] Author: MIGNON OROZCO APRN.CNS Service: ? Author Type: Clinical Nurse Specialist Type: Progress Notes Filed: 03/13/2024 11:11 Note Text: This is a 48 year old female who presents today with: Patient presents with: Hypertension: Follow up HISTORY OF PRESENT ILLNESS: Indigo Meier is a 48 year old female. Patient presents with: Hypertension: Follow up HTN: Patient is compliant with meds No Monitors bp at home: Yes. Denies side effects: No. Chest pain: No. Dyspnea: No. Edema: No. Palpitations: No. Syncope: No. Headache: No. Dizziness: No. Needs a letter stating we are managing and adjusting medications. PAST MEDICAL HISTORY: PAST MEDICAL HISTORY Diagnosis Date Anxiety generalized anxiety AND panic disorder (diagnosed by PCP) Chronic back [...] COSMETIC SURGERY ALLERGIES House Dust, Maple Flavor, and Seasonal Allergies MEDICATIONS Current Outpatient Medications Medication Sig ibuprofen (MOTRIN) 800 mg tablet Take 1 tablet by mouth every 8 hours as needed (FOR PAIN. TAKE WITH FOOD). lisinopril (ZESTRIL) 30 mg tablet Take 1 tablet by mouth once daily. ondansetron orally disintegrating (ZOFRAN ODT) 4 mg disintegrating tablet Take 1 tablet by mouth every 6 hours as needed for nausea/vomiting. Omeprazole Magnesium (PRILOSEC OTC) 20 mg tablet Take 1 tablet by mouth once daily. fluticasone (FLONASE) 50 mcg/actuation nasal spray Use 2 Sprays in each nostril once daily. Rinse mouth after use. albuterol HFA (PROVENTIL HFA, VENTOLIN HFA) 90 [...] Drug use: Yes Types: Marijuana Comment: yolanda EXAM: BP 140/84 Pulse 71 Resp 16 Wt 76.2 kg (168 lb) LMP 05/17/2023 (Exact Date) SpO2 97% BMI 30.33 kg/m? PHYSICAL EXAM: Physical Exam Vitals reviewed. Constitutional: Appearance: Normal appearance. Cardiovascular: Rate and Rhythm: Normal rate and regular rhythm. Pulses: Normal pulses. Heart sounds: Normal heart sounds. Pulmonary: Effort: Pulmonary effort is normal. Breath sounds: Normal breath sounds. Neurological: Mental Status: She is alert. LABS: ASSESSMENT/PLAN: 1. Essential hypertension - ICD9: 401.9, ICD10: I10 - Uncontrolled - Recommend home blood pressure monitoring, to bring results to next visit - Encouraged sodium restriction, DASH or Mediterranean diet - Recommend regular aerobic exercise - LISINOPRIL 20 MG TABLET day - Continue metoprolol 2 x day Discussed treatment plan and patient voices understanding. Patient's questions answered appropriately. Medications and potential side effects were discussed and patient voices understanding. Return to the office as scheduled or as needed for worsening/no improvement. Mignon Orozco APRN.[facility] 03-13-2024 History of Presen t illness Narrative This is a 48 year old female who presents today with: Patient presents with: Hypertension: Follow up HISTORY OF PRESENT ILLNESS: Indigo Meier is a 48 year old female. Patient presents with: Hypertension: Follow up HTN: Patient is compliant with meds No Monitors bp at home: Yes. Denies side effects: No. Chest pain: No. Dyspnea: No. Edema: No. Palpitations: No. Syncope: No. Headache: No. Dizziness: No. Needs a letter stating we are managing and adjusting medications. PAST MEDICAL HISTORY: PAST MEDICAL HISTORY Diagnosis [...] COSMETIC SURGERY ALLERGIES House Dust, Maple Flavor, and Seasonal Allergies MEDICATIONS Current Outpatient Medications Medication Sig ibuprofen (MOTRIN) 800 mg tablet Take 1 tablet by mouth every 8 hours as needed (FOR PAIN. TAKE WITH FOOD). lisinopril (ZESTRIL) 30 mg tablet Take 1 tablet by mouth once daily. ondansetron orally disintegrating (ZOFRAN ODT) 4 mg disintegrating tablet Take 1 tablet by mouth every 6 hours as needed for nausea/vomiting. Omeprazole Magnesium (PRILOSEC OTC) 20 mg tablet Take 1 tablet by mouth once daily. fluticasone (FLONASE) 50 mcg/actuation nasal spray Use 2 Sprays in each nostril once daily. Rinse mouth after use. albuterol HFA (PROVENTIL HFA, VENTOLIN HFA) 90 [...] Drug use: Yes Types: Marijuana Comment: yolanda EXAM: BP 140/84 Pulse 71 Resp 16 Wt 76.2 kg (168 lb) LMP 05/17/2023 (Exact Date) SpO2 97% BMI 30.33 kg/m PHYSICAL EXAM: Physical Exam Vitals reviewed. Constitutional: Appearance: Normal appearance. Cardiovascular: Rate and Rhythm: Normal rate and regular rhythm. Pulses: Normal pulses. Heart sounds: Normal heart sounds. Pulmonary: Effort: Pulmonary effort is normal. Breath sounds: Normal breath sounds. Neurological: Mental Status: She is alert. LABS: ASSESSMENT/PLAN: 1. Essential hypertension - ICD9: 401.9, ICD10: I10 - Uncontrolled - Recommend home blood pressure monitoring, to bring results to next visit - Encouraged sodium restriction, DASH or Mediterranean diet - Recommend regular aerobic exercise - LISINOPRIL 20 MG TABLET day - Continue metoprolol 2 x day Discussed treatment plan and patient voices understanding. Patient's questions answered appropriately. Medications and potential side effects were discussed and patient voices understanding. Return to the office as scheduled or as needed for worsening/no improvement. Mignon Orozco APRN.DIRECTOR TARGETED MARKETING documented in this encounter [facility] 03-06-2024 Telephone encounter Note Pt returned the call and notified of results. Pt states she feels she only had GI upset with the metronidazole because she drank alcohol when she took it and it was a long time ago. States she has had it since then and had no issues at all. Requests removal from intolerance/allergy list. [facility] 03-06-2024 Miscellaneous Notes Pt returned the call and notified of results. Pt states she feels she only had GI upset with the metronidazole because she drank alcohol when she took it and it was a long time ago. States she has had it since then and had no issues at all. Requests removal from intolerance/allergy list. Left message for pt to call back. Xochitl Duarte MA Please contact patient let her know she tested positive for bacterial vaginosis. This is not an STD, it is an overgrowth of vaginal bacteria. Per chart review, it states metronidazole causes GI upset, I have sent in [facility] vaginal treatment for her [facility]. gonorrhea, chlamydia, yeast, trichomonas testing were negative. documented in this encounter [facility] 03-06-2024 Telephone encounter Note Left message for pt to call back. Xochitl Duarte MA [facility] 03-06-2024 Telephone encounter Note Please contact patient let her know she tested positive for bacterial vaginosis. This is not an STD, it is an overgrowth of vaginal bacteria. Per chart review, it states metronidazole causes GI upset, I have sent in [facility] vaginal treatment for her [facility]. gonorrhea, chlamydia, yeast, trichomonas testing were negative. [facility] 03-05-2024 Note HNO ID: [id number] Author: KARINA CHANDLER APRN.NEWSPAPER OR PERIODICAL EDITOR Service: ? Author Type: Nurse Practitioner Type: Progress Notes Filed: 03/05/2024 14:26 Note Text: This note was created using Browsterriter. Subjective Indigo Meier is a 48 year old female. Indigo Meier is a 48 year old female with a PMH of HTN, gonorrhea, yeast infection, presenting today with complaints of persistent vaginal itching and burning with urination for 2 weeks. She states that on 02/25 she tested positive for a yeast infection and gonorrhea to which she was given Diflucan and Rocephin. (After having sex with ex partner, and prior to testing on 02/25 she was notified of possible STI) She states that her associated symptoms have not resolved and are getting worse. She endorses itching, cramping, white vaginal discharge, nausea, urinary urgency. Denies fever, fatigue, chills, diaphoresis. Initially patient declined in engaging in recent sex after treatment, but later in discussions she endorses she did have sex with condom with Partner that tested positive for gonorrhea as well. States that she has tried ibuprofen for urinary pain to no relief. She has the Mirena IUD in place. Pertinent negatives: -rash -v/d -chest pain -shortness of breath -fever -fatigue -chills -diaphoresis Pertinent positives: +vaginal itching +cramping +vaginal discharge +nausea +urinary burning +urinary urgency The history is provided by the patient. Female Gu Problem This is a new problem. The current episode started 1 to 2 weeks ago. The problem has been gradually worsening. The pain is moderate. The symptoms are relieved by ibuprofen (mild relief). Nothing aggravates the symptoms. Associated symptoms include nausea, dysuria, urgency and vaginal discharge. Pertinent negatives include no chest pain, no anorexia, no chills, no fever, no abdominal pain, no constipation, no diarrhea, no vomiting, no frequency, no hematuria, no pelvic pain, no vaginal bleeding, no vaginal pain, no headaches, no sore throat, no back pain, no flank pain, no joint pain, no cough, no shortness of breath, no rash and no dyspareunia. There has been no history of trauma. Urine output has been normal. She is currently Sexually active. Contraceptives used include an IUD. She is not . She has had prior pregnancies. Her past medical history is significant for STD. Her past medical history does not include PID, ectopic , ovarian cysts, ovarian torsion, endometriosis, kidney stones, UTI, gallstones, terminated , gynecological surgery, miscarriage or appendectomy. There were sick contacts at home. Recently, medical care has been given at this facility. Services received include tests performed. PAST MEDICAL HISTORY Diagnosis Date Anxiety generalized anxiety AND panic disorder (diagnosed by PCP) Chronic back [...] Maple Flavor, Metronidazole, and Seasonal Allergies MEDICATIONS ibuprofen (MOTRIN) 800 mg tablet Take 1 tablet by mouth every 8 hours as needed (FOR PAIN. TAKE WITH FOOD). lisinopril (ZESTRIL) 30 mg tablet Take 1 tablet by mouth once daily. ondansetron orally disintegrating (ZOFRAN ODT) 4 mg disintegrating tablet Take 1 tablet by mouth every 6 hours as needed for nausea/vomiting. Omeprazole Magnesium (PRILOSEC OTC) 20 mg tablet Take 1 tablet by mouth once daily. fluticasone (FLONASE) 50 mcg/actuation nasal spray Use 2 Sprays in each nostril once daily. Rinse mouth after use. albuterol HFA (PROVENTIL HFA, VENTOLIN HFA) 90 [...] Mother Hyperlipidemia Mother None Father other (Other) (more content not included)... [facility] 03-05-2024 History of Presen t illness Narrative This note was created using Browsterriter. Subjective Indigo Meier is a 48 year old female. Indigo Meier is a 48 year old female with a PMH of HTN, gonorrhea, yeast infection, presenting today with complaints of persistent vaginal itching and burning with urination for 2 weeks. She states that on 02/25 she tested positive for a yeast infection and gonorrhea to which she was given Diflucan and Rocephin. (After having sex with ex partner, and prior to testing on 02/25 she was notified of possible STI) She states that her associated symptoms have not resolved and are getting worse. She endorses itching, cramping, white vaginal discharge, nausea, urinary urgency. Denies fever, fatigue, chills, diaphoresis. Initially patient declined in engaging in recent sex after treatment, but later in discussions she endorses she did have sex with condom with Partner that tested positive for gonorrhea as well. States that she has tried ibuprofen for urinary pain to no relief. She has the Mirena IUD in place. Pertinent negatives: -rash -v/d -chest pain -shortness of breath -fever -fatigue -chills -diaphoresis Pertinent positives: +vaginal itching +cramping +vaginal discharge +nausea +urinary burning +urinary urgency The history is provided by the patient. Female Gu Problem This is a new problem. The current episode started 1 to 2 weeks ago. The problem has been gradually worsening. The pain is moderate. The symptoms are relieved by ibuprofen (mild relief). Nothing aggravates the symptoms. Associated symptoms include nausea, dysuria, urgency and vaginal discharge. Pertinent negatives include no chest pain, no anorexia, no chills, no fever, no abdominal pain, no constipation, no diarrhea, no vomiting, no frequency, no hematuria, no pelvic pain, no vaginal bleeding, no vaginal pain, no headaches, no sore throat, no back pain, no flank pain, no joint pain, no cough, no shortness of breath, no rash and no dyspareunia. There has been no history of trauma. Urine output has been normal. She is currently Sexually active. Contraceptives used include an IUD. She is not . She has had prior pregnancies. Her past medical history is significant for STD. Her past medical history does not include PID, ectopic , ovarian cysts, ovarian torsion, endometriosis, kidney stones, UTI, gallstones, terminated , gynecological surgery, miscarriage or appendectomy. There were sick contacts at home. Recently, medical care has been given at this facility. Services received include tests performed. PAST MEDICAL HISTORY Diagnosis Date Anxiety generalized [...] Maple Flavor, Metronidazole, and Seasonal Allergies MEDICATIONS ibuprofen (MOTRIN) 800 mg tablet Take 1 tablet by mouth every 8 hours as needed (FOR PAIN. TAKE WITH FOOD). lisinopril (ZESTRIL) 30 mg tablet Take 1 tablet by mouth once daily. ondansetron orally disintegrating (ZOFRAN ODT) 4 mg disintegrating tablet Take 1 tablet by mouth every 6 hours as needed for nausea/vomiting. Omeprazole Magnesium (PRILOSEC OTC) 20 mg tablet Take 1 tablet by mouth once daily. fluticasone (FLONASE) 50 mcg/actuation nasal spray Use 2 Sprays in each nostril once daily. Rinse mouth after use. albuterol HFA (PROVENTIL HFA, VENTOLIN HFA) 90 [...] yolanda Review of Systems Constitutional: Negative for chills, diaphoresis, fatigue and fever. HENT: Negative for sore throat. Respiratory: Negative for cough, chest tightness, shortness of breath, wheezing and stridor. Cardiovascular: Negative for chest pain and palpitations. Gastrointestinal: Positive for nausea. Negative for abdominal pain, anorexia, constipation, diarrhea and vomiting. Genitourinary: Positive for dysuria, urgency and vaginal discharge. Negative for decreased urine volume, dyspareunia, flank pain, frequency, genital sores, hematuria, menstrual problem, pelvic pain, vaginal bleeding and vaginal pain. Musculoskeletal: Negative for back pain, joint pain and myalgias. Skin: Negative for rash. Neurological: Negative for headaches. Objective BP 148/98 Pulse 89 Temp 36.2 C (97.2 F) Resp 21 Wt 76.5 kg (168 lb 10.4 oz) LMP 05/17/2023 (Exact Date) SpO2 98% BMI 30.45 kg/m Physical Exam Vitals and nursing note reviewed. Exam conducted with a fan mail clerk present. Constitutional: General: She is not in acute distress. Appearance: Normal appearance. She is not toxic-appearing. HENT: Head: Normocephalic and atraumatic. Eyes: Conjunctiva/sclera: Conjunctivae normal. Cardiovascular: Rate and Rhythm: Normal rate and regular rhythm. Heart sounds: Normal heart sounds. No murmur heard. No friction rub. No gallop. Pulmonary: Effort: Pulmonary effort is normal. No respiratory distress. Breath sounds: Normal breath sounds. No stridor. No wheezing, rhonchi or rales. Chest: Chest wall: No tenderness. Abdominal: General: Bowel sounds are normal. There is no distension. Palpations: Abdomen is soft. There is no mass. Tenderness: There is abdominal tenderness in the right lower quadrant. There is no right CVA tenderness, left CVA tenderness, guarding or rebound. Negative signs include Reynaga's sign, Rovsing's sign and McBurney's sign. Hernia: No hernia is present. Comments: RLQ TTP. Genitourinary: General: Normal vulva. Exam position: Lithotomy position. Pubic Area: No rash or pubic lice. Labia: Right: No rash, tenderness, lesion or injury. Left: No rash, tenderness, lesion or injury. Urethra: No prolapse, urethral pain, urethral swelling or urethral lesion. Vagina: Vaginal discharge present. No erythema or tenderness. Cervix: Discharge present. No friability, erythema or cervical bleeding. Comments: Cervical and vaginal discharge present. No erythema or tenderness. No lesions. Skin: General: Skin is warm and dry. Neurological: Mental Status: She is alert. Psychiatric: Mood and Affect: Mood normal. Behavior: Behavior normal. Thought Content: Thought content normal. Judgment: Judgment normal. Assessment and Plan ASSESSMENT/PLAN: 1. Vaginal itching - ICD9: 698.1, ICD10: N89.8 (primary diagnosis) Itching and burning with urination for 2 weeks. Given Diflucan and Rocephin previously for yeast infection and gonorrhea. Endorses sexual intercourse while treating gonorrhea. - TIFFANY/TRICHOMONAS NAAT - GONORRHEA/CHLAMYDIA NAAT - BACTERIAL VAGINOSIS NAAT - UA DIP B/O negative - URINE CULTURE - CONSULT TO EMPLOYMENT INTERVIEWER 2. Encounter for screening examination for sexually transmitted disease - ICD9: V74.5, ICD10: Z11.3 Itching and burning with urination for 2 weeks. Given Diflucan and Rocephin previously for yeast infection and gonorrhea. Endorses sexual intercourse while treating gonorrhea. - TIFFANY/TRICHOMONAS NAAT - GONORRHEA/CHLAMYDIA NAAT - BACTERIAL VAGINOSIS NAAT - UA DIP B/O negative - URINE CULTURE - CONSULT TO EMPLOYMENT INTERVIEWER Elva Del Angel HAS BEEN ONGOING SINCE 02/25 SHE STATES SHE GOT BACK TOGETHER WITH EX, AND WAS NOTIFIED BY EX TO BE TESTED SHE TESTED POSITIVE FOR YEAST AND GONORRHEA TREATED WITH DIFLUCAN AND ROCEPHIN PATIENT DID NOT ABSTAIN FROM SEX FOR 2 WEEKS, HAVE PERFORMED VAGINAL EXAM CX OBTAINED WILL AWAIT RESULTS FOR FURTHER TREATMENT [facility] ROM MADE AT TIME OF DISCHARGE TEACHING PROVIDER (Physician/PA/GAME PROGRAMMER) NOTE OF PERSONAL INVOLVEMENT IN CARE: I have personally seen and examined the patient and performed the medical decision-making components. I have reviewed the Advanced Practice Registered Nurse (GAME PROGRAMMER) Student's documentation and verified the findings in the note as written. Any additions or changes are noted in bold/italics. Signature: Karina Chandler Date: 03/05/2024 Time: 2:26 PM documented in this encounter [facility] 02-27-2024 Nurse Note Rocephin given per provider order.Gabi Wells LPN [facility] 02-27-2024 Nurse Note Rocephin given per provider order.Gabi Wells LPN documented in this encounter [facility] 02-27-2024 Telephone encounter Note Patient notified of results and provider's instructions. Patient verbalizes understanding. Alessia Miguel RN [facility] 02-27-2024 Miscellaneous Notes Patient notified of results and provider's instructions. Patient verbalizes understanding. Alessia Miguel RN Left message for patient to return call. Jasmin Uribe MA Please call and let patient know she did test positive for gonorrhea as well as yeast. Medication for the yeast was sent in however she will need to come in for an injection of Rocephin to treat the gonorrhea. All partners need notified. Refrain from sexual intercourse for 2 weeks after treatment. documented in this encounter [facility] 02-27-2024 Telephone encounter Note Left message for patient to return call. Jasmin Uribe MA [facility] 02-27-2024 Telephone encounter Note Please call and let patient know she did test positive for gonorrhea as well as yeast. Medication for the yeast was sent in however she will need to come in for an injection of Rocephin to treat the gonorrhea. All partners need notified. Refrain from sexual intercourse for 2 weeks after treatment. [facility] 02-26-2024 Note HNO ID: [id number] Author: DWAIN HAWKINS APRN.NEWSPAPER OR PERIODICAL EDITOR Service: ? Author Type: Nurse Practitioner Type: Progress Notes Filed: 02/26/2024 12:16 Note Text: CC: Patient presents with: STD: Itching, discharge x today HPI Indigo Meier is a 48 year old female who presents with complaint of possible UTI. These symptoms have been present for 1 days. Associated symptoms: burning, abnormal vaginal discharge, and vaginal itching Denies: pressure, fever, chills, sweats, abdominal pain, and flank pain Treatments: nothing The ROS was otherwise negative. PMH, Medications, labs, allergies, and recent past visits with PCP were reviewed and updated as able. PHYSICAL EXAM: BP 195/119 Pulse 66 Temp 36.1 ?C (97 ?F) Resp 18 Wt 78.3 kg (172 lb 9.9 oz) LMP 05/17/2023 (Exact Date) SpO2 98% BMI 31.17 kg/m? General: Well appearing and alert CV: Regular rate and rhythm without obvious murmur Lungs: clear to auscultation bilaterally Back: straight and symmetric Abdomen: soft, nontender, nondistended PAST MEDICAL HISTORY Diagnosis Date Anxiety generalized anxiety AND panic disorder (diagnosed by PCP) Chronic back [...] Maple Flavor, Metronidazole, and Seasonal Allergies MEDICATIONS ibuprofen (MOTRIN) 800 mg tablet Take 1 tablet by mouth every 8 hours as needed (FOR PAIN. TAKE WITH FOOD). lisinopril (ZESTRIL) 30 mg tablet Take 1 tablet by mouth once daily. ondansetron orally disintegrating (ZOFRAN ODT) 4 mg disintegrating tablet Take 1 tablet by mouth every 6 hours as needed for nausea/vomiting. Omeprazole Magnesium (PRILOSEC OTC) 20 mg tablet Take 1 tablet by mouth once daily. fluticasone (FLONASE) 50 mcg/actuation nasal spray Use 2 Sprays in each nostril once daily. Rinse mouth after use. albuterol HFA (PROVENTIL HFA, VENTOLIN HFA) 90 [...] Drug use: Yes Types: Marijuana Comment: yolanda ASSESSMENT/PLAN: 1. Burning with urination - ICD9: 788.1, ICD10: R30.0 (primary diagnosis) - UA DIP, URINE (POC) 2. Vaginal itching - ICD9: 698.1, ICD10: N89.8 - BACTERIAL VAGINOSIS NAAT - GONORRHEA/CHLAMYDIA NAAT - TIFFANY/TRICHOMONAS NAAT Urine culture sent No treatment at this time. Self swabed. Potential red flag symptoms discussed with the patient. Reviewed appropriate action plan to take if red flag symptoms occur. Patient agreeable to treatment plan. Dwain Hawkins APRN.[facility] 02-26-2024 History of Presen t illness Narrative CC: Patient presents with: STD: Itching, discharge x today HPI Indigo Meier is a 48 year old female who presents with complaint of possible UTI. These symptoms have been present for 1 days. Associated symptoms: burning, abnormal vaginal discharge, and vaginal itching Denies: pressure, fever, chills, sweats, abdominal pain, and flank pain Treatments: nothing The ROS was otherwise negative. PMH, Medications, labs, allergies, and recent past visits with PCP were reviewed and updated as able. PHYSICAL EXAM: BP 195/119 Pulse 66 Temp 36.1 C (97 F) Resp 18 Wt 78.3 kg (172 lb 9.9 oz) LMP 05/17/2023 (Exact Date) SpO2 98% BMI 31.17 kg/m General: Well appearing and alert CV: Regular rate and rhythm without obvious murmur Lungs: clear to auscultation bilaterally Back: straight and symmetric Abdomen: soft, nontender, nondistended PAST MEDICAL HISTORY Diagnosis Date Anxiety generalized [...] Maple Flavor, Metronidazole, and Seasonal Allergies MEDICATIONS ibuprofen (MOTRIN) 800 mg tablet Take 1 tablet by mouth every 8 hours as needed (FOR PAIN. TAKE WITH FOOD). lisinopril (ZESTRIL) 30 mg tablet Take 1 tablet by mouth once daily. ondansetron orally disintegrating (ZOFRAN ODT) 4 mg disintegrating tablet Take 1 tablet by mouth every 6 hours as needed for nausea/vomiting. Omeprazole Magnesium (PRILOSEC OTC) 20 mg tablet Take 1 tablet by mouth once daily. fluticasone (FLONASE) 50 mcg/actuation nasal spray Use 2 Sprays in each nostril once daily. Rinse mouth after use. albuterol HFA (PROVENTIL HFA, VENTOLIN HFA) 90 [...] Drug use: Yes Types: Marijuana Comment: yolanda ASSESSMENT/PLAN: 1. Burning with urination - ICD9: 788.1, ICD10: R30.0 (primary diagnosis) - UA DIP, URINE (POC) 2. Vaginal itching - ICD9: 698.1, ICD10: N89.8 - BACTERIAL VAGINOSIS NAAT - GONORRHEA/CHLAMYDIA NAAT - TIFFANY/TRICHOMONAS NAAT Urine culture sent No treatment at this time. Self swabed. Potential red flag symptoms discussed with the patient. Reviewed appropriate action plan to take if red flag symptoms occur. Patient agreeable to treatment plan. Dwain Hawkins APRN.NEWSPAPER OR PERIODICAL EDITOR documented in this encounter [facility] 01-30-2024 History of Presen t illness Narrative Radiology Service Progress Note PATIENT NAME: Indigo Meier DATE OF SERVICE: January 30, 2024 TIME: 2:17 PM PATIENT IDENTITY VERIFICATION COMPLETED USING TWO (2) IDENTIFIERS: Name and Date of confirmed by patient verbally. FALL SCREENING: Has the patient had 2 falls in the last year or 1 fall with injury or currently using an Ambulatory Assistive Device (Walker, Cane, Wheelchair, Crutches, etc.)? No PATIENT GENDER DATA: Female. status: : No status: NO. PATIENT RELEVANT IMPLANT DATA REVIEWED: Yes PATIENT PRESENTS WITH AN IMPLANTABLE OR ATTACHED WELT CUTTER: No RADIOLOGY DEPARTMENT: General X-ray: Exam(s) Completed: Lower Extremity X-Ray(s): Knee, AP / Lat / Tunne / Merchant Right and Wt. Bearing PERIPHERAL IV DATA: Not applicable SIGNED BY: REJI Araujo) January 30, 2024 2:17 PM documented in this encounter [facility] 01-30-2024 Note HNO ID: [id number] Author: YESSICA TOURE RT(R) Service: Radiology Author Type: Technologist Type: Progress Notes Filed: 01/30/2024 14:27 Note Text: Radiology Service Progress Note PATIENT NAME: Indigo Meier DATE OF SERVICE: January 30, 2024 TIME: 2:17 PM PATIENT IDENTITY VERIFICATION COMPLETED USING TWO (2) IDENTIFIERS: Name and Date of confirmed by patient verbally. FALL SCREENING: Has the patient had 2 falls in the last year or 1 fall with injury or currently using an Ambulatory Assistive Device (Walker, Cane, Wheelchair, Crutches, etc.)? No PATIENT GENDER DATA: Female. status: : No status: NO. PATIENT RELEVANT IMPLANT DATA REVIEWED: Yes PATIENT PRESENTS WITH AN IMPLANTABLE OR ATTACHED WELT CUTTER: No RADIOLOGY DEPARTMENT: General X-ray: Exam(s) Completed: Lower Extremity X-Ray(s): Knee, AP / Lat / Tunne / Merchant Right and Wt. Bearing PERIPHERAL IV DATA: Not applicable SIGNED BY: Yessica Toure RT(R) January 30, 2024 2:17 PM [facility] 01-30-2024 Note HNO ID: [id number] Author: JOHN ZARAGOZA MD Service: ? Author Type: Physician Type: Progress Notes Filed: 01/30/2024 15:32 Note Text: Patient presents with: Trauma: Right knee and left calf pain x 1 day HPI: Right knee pain: Duration: walking yesterday and felt a pop in the right knee Location: media right knee Character: sharp and throbbing. Tightness in left calf, tingling in left thigh. Radiation: No. Aggravating: bending, standing, and walking; ice, wrap Relieving: heat Pain relievers: 800mg Motrin Associated: swelling, clicking, walking favoring left calf the last 1 1/2 weeks, chronic back pain Pertinent negatives: chest pain, shortness of breath, palpitations MEDICATIONS: ibuprofen (MOTRIN) 800 mg tablet Take 1 tablet by mouth every 8 hours as needed (FOR PAIN. TAKE WITH FOOD). lisinopril (ZESTRIL) 30 mg tablet Take 1 tablet by mouth once daily. ondansetron orally disintegrating (ZOFRAN ODT) 4 mg disintegrating tablet Take 1 tablet by mouth every 6 hours as needed for nausea/vomiting. Omeprazole Magnesium (PRILOSEC OTC) 20 mg tablet Take 1 tablet by mouth once daily. fluticasone (FLONASE) 50 mcg/actuation nasal spray Use 2 Sprays in each nostril once daily. Rinse mouth after use. albuterol HFA (PROVENTIL HFA, VENTOLIN HFA) 90 [...] Seasonal Allergies Shortness of Breath VITALS: BP 160/100 Pulse 67 Temp 36.7 ?C (98.1 ?F) Resp 20 Wt 77.6 kg (171 lb 1.2 oz) LMP 05/17/2023 (Exact Date) SpO2 100% BMI 30.89 kg/m? PHYSICAL EXAM: GEN: pleasant, no acute distress, alert HEENT: PERRL, EOMI, MMM NECK: supple, no lymphadenopathy, no thyromegaly HEART: regular rate, regular rhythm, no murmurs LUNGS: clear to auscultation, no wheezes or crackles, no increased WOB BACK: Normal curvature of spine. L>R lumbar tenderness. Straight leg test negative. EXT: no clubbing, no cyanosis, no edema KNEE: right compared to left. No effusion or deformity. Slight decrease in extension and flexion secondary to pain. Patellar crepitus. Medial joint line tenderness. Stable to varus strain, painflu valgus strain. Negative anterior drawer test. Negative posterior drawer test. Limping gait. Left lower leg: no heel, achilles, or calf tenderness. No pain with dorsi/plantar flexion against resistance. ASSESSMENT/PLAN: 1. Acute pain of right knee - ICD9: 719.46, ICD10: M25.561 - XR KNEE GENERAL 4V AP BOTH/PA BOTH/LAT/MERC RIGHT IMPRESSION: Small joint effusion in the right knee. Patient had to leave before xray was read. She was notified of result by telephone. Plan to follow up with orthopedics for medial knee/meniscus injury. Continue ibuprofen and rest. John Zaragoza MD [facility] 01-30-2024 History of Presen t illness Narrative Patient presents with: Trauma: Right knee and left calf pain x 1 day HPI: Right knee pain: Duration: walking yesterday and felt a pop in the right knee Location: media right knee Character: sharp and throbbing. Tightness in left calf, tingling in left thigh. Radiation: No. Aggravating: bending, standing, and walking; ice, wrap Relieving: heat Pain relievers: 800mg Motrin Associated: swelling, clicking, walking favoring left calf the last 1 1/2 weeks, chronic back pain Pertinent negatives: chest pain, shortness of breath, palpitations MEDICATIONS: ibuprofen (MOTRIN) 800 mg tablet Take 1 tablet by mouth every 8 hours as needed (FOR PAIN. TAKE WITH FOOD). lisinopril (ZESTRIL) 30 mg tablet Take 1 tablet by mouth once daily. ondansetron orally disintegrating (ZOFRAN ODT) 4 mg disintegrating tablet Take 1 tablet by mouth every 6 hours as needed for nausea/vomiting. Omeprazole Magnesium (PRILOSEC OTC) 20 mg tablet Take 1 tablet by mouth once daily. fluticasone (FLONASE) 50 mcg/actuation nasal spray Use 2 Sprays in each nostril once daily. Rinse mouth after use. albuterol HFA (PROVENTIL HFA, VENTOLIN HFA) 90 [...] Seasonal Allergies Shortness of Breath VITALS: BP 160/100 Pulse 67 Temp 36.7 C (98.1 F) Resp 20 Wt 77.6 kg (171 lb 1.2 oz) LMP 05/17/2023 (Exact Date) SpO2 100% BMI 30.89 kg/m PHYSICAL EXAM: GEN: pleasant, no acute distress, alert HEENT: PERRL, EOMI, MMM NECK: supple, no lymphadenopathy, no thyromegaly HEART: regular rate, regular rhythm, no murmurs LUNGS: clear to auscultation, no wheezes or crackles, no increased WOB BACK: Normal curvature of spine. L>R lumbar tenderness. Straight leg test negative. EXT: no clubbing, no cyanosis, no edema KNEE: right compared to left. No effusion or deformity. Slight decrease in extension and flexion secondary to pain. Patellar crepitus. Medial joint line tenderness. Stable to varus strain, painflu valgus strain. Negative anterior drawer test. Negative posterior drawer test. Limping gait. Left lower leg: no heel, achilles, or calf tenderness. No pain with dorsi/plantar flexion against resistance. ASSESSMENT/PLAN: 1. Acute pain of right knee - ICD9: 719.46, ICD10: M25.561 - XR KNEE GENERAL 4V AP BOTH/PA BOTH/LAT/MERC RIGHT IMPRESSION: Small joint effusion in the right knee. Patient had to leave before xray was read. She was notified of result by telephone. Plan to follow up with orthopedics for medial knee/meniscus injury. Continue ibuprofen and rest. John Zaragoza MD documented in this encounter [facility] 01-30-2024 Telephone encounter Note Patient calling back since Maikol Cook is not in the office today, she is going to go to [facility] to be seen. Patient said her right knee is very painful, difficult to walk down her stairs. [facility] 01-30-2024 Miscellaneous Notes Patient calling back since Maikol Cook is not in the office today, she is going to go to [facility] to be seen. Patient said her right knee is very painful, difficult to walk down her stairs. Patient calling, states that she is having right knee pain. Started yesterday but got worse during the night. Offered appointment today, patient states she cannot miss anymore work. Asking if a consult for ortho could be placed. Patient does have an appt on 02/04. Please advise. documented in this encounter [facility] 01-30-2024 Telephone encounter Note Patient calling, states that she is having right knee pain. Started yesterday but got worse during the night. Offered appointment today, patient states she cannot miss anymore work. Asking if a consult for ortho could be placed. Patient does have an appt on 02/04. Please advise. [facility] 01-17-2024 Miscellaneous Notes Indigo, your vitamin D level was therapeutic. No changes needed. documented in this encounter [facility] 01-07-2024 Miscellaneous Notes Rewrote order. D/c lisinopril 10mg tab and switched to 30mg tablets. [facility] Pharmacist is calling in regards to lisinopril 10 mg -take 3 tabs daily #30. Pharmacist is asking provider to verify rx. [facility] states that is a 10 day supply. Asking if provider wants to change rx. Florence Brantley LPN documented in this encounter [facility] 01-07-2024 Instructions Mignon rOozco APRN.CNS - 01/07/2024 9:16 AM EDT 1) Increase lisinopril to 30 mg daily 2) Check fasting labs in 1 week 3) Work slip printed for today 4) BP check in 1 month 5) Schedule mammogram 6) Follow up appt. In 12m documented in this encounter [facility] 01-07-2024 Note HNO ID: [id number] Author: MIGNON OROZCO APRN.CNS Service: ? Author Type: Clinical Nurse Specialist Type: Progress Notes Filed: 01/07/2024 09:17 Note Text: Chief Reason For Appointment Patient presents with: Wellness Also, BP has been high Indigo Meier is a 48 year old female who presents for annual exam. Last office visit date: 05/29/2023 Accompanied By self only Have you had any critical events, hospital stays, ER visits, surgeries or procedures since your last visit here in our office: No Specialists/Other Healthcare Providers Seen: Patient Care Team: Jaguar Cook PA-C as PCP - General (Family Medicine) Concerns today: BP has been running high Sinus trouble Headache HPI Was in ER for dizziness and headache. Had constipation. Active Problems ACTIVE PROBLEM LIST Low Back Pain - 03/20/2023 Prediabetes - 10/27/2022 Adenoma of Liver - 08/20/2022 Liver Nodule - 03/27/2022 Comment: 08/11/2022 consult hepatology Dee Dee Nava MD: Annual LFT to confirm continued normalization of LFT, no intervention indicated 03/23/2022 MRI Liver w/wo IVCon: 1.2 x 1 cm nodule in the inferior left lobe of the liver; 8 mm focus of arterial phase enhancement in the right dome of isointense to liver parenchyma on other sequences. Normal hepatic morphology: liver hyperplasia vs hepatic adenoma. Portal vein and branches, splenic vein, superior mesenteric vein and hepatic veins are patent. Biliary: No duct dilation or filling defect. Gallbladder is absent. Spleen, pancreas, kidneys WNL. 6 month f/u for stability Palpitations - 02/08/2022 Gerd (Gastroesophageal Reflux Disease) - 02/08/2022 Elevated Liver Enzymes - 02/08/2022 Internal Hemorrhoid - 02/08/2022 Other Chest Pain - 12/15/2021 Comment: 04/24/2022 stress echo without contrast W Dr. Mccauley: Juan Carlos protocol for total of 8 minutes and 11 seconds, MHR 1 4682% of maximum, MDQ 10.1. No ST or T wave changes to suggest ischemia, no clinical angina. Echo demonstrated ejection fraction of 55%, no regional wall motion abnormalities, positive for thickening of all mckay with reduction in ventricular cavity size with peak ejection fraction 65%. Negative for ischemia at a high workload. 12/12/2021 presented to emergency department [facility] with complaint of chest pain, gradual onset, continuous with both positive and sharp, squeezing pain left chest aggravated by movement of torso relieved by remaining still. Positive associated symptoms of lightheadedness. Negative for nausea, vomiting, diaphoresis, dyspnea, cough, fever, acid reflux and palpitations. Vital signs: 97.8 F-72-17-162/111--99% RA. Exam essentially within normal limits. CBC with differential WNL. CMP WNL except glucose 151. Chest x-ray no acute findings. 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 Needs PSG to determine if she has narcolepsy or if this is conversion disorder. 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 See 05/20 te. Pain in Joint, Lower Leg - 02/21/2012 Anxiety State - 07/25/2005 Other Acne - 07/25/2005 ROS: GENERAL: No weight loss, malaise or fevers/chills HEENT: Negative for frequent or significant headaches, No changes in hearing or vision. NECK: Negative for lumps, goiter, pain and significant neck swelling RESPIRATORY: Negative for cough, hemoptysis, wheezing, dyspnea or shortness of breath CARDIOVASCULAR: Negative for chest pain, leg swelling, orthopnea, or palpitations GI: No nausea, vomiting, or diarrhea/constipation. No hematochezia/melena. No heartburn or reflux symptoms. : No history of dysuria, frequency or incontinence MUSCULOSKELETAL: Negative for joint pain or swelling. Fibromyalgia- widespread SKIN: Negative for lesions, rash, and itching ENDOCRINE: Negative for cold or heat intolerance, polyuria, polydipsia and goiter NEURO: No history of headaches, syncope, paralysis, seizures or tremors MOOD: Negative for depression, anxiety, or suicidal ideation. Never smoked Works at [employer] No regular ETOH PAST MEDICAL HISTORY Diagnosis Date Anxiety generalized anxiety AND panic disorder (diagnosed by PCP) Chronic back pain mild scolosis and sciatica AND SI joint locks up; was seeing pain managem (more content not included)... [facility] 01-07-2024 History of Presen t illness Narrative Chief Reason For Appointment Patient presents with: Wellness Also, BP has been high Indigo Meier is a 48 year old female who presents for annual exam. Last office visit date: 05/29/2023 Accompanied By self only Have you had any critical events, hospital stays, ER visits, surgeries or procedures since your last visit here in our office: No Specialists/Other Healthcare Providers Seen: Patient Care Team: Jaguar Cook PA-C as PCP - General (Family Medicine) Concerns today: BP has been running high Sinus trouble Headache HPI Was in ER for dizziness and headache. Had constipation. Active Problems ACTIVE PROBLEM LIST Low Back Pain - 03/20/2023 Prediabetes - 10/27/2022 Adenoma of Liver - 08/20/2022 Liver Nodule - 03/27/2022 Comment: 08/11/2022 consult hepatology Dee Dee Nava MD: Annual LFT to confirm continued normalization of LFT, no intervention indicated 03/23/2022 MRI Liver w/wo IVCon: 1.2 x 1 cm nodule in the inferior left lobe of the liver; 8 mm focus of arterial phase enhancement in the right dome of isointense to liver parenchyma on other sequences. Normal hepatic morphology: liver hyperplasia vs hepatic adenoma. Portal vein and branches, splenic vein, superior mesenteric vein and hepatic veins are patent. Biliary: No duct dilation or filling defect. Gallbladder is absent. Spleen, pancreas, kidneys WNL. 6 month f/u for stability Palpitations - 02/08/2022 Gerd (Gastroesophageal Reflux Disease) - 02/08/2022 Elevated Liver Enzymes - 02/08/2022 Internal Hemorrhoid - 02/08/2022 Other Chest Pain - 12/15/2021 Comment: 04/24/2022 stress echo without contrast W Dr. Mccauley: Juan Carlos protocol for total of 8 minutes and 11 seconds, MHR 1 4682% of maximum, MDQ 10.1. No ST or T wave changes to suggest ischemia, no clinical angina. Echo demonstrated ejection fraction of 55%, no regional wall motion abnormalities, positive for thickening of all mckay with reduction in ventricular cavity size with peak ejection fraction 65%. Negative for ischemia at a high workload. 12/12/2021 presented to emergency department [facility] with complaint of chest pain, gradual onset, continuous with both positive and sharp, squeezing pain left chest aggravated by movement of torso relieved by remaining still. Positive associated symptoms of lightheadedness. Negative for nausea, vomiting, diaphoresis, dyspnea, cough, fever, acid reflux and palpitations. Vital signs: 97.8 F-72-17-162/111--99% RA. Exam essentially within normal limits. CBC with differential WNL. CMP WNL except glucose 151. Chest x-ray no acute findings. 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 Needs PSG to determine if she has narcolepsy or if this is conversion disorder. 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 See 05/20 te. Pain in Joint, Lower Leg - 02/21/2012 Anxiety State - 07/25/2005 Other Acne - 07/25/2005 ROS: GENERAL: No weight loss, malaise or fevers/chills HEENT: Negative for frequent or significant headaches, No changes in hearing or vision. NECK: Negative for lumps, goiter, pain and significant neck swelling RESPIRATORY: Negative for cough, hemoptysis, wheezing, dyspnea or shortness of breath CARDIOVASCULAR: Negative for chest pain, leg swelling, orthopnea, or palpitations GI: No nausea, vomiting, or diarrhea/constipation. No hematochezia/melena. No heartburn or reflux symptoms. : No history of dysuria, frequency or incontinence MUSCULOSKELETAL: Negative for joint pain or swelling. Fibromyalgia- widespread SKIN: Negative for lesions, rash, and itching ENDOCRINE: Negative for cold or heat intolerance, polyuria, polydipsia and goiter NEURO: No history of headaches, syncope, paralysis, seizures or tremors MOOD: Negative for depression, anxiety, or suicidal ideation. Never smoked Works at [employer] No regular ETOH PAST MEDICAL HISTORY Diagnosis Date Anxiety generalized [...] APPR UNI/BI Tubal ligation SHX COSMETIC SURGERY Medication List Current Outpatient Medications Medication Sig Dispense Refill lisinopril (ZESTRIL) 10 mg tablet Take 1 tablet by mouth once daily. 30 tablet 0 ondansetron orally disintegrating (ZOFRAN ODT) 4 mg disintegrating tablet Take 1 tablet by mouth every 6 hours as needed for nausea/vomiting. 10 tablet 1 Omeprazole Magnesium (PRILOSEC OTC) 20 mg tablet Take 1 tablet by mouth once daily. 30 tablet 5 fluticasone (FLONASE) 50 mcg/actuation nasal spray Use 2 Sprays in each nostril once daily. Rinse mouth after use. 1 Each 5 albuterol HFA (PROVENTIL HFA, VENTOLIN HFA) 90 mcg/actuation inhaler Inhale 2 Puffs as instructed every 6 hours as needed for wheezing/shortness of breath. 6.7 g 5 cyclobenzaprine (FLEXERIL) 10 mg tablet Take 1 tablet by mouth three times a day as needed for muscle spasm. 15 tablet 0 metoprolol tartrate, short acting, (LOPRESSOR) 50 mg tablet Take 1 tablet by mouth twice daily. 180 tablet 3 simvastatin (ZOCOR) 10 mg tablet Take 1 tablet by mouth once daily. 30 tablet 11 Lactobacillus acidophilus (FLORAJEN ACIDOPHILUS) 20 billion cell cap Take 1 capsule by mouth once daily. 30 capsule 11 levonorgestrel (MIRENA) 20 mcg/24 hours (5 yrs) 52 mg IUD 1 Each by INTRAUTERINE route as directed. 1 Each 0 Cholecalciferol, Vitamin D3, 1,000 unit cap Take 1 capsule by mouth once daily. 0 polyethylene glycol 3350 (MIRALAX) 17 gram/dose powder 17 g (~1 heaping tablespoon) dissolved in 120 to 240 mL (4 to 8 ounces) of beverage, once daily. 116 g 0 No current facility-administered medications for this visit. Weight Summary: Weight Change: Body mass index is 31.09 kg/m . Last Wt 01/07/24 : 78.1 kg (172 lb 3.2 oz) 01/04/24 : 75.8 kg (167 lb) 12/17/23 : 75.8 kg (167 lb) 12/07/23 : 76 kg (167 lb 8.8 oz) 11/28/23 : 77.1 kg (170 lb) Physical Exam: General Appearance: well appearing, alert and oriented. Skin: no suspicious lesion, no rash, no open sores, multiple tattoos Head: normocephalic, no obvious masses, lesions, tenderness or abnormalities. Eyes: Anicteric sclera. Pupils are equally round and reactive to light. Extraocular movements are intact. No nystagmus. Fundi benign. Ears: external ears normal, canals clear, TM's normal. Hearing to conversational voice intact. Nose/Sinuses: nares normal, septum midline, mucosa normal, no drainage or sinus tenderness. Oropharynx: lips, mucosa, and tongue normal, oropharynx normal. Neck: trachea midline, thyroid without mass or nodularity, thyroid moves normally with swallow, no regional lymphadenopathy. Carotids normal upstroke, no bruit or thrill. Lungs: Chest rise & fall symmetrical, Lungs clear to auscultation. No wheezing or rhonchi. No rales. Abdomen: normal bowel sounds, no mass, non-tender Heart: S1S2, no gallop, no rub, no murmur Lymph Nodes: no lymphadenopathy. Ext: no clubbing, cyanosis or edema. Mood: bright affect, speech clear, answers questions appropriately SCREENINGS Health Maintenance Listing BP Controlled (<130/80) Hepatitis B Vaccine(1 of 3 - 19+ 3-dose series) Behavioral Health Screening Mammogram Screening TEST RESULTS: Lab Studies: Date of lab studies: today - glucose - potassium - Creatinine, gfr - LFTs Lipid: WBC, H&H, Platelets: A1C: Vitamin D: Other: A/P: ASSESSMENT/PLAN: 1. Encounter for screening mammogram for malignant neoplasm of breast - ICD9: V76.12, ICD10: Z12.31 (primary diagnosis) - Encouraged monthly BSE - Follow up for annual exam in one year. - RONDA SCREENING W CHRIS 2. Essential hypertension - ICD9: 401.9, ICD10: I10 - Uncontrolled - Recommend home blood pressure monitoring, to bring results to next visit - Encouraged sodium restriction, DASH or Mediterranean diet - Recommend regular aerobic exercise - CBC + DIFF - MAGNESIUM BLD - TSH BLD - LISINOPRIL 10 MG TABLET INCREASED TO #)MG DAILY - Recheck BP in 1 month - Labs in 1 week 3. Hyperlipidemia with target LDL less than 130 - ICD9: 272.4, ICD10: E78.5 - Control undetermined, due for labs - Counseled on healthy diet and regular exercise 4. Prediabetes - ICD9: 790.29, ICD10: R73.03 Check labs in 1 week - COMP METABOLIC PANEL - HGB A1C - TSH BLD 5. Gastroesophageal reflux disease without esophagitis - ICD9: 530.81, ICD10: K21.9 - Stable - CBC + DIFF 6. Fibromyalgia - ICD9: 729.1, ICD10: M79.7 Ongoing - IBUPROFEN 800 MG TABLET - BEHAVIORAL HEALTH SCREENING - MAGNESIUM BLD - VITAMIN B12 BLOOD - VITAMIN D 25 HYDROXY 7. Headache, unspecified headache type - ICD9: 784.0, ICD10: R51.9 HTN - MAGNESIUM BLD - VITAMIN B12 BLOOD 8. Screening for hyperlipidemia - ICD9: V77.91, ICD10: Z13.220 Check labs in 1 week - LIPID PANEL BASIC Mignon Orozco APRN.DIRECTOR [employer] Follow Up Plans: BP check in 1 month Labs in 1 week Discussed treatment plan and patient voices understanding. Patient's questions answered appropriately. Medications and potential side effects were discussed and patient voices understanding. Return to the office as scheduled or as needed for worsening/no improvement. documented in this encounter [facility] 01-04-2024 Note HNO ID: [id number] Author: JESSICA HUTCHISON APRN.NEWSPAPER OR PERIODICAL EDITOR Service: ? Author Type: Nurse Practitioner Type: Progress Notes Filed: 01/04/2024 14:02 Note Text: Subjective Dizziness The patient's pertinent negatives include no focal weakness or weakness. Associated symptoms include dizziness and headaches. Pertinent negatives include no chest pain, fever, nausea, shortness of breath or vomiting. Indigo Meier is a 48 year old female who presents with dizziness of sudden onset at work today. She had bent over to get something out of a filing cabinet and when she sat up felt dizzy. She has had vertigo in the past and figured it was d/t that but it did not get better after resting. She also noticed her hands were shaking and she was seeing some spots in her vision. Review of Systems Constitutional: Negative for chills and fever. Respiratory: Negative for shortness of breath. Cardiovascular: Negative for chest pain. Gastrointestinal: Negative for nausea and vomiting. Neurological: Positive for dizziness and headaches. Negative for sensory change, speech change, focal weakness, seizures, loss of consciousness and weakness. BP (!) 195/126 Pulse (!) 59 Temp 37 ?C (98.6 ?F) Resp 18 Wt 75.8 kg (167 lb) LMP 05/17/2023 (Exact Date) SpO2 99% BMI 29.58 kg/m? PAST MEDICAL HISTORY Diagnosis Date Anxiety generalized anxiety AND panic disorder (diagnosed by PCP) Chronic back [...] Maple Flavor, Metronidazole, and Seasonal Allergies MEDICATIONS lisinopril (ZESTRIL) 10 mg tablet Take 1 tablet by mouth once daily. polyethylene glycol 3350 (MIRALAX) 17 gram/dose powder 17 g (~1 heaping tablespoon) dissolved in 120 to 240 mL (4 to 8 ounces) of beverage, once daily. ondansetron orally disintegrating (ZOFRAN ODT) 4 mg disintegrating tablet Take 1 tablet by mouth every 6 hours as needed for nausea/vomiting. Omeprazole Magnesium (PRILOSEC OTC) 20 mg tablet Take 1 tablet by mouth once daily. fluticasone (FLONASE) 50 mcg/actuation nasal spray Use 2 Sprays in each nostril once daily. Rinse mouth after use. albuterol HFA (PROVENTIL HFA, VENTOLIN HFA) 90 [...] nursing note reviewed. Constitutional: Appearance: Normal appearance. HENT: Right Ear: Tympanic membrane, ear canal and external ear normal. Left Ear: Tympanic membrane, ear canal and external ear normal. Eyes: Extraocular Movements: Right eye: Normal extraocular motion and no nystagmus. Left eye: Normal extraocular motion and no nystagmus. Pupils: Pupils are equal, round, and reactive to light. Cardiovascular: Rate and Rhythm: Normal rate and regular rhythm. Heart sounds: Normal heart sounds. Pulmonary: Effort: Pulmonary effort is normal. No respiratory distress. Breath sounds: Normal breath sounds. No wheezing or rales. Skin: General: Skin is warm and dry. Findings: No erythema or rash. Neurological: Mental Status: She is alert and oriented to person, place, and time. Cranial Nerves: No cranial nerve defi (more content not included)... [facility] 01-04-2024 History of Presen t illness Narrative Subjective Dizziness The patient's pertinent negatives include no focal weakness or weakness. Associated symptoms include dizziness and headaches. Pertinent negatives include no chest pain, fever, nausea, shortness of breath or vomiting. Indigo Meier is a 48 year old female who presents with dizziness of sudden onset at work today. She had bent over to get something out of a filing cabinet and when she sat up felt dizzy. She has had vertigo in the past and figured it was d/t that but it did not get better after resting. She also noticed her hands were shaking and she was seeing some spots in her vision. Review of Systems Constitutional: Negative for chills and fever. Respiratory: Negative for shortness of breath. Cardiovascular: Negative for chest pain. Gastrointestinal: Negative for nausea and vomiting. Neurological: Positive for dizziness and headaches. Negative for sensory change, speech change, focal weakness, seizures, loss of consciousness and weakness. BP (!) 195/126 Pulse (!) 59 Temp 37 C (98.6 F) Resp 18 Wt 75.8 kg (167 lb) LMP 05/17/2023 (Exact Date) SpO2 99% BMI 29.58 kg/m PAST MEDICAL HISTORY Diagnosis Date Anxiety [...] Maple Flavor, Metronidazole, and Seasonal Allergies MEDICATIONS lisinopril (ZESTRIL) 10 mg tablet Take 1 tablet by mouth once daily. polyethylene glycol 3350 (MIRALAX) 17 gram/dose powder 17 g (~1 heaping tablespoon) dissolved in 120 to 240 mL (4 to 8 ounces) of beverage, once daily. ondansetron orally disintegrating (ZOFRAN ODT) 4 mg disintegrating tablet Take 1 tablet by mouth every 6 hours as needed for nausea/vomiting. Omeprazole Magnesium (PRILOSEC OTC) 20 mg tablet Take 1 tablet by mouth once daily. fluticasone (FLONASE) 50 mcg/actuation nasal spray Use 2 Sprays in each nostril once daily. Rinse mouth after use. albuterol HFA (PROVENTIL HFA, VENTOLIN HFA) 90 [...] nursing note reviewed. Constitutional: Appearance: Normal appearance. HENT: Right Ear: Tympanic membrane, ear canal and external ear normal. Left Ear: Tympanic membrane, ear canal and external ear normal. Eyes: Extraocular Movements: Right eye: Normal extraocular motion and no nystagmus. Left eye: Normal extraocular motion and no nystagmus. Pupils: Pupils are equal, round, and reactive to light. Cardiovascular: Rate and Rhythm: Normal rate and regular rhythm. Heart sounds: Normal heart sounds. Pulmonary: Effort: Pulmonary effort is normal. No respiratory distress. Breath sounds: Normal breath sounds. No wheezing or rales. Skin: General: Skin is warm and dry. Findings: No erythema or rash. Neurological: Mental Status: She is alert and oriented to person, place, and time. Cranial Nerves: No cranial nerve deficit. Motor: No weakness. Gait: Gait normal. ASSESSMENT/PLAN: 1. Secondary hypertension - ICD9: 405.99, ICD10: I15.9 (primary diagnosis) 2. Dizziness - ICD9: 780.4, ICD10: R42 - patient referred to ER for further evaluation d/t dizziness, headache, and elevated BP. She is agreeable and will go directly to ER. She appears hemodynamically stable for transport by private vehicle. Jessica Hutchison APRN.NEWSPAPER OR PERIODICAL EDITOR documented in this encounter [facility] 12-24-2023 Miscellaneous Notes JAN-10/08/23 Labs-08/03/23 NOV-01/07/24 Mu Samson LPN documented in this encounter [facility] 12-17-2023 Note HNO ID: [id number] Author: ANIYA RAMÍREZ APRN.NEWSPAPER OR PERIODICAL EDITOR Service: ? Author Type: Nurse Practitioner Type: Progress Notes Filed: 12/17/2023 12:06 Note Text: Indigo Meier is a 48 year old female who presents for problem visit of urinary frequency, vaginal itching, and vaginal odor. HPI: Indigo was treated for a UTI at the end of November and continues to have urinary frequency. She is also experiencing itching and odor. She notices some bumps to the mons. She would like to be rescreened for STIs. OB History T0 L3 SAB0 IAB0 Ectopic0 Multiple0 Live Births0 Genetic Supervisor History LMP: 05/17/2023 (Exact Date), IUD Age at Menarche: Age at First : Age at Menopause: Genetic Supervisor History Comments: Sexual Activity: Yes; Male Contraception: Tubal Ligation, I.U.D. PAST MEDICAL HISTORY Diagnosis Date - Anxiety generalized anxiety AND panic disorder (diagnosed by PCP) - Chronic back pain mild scolosis and sciatica AND SI joint locks up; was seeing pain management, now sees PCP - GERD (gastroesophageal reflux disease) - Hemorrhoids - Hyperlipidemia 2011 - Hypertension - Marijuana use - Vertigo PAST SURGICAL HISTORY Procedure Laterality Date - ABDOMINAL SURGERY HX - BREAST REDUCTION 07/2020 - BREAST SURGERY HX - CHOLECYSTECTOMY 2009 Cholecystectomy - COLONOSCOPY 04/25/2022 repeat in 10 years - EGD W/O BRSH SPEC VARICIES INJ 04/25/2022 - HEMORROIDECTOMY INTERNAL 04/26/2022 - INSERTION OF IUD - LIG/TRNSXJ FLP TUBE ABDL/VAG APPR UNI/BI Tubal ligation - SHX COSMETIC SURGERY FAMILY HISTORY Problem Relation Age of Onset - Hypertension Mother - Hyperlipidemia Mother - None Father - other (Other) Father MVA - heart attack - Diabetes Brother - Hyperlipidemia Brother - Heart Brother - Asthma Son - Allergies Son - Allergies Son - Cancer Sister 41 cervical, ?lymph - Diabetes Sister - Heart Brother CAD-quadruple bypass, age 46 - Heart Brother CAD stent placement Social History Tobacco Use - Smoking status: Never - Smokeless tobacco: Never Vaping Use - Vaping Use: Never used Substance Use Topics - Alcohol use: No - Drug use: Yes Types: Marijuana Comment: yolanda Current Outpatient Medications Medication Sig - polyethylene glycol 3350 (MIRALAX) 17 gram/dose powder 17 g (~1 heaping tablespoon) dissolved in 120 to 240 mL (4 to 8 ounces) of beverage, once daily. - ondansetron orally disintegrating (ZOFRAN ODT) 4 mg disintegrating tablet Take 1 tablet by mouth every 6 hours as needed for nausea/vomiting. - Omeprazole Magnesium (PRILOSEC OTC) 20 mg tablet Take 1 tablet by mouth once daily. - fluticasone (FLONASE) 50 mcg/actuation nasal spray Use 2 Sprays in each nostril once daily. Rinse mouth after use. - lisinopril (ZESTRIL) 10 mg tablet Take 1 tablet by mouth once daily. - albuterol HFA (PROVENTIL HFA, VENTOLIN HFA) 90 mcg/actuation inhaler Inhale 2 Puffs as instructed every 6 hours as needed for wheezing/shortness of breath. - cyclobenzaprine (FLEXERIL) 10 mg tablet Take 1 tablet by mouth three times a day as needed for muscle spasm. - metoprolol tartrate, short acting, (LOPRESSOR) 50 mg tablet Take 1 tablet by mouth twice daily. - simvastatin (ZOCOR) 10 mg tablet Take 1 tablet by mouth once daily. - Lactobacillus acidophilus (FLORAJEN ACIDOPHILUS) 20 billion cell cap Take 1 capsule by mouth once daily. - levonorgestrel (MIRENA) 20 mcg/24 hours (5 yrs) 52 mg IUD 1 Each by INTRAUTERINE route as directed. - Cholecalciferol, Vitamin D3, 1,000 unit cap Take 1 capsule by mouth once daily. No current facility-administered medications for this visit. Allergies As of Date: 12/17/2023 Allergen Noted Reaction HOUSE DUST 08/12/2020 Cough MAPLE FLAVOR 08/12/2020 Swelling METRONIDAZOLE 09/14/2022 GI Upset SEASONAL ALLERGIES 04/09/2019 Shortness of Breath Fully Assessed 12/10/2023 REVIEW OF SYSTEMS Bladder: No dysuria, gross hematuria, urinary urgency, or incontinence. 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 ARCHITECTURAL: + vaginal odor, vaginal itching Allergies and current medication updated:Yes EXAM: BP 110/80 Wt 167 lb (75.8kg) LMP 05/17/2023 GENERAL: pleasant, female in no apparent distress CHEST: Normal inspiratory effort PELVIC: external genitalia normal, normal Bartholin's glands, urethra, [place]'s glands, no vulvar lesions, no cervical lesions, good vaginal support, physiologic discharge present, normal appearing perineal body and perianal region + folliculitis to mons pubis BIMANUAL: uterus normal size, shape and consistency, no adnexal masses, and non-tender NEURO: alert and oriented x3,exam grossly non-focal EXTREMITIES: normal ASSESSMENT AND PLAN: 1. Vaginal odor - ICD9: 625.8, ICD10: N89.8 (primary diagnosis) 2. Vaginal itching - ICD9: 698.1, ICD10: N89.8 - BACTERIAL VAGINOSIS NAAT - GONORRHEA/CHLAMYDIA NAAT - UROGENITAL UREAPLASMA AND MYCOPLASMA SPECIES BY PCR, FOR GENITAL, RECTAL (more content not included)... [facility] 12-17-2023 History of Presen t illness Narrative Indigo Meier is a 48 year old female who presents for problem visit of urinary frequency, vaginal itching, and vaginal odor. HPI: Indigo was treated for a UTI at the end of November and continues to have urinary frequency. She is also experiencing itching and odor. She notices some bumps to the mons. She would like to be rescreened for STIs. OB History T0 L3 SAB0 IAB0 Ectopic0 Multiple0 Live Births0 Genetic Supervisor History LMP: 05/17/2023 (Exact Date), IUD Age at Menarche: Age at First : Age at Menopause: Genetic Supervisor History Comments: Sexual Activity: Yes; Male Contraception: [...] Drug use: Yes Types: Marijuana Comment: yolanda Current Outpatient Medications Medication Sig polyethylene glycol 3350 (MIRALAX) 17 gram/dose powder 17 g (~1 heaping tablespoon) dissolved in 120 to 240 mL (4 to 8 ounces) of beverage, once daily. ondansetron orally disintegrating (ZOFRAN ODT) [...] for this visit. Allergies As of Date: 12/17/2023 Allergen Noted Reaction HOUSE DUST 08/12/2020 Cough MAPLE FLAVOR 08/12/2020 Swelling METRONIDAZOLE 09/14/2022 GI Upset SEASONAL ALLERGIES 04/09/2019 Shortness of Breath Fully Assessed 12/10/2023 REVIEW OF SYSTEMS Bladder: No dysuria, gross hematuria, urinary urgency, or incontinence. 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 ARCHITECTURAL: + vaginal odor, vaginal itching Allergies and current medication updated:Yes EXAM: BP 110/80 Wt 167 lb (75.8kg) LMP 05/17/2023 GENERAL: pleasant, female in no apparent distress CHEST: Normal inspiratory effort PELVIC: external genitalia normal, normal Bartholin's glands, urethra, [place]'s glands, no vulvar lesions, no cervical lesions, good vaginal support, physiologic discharge present, normal appearing perineal body and perianal region + folliculitis to mons pubis BIMANUAL: uterus normal size, shape and consistency, no adnexal masses, and non-tender NEURO: alert and oriented x3,exam grossly non-focal EXTREMITIES: normal ASSESSMENT AND PLAN: 1. Vaginal odor - ICD9: 625.8, ICD10: N89.8 (primary diagnosis) 2. Vaginal itching - ICD9: 698.1, ICD10: N89.8 - BACTERIAL VAGINOSIS NAAT - GONORRHEA/CHLAMYDIA NAAT - UROGENITAL UREAPLASMA AND MYCOPLASMA SPECIES BY PCR, FOR GENITAL, RECTAL, URINE SAMPLES - Will direct treatment based on results 3. Urinary frequency - ICD9: 788.41, ICD10: R35.0 - Urine culture sent RTO for annual exam. Aniya Ramírez APRN.CNP Medical Decision Making: Problems: Moderate: New problem with uncertain prognosis Data: Unique test(s) ordered: 3+ Risk: Low: Low risk from testing/treatment Medical Decision Making Level: 4 - Moderate documented in this encounter [facility] 12-17-2023 Miscellaneous Notes Patient called into office and scheduled for visit today. Mango Laurent RN documented in this encounter [facility] 12-10-2023 Miscellaneous Notes Reason for Call: Constipation Cramping, Bloated, Urinating frequently Outcome: Advised to See HCP within 4 hours. Patient verbalized understanding and is agreeable to the plan. Reason for Disposition [1] Rectal pain or fullness from fecal impaction (rectum full of stool) AND [2] NOT better after SITZ bath, suppository or enema Answer Assessment - Initial Assessment Questions 1. STOOL PATTERN OR FREQUENCY: 3 days, no BM 2. STRAINING: Yes 3. RECTAL PAIN: Yes 4. STOOL COMPOSITION: Soft, Solid 4 days ago after taking MIralax, didn't seem like I got it all out 5. BLOOD ON STOOLS: Blood on stool, toilet paper and in toilet 6. CHRONIC CONSTIPATION: Denies,after being started on Macrobid, for recent UTI it started 7. CHANGES IN DIET OR HYDRATION: 2 glasses apple juice,Gatorade, water 8. MEDICINES: Denies 9. LAXATIVES: Miralax, magnesium citrate,enema 10. ACTIVITY: Usually active, feeling under the weather today 11. CAUSE: Unknown 12. OTHER SYMPTOMS: Bloating, abdominal pain, pressure of rectum, feels like I can go but then I can't 13. MEDICAL HISTORY: Hemorrhoid surgery 14. : LMP; This weekend, spotting on the audi Protocols used: [id number] documented in this encounter [facility] 12-07-2023 Instructions Jessica Hutchison APRN.RIZWAN - 12/07/2023 9:38 AM EST ASSESSMENT/PLAN: 1. [...] pelvis. IMPRESSION: NO ACUTE ABDOMINAL PATHOLOGY VISUALIZED Linen Room Supervisor: EVELINE Transcribe Date/Time: Dec 07 2023 9:29A [...] analgesia. - Discussed expected course of illness Jessica Hutchison APRN.RIZWAN Constipation What is constipation? Constipation is infrequent [...] of the intestines. documented in this encounter [facility] 12-07-2023 History of Presen t illness Narrative Radiology Service Progress Note PATIENT NAME: Indigo Meier DATE OF SERVICE: December 07, 2023 TIME: 9:16 AM PATIENT IDENTITY VERIFICATION COMPLETED USING TWO (2) IDENTIFIERS: Name and Date of confirmed by patient verbally. FALL SCREENING: Has the patient had 2 falls in the last year or 1 fall with injury or currently using an Ambulatory Assistive Device (Walker, Cane, Wheelchair, Crutches, etc.)? No PATIENT GENDER DATA: Female. status: : No status: NO. PATIENT RELEVANT IMPLANT DATA REVIEWED: Yes PATIENT PRESENTS WITH AN IMPLANTABLE OR ATTACHED WELT CUTTER: No RADIOLOGY DEPARTMENT: General X-ray: Exam(s) Completed: Abdomen X-Ray: Abdomen PERIPHERAL IV DATA: Not applicable SIGNED BY: RT Gayle(R) December 07, 2023 9:16 AM documented in this encounter [facility] 12-07-2023 Note HNO ID: [id number] Author: YESSICA TOURE RT(R) Service: Radiology Author Type: Technologist Type: Progress Notes Filed: 12/07/2023 09:25 Note Text: Radiology Service Progress Note PATIENT NAME: Indigo Meier DATE OF SERVICE: December 07, 2023 TIME: 9:16 AM PATIENT IDENTITY VERIFICATION COMPLETED USING TWO (2) IDENTIFIERS: Name and Date of confirmed by patient verbally. FALL SCREENING: Has the patient had 2 falls in the last year or 1 fall with injury or currently using an Ambulatory Assistive Device (Walker, Cane, Wheelchair, Crutches, etc.)? No PATIENT GENDER DATA: Female. status: : No status: NO. PATIENT RELEVANT IMPLANT DATA REVIEWED: Yes PATIENT PRESENTS WITH AN IMPLANTABLE OR ATTACHED WELT CUTTER: No RADIOLOGY DEPARTMENT: General X-ray: Exam(s) Completed: Abdomen X-Ray: Abdomen PERIPHERAL IV DATA: Not applicable SIGNED BY: RT Gayle(R) December 07, 2023 9:16 AM [facility] 12-07-2023 Note HNO ID: [id number] Author: JESSICA HUTCHISON APRN.NEWSPAPER OR PERIODICAL EDITOR Service: ? Author Type: Nurse Practitioner Type: Progress Notes Filed: 12/07/2023 10:06 Note Text: Subjective Constipation Associated symptoms include abdominal pain. Indigo Meier is a 48 year old female who [...] pain. BP 134/90 Pulse 62 Temp 36.3 ?C (97.3 ?F) Resp 18 Wt 76 kg (167 lb 8.8 oz) LMP 05/17/2023 (Exact Date) SpO2 99% BMI 29.68 kg/m? PAST MEDICAL HISTORY Diagnosis Date Anxiety generalized anxiety AND panic disorder (diagnosed by PCP) Chronic back [...] pelvis. IMPRESSION: NO ACUTE ABDOMINAL PATHOLOGY VISUALIZED Linen Room Supervisor: EVELINE Transcribe Date/Time: Dec 07 2023 9:29A (more content not included)... [facility] 12-07-2023 History of Presen t illness Narrative Subjective Constipation Associated symptoms include abdominal pain. Indigo Meier is a 48 year old female who [...] pelvis. IMPRESSION: NO ACUTE ABDOMINAL PATHOLOGY VISUALIZED Linen Room Supervisor: EVELINE Transcribe Date/Time: Dec 07 2023 9:29A [...] analgesia. - Discussed expected course of illness Jessica Hutchison APRN.NEWSPAPER OR PERIODICAL EDITOR documented in this encounter [facility] 11-30-2023 Miscellaneous Notes Patient calls and states that she was diagnosed with UTI in [facility] care on 11/28/2023. Patient reports that today she had to leave work due to UTI symptoms. Patient asking if a letter can be written for work to say that she was diagnosed with UTI and that is the reason why she had to leave work? Please review and advise, Alessia Miguel RN documented in this encounter [facility] 11-28-2023 Note HNO ID: [id number] Author: JESSICA DEAN PA Service: ? Author Type: Physician Cotton Weigher Type: Progress Notes Filed: 11/28/2023 09:29 Note Text: This note was created using mobile melting gmbhter. Subjective Indigo Meier is a 48 year old female. HPI [...] MEDICAL HISTORY Diagnosis Date Anxiety generalized anxiety AND panic disorder (diagnosed by PCP) Chronic back [...] Objective BP 157/114 Pulse 72 Temp 36.7 ?C (98.1 ?F) Wt 77.1 kg (170 lb) LMP 05/17/2023 (Exact Date) SpO2 95% BMI 30.11 kg/m? Physical Exam Vitals and nursing note reviewed. Exam conducted with a fan mail clerk present. Constitutional: General: She is not in [...] or bleeding. Cervix: Discharge present. No erythema. (more content not included)... [facility] 11-28-2023 History of Presen t illness Narrative This note was created using mobile melting gmbhter. Subjective Indigo Meier is a 48 year old female. HPI [...] nursing note reviewed. Exam conducted with a fan mail clerk present. Constitutional: General: She is not in [...] 623.5, ICD10: N89.8 - GONORRHEA/CHLAMYDIA NAAT - TIFFANY/TRICHOMONAS NAAT - BACTERIAL VAGINOSIS NAAT -Please treat [...] evaluation. JOE Cortes documented in this encounter [facility] 11-22-2023 Miscellaneous Notes The following approved [...] has been sent, or for any updates. [phone]. documented in this encounter [facility] 11-20-2023 Miscellaneous Notes Letter completed and sent in [employer] as requested. Ok for letter. Patient called in asking for a letter for [employer] stating that she is under this office's care for left shoulder pain, has difficulty doing most activities and has been receiving cortisone injections. Per patient we can put letter in MyChart. Ok for letter? documented in this encounter [facility] 11-05-2023 Note HNO ID: [id number] Author: JONAH IBRAHIM MD Service: ? Author Type: Physician Type: Progress Notes Filed: 11/05/2023 14:00 Note Text: Jonah Ibrahim MD Department of Orthopaedics Orthopaedics [address] [facility] [address] Dept: [phone] Dept November 05, 2023 CHIEF COMPLAINT: Follow Up and Pain of the Left Shoulder [facility] ROOMING INTAKE FLOWSHEET DATA Pain Pain Level: 7 Pain Location: Shoulder-Right Description: Tightness Duration Amount of Time: 9 Duration Units: Months Frequency: Intermittent Intervention/Comfort measure: Medication, Relaxation, Reposition Patient presents with: Left Shoulder - Follow Up, Pain Patient presents for follow up of L shoulder pain. Was given Voltaren gel and it did not offer much relief. Would like to try a cortisone injection today. ASSESSMENT: M25.512, G89.29 Chronic left shoulder pain (primary encounter diagnosis) M25.819 Shoulder impingement PLAN: She is still describing some pain across the front of the clavicle, however her focal exam today is suggestive of some impingement. Will try cortisone injection and see how things go. I may consider an MRI if symptoms do not improve. Ms. Indigo Meier was advised as to contrast therapies and/or to take analgesics/anti-inflammatories as needed and all contraindications were reviewed. OBJECTIVE: Ms. Indigo Meier is a pleasant 47 year old in no apparent distress. Gen:LMP 05/17/2023 nl development, non obese, no deformities ENT: Normocephalic, normal hearing, moist mucosa CV: Pulses:Radial= 2+ and symmetric, capillary refill < 2 secs, no peripheral edema/varicosities Skin: no rash, bruising or lesions. Good turgor. Psych: cooperative and appropriate, alert and oriented x 3, good mood and affect. Musculoskeletal: Tender to palpation over the greater. Positive impingement signs. Large Joint Arthro/Inj: L subacromial bursa Informed Consent Consent Obtained: Verbal [place] Protocol A moment to CARE was completed. SIGN IN Sign in communication not applicable due to emergent procedure. Personnel directly involved with the procedure wore the appropriate PPE. Special Equipment: N/A Patient/Surrogate Stated/Verified: Patient name, Date of , Relevant allergies and Intended procedure TIME OUT Intended patient and procedure match the source document(s). Consent documented and matches the intended procedure. Relevant labs, photos, and/or imaging studies have been reviewed. Correct side/site marked and visible. Medications required for procedure verified. No fire risk assessment and interventions applicable. No implant(s) inserted. 11/05/2023 1:59 PM The procedure site was prepped in the usual sterile fashion. Site: L subacromial bursa Medications: 6 mg betamethasone acetate-betamethasone sodium phosphate 6 mg/mL Anesthetics: 4 mL lidocaine (PF) 10 mg/mL (1 %) Outcome: Tolerated well, no immediate complications Post-injection instructions were reviewed with the patient and the patient voiced understanding of these instructions. SIGN OUT No instruments, equipment or retained foreign bodies applicable. Supporting Subjective Information Below: Past Surgical History: PAST SURGICAL HISTORY Procedure Laterality Date ABDOMINAL SURGERY HX BREAST REDUCTION 07/2020 BREAST SURGERY HX CHOLECYSTECTOMY 2009 Cholecystectomy COLONOSCOPY 04/25/2022 repeat in 10 years EGD W/O BRSH SPEC VARICIES INJ 04/25/2022 HEMORROIDECTOMY INTERNAL 04/26/2022 INSERTION OF IUD LIG/TRNSXJ FLP TUBE ABDL/VAG APPR UNI/BI Tubal ligation SHX COSMETIC SURGERY Medications: Current Outpatient Medications Medication Sig Omeprazole Magnesium [...] Take 1 tablet by mouth once daily. nystatin-triamcinolone (MYCOLOG) ointment Apply sparingly to perineum twice daily for irritation/infection. No current facility-administered medications for (more content not included)... [facility] 10-25-2023 Note HNO ID: [id number] Author: DWAIN HAWIKNS APRN.NEWSPAPER OR PERIODICAL EDITOR Service: ? Author Type: Nurse Practitioner Type: Progress Notes Filed: 10/25/2023 10:51 Note Text: Subjective Patient came in with complaints of upper middle back rash that she has had for about a year. Patient says he cannot really see it but it just itches. Patient also said she is having some frequency and burning when she urinates. Patient is also worried about being exposed to an STD. Patient denies any other symptoms. The history is provided by the patient. No chinese language professor was used. Rash UTI Review of Systems Constitutional: Negative. Genitourinary: Positive for dysuria. Skin: Positive for itching and rash. Objective Physical Exam Exam conducted with a fan mail clerk present. Constitutional: Appearance: Normal appearance. Pulmonary: Effort: Pulmonary effort is normal. Genitourinary: Comments: Redness of cervix noted as well as milk discharge Skin: Comments: Non visible itching rash noted. Neurological: Mental Status: She is alert. PAST MEDICAL HISTORY Diagnosis Date Anxiety generalized anxiety AND panic disorder (diagnosed by PCP) Chronic back [...] Maple Flavor, Metronidazole, and Seasonal Allergies MEDICATIONS oxybutynin XL (DITROPAN XL) 5 mg 24 [...] hours as needed for wheezing/shortness of breath. nystatin-triamcinolone (MYCOLOG) ointment Apply sparingly to perineum twice daily for irritation/infection. cyclobenzaprine (FLEXERIL) 10 mg tablet Take 1 [...] Take 1 capsule by mouth once daily. triamcinolone (KENALOG) 0.025 % cream Apply to affected area two times a day for 7 days. [...] Drug use: Yes Types: Marijuana Comment: yolanda ASSESSMENT/PLAN: 1. Urinary frequency - ICD9: 788.41, ICD10: R35.0 (primary diagnosis) - UA DIP, URINE (POC) - URINE CULTURE - BACTERIAL VAGINOSIS NAAT - TIFFANY/TRICHOMONAS NAAT - GONORRHEA/CHLAMYDIA NAAT 2. Rash - ICD9: 782.1, ICD10: R21 - TRIAMCINOLONE ACETONIDE 0.025 % TOPICAL CREAM Was educated about proper use of medication and supportive therapies. If anything comes back positive please treat patient accordingly. Patient was okay with this care plan and will follow-up for dermatology. Dwain Hawkins APRN.[facility] 10-08-2023 Note HNO ID: [id number] Author: Jaguar COOK PA-C Service: ? Author Type: Physician Cotton Weigher Type: Progress Notes Filed: 10/08/2023 15:48 Note Text: MyChart Zoom Video Visit was used for evaluation of this patient. Location of patient: [place] Patient was offered a virtual/telemedicine appointment in lieu of an office visit due to recommendations to reduce patient exposure to COVID-19. Patient is aware of limitations of performing the visit without a face to face visit in the office setting and agrees. I have communicated my name and active licensure. The patient's identity and physical location were verified at the time of this visit. Either the patient or their legal event marketing representative has been informed of the risks and benefits of -- and alternatives to -- treatment through a remote evaluation and consents to proceed with the evaluation remotely. 10:23 AM 47 year old female with c/o here for follow up Concerned about hgb in urine on several checks. Clear rhinorrhea. + Sneezing. No cough, doesn't feel ill. Prone to allergies. Allergy to dust HTN: Current meds: Lisinopril 10mg daily Metoprolol tartrate twice daily Patient is compliant with meds Yes Monitors bp at home: No. If yes, readings: Denies side effects: Yes. Chest pain: No. Dyspnea: No. Edema: No. Palpitations: No. Syncope: No. Headache: No. Dizziness: No. Last 3 Encounter BP Readings: Date: BP: 10/03/2023 124/80 08/05/2023 142/100 07/26/2023 160/100 Last 2 Encounter Wt Readings: Date: Wt: 10/03/2023 77.1 kg (170 lb) 08/05/2023 74.8 kg (165 lb) Hyperlipidemia: Current medication Simvasatatin 10mg daily HS Taking medication consistently Yes Observing low cholesterol high fiber diet Yes Muscle aches No Stomach complaints/ diarrhea No Last 2 Lipids: Component Latest Ref Rng AND Units 04/22/2018 05/07/2019 Cholesterol, Total <200 mg/dL 199 187 Triglyceride <150 mg/dL 206 (H) 252 (H) HDL Cholesterol >39 mg/dL 48 41 LDL Cholesterol <100 mg/dL 110 (H) 96 Non HDL Cholesterol <130 mg/dL 151 (H) 146 (H) Fasting Time hrs 10 12 VLDL Cholesterol <30 mg/dL 41 (H) 50 (H) TC:HDL Ratio <5.10 4.15 4.56 LDL:HDL Ratio <2.54 2.29 2.34 Prediabetes Hemoglobin A1C (%) Date Value 10/26/2022 5.9 06/10/2015 5.4 ) Adenoma of liver Liver nodule Elevated liver enzymes 08/11/2022 consult hepatology Dee Dee Nava MD: Annual LFT to confirm continued normalization of LFT, no intervention indicated 03/23/2022 MRI Liver w/wo IVCon: 1.2 x 1 cm nodule in the inferior left lobe of the liver; 8 mm focus of arterial phase enhancement in the right dome of isointense to liver parenchyma on other sequences. Normal hepatic morphology: liver hyperplasia vs hepatic adenoma. Portal vein and branches, splenic vein, superior mesenteric vein and hepatic veins are patent. Biliary: No duct dilation or filling defect. Gallbladder is absent. Spleen, pancreas, kidneys WNL. 6 month f/u for stability Needs updated lab. Gastroesophageal reflux disease without esophagitis Current medication: omeprazole 20mg daily AC Current symptoms: none. Last Mg level if on PPI chronically: due. Heartburn is controlled: Yes. Dysphagia: No. Bloody or black stools: No. Bowel changes: No. Last EGD and/or colonoscopy: 04/25/2022. Convulsions, unspecified convulsion type (hcc) None since left ex Fibromyalgia Has persistent sx right lower hip Has learned to manage with stretching. Never goes away completely Going to gym routinely, has lost inches. Anxiety state Nonorganic sleep disorder Marijuana use HISTORIES FAMILY HISTORY Problem Relation Age of Onset Hypertension Mother Hyperlipidemia Mother None Father other (Other) Father MVA - heart attack Diabetes Brother Hyperlipidemia Brother Heart Brother Asthma Son Allergies Son Allergies Son Cancer Sister 41 cervical, ?lymph Diabetes Sister Heart Brother CAD-quadruple bypass, age 46 Heart Brother CAD stent placement PAST MEDICAL HISTORY Diagnosis Date Anxiety generalized anxiety AND panic disorder (diagnosed by PCP) Chronic back [...] Drug use: Yes Types: Marijuana Comment: yolanda (more content not included)... [facility] 10-03-2023 Note HNO ID: [id number] Author: Dwain Hawkins APRN.NEWSPAPER OR PERIODICAL EDITOR Service: ? Author Type: Nurse Practitioner Type: Progress Notes Filed: 10/03/2023 11:16 AM Note Text: CC: Patient presents with: Vaginal Problem: itching, std check HPI Indigo Meier is a 47 year old female who presents with complaint of possible UTI. These symptoms have been present for few days. Associated symptoms: abnormal vaginal discharge and vaginal itching Denies: fever, chills, sweats, abdominal pain, and flank pain Treatments: nothing The ROS was otherwise negative. PMH, Medications, labs, allergies, and recent past visits with PCP were reviewed and updated as able. PHYSICAL EXAM: BP 124/80 Pulse 68 Temp 36.1 ?C (96.9 ?F) Resp 16 Wt 77.1 kg (170 lb) LMP 05/17/2023 (Exact Date) BMI 30.11 kg/m? General: Well appearing and alert Abdomen: nontender per patient Vaginal exam: significant thick white vaginal discahrge noted. Sheet Rock Applier present. No other significant findings. PAST MEDICAL HISTORY Diagnosis Date Anxiety generalized anxiety AND panic disorder (diagnosed by PCP) Chronic back [...] Maple Flavor, Metronidazole, and Seasonal Allergies MEDICATIONS lisinopril (ZESTRIL) 10 mg tablet Take 1 tablet by mouth once daily. albuterol HFA (PROVENTIL HFA, VENTOLIN HFA) 90 mcg/actuation inhaler Inhale 2 Puffs as instructed every 6 hours as needed for wheezing/shortness of breath. nystatin-triamcinolone (MYCOLOG) ointment Apply sparingly to perineum twice daily for irritation/infection. cyclobenzaprine (FLEXERIL) 10 mg tablet Take 1 [...] Drug use: Yes Types: Marijuana Comment: yolanda ASSESSMENT/PLAN: 1. Vaginal itching - ICD9: 698.1, ICD10: N89.8 - UA DIP, URINE (POC) - URINE CULTURE - BACTERIAL VAGINOSIS NAAT - TIFFANY/TRICHOMONAS NAAT - GONORRHEA/CHLAMYDIA NAAT Prescription instructions reviewed with patient as applicable. Potential red flag symptoms discussed with the patient. Reviewed appropriate action plan to take if red flag symptoms occur. Patient agreeable to treatment plan. Dwain Hawkins APRN.[facility] 09-07-2023 Miscellaneous Notes Patient was last need in office 05/18/23 by AG. Karla Verde RN documented in this encounter [facility] 08-30-2023 Miscellaneous Notes Patient has been identified by name and date of : Yes Requested Prescriptions Pending Prescriptions Disp Refills albuterol HFA (PROVENTIL HFA, VENTOLIN HFA) 90 mcg/actuation inhaler 6.7 g 5 Sig: Inhale 2 Puffs as instructed every 6 hours as needed for wheezing/shortness of breath. JAN:05-29-23 No known appointment made. RX INSTRUCTIONS: Patient aware RX will be sent to pharmacy. No need to notify patient. Larisa Sena documented in this encounter [facility] 08-20-2023 Note HNO ID: [id number] Author: Jonah Ibrahim MD Service: ? Author Type: Physician Type: Progress Notes Filed: 09/09/2023 7:21 PM Note Text: Jonah Ibrahim MD Department of Orthopaedics [facility] [address] [facility] [address] Dept: [phone] Dept August 20, 2023 CHIEF COMPLAINT: New and Pain of the Left Shoulder (Left shoulder pain/Referred by JOE Bender/Xray 07/11/2023/Last seen 10/30/2022 right leg pain) HPI: [...] UP INSTRUCTIONS: As needed. OBJECTIVE: Ms. Indigo eMier is a pleasant 47 year old in [...] No radiographic evidence of acute osseous abnormality Linen Room Supervisor: EVELINE Transcribe Date/Time: Jul 11 2023 1:17P [...] MEDICAL HISTORY Diagnosis Date Anxiety generalized anxiety AND panic disorder (diagnosed by PCP) Chronic back [...] No Drug use: Yes Types: Marijuana Comment: [facility] Medications: Current Outpatient Medications Medication Sig nystatin-triamcinolone [...] for wheezing/shortness of breath. Lactobacillus acidophilus (FLORAJEN ACIDOP (more content not included)... [facility] 08-20-2023 History of Presen t illness Narrative Jonah Ibrahim MD Department of Orthopaedics Orthopaedics [address] [facility] [address] Dept: [phone] Dept August 20, 2023 CHIEF COMPLAINT: New [...] UP INSTRUCTIONS: As needed. OBJECTIVE: Ms. Indigo Meier is a pleasant 47 year old in [...] No radiographic evidence of acute osseous abnormality Linen Room Supervisor: EVELINE Transcribe Date/Time: Jul 11 2023 1:17P [...] requesting physician via US mail. Yeison Ignacio [address] [facility] [address] M Nicolette Cook PA-C [address] [facility] [address] Jonah Ibrahim MD documented in this encounter [facility] 08-05-2023 Note HNO ID: [id number] Author: Yeison Ignacio PA-C Service: ? Author Type: Physician Cotton Weigher Type: Progress Notes Filed: 08/05/2023 2:53 PM Note Text: This note was created using Browsterriter. Subjective Indigo Meier is a 47 year old female. HPI Presents with a chief complaint of vaginal burning and itching and pain with intercourse. She had BV July 11 and was treated at that time. She had some MetroGel leftover and had used at the past few days for the burning and had intercourse while she was using this. She thinks maybe that is what was causing the burning. Denies any known rash. She has had some white discharge. Denies any new sexual partner. Denies diarrhea or vomiting. No dysuria, frequency, urgency or hematuria. Denies chance of . Review of Systems Respiratory: Negative. Cardiovascular: Negative. Gastrointestinal: Negative. Genitourinary: Positive for dyspareunia, vaginal discharge and vaginal pain. Negative for dysuria, flank pain, genital sores, urgency and vaginal bleeding. Musculoskeletal: Negative. All other systems reviewed and are negative. PAST MEDICAL HISTORY Diagnosis Date Anxiety generalized anxiety AND panic disorder (diagnosed by PCP) Chronic back [...] 1 capsule by mouth once daily. 0 nystatin-triamcinolone (MYCOLOG) ointment Apply sparingly to perineum twice daily for irritation/infection. 30 g 0 oxybutynin XL (DITROPAN XL) 5 mg [...] use: Not Currently Types: Marijuana Objective BP 142/100 Pulse 79 Temp 36.8 ?C (98.2 ?F) Resp 18 Wt 74.8 kg (165 lb) LMP 05/17/2023 (Exact Date) SpO2 97% BMI 29.23 kg/m? Physical Exam Vitals reviewed. Constitutional: Appearance: Normal appearance. HENT: Head: Normocephalic and atraumatic. Genitourinary: Comments: Patient has erythema and swelling of the right labia. Some yellow-white discharge in the vaginal canal on speculum exam. No cervical motion tenderness. No bleeding. No other lesions noted internally. Skin: General: Skin is warm and dry. Neurological: Mental Status: She is alert. Assessment and Plan ASSESSMENT/PLAN: 1. Acute vaginitis - ICD9: 616.10, ICD10: N76.0 (primary diagnosis) I did swab for BV, yeast and trichomonas. Gonorrhea chlamydia also sent. I did send Mycolog for the labial irritation/swelling. I did also swab this area for herpes. If positive she would be (more content not included)... [facility] 07-27-2023 Miscellaneous Notes Patient returned call and went over results, notes from express care provider with understanding. Left VM instructing patient to return call to receive results. Waylon Eckert MA Urine culture showed no infection. Please follow-up with your primary care provider or urology to evaluate blood in the urine. documented in this encounter [facility] 07-26-2023 Note HNO ID: [id number] Author: Yeison Ignacio PA-C Service: ? Author Type: Physician Cotton Weigher Type: Progress Notes Filed: 07/26/2023 1:54 PM Note Text: This note was created using Browsterriter. Subjective Indigo Meier is a 47 year old female. HPI [...] MEDICAL HISTORY Diagnosis Date Anxiety generalized anxiety AND panic disorder (diagnosed by PCP) Chronic back [...] Objective BP 160/100 Pulse 65 Temp 36.2 ?C (97.2 ?F) Resp 22 Wt 75.8 kg (167 lb) LMP 05/17/2023 (Exact Date) SpO2 99% BMI 29.58 kg/m? Physical Exam Vitals reviewed. Constitutional: Appearance: Normal appearance. HENT: Head: Normocephalic and atraumatic. Cardiovascular: Rate and Rhythm: Normal rate and regular rhythm. Heart sounds: Normal heart sounds. Pulmonary: Effort: Pulmonary effort is normal. Breath sounds: Normal breath sounds. Abdominal: General: Abdomen is flat. Palpations: Abdomen is soft. Tenderness: There is no abdominal tenderness. There is no (more content not included)... [facility] 07-26-2023 History of Presen t illness Narrative This note was created using NoteWriter. Subjective Indigo Meier is a 47 year old female. HPI [...] Yeison Ignacio PA-C documented in this encounter [facility] 07-18-2023 History of Presen t illness Narrative This note was created using Browsterriter. Subjective Indigo Meier is a 47 year old female. HPI [...] Yeison Ignacio PA-C documented in this encounter [facility] 07-13-2023 Miscellaneous Notes Patient identified by name and date of . I called and discussed urine culture results with patient. She denies current UTI symptoms. Jessica Hutchison APRN.RIZWAN documented in this encounter [facility] 07-11-2023 Instructions Jessica Hutchison APRN.CNP - 07/11/2023 1:39 PM EDT ASSESSMENT/PLAN: 1. Acute pain of left shoulder - ICD9: 719.41, ICD10: M25.512 (primary diagnosis) - XR SHOULDER GENERAL 3V OR MORE AP/TRUE AP/OTHER LEFT Radiologist IMPRESSION: No radiographic evidence of acute osseous abnormality. Linen Room Supervisor: EVELINE Transcribe Date/Time: Jul 11 2023 1:17P [...] analgesia. - Discussed expected course of illness Jessica Hutchison APRN.NEWSPAPER OR PERIODICAL EDITOR documented in this encounter [facility] 07-11-2023 History of Presen t illness Narrative Subjective Trauma Pertinent negatives include no chills or fever. Indigo Meier is a 47 year old female who [...] nursing note reviewed. Exam conducted with a fan mail clerk present. Constitutional: General: She is not in [...] No radiographic evidence of acute osseous abnormality. Linen Room Supervisor: EVELINE Transcribe Date/Time: Jul 11 2023 1:17P [...] analgesia. - Discussed expected course of illness Jessica Hutchison APRN.CNP documented in this encounter [facility] 07-06-2023 Miscellaneous Notes Patient notified and voiced understanding. The following approved medications have been transmitted electronically. Requested Prescriptions Signed Prescriptions Disp Refills fluconazole (DIFLUCAN) 150 mg tablet 1 tablet 0 Sig: Take 1 tablet by mouth one time only for 1 dose. Authorizing Provider: INDIGO CANDELARIO Pharmacy Information Pharmacy Address [phone] [place] [address] Lizeth Sanchez RN Fluconazole sent. Indigo Candelario APRN.CNP Patient requesting RX for Diflucan. Having vaginal irritation and itching. States she used a cucumber coolness mask on her vagina that is meant for the face. [facility] Patient can not afford to purchase OTC until payday. Monique Rosa RN documented in this encounter [facility] 06-25-2023 History of Presen t illness Narrative Radiology Service Progress Note PATIENT NAME: Indigo Meier DATE OF SERVICE: June 25, 2023 TIME: 2:25 PM PATIENT IDENTITY VERIFICATION COMPLETED USING TWO [...] IMPLANT DATA REVIEWED: Not Applicable RADIOLOGY DEPARTMENT: General X-ray: Exam(s) Completed: Lower Extremity X-Ray(s): Knee, AP / Lat / Tunne / Merchant Right and Wt. Bearing PERIPHERAL IV DATA: Not applicable SIGNED BY: RT Sadi(R) June 25, 2023 2:25 PM documented in this encounter [facility] 06-19-2023 Miscellaneous Notes Patient has been identified by name and date of : Yes Patient phones for refill(s): Requested Prescriptions Pending Prescriptions Disp Refills lisinopril (ZESTRIL) 10 mg tablet 30 tablet 1 Sig: Take 1 tablet by mouth once daily. Date of last office visit in primary care: 05/29/2023 Please advise. Thank you. Mignon Aragon LPN documented in this encounter [facility] 05-29-2023 Instructions Jennifer Whitfield APRN.RIZWAN - 05/29/2023 1:16 PM EDT Start lisinopril daily. Recheck in a month. Plan for labs that day. documented in this encounter [facility] 05-29-2023 History of Presen t illness Narrative This is a 47 year old female who presents today with: Patient presents with: Blood Pressure HISTORY OF PRESENT ILLNESS: Indigo Meier is a 47 year old female. Patient [...] as needed for worsening/no improvement. Jennifer Whitfield APRN.NEWSPAPER OR PERIODICAL EDITOR documented in this encounter [facility] 05-23-2023 History of Presen t illness Narrative Episode Visit Count: 3 Therapist That Will Accept/Oversee The Plan Of Care: Karina Rankin Start of Care Date: 03/20/23 Onset Date: 02/15/23 Plan of Care Certification Date: 03/20/23 Next Certification Due Date: 04/24/23 [facility] PHYSICAL THERAPY DISCONTINUANCE OF CARE PLAN OF CARE UPDATE: Assessment: Indigo Meier is discontinued from Physical Therapy services due to Patient/Client declining further intervention.. Patient was seen for 3 visits from Start of Care Date: 03/20/23 to 05/23/2023 and treatment included: Therapeutic exercise and Self-correction management. Goals for Episode of Care: created [...] of March 2023. Last seen 04/04/23 by MANAGER CASE. She presents today asking if reasons she [...] helpful PROMIS Scales Higher is Better 05/23/2023 04/15/202303/1903/19/2023 Phys Func - Score 44 (mild dysfunction) [...] performance and compliance. Patient education as noted. Self-Intermediate Management: 1: *discussed self management of LBP with MARIA GUADALPUE and prone press ups Skilled Intervention: Skilled [...] program to facilitate proper performance and compliance. Tommying Therapeutic Exercise Treatment Minutes: 20 Self-Care/Home Management Treatment Minutes: 5 Total Treatment Time Minutes (timed/untimed): 25 Karina Rankin PT documented in this encounter [facility] 05-18-2023 Instructions Indigo Candelario APRN.CNP - 05/18/2023 9:28 AM EDT Minimizing irritation [...] scratching at night. documented in this encounter [facility] 05-18-2023 History of Presen t illness Narrative Sheet Rock Applier offered: Patient declines. Indigo Meier is a 47 year old female who [...] L3 SAB0 IAB0 Ectopic0 Multiple0 Live Births0 Genetic Supervisor History LMP: 05/17/2023 (Exact Date), IUD Age at Menarche: Age at First : Age at Menopause: Genetic Supervisor History Comments: Sexual Activity: Yes; Male Contraception: [...] external genitalia normal, normal Bartholin's glands, urethra, [place]'s glands, no vulvar lesions, no cervical lesions, [...] after following vulvar hygiene instructions. Indigo Candelario APRN.CNP Medical Decision Making: Problems: Moderate: 1+ chronic illnesses with change Data: Unique test(s) ordered: 2 Medical Decision Making Level: 3 - Low documented in this encounter [facility] 05-17-2023 Miscellaneous Notes Spoke with pt and assisted to schedule appointment with AG on 05/18/23 at 9am.Ifrah Carmichael LPN Please offer appt for 9am with AG tomorrow. Jenny Hawkins MD Patient calling with c/o external vaginal itching. Requesting RX for Diflucan. States she has tried Monistat cream externally, but it doesn't seem to help. Please file. RM- patient wanting you to know that she notices this happening right before her menses. WALDEMAR Rosa RN documented in this encounter [facility] 04-23-2023 Miscellaneous Notes Patient notified. The following approved medication requests have been transmitted electronically. Requested Prescriptions Signed Prescriptions Disp Refills clotrimazole-betamethasone (LOTRISONE) cream 15 g 0 Sig: Apply 1 application to affected area twice daily for 7 days. Authorizing Provider: NOHELIA TAYLOR Pharmacy Information Pharmacy Address [phone] [place] [address] Left message to call office Please let the pt know that her vaginal cultures are all negative. I will send in some cream for her to use external to see if that will help with the irritation. She can also try the boric acid suppositories or a vaginal pH coal feeder operator. Nohelia Taylor APRN.RIZWAN documented in this encounter [facility] 04-19-2023 Miscellaneous Notes Noted. If pain becomes [...] as we discussed. documented in this encounter [facility] 04-17-2023 History of Presen t illness Narrative Radiology Service Progress Note PATIENT NAME: Indigo Meier DATE OF SERVICE: April 17, 2023 TIME: [...] 2023 12:01 PM documented in this encounter [facility] 04-16-2023 Miscellaneous Notes Last Office Visit: [...] Last Labs: 03/08/2022 documented in this encounter [facility] 04-09-2023 Miscellaneous Notes Contacted pt and she does not need prescription renewed. Ifrah Carmichael LPN Received refill request from pt's pharmacy. [employer] message to pt inquiring if she is having sxs. Will await further response. Ifrah Carmichael LPN' documented in this encounter [facility] 04-04-2023 History of Presen t illness Narrative Radiology Service Progress Note PATIENT NAME: Indigo Meier DATE OF SERVICE: April 04, 2023 TIME: [...] 2023 11:11 AM documented in this encounter [facility] 03-30-2023 Miscellaneous Notes Letter taken to med recs. Pt notified. Fernanda Jameson Ma Letter printed. No diagnosis of concussion by Dr. Sheffield or in ER. I haven't seen her. [...] when completed. Please call patient back at [phone]. Mae Pendleton RN documented in this encounter [facility] 03-20-2023 Miscellaneous Notes Scheduled ER follow [...] by Jennifer and 03/[address] Sheffield for follow up. 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 Patient reports a letter similar to what Maikol wrote on 11/30/2022 if provider agrees. 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 Mae Pendleton RN documented in this encounter [facility] 03-20-2023 History of Presen t illness Narrative Subjective HPI HPI Indigo Meier is a 47 year old female who [...] to ER - PREDNISONE 10 MG TABLET Davide Santiago APRN.RIZWAN documented in this encounter [facility] 03-20-2023 History of Presen t illness [...] OF CARE: Assessment: Indigo Meier presents with diagnosis of neck pain that [...] Planned: 6 Planned Treatment Interventions: Therapeutic exercise (70394), Neuromuscular re-education (02009), Manual therapy (80737), Therapeutic activities (06677), Self-correction management (19204), Gait Training (35177), Patient/Family/Caregiver Education PLAN FOR NEXT VISIT: Assess symptom response to cervical retraction. VNG testing indicated based on concussion hx, dizziness with occulmotor and head thrust testing today. Assess lumbar spine mobility. Patient demonstrates fair understanding of plan of care and treatment. The above goals and plan of care were discussed and agreed upon by patient/family. SUBJECTIVE: Indigo Meier is a 47 year old female seen [...] Pt. did have a f/u with Dr. Sheffield and she has an appointment for an [...] Demonstration TREATMENT: PT Treatment Interventions: Therapeutic Exercise, Self-Intermediate Management Evaluation Therapeutic Exercise: 1: *seated cervical [...] and function . Patient education as noted. Self-Intermediate Management: 1: *postural educatoin 2: *discussed VOR, [...] 10 Total Treatment Time Minutes (timed/untimed): 45 Karnia Rankin PT documented in this encounter [facility] 03-20-2023 History of Presen t illness Narrative Indigo Meier is a 47 year old female who [...] L3 SAB0 IAB0 Ectopic0 Multiple0 Live Births0 Genetic Supervisor History LMP: 02/22/2023 (Exact Date), IUD Age at Menarche: Age at First : Age at Menopause: Genetic Supervisor History Comments: Sexual Activity: Yes; Male Contraception: [...] external genitalia normal, normal Bartholin's glands, urethra, [place]'s glands, physiologic discharge present, normal appearing perineal body and perianal region, 2 small occlusion cyst- pt would like them removed NEURO: alert and oriented x3,exam grossly non-focal EXTREMITIES: normal ASSESSMENT/PLAN: 1. Vulvar cyst - ICD9: 624.8, ICD10: N90.7 (primary diagnosis) - I&D performed 2. Stress incontinence - ICD9: [id number], ICD10: N39.3 - CONSULT TO PHYSICAL THERAPY [...] Level: 3 - Low INFORMED CONSENT Indigo Meier Medical Record: [id number] Procedure:incision and drainage of occlusion cyst x 2 The risks, benefits and anticipated outcomes of the procedure, the risks and benefits of the alternatives to the procedure and the roles and tasks of the personnel to be involved were discussed with the patient and the patient consents to the procedure and agrees to proceed. I verify that I personally obtained Indigo Johnston Bubbabelinda's consent. Nohelia Taylor APRN.CNP March 20, 2023 [...] Care Visit completed when applicable. Nohelia Taylor APRN.NEWSPAPER OR PERIODICAL EDITOR PLAN: After informed consent was obtained, using Betadine for cleansing and 1% LIDOCAINE WITH 1:100,000 EPINEPHRINE BUFFERED for anesthetic, with sterile technique, an incision was made into cyst. Culture was not obtained. Procedure was well tolerated. Return to clinic as needed for pain, increased swelling, or fever. Nohelia Taylor APRN.RIZWAN documented in this encounter [facility] 03-15-2023 Miscellaneous Notes Pt was notified of the results. Pt verbalized understanding. Xochitl Duarte MA No abnormal findings noted on x-ray. Continue supportive therapies as discussed. Yohannes Michael APRN.RIZWAN documented in this encounter [facility] 03-15-2023 History of Presen t illness Narrative [...] Sinus: Maxillary sinus tenderness present. Mouth/Throat: Lips: [place]. Mouth: Mucous membranes are moist. Pharynx: Oropharynx [...] of care. This note was generated using [employer] software. It may contain errors in wording, punctuation, or spelling. Yohannes Michael APRN.RIZWAN documented in this encounter [facility] 03-14-2023 Miscellaneous Notes Patient having external vaginal itching. Has not tried OTC Monistat. Does not get paid until Sunday and would like RX for Diflucan sent in. No need to call patient back. RX pending. Monique Rosa RN documented in this encounter [facility] 03-14-2023 Miscellaneous Notes Patient has been identified [...] patient. Pari Perry documented in this encounter [facility] 03-12-2023 History of Presen t illness Narrative [...] did have CT scan following accident at [facility]. Denies nausea or vomiting with headaches currently. Still mildly foggy at times. No issues with memory. No speech issues. No issues with focal numbness or weakness. Her neck is stiff. No recent neck issues. Reviewed [facility] ER note. Ct of head and c [...] 04/25/2022 [facility] 10 [facility] 04/25/2022 HEMORROIDECTOMY INTERNAL 04/26/2022 [...] WO IVCON - CONSULT TO NEUROLOGY Guillermo Sheffield MD documented in this encounter [facility] 03-05-2023 History of Presen t illness Narrative Chief Complaint Patient presents with: Telemedicine I have communicated my name and active licensure. The patient's identity and physical location were verified at the time of this visit. Either the patient or their legal event marketing representative has been informed of the risks [...] agrees to the visit: Yes Patient Location: [facility] Indigo Meier is a 47 year old female who [...] at the scene. She was evaluated in [place] [facility]. Refers that she had imaging of [...] Jennifer Whitfield APRN.RIZWAN documented in this encounter [facility] 03-01-2023 History of Presen t illness Narrative This note was created using Modabound. Subjective Indigo Meier is a 47 year old female. HPI [...] vomiting or diarrhea. She has been taking [id number] antihistamines and ibuprofen. She has taken her [...] evaluation. JOE Cortes documented in this encounter [facility] 02-08-2023 History of Presen t illness Narrative Indigo Meier is a 47 year old female who [...] L3 SAB0 IAB0 Ectopic0 Multiple0 Live Births0 Genetic Supervisor History LMP: 04/25/2022, IUD Age at Menarche: Age at First : Age at Menopause: Genetic Supervisor History Comments: Sexual Activity: Yes; Male Contraception: [...] external genitalia normal, normal Bartholin's glands, urethra, Orangevale's glands, no vulvar lesions, no cervical lesions, [...] Follow- up as needed. Indigo Candelario APRN.RIZWAN I spent a total of 20 minutes on the date of the service which included preparing to see the patient, [id number] patient care, completing clinical documentation, obtaining and/or reviewing separately obtained history, performing a medically appropriate examination, counseling and educating the patient/family/caregiver, and ordering medications, tests, or procedures. documented in this encounter [facility] 01-29-2023 History of Presen t illness Narrative Pt unable to log in and does not have working camera. Will reschedule as in person OV. documented in this encounter [facility] 01-24-2023 History of Presen t illness Narrative [...] the ER if severe. - 2019 CORONAVIRUS John Zaragoza MD documented in this encounter [facility] 01-10-2023 Miscellaneous Notes Patient asking pcp to [...] it to her. documented in this encounter [facility] 01-09-2023 History of Presen t illness Narrative [employer] [place] Applier offered: Patient declines. Indigo Meier is a 47 year old female who presents for problem visit vaginal discharge and odor. HPI: Yellow discharge and odd odor when patting dry after urinating for past 4 days. 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 She does not know if it is normal healing or an infection. No itching. No recent antibiotic OB History T0 L3 SAB0 IAB0 Ectopic0 Multiple0 Live Births0 Genetic Supervisor History LMP: 04/25/2022, IUD Age at Menarche: Age at First : Age at Menopause: Genetic Supervisor History Comments: Sexual Activity: Yes; Male Contraception: [...] external genitalia normal, normal Bartholin's glands, urethra, Orangevale's glands, no cervical lesions, good vaginal support, [...] results. Follow- up as needed. Indigo Candelario APRN.NEWSPAPER OR PERIODICAL EDITOR Medical Decision Making: Problems: Low: Acute, uncomplicated illness or injury Data: Unique test(s) ordered: 3+ Medical Decision Making Level: 3 - Low documented in this encounter [facility] 01-02-2023 History of Presen t illness Narrative [employer] [place] Applier offered: Patient declines. Indigo Meier presents for removal of a piece of [...] Janay Majano MD documented in this encounter [facility] 12-15-2022 History of Presen t illness Narrative FOLLOW UP VISIT - SKIN LESION NAME: Indigo Meier CLINIC NO.: [id number] DATE OF SERVICE: 12/14/2022 : 1975 REFERRING [...] instructed to follow-up with me as needed. José Kulkarni MD UNIVERSAL PROTOCOL / SAFETY CHECKLIST [...] Bettina Russo RN documented in this encounter [facility] 12-14-2022 Instructions Bettina Russo RN - 12/14/2022 4:29 PM EDT The following instructions are important for you related to your office visit today with the [facility] General Surgeons. Instructions After Skin Excison and [...] you should contact our office immediately @ [phone] and ask to be transferred to the General Surgery department. documented in this encounter [facility] 12-14-2022 Miscellaneous Notes Patient notified of [...] letter from doctor within 48 hours. Can picking machine operator from office. Thank you. Noemy Avina RN documented in this encounter [facility] 12-13-2022 Miscellaneous Notes Patient scheduled with DM. Mango Laurent RN Left message for patient to call [...] past. Please advise documented in this encounter [facility] 12-11-2022 Miscellaneous Notes December 12, 2022 PID: [id number] Indigo Meier [address] [place] [address] Dear Ms. Meier, Your recent breast imaging exam on 12/11/2022 [...] who ordered/prescribed your screening mammogram: Please call [phone] or [phone]: [phone] to schedule an appointment for your additional [...] and reports are kept on file at [facility] as part of your permanent medical record, and are available for your continuing care. Thank you for allowing us to help in meeting your health care needs. Sincerely, Dr. Cornell Interpreting Radiologist [facility] (Additional imaging) documented in this encounter [facility] 12-11-2022 History of Presen t illness Narrative Radiology Service Progress Note PATIENT NAME: Indigo Meier DATE OF SERVICE: December 11, 2022 TIME: [...] PERIPHERAL IV DATA: Not applicable SIGNED BY: Michelle Velez [employer] [facility] December 11, 2022 11:21 AM documented in this encounter [facility] 12-01-2022 History of Presen t illness Narrative POPULATION HEALTH NAVIGATION OUTREACH Action/I [place] Support: Called pt to schedule an appt in Pain Management. Lvm for pt to call [phone] for scheduling. Patient Identified by Name and : NO Outreach Outcome/Action Unable to reach patient: Left message Did you use a PCP flex slot to schedule this appointment? N/A Reason for Outreach Care Gap or Scheduling/Wellness visits Payer: Payor: [facility] MEDICAID / Plan: [facility] / Product Type: Medicaid / Care [...] 2022 10:06 AM documented in this encounter [facility] 11-30-2022 Miscellaneous Notes Taken to med recs Letter printed. Thanks, Maikol Cook PA-C documented in this encounter [facility] 11-16-2022 History of Presen t illness Narrative Episode Visit Count: 6 Therapist That Will Accept/Oversee The Plan Of Care: Fernanda Murphy PT Start of Care Date: 10/17/22 Onset Date: 04/16/22 Plan of Care Certification Date: 11/07/22 Next Certification Due Date: 12/19/22 Patient Identified by Name and Date of : Yes REHABILITATION AND SPORTS THERAPY PHYSICAL THERAPY TREATMENT NOTE ASSESSMENT: Indigo Meier tolerated the session with decreased symptoms. She [...] 34 Total Treatment Time Minutes (timed/untimed): 34 Fernanda Murphy PT documented in this encounter [facility] 11-14-2022 History of Presen t illness Narrative Episode Visit Count: 5 Therapist That Will Accept/Oversee The Plan Of Care: Fernanda Murphy PT Start of Care Date: 10/17/22 Onset Date: 04/16/22 Plan of Care Certification Date: 11/07/22 Next Certification Due Date: 12/19/22 Patient Identified by Name and Date of : Yes REHABILITATION AND SPORTS THERAPY PHYSICAL THERAPY TREATMENT NOTE ASSESSMENT: Indigo Meier tolerated the session with expected muscle soreness. [...] 35 Total Treatment Time Minutes (timed/untimed): 35 Fernanda Murphy PT documented in this encounter [facility] 11-07-2022 History of Presen t illness Narrative Episode Visit Count: 4 Therapist That Will Accept/Oversee The Plan Of Care: Fernanda Murphy PT Start of Care Date: 10/17/22 Onset Date: 04/16/22 Plan of Care Certification Date: 11/07/22 Next Certification Due Date: 12/19/22 Patient Identified by Name and Date of : Yes REHABILITATION AND SPORTS THERAPY PHYSICAL THERAPY PROGRESS REPORT PLAN OF CARE UPDATE: Assessment: Indigo Meier demonstrates moderate improvement in neck and shoulder [...] Patient to be seen for Therapeutic exercise (75987), Neuromuscular re-education (40043), Manual therapy (62598), Self-correction management (92773), Patient/Family/Caregiver Education, Body Mechanics Training PLAN FOR [...] 40 Total Treatment Time Minutes (timed/untimed): 40 Fernanda Murphy PT documented in this encounter [facility] 11-06-2022 History of Presen t illness Narrative [employer] video visit was used for evaluation of this patient. Location of patient: [place] Patient was offered a virtual/telemedicine appointment in [...] First time living alone, Break up with [facility] partner: felt he was too negative. Have [...] Jaguar Cook PA-C documented in this encounter [facility] 10-30-2022 Miscellaneous Notes Patient informed and [...] Let me know documented in this encounter [facility] 10-30-2022 History of Presen t illness Narrative Radiology Service Progress Note PATIENT NAME: Indigo Meier DATE OF SERVICE: October 30, 2022 TIME: 1:12 PM PATIENT IDENTITY VERIFICATION COMPLETED USING TWO [...] IMPLANT DATA REVIEWED: Not Applicable RADIOLOGY DEPARTMENT: General X-ray: Exam(s) Completed: Chest X-Ray PERIPHERAL IV DATA: Not applicable SIGNED BY: RT Sadi(R) October 30, 2022 1:12 PM documented in this encounter [facility] 10-30-2022 History of Presen t illness Narrative Patient presents with: Right Hip - Pain, Established Patient Jonah Ibrahim MD Department of Orthopaedics [facility] [address] [facility] [address] Dept: [phone] Dept October 30, 2022 CHIEF COMPLAINT: Pain [...] nonoperative spine would be appropriate. Ms. Indigo Meier was advised as to contrast therapies and/or to take analgesics/anti-inflammatories as needed and all contraindications were reviewed. OBJECTIVE: Ms. Indigo Meier is a pleasant 46 year old in [...] Jonah Ibrahim MD documented in this encounter [facility] 10-26-2022 History of Presen t illness Narrative Episode Visit Count: 3 Therapist That Will Accept/Oversee The Plan Of Care: Fernanda Murphy PT Start of Care Date: 10/17/22 Onset Date: 04/16/22 Plan of Care Certification Date: 10/17/22 Next Certification Due Date: 11/28/22 Patient Identified by Name and Date of : Yes REHABILITATION AND SPORTS THERAPY PHYSICAL THERAPY TREATMENT NOTE ASSESSMENT: Indigo Meier tolerated the session with no issues. She [...] 30 Total Treatment Time Minutes (timed/untimed): 30 Fernanda Murphy PT documented in this encounter [facility] 10-26-2022 Miscellaneous Notes done New order needs filed please due to current order being future. documented in this encounter [facility] 10-24-2022 History of Presen t illness Narrative Episode Visit Count: 2 Therapist That Will Accept/Oversee The Plan Of Care: Fernanda Murphy PT Start of Care Date: 10/17/22 Onset Date: 04/16/22 Plan of Care Certification Date: 10/17/22 Next Certification Due Date: 11/28/22 Patient Identified by Name and Date of : Yes REHABILITATION AND SPORTS THERAPY PHYSICAL THERAPY TREATMENT NOTE ASSESSMENT: Indigo Meier tolerated the session with no issues. She [...] 24 Total Treatment Time Minutes (timed/untimed): 24 Fernanda Murphy PT documented in this encounter [facility] 10-17-2022 Miscellaneous Notes Detailed message left for pt to schedule appt Images from the original note were not included. Jaguar Cook PA-C P tr Aydee Peña Please schedule in office f/u on RLL pneumonia and right hip pain Thanks, Maikol Cook PA-C documented in this encounter [facility] 10-17-2022 History of Presen t illness Narrative Episode Visit Count: 1 Therapist That Will Accept/Oversee The Plan Of Care: Fernanda Murphy PT Start of Care Date: 10/17/22 Onset Date: 04/16/22 Plan of Care Certification Date: 10/17/22 Next Certification Due Date: 11/28/22 Patient Identified by Name and Date of : Yes REHABILITATION AND SPORTS THERAPY PHYSICAL THERAPY EVALUATION PLAN OF CARE: Assessment: Indigo Meier presents with chief complaint of right cervical [...] Planned: 8 Planned Treatment Interventions: Therapeutic exercise (45225);Neuromuscular re-education (89532);Manual therapy (26815);Self-correction management (17428);Patient/Family/Caregiver Education;Ultrasound (48851) PLAN FOR NEXT VISIT: Will assess right elbow and shoulder for ROm/ strength pain Patient demonstrates good understanding of plan of care and treatment. The above goals and plan of care were discussed and agreed upon by patient/family. 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 Occupation: [employer] Environment Patient Lives With: [...] Treatment Minutes: 10 Manual TherapyTreatment Minutes: 10 Fernanda Murphy PT documented in this encounter [facility] 10-17-2022 History of Past i llness Narrative Problem Noted Date Resolved Date Chronic midline low back pain without sciatica 0 10/17/2022 01/01/2023 Chronic neck pain 10/17/2022 01/01/2023 Lateral epicondylitis, right elbow 10/17/2022 01/01/2023 Acute pain of right shoulder 04/05/202211/2021 HTN (hypertension) 05/29/2012 04/04/2016 documented as of this encounter (statuses as of 01/02/2023) [facility] Past [facility] Narrative* Problem Noted Date Resolved Date Chronic midline low back pain without sciatica 0 10/17/2022 01/01/2023 Chronic neck pain 10/17/2022 01/01/2023 Lateral epicondylitis, right elbow 10/17/2022 01/01/2023 Acute pain of right shoulder 04/05/202211/2021 HTN (hypertension) 05/29/2012 04/04/2016 documented as of this encounter (statuses as of 01/09/2023) [facility] Narrative* Problem Noted Date Resolved Date Chronic midline low back pain without sciatica 0 10/17/2022 01/01/2023 Chronic neck pain 10/17/2022 01/01/2023 Lateral epicondylitis, right elbow 10/17/2022 01/01/2023 Acute pain of right shoulder 04/05/202211/2021 HTN (hypertension) 05/29/2012 04/04/2016 documented as of this encounter (statuses as of 01/11/2023) [facility] Narrative* Problem Noted Date Resolved Date Chronic midline low back pain without sciatica 0 10/17/2022 01/01/2023 Chronic neck pain 10/17/2022 01/01/2023 Lateral epicondylitis, right elbow 10/17/2022 01/01/2023 Acute pain of right shoulder 04/05/202211/2021 HTN (hypertension) 05/29/2012 04/04/2016 documented as of this encounter (statuses as of 01/24/2023) [facility] Narrative* Problem Noted Date Resolved Date Chronic midline low back pain without sciatica 0 10/17/2022 01/01/2023 Chronic neck pain 10/17/2022 01/01/2023 Lateral epicondylitis, right elbow 10/17/2022 01/01/2023 Acute pain of right shoulder 04/05/202211/2021 HTN (hypertension) 05/29/2012 04/04/2016 documented as of this encounter (statuses as of 01/29/2023) [facility] Narrative* Problem Noted Date Resolved Date Chronic midline low back pain without sciatica 0 10/17/2022 01/01/2023 Chronic neck pain 10/17/2022 01/01/2023 Lateral epicondylitis, right elbow 10/17/2022 01/01/2023 Acute pain of right shoulder 04/05/202211/2021 HTN (hypertension) 05/29/2012 04/04/2016 documented as of this encounter (statuses as of 02/08/2023) [facility] Narrative* Problem Noted Date Resolved Date Chronic midline low back pain without sciatica 0 10/17/2022 01/01/2023 Chronic neck pain 10/17/2022 01/01/2023 Lateral epicondylitis, right elbow 10/17/2022 01/01/2023 Acute pain of right shoulder 04/05/202211/2021 HTN (hypertension) 05/29/2012 04/04/2016 documented as of this encounter (statuses as of 03/01/2023) [facility] Narrative* Problem Noted Date Resolved Date Chronic midline low back pain without sciatica 0 10/17/2022 01/01/2023 Chronic neck pain 10/17/2022 01/01/2023 Lateral epicondylitis, right elbow 10/17/2022 01/01/2023 Acute pain of right shoulder 04/05/202211/2021 HTN (hypertension) 05/29/2012 04/04/2016 documented as of this encounter (statuses as of 03/06/2023) [facility] Narrative* Problem Noted Date Resolved Date Chronic midline low back pain without sciatica 0 10/17/2022 01/01/2023 Chronic neck pain 10/17/2022 01/01/2023 Lateral epicondylitis, right elbow 10/17/2022 01/01/2023 Acute pain of right shoulder 04/05/202211/2021 HTN (hypertension) 05/29/2012 04/04/2016 documented as of this encounter (statuses as of 03/13/2023) [facility] Narrative* Problem Noted Date Resolved Date Chronic midline low back pain without sciatica 0 10/17/2022 01/01/2023 Chronic neck pain 10/17/2022 01/01/2023 Lateral epicondylitis, right elbow 10/17/2022 01/01/2023 Acute pain of right shoulder 04/05/202211/2021 HTN (hypertension) 05/29/2012 04/04/2016 documented as of this encounter (statuses as of 03/15/2023) [facility]* Problem Noted Date Resolved Date Chronic midline low back pain without sciatica 0 10/17/2022 01/01/2023 Chronic neck pain 10/17/2022 01/01/2023 Lateral epicondylitis, right elbow 10/17/2022 01/01/2023 Acute pain of right shoulder 04/05/202211/2021 HTN (hypertension) 05/29/2012 04/04/2016 documented as of this encounter (statuses as of 03/15/2023) [facility]* Problem Noted Date Resolved Date Chronic midline low back pain without sciatica 0 10/17/2022 01/01/2023 Chronic neck pain 10/17/2022 01/01/2023 Lateral epicondylitis, right elbow 10/17/2022 01/01/2023 Acute pain of right shoulder 04/05/202211/2021 HTN (hypertension) 05/29/2012 04/04/2016 documented as of this encounter (statuses as of 03/15/2023) [facility]* Problem Noted Date Resolved Date Chronic midline low back pain without sciatica 0 10/17/2022 01/01/2023 Chronic neck pain 10/17/2022 01/01/2023 Lateral epicondylitis, right elbow 10/17/2022 01/01/2023 Acute pain of right shoulder 04/05/202211/2021 HTN (hypertension) 05/29/2012 04/04/2016 documented as of this encounter (statuses as of 03/20/2023) [facility]* Problem Noted Date Resolved Date Chronic midline low back pain without sciatica 0 10/17/2022 01/01/2023 Chronic neck pain 10/17/2022 01/01/2023 Lateral epicondylitis, right elbow 10/17/2022 01/01/2023 Acute pain of right shoulder 04/05/202211/2021 HTN (hypertension) 05/29/2012 04/04/2016 documented as of this encounter (statuses as of 03/20/2023) [facility]* Problem Noted Date Resolved Date Chronic midline low back pain without sciatica 0 10/17/2022 01/01/2023 Chronic neck pain 10/17/2022 01/01/2023 Lateral epicondylitis, right elbow 10/17/2022 01/01/2023 Acute pain of right shoulder 04/05/202211/2021 HTN (hypertension) 05/29/2012 04/04/2016 documented as of this encounter (statuses as of 03/21/2023) [facility]* Problem Noted Date Resolved Date Chronic midline low back pain without sciatica 0 10/17/2022 01/01/2023 Chronic neck pain 10/17/2022 01/01/2023 Lateral epicondylitis, right elbow 10/17/2022 01/01/2023 Acute pain of right shoulder 04/05/202211/2021 HTN (hypertension) 05/29/2012 04/04/2016 documented as of this encounter (statuses as of 03/21/2023) [facility]* Problem Noted Date Diagnosed Date Resolved Date Chronic midline low back mikhail n without sciatica 10/17/2022 01/01/2023 Chronic neck pain 10/17/2022 01/01/2023 Lateral epicondylitis, right elbow 10/17/2022 01/01/2023 Acute pain of right shoulder 04/05/2022 07/03/2022 HTN (hypertension) 05/29/2012 6 documented as of this encounter (statuses as of 04/10/2023) [facility]* Problem Noted Date Diagnosed Date Resolved Date Chronic midline low back mikhail n without sciatica 10/17/2022 01/01/2023 Chronic neck pain 10/17/2022 01/01/2023 Lateral epicondylitis, right elbow 10/17/2022 01/01/2023 Acute pain of right shoulder 04/05/2022 07/03/2022 HTN (hypertension) 05/29/2012 6 documented as of this encounter (statuses as of 04/16/2023) [facility]* Problem Noted Date Diagnosed Date Resolved Date Chronic midline low back mikhail n without sciatica 10/17/2022 01/01/2023 Chronic neck pain 10/17/2022 01/01/2023 Lateral epicondylitis, right elbow 10/17/2022 01/01/2023 Acute pain of right shoulder 04/05/2022 07/03/2022 HTN (hypertension) 05/29/2012 6 documented as of this encounter (statuses as of 04/17/2023) [facility] Problem Noted Date Diagnosed Date Resolved Date Chronic midline low back mikhail n without sciatica 10/17/2022 01/01/2023 Chronic neck pain 10/17/2022 01/01/2023 Lateral epicondylitis, right elbow 10/17/2022 01/01/2023 Acute pain of right shoulder 04/05/2022 07/03/2022 HTN (hypertension) 05/29/2012 6 documented as of this encounter (statuses as of 04/19/2023) [facility] Problem Noted Date Diagnosed Date Resolved Date Chronic midline low back mikhail n without sciatica 10/17/2022 01/01/2023 Chronic neck pain 10/17/2022 01/01/2023 Lateral epicondylitis, right elbow 10/17/2022 01/01/2023 Acute pain of right shoulder 04/05/2022 07/03/2022 HTN (hypertension) 05/29/2012 6 documented as of this encounter (statuses as of 04/23/2023) [facility]* Problem Noted Date Diagnosed Date Resolved Date Chronic midline low back mikhail n without sciatica 10/17/2022 01/01/2023 Chronic neck pain 10/17/2022 01/01/2023 Lateral epicondylitis, right elbow 10/17/2022 01/01/2023 Acute pain of right shoulder 04/05/2022 07/03/2022 HTN (hypertension) 05/29/2012 6 documented as of this encounter (statuses as of 05/17/2023) [facility]* Problem Noted Date Diagnosed Date Resolved Date Chronic midline low back mikhail n without sciatica 10/17/2022 01/01/2023 Chronic neck pain 10/17/2022 01/01/2023 Lateral epicondylitis, right elbow 10/17/2022 01/01/2023 Acute pain of right shoulder 04/05/2022 07/03/2022 HTN (hypertension) 05/29/2012 6 documented as of this encounter (statuses as of 05/18/2023) [facility] Problem Noted Date Diagnosed Date Resolved Date Chronic midline low back mikhail n without sciatica 10/17/2022 01/01/2023 Chronic neck pain 10/17/2022 01/01/2023 Lateral epicondylitis, right elbow 10/17/2022 01/01/2023 Acute pain of right shoulder 04/05/2022 07/03/2022 HTN (hypertension) 05/29/2012 6 documented as of this encounter (statuses as of 05/23/2023) [facility] Problem Noted Date Diagnosed Date Resolved Date Chronic midline low back mikhail n without sciatica 10/17/2022 01/01/2023 Chronic neck pain 10/17/2022 01/01/2023 Lateral epicondylitis, right elbow 10/17/2022 01/01/2023 Acute pain of right shoulder 04/05/2022 07/03/2022 HTN (hypertension) 05/29/2012 6 documented as of this encounter (statuses as of 05/29/2023) [facility] Problem Noted Date Diagnosed Date Resolved Date Chronic midline low back mikhail n without sciatica 10/17/2022 01/01/2023 Chronic neck pain 10/17/2022 01/01/2023 Lateral epicondylitis, right elbow 10/17/2022 01/01/2023 Acute pain of right shoulder 04/05/2022 07/03/2022 HTN (hypertension) 05/29/2012 6 documented as of this encounter (statuses as of 06/19/2023) [facility] Problem Noted Date Diagnosed Date Resolved Date Chronic midline low back mikhail n without sciatica 10/17/2022 01/01/2023 Chronic neck pain 10/17/2022 01/01/2023 Lateral epicondylitis, right elbow 10/17/2022 01/01/2023 Acute pain of right shoulder 04/05/2022 07/03/2022 HTN (hypertension) 05/29/2012 6 documented as of this encounter (statuses as of 07/07/2023) [facility] Problem Noted Date Diagnosed Date Resolved Date Chronic midline low back mikhail n without sciatica 10/17/2022 01/01/2023 Chronic neck pain 10/17/2022 01/01/2023 Lateral epicondylitis, right elbow 10/17/2022 01/01/2023 Acute pain of right shoulder 04/05/2022 07/03/2022 HTN (hypertension) 05/29/2012 6 documented as of this encounter (statuses as of 07/11/2023) [facility] Problem Noted Date Diagnosed Date Resolved Date Chronic midline low back mikhail n without sciatica 10/17/2022 01/01/2023 Chronic neck pain 10/17/2022 01/01/2023 Lateral epicondylitis, right elbow 10/17/2022 01/01/2023 Acute pain of right shoulder 04/05/2022 07/03/2022 HTN (hypertension) 05/29/2012201 6 documented as of this encounter (statuses as of 07/13/2023) [facility] Problem Noted Date Diagnosed Date Resolved Date Chronic midline low back mikhail n without sciatica 10/17/2022 01/01/2023 Chronic neck pain 10/17/2022 01/01/2023 Lateral epicondylitis, right elbow 10/17/2022 01/01/2023 Acute pain of right shoulder 04/05/2022 07/03/2022 HTN (hypertension) 05/29/2012 6 documented as of this encounter (statuses as of 07/19/2023) [facility] History of Past illness Narrative* Problem Noted Date Diagnosed Date Resolved Date Chronic midline low back mikhail n without sciatica 10/17/2022 01/01/2023 Chronic neck pain 10/17/2022 01/01/2023 Lateral epicondylitis, right elbow 10/17/2022 01/01/2023 Acute pain of right shoulder 04/05/2022 07/03/2022 HTN (hypertension) 05/29/2012 6 documented as of this encounter (statuses as of 07/25/2023) [facility] History of Past illness Narrative* Problem Noted Date Diagnosed Date Resolved Date Chronic midline low back mikhail n without sciatica 10/17/2022 01/01/2023 Chronic neck pain 10/17/2022 01/01/2023 Lateral epicondylitis, right elbow 10/17/2022 01/01/2023 Acute pain of right shoulder 04/05/2022 07/03/2022 HTN (hypertension) 05/29/2012 6 documented as of this encounter (statuses as of 07/26/2023) [facility] Narrative* Problem Noted Date Diagnosed Date Resolved Date Chronic midline low back mikhail n without sciatica 10/17/2022 01/01/2023 Chronic neck pain 10/17/2022 01/01/2023 Lateral epicondylitis, right elbow 10/17/2022 01/01/2023 Acute pain of right shoulder 04/05/2022 07/03/2022 HTN (hypertension) 05/29/2012 6 documented as of this encounter (statuses as of 07/27/2023) [facility] Narrative* Problem Noted Date Diagnosed Date Resolved Date Chronic midline low back mikhail n without sciatica 10/17/2022 01/01/2023 Chronic neck pain 10/17/2022 01/01/2023 Lateral epicondylitis, right elbow 10/17/2022 01/01/2023 Acute pain of right shoulder 04/05/2022 07/03/2022 HTN (hypertension) 05/29/2012 6 documented as of this encounter (statuses as of 08/05/2023) [facility] Narrative* Problem Noted Date Diagnosed Date Resolved Date Chronic midline low back mikhail n without sciatica 10/17/2022 01/01/2023 Chronic neck pain 10/17/2022 01/01/2023 Lateral epicondylitis, right elbow 10/17/2022 01/01/2023 Acute pain of right shoulder 04/05/2022 07/03/2022 HTN (hypertension) 05/29/2012 6 documented as of this encounter (statuses as of 08/05/2023) [facility] Narrative* Problem Noted Date Diagnosed Date Resolved Date Chronic midline low back mikhail n without sciatica 10/17/2022 01/01/2023 Chronic neck pain 10/17/2022 01/01/2023 Lateral epicondylitis, right elbow 10/17/2022 01/01/2023 Acute pain of right shoulder 04/05/2022 07/03/2022 HTN (hypertension) 05/29/2012 6 documented as of this encounter (statuses as of 08/05/2023) [facility] Narrative* Problem Noted Date Diagnosed Date Resolved Date Chronic midline low back mikhail n without sciatica 10/17/2022 01/01/2023 Chronic neck pain 10/17/2022 01/01/2023 Lateral epicondylitis, right elbow 10/17/2022 01/01/2023 Acute pain of right shoulder 04/05/2022 07/03/2022 HTN (hypertension) 05/29/2012 6 documented as of this encounter (statuses as of 08/31/2023) [facility] N[facility]ative* Problem Noted Date Diagnosed Date Resolved Date Chronic midline low back mikhail n without sciatica 10/17/2022 01/01/2023 Chronic neck pain 10/17/2022 01/01/2023 Lateral epicondylitis, right elbow 10/17/2022 01/01/2023 Acute pain of right shoulder 04/05/2022 07/03/2022 HTN (hypertension) 05/29/2012 6 documented as of this encounter (statuses as of 09/07/2023) [facility] Narrative* Problem Noted Date Diagnosed Date Resolved Date Chronic midline low back mikhail n without sciatica 10/17/2022 01/01/2023 Chronic neck pain 10/17/2022 01/01/2023 Lateral epicondylitis, right elbow 10/17/2022 01/01/2023 Acute pain of right shoulder 04/05/2022 07/03/2022 HTN (hypertension) 05/29/2012 6 documented as of this encounter (statuses as of 09/09/2023) [facility] Narrative* Problem Noted Date Diagnosed Date Resolved Date Chronic midline low back mikhail n without sciatica 10/17/2022 01/01/2023 Chronic neck pain 10/17/2022 01/01/2023 Lateral epicondylitis, right elbow 10/17/2022 01/01/2023 Acute pain of right shoulder 04/05/2022 07/03/2022 HTN (hypertension) 05/29/2012 6 documented as of this encounter (statuses as of 11/20/2023) [facility] N[facility]* Problem Noted Date Diagnosed Date Resolved Date Chronic midline low back mikhail n without sciatica 10/17/2022 01/01/2023 Chronic neck pain 10/17/2022 01/01/2023 Lateral epicondylitis, right elbow 10/17/2022 01/01/2023 Acute pain of right shoulder 04/05/2022 07/03/2022 HTN (hypertension) 05/29/2012 6 documented as of this encounter (statuses as of 11/22/2023) [facility] N[facility]* Problem Noted Date Diagnosed Date Resolved Date Chronic midline low back mikhail n without sciatica 10/17/2022 01/01/2023 Chronic neck pain 10/17/2022 01/01/2023 Lateral epicondylitis, right elbow 10/17/2022 01/01/2023 Acute pain of right shoulder 04/05/2022 07/03/2022 HTN (hypertension) 05/29/2012 6 documented as of this encounter (statuses as of 11/28/2023) [facility] N[facility]* Problem Noted Date Diagnosed Date Resolved Date Chronic midline low back mikhail n without sciatica 10/17/2022 01/01/2023 Chronic neck pain 10/17/2022 01/01/2023 Lateral epicondylitis, right elbow 10/17/2022 01/01/2023 Acute pain of right shoulder 04/05/2022 07/03/2022 HTN (hypertension) 05/29/2012 6 documented as of this encounter (statuses as of 12/07/2023) [facility] Narrative* Problem Noted Date Diagnosed Date Resolved Date Chronic midline low back mikhail n without sciatica 10/17/2022 01/01/2023 Chronic neck pain 10/17/2022 01/01/2023 Lateral epicondylitis, right elbow 10/17/2022 01/01/2023 Acute pain of right shoulder 04/05/2022 07/03/2022 HTN (hypertension) 05/29/2012 6 documented as of this encounter (statuses as of 12/07/2023) [facility] Narrative* Problem Noted Date Diagnosed Date Resolved Date Chronic midline low back mikhail n without sciatica 10/17/2022 01/01/2023 Chronic neck pain 10/17/2022 01/01/2023 Lateral epicondylitis, right elbow 10/17/2022 01/01/2023 Acute pain of right shoulder 04/05/2022 07/03/2022 HTN (hypertension) 05/29/2012 6 documented as of this encounter (statuses as of 12/11/2023) [facility] Narrative* Problem Noted Date Diagnosed Date Resolved Date Chronic midline low back mikhail n without sciatica 10/17/2022 01/01/2023 Chronic neck pain 10/17/2022 01/01/2023 Lateral epicondylitis, right elbow 10/17/2022 01/01/2023 Acute pain of right shoulder 04/05/2022 07/03/2022 HTN (hypertension) 05/29/2012 6 documented as of this encounter (statuses as of 12/17/2023) [facility] N[facility]* Problem Noted Date Diagnosed Date Resolved Date Chronic midline low back mikhail n without sciatica 10/17/2022 01/01/2023 Chronic neck pain 10/17/2022 01/01/2023 Lateral epicondylitis, right elbow 10/17/2022 01/01/2023 Acute pain of right shoulder 04/05/2022 07/03/2022 HTN (hypertension) 05/29/2012 6 documented as of this encounter (statuses as of 12/17/2023) [facility] N[facility]* Problem Noted Date Diagnosed Date Resolved Date Chronic midline low back mikhail n without sciatica 10/17/2022 01/01/2023 Chronic neck pain 10/17/2022 01/01/2023 Lateral epicondylitis, right elbow 10/17/2022 01/01/2023 Acute pain of right shoulder 04/05/2022 07/03/2022 HTN (hypertension) 05/29/2012 6 documented as of this encounter (statuses as of 12/18/2023) [facility] N[facility]* Problem Noted Date Diagnosed Date Resolved Date Chronic midline low back mikhail n without sciatica 10/17/2022 01/01/2023 Chronic neck pain 10/17/2022 01/01/2023 Lateral epicondylitis, right elbow 10/17/2022 01/01/2023 Acute pain of right shoulder 04/05/2022 07/03/2022 HTN (hypertension) 05/29/2012 6 documented as of this encounter (statuses as of 12/21/2023) [facility] Narrative* Problem Noted Date Diagnosed Date Resolved Date Chronic midline low back mikhail n without sciatica 10/17/2022 01/01/2023 Chronic neck pain 10/17/2022 01/01/2023 Lateral epicondylitis, right elbow 10/17/2022 01/01/2023 Acute pain of right shoulder 04/05/2022 07/03/2022 HTN (hypertension) 05/29/2012 6 documented as of this encounter (statuses as of 12/25/2023) [facility] Narrative* Problem Noted Date Diagnosed Date Resolved Date Chronic midline low back mikhail n without sciatica 10/17/2022 01/01/2023 Chronic neck pain 10/17/2022 01/01/2023 Lateral epicondylitis, right elbow 10/17/2022 01/01/2023 Acute pain of right shoulder 04/05/2022 07/03/2022 HTN (hypertension) 05/29/2012 6 documented as of this encounter (statuses as of 01/07/2024) [facility] Narrative* Problem Noted Date Diagnosed Date Resolved Date Chronic midline low back mikhail n without sciatica 10/17/2022 01/01/2023 Chronic neck pain 10/17/2022 01/01/2023 Lateral epicondylitis, right elbow 10/17/2022 01/01/2023 Acute pain of right shoulder 04/05/2022 07/03/2022 HTN (hypertension) 05/29/2012 6 documented as of this encounter (statuses as of 01/07/2024) [facility] Narrative* Problem Noted Date Diagnosed Date Resolved Date Chronic midline low back mikhail n without sciatica 10/17/2022 01/01/2023 Chronic neck pain 10/17/2022 01/01/2023 Lateral epicondylitis, right elbow 10/17/2022 01/01/2023 Acute pain of right shoulder 04/05/2022 07/03/2022 HTN (hypertension) 05/29/2012 6 documented as of this encounter (statuses as of 01/17/2024) [facility] Narrative* Problem Noted Date Diagnosed Date Resolved Date Chronic midline low back mikhail n without sciatica 10/17/2022 01/01/2023 Chronic neck pain 10/17/2022 01/01/2023 Lateral epicondylitis, right elbow 10/17/2022 01/01/2023 Acute pain of right shoulder 04/05/2022 07/03/2022 HTN (hypertension) 05/29/2012 6 documented as of this encounter (statuses as of 01/04/2024) [facility] Miscellaneous Notes* Telephone Encounter - Indigo Hutchinson Ma - 10/17/2022 12:56 PM EST Patient added to appointment wait list. * Telephone Encounter - Igor Lunsford LPN - 10/17/2022 12:46 PM EST Patient called states is having hip pain and would like to be put on the waiting list, has appointment for 10/30/22 and would like sooner if possible. Thank you. Indigo# [phone] documented in this encounterWhite Hospital01-09-2023 History of Present illness Narrative* Jonah Ibrahim MD - 10/09/2022 9:05 AM EST Patient presents with: Right Hand - New, Pain: CTS Jonah Ibrahim MD Department of Orthopaedics Orthopaedics [address] [facility] [address] Dept: [phone] Dept October 09, 2022 CHIEF COMPLAINT: New [...] FOLLOW UP INSTRUCTIONS: As needed. Ms. Indigo Meier was advised as to contrast therapies and/or to take analgesics/anti-inflammatoriesas needed and all contraindications were reviewed. OBJECTIVE: Ms. Indigo Meier is a pleasant 46 year old in [...] requesting physician via US mail. Johnna Martinez [address] [facility] [address] [address] Nicolette Cook PA-C [address] [facility] [address] Jonah Ibrahim MD documented in this encounterWhite Hospital12-30-2022 Miscellaneous Notes* Telephone Encounter - Lizeth Sanchez RN - 09/29/2022 9:06 AM EST Patient notified and voiced understanding. The following approved medications have been transmitted electronically. Requested Prescriptions Signed Prescriptions Disp Refills fluconazole (DIFLUCAN) 150 mg tablet 1 tablet 0 Sig: Take 1 tablet by mouth one time only for 1 dose. Authorizing Provider: KARINA GOLD Pharmacy Information Pharmacy Address [id number] [id number] [place] [address] Lizeth Sanchez RN * Telephone Encounter - [...] monistat and requesting diflucan documented in this encounterWhite Hospital12-22-2022 History of Present illness Narrative* Jaguar Cook PA-C - 09/21/2022 3:58 PM EST MyChart video visit was used for evaluation of this patient. Location of patient: [place] Patient was offered a virtual/telemedicine appointment in [...] review. Jaguar Cook PA-C documented in this encounterWhite Hospital12-15-2022 Instructions* Patient Instructions* Johnna Martinez PA-C [...] he was the hand [facility] the [facility]. What are some conditions that are [...] release the jimenez. CARPAL TUNNEL SYNDROME THE [place] [address] [email or web address] . . . . . . . . . . DEPARTMENT OF PLASTIC AND RECONSTRUCTIVE SURGERY SECTION OF PLASTIC SURGERY [facility] INDEPENDENCE: [phone] [facility]IN CAMP[facility] . . . . . . . . . Hearing Impaired (TTY) Assistance [facility] 2003 Rev. 01/2004 Kyara JONES M . D. N Bonnie Rodriguez E S documented in this encounterWhite Hospital12-15-2022 History of Present illness Narrative* Johnna Martinez PA-C - 09/14/2022 4:05 PM EST Images from the original note were not included. Subjective HPI HPI Indigo Meier is a 46 year old female who [...] plan. Johnna Martinez PA-C documented in this encounterWhite Hospital12-14-2022 Miscellaneous Notes* Telephone Encounter - Mango Laurent RN - 09/13/2022 10:18 AM EST Requested Prescriptions Pending Prescriptions Disp Refills Lactobacillus acidophilus (FLORAJEN ACIDOPHILUS) 20 billion cell cap 30 capsule 11 Sig: Take 1 capsule by mouth once daily. RX INSTRUCTIONS: Patient aware RX will be sent to pharmacy. No need to notify patient. Mango Laurent RN documented in this encounterWhite Hospital12-09-2022 History of Present illness Narrative* José Kulkarni MD - 09/08/2022 10:00 AM EST FOLLOW UP VISIT - ENDOSCOPY NAME: Indigo Johnston [facility] NO.: [id number] DATE OF SERVICE: September 07, 2022 : [...] to follow-up with me in one month. José Kulkarni MD documented in this encounterWhite Hospital12-07-2022 Miscellaneous Notes* Telephone Encounter - Jaguar Cook PA-C - 09/06/2022 2:16 PM EST See other orders/ TE. Maikol Cook PA-C documented in this encounterWhite Hospital12-07-2022 Miscellaneous Notes* Telephone Encounter - LAZARA [...] by me and Jeimy for these issues. ThanksMaikol PA-C documented in this encounterWhite Hospital11-29-2022 Miscellaneous Notes* Telephone Encounter - Mignon Aragon LPN - 08/29/2022 2:18 PM EST Patient notified. Verbalized understanding. [facility] to [facility]. * Telephone Encounter - Jaguar Cook PA-C - 08/29/2022 12:52 PM EST Schedule appointment or go to [facility]. Push fluids, avoid milk products. Thanks, Maikol Cook PA-C * Telephone Encounter - Denise Lopez - 08/28/2022 4:09 PM EST Patient is still waiting since this morning. Please call her as soon as thony; call [phone]. * Telephone Encounter - Lana Comer RN [...] Please call and advise. documented in this encounterWhite Hospital11-29-2022 Miscellaneous Notes* Telephone Encounter - Jaguar [...] Pendleton RN * Telephone Encounter - Denise Lopez - 08/28/2022 4:11 PM EST Indigo Meier is calling Jaguar Cook PA-C today to request Medication, not on the current list: fluticasone (FLONASE) 50 mcg/actuation nasal spray. Please send to [facility] on file. Patient has been identified by name and birthdate. Person calling: self Call patient at: on cell [phone] (home) [phone] (cell) Was an appointment scheduled: No Closing statement: Results or non-symptom based questions: Thank you for calling [facility], your call will be returned within the next business day. Denise Daley Pss documented in this encounterWhite Hospital11-25-2022 Miscellaneous Notes* Telephone Encounter - Fernanda Jameson Ma - 08/25/2022 4:25 PM EST Took [...] Statesthat she was not able to stay [facility] and wait for the results. She is [...] out MS. Please advise. documented in this encounterWhite Hospital11-23-2022 Miscellaneous Notes* Telephone Encounter - Mimi Moody RN - 08/23/2022 10:05 AM EST Triage protocol advised: ER now. Pt agreeable. Pt requested this nurse call her employer [employer] and speak to Christa and to inform Christa that pt has been advised to go to ER based on protocol and symptoms. This was completed. Will send message to Dr. Sheffield due to Maikol Cook out of office [...] cold symptoms 10. : no Protocols used: [id number] documented in this encounterWhite Hospital11-15-2022 History of Present illness Narrative* Jaguar Cook PA-C - 08/15/2022 4:58 PM EST 46 year old female with c/o right knee pain 08/09/2022 distance visit Jennifer Whitfield NEWSPAPER OR PERIODICAL EDITOR A couple of months ago, she hit [...] Refers that previous problems with the knee. [place] better for some time, but then started [...] comparison. Maikol Cook PA-C documented in this encounterWhite Hospital11-11-2022 History of Present illness Narrative* Dee Dee Nava MD - 08/11/2022 3:29 PM EST DEPARTMENT OF GASTROENTEROLOGY - NEW PATIENT/CONSULT REASON FOR VISIT Indigo Meier is a 46 year old female who is scheduled for New Patient (Nodule on liver) HISTORY OF PRESENT ILLNESS Indigo Meier is a 46 year old female who [...] Date Value 03/08/2022 9 Assessment IMPRESSION Ms. Meier is a 46 year old year old [...] Level: 4 - Moderate documented in this encounterWhite Hospital11-09-2022 History of Present illness Narrative* Jennifer [facility] APRN.NEWSPAPER OR PERIODICAL EDITOR - 08/09/2022 11:55 AM EST Chief Complaint [...] agrees to the visit: Yes Patient Location: [facility] Indigo Meier is a 46 year old female who [...] Refers that previous problems with the knee. [place] better for some time, but then started [...] patient = 11-20 minutes documented in this encounterWhite Hospital11-09-2022 Instructions* Patient Instructions* Karina Gold APRN.CNM [...] for diabetes Get tested for HIV/AIDS Copyright 4427-3384 [facility]. All rights reserved. This information is provided by the [facility] and is not intended to replace the medical advice of your doctor or health care provider. Please consult your health care provider for advice about a specific medical condition. For additional written health information, please contact the [facility] at the [facility] or toll-free extension [phone]. This document was last reviewed on: 2004 [...] eliminate the embarrassing symptoms. documented in this encounterWhite Hospital11-09-2022 History of Present illness Narrative* Karina Gold APRN.CNM - 08/09/2022 9:43 AM EST Indigo Meier is a 46 year old female who [...] L3 SAB0 IAB0 Ectopic0 Multiple0 Live Births0 Genetic Supervisor History LMP: 04/25/2022, IUD Age at Menarche: Age at First : Age at Menopause: Genetic Supervisor History Comments: Sexual Activity: Yes; Male Contraception: [...] external genitalia normal, normal Bartholin's glands, urethra, [place]'s glands, no vulvar lesions, no cervical lesions, [...] plan Karina Gold APRN.CNM documented in this encounterWhite Hospital2022 History of Present illness Narrative* Jaguar Cook PA-C - 08/08/2022 3:20 PM EST MyChart video visit was used for evaluation of this patient. Location of patient: [place] Patient was offered a virtual/telemedicine appointment in lieu of an office visit due to recommendations to reduce patient exposure to COVID-19. Patient is aware of limitations of performing the visit without a face to face visit in the office setting and agrees. 3:22 PM 3:41 PM No show Jaguar Cook PA-C documented in this encounterWhite Hospital11-03-2022 Miscellaneous Notes* Telephone Encounter - Mimi Lopez [...] and advise. Mimi Lopez documented in this encounterWhite Hospital09-21-2022 Miscellaneous Notes* Telephone Encounter - Lana [...] 04/22/2020 16 Please advise. Thank you. Lana Comer, RN documented in this encounterWhite Hospital09-15-2022 Miscellaneous Notes* Telephone Encounter - Mu Samson LPN - 06/15/2022 3:23 PM EDT [...] for pain for up to 7 days. JAN-03/20/22 Labs-03/08/22 NOV-none Please review and advise. Mu Samson LPN * Telephone Encounter - Elisa [...] notify patient. Elisa Trevino documented in this encounterWhite Hospital08-30-2022 History of Present illness Narrative* José Kulkarni MD - 05/30/2022 5:24 PM EDT FOLLOW UP VISIT - ENDOSCOPY NAME: Indigo Johnston [facility] NO.: [id number] DATE OF SERVICE: May 30, 2022 : [...] to follow-up with me in one month. José Kulkarni MD * Igor Lunsford LPN - 05/30/2022 4:34 PM EDT [...] Plan of Care Visit completed when applicable. Igor Lunsford LPN documented in this encounterWhite Hospital08-30-2022 Miscellaneous Notes* Telephone Encounter - Saskia [...] Dr. 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 documented in this encounterWhite Hospital08-11-2022 History of Present illness Narrative* José Kulkarni MD - 05/11/2022 6:25 PM EDT FOLLOW UP VISIT - ENDOSCOPY - VIRTUAL NAME: Indigo Johnston [facility] NO.: [id number] DATE OF SERVICE: 05/09/2022 : 1975 REFERRING [...] She was not able to communicate/connect through [employer]. We were able to do a virtual [...] instructed to follow-up with me as needed. José Kulkarni MD documented in this encounterWhite Hospital08-09-2022 Miscellaneous Notes* Telephone Encounter - Bettina Russo RN - 05/09/2022 5:02 PM EDT Attempted to call patient ([phone]) no answer. Bettina Russo RN documented in this encounterWhite Hospital08-09-2022 Miscellaneous Notes* Telephone Encounter - Gabi [...] you. Betty Crane APRN.RIZWAN documented in this encounterWhite Hospital08-09-2022 History of Present illness Narrative* Betty Crane APRN.CNP - 05/09/2022 11:11 AM EDT Subjective The history is provided by the patient. No chinese language professor was used. HPI Indigo Meier is a 46 year old female who [...] Wt 78.7 kg (173 lb 6.4 oz) [facility]04/25/2022 SpO2 96% BMI 31.51 kg/m Social History [...] have confirmed and edited as necessary, the [facility] Review of Systems Constitutional: Negative for chills, [...] evaluation. Betty Crane APRN.CNP documented in this encounterWhite Hospital08-07-2022 Instructions* Patient Instructions* Betty Crane APRN.CNP [...] pain go to ER. documented in this encounterWhite Hospital08-07-2022 History of Present illness Narrative* eBtty Crane APRN.NEWSPAPER OR PERIODICAL EDITOR - 05/07/2022 11:18 AM EDT Subjective The history is provided by the patient. No chinese language professor was used. HPI Indigo Meier is a 46 year old female who [...] have confirmed and edited as necessary, the [facility] Review of Systems Constitutional: Negative for chills [...] evaluation. Betty Crane APRN.RIZWAN documented in this encounterWhite Hospital08-03-2022 Miscellaneous Notes* Telephone Encounter - Bettina [...] Bettina Russo RN * Telephone Encounter - Igor Lunsford LPN - 05/03/2022 9:[address] Kulkarni: Patient underwent hemorrhoidectomy. Pain is typical during this postoperative process for 1 to 2 weeks. Patient should follow-up with me next week but if she is having considerable pain I can see her tomorrow. Called patient left message to call office back. * Telephone Encounter - Igor Lunsford LPN - 05/02/2022 11:03 AM EDT [...] rectal ointment. Requesting pain medication [facility]uel[facility]. documented in this encounterWhite Hospital07-27-2022 NoteHNO ID: [id number] Author: Nasreen Adam MD Service: Anesthesiology Author Type: Anesthesiologist Type: Anesthesia Procedure Notes Filed: 04/26/2022 10:34 AM Note Text: ANESTHESIOLOGY PROCEDURE NOTE Airway General Information Procedure Start Time/Medication Administration: 04/26/2022 10:20 AM Patient location during procedure: OR Timeout Performed Pre-procedure: timeout performed Consent Obtained: Yes Patient identity confirmed: arm band and patient Staffing VISUAL BASIC .NET DEVELOPER: Jemima Musa APRN.VISUAL BASIC .NET DEVELOPER Performed by: VISUAL BASIC .NET DEVELOPER Indications and Patient Condition Preoxygenated: yes Patient [...] SIGNATURE: Nasreen Adam MD PATIENT NAME: Indigo Meier DATE: April 26, 2022 TIME: 10:32 AM CSN: [id number] Nurse Note* Mu Urban RN - 04/25/2022 10:20 AM EDT Pt received in PACU. Pt moderately drowsy, but arouses easily. Denies pain or nausea. Abd soft and non distended. Mu Urban RN documented in this encounterWhite Hospital07-26-2022 History and physical note * José Kulkarni MD - 04/25/2022 8:30 AM EDT [...] can be found in the attached. SIGNATURE: José Kulkarni MD PATIENT NAME: Indigo Meier DATE: April 25, 2022 TIME: 9:06 AM * José Kulkarni MD - 04/25/2022 8:30 AM EDT Images from the original note were not included. HISTORY AND PHYSICAL Indigo Meier 1975 REFERRING PHYSICIAN: Guillermo Sheffield MD CHIEF COMPLAINT: Consult HPI: The patient [...] today at the request of Dr. Guillermo Sheffield MD for my opinion and advice regarding [...] F), height 160 cm (5' 3 ), hhjasd57.3 kg (174 lb 12.8 oz), last menstrual [...] to perform upper and lower endoscopy in [place]. We discussed the risks and benefits of [...] patient was offered a surgery/procedure at a [facility]. The surgeon/proceduralist and patient have discussed in [...] CPT Code: Examination Under Anesthesia, Hemorrhoidectomy - 37453-166 Anticipated Anesthetic: Choice Patient weight: Blood pressure 126/94, pulse 87, temperature 36.6 C (97.8 F), height 160 cm (5' 3 ), weight 79.3 kg (174 lb 12.8 oz), last menstrual period 10/17/2020, SpO2 96 %. BMI: Body mass indexis 30.96 kg/m . Planned antibiotic: clindamycin 900mg IVPB vibration technician to OR SCDs needed - Yes Cotton Weigher Needed - Yes Diagnoses: (K59.00) Constipation, unspecified constipation type (primary encounter diagnosis) (K64.2) Grade III hemorrhoids (R12) Heartburn My findings have been communicated to Dr. Guillermo Sheffield MD via shared medical record. This note will be forwarded to Dr. Guillermo Sheffield MD. Return to Clinic: The patient is instructed to follow-up with me 1 week post operatively. This note was partially generated using [employer] voice recognition system, and there may be some incorrect words, spellings, and punctuation that were not noted in checking the note before saving. José Kulkarni MD documented in this encounterWhite Hospital07-25-2022 Miscellaneous Notes* Telephone Encounter - Igor Lunsford LPN - 04/24/2022 10:34 AM EDT Patient updated * Telephone Encounter - Lnaa Miner PA-C - 04/24/2022 10:15 AM EDT Rx sent * Telephone Encounter - Igor Lunsford LPN - 04/24/2022 10:06 AM EDT Patient called requesting a new script for [facility] to [facility] in [place], having colonoscopy on 04/26/[address] Kulkarni. Can you please send in a script? Thank you. documented in this encounterWhite Hospital07-15-2022 Instructions* Patient Instructions* Indigo Candelario APRN.CNP - 04/14/2022 9:33 AM EDT If positive [...] avoid scratching at night. documented in this encounterWhite Hospital07-15-2022 History of Present illness Narrative* Indigo Candelario APRN.CNP - 04/14/2022 9:02 AM EDT Indigo Meier is a 46 year old female who [...] external genitalia normal, normal Bartholin's glands, urethra, [place]'s glands, no vulvar lesions, no cervical lesions, [...] which included preparing to see the patient, [id number] patient care, completing clinical documentation, obtaining and/or reviewing separately obtained history, performing a medically appropriate examination, counseling and educating the pat ient/family/caregiver and ordering medications, tests, or procedures. documented in this encounterWhite Hospital07-11-2022 Instructions* Patient Instructions* Crystal Rdz PA-C - 04/10/2022 10:33 AM EDT PATIENT PREOPERATIVE INSTRUCTIONS José Kulkarni MD has scheduled you for your procedure at this surgery center: [facility]: [phone] -- [address] [address]. Please read below carefully for your personalized [...] Procedures: - YOU MUST HAVE A RESPONSIBLE AUTHORIZATION MANAGER TAKE YOU HOME. A SOFT SUGAR CUTTER OR ACCOUNTING TUTOR CANNOT BE MADE A RESPONSIBLE AUTHORIZATION MANAGER. - We recommend that a responsible [...] Advance Directive, please fax a copy to [phone] or email to for it to be [...] day. Crystal Rdz PA-C documented in this encounterWhite Hospital07-11-2022 History and physical note * Crystal Rdz PA-C - 04/10/2022 10:10 AM EDT PREANESTHESIA CONSULT CLINIC TELEHEALTH VISIT Patient has been identified by name and date of : Yes This is a virtual visit using Get Togethert video visit. It require patient-provider interaction for [...] Denies any CP, SOB, fever, chills, n/v/d, STRONG or dizziness. Recommended above procedure and elects [...] or incontinence,, stones or chronic kidney disease MANAGER ARCHITECTURAL: Negative for abnormal vaginal bleeding, abnormal vaginal [...] Assessment: history of heart palpitations, seen by [facility] cardiology 03/2021. Patient ordered stress echo at [...] device. I spent more than 21-40 minutes wuaa-sw-tktd with the patient and over half the time was devoted tocounseling and/or coordination of care. This is a virtual visit. It required patient-provider interaction for the medical decision making as documented above. SIGNATURE: Crystal Rdz PA-C PATIENT NAME: Indigo Meier DATE: April 10, 2022 TIME: 10:43 AM PAGER/CONTACT #: documented in this encounterWhite Hospital07-06-2022 History of Past illness Narrative* Problem Noted Date Resolved Date Acute pain of right shoulder 04/05/202211/2021 HTN (hypertension) 05/29/2012 04/04/2016 documented as of this encounter (statuses as of 08/04/2022) [facility] of Past illness Narrative* Problem Noted Date Resolved Date Acute pain of right shoulder 04/05/202211/2021 HTN (hypertension) 05/29/2012 04/04/2016 documented as of this encounter (statuses as of 08/09/2022) [facility] of Past illness Narrative* Problem Noted Date Resolved Date Acute pain of right shoulder 04/05/202211/2021 HTN (hypertension) 05/29/2012 04/04/2016 documented as of this encounter (statuses as of 08/09/2022) [facility] of Past illness Narrative* Problem Noted Date Resolved Date Acute pain of right shoulder 04/05/202211/2021 HTN (hypertension) 05/29/2012 04/04/2016 documented as of this encounter (statuses as of 08/09/2022) [address] History of Past illness Narrative* Problem Noted Date Resolved Date Acute pain of right shoulder 04/05/202211/2021 HTN (hypertension) 05/29/2012 04/04/2016 documented as of this encounter (statuses as of 08/11/2022) [facility] of Past illness Narrative* Problem Noted Date Resolved Date Acute pain of right shoulder 04/05/202211/2021 HTN (hypertension) 05/29/2012 04/04/2016 documented as of this encounter (statuses as of 08/16/2022) [facility] of Past illness Narrative* Problem Noted Date Resolved Date Acute pain of right shoulder 04/05/202211/2021 HTN (hypertension) 05/29/2012 04/04/2016 documented as of this encounter (statuses as of 08/25/2022) [facility] of Past illness Narrative* Problem Noted Date Resolved Date Acute pain of right shoulder 04/05/202211/2021 HTN (hypertension) 05/29/2012 04/04/2016 documented as of this encounter (statuses as of 08/29/2022) [facility] of Past illness Narrative* Problem Noted Date Resolved Date Acute pain of right shoulder 04/05/202211/2021 HTN (hypertension) 05/29/2012 04/04/2016 documented as of this encounter (statuses as of 08/29/2022) [facility] of Past illness Narrative* Problem Noted Date Resolved Date Acute pain of right shoulder 04/05/202211/2021 HTN (hypertension) 05/29/2012 04/04/2016 documented as of this encounter (statuses as of 08/31/2022) [facility] of Past illness Narrative* Problem Noted Date Resolved Date Acute pain of right shoulder 04/05/202211/2021 HTN (hypertension) 05/29/2012 04/04/2016 documented as of this encounter (statuses as of 09/06/2022) [address]06-[address]22 History of Past illness Narrative* Problem Noted Date Resolved Date Acute pain of right shoulder 04/05/202211/2021 HTN (hypertension) 05/29/2012 04/04/2016 documented as of this encounter (statuses as of 09/08/2022) [address]22 History of Past illness Narrative* Problem Noted Date Resolved Date Acute pain of right shoulder 04/05/202211/2021 HTN (hypertension) 05/29/2012 04/04/2016 documented as of this encounter (statuses as of 09/14/2022) [address]22 History of Past illness Narrative* Problem Noted Date Resolved Date Acute pain of right shoulder 04/05/202211/2021 HTN (hypertension) 05/29/2012 04/04/2016 documented as of this encounter (statuses as of 09/14/2022) [address]22 History of Past illness Narrative* Problem Noted Date Resolved Date Acute pain of right shoulder 04/05/202211/2021 HTN (hypertension) 05/29/2012 04/04/2016 documented as of this encounter (statuses as of 09/22/2022) [facility] Narrative* Problem Noted Date Resolved Date Acute pain of right shoulder 04/05/202211/2021 HTN (hypertension) 05/29/2012 04/04/2016 documented as of this encounter (statuses as of 10/04/2022) [address]22 History of Past illness Narrative* Problem Noted Date Resolved Date Acute pain of right shoulder 04/05/202211/2021 HTN (hypertension) 05/29/2012 04/04/2016 documented as of this encounter (statuses as of 10/17/2022) [address]22 History of Past illness Narrative* Problem Noted Date Resolved Date Acute pain of right shoulder 04/05/202211/2021 HTN (hypertension) 05/29/2012 04/04/2016 documented as of this encounter (statuses as of 10/17/2022) [address]22 History of Past illness Narrative* Problem Noted Date Resolved Date Acute pain of right shoulder 04/05/202211/2021 HTN (hypertension) 05/29/2012 04/04/2016 documented as of this encounter (statuses as of 10/18/2022) [address]22 History of Past illness Narrative* Problem Noted Date Resolved Date Acute pain of right shoulder 04/05/202211/2021 HTN (hypertension) 05/29/2012 04/04/2016 documented as of this encounter (statuses as of 10/23/2022) [address]22 History of Past illness Narrative* Problem Noted Date Resolved Date Acute pain of right shoulder 04/05/202211/2021 HTN (hypertension) 05/29/2012 04/04/2016 documented as of this encounter (statuses as of 10/24/2022) [address]22 History of Past illness Narrative* Problem Noted Date Resolved Date Acute pain of right shoulder 04/05/202211/2021 HTN (hypertension) 05/29/2012 04/04/2016 documented as of this encounter (statuses as of 10/26/2022) [address]22 History of Past illness Narrative* Problem Noted Date Resolved Date Acute pain of right shoulder 04/05/202211/2021 HTN (hypertension) 05/29/2012 04/04/2016 documented as of this encounter (statuses as of 10/26/2022) [address]22 History of Past illness Narrative* Problem Noted Date Resolved Date Acute pain of right shoulder 04/05/202211/2021 HTN (hypertension) 05/29/2012 04/04/2016 documented as of this encounter (statuses as of 10/26/2022) [address]22 History of Past illness Narrative* Problem Noted Date Resolved Date Acute pain of right shoulder 04/05/202211/2021 HTN (hypertension) 05/29/2012 04/04/2016 documented as of this encounter (statuses as of 10/31/2022) [address]22 History of Past illness Narrative* Problem Noted Date Resolved Date Acute pain of right shoulder 04/05/202211/2021 HTN (hypertension) 05/29/2012 04/04/2016 documented as of this encounter (statuses as of 11/07/2022) [address]22 History of Past illness Narrative* Problem Noted Date Resolved Date Acute pain of right shoulder 04/05/202211/2021 HTN (hypertension) 05/29/2012 04/04/2016 documented as of this encounter (statuses as of 11/07/2022) [address]22 History of Past illness Narrative* Problem Noted Date Resolved Date Acute pain of right shoulder 04/05/202211/2021 HTN (hypertension) 05/29/2012 04/04/2016 documented as of this encounter (statuses as of 11/10/2022) [address]22 History of Past illness Narrative* Problem Noted Date Resolved Date Acute pain of right shoulder 04/05/202211/2021 HTN (hypertension) 05/29/2012 04/04/2016 documented as of this encounter (statuses as of 11/14/2022) [address]22 History of Past illness Narrative* Problem Noted Date Resolved Date Acute pain of right shoulder 04/05/202211/2021 HTN (hypertension) 05/29/2012 04/04/2016 documented as of this encounter (statuses as of 11/16/2022) [address]22 History of Past illness Narrative* Problem Noted Date Resolved Date Acute pain of right shoulder 04/05/202211/2021 HTN (hypertension) 05/29/2012 04/04/2016 documented as of this encounter (statuses as of 11/17/2022) [address]22 History of Past illness Narrative* Problem Noted Date Resolved Date Acute pain of right shoulder 04/05/202211/2021 HTN (hypertension) 05/29/2012 04/04/2016 documented as of this encounter (statuses as of 11/20/2022) [address]22 History of Past illness Narrative* Problem Noted Date Resolved Date Acute pain of right shoulder 04/05/20222 HTN (hypertension) 05/29/2012 04/04/2016 documented as of this encounter (statuses as of 11/30/2022) [address]22 History of Past illness Narrative* Problem Noted Date Resolved Date Acute pain of right shoulder 04/05/202211/2021 HTN (hypertension) 05/29/2012 04/04/2016 documented as of this encounter (statuses as of 12/01/2022) [address]22 History of Past illness Narrative* Problem Noted Date Resolved Date Acute pain of right shoulder 04/05/202211/2021 HTN (hypertension) 05/29/2012 04/04/2016 documented as of this encounter (statuses as of 12/01/2022) [address]22 History of Past illness Narrative* Problem Noted Date Resolved Date Acute pain of right shoulder 04/05/202211/2021 HTN (hypertension) 05/29/2012 04/04/2016 documented as of this encounter (statuses as of 12/13/2022) [address]22 History of Past illness Narrative* Problem Noted Date Resolved Date Acute pain of right shoulder 04/05/202211/2021 HTN (hypertension) 05/29/2012 04/04/2016 documented as of this encounter (statuses as of 12/13/2022) [address]22 History of Past illness Narrative* Problem Noted Date Resolved Date Acute pain of right shoulder 04/05/202211/2021 HTN (hypertension) 05/29/2012 04/04/2016 documented as of this encounter (statuses as of 12/14/2022) [address]22 History of Past illness Narrative* Problem Noted Date Resolved Date Acute pain of right shoulder 04/05/202211/2021 HTN (hypertension) 05/29/2012 04/04/2016 documented as of this encounter (statuses as of 12/15/2022) [address]22 History of Past illness Narrative* Problem Noted Date Diagnosed Date Resolved Date Acute pain of right shoulder 04/05/2022 07/03/2022 HTN (hypertension) 05/29/2012 6 documented as of this encounter (statuses as of 08/06/2023) [facility] History of Present illness Narrative* Fernanda Murphy, PT - 04/05/2022 9:42 AM EDT Episode Visit Count: 1 Therapist That Will Oversee The Plan Of Care: Fernanda Murphy PT Start of Care Date: 04/05/22 Onset Date: 03/06/22 Plan of Care Certification Date: 04/05/22 Next Certification Due Date: 06/14/22 Patient Identified by Name and Date of : Yes REHABILITATION AND SPORTS THERAPY PHYSICAL THERAPY EVALUATION PLAN OF CARE: Assessment: Indigo Meier presents with diagnosis of acute right shoulder [...] of Care: created on 04/05/22 through 06/14/22 [place] in home exercise program. Patient will decrease [...] Planned: 8 Planned Treatment Interventions: Therapeutic exercise (91908);Neuromuscular re- education (38842);Manual therapy (43403);Therapeutic activities (31114);Self- correction management (26550);Patient/Family/Caregiver Education;Body Mechanics Training;Ultrasound (78860) PLAN FOR NEXT VISIT: Will upgrade to rep band scapular retraction and alphabet on wall . Patient demonstrates good understanding of plan of care and treatment. The above goals and plan of care were discussed and agreed upon by patient/family. 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 Recreation / Current Exercise: gym 3x/week Intake Information: Prescription present Previous Treatment: Steroids ;Ice ;NSAIDs ;Muscle relaxer Pain: Pain Pain Level: 1 (worst in last week 02/07) Pain Location: Shoulder - Right Description: Aching [...] Special Tests - Shoulder Shoulder Special Tests: Ozzie-Reji Horne-Reji: Right Positive Education: Education Learning Preferences: Demonstration;Explanation;Performance;Printed [...] 25 Total Treatment Time Minutes (timed/untimed): 45 Fernanda Murphy PT documented in this encounterWhite Hospital07-05-2022 Miscellaneous Notes* Telephone Encounter - Mignon [...] you. Mignon Aragon LPN documented in this encounterWhite Hospital06-27-2022 Miscellaneous Notes* Telephone Encounter - Ruben Randolph LPN - 03/27/2022 5:50 PM EDT Please assist pt with scheduling MRI in 6 months. Ruben Randolph LPN * Telephone Encounter - Jaguar Cook PA-C - 03/27/2022 5:01 PM EDT Notified through [employer]. Please schedule 6mo Telephone on 03/27/22 MRI LIVER WO/W IVCON Liver nodule ThanksMaikol PA-C documented in this encounterWhite Hospital06-23-2022 Miscellaneous Notes* Telephone Encounter - Jaguar Cook PA-C - 03/23/2022 12:45 PM EDT Please set up consult with PT to formulate plan. [facility] Get Medical Advice on 03/23/22 CONSULT TO PHYSICAL THERAPY Acute pain of right shoulder (primary encounter diagnosis) ThanksMaikol PA-C documented in this encounterWhite Hospital06-23-2022 History of Present illness Narrative* Fernanda Eli, RT(R) - 03/23/2022 10:40 AM EDT Radiology Service [...] (routine) SIGNATURE: RT Car(R) PATIENT NAME: Indigo Meier DATE: March 23, 2022 TIME: 11:16 AM documented in this [facility]06-20-[facility] Instructions* Patient Instructions* Jaguar Cook PA-C [...] the next few days. documented in this [facility]06-20-20[facility] History of Present illness Narrative* Jaguar [...] is pain in right arm 03/06/2022 Dr. Zaragoza: prednisone taper 40-10 #15- No significant benefit. [...] Patient has full range of motion, negative [place]'s, negative Horne, negative lift off, negative speeds. [...] MRI Jaguar Cook PA-C documented in this encounterWhite Hospital06-09-2022 Miscellaneous Notes* Telephone Encounter - Fernanda Jameson Ma - 03/09/2022 1:46 PM EDT Pt [...] things figured out. 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 documented in this encounterWhite Hospital06-07-2022 History of Present illness Narrative* Jaguar Cook PA-C - 03/07/2022 10:13 AM EDT MyChart video visit was used for evaluation of this patient. Location of patient: [place] Patient was offered a virtual/telemedicine appointment in [...] call Jaguar Cook PA-C documented in this encounterWhite Hospital06-06-2022 History of Present illness Narrative* John Zaragoza MD - 03/06/2022 2:36 PM EDT Patient [...] Hemorrhoids Hyperlipidemia 2012 Hypertension Marijuana use Vertigo MEDICATIONS: ibuprofen (MOTRIN) [...] - CONSULT TO ORTHOPAEDICS if not improving. John Zaragoza MD documented in this encounterWhite Hospital06-01-2022 History of Present illness Narrative* Yohannes Michael APRN.[facility] - 03/01/2022 10:39 AM EDT Subjective HPI [...] Wt 79.2 kg (174 lb 9.6 oz) LMP/ SpO2 98% BMI 31.93 kg/m \ Review [...] care. Patient states will be seen at [facility]. Patient verbalized understand agrees with plan of care. Yohannes Michael APRN.RIZWAN documented in this encounterWhite Hospital05-16-2022 Miscellaneous Notes* Telephone Encounter - Vibha Zaman - 02/13/2022 8:13 AM EDT Called patient to inform that [facility] and [facility] will not proceed with upper and lower scoped with [facility] until such further testing is completed. LV of message and to give me a call directly at [phone] if any questions. Vibha Zaman * Telephone [...] and they are booked out. Patient stated [facility] could do 02/28. Patient stated she might go ahead and do that date with them then will have records faxed over to gain clearance to reschedule. Vibha Zaman * Telephone Encounter - Igor Lunsford LPN - 02/09/2022 12:01 PM EDT Patient called states need to cancel appointment for hemorrhoid surgery on February 22, with Dr Kulkarni, needs to have an Echo done before can have anesthesia. Igor Lunsford LPN documented in this encounterWhite Hospital05-11-2022 Miscellaneous Notes* Telephone Encounter - Ifrah Llanes LPN - 02/08/2022 2:32 PM EDT Called patient and made aware of message from Lo Castellanos CNP. Verbalizes understanding. Ifrah Llanes LPN * Telephone Encounter - Lo Castellanos APRN.CNP - 02/08/2022 1:37 PM EDT No she has to have the echo-stress completed prior to surgery, EKG and CXR is not enough. Can she complete in [place] or [place] to keep her surgery on track that would be better. Please let her know this. * Telephone Encounter - Ifrah Llanes LPN - 02/08/2022 1:16 PM EDT Patient called to get fax number so [facility] can send over tests that was done there November 2021. Ifrah Llanes LPN * Telephone Encounter - Radha Santos LPN - 02/08/2022 1:03 PM EDT Patient reports the earliest she can schedule her echo at [facility] is 02/28. She did schedule if she needs to proceed with this, but would need to reschedule her surgery with [facility] on the . She had an EKG and CXR completed recently at [facility], and states [facility] was going to see if this would be sufficient for pre op? Please advise. Radha Santos LPN documented in this encounterWhite Hospital05-11-2022 Instructions* Patient Instructions* Lo Castellanos APRN.NEWSPAPER OR PERIODICAL EDITOR - 02/08/2022 11:35 AM EDT PATIENT PREOPERATIVE INSTRUCTIONS No ref. provider found has scheduled you for your procedure at this surgery center: [facility]: [phone] -- [address] [facility] [place] [address]. Please read below carefully for your personalized [...] inhalers for breathing, continue using them. - ronnie Baltazarts, and tobacco products are NOT permitted the [...] Procedures: - YOU MUST HAVE A RESPONSIBLE AUTHORIZATION MANAGER TAKE YOU HOME. A SOFT SUGAR CUTTER OR ACCOUNTING TUTOR CANNOT BE MADE A RESPONSIBLE AUTHORIZATION MANAGER. - We recommend that a responsible [...] Advance Directive, please fax a copy to [phone] or email to for it to be [...] day. Lo Castellanos APRN.RIZWAN documented in this encounterWhite Hospital05-11-2022 History and physical note * Lo Castellanos APRN.NEWSPAPER OR PERIODICAL EDITOR - 02/08/2022 11:30 AM EDT HISTORY AND PHYSICAL EXAMINATION SERVICE DATE: 02/08/2022 SERVICE TIME: 11:30 AM PRIMARY CARE PHYSICIAN: Jaguar Cook PA-C REASON FOR VISIT: Indigo Meier is a 46 year old female who [...] this topic. CHIEF COMPLAINT: Pre-op exam HPI: AL is a 46 yo seen for PAC [...] today at the request of Dr. Guillermo Sheffield MD for my opinion and advice regarding [...] fevers. Neurological: No history of TIA's, stroke, DIRECTOR TARGETED MARKETING tumor, impaired sensorium, hemiplegia, paraplegia orquadraplegia. No [...] pain, CHF, congenital heart defect, DVT/PE, recent UT, murmur/valvular heart disease, PVD, open heart surgery [...] > 1 time per night or hematuria. MANAGER ARCHITECTURAL: Negative for abnormal vaginal bleeding, abnormal vaginal [...] or any previous visit (from the past [id number] hour(s)). Assessment Anxiety state Assessment: marijuana daily, [...] Airway History: No history of difficult airway [id number] Score: Age: <65 Sex: Female CHF history: [...] SIGNATURE: Lo Castellanos APRN.CNP PATIENT NAME: Indigo Meier DATE: February 08, 2022 TIME: 11:30 AM PAGER/CONTACT #: documented in this encounterWhite Hospital05-11-2022 Miscellaneous Notes* Telephone Encounter - Jaguar [...] spasm. Jaguar Cook PA-C documented in this encounterWhite Hospital05-10-2022 History of Present illness Narrative* Nohelia Taylor APRN.CNP - 02/07/2022 7:01 AM EDT Indigo is [...] L3 SAB0 IAB0 Ectopic0 Multiple0 Live Births0 Genetic Supervisor History LMP: 10/17/2020, IUD Age at Menarche: Age at First : Age at Menopause: Genetic Supervisor History Comments: Sexual Activity: Yes; Male Contraception: [...] external genitalia normal, normal Bartholin's glands, urethra, [place]'s glands, no vulvar lesions, no cervical lesions, [...] needed Nohelia Taylor APRN.RIZWAN documented in this encounterWhite Hospital05-09-2022 Miscellaneous Notes* Telephone Encounter - Kellee Hawkins MA - 02/06/2022 9:37 AM EDT Patient [...] to the pharmacy. Please call patient at: [phone]. Kellee Hawkins MA Jan: 12/2021 Nov: No appointment scheduled Last refill; [...] to the pharmacy. Please call patient at: [phone]. Nithya Summers Pss documented in this encounterWhite Hospital05-04-2022 Miscellaneous Notes* Telephone Encounter - Yessenia Vickers Ma - 02/01/2022 2:27 PM EDT In other TE message has been routed to Schedulers to contact pt to help assist in scheduling an MRI. Closing this encounter. Yessenia Vickers Ma * Telephone Encounter - Guillermo Sheffield MD - 02/01/2022 12:34 PM EDT Maikol [...] after 1 or leave a voice mail. Lnaa Comer RN documented in this encounterWhite Hospital05-04-2022 Miscellaneous Notes* Telephone Encounter - Yessenia Vickers Ma - 02/01/2022 11:28 AM EDT Can you please call pt and help her get requested imaging setup. Yessenia Vickers Ma * Telephone Encounter - Jaguar Cook PA-C - 02/01/2022 9:43 AM EDT Please advise scheduled MRI w/wo contrast to evaluate liver nodule on US. Result note sent through [facility]. Telephone on 02/01/22 MRI LIVER WO/W IVCON ThanksMaikol PA-C documented in this encounterWhite Hospital05-02-2022 History of Present illness Narrative* Karina Villalba RDMS - 01/30/2022 1:45 PM EDT Radiology Service Progress Note PATIENT NAME: Indigo Meier DATE OF SERVICE: January 30, 2022 TIME: [...] 30, 2022 2:12 PM documented in this encounterWhite Hospital04-29-2022 History of Present illness Narrative* Jaguar Cook PA-C - 01/27/2022 9:40 AM EDT 46 year old female with c/o here for f/u from labs in UC 01/23/22 UC visit for urinary frequency, exam + abdominal [...] surgery x 3 09/27/21 distance visit with scotty Parker CNP Nausea, bloating, some lactose intolerance. [...] up. Jaguar Cook PA-C documented in this encounterWhite Hospital04-26-2022 Miscellaneous Notes* Telephone Encounter - Jasmin Uribe - 01/24/2022 12:11 PM EDT notified pt. 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 * Telephone Encounter - Gillian [...] Maikol. Betty Crane APRN.CNP documented in this encounterWhite Hospital04-26-2022 Miscellaneous Notes* Telephone Encounter - Mimi Moody RN - 01/24/2022 8:08 AM EDT Patient calling about recent lab results. Informed patient that not all lab results have returned and provider will advise once those results return. Patient verbalized understanding. Mimi Moody RN documented in this encounterWhite Hospital04-25-2022 Instructions* Patient Instructions* Betty Crane APRN.CNP [...] pain go to ER. documented in this encounterWhite Hospital04-25-2022 History of Present illness Narrative* Betty Crane APRN.CNP - 01/23/2022 4:14 PM EDT Subjective The history is provided by the patient. No chinese language professor was used. HPI Indigo Meier is a 46 year old female who [...] Wt 77.1 kg (170 lb) LMP 10/17/2020 FuS610% BMI 30.11 kg/m Social History Tobacco Use Smoking status: Never Smoker Smokeless tobacco: Never Used Vaping Use Vaping Use: Never used Substance Use Topics Alcohol use: No Drug use: No Comment: positive drug screen for marijuana - last use 2015 PAST MEDICAL HISTORY Diagnosis Date Anxiety generalized anxiety & panic disorder (diagnosed by PCP) Chronic back pain mild scolosis and sciatica & SI joint locks up; was seeing pain management, now sees PCP GERD (gastroesophageal reflux disease) Hemorrhoids Hyperlipidemia 2011 Hypertension Marijuana use Vertigo I have confirmed and edited as necessary, the [facility] Review of Systems Constitutional: Negative for chills [...] evaluation. Betty Crane APRN.CNP documented in this encounterWhite Hospital03-02-2022 Miscellaneous Notes* Telephone Encounter - Ruben Temple - 11/30/2021 5:32 PM EST 02-21-2022 Colon EGD, 02-22-2022 UEA and hemorrhoidectomy Patrick until I hear otherwise. * Telephone Encounter - Mimi Dre Pss - 11/28/2021 9:58 AM EST Patient returned call to schedule upper and lower procedure please call patient to schedule documented in this encounterWhite Hospital02-04-2021 History of Present illness Narrative* Marilyn Becker Tech (Tech) - 11/04/2020 2:10 PM EST Radiology Service Progress Note PATIENT NAME: Indigo Meier DATE OF SERVICE: November 04, 2020 TIME: 2:04 PM PATIENT IDENTITY VERIFICATION COMPLETED USING TWO [...] IMPLANT DATA REVIEWED: Not Applicable RADIOLOGY DEPARTMENT: General X-ray: Exam(s) Completed: Upper Extremity X- Ray(s): Elbow, right : PERIPHERAL IV DATA: Not applicable SIGNED BY: Robert Somers November 04, 2020 2:04 PM documented in this encounterWhite Hospital08-29-2012 History of Past illness Narrative* Problem Noted Date Resolved Date HTN (hypertension) 05/29/2012 04/04/2016 documented as of this encounter (statuses as of 12/23/2021) [facility] Narrative* Problem Noted Date Resolved Date HTN (hypertension) 05/29/2012 04/04/2016 documented as of this encounter (statuses as of 01/23/2022) [facility] Narrative* Problem Noted Date Resolved Date HTN (hypertension) 05/29/2012 04/04/2016 documented as of this encounter (statuses as of 01/24/2022) [place] [address] History of Past illness Narrative* Problem Noted Date Resolved Date HTN (hypertension) 05/29/2012 04/04/2016 documented as of this encounter (statuses as of 01/24/2022) [address] History of Past illness Narrative* Problem Noted Date Resolved Date HTN (hypertension) 05/29/2012 04/04/2016 documented as of this encounter (statuses as of 01/25/2022) [address] History of Past illness Narrative* Problem Noted Date Resolved Date HTN (hypertension) 05/29/2012 04/04/2016 documented as of this encounter (statuses as of 01/27/2022) [address]2012 History of Past illness Narrative* Problem Noted Date Resolved Date HTN (hypertension) 05/29/2012 04/04/2016 documented as of this encounter (statuses as of 01/31/2022) [address]2012 History of Past illness Narrative* Problem Noted Date Resolved Date HTN (hypertension) 05/29/2012 04/04/2016 documented as of this encounter (statuses as of 02/01/2022) [address]2012 History of Past illness Narrative* Problem Noted Date Resolved Date HTN (hypertension) 05/29/2012 04/04/2016 documented as of this encounter (statuses as of 02/01/2022) [address]2012 History of Past illness Narrative* Problem Noted Date Resolved Date HTN (hypertension) 05/29/2012 04/04/2016 documented as of this encounter (statuses as of 02/06/2022) [address]2012 History of Past illness Narrative* Problem Noted Date Resolved Date HTN (hypertension) 05/29/2012 04/04/2016 documented as of this encounter (statuses as of 02/07/2022) [address]2012 History of Past illness Narrative* Problem Noted Date Resolved Date HTN (hypertension) 05/29/2012 04/04/2016 documented as of this encounter (statuses as of 02/08/2022) [address] History of Past illness Narrative* Problem Noted Date Resolved Date HTN (hypertension) 05/29/2012 04/04/2016 documented as of this encounter (statuses as of 02/08/2022) [address] History of Past illness Narrative* Problem Noted Date Resolved Date HTN (hypertension) 05/29/2012 04/04/2016 documented as of this encounter (statuses as of 02/21/2022) [address] History of Past illness Narrative* Problem Noted Date Resolved Date HTN (hypertension) 05/29/2012 04/04/2016 documented as of this encounter (statuses as of 03/01/2022) [address] History of Past illness Narrative* Problem Noted Date Resolved Date HTN (hypertension) 05/29/2012 04/04/2016 documented as of this encounter (statuses as of 03/06/2022) [address] History of Past illness Narrative* Problem Noted Date Resolved Date HTN (hypertension) 05/29/2012 04/04/2016 documented as of this encounter (statuses as of 03/08/2022) [address] History of Past illness Narrative* Problem Noted Date Resolved Date HTN (hypertension) 05/29/2012 04/04/2016 documented as of this encounter (statuses as of 03/09/2022) [address] History of Past illness Narrative* Problem Noted Date Resolved Date HTN (hypertension) 05/29/2012 04/04/2016 documented as of this encounter (statuses as of 03/20/2022) [address] History of Past illness Narrative* Problem Noted Date Resolved Date HTN (hypertension) 05/29/2012 04/04/2016 documented as of this encounter (statuses as of 03/23/2022) [address]2012 History of Past illness Narrative* Problem Noted Date Resolved Date HTN (hypertension) 05/29/2012 04/04/2016 documented as of this encounter (statuses as of 03/24/2022) [address]2012 History of Past illness Narrative* Problem Noted Date Resolved Date HTN (hypertension) 05/29/2012 04/04/2016 documented as of this encounter (statuses as of 03/28/2022) [address]2012 History of Past illness Narrative* Problem Noted Date Resolved Date HTN (hypertension) 05/29/2012 04/04/2016 documented as of this encounter (statuses as of 04/04/2022) [address]2012 History of Past illness Narrative* Problem Noted Date Resolved Date HTN (hypertension) 05/29/2012 04/04/2016 documented as of this encounter (statuses as of 04/05/2022) [address] History of Past illness Narrative* Problem Noted Date Resolved Date HTN (hypertension) 05/29/2012 04/04/2016 documented as of this encounter (statuses as of 04/08/2022) [address]2012 History of Past illness Narrative* Problem Noted Date Resolved Date HTN (hypertension) 05/29/2012 04/04/2016 documented as of this encounter (statuses as of 04/10/2022) [address]2012 History of Past illness Narrative* Problem Noted Date Resolved Date HTN (hypertension) 05/29/2012 04/04/2016 documented as of this encounter (statuses as of 04/14/2022) [address] History of Past illness Narrative* Problem Noted Date Resolved Date HTN (hypertension) 05/29/2012 04/04/2016 documented as of this encounter (statuses as of 04/24/2022) [address] History of Past illness Narrative* Problem Noted Date Resolved Date HTN (hypertension) 05/29/2012 04/04/2016 documented as of this encounter (statuses as of 04/26/2022) [address] History of Past illness Narrative* Problem Noted Date Resolved Date HTN (hypertension) 05/29/2012 04/04/2016 documented as of this encounter (statuses as of 05/07/2022) [address] History of Past illness Narrative* Problem Noted Date Resolved Date HTN (hypertension) 05/29/2012 04/04/2016 documented as of this encounter (statuses as of 05/09/2022) [address]2012 History of Past illness Narrative* Problem Noted Date Resolved Date HTN (hypertension) 05/29/2012 04/04/2016 documented as of this encounter (statuses as of 05/09/2022) [address]2012 History of Past illness Narrative* Problem Noted Date Resolved Date HTN (hypertension) 05/29/2012 04/04/2016 documented as of this encounter (statuses as of 05/09/2022) [address] History of Past illness Narrative* Problem Noted Date Resolved Date HTN (hypertension) 05/29/2012 04/04/2016 documented as of this encounter (statuses as of 05/11/2022) [address] History of Past illness Narrative* Problem Noted Date Resolved Date HTN (hypertension) 05/29/2012 04/04/2016 documented as of this encounter (statuses as of 05/11/2022) [address]2012 History of Past illness Narrative* Problem Noted Date Resolved Date HTN (hypertension) 05/29/2012 04/04/2016 documented as of this encounter (statuses as of 05/19/2022) [address]2012 History of Past illness Narrative* Problem Noted Date Resolved Date HTN (hypertension) 05/29/2012 04/04/2016 documented as of this encounter (statuses as of 05/24/2022) [address]2012 History of Past illness Narrative* Problem Noted Date Resolved Date HTN (hypertension) 05/29/2012 04/04/2016 documented as of this encounter (statuses as of 05/30/2022) [address] History of Past illness Narrative* Problem Noted Date Resolved Date HTN (hypertension) 05/29/2012 04/04/2016 documented as of this encounter (statuses as of 05/30/2022) [address]2012 History of Past illness Narrative* Problem Noted Date Resolved Date HTN (hypertension) 05/29/2012 04/04/2016 documented as of this encounter (statuses as of 06/06/2022) [address]2012 History of Past illness Narrative* Problem Noted Date Resolved Date HTN (hypertension) 05/29/2012 04/04/2016 documented as of this encounter (statuses as of 06/15/2022) [address]2012 History of Past illness Narrative* Problem Noted Date Resolved Date HTN (hypertension) 05/29/2012 04/04/2016 documented as of this encounter (statuses as of 06/21/2022) [facility] Diagnosis Urinary frequency- Primary Bilirubin in urine Biliuria Abdominal bloating Flatulence, eructation, and gas pain Heartburn Internal hemorrhoid Internal hemorrhoids without mention of complication [facility] Urinary frequency- Primary Essential [...] mention of complication [facility] Diagnosis Elevated liver enzymes Other nonspecific abnormal serum enzyme levels Internal hemorrhoid Internal hemorrhoids without mention of complication [facility] Diagnosis Liver nodule- Primary Other specified disorders of liver Internal hemorrhoid Internal hemorrhoids without mention of complication [facility] Diagnosis SOB (shortness of breath) Shortness of breath Internal hemorrhoid Internal hemorrhoids without mention of complication [facility] Diagnosis Encounter for gynecological examination [...] mention of complication [facility] Diagnosis Pre-operative examination- Primary Preoperative [...] mention of complication [facility] Diagnosis Abdominal pain, acute, right upper quadrant- Primary Abdominal pain, right upper quadrant Internal hemorrhoid Internal hemorrhoids without mention of complication [facility] Diagnosis Acute pain of right shoulder- Primary Internal hemorrhoid Internal hemorrhoids without mention of complication [facility] Diagnosis Fibromyalgia- Primary Mylagia and myositis, unspecified Elevated liver enzymes Other nonspecific abnormal serum enzyme levels Change in stool Nonspecific abnormal finding in stool contents Diarrhea, unspecified type Fatigue, unspecified type Internal hemorrhoid Internal hemorrhoids without mention of complication [facility] Diagnosis Acute pain of right shoulder- Primary Fibromyalgia Mylagia and myositis, unspecified Elevated liver enzymes Other nonspecific abnormal serum enzyme levels Diarrhea, unspecified type Internal hemorrhoid Internal hemorrhoids without mention of complication [facility] Diagnosis Acute pain of right shoulder- Primary Internal hemorrhoid Internal hemorrhoids without mention of complication [facility] Diagnosis Liver nodule Other specified disorders of liver Internal hemorrhoid Internal hemorrhoids without mention of complication [facility] Diagnosis Essential hypertension Unspecified essential hypertension Internal hemorrhoid Internal hemorrhoids without mention of complication [facility] Diagnosis Acute pain of right shoulder Internal hemorrhoid Internal hemorrhoids without mention of complication [facility] Diagnosis Liver nodule Other specified disorders of liver Internal hemorrhoid Internal hemorrhoids without mention of complication [facility] Diagnosis Pre-op evaluation- Primary Preoperative [...] mention of complication [facility] Diagnosis Vaginal itching- Primary Pruritus of genital organs Vaginal discharge Leukorrhea, not specified as infective IUD check up Surveillance of previously prescribed intrauterine contraceptive device Internal hemorrhoid Internal hemorrhoids without mention of complication [facility] Diagnosis Constipation, unspecified constipation type Grade III hemorrhoids Unspecified hemorrhoids with other complication Heartburn [facility] Diagnosis Urinary frequency- Primary Burning with urination Dysuria [facility] Diagnosis Urinary frequency- Primary [facility] Diagnosis Grade III hemorrhoids- Primary Unspecified hemorrhoids with other complication Heartburn Constipation, unspecified constipation type [facility] Diagnosis Acute vaginitis- Primary Vaginitis and vulvovaginitis, unspecified Sensation of pressure in bladder area Other specified disorders of bladder Pelvic pain in female Unspecified symptom associated with female genital organs [facility] Diagnosis Skin lesion- Primary Unspecified disorder of skin and subcutaneous tissue Grade III hemorrhoids Unspecified hemorrhoids with other complication [facility] Diagnosis Pain of sternum Chest pain, unspecified Clavicle pain Disorder of bone and cartilage, unspecified [facility] Diagnosis SOB (shortness of breath) Shortness of breath [facility] Diagnosis NO SHOW- Primary [facility]* Diagnosis Vaginal discharge- Primary Leukorrhea, not specified as infective Diffuse cystic mastopathy of left breast Diffuse cystic mastopathy Pelvic pain in female Unspecified symptom associated with female genital organs [facility] Diagnosis Chronic right shoulder pain- Primary Pain in joint, shoulder region Chronic pain of right knee [facility] Diagnosis Nodule on liver Other specified disorders of liver [facility] Diagnosis Patellofemoral arthralgia of right knee- Primary Unspecified disorder of lower leg joint [facility]* Diagnosis Grade III hemorrhoids- Primary Unspecified hemorrhoids with other complication [facility] Diagnosis Right hand pain- Primary Pain in limb Right wrist pain Pain in joint, forearm [facility] Diagnosis Flu-like symptoms- Primary Other general symptoms Wheezing documented [facility] Diagnosis Neck pain- Primary Cervicalgia Chronic midline low back pain without sciatica Chronic neck pain Cervicalgia Lateral epicondylitis, right elbow [facility] Diagnosis Chronic midline low back pain without sciatica- Primary Chronic neck pain Cervicalgia Lateral epicondylitis, right elbow [facility] Diagnosis Primary osteoarthritis of first carpometacarpal joint of right hand- Primary Primary localized osteoarthrosis, hand [facility] Diagnosis Neck pain- Primary Cervicalgia Chronic midline low back pain without sciatica Lateral epicondylitis, right elbow documented in this encounter [facility]* Diagnosis Hyperglycemia- Primary Other abnormal glucose documented in this encounter [facility] note* Diagnosis Bacterial pneumonia- Primary Bacterial pneumonia, unspecified documented in this encounter [facility] note* Diagnosis Bacterial pneumonia- Primary Bacterial pneumonia, unspecified documented in this encounter [facility] note* Diagnosis Pneumonia of right lower lobe due to infectious organism- Primary Anxiety state Anxiety state, unspecified Perimenopausal Symptomatic menopausal or female climacteric states documented in this encounter [facility] note* Diagnosis Neck pain- Primary Cervicalgia Chronic midline low back pain without sciatica Lateral epicondylitis, right elbow documented in this encounter [facility] note* Diagnosis Neck pain- Primary Cervicalgia Chronic midline low back pain without sciatica Lateral epicondylitis, right elbow documented in this encounter [facility] note* Diagnosis Neck pain- Primary Cervicalgia Chronic midline low back pain without sciatica Lateral epicondylitis, right elbow documented in this encounter [facility] note* Diagnosis Right leg pain- Primary Pain in limb Radiculopathy, lumbar region Thoracic or lumbosacral neuritis or radiculitis, unspecified documented in this encounter [facility] note* Diagnosis Radiculopathy, lumbar region- Primary Thoracic or lumbosacral neuritis or radiculitis, unspecified documented in this encounter [facility] note* Diagnosis Skin tag- Primary Unspecified hypertrophic and atrophic condition of skin documented in this encounter [facility] note* Diagnosis Hymenal remnant- Primary Other specified noninflammatory disorder of vagina documented in this encounter [facility] note* Diagnosis Vaginal discharge- Primary Leukorrhea, not specified as infective Vaginal odor Unspecified symptom associated with female genital organs Hymenal remnant Other specified noninflammatory disorder of vagina documented in this encounter [facility] note* Diagnosis Sore throat- Primary Acute pharyngitis documented in this encounter [facility] note* Diagnosis OPENED IN ERROR- Primary To allow closing an encounter opened in error (used in SmartSet) documented in this encounter [facility] note* Diagnosis Screen for STD (sexually transmitted disease)- Primary Screening examination for venereal disease Vaginal discharge Leukorrhea, not specified as infective documented in this encounter [facility] note* Diagnosis Sore throat- Primary Acute pharyngitis Hypertension, essential Unspecified essential hypertension URI, acute Acute upper respiratory infections of unspecified site [facility]* Diagnosis Low back pain, unspecified back pain laterality, unspecified chronicity, unspecified whether sciatica present- Primary Acute pain of left shoulder Symptoms of upper respiratory infection (URI) documented [facility]* Diagnosis Headache, unspecified headache type- Primary Lumbar pain Lumbago Neck pain Cervicalgia Acute pain of left shoulder Concussion without loss of consciousness, subsequent encounter documented in this encounter [facility]* Diagnosis Acute cough- Primary Sinobronchitis Unspecified sinusitis (chronic) documented in this encounter [facility]* Diagnosis Vulvar cyst- Primary Other specified noninflammatory disorder of vulva and perineum Stress incontinence Female stress incontinence Urge incontinence Pelvic pain in female Unspecified symptom associated with female genital organs documented in this encounter [facility] note* Diagnosis Neck pain- Primary Cervicalgia Low back pain, unspecified back pain laterality, unspecified chronicity, unspecified whether sciatica present documented in this encounter [facility] note* Diagnosis Mild intermittent asthma with acute exacerbation- Primary Unspecified asthma, with exacerbation documented in this encounter [facility]* Diagnosis Essential hypertension Unspecified essential hypertension documented [facility]* Diagnosis Vulvar itching- Primary Pruritus of genital organs documented in this [facility]* Diagnosis Low back pain, unspecified back pain laterality, unspecified chronicity, unspecified whether sciatica present- Primary documented in this [facility]* Diagnosis Essential hypertension- Primary Unspecified essential hypertension documented in this encounter [facility] note* Diagnosis Essential hypertension Unspecified essential hypertension documented in this encounter [facility] note* Diagnosis Acute pain of left shoulder- Primary Urinary frequency Vaginal odor Unspecified symptom associated with female genital organs Screening for STD (sexually transmitted disease) Screening examination for venereal disease documented in this encounter [facility]* Diagnosis Vomiting and diarrhea- Primary Vomiting alone Strain of left shoulder, initial encounter documented in this encounter [facility]* Diagnosis Urinary frequency- Primary Microscopic hematuria Chronic left shoulder pain Pain in joint, shoulder region documented in this encounter [facility]* Diagnosis Headache, unspecified headache type Concussion without loss of consciousness, subsequent encounter [facility]* Diagnosis Encounter for screening mammogram for breast cancer documented [facility] this [facility]* Diagnosis Abnormal mammogram Abnormal mammogram, unspecified documented [facility] this [facility]* Diagnosis SOB (shortness of breath) Shortness of breath documented [facility] this [facility]* Diagnosis BV (bacterial vaginosis)- Primary Vaginitis and vulvovaginitis, unspecified documented [facility] this [facility]* Diagnosis Chronic left shoulder pain Pain in joint, shoulder region documented in this [facility]* Diagnosis Dysuria- Primary Vaginal discharge Leukorrhea, not specified as infective Hypertension, essential Unspecified essential hypertension documented in this encounter [facility]* Diagnosis Acute constipation- Primary Unspecified constipation documented in this encounter [facility]* Diagnosis Vaginal odor- Primary Unspecified symptom associated with female genital organs Vaginal itching Pruritus of genital organs Urinary frequency documented [facility] this [facility]* Diagnosis Chronic left shoulder pain- Primary Pain in joint, shoulder region documented in this encounter [facility]* Diagnosis Essential hypertension Unspecified essential hypertension documented in this [facility]* Diagnosis Encounter for screening mammogram for malignant neoplasm of breast- Primary Other screening mammogram Essential hypertension Unspecified essential hypertension Hyperlipidemia with target LDL less than 130 Other and unspecified hyperlipidemia Prediabetes Other abnormal glucose Gastroesophageal reflux disease without esophagitis Esophageal reflux Fibromyalgia Mylagia and myositis, unspecified Headache, unspecified headache type Screening for hyperlipidemia Screening for lipoid disorders documented [facility] this [facility]* Diagnosis Essential hypertension- Primary Unspecified essential hypertension documented in this encounter [facility]* Diagnosis Acute pain of right knee- Primary Acute pain of right knee documented [facility] this [facility]* Diagnosis Burning with urination- Primary Dysuria Vaginal itching Pruritus of genital organs documented [facility] this [facility]* Diagnosis Gonorrhea- Primary Gonococcal infection (acute) of lower genitourinary tract documented [facility] this [facility]* Diagnosis Gonorrhea- Primary Gonococcal infection (acute) of lower genitourinary tract documented [facility] this [facility]* Diagnosis Vaginal itching- Primary Pruritus of genital organs Encounter for screening examination for sexually transmitted disease documented [facility] this [facility]* Diagnosis Essential hypertension- Primary Unspecified essential hypertension documented in this encounter [facility]* Diagnosis SOB (shortness of breath) Shortness of breath documented in this encounter [facility]* Diagnosis Screening examination for STD (sexually transmitted disease)- Primary Screening examination for venereal disease Vaginal discharge Leukorrhea, not specified as infective Cervical cancer screening Screening for malignant neoplasm of the cervix documented in this encounter [facility] note* Diagnosis Essential hypertension Unspecified essential hypertension documented in this encounter [facility] note* Diagnosis Pre-operative examination- Primary Preoperative examination, unspecified Internal hemorrhoid Internal hemorrhoids without mention of complication Anxiety state Anxiety state, unspecified Essential hypertension Unspecified essential hypertension Hyperlipidemia with target LDL less than 130 Other and unspecified hyperlipidemia Palpitations Gastroesophageal reflux disease, unspecified whether esophagitis present Elevated liver enzymes Other nonspecific abnormal serum enzyme levels Pre-op evaluation- Primary Preoperative examination, unspecified Internal [...] myositis, unspecified Anxiety state Anxiety state, unspecified Irritable bowel syndrome with diarrhea- Primary Irritable bowel syndrome Hepatic lesion Other specified disorders of liver documented in this encounter [facility]* Diagnosis Pre-operative examination- Primary Preoperative examination, unspecified Internal hemorrhoid Internal hemorrhoids without mention of complication Anxiety state Anxiety state, unspecified Essential hypertension Unspecified essential hypertension Hyperlipidemia with target LDL less than 130 Other and unspecified hyperlipidemia Palpitations Gastroesophageal reflux disease, unspecified whether esophagitis present Elevated liver enzymes Other nonspecific abnormal serum enzyme levels Pre-op evaluation- Primary Preoperative examination, unspecified Internal [...] myositis, unspecified Anxiety state Anxiety state, unspecified Screening examination for STD (sexually transmitted disease)- Primary Screening examination for venereal disease Pelvic pressure in female Other specified symptom associated with female genital organs Urinary frequency documented in this encounter [facility] note* Diagnosis Pre-operative examination- Primary Preoperative examination, unspecified Internal hemorrhoid Internal hemorrhoids without mention of complication Anxiety state Anxiety state, unspecified Essential hypertension Unspecified essential hypertension Hyperlipidemia with target LDL less than 130 Other and unspecified hyperlipidemia Palpitations Gastroesophageal reflux disease, unspecified whether esophagitis present Elevated liver enzymes Other nonspecific abnormal serum enzyme levels Pre-op evaluation- Primary Preoperative examination, unspecified Internal [...] myositis, unspecified Anxiety state Anxiety state, unspecified Exposure to HIV- Primary Contact with or exposure to other viral diseases documented in this encounter [facility] note* Diagnosis Pre-operative examination- Primary Preoperative examination, unspecified Internal hemorrhoid Internal hemorrhoids without mention of complication Anxiety state Anxiety state, unspecified Essential hypertension Unspecified essential hypertension Hyperlipidemia with target LDL less than 130 Other and unspecified hyperlipidemia Palpitations Gastroesophageal reflux disease, unspecified whether esophagitis present Elevated liver enzymes Other nonspecific abnormal serum enzyme levels Pre-op evaluation- Primary Preoperative examination, unspecified Internal [...] myositis, unspecified Anxiety state Anxiety state, unspecified Other allergic rhinitis documented in this encounter [facility] note* Diagnosis Pre-operative examination- Primary Preoperative examination, unspecified Internal hemorrhoid Internal hemorrhoids without mention of complication Anxiety state Anxiety state, unspecified Essential hypertension Unspecified essential hypertension Hyperlipidemia with target LDL less than 130 Other and unspecified hyperlipidemia Palpitations Gastroesophageal reflux disease, unspecified whether esophagitis present Elevated liver enzymes Other nonspecific abnormal serum enzyme levels Pre-op evaluation- Primary Preoperative examination, unspecified Internal [...] myositis, unspecified Anxiety state Anxiety state, unspecified Vaginal itching- Primary Pruritus of genital organs documented in this encounter [facility]* Diagnosis Pre-operative examination- Primary Preoperative examination, unspecified Internal hemorrhoid Internal hemorrhoids without mention of complication Anxiety state Anxiety state, unspecified Essential hypertension Unspecified essential hypertension Hyperlipidemia with target LDL less than 130 Other and unspecified hyperlipidemia Palpitations Gastroesophageal reflux disease, unspecified whether esophagitis present Elevated liver enzymes Other nonspecific abnormal serum enzyme levels Pre-op evaluation- Primary Preoperative examination, unspecified Internal [...] myositis, unspecified Anxiety state Anxiety state, unspecified Pain of left eye- Primary Pain in or around eye documented in this encounter [facility] note* Diagnosis Pre-operative examination- Primary Preoperative examination, unspecified Internal hemorrhoid Internal hemorrhoids without mention of complication Anxiety state Anxiety state, unspecified Essential hypertension Unspecified essential hypertension Hyperlipidemia with target LDL less than 130 Other and unspecified hyperlipidemia Palpitations Gastroesophageal reflux disease, unspecified whether esophagitis present Elevated liver enzymes Other nonspecific abnormal serum enzyme levels Pre-op evaluation- Primary Preoperative examination, unspecified Internal [...] myositis, unspecified Anxiety state Anxiety state, unspecified Acute pain of right [facility] Diagnosis Pre-operative examination- Primary Preoperative examination, unspecified Internal hemorrhoid Internal hemorrhoids without mention of complication Anxiety state Anxiety state, unspecified Essential hypertension Unspecified essential hypertension Hyperlipidemia with target LDL less than 130 Other and unspecified hyperlipidemia Palpitations Gastroesophageal reflux disease, unspecified whether esophagitis present Elevated liver enzymes Other nonspecific abnormal serum enzyme levels Pre-op evaluation- Primary Preoperative examination, unspecified Internal [...] myositis, unspecified Anxiety state Anxiety state, unspecified Acute constipation Unspecified constipation documented in this encounter [facility] note* Diagnosis Pre-operative examination- Primary Preoperative examination, unspecified Internal hemorrhoid Internal hemorrhoids without mention of complication Anxiety state Anxiety state, unspecified Essential hypertension Unspecified essential hypertension Hyperlipidemia with target LDL less than 130 Other and unspecified hyperlipidemia Palpitations Gastroesophageal reflux disease, unspecified whether esophagitis present Elevated liver enzymes Other nonspecific abnormal serum enzyme levels Pre-op evaluation- Primary Preoperative examination, unspecified Internal [...] myositis, unspecified Anxiety state Anxiety state, unspecified Acute pain of left shoulder documented in this encounter [facility] note* Diagnosis Pre-operative examination- Primary Preoperative examination, unspecified Internal hemorrhoid Internal hemorrhoids without mention of complication Anxiety state Anxiety state, unspecified Essential hypertension Unspecified essential hypertension Hyperlipidemia with target LDL less than 130 Other and unspecified hyperlipidemia Palpitations Gastroesophageal reflux disease, unspecified whether esophagitis present Elevated liver enzymes Other nonspecific abnormal serum enzyme levels Pre-op evaluation- Primary Preoperative examination, unspecified Internal [...] myositis, unspecified Anxiety state Anxiety state, unspecified Acute cough [facility]* Diagnosis Pre-operative examination- Primary Preoperative examination, unspecified Internal hemorrhoid Internal hemorrhoids without mention of complication Anxiety state Anxiety state, unspecified Essential hypertension Unspecified essential hypertension Hyperlipidemia with target LDL less than 130 Other and unspecified hyperlipidemia Palpitations Gastroesophageal reflux disease, unspecified whether esophagitis present Elevated liver enzymes Other nonspecific abnormal serum enzyme levels Pre-op evaluation- Primary Preoperative examination, unspecified Internal [...] myositis, unspecified Anxiety state Anxiety state, unspecified Bacterial pneumonia Bacterial pneumonia, unspecified documented [facility]* Diagnosis Pre-operative examination- Primary Preoperative examination, unspecified Internal hemorrhoid Internal hemorrhoids without mention of complication Anxiety state Anxiety state, unspecified Essential hypertension Unspecified essential hypertension Hyperlipidemia with target LDL less than 130 Other and unspecified hyperlipidemia Palpitations Gastroesophageal reflux disease, unspecified whether esophagitis present Elevated liver enzymes Other nonspecific abnormal serum enzyme levels Pre-op evaluation- Primary Preoperative examination, unspecified Internal [...] myositis, unspecified Anxiety state Anxiety state, unspecified Chronic pain of right knee documented in this [facility]* Diagnosis Secondary hypertension- Primary Other secondary hypertension, unspecified Dizziness Dizziness and giddiness documented in this [facility]* Diagnosis Elbow pain, right Pain in joint, upper arm Pre-operative examination- Primary Preoperative examination, unspecified Internal hemorrhoid Internal hemorrhoids without mention of complication Anxiety state Anxiety state, unspecified Essential hypertension Unspecified essential hypertension Hyperlipidemia with target LDL less than 130 Other and unspecified hyperlipidemia Palpitations Gastroesophageal reflux disease, unspecified whether esophagitis present Elevated liver enzymes Other nonspecific abnormal serum enzyme levels Pre-op evaluation- Primary Preoperative examination, unspecified Internal [...] myositis, unspecified Anxiety state Anxiety state, unspecified documented in this encounter [facility]* Diagnosis Pre-operative examination- Primary Preoperative examination, unspecified Internal hemorrhoid Internal hemorrhoids without mention of complication Anxiety state Anxiety state, unspecified Essential hypertension Unspecified essential hypertension Hyperlipidemia with target LDL less than 130 Other and unspecified hyperlipidemia Palpitations Gastroesophageal reflux disease, unspecified whether esophagitis present Elevated liver enzymes Other nonspecific abnormal serum enzyme levels Pre-op evaluation- Primary Preoperative examination, unspecified Internal [...] myositis, unspecified Anxiety state Anxiety state, unspecified Vaginal discharge- Primary Leukorrhea, not specified as infective Vaginal bleeding Other specified noninflammatory disorder of vagina Encounter for screening examination for sexually transmitted disease documented in this encounter [facility] note* Diagnosis Pre-operative examination- Primary Preoperative examination, unspecified Internal hemorrhoid Internal hemorrhoids without mention of complication Anxiety state Anxiety state, unspecified Essential hypertension Unspecified essential hypertension Hyperlipidemia with target LDL less than 130 Other and unspecified hyperlipidemia Palpitations Gastroesophageal reflux disease, unspecified whether esophagitis present Elevated liver enzymes Other nonspecific abnormal serum enzyme levels Pre-op evaluation- Primary Preoperative examination, unspecified Internal [...] myositis, unspecified Anxiety state Anxiety state, unspecified Encounter to establish care- Primary Other reasons for seeking consultation documented in this encounter [facility] note* Diagnosis Pre-operative examination- Primary Preoperative examination, unspecified Internal hemorrhoid Internal hemorrhoids without mention of complication Anxiety state Anxiety state, unspecified Essential hypertension Unspecified essential hypertension Hyperlipidemia with target LDL less than 130 Other and unspecified hyperlipidemia Palpitations Gastroesophageal reflux disease, unspecified whether esophagitis present Elevated liver enzymes Other nonspecific abnormal serum enzyme levels Pre-op evaluation- Primary Preoperative examination, unspecified Internal [...] myositis, unspecified Anxiety state Anxiety state, unspecified Mycoplasma infection- Primary Mycoplasma infection in conditions classified elsewhere and of unspecified site documented in this encounter [facility] note* Diagnosis Pre-operative examination- Primary Preoperative examination, unspecified Internal hemorrhoid Internal hemorrhoids without mention of complication Anxiety state Anxiety state, unspecified Essential hypertension Unspecified essential hypertension Hyperlipidemia with target LDL less than 130 Other and unspecified hyperlipidemia Palpitations Gastroesophageal reflux disease, unspecified whether esophagitis present Elevated liver enzymes Other nonspecific abnormal serum enzyme levels Pre-op evaluation- Primary Preoperative examination, unspecified Internal [...] myositis, unspecified Anxiety state Anxiety state, unspecified Skin lesion- Primary Unspecified disorder of skin and subcutaneous tissue documented in this encounter [facility] for referral (narrative)* Diagnostic Procedure Only (Routine) - Authorized Specialty Diagnoses / Procedures Referred By Karen t Referred To Contact US IMAGING Diagnoses Elevated liver enzymes Procedures US ABD RT UPPER QUADRANT US ABDOMINAL REAL TIME W/IMAGE LIMITED Jaguar Cook PA-C [id number] [place] [address] Us Imaging Referral ID Status Reason Start Date Expiration Date Visits Requested Visits Authorized [id number] Authorized Auto-Generat ed Referral 01/27/2022 02/26/2023 1 1 [facility] for referral (narrative)* Diagnostic Procedure Only (Routine) - Closed Specialty Diagnoses / Procedures Referred By Contac t Referred To Contact US IMAGING Diagnoses Elevated liver enzymes Procedures US ABD RT UPPER QUADRANT US ABDOMINAL REAL TIME W/IMAGE LIMITED Jaguar Cook PA-C [id number] [place] [address] Us Imaging Referral ID Status Reason Start Date Expiration Date V isits Requested Visits Authorized [id number] Closed Auto-Generate d Referral 01/27/2022 02/26/2023 1 1 [facility] for referral (narrative)* Diagnostic Procedure Only (Routine) - Pending Review Specialty Diagnoses / Procedures Referred By Contac t Referred To Contact US IMAGING Diagnoses Pelvic pain in female Procedures US FEMALE PELVIS TRANSVAG US TRANSVAGINAL Nohelia Taylor APRN.NEWSPAPER OR PERIODICAL EDITOR [address] [place] [address] Us Imaging Referral ID Status Reason Start Date Expiration Date Visits Requested Visits Authorized [id number] Pending Review Auto-Generat ed Referral 02/07/2022 03/09/2023 1 1 * Diagnostic Procedure Only (Routine) - Pending Review Specialty Diagnoses / Procedures Referred By Contac t Referred To Contact [facility] Diagnoses Encounter for screening mammogram for breast cancer Procedures RONDA SCREENING W CHRIS SCREENING DIGITAL BREAST TOMOSYNTHESIS BI SCREENING MAMMOGRAPHY BI 2-VIEW BREAST INC CAD Nohelia Taylor APRN.NEWSPAPER OR PERIODICAL EDITOR [address] [place] [address] [facility] [address] [place] [address] Referral ID Status Reason Start Date Expiration Date Visits Requested Visits Authorized [id number] Pending Review Auto-Generat ed Referral 02/07/2022 03/09/2023 1 1 [facility] for referral (narrative)* Outpatient Procedure (Routine) - Closed Specialty Diagnoses / Procedures Referred By Karen rodriguez Referred To Contact [facility] Diagnoses Constipation, unspecified constipation type Grade III hemorrhoids Heartburn Procedures EGD DIAGNOSTIC EGD W/O OR W/BRUSH/WASH José Kulkarni MD [address] [place] [address] [address] Referral ID Status Reason Start Date Expiration Date V isits Requested Visits Authorized [id number] Closed Auto-Generate d Referral 10/18/2021 10/18/2022 1 1 * Outpatient Procedure (Routine) - Closed Specialty Diagnoses / Procedures Referred By Karen rodriguez Referred To Contact [facility] Diagnoses Constipation, unspecified constipation type Grade III hemorrhoids Procedures COLONOSCOPY DIAGNOSTIC COLONOSCOP W/ OR W/O BRSH SPEC José Kulkarni MD [address] [place] [address] [address] Referral ID Status Reason Start Date Expiration Date V isits Requested Visits Authorized [id number] Closed Auto-Generate d Referral 10/18/2021 10/18/2022 1 1 [facility] for referral (narrative)* Diagnostic Procedure Only (Routine) - Pending Review Specialty Diagnoses / Procedures Referred By Karen rodriguez Referred To Contact BR IMAGING Diagnoses Diffuse cystic mastopathy of left breast Procedures US BREAST LTD LT US BREAST UNI REAL TIME WITH IMAGE LIMITED Karina Gold APRN.CNM [address] [place] [address] [facility] [address] [place] [address] Referral ID Status Reason Start Date Expiration Date Visits Requested Visits Authorized [id number] Pending Review Auto-Generat ed Referral 08/09/2022 09/08/2023 1 1 * Diagnostic Procedure Only (Routine) - Pending Review Specialty Diagnoses / Procedures Referred By Contac t Referred To Contact BR IMAGING Diagnoses Diffuse cystic mastopathy of left breast Procedures RONDA DIAGNOSTIC BILAT DIAGNOSTIC MAMMOGRAPHY COMPUTER-AIDED DETCJ BI Karina Gold APRN.CNM [address] [place] [address] [facility] Imaging [address] [place] [address] Referral ID Status Reason Start Date Expiration Date Visits Requested Visits Authorized [id number] Pending Review Auto-Generat ed Referral 08/09/2022 09/08/2023 1 1 * Diagnostic Procedure Only (Routine) - Pending Review Specialty Diagnoses / Procedures Referred By Contac t Referred To Contact US IMAGING Diagnoses Diffuse cystic mastopathy of left breast Procedures US FEMALE PELVIS TRANSVAG US TRANSVAGINAL Karina Gold APRN.CNM [address] [place] [address] Us Imaging Referral ID Status Reason Start Date Expiration Date Visits Requested Visits Authorized [id number] Pending Review Auto-Generat ed Referral 08/09/2022 09/08/2023 1 1 [facility] for referral (narrative)* Outpatient Procedure (Routine) - Pending Review Specialty Diagnoses / Procedures Referred By Contac t Referred To Contact [facility] Diagnoses Chronic pain of right knee Procedures US LEG VEIN DVT UNL VAS LAB DUP-SCAN XTR VEINS UNILATERAL/LIMITED STUDY Jennifer Whitfield APRN.NEWSPAPER OR PERIODICAL EDITOR [address] [place] [address] [facility] [address] [place] [address] Referral ID Status Reason Start Date Expiration Date Visits Requested Visits Authorized [id number] Pending Review Auto-Generat ed Referral 08/09/2022 08/09/2023 1 1 * Physical Therapy (Routine) - Pending Review Specialty Diagnoses / Procedures Referred By Contac t Referred To Contact [facility] Diagnoses Chronic right shoulder pain Procedures CONSULT TO PHYSICAL THERAPY PHYSICAL THERAPY EVALUATION HIGH COMPLEX 45 MINS Jennifer Whitfield APRN.NEWSPAPER OR PERIODICAL EDITOR [address] [place] [address] [facility] [place] [address] [place] [address] Referral ID Status Reason Start Date Expiration Date Visits Requested Visits Authorized [id number] Pending Review Auto-Generat ed Referral 08/09/2022 08/09/2023 1 1 * Diagnostic Procedure Only (Routine) - Pending Review Specialty Diagnoses / Procedures Referred By Contac t Referred To Contact XR IMAGING Diagnoses Chronic pain of right knee Procedures XR KNEE GENERAL 4V AP BOTH/PA BOTH/LAT/MERC RIGHT RADIOLOGIC EXAM KNEE COMPLETE 4/MORE VIEWS Jennifer Whitfield APRN.NEWSPAPER OR PERIODICAL EDITOR [address] [place] [address] Xr Imaging Referral ID Status Reason Start Date Expiration Date Visits Requested Visits Authorized [id number] Pending Review Auto-Generat ed Referral 08/09/2022 09/08/2023 1 [facility] Diagnostic Procedure Only (Routine) - Closed Specialty Diagnoses / Procedures Referred By Contac t Referred To Contact XR IMAGING Diagnoses Primary osteoarthritis of first carpometacarpal joint of right hand Procedures XR HAND GENERAL 3V PA/LAT/OBL RIGHT RADEX HAND MINIMUM 3 VIEWS Jonah Ibrahim MD [address] [place] [address] Xr Imaging Referral ID Status Reason Start Date Expiration Date V isits Requested Visits Authorized [id number] Closed Auto-Generate d Referral 10/09/2022 2023 1 1 [facility] for referral (narrative)* Diagnostic Procedure Only (Urgent) - Closed Specialty Diagnoses / Procedures Referred By Contac t Referred To Contact XR IMAGING Diagnoses Acute pain of left shoulder Procedures XR SHOULDER GENERAL 3V OR MORE AP/TRUE AP/OTHER LEFT RADEX SHOULDER COMPLETE MINIMUM 2 VIEWS Jessica Hutchison APRN.NEWSPAPER OR PERIODICAL EDITOR [address] [place] [address] [place] [id number] Referral ID Status Reason Start Date Expiration Date V isits Requested Visits Authorized [id number] Closed Auto-Generate d Referral 07/11/2023 08/09/2024 1 1 [facility] for referral (narrative)* Diagnostic Procedure Only (Routine) - Closed Specialty Diagnoses / Procedures Referred By Contac t Referred To Contact BR IMAGING Diagnoses Encounter for screening mammogram for breast cancer Procedures RONDA SCREENING W CHRIS SCREENING DIGITAL BREAST TOMOSYNTHESIS BI SCREENING MAMMOGRAPHY BI 2-VIEW BREAST INC Nohelia Schneider APRN.NEWSPAPER OR PERIODICAL EDITOR [address] [place] [place] [address] Br Imaging [address] [place] [address] Referral ID Status Reason Start Date Expiration Date V isits Requested Visits Authorized [id number] Closed Auto-Generate d Referral 02/07/2022 03/09/2023 1 1 [facility] for referral (narrative)* Diagnostic Procedure Only (Routine) - Closed Specialty Diagnoses / Procedures Referred By Contac t Referred To Contact BR IMAGING Diagnoses Abnormal mammogram Procedures US BREAST LTD LT US BREAST UNI REAL TIME WITH IMAGE LIMITED Nohelia Taylor APRN.NEWSPAPER OR PERIODICAL EDITOR [address] [place] [address] [facility] [address] [place] [address] Referral ID Status Reason Start Date Expiration Date V isits Requested Visits Authorized [id number] Closed Auto-Generate d Referral 12/11/2022 01/10/2024 1 1 * Diagnostic Procedure Only (Routine) - Closed Specialty Diagnoses / Procedures [facility] Referred To Contact BR IMAGING Diagnoses Abnormal mammogram Procedures US BREAST LTD RT US BREAST UNI REAL TIME WITH IMAGE LIMITED Nohelia Taylor APRN.NEWSPAPER OR PERIODICAL EDITOR [address] [place] [address] [facility] Imaging [address] [place] [address] Referral ID Status Reason Start Date Expiration Date V isits Requested Visits Authorized [id number] Closed Auto-Generate d Referral 12/11/2022 01/10/2024 1 1 [facility] for referral (narrative)* Diagnostic Procedure Only (Urgent) - Closed Specialty Diagnoses / Procedures Ref[facility] Referred To Contact XR IMAGING Diagnoses Acute constipation Procedures XR ABDOMEN 1V SUPINE RADIOLOGIC EXAM ABDOMEN 1 VIEW Jessica Hutchison APRN.NEWSPAPER OR PERIODICAL EDITOR [address] [place] [address] [place] [id number] Referral ID Status Reason Start Date Expiration Date V isits Requested Visits Authorized [id number] Closed Auto-Generate d Referral 12/07/2023 01/05/2025 1 1 [facility] for referral (narrative)* Diagnostic Procedure Only (Routine) - Authorized Specialty Diagnoses / Procedures Referred By Contac t Referred To Contact BR IMAGING Diagnoses Encounter for screening mammogram for malignant neoplasm of breast Procedures RONDA SCREENING W CHRIS SCREENING DIGITAL BREAST TOMOSYNTHESIS BI SCREENING MAMMOGRAPHY BI 2-VIEW BREAST INC CAD Mignon Orozco APRN.CNS [address] [place] [address] [facility] [address] [place] [address] Referral ID Status Reason Start Date Expiration Date Visits Requested Visits Authorized [id number] Authorized Auto-Generat ed Referral 01/07/2024 02/05/2025 1 1 [facility] for referral (narrative)* Diagnostic Procedure Only (Urgent) - Closed Specialty Diagnoses / Procedures Referred By Karen t Referred To Contact XR IMAGING Diagnoses Acute pain of right knee Procedures XR KNEE GENERAL 4V AP BOTH/PA BOTH/LAT/MERC RIGHT RADIOLOGIC EXAM KNEE COMPLETE 4/MORE VIEWS John Zaragoza MD [address] [place] [address] [place] [address] Referral ID Status Reason Start Date Expiration Date V isits Requested Visits Authorized [id number] Closed Auto-Generate d Referral 01/30/2024 02/28/2025 1 1 [facility] for referral (narrative)* Diagnostic Procedure Only (Urgent) - Closed Specialty Diagnoses / Procedures Referred By Contjuanita t Referred To Contact XR IMAGING Diagnoses Acute pain of right knee Procedures XR KNEE GENERAL 4V AP BOTH/PA BOTH/LAT/MERC RIGHT RADIOLOGIC EXAM KNEE COMPLETE 4/MORE VIEWS John Zaragoza MD [address] [place] [address] [place] [address] Referral ID Status Reason Start Date Expiration Date V isits Requested Visits Authorized [id number] Closed Auto-Generate d Referral 01/30/2024 02/28/2025 1 1 [facility] for referral (narrative)* Diagnostic Procedure Only (Urgent) - Closed Specialty Diagnoses / Procedures Referred By Contac t Referred To Contact XR IMAGING Diagnoses Acute constipation Procedures XR ABDOMEN 1V SUPINE RADIOLOGIC EXAM ABDOMEN 1 VIEW Jessica Hutchison APRN.NEWSPAPER OR PERIODICAL EDITOR [address] [place] [address] [place] [address] Referral ID Status Reason Start Date Expiration Date V isits Requested Visits Authorized [id number] Closed Auto-Generate d Referral 12/07/2023 01/05/[address] [facility] for referral (narrative)* Diagnostic Procedure Only (Urgent) - Closed Specialty Diagnoses / Procedures Referred By Contac t Referred To Contact XR IMAGING Diagnoses Acute pain of left shoulder Procedures XR SHOULDER GENERAL 3V OR MORE AP/TRUE AP/OTHER LEFT RADEX SHOULDER COMPLETE MINIMUM 2 VIEWS Jessica Hutchison APRN.NEWSPAPER OR PERIODICAL EDITOR [address] [place] [address] [place] [address] Referral ID Status Reason Start Date Expiration Date V isits Requested Visits Authorized [id number] Closed Auto-Generate d Referral 07/11/2023 08/09/2024 1 1 [facility] for referral (narrative)* Diagnostic Procedure Only (Routine) - Closed Specialty Diagnoses / Procedures Referred By Contac t Referred To Contact XR IMAGING Diagnoses Chronic pain of right knee Procedures XR KNEE GENERAL 4V AP BOTH/PA BOTH/LAT/MERC RIGHT RADIOLOGIC EXAM KNEE COMPLETE 4/MORE VIEWS Jennifer Whitfield APRN.NEWSPAPER OR PERIODICAL EDITOR [address] [place] [address] [place] [address] Referral ID Status Reason Start Date Expiration Date V isits Requested Visits Authorized [id number] Closed Auto-Generate d Referral 08/09/2022 09/08/2023 1 1 [facility] for visit Narrative* Outpatient Procedure (Routine) - Closed Specialty Diagnoses / Procedures Referred By Karen rodriguez Referred To Contact [facility] Diagnoses Constipation, unspecified constipation type Grade III hemorrhoids Heartburn Procedures EGD DIAGNOSTIC EGD W/O OR W/BRUSH/WASH José Kulkarni MD [address] [place] [address] [facility] [address] [place] [address] Referral ID Status Reason Start Date Expiration Date V isits Requested Visits Authorized [id number] Closed Auto-Generate d Referral 10/18/2021 10/18/2022 1 1 [facility] for visit Narrative* Diagnostic Procedure Only (Routine) - Closed Specialty Diagnoses / Procedures Referred By Karen rodriguez Referred To Contact BR IMAGING Diagnoses Encounter for screening mammogram for breast cancer Procedures RONDA SCREENING W CHRIS SCREENING DIGITAL BREAST TOMOSYNTHESIS BI SCREENING MAMMOGRAPHY BI 2-VIEW BREAST INC Nohelia Schneider, ROSARIO.NEWSPAPER OR PERIODICAL EDITOR [address] [place] [id number] [facility] [address] [place] [address] Referral ID Status Reason Start Date Expiration Date V isits Requested Visits Authorized [id number] Closed Auto-Generate d Referral 02/07/2022 03/09/2023 1 1 [facility] for visit Narrative* Diagnostic Procedure Only (Urgent) - Closed Specialty Diagnoses / Procedures Referred By Karen rodriguez Referred To Contact XR IMAGING Diagnoses Acute pain of right knee Procedures XR KNEE GENERAL 4V AP BOTH/PA BOTH/LAT/MERC RIGHT RADIOLOGIC EXAM KNEE COMPLETE 4/MORE VIEWS John Zaragoza MD [address] [place] [address] [place] [address] Referral ID Status Reason Start Date Expiration Date V isits Requested Visits Authorized [id number] Closed Auto-Generate d Referral 01/30/2024 02/28/2025 1 1 [facility] for visit Narrative* Diagnostic Procedure Only (Urgent) - Closed Specialty Diagnoses / Procedures Referred By Karen rodriguez Referred To Contact XR IMAGING Diagnoses Acute constipation Procedures XR ABDOMEN 1V SUPINE RADIOLOGIC EXAM ABDOMEN 1 VIEW Jessica Hutchison, GAME PROGRAMMER.NEWSPAPER OR PERIODICAL EDITOR [address] [place] [address] [place] [address] Referral ID Status Reason Start Date Expiration Date V isits Requested Visits Authorized [id number] Closed Auto-Generate d Referral 12/07/2023 01/05/2025 1 1 [facility] for visit Narrative* Diagnostic Procedure Only (Urgent) - Closed Specialty Diagnoses / Procedures Referred By Contac t Referred To Contact XR IMAGING Diagnoses Acute pain of left shoulder Procedures XR SHOULDER GENERAL 3V OR MORE AP/TRUE AP/OTHER LEFT RADEX SHOULDER COMPLETE MINIMUM 2 VIEWS Jessica Hutchison, GAME PROGRAMMER.NEWSPAPER OR PERIODICAL EDITOR [address] [place] [address] [place] [address] Referral ID Status Reason Start Date Expiration Date V isits Requested Visits Authorized [id number] Closed Auto-Generate d Referral 07/11/2023 08/09/2024 1 1 [facility] for visit Narrative* Diagnostic Procedure Only (Urgent) - Closed Specialty Diagnoses / Procedures Referred By Contac t Referred To Contact XR IMAGING Diagnoses Acute pain of right knee Procedures XR KNEE GENERAL 4V AP BOTH/PA BOTH/LAT/MERC RIGHT RADIOLOGIC EXAM KNEE COMPLETE 4/MORE VIEWS Davide Santiago GAME PROGRAMMER.NEWSPAPER OR PERIODICAL EDITOR [address] [place] [address] [place] [address] Referral ID Status Reason Start Date Expiration Date V isits Requested Visits Authorized [id number] Closed Auto-Generate d Referral 06/25/2023 07/24/2024 1 1 [facility] for visit Narrative* Diagnostic Procedure Only (Routine) - Closed Specialty Diagnoses / Procedures Referred By Contac t Referred To Contact XR IMAGING Diagnoses Lumbar pain Procedures XR LUMBAR GENERAL 3V AP/LAT/L5-S1 RADEX SPINE LUMBOSACRAL 2/3 VIEWS Guillermo Sheffield MD [address] [place] [address] [place] [address] Referral ID Status Reason Start Date Expiration Date V isits Requested Visits Authorized [id number] Closed Auto-Generate d Referral 03/12/2023 04/10/2024 [facility] Procedure Only (Routine) - Closed Specialty Diagnoses / Procedures Referred By Karen t Referred To Contact XR IMAGING Diagnoses Chronic pain of right knee Procedures XR KNEE GENERAL 4V AP BOTH/PA BOTH/LAT/MERC RIGHT RADIOLOGIC EXAM KNEE COMPLETE 4/MORE VIEWS Jennifer Whitfield, GAME PROGRAMMER.NEWSPAPER OR PERIODICAL EDITOR [address] [place] [address] [place] [address] Referral ID Status Reason Start Date Expiration Date V isits Requested Visits Authorized [id number] Closed Auto-Generate d Referral 08/09/2022 09/08/2023 1 1 [facility] Summary Purpose Family History No Family History Records FoundNo Family History Records FoundNo Family History Records FoundNo Family History Records FoundNo Family History Records Found Advance Directives Documents on File Type Date Recorded Patient Inside Wirer Expl anation Advance Directive(s) 11/09/2020 11:18 AM Advance Directive(s) 06/28/2020 12:46 PM Advance Directive(s) 11/22/2017 8:54 AM Documents on File Type Date Recorded Patient Inside Wirer Expl anation Advance Directive(s) 01/26/2022 1:39 PM Advance Directive(s) 11/09/2020 11:18 AM Advance Directive(s) 06/28/2020 12:46 PM Advance Directive(s) 11/22/2017 8:54 AM Documents on File Type Date Recorded Patient Inside Wirer Expl anation Advance Directive(s) 01/26/2022 1:39 PM Advance Directive(s) 11/09/2020 11:18 AM Advance Directive(s) 06/28/2020 12:46 PM Advance Directive(s) 11/22/2017 8:54 AM Documents on File Type Date Recorded Patient Inside Wirer Expl anation Advance Directive(s) 04/13/2022 9:39 AM Advance Directive(s) 01/26/2022 1:39 PM Advance Directive(s) 11/09/2020 11:18 AM Advance Directive(s) 06/28/2020 12:46 PM Advance Directive(s) 11/22/2017 8:54 AM Documents on File Type Date Recorded Patient Inside Wirer Expl anation Advance Directive(s) 04/13/2022 9:39 AM Advance Directive(s) 01/26/2022 1:39 PM Advance Directive(s) 11/09/2020 11:18 AM Advance Directive(s) 06/28/2020 12:46 PM Advance Directive(s) 11/22/2017 8:54 AM Reason for Referral Specialty Diagnoses / Procedures Referred By Contac t Referred To Contact MR IMAGING Diagnoses Liver nodule Procedures MRI LIVER WO/W IVCON MRI ABDOMEN W/O & W/CONTRAST MATERIAL Jaguar Cook PA-C [address] [place] [address] Mr Imaging Referral ID Status Reason Start Date Expiration Date Visits Requested Visits Authorized [id number] Pending Review Auto-Generat ed Referral 02/01/2022 03/03/2023 1 1 Specialty Diagnoses / Procedures Referred By Contac t Referred To Contact Diagnoses SOB (shortness of breath) Jaguar Cook PA-C [address] [place] [address] Referral ID Status Reason Start Date Expiration Date Visits Re quested Visits Authorized [id number] Closed 1 1 Specialty Diagnoses / Procedures Referred By Contac t Referred To Contact Orthopedics Diagnoses Acute pain of right shoulder Procedures CONSULT TO ORTHOPAEDICS OFFICE/OUTPATIENT NEW HIGH MDM 60-74 MINUTES John Zaragoza MD [address] [place] [address] Referral ID Status Reason Start Date Expiration Date Visits Requested Visits Authorized [id number] Authorized PCP Requested Referral 03/06/2022 03/06/2023 1 1 Specialty Diagnoses / Procedures Referred By Contac t Referred To Contact [facility] Diagnoses Acute pain of right shoulder Procedures CONSULT TO PHYSICAL THERAPY PHYSICAL THERAPY EVALUATION HIGH COMPLEX 45 MINS Jaguar Cook PA-C [address] [place] [address] [facility] [place] [address] [place] [address] Referral ID Status Reason Start Date Expiration Date Visits Requested Visits Authorized [id number] Pending Review Auto-Generat ed Referral 03/23/2022 03/23/2023 1 1 Specialty Diagnoses / Procedures Referred By Contac t Referred To Contact MR IMAGING Diagnoses Liver nodule K76.89 (ICD-10-CM) - Liver nodule Procedures MRI LIVER WO/W IVCON MRI ABDOMEN W/O & W/CONTRAST MATERIAL MRI LIVER WO/W IVCON Jaguar Cook PA-C [address] [place] [address] Mr Imaging Referral ID Status Reason Start Date Expiration Date V isits Requested Visits Authorized [id number] Closed Auto-Generate d Referral 03/01/2022 04/30/2022 1 1 Specialty Diagnoses / Procedures Referred By Contac t Referred To Contact [facility] Diagnoses Acute pain of right shoulder Procedures PT REHAB FOLLOW UP ORDER THERAPEUTIC EXERCISES RE, EA 15 MIN. Pt [facility] [address] [place] [address] [facility] [address] [address] Referral ID Status Reason Start Date Expiration Date Visits Requested Visits Authorized [id number] Pending Review PCP Requested Referral Auto-Generate d Referral 04/05/2022 07/04/2022 1 1 Referral ID Status Reason Start Date Expiration Date Visits Requested Visits Authorized [id number] Pending Review Auto-Generat ed Referral 03/27/2022 04/26/2023 1 1 Referral ID Status Reason Start Date Expiration Date Visits Re quested Visits Authorized [id number] Closed 1 1 Specialty Diagnoses / Procedures Referred By Contac t Referred To Contact [facility] Diagnoses Patellofemoral arthralgia of right knee Procedures CONSULT TO PHYSICAL THERAPY PHYSICAL THERAPY EVALUATION HIGH COMPLEX 45 MINS Jaguar Cook PA-C [address] [place] [address] [facility] [address] [address] Referral ID Status Reason Start Date Expiration Date Visits Requested Visits Authorized [id number] Pending Review Auto-Generat ed Referral 2 08/15/2023 1 1 Specialty Diagnoses / Procedures Referred By Contac t Referred To Contact Orthopedics Diagnoses Right hand pain Right wrist pain Procedures CONSULT TO ORTHOPAEDICS OFFICE/OUTPATIENT [facility] 60-74 MINUTES Johnna Martinez PA-C [address] [place] [address] Referral ID Status Reason Start Date Expiration Date Visits Requested Visits Authorized [id number] Authorized PCP Requested Referral 09/14/2023 1 1 Specialty Diagnoses / Procedures Referred By Contac t Referred To Contact [facility] Diagnoses Chronic midline low back pain without sciatica Chronic neck pain Lateral epicondylitis, right elbow Neck pain Procedures PT REHAB FOLLOW UP ORDER THERAPEUTIC EXERCISES RE, EA 15 MIN. Pt [facility] [address] [place] [address] [facility] [address] [address] Referral ID Status Reason Start Date Expiration Date Visits Requested Visits Authorized [id number] Pending Review PCP Requested Referral Auto-Generate d Referral 10/17/2022 01/15/2023 1 1 Specialty Diagnoses / Procedures Referred By Contac t Referred To Contact [facility] Diagnoses Chronic midline low back pain without sciatica Chronic neck pain Lateral epicondylitis, right elbow Procedures CONSULT TO PHYSICAL THERAPY PHYSICAL THERAPY EVALUATION HIGH COMPLEX 45 MINS Jaguar Cook PA-C [address] [place] [address] [facility] [address] [address] Referral ID Status Reason Start Date Expiration Date Visits Requested Visits Authorized [id number] Authorized Auto-Generat ed Referral 09/05/2022 09/05/2023 1 1 Specialty Diagnoses / Procedures Referred By Contac t Referred To Contact Diagnoses Anxiety state Perimenopausal Jaguar Cook PA-C [address] [place] [address] Referral ID Status Reason Start Date Expiration Date Visits Re quested Visits Authorized [id number] Closed 1 1 Specialty Diagnoses / Procedures Referred By Contact Referred To Contact [facility] Diagnoses Radiculopathy, lumbar region Procedures CONSULT TO PAIN MGT OFFICE/OUTPATIENT [facility] MDM 60-74 MINUTES Agnieszka Villagomez PA-C [address] [place] [address] Lona Stewart, GAME PROGRAMMER.NEWSPAPER OR PERIODICAL EDITOR [address] [place] [address] Referral ID Status Reason Start Date Expiration Date V isits Requested Visits Authorized [id number] Closed PCP Requested Referral 12/01/2022 12/01/2023 1 1 Specialty Diagnoses / Procedures Referred By Contac t Referred To Contact [facility] Diagnoses Low back pain, unspecified back pain laterality, unspecified chronicity, unspecified whether sciatica present Acute pain of left shoulder Procedures CONSULT TO PHYSICAL THERAPY PHYSICAL THERAPY [facility] 45 MINS Jennifer Whitfield, GAME PROGRAMMER.NEWSPAPER OR PERIODICAL EDITOR [address] [place] [address] [facility] [place] [address] [place] [address] Referral ID Status Reason Start Date Expiration Date Visits Requested Visits Authorized [id number] Pending Review Auto-Generat ed Referral 03/05/2023 03/04/2024 1 1 Specialty Diagnoses / Procedures Referred By Contac t Referred To Contact Neurology Diagnoses Headache, unspecified headache type Concussion without loss of consciousness, subsequent encounter Procedures CONSULT TO NEUROLOGY OFFICE/OUTPATIENT [facility] 60-74 MINUTES Guillermo Sheffield MD [address] [place] [address] Referral ID Status Reason Start Date Expiration Date Visits Requested Visits Authorized [id number] Authorized PCP Requested Referral 03/12/2023 03/11/2024 1 1 Specialty Diagnoses / Procedures Referred By Contac t Referred To Contact MR IMAGING Diagnoses Headache, unspecified headache type Concussion without loss of consciousness, subsequent encounter Procedures MRI BRAIN WO IVCON MRI BRAIN BRAIN STEM W/O CONTRAST MATERIAL Guillermo Sheffield MD [address] [place] [address] Mr Imaging Referral ID Status Reason Start Date Expiration Date Visits Requested Visits Authorized [id number] Pending Review Auto-Generat ed Referral 03/12/2023 04/10/2024 1 1 Specialty Diagnoses / Procedures Referred By Contac t Referred To Contact [facility] Diagnoses Neck pain Procedures CONSULT TO PHYSICAL THERAPY PHYSICAL THERAPY EVALUATION HIGH COMPLEX 45 MINS Guillermo Sheffield MD [address] [place] [address] [facility] [address] [address] Referral ID Status Reason Start Date Expiration Date Visits Requested Visits Authorized [id number] Pending Review Auto-Generat ed Referral 03/12/2023 03/11/2024 1 1 Specialty Diagnoses / Procedures Referred By Contac t Referred To Contact XR IMAGING Diagnoses Lumbar pain Procedures XR LUMBAR GENERAL 3V AP/LAT/L5-S1 RADEX SPINE LUMBOSACRAL 2/3 VIEWS Guillermo Sheffield MD [address] [place] [address] Xr Imaging Referral ID Status Reason Start Date Expiration Date Visits Requested Visits Authorized [id number] Authorized Auto-Generat ed Referral 03/12/2023 04/10/2024 1 1 Specialty Diagnoses / Procedures Referred By Contac t Referred To Contact [facility] Diagnoses Stress incontinence Urge incontinence Procedures CONSULT TO PHYSICAL THERAPY PHYSICAL THERAPY EVALUATION HIGH COMPLEX 45 MINS Nohelia Taylor APRN.NEWSPAPER OR PERIODICAL EDITOR [address] [place] [address] [facility] [address] [address] Referral ID Status Reason Start Date Expiration Date Visits Requested Visits Authorized [id number] Pending Review Auto-Generat ed Referral 03/20/2023 03/19/2024 1 1 Specialty Diagnoses / Procedures Referred By Contac t Referred To Contact XR IMAGING Diagnoses Pelvic pain in female Procedures XR PELVIS 2V INLET/OUTLET RADIOLOGIC EXAMINATION PELVIS 1/2 VIEWS Nohelia Taylor APRN.NEWSPAPER OR PERIODICAL EDITOR [address] [place] [address] Xr Imaging Referral ID Status Reason Start Date Expiration Date V isits Requested Visits Authorized [id number] Closed Auto-Generate d Referral 03/20/2023 04/18/2024 1 1 Specialty Diagnoses / Procedures Referred By Contac t Referred To Contact [facility] Diagnoses Low back pain, unspecified back pain laterality, unspecified chronicity, unspecified whether sciatica present Neck pain Procedures PT REHAB FOLLOW UP ORDER THERAPEUTIC EXERCISES RE, EA 15 MIN. Karina Rankin, PT [facility] [place] [address] [place] [address] Referral ID Status Reason Start Date Expiration Date Visits Requested Visits Authorized [id number] Pending Review PCP Requested Referral Auto-Generate d Referral 03/20/2023 06/18/2023 1 1 Specialty Diagnoses / Procedures Referred By Contac t Referred To Contact Orthopedics Diagnoses Chronic left shoulder pain Procedures CONSULT TO ORTHOPAEDICS OFFICE/OUTPATIENT [facility] 60-74 MINUTES Yeison Ignacio PA-C [address] [place] [address] Referral ID Status Reason Start Date Expiration Date Visits Requested Visits Authorized [id number] Authorized PCP Requested Referral 07/25/2024 1 1 Specialty Diagnoses / Procedures Referred By Contac t Referred To Contact MR IMAGING Diagnoses Headache, unspecified headache type Concussion without loss of consciousness, subsequent encounter Procedures MRI BRAIN WO IVCON MRI BRAIN BRAIN STEM W/O CONTRAST MATERIAL Guillermo Sheffield MD [address] [place] [address] Mr Imaging [facility] Referral ID Status Reason Start Date Expiration Date V isits Requested Visits Authorized [id number] Closed Auto-Generate d Referral 04/04/2023 06/03/2023 1 1 Specialty Diagnoses / Procedures Referred By Contac t Referred To Contact Diagnoses Vaginal itching Encounter for screening examination for sexually transmitted disease Procedures CONSULT TO EMPLOYMENT INTERVIEWER OFFICE/OUTPATIENT [facility] 60 MINUTES Karina Chandler, ROSARIO.NEWSPAPER OR PERIODICAL EDITOR [address] [place] [address] Referral ID Status Reason Start Date Expiration Date Visits Requested Visits Authorized [id number] Authorized PCP Requested Referral Auto-Generate d Referral 03/05/2024 03/05/2025 1 1 Medications Administered Section Inactive Administered Medications - up to 3 most recent administrations Medication Order MAR Action Action Date Dose Rate Site benzocaine 20% 1 Mcgregor (TOPEX) 1 Mcgregor, TOPICAL, DIRECTED, Starting on Sun04/25/22 at 1000, [...] Given 04/25/2022 9:36 AM EDT 25 mcg Given by LIP 04/25/2022 9:30 AM EDT 25 mcg Given 04/25/2022 9:29 AM EDT 50 mcg lactated ringers iv infusion 30 mL/hr, INTRAVENOUS, CONTINUOUS, Starting on Sun04/25/22 at 0900, Until Sun04/25/22 at 1027, Preprocedure New Bag/Syringe/Bottle 04/25/2022 8:35 AM EDT 30 mL/hr 30 mL/hr Hand, Right midazolam (PF) 1-5 mg injection (VERSED) 1-5 mg, INTRAVENOUS, DIRECTED, Starting on Sun04/25/22 at 1000, Until Sun04/25/22 at 1359, DOSING DIRECTED BY PHYSICIAN FOR PROCEDURAL SEDATION ONLY, Intraprocedure Given 04/25/2022 9:53 AM EDT 1 mg Given 04/25/2022 9:36 AM EDT 1 mg Given by LIP 04/25/2022 9:31 AM EDT 1 mg Health Concerns Infection Onset Date Last Indicated Resolved Time COVID-19 Rule-Out 09/21/2022 09/21/2022 09/22/2022 6:38 AM EST Infection Onset Date Last Indicated Resolved Time COVID-19 Confirmed 01/24/2023 01/24/2023 Infection Onset Date Last Indicated Resolved Time COVID-19 Rule-Out 03/01/2023 03/01/2023 Additional Source Comments INFORMATION SOURCE (unrecogn ized section and content) DATE CREATED AUTHOR 03/21/2018 [facility] DATE CREATED AUTHOR AUTHOR'S ORGANIZ ATION 03/22/2018 [facility] DATE CREATED AUTHOR AUTHOR'S ORGANIZ ATION 03/22/2018 [facility] DATE CREATED AUTHOR AUTHOR'S ORGANIZ ATION 04/27/2022 [facility] DATE CREATED AUTHOR AUTHOR'S ORGANIZ ATION 07/21/2024 [facility] Source Comments (unrecognize d section and content) In the event this informatio n is protected by the Federal Confidentiality of Alcohol and Drug Abuse Patient Records regulations: The Federal rules restrict any use of the information to criminally investigate or prosecute any alcohol or drug abuse patient.[facility] the event this information is protected by the Federal Confidentiality of Alcohol and Drug Abuse Patient Records regulations: The Federal rules restrict any use of the information to criminally investigate or prosecute any alcohol or drug abuse patient.[facility] HospitalIn the event this information is protected by the Federal Confidentiality of Alcohol and Drug Abuse Patient Records regulations: The Federal rules restrict any use of the information to criminally investigate or prosecute any alcohol or drug abuse patient.[facility] HospitalIn the event this information is protected by the Federal Confidentiality of Alcohol and Drug Abuse Patient Records regulations: The Federal rules restrict any use of the information to criminally investigate or prosecute any alcohol or drug abuse patient.[facility] HospitalIn the event this information is protected by the Federal Confidentiality of Alcohol and Drug Abuse Patient Records regulations: The Federal rules restrict any use of the information to criminally investigate or prosecute any alcohol or drug abuse patient.[facility] HospitalIn the event this information is protected by the Federal Confidentiality of Alcohol and Drug Abuse Patient Records regulations: The Federal rules restrict any use of the information to criminally investigate or prosecute any alcohol or drug abuse patient.[facility] HospitalIn the event this information is protected by the Federal Confidentiality of Alcohol and Drug Abuse Patient Records regulations: The Federal rules restrict any use of the information to criminally investigate or prosecute any alcohol or drug abuse patient.[facility] HospitalIn the event this information is protected by the Federal Confidentiality of Alcohol and Drug Abuse Patient Records regulations: The Federal rules restrict any use of the information to criminally investigate or prosecute any alcohol or drug abuse patient.[facility] HospitalIn the event this information is protected by the Federal Confidentiality of Alcohol and Drug Abuse Patient Records regulations: The Federal rules restrict any use of the information to criminally investigate or prosecute any alcohol or drug abuse patient.[facility] HospitalIn the event this information is protected by the Federal Confidentiality of Alcohol and Drug Abuse Patient Records regulations: The Federal rules restrict any use of the information to criminally investigate or prosecute any alcohol or drug abuse patient.[facility] HospitalIn the event this information is protected by the Federal Confidentiality of Alcohol and Drug Abuse Patient Records regulations: The Federal rules restrict any use of the information to criminally investigate or prosecute any alcohol or drug abuse patient.[facility] HospitalIn the event this information is protected by the Federal Confidentiality of Alcohol and Drug Abuse Patient Records regulations: The Federal rules restrict any use of the information to criminally investigate or prosecute any alcohol or drug abuse patient.[facility] HospitalIn the event this information is protected by the Federal Confidentiality of Alcohol and Drug Abuse Patient Records regulations: The Federal rules restrict any use of the information to criminally investigate or prosecute any alcohol or drug abuse patient.[facility] HospitalIn the event this information is protected by the Federal Confidentiality of Alcohol and Drug Abuse Patient Records regulations: The Federal rules restrict any use of the information to criminally investigate or prosecute any alcohol or drug abuse patient.[facility] HospitalIn the event this information is protected by the Federal Confidentiality of Alcohol and Drug Abuse Patient Records regulations: The Federal rules restrict any use of the information to criminally investigate or prosecute any alcohol or drug abuse patient.[facility] HospitalIn the event this information is protected by the Federal Confidentiality of Alcohol and Drug Abuse Patient Records regulations: The Federal rules restrict any use of the information to criminally investigate or prosecute any alcohol or drug abuse patient.[facility] HospitalIn the event this information is protected by the Federal Confidentiality of Alcohol and Drug Abuse Patient Records regulations: The Federal rules restrict any use of the information to criminally investigate or prosecute any alcohol or drug abuse patient.[facility] HospitalIn the event this information is protected by the Federal Confidentiality of Alcohol and Drug Abuse Patient Records regulations: The Federal rules restrict any use of the information to criminally investigate or prosecute any alcohol or drug abuse patient.[facility] HospitalIn the event this information is protected by the Federal Confidentiality of Alcohol and Drug Abuse Patient Records regulations: The Federal rules restrict any use of the information to criminally investigate or prosecute any alcohol or drug abuse patient.[facility] HospitalIn the event this information is protected by the Federal Confidentiality of Alcohol and Drug Abuse Patient Records regulations: The Federal rules restrict any use of the information to criminally investigate or prosecute any alcohol or drug abuse patient.[facility] HospitalIn the event this information is protected by the Federal Confidentiality of Alcohol and Drug Abuse Patient Records regulations: The Federal rules restrict any use of the information to criminally investigate or prosecute any alcohol or drug abuse patient.[facility] HospitalIn the event this information is protected by the Federal Confidentiality of Alcohol and Drug Abuse Patient Records regulations: The Federal rules restrict any use of the information to criminally investigate or prosecute any alcohol or drug abuse patient.[facility] HospitalIn the event this information is protected by the Federal Confidentiality of Alcohol and Drug Abuse Patient Records regulations: The Federal rules restrict any use of the information to criminally investigate or prosecute any alcohol or drug abuse patient.[facility] HospitalIn the event this information is protected by the Federal Confidentiality of Alcohol and Drug Abuse Patient Records regulations: The Federal rules restrict any use of the information to criminally investigate or prosecute any alcohol or drug abuse patient.[facility] HospitalIn the event this information is protected by the Federal Confidentiality of Alcohol and Drug Abuse Patient Records regulations: The Federal rules restrict any use of the information to criminally investigate or prosecute any alcohol or drug abuse patient.[facility] HospitalIn the event this information is protected by the Federal Confidentiality of Alcohol and Drug Abuse Patient Records regulations: The Federal rules restrict any use of the information to criminally investigate or prosecute any alcohol or drug abuse patient.[facility] HospitalIn the event this information is protected by the Federal Confidentiality of Alcohol and Drug Abuse Patient Records regulations: The Federal rules restrict any use of the information to criminally investigate or prosecute any alcohol or drug abuse patient.[facility] HospitalIn the event this information is protected by the Federal Confidentiality of Alcohol and Drug Abuse Patient Records regulations: The Federal rules restrict any use of the information to criminally investigate or prosecute any alcohol or drug abuse patient.[facility] HospitalIn the event this information is protected by the Federal Confidentiality of Alcohol and Drug Abuse Patient Records regulations: The Federal rules restrict any use of the information to criminally investigate or prosecute any alcohol or drug abuse patient.[facility] HospitalIn the event this information is protected by the Federal Confidentiality of Alcohol and Drug Abuse Patient Records regulations: The Federal rules restrict any use of the information to criminally investigate or prosecute any alcohol or drug abuse patient.[facility] HospitalIn the event this information is protected by the Federal Confidentiality of Alcohol and Drug Abuse Patient Records regulations: The Federal rules restrict any use of the information to criminally investigate or prosecute any alcohol or drug abuse patient.[facility] HospitalIn the event this information is protected by the Federal Confidentiality of Alcohol and Drug Abuse Patient Records regulations: The Federal rules restrict any use of the information to criminally investigate or prosecute any alcohol or drug abuse patient.[facility] HospitalIn the event this information is protected by the Federal Confidentiality of Alcohol and Drug Abuse Patient Records regulations: The Federal rules restrict any use of the information to criminally investigate or prosecute any alcohol or drug abuse patient.[facility] HospitalIn the event this information is protected by the Federal Confidentiality of Alcohol and Drug Abuse Patient Records regulations: The Federal rules restrict any use of the information to criminally investigate or prosecute any alcohol or drug abuse patient.[facility] HospitalIn the event this information is protected by the Federal Confidentiality of Alcohol and Drug Abuse Patient Records regulations: The Federal rules restrict any use of the information to criminally investigate or prosecute any alcohol or drug abuse patient.[facility] HospitalIn the event this information is protected by the Federal Confidentiality of Alcohol and Drug Abuse Patient Records regulations: The Federal rules restrict any use of the information to criminally investigate or prosecute any alcohol or drug abuse patient.[facility] HospitalIn the event this information is protected by the Federal Confidentiality of Alcohol and Drug Abuse Patient Records regulations: The Federal rules restrict any use of the information to criminally investigate or prosecute any alcohol or drug abuse patient.[facility] HospitalIn the event this information is protected by the Federal Confidentiality of Alcohol and Drug Abuse Patient Records regulations: The Federal rules restrict any use of the information to criminally investigate or prosecute any alcohol or drug abuse patient.[facility] the event this information is protected by the Federal Confidentiality of Alcohol and Drug Abuse Patient Records regulations: The Federal rules restrict any use of the information to criminally investigate or prosecute any alcohol or drug abuse patient.[facility] HospitalIn the event this information is protected by the Federal Confidentiality of Alcohol and Drug Abuse Patient Records regulations: The Federal rules restrict any use of the information to criminally investigate or prosecute any alcohol or drug abuse patient.[facility] HospitalIn the event this information is protected by the Federal Confidentiality of Alcohol and Drug Abuse Patient Records regulations: The Federal rules restrict any use of the information to criminally investigate or prosecute any alcohol or drug abuse patient.[facility]In the event this information is protected by the Federal Confidentiality of Alcohol and Drug Abuse Patient Records regulations: The Federal rules restrict any use of the information to criminally investigate or prosecute any alcohol or drug abuse patient.[facility] HospitalIn the event this information is protected by the Federal Confidentiality of Alcohol and Drug Abuse Patient Records regulations: The Federal rules restrict any use of the information to criminally investigate or prosecute any alcohol or drug abuse patient.[facility] HospitalIn the event this information is protected by the Federal Confidentiality of Alcohol and Drug Abuse Patient Records regulations: The Federal rules restrict any use of the information to criminally investigate or prosecute any alcohol or drug abuse patient.[facility] HospitalIn the event this information is protected by the Federal Confidentiality of Alcohol and Drug Abuse Patient Records regulations: The Federal rules restrict any use of the information to criminally investigate or prosecute any alcohol or drug abuse patient.[facility] HospitalIn the event this information is protected by the Federal Confidentiality of Alcohol and Drug Abuse Patient Records regulations: The Federal rules restrict any use of the information to criminally investigate or prosecute any alcohol or drug abuse patient.[facility] HospitalIn the event this information is protected by the Federal Confidentiality of Alcohol and Drug Abuse Patient Records regulations: The Federal rules restrict any use of the information to criminally investigate or prosecute any alcohol or drug abuse patient.[facility] HospitalIn the event this information is protected by the Federal Confidentiality of Alcohol and Drug Abuse Patient Records regulations: The Federal rules restrict any use of the information to criminally investigate or prosecute any alcohol or drug abuse patient.[facility] HospitalIn the event this information is protected by the Federal Confidentiality of Alcohol and Drug Abuse Patient Records regulations: The Federal rules restrict any use of the information to criminally investigate or prosecute any alcohol or drug abuse patient.[facility] HospitalIn the event this information is protected by the Federal Confidentiality of Alcohol and Drug Abuse Patient Records regulations: The Federal rules restrict any use of the information to criminally investigate or prosecute any alcohol or drug abuse patient.[facility] HospitalIn the event this information is protected by the Federal Confidentiality of Alcohol and Drug Abuse Patient Records regulations: The Federal rules restrict any use of the information to criminally investigate or prosecute any alcohol or drug abuse patient.[facility] HospitalIn the event this information is protected by the Federal Confidentiality of Alcohol and Drug Abuse Patient Records regulations: The Federal rules restrict any use of the information to criminally investigate or prosecute any alcohol or drug abuse patient.[facility] HospitalIn the event this information is protected by the Federal Confidentiality of Alcohol and Drug Abuse Patient Records regulations: The Federal rules restrict any use of the information to criminally investigate or prosecute any alcohol or drug abuse patient.[facility] HospitalIn the event this information is protected by the Federal Confidentiality of Alcohol and Drug Abuse Patient Records regulations: The Federal rules restrict any use of the information to criminally investigate or prosecute any alcohol or drug abuse patient.[facility] HospitalIn the event this information is protected by the Federal Confidentiality of Alcohol and Drug Abuse Patient Records regulations: The Federal rules restrict any use of the information to criminally investigate or prosecute any alcohol or drug abuse patient.[facility] HospitalIn the event this information is protected by the Federal Confidentiality of Alcohol and Drug Abuse Patient Records regulations: The Federal rules restrict any use of the information to criminally investigate or prosecute any alcohol or drug abuse patient.[facility] HospitalIn the event this information is protected by the Federal Confidentiality of Alcohol and Drug Abuse Patient Records regulations: The Federal rules restrict any use of the information to criminally investigate or prosecute any alcohol or drug abuse patient.[facility] HospitalIn the event this information is protected by the Federal Confidentiality of Alcohol and Drug Abuse Patient Records regulations: The Federal rules restrict any use of the information to criminally investigate or prosecute any alcohol or drug abuse patient.[facility] HospitalIn the event this information is protected by the Federal Confidentiality of Alcohol and Drug Abuse Patient Records regulations: The Federal rules restrict any use of the information to criminally investigate or prosecute any alcohol or drug abuse patient.[facility] HospitalIn the event this information is protected by the Federal Confidentiality of Alcohol and Drug Abuse Patient Records regulations: The Federal rules restrict any use of the information to criminally investigate or prosecute any alcohol or drug abuse patient.[facility] HospitalIn the event this information is protected by the Federal Confidentiality of Alcohol and Drug Abuse Patient Records regulations: The Federal rules restrict any use of the information to criminally investigate or prosecute any alcohol or drug abuse patient.[facility] HospitalIn the event this information is protected by the Federal Confidentiality of Alcohol and Drug Abuse Patient Records regulations: The Federal rules restrict any use of the information to criminally investigate or prosecute any alcohol or drug abuse patient.[facility] HospitalIn the event this information is protected by the Federal Confidentiality of Alcohol and Drug Abuse Patient Records regulations: The Federal rules restrict any use of the information to criminally investigate or prosecute any alcohol or drug abuse patient.[facility] HospitalIn the event this information is protected by the Federal Confidentiality of Alcohol and Drug Abuse Patient Records regulations: The Federal rules restrict any use of the information to criminally investigate or prosecute any alcohol or drug abuse patient.[facility] HospitalIn the event this information is protected by the Federal Confidentiality of Alcohol and Drug Abuse Patient Records regulations: The Federal rules restrict any use of the information to criminally investigate or prosecute any alcohol or drug abuse patient.[facility] HospitalIn the event this information is protected by the Federal Confidentiality of Alcohol and Drug Abuse Patient Records regulations: The Federal rules restrict any use of the information to criminally investigate or prosecute any alcohol or drug abuse patient.[facility] HospitalIn the event this information is protected by the Federal Confidentiality of Alcohol and Drug Abuse Patient Records regulations: The Federal rules restrict any use of the information to criminally investigate or prosecute any alcohol or drug abuse patient.[facility] HospitalIn the event this information is protected by the Federal Confidentiality of Alcohol and Drug Abuse Patient Records regulations: The Federal rules restrict any use of the information to criminally investigate or prosecute any alcohol or drug abuse patient.[facility] HospitalIn the event this information is protected by the Federal Confidentiality of Alcohol and Drug Abuse Patient Records regulations: The Federal rules restrict any use of the information to criminally investigate or prosecute any alcohol or drug abuse patient.[facility] HospitalIn the event this information is protected by the Federal Confidentiality of Alcohol and Drug Abuse Patient Records regulations: The Federal rules restrict any use of the information to criminally investigate or prosecute any alcohol or drug abuse patient.[facility] HospitalIn the event this information is protected by the Federal Confidentiality of Alcohol and Drug Abuse Patient Records regulations: The Federal rules restrict any use of the information to criminally investigate or prosecute any alcohol or drug abuse patient.[facility] HospitalIn the event this information is protected by the Federal Confidentiality of Alcohol and Drug Abuse Patient Records regulations: The Federal rules restrict any use of the information to criminally investigate or prosecute any alcohol or drug abuse patient.[facility] HospitalIn the event this information is protected by the Federal Confidentiality of Alcohol and Drug Abuse Patient Records regulations: The Federal rules restrict any use of the information to criminally investigate or prosecute any alcohol or drug abuse patient.[facility] HospitalIn the event this information is protected by the Federal Confidentiality of Alcohol and Drug Abuse Patient Records regulations: The Federal rules restrict any use of the information to criminally investigate or prosecute any alcohol or drug abuse patient.[facility] HospitalIn the event this information is protected by the Federal Confidentiality of Alcohol and Drug Abuse Patient Records regulations: The Federal rules restrict any use of the information to criminally investigate or prosecute any alcohol or drug abuse patient.[facility] HospitalIn the event this information is protected by the Federal Confidentiality of Alcohol and Drug Abuse Patient Records regulations: The Federal rules restrict any use of the information to criminally investigate or prosecute any alcohol or drug abuse patient.[facility] HospitalIn the event this information is protected by the Federal Confidentiality of Alcohol and Drug Abuse Patient Records regulations: The Federal rules restrict any use of the information to criminally investigate or prosecute any alcohol or drug abuse patient.[facility] HospitalIn the event this information is protected by the Federal Confidentiality of Alcohol and Drug Abuse Patient Records regulations: The Federal rules restrict any use of the information to criminally investigate or prosecute any alcohol or drug abuse patient.[facility] HospitalIn the event this information is protected by the Federal Confidentiality of Alcohol and Drug Abuse Patient Records regulations: The Federal rules restrict any use of the information to criminally investigate or prosecute any alcohol or drug abuse patient.[facility] HospitalIn the event this information is protected by the Federal Confidentiality of Alcohol and Drug Abuse Patient Records regulations: The Federal rules restrict any use of the information to criminally investigate or prosecute any alcohol or drug abuse patient.[facility] HospitalIn the event this information is protected by the Federal Confidentiality of Alcohol and Drug Abuse Patient Records regulations: The Federal rules restrict any use of the information to criminally investigate or prosecute any alcohol or drug abuse patient.[facility] HospitalIn the event this information is protected by the Federal Confidentiality of Alcohol and Drug Abuse Patient Records regulations: The Federal rules restrict any use of the information to criminally investigate or prosecute any alcohol or drug abuse patient.[facility] HospitalIn the event this information is protected by the Federal Confidentiality of Alcohol and Drug Abuse Patient Records regulations: The Federal rules restrict any use of the information to criminally investigate or prosecute any alcohol or drug abuse patient.[facility] HospitalIn the event this information is protected by the Federal Confidentiality of Alcohol and Drug Abuse Patient Records regulations: The Federal rules restrict any use of the information to criminally investigate or prosecute any alcohol or drug abuse patient.[facility] HospitalIn the event this information is protected by the Federal Confidentiality of Alcohol and Drug Abuse Patient Records regulations: The Federal rules restrict any use of the information to criminally investigate or prosecute any alcohol or drug abuse patient.[facility] HospitalIn the event this information is protected by the Federal Confidentiality of Alcohol and Drug Abuse Patient Records regulations: The Federal rules restrict any use of the information to criminally investigate or prosecute any alcohol or drug abuse patient.[facility] HospitalIn the event this information is protected by the Federal Confidentiality of Alcohol and Drug Abuse Patient Records regulations: The Federal rules restrict any use of the information to criminally investigate or prosecute any alcohol or drug abuse patient.[facility] HospitalIn the event this information is protected by the Federal Confidentiality of Alcohol and Drug Abuse Patient Records regulations: The Federal rules restrict any use of the information to criminally investigate or prosecute any alcohol or drug abuse patient.[facility] the event this information is protected by the Federal Confidentiality of Alcohol and Drug Abuse Patient Records regulations: The Federal rules restrict any use of the information to criminally investigate or prosecute any alcohol or drug abuse patient.[facility] HospitalIn the event this information is protected by the Federal Confidentiality of Alcohol and Drug Abuse Patient Records regulations: The Federal rules restrict any use of the information to criminally investigate or prosecute any alcohol or drug abuse patient.[facility] HospitalIn the event this information is protected by the Federal Confidentiality of Alcohol and Drug Abuse Patient Records regulations: The Federal rules restrict any use of the information to criminally investigate or prosecute any alcohol or drug abuse patient.[facility]In the event this information is protected by the Federal Confidentiality of Alcohol and Drug Abuse Patient Records regulations: The Federal rules restrict any use of the information to criminally investigate or prosecute any alcohol or drug abuse patient.[facility] HospitalIn the event this information is protected by the Federal Confidentiality of Alcohol and Drug Abuse Patient Records regulations: The Federal rules restrict any use of the information to criminally investigate or prosecute any alcohol or drug abuse patient.[facility] HospitalIn the event this information is protected by the Federal Confidentiality of Alcohol and Drug Abuse Patient Records regulations: The Federal rules restrict any use of the information to criminally investigate or prosecute any alcohol or drug abuse patient.[facility] HospitalIn the event this information is protected by the Federal Confidentiality of Alcohol and Drug Abuse Patient Records regulations: The Federal rules restrict any use of the information to criminally investigate or prosecute any alcohol or drug abuse patient.[facility] HospitalIn the event this information is protected by the Federal Confidentiality of Alcohol and Drug Abuse Patient Records regulations: The Federal rules restrict any use of the information to criminally investigate or prosecute any alcohol or drug abuse patient.[facility] HospitalIn the event this information is protected by the Federal Confidentiality of Alcohol and Drug Abuse Patient Records regulations: The Federal rules restrict any use of the information to criminally investigate or prosecute any alcohol or drug abuse patient.[facility] HospitalIn the event this information is protected by the Federal Confidentiality of Alcohol and Drug Abuse Patient Records regulations: The Federal rules restrict any use of the information to criminally investigate or prosecute any alcohol or drug abuse patient.[facility] HospitalIn the event this information is protected by the Federal Confidentiality of Alcohol and Drug Abuse Patient Records regulations: The Federal rules restrict any use of the information to criminally investigate or prosecute any alcohol or drug abuse patient.[facility] HospitalIn the event this information is protected by the Federal Confidentiality of Alcohol and Drug Abuse Patient Records regulations: The Federal rules restrict any use of the information to criminally investigate or prosecute any alcohol or drug abuse patient.[facility] HospitalIn the event this information is protected by the Federal Confidentiality of Alcohol and Drug Abuse Patient Records regulations: The Federal rules restrict any use of the information to criminally investigate or prosecute any alcohol or drug abuse patient.[facility] HospitalIn the event this information is protected by the Federal Confidentiality of Alcohol and Drug Abuse Patient Records regulations: The Federal rules restrict any use of the information to criminally investigate or prosecute any alcohol or drug abuse patient.[facility] HospitalIn the event this information is protected by the Federal Confidentiality of Alcohol and Drug Abuse Patient Records regulations: The Federal rules restrict any use of the information to criminally investigate or prosecute any alcohol or drug abuse patient.[facility] HospitalIn the event this information is protected by the Federal Confidentiality of Alcohol and Drug Abuse Patient Records regulations: The Federal rules restrict any use of the information to criminally investigate or prosecute any alcohol or drug abuse patient.[facility] HospitalIn the event this information is protected by the Federal Confidentiality of Alcohol and Drug Abuse Patient Records regulations: The Federal rules restrict any use of the information to criminally investigate or prosecute any alcohol or drug abuse patient.[facility] HospitalIn the event this information is protected by the Federal Confidentiality of Alcohol and Drug Abuse Patient Records regulations: The Federal rules restrict any use of the information to criminally investigate or prosecute any alcohol or drug abuse patient.[facility] HospitalIn the event this information is protected by the Federal Confidentiality of Alcohol and Drug Abuse Patient Records regulations: The Federal rules restrict any use of the information to criminally investigate or prosecute any alcohol or drug abuse patient.[facility] HospitalIn the event this information is protected by the Federal Confidentiality of Alcohol and Drug Abuse Patient Records regulations: The Federal rules restrict any use of the information to criminally investigate or prosecute any alcohol or drug abuse patient.[facility] HospitalIn the event this information is protected by the Federal Confidentiality of Alcohol and Drug Abuse Patient Records regulations: The Federal rules restrict any use of the information to criminally investigate or prosecute any alcohol or drug abuse patient.[facility] HospitalIn the event this information is protected by the Federal Confidentiality of Alcohol and Drug Abuse Patient Records regulations: The Federal rules restrict any use of the information to criminally investigate or prosecute any alcohol or drug abuse patient.[facility] HospitalIn the event this information is protected by the Federal Confidentiality of Alcohol and Drug Abuse Patient Records regulations: The Federal rules restrict any use of the information to criminally investigate or prosecute any alcohol or drug abuse patient.[facility] HospitalIn the event this information is protected by the Federal Confidentiality of Alcohol and Drug Abuse Patient Records regulations: The Federal rules restrict any use of the information to criminally investigate or prosecute any alcohol or drug abuse patient.[facility] HospitalIn the event this information is protected by the Federal Confidentiality of Alcohol and Drug Abuse Patient Records regulations: The Federal rules restrict any use of the information to criminally investigate or prosecute any alcohol or drug abuse patient.[facility] HospitalIn the event this information is protected by the Federal Confidentiality of Alcohol and Drug Abuse Patient Records regulations: The Federal rules restrict any use of the information to criminally investigate or prosecute any alcohol or drug abuse patient.[facility] HospitalIn the event this information is protected by the Federal Confidentiality of Alcohol and Drug Abuse Patient Records regulations: The Federal rules restrict any use of the information to criminally investigate or prosecute any alcohol or drug abuse patient.[facility] HospitalIn the event this information is protected by the Federal Confidentiality of Alcohol and Drug Abuse Patient Records regulations: The Federal rules restrict any use of the information to criminally investigate or prosecute any alcohol or drug abuse patient.[facility] HospitalIn the event this information is protected by the Federal Confidentiality of Alcohol and Drug Abuse Patient Records regulations: The Federal rules restrict any use of the information to criminally investigate or prosecute any alcohol or drug abuse patient.[facility] HospitalIn the event this information is protected by the Federal Confidentiality of Alcohol and Drug Abuse Patient Records regulations: The Federal rules restrict any use of the information to criminally investigate or prosecute any alcohol or drug abuse patient.[facility] HospitalIn the event this information is protected by the Federal Confidentiality of Alcohol and Drug Abuse Patient Records regulations: The Federal rules restrict any use of the information to criminally investigate or prosecute any alcohol or drug abuse patient.[facility] HospitalIn the event this information is protected by the Federal Confidentiality of Alcohol and Drug Abuse Patient Records regulations: The Federal rules restrict any use of the information to criminally investigate or prosecute any alcohol or drug abuse patient.[facility] HospitalIn the event this information is protected by the Federal Confidentiality of Alcohol and Drug Abuse Patient Records regulations: The Federal rules restrict any use of the information to criminally investigate or prosecute any alcohol or drug abuse patient.[facility] HospitalIn the event this information is protected by the Federal Confidentiality of Alcohol and Drug Abuse Patient Records regulations: The Federal rules restrict any use of the information to criminally investigate or prosecute any alcohol or drug abuse patient.[facility] HospitalIn the event this information is protected by the Federal Confidentiality of Alcohol and Drug Abuse Patient Records regulations: The Federal rules restrict any use of the information to criminally investigate or prosecute any alcohol or drug abuse patient.[facility] HospitalIn the event this information is protected by the Federal Confidentiality of Alcohol and Drug Abuse Patient Records regulations: The Federal rules restrict any use of the information to criminally investigate or prosecute any alcohol or drug abuse patient.[facility] HospitalIn the event this information is protected by the Federal Confidentiality of Alcohol and Drug Abuse Patient Records regulations: The Federal rules restrict any use of the information to criminally investigate or prosecute any alcohol or drug abuse patient.[facility] HospitalIn the event this information is protected by the Federal Confidentiality of Alcohol and Drug Abuse Patient Records regulations: The Federal rules restrict any use of the information to criminally investigate or prosecute any alcohol or drug abuse patient.[facility] HospitalIn the event this information is protected by the Federal Confidentiality of Alcohol and Drug Abuse Patient Records regulations: The Federal rules restrict any use of the information to criminally investigate or prosecute any alcohol or drug abuse patient.[facility] HospitalIn the event this information is protected by the Federal Confidentiality of Alcohol and Drug Abuse Patient Records regulations: The Federal rules restrict any use of the information to criminally investigate or prosecute any alcohol or drug abuse patient.[facility] HospitalIn the event this information is protected by the Federal Confidentiality of Alcohol and Drug Abuse Patient Records regulations: The Federal rules restrict any use of the information to criminally investigate or prosecute any alcohol or drug abuse patient.[facility] HospitalIn the event this information is protected by the Federal Confidentiality of Alcohol and Drug Abuse Patient Records regulations: The Federal rules restrict any use of the information to criminally investigate or prosecute any alcohol or drug abuse patient.[facility] HospitalIn the event this information is protected by the Federal Confidentiality of Alcohol and Drug Abuse Patient Records regulations: The Federal rules restrict any use of the information to criminally investigate or prosecute any alcohol or drug abuse patient.[facility] HospitalIn the event this information is protected by the Federal Confidentiality of Alcohol and Drug Abuse Patient Records regulations: The Federal rules restrict any use of the information to criminally investigate or prosecute any alcohol or drug abuse patient.[facility] HospitalIn the event this information is protected by the Federal Confidentiality of Alcohol and Drug Abuse Patient Records regulations: The Federal rules restrict any use of the information to criminally investigate or prosecute any alcohol or drug abuse patient.[facility] HospitalIn the event this information is protected by the Federal Confidentiality of Alcohol and Drug Abuse Patient Records regulations: The Federal rules restrict any use of the information to criminally investigate or prosecute any alcohol or drug abuse patient.[facility] HospitalIn the event this information is protected by the Federal Confidentiality of Alcohol and Drug Abuse Patient Records regulations: The Federal rules restrict any use of the information to criminally investigate or prosecute any alcohol or drug abuse patient.[facility] HospitalIn the event this information is protected by the Federal Confidentiality of Alcohol and Drug Abuse Patient Records regulations: The Federal rules restrict any use of the information to criminally investigate or prosecute any alcohol or drug abuse patient.[facility] HospitalIn the event this information is protected by the Federal Confidentiality of Alcohol and Drug Abuse Patient Records regulations: The Federal rules restrict any use of the information to criminally investigate or prosecute any alcohol or drug abuse patient.[facility] HospitalIn the event this information is protected by the Federal Confidentiality of Alcohol and Drug Abuse Patient Records regulations: The Federal rules restrict any use of the information to criminally investigate or prosecute any alcohol or drug abuse patient.[facility] the event this information is protected by the Federal Confidentiality of Alcohol and Drug Abuse Patient Records regulations: The Federal rules restrict any use of the information to criminally investigate or prosecute any alcohol or drug abuse patient.[facility] HospitalIn the event this information is protected by the Federal Confidentiality of Alcohol and Drug Abuse Patient Records regulations: The Federal rules restrict any use of the information to criminally investigate or prosecute any alcohol or drug abuse patient.[facility] HospitalIn the event this information is protected by the Federal Confidentiality of Alcohol and Drug Abuse Patient Records regulations: The Federal rules restrict any use of the information to criminally investigate or prosecute any alcohol or drug abuse patient.[facility]In the event this information is protected by the Federal Confidentiality of Alcohol and Drug Abuse Patient Records regulations: The Federal rules restrict any use of the information to criminally investigate or prosecute any alcohol or drug abuse patient.[facility] HospitalIn the event this information is protected by the Federal Confidentiality of Alcohol and Drug Abuse Patient Records regulations: The Federal rules restrict any use of the information to criminally investigate or prosecute any alcohol or drug abuse patient.[facility] HospitalIn the event this information is protected by the Federal Confidentiality of Alcohol and Drug Abuse Patient Records regulations: The Federal rules restrict any use of the information to criminally investigate or prosecute any alcohol or drug abuse patient.[facility] HospitalIn the event this information is protected by the Federal Confidentiality of Alcohol and Drug Abuse Patient Records regulations: The Federal rules restrict any use of the information to criminally investigate or prosecute any alcohol or drug abuse patient.[facility] HospitalIn the event this information is protected by the Federal Confidentiality of Alcohol and Drug Abuse Patient Records regulations: The Federal rules restrict any use of the information to criminally investigate or prosecute any alcohol or drug abuse patient.[facility] HospitalIn the event this information is protected by the Federal Confidentiality of Alcohol and Drug Abuse Patient Records regulations: The Federal rules restrict any use of the information to criminally investigate or prosecute any alcohol or drug abuse patient.[facility] HospitalIn the event this information is protected by the Federal Confidentiality of Alcohol and Drug Abuse Patient Records regulations: The Federal rules restrict any use of the information to criminally investigate or prosecute any alcohol or drug abuse patient.[facility] HospitalIn the event this information is protected by the Federal Confidentiality of Alcohol and Drug Abuse Patient Records regulations: The Federal rules restrict any use of the information to criminally investigate or prosecute any alcohol or drug abuse patient.[facility] HospitalIn the event this information is protected by the Federal Confidentiality of Alcohol and Drug Abuse Patient Records regulations: The Federal rules restrict any use of the information to criminally investigate or prosecute any alcohol or drug abuse patient.[facility] HospitalIn the event this information is protected by the Federal Confidentiality of Alcohol and Drug Abuse Patient Records regulations: The Federal rules restrict any use of the information to criminally investigate or prosecute any alcohol or drug abuse patient.[facility] HospitalIn the event this information is protected by the Federal Confidentiality of Alcohol and Drug Abuse Patient Records regulations: The Federal rules restrict any use of the information to criminally investigate or prosecute any alcohol or drug abuse patient.[facility] HospitalIn the event this information is protected by the Federal Confidentiality of Alcohol and Drug Abuse Patient Records regulations: The Federal rules restrict any use of the information to criminally investigate or prosecute any alcohol or drug abuse patient.[facility] HospitalIn the event this information is protected by the Federal Confidentiality of Alcohol and Drug Abuse Patient Records regulations: The Federal rules restrict any use of the information to criminally investigate or prosecute any alcohol or drug abuse patient.[facility] HospitalIn the event this information is protected by the Federal Confidentiality of Alcohol and Drug Abuse Patient Records regulations: The Federal rules restrict any use of the information to criminally investigate or prosecute any alcohol or drug abuse patient.[facility] HospitalIn the event this information is protected by the Federal Confidentiality of Alcohol and Drug Abuse Patient Records regulations: The Federal rules restrict any use of the information to criminally investigate or prosecute any alcohol or drug abuse patient.[facility] HospitalIn the event this information is protected by the Federal Confidentiality of Alcohol and Drug Abuse Patient Records regulations: The Federal rules restrict any use of the information to criminally investigate or prosecute any alcohol or drug abuse patient.[facility] HospitalIn the event this information is protected by the Federal Confidentiality of Alcohol and Drug Abuse Patient Records regulations: The Federal rules restrict any use of the information to criminally investigate or prosecute any alcohol or drug abuse patient.[facility] HospitalIn the event this information is protected by the Federal Confidentiality of Alcohol and Drug Abuse Patient Records regulations: The Federal rules restrict any use of the information to criminally investigate or prosecute any alcohol or drug abuse patient.[facility] HospitalIn the event this information is protected by the Federal Confidentiality of Alcohol and Drug Abuse Patient Records regulations: The Federal rules restrict any use of the information to criminally investigate or prosecute any alcohol or drug abuse patient.[facility] HospitalIn the event this information is protected by the Federal Confidentiality of Alcohol and Drug Abuse Patient Records regulations: The Federal rules restrict any use of the information to criminally investigate or prosecute any alcohol or drug abuse patient.[facility] HospitalIn the event this information is protected by the Federal Confidentiality of Alcohol and Drug Abuse Patient Records regulations: The Federal rules restrict any use of the information to criminally investigate or prosecute any alcohol or drug abuse patient.[facility] HospitalIn the event this information is protected by the Federal Confidentiality of Alcohol and Drug Abuse Patient Records regulations: The Federal rules restrict any use of the information to criminally investigate or prosecute any alcohol or drug abuse patient.[facility] HospitalIn the event this information is protected by the Federal Confidentiality of Alcohol and Drug Abuse Patient Records regulations: The Federal rules restrict any use of the information to criminally investigate or prosecute any alcohol or drug abuse patient.[facility] HospitalIn the event this information is protected by the Federal Confidentiality of Alcohol and Drug Abuse Patient Records regulations: The Federal rules restrict any use of the information to criminally investigate or prosecute any alcohol or drug abuse patient.[facility] HospitalIn the event this information is protected by the Federal Confidentiality of Alcohol and Drug Abuse Patient Records regulations: The Federal rules restrict any use of the information to criminally investigate or prosecute any alcohol or drug abuse patient.[facility] HospitalIn the event this information is protected by the Federal Confidentiality of Alcohol and Drug Abuse Patient Records regulations: The Federal rules restrict any use of the information to criminally investigate or prosecute any alcohol or drug abuse patient.[facility] HospitalIn the event this information is protected by the Federal Confidentiality of Alcohol and Drug Abuse Patient Records regulations: The Federal rules restrict any use of the information to criminally investigate or prosecute any alcohol or drug abuse patient.[facility] HospitalIn the event this information is protected by the Federal Confidentiality of Alcohol and Drug Abuse Patient Records regulations: The Federal rules restrict any use of the information to criminally investigate or prosecute any alcohol or drug abuse patient.[facility] HospitalIn the event this information is protected by the Federal Confidentiality of Alcohol and Drug Abuse Patient Records regulations: The Federal rules restrict any use of the information to criminally investigate or prosecute any alcohol or drug abuse patient.[facility] HospitalIn the event this information is protected by the Federal Confidentiality of Alcohol and Drug Abuse Patient Records regulations: The Federal rules restrict any use of the information to criminally investigate or prosecute any alcohol or drug abuse patient.[facility] HospitalIn the event this information is protected by the Federal Confidentiality of Alcohol and Drug Abuse Patient Records regulations: The Federal rules restrict any use of the information to criminally investigate or prosecute any alcohol or drug abuse patient.[facility] HospitalIn the event this information is protected by the Federal Confidentiality of Alcohol and Drug Abuse Patient Records regulations: The Federal rules restrict any use of the information to criminally investigate or prosecute any alcohol or drug abuse patient.White HospitalIn the event this information is protected by the Federal Confidentiality of Alcohol and Drug Abuse Patient Records regulations: The Federal rules restrict any use of the information to criminally investigate or prosecute any alcohol or drug abuse patient.[facility] HospitalIn the event this information is protected by the Federal Confidentiality of Alcohol and Drug Abuse Patient Records regulations: The Federal rules restrict any use of the information to criminally investigate or prosecute any alcohol or drug abuse patient.White HospitalIn the event this information is protected by the Federal Confidentiality of Alcohol and Drug Abuse Patient Records regulations: The Federal rules restrict any use of the information to criminally investigate or prosecute any alcohol or drug abuse patient.White HospitalIn the event this information is protected by the Federal Confidentiality of Alcohol and Drug Abuse Patient Records regulations: The Federal rules restrict any use of the information to criminally investigate or prosecute any alcohol or drug abuse patient.White HospitalIn the event this information is protected by the Federal Confidentiality of Alcohol and Drug Abuse Patient Records regulations: The Federal rules restrict any use of the information to criminally investigate or prosecute any alcohol or drug abuse patient.White HospitalIn the event this information is protected by the Federal Confidentiality of Alcohol and Drug Abuse Patient Records regulations: The Federal rules restrict any use of the information to criminally investigate or prosecute any alcohol or drug abuse patient.[facility] HospitalIn the event this information is protected by the Federal Confidentiality of Alcohol and Drug Abuse Patient Records regulations: The Federal rules restrict any use of the information to criminally investigate or prosecute any alcohol or drug abuse patient.White HospitalIn the event this information is protected by the Federal Confidentiality of Alcohol and Drug Abuse Patient Records regulations: The Federal rules restrict any use of the information to criminally investigate or prosecute any alcohol or drug abuse patient.White HospitalIn the event this information is protected by the Federal Confidentiality of Alcohol and Drug Abuse Patient Records regulations: The Federal rules restrict any use of the information to criminally investigate or prosecute any alcohol or drug abuse patient.[facility] HospitalIn the event this information is protected by the Federal Confidentiality of Alcohol and Drug Abuse Patient Records regulations: The Federal rules restrict any use of the information to criminally investigate or prosecute any alcohol or drug abuse patient.White HospitalIn the event this information is protected by the Federal Confidentiality of Alcohol and Drug Abuse Patient Records regulations: The Federal rules restrict any use of the information to criminally investigate or prosecute any alcohol or drug abuse patient.White HospitalIn the event this information is protected by the Federal Confidentiality of Alcohol and Drug Abuse Patient Records regulations: The Federal rules restrict any use of the information to criminally investigate or prosecute any alcohol or drug abuse patient.White HospitalIn the event this information is protected by the Federal Confidentiality of Alcohol and Drug Abuse Patient Records regulations: The Federal rules restrict any use of the information to criminally investigate or prosecute any alcohol or drug abuse patient.White HospitalIn the event this information is protected by the Federal Confidentiality of Alcohol and Drug Abuse Patient Records regulations: The Federal rules restrict any use of the information to criminally investigate or prosecute any alcohol or drug abuse patient.[facility] Reason for Visit (unrecogniz ed section and content) Reason Comments PT Eval Specialty Diagnoses / Procedures Referred By Contac t Referred To Contact [facility] Diagnoses Low back pain, unspecified back pain laterality, unspecified chronicity, unspecified whether sciatica present Acute pain of left shoulder Procedures CONSULT TO PHYSICAL THERAPY PHYSICAL THERAPY EVALUATION HIGH COMPLEX 45 MINS Jennifer Whitfield, ROSARIO.NEWSPAPER OR PERIODICAL EDITOR [address] [place] [address] [facility] [address] [address] Referral ID Status Reason Start Date Expiration Date V isits Requested Visits Authorized [id number] Closed Auto-Generate d Referral 03/05/2023 06/30/2023 1 1 Reason Comments Physical Therapy Specialty Diagnoses / Procedures Referred By Contac t Referred To Contact [facility] Diagnoses Chronic midline low back pain without sciatica Chronic neck pain Lateral epicondylitis, right elbow Neck pain Procedures PT REHAB FOLLOW UP ORDER THERAPEUTIC EXERCISES RE, EA 15 MIN. Jaguar Cook PA-C [address] [place] [address] 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-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 Reason Comments Abdominal Pain sharp abdominal pain right side last night Reason Comments Pain right shoulder pain x 1 week Reason Comments Pain Reason Comments Letter Reason Comments Physical Pain right shoulder pain Specialty Diagnoses / Procedures Referred By Karen rodriguez Referred To Contact [facility] Diagnoses Liver nodule K76.89 (ICD-10-CM) - Liver nodule Procedures MRI LIVER WO/W IVCON MRI ABDOMEN W/O & W/CONTRAST MATERIAL MRI LIVER WO/W IVCON Jaguar Cook PA-C [address] [place] [address] [facility] Referral ID Status Reason Start Date Expiration Date V isits Requested Visits Authorized [id number] Closed Auto-Generate d Referral 03/01/2022 04/30/2022 1 1 Reason Comments Appointment cancel appointment or February 22 Reason Onset Date Comments Refill Request 04/04/2022 Reason Comments PT Eval Patient Education Specialty Diagnoses / Procedures Referred By Contjuanita t Referred To Contact PHYSICAL THERAPY Diagnoses Acute pain of right shoulder Procedures CONSULT TO PHYSICAL THERAPY PHYSICAL THERAPY EVALUATION HIGH COMPLEX 45 MINS Jaguar Cook PA-C [address] [place] [address] [facility] [address] [place] [address] Referral ID Status Reason Start Date Expiration Date V isits Requested Visits Authorized [id number] Closed Auto-Generate d Referral 03/23/2022 07/31/2022 1 [...] liver Specialty Diagnoses / Procedures Referred [facility] Referred To Contact Diagnoses Nodule on liver Procedures CONSULT TO HEPATOLOGY OFFICE/OUTPATIENT [facility] MDM 60-74 MINUTES Jaguar Cook PA-C [address] [place] [address] Referral ID Status Reason Start Date Expiration Date V isits Requested Visits Authorized [id number] Closed PCP Requested Referral 03/28/2022 03/28/2023 1 [...] NEW RS PT SPINE Jaguar Cook PA-C [address] [place] [address] Fernanda Murphy, PT [address] [place] [address] Referral ID Status Reason Start Date Expiration Date V isits Requested Visits Authorized [id number] Pending Review 10/17/2022 01/15/2023 1 1 Reason Comments Appointment Reason Comments Information Reason Comments New CTS Pain CTS Specialty Diagnoses / Procedures Referred By Contac t Referred To Contact Orthopedics Diagnoses Right hand pain Right wrist pain Procedures CONSULT TO ORTHOPAEDICS OFFICE/OUTPATIENT [facility] 60-74 MINUTES Johnna Martinez PA-C [address] [place] [address] Referral ID Status Reason Start Date Expiration Date V isits Requested Visits Authorized [id number] Closed PCP Requested Referral 09/14/2022 09/14/2023 1 [...] EXERCISES RE, EA 15 MIN. Jennifer Whitfield APRN.NEWSPAPER OR PERIODICAL EDITOR [address] [place] [address] [facility] [place] [address] [place] [address] Referral ID Status Reason Start Date Expiration Date Visits Requested Visits Authorized [id number] Authorized PCP Requested Referral Auto-Generate d Referral 03/22/2023 06/22/2023 12 12 Reason Comments Blood Pressure Reason Onset Date Comments Refill Request 06/19/2023 Reason Comments Trauma Left shoulder pain x 1 weekStd testing, itching, some discharge Reason Comments Pain (Shoulder Pain) Shoulder pain x 1 w lac vieux and vomiting and diarrhea x 2 days Reason Comments Urinary Problem Frequency x 2 weeksL eft shoulder pain x 2 weeks Reason Comments Results hematuria Specialty Diagnoses / Procedures Referred By Contac t Referred To Contact [facility] Diagnoses Headache, unspecified headache type Concussion without loss of consciousness, subsequent encounter Procedures MRI BRAIN WO IVCON MRI BRAIN BRAIN STEM W/O CONTRAST MATERIAL Guillermo Sheffield MD [address] [place] [address] [place] [id number] Referral ID Status Reason Start Date Expiration Date V isits Requested Visits Authorized [id number] Closed Auto-Generate d Referral 04/04/2023 06/03/2023 1 1 Reason Comments Radiology US Specialty Diagnoses / Procedures Referred By Brianaac t Referred To Contact [facility] Diagnoses Abnormal mammogram Procedures US BREAST LTD RT US BREAST UNI REAL TIME WITH IMAGE LIMITED Nohelia Taylor APRN.NEWSPAPER OR PERIODICAL EDITOR [address] [place] [address] [facility] [address] [place] [address] Referral ID Status Reason Start Date Expiration Date V isits Requested Visits Authorized [id number] Closed Auto-Generate d Referral 12/11/2022 01/10/2024 1 [...] OFFICE/OUTPATIENT NEW HIGH MDM 60-74 MINUTES Yeison Ignacio, CONSUELO [address] [place] [address] Referral ID Status Reason Start Date Expiration Date V isits Requested Visits Authorized [id number] Closed PCP Requested Referral 07/26/2023 07/25/2024 1 1 Reason Comments Medication Request Reason Comments UTI Vaginal irritation 1 weekUrinary sx x 2 daysWants STD check Reason Comments Constipation X 1.5 wks states she is also having rectal bleeding Reason Comments Constipation Reason Onset Date Comments Refill Request 12/24/2023 Reason Comments Wellness Reason Comments Medication Question Reason Comments Trauma Right knee and left calf pain x 1 day Reason Comments STD Itching, discharge x today Reason Comments Consult Reason Comments injection for STD Injection for STD Reason Comments STD Std testing, itching , cramping, discharge x 1 week Reason Comments Hypertension Follow up Reason Comments Forms Form for ai conditio ner Reason Onset Date Comments Refill Request 03/28/2024 Reason Comments STD Check Reason Onset Date Comments Refill Request 04/29/2024 Reason Onset Date Comments Refill Request 05/11/2024 Reason Comments Abdominal Pain Reason Onset Date Comments Refill Request 05/29/2024 Reason Onset Date Comments Refill Request 06/09/2024 Reason Comments Eye Problem Poked in face right under left eye, having pain in left cheekbone x 2 days Reason Comments Insurance Authorization Reason Comments Dizziness R hand shaking x1 ho ur Reason Comments Radiology XR Reason Comments STD Discharge, odor x 3 days Reason Comments Insurance Authorization Reason Comments Results Mycoplasma hominis+ Reason Comments 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 Wa nts to establish with new provider. Reason Comments Follow Up Would like to discus s skin tag removal again. Care Teams (unrecognized sec tion and content) Anthropometrist Relationship Specialty Start Date End Date Jaguar Cook PA-C [address] [place] [address] PCP - General Family Practice 10/21/20 Anthropometrist Relationship Specialty Start Date End Date Jaguar Cook PA-C [address] [place] [address] PCP - General Family Practice 10/21/20 Anthropometrist Relationship Specialty Start Date End Date Jaguar Cook PA-C [address] [place] [address] PCP - General Family Practice 10/21/20 Anthropometrist Relationship Specialty Start Date End Date Jaguar Cook PA-C [address] [facility] [place] [address] PCP - General Family Practice 10/21/20 Anthropometrist Relationship Specialty Start Date End Date Jaguar Cook PA-C [address] [facility] [address] PCP - General Family Practice 10/21/20 Anthropometrist Relationship Specialty Start Date End Date Jaguar Cook PA-C [address] [place] [address] PCP - General Family Practice 10/21/20 Anthropometrist Relationship Specialty Start Date End Date Jaguar Cook PA-C [address] [facility] [place] [address] PCP - General Family Practice 10/21/20 Anthropometrist Relationship Specialty Start Date End Date Jaguar Cook PA-C [address] [facility] [place] [address] PCP - General Family Practice 10/21/20 Anthropometrist Relationship Specialty Start Date End Date Jaguar Cook PA-C [address] [facility] [place] [address] PCP - General Family Practice 10/21/20 Anthropometrist Relationship Specialty Start Date End Date Jaguar Cook PA-C [address] [facility] [place] [address] PCP - General Family Practice 10/21/20 Anthropometrist Relationship Specialty Start Date End Date Jaguar Cook PA-C [address] [facility] [place] [address] PCP - General Family Practice 10/21/20 Anthropometrist Relationship Specialty Start Date End Date Jaguar Cook PA-C [address] [facility] [place] [address] PCP - General Family Practice 10/21/20 Anthropometrist Relationship Specialty Start Date End Date Jaguar Cook PA-C [address] [facility] [place] [address] PCP - General Family Practice 10/21/20 Anthropometrist Relationship Specialty Start Date End Date Jaguar Cook PA-C [address] [facility] [place] [address] PCP - General Family Practice 10/21/20 Anthropometrist Relationship Specialty Start Date End Date Jaguar Cook PA-C [address] [facility] [place] [address] PCP - General Family Practice 10/21/20 Anthropometrist Relationship Specialty Start Date End Date Jaguar Cook PA-C [address] [facility] [place] [address] PCP - General Family Practice 10/21/20 Anthropometrist Relationship Specialty Start Date End Date Jaguar Cook PA-C [address] [facility] [place] [address] PCP - General Family Practice 10/21/20 Anthropometrist Relationship Specialty Start Date End Date Jaguar Cook PA-C [address] [facility] [place] [address] PCP - General Family Practice 10/21/20 Anthropometrist Relationship Specialty Start Date End Date Jaguar Cook PA-C [address] [facility] [place] [address] PCP - General Family Practice 10/21/20 Anthropometrist Relationship Specialty Start Date End Date Jaguar Cook PA-C [address] [facility] [place] [address] PCP - General Family Practice 10/21/20 Anthropometrist Relationship Specialty Start Date End Date Jaguar Cook PA-C [address] [facility] [place] [address] PCP - General Family Practice 10/21/20 Anthropometrist Relationship Specialty Start Date End Date Jaguar Cook PA-C [address] [facility] [place] [address] PCP - General Family Practice 10/21/20 Anthropometrist Relationship Specialty Start Date End Date Jaguar Cook PA-C [address] [facility] [place] [address] PCP - General Family Practice 10/21/20 Anthropometrist Relationship Specialty Start Date End Date Jaguar Cook PA-C [address] [facility] [place] [address] PCP - General Family Practice 10/21/20 Anthropometrist Relationship Specialty Start Date End Date Jaguar oCok PA-C [address] [facility] [place] [address] PCP - General Family Practice 10/21/20 Anthropometrist Relationship Specialty Start Date End Date Jaguar Cook PA-C [address] [facility] [place] [address] PCP - General Family Practice 10/21/20 Anthropometrist Relationship Specialty Start Date End Date Jaguar Cook PA-C [address] [facility] [place] [address] PCP - General Family Medicine 10/21/20 Anthropometrist Relationship Specialty Start Date End Date Jaguar Cook PA-C [address] [facility] [place] [address] PCP - General Family Medicine 10/21/20 Anthropometrist Relationship Specialty Start Date End Date Jaguar Cook PA-C [address] [facility] [place] [address] PCP - General Family Medicine 10/21/20 Anthropometrist Relationship Specialty Start Date End Date Jaguar Cook PA-C [address] [facility] [place] [address] PCP - General Family Medicine 10/21/20 Anthropometrist Relationship Specialty Start Date End Date Jaguar Cook PA-C [address] [facility] [place] [address] PCP - General Family Medicine 10/21/20 Anthropometrist Relationship Specialty Start Date End Date Jaguar Cook PA-C [address] [facility] [place] [address] PCP - General Family Medicine 10/21/20 Anthropometrist Relationship Specialty Start Date End Date Jaguar Cook PA-C [address] [facility] [place] [address] PCP - General Family Medicine 10/21/20 Anthropometrist Relationship Specialty Start Date End Date Jaguar Cook PA-C [address] [facility] [place] [address] PCP - General Family Medicine 10/21/20 Anthropometrist Relationship Specialty Start Date End Date Jaguar Cook PA-C [address] [facility] [place] [address] PCP - General Family Medicine 10/21/20 Anthropometrist Relationship Specialty Start Date End Date Jaguar Cook PA-C [address] [facility] [place] [address] PCP - General Family Medicine 10/21/20 Anthropometrist Relationship Specialty Start Date End Date Jaguar Cook PA-C [address] [facility] [place] [address] PCP - General Family Medicine 10/21/20 Anthropometrist Relationship Specialty Start Date End Date Jaguar Cook PA-C [address] [facility] [place] [address] PCP - General Family Medicine 10/21/20 Anthropometrist Relationship Specialty Start Date End Date Jaguar Cook PA-C [address] [facility] [place] [address] PCP - General Family Medicine 10/21/20 Anthropometrist Relationship Specialty Start Date End Date Jaguar Cook PA-C [address] [facility] [place] [address] PCP - General Family Medicine 10/21/20 Anthropometrist Relationship Specialty Start Date End Date Jaguar Cook PA-C [address] [facility] [place] [address] PCP - General Family Medicine 10/21/20 Anthropometrist Relationship Specialty Start Date End Date Jaguar Cook PA-C [address] [facility] [place] [address] PCP - General Family Medicine 10/21/20 Anthropometrist Relationship Specialty Start Date End Date Jaguar Cook PA-C [address] [facility] [place] [address] PCP - General Family Medicine 10/21/20 Anthropometrist Relationship Specialty Start Date End Date Jaguar Cook PA-C [address] [facility] [place] [address] PCP - General Family Medicine 10/21/20 Anthropometrist Relationship Specialty Start Date End Date Jaguar Cook PA-C 174 [facility] [place] [address] PCP - General Family Medicine 10/21/20 Anthropometrist Relationship Specialty Start Date End Date Jaguar Cook PA-C [address] [facility] [place] [address] PCP - General Family Medicine 10/21/20 Anthropometrist Relationship Specialty Start Date End Date Jaguar Cook PA-C [address] [facility] [place] [address] PCP - General Family Medicine 10/21/20 Anthropometrist Relationship Specialty Start Date End Date Jaguar Cook PA-C [address] [facility] [place] [address] PCP - General Family Medicine 10/21/20 Anthropometrist Relationship Specialty Start Date End Date Jaguar Cook PA-C [address] [facility] [place] [address] PCP - General Family Medicine 10/21/20 Anthropometrist Relationship Specialty Start Date End Date Jaguar Cook PA-C [address] [place] [address] PCP - General Family Medicine 10/21/20 Anthropometrist Relationship Specialty Start Date End Date Jaguar Cook PA-C [address] [place] [address] PCP - General Family Medicine 10/21/20 Anthropometrist Relationship Specialty Start Date End Date Jaguar Cook PA-C [address] [place] [address] PCP - General Family Medicine 10/21/20 Anthropometrist Relationship Specialty Start Date End Date Jaguar Cook PA-C [address] [place] [address] PCP - General Family Medicine 10/21/20 Anthropometrist Relationship Specialty Start Date End Date Jaguar Cook PA-C [address] [place] [address] PCP - General Family Medicine 10/21/20 Anthropometrist Relationship Specialty Start Date End Date Jaguar Cook PA-C [address] [place] [address] PCP - General Family Medicine 10/21/20 Anthropometrist Relationship Specialty Start Date End Date Jaguar Cook PA-C [address] [place] [address] PCP - General Family Medicine 10/21/20 Anthropometrist Relationship Specialty Start Date End Date Jaguar Cook PA-C [address] [place] [address] PCP - General Family Medicine 10/21/20 Anthropometrist Relationship Specialty Start Date End Date Jaguar Cook PA-C [address] [place] [address] PCP - General Family Medicine 10/21/20 Anthropometrist Relationship Specialty Start Date End Date Jaguar Cook PA-C [address] [place] [address] PCP - General Family Medicine 10/21/20 Anthropometrist Relationship Specialty Start Date End Date Jaguar Cook PA-C [address] [place] [address] PCP - General Family Medicine 10/21/20 Anthropometrist Relationship Specialty Start Date End Date Jaguar Cook PA-C [address] [place] [address] PCP - General Family Medicine 10/21/20 Anthropometrist Relationship Specialty Start Date End Date Jaguar Cook PA-C [address] [place] [address] PCP - General Family Medicine 10/21/20 Anthropometrist Relationship Specialty Start Date End Date Jaguar Cook PA-C [address] [place] [address] PCP - General Family Medicine 10/21/20 Anthropometrist Relationship Specialty Start Date End Date Jaguar Cook PA-C [address] [place] [address] PCP - General Family Medicine 10/21/20 Anthropometrist Relationship Specialty Start Date End Date Jaguar Cook PA-C [address] [facility] [place] [address] PCP - General Family Medicine 10/21/20 Anthropometrist Relationship Specialty Start Date End Date Jaguar Cook PA-C [address] [facility] [place] [address] PCP - General Family Medicine 10/21/20 Anthropometrist Relationship Specialty Start Date End Date Jaguar Cook PA-C [address] [facility] [place] [address] PCP - General Family Medicine 10/21/20 Anthropometrist Relationship Specialty Start Date End Date Jaguar Cook PA-C [address] [facility] [place] [address] PCP - General Family Medicine 10/21/20 Anthropometrist Relationship Specialty Start Date End Date Jaguar Cook PA-C [address] [facility] [place] [address] PCP - General Family Medicine 10/21/20 Anthropometrist Relationship Specialty Start Date End Date Jaguar Cook PA-C [address] [facility] [place] [address] PCP - General Family Medicine 10/21/20 Anthropometrist Relationship Specialty Start Date End Date Jaguar Cook PA-C [address] [facility] [place] [address] PCP - General Family Medicine 10/21/20 Anthropometrist Relationship Specialty Start Date End Date Jaguar Cook PA-C [address] [facility] [place] [address] PCP - General Family Medicine 10/21/20 Anthropometrist Relationship Specialty Start Date End Date Jaguar Cook PA-C [address] [place] [address] PCP - General Family Medicine 10/21/20 Anthropometrist Relationship Specialty Start Date End Date Jaguar Cook PA-C [address] [place] [address] PCP - General Family Medicine 10/21/20 Anthropometrist Relationship Specialty Start Date End Date Jaguar Cook PA-C [address] [place] [address] PCP - General Family Medicine 10/21/20 Anthropometrist Relationship Specialty Start Date End Date Jaguar Cook PA-C [address] [place] [address] PCP - General Family Medicine 10/21/20 Anthropometrist Relationship Specialty Start Date End Date Jaguar Cook PA-C [address] [place] [address] PCP - General Family Medicine 10/21/20 Anthropometrist Relationship Specialty Start Date End Date Jaguar Cook PA-C [address] [place] [address] PCP - General Family Medicine 10/21/20 Anthropometrist Relationship Specialty Start Date End Date Jaguar Cook PA-C [address] [place] [address] PCP - General Family Medicine 10/21/20 Anthropometrist Relationship Specialty Start Date End Date Jaguar Cook PA-C [address] [place] [address] PCP - General Family Medicine 10/21/20 Anthropometrist Relationship Specialty Start Date End Date Jaguar Cook PA-C [address] [facility] [place] [address] PCP - General Family Medicine 10/21/20 Anthropometrist Relationship Specialty Start Date End Date Jaguar Cook PA-C [address] [facility] [place] [address] PCP - General Family Medicine 10/21/20 Anthropometrist Relationship Specialty Start Date End Date Jaguar Cook PA-C [address] [facility] [place] [address] PCP - General Family Medicine 10/21/20 Anthropometrist Relationship Specialty Start Date End Date Jaguar Cook PA-C [address] [facility] [place] [address] PCP - General Family Medicine 10/21/20 Anthropometrist Relationship Specialty Start Date End Date Jaguar Cook PA-C [address] [facility] [place] [address] PCP - General Family Medicine 10/21/20 Anthropometrist Relationship Specialty Start Date End Date Jaguar Cook PA-C [address] [facility] [place] [address] PCP - General Family Medicine 10/21/20 Anthropometrist Relationship Specialty Start Date End Date Jaguar Cook PA-C [address] [facility] [place] [address] PCP - General Family Medicine 10/21/20 Anthropometrist Relationship Specialty Start Date End Date Jaguar Cook PA-C [address] [place] [address] PCP - General Family Medicine 10/21/20 Anthropometrist Relationship Specialty Start Date End Date Jaguar Cook PA-C [address] [place] [address] PCP - General Family Medicine 10/21/20 Anthropometrist Relationship Specialty Start Date End Date Jaguar oCok PA-C [address] [place] [address] PCP - General Family Medicine 10/21/20 Anthropometrist Relationship Specialty Start Date End Date Jaguar Cook PA-C [address] [place] [address] PCP - General Family Medicine 10/21/20 Anthropometrist Relationship Specialty Start Date End Date Jaguar Cook PA-C [address] [place] [address] PCP - General Family Medicine 10/21/20 Anthropometrist Relationship Specialty Start Date End Date Jaguar Cook PA-C [address] [place] [address] PCP - General Family Medicine 10/21/20 Anthropometrist Relationship Specialty Start Date End Date Jaguar Cook PA-C [address] [place] [address] PCP - General Family Medicine 10/21/20 Anthropometrist Relationship Specialty Start Date End Date Mignon Orozco, GAME PROGRAMMER.NEWSPAPER OR PERIODICAL EDITOR [address] [place] [address] PCP - General Family Medicine 07/22/24 Anthropometrist Relationship Specialty Start Date End Date Mignon Orozco APRN.RIZWAN [address] [place] [address] PCP - General Family Medicine 07/22/24 Anthropometrist Relationship Specialty Start Date End Date Mignon Orozco APRN.NEWSPAPER OR PERIODICAL EDITOR [address] [place], [place] [address] PCP - General Family Medicine 07/22/24 FOR RECORDS PERTAINING TO PATIENTS WHO ARE [...] BE BASED ON THE PRIMARY CLINICAL RECORDS. [employer] [facility]. provides no warranty or guarantee of the accuracy or completeness of information in this document.
--- NOTE | 2024-07-26 19:56 | ED.VIS.LOWEX ---
HPI History of Present Illness HPI Narrative: Patient presents with left knee injury that occurred last night. Patient states she fell and landed on her anterior left knee. Patient states that today she went to take a nap and when her knee moved laterally, she had worsening pain. Patient describes her pain as sharp and burning. Patient states nothing seems to help with it. Patient states she is able to ambulate on her left leg. Patient admits to some numbness and tingling down her left leg. Patient denies any weakness. Patient denies any other injuries. Chief Complaint: Lower Extremity Injury Informant: patient Occured/Mechanism Mechanism/Context: Yes fall Onset/Context/Timing Onset: Yesterday Context: Sudden Onset Timing: Continuous Quality of Pain: Sharp and Burning Location: Left knee Worsened by: Certain movements Relieved by: Nothing Associated Symptoms Associated Symptoms: Positive for Parasthesia; Negative for Weakness or Loss of Funtion [facility] Medical History History of hypercholesterolemia Panic attacks Anxiety Hypertension Home Medications ?Medication ?Instructions ?Recorded ?Last Taken ?Type metoprolol tartrate 50 mg tablet 50 mg PO BID 09/11/13 11/18/20 History simvastatin 10 mg tablet 10 mg PO DAILY 01/21/19 11/18/20 History albuterol sulfate 90 mcg/actuation 2 puff inhalation Q6H PRN Sob &/Or 11/18/20 11/18/20 History aerosol inhaler Wheezing fluticasone propionate 50 2 spray NASAL DAILY ALLERGIES 11/18/20 11/18/20 History mcg/actuation nasal spray,suspension omeprazole 20 mg tablet,delayed 20 mg PO DAILY 11/18/20 11/18/20 History release albuterol sulfate 90 mcg/actuation 2 puff inhalation Q4H PRN PRN 09/26/22 Unknown Rx aerosol inhaler (Ventolin HFA) Wheezing ##1 cyclobenzaprine 10 mg tablet 10 mg PO TID PRN PRN muscle spasm 12/10/23 Unknown History ibuprofen 800 mg tablet 800 mg PO Q8H PRN PRN pain 12/10/23 Unknown History ondansetron 4 mg disintegrating 4 mg PO Q6H PRN PRN nausea/vomiting 12/10/23 Unknown History tablet oxybutynin chloride 5 mg 5 mg PO DAILY 12/10/23 Unknown History tablet,extended release 24 hr polyethylene glycol 3350 17 17 g PO DAILY 12/10/23 Unknown History gram/dose oral powder amoxicillin 875 mg-potassium 1 tab PO BID #20 tabs 01/04/24 Unknown Rx clavulanate 125 mg tablet Allergy/AdvReac Type Severity Reaction Status Date / Time No Known Allergies Allergy Verified 07/26/24 19:19 Family History Other CAD (coronary artery disease) Surgical History Hx of tubal ligation Hx of cholecystectomy Social History household members: none Smoking Status: Never smoker substance use type: does not use ROS ROS ED Constitutional Constitutional ED: Denies chills or fever(s) Eyes Eyes: Denies blurry vision or change in vision ENT ENT ED: Denies rhinorrhea or sore throat Cardiovascular Cardiovascular: Denies chest pain or palpitations Respiratory/Chest Respiratory/Chest: Denies cough or dyspnea Gastrointestinal Gastrointestinal: Denies nausea or vomiting Genitourinary Genitourinary ED: Denies dysuria or hematuria Musculoskeletal Musculoskeletal: Denies back pain or neck pain Integumentary Denies abscess or rash Neurologic Neurologic: Denies headache(s) or weakness Allergic/Immunologic Allergic/Immunologic ED: Denies mouth swelling or urticaria EXAM Physical Exam Const Vital Signs: 07/26/24 19:18 Temperature 97.8 F Temperature Source Oral Pulse Rate 81 Respiratory Rate 16 Blood Pressure 152/100 H Blood Pressure Mean 117 Pulse Ox 98 Oxygen Delivery Method Room Air Positive well nourished and well developed General Appearance ED: well developed and NAD HEENT Reports moist mucous membranes Neck full ROM and supple Extremity Extremity Narrative: There is tenderness to palpation over the anterior aspect of the left knee. There is no obvious deformity noted. There is mild edema. There is no ecchymosis. Range of motion was limited in all motions of the left knee secondary to pain. Extensor mechanism is intact. Strength is 5/5 bilateral in the lower extremities. There are no sensory deficits noted. Pedal pulses are equal bilaterally. Neuro oriented x3, CN's II-XII intact bilaterally, moves all extremities and no sensory deficits noted Sensorium / Orientation: alert Motor Exam: strength 5/5 throughout Psych mental status grossly normal MDM MDM MDM Narrative Medical decision making narrative: Differential diagnosis includes patella fracture, sprain, and contusion. X-rays of the left knee will be obtained to assess for fracture and joint effusion. Treatment and Re-Evaluation Narrative: Patient left prior to obtaining her x-rays. Patient left without telling anyone. Discharge Plan Triage Chief Complaint: Lower Extremity Injury ED Provider: Jimbo Whittaker Dx/Rx/DC Orders Clinical Impression: Contusion of left knee, initial encounter, Fall Instructions: ED Soft Tissue Contusion Prescriptions: No Action metoprolol tartrate 50 MG tablet 50 mg PO BID Patient Comments: BP/HEART MEDICATION simvastatin 10 tablet 10 mg PO DAILY omeprazole 20 MG tablet,delayed release (DR/EC) 20 mg PO DAILY albuterol sulfate 1 PUFF inhaler 2 puff INHALATION Q6H PRN (Reason: Sob &/Or Wheezing) Patient Comments: Inhale 2 Puffs as instructed every 6 hours as needed. fluticasone propionate 1 SPRAY spray,suspension 2 spray NASAL DAILY albuterol sulfate [Ventolin HFA] 90 mcg/actuation HFA aerosol inhaler 2 puff inhalation Q4H PRN PRN (Reason: Wheezing) Qty: 1 0RF cyclobenzaprine 10 mg tablet 10 mg PO TID PRN PRN (Reason: muscle spasm) ibuprofen 800 mg tablet 800 mg PO Q8H PRN PRN (Reason: pain) oxybutynin chloride 5 mg tablet extended release 24hr 5 mg PO DAILY polyethylene glycol 3350 17 gram/dose powder 17 g PO DAILY ondansetron 4 mg tablet,disintegrating 4 mg PO Q6H PRN PRN (Reason: nausea/vomiting) amoxicillin-pot clavulanate 875-125 mg tablet 1 tab PO BID Qty: 20 0RF Primary Care Provider: Jaguar Cook Referrals: Jaguar Cook PA [Primary Care Provider] - 1-2 Weeks Print Language: Irish Disposition Disposition: Elopement Discharge Date/Time: 07/26/24 20:07
== END 2024-07-26 20:07 | disposition left against medical advice (07) ==
LOC: ED 19:35
PROVIDERS: Emergency Provider Emergency Medicine; PCP Physician Assistant; Visit Provider Emergency Medicine
DX: S80.02XA Contusion of left knee, initial encounter (principal); X58.XXXA Exposure to other specified factors, initial encounter
CPT/HCPCS: 99282

== ENCOUNTER 2024-08-31 01:46 | Emergency (ER) | payer MEDICAID, SELFPAY ==
[2024-08-31 01:46] VITALS: BP 169/100; PULSE 67; RESP 16; TEMP 35.6; O2SAT 99; BMI 30.6
--- NOTE | 2024-08-31 02:05 | EDS_ITS ---
HPI HPI - GI History of Present Illness Chief Complaint: Abd Pain Informant: patient Narrative Narrative: Healthy 48-year-old female started having vomiting and watery nonbloody nonmelanotic diarrhea about 24 hours ago. States she thought she had food poisoning. She states it has improved some, but still having diarrhea, no more vomiting for the last 5 or 6 hours, but she woke up about an hour ago with severe sharp crampy pain that seems to be focused in her upper abdomen but seems relatively diffuse. History of prior cholecystectomy remotely. No recent antibiotics. This occurred a day after Thanksgiving dinner she has been around no known sick contacts nor she traveled out of the area. No known fevers or chills. [facility] Medical History History of hypercholesterolemia Panic attacks Anxiety Hypertension Home Medications ?Medication ?Instructions ?Recorded ?Last Taken ?Type metoprolol tartrate 50 mg tablet 50 mg PO BID 09/11/13 11/18/20 History simvastatin 10 mg tablet 10 mg PO DAILY 01/21/19 11/18/20 History albuterol sulfate 90 mcg/actuation 2 puff inhalation Q6H PRN Sob &/Or 11/18/20 11/18/20 History aerosol inhaler Wheezing fluticasone propionate 50 2 spray NASAL DAILY ALLERGIES 11/18/20 11/18/20 History mcg/actuation nasal spray,suspension omeprazole 20 mg tablet,delayed 20 mg PO DAILY 11/18/20 11/18/20 History release albuterol sulfate 90 mcg/actuation 2 puff inhalation Q4H PRN PRN 09/26/22 Unknown Rx aerosol inhaler (Ventolin HFA) Wheezing ##1 cyclobenzaprine 10 mg tablet 10 mg PO TID PRN PRN muscle spasm 12/10/23 Unknown History ibuprofen 800 mg tablet 800 mg PO Q8H PRN PRN pain 12/10/23 Unknown History ondansetron 4 mg disintegrating 4 mg PO Q6H PRN PRN nausea/vomiting 12/10/23 Unknown History tablet oxybutynin chloride 5 mg 5 mg PO DAILY 12/10/23 Unknown History tablet,extended release 24 hr polyethylene glycol 3350 17 17 g PO DAILY 12/10/23 Unknown History gram/dose oral powder dicyclomine 10 mg capsule 20 mg (2 x 10 mg) PO Q6H PRN PRN 08/31/24 Unknown Rx abdominal discomfort #20 CAPSULES lisinopril 20 mg tablet 20 mg PO BID 08/31/24 Unknown History ondansetron 8 mg disintegrating 8 mg PO Q8H PRN nausea and 08/31/24 Unknown Rx tablet vomiting #20 tabs Allergy/AdvReac Type Severity Reaction Status Date / Time No Known Allergies Allergy Verified 07/26/24 19:19 Family History Other CAD (coronary artery disease) Surgical History Hx of tubal ligation Hx of cholecystectomy Social History household members: none Smoking Status: Never smoker substance use type: does not use ROS ROS ED Constitutional Constitutional ED: Reports malaise; Denies chills or fever(s) Eyes Eyes: Denies change in vision or diplopia ENT ENT ED: Denies rhinorrhea or sore throat Cardiovascular Cardiovascular: Denies chest pain or palpitations Respiratory/Chest Respiratory/Chest: Denies cough or dyspnea Gastrointestinal Gastrointestinal: Reports abdominal pain, diarrhea, nausea and vomiting; Denies hematemesis, hematochezia or melena Genitourinary Genitourinary ED: Denies dysuria or hematuria Musculoskeletal Musculoskeletal: Denies back pain or neck pain Integumentary Denies abscess or rash Neurologic Neurologic: Denies headache(s), paresthesias or weakness EXAM Physical Exam Const Vital Signs: 08/31/24 01:46 08/31/24 03:46 08/31/24 05:00 Temperature 96.1 F L Temperature Source Oral Pulse Rate 67 70 72 Respiratory Rate 16 16 18 Blood Pressure 169/100 H 136/93 H 142/105 H Blood Pressure Mean 123 107 117 Pulse Ox 99 98 98 Oxygen Delivery Method Room Air Room Air Room Air Positive well nourished and well developed General Appearance ED: well developed and NAD HEENT Reports moist mucous membranes normocephalic and atraumatic Eyes PERRL and EOMs intact bilaterally Neck full ROM and supple Resp normal respiratory effort and clear to auscultation bilaterally Cardio regular rate, regular rhythm and no murmurs GI non-distended GI Narrative: Subjectively tender diffusely, maybe worse throughout the upper abdomen. No [place]. No jaundice. No guarding or rebound. Soft abdomen. Auscultation: hyperactive bowel sounds Palpation: soft Back/Spine no CVA tenderness General Back: other FROM Extremity normal to inspection General Extremety ED: Negative for edema, pulses abnormal or tenderness General Extremity: Negative for edema or pulses abnormal Neuro oriented x3, CN's II-XII intact bilaterally and no sensory deficits noted Sensorium / Orientation: awake and alert Motor Exam: strength 5/5 throughout Psych Mood & Affect: anxious Skin no rashes or lesions noted and no wounds MDM MDM MDM Narrative Medical decision making narrative: Patient states she think she has food poisoning. I agree this is probably gastroenteritis, and now she seems like she is having bowel spasms. Also in the differential diverticulitis, noninfectious reasons to have colitis. Started by treating her symptoms with Reglan, Toradol, hyoscyamine, and obtaining labs including liver enzymes and lipase. Her labs show a leukocytosis, but are otherwise unremarkable. Given this, and her diffuse pain, possibility of infectious colitis, obtained a CT. I reviewed the images and the report which I agree with, it is negative for any acute. Given this I think she can treat herself supportively with nausea and pain medications and follow-up with her doctor after the weekend if her symptoms persist to return to the ER. The medication she was given above really helped transiently but then she was in more discomfort, so she will be given a dicyclomine prior to discharge. She did not provide a stool specimen here for us to send for testing. Will send her w [facility] supplies and a prescription for enteric bacterial panel to be obtained as an outpatient. Lab Data Attestation: I reviewed the patient's lab results. Labs: Laboratory Results - last 24 hr 08/31/24 01:52 WBC 15.3 H RBC 4.88 Hgb 14.8 Hct 44.3 MCV 90.8 MCH 30.3 MCHC 33.4 RDW Std Deviation 43.4 RDW Coeff of Shazia 13.1 Plt Count 305 MPV 10.6 Immature Gran % (Auto) 0.500 Neut % (Auto) 78.4 H Lymph % (Auto) 14.9 L Pitkin % (Auto) 4.5 Eos % (Auto) 1.4 Baso % (Auto) 0.3 Absolute Neuts (auto) 12.0 H Absolute Lymphs (auto) 2.27 Nucleated RBC % 0 Sodium 139 Potassium 3.7 Chloride 107 Carbon Dioxide 23.0 Anion Gap 9 BUN 13 Creatinine 0.80 Estim Creat Clear Calc 87.11 Est GFR (MDRD) Af Amer 100 Est GFR (MDRD) Non-Af 82 BUN/Creatinine Ratio 16.4 Glucose 157 H Calcium 8.9 Total Bilirubin 0.50 AST 9 L ALT 16 Alkaline Phosphatase 73 Total Protein 7.9 Albumin 3.8 Globulin 4.1 Albumin/Globulin Ratio 0.9 Lipase 34 Radiography Diagnostic Testing: Clinical Impression(s) from Imaging Studies Abdomen/Pelvis CT 08/31/24 03:14 IMPRESSION: No CT evidence of acute intra-abdominal disease. Electronically Signed: Charlotte Uribe MD at 5:01 EST Reading Location ID and State: [address] [place] [address] , Service support , Discharge Plan Triage Chief Complaint: Abd Pain ED Provider: Jonah Owens Dx/Rx/DC Orders Clinical Impression: Gastroenteritis Instructions: Viral Gastroenteritis Prescriptions: New dicyclomine 10 mg capsule 20 mg PO Q6H PRN PRN (Reason: abdominal discomfort) Qty: 20 0RF ondansetron 8 mg tablet,disintegrating 8 mg PO Q8H PRN (Reason: nausea and vomiting) Qty: 20 0RF No Action metoprolol tartrate 50 MG tablet 50 mg PO BID Patient Comments: BP/HEART MEDICATION simvastatin 10 tablet 10 mg PO DAILY omeprazole 20 MG tablet,delayed release (DR/EC) 20 mg PO DAILY albuterol sulfate 1 PUFF inhaler 2 puff INHALATION Q6H PRN (Reason: Sob &/Or Wheezing) Patient Comments: Inhale 2 Puffs as instructed every 6 hours as needed. fluticasone propionate 1 SPRAY spray,suspension 2 spray NASAL DAILY albuterol sulfate [Ventolin HFA] 90 mcg/actuation HFA aerosol inhaler 2 puff inhalation Q4H PRN PRN (Reason: Wheezing) Qty: 1 0RF cyclobenzaprine 10 mg tablet 10 mg PO TID PRN PRN (Reason: muscle spasm) ibuprofen 800 mg tablet 800 mg PO Q8H PRN PRN (Reason: pain) oxybutynin chloride 5 mg tablet extended release 24hr 5 mg PO DAILY polyethylene glycol 3350 17 gram/dose powder 17 g PO DAILY ondansetron 4 mg tablet,disintegrating 4 mg PO Q6H PRN PRN (Reason: nausea/vomiting) lisinopril 20 mg tablet 20 mg PO BID Other Ambulatory Orders: ENTERIC PATHOGEN PANEL STOOL (Routine) Timeframe: 3 Days Facility: [facility] - Location: Laboratory Ordered By: Dr. Jonah Owens Primary Care Provider: Jaguar Cook Referrals: Jaguar Cook PA [Primary Care Provider] - 3-5 Days if not improving Print Language: Kyrgyz Disposition Disposition: Home, Self Care
[2024-08-31 02:11] LABS: Absolute Lymphocyte Count 2.27 X10^3/uL (0.83-4.51); Basophil# 0.04 X10^3/uL; Basophil% 0.3 % (0-1); Eosinophil# 0.21 X10^3/uL; Eosinophils% 1.4 % (0-5); Hematocrit 44.3 % (37-47); Hemoglobin 14.8 g/dL (12.0-15.0); Lymphocyte # 2.27 X10^3/ul (0.83-4.51); Lymphocyte % 14.9 % (19-41); Mean Corp Hgb Conc 33.4 g/dL (32-36); Mean Corpuscular Hgb 30.3 pg (27.0-32.0); Mean Corpuscular Volume 90.8 fL (81-99); Mean Platelet Vol. 10.6 fl (6.2-12.0); Monocyte# 0.68 X10^3/uL; Monocyte% 4.5 % (0-10); NRBC Flagged by Analyzer 0 % (0-5); Neutrophil # 11.99 X10^3/uL (2.7-7.7); Neutrophil % 78.4 % (47-70); Platelet Count 305 K/mm3 (150-450); RBC Distribution Width CV 13.1 % (11.6-14.6); RBC Distribution Width SD 43.4 fl (35.1-43.9); Red Blood Count 4.88 M/mm3 (4.2-5.4); White Blood Count 15.3 K/mm3 (4.4-11.0)
[2024-08-31] MEDS: Ketorolac 30 MG/ML Syringe IV (02:12)
[2024-08-31] MEDS: Metoclopramide 10 MG/2 ML Vial 5 MG IV (02:13)
[2024-08-31] MEDS: Hyoscyamine Sulfate 0.125 MG Tablet 0.25 MG SL (02:31)
[2024-08-31 02:36] LABS: ALB/GLOB Ratio 0.9 RATIO (0.9-2.4); AST(SGOT) 9 U/L (15-37); Alanine Aminotransfer ALT/SGPT 16 U/L (13-56); Albumin, Serum 3.8 g/dL (3.2-5.0); Alkaline Phosphatase 73 U/L (45-117); Anion Gap 9 (5-15); BUN 13 mg/dL (7-18); BUN/Creat Ratio 16.4 RATIO (10-20); Calcium,Total 8.9 mg/dL (8.5-10.1); Chloride 107 mmol/L (98-107); EST Glomerular Filtration Rate 82 mL/min (>60); Est Glom Filt Rate - Afr Amer 100 mL/min (>60); Estimated Creatinine Clearance 87.11 ml/min; Globulin 4.1 g/dL (2.2-4.2); Glucose 157 mg/dL (74-106); Lipase 34 U/L (13-75); Potassium 3.7 mmol/L (3.5-5.1); Protein, Total 7.9 g/dL (6.4-8.2); Sodium Level 139 mmol/L (136-145)
--- NOTE | 2024-08-31 03:14 | CT_ITS ---
STUDY: CT ABDOMEN AND PELVIS WITH CONTRAST REASON FOR EXAM: Female, 48 years old patient with diffuse abdominal pain. RADIATION DOSAGE (If Supplied By Facility): CTDIvol = ( 14.81 ) mGy, DLP = ( 1114.55 ) mGycm TECHNIQUE: Transaxial images were obtained from the dome of the diaphragm to the symphysis pubis without oral contrast. 100 mL of IV Isovue-370 was administered. Sagittal and coronal images were reconstructed. Individualized dose optimization techniques were used for this CT. COMPARISON: CT of abdomen and pelvis dated March 14, 2017. FINDINGS: The visualized lung bases are unremarkable. The visualized portions of the heart are within normal limits. Normal liver. There is non-visualization of the gallbladder, which may be secondary to either contraction or a prior cholecystectomy. Normal spleen. Normal pancreas. Normal bilateral adrenal glands. Normal right kidney. Normal left kidney. Normal visualized stomach. There is no obvious dilated bowel, ascites or pneumoperitoneum. Small bowel has a grossly normal appearance. The descending colon is not distended. Stool and/or gas is visible throughout the colon. There is non-visualization of the appendix. Normal abdominal aorta. Normal inferior vena cava. Normal retroperitoneum. Normal urinary bladder. Normal visualized uterus. Patient has an IUD. Normal abdominal wall. Normal osseous structures. CT/Abdomen/Pelvis W IV Cont ONLY IMPRESSION: No CT evidence of acute intra-abdominal disease. Electronically Signed: Charlotte Uribe MD at 5:01 EST ,
[2024-08-31 03:46] VITALS: BP 136/93; PULSE 70; RESP 16; O2SAT 98
[2024-08-31 05:00] VITALS: BP 142/105; PULSE 72; RESP 18; O2SAT 98
[2024-08-31] MEDS: Dicyclomine 10 MG Capsule 20 MG PO (05:12)
[2024-08-31] MEDS: traMADol 50 MG Tablet PO (05:13)
[2024-08-31 05:17] VITALS: BP 142/105; PULSE 88; RESP 16; TEMP 36.6; O2SAT 98
== END 2024-08-31 05:22 | disposition home or self-care (01) ==
PROVIDERS: Emergency Provider Emergency Medicine; PCP Physician Assistant; Visit Provider Emergency Medicine
DX: K52.9 Noninfective gastroenteritis and colitis, unspecified (principal); E78.00 Pure hypercholesterolemia, unspecified; I10 Essential (primary) hypertension; Z79.51 Long term (current) use of inhaled steroids; Z79.899 Other long term (current) drug therapy
CPT/HCPCS: 74177; 80053; 83690; 85025; 96374; 96376; 99284; Q9967; A4216